=== PATIENT | female | born 1945 | race Caucasian/White ===

== ENCOUNTER → 2016-08-11 | Outpatient (CLI) | payer MEDICARE, OTHER ==
[~2016-08-11] MED LIST: CHOL4PAC16 PO; EST.625T PO; FOLI0.4T2 PO; LAMO100T69 PO; LAMO150T3 PO; LAMO200T14 PO; PHEN-633 PO
--- OUTSIDE RECORDS SUMMARY | 2016-08-11 14:31 | XMS REPORT | Continuity of Care Document ---
Author Author [facility] Organization [facility] Address Unknown Phone Unavailable Care Team Providers Care Escalator Installer Name Role Phone Ruma Zepeda PCP [phone] Source Comments Some departments are not documenting in the electronic medical record. If you do not see the information that you expected, contact Release of Information in the Health Information Management department at [phone] for further assistance in locating additional records.[facility] Active Allergies and Adverse Reactions No Known Allergies Current Medications Prescription Sig. Disp. Refills Start End Date Status Date folic acid 400 mcg tablet Take 800 mcg by mouth Active daily. lamoTRIgine XR(+) Take 250 mg by mouth Active (LAMICTAL XR) 250 mg daily. tablet acetaminophen(+) 650 mg Take 1 Tab by mouth every 30 Tab 08/16/19 Active tablet 4 hours as needed. 13 vitamins, multi Take 1 Tab by mouth 08/16/19 Active w/minerals 27-0.4 mg Tab daily. 13 meclizine (ANTIVERT) 25 Take 25 mg by mouth as Active mg tablet Needed. PHENYTOIN SODIUM EXTENDED Take by mouth. Take 400 Active (DILANTIN PO) mg for two days and then 300 mg for one day and then back to 400 mg.etc. Active Problems Problem Noted Date Pancytopenia ([facility]) 09/07/2012 Seizures ([facility]) 09/07/2012 Pituitary adenoma ([facility]) 09/01/2012 Overview: S/p resection of pituitary adenoma Pituitary tumor 08/13/2012 Malnutrition of moderate degree ([facility]) 08/13/2012 SIADH (syndrome of inappropriate ADH production) ([facility]) 08/13/2012 Depression 08/13/2012 Leukopenia 08/13/2012 Social History Tobacco Use Types Packs/Day Years Used Date Never Smoker Smokeless Tobacco: Never Used Alcohol Use Drinks/Week oz/Week Comments No Last Filed Vital Signs Vital Sign Reading Time Taken Blood Pressure 103/73 04/03/2015 11:51 AM CDT Pulse 123 04/03/2015 11:51 AM CDT Temperature 37.3 C (99.1 F) 04/09/2013 1:12 PM CDT Respiratory Rate - - Height 1.651 m (5' 5") 04/01/2016 9:39 AM CDT Weight 49.896 kg (110 lb) 04/01/2016 9:39 AM CDT Body Mass Index 18.31 04/01/2016 9:39 AM CDT Oxygen Saturation 100% 09/06/2012 11:27 AM CDT Plan of Care Health Maintenance Due Date Last Done Comments Hepatitis C Screening 1945 Physical (Comprehensive) 1951 Exam Pertussis Vaccine 1955 Tetanus Vaccine 1961 Breast Cancer Screening 1984 Colorectal Cancer 1994 Screening Shingles Vaccine 2004 Osteoporosis Screening 2009 Prevnar/Pneumovax (#1) 2009 Influenza Vaccine 02/12/2016 Results from Last 3 Months Not on file
--- NOTE | 2016-08-11 18:50 | Diagnostic Imaging Report ---
Three views of the lumbar spine. INDICATION: Low back pain. FINDINGS: There is minimal retrolisthesis of L5 over S1. The vertebral body heights are preserved. The discs demonstrate significant disc height loss at L4-L5, L5-S1 and to a lesser extent at the upper and mid lumbar spine levels. There are mild anterior osteophytes at all levels. No significant posterior osteophytes are seen. Right hip replacement prosthesis is seen. Minimal degenerative sclerotic changes in the SI joints noted. IMPRESSION: Advanced disc degenerative disease worse in the lower lumbar spine. Dictated by: Dictated on workstation # [id number]
--- NOTE | 2016-08-11 19:02 | Diagnostic Imaging Report ---
Three views of the sacrum and coccyx. INDICATION: Low back pain. FINDINGS: There is satisfactory alignment at the SI joints. Minimal degenerative sclerotic changes seen. Prominent degenerative changes in the lower lumbar spine noted. There is a right hip replacement. IMPRESSION: Mild degenerative changes in the SI joints. Significant degenerative changes in the lower lumbar spine. Dictated by: Dictated on workstation # [id number]
== END ==
LOC: RAD 14:27
PROVIDERS: ATTEND Nurse Practitioner Family
DX: M54.5 Low back pain (principal)
CPT/HCPCS: 72100; 72220

== ENCOUNTER 2016-11-04 09:24 | Outpatient (RCR) | payer MEDICARE, OTHER ==
[2016-11-04 09:39] LABS: BASOPHILS % (AUTO) 2 % (0-10); EOSINOPHILS % (AUTO) 1 % (0-10); LYMPHOCYTES # (AUTO) 0.7 X 10^3 (1.0-4.0); LYMPHOCYTES % (AUTO) 44 % (12-44); MEAN CORPUSCULAR HEMOGLOBIN 30 PG (25-34); MEAN CORPUSCULAR HGB CONC 34 G/DL (32-36); MEAN CORPUSCULAR VOLUME 89 FL (80-99); MEAN PLATELET VOLUME 8.8 FL (7.4-10.4); MONOCYTES # (AUTO) 0.4 X 10^3 (0.0-1.0); MONOCYTES % (AUTO) 28 % (0-12); NEUTROPHILS # (AUTO) 0.4 X 10^3 (1.8-7.8); NEUTROPHILS % (AUTO) 25 % (42-75); PLATELET COUNT 172 10^3/uL (130-400); RED CELL DISTRIBUTION WIDTH 14.3 % (10.0-14.5); WHITE BLOOD COUNT 1.5 10^3/uL (4.3-11.0)
[2016-11-04 10:02] LABS: ALANINE AMINOTRANSFERASE 8 U/L (0-55); ALBUMIN 3.9 G/DL (3.2-4.5); ANION GAP 10 MMOL/L (5-14); ASPARTATE AMINO TRANSFERASE 17 U/L (5-34); BILIRUBIN,TOTAL 0.3 MG/DL (0.1-1.0); BLOOD UREA NITROGEN 18 MG/DL (7-18); BUN/CREATININE RATIO 22; CALCIUM 8.9 MG/DL (8.5-10.1); CARBON DIOXIDE 24 MMOL/L (21-32); CHLORIDE 101 MMOL/L (98-107); CREATININE SERUM 0.82 MG/DL (0.60-1.30); GFR ESTIMATED > 60; GLUCOSE 131 MG/DL (70-105); LACTATE DEHYDROGENASE 176 U/L (125-220); POTASSIUM 3.7 MMOL/L (3.6-5.0); SODIUM 135 MMOL/L (135-145); TOTAL PROTEIN 9.1 G/DL (6.4-8.2)
[2016-11-04 11:07] LABS: PEP REPORT SEE PATH REPORT
[2016-11-05 03:41] LABS: LIGHT CHAIN KAPPA SERUM QUANT 129.22 mg/L (3.30-19.40); LIGHT CHAIN LAMBDA SERUM QUANT 47.67 mg/L (5.71-26.30)
[2016-11-09 11:32] LABS: CLIN PATHOLOGY REPORT FOOTNOTE; SERUM PROTEIN ELEC DETAIL L-17-0006869
== END 2017-02-02 | disposition home or self-care (01) ==
LOC: ONC 09:24
PROVIDERS: ATTEND Internal Medicine Hematology & Oncology
DX: D72.819 Decreased white blood cell count, unspecified (principal); D64.9 Anemia, unspecified; M06.9 Rheumatoid arthritis, unspecified; E72.11 Homocystinuria; D35.2 Benign neoplasm of pituitary gland; R56.9 Unspecified convulsions; Z79.899 Other long term (current) drug therapy
CPT/HCPCS: 36415; 80053; 83615; 83883; 84155; 84165; 85025; 99213

== ENCOUNTER → 2017-03-04 | Outpatient (CLI) | payer MEDICARE, OTHER ==
[~2017-03-04] MED LIST changes: +CEPH-507 PO; +FOLI0.8T PO; +LACT1TAB6 PO; +LAMO100T PO; +LAMO150T PO; +MECL-106 PO; +PHEN100C4 PO
--- NOTE | 2017-03-04 11:40 | Diagnostic Imaging Report ---
PROCEDURE: US Gallbladder. TECHNIQUE: Multiple real-time grayscale images were obtained over the right upper quadrant in various projections. INDICATION: Gallstones. FINDINGS: The visualized portions of the pancreas appear unremarkable. The liver is fairly homogeneous with no focal lesion. Hepatopetal flow in the portal vein is seen. There are multiple gallstones identified. No significant gallbladder wall thickening or pericholecystic fluid is seen. Sonographic Dong sign is negative. The CBD is obscured by the shadowing stones. The right kidney is the 9.4 cm in length with no hydronephrosis or focal lesion. No significant fluid collection is seen in the upper abdomen. IMPRESSION: Cholelithiasis. Dictated by: Dictated on workstation # [id number]
== END ==
LOC: RAD 08:23
PROVIDERS: ATTEND Family Medicine
DX: K80.20 Calculus of gallbladder without cholecystitis without obstruction (principal)
CPT/HCPCS: 76705

== ENCOUNTER 2017-03-29 14:31 | Outpatient (RCR) | payer MEDICARE, OTHER ==
[~2017-03-29 14:31] MED LIST changes: -CEPH-507 PO; -FOLI0.8T PO; -LACT1TAB6 PO; -LAMO100T PO; -LAMO150T PO; -MECL-106 PO; -PHEN100C4 PO
[2017-04-03] MEDS ORDERED: LAMO100T PO (15:32)
[2017-04-03] MEDS ORDERED: FOLI0.8T PO (15:32)
[2017-04-03] MEDS ORDERED: LAMO150T PO (15:32)
[2017-04-03] MEDS ORDERED: PHEN100C4 PO (15:32)
[2017-04-05] MEDS ORDERED: MECL-106 PO (09:17)
[2017-04-05] MEDS ORDERED: PHEN100C4 PO (09:17)
[2017-04-05] MEDS ORDERED: LACT1TAB6 PO (09:17)
[2017-04-05] MEDS ORDERED: CEPH-507 PO (09:17)
== END 2017-05-03 11:39 | disposition home or self-care (01) ==
PROVIDERS: ATTEND Family Medicine
DX: R42 Dizziness and giddiness (principal); R53.1 Weakness

== ENCOUNTER 2017-04-02 22:17 | Observation (INO) | payer MEDICARE, OTHER ==
[~2017-04-02] VITALS: Ht 167.6 cm; Wt 49.7 kg
[2017-04-02] MEDS ORDERED: NS IV 1000 ML 1,000 ML IV ONE (22:18)
--- OUTSIDE RECORDS SUMMARY | 2017-04-02 22:21 | XMS REPORT | Clinical Summary ---
Author Author [facility] Organization [facility] Address Unknown Phone Unavailable Care Team Providers Care Coconut Boiler Name Role Phone PCP Unavailable Source Comments Some departments are not documenting in the electronic medical record. If you do not see the information that you expected, contact Release of Information in the Health Information Management department at [phone] for further assistance in locating additional records.[facility] Allergies No Known Allergies Current Medications Prescription Sig. Disp. Refills Start End Date Status Date folic acid 400 mcg tablet Take 800 mcg by mouth Active daily. acetaminophen(+) 650 mg Take 1 Tab by [...] day and then back to 400 mg.etc. lamoTRIgine (LAMICTAL) TAKE ONE TABLET BY MOUTH 30 Tab 10 12/01/19 Active 150 mg tablet ONCE DAILY AT BEDTIME 17 lamoTRIgine (LAMICTAL) TAKE ONE TABLET BY MOUTH 30 Tab 10 12/01/19 Active 100 mg tablet ONCE DAILY IN THE MORNING 17 Active Problems Problem Noted Date Pancytopenia ([facility]) 09/07/2012 Seizures ([facility]) 09/07/2012 Pituitary adenoma ([facility]) 09/01/2012 Overview: S/p resection of pituitary adenoma Pituitary tumor 08/13/2012 Malnutrition of moderate degree ([facility]) 08/13/2012 SIADH (syndrome of inappropriate ADH production) ([facility]) 08/13/2012 Depression 08/13/2012 Leukopenia 08/13/2012 Family History Medical History Relation Name Comments Cancer Brother Hypertension Mother Seizures Sister Relation Name Status Comments Brother Mother Sister Social History Tobacco Use Types Packs/Day Years Used Date Never Smoker Smokeless Tobacco: Never Used Alcohol Use Drinks/Week oz/Week Comments No Sex Assigned at Date Recorded Not on file Last Filed Vital Signs Vital Sign Reading Time Taken Blood Pressure 103/73 04/03/2015 11:51 AM CDT Pulse 123 04/03/2015 11:51 AM CDT Temperature 37.3 C (99.1 F) 04/09/2013 1:12 PM CDT Respiratory Rate - - Oxygen Saturation 100% 09/06/2012 11:27 AM CDT Inhaled Oxygen - - Concentration Weight 49.9 kg (110 lb) 04/01/2016 9:39 AM CDT Height 165.1 cm (5' 5") 04/01/2016 9:39 AM CDT Body Mass Index 18.3 04/01/2016 9:39 AM CDT Plan of Treatment Health Maintenance Due Date Last Done Comments HEPATITIS C SCREENING 1945 PHYSICAL (COMPREHENSIVE) 1952 EXAM PERTUSSIS VACCINE 1955 TETANUS VACCINE 1961 BREAST CANCER SCREENING 1984 COLORECTAL CANCER 1994 SCREENING SHINGLES VACCINE 2004 OSTEOPOROSIS SCREENING 2009 PREVNAR/PNEUMOVAX (#1) 2009 INFLUENZA VACCINE 01/11/2017 Results Not on filefrom Last 3 Months
--- OUTSIDE RECORDS SUMMARY | 2017-04-02 22:22 | XMS REPORT | Continuity of Care Document ---
Author Author [facility] Organization [facility] Address Unknown Phone Unavailable Allergies Active Description Code Type Severity Reaction Onset Reported/Identified Relationship to Patient Clinical Status Yes No Known Drug Allergies [id number] Drug Allergy Unknown N/ A 02/09/2010 Medications Problems Date Dx Coded Attending Type Code Diagnosis Diagnosed By 05/12/1204 MICHAEL LYNNE MD Ot M06.9 RHEUMATOID ARTHRITIS, UNSPECIFIED 05/12/1204 MICHAEL LYNNE MD Ot R26.9 UNSPECIFIED ABNORMALITIES OF GAIT AND MO 11/26/2012 ANTONIA TALLEY 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 11/26/2012 ANTONIA TALLEY Ot 288.00 NEUTROPENIA, UNSPECIFIED 12/18/2012 JEANE NAGEL APRN Ot 780.4 DIZZINESS AND GIDDINESS 12/18/2012 JEANE NAGEL APRN Ot 780.79 OTH MALAISE FATIGUE 12/18/2012 JEANE NAGEL MATERIAL DAMAGE APPRAISER Ot 783.21 LOSS OF WEIGHT 12/18/2012 JEANE NAGEL APRN Ot V57.1 PHYSICAL THERAPY NEC 12/18/2012 JEANE NAGEL MATERIAL DAMAGE APPRAISER Ot V57.21 ENCOUNTER FOR OCCUPATIONAL THERAPY 12/18/2012 JEANE NAGEL MATERIAL DAMAGE APPRAISER Ot V58.49 OTHER SPECIFIED AFTERCARE FOLLOWING SURG 04/15/2013 ANTONIA TALLEY Ot 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 04/15/2013 ANTONIA TALLEY N Ot 288.50 LEUKOCYTOPENIA, UNSPECIFIED 04/15/2013 ANTONIA TALLEY Ot 345.90 EPILEPSY UNSPEC W/O MENTION INTRACTABLE 04/15/2013 ANTONIA TALLEY Ot 714.0 RHEUMATOID ARTHRITIS 04/15/2013 ANTONIA TALLEY N Ot 780.4 DIZZINESS AND GIDDINESS 04/15/2013 ANTONIA TALLEY Ot V58.69 OTH MED,LT,CURRENT USE 07/31/2013 MAYANK, BOBAN N 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 07/31/2013 MAYANK, BOBAN N Ot 288.00 NEUTROPENIA, UNSPECIFIED 12/09/2013 MAYANK, BOBAN N Ot 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 12/09/2013 MAYANK, BOBAN N Ot 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 12/09/2013 MAYANK, BOBAN N 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 12/09/2013 MAYANK BOBAN N Ot 288.00 NEUTROPENIA, UNSPECIFIED 12/09/2013 MAYANK, BOBAN N Ot 345.90 EPILEPSY UNSPEC W/O MENTION INTRACTABLE 12/09/2013 MAYANK, BOBAN N Ot 714.0 RHEUMATOID ARTHRITIS 12/09/2013 MAYANK, BOBAN N Ot V58.69 OTH MED,LT,CURRENT USE 04/25/2014 MAYANK BOBAN N Ot 227.3 04/25/2014 MAYANK, BOBAN N Ot 270.4 04/25/2014 MAYANK, BOBAN N Ot 273.1 04/25/2014 MAYANK, BOBAN N Ot 288.00 04/25/2014 MAYANK, BOBAN N Ot 345.90 04/25/2014 MAYANK, BOBAN N Ot 714.0 04/25/2014 MAYANK, BOBAN N Ot V58.69 05/28/2014 MAYANK, BOBAN N Ot 227.3 05/28/2014 MAYANK, BOBAN N Ot 270.4 05/28/2014 MAYANK, BOBAN N Ot 273.1 05/28/2014 MAYANK, BOBAN N Ot 288.00 05/28/2014 MAYANK, BOBAN N Ot 345.90 05/28/2014 MAYANK, BOBAN N Ot 714.0 05/28/2014 MAYANK, BOBAN N Ot V58.69 06/19/2014 MAYANK, BOBAN N Ot 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 06/19/2014 MAYANK, BOBAN N Ot 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90 11/29/2014 ROSECAROLE S BAND NAILER Ot V58.65 11/29/2014 ROSECAROLE S BAND NAILER Ot V58.69 04/03/2015 MAYANK, BOBAN N Ot 227.3 04/03/2015 MAYANK, BOBAN N Ot 270.4 04/03/2015 MAYANK, BOBAN N Ot 273.1 04/03/2015 MAYANK, BOBAN N Ot 288.00 04/03/2015 MAYANK, BOBAN N Ot 345.90 04/03/2015 MAYANK, BOBAN N Ot 714.0 04/03/2015 MAYANK, BOBAN N Ot V58.69 04/24/2015 MAYANK, BOBAN N Ot 227.3 04/24/2015 MAYANK, BOBAN N Ot 270.4 04/24/2015 MAYANK, BOBAN N Ot 273.1 04/24/2015 MAYANK, BOBAN N Ot 288.00 04/24/2015 MAYANK, BOBAN N Ot 345.90 04/24/2015 MAYANK, BOBAN N Ot 714.0 04/24/2015 MAYANK, BOBAN N Ot V58.69 05/21/2015 BRIANNA PANDEY MD Ot G40.909 05/29/2015 MAYANK, BOBAN N Ot 227.3 05/29/2015 MAYANK, BOBAN N Ot 270.4 05/29/2015 MAYANK, BOBAN N Ot 273.1 05/29/2015 MAYANK, BOBAN N Ot 288.00 05/29/2015 MAYANK, BOBAN N Ot 345.90 05/29/2015 MAYANK, BOBAN N Ot 714.0 05/29/2015 MAYANK, BOBAN N Ot V58.69 06/03/2015 JUSTINE BULLOCK MATERIAL DAMAGE APPRAISER Ot K52.9 NONINFECTIVE GASTROENTERITIS AND COLITIS 06/03/2015 JUSTINE BULLOCK MATERIAL DAMAGE APPRAISER Ot 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 INTEST, PART UNSP, W/O PERF 06/03/2015 JUSTINE BULLOCK MATERIAL DAMAGE APPRAISER Ot K80.20 CALCULUS OF GALLBLADDER W/O CHOLECYSTITI 06/18/2015 MAYANKBREANA BANDAAN N Ot 227.3 06/18/2015 MAYANK, BOBAN N Ot 270.4 06/18/2015 MAYANK, BOBAN N Ot 273.1 06/18/2015 MAYANK, BOBAN N Ot 288.00 06/18/2015 MAYANK, BOBAN N Ot 345.90 06/18/2015 MAYANK, BOBAN N Ot 714.0 06/18/2015 MAYANK, BOBAN N Ot D72.819 06/18/2015 MAYANKBREANA BANDAAN N Ot R30.0 06/18/2015 MAYANK, BOBAN N Ot R39.15 06/18/2015 MAYANK, BOBBARAK N Ot V58.69 06/18/2015 MAYANK, BOBAN N Ot Z79.899 06/24/2015 JUSTINE BULLOCK MATERIAL DAMAGE APPRAISER Ot R19.7 07/30/2015 ANTONIA TALLEY N Ot D72.819 DECREASED WHITE BLOOD CELL COUNT, UNSPEC 07/30/2015 MAYANK BOBBARAK N Ot R30.0 DYSURIA 07/30/2015 MAYANKANTONIA BANDA N Ot R39.15 URGENCY OF URINATION 07/30/2015 BREANA TALLEYAN N Ot Z79.899 OTHER CONCESSION WORKER (CURRENT) DRUG THERAPY 10/31/2015 CAROLE ROSE BAND NAILER Ot D70.9 NEUTROPENIA, UNSPECIFIED 11/21/2015 CAROLE ROSE BAND NAILER Ot D70.9 NEUTROPENIA, UNSPECIFIED 11/25/2015 CAROLE ROSE BAND NAILER Ot D70.9 NEUTROPENIA, UNSPECIFIED 03/12/2016 GUERA CUEVAS, MICHAEL Hendrix Ot M06.9 RHEUMATOID ARTHRITIS, UNSPECIFIED 03/12/2016 GUERA CUEVAS, MICHAEL Hendrix Ot R26.81 UNSTEADINESS ON FEET 03/17/2016 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 03/17/2016 Ot 511.9 PLEURAL EFFUSION NOS 03/17/2016 Ot 518.89 OTHER DISEASES OF LUNG, NEC 03/17/2016 Ot 786.2 COUGH 03/17/2016 Ot 574.20 CHOLELITHIASIS NOS 03/17/2016 Ot 793.1 NOSP (ABN) FINDINGS ON RADIOLOGICAL OT 03/17/2016 Ot 793.1 NOSP (ABN) FINDINGS ON RADIOLOGICAL OT 03/17/2016 Ot V81.5 SCREEN FOR NEPHROPATHY 03/17/2016 Ot 486 PNEUMONIA, ORGANISM NOS 03/17/2016 Ot 486 PNEUMONIA, ORGANISM NOS 03/17/2016 Ot 714.0 RHEUMATOID ARTHRITIS 03/17/2016 Ot 733.00 OSTEOPOROSIS NOS 03/17/2016 CAROLE ROSE BAND NAILER Ot 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 03/17/2016 CAROLE ROSE BAND NAILER Ot 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 03/17/2016 CAROLE ROSE BAND NAILER Ot 288.50 LEUKOCYTOPENIA, UNSPECIFIED 03/17/2016 CAROLE ROSE BAND NAILER Ot 345.90 EPILEPSY UNSPEC W/O MENTION INTRACTABLE 03/17/2016 CAROLE ROSE BAND NAILER Ot 714.0 RHEUMATOID ARTHRITIS 03/17/2016 CAROLE ROSE BAND NAILER Ot 780.4 DIZZINESS AND GIDDINESS 03/17/2016 CAROLE ROSE BAND NAILER Ot V58.69 OT MED,LT,CURRENT USE 03/17/2016 ANTONIA TALLEY Ot 574.10 CHOLELITH W CHOLECYS NEC 03/17/2016 ANTONIA TALLEY Ot 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 03/17/2016 LILIANE CUEVAS, ANDREI Mendez Ot V76.12 OTH SCREEN MAMMO-MALIGN NEOPLASM OF DANNY 03/17/2016 CAROLE ROSE BAND NAILER Ot 288.00 NEUTROPENIA, UNSPECIFIED 03/17/2016 CAROLE ROSE S BAND NAILER Ot 288.50 LEUKOCYTOPENIA, UNSPECIFIED 03/17/2016 CAROLE ROSE BAND NAILER Ot 574.10 CHOLELITH W CHOLECYS NEC 03/17/2016 CAROLE ROSE BAND NAILER Ot 714.0 RHEUMATOID ARTHRITIS 03/17/2016 CAROLE ROSE S BAND NAILER Ot 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 03/17/2016 CAROLE ROSE BAND NAILER Ot V58.69 OTH MED,LT,CURRENT USE 03/17/2016 CAROLE ROSE BAND NAILER Ot 288.00 NEUTROPENIA, UNSPECIFIED 03/17/2016 CAROLE ROSE S BAND NAILER Ot 288.50 LEUKOCYTOPENIA, UNSPECIFIED 03/17/2016 CAROLE ROSE S BAND NAILER Ot 564.00 UNSPEC CONSTIPATION 03/17/2016 CAROLE ROSE S BAND NAILER Ot 714.0 RHEUMATOID ARTHRITIS 03/17/2016 ROSECAROLE Torres S BAND NAILER Ot 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 03/17/2016 CAROLE ROSE S BAND NAILER Ot 733.90 BONE CARTILAGE DIS NOS 03/17/2016 CAROLE ROSE S BAND NAILER Ot V58.65 LONG-TERM(CURRENT)USE OF STEROIDS 03/17/2016 CAROLE ROSE S BAND NAILER Ot V58.69 OTH MED,LT,CURRENT USE 03/17/2016 DANNIE CUEVAS, BRIANNA Rajput Ot G40.909 EPILEPSY, UNSP, NOT INTRACTABLE, WITHOUT 03/17/2016 JUSTINE BULLOCK APRN Ot R19.7 DIARRHEA, UNSPECIFIED 03/17/2016 MAYANK BOBAN N Ot 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 03/17/2016 MAYANK, BOBAN N Ot 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 03/17/2016 MAYANK BOBAN N 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 03/17/2016 MAYANK BOBAN N Ot 288.00 NEUTROPENIA, UNSPECIFIED 03/17/2016 MAYANK, BOBAN N Ot 345.90 EPILEPSY UNSPEC W/O MENTION INTRACTABLE 03/17/2016 MAYANK BOBAN N Ot 714.0 RHEUMATOID ARTHRITIS 03/17/2016 MAYANK BOBAN N Ot D72.819 DECREASED WHITE BLOOD CELL COUNT, UNSPEC 03/17/2016 MAYANK BOBAN N Ot R30.0 DYSURIA 03/17/2016 MAYANK BOBAN N Ot R39.15 URGENCY OF URINATION 03/17/2016 MAYANK, BOBAN N Ot V58.69 OTH MED,LT,CURRENT USE 03/17/2016 MAYANK, BOBAN N Ot Z79.899 OTHER SENIOR LIVING (CURRENT) DRUG THERAPY 03/17/2016 ROSE CAROLE S BAND NAILER Ot D70.9 NEUTROPENIA, UNSPECIFIED 03/17/2016 MICHAEL LYNNE MD Ot M06.9 RHEUMATOID ARTHRITIS, UNSPECIFIED 03/17/2016 MICHAEL LYNNE MD Ot R26.81 UNSTEADINESS ON FEET 03/17/2016 MICHAEL LYNNE MD Ot M06.9 RHEUMATOID ARTHRITIS, UNSPECIFIED 03/17/2016 MICHAEL LYNNE MD Ot R26.81 UNSTEADINESS ON FEET 04/22/2016 MICHAEL LYNNE MD Ot M06.9 RHEUMATOID ARTHRITIS, UNSPECIFIED 04/22/2016 MICHAEL LYNNE MD Ot R26.9 UNSPECIFIED ABNORMALITIES OF GAIT AND MO 09/09/2016 JAMIE CASAREZ MATERIAL DAMAGE APPRAISER Ot M54.5 LOW BACK PAIN 09/10/2016 JAMIE CASAREZ MATERIAL DAMAGE APPRAISER Ot M54.5 LOW BACK PAIN 10/31/2016 CAROLE ROSE BAND NAILER Ot D70.9 NEUTROPENIA, UNSPECIFIED 10/31/2016 CAROLE ROSE BAND NAILER Ot D70.9 NEUTROPENIA, UNSPECIFIED 10/31/2016 CAROLE ROSE BAND NAILER Ot D70.9 NEUTROPENIA, UNSPECIFIED 11/05/2016 ANTONIA TALLEY N Ot 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 11/05/2016 ANTONIA TALLEY N Ot 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 11/05/2016 ANTONIA TALLEY N 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 11/05/2016 ANTONIA TALLEY N Ot 288.00 NEUTROPENIA, UNSPECIFIED 11/05/2016 MAYANK BOBAN N Ot 345.90 EPILEPSY UNSPEC W/O MENTION INTRACTABLE 11/05/2016 ANTONIA TALLEY N Ot 714.0 RHEUMATOID ARTHRITIS 11/05/2016 ANTONIA TALLEY N Ot D72.819 DECREASED WHITE BLOOD CELL COUNT, UNSPEC 11/05/2016 MAYANKBREANA BANDAAN N Ot R30.0 DYSURIA 11/05/2016 MAYANK BOBAN N Ot R39.15 URGENCY OF URINATION 11/05/2016 BREANA TALLEYAN N Ot V58.69 OTH MED,LT,CURRENT USE 11/05/2016 BREANA TALLEYAN N Ot Z79.899 OTHER SENIOR LIVING (CURRENT) DRUG THERAPY 12/10/2016 ANTONIA TALLEY N Ot D35.2 BENIGN NEOPLASM OF PITUITARY GLAND 12/10/2016 ANTONIA TALLEY N Ot D64.9 ANEMIA, UNSPECIFIED 12/10/2016 MAYANK, BREANAAN N Ot D72.819 DECREASED WHITE BLOOD CELL COUNT, UNSPEC 12/10/2016 MAYANK, ANTONIA N Ot 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 12/10/2016 MAYANK, ANTONIA N Ot M06.9 RHEUMATOID ARTHRITIS, UNSPECIFIED 12/10/2016 MAYANK, ANTONIA N Ot R56.9 UNSPECIFIED CONVULSIONS 12/10/2016 MAYANKBREANAAN N Ot Z79.899 OTHER SENIOR LIVING (CURRENT) DRUG THERAPY 12/21/2016 MAYANKANTONIA N Ot D35.2 BENIGN NEOPLASM OF PITUITARY GLAND 12/21/2016 MAYANK, BOBAN N Ot D64.9 ANEMIA, UNSPECIFIED 12/21/2016 MAYANK, BOBAN N Ot D72.819 DECREASED WHITE BLOOD CELL COUNT, UNSPEC 12/21/2016 MAYANK, BOBBARAK N Ot 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 12/21/2016 MAYANKANTONIA BANDA N Ot M06.9 RHEUMATOID ARTHRITIS, UNSPECIFIED 12/21/2016 MAYANK, BOBAN N Ot R56.9 UNSPECIFIED CONVULSIONS 12/21/2016 MAYANK, BOBAN N Ot Z79.899 OTHER SENIOR LIVING (CURRENT) DRUG THERAPY 01/21/2017 MAYANKANTONIA N Ot D35.2 BENIGN NEOPLASM OF PITUITARY GLAND 01/21/2017 MAYANK BOBBARAK N Ot D64.9 ANEMIA, UNSPECIFIED 01/21/2017 MAYANK, BOBAN N Ot D72.819 DECREASED WHITE BLOOD CELL COUNT, UNSPEC 01/21/2017 AMYANK BOBBARAK N Ot 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 01/21/2017 MAYANKANTONIA N Ot M06.9 RHEUMATOID ARTHRITIS, UNSPECIFIED 01/21/2017 MAYANK, BOBAN N Ot R56.9 UNSPECIFIED CONVULSIONS 01/21/2017 MAYANK, BOBAN N Ot Z79.899 OTHER SENIOR LIVING (CURRENT) DRUG THERAPY 02/02/2017 MAYANK, BOBAN N Ot D35.2 BENIGN NEOPLASM OF PITUITARY GLAND 02/02/2017 MAYANK, BOBAN N Ot D64.9 ANEMIA, UNSPECIFIED 02/02/2017 MAYANK, BOBAN N Ot D72.819 DECREASED WHITE BLOOD CELL COUNT, UNSPEC 02/02/2017 MAYANK, BOBAN N Ot 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 02/02/2017 ANTONIA TALLEY Ot M06.9 RHEUMATOID ARTHRITIS, UNSPECIFIED 02/02/2017 ANTONIA TALLEY Ot R56.9 UNSPECIFIED CONVULSIONS 02/02/2017 ANTONIA TALLEY Ot Z79.899 OTHER SENIOR LIVING (CURRENT) DRUG THERAPY 02/08/2017 ANTONIA TALLEY Ot D35.2 BENIGN NEOPLASM OF PITUITARY GLAND 02/08/2017 ANTONIA TALLEY Ot D64.9 ANEMIA, UNSPECIFIED 02/08/2017 ANTONIA TALLEY Ot D72.819 DECREASED WHITE BLOOD CELL COUNT, UNSPEC 02/08/2017 ANTONIA TALLEY Ot 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 02/08/2017 ANTONIA TALLEY Ot M06.9 RHEUMATOID ARTHRITIS, UNSPECIFIED 02/08/2017 ANTONIA TALLEY Ot R56.9 UNSPECIFIED CONVULSIONS 02/08/2017 ANTONIA TALLEY Ot Z79.899 OTHER SENIOR LIVING (CURRENT) DRUG THERAPY 03/04/2017 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 03/04/2017 Ot 714.0 RHEUMATOID ARTHRITIS 03/04/2017 Ot 733.00 OSTEOPOROSIS NOS 03/04/2017 CAROLE ROSE BAND NAILER Ot 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 03/04/2017 CAROLE ROSE BAND NAILER Ot 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 03/04/2017 CAROLE ROSE BAND NAILER Ot 288.50 LEUKOCYTOPENIA, UNSPECIFIED 03/04/2017 CAROLE ROSE BAND NAILER Ot 345.90 EPILEPSY UNSPEC W/O MENTION INTRACTABLE 03/04/2017 CAROLE ROSE BAND NAILER Ot 714.0 RHEUMATOID ARTHRITIS 03/04/2017 CAROLE ROSE BAND NAILER Ot 780.4 DIZZINESS AND GIDDINESS 03/04/2017 CAROLE ROSE BAND NAILER Ot V58.69 OTH MED,LT,CURRENT USE 03/04/2017 ANTONIA TALLEY Eugene Ot 574.10 CHOLELITH W CHOLECYS NEC 03/04/2017 ANTONIA TALLEY Eugene Ot 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 03/04/2017 LILIANE CUEVAS, ANDREI Mendez Ot V76.12 OTH SCREEN MAMMO-MALIGN NEOPLASM OF DANNY 03/04/2017 CAROLE ROSE BAND NAILER Ot 288.00 NEUTROPENIA, UNSPECIFIED 03/04/2017 CAROLE ROSE BAND NAILER Ot 288.50 LEUKOCYTOPENIA, UNSPECIFIED 03/04/2017 ROSECAROLE Torres BAND NAILER Ot 574.10 CHOLELITH W CHOLECYS NEC 03/04/2017 ROSECAROLE Torres BAND NAILER Ot 714.0 RHEUMATOID ARTHRITIS 03/04/2017 ROSECAROLE BAND NAILER Ot 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 03/04/2017 ROSE CAROLE Torres BAND NAILER Ot V58.69 OTH MED,LT,CURRENT USE 03/04/2017 CAROLE ROSE BAND NAILER Ot 288.00 NEUTROPENIA, UNSPECIFIED 03/04/2017 CAROLE ROSE BAND NAILER Ot 288.50 LEUKOCYTOPENIA, UNSPECIFIED 03/04/2017 ROSE CAROLE Torres BAND NAILER Ot 564.00 UNSPEC CONSTIPATION 03/04/2017 ROSE CAROLE Torres BAND NAILER Ot 714.0 RHEUMATOID ARTHRITIS 03/04/2017 ROSE CAROLE Torres BAND NAILER Ot 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 03/04/2017 ROSE CAROLE Torres BAND NAILER Ot 733.90 BONE CARTILAGE DIS NOS 03/04/2017 ROSE CAROLE Torres BAND NAILER Ot V58.65 LONG-TERM(CURRENT)USE OF STEROIDS 03/04/2017 ROSE CAROLE Torres BAND NAILER Ot V58.69 OTH MED,LT,CURRENT USE 03/04/2017 DANNIE CUEVAS, BRIANNA Rajput Ot G40.909 EPILEPSY, UNSP, NOT INTRACTABLE, WITHOUT 03/04/2017 JUSTINE BULLOCK MATERIAL DAMAGE APPRAISER Ot R19.7 DIARRHEA, UNSPECIFIED 03/04/2017 CAROLE ROSE Brian BAND NAILER Ot D70.9 NEUTROPENIA, UNSPECIFIED 03/04/2017 JAMIE CASAREZ APRN Ot M54.5 LOW BACK PAIN 03/04/2017 ANTONIA TALLEY Ot D35.2 BENIGN NEOPLASM OF PITUITARY GLAND 03/04/2017 ANTONIA TALLEY Ot D64.9 ANEMIA, UNSPECIFIED 03/04/2017 ANTONIA TALLEY Ot D72.819 DECREASED WHITE BLOOD CELL COUNT, UNSPEC 03/04/2017 ANTONIA TALLEY Ot 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 03/04/2017 ANTONIA TALLEY Ot M06.9 RHEUMATOID ARTHRITIS, UNSPECIFIED 03/04/2017 ANTONIA TALLEY Ot R56.9 UNSPECIFIED CONVULSIONS 03/04/2017 ANTONIA TALLEY Ot Z79.899 OTHER SENIOR LIVING (CURRENT) DRUG THERAPY 03/15/2017 MICHAEL LYNNE MD Ot R42 DIZZINESS AND GIDDINESS 03/15/2017 MICHAEL LYNNE MD Ot R53.1 WEAKNESS Procedures Results Encounters ACCT No. Visit Date/Time Discharge Status Pt. Type Provider Facility Loc./Unit Complaint [id number] 03/14/2017 14:53:00 2016 23:59:59 CLS Outpatient MICHAEL LYNNE MD [facility] REHAB VERTIGO;WEAKNESS [id number] 03/04/2017 08:23:00 2016 23:59:59 CLS Outpatient MICHAEL LYNNE MD [facility] RAD GALLSTONES [id number] 02/03/2017 00:11:00 2016 23:59:59 CLS Preadmit ANTONIA TALLEY [facility] ONC [id number] 11/04/2016 09:24:00 2016 00:01:00 DIS Outpatient ANTONIA TALLEY [facility] ONC [id number] 08/11/2016 14:27:00 2016 23:59:59 CLS Outpatient JAMIE CASAREZ APRN [facility] RAD LOW BACK/BUTTOCKS PAIN [id number] 04/22/2016 09:00:00 2015 12:05:00 DIS Outpatient MICHAEL LYNNE MD [facility] REHAB GAIT INSTABILITY;RA [id number] 03/11/2016 11:07:00 2015 17:00:00 DIS Outpatient MICHAEL LYNNE MD [facility] REHAB GAIT INSTABILITY;RA [id number] 10/30/2015 14:20:00 2015 23:59:59 CLS Outpatient CAROLE ROSE [facility] ONC [id number] 05/01/2015 09:25:00 2015 00:01:00 DIS Outpatient ANTONIA TALLEY [facility] ONC [id number] 06/04/2015 09:53:00 2014 23:59:59 CLS Outpatient JUSTINE BULLOCK MATERIAL DAMAGE APPRAISER [facility] LAB DIARRHEA [id number] 06/03/2015 10:37:00 2014 14:59:00 DIS Emergency JUSTINE BULLOCK MATERIAL DAMAGE APPRAISER [facility] ER DIARRHEA [id number] 05/01/2015 10:05:00 2014 23:59:59 CLS Outpatient DANNIE CUEVAS, BRIANNA Rajput [facility] LAB [id number] 09/20/2014 12:42:00 2014 23:59:59 CLS Outpatient CAROLE ROSE BAND NAILER [facility] ONC [id number] 03/21/2014 13:00:00 2014 00:01:00 DIS Outpatient ANTONIA TALLEY Eugene [facility] ONC [id number] 12/11/2013 14:25:00 2013 23:59:59 CLS Outpatient CAROLE ROSE BAND NAILER [facility] ONC [id number] 09/10/2013 10:22:00 2013 00:01:00 DIS Outpatient ANTONIA TALLEY Eugene [facility] ONC [id number] 12/04/2013 07:26:00 2013 23:59:59 CLS Outpatient ANTONIA TALLEY Eugene [facility] RAD SFLT SYNDROME [id number] 11/29/2013 10:40:00 2013 23:59:59 CLS Outpatient ANDREI MOMIN MD [facility] RAD SCREENING [id number] 05/02/2013 13:07:00 2013 00:01:00 DIS Outpatient ANTONIA TALLEY Eugene [facility] ONC [id number] 04/30/2013 14:22:00 2012 23:59:59 CLS Outpatient CAROLE ROSE BAND NAILER [facility] ONC [id number] 01/15/2013 12:46:00 2012 00:01:00 DIS Outpatient ANTONIA TALLEY Eugene [facility] ONC [id number] 11/28/2012 09:00:00 2012 00:01:00 DIS Outpatient JEANE NAGEL MAX [facility] REHAB S/P BRAIN SURGERY [id number] 10/26/2012 11:19:00 2012 00:01:00 DIS Outpatient ANTONIA TALLEY Eugene [facility] ONC [id number] 03/17/2016 10:01:00 Document Registration [id number] 09/15/2011 11:51:00 Document Registration [id number] 02/01/2011 10:38:00 Document Registration [id number] 01/18/2011 11:10:00 Document Registration [id number] 01/05/2011 09:29:00 Document Registration [id number] 01/04/2011 12:32:00 Document Registration [id number] 12/31/2010 10:33:00 Document Registration [id number] 02/12/2010 00:00:00 Document Registration
[2017-04-02] MEDS ORDERED: LORazepam INJ 2 MG/ML (ATIVAN) VIAL ONE (22:32)
[2017-04-02 22:38] VITALS: BP 146/98
[2017-04-02 22:44] LABS: BASOPHILS % (AUTO) 2 % (0-10); EOSINOPHILS # (AUTO) 0.1 10^3/uL (0.0-0.3); EOSINOPHILS % (AUTO) 4 % (0-10); LYMPHOCYTES # (AUTO) 1.5 X 10^3 (1.0-4.0); LYMPHOCYTES % (AUTO) 58 % (12-44); MEAN CORPUSCULAR HEMOGLOBIN 30 PG (25-34); MEAN CORPUSCULAR HGB CONC 35 G/DL (32-36); MEAN CORPUSCULAR VOLUME 87 FL (80-99); MEAN PLATELET VOLUME 8.9 FL (7.4-10.4); MONOCYTES # (AUTO) 0.6 X 10^3 (0.0-1.0); MONOCYTES % (AUTO) 23 % (0-12); NEUTROPHILS # (AUTO) 0.4 X 10^3 (1.8-7.8); NEUTROPHILS % (AUTO) 14 % (42-75); PLATELET COUNT 171 10^3/uL (130-400); RED BLOOD COUNT 4.43 10^6/uL (4.35-5.85); RED CELL DISTRIBUTION WIDTH 13.1 % (10.0-14.5); WHITE BLOOD COUNT 2.6 10^3/uL (4.3-11.0)
[2017-04-02] MEDS ORDERED: LORazepam INJ 2 MG/ML (ATIVAN) VIAL IVP ONE (22:45)
[2017-04-02 23:00] VITALS: BP 123/67
[2017-04-02 23:02] LABS: BAND NEUTROPHILS 4 %; BASOPHILS % (MANUAL) 0 %; EOSINOPHILS % (MANUAL) 1 %; LYMPHOCYTES % (MANUAL) 52 %; NEUTROPHILS % (MANUAL) 10 %; REACTIVE LYMPHOCYTES 14 %
[2017-04-02 23:03] LABS: ROULEAUX MOD
[2017-04-02 23:04] LABS: ALANINE AMINOTRANSFERASE 9 U/L (0-55); ALBUMIN 3.6 GM/DL (3.2-4.5); ANION GAP 16 MMOL/L (5-14); ASPARTATE AMINO TRANSFERASE 16 U/L (5-34); BILIRUBIN,TOTAL 0.5 MG/DL (0.1-1.0); BLOOD UREA NITROGEN 23 MG/DL (7-18); BUN/CREATININE RATIO 24; CALCIUM 8.8 MG/DL (8.5-10.1); CARBON DIOXIDE 22 MMOL/L (21-32); CHLORIDE 100 MMOL/L (98-107); CREATINE KINASE 40 U/L (29-168); CREATININE SERUM 0.94 MG/DL (0.60-1.30); GFR ESTIMATED 59; GLUCOSE 185 MG/DL (70-105); POTASSIUM 2.9 MMOL/L (3.6-5.0); SODIUM 138 MMOL/L (135-145); TOTAL PROTEIN 7.9 GM/DL (6.4-8.2)
[2017-04-02 23:10] LABS: INR 0.9 (0.8-1.4); PROTHROMBIN TIME PATIENT 11.7 SEC (12.2-14.7)
[2017-04-02 23:15] VITALS: BP 138/70
[2017-04-02 23:24] LABS: TROPONIN I < 0.30 NG/ML (<0.30); VALPROIC ACID < 2.0 UG/ML (50.0-100.0)
[2017-04-02 23:30] VITALS: BP 138/72
[2017-04-02] MEDS ORDERED: PHENYTOIN 250 MG/5 ML INJ (DILANTIN) VIAL IV ONE (23:30)
[2017-04-02] MEDS ORDERED: NS (IVPB) 100 ML ONE (23:42)
[2017-04-03] VITALS (23 sets, daily range): BP systolic 96–162; BP diastolic 45–80
--- NOTE | 2017-04-03 00:42 | ED Neurological Problem ---
General Chief Complaint: Neurological Problems Stated Complaint: SEIZURE Source: patient (PT IS POST-ICTAL AND SOMEWHAT CONFUSED, WITH SLOW MENTATION AND IS UNABLE TO GIVE ANY RELEVANT INFORMATION ON ARRIVAL), EMS, spouse History of Present Illness Time seen by provider: 22:12 Initial Comments PT ARRIVES VIA POV FROM HOME PT HAD SEIZURE AT HOME-- FOUND HER ON BEDROOM FLOOR--HE HAD BEEN OUT OF ROOM ONLY 4-5 MINUTES, BEFORE HE FOUND HER. PT WITH BRUISE AND SWELLING TO LEFT FOREHEAD AND BLOOD IN MOUTH HE BELIEVES SHE HIT HER FACE/HEAD ON NIGHTSTAND EMS REPORT THAT PT HAS BEEN POST-ICTAL FOR THEM PT C/O PAIN TO FOREHEAD DENIES PAIN ANYWHERE ELSE DILANTIN WAS STOPPED 3 DAYS AGO DUE TO LEVEL OF OVER 30 STATES THAT PT HAS NOT HAD A SEIZURE FOR YEARS, AND LAST SEIZURE WAS WHILE IN HOSPITAL AFTER PITUITARY SURGERY IN 2011 (DILANTIN HAD BEEN HELD FOR SURGERY). HAD ALSO HAD ONE WHILE IN HOSPITAL AFTER HIP SURGERY IN 2009. OTHERWISE HAS NOT HAD ANY SEIZURES NO RECENT ILLNESS, ETC. PCP: DR. LYNNE NEUROLOGY: Allergies and Home Medications Allergies Coded Allergies: No Known Drug Allergies (Unverified , 02/09/10) Home Medications Cholestyramine (with Sugar) 4 Gm Powd.pack, 4 GM PO TID for 5 Days Prescribed by: JUSTINE BULLOCK on 06/03/15 1325 Estrogens,Conjugated 0.625 Mg Tablet, 1 TAB PO DAILY, (Reported) Folic Acid 0.4 Mg Tablet, 1 EACH PO DAILY, (Reported) Lamotrigine 100 Mg Tablet, 100 MG PO DAILY, (Reported) AM Lamotrigine 150 Mg Tablet, 150 MG PO HS, (Reported) Phenytoin Sodium 100 Mg Cap, 4 CAP PO DAILY, (Reported) Constitutional: other (PT IS VERY LIMITED HISTORIAN) Eyes: Denies Blurred Vision Ears, Nose, Mouth, Throat: see HPI Psychiatric/Neurological: See HPI Past Qfazstz-Eruvmk-Bahktk Hx Patient Social History Alcohol Use: Denies Use Recreational Drug Use: No Smoking Status: Never a Smoker Surgeries History of Surgeries: Yes (PITUITARY TUMOR REMOVED AT IN 2011; RIGHT HIP FX /REPAIR 2009) Surgeries: Neurological, Orthopedic Respiratory History of Respiratory Disorde: No Cardiovascular History of Cardiac Disorders: Yes Cardiac Disorders: High Cholesterol Neurological History of Neurological Disord: Yes Neurological Disorders: Neuropathy, Seizure Disorder, Vertigo Reproductive System Hx Reproductive Disorders: No Genitourinary History of Genitourinary Disor: No Gastrointestinal History of Gastrointestinal Di: No Musculoskeletal History of Musculoskeletal Dis: Yes Musculoskeletal Disorders: Rheumatoid Arthritis Endocrine History of Endocrine Disorders: Yes (BENIGN PITUITARY ADENOMA) HEENT History of HEENT Disorders: No Cancer History of Cancer: No Psychosocial History of Psychiatric Problem: No Integumentary History of Skin or Integumenta: No Blood Transfusions History of Blood Disorders: Yes (NEUTROPENIA--NORMAL WBC 1.0-1.5) Physical Exam Vital Signs Vital Sign - Last 12Hours 04/02/17 22:33 Pulse Ox 100 O2 Delivery Nasal Cannula O2 Flow Rate 2.00 FiO2 100 Capillary Refill : General Appearance: WD/WN, no apparent distress, other (APPEARS POST-ICTAL WITH SLOW MENTATION AND SOME CONFUSION) HEENT: PERRL/EOMI, TMs normal, pharynx normal, other (LARGE HEMATOMA TO LEFT FOREHEAD/PENTECOSTALISM. BRUISING AND SWELLING TO RIGHT UPPER LIP AND CHIN. ABRASION TO RIGHT UPPER GUM OVER LATERAL INCISOR. TOOTH INTACT. DRIED BLOOD ON LIPS. NO OBVIOUS TONGUE INJURY NOTED AT THIS TIME. ) Neck: tender lateral (SLIGHT), tender midline (SLIGHT) Respiratory: chest non-tender, normal breath sounds, no respiratory distress, no accessory muscle use Cardiovascular: normal peripheral pulses, no JVD, no murmur, tachycardia Peripheral Pulses: 2+ Dorsalis Pedis (R), 2+ Left Dors-Pedis (L), 2+ Radial Pulses (R), 2+ Radial Pulses (L) Gastrointestinal: normal bowel sounds, non tender, soft Extremities: normal range of motion, non-tender, normal inspection, no pedal edema, no calf tenderness, normal capillary refill Neurologic/Psychiatric: product safety manager II-XII nml as tested, no motor/sensory deficits, other (APPEARS POST-ICTAL, WITH SLOW MENTATION AND CONFUSION) Crainal Nerves: normal speech, PERRL, No facial asymmetry Motor/Sensory: other (GROSS MOTOR/SENSORY INTACT, BUT NOT FOLLOWING COMMANDS WELL ON ARRIVAL--SLOW TO PROCESS) Skin: normal color, warm/dry, ecchymosis Progress/Results/Core Measures Results/Orders Lab Results Laboratory Tests Test 04/02/17 22:27 Range/Units White Blood Count 2.6 L 4.3-11.0 10^3/uL Red Blood Count 4.43 4.35-5.85 10^6/uL Hemoglobin 13.4 11.5-16.0 G/DL Hematocrit 38 35-52 % Mean Corpuscular Volume 87 80-99 FL Mean Corpuscular Hemoglobin 30 25-34 PG Mean Corpuscular Hemoglobin Concent 35 32-36 G/DL Red Cell Distribution Width 13.1 10.0-14.5 % Platelet Count 171 130-400 10^3/uL Mean Platelet Volume 8.9 7.4-10.4 FL Neutrophils (%) (Auto) 14 L 42-75 % Lymphocytes (%) (Auto) 58 H 12-44 % Monocytes (%) (Auto) 23 H 0-12 % Eosinophils (%) (Auto) 4 0-10 % Basophils (%) (Auto) 2 0-10 % Neutrophils # (Auto) 0.4 L 1.8-7.8 X 10^3 Lymphocytes # (Auto) 1.5 1.0-4.0 X 10^3 Monocytes # (Auto) 0.6 0.0-1.0 X 10^3 Eosinophils # (Auto) 0.1 0.0-0.3 10^3/uL Basophils # (Auto) 0.0 0.0-0.1 10^3/uL Neutrophils % (Manual) 10 % Lymphocytes % (Manual) 52 % Monocytes % (Manual) 19 % Eosinophils % (Manual) 1 % Basophils % (Manual) 0 % Band Neutrophils 4 % Reactive Lymphocytes 14 % Smudge Cells SLIGHT Toxic Granulation 1+ Rouleau MOD Prothrombin Time 11.7 L 12.2-14.7 SEC INR Comment 0.9 0.8-1.4 Activated Partial Thromboplast Time 27 24-35 SEC Sodium Level 138 135-145 MMOL/L Potassium Level 2.9 L 3.6-5.0 MMOL/L Chloride Level 100 98-107 MMOL/L Carbon Dioxide Level 22 21-32 MMOL/L Anion Gap 16 H 5-14 MMOL/L Blood Urea Nitrogen 23 H 7-18 MG/DL Creatinine 0.94 0.60-1.30 MG/DL Estimat Glomerular Filtration Rate 59 BUN/Creatinine Ratio 24 Glucose Level 185 H 70-105 MG/DL Calcium Level 8.8 8.5-10.1 MG/DL Magnesium Level 2.0 1.8-2.4 MG/DL Total Bilirubin 0.5 0.1-1.0 MG/DL Aspartate Amino Transf (AST/SGOT) 16 5-34 U/L Alanine Aminotransferase (ALT/SGPT) 9 0-55 U/L Alkaline Phosphatase 117 40-136 U/L Total Creatine Kinase 40 29-168 U/L Creatine Kinase MB 1.7 <6.6 NG/ML Troponin I < 0.30 <0.30 NG/ML B-Type Natriuretic Peptide 19.1 <100.0 PG/ML Total Protein 7.9 6.4-8.2 GM/DL Albumin 3.6 3.2-4.5 GM/DL TSH [place] Testing 1.97 0.35-4.94 UIU/ML Phenytoin (Dilantin) Level 8.9 L 10.0-20.0 UG/ML Valproic Acid (Depakene) Level < 2.0 L 50.0-100.0 UG/ML My Orders Orders - VIK SCHAFER DO Saline Lock/Iv-Start (04/02/17 22:18) Ekg Tracing (04/02/17:18) O2 (04/02/17 22:18) Monitor-Rhythm Ecg Trace Only (04/02/17 22:18) Ct Head/Face/Cervical Wo (04/02/17 22:18) BNP (04/02/17 22:18) Cbc With Automated Diff (04/02/17 22:18) Comprehensive Metabolic Panel (04/02/17 22:18) Creatine Kinase (04/02/17 22:18) Creatine Kinase Mb (04/02/17 22:18) Magnesium (04/02/17 22:18) Protime With Inr (04/02/17 22:18) Partial Thromboplastin Time (04/02/17 22:18) Thyroid Analyzer (04/02/17 22:18) Troponin I (04/02/17 22:18) Valproic Acid (04/02/17 22:18) Chest 1 View, Ap/Pa Only (04/02/17 22:18) Saline Lock/Iv-Start (04/02/17 22:18) Ns Iv 1000 Ml (Sodium Chloride 0.9%) (04/02/17 22:18) Cervical Collar (04/02/17 22:18) Pelvis (04/02/17 22:24) Phenytoin (Dilantin) (04/02/17 22:29) Lorazepam Injection (Ativan Injection) (04/02/17 22:32) Lorazepam Injection (Ativan Injection) (04/02/17 22:45) Manual Differential (04/02/17 22:27) Phenytoin Injection (Dilantin Injection) (04/02/17 23:30) Ns (Ivpb) (Sodium Chloride 0.9% Ivpb Bag (04/02/17 23:42) Medications Given in ED Current Medications Medications Dose Ordered Sig/Edward Route Start Time Stop Time Status Last Admin Dose Admin Phenytoin Sodium 1,000 mg ONCE ONCE IV 04/02/17 23:30 04/02/17 23:45 DC 04/03/17 00:05 1,000 MG Sodium Chloride 100 ml @ ud STK-MED ONCE .ROUTE 04/02/17 23:42 04/02/17 23:51 DC 04/03/17 00:06 100 MLS/HR Sodium Chloride 1,000 ml @ 0 mls/hr Q0M ONCE IV 04/02/17 22:18 04/02/17 22:20 DC 04/02/17 23:02 1,000 MLS/HR Vital Signs/I&O Vital Sign - Last 12Hours 04/02/17 22:33 Pulse Ox 100 O2 Delivery Nasal Cannula O2 Flow Rate 2.00 FiO2 100 Progress Note : Progress Note CERVICAL COLLAR APPLIED IMMEDIATELY ON ARRIVAL 2238--ON RETURN FROM XRAY DEPT, PT HAD GRAND MAL SEIZURE LASTING APPROXIMATELY 1 MINUTE. GIVEN ATIVAN 2 MG IV, PT SLEPT FOR REMAINDER OF ER STAY NO DETERIORATION IN PT'S CONDITION, AND PT ABLE TO BRIEFLY OPEN EYES TO VOICE AND MUMBLE A FEW WORDS. 9550--CERVICAL COLLAR REMOVED AFTER OBTAINING CT RESULTS ECG Initial ECG Impression Time: 22:54 Initial ECG Rate: 119 Initial ECG Rhythm: S.Tach Initial ECG Impression: Nonspecific Changes Initial ECG Comparisson: No Previous ECG Available Diagnostic Imaging Comments CT HEAD/MAXILLOFACIALS/CERVICAL SPINE--LEFT ANTERIOR SCALP WITH POST-TRAUMATIC SOFT TISSUE SWELLING, LESION WITH SURROUNDING SCLEROSIS INVOLVING LEFT ASPECT OF CLIVUS--NON-SPECIFIC . CHRONIC CHANGES OF CERVICAL SPINE, OTHERWISE NO ACUTE PROCESS--PER [facility] VIA FAX @ 1454 CXR--NO ACUTE PROCESS, PENDING RADIOLOGIST REVIEW PELVIS XRAY--NO ACUTE PROCESS, PENDING RADIOLOGIST REVIEW Reviewed: Reviewed by Me Departure Communication (Admissions) Progress Notes 2359--PAGING DR. TA 0004--SPOKE WITH DR. TA, ACCEPTS PT FOR ADMIT Impression Impression: Primary Impression: Seizure disorder Additional Impression: Subtherapeutic serum dilantin level Disposition: ADMITTED INPATIENT Condition: Stable Admissions Decision to Admit Reason: Admit from ER (General) Decision to Admit/Date: Apr 03, 2017 Time/Decision to Admit Time: 00:05 Departure-Patient Inst. Referrals: MICHAEL LYNNE MD (PCP/Family) Primary Care Physician VIK SCHAFER DO Apr 03, 2017 00:42
--- OUTSIDE RECORDS SUMMARY | 2017-04-03 00:49 | XMS REPORT | Clinical Summary ---
Author Author [facility] Organization [facility] Address Unknown Phone Unavailable Care Team Providers Care Furniture Assembler Name Role Phone PCP Unavailable Source Comments Some departments are not documenting in the electronic medical record. If you do not see the information that you expected, contact Release of Information in the Health Information Management department at [phone] for further assistance in locating additional records.[facility] Allergies No Known Allergies Current Medications Prescription [...] (HCC) 09/07/2012 Seizures (HCC) 09/07/2012 Pituitary adenoma ([facility]) 09/01/2012 Overview: S/p resection of pituitary adenoma [...]
--- OUTSIDE RECORDS SUMMARY | 2017-04-03 00:50 | XMS REPORT | Continuity of Care Document ---
Author Author [facility] Organization [facility] Address Unknown Phone Unavailable Allergies Active Description Code Type Severity Reaction Onset Reported/Identified Relationship to Patient Clinical Status Yes No Known Drug Allergies [id number] Drug Allergy Unknown N/ A 02/09/2010 Medications [...] 780.79 OTH MALAISE FATIGUE 12/18/2012 JEANE NAGEL DETASSELER Ot 783.21 LOSS OF WEIGHT 12/18/2012 JEANE NAGEL APRN Ot V57.1 PHYSICAL THERAPY NEC 12/18/2012 JEANE NAGEL DETASSELER Ot V57.21 ENCOUNTER FOR OCCUPATIONAL THERAPY 12/18/2012 JEANE NAGEL DETASSELER Ot V58.49 OTHER SPECIFIED AFTERCARE FOLLOWING SURG [...] V58.69 OT MED,LT,CURRENT USE 11/29/2014 ROSECAROLE Torres TAG WRITER Ot 288.00 11/29/2014 ROSECAROLE Torres S TAG WRITER Ot 288.50 11/29/2014 ROSECAROLE S TAG WRITER Ot 564.00 11/29/2014 ROSECAROLE S TAG WRITER Ot 714.0 11/29/2014 ROSECAROLE S TAG WRITER Ot 714.1 11/29/2014 ROSECAROLE S TAG WRITER Ot 733.90 11/29/2014 ROSECAROLE S TAG WRITER Ot V58.65 11/29/2014 ROSECAROLE S TAG WRITER Ot V58.69 04/03/2015 MAYANK, BOBAN N Ot [...] BOBAN N Ot V58.69 06/03/2015 JUSTINE BULLOCK DETASSELER Ot K52.9 NONINFECTIVE GASTROENTERITIS AND COLITIS 06/03/2015 JUSTINE BULLOCK DETASSELER Ot 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 INTEST, PART UNSP, W/O PERF 06/03/2015 JUSTINE BULLOCK DETASSELER Ot K80.20 CALCULUS OF GALLBLADDER W/O CHOLECYSTITI [...] BOBAN N Ot Z79.899 06/24/2015 JUSTINE BULLOCK DETASSELER Ot R19.7 07/30/2015 ANTONIA TALLEY N Ot D72.819 DECREASED WHITE BLOOD CELL COUNT, UNSPEC 07/30/2015 MAYANK BOBBARAK N Ot R30.0 DYSURIA 07/30/2015 MAYANKANTONIA BANDA N Ot R39.15 URGENCY OF URINATION 07/30/2015 BREANA TALLEYAN N Ot Z79.899 OTHER SECURITY INTERN (CURRENT) DRUG THERAPY 10/31/2015 CAROLE ROSE TAG WRITER Ot D70.9 NEUTROPENIA, UNSPECIFIED 11/21/2015 CAROLE ROSE TAG WRITER Ot D70.9 NEUTROPENIA, UNSPECIFIED 11/25/2015 CAROLE ROSE TAG WRITER Ot D70.9 NEUTROPENIA, UNSPECIFIED 03/12/2016 GUERA CUEVAS, [...] Ot 733.00 OSTEOPOROSIS NOS 03/17/2016 CAROLE ROSE TAG WRITER Ot 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 03/17/2016 CAROLE ROSE TAG WRITER Ot 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 03/17/2016 CAROLE ROSE TAG WRITER Ot 288.50 LEUKOCYTOPENIA, UNSPECIFIED 03/17/2016 CAROLE ROSE TAG WRITER Ot 345.90 EPILEPSY UNSPEC W/O MENTION INTRACTABLE 03/17/2016 CAROLE ROSE TAG WRITER Ot 714.0 RHEUMATOID ARTHRITIS 03/17/2016 CAROLE ROSE TAG WRITER Ot 780.4 DIZZINESS AND GIDDINESS 03/17/2016 CAROLE ROSE TAG WRITER Ot V58.69 OT MED,LT,CURRENT USE 03/17/2016 ANTONIA TALLEY Ot 574.10 CHOLELITH W CHOLECYS NEC 03/17/2016 ANTONIA TALLEY Ot 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 03/17/2016 LILIANE CUEVAS, ANDREI Mendez Ot V76.12 OTH SCREEN MAMMO-MALIGN NEOPLASM OF DANNY 03/17/2016 CAROLE ROSE TAG WRITER Ot 288.00 NEUTROPENIA, UNSPECIFIED 03/17/2016 CAROLE ROSE S TAG WRITER Ot 288.50 LEUKOCYTOPENIA, UNSPECIFIED 03/17/2016 CAROLE ROSE TAG WRITER Ot 574.10 CHOLELITH W CHOLECYS NEC 03/17/2016 CAROLE ROSE TAG WRITER Ot 714.0 RHEUMATOID ARTHRITIS 03/17/2016 CAROLE ROSE S TAG WRITER Ot 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 03/17/2016 CAROLE ROSE TAG WRITER Ot V58.69 OTH MED,LT,CURRENT USE 03/17/2016 CAROLE ROSE TAG WRITER Ot 288.00 NEUTROPENIA, UNSPECIFIED 03/17/2016 CAROLE ROSE S TAG WRITER Ot 288.50 LEUKOCYTOPENIA, UNSPECIFIED 03/17/2016 CAROLE ROSE S TAG WRITER Ot 564.00 UNSPEC CONSTIPATION 03/17/2016 CAROLE ROSE S TAG WRITER Ot 714.0 RHEUMATOID ARTHRITIS 03/17/2016 ROSECAROLE Torres S TAG WRITER Ot 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 03/17/2016 CAROLE ROSE S TAG WRITER Ot 733.90 BONE CARTILAGE DIS NOS 03/17/2016 CAROLE ROSE S TAG WRITER Ot V58.65 LONG-TERM(CURRENT)USE OF STEROIDS 03/17/2016 CAROLE ROSE S TAG WRITER Ot V58.69 OTH MED,LT,CURRENT USE 03/17/2016 DANNIE [...] 03/17/2016 MAYANK, BOBAN N Ot Z79.899 OTHER NURSING HOME (CURRENT) DRUG THERAPY 03/17/2016 ROSE CAROLE S TAG WRITER Ot D70.9 NEUTROPENIA, UNSPECIFIED 03/17/2016 MICHAEL LYNNE [...] OF GAIT AND MO 09/09/2016 JAMIE CASAREZ DETASSELER Ot M54.5 LOW BACK PAIN 09/10/2016 JAMIE CASAREZ DETASSELER Ot M54.5 LOW BACK PAIN 10/31/2016 CAROLE ROSE TAG WRITER Ot D70.9 NEUTROPENIA, UNSPECIFIED 10/31/2016 CAROLE ROSE TAG WRITER Ot D70.9 NEUTROPENIA, UNSPECIFIED 10/31/2016 CAROLE ROSE TAG WRITER Ot D70.9 NEUTROPENIA, UNSPECIFIED 11/05/2016 ANTONIA TALLEY [...] 11/05/2016 BREANA TALLEYAN N Ot Z79.899 OTHER NURSING HOME (CURRENT) DRUG THERAPY 12/10/2016 ANTONIA TALLEY N [...] CONVULSIONS 12/10/2016 MAYANKBREANAAN N Ot Z79.899 OTHER NURSING HOME (CURRENT) DRUG THERAPY 12/21/2016 MAYANKANTONIA N Ot [...] 12/21/2016 MAYANK, BOBAN N Ot Z79.899 OTHER NURSING HOME (CURRENT) DRUG THERAPY 01/21/2017 MAYANKANTONIA N Ot D35.2 BENIGN NEOPLASM OF PITUITARY GLAND 01/21/2017 MAYANK BOBBARAK N Ot D64.9 ANEMIA, UNSPECIFIED 01/21/2017 MAYANK, BOBAN N Ot D72.819 DECREASED WHITE BLOOD CELL COUNT, UNSPEC 01/21/2017 MAYANK BOBBARAK N Ot 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 01/21/2017 MAYANKANTONIA N Ot M06.9 RHEUMATOID ARTHRITIS, UNSPECIFIED 01/21/2017 MAYANK, BOBAN N Ot R56.9 UNSPECIFIED CONVULSIONS 01/21/2017 MAYANK, BOBAN N Ot Z79.899 OTHER NURSING HOME (CURRENT) DRUG THERAPY 02/02/2017 MAYANK, BOBAN N Ot D35.2 BENIGN NEOPLASM OF PITUITARY GLAND 02/02/2017 MAYANK, BOBAN N Ot D64.9 ANEMIA, UNSPECIFIED 02/02/2017 MAYANK, BOBAN N Ot D72.819 DECREASED WHITE BLOOD CELL COUNT, UNSPEC 02/02/2017 MAYANK, BOBAN N Ot 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 02/02/2017 ANTONIA TALLEY Ot M06.9 RHEUMATOID ARTHRITIS, UNSPECIFIED 02/02/2017 ANTONIA TALLEY Ot R56.9 UNSPECIFIED CONVULSIONS 02/02/2017 ANTONIA TALLEY Ot Z79.899 OTHER NURSING HOME (CURRENT) DRUG THERAPY 02/08/2017 ANTONIA TALLEY Ot D35.2 BENIGN NEOPLASM OF PITUITARY GLAND 02/08/2017 ANTONIA TALLEY Ot D64.9 ANEMIA, UNSPECIFIED 02/08/2017 ANTONIA TALLEY Ot D72.819 DECREASED WHITE BLOOD CELL COUNT, UNSPEC 02/08/2017 ANTONIA TALLEY Ot 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 02/08/2017 ANTONIA TALLEY Ot M06.9 RHEUMATOID ARTHRITIS, UNSPECIFIED 02/08/2017 ANTONIA TALLEY Ot R56.9 UNSPECIFIED CONVULSIONS 02/08/2017 ANTONIA TALLEY Ot Z79.899 OTHER NURSING HOME (CURRENT) DRUG THERAPY 03/04/2017 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 03/04/2017 Ot 714.0 RHEUMATOID ARTHRITIS 03/04/2017 Ot 733.00 OSTEOPOROSIS NOS 03/04/2017 CAROLE ROSE TAG WRITER Ot 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 03/04/2017 CAROLE ROSE TAG WRITER Ot 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 03/04/2017 CAROLE ROSE TAG WRITER Ot 288.50 LEUKOCYTOPENIA, UNSPECIFIED 03/04/2017 CAROLE ROSE TAG WRITER Ot 345.90 EPILEPSY UNSPEC W/O MENTION INTRACTABLE 03/04/2017 CAROLE ROSE TAG WRITER Ot 714.0 RHEUMATOID ARTHRITIS 03/04/2017 CAROLE ROSE TAG WRITER Ot 780.4 DIZZINESS AND GIDDINESS 03/04/2017 CAROLE ROSE TAG WRITER Ot V58.69 OTH MED,LT,CURRENT USE 03/04/2017 ANTONIA TALLEY Eugene Ot 574.10 CHOLELITH W CHOLECYS NEC 03/04/2017 ANTONIA TALLEY Eugene Ot 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 03/04/2017 LILIANE CUEVAS, ANDREI Mendze Ot V76.12 OTH SCREEN MAMMO-MALIGN NEOPLASM OF DANNY 03/04/2017 CAROLE ROSE TAG WRITER Ot 288.00 NEUTROPENIA, UNSPECIFIED 03/04/2017 CAROLE ROSE TAG WRITER Ot 288.50 LEUKOCYTOPENIA, UNSPECIFIED 03/04/2017 ROSECAROLE Torres TAG WRITER Ot 574.10 CHOLELITH W CHOLECYS NEC 03/04/2017 ROSECAROLE Torres TAG WRITER Ot 714.0 RHEUMATOID ARTHRITIS 03/04/2017 ROSECAROLE TAG WRITER Ot 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 03/04/2017 ROSE CAROLE Torres TAG WRITER Ot V58.69 OTH MED,LT,CURRENT USE 03/04/2017 CAROLE ROSE TAG WRITER Ot 288.00 NEUTROPENIA, UNSPECIFIED 03/04/2017 CAROLE ROSE TAG WRITER Ot 288.50 LEUKOCYTOPENIA, UNSPECIFIED 03/04/2017 ROSE CAROLE Torres TAG WRITER Ot 564.00 UNSPEC CONSTIPATION 03/04/2017 ROSE CAROLE Torres TAG WRITER Ot 714.0 RHEUMATOID ARTHRITIS 03/04/2017 ROSE CAROLE Torres TAG WRITER Ot 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 03/04/2017 ROSE CAROLE Torres TAG WRITER Ot 733.90 BONE CARTILAGE DIS NOS 03/04/2017 ROSE CAROLE Torres TAG WRITER Ot V58.65 LONG-TERM(CURRENT)USE OF STEROIDS 03/04/2017 ROSE CAROLE Torres TAG WRITER Ot V58.69 OTH MED,LT,CURRENT USE 03/04/2017 DANNIE CUEVAS, BRIANNA Rajput Ot G40.909 EPILEPSY, UNSP, NOT INTRACTABLE, WITHOUT 03/04/2017 JUSTINE BULLOCK DETASSELER Ot R19.7 DIARRHEA, UNSPECIFIED 03/04/2017 CAROLE ROSE Brian TAG WRITER Ot D70.9 NEUTROPENIA, UNSPECIFIED 03/04/2017 JMAIE CASAREZ APRN Ot M54.5 LOW BACK PAIN 03/04/2017 ANTONIA TALLEY Ot D35.2 BENIGN NEOPLASM OF PITUITARY GLAND 03/04/2017 ANTONIA TALLEY Ot D64.9 ANEMIA, UNSPECIFIED 03/04/2017 ANTONIA TALLEY Ot D72.819 DECREASED WHITE BLOOD CELL COUNT, UNSPEC 03/04/2017 ANTONIA TALLEY Ot 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 03/04/2017 ANTONIA TALLEY Ot M06.9 RHEUMATOID ARTHRITIS, UNSPECIFIED 03/04/2017 ANTONIA TALLEY Ot R56.9 UNSPECIFIED CONVULSIONS 03/04/2017 ANTONIA TALLEY Ot Z79.899 OTHER NURSING HOME (CURRENT) DRUG THERAPY 03/15/2017 MICHAEL LYNNE MD Ot R42 DIZZINESS AND GIDDINESS 03/15/2017 MICHAEL LYNNE MD Ot R53.1 WEAKNESS Procedures Results Encounters ACCT No. Visit Date/Time Discharge Status Pt. Type Provider Facility Loc./Unit Complaint [id number] 03/14/2017 14:53:00 2016 23:59:59 CLS Outpatient MICHAEL LYNNE MD [facility] REHAB VERTIGO;WEAKNESS [id number] 03/04/2017 08:23:00 2016 23:59:59 CLS Outpatient MICHAEL LYNNE MD [facility] RAD GALLSTONES [id number] 02/03/2017 00:11:00 2016 23:59:59 CLS Preadmit ANTONIA TALLEY [facility] ONC [id number] 11/04/2016 09:24:00 2016 00:01:00 DIS Outpatient ANTONIA TALLEY [facility] ONC [id number] 08/11/2016 14:27:00 2016 23:59:59 CLS Outpatient JAMIE CASAREZ APRN [facility] RAD LOW BACK/BUTTOCKS PAIN [id number] 04/22/2016 09:00:00 2015 12:05:00 DIS Outpatient MICHAEL LYNNE MD [facility] REHAB GAIT INSTABILITY;RA [id number] 03/11/2016 11:07:00 2015 17:00:00 DIS Outpatient MICHAEL LYNNE MD [facility] REHAB GAIT INSTABILITY;RA [id number] 10/30/2015 14:20:00 2015 23:59:59 CLS Outpatient CAROLE ROSE [facility] ONC [id number] 05/01/2015 09:25:00 2015 00:01:00 DIS Outpatient ANTONIA TALLEY [facility] ONC [id number] 06/04/2015 09:53:00 2014 23:59:59 CLS Outpatient JUSTINE BULLOCK DETASSELER [facility] LAB DIARRHEA [id number] 06/03/2015 10:37:00 2014 14:59:00 DIS Emergency JUSTINE BULLOCK DETASSELER [facility] ER DIARRHEA [id number] 05/01/2015 10:05:00 2014 23:59:59 CLS Outpatient DANNIE CUEVAS, BRIANNA Rajput [facility] LAB [id number] 09/20/2014 12:42:00 2014 23:59:59 CLS Outpatient CAROLE ROSE TAG WRITER [facility] ONC [id number] 03/21/2014 13:00:00 2014 00:01:00 DIS Outpatient ANTONIA TALLEY Eugeen [facility] ONC [id number] 12/11/2013 14:25:00 2013 23:59:59 CLS Outpatient CAROLE ROSE TAG WRITER [facility] ONC [id number] 09/10/2013 10:22:00 2013 00:01:00 DIS Outpatient ANTONIA TALLEY Eugene [facility] ONC [id number] 12/04/2013 07:26:00 2013 23:59:59 CLS Outpatient ANTONIA TALLEY Eugene [facility] RAD SFLT SYNDROME [id number] 11/29/2013 10:40:00 2013 23:59:59 CLS Outpatient ANDREI MOMIN MD [facility] RAD SCREENING [id number] 05/02/2013 13:07:00 2013 00:01:00 DIS Outpatient ANTONIA TALLEY Eugene [facility] ONC [id number] 04/30/2013 14:22:00 2012 23:59:59 CLS Outpatient CAROLE ROSE TAG WRITER [facility] ONC [id number] 01/15/2013 12:46:00 2012 00:01:00 DIS Outpatient ANTONIA TALLEY Eugene [facility] ONC [id number] 11/28/2012 09:00:00 2012 00:01:00 DIS Outpatient JEANE NAGEL MAX [facility] REHAB S/P BRAIN SURGERY [id number] 10/26/2012 11:19:00 2012 00:01:00 DIS Outpatient ANTONIA TALLEY Eugene [facility] ONC [id number] 03/17/2016 10:01:00 Document Registration [id number] 09/15/2011 11:51:00 Document Registration [id number] 02/01/2011 10:38:00 Document Registration [id number] 01/18/2011 11:10:00 Document Registration [id number] 01/05/2011 09:29:00 Document Registration [id number] 01/04/2011 12:32:00 Document Registration [id number] 12/31/2010 10:33:00 Document Registration [id number] 02/12/2010 00:00:00 Document Registration
[2017-04-03 01:37] LABS: BILIRUBIN,URINE NEGATIVE (NEGATIVE); KETONES,URINE NEGATIVE (NEGATIVE); LEUKOCYTE ESTERASE ,URINE 3+ (NEGATIVE); NITRITE,URINE POSITIVE (NEGATIVE); PH,URINE 7 (5-9); PROTEIN,URINE 1+ (NEGATIVE); UROBILINOGEN,URINE NORMAL (NORMAL)
[2017-04-03 02:25] LABS: WBC,URINE 25-50 /HPF
[2017-04-03] MEDS: D5 1/2 NS 1000 ML IV SOLUTION 1,000 ML IV SCH ×2 (02:44→18:48)
[2017-04-03 04:44] LABS: BASOPHILS % (AUTO) 1 % (0-10); EOSINOPHILS % (AUTO) 2 % (0-10); LYMPHOCYTES # (AUTO) 0.8 X 10^3 (1.0-4.0); LYMPHOCYTES % (AUTO) 40 % (12-44); MEAN CORPUSCULAR HEMOGLOBIN 30 PG (25-34); MEAN CORPUSCULAR HGB CONC 34 G/DL (32-36); MEAN CORPUSCULAR VOLUME 88 FL (80-99); MONOCYTES # (AUTO) 0.5 X 10^3 (0.0-1.0); MONOCYTES % (AUTO) 24 % (0-12); NEUTROPHILS # (AUTO) 0.6 X 10^3 (1.8-7.8); NEUTROPHILS % (AUTO) 34 % (42-75); PLATELET COUNT 144 10^3/uL (130-400); RED BLOOD COUNT 4.06 10^6/uL (4.35-5.85); WHITE BLOOD COUNT 1.9 10^3/uL (4.3-11.0)
[2017-04-03 05:15] LABS: ALANINE AMINOTRANSFERASE 9 U/L (0-55); ALBUMIN 3.4 GM/DL (3.2-4.5); ANION GAP 10 MMOL/L (5-14); ASPARTATE AMINO TRANSFERASE 18 U/L (5-34); BILIRUBIN,TOTAL 0.3 MG/DL (0.1-1.0); BLOOD UREA NITROGEN 20 MG/DL (7-18); BUN/CREATININE RATIO 24; CALCIUM 8.6 MG/DL (8.5-10.1); CARBON DIOXIDE 24 MMOL/L (21-32); CHLORIDE 102 MMOL/L (98-107); CREATININE SERUM 0.84 MG/DL (0.60-1.30); GFR ESTIMATED > 60; GLUCOSE 122 MG/DL (70-105); MAGNESIUM 2.1 MG/DL (1.8-2.4); PHOSPHORUS 3.7 MG/DL (2.3-4.7); POTASSIUM 3.8 MMOL/L (3.6-5.0); SODIUM 136 MMOL/L (135-145); TOTAL PROTEIN 7.7 GM/DL (6.4-8.2)
[2017-04-03] MEDS ORDERED: PHENYTOIN 250 MG/5 ML INJ (DILANTIN) VIAL IV ONE (06:00)
--- NOTE | 2017-04-03 07:28 | Diagnostic Imaging Report ---
PROCEDURE: CT head, face, and cervical spine without contrast. TECHNIQUE: Multiple contiguous axial images were obtained through the head, neck, and facial bones without the use of intravenous contrast. Sagittal and coronal reformations through the cervical spine and facial bones were also performed. INDICATION: Head, face and neck pain after a seizure. FINDINGS: There is prominence of the ventricles and sulci. There is diffuse decreased attenuation of the periventricular white matter. There is no hydrocephalus. There is no midline shift. There is no intrarenal mass, hemorrhage or extra-axial fluid collection. There is a left frontal scalp hematoma. The calvarium is intact. There is an asymmetrical lucency with surrounding sclerosis in the anterior skull base and clivus to the left of midline. The sinuses and mastoid air cells are clear. The calvarium is intact. The nasal bones are intact. The zygomatic arches and pterygoid plates are intact. The mandibular alignment is normal. The mandible is intact. There are no displaced facial bone fractures. There is straightening of the normal cervical lordosis. There is slight degenerative anterolisthesis of C2 on C3. There is marked degenerative disc disease at C3-4, C4-5 and C5-6. This is associated with some endplate sclerosis and marginal osteophytosis. There is posterior facet arthropathy. There is marked bilateral uncovertebral joint hypertrophy at C4-5 and C5-6 with at least moderate bilateral neural foraminal encroachment. There is no fracture or traumatic subluxation. The odontoid is intact and the lateral masses are well aligned. The prevertebral soft tissues are within normal limits. The lung apices are clear. IMPRESSION: Atrophy and moderate chronic microvascular ischemic disease however no acute intracranial abnormality. Left frontal scalp hematoma. Lytic area with surrounding sclerosis in the left aspect of the clivus. This is nonspecific however may be on a neoplastic basis. Comparison with prior studies is recommended if they are available; otherwise, further evaluation with MRI should be considered. No displaced facial bone fractures. Moderately severe cervical spondylosis and degenerative disc disease without acute fracture or traumatic subluxation. Dictated by: Dictated on workstation # [id number]
[2017-04-03] MEDS ORDERED: INFLUENZA TRIvalent 2017-2018 0.5 ML/45 MCG SYR IM ONE (07:30)
--- NOTE | 2017-04-03 07:58 | Diagnostic Imaging Report ---
INDICATION: Seizure. COMPARISON: 09/15/11. FINDINGS: A single view of the chest demonstrates clear lungs bilaterally. The heart is normal. No pneumothorax. The osseous structures are normal. IMPRESSION: Negative chest. Dictated by: Dictated on workstation # [id number]
--- NOTE | 2017-04-03 08:00 | Diagnostic Imaging Report ---
INDICATION: Hip pain, injury. COMPARISON: None. FINDINGS: A single view of the pelvis demonstrates diffuse osteopenia. There is no acute fracture or dislocation. The visualized right hip arthroplasty appears intact. Minimal degenerative changes are seen on the left. No osseous lesion. IMPRESSION: No acute fracture or dislocation. Dictated by: Dictated on workstation # [id number]
--- NOTE | 2017-04-03 11:51 | History & Physical-Hospitalist ---
HPI History of Present Illness: HPI/Chief Complaint Mrs. Hartman is a 71-year-old white female with a long history of generalized seizure disorder following pituitary adenoma removal many years ago. She apparently saw Dr. Zepdea 4 days prior to her admission with complaints of disequilibrium increased fatigue and nausea. Her Dilantin level at that time was a little over 30. She was instructed to hold her Dilantin for 3 days which she did. Is not clear whether or not she got a dose earlier today. She was in the bathroom when she apparently had a generalized seizure striking the right side of her head. Her found her in a confused state with significant bruising over the right forehead. He brought her to the emergency room where CT head revealed no evidence for intracranial pathology. She was still confused with Dilantin level of 2. She received Ativan and a gram loading dose of Dilantin and admitted to the intensive care unit for continued monitoring. Her last seizure was several years ago happening around surgery were her Dilantin had been held for several days. Should not been feeling well for the past several weeks likely due to elevated Dilantin levels. There've been no medication changes she denied antibiotics or any [id number] medication changes to account for an elevated level per her or her 's report. She was fatigued appearing this morning during her interview but answered questions appropriately oriented 2. Date Seen 04/03/17 Time Seen by Provider: 07:30 Attending Physician Magali Zepeda MD PCP aMgali Zepeda MD Referring Physician Date of Admission Apr 03, 2017 at 00:05 Home Medications & Allergies Home Medications Reviewed patient Home Medication Reconciliation Form Allergies Allergies Coded Allergies No Known Drug Allergies (Unverified02/09/10) Past Ktqpbtf-Duflhn-Xsiifb Hx Patient Social History Alcohol Use: Denies Use Recreational Drug Use: No Smoking Status: Never a Smoker 2nd Hand Smoke Exposure: No Physical Abuse Screen: No Sexual Abuse: No Recent Foreign Travel: No Contact w/other who traveled: No Recent Hopitalizations: No Recent Infectious Disease Expo: No Immunizations Up To Date Pediatric: No Seasonal Allergies Seasonal Allergies: No Surgeries Yes (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; RIGHT HIP FX/REPAIR 2009) Neurological, Orthopedic Respiratory No Currently Using CPAP: No Currently Using BIPAP: No Cardiovascular No High Cholesterol Neurological Yes Neuropathy, Seizure Disorder, Vertigo Reproductive System Hx Reproductive Disorders: No Genitourinary No Gastrointestinal Yes ("POSSIBLE GALLBLADDER PROBLEMS") Chronic Constipation Musculoskeletal Yes Rheumatoid Arthritis Endocrine History of Endocrine Disorders: Yes (BENIGN PITUITARY ADENOMA) HEENT History of HEENT Disorders: No Cancer No Psychosocial History of Psychiatric Problem: Yes Behavioral Health Disorders: Depression Integumentary History of Skin or Integumenta: No Blood Transfusions History of Blood Disorders: Yes (NEUTROPENIA--NORMAL WBC 1.0-1.5) Family Medical History Family Hx: Benign neoplasm pituitary gland and craniopharyngeal duct G8 BROTHER, Onset:Unknown Completed stroke 19 FATHER, , Onset:60 years & older 19 MOTHER, , Onset:60 years & older FH: epilepsy G8 SISTER, Onset:Unknown Review of Systems Constitutional: No no symptoms reported, see HPI, No chills, No diaphoresis, dizziness, No fever, No malaise, weakness Respiratory: no symptoms reported Cardiovascular: no symptoms reported, No chest pain, No edema, No Hx of Intervention, No palpitations, No syncope, No vascular heart diseas Psychiatric/Neurological: Seizure, Other (she reports mild left forehead pain denies any other head related pain focal numbness or weakness.) Physical Exam Physical Exam Vital Signs Vital Sign - Last 12Hours 04/02/17 04/02/17 22:17 22:33 Temp 98.1 Pulse 148 Resp 22 B/P (MAP) 164/83 Pulse Ox 98 O2 Delivery Room Air O2 Flow Rate 2.00 FiO2 100 Capillary Refill : Less Than 3 Seconds General Appearance: No Apparent Distress, Thin Eyes: Bilateral Eye Normal Inspection, Bilateral Eye PERRL, Bilateral Eye EOMI HEENT: Other (for had bruising noted with minimal swelling and no lacerations apparent several small abrasions.) Neck: Full Range of Motion, Normal Inspection Respiratory: Chest Non Tender, Lungs Clear, Normal Breath Sounds, No Accessory Muscle Use, No Respiratory Distress Cardiovascular: Regular Rate, Rhythm, No Edema, No Gallop, No JVD, No Murmur, Normal Peripheral Pulses Gastrointestinal: Normal Bowel Sounds, No Organomegaly, No Pulsatile Mass, Non Tender, Soft Extremity: Normal Range of Motion, Non Tender, No Pedal Edema Neurologic/Psychiatric: Other (oriented 2 answers questions appropriately still slightly sedated with normal speech.) Results Results/Procedures Lab Laboratory Tests 04/02/17 22:27 04/03/17 04:02 Assessment/Plan Admission Diagnosis 1. Generalized seizure with traumatic left forehead contusion caused by subtherapeutic Dilantin. Patient received a gram loading dose with Dilantin level back up to 8. She is slightly sedate today due to combination of Ativan given in the emergency room in addition the postictal state but is approaching baseline mental status. We'll give 400 mg of Dilantin by mouth this afternoon with the need for likely discharge on slight dose reduction and repeat monitoring later this week. We'll go ahead and repeat a Dilantin level in the morning with likely discharge him to follow the patient continues to do well. Signs and symptoms of Dilantin toxicity discussed with recommendation that she call Dr. Zepeda's office if he is developing the same sensations of disequilibrium to repeat Dilantin monitoring and evaluation. 2. Previous benign apparently nonfunctioning pituitary adenoma with likely secondary generalized seizure disorder in addition to above will continue her current dose of Lamictal 3. Apparent chronic mild asymptomatic neutropenia stable Clinical Quality Measures DVT/VTE Risk/Contraindication: Risk Factor Score Per Nursin RFS Level Per Nursing on Admit: 2=Moderate AMANDA TA MD Apr 03, 2017 11:51
[2017-04-03] MEDS ORDERED: lamoTRIgine 25 MG (LaMICtal) TAB PO NR (12:08)
[2017-04-03] MEDS ORDERED: PHENYTOIN 100 MG (DILANTIN) CAP PO NR (12:11)
[2017-04-03] MEDS ORDERED: LAMO100T PO (15:32)
[2017-04-03] MEDS ORDERED: LAMO150T PO (15:32)
[2017-04-03] MEDS ORDERED: PHEN100C4 PO (15:32)
[2017-04-03] MEDS ORDERED: FOLI0.8T PO (15:32)
[2017-04-04] VITALS (15 sets, daily range): BP systolic 116–150; BP diastolic 59–74
[2017-04-04 05:11] LABS: BASOPHILS % (AUTO) 1 % (0-10); EOSINOPHILS % (AUTO) 2 % (0-10); LYMPHOCYTES # (AUTO) 0.8 X 10^3 (1.0-4.0); LYMPHOCYTES % (AUTO) 50 % (12-44); MEAN CORPUSCULAR HEMOGLOBIN 30 PG (25-34); MEAN CORPUSCULAR HGB CONC 34 G/DL (32-36); MEAN CORPUSCULAR VOLUME 88 FL (80-99); MEAN PLATELET VOLUME 8.8 FL (7.4-10.4); MONOCYTES # (AUTO) 0.5 X 10^3 (0.0-1.0); MONOCYTES % (AUTO) 28 % (0-12); NEUTROPHILS # (AUTO) 0.3 X 10^3 (1.8-7.8); NEUTROPHILS % (AUTO) 19 % (42-75); PLATELET COUNT 135 10^3/uL (130-400); RED BLOOD COUNT 3.59 10^6/uL (4.35-5.85); RED CELL DISTRIBUTION WIDTH 12.9 % (10.0-14.5); WHITE BLOOD COUNT 1.6 10^3/uL (4.3-11.0)
[2017-04-04 05:31] LABS: ANION GAP 6 MMOL/L (5-14); BLOOD UREA NITROGEN 11 MG/DL (7-18); BUN/CREATININE RATIO 15; CALCIUM 8.4 MG/DL (8.5-10.1); CARBON DIOXIDE 28 MMOL/L (21-32); CHLORIDE 103 MMOL/L (98-107); CREATININE SERUM 0.72 MG/DL (0.60-1.30); GFR ESTIMATED > 60; GLUCOSE 108 MG/DL (70-105); MAGNESIUM 1.9 MG/DL (1.8-2.4); PHOSPHORUS 2.9 MG/DL (2.3-4.7); POTASSIUM 3.4 MMOL/L (3.6-5.0); SODIUM 137 MMOL/L (135-145)
[2017-04-04] MEDS ORDERED: MAGNESIUM 1 GM/100 ML IVPB 100 ML IV SCH (06:00)
[2017-04-04] MEDS ORDERED: POTASSIUM CL 10MEQ/50ML IVPB 50 ML IV SCH (06:00)
[2017-04-04] MEDS ORDERED: KCL 20 MEQ TAB (K-DUR) PO SCH (06:00)
[2017-04-04] MEDS: D5 1/2 NS 1000 ML IV SOLUTION 1,000 ML IV SCH ×2 (07:00→13:37)
[2017-04-04] MEDS ORDERED: cefTRIAXone INJECTION 1,000 MG in NS (IVPB) 50 ML IV SCH (08:30)
--- NOTE | 2017-04-04 09:04 | Progress Note (SOAP) ---
Subjective Date Seen by Provider: Apr 04, 2017 Time Seen by Provider: 08:15 Subjective/Events-last exam Pt is a 71 y/o female who is known to me from clinic. She presented to the emergency department after falling and having a seizure at home on Tuesday. Today she states that she is feeling better, but having fatigue, dizziness. Objective Exam Vital Signs Date Time Temp Pulse Resp B/P (MAP) Pulse Ox O2 Delivery O2 Flow Rate FiO2 04/04/17 07:00 94 04/04/17 06:00 100 10 150/70 100 Nasal Cannula 2.00 04/04/17 05:00 101 22 144/74 100 Nasal Cannula 2.00 04/04/17 04:22 Nasal Cannula 3.00 04/04/17 04:00 100 Nasal Cannula 2.00 04/04/17 04:00 91 20 116/59 100 Nasal Cannula 2.00 04/04/17 03:00 96 30 116/59 97 Nasal Cannula 2.00 04/04/17 02:00 85 17 135/62 100 Nasal Cannula 2.00 04/04/17 01:00 93 22 145/64 99 Nasal Cannula 2.00 04/04/17 01:00 93 04/04/17 00:00 100 Nasal Cannula 2.00 04/04/17 00:00 66 21 125/61 100 Nasal Cannula 2.00 04/03/17 23:00 99 21 125/61 100 Nasal Cannula 2.00 04/03/17 22:00 96 16 124/71 99 Nasal Cannula 2.00 04/03/17 21:00 92 18 129/80 100 Nasal Cannula 2.00 04/03/17 20:00 100 Nasal Cannula 2.00 04/03/17 20:00 98.6 93 10 131/72 100 Nasal Cannula 2.00 04/03/17 19:00 95 04/03/17 19:00 95 13 126/73 100 Nasal Cannula 2.00 04/03/17 18:00 100 26 131/48 98 Nasal Cannula 2.00 04/03/17 17:00 98 16 132/61 100 Nasal Cannula 2.00 04/03/17 16:00 95 30 119/53 100 Nasal Cannula 2.00 04/03/17 16:00 100 Room Air 04/03/17 15:00 96 13 105/51 100 Nasal Cannula 2.00 04/03/17 14:00 90 10 109/56 100 Nasal Cannula 2.00 04/03/17 13:00 91 04/03/17 13:00 91 18 117/62 98 Nasal Cannula 2.00 04/03/17 12:00 98.0 04/03/17 12:00 84 16 96/45 100 Nasal Cannula 2.00 04/03/17 12:00 100 Room Air 04/03/17 11:00 85 18 101/58 100 Room Air 04/03/17 10:00 93 12 113/51 100 Room Air Capillary Refill : Less Than 3 Seconds Results Lab Laboratory Tests 04/03/17 13:59: Phenytoin (Dilantin) Level 38.2*H 04/04/17 05:00: Phenytoin (Dilantin) Level 30.1*H, White Blood Count 1.6L, Red Blood Count 3.59L , Hemoglobin 10.7L, Hematocrit 32L, Mean Corpuscular Volume 88, Mean Corpuscular Hemoglobin 30, Mean Corpuscular Hemoglobin Concent 34, Red Cell Distribution Width 12.9, Platelet Count 135, Mean Platelet Volume 8.8, Neutrophils (%) (Auto) 19L, Lymphocytes (%) (Auto) 50H, Monocytes (%) (Auto) 28H , Eosinophils (%) (Auto) 2, Basophils (%) (Auto) 1, Neutrophils # (Auto) 0.3L, Lymphocytes # (Auto) 0.8L, Monocytes # (Auto) 0.5, Eosinophils # (Auto) 0.0, Basophils # (Auto) 0.0, Sodium Level 137, Potassium Level 3.4L, Chloride Level 103, Carbon Dioxide Level 28, Anion Gap 6, Blood Urea Nitrogen 11, Creatinine 0.72, Estimat Glomerular Filtration Rate > 60, BUN/Creatinine Ratio 15, Glucose Level 108H, Calcium Level 8.4L, Phosphorus Level 2.9, Magnesium Level 1.9 Microbiology 04/03/17 Urine Culture - Preliminary, Resulted Gram Negative Alex Assessment/Plan Assessment/Plan Assess & Plan/Chief Complaint Seizure Clinical Quality Measures DVT/VTE Risk/Contraindication: Risk Factor Score Per Nursin RFS Level Per Nursing on Admit: 2=Moderate MICHAEL LYNNE MD Apr 04, 2017 09:04
[2017-04-04] MEDS ORDERED: POLYETHYLENE GLYCOL 17 GM (MIRALAX) PACK PO NR (09:15)
--- NOTE | 2017-04-04 10:02 | Diagnostic Imaging Report ---
Portable upright radiograph of the chest. INDICATION: Seizures. FINDINGS: The lungs are hyperinflated but clear. The heart size is normal. No effusion or pneumothorax. Right perihilar calcified granuloma seen. IMPRESSION: COPD. Dictated by: Dictated on workstation # [id number]
[2017-04-04] MEDS: cefTRIAXone INJECTION 1,000 MG in NS (IVPB) 50 ML IV SCH (13:38)
[2017-04-04] MEDS: MECLIZINE 25 MG (ANTIVERT) TAB PO PRN (16:33)
[2017-04-04] MEDS ORDERED: POLYETHYLENE GLYCOL 17 GM (MIRALAX) PACK PO SCH (21:00)
[2017-04-04] MEDS ORDERED: PHENYTOIN 100 MG (DILANTIN) CAP PO NR (21:00)
[2017-04-04] MEDS ORDERED: PHENYTOIN 100 MG (DILANTIN) CAP PO SCH (21:00)
[2017-04-05 00:22] VITALS: BP 155/72
[2017-04-05 04:31] VITALS: BP 158/72
[2017-04-05] MEDS: D5 1/2 NS 1000 ML IV SOLUTION 1,000 ML IV SCH (04:35)
[2017-04-05 06:26] LABS: BASOPHILS % (AUTO) 1 % (0-10); EOSINOPHILS % (AUTO) 1 % (0-10); LYMPHOCYTES # (AUTO) 0.8 X 10^3 (1.0-4.0); LYMPHOCYTES % (AUTO) 56 % (12-44); MEAN CORPUSCULAR HEMOGLOBIN 30 PG (25-34); MEAN CORPUSCULAR HGB CONC 34 G/DL (32-36); MEAN CORPUSCULAR VOLUME 87 FL (80-99); MONOCYTES # (AUTO) 0.4 X 10^3 (0.0-1.0); MONOCYTES % (AUTO) 26 % (0-12); NEUTROPHILS # (AUTO) 0.2 X 10^3 (1.8-7.8); NEUTROPHILS % (AUTO) 17 % (42-75); PLATELET COUNT 140 10^3/uL (130-400); RED BLOOD COUNT 3.68 10^6/uL (4.35-5.85); RED CELL DISTRIBUTION WIDTH 12.8 % (10.0-14.5)
[2017-04-05 06:34] LABS: WHITE BLOOD COUNT 1.4 10^3/uL (4.3-11.0)
[2017-04-05 06:54] LABS: ANION GAP 9 MMOL/L (5-14); BLOOD UREA NITROGEN 11 MG/DL (7-18); BUN/CREATININE RATIO 15; CALCIUM 8.7 MG/DL (8.5-10.1); CARBON DIOXIDE 25 MMOL/L (21-32); CHLORIDE 103 MMOL/L (98-107); CREATININE SERUM 0.71 MG/DL (0.60-1.30); GFR ESTIMATED > 60; GLUCOSE 101 MG/DL (70-105); SODIUM 137 MMOL/L (135-145)
[2017-04-05 08:03] VITALS: BP 154/88
[2017-04-05] MEDS: cefTRIAXone INJECTION 1,000 MG in NS (IVPB) 50 ML IV SCH (08:05)
[2017-04-05] MEDS: MECLIZINE 25 MG (ANTIVERT) TAB PO PRN (08:12)
[2017-04-05] MEDS ORDERED: KCL 20 MEQ TAB (K-DUR) PO NR (08:30)
[2017-04-05] MEDS ORDERED: MECL-106 PO (09:17)
[2017-04-05] MEDS ORDERED: PHEN100C4 PO (09:17)
[2017-04-05] MEDS ORDERED: CEPH-507 PO (09:17)
[2017-04-05] MEDS ORDERED: LACT1TAB6 PO (09:17)
--- NOTE | 2017-04-05 09:17 | Discharge Summary ---
Diagnosis/Chief Complaint Date of Admission Apr 03, 2017 at 01:00 Date of Discharge Discharge Date: Apr 05, 2017 Discharge Time: 10:00 Discharge Summary Discharge Physical Examination Allergies: Coded Allergies: No Known Drug Allergies (Unverified , 02/09/10) Vitals & I&Os Vital Signs Date Time Temp Pulse Resp B/P (MAP) Pulse Ox O2 Delivery O2 Flow Rate FiO2 04/05/17 08:03 98.0 99 20 154/88 96 Room Air 04/04/17 10:00 2.00 04/02/17 22:33 100 Hospital Course Pending Labs Laboratory Tests 04/05/17 05:32: White Blood Count 1.4, Red Blood Count 3.68, Hemoglobin 10.9, Hematocrit 32, Mean Corpuscular Volume 87, Mean Corpuscular Hemoglobin 30, Mean Corpuscular Hemoglobin Concent 34, Red Cell Distribution Width 12.8, Platelet Count 140, Mean Platelet Volume 9.0, Neutrophils (%) (Auto) 17, Lymphocytes (%) (Auto) 56, Monocytes (%) (Auto) 26, Eosinophils (%) (Auto) 1, Basophils (%) (Auto) 1, Neutrophils # (Auto) 0.2, Lymphocytes # (Auto) 0.8, Monocytes # (Auto) 0.4, Eosinophils # (Auto) 0.0, Basophils # (Auto) 0.0, Sodium Level 137, Potassium Level 3.0, Chloride Level 103, Carbon Dioxide Level 25, Anion Gap 9, Blood Urea Nitrogen 11, Creatinine 0.71, Estimat Glomerular Filtration Rate > 60, BUN/ Creatinine Ratio 15, Glucose Level 101, Calcium Level 8.7, Phenytoin (Dilantin) Level 25.7, Lamotrigine (Lamictal) Level [Pending] Discharge Instructions to patient/family Please see electronic discharge instructions given to patient. Discharge Medications Reviewed and agree with Discharge Medication list on patient's Discharge Instruction sheet Clinical Quality Measures DVT/VTE Risk/Contraindication: Risk Factor Score Per Nursin RFS Level Per Nursing on Admit: 2=Moderate MICHAEL LYNNE MD Apr 05, 2017 09:17
--- NOTE | 2017-04-05 09:21 | Discharge Inst-Complex ---
PDI Med Rec & Follow Up Appt. New Medications: Cephalexin (Keflex) 500 Mg Capsule 500 MG PO TID for 5 Days, #15 CAP Lactobacillus Acidophilus (Acidophilus) 1 Each Tab.chew 1 EACH PO BID for 15 Days, #30 TAB Phenytoin Sodium Extended (Dilantin) 100 Mg Capsule 200 MG PO DAILY for 30 Days, #60 CAP 6 Refills pt to take 200mg daily - may take an additional 200mg if symptoms/prodrome of seizure and call office. Meclizine HCl (Meclizine HCl) 25 Mg Tablet 25 MG PO TID PRN for DIZZINESS for 30 Days, #30 TAB 3 Refills Continued Medications: Folic Acid (Folic Acid) 0.8 Mg Tablet 0.8 MG PO DAILY, TAB Lamotrigine (Lamotrigine) 100 Mg Tablet 100 MG PO DAILY Lamotrigine (Lamotrigine) 150 Mg Tablet 150 MG PO HS Discontinued Medications: Phenytoin Sodium Extended (Dilantin) 100 Mg Capsule 300-400 MG PO UD TAKES 4 (100 MG) CAPSULES AT BEDTIME EXCEPT EVERY 3RD NIGHT TAKES 3(100 MG) CAPSULES Prescription: Transmitted to Pharmacy Activity, Diet and PDI Resume Normal Activity: Yes Discharge Diet: Regular Diet Diet for 24 Hours: No Alcohol Diet After 24 Hours: Clear Liquid if Nauseous Driving Instructions: No Driving/Refer to Symptoms to Reoprt to : Appetite Changes, Fever Over 101 Degrees F, Pain/ Pressure in Chest For Problems or Questions: Contact Your Physician, Go to Emergency Room MICHAEL LYNNE MD Apr 05, 2017 09:21
== END 2017-04-05 13:05 | disposition home or self-care (01) ==
LOC: ER 22:17 → EDUNIT# 22:17 → ICU 04-03 00:05 → UNDOADMOB 04-03 00:05 → ICU 04-03 01:00 → 4TH 04-04 11:39 → ICU 04-04 11:39
PROVIDERS: ADMIT Internal Medicine; ATTEND Family Medicine
DX: G40.909 Epilepsy, unspecified, not intractable, without status epilepticus (principal); S00.83XA Contusion of other part of head, initial encounter; S00.512A Abrasion of oral cavity, initial encounter; E78.00 Pure hypercholesterolemia, unspecified; J44.9 Chronic obstructive pulmonary disease, unspecified; M50.31 Other cervical disc degeneration, high cervical region; M47.812 Spondylosis without myelopathy or radiculopathy, cervical region; Z79.890 Hormone replacement therapy; Z79.899 Other long term (current) drug therapy; Z86.79 Personal history of other diseases of the circulatory system; W01.0XXA Fall on same level from slipping, tripping and stumbling without subsequent striking against object, initial encounter; Y92.012 Bathroom of single-family (private) house as the place of occurrence of the external cause; Y99.8 Other external cause status
CPT/HCPCS: 36415; 70450; 70486; 71010; 72125; 72170; 80048; 80053; 80164; 80175; 80185; 81000; 82550; 82553; 83735; 83880; 84100; 84443; 84484; 85007; 85025; 85027; 85610; 85730; 87077; 87081; 87088; 87186; 93005; 93041; 96361; 96365; G0378

== ENCOUNTER 2017-06-17 14:39 | Outpatient (RCR) | payer MEDICARE, OTHER ==
[~2017-06-17 14:39] MED LIST changes: +CEPH-507 PO; +FOLI0.8T PO; +LACT1TAB6 PO; +LAMO100T PO; +LAMO150T2 PO; +MECL-106 PO; +PHEN100C4 PO
== END 2017-08-08 13:59 | disposition home or self-care (01) ==
PROVIDERS: ATTEND Nurse Practitioner Family
DX: R42 Dizziness and giddiness (principal); R53.1 Weakness

== ENCOUNTER → 2018-04-06 | Outpatient (CLI) | payer MEDICARE, OTHER ==
[~2018-04-06] MED LIST changes: +DENO60DI SQ; +PHEN100C11 PO
== END | disposition home or self-care (01) ==
LOC: PREOP 06:11
PROVIDERS: ATTEND Surgery
DX: Z01.818 Encounter for other preprocedural examination (principal)

== ENCOUNTER 2018-04-10 05:47 | Outpatient (CLI) | payer MEDICARE, OTHER ==
[~2018-04-10] VITALS: Ht 167.6 cm; Wt 49.7 kg
[~2018-04-10 05:47] MED LIST changes: -DENO60DI SQ; -PHEN100C11 PO
[2018-04-10] MEDS ORDERED: PHEN100C11 PO (13:17)
[2018-04-10] MEDS ORDERED: DENO60DI SQ (13:17)
== END 2018-04-10 13:36 | disposition home or self-care (01) ==
LOC: PREOP 05:47
PROVIDERS: ATTEND Surgery
DX: Z01.818 Encounter for other preprocedural examination (principal)

== ENCOUNTER 2018-04-12 09:41 | Day surgery (SDC) | payer MEDICARE, OTHER ==
[~2018-04-12] VITALS: Ht 167.6 cm; Wt 49.7 kg
[~2018-04-12 09:41] MED LIST changes: +DENO60DI SQ; +PHEN100C11 PO
--- OUTSIDE RECORDS SUMMARY | 2018-04-12 09:45 | XMS REPORT | Clinical Summary ---
Author Author [facility] Organization [facility] Address Unknown Phone Unavailable Care Team Providers Care Magnetic Grinder Operator Name Role Phone Ángel Swenson MD Unavailable Unavailable Janet Gonzalez MD Unavailable Krissy Bennett RN Unavailable Maximiliano Gonzalez MD Unavailable Araceli Ferreira SUPPLIER RELATIONSHIP DIRECTOR-FLUID DYNAMICIST Unavailable Alexis Cesar MD Unavailable Evette Pang MD Unavailable Magali Zepeda MD PCP Source Comments Some departments are not documenting in the electronic medical record. If you do not see the information that you expected, contact Release of Information in the Health Information Management department at [phone] for further assistance in locating additional records.[facility] Allergies No Known Allergies Current Medications Prescription [...] (HCC) 09/07/2012 Seizures (HCC) 09/07/2012 Pituitary adenoma ([facility]) 09/01/2012 Overview: S/p resection of pituitary adenoma Pituitary tumor 08/13/2012 Malnutrition of moderate degree ([facility]) 08/13/2012 SIADH (syndrome of inappropriate ADH production) ([facility]) 08/13/2012 Depression 08/13/2012 Leukopenia 08/13/2012 Family History [...] SCREENING 1984 COLORECTAL CANCER 1994 SCREENING SHINGLES RECOMBINANT 1994 VACCINE (1 of 2) OSTEOPOROSIS SCREENING 2009 PNEUMONIA (PCV13/PPSV23) 2009 VACCINES (1 of 2 - PCV13) INFLUENZA VACCINE 01/11/2018 Results Not on filefrom Last 3 Months
--- OUTSIDE RECORDS SUMMARY | 2018-04-12 09:45 | XMS REPORT | Clinical Summary ---
Author Author [facility] Organization [facility] Address Unknown Phone Unavailable Care Team Providers Care Timber Treatment Plant Operator Name Role Phone PCP Unavailable Allergies Not on File Current Medications Not on file Active Problems Not on file Social History Tobacco Use Types Packs/Day Years Used Date Never Assessed Sex Assigned at Date Recorded Not on file Last Filed Vital Signs Not on file Plan of Treatment Not on file Results Not on filefrom Last 3 Months
--- OUTSIDE RECORDS SUMMARY | 2018-04-12 09:47 | XMS REPORT | CCD ---
Author Author Magali Zepeda Organization Magali Zepeda MD, [facility] Address [address] [place] [address] Phone Care Team Providers Care Material Man Name Role Phone PP Unavailable CCM Unavailable Summary Purpose Interface Exchange Insurance Providers Payer name Policy type / Coverage type Covered alliance party ID Effective Begin Date Effective End Date WPS Medicare Part B Medicare Part B [id number] 2017 Unknown [employer] Medicare Part B [id number] Unknown Family history Sister Diagnosis Age At Onset Epilepsy Unknown Son Diagnosis Age At Onset lymphoma Unknown Brother Diagnosis Age At Onset Stroke Unknown Diabetes mellitus Type 2 Unknown Alcoholism Unknown Mother Diagnosis Age At Onset Stroke Unknown Hypertension Unknown Social History Social History Element Codes Description Effective Dates Marital status Unknown Jose Guadalupe 02/10/2016 Number of children Unknown 2 02/10/2016 Employment Unknown Retired 02/10/[address]: 156733375 Never smoker 02/10/[address]: 586103094 Never drinks alcohol 02/10/2016 Has the patient ever used illegal drugs? Unknown Has never used illegal drugs 02/10/2016 Allergies, Adverse Reactions, Alerts Substance Reaction Codes Entered Date Inactivated Date Status * NO KNOWN DRUG ALLERGIES Unknown 02/10/2016 No Inactive Date Active Past Medical History Illness Codes Condition Status Onset Date Resolved Date Calculus of gallbladder without cholecystitis without obstruction ICD-9: 574.20 ICD-10: K80.20 Active 03/02/2017 Unknown Functional diarrhea ICD-9: 564.5 ICD-10: K59.1 Active 04/04/2018 Unknown Right upper quadrant abdominal rigidity ICD-9: 789.41 ICD-10: R19.31 Active 04/04/2018 Unknown Age-related osteoporosis without current pathological fracture ICD-9: 733.00 ICD-10: M81.0 Active 02/16/2018 Unknown Dysuria ICD-9: 788.1 ICD-10: R30.0 Active 02/09/2016 Unknown Other epilepsy, not intractable, without status epilepticus ICD-9: 345.10 ICD-10: G40.802 Active 08/11/2016 Unknown Slow transit constipation ICD-9: 564.01 ICD-10: K59.01 Active 04/15/2016 Unknown Urinary tract infection, site not specified ICD-9: 599.0 ICD-10: N39.0 Active 04/15/2016 Unknown Generalized idiopathic epilepsy and epileptic syndromes, not intractable, with status epilepticus ICD-9: 345.3 ICD-10: G40.301 Active 08/30/2016 Unknown Mixed incontinence ICD -9: 788.33 ICD-10: N39.46 Active 07/12/2017 Unknown Encounter for general adult medical examination with abnormal findings ICD-9: V70.0 ICD-10: Z00.01 Active 05/31/2016 Unknown 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 ICD-10: G62.0 Active 03/30/2017 Unknown Unsteadiness on feet ICD-9: 781.2 ICD-10: R26.81 Active 04/13/2017 Unknown Low back pain ICD-9: 724.2 ICD-10: M54.5 Active 08/11/2016 Unknown Other specified polyneuropathies ICD-9: 356.8 ICD-10: G62.89 Active 03/30/2017 Unknown Benign paroxysmal vertigo, bilateral ICD-9: 386.11 ICD-10: H81.13 Active 03/02/2017 Unknown Essential (primary) hypertension ICD-9: 401.1 ICD-10: I10 Active 08/30/2016 Unknown Rheumatoid arthritis without rheumatoid factor, multiple sites ICD-9: 714.0 ICD-10: M06.09 Active 02/09/2016 Unknown Pressure ulcer of sacral region, stage 1 ICD-9: 707.03 ICD-10: L89.151 Active 08/11/2016 Unknown Other abnormalities of gait and mobility ICD-9: 781.2 ICD-10: R26.89 Active 02/09/2016 Unknown Problems Condition Codes Effective Dates Condition Status Calculus of gallbladder without cholecystitis without obstruction ICD-9: 574.20 ICD-10: K80.20 03/02/2017 Active Functional diarrhea ICD-9: 564.5 ICD-10: K59.1 04/04/2018 Active Right upper quadrant abdominal rigidity ICD-9: 789.41 ICD-10: R19.31 04/04/2018 Active Age-related osteoporosis without current pathological fracture ICD-9: 733.00 ICD-10: M81.0 02/16/2018 Active Dysuria ICD-9: 788.1 ICD-10: R30.0 02/09/2016 Active Other epilepsy, not intractable, without status epilepticus ICD-9: 345.10 ICD-10: G40.802 08/11/2016 Active Slow transit constipation ICD-9: 564.01 ICD-10: K59.01 04/15/2016 Active Urinary tract infection, site not specified ICD-9: 599.0 ICD-10: N39.0 04/15/2016 Active Generalized idiopathic epilepsy and epileptic syndromes, not intractable, with status epilepticus ICD-9: 345.3 ICD-10: G40.301 08/30/2016 Active Mixed incontinence ICD -9: 788.33 ICD-10: N39.46 07/12/2017 Active Encounter for general adult medical examination with abnormal findings ICD-9: V70.0 ICD-10: Z00.01 05/31/2016 Active 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 ICD-10: G62.0 03/30/2017 Active Unsteadiness on feet ICD-9: 781.2 ICD-10: R26.81 04/13/2017 Active Low back pain ICD-9: 724.2 ICD-10: M54.5 08/11/2016 Active Other specified polyneuropathies ICD-9: 356.8 ICD-10: G62.89 03/30/2017 Active Benign paroxysmal vertigo, bilateral ICD-9: 386.11 ICD-10: H81.13 03/02/2017 Active Essential (primary) hypertension ICD-9: 401.1 ICD-10: I10 08/30/2016 Active Rheumatoid arthritis without rheumatoid factor, multiple sites ICD-9: 714.0 ICD-10: M06.09 02/09/2016 Active Pressure ulcer of sacral region, stage 1 ICD-9: 707.03 ICD-10: L89.151 08/11/2016 Active Other abnormalities of gait and mobility ICD-9: 781.2 ICD-10: R26.89 02/09/2016 Active Medications Medication Codes Instructions Start Date Stop Date Status Fill Instructions lamotrigine 100 mg tablet RxNorm: 375312 TAKE 1 TABLET BY MOUTH IN THE MORNING 03/31/2018 No Stop Date Active dicyclomine 10 mg capsule RxNorm: 122127 TAKE ONE CAPSULE BY MOUTH TWICE DAILY NEEDED 02/20/2018 No Stop Date Active Penlac 8 % topical solution RxNorm: 448006 1 Application TOP daily clean off every 7 days and restart application process 02/16/2018 09/13/2018 Active ok to dispense generic Keflex 500 mg capsule RxNorm: 202929 1 Capsule(s) PO QID 201702/22/2018 Inactive please call patient to let her know she needs to machine [facility] rx for antibiotic Dilantin Extended 100 mg capsule RxNorm: 612318 Capsule(s) PO UD 1 cap TID x 3 days then 1 cap qid x 1 day then repeat cycle 12/15/2017 04/13/2018 Active give 1 month supply lamotrigine 150 mg tablet RxNorm: 947911 1 Tablet(s) PO QHS 04/05/2018 Inactive lamotrigine 100 mg tablet RxNorm: 806345 1 Tablet(s) PO QAM 03/30/2018 Inactive Levaquin 500 mg tablet RxNorm: 238582 1 Tablet(s) PO daily 12/11/2017 Inactive Keflex 500 mg capsule RxNorm: 734520 1 Capsule(s) PO TID 201711/20/2017 Inactive Keflex 500 mg capsule RxNorm: 251440 1 Capsule(s) PO TID 201711/13/2017 Inactive Dilantin Extended 100 mg capsule RxNorm: 370263 Capsule(s) PO UD m3pill/tue3 pill/ wed 4 pill/ thur 2pill/fri 3pill/sat 4pill/sun 3 pill 201712/14/2017 Inactive Dilantin Extended 100 mg capsule RxNorm: 631814 Capsule(s) PO UD -Alternate 300 mg for two days in a row and then 400 mg for one day and repeat cycle 10/04/2017 10/12/2017 Inactive Augmentin 500 mg-125 mg tablet RxNorm: 497745 1 Tablet(s) PO TID 07/15/2017 07/14/2017 Inactive Augmentin 500 mg-125 mg tablet RxNorm: 101512 1 Tablet(s) PO TID 07/15/2017 07/21/2017 Inactive Dilantin Extended 100 mg capsule RxNorm: 441729 1 Capsule(s) PO daily -Alternate 300 mg and 400 mg every other day 06/07/2017 10/03/2017 Inactive Bactrim DS 800 mg-160 mg tablet RxNorm: 358883 1 Tablet(s) PO BID 05/02/2017 05/08/2017 Inactive Dilantin Extended 100 mg capsule RxNorm: 210459 1 Capsule(s) PO daily in the afternoon and 2 Capsules PO HS- Will take an additional pill if she has a lot of jerking 04/27/2017 06/06/2017 Inactive Keflex 500 mg capsule RxNorm: 093953 1 Capsule(s) PO TID 201604/23/2017 Inactive dicyclomine 10 mg capsule RxNorm: 042099 1 Capsule(s) PO BID as needed 03/30/2017 05/28/2017 Inactive Senna with Docusate Sodium 8.6 mg-50 mg tablet RxNorm: 104753 1 Tablet(s) PO BID as needed constipation 03/02/20172017 Inactive Keflex 500 mg capsule RxNorm: 350491 1 Capsule(s) PO TID 201608/20/2016 Inactive Levaquin 500 mg tablet RxNorm: 513386 1 Tablet(s) PO daily 09/201504/22/2016 Inactive ciprofloxacin 500 mg tablet RxNorm: 360244 1 Tablet(s) PO BID 02/10/2016 02/16/2016 Inactive prednisone 10 mg tablet RxNorm: 622737 1 Tablet(s) PO as needed for pain No Start Date Active Prolia 60 mg/mL subcutaneous syringe RxNorm: 146319 1 injection SQ Q6 months No Start Date Active lamotrigine 150 mg tablet RxNorm: 209157 1 Tablet(s) PO QHS No Start Date 12/06/2017 Inactive lamotrigine 100 mg tablet RxNorm: 562451 1 Tablet(s) PO QAM No Start Date 12/06/2017 Inactive Dilantin Extended 100 mg capsule RxNorm: 570720 Capsule(s) PO TAKES FOUR CAPSULES FOR 2 DAYS, THEN THREE CAPSULES FOR 1 DAY, THEN REPEATS No Start Date 04/26/2017 Inactive Humira 20 mg/0.4 mL subcutaneous syringe kit RxNorm: 237179 1 injection SQ every 2 weeks- Prescribed by Dr. Baker No Start Date 05/23/2017 Inactive Medication Administered No Medication Administered data Immunizations No Immunization data Assessments Condition Codes Effective Dates Calculus of gallbladder without cholecystitis without obstruction ICD-10: K80.20 ICD-9: 574.20 04/04/2018 Functional diarrhea ICD-10: K59.1 ICD-9: 564.5 04/04/2018 Right upper quadrant abdominal rigidity ICD-10: R19.31 ICD-9: 789.41 04/04/2018 Dysuria ICD-10: R30.0 ICD-9: 788.1 02/16/2018 Age-related osteoporosis without current pathological fracture ICD-10: M81.0 ICD-9: 733.00 02/16/2018 Slow transit constipation ICD-10: K59.01 ICD-9: 564.01 02/16/2018 Other epilepsy, not intractable, without status epilepticus ICD-10: G40.802 ICD-9: 345.10 02/16/2018 Urinary tract infection, site not specified ICD-10: N39.0 ICD-9: 599.0 11/14/2017 Mixed incontinence ICD-10: N39.46 ICD-9: 788.33 07/12/2017 Encounter for general adult medical examination with abnormal findings ICD-10: Z00.01 ICD-9: V70.0 06/07/2017 Drug-induced polyneuropathy ICD-10: G62.0 ICD-9: 357.7 05/24/2017 Generalized idiopathic epilepsy and epileptic syndromes, not intractable, with status epilepticus ICD-10: G40.301 ICD-9: 345.3 04/13/2017 Unsteadiness on feet ICD-10: R26.81 ICD-9: 781.2 04/13/2017 Other specified polyneuropathies ICD-10: G62.89 ICD-9: 356.8 03/30/2017 Low back pain ICD-10: M54.5 ICD-9: 724.2 03/30/2017 Benign paroxysmal vertigo, bilateral ICD-10: H81.13 ICD-9: 386.11 03/02/2017 Rheumatoid arthritis without rheumatoid factor, multiple sites ICD-10: M06.09 ICD-9: 714.0 08/30/2016 Pressure ulcer of sacral region, stage 1 ICD-10: L89.151 ICD-9: 707.03 08/11/2016 Other abnormalities of gait and mobility ICD-10: R26.89 ICD-9: 781.2 02/10/2016 Reason For Visit Reason For Visit Effective Dates Notes diarrhea 04/04/2018 muscle weakness 02/16/2018 constipation 12/30/2017 muscle weakness 10/13/2017 muscle weakness 07/12/2017 Annual Medicare Wellness Exam 06/07/2017 muscle weakness 05/24/2017 muscle weakness 04/27/2017 Hospital Follow Up 04/13/2017 gait abnormality 03/30/2017 gait abnormality 03/02/2017 gait abnormality 08/30/2016 back pain 08/11/2016 Annual Medicare Wellness Exam 06/01/2016 dysuria 04/16/2016 gait abnormality 02/10/2016 Results Observation Observation Code Item Item Code Result Date Dilantin Ord7 DILANTIN 10.6 UG/ML 04/11/2018 Culture Urine [id number] URINE CULTURE SEE NOTES 02/20/2018 Culture Urine [id number] Continued Results 02/20/2018 Urine Culture Ucult Complete >100,000 col/ml aerobic growth sent to ref lab 02/17/2018 Dilantin Ord7 DILANTIN 14.4 UG/ML 02/16/2018 Comp Metabolic Rky925 NA 135 mEq/L 02/16/2018 Comp Metabolic Evo246 K 3.8 mEq/L 02/16/2018 Comp Metabolic Axj466 CL 99 mEq/L 02/16/2018 Comp Metabolic Syn135 CO2 28.0 mEq/L 02/16/2018 Comp Metabolic Koq715 ANION GAP 12 02/16/2018 Comp Metabolic Kky892 GLUCOSE 101 mg/dL 02/16/2018 Comp Metabolic Buh526 Creat 0.8 mg/dL 02/16/2018 Comp Metabolic Mqd257 eGFR 75 ml/min/1.73m2 02/16/2018 Comp Metabolic Qei147 BUN 20 mg/dL 02/16/2018 Comp Metabolic Aun160 B/C Ratio 25.0 Ratio 02/16/2018 Comp Metabolic Eyn481 CALCIUM 8.9 mg/dL 02/16/2018 Comp Metabolic Uvh725 ALK PHOS 95 U/L 02/16/2018 Comp Metabolic Ixj224 AST(SGOT) 13 U/L 02/16/2018 Comp Metabolic Ouo944 ALT(SGPT) 7 U/L 02/16/2018 Comp Metabolic Vjh700 BILI T 0.4 mg/dL 02/16/2018 Comp Metabolic Djn268 ALBUMIN 3.6 g/dL 02/16/2018 Comp Metabolic Ikx060 TPRO 7.2 g/dL 02/16/2018 Comp Metabolic Kke766 GLOB 3.6 g/dL 02/16/2018 Comp Metabolic Hlo293 A/G Ratio 1.0 Ratio 02/16/2018 Comp Metabolic Idh822 Osmo 273 mOsmo 02/16/2018 Urine Culture Ucult Complete >100,000 col/ml aerobic growth sent to ref lab 11/15/2017 Comp Metabolic Bjy723 NA 136 mEq/L 10/13/2017 Comp Metabolic Ovj048 K 4.0 mEq/L 10/13/2017 Comp Metabolic Dht568 CL 98 mEq/L 10/13/2017 Comp Metabolic Kns122 CO2 28.0 mEq/L 10/13/2017 Comp Metabolic Vac546 ANION GAP 14 10/13/2017 Comp Metabolic Kme035 GLUCOSE 94 mg/dL 10/13/2017 Comp Metabolic Fih702 Creat 0.7 mg/dL 10/13/2017 Comp Metabolic Xfs410 eGFR 82 ml/min/1.73m2 10/13/2017 Comp Metabolic Teo365 BUN 26 mg/dL 10/13/2017 Comp Metabolic Usi945 B/C Ratio 35.1 Ratio 10/13/2017 Comp Metabolic Sgy904 CALCIUM 9.1 mg/dL 10/13/2017 Comp Metabolic Vtg435 ALK PHOS 98 U/L 10/13/2017 Comp Metabolic Jka372 AST(SGOT) 15 U/L 10/13/2017 Comp Metabolic Ekt864 ALT(SGPT) 8 U/L 10/13/2017 Comp Metabolic Bhs696 BILI T 0.4 mg/dL 10/13/2017 Comp Metabolic Dzo162 ALBUMIN 3.7 g/dL 10/13/2017 Comp Metabolic Wty240 TPRO 7.8 g/dL 10/13/2017 Comp Metabolic Iaz396 GLOB 4.1 g/dL 10/13/2017 Comp Metabolic Eao293 A/G Ratio 0.9 Ratio 10/13/2017 Comp Metabolic Qyu126 Osmo 276 mOsmo 10/13/2017 Dilantin Ord7 DILANTIN 21.4 Result Verified By Repeat Analysis UG/ML 10/13/2017 Dilantin Ord7 DILANTIN 24.1 Result Verified By Repeat Analysis UG/ML 10/03/2017 Dilantin Ord7 DILANTIN 18.1 UG/ML 06/30/2017 Dilantin Ord7 DILANTIN 22.7 UG/ML 06/16/2017 Dilantin Ord7 DILANTIN 26.1 UG/ML 06/07/2017 Dilantin Ord7 DILANTIN 24.1 UG/ML 05/24/2017 Dilantin Ord7 DILANTIN 19.6 UG/ML 05/11/2017 Culture Urine [id number] URINE CULTURE SEE NOTES 05/06/2017 Culture Urine [id number] Continued Results 05/06/2017 Urine Culture Ucult Complete >100,000 col/ml aerobic growth sent to ref lab 05/03/2017 Dilantin Ord7 DILANTIN 12.6 UG/ML 04/27/2017 Calcium Ord79 CALCIUM 9.3 mg/dL 04/19/2017 Dilantin Ord7 DILANTIN 21.6 UG/ML 04/19/2017 Dilantin Ord7 DILANTIN 10.3 UG/ML 04/13/2017 Dilantin Ord7 DILANTIN 21.9 UG/ML 04/07/2017 Comp Metabolic Cpe428 NA 137 mEq/L 03/30/2017 Comp Metabolic Yue761 K 3.7 mEq/L 03/30/2017 Comp Metabolic Rrx618 CL 98 mEq/L 03/30/2017 Comp Metabolic Iyj908 CO2 29.0 mEq/L 03/30/2017 Comp Metabolic Hbh564 ANION GAP 14 03/30/2017 Comp Metabolic Zqs882 GLUCOSE 100 mg/dL 03/30/2017 Comp Metabolic Prw311 Creat 0.9 mg/dL 03/30/2017 Comp Metabolic Bfs077 eGFR 88 ml/min/1.73m2 03/30/2017 Comp Metabolic Hrc497 BUN 22 mg/dL 03/30/2017 Comp Metabolic Qkc624 B/C Ratio 24.4 Ratio 03/30/2017 Comp Metabolic Xtd181 CALCIUM 9.4 mg/dL 03/30/2017 Comp Metabolic Qte473 ALK PHOS 113 U/L 03/30/2017 Comp Metabolic Jfy353 AST(SGOT) 16 U/L 03/30/2017 Comp Metabolic Gbp977 ALT(SGPT) 7 U/L 03/30/2017 Comp Metabolic Tes689 BILI T 0.3 mg/dL 03/30/2017 Comp Metabolic Iri037 ALBUMIN 3.9 g/dL 03/30/2017 Comp Metabolic Ahq738 TPRO 8.0 g/dL 03/30/2017 Comp Metabolic Bve008 GLOB 4.1 g/dL 03/30/2017 Comp Metabolic Olh889 A/G Ratio 0.9 Ratio 03/30/2017 Comp Metabolic Lyx601 Osmo 277 mOsmo 03/30/2017 Lipid Ord30 CHOL 214 mg/dL 03/30/2017 Lipid Ord30 HDL 61.0 mg/dl 03/30/2017 Lipid Ord30 TRIG 130 mg/dL 03/30/2017 Lipid Ord30 LDL 127 mg/dL 03/30/2017 Lipid Ord30 C/HDL 3.5 Ratio 03/30/2017 Dilantin Ord7 DILANTIN 32.5 UG/ML 03/30/2017 Folate Ord36 Folate 16.46 ng/mL 03/30/2017 Tsh Ord6 hTSH II 0.95 uIU/mL 03/30/2017 B12 Ddt086 B12 592.00 pg/ml 03/30/2017 Cbc With Differential Ord2 WBC 1.09 K/ul 03/30/2017 Cbc With Differential Ord2 RBC 3.92 M/ul 03/30/2017 Cbc With Differential Ord2 HGB 12.1 g/dl 03/30/2017 Cbc With Differential Ord2 HCT 35.0 % 03/30/2017 Cbc With Differential Ord2 Neut% 27.5 % 03/30/2017 Cbc With Differential Ord2 MCV 89.3 fl 03/30/2017 Cbc With Differential Ord2 Lymph% 40.4 % 03/30/2017 Cbc With Differential Ord2 MCH 30.9 pg 03/30/2017 Cbc With Differential Ord2 [place]% 23.9 % 03/30/2017 Cbc With Differential Ord2 MCHC 34.6 pg 03/30/2017 Cbc With Differential Ord2 Eos% 7.3 % 03/30/2017 Cbc With Differential Ord2 Baso% 0.9 % 03/30/2017 Cbc With Differential Ord2 PLT 149 K/ul 03/30/2017 Cbc With Differential Ord2 RDW 13.3 % 03/30/2017 Cbc With Differential Ord2 Neut ABS# 0.30 K/ul 03/30/2017 Cbc With Differential Ord2 Lymph ABS# 0.44 K/ul 03/30/2017 Cbc With Differential Ord2 [place] ABS# 0.3 K/ul 03/30/2017 Cbc With Differential Ord2 Eos ABS# 0.1 K/ul 03/30/2017 Cbc With Differential Ord2 Baso ABS# 0.0 K/ul 03/30/2017 Cbc With Differential Ord2 WBC 1.86 K/ul 08/11/2016 Cbc With Differential Ord2 RBC 4.06 M/ul 08/11/2016 Cbc With Differential Ord2 HGB 12.3 g/dl 08/11/2016 Cbc With Differential Ord2 HCT 35.4 % 08/11/2016 Cbc With Differential Ord2 Neut% 35.6 % 08/11/2016 Cbc With Differential Ord2 MCV 87.2 fl 08/11/2016 Cbc With Differential Ord2 Lymph% 31.7 % 08/11/2016 Cbc With Differential Ord2 MCH 30.3 pg 08/11/2016 Cbc With Differential Ord2 [place]% 31.7 % 08/11/2016 Cbc With Differential Ord2 MCHC 34.7 pg 08/11/2016 Cbc With Differential Ord2 Eos% 0.5 % 08/11/2016 Cbc With Differential Ord2 Baso% 0.5 % 08/11/2016 Cbc With Differential Ord2 PLT 236 K/ul 08/11/2016 Cbc With Differential Ord2 RDW 13.2 % 08/11/2016 Cbc With Differential Ord2 Neut ABS# 0.66 K/ul 08/11/2016 Cbc With Differential Ord2 Lymph ABS# 0.59 K/ul 08/11/2016 Cbc With Differential Ord2 [place] ABS# 0.6 K/ul 08/11/2016 Cbc With Differential Ord2 Eos ABS# 0.0 K/ul 08/11/2016 Cbc With Differential Ord2 Baso ABS# 0.0 K/ul 08/11/2016 Dilantin Ord7 DILANTIN 17.2 UG/ML 08/11/2016 Tsh Ord6 hTSH II 0.82 uIU/mL 08/11/2016 Comp Metabolic Iso744 NA 131 mEq/L 08/11/2016 Comp Metabolic Idc025 K 4.1 mEq/L 08/11/2016 Comp Metabolic Kgr126 CL 93 mEq/L 08/11/2016 Comp Metabolic Hda863 CO2 29.0 mEq/L 08/11/2016 Comp Metabolic Znh772 ANION GAP 13 08/11/2016 Comp Metabolic Hdr537 GLUCOSE 120 mg/dL 08/11/2016 Comp Metabolic Oon013 Creat 0.8 mg/dL 08/11/2016 Comp Metabolic Eqj811 eGFR 101 ml/min/1.73m2 08/11/2016 Comp Metabolic Pig033 BUN 18 mg/dL 08/11/2016 Comp Metabolic Utv601 B/C Ratio 22.5 Ratio 08/11/2016 Comp Metabolic Sxi499 CALCIUM 9.5 mg/dL 08/11/2016 Comp Metabolic Qbi071 ALK PHOS 104 U/L 08/11/2016 Comp Metabolic Rcc663 AST(SGOT) 16 U/L 08/11/2016 Comp Metabolic Yef741 ALT(SGPT) 8 U/L 08/11/2016 Comp Metabolic Lgf079 BILI T 0.4 mg/dL 08/11/2016 Comp Metabolic Ucw712 ALBUMIN 3.8 g/dL 08/11/2016 Comp Metabolic Cxx906 TPRO 8.4 g/dL 08/11/2016 Comp Metabolic Gny538 GLOB 4.6 g/dL 08/11/2016 Comp Metabolic Fyg018 A/G Ratio 0.8 Ratio 08/11/2016 Comp Metabolic Fyt500 Osmo 266 mOsmo 08/11/2016 Culture Urine [id number] URINE CULTURE SEE NOTES 04/19/2016 Culture Urine [id number] Continued Results 04/19/2016 Urine Culture Ucult Complete >100,000 col/ml aerobic growth sent to ref lab 04/17/2016 Culture Urine [id number] URINE CULTURE SEE NOTES 02/13/2016 Culture Urine [id number] Continued Results 02/13/2016 Urine Culture Ucult Complete >100,000 col/ml aerobic growth sent to ref lab 02/11/2016 Dilantin Ord7 DILANTIN 19.2 UG/ML 02/10/2016 Review of Systems System Result Effective Dates Constitutional recent illness 04/04/2018 Constitutional No chills 04/04/2018 Constitutional fatigue 04/04/2018 Constitutional No fever 04/04/2018 Constitutional No insomnia 04/04/2018 Constitutional malaise 04/04/2018 Eyes No blindness 04/04/2018 Eyes No vision change 04/04/2018 Ears/Nose/Throat/Neck No dizziness 2017 Ears/Nose/Throat/Neck No dysphagia 2017 Ears/Nose/Throat/Neck No headache 2017 Ears/Nose/Throat/Neck No hearing loss Ears/Nose/Throat/Neck No nasal allergies 04/04/2018 Ears/Nose/Throat/Neck No sore throat Cardiovascular No chest pain/pressure Cardiovascular No dyspnea 04/04/2018 Cardiovascular No edema 04/04/2018 Cardiovascular No exercise intolerance Cardiovascular No fatigue 04/04/2018 Cardiovascular No near-syncope/dizziness 04/04/2018 Respiratory No chest tightness 2017 Respiratory No cough 04/04/2018 Respiratory No dyspnea 04/04/2018 Respiratory No pedal edema 04/04/2018 Gastrointestinal abdominal pain 2017 Gastrointestinal No gastroesophageal reflux 04/04/2018 Gastrointestinal nausea 04/04/2018 Musculoskeletal stiffness 04/04/2018 Musculoskeletal No swelling 04/04/2018 Musculoskeletal arthralgia(s) 04/04/2018 Musculoskeletal muscle weakness 2017 Musculoskeletal No myalgias 04/04/2018 Neurologic dyskinesia or tremor 2017 Neurologic gait abnormality 04/04/2018 Psychiatric anxiety 04/04/2018 Psychiatric No depression 04/04/2018 Gastrointestinal diarrhea 04/04/2018 Constitutional No recent illness 2017 Constitutional No chills 02/16/2018 Constitutional No diaphoresis 02/16/2018 Constitutional No fever 02/16/2018 Eyes No blindness 02/16/2018 Ears/Nose/Throat/Neck No nasal discharge 02/16/2018 Cardiovascular No chest pain/pressure 11/2017 Cardiovascular No dyspnea 02/16/2018 Respiratory No cough 02/16/2018 Respiratory No dyspnea 02/16/2018 Gastrointestinal No abdominal pain 2017 Musculoskeletal No stiffness 02/16/2018 Musculoskeletal No swelling 02/16/2018 Musculoskeletal muscle weakness 2017 Musculoskeletal No myalgias 02/16/2018 Neurologic No alteration of consciousness 02/16/2018 Neurologic No mental status change 2017 Psychiatric No anxiety 02/16/2018 Psychiatric No depression 02/16/2018 Genitourinary/Nephrology urinary urgency 02/16/2018 Genitourinary/Nephrology urinary frequency 02/16/2018 Constitutional No recent illness 2017 Constitutional No chills 12/30/2017 Constitutional No diaphoresis 12/30/2017 Constitutional No fever 12/30/2017 Eyes No blindness 12/30/2017 Ears/Nose/Throat/Neck No nasal discharge 12/30/2017 Cardiovascular No chest pain/pressure Cardiovascular No dyspnea 12/30/2017 Respiratory No cough 12/30/2017 Respiratory No dyspnea 12/30/2017 Gastrointestinal No abdominal pain 2017 Musculoskeletal No stiffness 12/30/2017 Musculoskeletal No swelling 12/30/2017 Musculoskeletal No muscle weakness 2017 Musculoskeletal No myalgias 12/30/2017 Neurologic No alteration of consciousness 12/30/2017 Neurologic No mental status change 2017 Psychiatric No anxiety 12/30/2017 Psychiatric No depression 12/30/2017 Gastrointestinal constipation 12/30/2017 Constitutional No recent illness 2017 Constitutional No chills 10/13/2017 Constitutional No diaphoresis 10/13/2017 Constitutional No fever 10/13/2017 Eyes No blindness 10/13/2017 Ears/Nose/Throat/Neck No nasal discharge 10/13/2017 Cardiovascular No chest pain/pressure 08/2017 Cardiovascular No dyspnea 10/13/2017 Respiratory No cough 10/13/2017 Respiratory No dyspnea 10/13/2017 Neurologic No alteration of consciousness 10/13/2017 Neurologic No mental status change 2017 Gastrointestinal No abdominal pain 2017 Musculoskeletal No stiffness 10/13/2017 Musculoskeletal No swelling 10/13/2017 Musculoskeletal No muscle weakness 2017 Musculoskeletal No myalgias 10/13/2017 Psychiatric No anxiety 10/13/2017 Psychiatric No depression 10/13/2017 Constitutional No recent illness 2017 Constitutional No chills 07/12/2017 Constitutional fatigue 07/12/2017 Constitutional No fever 07/12/2017 Constitutional No insomnia 07/12/2017 Constitutional malaise 07/12/2017 Eyes No blindness 07/12/2017 Eyes No vision change 07/12/2017 Ears/Nose/Throat/Neck No dizziness 2017 Ears/Nose/Throat/Neck No dysphagia 2017 Ears/Nose/Throat/Neck No headache 2017 Ears/Nose/Throat/Neck No hearing loss Ears/Nose/Throat/Neck No nasal allergies 07/12/2017 Ears/Nose/Throat/Neck No sore throat Ears/Nose/Throat/Neck No postnasal drip 07/12/2017 Ears/Nose/Throat/Neck No sinus congestion 07/12/2017 Cardiovascular No chest pain/pressure Cardiovascular No dyspnea 07/12/2017 Cardiovascular No edema 07/12/2017 Cardiovascular No exercise intolerance Cardiovascular No fatigue 07/12/2017 Cardiovascular No near-syncope/dizziness 07/12/2017 Respiratory No chest tightness 2017 Respiratory No cough 07/12/2017 Respiratory No dyspnea 07/12/2017 Respiratory No pedal edema 07/12/2017 Gastrointestinal No abdominal pain 2017 Gastrointestinal No constipation 2017 Gastrointestinal No diarrhea 07/12/2017 Gastrointestinal No gastroesophageal reflux 07/12/2017 Gastrointestinal No nausea 07/12/2017 Gastrointestinal No vomiting 07/12/2017 Musculoskeletal stiffness 07/12/2017 Musculoskeletal No swelling 07/12/2017 Musculoskeletal arthralgia(s) 07/12/2017 Musculoskeletal muscle weakness 2017 Musculoskeletal No myalgias 07/12/2017 Neurologic No dizziness 07/12/2017 Neurologic dyskinesia or tremor 2017 Neurologic gait abnormality 07/12/2017 Neurologic No headache 07/12/2017 Neurologic No neck pain 07/12/2017 Neurologic No syncope 07/12/2017 Psychiatric anxiety 07/12/2017 Psychiatric No depression 07/12/2017 Genitourinary/Nephrology urinary incontinence 07/12/2017 Constitutional No recent illness 2016 Constitutional No chills 06/07/2017 Constitutional No diaphoresis 06/07/2017 Constitutional No fever 06/07/2017 Eyes No eye erythema 06/07/2017 Ears/Nose/Throat/Neck No nasal discharge 06/07/2017 Cardiovascular No chest pain/pressure Cardiovascular No dyspnea 06/07/2017 Respiratory No cough 06/07/2017 Respiratory No dyspnea 06/07/2017 Neurologic No alteration of consciousness 06/07/2017 Neurologic No mental status change 2016 Constitutional recent illness 05/24/2017 Constitutional No chills 05/24/2017 Constitutional fatigue 05/24/2017 Constitutional No fever 05/24/2017 Constitutional No insomnia 05/24/2017 Constitutional malaise 05/24/2017 Eyes No blindness 05/24/2017 Eyes No vision change 05/24/2017 Ears/Nose/Throat/Neck No dizziness 2016 Ears/Nose/Throat/Neck No dysphagia 2016 Ears/Nose/Throat/Neck No headache 2016 Ears/Nose/Throat/Neck No hearing loss 05/2017 Ears/Nose/Throat/Neck No nasal allergies 05/24/2017 Ears/Nose/Throat/Neck No sore throat 05/2017 Ears/Nose/Throat/Neck No postnasal drip 05/24/2017 Ears/Nose/Throat/Neck No sinus congestion 05/24/2017 Cardiovascular No chest pain/pressure 05/2017 Cardiovascular No dyspnea 05/24/2017 Cardiovascular No edema 05/24/2017 Cardiovascular No exercise intolerance Cardiovascular No fatigue 05/24/2017 Cardiovascular No near-syncope/dizziness 05/24/2017 Respiratory No chest tightness 2016 Respiratory No cough 05/24/2017 Respiratory No dyspnea 05/24/2017 Respiratory No pedal edema 05/24/2017 Gastrointestinal No abdominal pain 2016 Gastrointestinal No constipation 2016 Gastrointestinal No diarrhea 05/24/2017 Gastrointestinal No gastroesophageal reflux 05/24/2017 Gastrointestinal No nausea 05/24/2017 Gastrointestinal No vomiting 05/24/2017 Musculoskeletal stiffness 05/24/2017 Musculoskeletal No swelling 05/24/2017 Musculoskeletal arthralgia(s) 05/24/2017 Musculoskeletal muscle weakness 2016 Musculoskeletal No myalgias 05/24/2017 Neurologic No dizziness 05/24/2017 Neurologic dyskinesia or tremor 2016 Neurologic gait abnormality 05/24/2017 Neurologic No headache 05/24/2017 Neurologic No neck pain 05/24/2017 Neurologic No syncope 05/24/2017 Psychiatric anxiety 05/24/2017 Psychiatric No depression 05/24/2017 Constitutional recent illness 04/27/2017 Constitutional No chills 04/27/2017 Constitutional fatigue 04/27/2017 Constitutional No fever 04/27/2017 Constitutional No insomnia 04/27/2017 Constitutional malaise 04/27/2017 Eyes No blindness 04/27/2017 Eyes No vision change 04/27/2017 Ears/Nose/Throat/Neck No dizziness 2016 Ears/Nose/Throat/Neck No dysphagia 2016 Ears/Nose/Throat/Neck No headache 2016 Ears/Nose/Throat/Neck No hearing loss Ears/Nose/Throat/Neck No nasal allergies 04/27/2017 Ears/Nose/Throat/Neck No sore throat Ears/Nose/Throat/Neck No postnasal drip 04/27/2017 Ears/Nose/Throat/Neck No sinus congestion 04/27/2017 Cardiovascular No chest pain/pressure Cardiovascular No dyspnea 04/27/2017 Cardiovascular No edema 04/27/2017 Cardiovascular No exercise intolerance Cardiovascular No fatigue 04/27/2017 Cardiovascular No near-syncope/dizziness 04/27/2017 Respiratory No chest tightness 2016 Respiratory No cough 04/27/2017 Respiratory No dyspnea 04/27/2017 Respiratory No pedal edema 04/27/2017 Gastrointestinal No abdominal pain 2016 Gastrointestinal No constipation 2016 Gastrointestinal No diarrhea 04/27/2017 Gastrointestinal No gastroesophageal reflux 04/27/2017 Gastrointestinal No nausea 04/27/2017 Gastrointestinal No vomiting 04/27/2017 Musculoskeletal stiffness 04/27/2017 Musculoskeletal No swelling 04/27/2017 Musculoskeletal arthralgia(s) 04/27/2017 Musculoskeletal muscle weakness 2016 Musculoskeletal No myalgias 04/27/2017 Neurologic No dizziness 04/27/2017 Neurologic dyskinesia or tremor 2016 Neurologic gait abnormality 04/27/2017 Neurologic No headache 04/27/2017 Neurologic No neck pain 04/27/2017 Neurologic No syncope 04/27/2017 Psychiatric anxiety 04/27/2017 Psychiatric No depression 04/27/2017 Constitutional recent illness 04/13/2017 Constitutional No chills 04/13/2017 Constitutional fatigue 04/13/2017 Constitutional No fever 04/13/2017 Constitutional No insomnia 04/13/2017 Constitutional malaise 04/13/2017 Eyes No blindness 04/13/2017 Eyes No vision change 04/13/2017 Ears/Nose/Throat/Neck No dizziness 2016 Ears/Nose/Throat/Neck No dysphagia 2016 Ears/Nose/Throat/Neck No headache 2016 Ears/Nose/Throat/Neck No hearing loss 06/2016 Ears/Nose/Throat/Neck No nasal allergies 04/13/2017 Ears/Nose/Throat/Neck No sore throat 06/2016 Ears/Nose/Throat/Neck No postnasal drip 04/13/2017 Ears/Nose/Throat/Neck No sinus congestion 04/13/2017 Cardiovascular No chest pain/pressure 06/2016 Cardiovascular No dyspnea 04/13/2017 Cardiovascular No edema 04/13/2017 Cardiovascular No exercise intolerance Cardiovascular No fatigue 04/13/2017 Cardiovascular No near-syncope/dizziness 04/13/2017 Respiratory No chest tightness 2016 Respiratory No cough 04/13/2017 Respiratory No dyspnea 04/13/2017 Respiratory No pedal edema 04/13/2017 Gastrointestinal No abdominal pain 2016 Gastrointestinal No constipation 2016 Gastrointestinal No diarrhea 04/13/2017 Gastrointestinal No gastroesophageal reflux 04/13/2017 Gastrointestinal No nausea 04/13/2017 Gastrointestinal No vomiting 04/13/2017 Musculoskeletal stiffness 04/13/2017 Musculoskeletal No swelling 04/13/2017 Musculoskeletal arthralgia(s) 04/13/2017 Musculoskeletal muscle weakness 2016 Musculoskeletal No myalgias 04/13/2017 Neurologic No dizziness 04/13/2017 Neurologic dyskinesia or tremor 2016 Neurologic gait abnormality 04/13/2017 Neurologic No headache 04/13/2017 Neurologic No neck pain 04/13/2017 Neurologic No syncope 04/13/2017 Psychiatric anxiety 04/13/2017 Psychiatric No depression 04/13/2017 Constitutional No recent illness 2016 Constitutional No chills 03/30/2017 Constitutional fatigue 03/30/2017 Constitutional No fever 03/30/2017 Constitutional No insomnia 03/30/2017 Constitutional malaise 03/30/2017 Eyes No blindness 03/30/2017 Eyes No vision change 03/30/2017 Ears/Nose/Throat/Neck No dizziness 2016 Ears/Nose/Throat/Neck No dysphagia 2016 Ears/Nose/Throat/Neck No headache 2016 Ears/Nose/Throat/Neck No hearing loss Ears/Nose/Throat/Neck No nasal allergies 03/30/2017 Ears/Nose/Throat/Neck No sore throat Ears/Nose/Throat/Neck No postnasal drip 03/30/2017 Ears/Nose/Throat/Neck No sinus congestion 03/30/2017 Cardiovascular No chest pain/pressure Cardiovascular No dyspnea 03/30/2017 Cardiovascular No edema 03/30/2017 Cardiovascular No exercise intolerance Cardiovascular No fatigue 03/30/2017 Cardiovascular No near-syncope/dizziness 03/30/2017 Respiratory No chest tightness 2016 Respiratory No cough 03/30/2017 Respiratory No dyspnea 03/30/2017 Respiratory No pedal edema 03/30/2017 Gastrointestinal No abdominal pain 2016 Gastrointestinal No constipation 2016 Gastrointestinal No diarrhea 03/30/2017 Gastrointestinal No gastroesophageal reflux 03/30/2017 Gastrointestinal No nausea 03/30/2017 Gastrointestinal No vomiting 03/30/2017 Musculoskeletal stiffness 03/30/2017 Musculoskeletal No swelling 03/30/2017 Musculoskeletal arthralgia(s) 03/30/2017 Musculoskeletal muscle weakness 2016 Musculoskeletal No myalgias 03/30/2017 Dermatologic No rash 03/30/2017 Dermatologic No sores 03/30/2017 Dermatologic No scar 03/30/2017 Neurologic No dizziness 03/30/2017 Neurologic dyskinesia or tremor 2016 Neurologic gait abnormality 03/30/2017 Neurologic No headache 03/30/2017 Neurologic No neck pain 03/30/2017 Neurologic No syncope 03/30/2017 Psychiatric No anxiety 03/30/2017 Psychiatric No depression 03/30/2017 Constitutional No recent illness 2016 Constitutional No chills 03/02/2017 Constitutional fatigue 03/02/2017 Constitutional No fever 03/02/2017 Constitutional No insomnia 03/02/2017 Constitutional malaise 03/02/2017 Eyes No blindness 03/02/2017 Eyes No vision change 03/02/2017 Ears/Nose/Throat/Neck No dizziness 2016 Ears/Nose/Throat/Neck No dysphagia 2016 Ears/Nose/Throat/Neck No headache 2016 Ears/Nose/Throat/Neck No hearing loss Ears/Nose/Throat/Neck No nasal allergies 03/02/2017 Ears/Nose/Throat/Neck No sore throat Ears/Nose/Throat/Neck No postnasal drip 03/02/2017 Ears/Nose/Throat/Neck No sinus congestion 03/02/2017 Cardiovascular No chest pain/pressure Cardiovascular No dyspnea 03/02/2017 Cardiovascular No edema 03/02/2017 Cardiovascular No exercise intolerance Cardiovascular No fatigue 03/02/2017 Cardiovascular No near-syncope/dizziness 03/02/2017 Respiratory No chest tightness 2016 Respiratory No cough 03/02/2017 Respiratory No dyspnea 03/02/2017 Respiratory No pedal edema 03/02/2017 Gastrointestinal abdominal pain 2016 Gastrointestinal constipation 03/02/2017 Gastrointestinal No diarrhea 03/02/2017 Gastrointestinal No gastroesophageal reflux 03/02/2017 Gastrointestinal No nausea 03/02/2017 Gastrointestinal No vomiting 03/02/2017 Genitourinary/Nephrology No dysuria 03/02 Genitourinary/Nephrology No nocturia Genitourinary/Nephrology No urinary incontinence 03/02/2017 Musculoskeletal stiffness 03/02/2017 Musculoskeletal No swelling 03/02/2017 Musculoskeletal arthralgia(s) 03/02/2017 Musculoskeletal muscle weakness 2016 Musculoskeletal No myalgias 03/02/2017 Dermatologic No rash 03/02/2017 Dermatologic No sores 03/02/2017 Dermatologic No scar 03/02/2017 Neurologic dizziness 03/02/2017 Neurologic dyskinesia or tremor 2016 Neurologic gait abnormality 03/02/2017 Neurologic No headache 03/02/2017 Neurologic No neck pain 03/02/2017 Neurologic No syncope 03/02/2017 Psychiatric No anxiety 03/02/2017 Psychiatric No depression 03/02/2017 Neurologic weakness 03/02/2017 Constitutional No recent illness 2016 Constitutional No chills 08/30/2016 Constitutional fatigue 08/30/2016 Constitutional No fever 08/30/2016 Constitutional No insomnia 08/30/2016 Constitutional malaise 08/30/2016 Eyes No blindness 08/30/2016 Eyes No vision change 08/30/2016 Ears/Nose/Throat/Neck No dizziness 2016 Ears/Nose/Throat/Neck No dysphagia 2016 Ears/Nose/Throat/Neck No headache 2016 Ears/Nose/Throat/Neck No hearing loss Ears/Nose/Throat/Neck No nasal allergies 08/30/2016 Ears/Nose/Throat/Neck No sore throat Ears/Nose/Throat/Neck No postnasal drip 08/30/2016 Ears/Nose/Throat/Neck No sinus congestion 08/30/2016 Cardiovascular No chest pain/pressure Cardiovascular No dyspnea 08/30/2016 Cardiovascular No edema 08/30/2016 Cardiovascular No exercise intolerance Cardiovascular No fatigue 08/30/2016 Cardiovascular No near-syncope/dizziness 08/30/2016 Respiratory No chest tightness 2016 Respiratory No cough 08/30/2016 Respiratory No dyspnea 08/30/2016 Respiratory No pedal edema 08/30/2016 Gastrointestinal No abdominal pain 2016 Gastrointestinal No constipation 2016 Gastrointestinal No diarrhea 08/30/2016 Gastrointestinal No gastroesophageal reflux 08/30/2016 Gastrointestinal No nausea 08/30/2016 Gastrointestinal No vomiting 08/30/2016 Genitourinary/Nephrology No dysuria 08/30 Genitourinary/Nephrology No nocturia Genitourinary/Nephrology No urinary incontinence 08/30/2016 Musculoskeletal stiffness 08/30/2016 Musculoskeletal No swelling 08/30/2016 Musculoskeletal arthralgia(s) 08/30/2016 Musculoskeletal muscle weakness 2016 Musculoskeletal No myalgias 08/30/2016 Dermatologic No rash 08/30/2016 Dermatologic No sores 08/30/2016 Dermatologic No scar 08/30/2016 Neurologic No dizziness 08/30/2016 Neurologic dyskinesia or tremor 2016 Neurologic gait abnormality 08/30/2016 Neurologic No headache 08/30/2016 Neurologic No neck pain 08/30/2016 Neurologic No syncope 08/30/2016 Psychiatric No anxiety 08/30/2016 Psychiatric No depression 08/30/2016 Constitutional No recent illness 2016 Constitutional No fever 08/11/2016 Eyes No eye erythema 08/11/2016 Ears/Nose/Throat/Neck No nasal discharge 08/11/2016 Ears/Nose/Throat/Neck No nasal allergies 08/11/2016 Cardiovascular No chest pain/pressure 06/2016 Respiratory No cough 08/11/2016 Musculoskeletal back pain 08/11/2016 Dermatologic erythema 08/11/2016 Neurologic No alteration of consciousness 08/11/2016 Neurologic No mental status change 2016 Constitutional No recent illness 2015 Constitutional No chills 06/01/2016 Constitutional No diaphoresis 06/01/2016 Constitutional No fever 06/01/2016 Eyes No eye erythema 06/01/2016 Ears/Nose/Throat/Neck No nasal allergies 06/01/2016 Ears/Nose/Throat/Neck No nasal discharge 06/01/2016 Ears/Nose/Throat/Neck No postnasal drip 06/01/2016 Cardiovascular No chest pain/pressure Cardiovascular No dyspnea 06/01/2016 Respiratory No chest congestion 2015 Respiratory No cough 06/01/2016 Respiratory No dyspnea 06/01/2016 Gastrointestinal No abdominal pain 2015 Gastrointestinal constipation 06/01/2016 Gastrointestinal No diarrhea 06/01/2016 Gastrointestinal No nausea 06/01/2016 Gastrointestinal No vomiting 06/01/2016 Musculoskeletal No joint complaint 2015 Dermatologic No rash 06/01/2016 Neurologic No alteration of consciousness 06/01/2016 Neurologic No mental status change 2015 Constitutional recent illness 04/16/2016 Constitutional No anorexia 04/16/2016 Constitutional No night sweats 2015 Constitutional No chills 04/16/2016 Constitutional No diaphoresis 04/16/2016 Constitutional No fatigue 04/16/2016 Constitutional No fever 04/16/2016 Constitutional No insomnia 04/16/2016 Constitutional No malaise 04/16/2016 Constitutional No weight loss 04/16/2016 Constitutional No weight gain 04/16/2016 Eyes No eye erythema 04/16/2016 Eyes No eye discharge 04/16/2016 Ears/Nose/Throat/Neck No dental pain 09/2015 Ears/Nose/Throat/Neck No headache 2015 Respiratory No cough 04/16/2016 Gastrointestinal No abdominal pain 2015 Gastrointestinal constipation 04/16/2016 Gastrointestinal No diarrhea 04/16/2016 Genitourinary/Nephrology dysuria 2015 Dermatologic No rash 04/16/2016 Dermatologic No sores 04/16/2016 Constitutional No recent illness 2015 Constitutional No chills 02/10/2016 Constitutional fatigue 02/10/2016 Constitutional No fever 02/10/2016 Constitutional No insomnia 02/10/2016 Constitutional malaise 02/10/2016 Eyes No blindness 02/10/2016 Eyes No vision change 02/10/2016 Ears/Nose/Throat/Neck No dizziness 2015 Ears/Nose/Throat/Neck No dysphagia 2015 Ears/Nose/Throat/Neck No headache 2015 Ears/Nose/Throat/Neck No hearing loss Ears/Nose/Throat/Neck No nasal allergies 02/10/2016 Ears/Nose/Throat/Neck No sore throat Ears/Nose/Throat/Neck No postnasal drip 02/10/2016 Ears/Nose/Throat/Neck No sinus congestion 02/10/2016 Cardiovascular No chest pain/pressure Cardiovascular No dyspnea 02/10/2016 Cardiovascular No edema 02/10/2016 Cardiovascular No exercise intolerance Cardiovascular No fatigue 02/10/2016 Cardiovascular No near-syncope/dizziness 02/10/2016 Respiratory No chest tightness 2015 Respiratory No cough 02/10/2016 Respiratory No dyspnea 02/10/2016 Respiratory No pedal edema 02/10/2016 Gastrointestinal No abdominal pain 2015 Gastrointestinal No constipation 2015 Gastrointestinal No diarrhea 02/10/2016 Gastrointestinal No gastroesophageal reflux 02/10/2016 Gastrointestinal No nausea 02/10/2016 Gastrointestinal No vomiting 02/10/2016 Genitourinary/Nephrology No dysuria 02/09 Genitourinary/Nephrology No nocturia Genitourinary/Nephrology No urinary incontinence 02/10/2016 Musculoskeletal stiffness 02/10/2016 Musculoskeletal No swelling 02/10/2016 Musculoskeletal muscle weakness 2015 Musculoskeletal No myalgias 02/10/2016 Dermatologic No rash 02/10/2016 Dermatologic No sores 02/10/2016 Dermatologic No scar 02/10/2016 Neurologic No dizziness 02/10/2016 Neurologic No headache 02/10/2016 Neurologic No neck pain 02/10/2016 Neurologic No syncope 02/10/2016 Psychiatric No anxiety 02/10/2016 Psychiatric No depression 02/10/2016 Neurologic dyskinesia or tremor 2015 Neurologic gait abnormality 02/10/2016 Musculoskeletal arthralgia(s) 02/10/2016 Physical Exam Exam Name System Name Item Name Status Result Effective Dates Notes Full Exam - General 1994 Constitutional general appearance Development: well developed 04/04/2018 None Full Exam - General 1994 Constitutional general appearance Development: appears stated age 1004/04/2018 None Full Exam - General 1994 Constitutional general appearance Hygiene/Attention to Grooming: good hygiene 04/04/2018 None Full Exam - General 1994 Eyes conjunctiva /eyelids Overall: conjunctiva clear 04/04/2018 None Full Exam - General 1994 Eyes conjunctiva /eyelids Overall: cornea clear 04/04/2018 None Full Exam - General 1994 Eyes conjunctiva /eyelids Overall: eyelids normal 04/04/2018 None Full Exam - General 1994 Eyes pupils and irises Overall: pupils equal, round, reactive to light and accomodation 04/04/2018 None Full Exam - General 1994 Ears/Nose/Throat otoscopic exam Overall: external auditory canals clear 04/04/2018 None Full Exam - General 1994 Ears/Nose/Throat otoscopic exam Overall: tympanic membranes clear 04/04/2018 None Full Exam - General 1994 Ears/Nose/Throat lips/teeth/gingiva Overall: benign lips 04/04/2018 None Full Exam - General 1994 Ears/Nose/Throat lips/teeth/gingiva Overall: normal dentition 04/04/2018 None Full Exam - General 1994 Ears/Nose/Throat oral cavity/pharynx/larynx Overall: oral mucosa clear 04/04/2018 None Full Exam - General 1994 Ears/Nose/Throat oral cavity/pharynx/larynx Overall: oropharyngeal mucosa clear 04/04/2018 None Full Exam - General 1994 Ears/Nose/Throat oral cavity/pharynx/larynx Overall: hypopharynx benign 04/04/2018 None Full Exam - General 1994 Ears/Nose/Throat oral cavity/pharynx/larynx Overall: no masses 04/04/2018 None Full Exam - General 1994 Respiratory auscultation Overall: breath sounds clear bilaterally 04/04/2018 None Full Exam - General 1994 Respiratory respiratory effort/rhythm Overall: no retractions 04/04/2018 None Full Exam - General 1994 Respiratory respiratory effort/rhythm Overall: normal rate 04/04/2018 None Full Exam - General 1994 Cardiovascular extremities Overall: no clubbing 04/04/2018 None Full Exam - General 1994 Cardiovascular auscultation of heart Overall: regular rate 04/04/2018 None Full Exam - General 1994 Cardiovascular auscultation of heart Overall: normal heart sounds 04/04/2018 None Full Exam - General 1994 Abdomen abdominal exam Overall: normal bowel sounds 04/04/2018 None Full Exam - General 1994 Musculoskeletal spine, ribs and pelvis Overall: spine benign 04/04/2018 None Full Exam - General 1994 Musculoskeletal spine, ribs and pelvis Overall: sacroiliac joint benign 04/04/2018 None Full Exam - General 1994 Musculoskeletal spine, ribs and pelvis Overall: good posture 04/04/2018 None Full Exam - General 1994 Musculoskeletal head and neck Overall: head atraumatic 04/04/2018 None Full Exam - General 1994 Musculoskeletal head and neck Overall: cervical spine benign 04/04/2018 None Full Exam - General 1994 Psychiatric orientation/consciousness Overall: oriented to person, place and time 04/04/2018 None Full Exam - General 1994 Psychiatric mood and affect Overall: normal mood and affect 04/04/2018 None Full Exam - General 1994 Abdomen abdominal exam Upper quadrant: tender to palpation 04/04/2018 None Full Exam - General 1994 Constitutional general appearance Overall: well developed 02/16/2018 None Full Exam - General 1994 Constitutional general appearance Overall: in no acute distress 02/16/2018 None Full Exam - General 1994 Constitutional general appearance Overall: well nourished 02/16/2018 None Full Exam - General 1994 Eyes conjunctiva /eyelids Overall: conjunctiva clear 02/16/2018 None Full Exam - General 1994 Eyes conjunctiva /eyelids Overall: eyelids normal 02/16/2018 None Full Exam - General 1994 Ears/Nose/Throat lips/teeth/gingiva Overall: benign lips 02/16/2018 None Full Exam - General 1994 Respiratory respiratory effort/rhythm Overall: no retractions 02/16/2018 None Full Exam - General 1994 Respiratory respiratory effort/rhythm Overall: normal rate 02/16/2018 None Full Exam - General 1994 Cardiovascular auscultation of heart Overall: regular rate 02/16/2018 None Full Exam - General 1994 Cardiovascular auscultation of heart Overall: normal heart sounds 02/16/2018 None Full Exam - General 1994 Cardiovascular auscultation of heart Overall: no murmurs 02/16/2018 None Full Exam - General 1994 Abdomen abdominal exam Overall: no tenderness 02/16/2018 None Full Exam - General 1994 Abdomen abdominal exam Overall: normal bowel sounds 02/16/2018 None Full Exam - General 1994 Musculoskeletal head and neck Overall: head atraumatic 02/16/2018 None Full Exam - General 1994 Neurologic cranial nerves Overall: crainial nerves 2 - 12 grossly intact 02/16/2018 None Full Exam - General 1994 Psychiatric orientation/consciousness Overall: oriented to person, place and time 02/16/2018 None Full Exam - General 1994 Psychiatric mood and affect Overall: normal mood and affect 02/16/2018 None Full Exam - General 1994 Psychiatric appearance Overall: well-groomed, good eye contact 02/16/2018 None Full Exam - General 1994 Constitutional general appearance Overall: well developed 12/30/2017 None Full Exam - General 1994 Constitutional general appearance Overall: in no acute distress 12/30/2017 None Full Exam - General 1994 Constitutional general appearance Overall: well nourished 12/30/2017 None Full Exam - General 1994 Eyes conjunctiva /eyelids Overall: conjunctiva clear 12/30/2017 None Full Exam - General 1994 Eyes conjunctiva /eyelids Overall: eyelids normal 12/30/2017 None Full Exam - General 1994 Ears/Nose/Throat lips/teeth/gingiva Overall: benign lips 12/30/2017 None Full Exam - General 1994 Respiratory respiratory effort/rhythm Overall: no retractions 12/30/2017 None Full Exam - General 1994 Respiratory respiratory effort/rhythm Overall: normal rate 12/30/2017 None Full Exam - General 1994 Cardiovascular auscultation of heart Overall: regular rate 12/30/2017 None Full Exam - General 1994 Cardiovascular auscultation of heart Overall: normal heart sounds 12/30/2017 None Full Exam - General 1994 Cardiovascular auscultation of heart Overall: no murmurs 12/30/2017 None Full Exam - General 1994 Abdomen abdominal exam Overall: no tenderness 12/30/2017 None Full Exam - General 1994 Abdomen abdominal exam Overall: normal bowel sounds 12/30/2017 None Full Exam - General 1994 Musculoskeletal head and neck Overall: head atraumatic 12/30/2017 None Full Exam - General 1994 Neurologic cranial nerves Overall: crainial nerves 2 - 12 grossly intact 12/30/2017 None Full Exam - General 1994 Psychiatric orientation/consciousness Overall: oriented to person, place and time 12/30/2017 None Full Exam - General 1994 Psychiatric mood and affect Overall: normal mood and affect 12/30/2017 None Full Exam - General 1994 Psychiatric appearance Overall: well-groomed, good eye contact 12/30/2017 None Full Exam - General 1994 Constitutional general appearance Overall: well developed 10/13/2017 None Full Exam - General 1994 Constitutional general appearance Overall: in no acute distress 10/13/2017 None Full Exam - General 1994 Constitutional general appearance Overall: well nourished 10/13/2017 None Full Exam - General 1994 Eyes conjunctiva /eyelids Overall: conjunctiva clear 10/13/2017 None Full Exam - General 1994 Eyes conjunctiva /eyelids Overall: eyelids normal 10/13/2017 None Full Exam - General 1994 Ears/Nose/Throat lips/teeth/gingiva Overall: benign lips 10/13/2017 None Full Exam - General 1994 Respiratory respiratory effort/rhythm Overall: no retractions 10/13/2017 None Full Exam - General 1994 Respiratory respiratory effort/rhythm Overall: normal rate 10/13/2017 None Full Exam - General 1994 Musculoskeletal head and neck Overall: head atraumatic 10/13/2017 None Full Exam - General 1994 Neurologic cranial nerves Overall: crainial nerves 2 - 12 grossly intact 10/13/2017 None Full Exam - General 1994 Psychiatric orientation/consciousness Overall: oriented to person, place and time 10/13/2017 None Full Exam - General 1994 Psychiatric mood and affect Overall: normal mood and affect 10/13/2017 None Full Exam - General 1994 Psychiatric appearance Overall: well-groomed, good eye contact 10/13/2017 None Full Exam - General 1994 Cardiovascular auscultation of heart Overall: regular rate 10/13/2017 None Full Exam - General 1994 Cardiovascular auscultation of heart Overall: normal heart sounds 10/13/2017 None Full Exam - General 1994 Cardiovascular auscultation of heart Overall: no murmurs 10/13/2017 None Full Exam - General 1994 Abdomen abdominal exam Overall: no tenderness 10/13/2017 None Full Exam - General 1994 Abdomen abdominal exam Overall: normal bowel sounds 10/13/2017 None Full Exam - General 1994 Constitutional general appearance Development: well developed 07/12/2017 None Full Exam - General 1994 Constitutional general appearance Development: appears stated age 0107/12/2017 None Full Exam - General 1994 Constitutional general appearance Hygiene/Attention to Grooming: good hygiene 07/12/2017 None Full Exam - General 1994 Eyes conjunctiva /eyelids Overall: conjunctiva clear 07/12/2017 None Full Exam - General 1994 Eyes conjunctiva /eyelids Overall: cornea clear 07/12/2017 None Full Exam - General 1994 Eyes conjunctiva /eyelids Overall: eyelids normal 07/12/2017 None Full Exam - General 1994 Eyes pupils and irises Overall: pupils equal, round, reactive to light and accomodation 07/12/2017 None Full Exam - General 1994 Ears/Nose/Throat otoscopic exam Overall: external auditory canals clear 07/12/2017 None Full Exam - General 1994 Ears/Nose/Throat otoscopic exam Overall: tympanic membranes clear 07/12/2017 None Full Exam - General 1994 Ears/Nose/Throat lips/teeth/gingiva Overall: benign lips 07/12/2017 None Full Exam - General 1994 Ears/Nose/Throat lips/teeth/gingiva Overall: normal dentition 07/12/2017 None Full Exam - General 1994 Ears/Nose/Throat oral cavity/pharynx/larynx Overall: oral mucosa clear 07/12/2017 None Full Exam - General 1994 Ears/Nose/Throat oral cavity/pharynx/larynx Overall: oropharyngeal mucosa clear 07/12/2017 None Full Exam - General 1994 Ears/Nose/Throat oral cavity/pharynx/larynx Overall: hypopharynx benign 07/12/2017 None Full Exam - General 1994 Ears/Nose/Throat oral cavity/pharynx/larynx Overall: no masses 07/12/2017 None Full Exam - General 1994 Respiratory auscultation Overall: breath sounds clear bilaterally 07/12/2017 None Full Exam - General 1994 Respiratory respiratory effort/rhythm Overall: no retractions 07/12/2017 None Full Exam - General 1994 Respiratory respiratory effort/rhythm Overall: normal rate 07/12/2017 None Full Exam - General 1994 Cardiovascular extremities Overall: no clubbing 07/12/2017 None Full Exam - General 1994 Cardiovascular auscultation of heart Overall: regular rate 07/12/2017 None Full Exam - General 1994 Cardiovascular auscultation of heart Overall: normal heart sounds 07/12/2017 None Full Exam - General 1994 Abdomen abdominal exam Overall: no tenderness 07/12/2017 None Full Exam - General 1994 Abdomen abdominal exam Overall: normal bowel sounds 07/12/2017 None Full Exam - General 1994 Musculoskeletal spine, ribs and pelvis Overall: spine benign 07/12/2017 None Full Exam - General 1994 Musculoskeletal spine, ribs and pelvis Overall: sacroiliac joint benign 07/12/2017 None Full Exam - General 1994 Musculoskeletal spine, ribs and pelvis Overall: good posture 07/12/2017 None Full Exam - General 1994 Musculoskeletal head and neck Overall: head atraumatic 07/12/2017 None Full Exam - General 1994 Musculoskeletal head and neck Overall: cervical spine benign 07/12/2017 None Full Exam - General 1994 Psychiatric orientation/consciousness Overall: oriented to person, place and time 07/12/2017 None Full Exam - General 1994 Psychiatric mood and affect Overall: normal mood and affect 07/12/2017 None Full Exam - General 1994 Constitutional general appearance Overall: well developed 06/07/2017 None Full Exam - General 1994 Constitutional general appearance Overall: in no acute distress 06/07/2017 None Full Exam - General 1994 Constitutional general appearance Overall: well nourished 06/07/2017 None Full Exam - General 1994 Eyes conjunctiva /eyelids Overall: conjunctiva clear 06/07/2017 None Full Exam - General 1994 Eyes conjunctiva /eyelids Overall: eyelids normal 06/07/2017 None Full Exam - General 1994 Ears/Nose/Throat lips/teeth/gingiva Overall: benign lips 06/07/2017 None Full Exam - General 1994 Respiratory respiratory effort/rhythm Overall: no retractions 06/07/2017 None Full Exam - General 1994 Respiratory respiratory effort/rhythm Overall: normal rate 06/07/2017 None Full Exam - General 1994 Musculoskeletal head and neck Overall: head atraumatic 06/07/2017 None Full Exam - General 1994 Neurologic cranial nerves Overall: crainial nerves 2 - 12 grossly intact 06/07/2017 None Full Exam - General 1994 Psychiatric orientation/consciousness Overall: oriented to person, place and time 06/07/2017 None Full Exam - General 1994 Psychiatric mood and affect Overall: normal mood and affect 06/07/2017 None Full Exam - General 1994 Psychiatric appearance Overall: well-groomed, good eye contact 06/07/2017 None Full Exam - General 1994 Constitutional general appearance Development: well developed 05/24/2017 None Full Exam - General 1994 Constitutional general appearance Development: appears stated age 1205/24/2017 None Full Exam - General 1994 Constitutional general appearance Hygiene/Attention to Grooming: good hygiene 05/24/2017 None Full Exam - General 1994 Eyes conjunctiva /eyelids Overall: conjunctiva clear 05/24/2017 None Full Exam - General 1994 Eyes conjunctiva /eyelids Overall: cornea clear 05/24/2017 None Full Exam - General 1994 Eyes conjunctiva /eyelids Overall: eyelids normal 05/24/2017 None Full Exam - General 1994 Eyes pupils and irises Overall: pupils equal, round, reactive to light and accomodation 05/24/2017 None Full Exam - General 1994 Ears/Nose/Throat otoscopic exam Overall: external auditory canals clear 05/24/2017 None Full Exam - General 1994 Ears/Nose/Throat otoscopic exam Overall: tympanic membranes clear 05/24/2017 None Full Exam - General 1994 Ears/Nose/Throat lips/teeth/gingiva Overall: benign lips 05/24/2017 None Full Exam - General 1994 Ears/Nose/Throat lips/teeth/gingiva Overall: normal dentition 05/24/2017 None Full Exam - General 1994 Ears/Nose/Throat oral cavity/pharynx/larynx Overall: oral mucosa clear 05/24/2017 None Full Exam - General 1994 Ears/Nose/Throat oral cavity/pharynx/larynx Overall: oropharyngeal mucosa clear 05/24/2017 None Full Exam - General 1994 Ears/Nose/Throat oral cavity/pharynx/larynx Overall: hypopharynx benign 05/24/2017 None Full Exam - General 1994 Ears/Nose/Throat oral cavity/pharynx/larynx Overall: no masses 05/24/2017 None Full Exam - General 1994 Respiratory auscultation Overall: breath sounds clear bilaterally 05/24/2017 None Full Exam - General 1994 Respiratory respiratory effort/rhythm Overall: no retractions 05/24/2017 None Full Exam - General 1994 Respiratory respiratory effort/rhythm Overall: normal rate 05/24/2017 None Full Exam - General 1994 Cardiovascular extremities Overall: no clubbing 05/24/2017 None Full Exam - General 1994 Cardiovascular auscultation of heart Overall: regular rate 05/24/2017 None Full Exam - General 1994 Cardiovascular auscultation of heart Overall: normal heart sounds 05/24/2017 None Full Exam - General 1994 Abdomen abdominal exam Overall: no tenderness 05/24/2017 None Full Exam - General 1994 Abdomen abdominal exam Overall: normal bowel sounds 05/24/2017 None Full Exam - General 1994 Musculoskeletal spine, ribs and pelvis Overall: spine benign 05/24/2017 None Full Exam - General 1994 Musculoskeletal spine, ribs and pelvis Overall: sacroiliac joint benign 05/24/2017 None Full Exam - General 1994 Musculoskeletal spine, ribs and pelvis Overall: good posture 05/24/2017 None Full Exam - General 1994 Musculoskeletal head and neck Overall: head atraumatic 05/24/2017 None Full Exam - General 1994 Musculoskeletal head and neck Overall: cervical spine benign 05/24/2017 None Full Exam - General 1994 Psychiatric orientation/consciousness Overall: oriented to person, place and time 05/24/2017 None Full Exam - General 1994 Psychiatric mood and affect Overall: normal mood and affect 05/24/2017 None Full Exam - General 1994 Constitutional general appearance Development: well developed 04/27/2017 None Full Exam - General 1994 Constitutional general appearance Development: appears stated age 1104/27/2017 None Full Exam - General 1994 Constitutional general appearance Hygiene/Attention to Grooming: good hygiene 04/27/2017 None Full Exam - General 1994 Eyes conjunctiva /eyelids Overall: conjunctiva clear 04/27/2017 None Full Exam - General 1994 Eyes conjunctiva /eyelids Overall: cornea clear 04/27/2017 None Full Exam - General 1994 Eyes conjunctiva /eyelids Overall: eyelids normal 04/27/2017 None Full Exam - General 1994 Eyes pupils and irises Overall: pupils equal, round, reactive to light and accomodation 04/27/2017 None Full Exam - General 1994 Ears/Nose/Throat otoscopic exam Overall: external auditory canals clear 04/27/2017 None Full Exam - General 1994 Ears/Nose/Throat otoscopic exam Overall: tympanic membranes clear 04/27/2017 None Full Exam - General 1994 Ears/Nose/Throat lips/teeth/gingiva Overall: benign lips 04/27/2017 None Full Exam - General 1994 Ears/Nose/Throat lips/teeth/gingiva Overall: normal dentition 04/27/2017 None Full Exam - General 1994 Ears/Nose/Throat oral cavity/pharynx/larynx Overall: oral mucosa clear 04/27/2017 None Full Exam - General 1994 Ears/Nose/Throat oral cavity/pharynx/larynx Overall: oropharyngeal mucosa clear 04/27/2017 None Full Exam - General 1994 Ears/Nose/Throat oral cavity/pharynx/larynx Overall: hypopharynx benign 04/27/2017 None Full Exam - General 1994 Ears/Nose/Throat oral cavity/pharynx/larynx Overall: no masses 04/27/2017 None Full Exam - General 1994 Respiratory auscultation Overall: breath sounds clear bilaterally 04/27/2017 None Full Exam - General 1994 Respiratory respiratory effort/rhythm Overall: no retractions 04/27/2017 None Full Exam - General 1994 Respiratory respiratory effort/rhythm Overall: normal rate 04/27/2017 None Full Exam - General 1994 Cardiovascular extremities Overall: no clubbing 04/27/2017 None Full Exam - General 1994 Cardiovascular auscultation of heart Overall: regular rate 04/27/2017 None Full Exam - General 1994 Cardiovascular auscultation of heart Overall: normal heart sounds 04/27/2017 None Full Exam - General 1994 Abdomen abdominal exam Overall: no tenderness 04/27/2017 None Full Exam - General 1994 Abdomen abdominal exam Overall: normal bowel sounds 04/27/2017 None Full Exam - General 1994 Musculoskeletal spine, ribs and pelvis Overall: spine benign 04/27/2017 None Full Exam - General 1994 Musculoskeletal spine, ribs and pelvis Overall: sacroiliac joint benign 04/27/2017 None Full Exam - General 1994 Musculoskeletal spine, ribs and pelvis Overall: good posture 04/27/2017 None Full Exam - General 1994 Musculoskeletal head and neck Overall: head atraumatic 04/27/2017 None Full Exam - General 1994 Musculoskeletal head and neck Overall: cervical spine benign 04/27/2017 None Full Exam - General 1994 Psychiatric orientation/consciousness Overall: oriented to person, place and time 04/27/2017 None Full Exam - General 1994 Psychiatric mood and affect Overall: normal mood and affect 04/27/2017 None Full Exam - General 1994 Constitutional general appearance Development: well developed 04/13/2017 None Full Exam - General 1994 Constitutional general appearance Development: appears stated age 1104/13/2017 None Full Exam - General 1994 Constitutional general appearance Hygiene/Attention to Grooming: good hygiene 04/13/2017 None Full Exam - General 1994 Eyes conjunctiva /eyelids Overall: conjunctiva clear 04/13/2017 None Full Exam - General 1994 Eyes conjunctiva /eyelids Overall: cornea clear 04/13/2017 None Full Exam - General 1994 Eyes conjunctiva /eyelids Overall: eyelids normal 04/13/2017 None Full Exam - General 1994 Eyes pupils and irises Overall: pupils equal, round, reactive to light and accomodation 04/13/2017 None Full Exam - General 1994 Ears/Nose/Throat otoscopic exam Overall: external auditory canals clear 04/13/2017 None Full Exam - General 1994 Ears/Nose/Throat otoscopic exam Overall: tympanic membranes clear 04/13/2017 None Full Exam - General 1994 Ears/Nose/Throat lips/teeth/gingiva Overall: benign lips 04/13/2017 None Full Exam - General 1994 Ears/Nose/Throat lips/teeth/gingiva Overall: normal dentition 04/13/2017 None Full Exam - General 1994 Ears/Nose/Throat oral cavity/pharynx/larynx Overall: oral mucosa clear 04/13/2017 None Full Exam - General 1994 Ears/Nose/Throat oral cavity/pharynx/larynx Overall: oropharyngeal mucosa clear 04/13/2017 None Full Exam - General 1994 Ears/Nose/Throat oral cavity/pharynx/larynx Overall: hypopharynx benign 04/13/2017 None Full Exam - General 1994 Ears/Nose/Throat oral cavity/pharynx/larynx Overall: no masses 04/13/2017 None Full Exam - General 1994 Respiratory auscultation Overall: breath sounds clear bilaterally 04/13/2017 None Full Exam - General 1994 Respiratory respiratory effort/rhythm Overall: no retractions 04/13/2017 None Full Exam - General 1994 Respiratory respiratory effort/rhythm Overall: normal rate 04/13/2017 None Full Exam - General 1994 Cardiovascular extremities Overall: no clubbing 04/13/2017 None Full Exam - General 1994 Cardiovascular auscultation of heart Overall: regular rate 04/13/2017 None Full Exam - General 1994 Cardiovascular auscultation of heart Overall: normal heart sounds 04/13/2017 None Full Exam - General 1994 Abdomen abdominal exam Overall: no tenderness 04/13/2017 None Full Exam - General 1994 Abdomen abdominal exam Overall: normal bowel sounds 04/13/2017 None Full Exam - General 1994 Musculoskeletal spine, ribs and pelvis Overall: spine benign 04/13/2017 None Full Exam - General 1994 Musculoskeletal spine, ribs and pelvis Overall: sacroiliac joint benign 04/13/2017 None Full Exam - General 1994 Musculoskeletal spine, ribs and pelvis Overall: good posture 04/13/2017 None Full Exam - General 1994 Musculoskeletal head and neck Overall: head atraumatic 04/13/2017 None Full Exam - General 1994 Musculoskeletal head and neck Overall: cervical spine benign 04/13/2017 None Full Exam - General 1994 Psychiatric orientation/consciousness Overall: oriented to person, place and time 04/13/2017 None Full Exam - General 1994 Psychiatric mood and affect Overall: normal mood and affect 04/13/2017 None Full Exam - General 1994 Constitutional general appearance Development: well developed 03/30/2017 None Full Exam - General 1994 Constitutional general appearance Development: appears stated age 1003/30/2017 None Full Exam - General 1994 Constitutional general appearance Hygiene/Attention to Grooming: good hygiene 03/30/2017 None Full Exam - General 1994 Eyes conjunctiva /eyelids Overall: conjunctiva clear 03/30/2017 None Full Exam - General 1994 Eyes conjunctiva /eyelids Overall: cornea clear 03/30/2017 None Full Exam - General 1994 Eyes conjunctiva /eyelids Overall: eyelids normal 03/30/2017 None Full Exam - General 1994 Eyes pupils and irises Overall: pupils equal, round, reactive to light and accomodation 03/30/2017 None Full Exam - General 1994 Ears/Nose/Throat otoscopic exam Overall: external auditory canals clear 03/30/2017 None Full Exam - General 1994 Ears/Nose/Throat otoscopic exam Overall: tympanic membranes clear 03/30/2017 None Full Exam - General 1994 Ears/Nose/Throat lips/teeth/gingiva Overall: benign lips 03/30/2017 None Full Exam - General 1994 Ears/Nose/Throat lips/teeth/gingiva Overall: normal dentition 03/30/2017 None Full Exam - General 1994 Ears/Nose/Throat oral cavity/pharynx/larynx Overall: oral mucosa clear 03/30/2017 None Full Exam - General 1994 Ears/Nose/Throat oral cavity/pharynx/larynx Overall: oropharyngeal mucosa clear 03/30/2017 None Full Exam - General 1994 Ears/Nose/Throat oral cavity/pharynx/larynx Overall: hypopharynx benign 03/30/2017 None Full Exam - General 1994 Ears/Nose/Throat oral cavity/pharynx/larynx Overall: no masses 03/30/2017 None Full Exam - General 1994 Respiratory auscultation Overall: breath sounds clear bilaterally 03/30/2017 None Full Exam - General 1994 Respiratory respiratory effort/rhythm Overall: no retractions 03/30/2017 None Full Exam - General 1994 Respiratory respiratory effort/rhythm Overall: normal rate 03/30/2017 None Full Exam - General 1994 Cardiovascular extremities Overall: no clubbing 03/30/2017 None Full Exam - General 1994 Cardiovascular auscultation of heart Overall: regular rate 03/30/2017 None Full Exam - General 1994 Cardiovascular auscultation of heart Overall: normal heart sounds 03/30/2017 None Full Exam - General 1994 Abdomen abdominal exam Overall: no tenderness 03/30/2017 None Full Exam - General 1994 Abdomen abdominal exam Overall: normal bowel sounds 03/30/2017 None Full Exam - General 1994 Musculoskeletal spine, ribs and pelvis Overall: spine benign 03/30/2017 None Full Exam - General 1994 Musculoskeletal spine, ribs and pelvis Overall: sacroiliac joint benign 03/30/2017 None Full Exam - General 1994 Musculoskeletal spine, ribs and pelvis Overall: good posture 03/30/2017 None Full Exam - General 1994 Musculoskeletal head and neck Overall: head atraumatic 03/30/2017 None Full Exam - General 1994 Musculoskeletal head and neck Overall: cervical spine benign 03/30/2017 None Full Exam - General 1994 Psychiatric orientation/consciousness Overall: oriented to person, place and time 03/30/2017 None Full Exam - General 1994 Psychiatric mood and affect Overall: normal mood and affect 03/30/2017 None Full Exam - General 1994 Constitutional general appearance Development: well developed 03/02/2017 None Full Exam - General 1994 Constitutional general appearance Development: appears stated age 0903/02/2017 None Full Exam - General 1994 Constitutional general appearance Hygiene/Attention to Grooming: good hygiene 03/02/2017 None Full Exam - General 1994 Eyes conjunctiva /eyelids Overall: conjunctiva clear 03/02/2017 None Full Exam - General 1994 Eyes conjunctiva /eyelids Overall: cornea clear 03/02/2017 None Full Exam - General 1994 Eyes conjunctiva /eyelids Overall: eyelids normal 03/02/2017 None Full Exam - General 1994 Eyes pupils and irises Overall: pupils equal, round, reactive to light and accomodation 03/02/2017 None Full Exam - General 1994 Ears/Nose/Throat otoscopic exam Overall: external auditory canals clear 03/02/2017 None Full Exam - General 1994 Ears/Nose/Throat otoscopic exam Overall: tympanic membranes clear 03/02/2017 None Full Exam - General 1994 Ears/Nose/Throat lips/teeth/gingiva Overall: benign lips 03/02/2017 None Full Exam - General 1994 Ears/Nose/Throat lips/teeth/gingiva Overall: normal dentition 03/02/2017 None Full Exam - General 1994 Ears/Nose/Throat oral cavity/pharynx/larynx Overall: oral mucosa clear 03/02/2017 None Full Exam - General 1994 Ears/Nose/Throat oral cavity/pharynx/larynx Overall: oropharyngeal mucosa clear 03/02/2017 None Full Exam - General 1994 Ears/Nose/Throat oral cavity/pharynx/larynx Overall: hypopharynx benign 03/02/2017 None Full Exam - General 1994 Ears/Nose/Throat oral cavity/pharynx/larynx Overall: no masses 03/02/2017 None Full Exam - General 1994 Respiratory auscultation Overall: breath sounds clear bilaterally 03/02/2017 None Full Exam - General 1994 Respiratory respiratory effort/rhythm Overall: no retractions 03/02/2017 None Full Exam - General 1994 Respiratory respiratory effort/rhythm Overall: normal rate 03/02/2017 None Full Exam - General 1994 Cardiovascular extremities Overall: no clubbing 03/02/2017 None Full Exam - General 1994 Cardiovascular auscultation of heart Overall: regular rate 03/02/2017 None Full Exam - General 1994 Cardiovascular auscultation of heart Overall: normal heart sounds 03/02/2017 None Full Exam - General 1994 Abdomen abdominal exam Overall: no tenderness 03/02/2017 None Full Exam - General 1994 Abdomen abdominal exam Overall: normal bowel sounds 03/02/2017 None Full Exam - General 1994 Lymphatic neck nodes Overall: anterior cervical chain benign 03/02/2017 None Full Exam - General 1994 Lymphatic neck nodes Overall: posterior cervical chain benign 03/02/2017 None Full Exam - General 1994 Musculoskeletal spine, ribs and pelvis Overall: spine benign 03/02/2017 None Full Exam - General 1994 Musculoskeletal spine, ribs and pelvis Overall: sacroiliac joint benign 03/02/2017 None Full Exam - General 1994 Musculoskeletal spine, ribs and pelvis Overall: good posture 03/02/2017 None Full Exam - General 1994 Musculoskeletal head and neck Overall: head atraumatic 03/02/2017 None Full Exam - General 1994 Musculoskeletal head and neck Overall: cervical spine benign 03/02/2017 None Full Exam - General 1994 Integument inspection of skin Overall: few scattered moles, no gross abnormalities 03/02/2017 None Full Exam - General 1994 Neurologic deep tendon reflexes Overall: deep tendon reflexes intact 03/02/2017 None Full Exam - General 1994 Neurologic cranial nerves Overall: crainial nerves 2 - 12 grossly intact 03/02/2017 None Full Exam - General 1994 Psychiatric orientation/consciousness Overall: oriented to person, place and time 03/02/2017 None Full Exam - General 1994 Psychiatric mood and affect Overall: normal mood and affect 03/02/2017 None Full Exam - General 1994 Constitutional general appearance Development: well developed 08/30/2016 None Full Exam - General 1994 Constitutional general appearance Development: appears stated age 0308/30/2016 None Full Exam - General 1994 Constitutional general appearance Hygiene/Attention to Grooming: good hygiene 08/30/2016 None Full Exam - General 1994 Eyes conjunctiva /eyelids Overall: conjunctiva clear 08/30/2016 None Full Exam - General 1994 Eyes conjunctiva /eyelids Overall: cornea clear 08/30/2016 None Full Exam - General 1994 Eyes conjunctiva /eyelids Overall: eyelids normal 08/30/2016 None Full Exam - General 1994 Eyes pupils and irises Overall: pupils equal, round, reactive to light and accomodation 08/30/2016 None Full Exam - General 1994 Ears/Nose/Throat otoscopic exam Overall: external auditory canals clear 08/30/2016 None Full Exam - General 1994 Ears/Nose/Throat otoscopic exam Overall: tympanic membranes clear 08/30/2016 None Full Exam - General 1994 Ears/Nose/Throat lips/teeth/gingiva Overall: benign lips 08/30/2016 None Full Exam - General 1994 Ears/Nose/Throat lips/teeth/gingiva Overall: normal dentition 08/30/2016 None Full Exam - General 1994 Ears/Nose/Throat oral cavity/pharynx/larynx Overall: oral mucosa clear 08/30/2016 None Full Exam - General 1994 Ears/Nose/Throat oral cavity/pharynx/larynx Overall: oropharyngeal mucosa clear 08/30/2016 None Full Exam - General 1994 Ears/Nose/Throat oral cavity/pharynx/larynx Overall: hypopharynx benign 08/30/2016 None Full Exam - General 1994 Ears/Nose/Throat oral cavity/pharynx/larynx Overall: no masses 08/30/2016 None Full Exam - General 1994 Respiratory auscultation Overall: breath sounds clear bilaterally 08/30/2016 None Full Exam - General 1994 Respiratory respiratory effort/rhythm Overall: no retractions 08/30/2016 None Full Exam - General 1994 Respiratory respiratory effort/rhythm Overall: normal rate 08/30/2016 None Full Exam - General 1994 Cardiovascular extremities Overall: no clubbing 08/30/2016 None Full Exam - General 1994 Cardiovascular auscultation of heart Overall: regular rate 08/30/2016 None Full Exam - General 1994 Cardiovascular auscultation of heart Overall: normal heart sounds 08/30/2016 None Full Exam - General 1994 Abdomen abdominal exam Overall: no tenderness 08/30/2016 None Full Exam - General 1994 Abdomen abdominal exam Overall: normal bowel sounds 08/30/2016 None Full Exam - General 1994 Lymphatic neck nodes Overall: anterior cervical chain benign 08/30/2016 None Full Exam - General 1994 Lymphatic neck nodes Overall: posterior cervical chain benign 08/30/2016 None Full Exam - General 1994 Musculoskeletal spine, ribs and pelvis Overall: spine benign 08/30/2016 None Full Exam - General 1994 Musculoskeletal spine, ribs and pelvis Overall: sacroiliac joint benign 08/30/2016 None Full Exam - General 1994 Musculoskeletal spine, ribs and pelvis Overall: good posture 08/30/2016 None Full Exam - General 1994 Musculoskeletal head and neck Overall: head atraumatic 08/30/2016 None Full Exam - General 1994 Musculoskeletal head and neck Overall: cervical spine benign 08/30/2016 None Full Exam - General 1994 Integument inspection of skin Overall: few scattered moles, no gross abnormalities 08/30/2016 None Full Exam - General 1994 Neurologic deep tendon reflexes Overall: deep tendon reflexes intact 08/30/2016 None Full Exam - General 1994 Neurologic cranial nerves Overall: crainial nerves 2 - 12 grossly intact 08/30/2016 None Full Exam - General 1994 Psychiatric orientation/consciousness Overall: oriented to person, place and time 08/30/2016 None Full Exam - General 1994 Psychiatric mood and affect Overall: normal mood and affect 08/30/2016 None Full Exam - General 1994 Constitutional general appearance Hygiene/Attention to Grooming: good hygiene 08/11/2016 None Full Exam - General 1994 Eyes conjunctiva /eyelids Overall: conjunctiva clear 08/11/2016 None Full Exam - General 1994 Eyes conjunctiva /eyelids Overall: eyelids normal 08/11/2016 None Full Exam - General 1994 Ears/Nose/Throat lips/teeth/gingiva Overall: benign lips 08/11/2016 None Full Exam - General 1995 Ears/Nose/Throat oral cavity/pharynx/larynx Overall: oral mucosa clear 08/11/2016 None Full Exam - General 1994 Respiratory respiratory effort/rhythm Overall: no retractions 08/11/2016 None Full Exam - General 1994 Respiratory respiratory effort/rhythm Overall: normal rate 08/11/2016 None Full Exam - General 1994 Musculoskeletal head and neck Overall: head atraumatic 08/11/2016 None Full Exam - General 1994 Neurologic cranial nerves Overall: crainial nerves 2 - 12 grossly intact 08/11/2016 None Full Exam - General 1994 Psychiatric orientation/consciousness Overall: oriented to person, place and time 08/11/2016 None Full Exam - General 1994 Psychiatric mood and affect Overall: normal mood and affect 08/11/2016 None Full Exam - General 1994 Constitutional general appearance Overall: in no acute distress 08/11/2016 None Full Exam - General 1994 Constitutional general appearance Nourishment: thin 08/11/2016 None Full Exam - General 1994 Musculoskeletal spine, ribs and pelvis Spine: tender @ lumbar spine 08/11/2016 Tender over the sacrum Full Exam - General 1994 Integument inspection of skin Location: buttocks 08/11/2016 None Full Exam - General 1994 Integument inspection of skin Dermatitis: erythema 08/11/2016 Pressure area Full Exam - General 1994 Constitutional general appearance Overall: well developed 06/01/2016 None Full Exam - General 1994 Constitutional general appearance Overall: in no acute distress 06/01/2016 None Full Exam - General 1994 Constitutional general appearance Overall: well nourished 06/01/2016 None Full Exam - General 1994 Eyes conjunctiva /eyelids Overall: conjunctiva clear 06/01/2016 None Full Exam - General 1994 Eyes conjunctiva /eyelids Overall: eyelids normal 06/01/2016 None Full Exam - General 1994 Eyes pupils and irises Overall: pupils equal, round, reactive to light and accomodation 06/01/2016 None Full Exam - General 1994 Ears/Nose/Throat otoscopic exam Overall: external auditory canals clear 06/01/2016 None Full Exam - General 1994 Ears/Nose/Throat otoscopic exam Overall: tympanic membranes clear 06/01/2016 None Full Exam - General 1994 Ears/Nose/Throat lips/teeth/gingiva Overall: benign lips 06/01/2016 None Full Exam - General 1994 Ears/Nose/Throat oral cavity/pharynx/larynx Overall: oral mucosa clear 06/01/2016 None Full Exam - General 1994 Respiratory auscultation Overall: breath sounds clear bilaterally 06/01/2016 None Full Exam - General 1994 Respiratory respiratory effort/rhythm Overall: no retractions 06/01/2016 None Full Exam - General 1994 Respiratory respiratory effort/rhythm Overall: normal rate 06/01/2016 None Full Exam - General 1994 Cardiovascular extremities Overall: no clubbing 06/01/2016 None Full Exam - General 1994 Cardiovascular auscultation of heart Overall: regular rate 06/01/2016 None Full Exam - General 1994 Cardiovascular auscultation of heart Overall: normal heart sounds 06/01/2016 None Full Exam - General 1994 Abdomen abdominal exam Overall: normal bowel sounds 06/01/2016 None Full Exam - General 1994 Musculoskeletal head and neck Overall: head atraumatic 06/01/2016 None Full Exam - General 1994 Integument inspection of skin Overall: few scattered moles, no gross abnormalities 06/01/2016 None Full Exam - General 1994 Psychiatric orientation/consciousness Overall: oriented to person, place and time 06/01/2016 None Full Exam - General 1994 Psychiatric mood and affect Overall: normal mood and affect 06/01/2016 None Full Exam - General 1994 Psychiatric appearance Overall: well-groomed, good eye contact 06/01/2016 None Full Exam - General 1994 Ears/Nose/Throat oral cavity/pharynx/larynx Overall: oropharyngeal mucosa clear 06/01/2016 None Full Exam - General 1994 Constitutional general appearance Development: well developed 04/16/2016 None Full Exam - General 1994 Constitutional general appearance Development: appears stated age 1104/16/2016 None Full Exam - General 1994 Constitutional general appearance Hygiene/Attention to Grooming: good hygiene 04/16/2016 None Full Exam - General 1994 Eyes conjunctiva /eyelids Overall: conjunctiva clear 04/16/2016 None Full Exam - General 1994 Eyes conjunctiva /eyelids Overall: cornea clear 04/16/2016 None Full Exam - General 1994 Eyes conjunctiva /eyelids Overall: eyelids normal 04/16/2016 None Full Exam - General 1994 Eyes pupils and irises Overall: pupils equal, round, reactive to light and accomodation 04/16/2016 None Full Exam - General 1994 Ears/Nose/Throat otoscopic exam Overall: external auditory canals clear 04/16/2016 None Full Exam - General 1994 Ears/Nose/Throat otoscopic exam Overall: tympanic membranes clear 04/16/2016 None Full Exam - General 1994 Ears/Nose/Throat lips/teeth/gingiva Overall: benign lips 04/16/2016 None Full Exam - General 1994 Ears/Nose/Throat lips/teeth/gingiva Overall: normal dentition 04/16/2016 None Full Exam - General 1994 Ears/Nose/Throat oral cavity/pharynx/larynx Overall: oral mucosa clear 04/16/2016 None Full Exam - General 1994 Ears/Nose/Throat oral cavity/pharynx/larynx Overall: oropharyngeal mucosa clear 04/16/2016 None Full Exam - General 1994 Ears/Nose/Throat oral cavity/pharynx/larynx Overall: hypopharynx benign 04/16/2016 None Full Exam - General 1994 Ears/Nose/Throat oral cavity/pharynx/larynx Overall: no masses 04/16/2016 None Full Exam - General 1994 Respiratory auscultation Overall: breath sounds clear bilaterally 04/16/2016 None Full Exam - General 1994 Respiratory respiratory effort/rhythm Overall: no retractions 04/16/2016 None Full Exam - General 1994 Respiratory respiratory effort/rhythm Overall: normal rate 04/16/2016 None Full Exam - General 1994 Cardiovascular extremities Overall: no clubbing 04/16/2016 None Full Exam - General 1994 Cardiovascular auscultation of heart Overall: regular rate 04/16/2016 None Full Exam - General 1994 Cardiovascular auscultation of heart Overall: normal heart sounds 04/16/2016 None Full Exam - General 1994 Abdomen abdominal exam Overall: no tenderness 04/16/2016 None Full Exam - General 1994 Abdomen abdominal exam Overall: normal bowel sounds 04/16/2016 None Full Exam - General 1994 Lymphatic neck nodes Overall: anterior cervical chain benign 04/16/2016 None Full Exam - General 1994 Lymphatic neck nodes Overall: posterior cervical chain benign 04/16/2016 None Full Exam - General 1994 Musculoskeletal spine, ribs and pelvis Overall: spine benign 04/16/2016 None Full Exam - General 1994 Musculoskeletal spine, ribs and pelvis Overall: sacroiliac joint benign 04/16/2016 None Full Exam - General 1994 Musculoskeletal spine, ribs and pelvis Overall: good posture 04/16/2016 None Full Exam - General 1994 Musculoskeletal head and neck Overall: head atraumatic 04/16/2016 None Full Exam - General 1994 Musculoskeletal head and neck Overall: cervical spine benign 04/16/2016 None Full Exam - General 1994 Integument inspection of skin Overall: few scattered moles, no gross abnormalities 04/16/2016 None Full Exam - General 1994 Neurologic deep tendon reflexes Overall: deep tendon reflexes intact 04/16/2016 None Full Exam - General 1994 Neurologic cranial nerves Overall: crainial nerves 2 - 12 grossly intact 04/16/2016 None Full Exam - General 1994 Psychiatric orientation/consciousness Overall: oriented to person, place and time 04/16/2016 None Full Exam - General 1994 Psychiatric mood and affect Overall: normal mood and affect 04/16/2016 None Full Exam - General 1994 Constitutional general appearance Development: well developed 02/10/2016 None Full Exam - General 1994 Constitutional general appearance Development: appears stated age 0802/10/2016 None Full Exam - General 1994 Constitutional general appearance Hygiene/Attention to Grooming: good hygiene 02/10/2016 None Full Exam - General 1994 Eyes conjunctiva /eyelids Overall: conjunctiva clear 02/10/2016 None Full Exam - General 1994 Eyes conjunctiva /eyelids Overall: cornea clear 02/10/2016 None Full Exam - General 1994 Eyes conjunctiva /eyelids Overall: eyelids normal 02/10/2016 None Full Exam - General 1994 Eyes pupils and irises Overall: pupils equal, round, reactive to light and accomodation 02/10/2016 None Full Exam - General 1994 Ears/Nose/Throat otoscopic exam Overall: external auditory canals clear 02/10/2016 None Full Exam - General 1994 Ears/Nose/Throat otoscopic exam Overall: tympanic membranes clear 02/10/2016 None Full Exam - General 1994 Ears/Nose/Throat lips/teeth/gingiva Overall: benign lips 02/10/2016 None Full Exam - General 1994 Ears/Nose/Throat lips/teeth/gingiva Overall: normal dentition 02/10/2016 None Full Exam - General 1994 Ears/Nose/Throat oral cavity/pharynx/larynx Overall: oral mucosa clear 02/10/2016 None Full Exam - General 1994 Ears/Nose/Throat oral cavity/pharynx/larynx Overall: oropharyngeal mucosa clear 02/10/2016 None Full Exam - General 1994 Ears/Nose/Throat oral cavity/pharynx/larynx Overall: hypopharynx benign 02/10/2016 None Full Exam - General 1994 Ears/Nose/Throat oral cavity/pharynx/larynx Overall: no masses 02/10/2016 None Full Exam - General 1994 Respiratory auscultation Overall: breath sounds clear bilaterally 02/10/2016 None Full Exam - General 1994 Respiratory respiratory effort/rhythm Overall: no retractions 02/10/2016 None Full Exam - General 1994 Respiratory respiratory effort/rhythm Overall: normal rate 02/10/2016 None Full Exam - General 1994 Cardiovascular extremities Overall: no clubbing 02/10/2016 None Full Exam - General 1994 Cardiovascular auscultation of heart Overall: regular rate 02/10/2016 None Full Exam - General 1994 Cardiovascular auscultation of heart Overall: normal heart sounds 02/10/2016 None Full Exam - General 1994 Abdomen abdominal exam Overall: no tenderness 02/10/2016 None Full Exam - General 1994 Abdomen abdominal exam Overall: normal bowel sounds 02/10/2016 None Full Exam - General 1994 Lymphatic neck nodes Overall: anterior cervical chain benign 02/10/2016 None Full Exam - General 1994 Lymphatic neck nodes Overall: posterior cervical chain benign 02/10/2016 None Full Exam - General 1994 Musculoskeletal spine, ribs and pelvis Overall: spine benign 02/10/2016 None Full Exam - General 1994 Musculoskeletal spine, ribs and pelvis Overall: sacroiliac joint benign 02/10/2016 None Full Exam - General 1994 Musculoskeletal spine, ribs and pelvis Overall: good posture 02/10/2016 None Full Exam - General 1994 Musculoskeletal head and neck Overall: head atraumatic 02/10/2016 None Full Exam - General 1994 Musculoskeletal head and neck Overall: cervical spine benign 02/10/2016 None Full Exam - General 1994 Integument inspection of skin Overall: few scattered moles, no gross abnormalities 02/10/2016 None Full Exam - General 1994 Neurologic deep tendon reflexes Overall: deep tendon reflexes intact 02/10/2016 None Full Exam - General 1994 Neurologic cranial nerves Overall: crainial nerves 2 - 12 grossly intact 02/10/2016 None Full Exam - General 1994 Psychiatric orientation/consciousness Overall: oriented to person, place and time 02/10/2016 None Full Exam - General 1994 Psychiatric mood and affect Overall: normal mood and affect 02/10/2016 None Procedures Procedure Codes Date URINALYSIS NONAUTO W/O SCOPE CPT-4: 47667 02/16/2018 URINALYSIS NONAUTO W/O SCOPE CPT-4: 42293 11/14/2017 PPPS, SUBSEQ VISIT CPT -4: G0439 06/07/2017 URINALYSIS NONAUTO W/O SCOPE CPT-4: 09411 05/02/2017 URINALYSIS NONAUTO W/O SCOPE CPT-4: 76421 04/26/2017 PPPS, SUBSEQ VISIT CPT -4: G0439 06/01/2016 URINALYSIS NONAUTO W/O SCOPE CPT-4: 88427 04/16/2016 URINALYSIS NONAUTO W/O SCOPE CPT-4: 09907 02/10/2016 Vital Signs Date Vital 04/04/2018 Blood Pressure 1: 94/52 Code : 8480-6 Heart Rate 1: 120 bpm Height: 5'5" Respiratory Rate: 18 bpm SpO2: 98% Weight: 02/16/2018 Blood Pressure 1: 120/70 Code : 8480-6 BMI: 19.1 Code : 77108-8 Heart Rate 1 : 115 bpm Height: 5'5" SpO2: 97% Weight: 115 lbs 12/30/2017 Blood Pressure 1: 100/68 Code : 8480-6 BMI: 18.3 Code : 26056-7 Heart Rate 1 : 120 bpm Height: 5'5" SpO2: 94% Weight: 110 lbs 10/13/2017 Blood Pressure 1: 136/78 Code : 8480-6 BMI: 18.1 Code : 43938-7 Heart Rate 1 : 126 bpm Height: 5'5" SpO2: 96% Weight: 109 lbs 07/12/2017 Blood Pressure 1: 100/56 Code : 8480-6 BMI: 18.1 Code : 86273-6 Heart Rate 1 : 123 bpm Height: 5'5" SpO2: 99% Weight: 109 lbs 06/07/2017 Blood Pressure 1: 98/68 Code : 8480-6 BMI: 18.1 Code : 89939-4 Heart Rate 1 : 120 bpm Height: 5'5" SpO2: 99% Waist Measure (cm): 80 cm Weight: 109 lbs 05/24/2017 Blood Pressure 1: 104/62 Code : 8480-6 BMI: 18.1 Code : 28986-6 Heart Rate 1 : 121 bpm Height: 5'5" SpO2: 97% Weight: 109 lbs 04/27/2017 Blood Pressure 1: 132/84 Code : 8480-6 BMI: 17.8 Code : 38779-4 Heart Rate 1 : 129 bpm Height: 5'5" SpO2: 99% Weight: 107 lbs 04/13/2017 Blood Pressure 1: 100 Code : 8480-6 Heart Rate 1: 120 bpm Height: 5'5" SpO2: 99% Weight: 03/30/2017 Blood Pressure 1: 112 Code : 8480-6 BMI: 17.8 Code : 05412-6 Heart Rate 1 : 112 bpm Height: 5'5" SpO2: 98% Weight: 107 lbs 03/02/2017 Blood Pressure 1: 128/78 Code : 8480-6 BMI: 18.1 Code : 72328-3 Heart Rate 1 : 86 bpm Height: 5'5" SpO2: 95% Weight: 109 lbs 08/30/2016 Blood Pressure 1: 102/60 Code : 8480-6 BMI: 18.1 Code : 13343-0 Heart Rate 1 : 135 bpm Height: 5'5" SpO2: 98% Weight: 109 lbs 08/11/2016 Blood Pressure 1: 10066 Code : 8480-6 BMI: 18.6 Code : 47220-6 Heart Rate 1 : 86 bpm Height: 5'5" SpO2: 94% Weight: 112 lbs 06/01/2016 Blood Pressure 1: 126/80 Code : 8480-6 BMI: 19.0 Code : 08711-4 Heart Rate 1 : 100 bpm Height: 5'5" SpO2: 98% Waist Measure (cm): 64 cm Weight: 114 lbs 04/16/2016 Blood Pressure 1: 124/80 Code : 8480-6 Heart Rate 1: 110 bpm SpO2: 97% 02/10/2016 Blood Pressure 1: 102/64 Code : 8480-6 BMI: 18.3 Code : 53683-7 Heart Rate 1 : 114 bpm Height: 5'5" SpO2: 98% Weight: 110 lbs Functional Status No Functional Status data History of Present Illness Symptom Name Status Result Effective Date Notes diarrhea Quality intermittent 04/04/2018 None diarrhea Quality loose 04/04/2018 None diarrhea Quality watery 04/04/2018 None diarrhea Onset and Resolution sudden in onset 04/04/2018 None diarrhea Onset of Symptom 2 weeks ago 04/04/2018 None diarrhea Pertinent Findings abdominal distension 04/04/2018 None diarrhea Pertinent Findings fecal urgency 04/04/2018 None diarrhea Pertinent Findings cramping 04/04/2018 None muscle weakness Location diffusely 02/16/2018 None muscle weakness Quality both sides 02/16/2018 None muscle weakness Quality lower extremities 02/16/2018 None muscle weakness Quality improving 02/16/2018 None muscle weakness Onset and Resolution ongoing 02/16/2018 None medication follow up Location oral intake 02/16/2018 None medication follow up Quality unchanged 02/16/2018 --no reported seizure activity dysuria Quality intermittent 02/16/2018 None dysuria Onset and Resolution ongoing 02/16/2018 None dysuria Onset of Symptom 2 weeks ago 02/16/2018 None dysuria Frequency of Episodes daily 02/16/2018 None dysuria Pertinent Findings Denies fever 02/16/2018 None dysuria Pertinent Findings Denies nocturia 02/16/2018 None dysuria Pertinent Findings back pain 02/16/2018 yes with void constipation Quality intermittent 12/30/2017 None constipation Onset and Resolution ongoing 12/30/2017 None constipation Onset of Symptom _ months ago 12/30/2017 None constipation Pertinent Findings adequate oral intake 12/30/2017 None constipation Pertinent Findings Denies dyspnea 12/30/2017 None constipation Severity moderate 12/30/2017 None constipation Frequency of Episodes unchanged 12/30/2017 None constipation Triggers no known associated factors 12/30/2017 None muscle weakness Location diffusely 10/13/2017 None muscle weakness Quality both sides 10/13/2017 None muscle weakness Quality lower extremities 10/13/2017 None muscle weakness Quality improving 10/13/2017 None muscle weakness Onset and Resolution ongoing 10/13/2017 None medication follow up Location oral intake 10/13/2017 None medication follow up Quality unchanged 10/13/2017 --no reported seizure activity dizziness Quality chronic 10/13/2017 None dizziness Quality constant 10/13/2017 None dizziness Quality feelings of unsteadiness 10/13/2017 None dizziness Quality imbalance 10/13/2017 None dizziness Quality loss of balance 10/13/2017 None dizziness Quality sense of room spinning 10/13/2017 None dizziness Quality spinning 10/13/2017 None dizziness Pertinent Findings Denies blurred vision 10/13/2017 None muscle weakness Location diffusely 07/12/2017 None muscle weakness Quality both sides 07/12/2017 None muscle weakness Quality lower extremities 07/12/2017 None muscle weakness Quality improving 07/12/2017 None muscle weakness Onset and Resolution ongoing 07/12/2017 None medication follow up Location oral intake 07/12/2017 None medication follow up Quality unchanged 07/12/2017 --no reported seizure activity dizziness Quality chronic 07/12/2017 None dizziness Quality constant 07/12/2017 None dizziness Quality feelings of unsteadiness 07/12/2017 None dizziness Quality imbalance 07/12/2017 None dizziness Quality loss of balance 07/12/2017 None dizziness Quality sense of room spinning 07/12/2017 None dizziness Quality spinning 07/12/2017 None dizziness Pertinent Findings Denies blurred vision 07/12/2017 None Annual Medicare Wellness Exam Alcohol Use does not drink any alcohol 06/07/2017 None Annual Medicare Wellness Exam Aspirin Use no 06/07/2017 None Annual Medicare Wellness Exam Blood Glucose (self reported) desireable (below 100) 06/07/2017 None Annual Medicare Wellness Exam Blood Pressure (self reported ) low / normal (120/80) 06/07/2017 None Annual Medicare Wellness Exam Cholesterol (self reported) desireable (below 200) 06/07/2017 None Annual Medicare Wellness Exam Depression (last 6 months) some of the time 06/07/2017 None Annual Medicare Wellness Exam Depression or Hopelessness almost never 06/07/2017 None Annual Medicare Wellness Exam Describe Your Health fair 06/07/2017 None Annual Medicare Wellness Exam Exercise Habits exercises 2 days per week 06/07/2017 None Annual Medicare Wellness Exam Exercise Habits exercises 30 minutes per day 06/07/2017 None Annual Medicare Wellness Exam Handling Stress usually priya effectively 06/07/2017 None Annual Medicare Wellness Exam Hemaglobin A-1C (self reported ) never checked 06/07/2017 None Annual Medicare Wellness Exam Hemaglobin A-1C (self reported ) don't know 06/07/2017 None Annual Medicare Wellness Exam Hours of Sleep 6-8 06/07/2017 None Annual Medicare Wellness Exam Interaction with Friends no 06/07/2017 None Annual Medicare Wellness Exam Interests & Pleasure almost never 06/07/2017 None Annual Medicare Wellness Exam Life Satisfaction satisfied 06/07/2017 None Annual Medicare Wellness Exam Motor Vehicle Safety always fastens seat belt: yes 06/07/2017 None Annual Medicare Wellness Exam Motor Vehicle Safety drives after drinking: no 06/07/2017 None Annual Medicare Wellness Exam Motor Vehicle Safety rides with someone who has been drinking: no 06/07 None Annual Medicare Wellness Exam Nutrition servings of fried food / high fat foods per day: 1 2016 None Annual Medicare Wellness Exam Nutrition servings of high fiber / whole grain per day: 0-1 06/07/2017 None Annual Medicare Wellness Exam Nutrition servings of vegetables / fruit per day: 1 06/07/2017 None Annual Medicare Wellness Exam Smoking and Tobacco Use non smoker 06/07/2017 None Annual Medicare Wellness Exam Social & Emotional Support always 06/07/2017 None Annual Medicare Wellness Exam Stress almost never 06/07/2017 None Annual Medicare Wellness Exam Sun Exposure protects skin when outdoors: no 06/07/2017 None muscle weakness Location diffusely 05/24/2017 None muscle weakness Quality both sides 05/24/2017 None muscle weakness Quality lower extremities 05/24/2017 None muscle weakness Quality improving 05/24/2017 None muscle weakness Onset and Resolution ongoing 05/24/2017 None medication follow up Location oral intake 05/24/2017 None medication follow up Quality unchanged 05/24/2017 --no reported seizure activity dizziness Quality chronic 05/24/2017 None dizziness Quality constant 05/24/2017 None dizziness Quality feelings of unsteadiness 05/24/2017 None dizziness Quality imbalance 05/24/2017 None dizziness Quality loss of balance 05/24/2017 None dizziness Quality sense of room spinning 05/24/2017 None dizziness Quality spinning 05/24/2017 None dizziness Pertinent Findings Denies blurred vision 05/24/2017 None muscle weakness Location diffusely 04/27/2017 None muscle weakness Quality both sides 04/27/2017 None muscle weakness Quality lower extremities 04/27/2017 None muscle weakness Onset and Resolution ongoing 04/27/2017 None muscle weakness Quality improving 04/27/2017 None medication follow up Additional Comments medication: dilantin 04/27/2017 None medication follow up Location oral intake 04/27/2017 None medication follow up Quality unchanged 04/27/2017 --no reported seizure activity Hospital Follow Up _ Other: seizures 04/13/2017 None Hospital Follow Up Quality acute 04/13/2017 None Hospital Follow Up Onset of Symptom 11 days ago 04/13/2017 None gait abnormality Quality unsteady 03/30/2017 None gait abnormality Onset and Resolution gradual in onset 03/30/2017 None gait abnormality Onset and Resolution ongoing 03/30/2017 None gait abnormality Limitation on Activities necessitates ambulation with a cane or walker 03/30/2017 None dizziness Quality intermittent 03/30/2017 None dizziness Quality sense of room spinning 03/30/2017 None dizziness Onset and Resolution ongoing 03/30/2017 None dizziness Onset of Symptom years ago 03/30/2017 None dizziness Limitation on Activities moderately limits activities 03/30/2017 None dizziness Triggers no known associated factors 03/30/2017 None dizziness Pertinent Findings nausea 03/30/2017 None dizziness Pertinent Findings vomiting 03/30/2017 with the more severe episodes constipation Quality intermittent 03/30/2017 None constipation Quality 1-2 stools per week 03/30/2017 None constipation Onset and Resolution ongoing 03/30/2017 None gait abnormality Limitation on Activities necessitates ambulation with a wheelchair 03/30/2017 None gait abnormality Quality unsteady 03/02/2017 None gait abnormality Onset and Resolution gradual in onset 03/02/2017 None gait abnormality Onset and Resolution ongoing 03/02/2017 None gait abnormality Limitation on Activities necessitates ambulation with a cane or walker 03/02/2017 None dizziness Quality intermittent 03/02/2017 None dizziness Quality sense of room spinning 03/02/2017 None dizziness Onset and Resolution ongoing 03/02/2017 None dizziness Limitation on Activities moderately limits activities 03/02/2017 None dizziness Onset of Symptom years ago 03/02/2017 None dizziness Triggers no known associated factors 03/02/2017 None dizziness Pertinent Findings nausea 03/02/2017 None dizziness Pertinent Findings vomiting 03/02/2017 with the more severe episodes constipation Quality 1-2 stools per week 03/02/2017 None constipation Onset and Resolution ongoing 03/02/2017 None constipation Quality intermittent 03/02/2017 None gait abnormality Quality unsteady 08/30/2016 None gait abnormality Onset and Resolution gradual in onset 08/30/2016 None gait abnormality Onset and Resolution ongoing 08/30/2016 None gait abnormality Limitation on Activities necessitates ambulation with a cane or walker 08/30/2016 None dysuria Quality burning 08/30/2016 None dysuria Quality intermittent 08/30/2016 None dysuria Onset of Symptom 3 days ago 08/30/2016 None dysuria Limitation on Activities does not limit urination 08/30/2016 None dysuria Frequency of Episodes daily 08/30/2016 None dysuria Significant Medical Conditions recurrent urinary tract infections 08/30/2016 None dysuria Triggers no known associated factors 08/30/2016 None dysuria Alleviating Factors medication 08/30/2016 None dysuria Pertinent Findings Denies bladder pain 08/30/2016 None dysuria Pertinent Findings Denies polyuria 08/30/2016 None back pain Location lumbar-sacral spine 08/11/2016 None back pain Quality aching 08/11/2016 None back pain Quality constant 08/11/2016 None back pain Quality discomfort 08/11/2016 None back pain Quality throbbing 08/11/2016 None back pain Onset and Resolution sudden in onset 08/11/2016 None back pain Onset of Symptom 2 weeks ago 08/11/2016 None back pain Frequency of Episodes daily 08/11/2016 None Annual Medicare Wellness Exam Alcohol Use does not drink any alcohol 06/01/2016 None Annual Medicare Wellness Exam Aspirin Use no 06/01/2016 None Annual Medicare Wellness Exam Blood Glucose (self reported) don't know 06/01/2016 None Annual Medicare Wellness Exam Blood Pressure (self reported ) low / normal (120/80) 06/01/2016 None Annual Medicare Wellness Exam Cholesterol (self reported) desireable (below 200) 06/01/2016 None Annual Medicare Wellness Exam Depression (last 6 months) some of the time 06/01/2016 None Annual Medicare Wellness Exam Depression or Hopelessness almost never 06/01/2016 None Annual Medicare Wellness Exam Describe Your Health fair 06/01/2016 None Annual Medicare Wellness Exam Exercise Habits does not exercise 06/01/2016 None Annual Medicare Wellness Exam Handling Stress usually priya effectively 06/01/2016 None Annual Medicare Wellness Exam Hemaglobin A-1C (self reported ) don't know 06/01/2016 None Annual Medicare Wellness Exam Hours of Sleep 6 06/01/2016 None Annual Medicare Wellness Exam Interaction with Friends yes 06/01/2016 None Annual Medicare Wellness Exam Interests & Pleasure most of the time 06/01/2016 None Annual Medicare Wellness Exam Life Satisfaction satisfied 06/01/2016 None Annual Medicare Wellness Exam Motor Vehicle Safety always fastens seat belt: y 06/01/2016 None Annual Medicare Wellness Exam Motor Vehicle Safety drives after drinking: n 06/01/2016 None Annual Medicare Wellness Exam Motor Vehicle Safety rides with someone who has been drinking: n 2015 None Annual Medicare Wellness Exam Nutrition servings of fried food / high fat foods per day: 0 2015 None Annual Medicare Wellness Exam Nutrition servings of high fiber / whole grain per day: 2 06/01/2016 None Annual Medicare Wellness Exam Nutrition servings of vegetables / fruit per day: 1 06/01/2016 None Annual Medicare Wellness Exam Smoking and Tobacco Use non smoker 06/01/2016 None Annual Medicare Wellness Exam Social & Emotional Support always 06/01/2016 None Annual Medicare Wellness Exam Stress some of the time 06/01/2016 None Annual Medicare Wellness Exam Sun Exposure protects skin when outdoors: y 06/01/2016 None dysuria Quality intermittent 04/16/2016 None dysuria Quality burning 04/16/2016 None dysuria Onset of Symptom 3 days ago 04/16/2016 None dysuria Frequency of Episodes daily 04/16/2016 None dysuria Pertinent Findings Denies bladder pain 04/16/2016 None dysuria Pertinent Findings Denies polyuria 04/16/2016 None dysuria Limitation on Activities does not limit urination 04/16/2016 None dysuria Significant Medical Conditions recurrent urinary tract infections 04/16/2016 None dysuria Triggers no known associated factors 04/16/2016 None dysuria Alleviating Factors medication 04/16/2016 None gait abnormality Quality unsteady 02/10/2016 None gait abnormality Onset and Resolution ongoing 02/10/2016 None gait abnormality Onset and Resolution gradual in onset 02/10/2016 None gait abnormality Assistive devices walker 02/10/2016 None gait abnormality Limitation on Activities necessitates ambulation with a cane or walker 02/10/2016 None Advance Directives Advance Directives Present Encounters Encounter Performer Location Codes Date ([id number]) [id number] EST. PATIENT, LEVEL III Diagnosis: Right upper quadrant abdominal rigidity[ICD10: R19.31] Diagnosis: Functional diarrhea[ICD10: K59.1] Diagnosis: Calculus of gallbladder without cholecystitis without obstruction[ ICD10: K80.20] [facility] CPT-4: 33496 04/04/2018 ([id number]) 53789 EST. PATIENT, LEVEL IV Diagnosis: Other epilepsy, not intractable, without status epilepticus[ICD10: G40.802] Diagnosis: Slow transit constipation[ICD10: K59.01] Diagnosis: Dysuria[ICD10: R30.0] Diagnosis: Age-related osteoporosis without current pathological fracture[ICD10 : M81.0] Magali eZpeda MD, [facility] CPT-4: 00571 2017 ([id number]) 64057 EST. PATIENT, LEVEL III Diagnosis: Slow transit constipation[ICD10: K59.01] Mishel Steve Zepeda MD [facility] CPT-4: 36911 12/30/2017 ([id number]) 08450 EST. PATIENT, LEVEL IV Diagnosis: Other epilepsy, not intractable, without status epilepticus[ICD10: G40.802] Diagnosis: Slow transit constipation[ICD10: K59.01] Magali Zepeda MD [facility] CPT-4: 88317 10/13/2017 ([id number]) 70043 EST. PATIENT, LEVEL III Diagnosis: Other epilepsy, not intractable, without status epilepticus[ICD10: G40.802] Diagnosis: Dysuria[ICD10: R30.0] Diagnosis: Mixed incontinence[ICD10: N39.46] Magali Zepeda MD, [facility] CPT-4: 14630 07/12/2017 ([id number]) 61026 EST. 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 PATIENT, LEVEL III Diagnosis: Other epilepsy, not intractable, without status epilepticus[ICD10: G40.802] Magali Zepeda MD, [facility] CPT-4: 24282 2016 ([id number]) 47512 EST. 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 PATIENT, LEVEL IV Diagnosis: Calculus of gallbladder without cholecystitis without obstruction[ ICD10: K80.20] Diagnosis: Benign paroxysmal vertigo, bilateral[ICD10: H81.13] Diagnosis: Slow transit constipation[ICD10: K59.01] Magali Zepeda MD, [facility] CPT-4: 00544 03/02/2017 ([id number]) 12331 EST. 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 PATIENT, LEVEL IV Diagnosis: Other epilepsy, not intractable, without status epilepticus[ICD10: G40.802] Diagnosis: Low back pain[ICD10: M54.5] Diagnosis: Pressure ulcer of sacral region, stage 1[ICD10: L89.151] Windy Zepeda MD, [facility] CPT-4: 32107 08/11/2016 ([id number]) 46776 EST. PATIENT, LEVEL III Diagnosis: Urinary tract infection, site not specified[ICD10: N39.0] Diagnosis: Slow transit constipation[ICD10: K59.01] Mishel Zepeda MD, [facility] CPT-4: 30575 04/16/2016 ([id number]) OFFICE VISIT, NEW - LEVEL 4 Diagnosis: Other abnormalities of gait and mobility[ICD10: R26.89] Diagnosis: Dysuria[ICD10: R30.0] Diagnosis: Rheumatoid arthritis without rheumatoid factor, multiple sites[ICD10 : M06.09] [facility] CPT-4: 48813 Plan of Care Planned Activity Notes Codes Status Date Visit Plan: Diarrhea - with right upper quadrant pain - cholelithiasis - recommendation is for pt to be seen by Dr. Mcintyre - pt sent to his clinic today for work-up and plan for removal of gallbladder. 04/04/2018 Appointment: Magali Zepeda WPtel: [phone] [facility] (15 min) Moderate 04/04/2018 Patient Education: Patient Medication Summary Completed 04/04/2018 Patient Education: Diarrhea Completed 04/04/2018 Visit Plan: Epilepsy - chronic - continue with current regimen - check labs. Osteoporosis - pt is currently getting Prolia in [place], this is a big burden for her - They have asked for her to be set up for prolia for at the end of may at [address]- to call with specific date. Dysuria - UA - +leukocytes - start on keflex - rx sent to pharmacy. Chronic constipation - monitor symptoms. Continue with supportive care. 02/16/2018 Appointment: Magali Zepeda WPtel: [phone] [facility] (15 min) Moderate 02/16/2018 Patient Education: Patient Medication Summary Completed 02/16/2018 Visit Plan: Constipation - uncontrolled - I have discussed with the patient the need for adequate fiber and water intake to facilitate soft , easily passed stools. The pt noted understanding of our conversation. I have given the patient a recipe for "power pudding" - equal parts, bran flakes, prune juice, and apple sauce. The pt is to call if symptoms not improved on this regimen. 12/30/2017 Appointment: Mishel Wilson WPtel: [phone] [phone] [place] (30 min) Complex 12/30/2017 Patient Education: Patient Medication Summary Completed 12/30/2017 Patient Education: Patient Medication Summary Completed 11/14/2017 Visit Plan: Epilepsy - continue with dilantin - decrease total dose down from 23 pills to 22 pills a day. Constipation - uncontrolled - I have discussed with the patient the need for adequate fiber and water intake to facilitate soft, easily passed stools. The pt noted understanding of our conversation. I have given the patient a recipe for "power pudding" - equal parts, bran flakes, prune juice, and apple sauce. The pt is to call if symptoms not improved on this regimen. 10/13/2017 Appointment: Magali Zepeda WPtel: [phone] [facility] [place] (15 min) Moderate 10/13/2017 Patient Education: Patient Medication Summary Completed 10/13/2017 Appointment: Magali Zepeda WPtel: [facility] (15 min) Moderate 10/06/2017 Appointment: Lab Draw 07/15/2017 Visit Plan: Epilepsy - chronic - symptoms stable - pt states that she is taking 300mg two days and then and 400mg two days and alternate again with 300mg for two days and this continues to alternate - her dilantin level is good and she is to continue with current treatment regimen. Dysuria - check UA - pt did not get a specimen in the office today - threw her toilet paper into the urine specimen on accident 07/12/2017 Appointment: Mag[facility]epeda WPtel[facility] [place] (15 min) Moderate 07/12/2017 Patient Education: Patient Medication Summary Completed 07/12/2017 Appointment: Magali [facility]epeda WPtel: [facility] [place] (15 min) Moderate 07/05/2017 Visit Plan: Medicare Exam - today we discussed the patients past history, immunizations, preventative exams/evaluations - colonoscopy, fecal occult blood testing, routine labs for renal function, glucose, cholesterol, osteoporosis evaluations, cardiovascular testing and cancer screenings. We have also discussed mental health and the signs/symptoms of depression. The patient was advised of home safety evaluations and the need to make sure that as the aging process continues, we need to be aware of different ways to make the home a safer place to reside. The patient has also been counseled that exercise is necessary - and of utmost importance as we age to help decrease fall risk and to maintain independece in the home. Today we discussed the need for the patient to create paperwork for Advanced directives as well as for the patient to provide this office with a copy of her DOPA paperwork for health care surrogate. 06/07/2017 Visit Plan: Medicare Exam - today we discussed the patients past history, immunizations, preventative exams/evaluations - colonoscopy, fecal occult blood testing, routine labs for renal function, glucose, cholesterol, osteoporosis evaluations, cardiovascular testing and cancer screenings. We have also discussed mental health and the signs/symptoms of depression. The patient was advised of home safety evaluations and the need to make sure that as the aging process continues, we need to be aware of different ways to make the home a safer place to reside. The patient has also been counseled that exercise is necessary - and of utmost importance as we age to help decrease fall risk and to maintain independece in the home. Today we discussed the need for the patient to create paperwork for Advanced directives as well as for the patient to provide this office with a copy of her DOPA paperwork for health care surrogate. 06/07/2017 Appointment: Windy Greco WPtel: [facility] [facility] - Annual Wellness Visit 06/07/2017 Patient Education: Patient Medication Summary Completed 06/07/2017 Visit Plan: Epilepsy - chronic - pt on dilantin - check labs today. Dilantin level elevated - at 24 - discussed with pt on the phone and we are planning on patient to have Dilantin 3 tabs 4 days per week and 4 tabs 3 times per week. 05/24/2017 Appointment: Magali Zepeda WPtel: [facility] (15 min) Moderate 05/24/2017 Patient Education: Patient Medication Summary Completed 05/24/2017 Appointment: [facility]eda [facility]el[phone] (15 min) Moderate 05/11/2017 Visit Plan: UTI - pt with positive urinalysis - culture sent if appropriate. Antibiotic electronically prescribed to pt's pharmacy of choice. Pt to call if symptoms do not improve. 05/02/2017 Appointment: Lab Draw 05/02/2017 Patient Education: Patient Medication Summary Completed 05/02/2017 Visit Plan: Epilepsy - chronic - symptoms stable - pt states that she is taking 300mg 5 days a week and 400mg two days a week (most weeks and occasionally she will have 400mg three times a week) 04/27/2017 Appointment: Magali Zepeda WPtel: [phone] [facility] (15 min) Moderate 04/27/2017 Patient Education: Patient Medication Summary Completed 04/27/2017 Care Plan: Dilantin Ordered 04/27/2017 Appointment: Lab Draw 04/26/2017 Patient Education: Patient Medication Summary Completed 04/26/2017 Visit Plan: Epilepsy - with elevated dilantin levels recently - attempting to adjust the patient's medications - med changes as follows: increase dilantin to 100mg in morning and 200mg at bedtime Gait Instability - home health referral for therapy, monitor symptoms. 04/13/2017 Appointment: [facility]eda [facility]el[phone] (15 min) Moderate 04/13/2017 Patient Education: Patient Medication Summary Completed 04/13/2017 Visit Plan: Epilepsy - with chronic dilantin use - her level was checked today - see recommendations as follows: DILANTIN LEVEL IS ELEVATED - I HAVE HER HOLDING IT TUESDAY, TUESDAY, TUESDAY, TAKE ONE PILL ON TUESDAY AND TUESDAY AND WILL REPEAT A DILANTIN LEVEL ON TUESDAY. I TALKED TO HER AT 1:20 TODAY TO INFORM HER OF THIS PLAN- Gallstones - recommended pt to call if having increase in discomfort - I have advised the patient to consider referral to surgeon if symptoms worsen. Constipation - stable. Low back pain - chronic - no change in treatment strategy. 03/30/2017 Appointment: Magali Zepeda WPtel: [phone] [facility] [place] (15 min) Moderate 03/30/2017 Patient Education: Patient Medication Summary Completed 03/30/2017 Patient Education: Patient Medication Summary Completed 03/30/2017 Visit Plan: Vertigo - referral to [facility] for vertigo. Pt given exercises for vertigo - cawthorne/cocksey exercises. Gallstones - gb ultrasound - dx of gallstones. Constipation - uncontrolled - I have discussed with the patient the need for adequate fiber and water intake to facilitate soft, easily passed stools. The pt noted understanding of our conversation. I have given the patient a recipe for "power pudding" - equal parts, bran flakes, prune juice, and apple sauce. The pt is to call if symptoms not improved on this regimen. Pt to start on Senna bid x 1 week and then as needed for constipation. 03/02/2017 Appointment: Magali Zepeda WPtel: [facility] (30 min) Complex 03/02/2017 Patient Education: Patient Medication Summary Completed 03/02/2017 Visit Plan: RA and Gait abnormality -continue with current treatments - supportive care Suspect some of her movement abnormalities may be due to her lamotrigine. 08/30/2016 Appointment: Magali Zepeda WPtel: [facility] (30 min) Complex 08/30/2016 Patient Education: Patient Medication Summary Completed 08/30/2016 Visit Plan: Low back pain- Will order x-ray - The pt is to use prn antiinflammatories to manage acute pain. The patient is to call the office if the pain is worsening or does not improve. Stage 1 pressure ulcer to sacrum/Cellulitis - area very tender to the touch - Pt is to take oral antibiotics as directed, return to clinic as previously directed, call for acute change in symptoms, worsening redness, warmth, discharge. 08/11/2016 Appointment: Windy Greco WPtel: [facility] (30 min) Complex 08/11/2016 Patient Education: Patient Medication Summary Completed 08/11/2016 Visit Plan: Medicare Exam - today we discussed the patients past history, immunizations, preventative exams/evaluations - colonoscopy, fecal occult blood testing, routine labs for renal function, glucose, cholesterol, osteoporosis evaluations, cardiovascular testing and cancer screenings. We have also discussed mental health and the signs/symptoms of depression. The patient was advised of home safety evaluations and the need to make sure that as the aging process continues, we need to be aware of different ways to make the home a safer place to reside. The patient has also been counseled that exercise is necessary - and of utmost importance as we age to help decrease fall risk and to maintain independece in the home. Today we discussed the need for the patient to create paperwork for Advanced directives as well as for the patient to provide this office with a copy of her DOPA paperwork for health care surrogate. 06/01/2016 Appointment: Windy Greco WPtel: [facility] [place] [address] - Annual Wellness Visit 06/01/2016 Patient Education: Patient Medication Summary Completed 06/01/2016 Visit Plan: Urinary Tract Infection-discussed natural and expected course of this diagnosis and to alert me if symptoms do not follow expected course, or if any worse. UA positive for infection today in the office- plan to send for culture and will call patient with results. RX sent to patient' s pharmacy. Avoid tub baths, restrictive underwear, etc. Recommend patient start on probiotic while taking the antibiotic to prevent diarrhea. Patient verbalized understanding of plan. Constipation - uncontrolled - I have discussed with the patient the need for adequate fiber and water intake to facilitate soft, easily passed stools. The pt noted understanding of our conversation. I have given the patient a recipe for "power pudding" - equal parts, bran flakes, prune juice, and apple sauce. The pt is to call if symptoms not improved on this regimen. 04/16/2016 Appointment: Mishel Wilson WPtel: [phone] (15 min) Moderate 04/16/2016 Patient Education: Patient Medication Summary Completed 04/16/2016 Visit Plan: RA and Gait abnormality - recommended pt to have referral to physical therapy at [facility]. Suspect some of her movement abnormalities may be due to her lamotrigine. 02/10/2016 Appointment: Magali Zepeda WPtel: [facility] New Patient 02/10/2016 Patient Education: Patient Medication Summary Completed 02/10/2016 Instructions Comment Turn every 2 hours and use pillow to relieve pressure - monitor area on the tail bone - let me know how it is doing. Use tylenol for pain, but let me know if the pain is uncontrolled. . Low back pain- Will order x-ray - The pt is to use prn antiinflammatories to manage acute pain. The patient is to call the office if the pain is worsening or does not improve. Stage 1 pressure ulcer to sacrum/Cellulitis - area very tender to the touch - Pt is to take oral antibiotics as directed, return to clinic as previously directed, call for acute change in symptoms, worsening redness, warmth, discharge. . Diarrhea - with right upper quadrant pain - cholelithiasis - recommendation is for pt to be seen by Dr. Mcintyre - pt sent to his clinic today for work-up and plan for removal of gallbladder. . Epilepsy - chronic - continue with current regimen - check labs. Osteoporosis - pt is currently getting Prolia in [place], this is a big burden for her - They have asked for her to be set up for prolia for at the end of may at [facility]- to call with specific date. Dysuria - UA - +leukocytes - start on keflex - rx sent to pharmacy. Chronic constipation - monitor symptoms. Continue with supportive care. Okay to add miralax as directed . Constipation - uncontrolled - I have discussed with the patient the need for adequate fiber and water intake to facilitate soft, easily passed stools. The pt noted understanding of our conversation. I have given the patient a recipe for " power pudding" - equal parts, bran flakes, prune juice, and apple sauce. The pt is to call if symptoms not improved on this regimen. . Medicare Exam - today we discussed the patients past history, immunizations, preventative exams/evaluations - colonoscopy, fecal occult blood testing, routine labs for renal function, glucose, cholesterol, osteoporosis evaluations, cardiovascular testing and cancer screenings. We have also discussed mental health and the signs/symptoms of depression. The patient was advised of home safety evaluations and the need to make sure that as the aging process continues, we need to be aware of different ways to make the home a safer place to reside. The patient has also been counseled that exercise is necessary - and of utmost importance as we age to help decrease fall risk and to maintain independece in the home. Today we discussed the need for the patient to create paperwork for Advanced directives as well as for the patient to provide this office with a copy of her DOPA paperwork for health care surrogate. . Medicare Exam - today we discussed the patients past history, immunizations, preventative exams/evaluations - colonoscopy, fecal occult blood testing, routine labs for renal function, glucose, cholesterol, osteoporosis evaluations, cardiovascular testing and cancer screenings. We have also discussed mental health and the signs/symptoms of depression. The patient was advised of home safety evaluations and the need to make sure that as the aging process continues, we need to be aware of different ways to make the home a safer place to reside. The patient has also been counseled that exercise is necessary - and of utmost importance as we age to help decrease fall risk and to maintain independece in the home. Today we discussed the need for the patient to create paperwork for Advanced directives as well as for the patient to provide this office with a copy of her DOPA paperwork for health care surrogate. . Epilepsy - chronic - pt on dilantin - check labs today. Dilantin level elevated - at 24 - discussed with pt on the phone and we are planning on patient to have Dilantin 3 tabs 4 days per week and 4 tabs 3 times per week. . UTI - pt with positive urinalysis - culture sent if appropriate. Antibiotic electronically prescribed to pt's pharmacy of choice. Pt to call if symptoms do not improve. . RA and Gait abnormality - recommended pt to have referral to physical therapy at [facility] department. Suspect some of her movement abnormalities may be due to her lamotrigine. . Epilepsy - with chronic dilantin use - her level was checked today - see recommendations as follows: DILANTIN LEVEL IS ELEVATED - I HAVE HER HOLDING IT TUESDAY, TUESDAY, TUESDAY, TAKE ONE PILL ON TUESDAY AND TUESDAY AND WILL REPEAT A DILANTIN LEVEL ON TUESDAY. I TALKED TO HER AT 1:20 TODAY TO INFORM HER OF THIS PLAN- Gallstones - recommended pt to call if having increase in discomfort - I have advised the patient to consider referral to surgeon if symptoms worsen. Constipation - stable. Low back pain - chronic - no change in treatment strategy. . Epilepsy - chronic - symptoms stable - pt states that she is taking 300mg two days and then and 400mg two days and alternate again with 300mg for two days and this continues to alternate - her dilantin level is good and she is to continue with current treatment regimen. Dysuria - check UA - pt did not get a specimen in the office today - threw her toilet paper into the urine specimen on accident . Vertigo - referral to [facility] for vertigo. Pt given exercises for vertigo - cawthorne/cocksey exercises. Gallstones - gb ultrasound - dx of gallstones. Constipation - uncontrolled - I have discussed with the patient the need for adequate fiber and water intake to facilitate soft, easily passed stools. The pt noted understanding of our conversation. I have given the patient a recipe for "power pudding" - equal parts, bran flakes, prune juice, and apple sauce. The pt is to call if symptoms not improved on this regimen. Pt to start on Senna bid x 1 week and then as needed for constipation. . Epilepsy - chronic - symptoms stable - pt states that she is taking 300mg 5 days a week and 400mg two days a week (most weeks and occasionally she will have 400mg three times a week) increase dilantin to 100mg in morning and 200mg at bedtime . Epilepsy - with elevated dilantin levels recently - attempting to adjust the patient's medications - med changes as follows: increase dilantin to 100mg in morning and 200mg at bedtime Gait Instability - home health referral for therapy, monitor symptoms. . Medicare Exam - today we discussed the patients past history, immunizations, preventative exams/evaluations - colonoscopy, fecal occult blood testing, routine labs for renal function, glucose, cholesterol, osteoporosis evaluations, cardiovascular testing and cancer screenings. We have also discussed mental health and the signs/symptoms of depression. The patient was advised of home safety evaluations and the need to make sure that as the aging process continues, we need to be aware of different ways to make the home a safer place to reside. The patient has also been counseled that exercise is necessary - and of utmost importance as we age to help decrease fall risk and to maintain independece in the home. Today we discussed the need for the patient to create paperwork for Advanced directives as well as for the patient to provide this office with a copy of her DOPA paperwork for health care surrogate. . RA and Gait abnormality -continue with current treatments - supportive care Suspect some of her movement abnormalities may be due to her lamotrigine. . Epilepsy - continue with dilantin - decrease total dose down from 23 pills to 22 pills a day. Constipation - uncontrolled - I have discussed with the patient the need for adequate fiber and water intake to facilitate soft, easily passed stools. The pt noted understanding of our conversation. I have given the patient a recipe for "power pudding" - equal parts, bran flakes, prune juice, and apple sauce. The pt is to call if symptoms not improved on this regimen. RECOMMEND PROBIOTIC-ANY BRAND IS FINE: [employer], [employer], ALIGN sign release for labs from DR HINTON . Urinary Tract Infection-discussed natural and expected course of this diagnosis and to alert me if symptoms do not follow expected course, or if any worse. UA positive for infection today in the office-plan to send for culture and will call patient with results. RX sent to patient's pharmacy. Avoid tub baths, restrictive underwear, etc. Recommend patient start on probiotic while taking the antibiotic to prevent diarrhea. Patient verbalized understanding of plan. Constipation - uncontrolled - I have discussed with the patient the need for adequate fiber and water intake to facilitate soft, easily passed stools. The pt noted understanding of our conversation. I have given the patient a recipe for "power pudding" - equal parts, bran flakes, prune juice, and apple sauce. The pt is to call if symptoms not improved on this regimen.
--- OUTSIDE RECORDS SUMMARY | 2018-04-12 09:48 | XMS REPORT | CCD ---
Author Author Magali Zepeda Organization Magali Zepeda MD, [facility] Address [address] [place] [address] Phone Care Team Providers Care [employer] Black Belt Name Role Phone PP Unavailable CCM Unavailable Summary Purpose Interface Exchange Insurance Providers Payer name Policy type / Coverage type Covered democrat ID Effective Begin Date Effective End Date WPS Medicare Part B Medicare Part B [id number] 2017 Unknown [employer] Medicare Part B [id number] Unknown Family history Sister Diagnosis Age At [...] Unknown Retired 02/10/[address]: 933283885 Never smoker 02/10/[address]: 752871596 Never drinks alcohol 02/10/2016 Has the patient [...] Fill Instructions lamotrigine 100 mg tablet RxNorm: 963472 TAKE 1 TABLET BY MOUTH IN THE MORNING 03/31/2018 No Stop Date Active dicyclomine 10 mg capsule RxNorm: 619036 TAKE ONE CAPSULE BY MOUTH TWICE DAILY NEEDED 02/20/2018 No Stop Date Active Penlac 8 % topical solution RxNorm: 027284 1 Application TOP daily clean off every 7 days and restart application process 02/16/2018 09/13/2018 Active ok to dispense generic Keflex 500 mg capsule RxNorm: 057782 1 Capsule(s) PO QID 201702/22/2018 Inactive please call patient to let her know she needs to pick up man rx for antibiotic Dilantin Extended 100 mg capsule RxNorm: 633720 Capsule(s) PO UD 1 cap TID x 3 days then 1 cap qid x 1 day then repeat cycle 12/15/2017 04/13/2018 Active give 1 month supply lamotrigine 150 mg tablet RxNorm: 255132 1 Tablet(s) PO QHS 04/05/2018 Active lamotrigine 100 mg tablet RxNorm: 823287 1 Tablet(s) PO QAM 03/30/2018 Inactive Levaquin 500 mg tablet RxNorm: 372881 1 Tablet(s) PO daily 12/11/2017 Inactive Keflex 500 mg capsule RxNorm: 931767 1 Capsule(s) PO TID 201711/20/2017 Inactive Keflex 500 mg capsule RxNorm: 399442 1 Capsule(s) PO TID 201711/13/2017 Inactive Dilantin Extended 100 mg capsule RxNorm: 391779 Capsule(s) PO UD m3pill/tue3 pill/ wed 4 pill/ thur 2pill/fri 3pill/sat 4pill/sun 3 pill 201712/14/2017 Inactive Dilantin Extended 100 mg capsule RxNorm: 434840 Capsule(s) PO UD -Alternate 300 mg for two days in a row and then 400 mg for one day and repeat cycle 10/04/2017 10/12/2017 Inactive Augmentin 500 mg-125 mg tablet RxNorm: 299057 1 Tablet(s) PO TID 07/15/2017 07/14/2017 Inactive Augmentin 500 mg-125 mg tablet RxNorm: 142787 1 Tablet(s) PO TID 07/15/2017 07/21/2017 Inactive Dilantin Extended 100 mg capsule RxNorm: 254908 1 Capsule(s) PO daily -Alternate 300 mg and 400 mg every other day 06/07/2017 10/03/2017 Inactive Bactrim DS 800 mg-160 mg tablet RxNorm: 237694 1 Tablet(s) PO BID 05/02/2017 05/08/2017 Inactive Dilantin Extended 100 mg capsule RxNorm: 949299 1 Capsule(s) PO daily in the afternoon and 2 Capsules PO HS- Will take an additional pill if she has a lot of jerking 04/27/2017 06/06/2017 Inactive Keflex 500 mg capsule RxNorm: 466131 1 Capsule(s) PO TID 201604/23/2017 Inactive dicyclomine 10 mg capsule RxNorm: 389035 1 Capsule(s) PO BID as needed 03/30/2017 05/28/2017 Inactive Senna with Docusate Sodium 8.6 mg-50 mg tablet RxNorm: 531913 1 Tablet(s) PO BID as needed constipation 03/02/20172017 Inactive Keflex 500 mg capsule RxNorm: 419836 1 Capsule(s) PO TID 201608/20/2016 Inactive Levaquin 500 mg tablet RxNorm: 186599 1 Tablet(s) PO daily 09/201504/22/2016 Inactive ciprofloxacin 500 mg tablet RxNorm: 204395 1 Tablet(s) PO BID 02/10/2016 02/16/2016 Inactive prednisone 10 mg tablet RxNorm: 034813 1 Tablet(s) PO as needed for pain No Start Date Active Prolia 60 mg/mL subcutaneous syringe RxNorm: 418059 1 injection SQ Q6 months No Start Date Active lamotrigine 150 mg tablet RxNorm: 172248 1 Tablet(s) PO QHS No Start Date 12/06/2017 Inactive lamotrigine 100 mg tablet RxNorm: 824512 1 Tablet(s) PO QAM No Start Date 12/06/2017 Inactive Dilantin Extended 100 mg capsule RxNorm: 010962 Capsule(s) PO TAKES FOUR CAPSULES FOR 2 DAYS, THEN THREE CAPSULES FOR 1 DAY, THEN REPEATS No Start Date 04/26/2017 Inactive Humira 20 mg/0.4 mL subcutaneous syringe kit RxNorm: 453344 1 injection SQ every 2 weeks- Prescribed [...] Observation Code Item Item Code Result Date Culture Urine [id number] URINE CULTURE SEE NOTES 02/20/2018 Culture Urine [id number] Continued Results 02/20/2018 Urine Culture Ucult Complete >100,000 col/ml aerobic growth sent to ref lab 02/17/2018 Dilantin Ord7 DILANTIN 14.4 UG/ML 02/16/2018 Comp Metabolic Sem506 NA 135 mEq/L 02/16/2018 Comp Metabolic Bml416 K 3.8 mEq/L 02/16/2018 Comp Metabolic Xxp841 CL 99 mEq/L 02/16/2018 Comp Metabolic Lqz340 CO2 28.0 mEq/L 02/16/2018 Comp Metabolic Xwd240 ANION GAP 12 02/16/2018 Comp Metabolic Evl070 GLUCOSE 101 mg/dL 02/16/2018 Comp Metabolic Izf706 Creat 0.8 mg/dL 02/16/2018 Comp Metabolic Zyu747 eGFR 75 ml/min/1.73m2 02/16/2018 Comp Metabolic Evd444 BUN 20 mg/dL 02/16/2018 Comp Metabolic Mgx912 B/C Ratio 25.0 Ratio 02/16/2018 Comp Metabolic Tzk878 CALCIUM 8.9 mg/dL 02/16/2018 Comp Metabolic Nas420 ALK PHOS 95 U/L 02/16/2018 Comp Metabolic Yqz498 AST(SGOT) 13 U/L 02/16/2018 Comp Metabolic Kje592 ALT(SGPT) 7 U/L 02/16/2018 Comp Metabolic Npv405 BILI T 0.4 mg/dL 02/16/2018 Comp Metabolic Ptd776 ALBUMIN 3.6 g/dL 02/16/2018 Comp Metabolic Isb774 TPRO 7.2 g/dL 02/16/2018 Comp Metabolic Luz268 GLOB 3.6 g/dL 02/16/2018 Comp Metabolic Iyr860 A/G Ratio 1.0 Ratio 02/16/2018 Comp Metabolic Vpx936 Osmo 273 mOsmo 02/16/2018 Urine Culture Ucult Complete >100,000 col/ml aerobic growth sent to ref lab 11/15/2017 Comp Metabolic Inf228 NA 136 mEq/L 10/13/2017 Comp Metabolic Pnl396 K 4.0 mEq/L 10/13/2017 Comp Metabolic Qpl837 CL 98 mEq/L 10/13/2017 Comp Metabolic Cqq209 CO2 28.0 mEq/L 10/13/2017 Comp Metabolic Lpy594 ANION GAP 14 10/13/2017 Comp Metabolic Mkv332 GLUCOSE 94 mg/dL 10/13/2017 Comp Metabolic Zvj944 Creat 0.7 mg/dL 10/13/2017 Comp Metabolic Ytm309 eGFR 82 ml/min/1.73m2 10/13/2017 Comp Metabolic Glb411 BUN 26 mg/dL 10/13/2017 Comp Metabolic Vcw437 B/C Ratio 35.1 Ratio 10/13/2017 Comp Metabolic Fic579 CALCIUM 9.1 mg/dL 10/13/2017 Comp Metabolic Cuq527 ALK PHOS 98 U/L 10/13/2017 Comp Metabolic Ahi173 AST(SGOT) 15 U/L 10/13/2017 Comp Metabolic Lmr509 ALT(SGPT) 8 U/L 10/13/2017 Comp Metabolic Dyx373 BILI T 0.4 mg/dL 10/13/2017 Comp Metabolic Ayt949 ALBUMIN 3.7 g/dL 10/13/2017 Comp Metabolic Ixo823 TPRO 7.8 g/dL 10/13/2017 Comp Metabolic Frs963 GLOB 4.1 g/dL 10/13/2017 Comp Metabolic Myy928 A/G Ratio 0.9 Ratio 10/13/2017 Comp Metabolic Mxk571 Osmo 276 mOsmo 10/13/2017 Dilantin Ord7 DILANTIN 21.4 Result Verified By Repeat Analysis UG/ML 10/13/2017 Dilantin Ord7 DILANTIN 24.1 Result Verified By Repeat Analysis UG/ML 10/03/2017 Dilantin Ord7 DILANTIN 18.1 UG/ML 06/30/2017 Dilantin Ord7 DILANTIN 22.7 UG/ML 06/16/2017 Dilantin Ord7 DILANTIN 26.1 UG/ML 06/07/2017 Dilantin Ord7 DILANTIN 24.1 UG/ML 05/24/2017 Dilantin Ord7 DILANTIN 19.6 UG/ML 05/11/2017 Culture Urine [id number] URINE CULTURE SEE NOTES 05/06/2017 Culture Urine [id number] Continued Results 05/06/2017 Urine Culture Ucult Complete >100,000 col/ml aerobic growth sent to ref lab 05/03/2017 Dilantin Ord7 DILANTIN 12.6 UG/ML 04/27/2017 Calcium Ord79 CALCIUM 9.3 mg/dL 04/19/2017 Dilantin Ord7 DILANTIN 21.6 UG/ML 04/19/2017 Dilantin Ord7 DILANTIN 10.3 UG/ML 04/13/2017 Dilantin Ord7 DILANTIN 21.9 UG/ML 04/07/2017 Comp Metabolic Rcc982 NA 137 mEq/L 03/30/2017 Comp Metabolic Zdv511 K 3.7 mEq/L 03/30/2017 Comp Metabolic Qsn202 CL 98 mEq/L 03/30/2017 Comp Metabolic Gya581 CO2 29.0 mEq/L 03/30/2017 Comp Metabolic Ema915 ANION GAP 14 03/30/2017 Comp Metabolic Znz155 GLUCOSE 100 mg/dL 03/30/2017 Comp Metabolic Isq524 Creat 0.9 mg/dL 03/30/2017 Comp Metabolic Qwx803 eGFR 88 ml/min/1.73m2 03/30/2017 Comp Metabolic Bja367 BUN 22 mg/dL 03/30/2017 Comp Metabolic Kyj741 B/C Ratio 24.4 Ratio 03/30/2017 Comp Metabolic Edo846 CALCIUM 9.4 mg/dL 03/30/2017 Comp Metabolic Jjy604 ALK PHOS 113 U/L 03/30/2017 Comp Metabolic Uth761 AST(SGOT) 16 U/L 03/30/2017 Comp Metabolic Qcf123 ALT(SGPT) 7 U/L 03/30/2017 Comp Metabolic Znk225 BILI T 0.3 mg/dL 03/30/2017 Comp Metabolic Gez551 ALBUMIN 3.9 g/dL 03/30/2017 Comp Metabolic Hol409 TPRO 8.0 g/dL 03/30/2017 Comp Metabolic Lva647 GLOB 4.1 g/dL 03/30/2017 Comp Metabolic Gcc387 A/G Ratio 0.9 Ratio 03/30/2017 Comp Metabolic Zag775 Osmo 277 mOsmo 03/30/2017 Lipid Ord30 CHOL 214 mg/dL 03/30/2017 Lipid Ord30 HDL 61.0 mg/dl 03/30/2017 Lipid Ord30 TRIG 130 mg/dL 03/30/2017 Lipid Ord30 LDL 127 mg/dL 03/30/2017 Lipid Ord30 C/HDL 3.5 Ratio 03/30/2017 Dilantin Ord7 DILANTIN 32.5 UG/ML 03/30/2017 Folate Ord36 Folate 16.46 ng/mL 03/30/2017 Tsh Ord6 hTSH II 0.95 uIU/mL 03/30/2017 B12 Myl948 B12 592.00 pg/ml 03/30/2017 Cbc With Differential [...] 30.9 pg 03/30/2017 Cbc With Differential Ord2 [place]% 23.9 % 03/30/2017 Cbc With Differential Ord2 [...] 0.44 K/ul 03/30/2017 Cbc With Differential Ord2 [place] ABS# 0.3 K/ul 03/30/2017 Cbc With Differential [...] 30.3 pg 08/11/2016 Cbc With Differential Ord2 [place]% 31.7 % 08/11/2016 Cbc With Differential Ord2 [...] 0.59 K/ul 08/11/2016 Cbc With Differential Ord2 [place] ABS# 0.6 K/ul 08/11/2016 Cbc With Differential Ord2 Eos ABS# 0.0 K/ul 08/11/2016 Cbc With Differential Ord2 Baso ABS# 0.0 K/ul 08/11/2016 Dilantin Ord7 DILANTIN 17.2 UG/ML 08/11/2016 Tsh Ord6 hTSH II 0.82 uIU/mL 08/11/2016 Comp Metabolic Vgz471 NA 131 mEq/L 08/11/2016 Comp Metabolic Cnx874 K 4.1 mEq/L 08/11/2016 Comp Metabolic Esr769 CL 93 mEq/L 08/11/2016 Comp Metabolic Ybk606 CO2 29.0 mEq/L 08/11/2016 Comp Metabolic Vwa872 ANION GAP 13 08/11/2016 Comp Metabolic Zex139 GLUCOSE 120 mg/dL 08/11/2016 Comp Metabolic Sol805 Creat 0.8 mg/dL 08/11/2016 Comp Metabolic Rqw082 eGFR 101 ml/min/1.73m2 08/11/2016 Comp Metabolic Agw693 BUN 18 mg/dL 08/11/2016 Comp Metabolic Kqh280 B/C Ratio 22.5 Ratio 08/11/2016 Comp Metabolic Pkz249 CALCIUM 9.5 mg/dL 08/11/2016 Comp Metabolic Mhv885 ALK PHOS 104 U/L 08/11/2016 Comp Metabolic Ulm207 AST(SGOT) 16 U/L 08/11/2016 Comp Metabolic Hqc209 ALT(SGPT) 8 U/L 08/11/2016 Comp Metabolic Aen830 BILI T 0.4 mg/dL 08/11/2016 Comp Metabolic Mtf016 ALBUMIN 3.8 g/dL 08/11/2016 Comp Metabolic Jco292 TPRO 8.4 g/dL 08/11/2016 Comp Metabolic Haq353 GLOB 4.6 g/dL 08/11/2016 Comp Metabolic Vjm384 A/G Ratio 0.8 Ratio 08/11/2016 Comp Metabolic Wwd031 Osmo 266 mOsmo 08/11/2016 Culture Urine [id number] URINE CULTURE SEE NOTES 04/19/2016 Culture Urine [id number] Continued Results 04/19/2016 Urine Culture Ucult Complete >100,000 col/ml aerobic growth sent to ref lab 04/17/2016 Culture Urine [id number] URINE CULTURE SEE NOTES 02/13/2016 Culture Urine [id number] Continued Results 02/13/2016 Urine Culture Ucult Complete [...] affect 08/30/2016 None Full Exam - General 1995 Constitutional general appearance Hygiene/Attention to Grooming: good hygiene 08/11/2016 None Full Exam - General 1995 Eyes conjunctiva /eyelids Overall: conjunctiva clear 08/11/2016 None Full Exam - General 1994 Eyes conjunctiva /eyelids Overall: eyelids normal 08/11/2016 None Full Exam - General 1995 Ears/Nose/Throat lips/teeth/gingiva Overall: benign lips 08/11/2016 None [...] Codes Date URINALYSIS NONAUTO W/O SCOPE CPT-4: 63112 02/16/2018 URINALYSIS NONAUTO W/O SCOPE CPT-4: 26496 11/14/2017 PPPS, SUBSEQ VISIT CPT -4: G0439 06/07/2017 URINALYSIS NONAUTO W/O SCOPE CPT-4: 06631 05/02/2017 URINALYSIS NONAUTO W/O SCOPE CPT-4: 24303 04/26/2017 PPPS, SUBSEQ VISIT CPT -4: G0439 06/01/2016 URINALYSIS NONAUTO W/O SCOPE CPT-4: 60610 04/16/2016 URINALYSIS NONAUTO W/O SCOPE CPT-4: 83288 02/10/2016 Vital Signs Date Vital 04/04/2018 Blood Pressure 1: 94/52 Code : 8480-6 Heart Rate 1: 120 bpm Height: 5'5" Respiratory Rate: 18 bpm SpO2: 98% Weight: 02/16/2018 Blood Pressure 1: 120/70 Code : 8480-6 BMI: 19.1 Code : 98439-6 Heart Rate 1 : 115 bpm Height: 5'5" SpO2: 97% Weight: 115 lbs 12/30/2017 Blood Pressure 1: 100/68 Code : 8480-6 BMI: 18.3 Code : 87443-2 Heart Rate 1 : 120 bpm Height: 5'5" SpO2: 94% Weight: 110 lbs 10/13/2017 Blood Pressure 1: 136/78 Code : 8480-6 BMI: 18.1 Code : 25529-6 Heart Rate 1 : 126 bpm Height: 5'5" SpO2: 96% Weight: 109 lbs 07/12/2017 Blood Pressure 1: 100/56 Code : 8480-6 BMI: 18.1 Code : 17222-2 Heart Rate 1 : 123 bpm Height: 5'5" SpO2: 99% Weight: 109 lbs 06/07/2017 Blood Pressure 1: 98/68 Code : 8480-6 BMI: 18.1 Code : 94933-7 Heart Rate 1 : 120 bpm Height: 5'5" SpO2: 99% Waist Measure (cm): 80 cm Weight: 109 lbs 05/24/2017 Blood Pressure 1: 104/62 Code : 8480-6 BMI: 18.1 Code : 64334-6 Heart Rate 1 : 121 bpm Height: 5'5" SpO2: 97% Weight: 109 lbs 04/27/2017 Blood Pressure 1: 132/84 Code : 8480-6 BMI: 17.8 Code : 37936-4 Heart Rate 1 : 129 bpm Height: 5'5" SpO2: 99% Weight: 107 lbs 04/13/2017 Blood Pressure 1: 100/ Code : 8480-6 Heart Rate 1: 120 bpm Height: 5'5" SpO2: 99% Weight: 03/30/2017 Blood Pressure 1: 112 Code : 8480-6 BMI: 17.8 Code : 97881-4 Heart Rate 1 : 112 bpm Height: 5'5" SpO2: 98% Weight: 107 lbs 03/02/2017 Blood Pressure 1: 128/78 Code : 8480-6 BMI: 18.1 Code : 29895-3 Heart Rate 1 : 86 bpm Height: 5'5" SpO2: 95% Weight: 109 lbs 08/30/2016 Blood Pressure 1: 102/60 Code : 8480-6 BMI: 18.1 Code : 54988-0 Heart Rate 1 : 135 bpm Height: 5'5" SpO2: 98% Weight: 109 lbs 08/11/2016 Blood Pressure 1: 100/66 Code : 8480-6 BMI: 18.6 Code : 15400-4 Heart Rate 1 : 86 bpm Height: 5'5" SpO2: 94% Weight: 112 lbs 06/01/2016 Blood Pressure 1: 126/80 Code : 8480-6 BMI: 19.0 Code : 95075-6 Heart Rate 1 : 100 bpm Height: 5'5" SpO2: 98% Waist Measure (cm): 64 cm Weight: 114 lbs 04/16/2016 Blood Pressure 1: 124/80 Code : 8480-6 Heart Rate 1: 110 bpm SpO2: 97% 02/10/2016 Blood Pressure 1: 102/64 Code : 8480-6 BMI: 18.3 Code : 34286-2 Heart Rate 1 : 114 bpm Height: [...] Present Encounters Encounter Performer Location Codes Date ([id number]) 35156 EST. PATIENT, LEVEL III Diagnosis: Right upper quadrant abdominal rigidity[ICD10: R19.31] Diagnosis: Functional diarrhea[ICD10: K59.1] Diagnosis: Calculus of gallbladder without cholecystitis without obstruction[ ICD10: K80.20] [facility] CPT-4: 49309 04/04/2018 ([id number]) 57759 EST. PATIENT, LEVEL IV Diagnosis: Other epilepsy, not intractable, without status epilepticus[ICD10: G40.802] Diagnosis: Slow transit constipation[ICD10: K59.01] Diagnosis: Dysuria[ICD10: R30.0] Diagnosis: Age-related osteoporosis without current pathological fracture[ICD10 : M81.0] Magali Zepeda MD [facility] CPT-4: 81930 2017 ([id number]) 34087 EST. PATIENT, LEVEL III Diagnosis: Slow transit constipation[ICD10: K59.01] Mishel Wilson Magali Zepeda MD, [facility] CPT-4: 30761 12/30/2017 ([id number]) 20250 EST. PATIENT, LEVEL IV Diagnosis: Other epilepsy, not intractable, without status epilepticus[ICD10: G40.802] Diagnosis: Slow transit constipation[ICD10: K59.01] Magali Zepeda MD [facility] CPT-4: 73939 10/13/2017 ([id number]) 61066 EST. PATIENT, LEVEL III Diagnosis: Other epilepsy, not intractable, without status epilepticus[ICD10: G40.802] Diagnosis: Dysuria[ICD10: R30.0] Diagnosis: Mixed incontinence[ICD10: N39.46] Magali Zepeda MD, [facility] CPT-4: 65258 07/12/2017 ([id number]) 92968 EST. 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 PATIENT, LEVEL III Diagnosis: Other epilepsy, not intractable, without status epilepticus[ICD10: G40.802] Magali Zepeda MD, [facility] CPT-4: 29430 2016 ([id number]) 82365 EST. 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 PATIENT, LEVEL IV Diagnosis: Calculus of gallbladder without cholecystitis without obstruction[ ICD10: K80.20] Diagnosis: Benign paroxysmal vertigo, bilateral[ICD10: H81.13] Diagnosis: Slow transit constipation[ICD10: K59.01] Magali Zepeda MD, [facility] CPT-4: 89436 03/02/2017 ([id number]) 28841 EST. 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 PATIENT, LEVEL IV Diagnosis: Other epilepsy, not intractable, without status epilepticus[ICD10: G40.802] Diagnosis: Low back pain[ICD10: M54.5] Diagnosis: Pressure ulcer of sacral region, stage 1[ICD10: L89.151] Wnidy Zepeda MD, [facility] CPT-4: 04414 08/11/2016 ([id number]) 85853 EST. PATIENT, LEVEL III Diagnosis: Urinary tract infection, site not specified[ICD10: N39.0] Diagnosis: Slow transit constipation[ICD10: K59.01] Mishel Zepeda MD, [facility] CPT-4: 55196 04/16/2016 ([id number]) OFFICE VISIT, NEW - LEVEL 4 Diagnosis: Other abnormalities of gait and mobility[ICD10: R26.89] Diagnosis: Dysuria[ICD10: R30.0] Diagnosis: Rheumatoid arthritis without rheumatoid factor, multiple sites[ICD10 : M06.09] [facility] CPT-4: 86073 Plan of Care Planned Activity Notes Codes Status Date Visit Plan: Diarrhea - with right upper quadrant pain - cholelithiasis - recommendation is for pt to be seen by Dr. Mcintyre - pt sent to his clinic today for work-up and plan for removal of gallbladder. 04/04/2018 Patient Education: Patient Medication Summary Completed 04/04/2018 Patient Education: Diarrhea Completed 04/04/2018 Visit Plan: Epilepsy - chronic - continue with current regimen - check labs. Osteoporosis - pt is currently getting Prolia in [place], this is a big burden for her - They have asked for her to be set up for prolia for at the end of may at [address]- to call with specific date. Dysuria - UA - +leukocytes - start on keflex - rx sent to pharmacy. Chronic constipation - monitor symptoms. Continue with supportive care. 02/16/2018 [phone] [facility] ([facility] Moderate 02/16/2018 Patient Education: Patient [...] this regimen. 12/30/2017 Appointment: Mis[phone] [phone] (30 min) Complex 12/30/2017 Patient Education: Patient [...] this regimen. 10/13/2017 Appointment: [facility] [phone] [facility] [place] (15 min) Moderate 10/13/2017 Patient Education: Patient Medication Summary Completed 10/13/2017 Appointment: StrabaneMathew petersony WPtel: [facility] [place] (15 min) Moderate 10/06/2017 Appointment: Lab Draw [...] on accident 07/12/2017 Appointment: Magali Zepeda WPtel: [facility] [place] (15 min) Moderate 07/12/2017 Patient Education: Patient Medication Summary Completed 07/12/2017 Appointment: Mathew Zepeday WPtel: [facility] [place] (15 min) Moderate 07/05/2017 [...] care surrogate. 06/07/2017 Appointment: Windy Greco [facility] [phone] [facility] [facility] - Annual Wellness Visit 06/07/2017 Patient Education: [...] per week. 05/24/2017 Appointment: Magali Zepeda WPtel: [facility] ([facility] min) Moderate 05/24/2017 Patient Education: Patient Medication Summary Completed 05/24/2017 Appointment: [facility] [phone] [facility] (15 min) Moderate 05/11/2017 Visit [...] a week) 04/27/2017 Appointment: [facility] [phone] [facility] [place] (15 min) Moderate 04/27/2017 Patient Education: Patient [...] monitor symptoms. 04/13/2017 Appointment: [facility] [phone] [facility] (15 min) Moderate 04/13/2017 Patient [...] treatment strategy. 03/30/2017 Appointment: [phone] [facility] [place] (15 min) Moderate 03/30/2017 Patient Education: [...] for constipation. 03/02/2017 Appointment: Magali Zepeda WPtel: [phone] [facility] (30 min) Complex 03/02/2017 Patient Education: Patient Medication Summary Completed 03/02/2017 Visit Plan: RA and Gait abnormality -continue with current treatments - supportive care Suspect some of her movement abnormalities may be due to her lamotrigine. 08/30/2016 Appointment: Magali Zepeda WPtel: [facility] (30 min) Complex 08/30/2016 Patient Education: Patient [...] warmth, discharge. 08/11/2016 Appointment: Windy Greco WPtel: [phone] [facility] (30 min) Complex 08/11/2016 Patient Education: Patient [...] paperwork for health care surrogate. 06/01/2016 Appointment: Angus Windy WPtel: [facility] - Annual Wellness Visit 06/01/2016 Patient Education: [...] this regimen. 04/16/2016 Appointment: Mishel Wilson WPtel: [facility] [place] [phone] (15 min) Moderate 04/16/2016 Patient Education: Patient Medication Summary Completed 04/16/2016 Visit Plan: RA and Gait abnormality - recommended pt to have referral to physical therapy at [facility]. Suspect some of her movement abnormalities may be due to her lamotrigine. 02/10/2016 Appointment: Magali Zepeda WPtel: [facility] New Patient 02/10/2016 Patient Education: Patient Medication [...] - pt is currently getting Prolia in [place], this is a big burden for her [...] have referral to physical therapy at [facility] [place]. Suspect some of her movement abnormalities may [...] this regimen. RECOMMEND PROBIOTIC-ANY BRAND IS FINE: [facility], ALIGN sign release for labs from DR [...]
--- OUTSIDE RECORDS SUMMARY | 2018-04-12 09:49 | XMS REPORT | CCD ---
Author Author Magali Zepeda Organization Magali Zepeda MD, [facility] Address [address] [place] [address] Phone Care Team Providers Care Bilingual Case Manager Name Role Phone PP Unavailable CCM Unavailable Summary Purpose Interface Exchange Insurance Providers Payer name Policy type / Coverage type Covered libertarian ID Effective Begin Date Effective End Date WPS Medicare Part B Medicare Part B [id number] Unknown Unknown [employer] [place] Medicare Part B [id number] Unknown Unknown Family history Sister Diagnosis Age At [...] Unknown Retired 02/10/[address]: 831245409 Never smoker 02/10/[address]: 439377337 Never drinks alcohol 02/10/2016 Has the patient ever used illegal drugs? Unknown Has never used illegal drugs 02/10/2016 Allergies, Adverse Reactions, Alerts Allergies, Adverse Reactions, Alerts data not found Past Medical History Illness Codes Condition Status Onset Date Resolved Date Encounter for general adult medical examination with abnormal findings ICD-9: V70.0 ICD-10: Z00.01 Active 05/31/2016 Unknown Other epilepsy, not intractable, without status epilepticus ICD-9: 345.10 ICD-10: G40.802 Active 08/11/2016 Unknown 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 ICD-10: G62.0 Active 03/30/2017 Unknown Generalized idiopathic epilepsy and epileptic syndromes, not intractable, with status epilepticus ICD-9: 345.3 ICD-10: G40.301 Active 08/30/2016 Unknown Dysuria ICD-9: 788.1 ICD-10: R30.0 Active 02/09/2016 Unknown Unsteadiness on feet ICD-9: 781.2 ICD-10: R26.81 Active 04/13/2017 Unknown Calculus of gallbladder without cholecystitis without obstruction ICD-9: 574.20 ICD-10: K80.20 Active 03/02/2017 Unknown Low back pain ICD-9: 724.2 ICD-10: M54.5 Active 08/11/2016 Unknown Other specified polyneuropathies ICD-9: 356.8 ICD-10: G62.89 Active 03/30/2017 Unknown Slow transit constipation ICD-9: 564.01 ICD-10: K59.01 Active 04/15/2016 Unknown Benign paroxysmal vertigo, bilateral ICD-9: 386.11 ICD-10: H81.13 Active 03/02/2017 Unknown Essential (primary) hypertension ICD-9: 401.1 ICD-10: I10 Active 08/30/2016 Unknown Rheumatoid arthritis without rheumatoid factor, multiple sites ICD-9: 714.0 ICD-10: M06.09 Active 02/09/2016 Unknown Pressure ulcer of sacral region, stage 1 ICD-9: 707.03 ICD-10: L89.151 Active 08/11/2016 Unknown Urinary tract infection, site not specified ICD-9: 599.0 ICD-10: N39.0 Active 04/15/2016 Unknown Other abnormalities of gait and mobility ICD-9: 781.2 ICD-10: R26.89 Active 02/09/2016 Unknown Problems Condition Codes Effective Dates Condition Status Encounter for general adult medical examination with abnormal findings ICD-9: V70.0 ICD-10: Z00.01 05/31/2016 Active Other epilepsy, not intractable, without status epilepticus ICD-9: 345.10 ICD-10: G40.802 08/11/2016 Active 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 ICD-10: G62.0 03/30/2017 Active Generalized idiopathic epilepsy and epileptic syndromes, not intractable, with status epilepticus ICD-9: 345.3 ICD-10: G40.301 08/30/2016 Active Dysuria ICD-9: 788.1 ICD-10: R30.0 02/09/2016 Active Unsteadiness on feet ICD-9: 781.2 ICD-10: R26.81 04/13/2017 Active Calculus of gallbladder without cholecystitis without obstruction ICD-9: 574.20 ICD-10: K80.20 03/02/2017 Active Low back pain ICD-9: 724.2 ICD-10: M54.5 08/11/2016 Active Other specified polyneuropathies ICD-9: 356.8 ICD-10: G62.89 03/30/2017 Active Slow transit constipation ICD-9: 564.01 ICD-10: K59.01 04/15/2016 Active Benign paroxysmal vertigo, bilateral ICD-9: 386.11 ICD-10: H81.13 03/02/2017 Active Essential (primary) hypertension ICD-9: 401.1 ICD-10: I10 08/30/2016 Active Rheumatoid arthritis without rheumatoid factor, multiple sites ICD-9: 714.0 ICD-10: M06.09 02/09/2016 Active Pressure ulcer of sacral region, stage 1 ICD-9: 707.03 ICD-10: L89.151 08/11/2016 Active Urinary tract infection, site not specified ICD-9: 599.0 ICD-10: N39.0 04/15/2016 Active Other abnormalities of gait and mobility ICD-9: 781.2 ICD-10: R26.89 02/09/2016 Active Medications Medication Codes Instructions Start Date Stop Date Status Fill Instructions Dilantin Extended 100 mg capsule RxNorm: 914841 1 Capsule(s) PO daily -Alternate 300 mg and 400 mg every other day 06/07/2017 No Stop Date Active Bactrim DS 800 mg-160 mg tablet RxNorm: 791625 1 Tablet(s) PO BID 05/02/2017 05/08/2017 Inactive Dilantin Extended 100 mg capsule RxNorm: 805368 1 Capsule(s) PO daily in the afternoon and 2 Capsules PO HS- Will take an additional pill if she has a lot of jerking 04/27/2017 06/06/2017 Inactive Keflex 500 mg capsule RxNorm: 945955 1 Capsule(s) PO TID 201604/23/2017 Inactive dicyclomine 10 mg capsule RxNorm: 957420 1 Capsule(s) PO BID as needed 03/30/2017 05/28/2017 Inactive Senna with Docusate Sodium 8.6 mg-50 mg tablet RxNorm: 233300 1 Tablet(s) PO BID as needed constipation 03/02/20172017 Active Keflex 500 mg capsule RxNorm: 359108 1 Capsule(s) PO TID 201608/20/2016 Inactive Levaquin 500 mg tablet RxNorm: 861572 1 Tablet(s) PO daily 09/201504/22/2016 Inactive ciprofloxacin 500 mg tablet RxNorm: 694633 1 Tablet(s) PO BID 02/10/2016 02/16/2016 Inactive prednisone 10 mg tablet RxNorm: 023536 1 Tablet(s) PO as needed for pain No Start Date Active lamotrigine 150 mg tablet RxNorm: 435394 1 Tablet(s) PO QHS No Start Date Active lamotrigine 100 mg tablet RxNorm: 768000 1 Tablet(s) PO QAM No Start Date Active Prolia 60 mg/mL subcutaneous syringe RxNorm: 676445 1 injection SQ Q6 months No Start Date Active Dilantin Extended 100 mg capsule RxNorm: 022287 Capsule(s) PO TAKES FOUR CAPSULES FOR 2 DAYS, THEN THREE CAPSULES FOR 1 DAY, THEN REPEATS No Start Date 04/26/2017 Inactive Humira 20 mg/0.4 mL subcutaneous syringe kit RxNorm: 346170 1 injection SQ every 2 weeks- Prescribed by Dr. Baker No Start Date 05/23/2017 Inactive Medication Administered No Medication Administered data Immunizations No Immunization data Assessments Condition Codes Effective Dates Encounter for general adult medical examination with abnormal findings ICD-10: Z00.01 ICD-9: V70.0 06/07/2017 Other epilepsy, not intractable, without status epilepticus ICD-10: G40.802 ICD-9: 345.10 06/07/2017 Drug-induced polyneuropathy ICD-10: G62.0 ICD-9: 357.7 05/24/2017 Dysuria ICD-10: R30.0 ICD-9: 788.1 05/02/2017 Generalized idiopathic epilepsy and epileptic syndromes, not intractable, with status epilepticus ICD-10: G40.301 ICD-9: 345.3 04/13/2017 Unsteadiness on feet ICD-10: R26.81 ICD-9: 781.2 04/13/2017 Other specified polyneuropathies ICD-10: G62.89 ICD-9: 356.8 03/30/2017 Calculus of gallbladder without cholecystitis without obstruction ICD-10: K80.20 ICD-9: 574.20 03/30/2017 Low back pain ICD-10: M54.5 ICD-9: 724.2 03/30/2017 Slow transit constipation ICD-10: K59.01 ICD-9: 564.01 03/30/2017 Benign paroxysmal vertigo, bilateral ICD-10: H81.13 ICD-9: 386.11 03/02/2017 Rheumatoid arthritis without rheumatoid factor, multiple sites ICD-10: M06.09 ICD-9: 714.0 08/30/2016 Pressure ulcer of sacral region, stage 1 ICD-10: L89.151 ICD-9: 707.03 08/11/2016 Urinary tract infection, site not specified ICD-10: N39.0 ICD-9: 599.0 04/16/2016 Other abnormalities of gait and mobility ICD-10: R26.89 ICD-9: 781.2 02/10/2016 Reason For Visit Reason For Visit Effective Dates Notes Annual Medicare Wellness Exam 06/07/2017 muscle weakness 05/24/2017 muscle weakness 04/27/2017 Hospital Follow Up 04/13/2017 gait abnormality 03/30/2017 gait abnormality 03/02/2017 gait abnormality 08/30/2016 back pain 08/11/2016 Annual Medicare Wellness Exam 06/01/2016 dysuria 04/16/2016 gait abnormality 02/10/2016 Results Observation Observation Code Item Item Code Result Date Dilantin Ord7 DILANTIN 22.7 UG/ML 06/16/2017 Dilantin Ord7 DILANTIN 26.1 UG/ML 06/07/2017 Dilantin Ord7 DILANTIN 24.1 UG/ML 05/24/2017 Dilantin Ord7 DILANTIN 19.6 UG/ML 05/11/2017 Culture Urine [id number] URINE CULTURE SEE NOTES 05/06/2017 Culture Urine [id number] Continued Results 05/06/2017 Urine Culture Ucult Complete >100,000 col/ml aerobic growth sent to ref lab 05/03/2017 Dilantin Ord7 DILANTIN 12.6 UG/ML 04/27/2017 Calcium Ord79 CALCIUM 9.3 mg/dL 04/19/2017 Dilantin Ord7 DILANTIN 21.6 UG/ML 04/19/2017 Dilantin Ord7 DILANTIN 10.3 UG/ML 04/13/2017 Dilantin Ord7 DILANTIN 21.9 UG/ML 04/07/2017 Comp Metabolic Eyn138 NA 137 mEq/L 03/30/2017 Comp Metabolic Dlm408 K 3.7 mEq/L 03/30/2017 Comp Metabolic Yaq622 CL 98 mEq/L 03/30/2017 Comp Metabolic Kup463 CO2 29.0 mEq/L 03/30/2017 Comp Metabolic Zkp962 ANION GAP 14 03/30/2017 Comp Metabolic Tyy607 GLUCOSE 100 mg/dL 03/30/2017 Comp Metabolic Oti545 Creat 0.9 mg/dL 03/30/2017 Comp Metabolic Mxj823 eGFR 88 ml/min/1.73m2 03/30/2017 Comp Metabolic Xfm783 BUN 22 mg/dL 03/30/2017 Comp Metabolic Vlv328 B/C Ratio 24.4 Ratio 03/30/2017 Comp Metabolic Snb854 CALCIUM 9.4 mg/dL 03/30/2017 Comp Metabolic Lce137 ALK PHOS 113 U/L 03/30/2017 Comp Metabolic Vkz161 AST(SGOT) 16 U/L 03/30/2017 Comp Metabolic Wjc822 ALT(SGPT) 7 U/L 03/30/2017 Comp Metabolic Psi306 BILI T 0.3 mg/dL 03/30/2017 Comp Metabolic Lki374 ALBUMIN 3.9 g/dL 03/30/2017 Comp Metabolic Ryu668 TPRO 8.0 g/dL 03/30/2017 Comp Metabolic Jbf238 GLOB 4.1 g/dL 03/30/2017 Comp Metabolic Ioq542 A/G Ratio 0.9 Ratio 03/30/2017 Comp Metabolic Vss051 Osmo 277 mOsmo 03/30/2017 Lipid Ord30 CHOL 214 mg/dL 03/30/2017 Lipid Ord30 HDL 61.0 mg/dl 03/30/2017 Lipid Ord30 TRIG 130 mg/dL 03/30/2017 Lipid Ord30 LDL 127 mg/dL 03/30/2017 Lipid Ord30 C/HDL 3.5 Ratio 03/30/2017 Dilantin Ord7 DILANTIN 32.5 UG/ML 03/30/2017 Folate Ord36 Folate 16.46 ng/mL 03/30/2017 Tsh Ord6 hTSH II 0.95 uIU/mL 03/30/2017 B12 Viy949 B12 592.00 pg/ml 03/30/2017 Cbc With Differential Ord2 WBC 1.09 K/ul 03/30/2017 Cbc With Differential Ord2 RBC 3.92 M/ul 03/30/2017 Cbc With Differential Ord2 HGB 12.1 g/dl 03/30/2017 Cbc With Differential Ord2 Neut% 27.5 % 03/30/2017 Cbc With Differential Ord2 HCT 35.0 % 03/30/2017 Cbc With Differential Ord2 MCV 89.3 fl 03/30/2017 Cbc With Differential Ord2 Lymph% 40.4 % 03/30/2017 Cbc With Differential Ord2 MCH 30.9 pg 03/30/2017 Cbc With Differential Ord2 Wolfe% 23.9 % 03/30/2017 Cbc With Differential Ord2 MCHC 34.6 pg 03/30/2017 Cbc With Differential Ord2 Eos% 7.3 % 03/30/2017 Cbc With Differential Ord2 PLT 149 K/ul 03/30/2017 Cbc With Differential Ord2 Baso% 0.9 % 03/30/2017 Cbc With Differential Ord2 RDW 13.3 % 03/30/2017 Cbc With Differential Ord2 Neut ABS# 0.30 K/ul 03/30/2017 Cbc With Differential Ord2 Lymph ABS# 0.44 K/ul 03/30/2017 Cbc With Differential Ord2 Wolfe ABS# 0.3 K/ul 03/30/2017 Cbc With Differential [...] 30.3 pg 08/11/2016 Cbc With Differential Ord2 Wolfe% 31.7 % 08/11/2016 Cbc With Differential Ord2 [...] 0.59 K/ul 08/11/2016 Cbc With Differential Ord2 Wolfe ABS# 0.6 K/ul 08/11/2016 Cbc With Differential Ord2 Eos ABS# 0.0 K/ul 08/11/2016 Cbc With Differential Ord2 Baso ABS# 0.0 K/ul 08/11/2016 Dilantin Ord7 DILANTIN 17.2 UG/ML 08/11/2016 Tsh Ord6 hTSH II 0.82 uIU/mL 08/11/2016 Comp Metabolic Nbm530 NA 131 mEq/L 08/11/2016 Comp Metabolic Ovb245 K 4.1 mEq/L 08/11/[address] 93 mEq/L 08/11/2016 Comp Metabolic Iiq100 CO2 29.0 mEq/L 08/11/2016 Comp Metabolic Rep988 ANION GAP 13 08/11/2016 Comp Metabolic Xcq080 GLUCOSE 120 mg/dL 08/11/2016 Comp Metabolic Ujx345 Creat 0.8 mg/dL 08/11/2016 Comp Metabolic Hwv011 eGFR 101 ml/min/1.73m2 08/11/2016 Comp Metabolic Vxb503 BUN 18 mg/dL 08/11/2016 Comp Metabolic Irh897 B/C Ratio 22.5 Ratio 08/11/2016 Comp Metabolic Cxx094 CALCIUM 9.5 mg/dL 08/11/2016 Comp Metabolic Rle444 ALK PHOS 104 U/L 08/11/2016 Comp Metabolic Lgv507 AST(SGOT) 16 U/L 08/11/2016 Comp Metabolic Gfy850 ALT(SGPT) 8 U/L 08/11/2016 Comp Metabolic Lvp946 BILI T 0.4 mg/dL 08/11/2016 Comp Metabolic Vrf797 ALBUMIN 3.8 g/dL 08/11/2016 Comp Metabolic Vle462 TPRO 8.4 g/dL 08/11/2016 Comp Metabolic Fmw943 GLOB 4.6 g/dL 08/11/2016 Comp Metabolic Gef739 A/G Ratio 0.8 Ratio 08/11/2016 Comp Metabolic Gfn003 Osmo 266 mOsmo 08/11/2016 Culture Urine [id number] URINE CULTURE SEE NOTES 04/19/2016 Culture Urine [id number] Continued Results 04/19/2016 Urine Culture Ucult Complete >100,000 col/ml aerobic growth sent to ref lab 04/17/2016 Culture Urine [id number] URINE CULTURE SEE NOTES 02/13/2016 Culture Urine [id number] Continued Results 02/13/2016 Urine Culture Ucult Complete >100,000 col/ml aerobic growth sent to ref lab 02/11/2016 Dilantin Ord7 DILANTIN 19.2 UG/ML 02/10/2016 Review of Systems System Result Effective Dates Constitutional No recent illness 2016 Constitutional No [...] lips 08/11/2016 None Full Exam - General 1994 [...] affect 02/10/2016 None Procedures Procedure Codes Date PPPS, SUBSEQ VISIT CPT -4: G0439 06/07/2017 URINALYSIS NONAUTO W/O SCOPE CPT-4: 74192 05/02/2017 URINALYSIS NONAUTO W/O SCOPE CPT-4: 17567 04/26/2017 PPPS, SUBSEQ VISIT CPT -4: G0439 06/01/2016 URINALYSIS NONAUTO W/O SCOPE CPT-4: 19860 04/16/2016 URINALYSIS NONAUTO W/O SCOPE CPT-4: 04840 02/10/2016 Vital Signs Date Vital 06/07/2017 Blood Pressure 1: 98/68 Code : 8480-6 BMI: 18.1 Code : 83741-7 Heart Rate 1 : 120 bpm Height: 5'5" SpO2: 99% Waist Measure (cm): 80 cm Weight: 109 lbs 05/24/2017 Blood Pressure 1: 104/62 Code : 8480-6 BMI: 18.1 Code : 12578-3 Heart Rate 1 : 121 bpm Height: 5'5" SpO2: 97% Weight: 109 lbs 04/27/2017 Blood Pressure 1: 132/84 Code : 8480-6 BMI: 17.8 Code : 46386-7 Heart Rate 1 : 129 bpm Height: 5'5" SpO2: 99% Weight: 107 lbs 04/13/2017 Blood Pressure 1: 100/66 Code : 8480-6 Heart Rate 1: 120 bpm Height: 5'5" SpO2: 99% Weight: 03/30/2017 Blood Pressure 1: 112/66 Code : 8480-6 BMI: 17.8 Code : 85965-4 Heart Rate 1 : 112 bpm Height: 5'5" SpO2: 98% Weight: 107 lbs 03/02/2017 Blood Pressure 1: 128/78 Code : 8480-6 BMI: 18.1 Code : 40916-5 Heart Rate 1 : 86 bpm Height: 5'5" SpO2: 95% Weight: 109 lbs 08/30/2016 Blood Pressure 1: 102/60 Code : 8480-6 BMI: 18.1 Code : 72102-2 Heart Rate 1 : 135 bpm Height: 5'5" SpO2: 98% Weight: 109 lbs 08/11/2016 Blood Pressure 1: 100/66 Code : 8480-6 BMI: 18.6 Code : 53712-0 Heart Rate 1 : 86 bpm Height: 5'5" SpO2: 94% Weight: 112 lbs 06/01/2016 Blood Pressure 1: 126/80 Code : 8480-6 BMI: 19.0 Code : 75757-6 Heart Rate 1 : 100 bpm Height: 5'5" SpO2: 98% Waist Measure (cm): 64 cm Weight: 114 lbs 04/16/2016 Blood Pressure 1: 124/80 Code : 8480-6 Heart Rate 1: 110 bpm SpO2: 97% 02/10/2016 Blood Pressure 1: 102/64 Code : 8480-6 BMI: 18.3 Code : 73089-3 Heart Rate 1 : 114 bpm Height: 5'5" SpO2: 98% Weight: 110 lbs Functional Status No Functional Status data History of Present Illness Symptom Name Status Result Effective Date Notes Annual Medicare Wellness Exam Alcohol Use does [...] Present Encounters Encounter Performer Location Codes Date ([id number]) [id number] EST. PATIENT, LEVEL III Diagnosis: Other epilepsy, not intractable, without status epilepticus[ICD10: G40.802] Diagnosis: Drug-induced polyneuropathy[ICD10: G62.0] Magali Zepeda MD, [facility] CPT-4: 91957 05/24/2017 ([id number]) 25281 EST. PATIENT, LEVEL III Diagnosis: Other epilepsy, not intractable, without status epilepticus[ICD10: G40.802] Magali Zepeda MD, [facility] CPT-4: 21214 2016 ([id number]) 10160 EST. PATIENT, LEVEL III Diagnosis: Generalized idiopathic epilepsy and epileptic syndromes, not intractable, with status epilepticus[ICD10: G40.301] Diagnosis: Drug-induced polyneuropathy[ICD10: G62.0] Diagnosis: Unsteadiness on feet[ICD10: R26.81] Magali Zepeda MD, [facility] CPT-4: 17174 04/13/2017 ([id number]) 09953 EST. PATIENT, LEVEL IV Diagnosis: Other epilepsy, not intractable, without status epilepticus[ICD10: G40.802] Diagnosis: Slow transit constipation[ICD10: K59.01] Diagnosis: Calculus of gallbladder without cholecystitis without obstruction[ ICD10: K80.20] Diagnosis: Low back pain[ICD10: M54.5] Diagnosis: Drug-induced polyneuropathy[ICD10: G62.0] Diagnosis: Other specified polyneuropathies[ICD10: G62.89] Magali Zepeda MD, [facility] CPT-4: 69262 03/30/2017 ([id number]) 87521 EST. PATIENT, LEVEL IV Diagnosis: Calculus of gallbladder without cholecystitis without obstruction[ ICD10: K80.20] Diagnosis: Benign paroxysmal vertigo, bilateral[ICD10: H81.13] Diagnosis: Slow transit constipation[ICD10: K59.01] Magali Zepeda MD, [facility] CPT-4: 04995 03/02/2017 ([id number]) 36774 EST. PATIENT, LEVEL IV Diagnosis: Rheumatoid arthritis without rheumatoid factor, multiple sites[ICD10 : M06.09] Diagnosis: Generalized idiopathic epilepsy and epileptic syndromes, not intractable, with status epilepticus[ICD10: G40.301] Magali Zepeda MD, [facility] CPT-4: 00602 08/30/2016 [id number] EST. PATIENT, LEVEL IV Diagnosis: Other epilepsy, not intractable, without status epilepticus[ICD10: G40.802] Diagnosis: Low back pain[ICD10: M54.5] Diagnosis: Pressure ulcer of sacral region, stage 1[ICD10: L89.151] Windy Zepeda MD, [facility] CPT-4: 54659 08/11/2016 ([id number]) 97552 EST. PATIENT, LEVEL III Diagnosis: Urinary tract infection, site not specified[ICD10: N39.0] Diagnosis: Slow transit constipation[ICD10: K59.01] Mishel Zepeda MD, [facility] CPT-4: 62656 04/16/2016 ([id number]) OFFICE VISIT, NEW - LEVEL 4 Diagnosis: Other abnormalities of gait and mobility[ICD10: R26.89] Diagnosis: Dysuria[ICD10: R30.0] Diagnosis: Rheumatoid arthritis without rheumatoid factor, multiple sites[ICD10 : M06.09] Magali Zepeda MD, [facility] CPT-4: 20418 Plan of Care Planned Activity Notes Codes Status Date Visit Plan: Medicare Exam - today we [...] care surrogate. 06/07/2017 Appointment: Windy Greco WPtel: [facility] [place] [address] - Annual Wellness Visit 06/07/2017 Patient Education: [...] per week. 05/24/2017 Appointment: Magali Zepeda WPtel: [facility] (15 min) Moderate 05/24/2017 Patient Education: Patient Medication Summary Completed 05/24/2017 Appointment: Magali Zepeda WPtel: [phone] [facility] (15 min) Moderate 05/11/2017 Visit Plan: UTI [...] a week) 04/27/2017 Appointment: Magali Zepeda WPtel: [phone] [facility] (15 min) Moderate 04/27/2017 Patient Education: Patient [...] monitor symptoms. 04/13/2017 Appointment: Magali Zepeda WPtel: [facility]9 [facility] (15 min) Moderate 04/13/2017 Patient Education: Patient [...] treatment strategy. 03/30/2017 Appointment: Magali Zepeda WPtel: [facility] (15 min) Moderate 03/30/2017 Patient Education: Patient [...] for constipation. 03/02/2017 Appointment: Magali Zepeda WPtel: [facility] (30 min) Complex 03/02/2017 Patient Education: Patient Medication Summary Completed 03/02/2017 Visit Plan: RA and Gait abnormality -continue with current treatments - supportive care Suspect some of her movement abnormalities may be due to her lamotrigine. 08/30/2016 Appointment: Magali Zepeda WPtel: [address] [place], [place] [phone] [place] (30 min) Complex 08/30/2016 Patient Education: Patient [...] warmth, discharge. 08/11/2016 Appointment: Windy Greco WPtel: [facility] (30 min) Complex 08/11/2016 Patient Education: Patient [...] care surrogate. 06/01/2016 Appointment: Windy Greco WPtel: [phone] [facility] [facility] - Annual Wellness Visit 06/01/2016 Patient Education: [...] this regimen. 04/16/2016 Appointment: Mishel Wilson [facility]el[phone] (15 min) Moderate 04/16/2016 Patient Education: Patient Medication Summary Completed 04/16/2016 Visit Plan: RA and Gait abnormality - recommended pt to have referral to physical therapy at [facility]. Suspect some of her movement abnormalities may be due to her lamotrigine. 02/10/2016 Appointment: Mag[facility]epeda WPtel[phone] [place] New Patient 02/10/2016 Patient Education: Patient Medication [...] in symptoms, worsening redness, warmth, discharge. . Medicare Exam - today we discussed [...] have referral to [facility]. Suspect some of her movement abnormalities may [...] - no change in treatment strategy. . Vertigo - referral to [facility] [...] abnormalities may be due to her lamotrigine. RECOMMEND [employer]: [facility] [place] [employer], ALIGN sign release for labs from DR [...]
--- OUTSIDE RECORDS SUMMARY | 2018-04-12 09:51 | XMS REPORT | CCD ---
Author Author Magali Zepeda Organization Magali Zepeda MD, [facility] Address [address] [place] [address] Phone Care Team Providers Care Wet Trimmer Name Role Phone PP Unavailable CCM Unavailable Summary Purpose Interface Exchange Insurance Providers Payer name Policy type / Coverage type Covered green party ID Effective Begin Date Effective End Date WPS Medicare Part B Medicare Part B [id number] Unknown Unknown [employer] Medicare Part B [id number] Unknown Unknown Family history Sister Diagnosis Age [...] Unknown Retired 02/10/[address]: 962439437 Never smoker 02/10/[address]: 099463449 Never drinks alcohol 02/10/2016 Has the patient ever used illegal drugs? Unknown Has never used illegal drugs 02/10/2016 Allergies, Adverse Reactions, Alerts Allergies, Adverse Reactions, Alerts data not found Past Medical History Illness Codes Condition Status Onset Date Resolved Date Dysuria ICD-9: 788.1 ICD-10: R30.0 Active 02/09/2016 Unknown Generalized idiopathic epilepsy and epileptic syndromes, not intractable, with status epilepticus ICD-9: 345.3 ICD-10: G40.301 Active 08/30/2016 Unknown Mixed incontinence ICD -9: 788.33 ICD-10: N39.46 Active 07/12/2017 Unknown Other epilepsy, not intractable, without status epilepticus ICD-9: 345.10 ICD-10: G40.802 Active 08/11/2016 Unknown Encounter for general adult medical examination [...] Problems Condition Codes Effective Dates Condition Status Dysuria ICD-9: 788.1 ICD-10: R30.0 02/09/2016 Active Generalized idiopathic epilepsy and epileptic syndromes, not intractable, with status epilepticus ICD-9: 345.3 ICD-10: G40.301 08/30/2016 Active Mixed incontinence ICD -9: 788.33 ICD-10: N39.46 07/12/2017 Active Other epilepsy, not intractable, without status epilepticus ICD-9: 345.10 ICD-10: G40.802 08/11/2016 Active Encounter for general adult medical examination [...] Start Date Stop Date Status Fill Instructions Augmentin 500 mg-125 mg tablet RxNorm: 357719 1 Tablet(s) PO TID 07/15/2017 07/21/2017 Active Augmentin 500 mg-125 mg tablet RxNorm: 566438 1 Tablet(s) PO TID 07/15/2017 07/14/2017 Inactive Dilantin Extended 100 mg capsule RxNorm: 533585 1 Capsule(s) PO daily -Alternate 300 mg and 400 mg every other day 06/07/2017 No Stop Date Active Bactrim DS 800 mg-160 mg tablet RxNorm: 391271 1 Tablet(s) PO BID 05/02/2017 05/08/2017 Inactive Dilantin Extended 100 mg capsule RxNorm: 657518 1 Capsule(s) PO daily in the afternoon and 2 Capsules PO HS- Will take an additional pill if she has a lot of jerking 04/27/2017 06/06/2017 Inactive Keflex 500 mg capsule RxNorm: 348197 1 Capsule(s) PO TID 201604/23/2017 Inactive dicyclomine 10 mg capsule RxNorm: 274996 1 Capsule(s) PO BID as needed 03/30/2017 05/28/2017 Inactive Senna with Docusate Sodium 8.6 mg-50 mg tablet RxNorm: 531591 1 Tablet(s) PO BID as needed constipation 03/02/20172017 Active Keflex 500 mg capsule RxNorm: 254336 1 Capsule(s) PO TID 201608/20/2016 Inactive Levaquin 500 mg tablet RxNorm: 882951 1 Tablet(s) PO daily 09/201504/22/2016 Inactive ciprofloxacin 500 mg tablet RxNorm: 396214 1 Tablet(s) PO BID 02/10/2016 02/16/2016 Inactive prednisone 10 mg tablet RxNorm: 777935 1 Tablet(s) PO as needed for pain No Start Date Active lamotrigine 150 mg tablet RxNorm: 915783 1 Tablet(s) PO QHS No Start Date Active lamotrigine 100 mg tablet RxNorm: 215033 1 Tablet(s) PO QAM No Start Date Active Prolia 60 mg/mL subcutaneous syringe RxNorm: 919815 1 injection SQ Q6 months No Start Date Active Dilantin Extended 100 mg capsule RxNorm: 930382 Capsule(s) PO TAKES FOUR CAPSULES FOR 2 DAYS, THEN THREE CAPSULES FOR 1 DAY, THEN REPEATS No Start Date 04/26/2017 Inactive Humira 20 mg/0.4 mL subcutaneous syringe kit RxNorm: 061622 1 injection SQ every 2 weeks- Prescribed by Dr. Baker No Start Date 05/23/2017 Inactive Medication Administered No Medication Administered data Immunizations No Immunization data Assessments Condition Codes Effective Dates Other epilepsy, not intractable, without status epilepticus ICD-10: G40.802 ICD-9: 345.10 07/12/2017 Mixed incontinence ICD-10: N39.46 ICD-9: 788.33 07/12/2017 Dysuria ICD-10: R30.0 ICD-9: 788.1 07/12/2017 Encounter for general adult medical examination [...] Visit Reason For Visit Effective Dates Notes muscle weakness 07/12/2017 Annual Medicare Wellness Exam 06/07/2017 muscle weakness 05/24/2017 muscle weakness 04/27/2017 Hospital Follow Up 04/13/2017 gait abnormality 03/30/2017 gait abnormality 03/02/2017 gait abnormality 08/30/2016 back pain 08/11/2016 Annual Medicare Wellness Exam 06/01/2016 dysuria 04/16/2016 gait abnormality 02/10/2016 Results Observation Observation Code Item Item Code Result Date Dilantin Ord7 DILANTIN 18.1 UG/ML 06/30/2017 Dilantin Ord7 DILANTIN 22.7 UG/ML 06/16/2017 Dilantin Ord7 DILANTIN 26.1 UG/ML 06/07/2017 Dilantin Ord7 DILANTIN 24.1 UG/ML 05/24/2017 Dilantin Ord7 DILANTIN 19.6 UG/ML 05/11/2017 Culture Urine [id number] URINE CULTURE SEE NOTES 05/06/2017 Culture Urine [id number] Continued Results 05/06/2017 Urine Culture Ucult Complete >100,000 col/ml aerobic growth sent to ref lab 05/03/2017 Dilantin Ord7 DILANTIN 12.6 UG/ML 04/27/2017 Calcium Ord79 CALCIUM 9.3 mg/dL 04/19/2017 Dilantin Ord7 DILANTIN 21.6 UG/ML 04/19/2017 Dilantin Ord7 DILANTIN 10.3 UG/ML 04/13/2017 Dilantin Ord7 DILANTIN 21.9 UG/ML 04/07/2017 Comp Metabolic Sib275 NA 137 mEq/L 03/30/2017 Comp Metabolic Uwi717 K 3.7 mEq/L 03/30/2017 Comp Metabolic Ttw893 CL 98 mEq/L 03/30/2017 Comp Metabolic Lqv840 CO2 29.0 mEq/L 03/30/2017 Comp Metabolic Sez216 ANION GAP 14 03/30/2017 Comp Metabolic Iaz024 GLUCOSE 100 mg/dL 03/30/2017 Comp Metabolic Nzs719 Creat 0.9 mg/dL 03/30/2017 Comp Metabolic Osp540 eGFR 88 ml/min/1.73m2 03/30/2017 Comp Metabolic Vsd906 BUN 22 mg/dL 03/30/2017 Comp Metabolic Uin021 B/C Ratio 24.4 Ratio 03/30/2017 Comp Metabolic Gau626 CALCIUM 9.4 mg/dL 03/30/2017 Comp Metabolic Dor267 ALK PHOS 113 U/L 03/30/2017 Comp Metabolic Fvm109 AST(SGOT) 16 U/L 03/30/2017 Comp Metabolic Xbk790 ALT(SGPT) 7 U/L 03/30/2017 Comp Metabolic Yrm954 BILI T 0.3 mg/dL 03/30/2017 Comp Metabolic Crf241 ALBUMIN 3.9 g/dL 03/30/2017 Comp Metabolic Aax158 TPRO 8.0 g/dL 03/30/2017 Comp Metabolic Ywf635 GLOB 4.1 g/dL 03/30/2017 Comp Metabolic Gbe804 A/G Ratio 0.9 Ratio 03/30/2017 Comp Metabolic Jol455 Osmo 277 mOsmo 03/30/2017 Lipid Ord30 CHOL 214 mg/dL 03/30/2017 Lipid Ord30 HDL 61.0 mg/dl 03/30/2017 Lipid Ord30 TRIG 130 mg/dL 03/30/2017 Lipid Ord30 LDL 127 mg/dL 03/30/2017 Lipid Ord30 C/HDL 3.5 Ratio 03/30/2017 Dilantin Ord7 DILANTIN 32.5 UG/ML 03/30/2017 Folate Ord36 Folate 16.46 ng/mL 03/30/2017 Tsh Ord6 hTSH II 0.95 uIU/mL 03/30/2017 B12 Bnp646 B12 592.00 pg/ml 03/30/2017 Cbc With Differential [...] 30.9 pg 03/30/2017 Cbc With Differential Ord2 Emmet% 23.9 % 03/30/2017 Cbc With Differential Ord2 [...] 0.44 K/ul 03/30/2017 Cbc With Differential Ord2 Emmet ABS# 0.3 K/ul 03/30/2017 Cbc With Differential [...] 30.3 pg 08/11/2016 Cbc With Differential Ord2 Emmet% 31.7 % 08/11/2016 Cbc With Differential Ord2 [...] 0.59 K/ul 08/11/2016 Cbc With Differential Ord2 Emmet ABS# 0.6 K/ul 08/11/2016 Cbc With Differential Ord2 Eos ABS# 0.0 K/ul 08/11/2016 Cbc With Differential Ord2 Baso ABS# 0.0 K/ul 08/11/2016 Dilantin Ord7 DILANTIN 17.2 UG/ML 08/11/2016 Tsh Ord6 hTSH II 0.82 uIU/mL 08/11/2016 Comp Metabolic Xsl854 NA 131 mEq/L 08/11/2016 Comp Metabolic Dsf798 K 4.1 mEq/L 08/11/2016 Comp Metabolic Boe433 CL 93 mEq/L 08/11/2016 Comp Metabolic Hpj759 CO2 29.0 mEq/L 08/11/2016 Comp Metabolic Ucm913 ANION GAP 13 08/11/2016 Comp Metabolic Knw256 GLUCOSE 120 mg/dL 08/11/2016 Comp Metabolic Sqg221 Creat 0.8 mg/dL 08/11/2016 Comp Metabolic Lar091 eGFR 101 ml/min/1.73m2 08/11/2016 Comp Metabolic Knu869 BUN 18 mg/dL 08/11/2016 Comp Metabolic Tzy981 B/C Ratio 22.5 Ratio 08/11/2016 Comp Metabolic Zej575 CALCIUM 9.5 mg/dL 08/11/2016 Comp Metabolic Xlx656 ALK PHOS 104 U/L 08/11/2016 Comp Metabolic Gxa513 AST(SGOT) 16 U/L 08/11/2016 Comp Metabolic Ecu216 ALT(SGPT) 8 U/L 08/11/2016 Comp Metabolic Qfz310 BILI T 0.4 mg/dL 08/11/2016 Comp Metabolic Lcf127 ALBUMIN 3.8 g/dL 08/11/2016 Comp Metabolic Iow299 TPRO 8.4 g/dL 08/11/2016 Comp Metabolic Gru141 GLOB 4.6 g/dL 08/11/2016 Comp Metabolic Uqf935 A/G Ratio 0.8 Ratio 08/11/2016 Comp Metabolic Kru312 Osmo 266 mOsmo 08/11/2016 Culture Urine [id number] URINE CULTURE SEE NOTES 04/19/2016 Culture Urine [id number] Continued Results 04/19/2016 Urine Culture Ucult Complete >100,000 col/ml aerobic growth sent to ref lab 04/17/2016 Culture Urine [id number] URINE CULTURE SEE NOTES 02/13/2016 Culture Urine [id number] Continued Results 02/13/2016 Urine Culture Ucult Complete >100,000 col/ml aerobic growth sent to ref lab 02/11/2016 Dilantin Ord7 DILANTIN 19.2 UG/ML 02/10/2016 Review of Systems System Result Effective Dates Constitutional No recent illness 2017 Constitutional No [...] G0439 06/07/2017 URINALYSIS NONAUTO W/O SCOPE CPT-4: 60859 05/02/2017 URINALYSIS NONAUTO W/O SCOPE CPT-4: 99677 04/26/2017 PPPS, SUBSEQ VISIT CPT -4: G0439 06/01/2016 URINALYSIS NONAUTO W/O SCOPE CPT-4: 32255 04/16/2016 URINALYSIS NONAUTO W/O SCOPE CPT-4: 23668 02/10/2016 Vital Signs Date Vital 07/12/2017 Blood Pressure 1: 100/56 Code : 8480-6 BMI: 18.1 Code : 80739-5 Heart Rate 1 : 123 bpm Height: 5'5" SpO2: 99% Weight: 109 lbs 06/07/2017 Blood Pressure 1: 98/68 Code : 8480-6 BMI: 18.1 Code : 62142-9 Heart Rate 1 : 120 bpm Height: 5'5" SpO2: 99% Waist Measure (cm): 80 cm Weight: 109 lbs 05/24/2017 Blood Pressure 1: 104/62 Code : 8480-6 BMI: 18.1 Code : 32797-1 Heart Rate 1 : 121 bpm Height: 5'5" SpO2: 97% Weight: 109 lbs 04/27/2017 Blood Pressure 1: 132/84 Code : 8480-6 BMI: 17.8 Code : 50908-8 Heart Rate 1 : 129 bpm Height: 5'5" SpO2: 99% Weight: 107 lbs 04/13/2017 Blood Pressure 1: 100/66 Code : 8480-6 Heart Rate 1: 120 bpm Height: 5'5" SpO2: 99% Weight: 03/30/2017 Blood Pressure 1: 112/66 Code : 8480-6 BMI: 17.8 Code : 79951-8 Heart Rate 1 : 112 bpm Height: 5'5" SpO2: 98% Weight: 107 lbs 03/02/2017 Blood Pressure 1: 128/78 Code : 8480-6 BMI: 18.1 Code : 46282-7 Heart Rate 1 : 86 bpm Height: 5'5" SpO2: 95% Weight: 109 lbs 08/30/2016 Blood Pressure 1: 102/60 Code : 8480-6 BMI: 18.1 Code : 84091-5 Heart Rate 1 : 135 bpm Height: 5'5" SpO2: 98% Weight: 109 lbs 08/11/2016 Blood Pressure 1: 100/66 Code : 8480-6 BMI: 18.6 Code : 55708-3 Heart Rate 1 : 86 bpm Height: 5'5" SpO2: 94% Weight: 112 lbs 06/01/2016 Blood Pressure 1: 126/80 Code : 8480-6 BMI: 19.0 Code : 04568-9 Heart Rate 1 : 100 bpm Height: 5'5" SpO2: 98% Waist Measure (cm): 64 cm Weight: 114 lbs 04/16/2016 Blood Pressure 1: 124/80 Code : 8480-6 Heart Rate 1: 110 bpm SpO2: 97% 02/10/2016 Blood Pressure 1: 102/64 Code : 8480-6 BMI: 18.3 Code : 12162-2 Heart Rate 1 : 114 bpm Height: 5'5" SpO2: 98% Weight: 110 lbs Functional Status No Functional Status data History of Present Illness Symptom Name Status Result Effective Date Notes muscle weakness Location diffusely 07/12/2017 None muscle [...] Present Encounters Encounter Performer Location Codes Date ([id number]) 08580 EST. PATIENT, LEVEL III Diagnosis: Other epilepsy, not intractable, without status epilepticus[ICD10: G40.802] Diagnosis: Dysuria[ICD10: R30.0] Diagnosis: Mixed incontinence[ICD10: N39.46] Magali Zepeda MD, [facility] CPT-4: 57681 07/12/2017 [id number]) 25022 EST. 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 PATIENT, LEVEL III Diagnosis: Other epilepsy, not intractable, without status epilepticus[ICD10: G40.802] Magali Zepeda MD, [facility] CPT-4: 00257 2016 [id number]) 15036 EST. 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 PATIENT, LEVEL IV Diagnosis: Calculus of gallbladder without cholecystitis without obstruction[ ICD10: K80.20] Diagnosis: Benign paroxysmal vertigo, bilateral[ICD10: H81.13] Diagnosis: Slow transit constipation[ICD10: K59.01] Magali Zepeda MD, [facility] CPT-4: 26919 03/02/2017 ([id number]) 44341 EST. PATIENT, LEVEL IV Diagnosis: Rheumatoid arthritis without rheumatoid factor, multiple sites[ICD10 : M06.09] Diagnosis: Generalized idiopathic epilepsy and epileptic syndromes, not intractable, with status epilepticus[ICD10: G40.301] Magali Zepeda MD, [facility] CPT-4: 29024 08/30/2016 95524 EST. PATIENT, LEVEL IV Diagnosis: Other epilepsy, not intractable, without status epilepticus[ICD10: G40.802] Diagnosis: Low back pain[ICD10: M54.5] Diagnosis: Pressure ulcer of sacral region, stage 1[ICD10: L89.151] Windy Zepeda MD, [facility] CPT-4: 68692 08/11/2016 ([id number]) 57406 EST. PATIENT, LEVEL III Diagnosis: Urinary tract infection, site not specified[ICD10: N39.0] Diagnosis: Slow transit constipation[ICD10: K59.01] [facility] CPT-4: 65295 04/16/2016 ([id number]) OFFICE VISIT, NEW - LEVEL 4 Diagnosis: Other abnormalities of gait and mobility[ICD10: R26.89] Diagnosis: Dysuria[ICD10: R30.0] Diagnosis: Rheumatoid arthritis without rheumatoid factor, multiple sites[ICD10 : M06.09] Magali Zepeda MD, [facility] CPT-4: 49550 Plan of Care Planned Activity Notes Codes Status Date Visit Plan: Epilepsy - chronic - symptoms [...] accident 07/12/2017 Appointment: Magali Zepeda WPtel: [facility] (15 min) Moderate 07/12/2017 Patient Education: Patient Medication Summary Completed 07/12/2017 Appointment: Magali Zepeda WPtel: [facility] (15 min) Moderate 07/05/2017 Visit Plan: Medicare [...] surrogate. 06/07/2017 Appointment: Windy Greco WPtel: [facility] [facility] - Annual Wellness Visit 06/07/2017 Patient Education: [...] week. 05/24/2017 Appointment: Magali Zepeda WPtel: [facility] (15 min) Moderate 05/24/2017 Patient Education: Patient Medication Summary Completed 05/24/2017 Appointment: Magali Zepeda WPtel: [facility] (15 min) Moderate 05/11/2017 Visit Plan: UTI [...] a week) 04/27/2017 Appointment: [facility]epeda [facility]el[phone] [facility] [place] [place] (15 min) Moderate 04/27/2017 Patient Education: [...] monitor symptoms. 04/13/2017 Appointment: [facility]epeda [facility]el[phone] (15 min) Moderate 04/13/2017 Patient Education: Patient [...] treatment strategy. 03/30/2017 Appointment: [facility]epeda [facility]el[phone] [place] (15 min) Moderate 03/30/2017 Patient Education: [...] for constipation. 03/02/2017 Appointment: Magali Zepeda WPtel: [phone] [facility] (30 min) Complex 03/02/2017 Patient Education: Patient Medication Summary Completed 03/02/2017 Visit Plan: RA and Gait abnormality -continue with current treatments - supportive care Suspect some of her movement abnormalities may be due to her lamotrigine. 08/30/2016 Appointment: Magali Zepeda WPtel: [facility] (30 min) Complex 08/30/2016 Patient Education: Patient [...] warmth, discharge. 08/11/2016 Appointment: Wind[facility] Greco [facility]Ptel: [phone] [facility] (30 min) Complex 08/11/2016 Patient Education: Patient [...] surrogate. 06/01/2016 Appointment: Windy Greco WPtel: [facility] - Annual Wellness Visit 06/01/2016 Patient [...] this regimen. 04/16/2016 Appointment: Mishel Wilson WPtel: [address] [place] [address] (15 min) Moderate 04/16/2016 Patient Education: Patient Medication Summary Completed 04/16/2016 Visit Plan: RA and Gait abnormality - recommended pt to have referral to physical therapy at [facility]. Suspect some of her movement abnormalities may be due to her lamotrigine. 02/10/2016 Appointment: Magali Zepeda WPtel: [facility] New Patient 02/10/2016 Patient Education: Patient Medication [...] her lamotrigine. RECOMMEND [employer]: [employer], ALIGN sign release for labs from DR [...]
--- NOTE | 2018-04-12 09:52 | Progress Note-Pre Operative ---
Pre-Operative Progress Note H&P Reviewed The H&P was reviewed, patient examined and no changes noted. Date Seen by Provider: Apr 04, 2018 Time Seen by Provider: 13:20 Date H&P Reviewed: Apr 12, 2018 Time H&P Reviewed: 09:52 Pre-Operative Diagnosis: Gallstones CATIE ARMSTRONG MD Apr 12, 2018 09:52
--- OUTSIDE RECORDS SUMMARY | 2018-04-12 09:52 | XMS REPORT | CCD ---
Author Author Magali Zepeda Organization Magali Zepeda MD, [facility] Address [address] [place] [address] Phone Care Team Providers Care Director Of Home Economics Name Role Phone PP Unavailable CCM Unavailable Summary Purpose Interface Exchange Insurance Providers Payer name Policy type / Coverage type Covered green party ID Effective Begin Date Effective End Date WPS Medicare Part B Medicare Part B [id number] Unknown Unknown [employer] [place] [place] Medicare Part B [id number] Unknown Unknown Family history Sister Diagnosis Age [...] Unknown Retired 02/10/[address]: 737843534 Never smoker 02/10/[address]: 654614879 Never drinks alcohol 02/10/2016 Has the patient [...] Instructions Dilantin Extended 100 mg capsule RxNorm: 536539 1 Capsule(s) PO daily -Alternate 300 mg and 400 mg every other day 06/07/2017 No Stop Date Active Bactrim DS 800 mg-160 mg tablet RxNorm: 303653 1 Tablet(s) PO BID 05/02/2017 05/08/2017 Inactive Dilantin Extended 100 mg capsule RxNorm: 024380 1 Capsule(s) PO daily in the afternoon and 2 Capsules PO HS- Will take an additional pill if she has a lot of jerking 04/27/2017 06/06/2017 Inactive Keflex 500 mg capsule RxNorm: 100668 1 Capsule(s) PO TID 201604/23/2017 Inactive dicyclomine 10 mg capsule RxNorm: 709070 1 Capsule(s) PO BID as needed 03/30/2017 05/28/2017 Inactive Senna with Docusate Sodium 8.6 mg-50 mg tablet RxNorm: 079803 1 Tablet(s) PO BID as needed constipation 03/02/20172017 Active Keflex 500 mg capsule RxNorm: 041179 1 Capsule(s) PO TID 201608/20/2016 Inactive Levaquin 500 mg tablet RxNorm: 141946 1 Tablet(s) PO daily 09/201504/22/2016 Inactive ciprofloxacin 500 mg tablet RxNorm: 445079 1 Tablet(s) PO BID 02/10/2016 02/16/2016 Inactive prednisone 10 mg tablet RxNorm: 000485 1 Tablet(s) PO as needed for pain No Start Date Active lamotrigine 150 mg tablet RxNorm: 818659 1 Tablet(s) PO QHS No Start Date Active lamotrigine 100 mg tablet RxNorm: 656526 1 Tablet(s) PO QAM No Start Date Active Prolia 60 mg/mL subcutaneous syringe RxNorm: 669023 1 injection SQ Q6 months No Start Date Active Dilantin Extended 100 mg capsule RxNorm: 796849 Capsule(s) PO TAKES FOUR CAPSULES FOR 2 DAYS, THEN THREE CAPSULES FOR 1 DAY, THEN REPEATS No Start Date 04/26/2017 Inactive Humira 20 mg/0.4 mL subcutaneous syringe kit RxNorm: 044840 1 injection SQ every 2 weeks- Prescribed [...] Ord7 DILANTIN 19.6 UG/ML 05/11/2017 Culture Urine [id number] URINE CULTURE SEE NOTES 05/06/2017 Culture Urine [id number] Continued Results 05/06/2017 Urine Culture Ucult Complete >100,000 col/ml aerobic growth sent to ref lab 05/03/2017 Dilantin Ord7 DILANTIN 12.6 UG/ML 04/27/2017 Calcium Ord79 CALCIUM 9.3 mg/dL 04/19/2017 Dilantin Ord7 DILANTIN 21.6 UG/ML 04/19/2017 Dilantin Ord7 DILANTIN 10.3 UG/ML 04/13/2017 Dilantin Ord7 DILANTIN 21.9 UG/ML 04/07/2017 Comp Metabolic Ztz383 NA 137 mEq/L 03/30/2017 Comp Metabolic Tem172 K 3.7 mEq/L 03/30/2017 Comp Metabolic Drn841 CL 98 mEq/L 03/30/2017 Comp Metabolic Hhe738 CO2 29.0 mEq/L 03/30/2017 Comp Metabolic Ekz349 ANION GAP 14 03/30/2017 Comp Metabolic Zvm766 GLUCOSE 100 mg/dL 03/30/2017 Comp Metabolic Nbl690 Creat 0.9 mg/dL 03/30/2017 Comp Metabolic Ngh105 eGFR 88 ml/min/1.73m2 03/30/2017 Comp Metabolic Ltf879 BUN 22 mg/dL 03/30/2017 Comp Metabolic Ezy340 B/C Ratio 24.4 Ratio 03/30/2017 Comp Metabolic Sbu100 CALCIUM 9.4 mg/dL 03/30/2017 Comp Metabolic Sqp556 ALK PHOS 113 U/L 03/30/2017 Comp Metabolic Qlk265 AST(SGOT) 16 U/L 03/30/2017 Comp Metabolic Bwg121 ALT(SGPT) 7 U/L 03/30/2017 Comp Metabolic Kyl134 BILI T 0.3 mg/dL 03/30/2017 Comp Metabolic Iuo093 ALBUMIN 3.9 g/dL 03/30/2017 Comp Metabolic Agc435 TPRO 8.0 g/dL 03/30/2017 Comp Metabolic Etb277 GLOB 4.1 g/dL 03/30/2017 Comp Metabolic Qve345 A/G Ratio 0.9 Ratio 03/30/2017 Comp Metabolic Dlt578 Osmo 277 mOsmo 03/30/2017 Lipid Ord30 CHOL 214 mg/dL 03/30/2017 Lipid Ord30 HDL 61.0 mg/dl 03/30/2017 Lipid Ord30 TRIG 130 mg/dL 03/30/2017 Lipid Ord30 LDL 127 mg/dL 03/30/2017 Lipid Ord30 C/HDL 3.5 Ratio 03/30/2017 Dilantin Ord7 DILANTIN 32.5 UG/ML 03/30/2017 Folate Ord36 Folate 16.46 ng/mL 03/30/2017 Tsh Ord6 hTSH II 0.95 uIU/mL 03/30/2017 B12 Glo891 B12 592.00 pg/ml 03/30/2017 Cbc With Differential Ord2 WBC 1.09 K/ul 03/30/2017 Cbc With Differential Ord2 RBC 3.92 M/ul 03/30/2017 Cbc With Differential Ord2 HGB 12.1 g/dl 03/30/2017 Cbc With Differential Ord2 HCT 35.0 % 03/30/2017 Cbc With Differential Ord2 Neut% 27.5 % 03/30/2017 Cbc With Differential Ord2 Lymph% 40.4 % 03/30/2017 Cbc With Differential Ord2 MCV 89.3 fl 03/30/2017 Cbc With Differential Ord2 Rush% 23.9 % 03/30/2017 Cbc With Differential Ord2 MCH 30.9 pg 03/30/2017 Cbc With Differential Ord2 MCHC 34.6 pg 03/30/2017 Cbc With Differential Ord2 Eos% 7.3 % 03/30/2017 Cbc With Differential Ord2 Baso% 0.9 % 03/30/2017 Cbc With Differential Ord2 PLT 149 K/ul 03/30/2017 Cbc With Differential Ord2 RDW 13.3 % 03/30/2017 Cbc With Differential Ord2 Neut ABS# 0.30 K/ul 03/30/2017 Cbc With Differential Ord2 Lymph ABS# 0.44 K/ul 03/30/2017 Cbc With Differential Ord2 Rush ABS# 0.3 K/ul 03/30/2017 Cbc With Differential [...] 30.3 pg 08/11/2016 Cbc With Differential Ord2 Rush% 31.7 % 08/11/2016 Cbc With Differential Ord2 [...] 0.59 K/ul 08/11/2016 Cbc With Differential Ord2 Rush ABS# 0.6 K/ul 08/11/2016 Cbc With Differential Ord2 Eos ABS# 0.0 K/ul 08/11/2016 Cbc With Differential Ord2 Baso ABS# 0.0 K/ul 08/11/2016 Dilantin Ord7 DILANTIN 17.2 UG/ML 08/11/2016 Tsh Ord6 hTSH II 0.82 uIU/mL 08/11/2016 Comp Metabolic Btr172 NA 131 mEq/L 08/11/2016 Comp Metabolic Gat262 K 4.1 mEq/L 08/11/2016 Comp Metabolic Hrr016 CL 93 mEq/L 08/11/2016 Comp Metabolic Rdp299 CO2 29.0 mEq/L 08/11/2016 Comp Metabolic Lah146 ANION GAP 13 08/11/2016 Comp Metabolic Zqa006 GLUCOSE 120 mg/dL 08/11/2016 Comp Metabolic Vok264 Creat 0.8 mg/dL 08/11/2016 Comp Metabolic Oyz570 eGFR 101 ml/min/1.73m2 08/11/2016 Comp Metabolic Fex059 BUN 18 mg/dL 08/11/2016 Comp Metabolic Vfx236 B/C Ratio 22.5 Ratio 08/11/2016 Comp Metabolic Ird714 CALCIUM 9.5 mg/dL 08/11/2016 Comp Metabolic Yhh284 ALK PHOS 104 U/L 08/11/2016 Comp Metabolic Drk005 AST(SGOT) 16 U/L 08/11/2016 Comp Metabolic Bon350 ALT(SGPT) 8 U/L 08/11/2016 Comp Metabolic Oyq241 BILI T 0.4 mg/dL 08/11/2016 Comp Metabolic Uyu148 ALBUMIN 3.8 g/dL 08/11/2016 Comp Metabolic Bav457 TPRO 8.4 g/dL 08/11/2016 Comp Metabolic Axr030 GLOB 4.6 g/dL 08/11/2016 Comp Metabolic Slu210 A/G Ratio 0.8 Ratio 08/11/2016 Comp Metabolic Bvm283 Osmo 266 mOsmo 08/11/2016 Culture Urine [id number] URINE CULTURE SEE NOTES 04/19/2016 Culture Urine [id number] Continued Results 04/19/2016 Urine Culture Ucult Complete >100,000 col/ml aerobic growth sent to ref lab 04/17/2016 Culture Urine [id number] URINE CULTURE SEE NOTES 02/13/2016 Culture Urine [id number] Continued Results 02/13/2016 Urine Culture Ucult Complete [...] [id number] 06/07/2017 URINALYSIS NONAUTO W/O SCOPE CPT-4: 97265 05/02/2017 URINALYSIS NONAUTO W/O SCOPE CPT-4: 51432 04/26/2017 PPPS, SUBSEQ VISIT CPT -4: G0439 06/01/2016 URINALYSIS NONAUTO W/O SCOPE CPT-4: 17424 04/16/2016 URINALYSIS NONAUTO W/O SCOPE CPT-4: 76345 02/10/2016 Vital Signs Date Vital 06/07/2017 Blood Pressure 1: 98/68 Code : 8480-6 BMI: 18.1 Code : 98661-4 Heart Rate 1 : 120 bpm Height: 5'5" SpO2: 99% Waist Measure (cm): 80 cm Weight: 109 lbs 05/24/2017 Blood Pressure 1: 104/62 Code : 8480-6 BMI: 18.1 Code : 00910-8 Heart Rate 1 : 121 bpm Height: 5'5" SpO2: 97% Weight: 109 lbs 04/27/2017 Blood Pressure 1: 132/84 Code : 8480-6 BMI: 17.8 Code : 63470-3 Heart Rate 1 : 129 bpm Height: 5'5" SpO2: 99% Weight: 107 lbs 04/13/2017 Blood Pressure 1: 100/66 Code : 8480-6 Heart Rate 1: 120 bpm Height: 5'5" SpO2: 99% Weight: 03/30/2017 Blood Pressure 1: 112/66 Code : 8480-6 BMI: 17.8 Code : 33216-9 Heart Rate 1 : 112 bpm Height: 5'5" SpO2: 98% Weight: 107 lbs 03/02/2017 Blood Pressure 1: 128/78 Code : 8480-6 BMI: 18.1 Code : 98579-4 Heart Rate 1 : 86 bpm Height: 5'5" SpO2: 95% Weight: 109 lbs 08/30/2016 Blood Pressure 1: 102/60 Code : 8480-6 BMI: 18.1 Code : 37860-0 Heart Rate 1 : 135 bpm Height: 5'5" SpO2: 98% Weight: 109 lbs 08/11/2016 Blood Pressure 1: 100/66 Code : 8480-6 BMI: 18.6 Code : 27996-7 Heart Rate 1 : 86 bpm Height: 5'5" SpO2: 94% Weight: 112 lbs 06/01/2016 Blood Pressure 1: 126/80 Code : 8480-6 BMI: 19.0 Code : 36291-1 Heart Rate 1 : 100 bpm Height: 5'5" SpO2: 98% Waist Measure (cm): 64 cm Weight: 114 lbs 04/16/2016 Blood Pressure 1: 124/80 Code : 8480-6 Heart Rate 1: 110 bpm SpO2: 97% 02/10/2016 Blood Pressure 1: 102/64 Code : 8480-6 BMI: 18.3 Code : 90467-3 Heart Rate 1 : 114 bpm Height: [...] Present Encounters Encounter Performer Location Codes Date ([id number]) 40649 EST. 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 PATIENT, LEVEL III Diagnosis: Other epilepsy, not intractable, without status epilepticus[ICD10: G40.802] Magali Zepeda MD, [facility] CPT-4: 36721 2016 ([id number]) 99213 EST. 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 PATIENT, LEVEL IV Diagnosis: Calculus of gallbladder without cholecystitis without obstruction[ ICD10: K80.20] Diagnosis: Benign paroxysmal vertigo, bilateral[ICD10: H81.13] Diagnosis: Slow transit constipation[ICD10: K59.01] Magali Zepeda MD, [facility] CPT-4: 92667 03/02/2017 ([id number]) 98249 EST. 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 PATIENT, LEVEL IV Diagnosis: Other epilepsy, not intractable, without status epilepticus[ICD10: G40.802] Diagnosis: Low back pain[ICD10: M54.5] Diagnosis: Pressure ulcer of sacral region, stage 1[ICD10: L89.151] Windy Zepeda MD, [facility] CPT-4: 84151 08/11/2016 ([id number]) 51452 EST. PATIENT, LEVEL III Diagnosis: Urinary tract infection, site not specified[ICD10: N39.0] Diagnosis: Slow transit constipation[ICD10: K59.01] Mishel Zepeda MD, [facility] CPT-4: 46499 04/16/2016 ([id number]) OFFICE VISIT, NEW - LEVEL 4 Diagnosis: Other abnormalities of gait and mobility[ICD10: R26.89] Diagnosis: Dysuria[ICD10: R30.0] Diagnosis: Rheumatoid arthritis without rheumatoid factor, multiple sites[ICD10 : M06.09] Magali Zepeda MD, [facility] CPT-4: 89283 Plan of Care Planned Activity Notes Codes [...] care surrogate. 06/07/2017 Appointment: [facility] [phone] [facility] [facility] - Annual Wellness Visit 06/07/2017 Patient [...] per week. 05/24/2017 Appointment: Magali Zepeda WPtel: [facility] (15 min) Moderate 05/24/2017 Patient Education: Patient Medication Summary Completed 05/24/2017 Appointment: Magali Zepeda WPtel: [facility] (15 min) Moderate 05/11/2017 Visit Plan: UTI [...] a week) 04/27/2017 Appointment: Magali Zepeda WPtel: [facility] (15 min) Moderate 04/27/2017 Patient Education: [...] monitor symptoms. 04/13/2017 Appointment: Magali Zepeda WPtel: [facility] [place] (15 min) Moderate 04/13/2017 Patient Education: Patient [...] strategy. 03/30/2017 Appointment: [facility]eda [facility] [phone] [facility] (15 min) Moderate 03/30/2017 Patient Education: Patient [...] constipation. 03/02/2017 Appointment: Magali Zepeda WPtel: [phone] [facility] (30 min) Complex 03/02/2017 Patient Education: Patient Medication Summary Completed 03/02/2017 Visit Plan: RA and Gait abnormality -continue with current treatments - supportive care Suspect some of her movement abnormalities may be due to her lamotrigine. 08/30/2016 Appointment: [facility]eda [facility]el[facility] [phone] [facility] [place] (30 min) Complex 08/30/2016 Patient Education: [...] warmth, discharge. 08/11/2016 [facility]: [facility] [phone] [facility] (30 min) Complex 08/11/2016 Patient Education: Patient [...] care surrogate. 06/01/2016 Appointment: Windy Greco WPtel: [facility] [facility] - Annual Wellness Visit 06/01/2016 Patient [...] this regimen. 04/16/2016 Appointment: Mishel Wilson WPtel: [phone] [place] (15 min) Moderate 04/16/2016 Patient Education: Patient Medication Summary Completed 04/16/2016 Visit Plan: RA and Gait abnormality - recommended pt to have referral to physical therapy at [facility]. Suspect some of her movement abnormalities may be due to her lamotrigine. 02/10/2016 Appointment: Magali Zepeda WPtel: [facility] New Patient 02/10/2016 Patient Education: Patient Medication [...] have referral to physical therapy at [facility]. Suspect some of her movement abnormalities may [...] RECOMMEND PROBIOTIC-ANY BRAND IS FINE: AM[facility] LANGTERES[facility], ALIGN sign release for labs from [...]
--- OUTSIDE RECORDS SUMMARY | 2018-04-12 09:53 | XMS REPORT | CCD ---
Author Author Magali Zepeda Organization Magali Zepeda MD, [facility] Address [address] [place] [address] Phone Care Team Providers Care Real Estate Transaction Coordinator Name Role Phone PP Unavailable CCM Unavailable Summary Purpose Interface Exchange Insurance Providers Payer name Policy type / Coverage type Covered democrat ID Effective Begin Date Effective End Date WPS Medicare Part B Medicare Part B [id number] Unknown Unknown [employer] Medicare Part B [id number] Unknown Unknown Family history Sister Diagnosis Age [...] Unknown Retired 02/10/[address]: 935178417 Never smoker 02/10/[address]: 185532526 Never drinks alcohol 02/10/2016 Has the patient [...] Instructions Dilantin Extended 100 mg capsule RxNorm: 599457 1 Capsule(s) PO daily -Alternate 300 mg and 400 mg every other day 06/07/2017 No Stop Date Active Bactrim DS 800 mg-160 mg tablet RxNorm: 213966 1 Tablet(s) PO BID 05/02/2017 05/08/2017 Inactive Dilantin Extended 100 mg capsule RxNorm: 293697 1 Capsule(s) PO daily in the afternoon and 2 Capsules PO HS- Will take an additional pill if she has a lot of jerking 04/27/2017 06/06/2017 Inactive Keflex 500 mg capsule RxNorm: 654950 1 Capsule(s) PO TID 201604/23/2017 Inactive dicyclomine 10 mg capsule RxNorm: 755051 1 Capsule(s) PO BID as needed 03/30/2017 05/28/2017 Inactive Senna with Docusate Sodium 8.6 mg-50 mg tablet RxNorm: 926115 1 Tablet(s) PO BID as needed constipation 03/02/20172017 Active Keflex 500 mg capsule RxNorm: 538711 1 Capsule(s) PO TID 201608/20/2016 Inactive Levaquin 500 mg tablet RxNorm: 569360 1 Tablet(s) PO daily 09/201504/22/2016 Inactive ciprofloxacin 500 mg tablet RxNorm: 234080 1 Tablet(s) PO BID 02/10/2016 02/16/2016 Inactive prednisone 10 mg tablet RxNorm: 061171 1 Tablet(s) PO as needed for pain No Start Date Active lamotrigine 150 mg tablet RxNorm: 215160 1 Tablet(s) PO QHS No Start Date Active lamotrigine 100 mg tablet RxNorm: 614263 1 Tablet(s) PO QAM No Start Date Active Prolia 60 mg/mL subcutaneous syringe RxNorm: 440146 1 injection SQ Q6 months No Start Date Active Dilantin Extended 100 mg capsule RxNorm: 571402 Capsule(s) PO TAKES FOUR CAPSULES FOR 2 DAYS, THEN THREE CAPSULES FOR 1 DAY, THEN REPEATS No Start Date 04/26/2017 Inactive Humira 20 mg/0.4 mL subcutaneous syringe kit RxNorm: 879975 1 injection SQ every 2 weeks- Prescribed [...] Ord7 DILANTIN 19.6 UG/ML 05/11/2017 Culture Urine [id number] URINE CULTURE SEE NOTES 05/06/2017 Culture Urine [id number] Continued Results 05/06/2017 Urine Culture Ucult Complete >100,000 col/ml aerobic growth sent to ref lab 05/03/2017 Dilantin Ord7 DILANTIN 12.6 UG/ML 04/27/2017 Calcium Ord79 CALCIUM 9.3 mg/dL 04/19/2017 Dilantin Ord7 DILANTIN 21.6 UG/ML 04/19/2017 Dilantin Ord7 DILANTIN 10.3 UG/ML 04/13/2017 Dilantin Ord7 DILANTIN 21.9 UG/ML 04/07/2017 Comp Metabolic Mgb676 NA 137 mEq/L 03/30/2017 Comp Metabolic Eae817 K 3.7 mEq/L 03/30/2017 Comp Metabolic Xmy137 CL 98 mEq/L 03/30/2017 Comp Metabolic Jba299 CO2 29.0 mEq/L 03/30/2017 Comp Metabolic Dhp020 ANION GAP 14 03/30/2017 Comp Metabolic Lxu190 GLUCOSE 100 mg/dL 03/30/2017 Comp Metabolic Dke787 Creat 0.9 mg/dL 03/30/2017 Comp Metabolic Qwb315 eGFR 88 ml/min/1.73m2 03/30/2017 Comp Metabolic Yag482 BUN 22 mg/dL 03/30/2017 Comp Metabolic Hbf479 B/C Ratio 24.4 Ratio 03/30/2017 Comp Metabolic Wja898 CALCIUM 9.4 mg/dL 03/30/2017 Comp Metabolic Cdo774 ALK PHOS 113 U/L 03/30/2017 Comp Metabolic Vzt513 AST(SGOT) 16 U/L 03/30/2017 Comp Metabolic Pjh841 ALT(SGPT) 7 U/L 03/30/2017 Comp Metabolic Vcj815 BILI T 0.3 mg/dL 03/30/2017 Comp Metabolic Uyp329 ALBUMIN 3.9 g/dL 03/30/2017 Comp Metabolic Luw356 TPRO 8.0 g/dL 03/30/2017 Comp Metabolic Mam936 GLOB 4.1 g/dL 03/30/2017 Comp Metabolic Vkq109 A/G Ratio 0.9 Ratio 03/30/2017 Comp Metabolic Pnp310 Osmo 277 mOsmo 03/30/2017 Lipid Ord30 CHOL 214 mg/dL 03/30/2017 Lipid Ord30 HDL 61.0 mg/dl 03/30/2017 Lipid Ord30 TRIG 130 mg/dL 03/30/2017 Lipid Ord30 LDL 127 mg/dL 03/30/2017 Lipid Ord30 C/HDL 3.5 Ratio 03/30/2017 Dilantin Ord7 DILANTIN 32.5 UG/ML 03/30/2017 Folate Ord36 Folate 16.46 ng/mL 03/30/2017 Tsh Ord6 hTSH II 0.95 uIU/mL 03/30/2017 B12 Uzj885 B12 592.00 pg/ml 03/30/2017 Cbc With Differential [...] 89.3 fl 03/30/2017 Cbc With Differential Ord2 [place]% 23.9 % 03/30/2017 Cbc With Differential Ord2 MCH 30.9 pg 03/30/2017 Cbc With Differential Ord2 MCHC 34.6 pg 03/30/2017 Cbc With Differential Ord2 Eos% 7.3 % 03/30/2017 Cbc With Differential Ord2 Baso% 0.9 % 03/30/2017 Cbc With Differential Ord2 PLT 149 K/ul 03/30/2017 Cbc With Differential Ord2 Neut ABS# 0.30 K/ul 03/30/2017 Cbc With Differential Ord2 RDW 13.3 % 03/30/2017 Cbc With Differential Ord2 Lymph ABS# 0.44 K/ul 03/30/2017 Cbc With Differential Ord2 [place] ABS# 0.3 K/ul 03/30/2017 Cbc With Differential [...] 30.3 pg 08/11/2016 Cbc With Differential Ord2 [place]% 31.7 % 08/11/2016 Cbc With Differential Ord2 [...] 0.59 K/ul 08/11/2016 Cbc With Differential Ord2 [place] ABS# 0.6 K/ul 08/11/2016 Cbc With Differential Ord2 Eos ABS# 0.0 K/ul 08/11/2016 Cbc With Differential Ord2 Baso ABS# 0.0 K/ul 08/11/2016 Dilantin Ord7 DILANTIN 17.2 UG/ML 08/11/2016 Tsh Ord6 hTSH II 0.82 uIU/mL 08/11/2016 Comp Metabolic Hhe486 NA 131 mEq/L 08/11/2016 Comp Metabolic Osn133 K 4.1 mEq/L 08/11/2016 Comp Metabolic Xcm582 CL 93 mEq/L 08/11/2016 Comp Metabolic Xte953 CO2 29.0 mEq/L 08/11/2016 Comp Metabolic Xkq603 ANION GAP 13 08/11/2016 Comp Metabolic Ulc715 GLUCOSE 120 mg/dL 08/11/2016 Comp Metabolic Mab829 Creat 0.8 mg/dL 08/11/2016 Comp Metabolic Cjy784 eGFR 101 ml/min/1.73m2 08/11/2016 Comp Metabolic Ata910 BUN 18 mg/dL 08/11/2016 Comp Metabolic Zmq346 B/C Ratio 22.5 Ratio 08/11/2016 Comp Metabolic Hss299 CALCIUM 9.5 mg/dL 08/11/2016 Comp Metabolic Eli172 ALK PHOS 104 U/L 08/11/2016 Comp Metabolic Pne730 AST(SGOT) 16 U/L 08/11/2016 Comp Metabolic Oti850 ALT(SGPT) 8 U/L 08/11/2016 Comp Metabolic Hnb050 BILI T 0.4 mg/dL 08/11/2016 Comp Metabolic Kvk621 ALBUMIN 3.8 g/dL 08/11/2016 Comp Metabolic Tbj636 TPRO 8.4 g/dL 08/11/2016 Comp Metabolic Wlo309 GLOB 4.6 g/dL 08/11/2016 Comp Metabolic Klm287 A/G Ratio 0.8 Ratio 08/11/2016 Comp Metabolic Tcq066 Osmo 266 mOsmo 08/11/2016 Culture Urine [id number] URINE CULTURE SEE NOTES 04/19/2016 Culture Urine [id number] Continued Results 04/19/2016 Urine Culture Ucult Complete >100,000 col/ml aerobic growth sent to ref lab 04/17/2016 Culture Urine [id number] URINE CULTURE SEE NOTES 02/13/2016 Culture Urine [id number] Continued Results 02/13/2016 Urine Culture Ucult Complete [...] G0439 06/07/2017 URINALYSIS NONAUTO W/O SCOPE CPT-4: 67235 05/02/2017 URINALYSIS NONAUTO W/O SCOPE CPT-4: 48843 04/26/2017 PPPS, SUBSEQ VISIT CPT -4: G0439 06/01/2016 URINALYSIS NONAUTO W/O SCOPE CPT-4: 24045 04/16/2016 URINALYSIS NONAUTO W/O SCOPE CPT-4: 64007 02/10/2016 Vital Signs Date Vital 07/12/2017 Blood Pressure 1: 100/56 Code : 8480-6 BMI: 18.1 Code : 50429-0 Heart Rate 1 : 123 bpm Height: 5'5" SpO2: 99% Weight: 109 lbs 06/07/2017 Blood Pressure 1: 98/68 Code : 8480-6 BMI: 18.1 Code : 47862-0 Heart Rate 1 : 120 bpm Height: 5'5" SpO2: 99% Waist Measure (cm): 80 cm Weight: 109 lbs 05/24/2017 Blood Pressure 1: 104/62 Code : 8480-6 BMI: 18.1 Code : 50304-1 Heart Rate 1 : 121 bpm Height: 5'5" SpO2: 97% Weight: 109 lbs 04/27/2017 Blood Pressure 1: 132/84 Code : 8480-6 BMI: 17.8 Code : 59234-0 Heart Rate 1 : 129 bpm Height: 5'5" SpO2: 99% Weight: 107 lbs 04/13/2017 Blood Pressure 1: 100/66 Code : 8480-6 Heart Rate 1: 120 bpm Height: 5'5" SpO2: 99% Weight: 03/30/2017 Blood Pressure 1: 112/66 Code : 8480-6 BMI: 17.8 Code : 93790-4 Heart Rate 1 : 112 bpm Height: 5'5" SpO2: 98% Weight: 107 lbs 03/02/2017 Blood Pressure 1: 128/78 Code : 8480-6 BMI: 18.1 Code : 72190-1 Heart Rate 1 : 86 bpm Height: 5'5" SpO2: 95% Weight: 109 lbs 08/30/2016 Blood Pressure 1: 102/60 Code : 8480-6 BMI: 18.1 Code : 19339-6 Heart Rate 1 : 135 bpm Height: 5'5" SpO2: 98% Weight: 109 lbs 08/11/2016 Blood Pressure 1: 100/66 Code : 8480-6 BMI: 18.6 Code : 76446-0 Heart Rate 1 : 86 bpm Height: 5'5" SpO2: 94% Weight: 112 lbs 06/01/2016 Blood Pressure 1: 126/80 Code : 8480-6 BMI: 19.0 Code : 38048-6 Heart Rate 1 : 100 bpm Height: 5'5" SpO2: 98% Waist Measure (cm): 64 cm Weight: 114 lbs 04/16/2016 Blood Pressure 1: 124/80 Code : 8480-6 Heart Rate 1: 110 bpm SpO2: 97% 02/10/2016 Blood Pressure 1: 102/64 Code : 8480-6 BMI: 18.3 Code : 76255-5 Heart Rate 1 : 114 bpm Height: [...] Present Encounters Encounter Performer Location Codes Date () 02833 EST. PATIENT, LEVEL III Diagnosis: Other epilepsy, not intractable, without status epilepticus[ICD10: G40.802] Diagnosis: Dysuria[ICD10: R30.0] Diagnosis: Mixed incontinence[ICD10: N39.46] Magali Zepeda MD, [facility] CPT-4: 75601 07/12/2017 ([id number]) 68188 EST. 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 PATIENT, LEVEL III Diagnosis: Other epilepsy, not intractable, without status epilepticus[ICD10: G40.802] Magali Zepeda MD, [facility] CPT-4: 13174 2016 ([id number]) 52059 EST. 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 PATIENT, LEVEL IV Diagnosis: Calculus of gallbladder without cholecystitis without obstruction[ ICD10: K80.20] Diagnosis: Benign paroxysmal vertigo, bilateral[ICD10: H81.13] Diagnosis: Slow transit constipation[ICD10: K59.01] Magali Zepeda MD, [facility] CPT-4: 15930 03/02/2017 ([id number]) 49116 EST. 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 PATIENT, LEVEL IV Diagnosis: Other epilepsy, not intractable, without status epilepticus[ICD10: G40.802] Diagnosis: Low back pain[ICD10: M54.5] Diagnosis: Pressure ulcer of sacral region, stage 1[ICD10: L89.151] Windy Zepeda MD, [facility] CPT-4: 43042 08/11/2016 ([id number]) 10102 EST. PATIENT, LEVEL III Diagnosis: Urinary tract infection, site not specified[ICD10: N39.0] Diagnosis: Slow transit constipation[ICD10: K59.01] Mishel Zepeda MD, [facility] CPT-4: 06225 04/16/2016 ([id number]) OFFICE VISIT, NEW - LEVEL 4 Diagnosis: Other abnormalities of gait and mobility[ICD10: R26.89] Diagnosis: Dysuria[ICD10: R30.0] Diagnosis: Rheumatoid arthritis without rheumatoid factor, multiple sites[ICD10 : M06.09] [facility] CPT-4: 50782 Plan of Care Planned Activity Notes Codes [...] into the urine specimen on accident 07/12/2017 Patient Education: Patient Medication Summary Completed 07/12/2017 Appointment: Mag[facility]eda [facility]: [facility] [place] ([facility] min) Moderate 07/05/2017 Visit Plan: Medicare [...] care surrogate. 06/07/2017 Appointment: Windy Greco WPtel: [facility] [place] [facility] - Annual Wellness Visit 06/07/2017 Patient [...] per week. 05/24/2017 Appointment: Magali Zepeda WPtel: [facility] [place] (15 min) Moderate 05/24/2017 Patient Education: Patient Medication Summary Completed 05/24/2017 Appointment: Magali Zepeda WPtel: [facility] [place] (15 min) Moderate 05/11/2017 Visit Plan: [...] a week) 04/27/2017 Appointment: Magali Zepeda WPtel: [facility] [place] (15 min) Moderate 04/27/2017 Patient Education: Patient [...] monitor symptoms. 04/13/2017 Appointment: Magali Zepeda WPtel: [phone] [facility] [place] (15 min) Moderate 04/13/2017 Patient Education: [...] treatment strategy. 03/30/2017 Appointment: Magali Zepeda WPtel: [phone] [facility] [place] (15 min) Moderate 03/30/2017 Patient Education: [...] for constipation. 03/02/2017 Appointment: [facility]epeda [facility]el[facility] [phone] [facility] [place] (30 min) Complex 03/02/2017 Patient Education: Patient Medication Summary Completed 03/02/2017 Visit Plan: RA and Gait abnormality -continue with current treatments - supportive care Suspect some of her movement abnormalities may be due to her lamotrigine. 08/30/2016 Appointment: Magali Zepeda WPtel: [phone] [facility] (30 min) Complex 08/30/2016 Patient Education: Patient [...] warmth, discharge. 08/11/2016 Appointment: Windy Greco WPtel: [facility] [place]7 [address] (30 min) Complex 08/11/2016 Patient Education: Patient [...] surrogate. 06/01/2016 Appointment: Windy Greco WPtel: [phone] [facility] [facility] - Annual Wellness Visit 06/01/2016 Patient [...] regimen. 04/16/2016 Appointment: Mishel Wilson WPtel: [phone] [facility] [place] [address] (15 min) Moderate 04/16/2016 Patient Education: Patient Medication Summary Completed 04/16/2016 Visit Plan: RA and Gait abnormality - recommended pt to have referral to physical therapy at [facility]. Suspect some of her movement abnormalities may be due to her lamotrigine. 02/10/2016 Appointment: Magali Zepeda WPtel: [facility] [place] [facility] 02/10/2016 Patient Education: Patient [...] have referral to physical therapy at [facility]. Suspect some of her movement [...] her lamotrigine. RECOMMEND [employer]INE: [employer], ALIGN sign release for labs from DR [...]
--- OUTSIDE RECORDS SUMMARY | 2018-04-12 09:57 | XMS REPORT | Continuity of Care Document ---
Author Author [facility] Organization [facility] Address Unknown Phone Unavailable Allergies Active Description Code Type Severity Reaction Onset Reported/Identified Relationship to Patient Clinical Status Yes No Known Drug Allergies [id number] Drug Allergy Unknown N/A 02/09/2010 Medications Medication Packaging Start Date Stop Date Route Dosage Sig Folic Acid TABLET 04/03/2017 ORAL 0.8 MG DAILY DAILY Lamotrigine TABLET 04/03/2017 ORAL 150 MG HS BEDTIME Lamotrigine TABLET 04/03/2017 ORAL 150 MG HS BEDTIME Lamotrigine TABLET 04/03/2017 ORAL 100 MG DAILY DAILY Keflex CAPSULE 04/05/2017 ORAL 500 MG TID THREE TIMES A DAY Acidophilus TAB.CHEW 04/05/2017 ORAL 1 EACH BID TWICE A DAY Meclizine HCl TABLET 04/05/2017 ORAL 25 MG TID THREE TIMES A DAY Dilantin CAPSULE 04/05/2017 ORAL 200 MG DAILY DAILY Prolia DISP.SYRIN 04/10/2018 SUB-Q 60 MG Q 6 MONTHS Phenytoin Sodium Extended CAPSULE 04/10/2018 ORAL 300 MG DAILY DAILY Problems Date Dx Coded Attending Type Code Diagnosis Diagnosed By 05/12/1204 MICHAEL LYNNE MD Ot M06.9 RHEUMATOID ARTHRITIS, UNSPECIFIED 05/12/1204 MICHAEL LYNNE MD Ot R26.9 UNSPECIFIED ABNORMALITIES OF GAIT AND MO 05/12/1358 JAMIE CASAREZ COOKING APPLIANCE REPAIR TECHNICIAN Ot R42 DIZZINESS AND GIDDINESS 05/12/1358 JAMIE CASAREZ COOKING APPLIANCE REPAIR TECHNICIAN Ot R53.1 WEAKNESS 11/26/2012 ANTONIA TALLEY 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 11/26/2012 ANTONIA TALLEY Ot 288.00 NEUTROPENIA, UNSPECIFIED 12/18/2012 JEANE NAGEL APRN Ot 780.4 DIZZINESS AND GIDDINESS 12/18/2012 JEANE NAGEL APRN Ot 780.79 OTH MALAISE FATIGUE 12/18/2012 NAGEL, JEANE A COOKING APPLIANCE REPAIR TECHNICIAN Ot 783.21 LOSS OF WEIGHT 12/18/2012 JEANE NAGEL COOKING APPLIANCE REPAIR TECHNICIAN Ot V57.1 PHYSICAL THERAPY NEC 12/18/2012 SHONA JEANE A COOKING APPLIANCE REPAIR TECHNICIAN Ot V57.21 ENCOUNTER FOR OCCUPATIONAL THERAPY 12/18/2012 NAGELADAMLY Ruma COOKING APPLIANCE REPAIR TECHNICIAN Ot V58.49 OTHER SPECIFIED AFTERCARE FOLLOWING SURG 04/15/2013 MAYANK BOBAN N Ot 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 04/15/2013 MAYANK BOBAN N Ot 288.50 LEUKOCYTOPENIA, UNSPECIFIED 04/15/2013 MAYANK, BOBAN N Ot 345.90 EPILEPSY UNSPEC W/O MENTION INTRACTABLE 04/15/2013 MAYANK, BOBAN N Ot 714.0 RHEUMATOID ARTHRITIS 04/15/2013 MAYANK BOBAN N Ot 780.4 DIZZINESS AND GIDDINESS 04/15/2013 MAYANK, BOBAN N Ot V58.69 OT MED,LT,CURRENT USE 07/31/2013 MAYANK, BOBAN N 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 07/31/2013 MAYANK, BOBAN N Ot 288.00 NEUTROPENIA, UNSPECIFIED 12/09/2013 MAYANK, BOBAN N Ot 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 12/09/2013 MAYANK, BOBAN N Ot 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 12/09/2013 MAYANK, BOBAN N 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 12/09/2013 MAYANK, BOBAN N Ot 288.00 NEUTROPENIA, UNSPECIFIED 12/09/2013 MAYANK, BOBAN N Ot 345.90 EPILEPSY UNSPEC W/O MENTION INTRACTABLE 12/09/2013 MAYANK, BOBAN N Ot 714.0 RHEUMATOID ARTHRITIS 12/09/2013 MAYANK, BOBAN N Ot V58.69 OTH MED,LT,CURRENT USE 04/25/2014 MAYANK, BOBAN N Ot 227.3 04/25/2014 MAYANK, BOBAN N Ot 270.4 04/25/2014 MAYANK, BOBAN N Ot 273.1 04/25/2014 MAYANK, BOBAN N Ot 288.00 04/25/2014 MAYANK, BOBAN N Ot 345.90 04/25/2014 MAYANK, BOBAN N Ot 714.0 04/25/2014 MAYANK, BOBAN N Ot V58.69 05/28/2014 MAYANK, BOBAN N Ot 227.3 05/28/2014 MAYANKANTONIA BANDA N Ot 270.4 05/28/2014 MAYANKANTONIA BANDA N Ot 273.1 05/28/2014 MAYANK, BOBBARAK N Ot 288.00 05/28/2014 MAYANK, BOBAN N Ot 345.90 05/28/2014 MAYANKANTONIA BANDA N Ot 714.0 05/28/2014 ANTONIA TALLYE N Ot V58.69 06/19/2014 ANTONIA TALLEY N Ot 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 06/19/2014 ANTONIA TALLEY N Ot 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 06/19/2014 ANTONIA TALLEY N 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 06/19/2014 MAYANK, BOBBARAK N Ot 288.00 NEUTROPENIA, UNSPECIFIED 06/19/2014 MAYANK BOBBARAK N Ot 345.90 EPILEPSY UNSPEC W/O MENTION INTRACTABLE 06/19/2014 ANTONIA TALLEY N Ot 714.0 RHEUMATOID ARTHRITIS 06/19/2014 MAYANKANTONIA N Ot V58.69 OT MED,LT,CURRENT USE 11/29/2014 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 Ot 288.00 11/29/2014 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 Ot 288.50 11/29/2014 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 Ot 564.00 11/29/2014 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 Ot 714.0 11/29/2014 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 Ot 714.1 11/29/2014 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 Ot 733.90 11/29/2014 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 Ot V58.65 11/29/2014 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 Ot V58.69 04/03/2015 MAYANKBREANAAN N Ot 227.3 04/03/2015 MAYANK BOBBARAK N Ot 270.4 04/03/2015 MAYANK ANTONIA N Ot 273.1 04/03/2015 MAYANK BOBAN N Ot 288.00 04/03/2015 MAYANK, BOBAN N Ot 345.90 04/03/2015 MAYANK, BOBAN N Ot 714.0 04/03/2015 MAYANK, ANTONIA N Ot V58.69 04/24/2015 MAYANK, BOBAN N Ot 227.3 04/24/2015 MAYANK, BOBAN N Ot 270.4 04/24/2015 MAYANK, BOBAN N Ot 273.1 04/24/2015 MAYANK, BOBAN N Ot 288.00 04/24/2015 MAYANK, BOBAN N Ot 345.90 04/24/2015 MAYANK, BOBAN N Ot 714.0 04/24/2015 MAYANK, BOBAN N Ot V58.69 05/21/2015 DANNIE CUEVAS, BRIANNA Rajput Ot G40.909 05/29/2015 MAYANK, BOBAN N Ot 227.3 05/29/2015 MAYANK, BOBAN N Ot 270.4 05/29/2015 MAYANK, BOBAN N Ot 273.1 05/29/2015 MAYANK, BOBAN N Ot 288.00 05/29/2015 MAYANK, BOBAN N Ot 345.90 05/29/2015 MAYANK, BOBAN N Ot 714.0 05/29/2015 MAYANK, BOBAN N Ot V58.69 06/03/2015 JUSTINE BULLOCK APRN Ot K52.9 NONINFECTIVE GASTROENTERITIS AND COLITIS 06/03/2015 JUSTINE BULLOCK APRN Ot 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 INTEST, PART UNSP, W/O PERF 06/03/2015 JUSTINE BULLOCK APRN Ot K80.20 CALCULUS OF GALLBLADDER W/O CHOLECYSTITI 06/18/2015 MAYANK, BOBAN N Ot 227.3 06/18/2015 MAYANK, BOBAN N Ot 270.4 06/18/2015 MAYANK, BOBAN N Ot 273.1 06/18/2015 MAYANK, BOBAN N Ot 288.00 06/18/2015 MAYANK, BOBAN N Ot 345.90 06/18/2015 MAYANK, BOBAN N Ot 714.0 06/18/2015 MAYANK, BOBAN N Ot D72.819 06/18/2015 MAYANK, BOBAN N Ot R30.0 06/18/2015 MAYANK, BOBAN N Ot R39.15 06/18/2015 MAYANK, BOBAN N Ot V58.69 06/18/2015 MAYANK, BOBAN N Ot Z79.899 06/24/2015 JUSTINE BULLOCK APRN Ot R19.7 07/30/2015 MAYANK, BOBAN N Ot D72.819 DECREASED WHITE BLOOD CELL COUNT, UNSPEC 07/30/2015 ANTONIA TALLEY Ot R30.0 DYSURIA 07/30/2015 ANTONIA TALLEY Ot R39.15 URGENCY OF URINATION 07/30/2015 ANTONIA TALLEY Ot Z79.899 OTHER [facility] (CURRENT) DRUG THERAPY 10/31/2015 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 Ot D70.9 NEUTROPENIA, UNSPECIFIED 11/21/2015 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 Ot D70.9 NEUTROPENIA, UNSPECIFIED 11/25/2015 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 Ot D70.9 NEUTROPENIA, UNSPECIFIED 03/12/2016 MICHAEL LYNNE MD Ot M06.9 RHEUMATOID ARTHRITIS, UNSPECIFIED 03/12/2016 MICHAEL LYNNE MD Ot R26.81 UNSTEADINESS ON FEET 03/17/2016 Ot [...] Ot 733.00 OSTEOPOROSIS NOS 03/17/2016 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 Ot 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 03/17/2016 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 Ot 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 03/17/2016 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 Ot 288.50 LEUKOCYTOPENIA, UNSPECIFIED 03/17/2016 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 Ot 345.90 EPILEPSY UNSPEC W/O MENTION INTRACTABLE 03/17/2016 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 Ot 714.0 RHEUMATOID ARTHRITIS 03/17/2016 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 Ot 780.4 DIZZINESS AND GIDDINESS 03/17/2016 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 Ot V58.69 OTH MED,LT,CURRENT USE 03/17/2016 ANTONIA TALLEY Ot 574.10 CHOLELITH W CHOLECYS NEC 03/17/2016 ANTONIA TALLEY Ot 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 03/17/2016 LILIANE CUEVAS, ANDREI Mendez Ot V76.12 OTH SCREEN MAMMO-MALIGN NEOPLASM OF DANNY 03/17/2016 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 Ot 288.00 NEUTROPENIA, UNSPECIFIED 03/17/2016 ROSECAROLE Torres CONTINUOUS PILLOWCASE CUTTER Ot 288.50 LEUKOCYTOPENIA, UNSPECIFIED 03/17/2016 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 Ot 574.10 CHOLELITH W CHOLECYS NEC 03/17/2016 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 Ot 714.0 RHEUMATOID ARTHRITIS 03/17/2016 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 Ot 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 03/17/2016 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 Ot V58.69 OTH MED,LT,CURRENT USE 03/17/2016 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 Ot 288.00 NEUTROPENIA, UNSPECIFIED 03/17/2016 CAROLE ROSE S CONTINUOUS PILLOWCASE CUTTER Ot 288.50 LEUKOCYTOPENIA, UNSPECIFIED 03/17/2016 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 Ot 564.00 UNSPEC CONSTIPATION 03/17/2016 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 Ot 714.0 RHEUMATOID ARTHRITIS 03/17/2016 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 Ot 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 03/17/2016 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 Ot 733.90 BONE CARTILAGE DIS NOS 03/17/2016 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 Ot V58.65 LONG-TERM(CURRENT)USE OF STEROIDS 03/17/2016 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 Ot V58.69 OTH MED,LT,CURRENT USE 03/17/2016 DANNIE CUEVAS, BRIANNA Rajput Ot G40.909 EPILEPSY, UNSP, NOT INTRACTABLE, WITHOUT 03/17/2016 JUSTINE BULLOCK APRN Ot R19.7 DIARRHEA, UNSPECIFIED 03/17/2016 ANTONIA TALLEY Ot 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 03/17/2016 ANTONIA TALLEY Ot 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 03/17/2016 MAYANK, BOBAN N 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 03/17/2016 ANTONIA TALLEY N Ot 288.00 NEUTROPENIA, UNSPECIFIED 03/17/2016 ANTONIA TALLEY N Ot 345.90 EPILEPSY UNSPEC W/O MENTION INTRACTABLE 03/17/2016 ANTONIA TALLEY N Ot 714.0 RHEUMATOID ARTHRITIS 03/17/2016 ANTONIA TALLEY N Ot D72.819 DECREASED WHITE BLOOD CELL COUNT, UNSPEC 03/17/2016 ANTONIA TALLEY N Ot R30.0 DYSURIA 03/17/2016 ANTONIA TALLEY N Ot R39.15 URGENCY OF URINATION 03/17/2016 ANTONIA TALLEY Ot V58.69 OTH MED,LT,CURRENT USE 03/17/2016 ANTONIA TALLEY N Ot Z79.899 OTHER [facility] (CURRENT) DRUG THERAPY 03/17/2016 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 Ot D70.9 NEUTROPENIA, UNSPECIFIED 03/17/2016 GUERA CUEVAS, MICHAEL Hendrix Ot M06.9 RHEUMATOID ARTHRITIS, UNSPECIFIED 03/17/2016 GUERA CUEVAS, MICHAEL A Ot R26.81 UNSTEADINESS ON FEET 03/17/2016 GUERA CUEVAS, MICHAEL A Ot M06.9 RHEUMATOID ARTHRITIS, UNSPECIFIED 03/17/2016 GUERA CUEVAS, MICHAEL A Ot R26.81 UNSTEADINESS ON FEET 04/22/2016 GUERA CUEVAS, MICHAEL A Ot M06.9 RHEUMATOID ARTHRITIS, UNSPECIFIED 04/22/2016 GUERA CUEVAS, MICHAEL A Ot R26.9 UNSPECIFIED ABNORMALITIES OF GAIT AND MO 09/09/2016 JAMIE CASAREZ COOKING APPLIANCE REPAIR TECHNICIAN Ot M54.5 LOW BACK PAIN 09/10/2016 JAMIE CASAREZ COOKING APPLIANCE REPAIR TECHNICIAN Ot M54.5 LOW BACK PAIN 10/31/2016 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 Ot D70.9 NEUTROPENIA, UNSPECIFIED 10/31/2016 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 Ot D70.9 NEUTROPENIA, UNSPECIFIED 10/31/2016 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 Ot D70.9 NEUTROPENIA, UNSPECIFIED 11/05/2016 ANTONIA TALLEY N Ot 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 11/05/2016 ANTONIA TALLEY N Ot 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 11/05/2016 ANTONIA TALLEY N 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 11/05/2016 ANTONIA TALLEY Eugene Ot 288.00 NEUTROPENIA, UNSPECIFIED 11/05/2016 ANTONIA TALLEY Eugene Ot 345.90 EPILEPSY UNSPEC W/O MENTION INTRACTABLE 11/05/2016 ANTONIA TALLEY Eugene Ot 714.0 RHEUMATOID ARTHRITIS 11/05/2016 ANTONIA TALLEY N Ot D72.819 DECREASED WHITE BLOOD CELL COUNT, UNSPEC 11/05/2016 ANTONIA TALLEY Eugene Ot R30.0 DYSURIA 11/05/2016 ANTONIA TALLEY N Ot R39.15 URGENCY OF URINATION 11/05/2016 ANTONIA TALLEY Eugene Ot V58.69 OTH MED,LT,CURRENT USE 11/05/2016 ANTONIA TALLEY N Ot Z79.899 OTHER [facility] (CURRENT) DRUG THERAPY 12/10/2016 ANTONIA TALLEY N Ot D35.2 BENIGN NEOPLASM OF PITUITARY GLAND 12/10/2016 ANTONIA TALLEY N Ot D64.9 ANEMIA, UNSPECIFIED 12/10/2016 ANTONIA TALLEY N Ot D72.819 DECREASED WHITE BLOOD CELL COUNT, UNSPEC 12/10/2016 ANTONIA TALLEY N Ot 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 12/10/2016 ANTONIA TALLEY N Ot M06.9 RHEUMATOID ARTHRITIS, UNSPECIFIED 12/10/2016 MAYANKANTONIA BANDA N Ot R56.9 UNSPECIFIED CONVULSIONS 12/10/2016 ANTONIA TALLEY N Ot 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 12/21/2016 ANTONIA TALLEY N Ot D35.2 BENIGN NEOPLASM OF PITUITARY GLAND 12/21/2016 MAYANK BREANABARAK N Ot D64.9 ANEMIA, UNSPECIFIED 12/21/2016 ANTONIA TALLEY N Ot D72.819 DECREASED WHITE BLOOD CELL COUNT, UNSPEC 12/21/2016 ANTONIA TALLEY N Ot 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 12/21/2016 ANTONIA TALLEY N Ot M06.9 RHEUMATOID ARTHRITIS, UNSPECIFIED 12/21/2016 MAYANKANTONIA N Ot R56.9 UNSPECIFIED CONVULSIONS 12/21/2016 MAYANKANTONIA BANDA N Ot Z79.899 OTHER [facility] (CURRENT) DRUG THERAPY 01/21/2017 MAYANK ANTONIA N Ot D35.2 BENIGN NEOPLASM OF PITUITARY GLAND 01/21/2017 ANTONIA TALLEY N Ot D64.9 ANEMIA, UNSPECIFIED 01/21/2017 ANTONIA TALLEY N Ot D72.819 DECREASED WHITE BLOOD CELL COUNT, UNSPEC 01/21/2017 ANTONIA TALLEY N Ot 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 01/21/2017 ANTONIA TALLEY N Ot M06.9 RHEUMATOID ARTHRITIS, UNSPECIFIED 01/21/2017 MAYANKANTONIA BANDA N Ot R56.9 UNSPECIFIED CONVULSIONS 01/21/2017 ANTONIA TALLEY N Ot 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 02/02/2017 ANTONIA TALLEY N Ot D35.2 BENIGN NEOPLASM OF PITUITARY GLAND 02/02/2017 ANTONIA TALLEY N Ot D64.9 ANEMIA, UNSPECIFIED 02/02/2017 ANTONIA TALLEY N Ot D72.819 DECREASED WHITE BLOOD CELL COUNT, UNSPEC 02/02/2017 ANTONIA TALLEY N Ot 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 02/02/2017 ANTONIA TALLEY N Ot M06.9 RHEUMATOID ARTHRITIS, UNSPECIFIED 02/02/2017 MAYANKANTONIA N Ot R56.9 UNSPECIFIED CONVULSIONS 02/02/2017 ANTONIA TALLEY N Ot 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 02/08/2017 ANTONIA TALLEY N Ot D35.2 BENIGN NEOPLASM OF PITUITARY GLAND 02/08/2017 ANTONIA TALLEY N Ot D64.9 ANEMIA, UNSPECIFIED 02/08/2017 ANTONIA TALLEY N Ot D72.819 DECREASED WHITE BLOOD CELL COUNT, UNSPEC 02/08/2017 ANTONIA TALLEY N Ot 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 02/08/2017 MAYANKANTONIA N Ot M06.9 RHEUMATOID ARTHRITIS, UNSPECIFIED 02/08/2017 MAYANK BOBBARAK N Ot R56.9 UNSPECIFIED CONVULSIONS 02/08/2017 MAYANK BOBAN N Ot Z79.899 OTHER [facility] (CURRENT) DRUG THERAPY 03/04/2017 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 03/04/2017 Ot 714.0 RHEUMATOID ARTHRITIS 03/04/2017 Ot 733.00 OSTEOPOROSIS NOS 03/04/2017 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 Ot 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 03/04/2017 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 Ot 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 03/04/2017 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 Ot 288.50 LEUKOCYTOPENIA, UNSPECIFIED 03/04/2017 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 Ot 345.90 EPILEPSY UNSPEC W/O MENTION INTRACTABLE 03/04/2017 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 Ot 714.0 RHEUMATOID ARTHRITIS 03/04/2017 CAROLE ROSEP Ot 780.4 DIZZINESS AND GIDDINESS 03/04/2017 CAROLE ROSEP Ot V58.69 OTH MED,LT,CURRENT USE 03/04/2017 ANTONIA TALLEY Ot 574.10 CHOLELITH W CHOLECYS NEC 03/04/2017 ANTONIA TALLEY Ot 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 03/04/2017 LILIANE CUEVAS, ANDREI Mendez Ot V76.12 OTH SCREEN MAMMO-MALIGN NEOPLASM OF DANNY 03/04/2017 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 Ot 288.00 NEUTROPENIA, UNSPECIFIED 03/04/2017 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 Ot 288.50 LEUKOCYTOPENIA, UNSPECIFIED 03/04/2017 CAROLE ROSEP Ot 574.10 CHOLELITH W CHOLECYS NEC 03/04/2017 CAROLE ROSEP Ot 714.0 RHEUMATOID ARTHRITIS 03/04/2017 CAROLE ROSEP Ot 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 03/04/2017 CAROLE ROSEP Ot V58.69 OTH MED,LT,CURRENT USE 03/04/2017 CAROLE ROSEP Ot 288.00 NEUTROPENIA, UNSPECIFIED 03/04/2017 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 Ot 288.50 LEUKOCYTOPENIA, UNSPECIFIED 03/04/2017 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 Ot 564.00 UNSPEC CONSTIPATION 03/04/2017 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 Ot 714.0 RHEUMATOID ARTHRITIS 03/04/2017 CAROLE ROSEP Ot 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 03/04/2017 CAROLE ORSEP Ot 733.90 BONE CARTILAGE DIS NOS 03/04/2017 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 Ot V58.65 LONG-TERM(CURRENT)USE OF STEROIDS 03/04/2017 ROSE, HILAH S CONTINUOUS PILLOWCASE CUTTER Ot V58.69 OTH MED,LT,CURRENT USE 03/04/2017 DANNIE CUEVAS, BRIANNA Rajput Ot G40.909 EPILEPSY, UNSP, NOT INTRACTABLE, WITHOUT 03/04/2017 JUSTINE BULLOCK COOKING APPLIANCE REPAIR TECHNICIAN Ot R19.7 DIARRHEA, UNSPECIFIED 03/04/2017 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 Ot D70.9 NEUTROPENIA, UNSPECIFIED 03/04/2017 JAMIE CASAREZ COOKING APPLIANCE REPAIR TECHNICIAN Ot M54.5 LOW BACK PAIN 03/04/2017 ANTONIA TALLEY N Ot D35.2 BENIGN NEOPLASM OF PITUITARY GLAND 03/04/2017 ANTONIA TALLEY N Ot D64.9 ANEMIA, UNSPECIFIED 03/04/2017 ANTONIA TALLEY N Ot D72.819 DECREASED WHITE BLOOD CELL COUNT, UNSPEC 03/04/2017 ANTONIA TALLEY N Ot 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 03/04/2017 ANTONIA TALLEY N Ot M06.9 RHEUMATOID ARTHRITIS, UNSPECIFIED 03/04/2017 ANTONIA TALLEY N Ot R56.9 UNSPECIFIED CONVULSIONS 03/04/2017 ANTONIA TALLEY N Ot Z79.899 OTHER [facility] (CURRENT) DRUG THERAPY 03/15/2017 MICHAEL LYNNE MD Ot R42 DIZZINESS AND GIDDINESS 03/15/2017 MICHAEL LYNNE MD Ot R53.1 WEAKNESS 03/25/2017 MICHAEL LYNNE MD Ot K80.20 CALCULUS OF GALLBLADDER W/O CHOLECYSTITI 04/01/2017 MICHAEL LYNNE MD Ot K80.20 CALCULUS OF GALLBLADDER W/O CHOLECYSTITI 04/05/2017 MICHAEL LYNNE MD Ot E78.00 PURE HYPERCHOLESTEROLEMIA, UNSPECIFIED 04/05/2017 MICHAEL LYNNE MD Ot G40.909 EPILEPSY, UNSP, NOT INTRACTABLE, WITHOUT 04/05/2017 MICHAEL LYNNE MD Ot J44.9 CHRONIC OBSTRUCTIVE PULMONARY DISEASE, U 04/05/2017 MICHAEL LYNNE MD Ot M47.812 SPONDYLOSIS W/O MYELOPATHY OR RADICULOPA 04/05/2017 MICHAEL LYNNE MD Ot M50.31 OTHER CERVICAL DISC DEGENERATION, HIGH 04/05/2017 MICHAEL LYNNE MD Ot S00.512A ABRASION OF ORAL CAVITY, INITIAL ENCOUNT 04/05/2017 MICHAEL LYNNE MD Ot S00.83XA CONTUSION OF OTHER PART OF HEAD, INITIAL 04/05/2017 MICHAEL LYNNE MD Ot W01.0XXA FALL SAME LEV FROM SLIP/TRIP W/O STRIKE 04/05/2017 MICHAEL LYNNE MD Ot Y92.012 BATHROOM OF SINGLE-FAMILY (PRIVATE) HOUS 04/05/2017 MICHAEL LYNNE MD Ot Y99.8 OTHER EXTERNAL CAUSE STATUS 04/05/2017 MICHAEL LYNNE MD Ot Z79.890 HORMONE REPLACEMENT THERAPY 04/05/2017 MICHAEL LYNNE MD Ot 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 04/05/2017 MICHAEL LYNNE MD Ot Z86.79 PERSONAL HISTORY OF OTHER DISEASES OF TH 04/12/2017 MICHAEL LYNNE MD Ot E78.00 PURE HYPERCHOLESTEROLEMIA, UNSPECIFIED 04/12/2017 MICHAEL LYNNE MD Ot G40.909 EPILEPSY, UNSP, NOT INTRACTABLE, WITHOUT 04/12/2017 MICHAEL LYNNE MD Ot J44.9 CHRONIC OBSTRUCTIVE PULMONARY DISEASE, U 04/12/2017 MICHAEL LYNNE MD Ot M47.812 SPONDYLOSIS W/O MYELOPATHY OR RADICULOPA 04/12/2017 MICHAEL LYNNE MD Ot M50.31 OTHER CERVICAL DISC DEGENERATION, HIGH 04/12/2017 MICHAEL LYNNE MD Ot S00.512A ABRASION OF ORAL CAVITY, INITIAL ENCOUNT 04/12/2017 MICHAEL LYNNE MD Ot S00.83XA CONTUSION OF OTHER PART OF HEAD, INITIAL 04/12/2017 MICHAEL LYNNE MD Ot W01.0XXA FALL SAME LEV FROM SLIP/TRIP W/O STRIKE 04/12/2017 MICHAEL LYNNE MD Ot Y92.012 BATHROOM OF SINGLE-FAMILY (PRIVATE) HOUS 04/12/2017 MICHAEL LYNNE MD Ot Y99.8 OTHER EXTERNAL CAUSE STATUS 04/12/2017 MICHAEL LYNNE MD, Ot Z79.890 HORMONE REPLACEMENT THERAPY 04/12/2017 MICHAEL LYNNE MD Ot Z79.899 OTHER [facility] (CURRENT) DRUG THERAPY 04/12/2017 MICHAEL LYNNE MD Ot Z86.79 PERSONAL HISTORY OF OTHER DISEASES OF TH 05/03/2017 GUERA CUEVAS, MICHAEL Hendrix Ot R42 DIZZINESS AND GIDDINESS 05/03/2017 GUERA CUEVAS, MICHAEL Hendrix Ot R53.1 WEAKNESS 05/20/2017 JAMIE CASAREZ COOKING APPLIANCE REPAIR TECHNICIAN Ot R42 DIZZINESS AND GIDDINESS 05/20/2017 JAMIE CASAREZ COOKING APPLIANCE REPAIR TECHNICIAN Ot R53.1 WEAKNESS 07/11/2017 JAMIE CASAREZ COOKING APPLIANCE REPAIR TECHNICIAN Ot R42 DIZZINESS AND GIDDINESS 07/11/2017 JAMIE CASAREZ COOKING APPLIANCE REPAIR TECHNICIAN Ot R53.1 WEAKNESS 07/12/2017 JAMIE CASAREZ Bryant COOKING APPLIANCE REPAIR TECHNICIAN Ot R42 DIZZINESS AND GIDDINESS 07/12/2017 JAMIE CASAREZ Bryant COOKING APPLIANCE REPAIR TECHNICIAN Ot R53.1 WEAKNESS 08/04/2017 JAMIE CASAREZ COOKING APPLIANCE REPAIR TECHNICIAN Ot R42 DIZZINESS AND GIDDINESS 08/04/2017 JAMIE CASAREZ COOKING APPLIANCE REPAIR TECHNICIAN Ot R53.1 WEAKNESS 12/02/2017 MAYANKBREANAAN N Ot D35.2 BENIGN NEOPLASM OF PITUITARY GLAND 12/02/2017 MAYANK, BOBAN N Ot D64.9 ANEMIA, UNSPECIFIED 12/02/2017 MAYANK, BOBAN N Ot D72.819 DECREASED WHITE BLOOD CELL COUNT, UNSPEC 12/02/2017 MAYANK, BOBAN N Ot 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 12/02/2017 MAYANK, BOBAN N Ot M06.9 RHEUMATOID ARTHRITIS, UNSPECIFIED 12/02/2017 MAYANK, BOBAN N Ot R56.9 UNSPECIFIED CONVULSIONS 12/02/2017 MAYANK BOBAN N Ot 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 12/06/2017 MAYANK BOBAN N Ot D35.2 BENIGN NEOPLASM OF PITUITARY GLAND 12/06/2017 MAYANK, BOBAN N Ot D64.9 ANEMIA, UNSPECIFIED 12/06/2017 MAYANK, BOBAN N Ot D72.819 DECREASED WHITE BLOOD CELL COUNT, UNSPEC 12/06/2017 MAYANK, BOBAN N Ot 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 12/06/2017 MAYANK, BOBAN N Ot M06.9 RHEUMATOID ARTHRITIS, UNSPECIFIED 12/06/2017 MAYANK, BOBAN N Ot R56.9 UNSPECIFIED CONVULSIONS 12/06/2017 MAYANK, BOBAN N Ot Z79.899 OTHER [facility] (CURRENT) DRUG THERAPY 02/07/2018 ANTONIA TALLEY Ot D35.2 BENIGN NEOPLASM OF PITUITARY GLAND 02/07/2018 ANTONIA TALLEY Ot D64.9 ANEMIA, UNSPECIFIED 02/07/2018 ANTONIA TALLEY Ot D72.819 DECREASED WHITE BLOOD CELL COUNT, UNSPEC 02/07/2018 ANTONIA TALLEY Ot 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 02/07/2018 ANTONIA TALLEY Ot M06.9 RHEUMATOID ARTHRITIS, UNSPECIFIED 02/07/2018 ANTONIA TALLEY Ot R56.9 UNSPECIFIED CONVULSIONS 02/07/2018 ANTONIA TALLEY Ot 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 Results Test Result Range Complete blood count (CBC) with automated white blood cell (WBC) differential - 04/02/17 22:27 Blood leukocytes automated count (number/volume) 2.6 10*3/uL 4.3-11.0 Blood erythrocytes automated count (number/volume) 4.43 10*6/uL 4.35-5.85 Venous blood hemoglobin measurement (mass/volume) 13.4 g/dL 11.5-16.0 Blood hematocrit (volume fraction) 38 % 35-52 Automated erythrocyte mean corpuscular volume 87 [foz_us] 80-99 Automated erythrocyte mean corpuscular hemoglobin (mass per erythrocyte) 30 pg 25-34 Automated erythrocyte mean corpuscular hemoglobin concentration measurement ( mass/volume) 35 g/dL 32-36 Automated erythrocyte distribution width ratio 13.1 % 10.0-14.5 Automated blood platelet count (count/volume) 171 10*3/uL 130-400 Automated blood platelet mean volume measurement 8.9 [foz_us] 7.4-10.4 Automated blood neutrophils/100 leukocytes 14 % 42-75 Automated blood lymphocytes/100 leukocytes 58 % 12-44 Blood monocytes/100 leukocytes 23 % 0-12 Automated blood eosinophils/100 leukocytes 4 % 0-10 Automated blood basophils/100 leukocytes 2 % 0-10 Blood neutrophils automated count (number/volume) 0.4 10*3 1.8-7.8 Blood lymphocytes automated count (number/volume) 1.5 10*3 1.0-4.0 Blood monocytes automated count (number/volume) 0.6 10*3 0.0-1.0 Automated eosinophil count 0.1 10*3/uL 0.0-0.3 Automated blood basophil count (count/volume) 0.0 10*3/uL 0.0-0.1 Blood manual differential performed detection - 04/02/17 22:27 Blood monocytes/100 leukocytes 19 % NRG Manual blood segmented neutrophils/100 leukocytes 10 % NRG Blood band neutrophils/100 leukocytes 4 % NRG Manual blood lymphocytes/100 leukocytes 52 % NRG Manual eosinophils/100 leukocytes in nose 1 % NRG Manual blood basophils/100 leukocytes 0 % NRG Blood smudge cells detection by light microscopy SLIGHT NRG Blood lymphocytes variant/100 leukocytes 14 % NRG Blood toxic granules detection by light microscopy 1+ NRG Blood rouleaux detection by light microscopy MOD NRG Comprehensive metabolic panel - 04/02/17 22:27 Serum or plasma sodium measurement (moles/volume) 138 mmol/L 135-145 Serum or plasma potassium measurement (moles/volume) 2.9 mmol/L 3.6-5.0 Serum or plasma chloride measurement (moles/volume) 100 mmol/L 98-107 Carbon dioxide 22 mmol/L 21-32 Serum or plasma anion gap determination (moles/volume) 16 mmol/L 5-14 Serum or plasma urea nitrogen measurement (mass/volume) 23 mg/dL 7-18 Serum or plasma creatinine measurement (mass/volume) 0.94 mg/dL 0.60-1.30 Serum or plasma urea nitrogen/creatinine mass ratio 24 NRG Serum or plasma creatinine measurement with calculation of estimated glomerular filtration rate 59 NRG Serum or plasma glucose measurement (mass/volume) 185 mg/dL 70-105 Serum or plasma calcium measurement (mass/volume) 8.8 mg/dL 8.5-10.1 Serum or plasma total bilirubin measurement (mass/volume) 0.5 mg/dL 0.1-1.0 Serum or plasma alkaline phosphatase measurement (enzymatic activity/volume) 117 U/L 40-136 Serum or plasma aspartate aminotransferase measurement (enzymatic activity/ volume) 16 U/L 5-34 Serum or plasma alanine aminotransferase measurement (enzymatic activity/volume ) 9 U/L 0-55 Serum or plasma protein measurement (mass/volume) 7.9 g/dL 6.4-8.2 Serum or plasma albumin measurement (mass/volume) 3.6 g/dL 3.2-4.5 Magnesium - 04/02/17 Magnesium 2.0 mg/dL 1.8-2.4 Serum or plasma creatine kinase measurement (enzymatic activity/volume) - 04/02 Serum or plasma creatine kinase measurement (enzymatic activity/volume) 40 U/L 29-168 PT panel in platelet poor plasma by coagulation assay - 04/02/17 Prothrombin time (PT) in platelet poor plasma by coagulation assay 11.7 s 12.2-14.7 INR in platelet poor plasma or blood by coagulation assay 0.9 0.8-1.4 Activated partial thromboplastin time (aPTT) in platelet poor plasma bycoagulation assay - 04/02/17 Activated partial thromboplastin time (aPTT) in platelet poor plasma bycoagulation assay 27 s 24-35 Serum or plasma lithium measurement (moles/volume) - 04/02/17 BNP level 19.1 pg/mL <100.0 Serum or plasma creatine kinase MB measurement (enzymatic activity/volume) - Serum or plasma creatine kinase MB measurement (enzymatic activity/volume) 1.7 ng/mL <6.6 Serum or plasma thyrotropin measurement by detection limit <=0.05 miu/l (units/ volume) - 04/02/17 Serum or plasma thyrotropin measurement by detection limit <=0.05 miu/l (units/ volume) 1.97 u[iU]/mL 0.35-4.94 Serum or plasma troponin i.cardiac measurement (mass/volume) - 04/02/17 Serum or plasma troponin i.cardiac measurement (mass/volume) < ng/ mL <0.30 Serum or plasma phenytoin measurement (mass/volume) - 04/02/17 Serum or plasma phenytoin measurement (mass/volume) 8.9 ug/mL 10.0-20.0 Serum or plasma thyrotropin measurement by detection limit <=0.05 miu/l (units/ volume) - 04/02/17 Serum or plasma thyrotropin measurement by detection limit <=0.05 miu/l (units/ volume) 1.97 u[iU]/mL 0.35-4.94 Serum or plasma phenytoin measurement (mass/volume) - 04/02/17 22:27 Serum or plasma phenytoin measurement (mass/volume) 8.9 ug/mL 10.0-20.0 Valproic acid - 04/02/17 22:27 Valproic acid < ug/mL 50.0-100.0 Complete urinalysis with reflex to culture - 04/03/17 01:25 Urine color determination YELLOW NRG Urine clarity determination SLIGHTLY CLOUDY NRG Urine pH measurement by test strip 7 5-9 Specific gravity of urine by test strip 1.010 1.016- 1.022 Urine protein assay by test strip, semi-quantitative 1+ NEGATIVE Urine glucose detection by automated test strip NEGATIVE NEGATIVE Erythrocytes detection in urine sediment by light microscopy 2+ NEGATIVE Urine ketones detection by automated test strip NEGATIVE NEGATIVE Urine nitrite detection by test strip POSITIVE NEGATIVE Urine total bilirubin detection by test strip NEGATIVE NEGATIVE Urine urobilinogen measurement by automated test strip (mass/volume) NORMAL NORMAL Urine leukocyte esterase detection by dipstick 3+ NEGATIVE Automated urine sediment erythrocyte count by microscopy (number/high power field) NONE NRG Automated urine sediment leukocyte count by microscopy (number/high power field ) [HPF] NRG Bacteria detection in urine sediment by light microscopy LARGE NRG Crystals detection in urine sediment by light microscopy NONE NRG Casts detection in urine sediment by light microscopy NONE NRG Mucus detection in urine sediment by light microscopy NEGATIVE NRG Complete urinalysis with reflex to culture YES NRG Bacterial urine culture - 04/03/17 01:25 Bacterial urine culture [id number] NRG COLONY COUNT >100,000/ML NRG FTX;REPORTABLE SENSITIIVITY REPORTED AT 04-04-17 NR FREE TEXT ENTRY 3 MIXED GRAM POSITIVE EDDA <10,000/ML NR Bacterial susceptibility panel - 04/03/17 01:25 Gentamicin susceptibility test by minimum inhibitory concentration < = NRG Trimethoprim/sulfamethoxazole susceptibility test by minimum inhibitoryconcentration <= NRG Ampicillin susceptibility test by minimum inhibitory concentration R NRG Tobramycin susceptibility test by minimum inhibitory concentration < = NRG Cefazolin susceptibility test by minimum inhibitory concentration < = NRG Ceftriaxone susceptibility test by minimum inhibitory concentration <= NRG Ampicillin/sulbactam susceptibility test by minimum inhibitory concentration 4 NRG Piperacillin/tazobactam susceptibility test by minimum inhibitory concentration <= NRG Ciprofloxacin susceptibility test by minimum inhibitory concentration <= NRG Meropenem susceptibility test by minimum inhibitory concentration < = NRG Nitrofurantoin susceptibility test by minimum inhibitory concentration 32 NRG Aztreonam susceptibility test by minimum inhibitory concentration < = NRG Extended spectrum beta lactamase (ESBL) producing bacteria susceptibility test by minimum inhibitory concentration - NRG Methicillin resistant Staphylococcus aureus (MRSA) screening culture - 01:25 Methicillin resistant Staphylococcus aureus (MRSA) screening culture NEG NRG Complete blood count (CBC) with automated white blood cell (WBC) differential - 04/03/17 04:02 Blood leukocytes automated count (number/volume) 1.9 10*3/uL 4.3-11.0 Blood erythrocytes automated count (number/volume) 4.06 10*6/uL 4.35-5.85 Venous blood hemoglobin measurement (mass/volume) 12.2 g/dL 11.5-16.0 Blood hematocrit (volume fraction) 36 % 35-52 Automated erythrocyte mean corpuscular volume 88 [foz_us] 80-99 Automated erythrocyte mean corpuscular hemoglobin (mass per erythrocyte) 30 pg 25-34 Automated erythrocyte mean corpuscular hemoglobin concentration measurement ( mass/volume) 34 g/dL 32-36 Automated erythrocyte distribution width ratio 13.0 % 10.0-14.5 Automated blood platelet count (count/volume) 144 10*3/uL 130-400 Automated blood platelet mean volume measurement 9.0 [foz_us] 7.4-10.4 Automated blood neutrophils/100 leukocytes 34 % 42-75 Automated blood lymphocytes/100 leukocytes 40 % 12-44 Blood monocytes/100 leukocytes 24 % 0-12 Automated blood eosinophils/100 leukocytes 2 % 0-10 Automated blood basophils/100 leukocytes 1 % 0-10 Blood neutrophils automated count (number/volume) 0.6 10*3 1.8-7.8 Blood lymphocytes automated count (number/volume) 0.8 10*3 1.0-4.0 Blood monocytes automated count (number/volume) 0.5 10*3 0.0-1.0 Automated eosinophil count 0.0 10*3/uL 0.0-0.3 Automated blood basophil count (count/volume) 0.0 10*3/uL 0.0-0.1 Comprehensive metabolic panel - 04/03/17 04:02 Serum or plasma sodium measurement (moles/volume) 136 mmol/L 135-145 Serum or plasma potassium measurement (moles/volume) 3.8 mmol/L 3.6-5.0 Serum or plasma chloride measurement (moles/volume) 102 mmol/L 98-107 Carbon dioxide 24 mmol/L 21-32 Serum or plasma anion gap determination (moles/volume) 10 mmol/L 5-14 Serum or plasma urea nitrogen measurement (mass/volume) 20 mg/dL 7-18 Serum or plasma creatinine measurement (mass/volume) 0.84 mg/dL 0.60-1.30 Serum or plasma urea nitrogen/creatinine mass ratio 24 NRG Serum or plasma creatinine measurement with calculation of estimated glomerular filtration rate > NRG Serum or plasma glucose measurement (mass/volume) 122 mg/dL 70-105 Serum or plasma calcium measurement (mass/volume) 8.6 mg/dL 8.5-10.1 Serum or plasma total bilirubin measurement (mass/volume) 0.3 mg/dL 0.1-1.0 Serum or plasma alkaline phosphatase measurement (enzymatic activity/volume) 110 U/L 40-136 Serum or plasma aspartate aminotransferase measurement (enzymatic activity/ volume) 18 U/L 5-34 Serum or plasma alanine aminotransferase measurement (enzymatic activity/volume ) 9 U/L 0-55 Serum or plasma protein measurement (mass/volume) 7.7 g/dL 6.4-8.2 Serum or plasma albumin measurement (mass/volume) 3.4 g/dL 3.2-4.5 Serum or plasma phosphate measurement (mass/volume) - 04/03/17 04:02 Serum or plasma phosphate measurement (mass/volume) 3.7 mg/dL 2.3-4.7 Magnesium - 04/03/17 04:02 Magnesium 2.1 mg/dL 1.8-2.4 Serum or plasma phenytoin measurement (mass/volume) - 04/03/17 13:59 Serum or plasma phenytoin measurement (mass/volume) 38.2 ug/mL 10.0-20.0 Complete blood count (CBC) with automated white blood cell (WBC) differential - 04/04/17 05:00 Blood leukocytes automated count (number/volume) 1.6 10*3/uL 4.3-11.0 Blood erythrocytes automated count (number/volume) 3.59 10*6/uL 4.35-5.85 Venous blood hemoglobin measurement (mass/volume) 10.7 g/dL 11.5-16.0 Blood hematocrit (volume fraction) 32 % 35-52 Automated erythrocyte mean corpuscular volume 88 [foz_us] 80-99 Automated erythrocyte mean corpuscular hemoglobin (mass per erythrocyte) 30 pg 25-34 Automated erythrocyte mean corpuscular hemoglobin concentration measurement ( mass/volume) 34 g/dL 32-36 Automated erythrocyte distribution width ratio 12.9 % 10.0-14.5 Automated blood platelet count (count/volume) 135 10*3/uL 130-400 Automated blood platelet mean volume measurement 8.8 [foz_us] 7.4-10.4 Automated blood neutrophils/100 leukocytes 19 % 42-75 Automated blood lymphocytes/100 leukocytes 50 % 12-44 Blood monocytes/100 leukocytes 28 % 0-12 Automated blood eosinophils/100 leukocytes 2 % 0-10 Automated blood basophils/100 leukocytes 1 % 0-10 Blood neutrophils automated count (number/volume) 0.3 10*3 1.8-7.8 Blood lymphocytes automated count (number/volume) 0.8 10*3 1.0-4.0 Blood monocytes automated count (number/volume) 0.5 10*3 0.0-1.0 Automated eosinophil count 0.0 10*3/uL 0.0-0.3 Automated blood basophil count (count/volume) 0.0 10*3/uL 0.0-0.1 Whole blood basic metabolic panel - 04/04/17 05:00 Serum or plasma sodium measurement (moles/volume) 137 mmol/L 135-145 Serum or plasma potassium measurement (moles/volume) 3.4 mmol/L 3.6-5.0 Serum or plasma chloride measurement (moles/volume) 103 mmol/L 98-107 Carbon dioxide 28 mmol/L 21-32 Serum or plasma anion gap determination (moles/volume) 6 mmol/L 5-14 Serum or plasma urea nitrogen measurement (mass/volume) 11 mg/dL 7-18 Serum or plasma creatinine measurement (mass/volume) 0.72 mg/dL 0.60-1.30 Serum or plasma urea nitrogen/creatinine mass ratio 15 NRG Serum or plasma creatinine measurement with calculation of estimated glomerular filtration rate > NRG Serum or plasma glucose measurement (mass/volume) 108 mg/dL 70-105 Serum or plasma calcium measurement (mass/volume) 8.4 mg/dL 8.5-10.1 Serum or plasma phosphate measurement (mass/volume) - 04/04/17 05:00 Serum or plasma phosphate measurement (mass/volume) 2.9 mg/dL 2.3-4.7 Magnesium - 04/04/17 05:00 Magnesium 1.9 mg/dL 1.8-2.4 Serum or plasma phenytoin measurement (mass/volume) - 04/04/17 05:00 Serum or plasma phenytoin measurement (mass/volume) 30.1 ug/mL 10.0-20.0 Complete blood count (CBC) with automated white blood cell (WBC) differential - 04/05/17 05:32 Blood leukocytes automated count (number/volume) 1.4 10*3/uL 4.3-11.0 Blood erythrocytes automated count (number/volume) 3.68 10*6/uL 4.35-5.85 Venous blood hemoglobin measurement (mass/volume) 10.9 g/dL 11.5-16.0 Blood hematocrit (volume fraction) 32 % 35-52 Automated erythrocyte mean corpuscular volume 87 [foz_us] 80-99 Automated erythrocyte mean corpuscular hemoglobin (mass per erythrocyte) 30 pg 25-34 Automated erythrocyte mean corpuscular hemoglobin concentration measurement ( mass/volume) 34 g/dL 32-36 Automated erythrocyte distribution width ratio 12.8 % 10.0-14.5 Automated blood platelet count (count/volume) 140 10*3/uL 130-400 Automated blood platelet mean volume measurement 9.0 [foz_us] 7.4-10.4 Automated blood neutrophils/100 leukocytes 17 % 42-75 Automated blood lymphocytes/100 leukocytes 56 % 12-44 Blood monocytes/100 leukocytes 26 % 0-12 Automated blood eosinophils/100 leukocytes 1 % 0-10 Automated blood basophils/100 leukocytes 1 % 0-10 Blood neutrophils automated count (number/volume) 0.2 10*3 1.8-7.8 Blood lymphocytes automated count (number/volume) 0.8 10*3 1.0-4.0 Blood monocytes automated count (number/volume) 0.4 10*3 0.0-1.0 Automated eosinophil count 0.0 10*3/uL 0.0-0.3 Automated blood basophil count (count/volume) 0.0 10*3/uL 0.0-0.1 Whole blood basic metabolic panel - 04/05/17 05:32 Serum or plasma sodium measurement (moles/volume) 137 mmol/L 135-145 Serum or plasma potassium measurement (moles/volume) 3.0 mmol/L 3.6-5.0 Serum or plasma chloride measurement (moles/volume) 103 mmol/L 98-107 Carbon dioxide 25 mmol/L 21-32 Serum or plasma anion gap determination (moles/volume) 9 mmol/L 5-14 Serum or plasma urea nitrogen measurement (mass/volume) 11 mg/dL 7-18 Serum or plasma creatinine measurement (mass/volume) 0.71 mg/dL 0.60-1.30 Serum or plasma urea nitrogen/creatinine mass ratio 15 NRG Serum or plasma creatinine measurement with calculation of estimated glomerular filtration rate > NRG Serum or plasma glucose measurement (mass/volume) 101 mg/dL 70-105 Serum or plasma calcium measurement (mass/volume) 8.7 mg/dL 8.5-10.1 Serum or plasma phenytoin measurement (mass/volume) - 04/05/17 05:32 Serum or plasma phenytoin measurement (mass/volume) 25.7 ug/mL 10.0-20.0 Lamotrigine level - 04/05/17 05:32 Lamotrigine level 3.1 % 2.5-15.0 Encounters ACCT No. Visit Date/Time Discharge Status Pt. Type Provider Facility Loc./Unit Complaint [id number] 04/06/2018 06:11:00 04/06/2018 23:59:59 CLS Outpatient CATIE ARMSTRONG MD [facility] PREOP COLONOSCOPY [id number] 02/08/2018 00:09:00 02/08/2018 23:59:59 CLS Preadmit ANTONIA TALELY [facility] ONC [id number] 11/09/2017 09:53:00 02/07/2018 00:01:00 DIS Outpatient ANTONIA TALLEY [facility] ONC [id number] 06/17/2017 14:39:00 08/08/2017 13:59:00 DIS Outpatient JAMIE CASAREZ APRN [facility] REHAB VERTIGO; WEAKNESS [id number] 03/29/2017 14:31:00 05/03/2017 11:39:00 DIS Outpatient MICHAEL LYNNE MD [facility] REHAB VERTIGO;WEAKNESS [id number] 04/02/2017 22:19:00 04/05/2017 13:05:00 DIS Inpatient MICHAEL LYNNE MD [facility] 4TH SEIZURE DISORDER; HEAD/ FACIAL CONTUSIONS [id number] 03/04/2017 08:23:00 03/04/2017 23:59:59 CLS Outpatient MICHAEL LYNNE MD [facility] RAD GALLSTONES [id number] 11/04/2016 09:24:00 02/02/2017 00:01:00 DIS Outpatient ANTONIA TALLEY [facility] ONC [id number] 08/11/2016 14:27:00 08/11/2016 23:59:59 CLS Outpatient JAMIE CASAREZ APRN [facility] RAD LOW BACK/BUTTOCKS PAIN [id number] 04/22/2016 09:00:00 04/22/2016 12:05:00 DIS Outpatient MICHAEL LYNNE MD [facility] REHAB GAIT INSTABILITY; RA [id number] 03/11/2016 11:07:00 03/12/2016 17:00:00 DIS Outpatient MICHAEL LYNNE MD [facility] REHAB GAIT INSTABILITY; RA [id number] 10/30/2015 14:20:00 10/30/2015 23:59:59 CLS Outpatient 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 [facility] ONC [id number] 05/01/2015 09:25:00 07/30/2015 00:01:00 DIS Outpatient ANTONIA TALLEY [facility] ONC [id number] 06/04/2015 09:53:00 06/04/2015 23:59:59 CLS Outpatient JUSTINE BULLOCK APRN [facility] LAB DIARRHEA [id number] 06/03/2015 10:37:00 06/03/2015 14:59:00 DIS Emergency JUSTINE BULLOCK APRN [facility] ER DIARRHEA [id number] 05/01/2015 10:05:00 05/01/2015 23:59:59 CLS Outpatient DANNIE CUEVAS, BRIANNA Rajput [facility] LAB [id number] 09/20/2014 12:42:00 09/20/2014 23:59:59 CLS Outpatient 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 [facility] ONC [id number] 03/21/2014 13:00:00 06/19/2014 00:01:00 DIS Outpatient ANTONIA TALLEY [facility] ONC [id number] 12/11/2013 14:25:00 12/11/2013 23:59:59 CLS Outpatient 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 [facility] ONC [id number] 09/10/2013 10:22:00 12/09/2013 00:01:00 DIS Outpatient ANTONIA TALLEY [facility] ONC [id number] 12/04/2013 07:26:00 12/04/2013 23:59:59 CLS Outpatient ANTONIA TALLEY [facility] RAD SFLT SYNDROME [id number] 11/29/2013 10:40:00 11/29/2013 23:59:59 CLS Outpatient LILIANE CUEVAS, ANDREI Mendez [facility] RAD SCREENING [id number] 05/02/2013 13:07:00 07/31/2013 00:01:00 DIS Outpatient ANTONIA TALLEY [facility] ONC [id number] 04/30/2013 14:22:00 04/30/2013 23:59:59 CLS Outpatient CAROLE ROSE [facility] ONC [id number] 01/15/2013 12:46:00 04/15/2013 00:01:00 DIS Outpatient ANTONIA TALLEY [facility] ONC [id number] 11/28/2012 09:00:00 12/18/2012 00:01:00 DIS Outpatient JEANE NAGEL APRN [facility] REHAB S/P BRAIN SURGERY [id number] 10/26/2012 11:19:00 11/26/2012 00:01:00 DIS Outpatient ANTONIA TALLEY [facility] ONC [id number] 04/12/2018 12:30:00 PEN Preadmit CATIE ARMSTRONG MD [facility] SDC GALLSTONES [id number] 04/12/2018 04:59:47 Document Registration [id number] 04/11/2018 04:59:47 Document Registration [id number] 04/10/2018 10:45:00 PEN Preadmit CATIE ARMSTRONG MD [facility] ENDO SCREENING [id number] 04/10/2018 04:59:48 Document Registration [id number] 04/09/2018 04:59:49 Document Registration [id number] 04/08/2018 04:59:48 Document Registration [id number] 04/07/2018 04:59:48 Document Registration [id number] 04/06/2018 04:59:47 Document Registration [id number] 04/05/2018 04:59:47 Document Registration [id number] 04/04/2018 04:59:47 Document Registration [id number] 04/04/2018 04:59:46 Document Registration [id number] 04/03/2018 04:59:47 Document Registration [id number] 04/02/2018 04:59:48 Document Registration [id number] 04/01/2018 04:59:47 Document Registration [id number] 03/30/2018 04:59:48 Document Registration [id number] 03/29/2018 04:59:48 Document Registration [id number] 03/28/2018 04:59:48 Document Registration [id number] 03/26/2018 04:59:48 Document Registration [id number] 03/25/2018 04:59:48 Document Registration [id number] 03/24/2018 04:59:49 Document Registration [id number] 03/23/2018 04:59:48 Document Registration [id number] 03/22/2018 04:59:48 Document Registration [id number] 03/21/2018 04:59:48 Document Registration [id number] 03/20/2018 04:59:48 Document Registration [id number] 03/19/2018 04:59:49 Document Registration [id number] 03/18/2018 04:59:49 Document Registration [id number] 03/17/2018 04:59:49 Document Registration [id number] 03/16/2018 04:59:49 Document Registration [id number] 03/15/2018 04:59:48 Document Registration [id number] 03/14/2018 04:59:49 Document Registration [id number] 03/13/2018 04:59:48 Document Registration [id number] 03/12/2018 04:59:49 Document Registration [id number] 03/11/2018 04:59:49 Document Registration [id number] 03/10/2018 04:59:48 Document Registration [id number] 03/09/2018 04:59:50 Document Registration [id number] 03/08/2018 04:59:46 Document Registration [id number] 03/07/2018 04:59:46 Document Registration [id number] 03/06/2018 04:59:46 Document Registration [id number] 03/05/2018 04:59:51 Document Registration [id number] 03/04/2018 04:59:46 Document Registration [id number] 03/03/2018 04:59:46 Document Registration [id number] 03/02/2018 04:59:46 Document Registration [id number] 03/01/2018 04:59:46 Document Registration [id number] 02/28/2018 04:59:46 Document Registration [id number] 02/26/2018 04:59:47 Document Registration [id number] 02/25/2018 04:59:47 Document Registration [id number] 02/24/2018 04:59:47 Document Registration [id number] 02/23/2018 04:59:48 Document Registration [id number] 02/22/2018 04:59:47 Document Registration [id number] 02/20/2018 04:59:47 Document Registration [id number] 02/19/2018 04:59:47 Document Registration [id number] 02/18/2018 04:59:49 Document Registration [id number] 02/16/2018 04:59:48 Document Registration [id number] 02/15/2018 04:59:48 Document Registration [id number] 02/14/2018 04:59:49 Document Registration [id number] 02/13/2018 04:59:50 Document Registration [id number] 02/12/2018 04:59:49 Document Registration [id number] 02/11/2018 04:59:49 Document Registration [id number] 02/10/2018 04:59:49 Document Registration [id number] 02/09/2018 04:59:50 Document Registration [id number] 02/08/2018 04:59:34 Document Registration [id number] 02/07/2018 04:59:35 Document Registration [id number] 02/06/2018 04:59:34 Document Registration [id number] 02/05/2018 04:59:34 Document Registration [id number] 02/04/2018 04:59:35 Document Registration [id number] 02/03/2018 04:59:34 Document Registration [id number] 01/23/2018 04:59:45 Document Registration [id number] 01/22/2018 04:59:46 Document Registration [id number] 01/21/2018 04:59:47 Document Registration [id number] 01/20/2018 04:59:44 Document Registration [id number] 01/19/2018 04:59:49 Document Registration [id number] 01/17/2018 04:59:27 Document Registration [id number] 01/16/2018 04:59:28 Document Registration [id number] 01/15/2018 04:59:30 Document Registration [id number] 01/14/2018 04:59:30 Document Registration [id number] 01/13/2018 04:59:27 Document Registration [id number] 01/12/2018 04:59:32 Document Registration [id number] 01/11/2018 04:59:33 Document Registration [id number] 01/10/2018 04:59:34 Document Registration [id number] 01/09/2018 04:59:36 Document Registration [id number] 01/08/2018 04:59:36 Document Registration [id number] 01/07/2018 04:59:37 Document Registration [id number] 01/06/2018 04:59:38 Document Registration [id number] 01/05/2018 04:59:39 Document Registration [id number] 01/04/2018 04:59:40 Document Registration [id number] 01/03/2018 04:59:41 Document Registration [id number] 01/02/2018 04:59:42 Document Registration [id number] 01/01/2018 04:59:39 Document Registration [id number] 12/31/2017 04:59:44 Document Registration [id number] 12/30/2017 04:59:45 Document Registration [id number] 12/29/2017 04:59:46 Document Registration [id number] 12/28/2017 04:59:47 Document Registration [id number] 12/27/2017 04:59:48 Document Registration [id number] 12/26/2017 04:59:44 Document Registration [id number] 12/25/2017 04:59:48 Document Registration [id number] 12/24/2017 04:59:46 Document Registration [id number] 12/23/2017 04:59:50 Document Registration [id number] 12/22/2017 04:59:49 Document Registration [id number] 12/21/2017 04:59:34 Document Registration [id number] 12/20/2017 04:59:37 Document Registration [id number] 12/19/2017 04:59:38 Document Registration [id number] 12/18/2017 04:59:38 Document Registration [id number] 12/17/2017 04:59:35 Document Registration [id number] 12/16/2017 04:59:39 Document Registration [id number] 12/15/2017 04:59:39 Document Registration [id number] 12/14/2017 04:59:40 Document Registration [id number] 12/13/2017 04:59:39 Document Registration [id number] 12/12/2017 04:59:40 Document Registration [id number] 12/11/2017 04:59:40 Document Registration [id number] 12/10/2017 04:59:40 Document Registration [id number] 12/09/2017 04:59:41 Document Registration [id number] 12/08/2017 04:59:41 Document Registration [id number] 12/07/2017 04:59:42 Document Registration [id number] 12/06/2017 04:59:42 Document Registration [id number] 12/04/2017 04:59:42 Document Registration [id number] 12/03/2017 04:59:43 Document Registration [id number] 12/02/2017 04:59:43 Document Registration [id number] 12/01/2017 04:59:43 Document Registration [id number] 11/30/2017 04:59:43 Document Registration [id number] 11/29/2017 04:59:44 Document Registration [id number] 11/28/2017 04:59:44 Document Registration [id number] 11/27/2017 04:59:44 Document Registration [id number] 11/26/2017 04:59:44 Document Registration [id number] 11/25/2017 04:59:44 Document Registration [id number] 11/24/2017 04:59:45 Document Registration [id number] 11/23/2017 04:59:45 Document Registration [id number] 11/22/2017 04:59:46 Document Registration [id number] 11/21/2017 04:59:42 Document Registration [id number] 11/20/2017 04:59:46 Document Registration [id number] 11/19/2017 04:59:47 Document Registration [id number] 11/18/2017 04:59:46 Document Registration [id number] 11/17/2017 04:59:48 Document Registration [id number] 11/17/2017 04:59:47 Document Registration [id number] 11/16/2017 04:59:47 Document Registration [id number] 11/15/2017 04:59:48 Document Registration [id number] 11/14/2017 04:59:47 Document Registration [id number] 11/13/2017 04:59:48 Document Registration [id number] 11/12/2017 04:59:49 Document Registration [id number] 11/11/2017 04:59:48 Document Registration [id number] 11/10/2017 04:59:49 Document Registration [id number] 11/09/2017 04:59:43 Document Registration [id number] 11/08/2017 04:59:43 Document Registration [id number] 11/07/2017 04:59:43 Document Registration [id number] 11/06/2017 04:59:44 Document Registration [id number] 11/05/2017 04:59:44 Document Registration [id number] 11/04/2017 04:59:44 Document Registration [id number] 11/03/2017 04:59:45 Document Registration [id number] 11/02/2017 04:59:45 Document Registration [id number] 11/01/2017 04:59:46 Document Registration [id number] 11/01/2017 04:59:45 Document Registration [id number] 10/31/2017 04:59:45 Document Registration [id number] 10/30/2017 04:59:46 Document Registration [id number] 10/29/2017 04:59:46 Document Registration [id number] 10/28/2017 04:59:47 Document Registration [id number] 10/27/2017 04:59:47 Document Registration [id number] 10/26/2017 04:59:47 Document Registration [id number] 10/25/2017 04:59:47 Document Registration [id number] 10/24/2017 04:59:44 Document Registration [id number] 10/23/2017 04:59:48 Document Registration [id number] 10/22/2017 04:59:45 Document Registration [id number] 10/21/2017 04:59:50 Document Registration [id number] 10/20/2017 04:59:50 Document Registration [id number] 10/19/2017 04:59:43 Document Registration [id number] 10/18/2017 04:59:40 Document Registration [id number] 10/17/2017 04:59:43 Document Registration [id number] 10/16/2017 04:59:45 Document Registration [id number] 10/15/2017 04:59:45 Document Registration [id number] 10/14/2017 04:59:46 Document Registration [id number] 10/13/2017 04:59:42 Document Registration [id number] 10/12/2017 04:59:45 Document Registration [id number] 10/11/2017 04:59:46 Document Registration [id number] 10/10/2017 04:59:46 Document Registration [id number] 10/09/2017 04:59:46 Document Registration [id number] 10/08/2017 04:59:47 Document Registration [id number] 10/07/2017 04:59:47 Document Registration [id number] 10/06/2017 04:59:44 Document Registration [id number] 10/05/2017 04:59:47 Document Registration [id number] 10/04/2017 04:59:48 Document Registration [id number] 10/03/2017 04:59:48 Document Registration [id number] 10/02/2017 04:59:48 Document Registration [id number] 10/01/2017 04:59:45 Document Registration [id number] 09/30/2017 04:59:45 Document Registration [id number] 09/29/2017 04:59:49 Document Registration [id number] 09/28/2017 04:59:44 Document Registration [id number] 09/27/2017 04:59:44 Document Registration [id number] 09/26/2017 04:59:45 Document Registration [id number] 09/25/2017 04:59:45 Document Registration [id number] 09/24/2017 04:59:46 Document Registration [id number] 09/23/2017 04:59:45 Document Registration [id number] 09/22/2017 04:59:45 Document Registration [id number] 09/21/2017 04:59:46 Document Registration [id number] 09/20/2017 04:59:46 Document Registration [id number] 09/19/2017 04:59:46 Document Registration [id number] 09/18/2017 04:59:46 Document Registration [id number] 09/17/2017 04:59:47 Document Registration [id number] 09/16/2017 04:59:44 Document Registration [id number] 09/15/2017 04:59:47 Document Registration [id number] 09/14/2017 04:59:48 Document Registration [id number] 09/13/2017 04:59:45 Document Registration [id number] 09/12/2017 04:59:49 Document Registration [id number] 09/11/2017 04:59:49 Document Registration [id number] 09/10/2017 04:59:49 Document Registration [id number] 09/09/2017 04:59:46 Document Registration [id number] 09/08/2017 04:59:46 Document Registration [id number] 09/07/2017 04:59:47 Document Registration [id number] 09/06/2017 04:59:43 Document Registration [id number] 09/05/2017 04:59:46 Document Registration [id number] 09/04/2017 04:59:47 Document Registration [id number] 09/03/2017 04:59:48 Document Registration [id number] 09/02/2017 04:59:47 Document Registration [id number] 09/01/2017 04:59:44 Document Registration [id number] 08/31/2017 04:59:44 Document Registration [id number] 08/30/2017 04:59:49 Document Registration [id number] 08/30/2017 04:59:48 Document Registration [id number] 08/29/2017 04:59:45 Document Registration [id number] 08/28/2017 04:59:45 Document Registration [id number] 08/27/2017 04:59:49 Document Registration [id number] 08/26/2017 04:59:50 Document Registration [id number] 08/25/2017 04:59:46 Document Registration [id number] 08/24/2017 04:59:49 Document Registration [id number] 08/24/2017 04:59:48 Document Registration [id number] 08/23/2017 04:59:45 Document Registration [id number] 08/22/2017 04:59:46 Document Registration [id number] 08/21/2017 04:59:50 Document Registration [id number] 08/20/2017 04:59:47 Document Registration [id number] 08/19/2017 04:59:47 Document Registration [id number] 08/18/2017 04:59:51 Document Registration [id number] 08/17/2017 04:59:47 Document Registration [id number] 08/16/2017 04:59:48 Document Registration [id number] 08/15/2017 04:59:51 Document Registration [id number] 08/14/2017 04:59:48 Document Registration [id number] 08/13/2017 04:59:48 Document Registration [id number] 08/12/2017 04:59:52 Document Registration [id number] 08/11/2017 04:59:49 Document Registration [id number] 08/10/2017 04:59:54 Document Registration [id number] 08/09/2017 04:59:56 Document Registration [id number] 08/08/2017 04:59:58 Document Registration [id number] 08/07/2017 04:59:59 Document Registration [id number] 08/06/2017 05:00:01 Document Registration [id number] 08/05/2017 04:59:59 Document Registration [id number] 08/04/2017 05:00:00 Document Registration [id number] 08/03/2017 05:00:06 Document Registration [id number] 08/02/2017 05:00:04 Document Registration [id number] 08/01/2017 05:00:04 Document Registration [id number] 07/31/2017 05:00:07 Document Registration [id number] 07/30/2017 05:00:09 Document Registration [id number] 07/29/2017 05:00:04 Document Registration [id number] 07/28/2017 05:00:08 Document Registration [id number] 07/27/2017 05:00:04 Document Registration [id number] 07/26/2017 05:00:08 Document Registration [id number] 07/25/2017 05:00:07 Document Registration [id number] 07/24/2017 05:00:04 Document Registration [id number] 05:00:08 Document Registration [id number] 07/22/2017 05:00:07 Document Registration [id number] 07/21/2017 05:00:04 Document Registration [id number] 07/20/2017 05:00:04 Document Registration [id number] 07/19/2017 05:00:08 Document Registration [id number] 07/18/2017 05:00:04 Document Registration [id number] 07/17/2017 05:00:04 Document Registration [id number] 07/16/2017 05:00:07 Document Registration [id number] 07/15/2017 05:00:04 Document Registration [id number] 07/14/2017 05:00:04 Document Registration [id number] 07/13/2017 05:00:08 Document Registration [id number] 07/12/2017 05:00:06 Document Registration [id number] 07/11/2017 05:00:04 Document Registration [id number] 07/10/2017 05:00:07 Document Registration [id number] 07/09/2017 05:00:04 Document Registration [id number] 07/08/2017 05:00:08 Document Registration [id number] 07/07/2017 05:00:07 Document Registration [id number] 07/06/2017 05:00:04 Document Registration [id number] 07/05/2017 05:00:05 Document Registration [id number] 07/04/2017 05:00:07 Document Registration [id number] 07/03/2017 05:00:03 Document Registration [id number] 07/02/2017 05:00:04 Document Registration [id number] 07/01/2017 05:00:07 Document Registration [id number] 06/30/2017 05:00:04 Document Registration [id number] 06/29/2017 05:00:04 Document Registration [id number] 06/28/2017 05:00:07 Document Registration [id number] 06/27/2017 05:00:04 Document Registration [id number] 06/26/2017 05:00:04 Document Registration [id number] 06/25/2017 05:00:08 Document Registration [id number] 06/24/2017 05:00:05 Document Registration [id number] 06/23/2017 05:00:04 Document Registration [id number] 06/22/2017 05:00:08 Document Registration [id number] 06/21/2017 05:00:04 Document Registration [id number] 06/20/2017 05:00:03 Document Registration [id number] 06/19/2017 05:00:08 Document Registration [id number] 06/18/2017 05:00:08 Document Registration [id number] 06/17/2017 05:00:04 Document Registration [id number] 06/16/2017 05:00:09 Document Registration [id number] 06/15/2017 05:00:04 Document Registration [id number] 06/14/2017 05:00:04 Document Registration [id number] 06/13/2017 05:00:08 Document Registration [id number] 06/12/2017 05:00:04 Document Registration [id number] 06/11/2017 05:00:04 Document Registration [id number] 06/10/2017 05:00:07 Document Registration [id number] 06/09/2017 05:00:03 Document Registration [id number] 06/08/2017 05:00:05 Document Registration [id number] 06/07/2017 05:00:07 Document Registration [id number] 06/06/2017 05:00:04 Document Registration [id number] 06/05/2017 05:00:05 Document Registration [id number] 06/04/2017 05:00:08 Document Registration [id number] 06/03/2017 05:00:07 Document Registration [id number] 06/02/2017 05:00:09 Document Registration [id number] 06/01/2017 05:00:07 Document Registration [id number] 05/31/2017 05:00:04 Document Registration [id number] 05/30/2017 05:00:04 Document Registration [id number] 05/29/2017 05:00:08 Document Registration [id number] 05/28/2017 05:00:04 Document Registration [id number] 05/27/2017 05:00:08 Document Registration [id number] 05/26/2017 05:00:08 Document Registration [id number] 05/25/2017 05:00:03 Document Registration [id number] 05/24/2017 05:00:04 Document Registration [id number] 05/23/2017 05:00:08 Document Registration [id number] 05/22/2017 05:00:03 Document Registration [id number] 05/21/2017 05:00:05 Document Registration [id number] 05/20/2017 05:00:08 Document Registration [id number] 05/19/2017 05:00:04 Document Registration [id number] 05/18/2017 05:00:03 Document Registration [id number] 05/17/2017 05:00:08 Document Registration [id number] 05/16/2017 05:00:03 Document Registration [id number] 05/15/2017 05:00:06 Document Registration [id number] 05/14/2017 05:00:07 Document Registration [id number] 05/13/2017 05:00:08 Document Registration [id number] 05/12/2017 05:00:04 Document Registration [id number] 05/11/2017 05:00:07 Document Registration [id number] 05/10/2017 05:00:04 Document Registration [id number] 05/09/2017 05:00:03 Document Registration [id number] 05/08/2017 05:00:07 Document Registration [id number] 05/07/2017 05:00:09 Document Registration [id number] 05/06/2017 05:00:04 Document Registration [id number] 05/05/2017 05:00:07 Document Registration [id number] 05/04/2017 05:00:04 Document Registration [id number] 05/03/2017 05:00:07 Document Registration [id number] 05/02/2017 05:00:07 Document Registration [id number] 05/01/2017 05:00:04 Document Registration [id number] 04/30/2017 05:00:04 Document Registration [id number] 04/29/2017 05:00:07 Document Registration [id number] 04/28/2017 05:00:04 Document Registration [id number] 04/27/2017 05:00:04 Document Registration [id number] 04/26/2017 05:00:07 Document Registration [id number] 04/25/2017 05:00:08 Document Registration [id number] 04/24/2017 05:00:04 Document Registration [id number] 04/23/2017 05:00:07 Document Registration [id number] 04/22/2017 05:00:04 Document Registration [id number] 04/21/2017 05:00:08 Document Registration [id number] 04/20/2017 05:00:08 Document Registration [id number] 04/19/2017 05:00:03 Document Registration [id number] 04/18/2017 05:00:07 Document Registration [id number] 04/17/2017 05:00:07 Document Registration [id number] 04/16/2017 05:00:03 Document Registration [id number] 04/15/2017 05:00:04 Document Registration [id number] 04/14/2017 05:00:08 Document Registration [id number] 04/13/2017 05:00:08 Document Registration [id number] 04/12/2017 05:00:04 Document Registration [id number] 04/11/2017 05:00:07 Document Registration [id number] 04/10/2017 05:00:08 Document Registration [id number] 04/09/2017 05:00:04 Document Registration [id number] 04/08/2017 05:00:08 Document Registration [id number] 04/07/2017 05:00:05 Document Registration [id number] 03/17/2016 10:01:00 Document Registration [id number] 09/15/2011 11:51:00 Document Registration [id number] 02/01/2011 10:38:00 Document Registration [id number] 01/18/2011 11:10:00 Document Registration [id number] 01/05/2011 09:29:00 Document Registration [id number] 01/04/2011 12:32:00 Document Registration [id number] 12/31/2010 10:33:00 Document Registration [id number] 02/12/2010 00:00:00 Document Registration [id number] 04/26/2017 03:04:04 04/26/2017 23:59:59 [facility] Outpatient
[2018-04-12 10:10] VITALS: BP 132/78
[2018-04-12] MEDS: LACTATED RINGERS 1,000 ML IV PRN ×2 (10:10→12:52)
[2018-04-12] MEDS ORDERED: BUP/EPI 0.5% 1:200,000 (SENSORCAINE) 30 ML VIAL ONE (10:11)
[2018-04-12] MEDS ORDERED: LACTATED RINGERS 1,000 ML IV PRN (10:24)
[2018-04-12] MEDS ORDERED: NS (IVPB) 50 ML ONE (10:29)
[2018-04-12] MEDS ORDERED: ceFAZolin 1,000 MG/10 ML (ANCEF) VIAL ONE (10:29)
[2018-04-12] MEDS ORDERED: metroNIDAZOLE 500MG/100ML IVPB 100 ML ONE (10:29)
[2018-04-12] MEDS ORDERED: FAMOTIDINE 20MG/2ML IV (PEPCID) IV ONE (10:30)
[2018-04-12] MEDS ORDERED: metroNIDAZOLE 500MG/100ML IVPB 100 ML IV ONE (10:30)
[2018-04-12] MEDS ORDERED: ONDANSETRON 4 MG/2 ML (SDV) Z0FRAN IV ONE (10:30)
[2018-04-12] MEDS ORDERED: ceFAZolin INJECTION 1,000 MG in NS (IVPB) 50 ML IV ONE (10:30)
[2018-04-12] MEDS ORDERED: MIDAZOLAM 2 MG/2 ML (VERSED) VIAL ONE (10:39)
[2018-04-12] MEDS ORDERED: fentaNYL INJECTION 100 MCG/2 ML AMP ONE ×2 (10:39→13:29)
[2018-04-12] MEDS ORDERED: CATHETER FLUSH 10 ML SYR IV PRN (10:45)
[2018-04-12] MEDS ORDERED: proPOfol 200 MG/20 ML (DIPRIVAN) VIAL IV ONE (10:49)
[2018-04-12] MEDS ORDERED: ONDANSETRON 4 MG/2 ML (SDV) Z0FRAN ONE (10:49)
[2018-04-12] MEDS ORDERED: SEVOFLURANE (ULTANE) 15 ML INHAL SOLN ONE (10:49)
[2018-04-12] MEDS ORDERED: ROCURONIUM 10 MG/ML 5 ML SYRINGE IV ONE ×2 (10:49→13:19)
[2018-04-12] MEDS ORDERED: LIDOCAINE PF 2% 5 ML (XYLOCAINE) VIAL ONE (10:49)
[2018-04-12] MEDS ORDERED: DEXAMETHASONE 10 MG/ML (DECADRON) 1 ML VIAL ONE (10:49)
[2018-04-12] MEDS ORDERED: PROPOFOL INJECTION 50 ML IV ONE ×2 (11:00→13:03)
[2018-04-12] MEDS ORDERED: ACHD5005 PO (11:11)
--- NOTE | 2018-04-12 11:12 | Discharge Inst-Simple/Standard ---
Discharge Inst-Standard Discharge Medications New, Converted or Re-Newed RX: RX on Chart Patient Instructions/Follow Up Plan of Care/Instructions/FU: Band-Aids off in 48 hours. Incentive spirometry. Follow-up in 3 weeks. Activity as Tolerated: Yes Discharge Diet: No Restrictions CATIE ARMSTRONG MD Apr 12, 2018 11:12
[2018-04-12] MEDS ORDERED: LACTATED RINGERS 1,000 ML IV ONE (12:31)
[2018-04-12] MEDS ORDERED: hydrALAZINE (APESOLINE) 20 MG/ML VIAL ONE (12:48)
[2018-04-12] MEDS ORDERED: PHENYLEPHRINE 100 MCG/ML 10 ML (ANESTHESIA) SYR ONE (12:48)
[2018-04-12] MEDS ORDERED: NEOSTIGMINE 1 MG/ML 5 ML SYRINGE ONE (13:18)
[2018-04-12] MEDS ORDERED: GLYCOPYRROLATE 0.2 MG/ML (ROBINUL) 2 ML VIAL ONE (13:18)
--- NOTE | 2018-04-12 13:44 | Operative Report ---
Operative Report Date of Procedure/Surgery Apr 12, 2018 Surgeon (s) CATIE ARMSTRONG MD Baggagemaster (s): Shea Fernandez ( Med Student III) Post-Operative Diagnosis Gallstones. Chronic cholecystitis Normal cholangiogram Procedure Performed Robotic-assisted cholecystectomy Intraoperative cholangiogram Description of Procedure Anesthesia Type: General Estimated blood loss (mL): Minimal Specimen(s) collected/removed Gallbladder Description of the Procedure Indication for the procedure: This lady resented with symptomatic gallstones. She was offered prompt cholecystectomy using minimally invasive technique robotic, combined with intraoperative cholangiogram to rule out choledocholithiasis. Informed consent was obtained after reviewing the operative details and complications of wound infection and bile leak. Description of the procedure: She was placed supine on the operative table and general anesthesia induced. Ancef and Flagyl were administered intravenously as prophylaxis. Sequential compression devices were placed around her legs, to minimize the risk of venous thrombosis. Abdomen was prepared and draped in the usual sterile manner. A supraumbilical incision was made and pneumoperitoneum established using a Veress needle. A 12 mm trocar was placed and anatomy visualized using the high definition, 3- dimensional laparoscopic, associated with da Luzma system. Under direct view, I placed an 8 mm trocar over each side of the abdomen, followed by a 5 mm trocar over the left upper quadrant. The patient was then turned into reverse Trendelenburg position, with the right side tilted up the robotic system was then docked. Gallbladder was rather thick due to chronic cholecystitis and packed with stones. Omentum adherent to the body of the gallbladder was taken down using the artery. The fundus was then retracted cephalad and the infundibulum grasped with Cadiere forceps. Thickened tissue around Calot's triangle was incised using the hook cautery, delineating the cystic duct and artery. Cholangiogram was obtained using a Taut catheter. It revealed normal anatomy with no filling defects within the common bile duct. The contrast flowed freely into the duodenum. The catheter was then removed and the cystic duct controlled using locking clips. Cystic artery was managed in a similar fashion, followed by cholecystectomy using the hook cautery. Gallbladder was then placed in an Endo Catch bag and removed via the supraumbilical trocar site. The fascia over this incision had to be extended laterally to allow retrieval of the large gallbladder stones. The fascia over the supraumbilical incision was closed using #1 Vicryl, in an interrupted fashion. Skin incisions were closed using 4-0 Vicryl, in a subcuticular fashion. 0.5 percent Marcaine with epinephrine was infiltrated along the incisions, both preemptively and at the conclusion of the operation. She tolerated the procedure well, was extubated in the operating room and taken to the recovery room in a stable condition. Findings of the Procedure See operative report Allergies and Home Medications Allergies Coded Allergies: No Known Drug Allergies (Unverified , 04/10/18) Home Medications Denosumab 60 Mg/1 Ml Disp.syrin, 60 MG SQ Q 6 MONTHS, (Reported) Hydrocodone Bit/Acetaminophen 1 Tab Tab, 1 TAB PO Q6H PRN for PAIN-MODERATE Prescribed by: CATIE ARMSTRONG on 04/12/18 1111 Lamotrigine 100 Mg Tablet, 100 MG PO DAILY, (Reported) Lamotrigine 150 Mg Tablet, 150 MG PO HS, (Reported) Meclizine HCl 25 Mg Tablet, 25 MG PO TID PRN for DIZZINESS Prescribed by: MICHAEL LYNNE on 04/05/17 0917 Phenytoin Sodium Extended 100 Mg Capsule, 300 MG PO DAILY, (Reported) Patient Home Medication List Home Medication List Reviewed: Yes CATIE ARMSTRONG MD Apr 12, 2018 13:43
--- NOTE | 2018-04-12 13:46 | Diagnostic Imaging Report ---
Indication: Laparoscopic cholecystectomy. Intraoperative cholangiogram. Comparison: None Total fluoro time: 26 seconds Findings: Multiple intraoperative images, 5 views, of the upper abdomen were obtained during intraoperative cholangiogram. Images provided show contrast filling the intra- and extrahepatic biliary ductal systems. No intraluminal filling defects are seen within the common bile duct. Contrast extends into the small bowel, as expected. Please note, interpreting radiologist was not present during the procedure. Impression: 1. Fluoroscopic guidance provided during intraoperative cholangiogram as described above. Dictated by: Dictated on workstation # [id number]
[2018-04-12] MEDS: ONDANSETRON 4 MG/2 ML (SDV) Z0FRAN IVP PRN ×2 (14:10→14:52)
--- NOTE | 2018-04-12 14:11 | Anesthesia-General Post-Op ---
General Patient Condition Mental Status/LOC: Same as Preop Cardiovascular: Satisfactory Nausea/Vomiting: Absent Respiratory: Satisfactory Pain: Controlled Complications: Absent Post Op Complications Complications None Follow Up Care/Instructions Patient Instructions None needed. Anesthesia/Patient Condition Patient Condition Patient is doing well, no complaints, stable vital signs, no apparent adverse anesthesia problems. No complications reported per nursing. [place] [facility] [place] Yes MILTON MURRAY CRNA Apr 12, 2018 14:11
[2018-04-12] MEDS ORDERED: MEPERIDINE (DEMEROL) INJ 50 MG/ML IVP ONE (14:15)
[2018-04-12] MEDS ORDERED: morphine INJ 10 MG/ML 1ML (SYR OR VIAL) IVP ONE (14:15)
[2018-04-12 15:05] VITALS: BP 138/78
[2018-04-12 15:10] VITALS: BP 138/78
[2018-04-12] MEDS ORDERED: METOCLOPRAMIDE INJ 10 MG/2 ML (REGLAN) ONE (15:15)
[2018-04-12] MEDS ORDERED: METOCLOPRAMIDE INJ 10 MG/2 ML (REGLAN) IVP ONE (15:15)
[2018-04-12 16:05] VITALS: BP 138/75
[2018-04-12] MEDS ORDERED: PROMETHAZINE INJ 25 MG/ML (PHENERGAN) AMP ONE (16:32)
[2018-04-12] MEDS ORDERED: LACTATED RINGERS 1,000 ML IV SCH (16:45)
[2018-04-12] MEDS ORDERED: PROMETHAZINE INJ 25 MG/ML (PHENERGAN) AMP IVP ONE (16:45)
[2018-04-12] MEDS ORDERED: fentaNYL INJECTION 100 MCG/2 ML AMP IVP PRN (16:45)
[2018-04-12] MEDS ORDERED: NON-FORMULARY MEDICATION 1 EA EA (Denosumab (Prolia) 60 MG) SQ SCH (17:00)
[2018-04-12] MEDS ORDERED: HYDROcodone/APAP 5 MG/325 MG (LORTAB) TAB PO PRN (17:00)
[2018-04-12] MEDS ORDERED: MECLIZINE 25 MG (ANTIVERT) TAB PO PRN (17:00)
[2018-04-12 17:15] VITALS: BP 143/76
[2018-04-12] MEDS ORDERED: PATIENT MAY USE OWN MEDS, ALL MC SCH (17:30)
[2018-04-12] MEDS: METOCLOPRAMIDE INJ 10 MG/2 ML (REGLAN) IVP SCH (18:02)
[2018-04-12 19:10] VITALS: BP 155/70
[2018-04-12] MEDS ORDERED: ONDANSETRON 4 MG/2 ML (SDV) Z0FRAN IVP PRN (20:45)
[2018-04-12] MEDS ORDERED: PHENYTOIN 100 MG (DILANTIN) CAP PO SCH (21:00)
[2018-04-12] MEDS ORDERED: NON-FORMULARY MEDICATION 1 EA EA (Lamotrigine 150 MG) PO SCH (21:00)
[2018-04-12] MEDS ORDERED: LAMICTAL 150 MG PO SCH (21:00)
[2018-04-12] MEDS: ACETAMINOPHEN 325 MG TABLET PO PRN (21:53)
[2018-04-13 00:08] VITALS: BP 130/62
[2018-04-13] MEDS: METOCLOPRAMIDE INJ 10 MG/2 ML (REGLAN) IVP SCH ×2 (00:30→06:29)
[2018-04-13 04:05] VITALS: BP 135/63
[2018-04-13] MEDS: ACETAMINOPHEN 325 MG TABLET PO PRN (06:32)
[2018-04-13 08:23] VITALS: BP 133/58
--- NOTE | 2018-04-13 08:28 | Progress Note-Standard ---
Standard Progress Note Progress Notes/Assess & Plan Date Seen by a Provider: Apr 13, 2018 Time Seen by a Provider: 07:25 Progress/Assessment & Plan uneventful night. Postoperative nausea resolved, pain control adequate. Incisions dry. Vital signs stable. Tolerating diet. Could be discharged home Final Diagnosis cholelithiasis CATIE ARMSTRONG MD Apr 13, 2018 08:28
[2018-04-13] MEDS ORDERED: PHENYTOIN SODIUM 300 MG PO SCH (09:00)
[2018-04-13] MEDS ORDERED: PHENYTOIN 100 MG (DILANTIN) CAP PO SCH (09:00)
[2018-04-13] MEDS ORDERED: NON-FORMULARY MEDICATION 1 EA EA (Lamotrigine 100 MG) PO SCH (09:00)
[2018-04-13] MEDS ORDERED: METOCLOPRAMIDE INJ 10 MG/2 ML (REGLAN) IVP SCH (12:00)
[2018-04-14] MEDS ORDERED: MECL-106 PO (13:19)
[2018-04-14] MEDS ORDERED: ACET-2267 PO (13:19)
[2018-04-16] MEDS ORDERED: PHENYTOIN 100 MG (DILANTIN) CAP PO SCH (17:00)
== END 2018-04-13 08:30 | disposition home or self-care (01) ==
LOC: SDC 09:41 → 4TH 17:04 → SDC 04-13 08:30
PROVIDERS: ATTEND Surgery
DX: K80.10 Calculus of gallbladder with chronic cholecystitis without obstruction (principal); M06.9 Rheumatoid arthritis, unspecified; G40.909 Epilepsy, unspecified, not intractable, without status epilepticus; E72.11 Homocystinuria; D47.2 Monoclonal gammopathy; M85.80 Other specified disorders of bone density and structure, unspecified site; Z79.899 Other long term (current) drug therapy; Z11.2 Encounter for screening for other bacterial diseases
CPT/HCPCS: 87081; 88304

== ENCOUNTER 2018-04-14 09:45 | Observation (INO) | payer MEDICARE, OTHER ==
[~2018-04-14] VITALS: Ht 165.1 cm; Wt 51.3 kg
[~2018-04-14 09:45] MED LIST changes: +ACHD5005 PO
--- OUTSIDE RECORDS SUMMARY | 2018-04-14 09:49 | XMS REPORT | Clinical Summary ---
Author Author [facility] Organization [facility] Address Unknown Phone Unavailable Care Team Providers Care Game Moderator Name Role Phone PCP Unavailable Allergies Not [...]
--- OUTSIDE RECORDS SUMMARY | 2018-04-14 09:50 | XMS REPORT | Clinical Summary ---
Author Author [facility] Organization [facility] Address Unknown Phone Unavailable Care Team Providers Care Backhoe Operator Name Role Phone Ángel Swenson MD Unavailable Unavailable Janet Gonzalez MD Unavailable Krissy Bennett RN Unavailable Maximiliano Gonzalez MD Unavailable Araceli Ferreira PUBLIC POLICY MEDIATOR-LINUX SYSTEM ENGINEER Unavailable Alexis Cesar MD Unavailable Evette Pang MD Unavailable Magali Zepeda MD PCP Source Comments Some departments are not documenting in the electronic medical record. If you do not see the information that you expected, contact Release of Information in the Health Information Management department at [phone] for further assistance in locating additional records.[facility] Allergies No Known Allergies Current [...] Pituitary tumor 08/13/2012 Malnutrition of moderate degree ([facility]) 08/13/2012 SIADH (syndrome of inappropriate ADH production) ([facility]) 08/13/2012 Depression 08/13/2012 Leukopenia 08/13/2012 Family History [...]
--- OUTSIDE RECORDS SUMMARY | 2018-04-14 09:52 | XMS REPORT | CCD ---
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 Name Role Phone PP Unavailable CCM Unavailable Summary Purpose Interface Exchange Insurance Providers Payer name Policy type / Coverage type Covered alliance party ID Effective Begin Date Effective End Date WPS Medicare Part B Medicare Part B [id number] 2017 Unknown [employer] Medicare Part B [id number] Unknown Family history Sister Diagnosis Age At [...] Unknown Retired 02/10/[address]: 417761499 Never smoker 02/10/[address]: 177337041 Never drinks alcohol 02/10/2016 Has the patient [...] Instructions Dilantin Extended 100 mg capsule RxNorm: 267637 TAKE 1 CAPSULE BY MOUTH THREE TIMES DAILY FOR 3 DAYS, THEN 1 CAPSULE FOUR TIMES DAILY FOR 1 DAY, THEN REPEAT CYCLE. 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 Dilantin Extended 100 mg capsule RxNorm: 790615 Capsule(s) PO UD 1 cap TID x 3 days then 1 cap qid x 1 day then repeat cycle 12/15/2017 04/11/2018 Inactive give 1 month supply lamotrigine 150 mg tablet RxNorm: 738827 1 Tablet(s) PO QHS 04/05/2018 Inactive lamotrigine 100 mg tablet RxNorm: 288966 1 Tablet(s) PO QAM 03/30/2018 Inactive Levaquin 500 mg tablet RxNorm: 237855 1 Tablet(s) PO daily 12/11/2017 Inactive Keflex 500 mg capsule RxNorm: 907748 1 Capsule(s) PO TID 201711/20/2017 Inactive Keflex 500 mg capsule RxNorm: 343315 1 Capsule(s) PO TID 201711/13/2017 Inactive Dilantin Extended 100 mg capsule RxNorm: 878495 Capsule(s) PO UD m3pill/tue3 pill/ wed 4 pill/ thur 2pill/fri 3pill/sat 4pill/sun 3 pill 201712/14/2017 Inactive Dilantin Extended 100 mg capsule RxNorm: 571027 Capsule(s) PO UD -Alternate 300 mg for two days in a row and then 400 mg for one day and repeat cycle 10/04/2017 10/12/2017 Inactive Augmentin 500 mg-125 mg tablet RxNorm: 946005 1 Tablet(s) PO TID 07/15/2017 07/14/2017 Inactive Augmentin 500 mg-125 mg tablet RxNorm: 439505 1 Tablet(s) PO TID 07/15/2017 07/21/2017 Inactive Dilantin Extended 100 mg capsule RxNorm: 388198 1 Capsule(s) PO daily -Alternate 300 mg and 400 mg every other day 06/07/2017 10/03/2017 Inactive Bactrim DS 800 mg-160 mg tablet RxNorm: 947728 1 Tablet(s) PO BID 05/02/2017 05/08/2017 Inactive Dilantin Extended 100 mg capsule RxNorm: 227837 1 Capsule(s) PO daily in the afternoon and 2 Capsules PO HS- Will take an additional pill if she has a lot of jerking 04/27/2017 06/06/2017 Inactive Keflex 500 mg capsule RxNorm: 260494 1 Capsule(s) PO TID 201604/23/2017 Inactive dicyclomine 10 mg capsule RxNorm: 312045 1 Capsule(s) PO BID as needed 03/30/2017 05/28/2017 Inactive Senna with Docusate Sodium 8.6 mg-50 mg tablet RxNorm: 972276 1 Tablet(s) PO BID as needed constipation 03/02/20172017 Inactive Keflex 500 mg capsule RxNorm: 668804 1 Capsule(s) PO TID 201608/20/2016 Inactive Levaquin 500 mg tablet RxNorm: 697870 1 Tablet(s) PO daily 09/201504/22/2016 Inactive ciprofloxacin 500 mg tablet RxNorm: 528556 1 Tablet(s) PO BID 02/10/2016 02/16/2016 Inactive prednisone 10 mg tablet RxNorm: 716803 1 Tablet(s) PO as needed for pain No Start Date Active Prolia 60 mg/mL subcutaneous syringe RxNorm: 233429 1 injection SQ Q6 months No Start Date Active lamotrigine 150 mg tablet RxNorm: 541035 1 Tablet(s) PO QHS No Start Date 12/06/2017 Inactive lamotrigine 100 mg tablet RxNorm: 696245 1 Tablet(s) PO QAM No Start Date 12/06/2017 Inactive Dilantin Extended 100 mg capsule RxNorm: 541521 Capsule(s) PO TAKES FOUR CAPSULES FOR 2 DAYS, THEN THREE CAPSULES FOR 1 DAY, THEN REPEATS No Start Date 04/26/2017 Inactive Humira 20 mg/0.4 mL subcutaneous syringe kit RxNorm: 790372 1 injection SQ every 2 weeks- Prescribed [...] Ord7 DILANTIN 10.6 UG/ML 04/11/2018 Culture Urine [id number] URINE CULTURE SEE NOTES 02/20/2018 Culture Urine [id number] Continued Results 02/20/2018 Urine Culture Ucult Complete >100,000 col/ml aerobic growth sent to ref lab 02/17/2018 Dilantin Ord7 DILANTIN 14.4 UG/ML 02/16/2018 Comp Metabolic Gdq805 NA 135 mEq/L 02/16/2018 Comp Metabolic Urz068 K 3.8 mEq/L 02/16/2018 Comp Metabolic Lmc329 CL 99 mEq/L 02/16/2018 Comp Metabolic Lyo803 CO2 28.0 mEq/L 02/16/2018 Comp Metabolic Tay521 ANION GAP 12 02/16/2018 Comp Metabolic Klh441 GLUCOSE 101 mg/dL 02/16/2018 Comp Metabolic Tvs143 Creat 0.8 mg/dL 02/16/2018 Comp Metabolic Lhk647 eGFR 75 ml/min/1.73m2 02/16/2018 Comp Metabolic Bkc479 BUN 20 mg/dL 02/16/2018 Comp Metabolic Ybm049 B/C Ratio 25.0 Ratio 02/16/2018 Comp Metabolic Pyl413 CALCIUM 8.9 mg/dL 02/16/2018 Comp Metabolic Bse748 ALK PHOS 95 U/L 02/16/2018 Comp Metabolic Dfz161 AST(SGOT) 13 U/L 02/16/2018 Comp Metabolic Frk878 ALT(SGPT) 7 U/L 02/16/2018 Comp Metabolic Hvh577 BILI T 0.4 mg/dL 02/16/2018 Comp Metabolic Lim991 ALBUMIN 3.6 g/dL 02/16/2018 Comp Metabolic Guh307 TPRO 7.2 g/dL 02/16/2018 Comp Metabolic Gal051 GLOB 3.6 g/dL 02/16/2018 Comp Metabolic Aid620 A/G Ratio 1.0 Ratio 02/16/2018 Comp Metabolic Gfw299 Osmo 273 mOsmo 02/16/2018 Urine Culture Ucult Complete >100,000 col/ml aerobic growth sent to ref lab 11/15/2017 Dilantin Ord7 DILANTIN 21.4 Result Verified By Repeat Analysis UG/ML 10/13/2017 Comp Metabolic Pbe637 NA 136 mEq/L 10/13/2017 Comp Metabolic Dpo254 K 4.0 mEq/L 10/13/2017 Comp Metabolic Efj567 CL 98 mEq/L 10/13/2017 Comp Metabolic Nms724 CO2 28.0 mEq/L 10/13/2017 Comp Metabolic Teh484 ANION GAP 14 10/13/2017 Comp Metabolic Dxu404 GLUCOSE 94 mg/dL 10/13/2017 Comp Metabolic Gos168 Creat 0.7 mg/dL 10/13/2017 Comp Metabolic Zid822 eGFR 82 ml/min/1.73m2 10/13/2017 Comp Metabolic Mfr849 BUN 26 mg/dL 10/13/2017 Comp Metabolic Use882 B/C Ratio 35.1 Ratio 10/13/2017 Comp Metabolic Qta597 CALCIUM 9.1 mg/dL 10/13/2017 Comp Metabolic Uhz913 ALK PHOS 98 U/L 10/13/2017 Comp Metabolic Sba704 AST(SGOT) 15 U/L 10/13/2017 Comp Metabolic Lhg336 ALT(SGPT) 8 U/L 10/13/2017 Comp Metabolic Pwm602 BILI T 0.4 mg/dL 10/13/2017 Comp Metabolic Tgi372 ALBUMIN 3.7 g/dL 10/13/2017 Comp Metabolic Ohk458 TPRO 7.8 g/dL 10/13/2017 Comp Metabolic Ijs592 GLOB 4.1 g/dL 10/13/2017 Comp Metabolic Gzb991 A/G Ratio 0.9 Ratio 10/13/2017 Comp Metabolic Win561 Osmo 276 mOsmo 10/13/2017 Dilantin Ord7 DILANTIN 24.1 Result Verified By Repeat Analysis UG/ML 10/03/2017 Dilantin Ord7 DILANTIN 18.1 UG/ML 06/30/2017 Dilantin Ord7 DILANTIN 22.7 UG/ML 06/16/2017 Dilantin Ord7 DILANTIN 26.1 UG/ML 06/07/2017 Dilantin Ord7 DILANTIN 24.1 UG/ML 05/24/2017 Dilantin Ord7 DILANTIN 19.6 UG/ML 05/11/2017 Culture Urine [id number] URINE CULTURE SEE NOTES 05/06/2017 Culture Urine [id number] Continued Results 05/06/2017 Urine Culture Ucult Complete >100,000 col/ml aerobic growth sent to ref lab 05/03/2017 Dilantin Ord7 DILANTIN 12.6 UG/ML 04/27/2017 Calcium Ord79 CALCIUM 9.3 mg/dL 04/19/2017 Dilantin Ord7 DILANTIN 21.6 UG/ML 04/19/2017 Dilantin Ord7 DILANTIN 10.3 UG/ML 04/13/2017 Dilantin Ord7 DILANTIN 21.9 UG/ML 04/07/2017 Tsh Ord6 hTSH II 0.95 uIU/mL 03/30/2017 B12 Eft882 B12 592.00 pg/ml 03/30/2017 Cbc With Differential [...] 30.9 pg 03/30/2017 Cbc With Differential Ord2 Cameron% 23.9 % 03/30/2017 Cbc With Differential Ord2 Eos% 7.3 % 03/30/2017 Cbc With Differential Ord2 MCHC 34.6 pg 03/30/2017 Cbc With Differential Ord2 PLT 149 K/ul 03/30/2017 Cbc With Differential Ord2 Baso% 0.9 % 03/30/2017 Cbc With Differential Ord2 RDW 13.3 % 03/30/2017 Cbc With Differential Ord2 Neut ABS# 0.30 K/ul 03/30/2017 Cbc With Differential Ord2 Lymph ABS# 0.44 K/ul 03/30/2017 Cbc With Differential Ord2 Cameron ABS# 0.3 K/ul 03/30/2017 Cbc With Differential Ord2 Eos ABS# 0.1 K/ul 03/30/2017 Cbc With Differential Ord2 Baso ABS# 0.0 K/ul 03/30/2017 Folate Ord36 Folate 16.46 ng/mL 03/30/2017 Dilantin Ord7 DILANTIN 32.5 UG/ML 03/30/2017 Comp Metabolic Zlr752 NA 137 mEq/L 03/30/2017 Comp Metabolic Rep267 K 3.7 mEq/L 03/30/2017 Comp Metabolic Zsr988 CL 98 mEq/L 03/30/2017 Comp Metabolic Hcp289 CO2 29.0 mEq/L 03/30/2017 Comp Metabolic Ifv420 ANION GAP 14 03/30/2017 Comp Metabolic Bbt312 GLUCOSE 100 mg/dL 03/30/2017 Comp Metabolic Bpw992 Creat 0.9 mg/dL 03/30/2017 Comp Metabolic Oii869 eGFR 88 ml/min/1.73m2 03/30/2017 Comp Metabolic Twp746 BUN 22 mg/dL 03/30/2017 Comp Metabolic Qgt865 B/C Ratio 24.4 Ratio 03/30/2017 Comp Metabolic Xcv602 CALCIUM 9.4 mg/dL 03/30/2017 Comp Metabolic Cvu878 ALK PHOS 113 U/L 03/30/2017 Comp Metabolic Wdf207 AST(SGOT) 16 U/L 03/30/2017 Comp Metabolic Ymh304 ALT(SGPT) 7 U/L 03/30/2017 Comp Metabolic Mgp746 BILI T 0.3 mg/dL 03/30/2017 Comp Metabolic Qvu192 ALBUMIN 3.9 g/dL 03/30/2017 Comp Metabolic Kwf428 TPRO 8.0 g/dL 03/30/2017 Comp Metabolic Fqt804 GLOB 4.1 g/dL 03/30/2017 Comp Metabolic Vcs559 A/G Ratio 0.9 Ratio 03/30/2017 Comp Metabolic Dsl798 Osmo 277 mOsmo 03/30/2017 Lipid Ord30 CHOL 214 mg/dL 03/30/2017 Lipid Ord30 HDL 61.0 mg/dl 03/30/2017 Lipid Ord30 TRIG 130 mg/dL 03/30/2017 Lipid Ord30 LDL 127 mg/dL 03/30/2017 Lipid Ord30 C/HDL 3.5 Ratio 03/30/2017 Dilantin Ord7 DILANTIN 17.2 UG/ML 08/11/2016 Tsh Ord6 hTSH II 0.82 uIU/mL 08/11/2016 Cbc With Differential Ord2 WBC 1.86 K/ul 08/11/2016 Cbc With Differential Ord2 RBC 4.06 M/ul 08/11/2016 Cbc With Differential Ord2 HGB 12.3 g/dl 08/11/2016 Cbc With Differential Ord2 HCT 35.4 % 08/11/2016 Cbc With Differential Ord2 Neut% 35.6 % 08/11/2016 Cbc With Differential Ord2 MCV 87.2 fl 08/11/2016 Cbc With Differential Ord2 Lymph% 31.7 % 08/11/2016 Cbc With Differential Ord2 Cameron% 31.7 % 08/11/2016 Cbc With Differential Ord2 MCH 30.3 pg 08/11/2016 Cbc With Differential Ord2 Eos% 0.5 % 08/11/2016 Cbc With Differential Ord2 MCHC 34.7 pg 08/11/2016 Cbc With Differential Ord2 PLT 236 K/ul 08/11/2016 Cbc With Differential Ord2 Baso% 0.5 % 08/11/2016 Cbc With Differential Ord2 Neut ABS# 0.66 K/ul 08/11/2016 Cbc With Differential Ord2 RDW 13.2 % 08/11/2016 Cbc With Differential Ord2 Lymph ABS# 0.59 K/ul 08/11/2016 Cbc With Differential Ord2 Cameron ABS# 0.6 K/ul 08/11/2016 Cbc With Differential Ord2 Eos ABS# 0.0 K/ul 08/11/2016 Cbc With Differential Ord2 Baso ABS# 0.0 K/ul 08/11/2016 Comp Metabolic Riw219 NA 131 mEq/L 08/11/2016 Comp Metabolic Piw894 K 4.1 mEq/L 08/11/2016 Comp Metabolic Gep316 CL 93 mEq/L 08/11/2016 Comp Metabolic Skg363 CO2 29.0 mEq/L 08/11/2016 Comp Metabolic Mnd565 ANION GAP 13 08/11/2016 Comp Metabolic Cbp874 GLUCOSE 120 mg/dL 08/11/2016 Comp Metabolic Lhi443 Creat 0.8 mg/dL 08/11/2016 Comp Metabolic Pii121 eGFR 101 ml/min/1.73m2 08/11/2016 Comp Metabolic Ujt148 BUN 18 mg/dL 08/11/2016 Comp Metabolic Vrq582 B/C Ratio 22.5 Ratio 08/11/2016 Comp Metabolic Exv890 CALCIUM 9.5 mg/dL 08/11/2016 Comp Metabolic Nsk068 ALK PHOS 104 U/L 08/11/2016 Comp Metabolic Ufh106 AST(SGOT) 16 U/L 08/11/2016 Comp Metabolic Ofy737 ALT(SGPT) 8 U/L 08/11/2016 Comp Metabolic Ids687 BILI T 0.4 mg/dL 08/11/2016 Comp Metabolic Kgb183 ALBUMIN 3.8 g/dL 08/11/2016 Comp Metabolic Ihg218 TPRO 8.4 g/dL 08/11/2016 Comp Metabolic Yyy056 GLOB 4.6 g/dL 08/11/2016 Comp Metabolic Ofn847 A/G Ratio 0.8 Ratio 08/11/2016 Comp Metabolic Fjb493 Osmo 266 mOsmo 08/11/2016 Culture Urine [id number] URINE CULTURE SEE NOTES 04/19/2016 Culture Urine [id number] Continued Results 04/19/2016 Urine Culture Ucult Complete >100,000 col/ml aerobic growth sent to ref lab 04/17/2016 Culture Urine [id number] URINE CULTURE SEE NOTES 02/13/2016 Culture Urine [id number] Continued Results 02/13/2016 Urine Culture Ucult Complete [...] Codes Date URINALYSIS NONAUTO W/O SCOPE CPT-4: 56786 02/16/2018 URINALYSIS NONAUTO W/O SCOPE CPT-4: 87740 11/14/2017 PPPS, SUBSEQ VISIT CPT -4: G0439 06/07/2017 URINALYSIS NONAUTO W/O SCOPE CPT-4: 34783 05/02/2017 URINALYSIS NONAUTO W/O SCOPE CPT-4: 62021 04/26/2017 PPPS, SUBSEQ VISIT CPT -4: G0439 06/01/2016 URINALYSIS NONAUTO W/O SCOPE CPT-4: 27145 04/16/2016 URINALYSIS NONAUTO W/O SCOPE CPT-4: 24327 02/10/2016 Vital Signs Date Vital 04/04/2018 Blood Pressure 1: 94/52 Code : 8480-6 Heart Rate 1: 120 bpm Height: 5'5" Respiratory Rate: 18 bpm SpO2: 98% Weight: 02/16/2018 Blood Pressure 1: 120/70 Code : 8480-6 BMI: 19.1 Code : 75312-8 Heart Rate 1 : 115 bpm Height: 5'5" SpO2: 97% Weight: 115 lbs 12/30/2017 Blood Pressure 1: 100/68 Code : 8480-6 BMI: 18.3 Code : 97782-8 Heart Rate 1 : 120 bpm Height: 5'5" SpO2: 94% Weight: 110 lbs 10/13/2017 Blood Pressure 1: 136/78 Code : 8480-6 BMI: 18.1 Code : 12120-7 Heart Rate 1 : 126 bpm Height: 5'5" SpO2: 96% Weight: 109 lbs 07/12/2017 Blood Pressure 1: 100/56 Code : 8480-6 BMI: 18.1 Code : 88186-3 Heart Rate 1 : 123 bpm Height: 5'5" SpO2: 99% Weight: 109 lbs 06/07/2017 Blood Pressure 1: 98/68 Code : 8480-6 BMI: 18.1 Code : 56949-3 Heart Rate 1 : 120 bpm Height: 5'5" SpO2: 99% Waist Measure (cm): 80 cm Weight: 109 lbs 05/24/2017 Blood Pressure 1: 104/62 Code : 8480-6 BMI: 18.1 Code : 54890-2 Heart Rate 1 : 121 bpm Height: 5'5" SpO2: 97% Weight: 109 lbs 04/27/2017 Blood Pressure 1: 132/84 Code : 8480-6 BMI: 17.8 Code : 42853-5 Heart Rate 1 : 129 bpm Height: 5'5" SpO2: 99% Weight: 107 lbs 04/13/2017 Blood Pressure 1: 100/66 Code : 8480-6 Heart Rate 1: 120 bpm Height: 5'5" SpO2: 99% Weight: 03/30/2017 Blood Pressure 1: 112/66 Code : 8480-6 BMI: 17.8 Code : 39839-0 Heart Rate 1 : 112 bpm Height: 5'5" SpO2: 98% Weight: 107 lbs 03/02/2017 Blood Pressure 1: 128/78 Code : 8480-6 BMI: 18.1 Code : 69759-6 Heart Rate 1 : 86 bpm Height: 5'5" SpO2: 95% Weight: 109 lbs 08/30/2016 Blood Pressure 1: 102/60 Code : 8480-6 BMI: 18.1 Code : 66415-0 Heart Rate 1 : 135 bpm Height: 5'5" SpO2: 98% Weight: 109 lbs 08/11/2016 Blood Pressure 1: 100/66 Code : 8480-6 BMI: 18.6 Code : 13528-1 Heart Rate 1 : 86 bpm Height: 5'5" SpO2: 94% Weight: 112 lbs 06/01/2016 Blood Pressure 1: 126/80 Code : 8480-6 BMI: 19.0 Code : 81355-3 Heart Rate 1 : 100 bpm Height: 5'5" SpO2: 98% Waist Measure (cm): 64 cm Weight: 114 lbs 04/16/2016 Blood Pressure 1: 124/80 Code : 8480-6 Heart Rate 1: 110 bpm SpO2: 97% 02/10/2016 Blood Pressure 1: 102/64 Code : 8480-6 BMI: 18.3 Code : 46290-8 Heart Rate 1 : 114 bpm Height: [...] Present Encounters Encounter Performer Location Codes Date ([id number]) 52949 EST. PATIENT, LEVEL III Diagnosis: Right upper quadrant abdominal rigidity[ICD10: R19.31] Diagnosis: Functional diarrhea[ICD10: K59.1] Diagnosis: Calculus of gallbladder without cholecystitis without obstruction[ ICD10: K80.20] [facility] CPT-4: 34159 04/04/2018 ([id number]) 91473 EST. PATIENT, LEVEL IV Diagnosis: Other epilepsy, not intractable, without status epilepticus[ICD10: G40.802] Diagnosis: Slow transit constipation[ICD10: K59.01] Diagnosis: Dysuria[ICD10: R30.0] Diagnosis: Age-related osteoporosis without current pathological fracture[ICD10 : M81.0] Magali Zepeda MD, [facility] CPT-4: 28670 2017 ([id number]) 99898 EST. PATIENT, LEVEL III Diagnosis: Slow transit constipation[ICD10: K59.01] Mishel Steve Zepeda MD, [facility] CPT-4: 93798 12/30/2017 ([id number]) 21246 EST. PATIENT, LEVEL IV Diagnosis: Other epilepsy, not intractable, without status epilepticus[ICD10: G40.802] Diagnosis: Slow transit constipation[ICD10: K59.01] Magali Zepeda MD, [facility] CPT-4: 35790 10/13/2017 ([id number]) 13711 EST. PATIENT, LEVEL III Diagnosis: Other epilepsy, not intractable, without status epilepticus[ICD10: G40.802] Diagnosis: Dysuria[ICD10: R30.0] Diagnosis: Mixed incontinence[ICD10: N39.46] Magali Zepeda MD, [facility] CPT-4: 31732 07/12/2017 ([id number]) 71214 EST. 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 PATIENT, LEVEL III Diagnosis: Other epilepsy, not intractable, without status epilepticus[ICD10: G40.802] Magali Zepeda MD, [facility] CPT-4: 13480 2016 ([id number]) 54341 EST. 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 PATIENT, LEVEL IV Diagnosis: Calculus of gallbladder without cholecystitis without obstruction[ ICD10: K80.20] Diagnosis: Benign paroxysmal vertigo, bilateral[ICD10: H81.13] Diagnosis: Slow transit constipation[ICD10: K59.01] Magali Zepeda MD, [facility] CPT-4: 44477 03/02/2017 ([id number]) 05730 EST. 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 PATIENT, LEVEL IV Diagnosis: Other epilepsy, not intractable, without status epilepticus[ICD10: G40.802] Diagnosis: Low back pain[ICD10: M54.5] Diagnosis: Pressure ulcer of sacral region, stage 1[ICD10: L89.151] Windy Zepeda MD, [facility] CPT-4: 13796 08/11/2016 ([id number]) 40081 EST. PATIENT, LEVEL III Diagnosis: Urinary tract infection, site not specified[ICD10: N39.0] Diagnosis: Slow transit constipation[ICD10: K59.01] [facility] CPT-4: 65375 04/16/2016 ([id number]) OFFICE VISIT, NEW - LEVEL 4 Diagnosis: Other abnormalities of gait and mobility[ICD10: R26.89] Diagnosis: Dysuria[ICD10: R30.0] Diagnosis: Rheumatoid arthritis without rheumatoid factor, multiple sites[ICD10 : M06.09] [facility] CPT-4: 83855 Plan of Care Planned Activity Notes Codes Status Date Appointment: [facility] [phone] [facility] [place] (15 min) Moderate 04/04/2018 Patient Education: Patient Medication Summary Completed 04/04/2018 Patient Education: Diarrhea Completed 04/04/2018 Appointment: [phone] [facility] [place] [place] (15 min) Moderate 02/16/2018 Patient Education: Patient Medication Summary Completed 02/16/2018 [facility]ment[facility] [phone] [phone] [place] (30 min) Complex 12/30/2017 Patient Education: Patient Medication Summary Completed 12/30/2017 Patient Education: Patient Medication Summary Completed 11/14/2017 Appointment: [facility]eda [facility] [phone] [facility] [place] [place] (15 min) Moderate 10/13/2017 Patient Education: Patient Medication Summary Completed 10/13/2017 Appointment: [facility]eda [facility] [phone] [facility] [place] [place] (15 min) Moderate 10/06/2017 Appointment: Lab Draw 07/15/2017 Appointment: Magali Zepeda WPtel: [phone] [facility] [place] (15 min) Moderate 07/12/2017 Patient Education: Patient Medication Summary Completed 07/12/2017 Appointment: Magali Zepeda WPtel: [phone] [facility] [place] (15 min) Moderate 07/05/2017 Appointment: [facility] [phone] [facility] [place] MCR - Annual Wellness Visit 06/07/2017 Patient Education: Patient Medication Summary Completed 06/07/2017 Appointment: [facility]eda [facility] [phone] [facility] (15 min) Moderate 05/24/2017 Patient Education: Patient Medication Summary Completed 05/24/2017 Appointment: Magali Zepeda WPtel: [phone] [facility] (15 min) Moderate 05/11/2017 Appointment: Lab Draw 05/02/2017 Patient Education: Patient Medication Summary Completed 05/02/2017 Appointment: Magali Zepeda WPtel: [phone] [facility] (15 min) Moderate 04/27/2017 Patient Education: Patient Medication Summary Completed 04/27/2017 Care Plan: Dilantin Ordered 04/27/2017 Appointment: Lab Draw 04/26/2017 Patient Education: Patient Medication Summary Completed 04/26/2017 Appointment: Magali Zepeda WPtel: [facility] [place] [place] (15 min) Moderate 04/13/2017 Patient Education: Patient Medication Summary Completed 04/13/2017 Appointment: Magali Zepeda WPtel: [facility] [place] (15 min) Moderate 03/30/2017 Patient Education: Patient Medication Summary Completed 03/30/2017 Patient Education: Patient Medication Summary Completed 03/30/2017 Appointment: Magali Zepeda [facility]Ptel[facility] [phone] [facility] [place] [place] (30 min) Complex 03/02/2017 Patient Education: Patient Medication Summary Completed 03/02/2017 Appointment: Magali Zepeda [facility]Ptel[facility] [phone] [facility] [place] [place] (30 min) Complex 08/30/2016 Patient Education: Patient Medication Summary Completed 08/30/2016 Appointment: Windy Greco WPtel: [facility] (30 min) Complex 08/11/2016 Patient Education: Patient Medication Summary Completed 08/11/2016 Appointment: Windy Greco WPtel: [facility] [place] - Annual Wellness Visit 06/01/2016 Patient Education: Patient Medication Summary Completed 06/01/2016 Appointment: Mishel Wilson WPtel: [phone] (15 min) Moderate 04/16/2016 Patient Education: Patient Medication Summary Completed 04/16/2016 Appointment: Magali Zepeda WPtel: [facility] New Patient 02/10/2016 Patient Education: Patient Medication Summary Completed 02/10/2016 Instructions No Instructions
--- OUTSIDE RECORDS SUMMARY | 2018-04-14 10:01 | XMS REPORT | Continuity of Care Document ---
Author Author [facility] Organization [facility] Address Unknown Phone Unavailable Allergies Active Description Code Type Severity Reaction Onset Reported/Identified Relationship to Patient Clinical Status Yes No Known Drug Allergies [id number] Drug Allergy Unknown N/A 04/10/2018 Medications Medication Packaging Start Date Stop Date [...] CAPSULE 04/10/2018 ORAL 300 MG DAILY DAILY Hydrocodone/Acetaminophen 5/325mg Tablet TAB 04/12/2018 ORAL 1 TAB Q6H EVERY 6 HOURS Problems Date Dx Coded Attending Type Code Diagnosis Diagnosed By 05/12/1204 MICHAEL LYNNE MD Ot M06.9 RHEUMATOID ARTHRITIS, UNSPECIFIED 05/12/1204 MICHAEL LYNNE MD Ot R26.9 UNSPECIFIED ABNORMALITIES OF GAIT AND MO 05/12/1358 JAMIE CASAREZ APRN Ot R42 DIZZINESS AND GIDDINESS 05/12/1358 JAMIE CASAREZ APRN Ot R53.1 WEAKNESS 11/26/2012 ANTONIA TALLEY 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 11/26/2012 ANTONIA TALLEY Ot 288.00 NEUTROPENIA, UNSPECIFIED 12/18/2012 JEANE NAGEL APRN Ot 780.4 DIZZINESS AND GIDDINESS 12/18/2012 NAGEL, JEANE A MARINE ELECTRICIAN APPRENTICE Ot 780.79 OTH MALAISE FATIGUE 12/18/2012 JEANE NAGEL MARINE ELECTRICIAN APPRENTICE Ot 783.21 LOSS OF WEIGHT 12/18/2012 JEANE NAGEL MARINE ELECTRICIAN APPRENTICE Ot V57.1 PHYSICAL THERAPY NEC 12/18/2012 JEANE NAGEL MARINE ELECTRICIAN APPRENTICE Ot V57.21 ENCOUNTER FOR OCCUPATIONAL THERAPY 12/18/2012 JEANE NAGEL MARINE ELECTRICIAN APPRENTICE Ot V58.49 OTHER SPECIFIED AFTERCARE FOLLOWING SURG 04/15/2013 MAYANK BOBAN N Ot 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 04/15/2013 MAYANK, BOBAN N Ot 288.50 LEUKOCYTOPENIA, UNSPECIFIED 04/15/2013 MAYANK, BOBAN N Ot 345.90 EPILEPSY UNSPEC W/O MENTION INTRACTABLE 04/15/2013 MAYANK, BOBAN N Ot 714.0 RHEUMATOID ARTHRITIS 04/15/2013 MAYANK, BOBAN N Ot 780.4 DIZZINESS AND GIDDINESS 04/15/2013 MAYANK BOBAN N Ot V58.69 OTH MED,LT,CURRENT USE 07/31/2013 MAYANK, [...] 04/25/2014 MAYANK, BOBAN N Ot V58.69 05/28/2014 MAYANKANTONIA BANDA N Ot 227.3 05/28/2014 MAYANKBREANA BANDABARAK N Ot 270.4 05/28/2014 MAYANK, BOBBARAK N Ot 273.1 05/28/2014 MAYANK, BOBAN N Ot 288.00 05/28/2014 MAYANK BOBAN N Ot 345.90 05/28/2014 MAYANKBREANA BANDABARAK N Ot 714.0 05/28/2014 ANTONIA TALLEY N Ot V58.69 06/19/2014 MAYANK BOBBARAK N Ot 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 06/19/2014 MAYANK, BOBAN N Ot 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 06/19/2014 MAYANK BOBBARAK N 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 06/19/2014 MAYANK BOBAN N Ot 288.00 NEUTROPENIA, UNSPECIFIED 06/19/2014 MAYANK ANTONIA N Ot 345.90 EPILEPSY UNSPEC W/O MENTION INTRACTABLE 06/19/2014 MAYANKANTONIA N Ot 714.0 RHEUMATOID ARTHRITIS 06/19/2014 ANTONIA TALLEY N Ot V58.69 OT MED,LT,CURRENT USE 11/29/2014 CAROLE ROSE ELECTRICAL FITTER Ot 288.00 11/29/2014 CAROLE ROSE ELECTRICAL FITTER Ot 288.50 11/29/2014 CAROLE ROSE ELECTRICAL FITTER Ot 564.00 11/29/2014 CAROLE ROSE ELECTRICAL FITTER Ot 714.0 11/29/2014 CAROLE ROSE ELECTRICAL FITTER Ot 714.1 11/29/2014 CAROLE ROSE ELECTRICAL FITTER Ot 733.90 11/29/2014 CAROLE ROSE ELECTRICAL FITTER Ot V58.65 11/29/2014 CAROLE ROSE ELECTRICAL FITTER Ot V58.69 04/03/2015 MAYANKANTONIA BANDA N Ot 227.3 04/03/2015 MAYANKANTONIA N Ot 270.4 04/03/2015 MAYANK BOBAN N Ot 273.1 04/03/2015 MAYANK, BOBAN N Ot 288.00 04/03/2015 MAYANK, BOBAN N Ot 345.90 04/03/2015 MAYANK, BOBBARAK N Ot 714.0 04/03/2015 MAYANK, BOBAN N [...] NONINFECTIVE GASTROENTERITIS AND COLITIS 06/03/2015 JUSTINE BULLOCK MARINE ELECTRICIAN APPRENTICE Ot 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 INTEST, PART UNSP, W/O PERF 06/03/2015 JUSTINE BULLOCK MARINE ELECTRICIAN APPRENTICE Ot K80.20 CALCULUS OF GALLBLADDER W/O CHOLECYSTITI [...] 06/24/2015 JUSTINE BULLOCK APRN Ot R19.7 07/30/2015 ANTONIA TALLEY Ot D72.819 DECREASED WHITE BLOOD CELL COUNT, UNSPEC 07/30/2015 ANTONIA TALLEY Ot R30.0 DYSURIA 07/30/2015 ANTONIA TALLEY Ot R39.15 URGENCY OF URINATION 07/30/2015 ANTONIA TALLEY Ot Z79.899 OTHER PRISON (CURRENT) DRUG THERAPY 10/31/2015 CAROLE ROSE ELECTRICAL FITTER Ot D70.9 NEUTROPENIA, UNSPECIFIED 11/21/2015 CAROLE ROSE ELECTRICAL FITTER Ot D70.9 NEUTROPENIA, UNSPECIFIED 11/25/2015 CAROLE ROSE ELECTRICAL FITTER Ot D70.9 NEUTROPENIA, UNSPECIFIED 03/12/2016 GUERA CUEVAS, [...] Ot 733.00 OSTEOPOROSIS NOS 03/17/2016 CAROLE ROSE ELECTRICAL FITTER Ot 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 03/17/2016 CAROLE ROSE ELECTRICAL FITTER Ot 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 03/17/2016 CAROLE ROSE ELECTRICAL FITTER Ot 288.50 LEUKOCYTOPENIA, UNSPECIFIED 03/17/2016 CAROLE ROSE ELECTRICAL FITTER Ot 345.90 EPILEPSY UNSPEC W/O MENTION INTRACTABLE 03/17/2016 CAROLE ROSE ELECTRICAL FITTER Ot 714.0 RHEUMATOID ARTHRITIS 03/17/2016 ROSE, HILAH S ELECTRICAL FITTER Ot 780.4 DIZZINESS AND GIDDINESS 03/17/2016 ROSECAROLE Torres S ELECTRICAL FITTER Ot V58.69 OTH MED,LT,CURRENT USE 03/17/2016 ANTONIA TALLEY Ot 574.10 CHOLELITH W CHOLECYS NEC 03/17/2016 ANTONIA TALLEY Ot 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 03/17/2016 LILIANE CUEVAS, ANDREI eMndez Ot V76.12 OTH SCREEN MAMMO-MALIGN NEOPLASM OF DANNY 03/17/2016 AVIS ROSEFIDE S ELECTRICAL FITTER Ot 288.00 NEUTROPENIA, UNSPECIFIED 03/17/2016 ROSE, CAROLE S ELECTRICAL FITTER Ot 288.50 LEUKOCYTOPENIA, UNSPECIFIED 03/17/2016 CAROLE ROSE S ELECTRICAL FITTER Ot 574.10 CHOLELITH W CHOLECYS NEC 03/17/2016 ROSE CAROLE S ELECTRICAL FITTER Ot 714.0 RHEUMATOID ARTHRITIS 03/17/2016 ROSE CAROLE S ELECTRICAL FITTER Ot 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 03/17/2016 CAROLE ROSE S ELECTRICAL FITTER Ot V58.69 OTH MED,LT,CURRENT USE 03/17/2016 ROSE CAROLE S ELECTRICAL FITTER Ot 288.00 NEUTROPENIA, UNSPECIFIED 03/17/2016 ROSE CAROLE S ELECTRICAL FITTER Ot 288.50 LEUKOCYTOPENIA, UNSPECIFIED 03/17/2016 ROSE CAROLE S ELECTRICAL FITTER Ot 564.00 UNSPEC CONSTIPATION 03/17/2016 ROSE CAROLE S ELECTRICAL FITTER Ot 714.0 RHEUMATOID ARTHRITIS 03/17/2016 CAROLE ROSE S ELECTRICAL FITTER Ot 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 03/17/2016 AVIS ROSEFIDE S ELECTRICAL FITTER Ot 733.90 BONE CARTILAGE DIS NOS 03/17/2016 AVIS ROSEFIDE S ELECTRICAL FITTER Ot V58.65 LONG-TERM(CURRENT)USE OF STEROIDS 03/17/2016 CAROLE ROSE S ELECTRICAL FITTER Ot V58.69 OTH MED,LT,CURRENT USE 03/17/2016 DANNIE CUEVAS, BRIANNA Rajput Ot G40.909 EPILEPSY, UNSP, NOT INTRACTABLE, WITHOUT 03/17/2016 JUSTINE BULLOCK APRN Ot R19.7 DIARRHEA, UNSPECIFIED 03/17/2016 ANTONIA TALLEY Ot 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 03/17/2016 MAYANK, BOBAN N Ot 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 03/17/2016 ANTONIA TALLEY N 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 03/17/2016 ANTONIA [...] 03/17/2016 ANTONIA TALLEY N Ot Z79.899 OTHER PRISON (CURRENT) DRUG THERAPY 03/17/2016 CAROLE ROSEP Ot D70.9 NEUTROPENIA, UNSPECIFIED 03/17/2016 GUERA CUEVAS, MICHAEL Hendrix Ot M06.9 RHEUMATOID ARTHRITIS, UNSPECIFIED 03/17/2016 GUERA CUEVAS, MICHAEL Hendrix Ot R26.81 UNSTEADINESS ON FEET 03/17/2016 GUERA CUEVAS, MICHAEL Hendrix Ot M06.9 RHEUMATOID ARTHRITIS, UNSPECIFIED 03/17/2016 GUERA CUEVAS, MICHAEL A Ot R26.81 UNSTEADINESS ON FEET 04/22/2016 GUERA CUEVAS, MICHAEL Hendrix Ot M06.9 RHEUMATOID ARTHRITIS, UNSPECIFIED 04/22/2016 GUERA CUEVAS, MICHAEL A Ot R26.9 UNSPECIFIED ABNORMALITIES OF GAIT AND MO 09/09/2016 JAMIE CASAREZ MARINE ELECTRICIAN APPRENTICE Ot M54.5 LOW BACK PAIN 09/10/2016 JAMIE CASAREZ MARINE ELECTRICIAN APPRENTICE Ot M54.5 LOW BACK PAIN 10/31/2016 CAROLE ROSEP Ot D70.9 NEUTROPENIA, UNSPECIFIED 10/31/2016 CAROLE ROSEP Ot D70.9 NEUTROPENIA, UNSPECIFIED 10/31/2016 CAROLE ROSEP Ot D70.9 NEUTROPENIA, UNSPECIFIED 11/05/2016 ANTONIA TALLEY N Ot 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 11/05/2016 ANTONIA TALLEY N Ot 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 11/05/2016 ANTONIA TALLEY N 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 11/05/2016 ANTONIA TALLEY Eugene Ot 288.00 NEUTROPENIA, UNSPECIFIED 11/05/2016 ANTONIA TALLEY N Ot 345.90 EPILEPSY UNSPEC W/O MENTION INTRACTABLE 11/05/2016 ANTONIA TALLEY Eugene Ot 714.0 RHEUMATOID ARTHRITIS 11/05/2016 ANTONIA TALLEY N Ot D72.819 DECREASED WHITE BLOOD CELL COUNT, UNSPEC 11/05/2016 ANTONIA TALLEY N Ot R30.0 DYSURIA 11/05/2016 ANTONIA TALLEY N Ot R39.15 URGENCY OF URINATION 11/05/2016 ANTONIA TALLEY Eugene Ot V58.69 OTH MED,LT,CURRENT USE 11/05/2016 ANTONIA TALLEY N Ot Z79.899 OTHER PRISON (CURRENT) DRUG THERAPY 12/10/2016 ANTONIA TALLEY N Ot D35.2 BENIGN NEOPLASM OF PITUITARY GLAND 12/10/2016 ANTONIA TALLEY N Ot D64.9 ANEMIA, UNSPECIFIED 12/10/2016 ANTONIA TALLEY N Ot D72.819 DECREASED WHITE BLOOD CELL COUNT, UNSPEC 12/10/2016 ANTONIA TALLEY N Ot 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 12/10/2016 ANTONIA TALLEY N Ot M06.9 RHEUMATOID ARTHRITIS, UNSPECIFIED 12/10/2016 ANTONIA TALLEY N Ot R56.9 UNSPECIFIED CONVULSIONS 12/10/2016 ANTONIA TALLEY N Ot Z79.899 OTHER PRISON (CURRENT) DRUG THERAPY 12/21/2016 ANTONIA TALLEY N Ot D35.2 BENIGN NEOPLASM OF PITUITARY GLAND 12/21/2016 ANTONIA TALLEY N Ot D64.9 ANEMIA, UNSPECIFIED 12/21/2016 ANTONIA TALLEY N Ot D72.819 DECREASED WHITE BLOOD CELL COUNT, UNSPEC 12/21/2016 MAYANK BREANABARAK N Ot 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 12/21/2016 ANTONIA TALLEY N Ot M06.9 RHEUMATOID ARTHRITIS, UNSPECIFIED 12/21/2016 MAYANKANTONIA BANDA N Ot R56.9 UNSPECIFIED CONVULSIONS 12/21/2016 MAYANK BREANABARAK N Ot Z79.899 OTHER PRISON (CURRENT) DRUG THERAPY 01/21/2017 MAYANKANTONIA N Ot D35.2 BENIGN NEOPLASM OF PITUITARY GLAND 01/21/2017 MAYANKANTONIA N Ot D64.9 ANEMIA, UNSPECIFIED 01/21/2017 MAYANK, BOBAN N Ot D72.819 DECREASED WHITE BLOOD CELL COUNT, UNSPEC 01/21/2017 MAYANKANTONIA N Ot 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 01/21/2017 MAYANKANTONIA N Ot M06.9 RHEUMATOID ARTHRITIS, UNSPECIFIED 01/21/2017 MAYANK, BOBBARAK N Ot R56.9 UNSPECIFIED CONVULSIONS 01/21/2017 MAYANK, BOBAN N Ot Z79.899 OTHER SUPERVISOR EPOXY FABRICATION (CURRENT) DRUG THERAPY 02/02/2017 ANTONIA TALLEY N Ot D35.2 BENIGN NEOPLASM OF PITUITARY GLAND 02/02/2017 ANTONIA TALLEY N Ot D64.9 ANEMIA, UNSPECIFIED 02/02/2017 MAYANK, BOBBARAK N Ot D72.819 DECREASED WHITE BLOOD CELL COUNT, UNSPEC 02/02/2017 MAYANK BOBBARAK N Ot 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 02/02/2017 MAYANK BOBBARAK N Ot M06.9 RHEUMATOID ARTHRITIS, UNSPECIFIED 02/02/2017 MAYANK, BOBAN N Ot R56.9 UNSPECIFIED CONVULSIONS 02/02/2017 MAYANK, BOBAN N Ot Z79.899 OTHER SUPERVISOR EPOXY FABRICATION (CURRENT) DRUG THERAPY 02/08/2017 MAYANK BOBBARAK N Ot D35.2 BENIGN NEOPLASM OF PITUITARY GLAND 02/08/2017 MAYANK BOBBARAK N Ot D64.9 ANEMIA, UNSPECIFIED 02/08/2017 MAYANK, BOBAN N Ot D72.819 DECREASED WHITE BLOOD CELL COUNT, UNSPEC 02/08/2017 MAYANK BOBAN N Ot 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 02/08/2017 MAYANK, BOBAN N Ot M06.9 RHEUMATOID ARTHRITIS, UNSPECIFIED 02/08/2017 MAYANK, BOBAN N Ot R56.9 UNSPECIFIED CONVULSIONS 02/08/2017 MAYANK, BOBAN N Ot Z79.899 OTHER SUPERVISOR EPOXY FABRICATION (CURRENT) DRUG THERAPY 03/04/2017 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 03/04/2017 Ot 714.0 RHEUMATOID ARTHRITIS 03/04/2017 Ot 733.00 OSTEOPOROSIS NOS 03/04/2017 ROSE, HILAH S ELECTRICAL FITTER Ot 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 03/04/2017 CAROLE ROSE ELECTRICAL FITTER Ot 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 03/04/2017 CAROLE ROSE ELECTRICAL FITTER Ot 288.50 LEUKOCYTOPENIA, UNSPECIFIED 03/04/2017 CAROLE ROSE ELECTRICAL FITTER Ot 345.90 EPILEPSY UNSPEC W/O MENTION INTRACTABLE 03/04/2017 CAROLE ROSE ELECTRICAL FITTER Ot 714.0 RHEUMATOID ARTHRITIS 03/04/2017 CAROLE ROSE ELECTRICAL FITTER Ot 780.4 DIZZINESS AND GIDDINESS 03/04/2017 CAROLE ROSE ELECTRICAL FITTER Ot V58.69 OTH MED,LT,CURRENT USE 03/04/2017 ANTONIA TALLEY Ot 574.10 CHOLELITH W CHOLECYS NEC 03/04/2017 ANTONIA TALLEY Ot 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 03/04/2017 LILIANE CUEVAS, ANDREI Mendez Ot V76.12 OTH SCREEN MAMMO-MALIGN NEOPLASM OF DANNY 03/04/2017 CAROLE ROSE ELECTRICAL FITTER Ot 288.00 NEUTROPENIA, UNSPECIFIED 03/04/2017 CAROLE ROSE ELECTRICAL FITTER Ot 288.50 LEUKOCYTOPENIA, UNSPECIFIED 03/04/2017 CAROLE ROSEP Ot 574.10 CHOLELITH W CHOLECYS NEC 03/04/2017 CAROLE ROSE ELECTRICAL FITTER Ot 714.0 RHEUMATOID ARTHRITIS 03/04/2017 CAROLE ROSE ELECTRICAL FITTER Ot 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 03/04/2017 CAROLE ROSEP Ot V58.69 OTH MED,LT,CURRENT USE 03/04/2017 CAROLE ROSE ELECTRICAL FITTER Ot 288.00 NEUTROPENIA, UNSPECIFIED 03/04/2017 CAROLE ROSE ELECTRICAL FITTER Ot 288.50 LEUKOCYTOPENIA, UNSPECIFIED 03/04/2017 CAROLE ROSE ELECTRICAL FITTER Ot 564.00 UNSPEC CONSTIPATION 03/04/2017 CAROLE ROSE ELECTRICAL FITTER Ot 714.0 RHEUMATOID ARTHRITIS 03/04/2017 CAROLE ROSE ELECTRICAL FITTER Ot 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 03/04/2017 CAROLE ROSE ELECTRICAL FITTER Ot 733.90 BONE CARTILAGE DIS NOS 03/04/2017 CAROLE ROSE ELECTRICAL FITTER Ot V58.65 LONG-TERM(CURRENT)USE OF STEROIDS 03/04/2017 CAROLE ROSE ELECTRICAL FITTER Ot V58.69 OTH MED,LT,CURRENT USE 03/04/2017 BRIANNA PANDEY MD Ot G40.909 EPILEPSY, UNSP, NOT INTRACTABLE, WITHOUT 03/04/2017 JUSTINE BULLOCK MARINE ELECTRICIAN APPRENTICE Ot R19.7 DIARRHEA, UNSPECIFIED 03/04/2017 CAROLE ROSE ELECTRICAL FITTER Ot D70.9 NEUTROPENIA, UNSPECIFIED 03/04/2017 JAMIE CASAREZ MARINE ELECTRICIAN APPRENTICE Ot M54.5 LOW BACK PAIN 03/04/2017 MAYANK ANTONIA N Ot D35.2 BENIGN NEOPLASM OF PITUITARY GLAND 03/04/2017 ANTONIA TALLEY N Ot D64.9 ANEMIA, UNSPECIFIED 03/04/2017 MAYANK ANTONIA N Ot D72.819 DECREASED WHITE BLOOD CELL COUNT, UNSPEC 03/04/2017 MAYANK BREANABARAK N Ot 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 03/04/2017 MAYANK BOBBARAK N Ot M06.9 RHEUMATOID ARTHRITIS, UNSPECIFIED 03/04/2017 MAYANK BOBBARAK N Ot R56.9 UNSPECIFIED CONVULSIONS 03/04/2017 MAYANK BOBAN N Ot Z79.899 OTHER PRISON (CURRENT) DRUG THERAPY 03/15/2017 MICHAEL LYNNE MD [...] Z79.890 HORMONE REPLACEMENT THERAPY 04/05/2017 MICHAEL LYNNE MD, Ot Z79.899 OTHER PRISON (CURRENT) DRUG THERAPY 04/05/2017 MICHAEL LYNNE MD Ot Z86.79 PERSONAL HISTORY OF OTHER DISEASES OF 04/12/2017 MICHAEL LYNNE MD Ot E78.00 PURE HYPERCHOLESTEROLEMIA, UNSPECIFIED 04/12/2017 MICHAEL LYNNE MD Ot G40.909 EPILEPSY, UNSP, NOT INTRACTABLE, WITHOUT 04/12/2017 MICHAEL LYNNE MD Ot J44.9 CHRONIC OBSTRUCTIVE PULMONARY DISEASE, U 04/12/2017 MICHAEL LYNNE MD, Ot M47.812 SPONDYLOSIS W/O MYELOPATHY OR RADICULOPA [...] OTHER EXTERNAL CAUSE STATUS 04/12/2017 MICHAEL LYNNE MD Ot Z79.890 HORMONE REPLACEMENT THERAPY 04/12/2017 MICHAEL LYNNE MD Ot Z79.899 OTHER SUPERVISOR EPOXY FABRICATION (CURRENT) DRUG THERAPY 04/12/2017 GUERA CUEVAS, MICHAEL Hendrix Ot Z86.79 PERSONAL HISTORY OF OTHER DISEASES OF TH 05/03/2017 GUERA CUEVAS, MICHAEL Hendrix Ot R42 DIZZINESS AND GIDDINESS 05/03/2017 MICHAEL LYNNE MD Ot R53.1 WEAKNESS 05/20/2017 JAMIE CASAREZ MARINE ELECTRICIAN APPRENTICE Ot R42 DIZZINESS AND GIDDINESS 05/20/2017 JAMIE CASAREZ MARINE ELECTRICIAN APPRENTICE Ot R53.1 WEAKNESS 07/11/2017 HERMELINDO JAMIE Hurtado MARINE ELECTRICIAN APPRENTICE Ot R42 DIZZINESS AND GIDDINESS 07/11/2017 HERMELINDO JAMIE Bryant MARINE ELECTRICIAN APPRENTICE Ot R53.1 WEAKNESS 07/12/2017 JAMIE CASAREZ Bryant MARINE ELECTRICIAN APPRENTICE Ot R42 DIZZINESS AND GIDDINESS 07/12/2017 JAMIE CASAREZ Bryant MARINE ELECTRICIAN APPRENTICE Ot R53.1 WEAKNESS 08/04/2017 HERMELINDO JAIME Bryant MARINE ELECTRICIAN APPRENTICE Ot R42 DIZZINESS AND GIDDINESS 08/04/2017 JAMIE CASAREZ Brynat MARINE ELECTRICIAN APPRENTICE Ot R53.1 WEAKNESS 08/08/2017 HERMELINDO JAMIE Hurtado MARINE ELECTRICIAN APPRENTICE Ot R42 DIZZINESS AND GIDDINESS 08/08/2017 HERMELINDO JAMIE Hurtado MARINE ELECTRICIAN APPRENTICE Ot R53.1 WEAKNESS 12/02/2017 MAYANK BOBAN N Ot D35.2 BENIGN NEOPLASM OF PITUITARY GLAND 12/02/2017 MAYANK BOBAN N Ot D64.9 ANEMIA, UNSPECIFIED 12/02/2017 MAYANK BOBAN N Ot D72.819 DECREASED WHITE BLOOD CELL COUNT, UNSPEC 12/02/2017 MAYANK, BOBAN N Ot 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 12/02/2017 MAYANK BOBBARAK N Ot M06.9 RHEUMATOID ARTHRITIS, UNSPECIFIED 12/02/2017 MAYANK BOBAN N Ot R56.9 UNSPECIFIED CONVULSIONS 12/02/2017 MAYANK, BOBAN N Ot Z79.899 OTHER SUPERVISOR EPOXY FABRICATION (CURRENT) DRUG THERAPY 12/06/2017 MAYANK, BOBAN N Ot D35.2 BENIGN NEOPLASM OF PITUITARY GLAND 12/06/2017 MAYANK BOBAN N Ot D64.9 ANEMIA, UNSPECIFIED 12/06/2017 MAYANK, BOBAN N Ot D72.819 DECREASED WHITE BLOOD CELL COUNT, UNSPEC 12/06/2017 MAYANK, BOBAN N Ot 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 12/06/2017 BREANA TALLEYAN N Ot M06.9 RHEUMATOID ARTHRITIS, UNSPECIFIED 12/06/2017 MAYANK, BOBAN N Ot R56.9 UNSPECIFIED CONVULSIONS 12/06/2017 MAYANK, BOBAN N Ot Z79.899 OTHER SUPERVISOR EPOXY FABRICATION (CURRENT) DRUG THERAPY 02/07/2018 MAYANKBREANA BANDAAN N Ot D35.2 BENIGN NEOPLASM OF PITUITARY GLAND 02/07/2018 MAYANKANTONIA BANDA N Ot D47.2 MONOCLONAL GAMMOPATHY 02/07/2018 MAYANK, BOBAN N Ot D64.9 ANEMIA, UNSPECIFIED 02/07/2018 MAYANK, BOBAN N Ot D72.819 DECREASED WHITE BLOOD CELL COUNT, UNSPEC 02/07/2018 MAYANK, BOBAN N Ot 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 02/07/2018 MAYANK, BOBAN N Ot M06.9 RHEUMATOID ARTHRITIS, UNSPECIFIED 02/07/2018 MAYANK, BREANAAN N Ot M85.80 OTH DISRD OF BONE DENSITY AND STRUCTURE, 02/07/2018 MAYANK, BOBAN N Ot R56.9 UNSPECIFIED CONVULSIONS 02/07/2018 MAYANK, BOBAN N Ot Z79.899 OTHER PRISON (CURRENT) DRUG THERAPY 04/07/2018 PATTI CUEVAS, CATIE Hurtado Ot Z01.818 ENCOUNTER FOR OTHER PREPROCEDURAL EXAMIN 04/10/2018 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 04/10/2018 MAYANK, BOBAN N Ot D35.2 BENIGN NEOPLASM OF PITUITARY GLAND 04/10/2018 MAYANK, BOBAN N Ot D64.9 ANEMIA, UNSPECIFIED 04/10/2018 MAYANK, BOBAN N Ot D72.819 DECREASED WHITE BLOOD CELL COUNT, UNSPEC 04/10/2018 MAYANK, BOBAN N Ot 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 04/10/2018 MYAANK, BOBAN N Ot M06.9 RHEUMATOID ARTHRITIS, UNSPECIFIED 04/10/2018 MAYANK, BOBAN N Ot R56.9 UNSPECIFIED CONVULSIONS 04/10/2018 MAYANK, BOBAN N Ot Z79.899 OTHER PRISON (CURRENT) DRUG THERAPY 04/10/2018 PATTI CUEVAS, CATIE Hurtado Ot Z01.818 ENCOUNTER FOR OTHER PREPROCEDURAL EXAMIN 04/12/2018 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 04/12/2018 ROSE, HILAH S ELECTRICAL FITTER Ot 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 04/12/2018 CAROLE ROSE ELECTRICAL FITTER Ot 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 04/12/2018 CAROLE ROSE ELECTRICAL FITTER Ot 288.50 LEUKOCYTOPENIA, UNSPECIFIED 04/12/2018 CAROLE ROSE ELECTRICAL FITTER Ot 345.90 EPILEPSY UNSPEC W/O MENTION INTRACTABLE 04/12/2018 CAROLE ROSE ELECTRICAL FITTER Ot 714.0 RHEUMATOID ARTHRITIS 04/12/2018 CAROLE ROSE ELECTRICAL FITTER Ot 780.4 DIZZINESS AND GIDDINESS 04/12/2018 CAROLE ROSE ELECTRICAL FITTER Ot V58.69 OTH MED,LT,CURRENT USE 04/12/2018 ANTONIA TALLEY Ot 574.10 CHOLELITH W CHOLECYS NEC 04/12/2018 ANTONIA TALLEY Ot 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 04/12/2018 LILIANE CUEVAS, ANDREI Mendez Ot V76.12 OTH SCREEN MAMMO-MALIGN NEOPLASM OF DANNY 04/12/2018 CAROLE ROSE ELECTRICAL FITTER Ot 288.00 NEUTROPENIA, UNSPECIFIED 04/12/2018 CAROLE ROSE ELECTRICAL FITTER Ot 288.50 LEUKOCYTOPENIA, UNSPECIFIED 04/12/2018 CAROLE ROSE ELECTRICAL FITTER Ot 574.10 CHOLELITH W CHOLECYS NEC 04/12/2018 CAROLE ROSE ELECTRICAL FITTER Ot 714.0 RHEUMATOID ARTHRITIS 04/12/2018 CAROLE ROSE ELECTRICAL FITTER Ot 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 04/12/2018 CAROLE ROSE ELECTRICAL FITTER Ot V58.69 OTH MED,LT,CURRENT USE 04/12/2018 CAROLE ROSE ELECTRICAL FITTER Ot 288.00 NEUTROPENIA, UNSPECIFIED 04/12/2018 CAROLE ROSE ELECTRICAL FITTER Ot 288.50 LEUKOCYTOPENIA, UNSPECIFIED 04/12/2018 CAROLE ROSE ELECTRICAL FITTER Ot 564.00 UNSPEC CONSTIPATION 04/12/2018 CAROLE ROSE ELECTRICAL FITTER Ot 714.0 RHEUMATOID ARTHRITIS 04/12/2018 CAROLE ROSE ELECTRICAL FITTER Ot 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 04/12/2018 CAROLE ROSE ELECTRICAL FITTER Ot 733.90 BONE CARTILAGE DIS NOS 04/12/2018 CAROLE ROSE ELECTRICAL FITTER Ot V58.65 LONG-TERM(CURRENT)USE OF STEROIDS 04/12/2018 CAROLE ROSE ELECTRICAL FITTER Ot V58.69 OTH MED,LT,CURRENT USE 04/12/2018 DANNIE CUEVAS, BRIANNA Rajput Ot G40.909 EPILEPSY, UNSP, NOT INTRACTABLE, WITHOUT 04/12/2018 JUSTINE BULLOCK MARINE ELECTRICIAN APPRENTICE Ot R19.7 DIARRHEA, UNSPECIFIED 04/12/2018 CAROLE ROSE ELECTRICAL FITTER Ot D70.9 NEUTROPENIA, UNSPECIFIED 04/12/2018 JAMIE CASAREZ MARINE ELECTRICIAN APPRENTICE Ot M54.5 LOW BACK PAIN 04/12/2018 GUERA CUEVAS, MICHAEL Hendrix Ot K80.20 CALCULUS OF GALLBLADDER W/O CHOLECYSTITI 04/12/2018 ANTONIA TALLEY Ot D35.2 BENIGN NEOPLASM OF PITUITARY GLAND 04/12/2018 ANTONIA TALLEY Ot D64.9 ANEMIA, UNSPECIFIED 04/12/2018 ANTONIA TALLEY Ot D72.819 DECREASED WHITE BLOOD CELL COUNT, UNSPEC 04/12/2018 ANTONIA TALLEY Ot 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 04/12/2018 ANTONIA TALLEY N Ot M06.9 RHEUMATOID ARTHRITIS, UNSPECIFIED 04/12/2018 ANTONIA TALLEY N Ot R56.9 UNSPECIFIED CONVULSIONS 04/12/2018 ANTONIA TALLEY Ot Z79.899 OTHER SUPERVISOR EPOXY FABRICATION (CURRENT) DRUG THERAPY 04/12/2018 PATTI CUEVAS, CATIE Hurtado Ot Z01.818 ENCOUNTER [...] (mass/volume) 3.6 g/dL 3.2-4.5 Magnesium - 04/02/17 22:27 Magnesium 2.0 mg/dL 1.8-2.4 Serum or plasma creatine kinase measurement (enzymatic activity/volume) - 04/02 22:27 Serum or plasma creatine kinase measurement (enzymatic activity/volume) 40 U/L 29-168 PT panel in platelet poor plasma by coagulation assay - 04/02/17 22:27 Prothrombin time (PT) in platelet poor plasma by coagulation assay 11.7 s 12.2-14.7 INR in platelet poor plasma or blood by coagulation assay 0.9 0.8-1.4 Activated partial thromboplastin time (aPTT) in platelet poor plasma bycoagulation assay - 04/02/17 22:27 Activated partial thromboplastin time (aPTT) in platelet poor plasma bycoagulation assay 27 s 24-35 Serum or plasma lithium measurement (moles/volume) - 04/02/17 22:27 BNP level 19.1 pg/mL <100.0 Serum or plasma creatine kinase MB measurement (enzymatic activity/volume) - 22:27 Serum or plasma creatine kinase MB measurement (enzymatic activity/volume) 1.7 ng/mL <6.6 Serum or plasma thyrotropin measurement by detection limit <=0.05 miu/l (units/ volume) - 04/02/17 22:27 Serum or plasma thyrotropin measurement by detection limit <=0.05 miu/l (units/ volume) 1.97 u[iU]/mL 0.35-4.94 Serum or plasma troponin i.cardiac measurement (mass/volume) - 04/02/17 22:27 Serum or plasma troponin i.cardiac measurement (mass/volume) < ng/ mL <0.30 Serum or plasma phenytoin measurement (mass/volume) - 04/02/17 22:27 Serum or plasma phenytoin measurement (mass/volume) 8.9 ug/mL 10.0-20.0 Serum or plasma thyrotropin measurement by detection limit <=0.05 miu/l (units/ volume) - 04/02/17 22:27 Serum or plasma thyrotropin measurement by detection limit <=0.05 miu/l (units/ volume) 1.97 u[iU]/mL 0.35-4.94 Serum or plasma phenytoin measurement (mass/volume) - 04/02/17: Serum or plasma phenytoin measurement (mass/volume) 8.9 ug/mL 10.0-20.0 Valproic acid - 04/02/17 22: Valproic acid < ug/mL 50.0-100.0 Complete urinalysis [...] culture - 04/03/17 01:25 Bacterial urine culture [id number] NRG COLONY COUNT >100,000/ML NRG FTX;REPORTABLE SENSITIIVITY REPORTED AT 0914, 04-04-17 NR FREE TEXT ENTRY 3 MIXED GRAM POSITIVE EDDA <10,000/ML NRG Bacterial susceptibility panel - 04/03/17 01:25 Gentamicin [...] 04/05/17 05:32 Lamotrigine level 3.1 % 2.5-15.0 Methicillin resistant Staphylococcus aureus (MRSA) screening culture - 10:21 Methicillin resistant Staphylococcus aureus (MRSA) screening culture NEG NRG Encounters ACCT No. Visit Date/Time Discharge Status Pt. Type Provider Facility Loc./Unit Complaint [id number] 04/12/2018 09:41:00 04/13/2018 08:30:00 DIS Outpatient CATIE ARMSTRONG MD [facility] SDC [place] [id number] 04/10/2018 10:45:00 04/10/2018 23:59:59 CLS Preadmit CATIE ARMSTRONG MD [facility] ENDO SCREENING [id number] 04/10/2018 05:47:00 04/10/2018 13:36:00 DIS Outpatient CATIE ARMSTRONG MD [facility] PREOP [place] [id number] 04/06/2018 06:11:00 04/06/2018 23:59:59 CLS Outpatient CATIE ARMSTRONG MD [facility] PREOP COLONOSCOPY [id number] 02/08/2018 00:09:00 02/08/2018 23:59:59 CLS Preadmit ANTONIA TALLEY [facility] ONC [id number] 11/09/2017 09:53:00 02/07/2018 00:01:00 DIS Outpatient ANTONIA TALLEY [facility] ONC [id number] 06/17/2017 14:39:00 08/08/2017 13:59:00 DIS Outpatient JAMIE CASAREZ APRN [facility] REHAB [place]; WEAKNESS [id number] 03/29/2017 14:31:00 05/03/2017 11:39:00 DIS Outpatient MICHAEL LYNNE MD [facility] REHAB [place];WEAKNESS [id number] 04/02/2017 22:19:00 04/05/2017 13:05:00 DIS Inpatient MICHAEL LYNNE MD [facility] 4TH SEIZURE DISORDER; HEAD/ FACIAL CONTUSIONS [id number] 03/04/2017 08:23:00 03/04/2017 23:59:59 CLS Outpatient MICHAEL LYNNE MD [facility] RAD [place] [id number] 11/04/2016 09:24:00 02/02/2017 00:01:00 DIS Outpatient ANTONIA TALLEY [facility] ONC [id number] 08/11/2016 14:27:00 08/11/2016 23:59:59 CLS Outpatient JAMIE CASAREZ MARINE ELECTRICIAN APPRENTICE [facility] RAD LOW BACK/BUTTOCKS PAIN [id number] 04/22/2016 09:00:00 04/22/2016 12:05:00 DIS Outpatient MICHAEL LYNNE MD [facility] REHAB GAIT INSTABILITY; RA [id number] 03/11/2016 11:07:00 03/12/2016 17:00:00 DIS Outpatient MICHAEL LYNNE MD [facility] REHAB GAIT INSTABILITY; RA [id number] 10/30/2015 14:20:00 10/30/2015 23:59:59 CLS Outpatient CAROLE ROSE ELECTRICAL FITTER [facility] ONC [id number] 05/01/2015 09:25:00 07/30/2015 00:01:00 DIS Outpatient ANTONIA TALLEY [facility] ONC [id number] 06/04/2015 09:53:00 06/04/2015 23:59:59 CLS Outpatient JUSTINE BULLOCK MARINE ELECTRICIAN APPRENTICE [facility] LAB DIARRHEA [id number] 06/03/2015 10:37:00 06/03/2015 14:59:00 DIS Emergency JUSTINE BULLOCK MARINE ELECTRICIAN APPRENTICE [facility] ER DIARRHEA [id number] 05/01/2015 10:05:00 05/01/2015 23:59:59 CLS Outpatient BRIANNA PANDEY MD [facility] LAB [id number] 09/20/2014 12:42:00 09/20/2014 23:59:59 CLS Outpatient CAROLE ROSE ELECTRICAL FITTER [facility] ONC [id number] 03/21/2014 13:00:00 06/19/2014 00:01:00 DIS Outpatient ANTONIA TALLEY [facility] ONC [id number] 12/11/2013 14:25:00 12/11/2013 23:59:59 CLS Outpatient CAROLE ROSE ELECTRICAL FITTER [facility] ONC [id number] 09/10/2013 10:22:00 12/09/2013 00:01:00 DIS Outpatient ANTONIA TALLEY [facility] ONC [id number] 12/04/2013 07:26:00 12/04/2013 23:59:59 CLS Outpatient ANTONIA TALLEY [facility] RAD SFLT SYNDROME [id number] 11/29/2013 10:40:00 11/29/2013 23:59:59 CLS Outpatient ANDREI MOMIN MD [facility] RAD SCREENING [id number] 05/02/2013 13:07:00 07/31/2013 00:01:00 DIS Outpatient ANTONIA TALLEY [facility] ONC [id number] 04/30/2013 14:22:00 04/30/2013 23:59:59 CLS Outpatient CAROLE ROSE ELECTRICAL FITTER [facility] ONC [id number] 01/15/2013 12:46:00 04/15/2013 00:01:00 DIS Outpatient ANTONIA TALLEY [facility] ONC [id number] 11/28/2012 09:00:00 12/18/2012 00:01:00 DIS Outpatient JEANE NAGEL APRN [facility] REHAB S/P BRAIN SURGERY [id number] 10/26/2012 11:19:00 11/26/2012 00:01:00 DIS Outpatient ANTONIA TALLEY [facility] ONC [id number] 04/14/2018 09:45:00 ACT Inpatient PATTI CUEVAS, CATIE Hurtado [facility] 4TH POST OP N/VOMITING [id number] 04/14/2018 04:59:50 Document Registration [id number] 04/13/2018 04:59:50 Document Registration [id number] 04/12/2018 04:59:47 Document Registration [id number] 04/11/2018 04:59:47 Document Registration [id number] 04/10/2018 04:59:48 Document Registration [id number] 04/09/2018 04:59:49 Document Registration [id number] 04/08/2018 04:59:48 Document Registration [id number] 04/07/2018 04:59:48 Document Registration [id number] 04/06/2018 04:59:47 Document Registration [id number] 04/05/2018 04:59:47 Document Registration [id number] 04/04/2018 04:59:47 Document Registration [id number] 04/04/2018 04:59:46 Document Registration [id number] 04/03/2018 04:59:47 Document Registration [id number] 04/02/2018 04:59:48 Document Registration [id number] 04/01/2018 04:59:47 Document Registration [id number] 03/30/2018 04:59:48 Document Registration [id number] 03/29/2018 04:59:48 Document Registration [id number] 03/28/2018 04:59:48 Document Registration [id number] 03/26/2018 04:59:48 Document Registration [id number] 03/25/2018 04:59:48 Document Registration [id number] 03/24/2018 04:59:49 Document Registration [id number] 03/23/2018 04:59:48 Document Registration [id number] 03/22/2018 04:59:48 Document Registration [id number] 03/21/2018 04:59:48 Document Registration [id number] 03/20/2018 04:59:48 Document Registration [id number] 03/19/2018 04:59:49 Document Registration [id number] 03/18/2018 04:59:49 Document Registration [id number] 03/17/2018 04:59:49 Document Registration [id number] 03/16/2018 04:59:49 Document Registration [id number] 03/15/2018 04:59:48 Document Registration [id number] 03/14/2018 04:59:49 Document Registration [id number] 03/13/2018 04:59:48 Document Registration [id number] 03/12/2018 04:59:49 Document Registration [id number] 03/11/2018 04:59:49 Document Registration [id number] 03/10/2018 04:59:48 Document Registration [id number] 03/09/2018 04:59:50 Document Registration [id number] 03/08/2018 04:59:46 Document Registration [id number] 03/07/2018 04:59:46 Document Registration [id number] 03/06/2018 04:59:46 Document Registration [id number] 03/05/2018 04:59:51 Document Registration [id number] 03/04/2018 04:59:46 Document Registration [id number] 03/03/2018 04:59:46 Document Registration [id number] 03/02/2018 04:59:46 Document Registration [id number] 03/01/2018 04:59:46 Document Registration [id number] 02/28/2018 04:59:46 Document Registration [id number] 02/26/2018 04:59:47 Document Registration [id number] 02/25/2018 04:59:47 Document Registration [id number] 02/24/2018 04:59:47 Document Registration [id number] 02/23/2018 04:59:48 Document Registration [id number] 02/22/2018 04:59:47 Document Registration [id number] 02/20/2018 04:59:47 Document Registration [id number] 02/19/2018 04:59:47 Document Registration [id number] 02/18/2018 04:59:49 Document Registration [id number] 02/16/2018 04:59:48 Document Registration [id number] 02/15/2018 04:59:48 Document Registration [id number] 02/14/2018 04:59:49 Document Registration [id number] 02/13/2018 04:59:50 Document Registration [id number] 02/12/2018 04:59:49 Document Registration [id number] 02/11/2018 04:59:49 Document Registration [id number] 02/10/2018 04:59:49 Document Registration [id number] 02/09/2018 04:59:50 Document Registration [id number] 02/08/2018 04:59:34 Document Registration [id number] 02/07/2018 04:59:35 Document Registration [id number] 02/06/2018 04:59:34 Document Registration [id number] 02/05/2018 04:59:34 Document Registration [id number] 02/04/2018 04:59:35 Document Registration [id number] 02/03/2018 04:59:34 Document Registration [id number] 01/23/2018 04:59:45 Document Registration [id number] 01/22/2018 04:59:46 Document Registration [id number] 01/21/2018 04:59:47 Document Registration [id number] 01/20/2018 04:59:44 Document Registration [id number] 01/19/2018 04:59:49 Document Registration [id number] 01/17/2018 04:59:27 Document Registration [id number] 01/16/2018 04:59:28 Document Registration [id number] 01/15/2018 04:59:30 Document Registration [id number] 01/14/2018 04:59:30 Document Registration [id number] 01/13/2018 04:59:27 Document Registration [id number] 01/12/2018 04:59:32 Document Registration [id number] 01/11/2018 04:59:33 Document Registration [id number] 01/10/2018 04:59:34 Document Registration [id number] 01/09/2018 04:59:36 Document Registration [id number] 01/08/2018 04:59:36 Document Registration [id number] 01/07/2018 04:59:37 Document Registration [id number] 01/06/2018 04:59:38 Document Registration [id number] 01/05/2018 04:59:39 Document Registration [id number] 01/04/2018 04:59:40 Document Registration [id number] 01/03/2018 04:59:41 Document Registration [id number] 01/02/2018 04:59:42 Document Registration [id number] 01/01/2018 04:59:39 Document Registration [id number] 12/31/2017 04:59:44 Document Registration [id number] 12/30/2017 04:59:45 Document Registration [id number] 12/29/2017 04:59:46 Document Registration [id number] 12/28/2017 04:59:47 Document Registration [id number] 12/27/2017 04:59:48 Document Registration [id number] 12/26/2017 04:59:44 Document Registration [id number] 12/25/2017 04:59:48 Document Registration [id number] 12/24/2017 04:59:46 Document Registration [id number] 12/23/2017 04:59:50 Document Registration [id number] 12/22/2017 04:59:49 Document Registration [id number] 12/21/2017 04:59:34 Document Registration [id number] 12/20/2017 04:59:37 Document Registration [id number] 12/19/2017 04:59:38 Document Registration [id number] 12/18/2017 04:59:38 Document Registration [id number] 12/17/2017 04:59:35 Document Registration [id number] 12/16/2017 04:59:39 Document Registration [id number] 12/15/2017 04:59:39 Document Registration [id number] 12/14/2017 04:59:40 Document Registration [id number] 12/13/2017 04:59:39 Document Registration [id number] 12/12/2017 04:59:40 Document Registration [id number] 12/11/2017 04:59:40 Document Registration [id number] 12/10/2017 04:59:40 Document Registration [id number] 12/09/2017 04:59:41 Document Registration [id number] 12/08/2017 04:59:41 Document Registration [id number] 12/07/2017 04:59:42 Document Registration [id number] 12/06/2017 04:59:42 Document Registration [id number] 12/04/2017 04:59:42 Document Registration [id number] 12/03/2017 04:59:43 Document Registration [id number] 12/02/2017 04:59:43 Document Registration [id number] 12/01/2017 04:59:43 Document Registration [id number] 11/30/2017 04:59:43 Document Registration [id number] 11/29/2017 04:59:44 Document Registration [id number] 11/28/2017 04:59:44 Document Registration [id number] 11/27/2017 04:59:44 Document Registration [id number] 11/26/2017 04:59:44 Document Registration [id number] 11/25/2017 04:59:44 Document Registration [id number] 11/24/2017 04:59:45 Document Registration [id number] 11/23/2017 04:59:45 Document Registration [id number] 11/22/2017 04:59:46 Document Registration [id number] 11/21/2017 04:59:42 Document Registration [id number] 11/20/2017 04:59:46 Document Registration [id number] 11/19/2017 04:59:47 Document Registration [id number] 11/18/2017 04:59:46 Document Registration [id number] 11/17/2017 04:59:48 Document Registration [id number] 11/17/2017 04:59:47 Document Registration [id number] 11/16/2017 04:59:47 Document Registration [id number] 11/15/2017 04:59:48 Document Registration [id number] 11/14/2017 04:59:47 Document Registration [id number] 11/13/2017 04:59:48 Document Registration [id number] 11/12/2017 04:59:49 Document Registration [id number] 11/11/2017 04:59:48 Document Registration [id number] 11/10/2017 04:59:49 Document Registration [id number] 11/09/2017 04:59:43 Document Registration [id number] 11/08/2017 04:59:43 Document Registration [id number] 11/07/2017 04:59:43 Document Registration [id number] 11/06/2017 04:59:44 Document Registration [id number] 11/05/2017 04:59:44 Document Registration [id number] 11/04/2017 04:59:44 Document Registration [id number] 11/03/2017 04:59:45 Document Registration [id number] 11/02/2017 04:59:45 Document Registration [id number] 11/01/2017 04:59:46 Document Registration [id number] 11/01/2017 04:59:45 Document Registration [id number] 10/31/2017 04:59:45 Document Registration [id number] 10/30/2017 04:59:46 Document Registration [id number] 10/29/2017 04:59:46 Document Registration [id number] 10/28/2017 04:59:47 Document Registration [id number] 10/27/2017 04:59:47 Document Registration [id number] 10/26/2017 04:59:47 Document Registration [id number] 10/25/2017 04:59:47 Document Registration [id number] 10/24/2017 04:59:44 Document Registration [id number] 10/23/2017 04:59:48 Document Registration [id number] 10/22/2017 04:59:45 Document Registration [id number] 10/21/2017 04:59:50 Document Registration [id number] 10/20/2017 04:59:50 Document Registration [id number] 10/19/2017 04:59:43 Document Registration [id number] 10/18/2017 04:59:40 Document Registration [id number] 10/17/2017 04:59:43 Document Registration [id number] 10/16/2017 04:59:45 Document Registration [id number] 10/15/2017 04:59:45 Document Registration [id number] 10/14/2017 04:59:46 Document Registration [id number] 10/13/2017 04:59:42 Document Registration [id number] 10/12/2017 04:59:45 Document Registration [id number] 10/11/2017 04:59:46 Document Registration [id number] 10/10/2017 04:59:46 Document Registration [id number] 10/09/2017 04:59:46 Document Registration [id number] 10/08/2017 04:59:47 Document Registration [id number] 10/07/2017 04:59:47 Document Registration [id number] 10/06/2017 04:59:44 Document Registration [id number] 10/05/2017 04:59:47 Document Registration [id number] 10/04/2017 04:59:48 Document Registration [id number] 10/03/2017 04:59:48 Document Registration [id number] 10/02/2017 04:59:48 Document Registration [id number] 10/01/2017 04:59:45 Document Registration [id number] 09/30/2017 04:59:45 Document Registration [id number] 09/29/2017 04:59:49 Document Registration [id number] 09/28/2017 04:59:44 Document Registration [id number] 09/27/2017 04:59:44 Document Registration [id number] 09/26/2017 04:59:45 Document Registration [id number] 09/25/2017 04:59:45 Document Registration [id number] 09/24/2017 04:59:46 Document Registration [id number] 09/23/2017 04:59:45 Document Registration [id number] 09/22/2017 04:59:45 Document Registration [id number] 09/21/2017 04:59:46 Document Registration [id number] 09/20/2017 04:59:46 Document Registration [id number] 09/19/2017 04:59:46 Document Registration [id number] 09/18/2017 04:59:46 Document Registration [id number] 09/17/2017 04:59:47 Document Registration [id number] 09/16/2017 04:59:44 Document Registration [id number] 09/15/2017 04:59:47 Document Registration [id number] 09/14/2017 04:59:48 Document Registration [id number] 09/13/2017 04:59:45 Document Registration [id number] 09/12/2017 04:59:49 Document Registration [id number] 09/11/2017 04:59:49 Document Registration [id number] 09/10/2017 04:59:49 Document Registration [id number] 09/09/2017 04:59:46 Document Registration [id number] 09/08/2017 04:59:46 Document Registration [id number] 09/07/2017 04:59:47 Document Registration [id number] 09/06/2017 04:59:43 Document Registration [id number] 09/05/2017 04:59:46 Document Registration [id number] 09/04/2017 04:59:47 Document Registration [id number] 09/03/2017 04:59:48 Document Registration [id number] 09/02/2017 04:59:47 Document Registration [id number] 09/01/2017 04:59:44 Document Registration [id number] 08/31/2017 04:59:44 Document Registration [id number] 08/30/2017 04:59:49 Document Registration [id number] 08/30/2017 04:59:48 Document Registration [id number] 08/29/2017 04:59:45 Document Registration [id number] 08/28/2017 04:59:45 Document Registration [id number] 08/27/2017 04:59:49 Document Registration [id number] 08/26/2017 04:59:50 Document Registration [id number] 08/25/2017 04:59:46 Document Registration [id number] 08/24/2017 04:59:49 Document Registration [id number] 08/24/2017 04:59:48 Document Registration [id number] 08/23/2017 04:59:45 Document Registration [id number] 08/22/2017 04:59:46 Document Registration [id number] 08/21/2017 04:59:50 Document Registration [id number] 08/20/2017 04:59:47 Document Registration [id number] 08/19/2017 04:59:47 Document Registration [id number] 08/18/2017 04:59:51 Document Registration [id number] 08/17/2017 04:59:47 Document Registration [id number] 08/16/2017 04:59:48 Document Registration [id number] 08/15/2017 04:59:51 Document Registration [id number] 08/14/2017 04:59:48 Document Registration [id number] 08/13/2017 04:59:48 Document Registration [id number] 08/12/2017 04:59:52 Document Registration [id number] 08/11/2017 04:59:49 Document Registration [id number] 08/10/2017 04:59:54 Document Registration [id number] 08/09/2017 04:59:56 Document Registration [id number] 08/08/2017 04:59:58 Document Registration [id number] 08/07/2017 04:59:59 Document Registration [id number] 08/06/2017 05:00:01 Document Registration [id number] 08/05/2017 04:59:59 Document Registration [id number] 08/04/2017 05:00:00 Document Registration [id number] 08/03/2017 05:00:06 Document Registration [id number] 08/02/2017 05:00:04 Document Registration [id number] 08/01/2017 05:00:04 Document Registration [id number] 07/31/2017 05:00:07 Document Registration [id number] 07/30/2017 05:00:09 Document Registration [id number] 07/29/2017 05:00:04 Document Registration [id number] 07/28/2017 05:00:08 Document Registration [id number] 07/27/2017 05:00:04 Document Registration [id number] 07/26/2017 05:00:08 Document Registration [id number] 07/25/2017 05:00:07 Document Registration [id number] 07/24/2017 05:00:04 Document Registration [id number] 05:00:08 Document Registration [id number] 07/22/2017 05:00:07 Document Registration [id number] 07/21/2017 05:00:04 Document Registration [id number] 07/20/2017 05:00:04 Document Registration [id number] 07/19/2017 05:00:08 Document Registration [id number] 07/18/2017 05:00:04 Document Registration [id number] 07/17/2017 05:00:04 Document Registration [id number] 07/16/2017 05:00:07 Document Registration [id number] 07/15/2017 05:00:04 Document Registration [id number] 07/14/2017 05:00:04 Document Registration [id number] 07/13/2017 05:00:08 Document Registration [id number] 07/12/2017 05:00:06 Document Registration [id number] 07/11/2017 05:00:04 Document Registration [id number] 07/10/2017 05:00:07 Document Registration [id number] 07/09/2017 05:00:04 Document Registration [id number] 07/08/2017 05:00:08 Document Registration [id number] 07/07/2017 05:00:07 Document Registration [id number] 07/06/2017 05:00:04 Document Registration [id number] 07/05/2017 05:00:05 Document Registration [id number] 07/04/2017 05:00:07 Document Registration [id number] 07/03/2017 05:00:03 Document Registration [id number] 07/02/2017 05:00:04 Document Registration [id number] 07/01/2017 05:00:07 Document Registration [id number] 06/30/2017 05:00:04 Document Registration [id number] 06/29/2017 05:00:04 Document Registration [id number] 06/28/2017 05:00:07 Document Registration [id number] 06/27/2017 05:00:04 Document Registration [id number] 06/26/2017 05:00:04 Document Registration [id number] 06/25/2017 05:00:08 Document Registration [id number] 06/24/2017 05:00:05 Document Registration [id number] 06/23/2017 05:00:04 Document Registration [id number] 06/22/2017 05:00:08 Document Registration [id number] 06/21/2017 05:00:04 Document Registration [id number] 06/20/2017 05:00:03 Document Registration [id number] 06/19/2017 05:00:08 Document Registration [id number] 06/18/2017 05:00:08 Document Registration [id number] 06/17/2017 05:00:04 Document Registration [id number] 06/16/2017 05:00:09 Document Registration [id number] 06/15/2017 05:00:04 Document Registration [id number] 06/14/2017 05:00:04 Document Registration [id number] 06/13/2017 05:00:08 Document Registration [id number] 06/12/2017 05:00:04 Document Registration [id number] 06/11/2017 05:00:04 Document Registration [id number] 06/10/2017 05:00:07 Document Registration [id number] 06/09/2017 05:00:03 Document Registration [id number] 06/08/2017 05:00:05 Document Registration [id number] 06/07/2017 05:00:07 Document Registration [id number] 06/06/2017 05:00:04 Document Registration [id number] 06/05/2017 05:00:05 Document Registration [id number] 06/04/2017 05:00:08 Document Registration [id number] 06/03/2017 05:00:07 Document Registration [id number] 06/02/2017 05:00:09 Document Registration [id number] 06/01/2017 05:00:07 Document Registration [id number] 05/31/2017 05:00:04 Document Registration [id number] 05/30/2017 05:00:04 Document Registration [id number] 05/29/2017 05:00:08 Document Registration [id number] 05/28/2017 05:00:04 Document Registration [id number] 05/27/2017 05:00:08 Document Registration [id number] 05/26/2017 05:00:08 Document Registration [id number] 05/25/2017 05:00:03 Document Registration [id number] 05/24/2017 05:00:04 Document Registration [id number] 05/23/2017 05:00:08 Document Registration [id number] 05/22/2017 05:00:03 Document Registration [id number] 05/21/2017 05:00:05 Document Registration [id number] 05/20/2017 05:00:08 Document Registration [id number] 05/19/2017 05:00:04 Document Registration [id number] 05/18/2017 05:00:03 Document Registration [id number] 05/17/2017 05:00:08 Document Registration [id number] 05/16/2017 05:00:03 Document Registration [id number] 05/15/2017 05:00:06 Document Registration [id number] 05/14/2017 05:00:07 Document Registration [id number] 05/13/2017 05:00:08 Document Registration [id number] 05/12/2017 05:00:04 Document Registration [id number] 05/11/2017 05:00:07 Document Registration [id number] 05/10/2017 05:00:04 Document Registration [id number] 05/09/2017 05:00:03 Document Registration [id number] 05/08/2017 05:00:07 Document Registration [id number] 05/07/2017 05:00:09 Document Registration [id number] 05/06/2017 05:00:04 Document Registration [id number] 05/05/2017 05:00:07 Document Registration [id number] 05/04/2017 05:00:04 Document Registration [id number] 05/03/2017 05:00:07 Document Registration [id number] 05/02/2017 05:00:07 Document Registration [id number] 05/01/2017 05:00:04 Document Registration [id number] 04/30/2017 05:00:04 Document Registration [id number] 04/29/2017 05:00:07 Document Registration [id number] 04/28/2017 05:00:04 Document Registration [id number] 04/27/2017 05:00:04 Document Registration [id number] 04/26/2017 05:00:07 Document Registration [id number] 04/25/2017 05:00:08 Document Registration [id number] 04/24/2017 05:00:04 Document Registration [id number] 04/23/2017 05:00:07 Document Registration [id number] 04/22/2017 05:00:04 Document Registration [id number] 04/21/2017 05:00:08 Document Registration [id number] 04/20/2017 05:00:08 Document Registration [id number] 04/19/2017 05:00:03 Document Registration [id number] 04/18/2017 05:00:07 Document Registration [id number] 04/17/2017 05:00:07 Document Registration [id number] 04/16/2017 05:00:03 Document Registration [id number] 04/15/2017 05:00:04 Document Registration [id number] 04/14/2017 05:00:08 Document Registration [id number] 04/13/2017 05:00:08 Document Registration [id number] 04/12/2017 05:00:04 Document Registration [id number] 04/11/2017 05:00:07 Document Registration [id number] 04/10/2017 05:00:08 Document Registration [id number] 04/09/2017 05:00:04 Document Registration [id number] 04/08/2017 05:00:08 Document Registration [id number] 04/07/2017 05:00:05 Document Registration [id number] 03/17/2016 10:01:00 Document Registration [id number] 09/15/2011 11:51:00 Document Registration [id number] 02/01/2011 10:38:00 Document Registration [id number] 01/18/2011 11:10:00 Document Registration [id number] 01/05/2011 09:29:00 Document Registration [id number] 01/04/2011 12:32:00 Document Registration [id number] 12/31/2010 10:33:00 Document Registration [id number] 02/12/2010 00:00:00 Document Registration [id number] 04/26/2017 03:04:04 04/26/2017 23:59:59 [facility] Outpatient
[2018-04-14] MEDS ORDERED: METOCLOPRAMIDE INJ 10 MG/2 ML (REGLAN) ONE (10:22)
[2018-04-14] MEDS ORDERED: METOCLOPRAMIDE INJ 10 MG/2 ML (REGLAN) IVP PRN (10:30)
[2018-04-14] MEDS ORDERED: NS IV 1000 ML 1,000 ML IV SCH (10:30)
[2018-04-14] MEDS ORDERED: CATHETER FLUSH 10 ML SYR IV PRN (10:45)
[2018-04-14 10:58] VITALS: BP 189/86
[2018-04-14 11:34] LABS: BASOPHILS % (AUTO) 0 % (0-10); EOSINOPHILS % (AUTO) 0 % (0-10); HEMATOCRIT 37 % (35-52); HEMOGLOBIN 12.8 G/DL (11.5-16.0); LYMPHOCYTES # (AUTO) 0.3 X 10^3 (1.0-4.0); LYMPHOCYTES % (AUTO) 12 % (12-44); MEAN CORPUSCULAR HEMOGLOBIN 31 PG (25-34); MEAN CORPUSCULAR HGB CONC 34 G/DL (32-36); MEAN CORPUSCULAR VOLUME 89 FL (80-99); MEAN PLATELET VOLUME 9.3 FL (7.4-10.4); MONOCYTES # (AUTO) 0.4 X 10^3 (0.0-1.0); MONOCYTES % (AUTO) 17 % (0-12); NEUTROPHILS # (AUTO) 1.9 X 10^3 (1.8-7.8); NEUTROPHILS % (AUTO) 72 % (42-75); PLATELET COUNT 139 10^3/uL (130-400); RED CELL DISTRIBUTION WIDTH 12.8 % (10.0-14.5); WHITE BLOOD COUNT 2.7 10^3/uL (4.3-11.0)
[2018-04-14 11:56] LABS: ALANINE AMINOTRANSFERASE 24 U/L (0-55); ALBUMIN 4.1 GM/DL (3.2-4.5); ALKALINE PHOSPHATASE 104 U/L (40-136); BILIRUBIN,TOTAL 0.7 MG/DL (0.1-1.0); BUN/CREATININE RATIO 15; CARBON DIOXIDE 28 MMOL/L (21-32); CHLORIDE 95 MMOL/L (98-107); CREATININE SERUM 0.78 MG/DL (0.60-1.30); GFR ESTIMATED > 60; GLUCOSE 118 MG/DL (70-105); POTASSIUM 2.7 MMOL/L (3.6-5.0); SODIUM 140 MMOL/L (135-145); TOTAL PROTEIN 8.2 GM/DL (6.4-8.2)
[2018-04-14 12:00] VITALS: BP 164/89
[2018-04-14] MEDS ORDERED: LACTATED RINGERS 1,000 ML IV SCH (12:30)
[2018-04-14] MEDS: D5 1/2 NS W/KCL 20 MEQ/L 1,000 ML IV SCH ×2 (12:54→21:39)
[2018-04-14] MEDS ORDERED: FLU QUADRIvalent (5+ YOA) 2018-2019 (AFLURIA) 0.5 ML IM ONE (13:00)
[2018-04-14] MEDS ORDERED: ACET-2267 PO (13:19)
[2018-04-14] MEDS ORDERED: MECL-106 PO (13:19)
[2018-04-14] MEDS ORDERED: MECLIZINE 25 MG (ANTIVERT) TAB PO PRN (15:00)
[2018-04-14] MEDS ORDERED: NON-FORMULARY MEDICATION 1 EA EA (Acetaminophen (Tylenol Extra Strength) 500 MG) PO PRN (15:00)
[2018-04-14] MEDS ORDERED: PATIENT MAY USE OWN MEDS, ALL MC SCH (15:00)
[2018-04-14] MEDS ORDERED: PHENYTOIN 100 MG PO SCH (15:15)
[2018-04-14] MEDS ORDERED: ACETAMINOPHEN 500 MG TAB (TYLENOL) PO PRN (15:15)
--- NOTE | 2018-04-14 15:21 | History & Physicial ---
History of Present Illness History of Present Illness Reason for visit/HPI Severe postoperative nausea and vomiting leading to dehydration Date of Admission Apr 14, 2018 at 09:45 Date Seen by a Provider: Apr 14, 2018 Time Seen by a Provider: 15:19 I consulted on this patient on 04/14/18 15:18 Attending Physician Catie Mcintyre MD Admitting Physician Magali Zepeda MD Consult Allergies and Home Medications Allergies Coded Allergies: No Known Drug Allergies (Unverified , 04/10/18) Home Medications Acetaminophen 500 Mg Tablet, 500 MG PO Q4H PRN for PAIN-MILD, (Reported) Denosumab 60 Mg/1 Ml Disp.syrin, 60 MG SQ Q 6 MONTHS, (Reported) Lamotrigine 100 Mg Tablet, 100 MG PO DAILY, (Reported) Lamotrigine 150 Mg Tablet, 150 MG PO HS, (Reported) Meclizine HCl 25 Mg Tablet, 25 MG PO TID PRN for DIZZINESS, (Reported) Phenytoin Sodium Extended 100 Mg Capsule, PO UD, (Reported) TAKES 100MG @ 1630 AND 200MG @2100 X 3 DAYS THEN TAKES 200MG @1630 AND 200MG @2100 ON THE 4TH DAY, THEN REPEAT Patient Home Medication List Home Medication List Reviewed: Yes Past Fhawzqx-Hassgo-Dsvczc Hx Patient Social History Marrital Status: Employed/Student: retired Alcohol Use: Denies Use Recreational Drug Use: No 2nd Hand Smoke Exposure: No Physical Abuse Screen: No Sexual Abuse: No Recent Foreign Travel: No Contact w/other who traveled: No Recent Hopitalizations: Yes (SEIZURE/FALL-2017) Recent Infectious Disease Expo: No Immunizations Up To Date Pediatric: No Seasonal Allergies Seasonal Allergies: No Surgeries Yes (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; RIGHT HIP FX/REPAIR 2009) Gallbladder, 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, Neurological, Orthopedic Respiratory No Currently Using CPAP: No Currently Using BIPAP: No Cardiovascular Yes High Cholesterol Neurological Yes (LAST SEIZURES-04/07/18) Seizure Disorder, Vertigo Reproductive System Hx Reproductive Disorders: No Sexually Transmitted Disease: No HIV/AIDS: No 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 Genitourinary Yes Bladder Infection, UTI-Chronic Gastrointestinal Yes Chronic Constipation, Gall Bladder Disease Musculoskeletal Yes Rheumatoid Arthritis Endocrine History of Endocrine Disorders: Yes (BENIGN PITUITARY ADENOMA) HEENT History of HEENT Disorders: No Loss of Vision: Bilateral Cancer No Psychosocial History of Psychiatric Problem: No Behavioral Health Disorders: Depression Integumentary History of Skin or Integumenta: No Blood Transfusions History of Blood Disorders: Yes (NEUTROPENIA--NORMAL WBC 1.0-1.5) Adverse Reaction to a Blood Tr: No (N/A) Family Medical History Family Hx: Benign neoplasm pituitary gland and craniopharyngeal duct G8 BROTHER, Onset:Unknown Completed stroke 19 FATHER, , Onset:60 years & older 19 MOTHER, , Onset:60 years & older FH: epilepsy G8 SISTER, Onset:Unknown Review of Systems Constitutional: malaise, weakness EENTM: no symptoms reported Respiratory: no symptoms reported Cardiovascular: no symptoms reported Gastrointestinal: see HPI Musculoskeletal: no symptoms reported Skin: no symptoms reported Psychiatric/Neurological: No Symptoms Reported Physical Exam Vital Signs Vital Signs - First Documented 04/14/18 10:58 Temp 99.1 Pulse 124 Resp 16 B/P (MAP) 189/86 (120) Pulse Ox 94 O2 Delivery Room Air Capillary Refill : Height, Weight, BMI Height: 5'5.00" Weight: 113lbs. 0.0oz. 51.938689mh; 18.8 BMI Method:Stated General Appearance: No Apparent Distress Neck: Normal Inspection Respiratory: Lungs Clear Cardiovascular: Regular Rate, Rhythm Gastrointestinal: Soft Extremity: Normal Inspection Neurologic/Psychiatric: Alert, Oriented x3 Skin: Warm/Dry Assessment/Plan Assessment and Plan Lady with postoperative nausea and vomiting following cholecystectomy 2 days ago. Hypokalemia. Intravenous fluids administered first, followed by attaching replacement. Appropriate antiemetics would also be used. She is at high risk for grand mal seizures and therefore Dilantin would be restarted immediately Admission Diagnosis Admission Status: Observation Clinical Quality Measures DVT/VTE Risk/Contraindication: Risk Factor Score Per Nursin RFS Level Per Nursing on Admit: 4+=Very High CATIE MCINTYRE MD Apr 14, 2018 15:21
[2018-04-14 15:35] VITALS: BP 144/76
[2018-04-14] MEDS: POTASSIUM CL 10MEQ/50ML IVPB 50 ML IV SCH ×6 (16:09→21:40)
[2018-04-14] MEDS: ENOXAPARIN 30 MG/0.3 ML (LOVENOX) SYR SC SCH (16:22)
[2018-04-14] MEDS: PHENYTOIN 100 MG (DILANTIN) CAP PO SCH ×2 (16:22→20:38)
[2018-04-14 19:05] VITALS: BP 168/79
[2018-04-14] MEDS: ONDANSETRON 4 MG/2 ML (SDV) Z0FRAN IVP PRN (19:17)
[2018-04-14] MEDS: LAMOTRIGINE 150 MG TAB PO SCH (20:37)
[2018-04-14] MEDS ORDERED: NON-FORMULARY MEDICATION 1 EA EA (Lamotrigine 150 MG) PO SCH (21:00)
[2018-04-15] VITALS: BP 155/81
[2018-04-15 04:00] VITALS: BP 163/79
[2018-04-15] MEDS: D5 1/2 NS W/KCL 20 MEQ/L 1,000 ML IV SCH ×3 (05:29→20:59)
[2018-04-15 06:28] LABS: BUN/CREATININE RATIO 6; CARBON DIOXIDE 25 MMOL/L (21-32); CHLORIDE 101 MMOL/L (98-107); GFR ESTIMATED > 60; GLUCOSE 120 MG/DL (70-105); POTASSIUM 3.5 MMOL/L (3.6-5.0); SODIUM 136 MMOL/L (135-145)
[2018-04-15 08:00] VITALS: BP 174/79
[2018-04-15] MEDS ORDERED: NON-FORMULARY MEDICATION 1 EA EA (Lamotrigine 100 MG) PO SCH (09:00)
[2018-04-15] MEDS: ONDANSETRON 4 MG/2 ML (SDV) Z0FRAN IVP PRN (11:13)
[2018-04-15] MEDS ORDERED: PANTOPRAZOLE 40 MG (PROTONIX) VIAL IV ONE (11:30)
[2018-04-15 12:00] VITALS: BP 142/76
--- NOTE | 2018-04-15 12:05 | Progress Note (SOAP) ---
Subjective Date Seen by a Provider: Apr 15, 2018 Time Seen by a Provider: 10:45 Subjective/Events-last exam Patient seen with Dr. Arriaza. Patient reports still having Nausea and some vomiting. Reports tried some jell-o this morning but became nauseated and did vomit some. She states that she has been scared to try and eat much due to the nausea and vomiting. She also reports that she has been having some increased reflux. No fever/chills. No abdominal pain. Does reports she is passing gas and ambulating to the bathroom. Objective Exam Vital Signs Date Time Temp Pulse Resp B/P (MAP) Pulse Ox O2 Delivery O2 Flow Rate FiO2 04/15/18 08:00 97.6 98 16 174/79 (110) 95 Room Air 04/15/18 08:00 Room Air 04/15/18 04:00 97.3 104 16 163/79 (107) 96 Room Air 04/15/18 00:00 96.8 113 16 155/81 (105) 95 Room Air 04/14/18 19:05 99.6 114 22 168/79 (108) 98 Room Air 04/14/18 15:35 99.6 117 20 144/76 (98) 97 Room Air 04/14/18 12:00 98.7 108 18 164/89 (114) 99 Room Air I & O 04/15/18 06:59 Intake Total 3820 ml Balance 3820 ml Capillary Refill : General Appearance: No Apparent Distress, WD/WN Neck: Full Range of Motion, Normal Inspection, Non Tender, Supple Respiratory: Chest Non Tender, Lungs Clear, Normal Breath Sounds, No Accessory Muscle Use, No Respiratory Distress Cardiovascular: Regular Rate, Rhythm, No Edema Gastrointestinal: normal bowel sounds, soft, tenderness (incisional.) Neurologic/Psychiatric: Alert, Oriented x3 Skin: Normal Color, Warm/Dry, Other (Incisions C/D/I) Results Lab Laboratory Tests 04/15/18 05:51: Sodium Level 136, Potassium Level 3.5L, Chloride Level 101, Carbon Dioxide Level 25, Anion Gap 10, Blood Urea Nitrogen 4L, Creatinine 0.70, Estimat Glomerular Filtration Rate > 60, BUN/Creatinine Ratio 6, Glucose Level 120H, Calcium Level 9.0 Assessment/Plan Assessment/Plan Assess & Plan/Chief Complaint A 72 year old female with postoperative nausea and vomiting following cholecystectomy. Hypokalemia. VSS. Patient still having N/V and not able to tolerating liquids. Will continue with IV fluids and nausea medications. Will start protonix 40mg daily for reflux. Continue to encourage ambulation and liquids. Clinical Quality Measures DVT/VTE Risk/Contraindication: Risk Factor Score Per Nursin RFS Level Per Nursing on Admit: 4+=Very High DARIA NEVAREZ APRN Apr 15, 2018 12:05 pm
[2018-04-15 15:35] VITALS: BP 151/70
[2018-04-15] MEDS: ENOXAPARIN 30 MG/0.3 ML (LOVENOX) SYR SC SCH (15:56)
[2018-04-15] MEDS: PHENYTOIN 100 MG (DILANTIN) CAP PO SCH ×2 (16:41→21:00)
[2018-04-15 19:10] VITALS: BP 154/74
[2018-04-15] MEDS: LAMOTRIGINE 150 MG TAB PO SCH (20:59)
[2018-04-16] VITALS: BP 149/72
[2018-04-16] MEDS: D5 1/2 NS W/KCL 20 MEQ/L 1,000 ML IV SCH (03:50)
[2018-04-16 04:00] VITALS: BP 175/74
[2018-04-16] MEDS: PANTOPRAZOLE 40 MG (PROTONIX) VIAL IV SCH ×2 (06:24→09:23)
[2018-04-16 08:00] VITALS: BP 166/81
--- NOTE | 2018-04-16 10:38 | Progress Note (SOAP) ---
Subjective Date Seen by a Provider: Apr 16, 2018 Time Seen by a Provider: 09:45 Subjective/Events-last exam Patient seen with Dr. Arriaza. Patient reports doing better today. She states she was able to keep down a chicken sandwich last night as well as a muffin this morning with no vomiting. She still reports episodes of heartburn and some nausea. Tolerating liquids. Denies any pain, fever/chills. Ambulating. Objective Exam Vital Signs Date Time Temp Pulse Resp B/P (MAP) Pulse Ox O2 Delivery O2 Flow Rate FiO2 04/16/18 08:00 98.4 98 16 166/81 (109) 96 Room Air 04/16/18 04:00 98.8 101 16 175/74 (107) 95 Room Air 04/16/18 00:00 98.4 104 16 149/72 (97) 95 Room Air 04/15/18 19:10 99.0 103 18 154/74 (100) 96 Room Air 04/15/18 15:35 97.9 98 16 151/70 (97) 96 Room Air 04/15/18 12:00 97.8 102 18 142/76 (98) 96 Room Air I & O 04/16/18 07:00 Intake Total 2360 ml Output Total 150 ml Balance 2210 ml Capillary Refill : General Appearance: No Apparent Distress, WD/WN Neck: Full Range of Motion, Normal Inspection, Non Tender, Supple Respiratory: Chest Non Tender, Lungs Clear, Normal Breath Sounds, No Accessory Muscle Use, No Respiratory Distress Cardiovascular: Regular Rate, Rhythm, No Edema Gastrointestinal: normal bowel sounds, soft, tenderness (incisional) Extremity: Normal Capillary Refill, Normal Inspection, Normal Range of Motion Neurologic/Psychiatric: Alert, Oriented x3 Skin: Normal Color, Warm/Dry Assessment/Plan Assessment/Plan Assess & Plan/Chief Complaint A 72 year old female with postoperative nausea and vomiting following cholecystectomy. Hypokalemia. VSS. Tolerating diet. Still having episodes of GERD but will send patient home a script for protonix. Ok to [place] home. Clinical Quality Measures DVT/VTE Risk/Contraindication: Risk Factor Score Per Nursin RFS Level Per Nursing on Admit: 4+=Very High DARIA NEVAREZ APRN Apr 16, 2018 10:38 am
[2018-04-16] MEDS ORDERED: PANT40TA2 PO (10:40)
--- NOTE | 2018-04-16 10:42 | Discharge Inst-Surgical ---
D/C Lap Instructions-KIDO New, Converted, or Re-Newed RX: RX on Chart Follow Up with Dr. Mcintyre as previously instructed. Activity as tolerated No driving while on pain medications Incentive Spirometry use every 2 hours while awake Regular Diet Symptoms to Report: Fever over 101 degree F, Nausea/Vomiting Infection Signs and Symptoms to report: Increased redness, Foul odor of wound, Increased drainage Bathing instructions: May shower Operative Area Clean/Dry; Keep incision clean/dry If any problems/questions: Contact your physician or go to Emergency Room DARIA NEVAREZ APRN Apr 16, 2018 10:42 am
[2018-04-16] MEDS ORDERED: PHENYTOIN 100 MG (DILANTIN) CAP PO SCH (16:30)
[2018-04-24] MEDS ORDERED: NON-FORMULARY MEDICATION 1 EA EA (Denosumab (Prolia) 60 MG) SQ SCH (09:00)
== END 2018-04-16 10:40 | disposition home or self-care (01) ==
LOC: 4TH 09:45 → UNDOADMOB 09:45 → 4TH 10:05 → UNDODISOB 04-16 11:50
PROVIDERS: ADMIT Surgery; ATTEND Surgery
DX: K91.0 Vomiting following gastrointestinal surgery (principal); E87.6 Hypokalemia; E86.0 Dehydration; Z79.899 Other long term (current) drug therapy; E78.00 Pure hypercholesterolemia, unspecified; G40.909 Epilepsy, unspecified, not intractable, without status epilepticus; M06.9 Rheumatoid arthritis, unspecified; F32.9 Major depressive disorder, single episode, unspecified
CPT/HCPCS: 36415; 80048; 80053; 85025; 99211; G0378

== ENCOUNTER 2018-07-17 10:47 | Emergency (ER) | payer MEDICARE, OTHER ==
[~2018-07-17] VITALS: Ht 165.1 cm; Wt 51.3 kg
[~2018-07-17 10:47] MED LIST changes: +ACET-2267 PO; +PANT40TA2 PO
[2018-07-17] MEDS ORDERED: NS IV 1000 ML 1,000 ML ONE (10:49)
[2018-07-17] MEDS ORDERED: ONDANSETRON 4 MG/2 ML (SDV) Z0FRAN ONE (10:49)
--- OUTSIDE RECORDS SUMMARY | 2018-07-17 10:53 | XMS REPORT | Clinical Summary ---
Author Author [facility] Organization [facility] Address Unknown Phone Unavailable Care Team Providers Care Back Gray Cloth Washer Name Role Phone Ángel Swenson MD Unavailable Unavailable Janet Gonzalez MD Unavailable Krissy Benntet RN Unavailable Maximiliano Gonzalez MD Unavailable Araceli Ferreira ASPNET DEVELOPER-TELEGRAPH PLANT MAINTAINER Unavailable Alexis Cesar MD Unavailable Evette Pang MD Unavailable Magali Zepeda MD PCP Source Comments Some departments are not documenting in the electronic medical record. If you do not see the information that you expected, contact Release of Information in the Health Information Management department at [phone] for further assistance in locating additional records.[facility] Allergies No Known Allergies Medications End Date Status Medication Sig Dispensed Refills Start Date Active folic acid 400 mcg tablet Take 800 mcg 0 by mouth daily. Active acetaminophen(+) 650 mg Take 1 Tab by 30 Tab 0 tablet mouth every 4 3 hours as needed. Active vitamins, multi Take 1 Tab by 0 w/minerals 27-0.4 mg Tab mouth daily. 3 Active meclizine (ANTIVERT) 25 Take 25 mg by 0 mg tablet mouth as Needed. Active PHENYTOIN SODIUM EXTENDED Take by 0 (DILANTIN PO) mouth. Take 400 mg for two days and then 300 mg for one day and then back to 400 mg.etc. 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 Last Filed Vital Signs Time Taken Vital Sign Reading 04/03/2015 11:51 AM CDT Blood Pressure 103/73 04/03/2015 11:51 AM CDT Pulse 123 04/09/2013 1:12 PM CDT Temperature 37.3 C (99.1 F) - Respiratory Rate - 09/06/2012 11:27 AM CDT Oxygen Saturation 100% - Inhaled Oxygen - Concentration 04/01/2016 9:39 AM CDT Weight 49.9 kg (110 lb) 04/01/2016 9:39 AM CDT Height 165.1 cm (5' 5") 04/01/2016 9:39 AM CDT Body Mass Index 18.3 Plan of Treatment Health Maintenance Due Date Last Done Comments HEPATITIS C SCREENING 1944 PHYSICAL (COMPREHENSIVE) 1951 EXAM DTAP/TDAP VACCINES (1 - 1962 Tdap) BREAST CANCER SCREENING 1984 COLORECTAL CANCER 1994 SCREENING SHINGLES RECOMBINANT 1994 VACCINE (1 of 2) OSTEOPOROSIS 2009 SCREENING/MONITORING PNEUMONIA (PCV13/PPSV23) 2009 VACCINES (1 of 2 - PCV13) INFLUENZA VACCINE 01/11/2018 Results Not on filefrom Last 3 Months Insurance Payer Benefit Subscriber ID Type Phone Address Plan / Group MEDICARE MEDICARE xxxxxxxxxx Medicare PART A AND B [employer] [place] [id number] [employer] Advance Directives Patient has advance care planning documents, and code status on file. For more information, please contact: [facility] [address] [place] [address] Date Inactivated Comments Code Status Date Activated 09/06/2012 5:50 PM Full Code 09/01/2012 12:13 PM Provider has discussed Code Status Yes w/Patient or Family? 08/15/2012 7:46 PM Full Code 08/13/2012 2:55 PM Provider has discussed Code Status Yes w/Patient or Family? 08/13/2012 2:55 PM Full Code 08/11/2012 7:34 PM Provider has discussed Code Status No, more discussion w/Patient or Family? needed
--- OUTSIDE RECORDS SUMMARY | 2018-07-17 10:53 | XMS REPORT | Clinical Summary ---
Author Author [facility] Organization [facility] Address Unknown Phone Unavailable Care Team Providers Care Inspector Filters Name Role Phone PCP Unavailable Allergies Not [...]
--- OUTSIDE RECORDS SUMMARY | 2018-07-17 10:55 | XMS REPORT | CCD ---
Author Author Magali Zepeda Organization Magali Zepeda MD, [facility] Address [address] [place] [address] Phone Care Team Providers Care Photography And [employer]s Curator Name Role Phone PP Unavailable CCM Unavailable Summary Purpose Interface Exchange Insurance Providers Payer name Policy type / Coverage type Covered libertarian ID Effective Begin Date Effective End Date WPS Medicare Part B Medicare Part B [id number] Unknown [employer] Medicare Part B [id number] Unknown Family history Sister Diagnosis Age At [...] Unknown Retired 02/10/[address]: 098612612 Never smoker 02/10/[address]: 771434497 Never drinks alcohol 02/10/2016 Has the patient ever used illegal drugs? Unknown Has never used illegal drugs 02/10/2016 Allergies, Adverse Reactions, Alerts Substance Reaction Codes Entered Date Inactivated Date Status * NO KNOWN DRUG ALLERGIES Unknown 02/10/2016 No Inactive Date Active Past Medical History Illness Codes Condition Status Onset Date Resolved Date Acute upper respiratory infection, unspecified ICD-9: 465.9 ICD-10: J06.9 Active 07/07/2018 Unknown Cough ICD-9: 786.2 ICD-10: R05 Active 07/07/2018 Unknown Dysuria ICD-9: 788.1 ICD-10: R30.0 Active 02/09/2016 Unknown Mixed incontinence ICD -9: 788.33 ICD-10: N39.46 Active 07/12/2017 Unknown Other abnormalities of gait and mobility ICD-9: 781.2 ICD-10: R26.89 Active 02/09/2016 Unknown Other epilepsy, not intractable, without status epilepticus ICD-9: 345.10 ICD-10: G40.802 Active 08/11/2016 Unknown Unsteadiness on feet ICD-9: 781.2 ICD-10: R26.81 Active 04/13/2017 Unknown Calculus of gallbladder without cholecystitis without obstruction ICD-9: 574.20 ICD-10: K80.20 Active 03/02/2017 Unknown Functional diarrhea ICD-9: 564.5 ICD-10: K59.1 Active 04/04/2018 Unknown Right upper quadrant abdominal rigidity ICD-9: 789.41 ICD-10: R19.31 Active 04/04/2018 Unknown Age-related osteoporosis without current pathological fracture ICD-9: 733.00 ICD-10: M81.0 Active 02/16/2018 Unknown Slow transit constipation ICD-9: 564.01 ICD-10: K59.01 Active 04/15/2016 Unknown Urinary tract infection, site not specified ICD-9: 599.0 ICD-10: N39.0 Active 04/15/2016 Unknown Generalized idiopathic epilepsy and epileptic syndromes, not intractable, with status epilepticus ICD-9: 345.3 ICD-10: G40.301 Active 08/30/2016 Unknown Encounter for general adult medical examination with abnormal findings ICD-9: V70.0 ICD-10: Z00.01 Active 05/31/2016 Unknown 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 ICD-10: G62.0 Active 03/30/2017 Unknown Low back pain ICD-9: 724.2 ICD-10: [...] ICD-9: 707.03 ICD-10: L89.151 Active 08/11/2016 Unknown Problems Condition Codes Effective Dates Condition Status Acute upper respiratory infection, unspecified ICD-9: 465.9 ICD-10: J06.9 07/07/2018 Active Cough ICD-9: 786.2 ICD-10: R05 07/07/2018 Active Dysuria ICD-9: 788.1 ICD-10: R30.0 02/09/2016 Active Mixed incontinence ICD -9: 788.33 ICD-10: N39.46 07/12/2017 Active Other abnormalities of gait and mobility ICD-9: 781.2 ICD-10: R26.89 02/09/2016 Active Other epilepsy, not intractable, without status epilepticus ICD-9: 345.10 ICD-10: G40.802 08/11/2016 Active Unsteadiness on feet ICD-9: 781.2 ICD-10: R26.81 04/13/2017 Active Calculus of gallbladder without cholecystitis without obstruction ICD-9: 574.20 ICD-10: K80.20 03/02/2017 Active Functional diarrhea ICD-9: 564.5 ICD-10: K59.1 04/04/2018 Active Right upper quadrant abdominal rigidity ICD-9: 789.41 ICD-10: R19.31 04/04/2018 Active Age-related osteoporosis without current pathological fracture ICD-9: 733.00 ICD-10: M81.0 02/16/2018 Active Slow transit constipation ICD-9: 564.01 ICD-10: K59.01 04/15/2016 Active Urinary tract infection, site not specified ICD-9: 599.0 ICD-10: N39.0 04/15/2016 Active Generalized idiopathic epilepsy and epileptic syndromes, not intractable, with status epilepticus ICD-9: 345.3 ICD-10: G40.301 08/30/2016 Active Encounter for general adult medical examination with abnormal findings ICD-9: V70.0 ICD-10: Z00.01 05/31/2016 Active 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 ICD-10: G62.0 03/30/2017 Active Low back pain ICD-9: 724.2 ICD-10: [...] 1 ICD-9: 707.03 ICD-10: L89.151 08/11/2016 Active Medications Medication Codes Instructions Start Date Stop Date Status Fill Instructions amoxicillin 500 mg tablet RxNorm: 159400 1 Tablet(s) PO TID 07/13/2018 Active lamotrigine 100 mg tablet RxNorm: 069224 TAKE 1 TABLET BY MOUTH IN THE MORNING 07/03/2018 No Stop Date Active Keflex 500 mg capsule RxNorm: 561906 1 Capsule(s) PO QID 201706/18/2018 Inactive please call patient to let her know she needs to picking tech rx for antibiotic Dilantin Extended 100 mg capsule RxNorm: 131151 Capsule(s) TAKE 1 CAP TID ON Tue AND 1 CAPSULE QID ON ///TUE. if having symptoms of seizure activity, take an extra pill 05/29/2018 No Stop Date Active Dilantin Extended 100 mg capsule RxNorm: 146440 Capsule(s) TAKE 1 CAP TID x2 DAYS , THEN 1 CAPSULE qid x2 DAYs, THEN REPEAT CYCLE. if having symptoms of seizure activity, take an extra pill 05/22/2018 Inactive lamotrigine 150 mg tablet RxNorm: 810922 TAKE 1 TABLET BY MOUTH AT BEDTIME 04/17/2018 No Stop Date Active Dilantin Extended 100 mg capsule RxNorm: 358338 TAKE 1 CAPSULE BY MOUTH THREE TIMES DAILY FOR 3 DAYS, THEN 1 CAPSULE FOUR TIMES DAILY FOR 1 DAY, THEN REPEAT CYCLE. 04/12/2018 05/21/2018 Inactive lamotrigine 100 mg tablet RxNorm: 336673 TAKE 1 TABLET BY MOUTH IN THE MORNING 03/31/2018 07/02/2018 Inactive dicyclomine 10 mg capsule RxNorm: 964327 TAKE ONE CAPSULE BY MOUTH TWICE DAILY NEEDED 02/20/2018 No Stop Date Active Penlac 8 % topical solution RxNorm: 601398 1 Application TOP daily clean off every 7 days and restart application process 02/16/2018 09/13/2018 Active ok to dispense generic Keflex 500 mg capsule RxNorm: 289849 1 Capsule(s) PO QID 201702/22/2018 Inactive please call patient to let her know she needs to picking tech rx for antibiotic Dilantin Extended 100 mg capsule RxNorm: 620278 Capsule(s) PO UD 1 cap TID x 3 days then 1 cap qid x 1 day then repeat cycle 12/15/2017 04/11/2018 Inactive give 1 month supply lamotrigine 150 mg tablet RxNorm: 705864 1 Tablet(s) PO QHS 04/05/2018 Inactive lamotrigine 100 mg tablet RxNorm: 952727 1 Tablet(s) PO QAM 03/30/2018 Inactive Levaquin 500 mg tablet RxNorm: 609854 1 Tablet(s) PO daily 12/11/2017 Inactive Keflex 500 mg capsule RxNorm: 174207 1 Capsule(s) PO TID 201711/20/2017 Inactive Keflex 500 mg capsule RxNorm: 039362 1 Capsule(s) PO TID 201711/13/2017 Inactive Dilantin Extended 100 mg capsule RxNorm: 613278 Capsule(s) PO UD m3pill/tue3 pill/ wed 4 pill/ thur 2pill/fri 3pill/sat 4pill/sun 3 pill 201712/14/2017 Inactive Dilantin Extended 100 mg capsule RxNorm: 737097 Capsule(s) PO UD -Alternate 300 mg for two days in a row and then 400 mg for one day and repeat cycle 10/04/2017 10/12/2017 Inactive Augmentin 500 mg-125 mg tablet RxNorm: 440288 1 Tablet(s) PO TID 07/15/2017 07/14/2017 Inactive Augmentin 500 mg-125 mg tablet RxNorm: 216205 1 Tablet(s) PO TID 07/15/2017 07/21/2017 Inactive Dilantin Extended 100 mg capsule RxNorm: 541367 1 Capsule(s) PO daily -Alternate 300 mg and 400 mg every other day 06/07/2017 10/03/2017 Inactive Bactrim DS 800 mg-160 mg tablet RxNorm: 987697 1 Tablet(s) PO BID 05/02/2017 05/08/2017 Inactive Dilantin Extended 100 mg capsule RxNorm: 003507 1 Capsule(s) PO daily in the afternoon and 2 Capsules PO HS- Will take an additional pill if she has a lot of jerking 04/27/2017 06/06/2017 Inactive Keflex 500 mg capsule RxNorm: 609058 1 Capsule(s) PO TID 201604/23/2017 Inactive dicyclomine 10 mg capsule RxNorm: 132438 1 Capsule(s) PO BID as needed 03/30/2017 05/28/2017 Inactive Senna with Docusate Sodium 8.6 mg-50 mg tablet RxNorm: 184488 1 Tablet(s) PO BID as needed constipation 03/02/20172017 Inactive Keflex 500 mg capsule RxNorm: 059522 1 Capsule(s) PO TID 201608/20/2016 Inactive Levaquin 500 mg tablet RxNorm: 262356 1 Tablet(s) PO daily 09/201504/22/2016 Inactive ciprofloxacin 500 mg tablet RxNorm: 758095 1 Tablet(s) PO BID 02/10/2016 02/16/2016 Inactive prednisone 10 mg tablet RxNorm: 035363 1 Tablet(s) PO as needed for pain No Start Date Active Prolia 60 mg/mL subcutaneous syringe RxNorm: 644330 1 injection SQ Q6 months No Start Date Active lamotrigine 150 mg tablet RxNorm: 960843 1 Tablet(s) PO QHS No Start Date 12/06/2017 Inactive lamotrigine 100 mg tablet RxNorm: 878101 1 Tablet(s) PO QAM No Start Date 12/06/2017 Inactive Dilantin Extended 100 mg capsule RxNorm: 447085 Capsule(s) PO TAKES FOUR CAPSULES FOR 2 DAYS, THEN THREE CAPSULES FOR 1 DAY, THEN REPEATS No Start Date 04/26/2017 Inactive Humira 20 mg/0.4 mL subcutaneous syringe kit RxNorm: 147309 1 injection SQ every 2 weeks- Prescribed by Dr. Baker No Start Date 05/23/2017 Inactive Medication Administered No Medication Administered data Immunizations No Immunization data Assessments Condition Codes Effective Dates Acute upper respiratory infection, unspecified ICD-10: J06.9 ICD-9: 465.9 07/07/2018 Cough ICD-10: R05 ICD-9: 786.2 07/07/2018 Dysuria ICD-10: R30.0 ICD-9: 788.1 06/12/2018 Unsteadiness on feet ICD-10: R26.81 ICD-9: 781.2 05/22/2018 Other abnormalities of gait and mobility ICD-10: R26.89 ICD-9: 781.2 05/22/2018 Other epilepsy, not intractable, without status epilepticus ICD-10: G40.802 ICD-9: 345.10 05/22/2018 Mixed incontinence ICD-10: N39.46 ICD-9: 788.33 05/22/2018 Calculus of gallbladder without cholecystitis without obstruction ICD-10: K80.20 ICD-9: 574.20 04/04/2018 Functional diarrhea ICD-10: K59.1 ICD-9: 564.5 04/04/2018 Right upper quadrant abdominal rigidity ICD-10: R19.31 ICD-9: 789.41 04/04/2018 Age-related osteoporosis without current pathological fracture ICD-10: M81.0 ICD-9: 733.00 02/16/2018 Slow transit constipation ICD-10: K59.01 ICD-9: 564.01 02/16/2018 Urinary tract infection, site not specified ICD-10: N39.0 ICD-9: 599.0 11/14/2017 Encounter for general adult medical examination with abnormal findings ICD-10: Z00.01 ICD-9: V70.0 06/07/2017 Drug-induced polyneuropathy ICD-10: G62.0 ICD-9: 357.7 05/24/2017 Generalized idiopathic epilepsy and epileptic syndromes, not intractable, with status epilepticus ICD-10: G40.301 ICD-9: 345.3 04/13/2017 Other specified polyneuropathies ICD-10: G62.89 ICD-9: 356.8 03/30/2017 Low back pain ICD-10: M54.5 ICD-9: 724.2 03/30/2017 Benign paroxysmal vertigo, bilateral ICD-10: H81.13 ICD-9: 386.11 03/02/2017 Rheumatoid arthritis without rheumatoid factor, multiple sites ICD-10: M06.09 ICD-9: 714.0 08/30/2016 Pressure ulcer of sacral region, stage 1 ICD-10: L89.151 ICD-9: 707.03 08/11/2016 Reason For Visit Reason For Visit Effective Dates Notes cough 07/07/2018 muscle weakness 05/22/2018 diarrhea 04/04/2018 muscle weakness 02/16/2018 constipation 12/30/2017 muscle weakness 10/13/2017 muscle weakness 07/12/2017 Annual Medicare Wellness Exam 06/07/2017 muscle weakness 05/24/2017 muscle weakness 04/27/2017 Hospital Follow Up 04/13/2017 gait abnormality 03/30/2017 gait abnormality 03/02/2017 gait abnormality 08/30/2016 back pain 08/11/2016 Annual Medicare Wellness Exam 06/01/2016 dysuria 04/16/2016 gait abnormality 02/10/2016 Results Observation Observation Code Item Item Code Result Date Urine Culture Ucult Complete Growth of aerobe sent to ref lab 06/14/2018 Dilantin Ord7 DILANTIN 10.5 UG/ML 05/11/2018 Comp Metabolic Mjy731 NA 138 mEq/L 05/11/2018 Comp Metabolic Pnx003 K 4.0 mEq/L 05/11/2018 Comp Metabolic Cch960 CL 100 mEq/L 05/11/2018 Comp Metabolic Wis956 CO2 29.0 mEq/L 05/11/2018 Comp Metabolic Hzp471 ANION GAP 13 05/11/2018 Comp Metabolic Dti344 GLUCOSE 84 mg/dL 05/11/2018 Comp Metabolic Ede785 Creat 0.8 mg/dL 05/11/2018 Comp Metabolic Zxv567 eGFR 77 ml/min/1.73m2 05/11/2018 Comp Metabolic Voh656 BUN 26 mg/dL 05/11/2018 Comp Metabolic Nnp385 B/C Ratio 33.3 Ratio 05/11/2018 Comp Metabolic Afn195 CALCIUM 9.1 mg/dL 05/11/2018 Comp Metabolic Wya588 ALK PHOS 97 U/L 05/11/2018 Comp Metabolic Iie051 AST(SGOT) 14 U/L 05/11/2018 Comp Metabolic Bdv786 ALT(SGPT) 7 U/L 05/11/2018 Comp Metabolic Tra245 BILI T 0.3 mg/dL 05/11/2018 Comp Metabolic Xpu244 ALBUMIN 3.6 g/dL 05/11/2018 Comp Metabolic Fbp557 TPRO 6.9 g/dL 05/11/2018 Comp Metabolic Pvc339 GLOB 3.3 g/dL 05/11/2018 Comp Metabolic Hhc540 A/G Ratio 1.1 Ratio 05/11/2018 Comp Metabolic Jnc851 Osmo 280 mOsmo 05/11/2018 Dilantin Ord7 DILANTIN 10.7 UG/ML 04/25/2018 Valproic Acid Smy287 VALPROIC <10 ug/ml 04/24/2018 Dilantin Ord7 DILANTIN 10.6 UG/ML 04/11/2018 Culture Urine [id number] URINE CULTURE SEE NOTES 02/20/2018 Culture Urine [id number] Continued Results 02/20/2018 Urine Culture Ucult Complete >100,000 col/ml aerobic growth sent to ref lab 02/17/2018 Dilantin Ord7 DILANTIN 14.4 UG/ML 02/16/2018 Comp Metabolic Ykl526 NA 135 mEq/L 02/16/2018 Comp Metabolic Axe943 K 3.8 mEq/L 02/16/2018 Comp Metabolic Qfq235 CL 99 mEq/L 02/16/2018 Comp Metabolic Eek771 CO2 28.0 mEq/L 02/16/2018 Comp Metabolic Bqp151 ANION GAP 12 02/16/2018 Comp Metabolic Kgm129 GLUCOSE 101 mg/dL 02/16/2018 Comp Metabolic Eba547 Creat 0.8 mg/dL 02/16/2018 Comp Metabolic Xpe433 eGFR 75 ml/min/1.73m2 02/16/2018 Comp Metabolic Buj900 BUN 20 mg/dL 02/16/2018 Comp Metabolic Txo454 B/C Ratio 25.0 Ratio 02/16/2018 Comp Metabolic Wzd061 CALCIUM 8.9 mg/dL 02/16/2018 Comp Metabolic Vpv660 ALK PHOS 95 U/L 02/16/2018 Comp Metabolic Ywd195 AST(SGOT) 13 U/L 02/16/2018 Comp Metabolic Gxe595 ALT(SGPT) 7 U/L 02/16/2018 Comp Metabolic Cuj165 BILI T 0.4 mg/dL 02/16/2018 Comp Metabolic Mlb242 ALBUMIN 3.6 g/dL 02/16/2018 Comp Metabolic Snj461 TPRO 7.2 g/dL 02/16/2018 Comp Metabolic Yzo268 GLOB 3.6 g/dL 02/16/2018 Comp Metabolic Xbm402 A/G Ratio 1.0 Ratio 02/16/2018 Comp Metabolic Tpi579 Osmo 273 mOsmo 02/16/2018 Urine Culture Ucult Complete >100,000 col/ml aerobic growth sent to ref lab 11/15/2017 Comp Metabolic Dsg380 NA 136 mEq/L 10/13/2017 Comp Metabolic Knw829 K 4.0 mEq/L 10/13/2017 Comp Metabolic Crb299 CL 98 mEq/L 10/13/2017 Comp Metabolic Hbn589 CO2 28.0 mEq/L 10/13/2017 Comp Metabolic Ttf839 ANION GAP 14 10/13/2017 Comp Metabolic Xjr293 GLUCOSE 94 mg/dL 10/13/2017 Comp Metabolic Pzy455 Creat 0.7 mg/dL 10/13/2017 Comp Metabolic Wjq435 eGFR 82 ml/min/1.73m2 10/13/2017 Comp Metabolic Yqx656 BUN 26 mg/dL 10/13/2017 Comp Metabolic Jta606 B/C Ratio 35.1 Ratio 10/13/2017 Comp Metabolic Mbr693 CALCIUM 9.1 mg/dL 10/13/2017 Comp Metabolic Qud265 ALK PHOS 98 U/L 10/13/2017 Comp Metabolic Jij248 AST(SGOT) 15 U/L 10/13/2017 Comp Metabolic Dsn013 ALT(SGPT) 8 U/L 10/13/2017 Comp Metabolic Otv624 BILI T 0.4 mg/dL 10/13/2017 Comp Metabolic Igc149 ALBUMIN 3.7 g/dL 10/13/2017 Comp Metabolic Jul607 TPRO 7.8 g/dL 10/13/2017 Comp Metabolic Fjh394 GLOB 4.1 g/dL 10/13/2017 Comp Metabolic Tss092 A/G Ratio 0.9 Ratio 10/13/2017 Comp Metabolic Qyn281 Osmo 276 mOsmo 10/13/2017 Dilantin Ord7 DILANTIN 21.4 Result Verified By Repeat Analysis UG/ML 10/13/2017 Dilantin Ord7 DILANTIN 24.1 Result Verified By Repeat Analysis UG/ML 10/03/2017 Dilantin Ord7 DILANTIN 18.1 UG/ML 06/30/2017 Dilantin Ord7 DILANTIN 22.7 UG/ML 06/16/2017 Dilantin Ord7 DILANTIN 26.1 UG/ML 06/07/2017 Dilantin Ord7 DILANTIN 24.1 UG/ML 05/24/2017 Dilantin Ord7 DILANTIN 19.6 UG/ML 05/11/2017 Culture Urine [id number] URINE CULTURE SEE NOTES 05/06/2017 Culture Urine [id number] Continued Results 05/06/2017 Urine Culture Ucult Complete >100,000 col/ml aerobic growth sent to ref lab 05/03/2017 Dilantin Ord7 DILANTIN 12.6 UG/ML 04/27/2017 Calcium Ord79 CALCIUM 9.3 mg/dL 04/19/2017 Dilantin Ord7 DILANTIN 21.6 UG/ML 04/19/2017 Dilantin Ord7 DILANTIN 10.3 UG/ML 04/13/2017 Dilantin Ord7 DILANTIN 21.9 UG/ML 04/07/2017 Comp Metabolic Fkp187 NA 137 mEq/L 03/30/2017 Comp Metabolic Omp961 K 3.7 mEq/L 03/30/2017 Comp Metabolic Zfy677 CL 98 mEq/L 03/30/2017 Comp Metabolic Cnv931 CO2 29.0 mEq/L 03/30/2017 Comp Metabolic Ejs004 ANION GAP 14 03/30/2017 Comp Metabolic Qyq648 GLUCOSE 100 mg/dL 03/30/2017 Comp Metabolic Dlc188 Creat 0.9 mg/dL 03/30/2017 Comp Metabolic Ldc798 eGFR 88 ml/min/1.73m2 03/30/2017 Comp Metabolic Niz129 BUN 22 mg/dL 03/30/2017 Comp Metabolic Rhz643 B/C Ratio 24.4 Ratio 03/30/2017 Comp Metabolic Ymv772 CALCIUM 9.4 mg/dL 03/30/2017 Comp Metabolic Meo373 ALK PHOS 113 U/L 03/30/2017 Comp Metabolic Ltp225 AST(SGOT) 16 U/L 03/30/2017 Comp Metabolic Lfg052 ALT(SGPT) 7 U/L 03/30/2017 Comp Metabolic Fzr593 BILI T 0.3 mg/dL 03/30/2017 Comp Metabolic Dts046 ALBUMIN 3.9 g/dL 03/30/2017 Comp Metabolic Gzm910 TPRO 8.0 g/dL 03/30/2017 Comp Metabolic Vep456 GLOB 4.1 g/dL 03/30/2017 Comp Metabolic Ngj495 A/G Ratio 0.9 Ratio 03/30/2017 Comp Metabolic Fjx456 Osmo 277 mOsmo 03/30/2017 Lipid Ord30 CHOL 214 mg/dL 03/30/2017 Lipid Ord30 HDL 61.0 mg/dl 03/30/2017 Lipid Ord30 TRIG 130 mg/dL 03/30/2017 Lipid Ord30 LDL 127 mg/dL 03/30/2017 Lipid Ord30 C/HDL 3.5 Ratio 03/30/2017 Dilantin Ord7 DILANTIN 32.5 UG/ML 03/30/2017 Folate Ord36 Folate 16.46 ng/mL 03/30/2017 Tsh Ord6 hTSH II 0.95 uIU/mL 03/30/2017 B12 Adq268 B12 592.00 pg/ml 03/30/2017 Cbc With Differential [...] 30.9 pg 03/30/2017 Cbc With Differential Ord2 Nobles% 23.9 % 03/30/2017 Cbc With Differential Ord2 [...] 0.44 K/ul 03/30/2017 Cbc With Differential Ord2 Nobles ABS# 0.3 K/ul 03/30/2017 Cbc With Differential [...] 30.3 pg 08/11/2016 Cbc With Differential Ord2 Nobles% 31.7 % 08/11/2016 Cbc With Differential Ord2 MCHC 34.7 pg 08/11/2016 Cbc With Differential Ord2 Eos% 0.5 % 08/11/2016 Cbc With Differential Ord2 PLT 236 K/ul 08/11/2016 Cbc With Differential Ord2 Baso% 0.5 % 08/11/2016 Cbc With Differential Ord2 RDW 13.2 % 08/11/2016 Cbc With Differential Ord2 Neut ABS# 0.66 K/ul 08/11/2016 Cbc With Differential Ord2 Lymph ABS# 0.59 K/ul 08/11/2016 Cbc With Differential Ord2 Nobles ABS# 0.6 K/ul 08/11/2016 Cbc With Differential Ord2 Eos ABS# 0.0 K/ul 08/11/2016 Cbc With Differential Ord2 Baso ABS# 0.0 K/ul 08/11/2016 Dilantin Ord7 DILANTIN 17.2 UG/ML 08/11/2016 Tsh Ord6 hTSH II 0.82 uIU/mL 08/11/2016 Comp Metabolic Fnu359 NA 131 mEq/L 08/11/2016 Comp Metabolic Giu320 K 4.1 mEq/L 08/11/2016 Comp Metabolic Rud510 CL 93 mEq/L 08/11/2016 Comp Metabolic Mqt795 CO2 29.0 mEq/L 08/11/2016 Comp Metabolic Ktn697 ANION GAP 13 08/11/2016 Comp Metabolic Nwn454 GLUCOSE 120 mg/dL 08/11/2016 Comp Metabolic Uox002 Creat 0.8 mg/dL 08/11/2016 Comp Metabolic Gyi566 eGFR 101 ml/min/1.73m2 08/11/2016 Comp Metabolic Qbc491 BUN 18 mg/dL 08/11/2016 Comp Metabolic Mrg692 B/C Ratio 22.5 Ratio 08/11/2016 Comp Metabolic Gqr734 CALCIUM 9.5 mg/dL 08/11/2016 Comp Metabolic Mhi524 ALK PHOS 104 U/L 08/11/2016 Comp Metabolic Hgg515 AST(SGOT) 16 U/L 08/11/2016 Comp Metabolic Gbo263 ALT(SGPT) 8 U/L 08/11/2016 Comp Metabolic Dra367 BILI T 0.4 mg/dL 08/11/2016 Comp Metabolic Sss297 ALBUMIN 3.8 g/dL 08/11/2016 Comp Metabolic Lto348 TPRO 8.4 g/dL 08/11/2016 Comp Metabolic Ykv907 GLOB 4.6 g/dL 08/11/2016 Comp Metabolic Qsk605 A/G Ratio 0.8 Ratio 08/11/2016 Comp Metabolic Nel195 Osmo 266 mOsmo 08/11/2016 Culture Urine [id number] URINE CULTURE SEE NOTES 04/19/2016 Culture Urine [id number] Continued Results 04/19/2016 Urine Culture Ucult Complete >100,000 col/ml aerobic growth sent to ref lab 04/17/2016 Culture Urine [id number] URINE CULTURE SEE NOTES 02/13/2016 Culture Urine [id number] Continued Results 02/13/2016 Urine Culture Ucult Complete >100,000 col/ml aerobic growth sent to ref lab 02/11/2016 Dilantin Ord7 DILANTIN 19.2 UG/ML 02/10/2016 Review of Systems System Result Effective Dates Constitutional recent illness 07/07/2018 Constitutional No anorexia 07/07/2018 Constitutional No night sweats 2018 Constitutional No chills 07/07/2018 Constitutional No diaphoresis 07/07/2018 Constitutional No fatigue 07/07/2018 Constitutional No fever 07/07/2018 Constitutional No insomnia 07/07/2018 Constitutional No malaise 07/07/2018 Constitutional No weight loss 07/07/2018 Constitutional No weight gain 07/07/2018 Eyes No eye erythema 07/07/2018 Eyes No eye discharge 07/07/2018 Ears/Nose/Throat/Neck dizziness 2018 Ears/Nose/Throat/Neck No nasal allergies 07/07/2018 Ears/Nose/Throat/Neck No nasal discharge 07/07/2018 Ears/Nose/Throat/Neck No otalgia 2018 Ears/Nose/Throat/Neck No sinus congestion 07/07/2018 Ears/Nose/Throat/Neck sore throat 2018 Cardiovascular No chest pain/pressure Cardiovascular No dyspnea 07/07/2018 Cardiovascular No edema 07/07/2018 Respiratory cough 07/07/2018 Respiratory No productive sputum 2018 Gastrointestinal No vomiting 07/07/2018 Gastrointestinal No diarrhea 07/07/2018 Gastrointestinal No constipation 2018 Genitourinary/Nephrology No dysuria 07/07 Musculoskeletal No joint complaint 2018 Dermatologic No rash 07/07/2018 Neurologic No alteration of consciousness 07/07/2018 Constitutional No recent illness 2017 Constitutional No chills 05/22/2018 Constitutional No diaphoresis 05/22/2018 Constitutional No fever 05/22/2018 Eyes No blindness 05/22/2018 Ears/Nose/Throat/Neck No nasal discharge 05/22/2018 Cardiovascular No chest pain/pressure 03/2018 Cardiovascular No dyspnea 05/22/2018 Respiratory No cough 05/22/2018 Respiratory No dyspnea 05/22/2018 Gastrointestinal No abdominal pain 2017 Genitourinary/Nephrology urinary urgency 05/22/2018 Genitourinary/Nephrology urinary frequency 05/22/2018 Musculoskeletal No stiffness 05/22/2018 Musculoskeletal No swelling 05/22/2018 Musculoskeletal muscle weakness 2017 Musculoskeletal No myalgias 05/22/2018 Neurologic No alteration of consciousness 05/22/2018 Neurologic No mental status change 2017 Psychiatric No anxiety 05/22/2018 Psychiatric No depression 05/22/2018 Constitutional recent illness 04/04/2018 Constitutional No chills [...] Result Effective Dates Notes Full Exam - ENT Constitutional general appearance Overall: well nourished 07/07/2018 None Full Exam - ENT Constitutional general appearance Overall: well developed 07/07/2018 None Full Exam - ENT Constitutional general appearance Overall: in no acute distress 07/07/2018 None Full Exam - ENT Ears/Nose/Throat otoscopic exam Overall: external auditory canals normal 07/07/2018 None Full Exam - ENT Ears/Nose/Throat otoscopic exam Overall: tympanic membranes normal 07/07/2018 None Full Exam - ENT Ears/Nose/Throat oropharynx Overall: oral mucosa clear 07/07/2018 None Full Exam - ENT Face and Head palpation Overall: no sinus tenderness 07/07/2018 None Full Exam - ENT Respiratory inspection Overall: normal rate None Full Exam - ENT Respiratory inspection Overall: no retractions 07/07/2018 None Full Exam - ENT Respiratory auscultation Overall: breath sounds clear bilaterally 07/07/2018 None Full Exam - ENT Cardiovascular auscultation of heart Overall: normal heart sounds 07/07/2018 None Full Exam - ENT Cardiovascular auscultation of heart Overall: regular rate 07/07/2018 None Full Exam - ENT Lymphatic palpation of lymph nodes Overall: anterior cervical chain benign 07/07/2018 None Full Exam - ENT Lymphatic palpation of lymph nodes Overall: posterior cervical chain benign 07/07/2018 None Full Exam - ENT Neurologic orientation Overall: oriented to person, place and time 07/07/2018 None Full Exam - ENT Integument inspection of skin Overall: no rash, lesions 07/07/2018 None Full Exam - General 1994 Constitutional general appearance Overall: well developed 05/22/2018 None Full Exam - General 1994 Constitutional general appearance Overall: in no acute distress 05/22/2018 None Full Exam - General 1994 Constitutional general appearance Overall: well nourished 05/22/2018 None Full Exam - General 1994 Eyes conjunctiva /eyelids Overall: conjunctiva clear 05/22/2018 None Full Exam - General 1994 Eyes conjunctiva /eyelids Overall: eyelids normal 05/22/2018 None Full Exam - General 1994 Ears/Nose/Throat lips/teeth/gingiva Overall: benign lips 05/22/2018 None Full Exam - General 1994 Respiratory respiratory effort/rhythm Overall: no retractions 05/22/2018 None Full Exam - General 1994 Respiratory respiratory effort/rhythm Overall: normal rate 05/22/2018 None Full Exam - General 1994 Cardiovascular auscultation of heart Overall: regular rate 05/22/2018 None Full Exam - General 1994 Cardiovascular auscultation of heart Overall: normal heart sounds 05/22/2018 None Full Exam - General 1994 Cardiovascular auscultation of heart Overall: no murmurs 05/22/2018 None Full Exam - General 1994 Abdomen abdominal exam Overall: no tenderness 05/22/2018 None Full Exam - General 1994 Abdomen abdominal exam Overall: normal bowel sounds 05/22/2018 None Full Exam - General 1994 Musculoskeletal head and neck Overall: head atraumatic 05/22/2018 None Full Exam - General 1994 Neurologic cranial nerves Overall: crainial nerves 2 - 12 grossly intact 05/22/2018 None Full Exam - General 1994 Psychiatric orientation/consciousness Overall: oriented to person, place and time 05/22/2018 None Full Exam - General 1994 Psychiatric mood and affect Overall: normal mood and affect 05/22/2018 None Full Exam - General 1994 Psychiatric appearance Overall: well-groomed, good eye contact 05/22/2018 None Full Exam - General 1994 Constitutional [...] Codes Date URINALYSIS NONAUTO W/O SCOPE CPT-4: 58303 06/12/2018 URINALYSIS NONAUTO W/O SCOPE CPT-4: 32662 02/16/2018 URINALYSIS NONAUTO W/O SCOPE CPT-4: 84366 11/14/2017 PPPS, SUBSEQ VISIT CPT -4: G0439 06/07/2017 URINALYSIS NONAUTO W/O SCOPE CPT-4: 86563 05/02/2017 URINALYSIS NONAUTO W/O SCOPE CPT-4: 14406 04/26/2017 PPPS, SUBSEQ VISIT CPT -4: G0439 06/01/2016 URINALYSIS NONAUTO W/O SCOPE CPT-4: 82228 04/16/2016 URINALYSIS NONAUTO W/O SCOPE CPT-4: 67213 02/10/2016 Vital Signs Date Vital 07/07/2018 Blood Pressure 1: 110/62 Code : 8480-6 BMI: 18.8 Code : 47038-4 Heart Rate 1 : 67 bpm Height: 5'5" Temperature: 36.8 (C) / 98.2 (F) Weight: 113 lbs 05/22/2018 Blood Pressure 1: 112/68 Code : 8480-6 BMI: 18.6 Code : 33090-0 Heart Rate 1 : 128 bpm Height: 5'5" SpO2: 98% Weight: 112 lbs 04/04/2018 Blood Pressure 1: 94/52 Code : 8480-6 Heart Rate 1: 120 bpm Height: 5'5" Respiratory Rate: 18 bpm SpO2: 98% Weight: 02/16/2018 Blood Pressure 1: 120/70 Code : 8480-6 BMI: 19.1 Code : 45305-2 Heart Rate 1 : 115 bpm Height: 5'5" SpO2: 97% Weight: 115 lbs 12/30/2017 Blood Pressure 1: 100/68 Code : 8480-6 BMI: 18.3 Code : 59826-5 Heart Rate 1 : 120 bpm Height: 5'5" SpO2: 94% Weight: 110 lbs 10/13/2017 Blood Pressure 1: 136/78 Code : 8480-6 BMI: 18.1 Code : 42102-3 Heart Rate 1 : 126 bpm Height: 5'5" SpO2: 96% Weight: 109 lbs 07/12/2017 Blood Pressure 1: 100/56 Code : 8480-6 BMI: 18.1 Code : 43371-9 Heart Rate 1 : 123 bpm Height: 5'5" SpO2: 99% Weight: 109 lbs 06/07/2017 Blood Pressure 1: 98/68 Code : 8480-6 BMI: 18.1 Code : 48489-3 Heart Rate 1 : 120 bpm Height: 5'5" SpO2: 99% Waist Measure (cm): 80 cm Weight: 109 lbs 05/24/2017 Blood Pressure 1: 104/62 Code : 8480-6 BMI: 18.1 Code : 83783-7 Heart Rate 1 : 121 bpm Height: 5'5" SpO2: 97% Weight: 109 lbs 04/27/2017 Blood Pressure 1: 132/84 Code : 8480-6 BMI: 17.8 Code : 21439-4 Heart Rate 1 : 129 bpm Height: 5'5" SpO2: 99% Weight: 107 lbs 04/13/2017 Blood Pressure 1: 100/66 Code : 8480-6 Heart Rate 1: 120 bpm Height: 5'5" SpO2: 99% Weight: 03/30/2017 Blood Pressure 1: 112/66 Code : 8480-6 BMI: 17.8 Code : 15770-3 Heart Rate 1 : 112 bpm Height: 5'5" SpO2: 98% Weight: 107 lbs 03/02/2017 Blood Pressure 1: 128/78 Code : 8480-6 BMI: 18.1 Code : 47235-5 Heart Rate 1 : 86 bpm Height: 5'5" SpO2: 95% Weight: 109 lbs 08/30/2016 Blood Pressure 1: 102/60 Code : 8480-6 BMI: 18.1 Code : 85048-6 Heart Rate 1 : 135 bpm Height: 5'5" SpO2: 98% Weight: 109 lbs 08/11/2016 Blood Pressure 1: 100/66 Code : 8480-6 BMI: 18.6 Code : 12705-4 Heart Rate 1 : 86 bpm Height: 5'5" SpO2: 94% Weight: 112 lbs 06/01/2016 Blood Pressure 1: 126/80 Code : 8480-6 BMI: 19.0 Code : 69122-1 Heart Rate 1 : 100 bpm Height: 5'5" SpO2: 98% Waist Measure (cm): 64 cm Weight: 114 lbs 04/16/2016 Blood Pressure 1: 124/80 Code : 8480-6 Heart Rate 1: 110 bpm SpO2: 97% 02/10/2016 Blood Pressure 1: 102/64 Code : 8480-6 BMI: 18.3 Code : 84930-2 Heart Rate 1 : 114 bpm Height: 5'5" SpO2: 98% Weight: 110 lbs Functional Status No Functional Status data History of Present Illness Symptom Name Status Result Effective Date Notes Location in the throat 07/07/2018 None Quality constant None Quality dry 2018 None Onset and Resolution sudden in onset 07/07/2018 None Onset of Symptom 3 days ago 07/07/2018 None Frequency of Episodes daily 07/07/2018 None Location diffusely None Quality aching 2018 None Quality scratchy None Onset and Resolution sudden in onset 07/07/2018 None Onset of Symptom 4 days ago 07/07/2018 None Location diffusely None Quality both sides None Quality lower extremities 05/22/2018 None Onset and Resolution ongoing 05/22/2018 None Quality chronic 05/22 None Pertinent Findings Denies anxiety 05/22/2018 None Limitation on Activities moderately limits activities 05/22/2018 None diarrhea Quality intermittent 04/04/2018 None diarrhea Quality [...] Present Encounters Encounter Performer Location Codes Date ([id number]) 68122 EST. PATIENT, LEVEL III Diagnosis: Cough[ICD10: R05] Diagnosis: Acute upper respiratory infection, unspecified[ICD10: J06.9] Mishel Zepeda MD, [facility] CPT-4: 36601 07/07/2018 [id number]) 90589 EST. PATIENT, LEVEL IV Diagnosis: Unsteadiness on feet[ICD10: R26.81] Diagnosis: Other abnormalities of gait and mobility[ICD10: R26.89] Diagnosis: Mixed incontinence[ICD10: N39.46] Diagnosis: Other epilepsy, not intractable, without status epilepticus[ICD10: G40.802] [facility] CPT-4: 98278 2017 [id number]) 01605 EST. PATIENT, LEVEL III Diagnosis: Right upper quadrant abdominal rigidity[ICD10: R19.31] Diagnosis: Functional diarrhea[ICD10: K59.1] Diagnosis: Calculus of gallbladder without cholecystitis without obstruction[ ICD10: K80.20] Magali Zepeda MD, [facility] CPT-4: 83677 04/04/2018 ([id number]) 39711 EST. PATIENT, LEVEL IV Diagnosis: Other epilepsy, not intractable, without status epilepticus[ICD10: G40.802] Diagnosis: Slow transit constipation[ICD10: K59.01] Diagnosis: Dysuria[ICD10: R30.0] Diagnosis: Age-related osteoporosis without current pathological fracture[ICD10 : M81.0] Magali Zepeda MD [facility] CPT-4: 93795 2017 ([id number]) 72744 EST. PATIENT, LEVEL III Diagnosis: Slow transit constipation[ICD10: K59.01] Msihel Steve Zepeda MD [facility] CPT-4: 68951 12/30/2017 ([id number]) 43646 EST. PATIENT, LEVEL IV Diagnosis: Other epilepsy, not intractable, without status epilepticus[ICD10: G40.802] Diagnosis: Slow transit constipation[ICD10: K59.01] Magali Zepeda MD [facility] CPT-4: 17642 10/13/2017 ([id number]) 32854 EST. PATIENT, LEVEL III Diagnosis: Other epilepsy, not intractable, without status epilepticus[ICD10: G40.802] Diagnosis: Dysuria[ICD10: R30.0] Diagnosis: Mixed incontinence[ICD10: N39.46] Magali Zepeda MD [facility] CPT-4: 55429 07/12/2017 ([id number]) 09080 EST. 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 CPT-4: 76157 05/24/2017 ([id number]) 48177 EST. PATIENT, LEVEL III Diagnosis: Other epilepsy, not intractable, without status epilepticus[ICD10: G40.802] Magali Zepeda MD [facility] CPT-4: 86043 2016 ([id number] 77119 EST. 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 CPT-4: 85889 04/13/2017 ([id number]) 26919 EST. 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 CPT-4: 51531 03/30/2017 ([id number]) 64365 EST. PATIENT, LEVEL IV Diagnosis: Calculus of gallbladder without cholecystitis without obstruction[ ICD10: K80.20] Diagnosis: Benign paroxysmal vertigo, bilateral[ICD10: H81.13] Diagnosis: Slow transit constipation[ICD10: K59.01] Magali Zepeda MD, [facility] CPT-4: 52205 03/02/2017 ([id number]) 57124 EST. 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 PATIENT, LEVEL IV Diagnosis: Other epilepsy, not intractable, without status epilepticus[ICD10: G40.802] Diagnosis: Low back pain[ICD10: M54.5] Diagnosis: Pressure ulcer of sacral region, stage 1[ICD10: L89.151] Windy Zepeda MD, [facility] CPT-4: 64602 08/11/2016 ([id number]) 62933 EST. PATIENT, LEVEL III Diagnosis: Urinary tract infection, site not specified[ICD10: N39.0] Diagnosis: Slow transit constipation[ICD10: K59.01] [facility] CPT-4: 74716 04/16/2016 ([id number]) OFFICE VISIT, NEW - LEVEL 4 Diagnosis: Other abnormalities of gait and mobility[ICD10: R26.89] Diagnosis: Dysuria[ICD10: R30.0] Diagnosis: Rheumatoid arthritis without rheumatoid factor, multiple sites[ICD10 : M06.09] [facility] CPT-4: 92986 Plan of Care Planned Activity Notes Codes Status Date Visit Plan: URI -viral- Pt advised to increase fluids, vitamin C. Discussed natural and expected course of this diagnosis and need to alert me if symptoms do not follow expected course, or if any worse. RX sent to patient's pharmacy to start if needed. 07/07/2018 Appointment: Mishel Wilson WPtel: [address] [place], [place] [phone] (30 min) Complex 07/07/2018 Patient Education: Patient Medication Summary Completed 07/07/2018 Appointment: Magali Zepeda WPtel: [address] [place], [place] [phone] (15 min) Moderate 07/03/2018 Appointment: Lab Draw 06/12/2018 Patient Education: Patient Medication Summary Completed 06/12/2018 Visit Plan: Epilepsy - discussed with patient - need to continue with current dose of dilantin - extra dose PRN for symptoms of "twitching" which is a prodrome prior to true seizure occurs. Mixed Incontinence - discussed with patient the need for Kegel exercises. Weakness - continue with strengthening, advised increased activity in the house. 05/22/2018 Appointment: Magali Zepeda WPtel: [address] [place], [place] [phone] (15 min) Moderate 05/22/2018 Patient Education: Patient Medication Summary Completed 05/22/2018 Appointment: Magali Zepeda WPtel: [address] [place], [place] [phone] [place] (15 min) Moderate 05/15/2018 Visit Plan: Diarrhea - with right upper quadrant pain - cholelithiasis - recommendation is for pt to be seen by Dr. Mcintyre - pt sent to his clinic today for work-up and plan for removal of gallbladder. pt will need home health post-surgically as she is already weak and will need physical therapy as well as nursing oversight post-operatively. 04/04/2018 Visit Plan: Diarrhea - with right upper quadrant pain - cholelithiasis - recommendation is for pt to be seen by Dr. Mcintyre - pt sent to his clinic today for work-up and plan for removal of gallbladder. 04/04/2018 Appointment: [facility] [phone] [facility] [place] (15 min) Moderate 04/04/2018 Patient Education: Patient Medication Summary Completed 04/04/2018 Patient Education: Diarrhea Completed 04/04/2018 Visit Plan: Epilepsy - chronic - continue with current regimen - check labs. Osteoporosis - pt is currently getting Prolia in [place], this is a big burden for her - They have asked for her to be set up for prolia for at the end of may at [address]- to call with specific date. Dysuria - UA - +leukocytes - start on keflex - rx sent to pharmacy. Chronic constipation - monitor symptoms. Continue with supportive care. 02/16/2018 Appointment: [facility] [phone] [facility] [place] (15 min) Moderate 02/16/2018 Patient Education: [...] regimen. 12/30/2017 [facility]ment[facility] [phone] [phone] [place] (30 min) Complex 12/30/2017 Patient Education: [...] this regimen. 10/13/2017 Appointment: [facility] [phone] [facility] [place] (15 min) Moderate 10/13/2017 Patient Education: Patient Medication Summary Completed 10/13/2017 Appointment: [facility]eda [facility]el[facility] [phone] [facility] [place] (15 min) Moderate 10/06/2017 Appointment: Lab [...] on accident 07/12/2017 Appointment: [facility]eda [facility]el[facility] [phone] [facility] [place] (15 min) Moderate 07/12/2017 Patient Education: Patient Medication Summary Completed 07/12/2017 Appointment: [facility]el[facility] [phone] [facility] [place] (15 min) Moderate 07/05/2017 [...] care surrogate. 06/07/2017 Appointment: Windy Greco WPtel: [address] [place], [place] [phone] [facility] - Annual Wellness Visit 06/07/2017 Patient Education: [...] per week. 05/24/2017 Appointment: Magali Zepeda WPtel: [facility] (15 min) Moderate 05/24/2017 Patient Education: Patient Medication Summary Completed 05/24/2017 Appointment: Magali Zepeda WPtel: [facility] (15 min) Moderate 05/11/2017 Visit [...] a week) 04/27/2017 Appointment: [facility]epeda WPtel: [phone] [facility] (15 min) Moderate 04/27/2017 Patient Education: Patient [...] symptoms. 04/13/2017 Appointment: Magali Zepeda WPtel: [phone] [facility] [place] (15 min) Moderate 04/13/2017 Patient Education: [...] strategy. 03/30/2017 Appointment: [facility]eda [facility]el[facility] [phone] [facility] [place] (15 min) Moderate 03/30/2017 [...] for constipation. 03/02/2017 Appointment: Magali Zepeda WPtel: [facility] (30 min) Complex 03/02/2017 Patient Education: Patient Medication Summary Completed 03/02/2017 Visit Plan: RA and Gait abnormality -continue with current treatments - supportive care Suspect some of her movement abnormalities may be due to her lamotrigine. 08/30/2016 Appointment: Magali Zepeda WPtel: [facility] (30 min) Complex 08/30/2016 Patient Education: [...] discharge. 08/11/2016 Appointment: [facility] [phone] [facility] (30 min) Complex 08/11/2016 Patient Education: [...] surrogate. 06/01/2016 Appointment: [facility]co [facility]el[facility] [phone] [facility] [facility] - Annual Wellness Visit 06/01/2016 Patient Education: [...] regimen. 04/16/2016 Appointment: [facility] [phone] [phone] [place] (15 min) Moderate 04/16/2016 Patient Education: Patient Medication Summary Completed 04/16/2016 Visit Plan: RA and Gait abnormality - recommended pt to have referral to physical therapy at [facility]. Suspect some of her movement abnormalities may be due to her lamotrigine. 02/10/2016 Appointment: [facility]eda [facility]Ptel[facility] [phone] [facility] [place] New Patient 02/10/2016 Patient Education: Patient Medication Summary Completed 02/10/2016 Instructions Comment start antibiotic if needed over the weekend . URI -viral- Pt advised to increase fluids, vitamin C. Discussed natural and expected course of this diagnosis and need to alert me if symptoms do not follow expected course, or if any worse. RX sent to patient's pharmacy to start if needed. RECOMMEND PROBIOTIC-ANY BRAND IS FINE: [facility], [place]IGN sign release for labs from DR [...] if symptoms not improved on this regimen. increase dilantin to 100mg in morning and 200mg at bedtime . Epilepsy - with elevated dilantin levels recently - attempting to adjust the patient's medications - med changes as follows: increase dilantin to 100mg in morning and 200mg at bedtime Gait Instability - home health referral for therapy, monitor symptoms. . RA and Gait abnormality - recommended pt to have referral to physical therapy at [facility]. Suspect some of her movement abnormalities may be due to her lamotrigine. . 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 Okay to add miralax as directed . [...] symptoms not improved on this regimen. . Diarrhea - with right upper quadrant pain - cholelithiasis - recommendation is for pt to be seen by Dr. Mcintyre - pt sent to his clinic today for work-up and plan for removal of gallbladder. pt will need home health post-surgically as she is already weak and will need physical therapy as well as nursing oversight post-operatively. . Diarrhea - with right upper quadrant pain - cholelithiasis - recommendation is for pt to be seen by Dr. Mcintyre - pt sent to his clinic today for work-up and plan for removal of gallbladder. . Epilepsy - continue with dilantin - [...] symptoms not improved on this regimen. . RA and Gait abnormality -continue with current treatments - supportive care Suspect some of her movement abnormalities may be due to her lamotrigine. . Epilepsy - discussed with patient - need to continue with current dose of dilantin - extra dose PRN for symptoms of "twitching" which is a prodrome prior to true seizure occurs. Mixed Incontinence - discussed with patient the need for Kegel exercises. Weakness - continue with strengthening, advised increased activity in the house. . Medicare Exam - today we discussed [...] care surrogate. . Epilepsy - chronic - symptoms stable - pt states that she is taking 300mg 5 days a week and 400mg two days a week (most weeks and occasionally she will have 400mg three times a week) . Vertigo - referral to [facility] [...] into the urine specimen on accident . Epilepsy - with chronic dilantin use [...] - no change in treatment strategy. . UTI - pt with positive urinalysis - culture sent if appropriate. Antibiotic electronically prescribed to pt's pharmacy of choice. Pt to call if symptoms do not improve. . Epilepsy - chronic - pt on dilantin - check labs today. Dilantin level elevated - at 24 - discussed with pt on the phone and we are planning on patient to have Dilantin 3 tabs 4 days per week and 4 tabs 3 times per week. . Medicare Exam - today we discussed [...] care surrogate. . Epilepsy - chronic - continue with current regimen - check labs. Osteoporosis - pt is currently getting Prolia in [place], this is a big burden for her - They have asked for her to be set up for prolia for at the end of may at [address]- to call with specific date. Dysuria - UA - +leukocytes - start on keflex - rx sent to pharmacy. Chronic constipation - monitor symptoms. Continue with supportive care. Turn every 2 hours and use pillow [...]
[2018-07-17] MEDS ORDERED: NS IV 1000 ML 1,000 ML IV STA (10:56)
--- OUTSIDE RECORDS SUMMARY | 2018-07-17 10:57 | XMS REPORT | CCD ---
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 Inspector Name Role Phone PP Unavailable CCM Unavailable Summary Purpose Interface Exchange Insurance Providers Payer name Policy type / Coverage type Covered alliance party ID Effective Begin Date Effective End Date WPS Medicare Part B Medicare Part B [id number] Unknown [employer] [place] Medicare Part B [id number] Unknown Family history Sister Diagnosis Age At [...] Unknown Retired 02/10/[address]: 918159691 Never smoker 02/10/[address]: 365497399 Never drinks alcohol 02/10/2016 Has the patient [...] Fill Instructions amoxicillin 500 mg tablet RxNorm: 358057 1 Tablet(s) PO TID 07/13/2018 Active lamotrigine 100 mg tablet RxNorm: 892662 TAKE 1 TABLET BY MOUTH IN THE MORNING 07/03/2018 No Stop Date Active Keflex 500 mg capsule RxNorm: 553420 1 Capsule(s) PO QID 201706/18/2018 Inactive please call patient to let her know 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 if having symptoms of seizure activity, take an extra pill 05/29/2018 No Stop Date Active Dilantin Extended 100 mg capsule RxNorm: 706233 Capsule(s) TAKE 1 CAP TID x2 DAYS , THEN 1 CAPSULE qid x2 DAYs, THEN REPEAT CYCLE. if having symptoms of seizure activity, take an extra pill 05/22/2018 Inactive lamotrigine 150 mg tablet RxNorm: 019906 TAKE 1 TABLET BY MOUTH AT BEDTIME 04/17/2018 No Stop Date Active Dilantin Extended 100 mg capsule RxNorm: 345627 TAKE 1 CAPSULE BY MOUTH THREE TIMES DAILY FOR 3 DAYS, THEN 1 CAPSULE FOUR TIMES DAILY FOR 1 DAY, THEN REPEAT CYCLE. 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 Dilantin Extended 100 mg capsule RxNorm: 639117 Capsule(s) PO UD 1 cap TID x 3 days then 1 cap qid x 1 day then repeat cycle 12/15/2017 04/11/2018 Inactive give 1 month supply lamotrigine 150 mg tablet RxNorm: 400087 1 Tablet(s) PO QHS 04/05/2018 Inactive lamotrigine 100 mg tablet RxNorm: 205117 1 Tablet(s) PO QAM 03/30/2018 Inactive Levaquin 500 mg tablet RxNorm: 252920 1 Tablet(s) PO daily 12/11/2017 Inactive Keflex 500 mg capsule RxNorm: 085321 1 Capsule(s) PO TID 201711/20/2017 Inactive Keflex 500 mg capsule RxNorm: 861207 1 Capsule(s) PO TID 201711/13/2017 Inactive Dilantin Extended 100 mg capsule RxNorm: 572509 Capsule(s) PO UD m3pill/tue3 pill/ wed 4 pill/ thur 2pill/fri 3pill/sat 4pill/sun 3 pill 201712/14/2017 Inactive Dilantin Extended 100 mg capsule RxNorm: 116160 Capsule(s) PO UD -Alternate 300 mg for two days in a row and then 400 mg for one day and repeat cycle 10/04/2017 10/12/2017 Inactive Augmentin 500 mg-125 mg tablet RxNorm: 321506 1 Tablet(s) PO TID 07/15/2017 07/14/2017 Inactive Augmentin 500 mg-125 mg tablet RxNorm: 540296 1 Tablet(s) PO TID 07/15/2017 07/21/2017 Inactive Dilantin Extended 100 mg capsule RxNorm: 281998 1 Capsule(s) PO daily -Alternate 300 mg and 400 mg every other day 06/07/2017 10/03/2017 Inactive Bactrim DS 800 mg-160 mg tablet RxNorm: 119231 1 Tablet(s) PO BID 05/02/2017 05/08/2017 Inactive Dilantin Extended 100 mg capsule RxNorm: 831551 1 Capsule(s) PO daily in the afternoon and 2 Capsules PO HS- Will take an additional pill if she has a lot of jerking 04/27/2017 06/06/2017 Inactive Keflex 500 mg capsule RxNorm: 369765 1 Capsule(s) PO TID 201604/23/2017 Inactive dicyclomine 10 mg capsule RxNorm: 432661 1 Capsule(s) PO BID as needed 03/30/2017 05/28/2017 Inactive Senna with Docusate Sodium 8.6 mg-50 mg tablet RxNorm: 558018 1 Tablet(s) PO BID as needed constipation 03/02/20172017 Inactive Keflex 500 mg capsule RxNorm: 462129 1 Capsule(s) PO TID 201608/20/2016 Inactive Levaquin 500 mg tablet RxNorm: 252423 1 Tablet(s) PO daily 09/201504/22/2016 Inactive ciprofloxacin 500 mg tablet RxNorm: 594671 1 Tablet(s) PO BID 02/10/2016 02/16/2016 Inactive prednisone 10 mg tablet RxNorm: 143608 1 Tablet(s) PO as needed for pain No Start Date Active Prolia 60 mg/mL subcutaneous syringe RxNorm: 809958 1 injection SQ Q6 months No Start Date Active lamotrigine 150 mg tablet RxNorm: 401724 1 Tablet(s) PO QHS No Start Date 12/06/2017 Inactive lamotrigine 100 mg tablet RxNorm: 335148 1 Tablet(s) PO QAM No Start Date 12/06/2017 Inactive Dilantin Extended 100 mg capsule RxNorm: 491094 Capsule(s) PO TAKES FOUR CAPSULES FOR 2 DAYS, THEN THREE CAPSULES FOR 1 DAY, THEN REPEATS No Start Date 04/26/2017 Inactive Humira 20 mg/0.4 mL subcutaneous syringe kit RxNorm: 815789 1 injection SQ every 2 weeks- Prescribed [...] Ord7 DILANTIN 10.5 UG/ML 05/11/2018 Comp Metabolic Lci388 NA 138 mEq/L 05/11/2018 Comp Metabolic Ewj924 K 4.0 mEq/L 05/11/2018 Comp Metabolic Lhp060 CL 100 mEq/L 05/11/2018 Comp Metabolic Ykh788 CO2 29.0 mEq/L 05/11/2018 Comp Metabolic Wuv902 ANION GAP 13 05/11/2018 Comp Metabolic Rle352 GLUCOSE 84 mg/dL 05/11/2018 Comp Metabolic Nrw267 Creat 0.8 mg/dL 05/11/2018 Comp Metabolic Exw201 eGFR 77 ml/min/1.73m2 05/11/2018 Comp Metabolic Hzv310 BUN 26 mg/dL 05/11/2018 Comp Metabolic Mzs017 B/C Ratio 33.3 Ratio 05/11/2018 Comp Metabolic Gyg032 CALCIUM 9.1 mg/dL 05/11/2018 Comp Metabolic Juo173 ALK PHOS 97 U/L 05/11/2018 Comp Metabolic Jmj380 AST(SGOT) 14 U/L 05/11/2018 Comp Metabolic Hyu348 ALT(SGPT) 7 U/L 05/11/2018 Comp Metabolic Jxe311 BILI T 0.3 mg/dL 05/11/2018 Comp Metabolic Msy616 ALBUMIN 3.6 g/dL 05/11/2018 Comp Metabolic Ysl237 TPRO 6.9 g/dL 05/11/2018 Comp Metabolic Ese937 GLOB 3.3 g/dL 05/11/2018 Comp Metabolic Jca077 A/G Ratio 1.1 Ratio 05/11/2018 Comp Metabolic Ffw003 Osmo 280 mOsmo 05/11/2018 Dilantin Ord7 DILANTIN 10.7 UG/ML 04/25/2018 Valproic Acid Mjq187 VALPROIC <10 ug/ml 04/24/2018 Dilantin Ord7 DILANTIN 10.6 UG/ML 04/11/2018 Culture Urine [id number] URINE CULTURE SEE NOTES 02/20/2018 Culture Urine [id number] Continued Results 02/20/2018 Urine Culture Ucult Complete >100,000 col/ml aerobic growth sent to ref lab 02/17/2018 Dilantin Ord7 DILANTIN 14.4 UG/ML 02/16/2018 Comp Metabolic Qko220 NA 135 mEq/L 02/16/2018 Comp Metabolic Sbr993 K 3.8 mEq/L 02/16/2018 Comp Metabolic Rax274 CL 99 mEq/L 02/16/2018 Comp Metabolic Ino836 CO2 28.0 mEq/L 02/16/2018 Comp Metabolic Ioo929 ANION GAP 12 02/16/2018 Comp Metabolic Lgw344 GLUCOSE 101 mg/dL 02/16/2018 Comp Metabolic Dmf439 Creat 0.8 mg/dL 02/16/2018 Comp Metabolic Phi239 eGFR 75 ml/min/1.73m2 02/16/2018 Comp Metabolic Jnn919 BUN 20 mg/dL 02/16/2018 Comp Metabolic Ktj158 B/C Ratio 25.0 Ratio 02/16/2018 Comp Metabolic Qtv705 CALCIUM 8.9 mg/dL 02/16/2018 Comp Metabolic Wpt409 ALK PHOS 95 U/L 02/16/2018 Comp Metabolic Xmk971 AST(SGOT) 13 U/L 02/16/2018 Comp Metabolic Swc810 ALT(SGPT) 7 U/L 02/16/2018 Comp Metabolic Hvr226 BILI T 0.4 mg/dL 02/16/2018 Comp Metabolic Rxg333 ALBUMIN 3.6 g/dL 02/16/2018 Comp Metabolic Zfz630 TPRO 7.2 g/dL 02/16/2018 Comp Metabolic Hjg656 GLOB 3.6 g/dL 02/16/2018 Comp Metabolic Hne940 A/G Ratio 1.0 Ratio 02/16/2018 Comp Metabolic Axi432 Osmo 273 mOsmo 02/16/2018 Urine Culture Ucult Complete >100,000 col/ml aerobic growth sent to ref lab 11/15/2017 Comp Metabolic Hfq134 NA 136 mEq/L 10/13/2017 Comp Metabolic Jop357 K 4.0 mEq/L 10/13/2017 Comp Metabolic Vuj744 CL 98 mEq/L 10/13/2017 Comp Metabolic Lkm806 CO2 28.0 mEq/L 10/13/2017 Comp Metabolic Wgp584 ANION GAP 14 10/13/2017 Comp Metabolic Ebe640 GLUCOSE 94 mg/dL 10/13/2017 Comp Metabolic Cej235 Creat 0.7 mg/dL 10/13/2017 Comp Metabolic Xdt773 eGFR 82 ml/min/1.73m2 10/13/2017 Comp Metabolic Obx659 BUN 26 mg/dL 10/13/2017 Comp Metabolic Owc227 B/C Ratio 35.1 Ratio 10/13/2017 Comp Metabolic Vup488 CALCIUM 9.1 mg/dL 10/13/2017 Comp Metabolic Xcb181 ALK PHOS 98 U/L 10/13/2017 Comp Metabolic Srk762 AST(SGOT) 15 U/L 10/13/2017 Comp Metabolic Ure246 ALT(SGPT) 8 U/L 10/13/2017 Comp Metabolic Fid301 BILI T 0.4 mg/dL 10/13/2017 Comp Metabolic Zve775 ALBUMIN 3.7 g/dL 10/13/2017 Comp Metabolic Lbe189 TPRO 7.8 g/dL 10/13/2017 Comp Metabolic Mkg988 GLOB 4.1 g/dL 10/13/2017 Comp Metabolic Wbl208 A/G Ratio 0.9 Ratio 10/13/2017 Comp Metabolic Cbi490 Osmo 276 mOsmo 10/13/2017 Dilantin Ord7 DILANTIN 21.4 Result Verified By Repeat Analysis UG/ML 10/13/2017 Dilantin Ord7 DILANTIN 24.1 Result Verified By Repeat Analysis UG/ML 10/03/2017 Dilantin Ord7 DILANTIN 18.1 UG/ML 06/30/2017 Dilantin Ord7 DILANTIN 22.7 UG/ML 06/16/2017 Dilantin Ord7 DILANTIN 26.1 UG/ML 06/07/2017 Dilantin Ord7 DILANTIN 24.1 UG/ML 05/24/2017 Dilantin Ord7 DILANTIN 19.6 UG/ML 05/11/2017 Culture Urine [id number] URINE CULTURE SEE NOTES 05/06/2017 Culture Urine [id number] Continued Results 05/06/2017 Urine Culture Ucult Complete >100,000 col/ml aerobic growth sent to ref lab 05/03/2017 Dilantin Ord7 DILANTIN 12.6 UG/ML 04/27/2017 Calcium Ord79 CALCIUM 9.3 mg/dL 04/19/2017 Dilantin Ord7 DILANTIN 21.6 UG/ML 04/19/2017 Dilantin Ord7 DILANTIN 10.3 UG/ML 04/13/2017 Dilantin Ord7 DILANTIN 21.9 UG/ML 04/07/2017 Comp Metabolic Yax241 NA 137 mEq/L 03/30/2017 Comp Metabolic Frm171 K 3.7 mEq/L 03/30/2017 Comp Metabolic Txf526 CL 98 mEq/L 03/30/2017 Comp Metabolic Ogh649 CO2 29.0 mEq/L 03/30/2017 Comp Metabolic Vnk636 ANION GAP 14 03/30/2017 Comp Metabolic Zkq136 GLUCOSE 100 mg/dL 03/30/2017 Comp Metabolic Kyz145 Creat 0.9 mg/dL 03/30/2017 Comp Metabolic Qlo752 eGFR 88 ml/min/1.73m2 03/30/2017 Comp Metabolic Twk038 BUN 22 mg/dL 03/30/2017 Comp Metabolic Yxg707 B/C Ratio 24.4 Ratio 03/30/2017 Comp Metabolic Pgl249 CALCIUM 9.4 mg/dL 03/30/2017 Comp Metabolic Vji168 ALK PHOS 113 U/L 03/30/2017 Comp Metabolic Yey985 AST(SGOT) 16 U/L 03/30/2017 Comp Metabolic Ell976 ALT(SGPT) 7 U/L 03/30/2017 Comp Metabolic Zbn490 BILI T 0.3 mg/dL 03/30/2017 Comp Metabolic Dis665 ALBUMIN 3.9 g/dL 03/30/2017 Comp Metabolic Voe172 TPRO 8.0 g/dL 03/30/2017 Comp Metabolic Wrn580 GLOB 4.1 g/dL 03/30/2017 Comp Metabolic Gxk210 A/G Ratio 0.9 Ratio 03/30/2017 Comp Metabolic Zlb858 Osmo 277 mOsmo 03/30/2017 Lipid Ord30 CHOL 214 mg/dL 03/30/2017 Lipid Ord30 HDL 61.0 mg/dl 03/30/2017 Lipid Ord30 TRIG 130 mg/dL 03/30/2017 Lipid Ord30 LDL 127 mg/dL 03/30/2017 Lipid Ord30 C/HDL 3.5 Ratio 03/30/2017 Dilantin Ord7 DILANTIN 32.5 UG/ML 03/30/2017 Folate Ord36 Folate 16.46 ng/mL 03/30/2017 Tsh Ord6 hTSH II 0.95 uIU/mL 03/30/2017 B12 Qyd372 B12 592.00 pg/ml 03/30/2017 Cbc With Differential [...] 30.9 pg 03/30/2017 Cbc With Differential Ord2 [place]% 23.9 % 03/30/2017 Cbc With Differential Ord2 [...] 0.44 K/ul 03/30/2017 Cbc With Differential Ord2 [place] ABS# 0.3 K/ul 03/30/2017 Cbc With Differential [...] 30.3 pg 08/11/2016 Cbc With Differential Ord2 [place]% 31.7 % 08/11/2016 Cbc With Differential Ord2 [...] 0.59 K/ul 08/11/2016 Cbc With Differential Ord2 [place] ABS# 0.6 K/ul 08/11/2016 Cbc With Differential Ord2 [place] ABS# 0.0 K/ul 08/11/2016 Cbc With Differential Ord2 Baso ABS# 0.0 K/ul 08/11/2016 Dilantin Ord7 DILANTIN 17.2 UG/ML 08/11/2016 Tsh Ord6 hTSH II 0.82 uIU/mL 08/11/2016 Comp Metabolic Sqa758 NA 131 mEq/L 08/11/2016 Comp Metabolic Yyn843 K 4.1 mEq/L 08/11/2016 Comp Metabolic Mdn833 CL 93 mEq/L 08/11/2016 Comp Metabolic Wvd476 CO2 29.0 mEq/L 08/11/2016 Comp Metabolic Qkd051 ANION GAP 13 08/11/2016 Comp Metabolic Qzs155 GLUCOSE 120 mg/dL 08/11/2016 Comp Metabolic Pen460 Creat 0.8 mg/dL 08/11/2016 Comp Metabolic Mjl695 eGFR 101 ml/min/1.73m2 08/11/2016 Comp Metabolic Aeo436 BUN 18 mg/dL 08/11/2016 Comp Metabolic Ofn561 B/C Ratio 22.5 Ratio 08/11/2016 Comp Metabolic Vux433 CALCIUM 9.5 mg/dL 08/11/2016 Comp Metabolic Tlo502 ALK PHOS 104 U/L 08/11/2016 Comp Metabolic Ifi196 AST(SGOT) 16 U/L 08/11/2016 Comp Metabolic Mkq139 ALT(SGPT) 8 U/L 08/11/2016 Comp Metabolic Kqo007 BILI T 0.4 mg/dL 08/11/2016 Comp Metabolic Ebs297 ALBUMIN 3.8 g/dL 08/11/2016 Comp Metabolic Hsr145 TPRO 8.4 g/dL 08/11/2016 Comp Metabolic Zyg510 GLOB 4.6 g/dL 08/11/2016 Comp Metabolic Fmp521 A/G Ratio 0.8 Ratio 08/11/2016 Comp Metabolic Ogu176 Osmo 266 mOsmo 08/11/2016 Culture Urine [id number] URINE CULTURE SEE NOTES 04/19/2016 Culture Urine [id number] Continued Results 04/19/2016 Urine Culture Ucult Complete >100,000 col/ml aerobic growth sent to ref lab 04/17/2016 Culture Urine [id number] URINE CULTURE SEE NOTES 02/13/2016 Culture Urine [id number] Continued Results 02/13/2016 Urine Culture Ucult Complete [...] Codes Date URINALYSIS NONAUTO W/O SCOPE CPT-4: 90032 06/12/2018 URINALYSIS NONAUTO W/O SCOPE CPT-4: 27909 02/16/2018 URINALYSIS NONAUTO W/O SCOPE CPT-4: 82799 11/14/2017 PPPS, SUBSEQ VISIT CPT -4: G0439 06/07/2017 URINALYSIS NONAUTO W/O SCOPE CPT-4: 60078 05/02/2017 URINALYSIS NONAUTO W/O SCOPE CPT-4: 59720 04/26/2017 PPPS, SUBSEQ VISIT CPT -4: G0439 06/01/2016 URINALYSIS NONAUTO W/O SCOPE CPT-4: 15297 04/16/2016 URINALYSIS NONAUTO W/O SCOPE CPT-4: 26573 02/10/2016 Vital Signs Date Vital 07/07/2018 Blood Pressure 1: 110/62 Code : 8480-6 BMI: 18.8 Code : 77997-6 Heart Rate 1 : 67 bpm Height: 5'5" Temperature: 36.8 (C) / 98.2 (F) Weight: 113 lbs 05/22/2018 Blood Pressure 1: 112/68 Code : 8480-6 BMI: 18.6 Code : 37523-2 Heart Rate 1 : 128 bpm Height: 5'5" SpO2: 98% Weight: 112 lbs 04/04/2018 Blood Pressure 1: 94/52 Code : 8480-6 Heart Rate 1: 120 bpm Height: 5'5" Respiratory Rate: 18 bpm SpO2: 98% Weight: 02/16/2018 Blood Pressure 1: 120/70 Code : 8480-6 BMI: 19.1 Code : 68667-6 Heart Rate 1 : 115 bpm Height: 5'5" SpO2: 97% Weight: 115 lbs 12/30/2017 Blood Pressure 1: 100/68 Code : 8480-6 BMI: 18.3 Code : 16393-8 Heart Rate 1 : 120 bpm Height: 5'5" SpO2: 94% Weight: 110 lbs 10/13/2017 Blood Pressure 1: 136/78 Code : 8480-6 BMI: 18.1 Code : 56566-7 Heart Rate 1 : 126 bpm Height: 5'5" SpO2: 96% Weight: 109 lbs 07/12/2017 Blood Pressure 1: 100/56 Code : 8480-6 BMI: 18.1 Code : 99467-9 Heart Rate 1 : 123 bpm Height: 5'5" SpO2: 99% Weight: 109 lbs 06/07/2017 Blood Pressure 1: 98/68 Code : 8480-6 BMI: 18.1 Code : 34837-0 Heart Rate 1 : 120 bpm Height: 5'5" SpO2: 99% Waist Measure (cm): 80 cm Weight: 109 lbs 05/24/2017 Blood Pressure 1: 104/62 Code : 8480-6 BMI: 18.1 Code : 03941-7 Heart Rate 1 : 121 bpm Height: 5'5" SpO2: 97% Weight: 109 lbs 04/27/2017 Blood Pressure 1: 132/84 Code : 8480-6 BMI: 17.8 Code : 31104-9 Heart Rate 1 : 129 bpm Height: 5'5" SpO2: 99% Weight: 107 lbs 04/13/2017 Blood Pressure 1: 100/66 Code : 8480-6 Heart Rate 1: 120 bpm Height: 5'5" SpO2: 99% Weight: 03/30/2017 Blood Pressure 1: 112/66 Code : 8480-6 BMI: 17.8 Code : 88156-5 Heart Rate 1 : 112 bpm Height: 5'5" SpO2: 98% Weight: 107 lbs 03/02/2017 Blood Pressure 1: 128/78 Code : 8480-6 BMI: 18.1 Code : 74007-2 Heart Rate 1 : 86 bpm Height: 5'5" SpO2: 95% Weight: 109 lbs 08/30/2016 Blood Pressure 1: 102/60 Code : 8480-6 BMI: 18.1 Code : 82199-0 Heart Rate 1 : 135 bpm Height: 5'5" SpO2: 98% Weight: 109 lbs 08/11/2016 Blood Pressure 1: 100/66 Code : 8480-6 BMI: 18.6 Code : 91221-9 Heart Rate 1 : 86 bpm Height: 5'5" SpO2: 94% Weight: 112 lbs 06/01/2016 Blood Pressure 1: 126/80 Code : 8480-6 BMI: 19.0 Code : 48805-7 Heart Rate 1 : 100 bpm Height: 5'5" SpO2: 98% Waist Measure (cm): 64 cm Weight: 114 lbs 04/16/2016 Blood Pressure 1: 124/80 Code : 8480-6 Heart Rate 1: 110 bpm SpO2: 97% 02/10/2016 Blood Pressure 1: 102/64 Code : 8480-6 BMI: 18.3 Code : 06372-1 Heart Rate 1 : 114 bpm Height: [...] Present Encounters Encounter Performer Location Codes Date ([id number]) [id number] EST. PATIENT, LEVEL III Diagnosis: Cough[ICD10: R05] Diagnosis: Acute upper respiratory infection, unspecified[ICD10: J06.9] Mishel Zepeda MD, [facility] CPT-4: 45975 07/07/2018 [id number]) [id number] EST. PATIENT, LEVEL IV Diagnosis: Unsteadiness on feet[ICD10: R26.81] Diagnosis: Other abnormalities of gait and mobility[ICD10: R26.89] Diagnosis: Mixed incontinence[ICD10: N39.46] Diagnosis: Other epilepsy, not intractable, without status epilepticus[ICD10: G40.802] [facility] CPT-4: 85121 [id number]) [id number] EST. PATIENT, LEVEL III Diagnosis: Right upper quadrant abdominal rigidity[ICD10: R19.31] Diagnosis: Functional diarrhea[ICD10: K59.1] Diagnosis: Calculus of gallbladder without cholecystitis without obstruction[ ICD10: K80.20] Magali Zepeda MD, [facility] CPT-4: 96577 04/04/2018 ([id number]) 60674 EST. PATIENT, LEVEL IV Diagnosis: Other epilepsy, not intractable, without status epilepticus[ICD10: G40.802] Diagnosis: Slow transit constipation[ICD10: K59.01] Diagnosis: Dysuria[ICD10: R30.0] Diagnosis: Age-related osteoporosis without current pathological fracture[ICD10 : M81.0] Magali Zepeda MD [facility] CPT-4: 30143 2017 ([id number]) 29005 EST. PATIENT, LEVEL III Diagnosis: Slow transit constipation[ICD10: K59.01] Mishel Steve Zepeda MD [facility] CPT-4: 01295 12/30/2017 ([id number]) 34806 EST. PATIENT, LEVEL IV Diagnosis: Other epilepsy, not intractable, without status epilepticus[ICD10: G40.802] Diagnosis: Slow transit constipation[ICD10: K59.01] Magali Zepeda MD [facility] CPT-4: 24153 10/13/2017 ([id number]) 94953 EST. PATIENT, LEVEL III Diagnosis: Other epilepsy, not intractable, without status epilepticus[ICD10: G40.802] Diagnosis: Dysuria[ICD10: R30.0] Diagnosis: Mixed incontinence[ICD10: N39.46] Magali Zepeda MD [facility] CPT-4: 71594 07/12/2017 ([id number]) 02222 EST. 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 PATIENT, LEVEL III Diagnosis: Other epilepsy, not intractable, without status epilepticus[ICD10: G40.802] Magali Zepeda MD [facility] CPT-4: 28249 2016 ([id number] EST. 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 PATIENT, LEVEL IV Diagnosis: Calculus of gallbladder without cholecystitis without obstruction[ ICD10: K80.20] Diagnosis: Benign paroxysmal vertigo, bilateral[ICD10: H81.13] Diagnosis: Slow transit constipation[ICD10: K59.01] Magali Zepeda MD, [facility] CPT-4: 88568 03/02/2017 ([id number]) 95210 EST. 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 PATIENT, LEVEL IV Diagnosis: Other epilepsy, not intractable, without status epilepticus[ICD10: G40.802] Diagnosis: Low back pain[ICD10: M54.5] Diagnosis: Pressure ulcer of sacral region, stage 1[ICD10: L89.151] Windy Zepeda MD, [facility] CPT-4: 47647 08/11/2016 ([id number]) 46078 EST. PATIENT, LEVEL III Diagnosis: Urinary tract infection, site not specified[ICD10: N39.0] Diagnosis: Slow transit constipation[ICD10: K59.01] [facility] CPT-4: 44049 04/16/2016 ([id number]) OFFICE VISIT, NEW - LEVEL 4 Diagnosis: Other abnormalities of gait and mobility[ICD10: R26.89] Diagnosis: Dysuria[ICD10: R30.0] Diagnosis: Rheumatoid arthritis without rheumatoid factor, multiple sites[ICD10 : M06.09] [facility] CPT-4: 06907 Plan of Care Planned Activity Notes Codes Status Date Visit Plan: URI -viral- Pt advised to increase fluids, vitamin C. Discussed natural and expected course of this diagnosis and need to alert me if symptoms do not follow expected course, or if any worse. RX sent to patient's pharmacy to start if needed. 07/07/2018 Patient Education: Patient Medication Summary Completed 07/07/2018 Appointment: [facility] ([facility] min) Moderate 07/03/2018 Appointment: Lab Draw [...] the house. 05/22/2018 Appointment: Magali Zepeda WPtel: [facility] ([facility] min) Moderate 05/22/2018 Patient Education: Patient Medication Summary Completed 05/22/2018 Appointment: Magali Zepeda WPtel: [address] [place], [place] [address] (15 min) Moderate 05/15/2018 Visit Plan: Diarrhea [...] gallbladder. 04/04/2018 Appointment: Magali Zepeda WPtel: [phone] [facility] (15 min) Moderate 04/04/2018 Patient Education: Patient Medication Summary Completed 04/04/2018 Patient Education: Diarrhea Completed 04/04/2018 Visit Plan: Epilepsy - chronic - continue with current regimen - check labs. Osteoporosis - pt is currently getting Prolia in [place], this is a big burden for her - They have asked for her to be set up for prolia for at the end of may at [address]- to call with specific date. Dysuria - UA - +leukocytes - start on keflex - rx sent to pharmacy. Chronic constipation - monitor symptoms. Continue with supportive care. 02/16/2018 Appointment: Magali Zepeda WPtel: [phone] [facility] (15 min) Moderate 02/16/2018 Patient Education: Patient [...] regimen. 12/30/2017 Appointment: Mishel Wilson WPtel: [phone] [phone] [place] (30 min) Complex 12/30/2017 Patient [...] this regimen. 10/13/2017 Appointment: Magali Zepeda WPtel: [facility] (15 min) Moderate 10/13/2017 Patient Education: Patient Medication Summary Completed 10/13/2017 Appointment: Magali Zepeda WPtel: [phone] [phone] (15 min) Moderate 10/06/2017 Appointment: Lab Draw [...] on accident 07/12/2017 Appointment: Magali Zepeda WPtel: [facility] [place] (15 min) Moderate 07/12/2017 Patient Education: Patient Medication Summary Completed 07/12/2017 Appointment: Magali Zepeda WPtel: [facility] [place] (15 min) Moderate 07/05/2017 Visit Plan: [...] care surrogate. 06/07/2017 Appointment: Windy Greco WPtel: [address] [place], [place] [id number] [place] [address] - Annual Wellness Visit 06/07/2017 Patient Education: [...] per week. 05/24/2017 Appointment: Magali Zepeda WPtel: [facility] (15 min) Moderate 05/24/2017 Patient Education: Patient Medication Summary Completed 05/24/2017 Appointment: Magali Zepeda WPtel: [address] [place], [place] [address] (15 min) Moderate 05/11/2017 Visit Plan: UTI [...] a week) 04/27/2017 Appointment: Magali Zepeda WPtel: [facility] (15 min) Moderate 04/27/2017 Patient Education: Patient [...] monitor symptoms. 04/13/2017 Appointment: Magali Zepeda WPtel: [facility] (15 min) Moderate 04/13/2017 Patient Education: Patient [...] treatment strategy. 03/30/2017 Appointment: Magali Zepeda WPtel: [facility]8 [facility] [place] (15 min) Moderate 03/30/2017 Patient Education: [...] for constipation. 03/02/2017 Appointment: Magali Zepeda WPtel: [id number] [id number] (30 min) Complex 03/02/2017 Patient Education: Patient Medication Summary Completed 03/02/2017 Visit Plan: RA and Gait abnormality -continue with current treatments - supportive care Suspect some of her movement abnormalities may be due to her lamotrigine. 08/30/2016 Appointment: Magali Zepeda WPtel: [phone] [place] (30 min) Complex 08/30/2016 Patient Education: [...] discharge. 08/11/2016 App[phone] [place] (30 min) Complex 08/11/2016 Patient Education: Patient [...] care surrogate. 06/01/2016 Appointment: Windy Greco WPtel: [address] [place] [address] - Annual Wellness Visit 06/01/2016 Patient Education: [...] this regimen. 04/16/2016 Appointment: Mishel Wilson WPtel: [facility] [place] [phone] (15 min) Moderate 04/16/2016 Patient Education: Patient Medication Summary Completed 04/16/2016 Visit Plan: RA and Gait abnormality - recommended pt to have referral to physical therapy at [facility]. Suspect some of her movement abnormalities may be due to her lamotrigine. 02/10/2016 Appointment: Magali Zepeda WPtel: [facility] [address] New Patient 02/10/2016 Patient Education: Patient Medication Summary Completed 02/10/2016 Instructions Comment start antibiotic if needed over the weekend . URI -viral- Pt advised to increase fluids, vitamin C. Discussed natural and expected course of this diagnosis and need to alert me if symptoms do not follow expected course, or if any worse. RX sent to patient's pharmacy to start if needed. . 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 RECOMMEND PROBIOTIC-ANY BRAND IS FINE: [facility], ALIGN sign release for labs from [...] if symptoms not improved on this regimen. Turn every 2 hours and use pillow [...] in symptoms, worsening redness, warmth, discharge. . Epilepsy - continue with dilantin - [...] abnormalities may be due to her lamotrigine. increase dilantin to 100mg in morning and 200mg at bedtime . Epilepsy - with elevated dilantin levels recently - attempting to adjust the patient's medications - med changes as follows: increase dilantin to 100mg in morning and 200mg at bedtime Gait Instability - home health referral for therapy, monitor symptoms. . Vertigo - referral to [facility] for vertigo. Pt given exercises for [...] - no change in treatment strategy. . RA and Gait abnormality - recommended pt to have referral to physical therapy at [facility]. Suspect some of her movement abnormalities may be due to her lamotrigine. . Epilepsy - chronic - pt on [...] for removal of gallbladder. . Epilepsy - discussed with patient - need to continue with current dose of dilantin - extra dose PRN for symptoms of "twitching" which is a prodrome prior to true seizure occurs. Mixed Incontinence - discussed with patient the need for Kegel exercises. Weakness - continue with strengthening, advised increased activity in the house. . Epilepsy - chronic - symptoms stable - pt states that she is taking 300mg 5 days a week and 400mg two days a week (most weeks and occasionally she will have 400mg three times a week) . UTI - pt with positive urinalysis - culture sent if appropriate. Antibiotic electronically prescribed to pt's pharmacy of choice. Pt to call if symptoms do not improve. . Epilepsy - chronic - continue with current regimen - check labs. Osteoporosis - pt is currently getting Prolia in [place], this is a big burden for her - They have asked for her to be set up for prolia for at the end of may at [address]- to call with specific date. Dysuria - UA - +leukocytes - start on keflex - rx sent to pharmacy. Chronic constipation - monitor symptoms. Continue with supportive care.
--- OUTSIDE RECORDS SUMMARY | 2018-07-17 10:59 | XMS REPORT | CCD ---
Author Author Magali Zepeda Organization Magali Zepeda MD, [facility] Address [address] [place] [address] Phone Care Team Providers Care Public Speaker Name Role Phone PP Unavailable CCM Unavailable Summary Purpose Interface Exchange Insurance Providers Payer name Policy type / Coverage type Covered democrat ID Effective Begin Date Effective End Date WPS Medicare Part B Medicare Part B [id number] Unknown [employer] Medicare Part B [id number] Unknown Family history Sister Diagnosis Age At [...] Unknown Retired 02/10/[address]: 870279171 Never smoker 02/10/[address]: 108732289 Never drinks alcohol 02/10/2016 Has the patient [...] Fill Instructions lamotrigine 100 mg tablet RxNorm: 402052 TAKE 1 TABLET BY MOUTH IN THE MORNING 07/03/2018 No Stop Date Active Keflex 500 mg capsule RxNorm: 174672 1 Capsule(s) PO QID 201706/18/2018 Inactive please call patient to let her know she needs to strip picker rx for antibiotic Dilantin Extended 100 mg capsule RxNorm: 586611 Capsule(s) TAKE 1 CAP TID ON Tue AND 1 CAPSULE QID ON //TUE. if having symptoms of seizure activity, take an extra pill 05/29/2018 No Stop Date Active Dilantin Extended 100 mg capsule RxNorm: 248192 Capsule(s) TAKE 1 CAP TID x2 DAYS , THEN 1 CAPSULE qid x2 DAYs, THEN REPEAT CYCLE. if having symptoms of seizure activity, take an extra pill 05/22/2018 Inactive lamotrigine 150 mg tablet RxNorm: 688897 TAKE 1 TABLET BY MOUTH AT BEDTIME 04/17/2018 No Stop Date Active Dilantin Extended 100 mg capsule RxNorm: 072408 TAKE 1 CAPSULE BY MOUTH THREE TIMES DAILY FOR 3 DAYS, THEN 1 CAPSULE FOUR TIMES DAILY FOR 1 DAY, THEN REPEAT CYCLE. 04/12/2018 05/21/2018 Inactive lamotrigine 100 mg tablet RxNorm: 685181 TAKE 1 TABLET BY MOUTH IN THE MORNING 03/31/2018 07/02/2018 Inactive dicyclomine 10 mg capsule RxNorm: 954190 TAKE ONE CAPSULE BY MOUTH TWICE DAILY NEEDED 02/20/2018 No Stop Date Active Penlac 8 % topical solution RxNorm: 438753 1 Application TOP daily clean off every 7 days and restart application process 02/16/2018 09/13/2018 Active ok to dispense generic Keflex 500 mg capsule RxNorm: 014074 1 Capsule(s) PO QID 201702/22/2018 Inactive please call patient to let her know she needs to strip picker rx for antibiotic Dilantin Extended 100 mg capsule RxNorm: 280804 Capsule(s) PO UD 1 cap TID x 3 days then 1 cap qid x 1 day then repeat cycle 12/15/2017 04/11/2018 Inactive give 1 month supply lamotrigine 150 mg tablet RxNorm: 951998 1 Tablet(s) PO QHS 04/05/2018 Inactive lamotrigine 100 mg tablet RxNorm: 946672 1 Tablet(s) PO QAM 03/30/2018 Inactive Levaquin 500 mg tablet RxNorm: 168438 1 Tablet(s) PO daily 12/11/2017 Inactive Keflex 500 mg capsule RxNorm: 001545 1 Capsule(s) PO TID 201711/20/2017 Inactive Keflex 500 mg capsule RxNorm: 988400 1 Capsule(s) PO TID 201711/13/2017 Inactive Dilantin Extended 100 mg capsule RxNorm: 699212 Capsule(s) PO UD m3pill/tue3 pill/ wed 4 pill/ thur 2pill/fri 3pill/sat 4pill/sun 3 pill 201712/14/2017 Inactive Dilantin Extended 100 mg capsule RxNorm: 237070 Capsule(s) PO UD -Alternate 300 mg for two days in a row and then 400 mg for one day and repeat cycle 10/04/2017 10/12/2017 Inactive Augmentin 500 mg-125 mg tablet RxNorm: 038702 1 Tablet(s) PO TID 07/15/2017 07/14/2017 Inactive Augmentin 500 mg-125 mg tablet RxNorm: 056514 1 Tablet(s) PO TID 07/15/2017 07/21/2017 Inactive Dilantin Extended 100 mg capsule RxNorm: 039845 1 Capsule(s) PO daily -Alternate 300 mg and 400 mg every other day 06/07/2017 10/03/2017 Inactive Bactrim DS 800 mg-160 mg tablet RxNorm: 254137 1 Tablet(s) PO BID 05/02/2017 05/08/2017 Inactive Dilantin Extended 100 mg capsule RxNorm: 526514 1 Capsule(s) PO daily in the afternoon and 2 Capsules PO HS- Will take an additional pill if she has a lot of jerking 04/27/2017 06/06/2017 Inactive Keflex 500 mg capsule RxNorm: 840428 1 Capsule(s) PO TID 201604/23/2017 Inactive dicyclomine 10 mg capsule RxNorm: 904877 1 Capsule(s) PO BID as needed 03/30/2017 05/28/2017 Inactive Senna with Docusate Sodium 8.6 mg-50 mg tablet RxNorm: 940256 1 Tablet(s) PO BID as needed constipation 03/02/20172017 Inactive Keflex 500 mg capsule RxNorm: 415127 1 Capsule(s) PO TID 201608/20/2016 Inactive Levaquin 500 mg tablet RxNorm: 092041 1 Tablet(s) PO daily 09/201504/22/2016 Inactive ciprofloxacin 500 mg tablet RxNorm: 792361 1 Tablet(s) PO BID 02/10/2016 02/16/2016 Inactive prednisone 10 mg tablet RxNorm: 011979 1 Tablet(s) PO as needed for pain No Start Date Active Prolia 60 mg/mL subcutaneous syringe RxNorm: 417250 1 injection SQ Q6 months No Start Date Active lamotrigine 150 mg tablet RxNorm: 511826 1 Tablet(s) PO QHS No Start Date 12/06/2017 Inactive lamotrigine 100 mg tablet RxNorm: 069213 1 Tablet(s) PO QAM No Start Date 12/06/2017 Inactive Dilantin Extended 100 mg capsule RxNorm: 327331 Capsule(s) PO TAKES FOUR CAPSULES FOR 2 DAYS, THEN THREE CAPSULES FOR 1 DAY, THEN REPEATS No Start Date 04/26/2017 Inactive Humira 20 mg/0.4 mL subcutaneous syringe kit RxNorm: 834779 1 injection SQ every 2 weeks- Prescribed by Dr. Baker No Start Date 05/23/2017 Inactive Medication Administered No Medication Administered data Immunizations No Immunization data Assessments Condition Codes Effective Dates Dysuria ICD-10: R30.0 ICD-9: 788.1 06/12/2018 Unsteadiness [...] For Visit Effective Dates Notes muscle weakness 05/22/2018 diarrhea 04/04/2018 muscle weakness [...] Ord7 DILANTIN 10.5 UG/ML 05/11/2018 Comp Metabolic Nhw651 NA 138 mEq/L 05/11/2018 Comp Metabolic Bqv158 K 4.0 mEq/L 05/11/2018 Comp Metabolic Kae823 CL 100 mEq/L 05/11/2018 Comp Metabolic Hzg117 CO2 29.0 mEq/L 05/11/2018 Comp Metabolic Kgb144 ANION GAP 13 05/11/2018 Comp Metabolic Aae126 GLUCOSE 84 mg/dL 05/11/2018 Comp Metabolic Vqr681 Creat 0.8 mg/dL 05/11/2018 Comp Metabolic Rfd760 eGFR 77 ml/min/1.73m2 05/11/2018 Comp Metabolic Xai384 BUN 26 mg/dL 05/11/2018 Comp Metabolic Rlz561 B/C Ratio 33.3 Ratio 05/11/2018 Comp Metabolic Vnf972 CALCIUM 9.1 mg/dL 05/11/2018 Comp Metabolic Zyr888 ALK PHOS 97 U/L 05/11/2018 Comp Metabolic Uww648 AST(SGOT) 14 U/L 05/11/2018 Comp Metabolic Kdn308 ALT(SGPT) 7 U/L 05/11/2018 Comp Metabolic Flk167 BILI T 0.3 mg/dL 05/11/2018 Comp Metabolic Rss515 ALBUMIN 3.6 g/dL 05/11/2018 Comp Metabolic Man200 TPRO 6.9 g/dL 05/11/2018 Comp Metabolic Gtp757 GLOB 3.3 g/dL 05/11/2018 Comp Metabolic Tmv318 A/G Ratio 1.1 Ratio 05/11/2018 Comp Metabolic Yve335 Osmo 280 mOsmo 05/11/2018 Dilantin Ord7 DILANTIN 10.7 UG/ML 04/25/2018 Valproic Acid Eay217 VALPROIC <10 ug/ml 04/24/2018 Dilantin Ord7 DILANTIN 10.6 UG/ML 04/11/2018 Culture Urine [id number] URINE CULTURE SEE NOTES 02/20/2018 Culture Urine [id number] Continued Results 02/20/2018 Urine Culture Ucult Complete >100,000 col/ml aerobic growth sent to ref lab 02/17/2018 Comp Metabolic Qcm220 NA 135 mEq/L 02/16/2018 Comp Metabolic Llf204 K 3.8 mEq/L 02/16/2018 Comp Metabolic Zqf647 CL 99 mEq/L 02/16/2018 Comp Metabolic Ijt957 CO2 28.0 mEq/L 02/16/2018 Comp Metabolic Pet871 ANION GAP 12 02/16/2018 Comp Metabolic Vdd193 GLUCOSE 101 mg/dL 02/16/2018 Comp Metabolic Guw267 Creat 0.8 mg/dL 02/16/2018 Comp Metabolic Rxc593 eGFR 75 ml/min/1.73m2 02/16/2018 Comp Metabolic Pum442 BUN 20 mg/dL 02/16/2018 Comp Metabolic Dpw740 B/C Ratio 25.0 Ratio 02/16/2018 Comp Metabolic Ikw075 CALCIUM 8.9 mg/dL 02/16/2018 Comp Metabolic Aqq061 ALK PHOS 95 U/L 02/16/2018 Comp Metabolic Lqk551 AST(SGOT) 13 U/L 02/16/2018 Comp Metabolic Vok237 ALT(SGPT) 7 U/L 02/16/2018 Comp Metabolic Azv405 BILI T 0.4 mg/dL 02/16/2018 Comp Metabolic Ctq864 ALBUMIN 3.6 g/dL 02/16/2018 Comp Metabolic Ydd002 TPRO 7.2 g/dL 02/16/2018 Comp Metabolic Yhk782 GLOB 3.6 g/dL 02/16/2018 Comp Metabolic Pbo000 A/G Ratio 1.0 Ratio 02/16/2018 Comp Metabolic Rme054 Osmo 273 mOsmo 02/16/2018 Dilantin Ord7 DILANTIN 14.4 UG/ML 02/16/2018 Urine Culture Ucult Complete >100,000 col/ml aerobic growth sent to ref lab 11/15/2017 Dilantin Ord7 DILANTIN 21.4 Result Verified By Repeat Analysis UG/ML 10/13/2017 Comp Metabolic Fvr693 NA 136 mEq/L 10/13/2017 Comp Metabolic Ney368 K 4.0 mEq/L 10/13/2017 Comp Metabolic Avg603 CL 98 mEq/L 10/13/2017 Comp Metabolic Uri890 CO2 28.0 mEq/L 10/13/2017 Comp Metabolic Shb965 ANION GAP 14 10/13/2017 Comp Metabolic Xwk869 GLUCOSE 94 mg/dL 10/13/2017 Comp Metabolic Ymc339 Creat 0.7 mg/dL 10/13/2017 Comp Metabolic Srn266 eGFR 82 ml/min/1.73m2 10/13/2017 Comp Metabolic Lmo364 BUN 26 mg/dL 10/13/2017 Comp Metabolic Wic246 B/C Ratio 35.1 Ratio 10/13/2017 Comp Metabolic Uuy448 CALCIUM 9.1 mg/dL 10/13/2017 Comp Metabolic Oby532 ALK PHOS 98 U/L 10/13/2017 Comp Metabolic Oas800 AST(SGOT) 15 U/L 10/13/2017 Comp Metabolic Cre193 ALT(SGPT) 8 U/L 10/13/2017 Comp Metabolic Lap155 BILI T 0.4 mg/dL 10/13/2017 Comp Metabolic Led751 ALBUMIN 3.7 g/dL 10/13/2017 Comp Metabolic Nko398 TPRO 7.8 g/dL 10/13/2017 Comp Metabolic Mpk713 GLOB 4.1 g/dL 10/13/2017 Comp Metabolic Kre714 A/G Ratio 0.9 Ratio 10/13/2017 Comp Metabolic Fzs970 Osmo 276 mOsmo 10/13/2017 Dilantin Ord7 DILANTIN 24.1 Result Verified By Repeat Analysis UG/ML 10/03/2017 Dilantin Ord7 DILANTIN 18.1 UG/ML 06/30/2017 Dilantin Ord7 DILANTIN 22.7 UG/ML 06/16/2017 Dilantin Ord7 DILANTIN 26.1 UG/ML 06/07/2017 Dilantin Ord7 DILANTIN 24.1 UG/ML 05/24/2017 Dilantin Ord7 DILANTIN 19.6 UG/ML 05/11/2017 Culture Urine [id number] URINE CULTURE SEE NOTES 05/06/2017 Culture Urine [id number] Continued Results 05/06/2017 Urine Culture Ucult Complete >100,000 col/ml aerobic growth sent to ref lab 05/03/2017 Dilantin Ord7 DILANTIN 12.6 UG/ML 04/27/2017 Calcium Ord79 CALCIUM 9.3 mg/dL 04/19/2017 Dilantin Ord7 DILANTIN 21.6 UG/ML 04/19/2017 Dilantin Ord7 DILANTIN 10.3 UG/ML 04/13/2017 Dilantin Ord7 DILANTIN 21.9 UG/ML 04/07/2017 Cbc With Differential Ord2 WBC 1.09 K/ul [...] 30.9 pg 03/30/2017 Cbc With Differential Ord2 [place]% 23.9 % 03/30/2017 Cbc With Differential Ord2 MCHC 34.6 pg 03/30/2017 Cbc With Differential Ord2 Eos% 7.3 % 03/30/2017 Cbc With Differential Ord2 PLT 149 K/ul 03/30/2017 Cbc With Differential Ord2 Baso% 0.9 % 03/30/2017 Cbc With Differential Ord2 Neut ABS# 0.30 K/ul 03/30/2017 Cbc With Differential Ord2 RDW 13.3 % 03/30/2017 Cbc With Differential Ord2 Lymph ABS# 0.44 K/ul 03/30/2017 Cbc With Differential Ord2 [place] ABS# 0.3 K/ul 03/30/2017 Cbc With Differential Ord2 Eos ABS# 0.1 K/ul 03/30/2017 Cbc With Differential Ord2 Baso ABS# 0.0 K/ul 03/30/2017 Comp Metabolic Dqw087 NA 137 mEq/L 03/30/2017 Comp Metabolic Dwt621 K 3.7 mEq/L 03/30/2017 Comp Metabolic Xdu447 CL 98 mEq/L 03/30/2017 Comp Metabolic Mhq727 CO2 29.0 mEq/L 03/30/2017 Comp Metabolic Nuc913 ANION GAP 14 03/30/2017 Comp Metabolic Iwz071 GLUCOSE 100 mg/dL 03/30/2017 Comp Metabolic Oyx662 Creat 0.9 mg/dL 03/30/2017 Comp Metabolic Tcv895 eGFR 88 ml/min/1.73m2 03/30/2017 Comp Metabolic Pxv621 BUN 22 mg/dL 03/30/2017 Comp Metabolic Rzc674 B/C Ratio 24.4 Ratio 03/30/2017 Comp Metabolic Gyt049 CALCIUM 9.4 mg/dL 03/30/2017 Comp Metabolic Czn819 ALK PHOS 113 U/L 03/30/2017 Comp Metabolic Ooy262 AST(SGOT) 16 U/L 03/30/2017 Comp Metabolic Gxg525 ALT(SGPT) 7 U/L 03/30/2017 Comp Metabolic Klu625 BILI T 0.3 mg/dL 03/30/2017 Comp Metabolic Whd770 ALBUMIN 3.9 g/dL 03/30/2017 Comp Metabolic Elf706 TPRO 8.0 g/dL 03/30/2017 Comp Metabolic Alv542 GLOB 4.1 g/dL 03/30/2017 Comp Metabolic Qzi777 A/G Ratio 0.9 Ratio 03/30/2017 Comp Metabolic Mpj597 Osmo 277 mOsmo 03/30/2017 Lipid Ord30 CHOL 214 mg/dL 03/30/2017 Lipid Ord30 HDL 61.0 mg/dl 03/30/2017 Lipid Ord30 TRIG 130 mg/dL 03/30/2017 Lipid Ord30 LDL 127 mg/dL 03/30/2017 Lipid Ord30 C/HDL 3.5 Ratio 03/30/2017 Dilantin Ord7 DILANTIN 32.5 UG/ML 03/30/2017 Folate Ord36 Folate 16.46 ng/mL 03/30/2017 Tsh Ord6 hTSH II 0.95 uIU/mL 03/30/2017 B12 Eob990 B12 592.00 pg/ml 03/30/2017 Comp Metabolic Zyz413 NA 131 mEq/L 08/11/2016 Comp Metabolic Yhf687 K 4.1 mEq/L 08/11/2016 Comp Metabolic Lor013 CL 93 mEq/L 08/11/2016 Comp Metabolic Wrq029 CO2 29.0 mEq/L 08/11/2016 Comp Metabolic Itr158 ANION GAP 13 08/11/2016 Comp Metabolic Htq356 GLUCOSE 120 mg/dL 08/11/2016 Comp Metabolic Tnb354 Creat 0.8 mg/dL 08/11/2016 Comp Metabolic Fdm630 eGFR 101 ml/min/1.73m2 08/11/2016 Comp Metabolic Prd301 BUN 18 mg/dL 08/11/2016 Comp Metabolic Bbu625 B/C Ratio 22.5 Ratio 08/11/2016 Comp Metabolic Sik814 CALCIUM 9.5 mg/dL 08/11/2016 Comp Metabolic Oiu623 ALK PHOS 104 U/L 08/11/2016 Comp Metabolic Phy892 AST(SGOT) 16 U/L 08/11/2016 Comp Metabolic Isf839 ALT(SGPT) 8 U/L 08/11/2016 Comp Metabolic Lmc273 BILI T 0.4 mg/dL 08/11/2016 Comp Metabolic Bqp094 ALBUMIN 3.8 g/dL 08/11/2016 Comp Metabolic Nrs530 TPRO 8.4 g/dL 08/11/2016 Comp Metabolic Wfs626 GLOB 4.6 g/dL 08/11/2016 Comp Metabolic Whe384 A/G Ratio 0.8 Ratio 08/11/2016 Comp Metabolic Aiv889 Osmo 266 mOsmo 08/11/2016 Tsh Ord6 hTSH II 0.82 uIU/mL 08/11/2016 Dilantin Ord7 DILANTIN 17.2 UG/ML 08/11/2016 Cbc With Differential Ord2 WBC 1.86 K/ul 08/11/2016 Cbc With Differential Ord2 RBC 4.06 M/ul 08/11/2016 Cbc With Differential Ord2 HGB 12.3 g/dl 08/11/2016 Cbc With Differential Ord2 Neut% 35.6 % 08/11/2016 Cbc With Differential Ord2 HCT 35.4 % 08/11/2016 Cbc With Differential Ord2 Lymph% 31.7 % 08/11/2016 Cbc With Differential Ord2 MCV 87.2 fl 08/11/2016 Cbc With Differential Ord2 MCH 30.3 pg 08/11/2016 Cbc With Differential Ord2 [place]% 31.7 % 08/11/2016 Cbc With Differential Ord2 Eos% 0.5 % 08/11/2016 Cbc With Differential Ord2 MCHC 34.7 pg 08/11/2016 Cbc With Differential Ord2 Baso% 0.5 % 08/11/2016 Cbc With Differential Ord2 PLT 236 K/ul 08/11/2016 Cbc With Differential Ord2 Neut ABS# 0.66 K/ul 08/11/2016 Cbc With Differential Ord2 RDW 13.2 % 08/11/2016 Cbc With Differential Ord2 Lymph ABS# 0.59 K/ul 08/11/2016 Cbc With Differential Ord2 [place] ABS# 0.6 K/ul 08/11/2016 Cbc With Differential Ord2 Eos ABS# 0.0 K/ul 08/11/2016 Cbc With Differential Ord2 Baso ABS# 0.0 K/ul 08/11/2016 Culture Urine [id number] URINE CULTURE SEE NOTES 04/19/2016 Culture Urine [id number] Continued Results 04/19/2016 Urine Culture Ucult Complete >100,000 col/ml aerobic growth sent to ref lab 04/17/2016 Culture Urine [id number] URINE CULTURE SEE NOTES 02/13/2016 Culture Urine [id number] Continued Results 02/13/2016 Urine Culture Ucult Complete [...] Codes Date URINALYSIS NONAUTO W/O SCOPE CPT-4: 25417 06/12/2018 URINALYSIS NONAUTO W/O SCOPE CPT-4: 34512 02/16/2018 URINALYSIS NONAUTO W/O SCOPE CPT-4: 24484 11/14/2017 PPPS, SUBSEQ VISIT CPT -4: G0439 06/07/2017 URINALYSIS NONAUTO W/O SCOPE CPT-4: 86154 05/02/2017 URINALYSIS NONAUTO W/O SCOPE CPT-4: 94377 04/26/2017 PPPS, SUBSEQ VISIT CPT -4: G0439 06/01/2016 URINALYSIS NONAUTO W/O SCOPE CPT-4: 78794 04/16/2016 URINALYSIS NONAUTO W/O SCOPE CPT-4: 89583 02/10/2016 Vital Signs Date Vital 05/22/2018 Blood Pressure 1: 112/68 Code : 8480-6 BMI: 18.6 Code : 18015-4 Heart Rate 1 : 128 bpm Height: 5'5" SpO2: 98% Weight: 112 lbs 04/04/2018 Blood Pressure 1: 94/52 Code : 8480-6 Heart Rate 1: 120 bpm Height: 5'5" Respiratory Rate: 18 bpm SpO2: 98% Weight: 02/16/2018 Blood Pressure 1: 120/70 Code : 8480-6 BMI: 19.1 Code : 26000-9 Heart Rate 1 : 115 bpm Height: 5'5" SpO2: 97% Weight: 115 lbs 12/30/2017 Blood Pressure 1: 100/68 Code : 8480-6 BMI: 18.3 Code : 69773-1 Heart Rate 1 : 120 bpm Height: 5'5" SpO2: 94% Weight: 110 lbs 10/13/2017 Blood Pressure 1: 136/78 Code : 8480-6 BMI: 18.1 Code : 21873-3 Heart Rate 1 : 126 bpm Height: 5'5" SpO2: 96% Weight: 109 lbs 07/12/2017 Blood Pressure 1: 100/56 Code : 8480-6 BMI: 18.1 Code : 03579-2 Heart Rate 1 : 123 bpm Height: 5'5" SpO2: 99% Weight: 109 lbs 06/07/2017 Blood Pressure 1: 98/68 Code : 8480-6 BMI: 18.1 Code : 82421-7 Heart Rate 1 : 120 bpm Height: 5'5" SpO2: 99% Waist Measure (cm): 80 cm Weight: 109 lbs 05/24/2017 Blood Pressure 1: 104/62 Code : 8480-6 BMI: 18.1 Code : 57049-2 Heart Rate 1 : 121 bpm Height: 5'5" SpO2: 97% Weight: 109 lbs 04/27/2017 Blood Pressure 1: 132/84 Code : 8480-6 BMI: 17.8 Code : 70913-0 Heart Rate 1 : 129 bpm Height: 5'5" SpO2: 99% Weight: 107 lbs 04/13/2017 Blood Pressure 1: 100/66 Code : 8480-6 Heart Rate 1: 120 bpm Height: 5'5" SpO2: 99% Weight: 03/30/2017 Blood Pressure 1: 112/66 Code : 8480-6 BMI: 17.8 Code : 59128-2 Heart Rate 1 : 112 bpm Height: 5'5" SpO2: 98% Weight: 107 lbs 03/02/2017 Blood Pressure 1: 128/78 Code : 8480-6 BMI: 18.1 Code : 03511-4 Heart Rate 1 : 86 bpm Height: 5'5" SpO2: 95% Weight: 109 lbs 08/30/2016 Blood Pressure 1: 102/60 Code : 8480-6 BMI: 18.1 Code : 27949-6 Heart Rate 1 : 135 bpm Height: 5'5" SpO2: 98% Weight: 109 lbs 08/11/2016 Blood Pressure 1: 100/66 Code : 8480-6 BMI: 18.6 Code : 59074-1 Heart Rate 1 : 86 bpm Height: 5'5" SpO2: 94% Weight: 112 lbs 06/01/2016 Blood Pressure 1: 126/80 Code : 8480-6 BMI: 19.0 Code : 82020-1 Heart Rate 1 : 100 bpm Height: 5'5" SpO2: 98% Waist Measure (cm): 64 cm Weight: 114 lbs 04/16/2016 Blood Pressure 1: 124/80 Code : 8480-6 Heart Rate 1: 110 bpm SpO2: 97% 02/10/2016 Blood Pressure 1: 102/64 Code : 8480-6 BMI: 18.3 Code : 45820-9 Heart Rate 1 : 114 bpm Height: 5'5" SpO2: 98% Weight: 110 lbs Functional Status No Functional Status data History of Present Illness Symptom Name Status Result Effective Date Notes Location diffusely None Quality both sides None [...] Present Encounters Encounter Performer Location Codes Date ([id number]) [id number] EST. PATIENT, LEVEL IV Diagnosis: Unsteadiness on feet[ICD10: R26.81] Diagnosis: Other abnormalities of gait and mobility[ICD10: R26.89] Diagnosis: Mixed incontinence[ICD10: N39.46] Diagnosis: Other epilepsy, not intractable, without status epilepticus[ICD10: G40.802] [facility] CPT-4: 45796 2017 [id number]) 18177 EST. PATIENT, LEVEL III Diagnosis: Right upper quadrant abdominal rigidity[ICD10: R19.31] Diagnosis: Functional diarrhea[ICD10: K59.1] Diagnosis: Calculus of gallbladder without cholecystitis without obstruction[ ICD10: K80.20] [facility] CPT-4: 90503 04/04/2018 ([id number]) 33634 EST. PATIENT, LEVEL IV Diagnosis: Other epilepsy, not intractable, without status epilepticus[ICD10: G40.802] Diagnosis: Slow transit constipation[ICD10: K59.01] Diagnosis: Dysuria[ICD10: R30.0] Diagnosis: Age-related osteoporosis without current pathological fracture[ICD10 : M81.0] Magali Zepeda MD, [facility] CPT-4: 31449 2017 ([id number]) 46233 EST. PATIENT, LEVEL III Diagnosis: Slow transit constipation[ICD10: K59.01] Mishel Steve Zepeda MD, [facility] CPT-4: 40219 12/30/2017 ([id number]) 91508 EST. PATIENT, LEVEL IV Diagnosis: Other epilepsy, not intractable, without status epilepticus[ICD10: G40.802] Diagnosis: Slow transit constipation[ICD10: K59.01] Magali Zepeda MD, [facility] CPT-4: 11708 10/13/2017 ([id number]) 76732 EST. PATIENT, LEVEL III Diagnosis: Other epilepsy, not intractable, without status epilepticus[ICD10: G40.802] Diagnosis: Dysuria[ICD10: R30.0] Diagnosis: Mixed incontinence[ICD10: N39.46] Magali Zepeda MD, [facility] CPT-4: 52278 07/12/2017 ([id number]) 24887 EST. 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 CPT-4: 85525 05/24/2017 ([id number]) 75529 EST. PATIENT, LEVEL III Diagnosis: Other epilepsy, not intractable, without status epilepticus[ICD10: G40.802] Magali Zepeda MD [facility] CPT-4: 05985 2016 ([id number]) 63100 EST. 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 CPT-4: 68877 04/13/2017 ([id number]) 71659 EST. 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 CPT-4: 14077 03/30/2017 ([id number]) 51660 EST. PATIENT, LEVEL IV Diagnosis: Calculus of gallbladder without cholecystitis without obstruction[ ICD10: K80.20] Diagnosis: Benign paroxysmal vertigo, bilateral[ICD10: H81.13] Diagnosis: Slow transit constipation[ICD10: K59.01] Magali Zepeda MD, [facility] CPT-4: 58414 03/02/2017 ([id number]) 15463 EST. 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 CPT-4: 29381 08/30/2016 13536 EST. PATIENT, LEVEL IV Diagnosis: Other epilepsy, not intractable, without status epilepticus[ICD10: G40.802] Diagnosis: Low back pain[ICD10: M54.5] Diagnosis: Pressure ulcer of sacral region, stage 1[ICD10: L89.151] Windy Zepeda MD, [facility] CPT-4: 94853 08/11/2016 ([id number]) 64111 EST. PATIENT, LEVEL III Diagnosis: Urinary tract infection, site not specified[ICD10: N39.0] Diagnosis: Slow transit constipation[ICD10: K59.01] Mishel Zepeda MD, [facility] CPT-4: 19306 04/16/2016 ([id number]) OFFICE VISIT, NEW - LEVEL 4 Diagnosis: Other abnormalities of gait and mobility[ICD10: R26.89] Diagnosis: Dysuria[ICD10: R30.0] Diagnosis: Rheumatoid arthritis without rheumatoid factor, multiple sites[ICD10 : M06.09] Magali Zepeda MD, [facility] CPT-4: 48303 Plan of Care Planned Activity Notes Codes Status Date Appointment: Lab Draw 06/12/2018 Patient Education: Patient [...] the house. 05/22/2018 Appointment: Magali Zepeda WPtel: [phone] [facility] [place] (15 min) Moderate 05/22/2018 Patient Education: Patient Medication Summary Completed 05/22/2018 Appointment: [phone] [place] (15 min) Moderate 05/15/2018 Visit Plan: [...] of gallbladder. 04/04/2018 Appointment: [phone] [place] (15 min) Moderate 04/04/2018 Patient Education: [...] supportive care. 02/16/2018 Appointment: Magali Zepeda WPtel: [phone] [facility] [place] (15 min) Moderate 02/16/2018 Patient Education: [...] regimen. 12/30/2017 Appointment: Mishel Wilson WPtel: [phone] [phone] [place] (30 min) Complex 12/30/2017 Patient Education: [...] regimen. 10/13/2017 Appointment: Magali Zepeda WPtel: [phone] [facility] [place] (15 min) Moderate 10/13/2017 Patient Education: Patient Medication Summary Completed 10/13/2017 Appointment: Magali Zepeda WPtel: [phone] [facility] [place] (15 min) Moderate 10/06/2017 Appointment: Lab [...] on accident 07/12/2017 Appointment: [facility] [phone] [facility] (15 min) Moderate 07/12/2017 Patient Education: Patient Medication Summary Completed 07/12/2017 Appointment: [facility]el[facility] [phone] [facility] [place] (15 min) Moderate 07/05/2017 Visit [...] for health care surrogate. 06/07/2017 [id number] [facility] - Annual Wellness Visit 06/07/2017 Patient [...] Appointment: Magali Zepeda WPtel: [id number] (15 min) Moderate 05/24/2017 Patient Education: Patient Medication Summary Completed 05/24/2017 Appointment: Mag[facility]epeda WPtel[facility] [phone] [id number] (15 min) Moderate 05/11/2017 Visit Plan: [...] week) 04/27/2017 Appointment: Mag[facility]epeda WPtel[facility] [phone] [id number] (15 min) Moderate 04/27/2017 Patient Education: [...] monitor symptoms. 04/13/2017 Appointment: Magali Zepeda WPtel: [address] [facility] [place] (15 min) Moderate 04/13/2017 Patient [...] strategy. 03/30/2017 Appointment: Magali Zepeda WPtel: [phone] [facility] [place] (15 min) Moderate 03/30/2017 [...] for constipation. 03/02/2017 Appointment: Magali Zepeda WPtel: [phone] [place] (30 min) Complex 03/02/2017 Patient Education: Patient Medication Summary Completed 03/02/2017 Visit Plan: RA and Gait abnormality -continue with current treatments - supportive care Suspect some of her movement abnormalities may be due to her lamotrigine. 08/30/2016 Appointment: Magali Zepeda WPtel: [facility] (30 min) Complex 08/30/2016 Patient [...] warmth, discharge. 08/11/2016 Appointment: Windy Greco WPtel: [phone] [facility] (30 min) Complex 08/11/2016 Patient Education: Patient [...] care surrogate. 06/01/2016 Appointment: Windy Greco WPtel: [phone] [facility] [facility] - Annual Wellness Visit 06/01/2016 Patient Education: [...] Appointment: Mishel Wilson WPtel: [phone] (15 min) Moderate 04/16/2016 Patient Education: Patient Medication Summary Completed 04/16/2016 Visit Plan: RA and Gait abnormality - recommended pt to have referral to physical therapy at [facility]. Suspect some of her movement abnormalities may be due to her lamotrigine. 02/10/2016 Appointment: Magali Zepeda WPtel: [facility] [facility] 02/10/2016 Patient Education: Patient Medication Summary Completed 02/10/2016 Instructions Comment . Epilepsy - chronic - symptoms stable [...] into the urine specimen on accident . RA and Gait abnormality - recommended pt to have referral to physical therapy [facility]. Suspect some of her movement abnormalities may be due to her lamotrigine. . UTI - pt with positive urinalysis [...] work-up and plan for removal of gallbladder. Turn every 2 hours and use pillow [...] change in symptoms, worsening redness, warmth, discharge. RECOMMEND PROBIOT[employer] FINE: [email or web address], ALIGN sign release for labs from DR [...] symptoms not improved on this regimen. . Epilepsy - continue with dilantin - [...] symptoms not improved on this regimen. . Epilepsy - discussed with patient - [...] her [employer] paperwork for health care surrogate. increase dilantin to 100mg in morning and 200mg at bedtime . Epilepsy - with elevated dilantin levels recently - attempting to adjust the patient's medications - med changes as follows: increase dilantin to 100mg in morning and 200mg at bedtime Gait Instability - home health referral for therapy, monitor symptoms. . Vertigo - referral to [facility] [...] as needed for constipation. . Epilepsy - with chronic dilantin use [...] treatment strategy. . Epilepsy - chronic - continue with current regimen - check labs. Osteoporosis - pt is currently getting Prolia in [place], this is a big burden for her - They have asked for her to be set up for prolia for at the end of may at [address]- to call with specific date. Dysuria - UA - +leukocytes - start on keflex - rx sent to pharmacy. Chronic constipation - monitor symptoms. Continue with supportive care. . RA and Gait abnormality -continue with current treatments - supportive care Suspect some of her movement abnormalities may be due to her lamotrigine. . Epilepsy - chronic - symptoms stable - pt states that she is taking 300mg 5 days a week and 400mg two days a week (most weeks and occasionally she will have 400mg three times a week)
[2018-07-17] MEDS ORDERED: ONDANSETRON 4 MG/2 ML (SDV) Z0FRAN IVP ONE (11:00)
--- OUTSIDE RECORDS SUMMARY | 2018-07-17 11:01 | XMS REPORT | CCD ---
Author Author Magali Zepeda Organization Magali Zepeda MD, [facility] Address [address] [place] [address] Phone Care Team Providers Care Automotive Instructor Name Role Phone PP Unavailable CCM Unavailable Summary Purpose Interface Exchange Insurance Providers Payer name Policy type / Coverage type Covered democrat ID Effective Begin Date Effective End Date WPS Medicare Part B Medicare Part B [id number] Unknown [employer] Medicare Part B [id number] Unknown Family history Sister Diagnosis Age At [...] Unknown Retired 02/10/[address]: 949903226 Never smoker 02/10/[address]: 595892405 Never drinks alcohol 02/10/2016 Has the patient [...] Start Date Stop Date Status Fill Instructions Keflex 500 mg capsule RxNorm: 402139 1 Capsule(s) PO QID 201706/18/2018 Active please 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 if having symptoms of seizure activity, take an extra pill 05/29/2018 No Stop Date Active Dilantin Extended 100 mg capsule RxNorm: 655623 Capsule(s) TAKE 1 CAP TID x2 DAYS , THEN 1 CAPSULE qid x2 DAYs, THEN REPEAT CYCLE. if having symptoms of seizure activity, take an extra pill 05/22/2018 Inactive lamotrigine 150 mg tablet RxNorm: 167344 TAKE 1 TABLET BY MOUTH AT BEDTIME 04/17/2018 No Stop Date Active Dilantin Extended 100 mg capsule RxNorm: 980117 TAKE 1 CAPSULE BY MOUTH THREE TIMES DAILY FOR 3 DAYS, THEN 1 CAPSULE FOUR TIMES DAILY FOR 1 DAY, THEN REPEAT CYCLE. 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 Dilantin Extended 100 mg capsule RxNorm: 261223 Capsule(s) PO UD 1 cap TID x 3 days then 1 cap qid x 1 day then repeat cycle 12/15/2017 04/11/2018 Inactive give 1 month supply lamotrigine 150 mg tablet RxNorm: 245744 1 Tablet(s) PO QHS 04/05/2018 Inactive lamotrigine 100 mg tablet RxNorm: 533080 1 Tablet(s) PO QAM 03/30/2018 Inactive Levaquin 500 mg tablet RxNorm: 290858 1 Tablet(s) PO daily 12/11/2017 Inactive Keflex 500 mg capsule RxNorm: 816781 1 Capsule(s) PO TID 201711/20/2017 Inactive Keflex 500 mg capsule RxNorm: 314148 1 Capsule(s) PO TID 201711/13/2017 Inactive Dilantin Extended 100 mg capsule RxNorm: 535444 Capsule(s) PO UD m3pill/tue3 pill/ wed 4 pill/ thur 2pill/fri 3pill/sat 4pill/sun 3 pill 201712/14/2017 Inactive Dilantin Extended 100 mg capsule RxNorm: 540129 Capsule(s) PO UD -Alternate 300 mg for two days in a row and then 400 mg for one day and repeat cycle 10/04/2017 10/12/2017 Inactive Augmentin 500 mg-125 mg tablet RxNorm: 414915 1 Tablet(s) PO TID 07/15/2017 07/14/2017 Inactive Augmentin 500 mg-125 mg tablet RxNorm: 387315 1 Tablet(s) PO TID 07/15/2017 07/21/2017 Inactive Dilantin Extended 100 mg capsule RxNorm: 658308 1 Capsule(s) PO daily -Alternate 300 mg and 400 mg every other day 06/07/2017 10/03/2017 Inactive Bactrim DS 800 mg-160 mg tablet RxNorm: 168579 1 Tablet(s) PO BID 05/02/2017 05/08/2017 Inactive Dilantin Extended 100 mg capsule RxNorm: 550909 1 Capsule(s) PO daily in the afternoon and 2 Capsules PO HS- Will take an additional pill if she has a lot of jerking 04/27/2017 06/06/2017 Inactive Keflex 500 mg capsule RxNorm: 645441 1 Capsule(s) PO TID 201604/23/2017 Inactive dicyclomine 10 mg capsule RxNorm: 583905 1 Capsule(s) PO BID as needed 03/30/2017 05/28/2017 Inactive Senna with Docusate Sodium 8.6 mg-50 mg tablet RxNorm: 161543 1 Tablet(s) PO BID as needed constipation 03/02/20172017 Inactive Keflex 500 mg capsule RxNorm: 271598 1 Capsule(s) PO TID 201608/20/2016 Inactive Levaquin 500 mg tablet RxNorm: 486527 1 Tablet(s) PO daily 09/201504/22/2016 Inactive ciprofloxacin 500 mg tablet RxNorm: 432021 1 Tablet(s) PO BID 02/10/2016 02/16/2016 Inactive prednisone 10 mg tablet RxNorm: 452024 1 Tablet(s) PO as needed for pain No Start Date Active Prolia 60 mg/mL subcutaneous syringe RxNorm: 150879 1 injection SQ Q6 months No Start Date Active lamotrigine 150 mg tablet RxNorm: 389753 1 Tablet(s) PO QHS No Start Date 12/06/2017 Inactive lamotrigine 100 mg tablet RxNorm: 888438 1 Tablet(s) PO QAM No Start Date 12/06/2017 Inactive Dilantin Extended 100 mg capsule RxNorm: 133418 Capsule(s) PO TAKES FOUR CAPSULES FOR 2 DAYS, THEN THREE CAPSULES FOR 1 DAY, THEN REPEATS No Start Date 04/26/2017 Inactive Humira 20 mg/0.4 mL subcutaneous syringe kit RxNorm: 519661 1 injection SQ every 2 weeks- Prescribed [...] Ord7 DILANTIN 10.5 UG/ML 05/11/2018 Comp Metabolic Kav868 NA 138 mEq/L 05/11/2018 Comp Metabolic Cmn826 K 4.0 mEq/L 05/11/2018 Comp Metabolic Dth444 CL 100 mEq/L 05/11/2018 Comp Metabolic Ffv750 CO2 29.0 mEq/L 05/11/2018 Comp Metabolic Rno732 ANION GAP 13 05/11/2018 Comp Metabolic Eyo271 GLUCOSE 84 mg/dL 05/11/2018 Comp Metabolic Nkf729 Creat 0.8 mg/dL 05/11/2018 Comp Metabolic Pwg472 eGFR 77 ml/min/1.73m2 05/11/2018 Comp Metabolic Sin585 BUN 26 mg/dL 05/11/2018 Comp Metabolic Zjh510 B/C Ratio 33.3 Ratio 05/11/2018 Comp Metabolic Wra150 CALCIUM 9.1 mg/dL 05/11/2018 Comp Metabolic Tnz159 ALK PHOS 97 U/L 05/11/2018 Comp Metabolic Lcu461 AST(SGOT) 14 U/L 05/11/2018 Comp Metabolic Zlt415 ALT(SGPT) 7 U/L 05/11/2018 Comp Metabolic Vta592 BILI T 0.3 mg/dL 05/11/2018 Comp Metabolic Fla002 ALBUMIN 3.6 g/dL 05/11/2018 Comp Metabolic Ymw424 TPRO 6.9 g/dL 05/11/2018 Comp Metabolic Iek616 GLOB 3.3 g/dL 05/11/2018 Comp Metabolic Lmk703 A/G Ratio 1.1 Ratio 05/11/2018 Comp Metabolic Sbg225 Osmo 280 mOsmo 05/11/2018 Dilantin Ord7 DILANTIN 10.7 UG/ML 04/25/2018 Valproic Acid Oci936 VALPROIC <10 ug/ml 04/24/2018 Dilantin Ord7 DILANTIN 10.6 UG/ML 04/11/2018 Culture Urine [id number] URINE CULTURE SEE NOTES 02/20/2018 Culture Urine [id number] Continued Results 02/20/2018 Urine Culture Ucult Complete >100,000 col/ml aerobic growth sent to ref lab 02/17/2018 Dilantin Ord7 DILANTIN 14.4 UG/ML 02/16/2018 Comp Metabolic Sug820 NA 135 mEq/L 02/16/2018 Comp Metabolic Eqj579 K 3.8 mEq/L 02/16/2018 Comp Metabolic Tpn309 CL 99 mEq/L 02/16/2018 Comp Metabolic Sit958 CO2 28.0 mEq/L 02/16/2018 Comp Metabolic Fhy845 ANION GAP 12 02/16/2018 Comp Metabolic Cvb275 GLUCOSE 101 mg/dL 02/16/2018 Comp Metabolic Nxv222 Creat 0.8 mg/dL 02/16/2018 Comp Metabolic Snw699 eGFR 75 ml/min/1.73m2 02/16/2018 Comp Metabolic Ycp487 BUN 20 mg/dL 02/16/2018 Comp Metabolic Jna050 B/C Ratio 25.0 Ratio 02/16/2018 Comp Metabolic Qjn620 CALCIUM 8.9 mg/dL 02/16/2018 Comp Metabolic Gux187 ALK PHOS 95 U/L 02/16/2018 Comp Metabolic Jcr073 AST(SGOT) 13 U/L 02/16/2018 Comp Metabolic Ezj874 ALT(SGPT) 7 U/L 02/16/2018 Comp Metabolic Fuc180 BILI T 0.4 mg/dL 02/16/2018 Comp Metabolic Cgp796 ALBUMIN 3.6 g/dL 02/16/2018 Comp Metabolic Mab767 TPRO 7.2 g/dL 02/16/2018 Comp Metabolic Mgc823 GLOB 3.6 g/dL 02/16/2018 Comp Metabolic Mhn602 A/G Ratio 1.0 Ratio 02/16/2018 Comp Metabolic Wre386 Osmo 273 mOsmo 02/16/2018 Urine Culture Ucult Complete >100,000 col/ml aerobic growth sent to ref lab 11/15/2017 Comp Metabolic Tky856 NA 136 mEq/L 10/13/2017 Comp Metabolic Qte329 K 4.0 mEq/L 10/13/2017 Comp Metabolic Yez869 CL 98 mEq/L 10/13/2017 Comp Metabolic Lob113 CO2 28.0 mEq/L 10/13/2017 Comp Metabolic Dvb397 ANION GAP 14 10/13/2017 Comp Metabolic Zjc560 GLUCOSE 94 mg/dL 10/13/2017 Comp Metabolic Uoi356 Creat 0.7 mg/dL 10/13/2017 Comp Metabolic Vly174 eGFR 82 ml/min/1.73m2 10/13/2017 Comp Metabolic Hqs990 BUN 26 mg/dL 10/13/2017 Comp Metabolic Hjs120 B/C Ratio 35.1 Ratio 10/13/2017 Comp Metabolic Clk017 CALCIUM 9.1 mg/dL 10/13/2017 Comp Metabolic Nxo745 ALK PHOS 98 U/L 10/13/2017 Comp Metabolic Gkh281 AST(SGOT) 15 U/L 10/13/2017 Comp Metabolic Ykf810 ALT(SGPT) 8 U/L 10/13/2017 Comp Metabolic Mjx429 BILI T 0.4 mg/dL 10/13/2017 Comp Metabolic Cyr875 ALBUMIN 3.7 g/dL 10/13/2017 Comp Metabolic Yjn457 TPRO 7.8 g/dL 10/13/2017 Comp Metabolic Drn087 GLOB 4.1 g/dL 10/13/2017 Comp Metabolic Saz205 A/G Ratio 0.9 Ratio 10/13/2017 Comp Metabolic Vqk247 Osmo 276 mOsmo 10/13/2017 Dilantin Ord7 DILANTIN 21.4 Result Verified By Repeat Analysis UG/ML 10/13/2017 Dilantin Ord7 DILANTIN 24.1 Result Verified By Repeat Analysis UG/ML 10/03/2017 Dilantin Ord7 DILANTIN 18.1 UG/ML 06/30/2017 Dilantin Ord7 DILANTIN 22.7 UG/ML 06/16/2017 Dilantin Ord7 DILANTIN 26.1 UG/ML 06/07/2017 Dilantin Ord7 DILANTIN 24.1 UG/ML 05/24/2017 Dilantin Ord7 DILANTIN 19.6 UG/ML 05/11/2017 Culture Urine [id number] URINE CULTURE SEE NOTES 05/06/2017 Culture Urine [id number] Continued Results 05/06/2017 Urine Culture Ucult Complete >100,000 col/ml aerobic growth sent to ref lab 05/03/2017 Dilantin Ord7 DILANTIN 12.6 UG/ML 04/27/2017 Calcium Ord79 CALCIUM 9.3 mg/dL 04/19/2017 Dilantin Ord7 DILANTIN 21.6 UG/ML 04/19/2017 Dilantin Ord7 DILANTIN 10.3 UG/ML 04/13/2017 Dilantin Ord7 DILANTIN 21.9 UG/ML 04/07/2017 Comp Metabolic Zxn412 NA 137 mEq/L 03/30/2017 Comp Metabolic Zdr142 K 3.7 mEq/L 03/30/2017 Comp Metabolic Hps473 CL 98 mEq/L 03/30/2017 Comp Metabolic Xlg678 CO2 29.0 mEq/L 03/30/2017 Comp Metabolic Jdf542 ANION GAP 14 03/30/2017 Comp Metabolic Vio364 GLUCOSE 100 mg/dL 03/30/2017 Comp Metabolic Oif012 Creat 0.9 mg/dL 03/30/2017 Comp Metabolic Rut181 eGFR 88 ml/min/1.73m2 03/30/2017 Comp Metabolic Xmj221 BUN 22 mg/dL 03/30/2017 Comp Metabolic Ntf504 B/C Ratio 24.4 Ratio 03/30/2017 Comp Metabolic Xnr129 CALCIUM 9.4 mg/dL 03/30/2017 Comp Metabolic Uqv727 ALK PHOS 113 U/L 03/30/2017 Comp Metabolic Mtp936 AST(SGOT) 16 U/L 03/30/2017 Comp Metabolic Fox847 ALT(SGPT) 7 U/L 03/30/2017 Comp Metabolic Mai962 BILI T 0.3 mg/dL 03/30/2017 Comp Metabolic Ceu045 ALBUMIN 3.9 g/dL 03/30/2017 Comp Metabolic Tvd149 TPRO 8.0 g/dL 03/30/2017 Comp Metabolic Pga557 GLOB 4.1 g/dL 03/30/2017 Comp Metabolic Yny444 A/G Ratio 0.9 Ratio 03/30/2017 Comp Metabolic Aeg410 Osmo 277 mOsmo 03/30/2017 Lipid Ord30 CHOL 214 mg/dL 03/30/2017 Lipid Ord30 HDL 61.0 mg/dl 03/30/2017 Lipid Ord30 TRIG 130 mg/dL 03/30/2017 Lipid Ord30 LDL 127 mg/dL 03/30/2017 Lipid Ord30 C/HDL 3.5 Ratio 03/30/2017 Dilantin Ord7 DILANTIN 32.5 UG/ML 03/30/2017 Folate Ord36 Folate 16.46 ng/mL 03/30/2017 Tsh Ord6 hTSH II 0.95 uIU/mL 03/30/2017 B12 Btt597 B12 592.00 pg/ml 03/30/2017 Cbc With Differential [...] 30.9 pg 03/30/2017 Cbc With Differential Ord2 [place]% 23.9 % 03/30/2017 Cbc With Differential Ord2 [...] 0.44 K/ul 03/30/2017 Cbc With Differential Ord2 [place] ABS# 0.3 K/ul 03/30/2017 Cbc With Differential [...] 30.3 pg 08/11/2016 Cbc With Differential Ord2 [place]% 31.7 % 08/11/2016 Cbc With Differential Ord2 [...] 0.59 K/ul 08/11/2016 Cbc With Differential Ord2 [place] ABS# 0.6 K/ul 08/11/2016 Cbc With Differential Ord2 Eos ABS# 0.0 K/ul 08/11/2016 Cbc With Differential Ord2 Baso ABS# 0.0 K/ul 08/11/2016 Dilantin Ord7 DILANTIN 17.2 UG/ML 08/11/2016 Tsh Ord6 hTSH II 0.82 uIU/mL 08/11/2016 Comp Metabolic Wrj803 NA 131 mEq/L 08/11/2016 Comp Metabolic Xyg358 K 4.1 mEq/L 08/11/2016 Comp Metabolic Cgf899 CL 93 mEq/L 08/11/2016 Comp Metabolic Nra527 CO2 29.0 mEq/L 08/11/2016 Comp Metabolic Jpb641 ANION GAP 13 08/11/2016 Comp Metabolic Vaz490 GLUCOSE 120 mg/dL 08/11/2016 Comp Metabolic Olt013 Creat 0.8 mg/dL 08/11/2016 Comp Metabolic Rhi560 eGFR 101 ml/min/1.73m2 08/11/2016 Comp Metabolic Apk842 BUN 18 mg/dL 08/11/2016 Comp Metabolic Pkt251 B/C Ratio 22.5 Ratio 08/11/2016 Comp Metabolic Vfr935 CALCIUM 9.5 mg/dL 08/11/2016 Comp Metabolic Mjc688 ALK PHOS 104 U/L 08/11/2016 Comp Metabolic Fur789 AST(SGOT) 16 U/L 08/11/2016 Comp Metabolic Bde241 ALT(SGPT) 8 U/L 08/11/2016 Comp Metabolic Eiz672 BILI T 0.4 mg/dL 08/11/2016 Comp Metabolic Wqr536 ALBUMIN 3.8 g/dL 08/11/2016 Comp Metabolic Yka996 TPRO 8.4 g/dL 08/11/2016 Comp Metabolic Grk202 GLOB 4.6 g/dL 08/11/2016 Comp Metabolic Dcm959 A/G Ratio 0.8 Ratio 08/11/2016 Comp Metabolic Bhw499 Osmo 266 mOsmo 08/11/2016 Culture Urine [id number] URINE CULTURE SEE NOTES 04/19/2016 Culture Urine [id number] Continued Results 04/19/2016 Urine Culture Ucult Complete >100,000 col/ml aerobic growth sent to ref lab 04/17/2016 Culture Urine [id number] URINE CULTURE SEE NOTES 02/13/2016 Culture Urine [id number] Continued Results 02/13/2016 Urine Culture Ucult Complete [...] Codes Date URINALYSIS NONAUTO W/O SCOPE CPT-4: 10622 06/12/2018 URINALYSIS NONAUTO W/O SCOPE CPT-4: 29338 02/16/2018 URINALYSIS NONAUTO W/O SCOPE CPT-4: 47248 11/14/2017 PPPS, SUBSEQ VISIT CPT -4: G0439 06/07/2017 URINALYSIS NONAUTO W/O SCOPE CPT-4: 69080 05/02/2017 URINALYSIS NONAUTO W/O SCOPE CPT-4: 89071 04/26/2017 PPPS, SUBSEQ VISIT CPT -4: G0439 06/01/2016 URINALYSIS NONAUTO W/O SCOPE CPT-4: 82465 04/16/2016 URINALYSIS NONAUTO W/O SCOPE CPT-4: 42267 02/10/2016 Vital Signs Date Vital 05/22/2018 Blood Pressure 1: 112/68 Code : 8480-6 BMI: 18.6 Code : 85453-9 Heart Rate 1 : 128 bpm Height: 5'5" SpO2: 98% Weight: 112 lbs 04/04/2018 Blood Pressure 1: 94/52 Code : 8480-6 Heart Rate 1: 120 bpm Height: 5'5" Respiratory Rate: 18 bpm SpO2: 98% Weight: 02/16/2018 Blood Pressure 1: 120/70 Code : 8480-6 BMI: 19.1 Code : 41372-0 Heart Rate 1 : 115 bpm Height: 5'5" SpO2: 97% Weight: 115 lbs 12/30/2017 Blood Pressure 1: 100/68 Code : 8480-6 BMI: 18.3 Code : 06100-9 Heart Rate 1 : 120 bpm Height: 5'5" SpO2: 94% Weight: 110 lbs 10/13/2017 Blood Pressure 1: 136/78 Code : 8480-6 BMI: 18.1 Code : 38297-2 Heart Rate 1 : 126 bpm Height: 5'5" SpO2: 96% Weight: 109 lbs 07/12/2017 Blood Pressure 1: 100/56 Code : 8480-6 BMI: 18.1 Code : 55461-5 Heart Rate 1 : 123 bpm Height: 5'5" SpO2: 99% Weight: 109 lbs 06/07/2017 Blood Pressure 1: 98/68 Code : 8480-6 BMI: 18.1 Code : 53015-2 Heart Rate 1 : 120 bpm Height: 5'5" SpO2: 99% Waist Measure (cm): 80 cm Weight: 109 lbs 05/24/2017 Blood Pressure 1: 104/62 Code : 8480-6 BMI: 18.1 Code : 72057-2 Heart Rate 1 : 121 bpm Height: 5'5" SpO2: 97% Weight: 109 lbs 04/27/2017 Blood Pressure 1: 132/84 Code : 8480-6 BMI: 17.8 Code : 27071-3 Heart Rate 1 : 129 bpm Height: 5'5" SpO2: 99% Weight: 107 lbs 04/13/2017 Blood Pressure 1: 100/66 Code : 8480-6 Heart Rate 1: 120 bpm Height: 5'5" SpO2: 99% Weight: 03/30/2017 Blood Pressure 1: 112/66 Code : 8480-6 BMI: 17.8 Code : 92680-4 Heart Rate 1 : 112 bpm Height: 5'5" SpO2: 98% Weight: 107 lbs 03/02/2017 Blood Pressure 1: 128/78 Code : 8480-6 BMI: 18.1 Code : 78879-4 Heart Rate 1 : 86 bpm Height: 5'5" SpO2: 95% Weight: 109 lbs 08/30/2016 Blood Pressure 1: 102/60 Code : 8480-6 BMI: 18.1 Code : 53473-6 Heart Rate 1 : 135 bpm Height: 5'5" SpO2: 98% Weight: 109 lbs 08/11/2016 Blood Pressure 1: 100/66 Code : 8480-6 BMI: 18.6 Code : 38497-4 Heart Rate 1 : 86 bpm Height: 5'5" SpO2: 94% Weight: 112 lbs 06/01/2016 Blood Pressure 1: 126/80 Code : 8480-6 BMI: 19.0 Code : 82353-0 Heart Rate 1 : 100 bpm Height: 5'5" SpO2: 98% Waist Measure (cm): 64 cm Weight: 114 lbs 04/16/2016 Blood Pressure 1: 124/80 Code : 8480-6 Heart Rate 1: 110 bpm SpO2: 97% 02/10/2016 Blood Pressure 1: 102/64 Code : 8480-6 BMI: 18.3 Code : 56936-8 Heart Rate 1 : 114 bpm Height: [...] Present Encounters Encounter Performer Location Codes Date ([id number]) 83640 EST. PATIENT, LEVEL IV Diagnosis: Unsteadiness on feet[ICD10: R26.81] Diagnosis: Other abnormalities of gait and mobility[ICD10: R26.89] Diagnosis: Mixed incontinence[ICD10: N39.46] Diagnosis: Other epilepsy, not intractable, without status epilepticus[ICD10: G40.802] Magali Zepeda MD, [facility] CPT-4: 82296 2017 [id number]) 85808 EST. PATIENT, LEVEL III Diagnosis: Right upper quadrant abdominal rigidity[ICD10: R19.31] Diagnosis: Functional diarrhea[ICD10: K59.1] Diagnosis: Calculus of gallbladder without cholecystitis without obstruction[ ICD10: K80.20] Magali Zepeda MD, [facility] CPT-4: 31903 04/04/2018 [id number]) 21030 EST. PATIENT, LEVEL IV Diagnosis: Other epilepsy, not intractable, without status epilepticus[ICD10: G40.802] Diagnosis: Slow transit constipation[ICD10: K59.01] Diagnosis: Dysuria[ICD10: R30.0] Diagnosis: Age-related osteoporosis without current pathological fracture[ICD10 : M81.0] Magali Zepeda MD, [facility] CPT-4: 56198 2017 ([id number]) 99881 EST. PATIENT, LEVEL III Diagnosis: Slow transit constipation[ICD10: K59.01] Mishel Steve Zepeda MD, [facility] CPT-4: 79333 12/30/2017 ([id number]) 76212 EST. PATIENT, LEVEL IV Diagnosis: Other epilepsy, not intractable, without status epilepticus[ICD10: G40.802] Diagnosis: Slow transit constipation[ICD10: K59.01] Magali Zepeda MD, [facility] CPT-4: 07720 10/13/2017 ([id number]) 60213 EST. PATIENT, LEVEL III Diagnosis: Other epilepsy, not intractable, without status epilepticus[ICD10: G40.802] Diagnosis: Dysuria[ICD10: R30.0] Diagnosis: Mixed incontinence[ICD10: N39.46] Magali Zepeda MD, [facility] CPT-4: 70719 07/12/2017 ([id number]) 26709 EST. 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 PATIENT, LEVEL III Diagnosis: Other epilepsy, not intractable, without status epilepticus[ICD10: G40.802] Magali Zepeda MD, [facility] CPT-4: 84250 2016 ([id number]) 61236 EST. 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 PATIENT, LEVEL IV Diagnosis: Calculus of gallbladder without cholecystitis without obstruction[ ICD10: K80.20] Diagnosis: Benign paroxysmal vertigo, bilateral[ICD10: H81.13] Diagnosis: Slow transit constipation[ICD10: K59.01] Magali Zepeda MD, [facility] CPT-4: 44223 03/02/2017 ([id number]) 86795 EST. 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 PATIENT, LEVEL IV Diagnosis: Other epilepsy, not intractable, without status epilepticus[ICD10: G40.802] Diagnosis: Low back pain[ICD10: M54.5] Diagnosis: Pressure ulcer of sacral region, stage 1[ICD10: L89.151] Windy Zepeda MD, [facility] CPT-4: 01272 08/11/2016 ([id number]) 41355 EST. PATIENT, LEVEL III Diagnosis: Urinary tract infection, site not specified[ICD10: N39.0] Diagnosis: Slow transit constipation[ICD10: K59.01] Mishel Zepeda MD, [facility] CPT-4: 44660 04/16/2016 ([id number]) OFFICE VISIT, NEW - LEVEL 4 Diagnosis: Other abnormalities of gait and mobility[ICD10: R26.89] Diagnosis: Dysuria[ICD10: R30.0] Diagnosis: Rheumatoid arthritis without rheumatoid factor, multiple sites[ICD10 : M06.09] [facility] CPT-4: 80416 Plan of Care Planned Activity Notes Codes [...] the house. 05/22/2018 Appointment: [phone] [facility] [place] ([place] min) Moderate 05/22/2018 Patient Education: Patient Medication Summary Completed 05/22/2018 Appointment: [phone] [facility] [place] [place] (15 min) Moderate 05/15/2018 Visit Plan: [...] gallbladder. 04/04/2018 Appointment: [phone] [facility] [place] [place] ([place] min) Moderate 04/04/2018 Patient Education: Patient Medication Summary Completed 04/04/2018 Patient Education: Diarrhea Completed 04/04/2018 Visit Plan: Epilepsy - chronic - continue with current regimen - check labs. Osteoporosis - pt is currently getting Prolia in [place], this is a big burden for her - They have asked for her to be set up for prolia for at the end of may at [address]- to call with specific date. Dysuria - UA - +leukocytes - start on keflex - rx sent to pharmacy. Chronic constipation - monitor symptoms. Continue with supportive care. 02/16/2018 Appointment: Magali Zepeda WPtel: [phone] [facility] (15 min) Moderate 02/16/2018 Patient Education: Patient [...] this regimen. 12/30/2017 Appointment: Mishel Wilson WPtel: [address] [phone] [place] (30 min) Complex 12/30/2017 Patient [...] regimen. 10/13/2017 Appointment: Magali Zepeda WPtel: [phone] [facility] [place] (15 min) Moderate 10/13/2017 Patient Education: Patient Medication Summary Completed 10/13/2017 Appointment: Magali Zepeda WPtel: [phone] [facility] [place] (15 min) Moderate 10/06/2017 Appointment: Lab [...] on accident 07/12/2017 Appointment: [facility] [place] [place] (15 min) Moderate 07/12/2017 Patient Education: Patient Medication Summary Completed 07/12/2017 Appointment: [facility] [address] [facility] [place] [place] (15 min) Moderate 07/05/2017 Visit Plan: [...] care surrogate. 06/07/2017 Appointment: Windy Greco [facility]el[facility] [facility] - Annual Wellness Visit 06/07/2017 Patient [...] per week. 05/24/2017 Appointment: Magali Zepeda WPtel: [facility] (15 min) Moderate 05/24/2017 Patient Education: Patient Medication Summary Completed 05/24/2017 Appointment: Magali Zepeda WPtel: [phone] [facility] (15 min) Moderate 05/11/2017 Visit Plan: UTI [...] a week) 04/27/2017 Appointment: Magali Zepeda WPtel: [facility] (15 min) Moderate 04/27/2017 Patient Education: Patient [...] for therapy, monitor symptoms. 04/13/2017 Appointment: Magali [facility]epedal: [address] [facility] [place] [place] (15 min) Moderate 04/13/2017 Patient Education: [...] strategy. 03/30/2017 Appointment: Magali Zepeda WPtel: [phone] [facility] [place] (15 min) Moderate 03/30/2017 Patient Education: [...] for constipation. 03/02/2017 Appointment: [facility]eda [phone] [facility] [place] [place] (30 min) Complex 03/02/2017 Patient Education: Patient Medication Summary Completed 03/02/2017 Visit Plan: RA and Gait abnormality -continue with current treatments - supportive care Suspect some of her movement abnormalities may be due to her lamotrigine. 08/30/2016 Appointment: Magali Zepeda WPtel: [phone] [facility] (30 min) Complex 08/30/2016 Patient Education: Patient [...] discharge. 08/11/2016 Appointment: Windy Greco WPtel: [phone] [facility] ([facility] Complex 08/11/2016 Patient Education: Patient [...] surrogate. 06/01/2016 Appointment: Windy Greco WPtel: [phone] [facility] [facility] - Annual Wellness Visit 06/01/2016 Patient [...] this regimen. 04/16/2016 Appointment: Mishel Wilson WPtel: [address] [facility] (15 min) Moderate 04/16/2016 Patient Education: Patient Medication Summary Completed 04/16/2016 Visit Plan: RA and Gait abnormality - recommended pt to have referral to physical therapy at [facility]. Suspect some of her movement abnormalities may be due to her lamotrigine. 02/10/2016 Appointment: Magali Zepeda WPtel: [id number] New Patient 02/10/2016 Patient Education: Patient Medication Summary Completed 02/10/2016 Instructions Comment RECOMMEND PROBIOTIC-ANY BRAND IS FINE: DAYAN LANG [facility], [place]IGN sign release for labs from DR [...] this regimen. . RA and Gait abnormality - recommended pt to have referral to physical therapy at [facility]. Suspect some of her movement [...] in symptoms, worsening redness, warmth, discharge. . RA and Gait abnormality -continue with [...] health referral for therapy, monitor symptoms. . Epilepsy - chronic - symptoms stable [...] - pt is currently getting Prolia in [place], this is a big burden for her - They have asked for her to be set up for prolia for at the end of may at [address]- to call with specific date. Dysuria - UA - +leukocytes - start on keflex - rx sent to pharmacy. Chronic constipation - monitor symptoms. Continue with supportive care.
--- OUTSIDE RECORDS SUMMARY | 2018-07-17 11:03 | XMS REPORT | CCD ---
Author Author Magali Zepeda Organization Magali Zepeda MD, [facility] Address [address] [place] [address] Phone Care Team Providers Care Assistant Professor Of Drama Name Role Phone PP Unavailable CCM Unavailable Summary Purpose Interface Exchange Insurance Providers Payer name Policy type / Coverage type Covered republican ID Effective Begin Date Effective End Date WPS Medicare Part B Medicare Part B [id number] Unknown [employer] Medicare Part B [id number] Unknown Family history Sister Diagnosis Age At [...] Unknown Retired 02/10/[address]: 366320344 Never smoker 02/10/[address]: 601781945 Never drinks alcohol 02/10/2016 Has the patient ever used illegal drugs? Unknown Has never used illegal drugs 02/10/2016 Allergies, Adverse Reactions, Alerts Substance Reaction Codes Entered Date Inactivated Date Status * NO KNOWN DRUG ALLERGIES Unknown 02/10/2016 No Inactive Date Active Past Medical History Illness Codes Condition Status Onset Date Resolved Date Mixed incontinence ICD -9: 788.33 ICD-10: N39.46 [...] ICD-9: 788.1 ICD-10: R30.0 Active 02/09/2016 Unknown Slow transit constipation ICD-9: 564.01 ICD-10: [...] Problems Condition Codes Effective Dates Condition Status Mixed incontinence ICD -9: 788.33 ICD-10: N39.46 [...] Dysuria ICD-9: 788.1 ICD-10: R30.0 02/09/2016 Active Slow transit constipation ICD-9: 564.01 ICD-10: [...] Fill Instructions Keflex 500 mg capsule RxNorm: 351297 1 Capsule(s) PO QID 201706/18/2018 Active please call patient to let her know she needs to [facility] rx for antibiotic Dilantin Extended 100 mg capsule RxNorm: 904435 Capsule(s) TAKE 1 CAP TID ON // TUE AND 1 CAPSULE QID ON ///TUE. if having symptoms of seizure activity, take an extra pill 05/29/2018 No Stop Date Active Dilantin Extended 100 mg capsule RxNorm: 867754 Capsule(s) TAKE 1 CAP TID x2 DAYS , THEN 1 CAPSULE qid x2 DAYs, THEN REPEAT CYCLE. if having symptoms of seizure activity, take an extra pill 05/22/2018 Inactive lamotrigine 150 mg tablet RxNorm: 040585 TAKE 1 TABLET BY MOUTH AT BEDTIME 04/17/2018 No Stop Date Active Dilantin Extended 100 mg capsule RxNorm: 363905 TAKE 1 CAPSULE BY MOUTH THREE TIMES DAILY FOR 3 DAYS, THEN 1 CAPSULE FOUR TIMES DAILY FOR 1 DAY, THEN REPEAT CYCLE. 04/12/2018 05/21/2018 Inactive lamotrigine 100 mg tablet RxNorm: 170968 TAKE 1 TABLET BY MOUTH IN THE MORNING 03/31/2018 No Stop Date Active dicyclomine 10 mg capsule RxNorm: 784396 TAKE ONE CAPSULE BY MOUTH TWICE DAILY NEEDED 02/20/2018 No Stop Date Active Penlac 8 % topical solution RxNorm: 093705 1 Application TOP daily clean off every 7 days and restart application process 02/16/2018 09/13/2018 Active ok to dispense generic Keflex 500 mg capsule RxNorm: 415399 1 Capsule(s) PO QID 201702/22/2018 Inactive please call patient to let her know she needs to [facility] rx for antibiotic Dilantin Extended 100 mg capsule RxNorm: 563164 Capsule(s) PO UD 1 cap TID x 3 days then 1 cap qid x 1 day then repeat cycle 12/15/2017 04/11/2018 Inactive give 1 month supply lamotrigine 150 mg tablet RxNorm: 871756 1 Tablet(s) PO QHS 04/05/2018 Inactive lamotrigine 100 mg tablet RxNorm: 071618 1 Tablet(s) PO QAM 03/30/2018 Inactive Levaquin 500 mg tablet RxNorm: 075874 1 Tablet(s) PO daily 12/11/2017 Inactive Keflex 500 mg capsule RxNorm: 729026 1 Capsule(s) PO TID 201711/20/2017 Inactive Keflex 500 mg capsule RxNorm: 969781 1 Capsule(s) PO TID 201711/13/2017 Inactive Dilantin Extended 100 mg capsule RxNorm: 478722 Capsule(s) PO UD m3pill/tue3 pill/ wed 4 pill/ thur 2pill/fri 3pill/sat 4pill/sun 3 pill 201712/14/2017 Inactive Dilantin Extended 100 mg capsule RxNorm: 600914 Capsule(s) PO UD -Alternate 300 mg for two days in a row and then 400 mg for one day and repeat cycle 10/04/2017 10/12/2017 Inactive Augmentin 500 mg-125 mg tablet RxNorm: 709187 1 Tablet(s) PO TID 07/15/2017 07/14/2017 Inactive Augmentin 500 mg-125 mg tablet RxNorm: 065931 1 Tablet(s) PO TID 07/15/2017 07/21/2017 Inactive Dilantin Extended 100 mg capsule RxNorm: 867961 1 Capsule(s) PO daily -Alternate 300 mg and 400 mg every other day 06/07/2017 10/03/2017 Inactive Bactrim DS 800 mg-160 mg tablet RxNorm: 163271 1 Tablet(s) PO BID 05/02/2017 05/08/2017 Inactive Dilantin Extended 100 mg capsule RxNorm: 851399 1 Capsule(s) PO daily in the afternoon and 2 Capsules PO HS- Will take an additional pill if she has a lot of jerking 04/27/2017 06/06/2017 Inactive Keflex 500 mg capsule RxNorm: 403177 1 Capsule(s) PO TID 201604/23/2017 Inactive dicyclomine 10 mg capsule RxNorm: 869180 1 Capsule(s) PO BID as needed 03/30/2017 05/28/2017 Inactive Senna with Docusate Sodium 8.6 mg-50 mg tablet RxNorm: 944647 1 Tablet(s) PO BID as needed constipation 03/02/20172017 Inactive Keflex 500 mg capsule RxNorm: 544073 1 Capsule(s) PO TID 201608/20/2016 Inactive Levaquin 500 mg tablet RxNorm: 739377 1 Tablet(s) PO daily 09/201504/22/2016 Inactive ciprofloxacin 500 mg tablet RxNorm: 146915 1 Tablet(s) PO BID 02/10/2016 02/16/2016 Inactive prednisone 10 mg tablet RxNorm: 520314 1 Tablet(s) PO as needed for pain No Start Date Active Prolia 60 mg/mL subcutaneous syringe RxNorm: 890740 1 injection SQ Q6 months No Start Date Active lamotrigine 150 mg tablet RxNorm: 661776 1 Tablet(s) PO QHS No Start Date 12/06/2017 Inactive lamotrigine 100 mg tablet RxNorm: 353974 1 Tablet(s) PO QAM No Start Date 12/06/2017 Inactive Dilantin Extended 100 mg capsule RxNorm: 046298 Capsule(s) PO TAKES FOUR CAPSULES FOR 2 DAYS, THEN THREE CAPSULES FOR 1 DAY, THEN REPEATS No Start Date 04/26/2017 Inactive Humira 20 mg/0.4 mL subcutaneous syringe kit RxNorm: 032941 1 injection SQ every 2 weeks- Prescribed by Dr. Baker No Start Date 05/23/2017 Inactive Medication Administered No Medication Administered data Immunizations No Immunization data Assessments Condition Codes Effective Dates Unsteadiness on feet ICD-10: R26.81 ICD-9: 781.2 [...] Item Code Result Date Dilantin Ord7 DILANTIN 10.5 UG/ML 05/11/2018 Comp Metabolic Ypl774 NA 138 mEq/L 05/11/2018 Comp Metabolic Awv246 K 4.0 mEq/L 05/11/2018 Comp Metabolic Gnl594 CL 100 mEq/L 05/11/2018 Comp Metabolic Set009 CO2 29.0 mEq/L 05/11/2018 Comp Metabolic Mmr092 ANION GAP 13 05/11/2018 Comp Metabolic Dot127 GLUCOSE 84 mg/dL 05/11/2018 Comp Metabolic Gsv366 Creat 0.8 mg/dL 05/11/2018 Comp Metabolic Zyl445 eGFR 77 ml/min/1.73m2 05/11/2018 Comp Metabolic Zkh942 BUN 26 mg/dL 05/11/2018 Comp Metabolic Ata660 B/C Ratio 33.3 Ratio 05/11/2018 Comp Metabolic Jpf261 CALCIUM 9.1 mg/dL 05/11/2018 Comp Metabolic Ynd285 ALK PHOS 97 U/L 05/11/2018 Comp Metabolic Kvh178 AST(SGOT) 14 U/L 05/11/2018 Comp Metabolic Zgu266 ALT(SGPT) 7 U/L 05/11/2018 Comp Metabolic Bfr628 BILI T 0.3 mg/dL 05/11/2018 Comp Metabolic Mjj607 ALBUMIN 3.6 g/dL 05/11/2018 Comp Metabolic Nho645 TPRO 6.9 g/dL 05/11/2018 Comp Metabolic Zad367 GLOB 3.3 g/dL 05/11/2018 Comp Metabolic Mig282 A/G Ratio 1.1 Ratio 05/11/2018 Comp Metabolic Zle323 Osmo 280 mOsmo 05/11/2018 Dilantin Ord7 DILANTIN 10.7 UG/ML 04/25/2018 Valproic Acid Dij661 VALPROIC <10 ug/ml 04/24/2018 Dilantin Ord7 DILANTIN 10.6 UG/ML 04/11/2018 Culture Urine [id number] URINE CULTURE SEE NOTES 02/20/2018 Culture Urine [id number] Continued Results 02/20/2018 Urine Culture Ucult Complete >100,000 col/ml aerobic growth sent to ref lab 02/17/2018 Dilantin Ord7 DILANTIN 14.4 UG/ML 02/16/2018 Comp Metabolic Slb381 NA 135 mEq/L 02/16/2018 Comp Metabolic Ozx689 K 3.8 mEq/L 02/16/2018 Comp Metabolic Ijh202 CL 99 mEq/L 02/16/2018 Comp Metabolic Fwh011 CO2 28.0 mEq/L 02/16/2018 Comp Metabolic Twh987 ANION GAP 12 02/16/2018 Comp Metabolic Gve949 GLUCOSE 101 mg/dL 02/16/2018 Comp Metabolic Vmt567 Creat 0.8 mg/dL 02/16/2018 Comp Metabolic Qin689 eGFR 75 ml/min/1.73m2 02/16/2018 Comp Metabolic Gke131 BUN 20 mg/dL 02/16/2018 Comp Metabolic Akp191 B/C Ratio 25.0 Ratio 02/16/2018 Comp Metabolic Atn850 CALCIUM 8.9 mg/dL 02/16/2018 Comp Metabolic Gtl769 ALK PHOS 95 U/L 02/16/2018 Comp Metabolic Ehr335 AST(SGOT) 13 U/L 02/16/2018 Comp Metabolic Aoc188 ALT(SGPT) 7 U/L 02/16/2018 Comp Metabolic Bfx327 BILI T 0.4 mg/dL 02/16/2018 Comp Metabolic Rmn349 ALBUMIN 3.6 g/dL 02/16/2018 Comp Metabolic Qes946 TPRO 7.2 g/dL 02/16/2018 Comp Metabolic Lqj789 GLOB 3.6 g/dL 02/16/2018 Comp Metabolic Ivx597 A/G Ratio 1.0 Ratio 02/16/2018 Comp Metabolic Wop542 Osmo 273 mOsmo 02/16/2018 Urine Culture Ucult Complete >100,000 col/ml aerobic growth sent to ref lab 11/15/2017 Comp Metabolic Wqj033 NA 136 mEq/L 10/13/2017 Comp Metabolic Pkh939 K 4.0 mEq/L 10/13/2017 Comp Metabolic Ppv645 CL 98 mEq/L 10/13/2017 Comp Metabolic Eka393 CO2 28.0 mEq/L 10/13/2017 Comp Metabolic Ymi256 ANION GAP 14 10/13/2017 Comp Metabolic Nsb909 GLUCOSE 94 mg/dL 10/13/2017 Comp Metabolic Xai594 Creat 0.7 mg/dL 10/13/2017 Comp Metabolic Bqg643 eGFR 82 ml/min/1.73m2 10/13/2017 Comp Metabolic Azf764 BUN 26 mg/dL 10/13/2017 Comp Metabolic Aap888 B/C Ratio 35.1 Ratio 10/13/2017 Comp Metabolic Pjm844 CALCIUM 9.1 mg/dL 10/13/2017 Comp Metabolic Xxx943 ALK PHOS 98 U/L 10/13/2017 Comp Metabolic Lwf139 AST(SGOT) 15 U/L 10/13/2017 Comp Metabolic Sew746 ALT(SGPT) 8 U/L 10/13/2017 Comp Metabolic Tzz330 BILI T 0.4 mg/dL 10/13/2017 Comp Metabolic Uth021 ALBUMIN 3.7 g/dL 10/13/2017 Comp Metabolic Vra034 TPRO 7.8 g/dL 10/13/2017 Comp Metabolic Tvm624 GLOB 4.1 g/dL 10/13/2017 Comp Metabolic Htw693 A/G Ratio 0.9 Ratio 10/13/2017 Comp Metabolic Zio575 Osmo 276 mOsmo 10/13/2017 Dilantin Ord7 DILANTIN 21.4 Result Verified By Repeat Analysis UG/ML 10/13/2017 Dilantin Ord7 DILANTIN 24.1 Result Verified By Repeat Analysis UG/ML 10/03/2017 Dilantin Ord7 DILANTIN 18.1 UG/ML 06/30/2017 Dilantin Ord7 DILANTIN 22.7 UG/ML 06/16/2017 Dilantin Ord7 DILANTIN 26.1 UG/ML 06/07/2017 Dilantin Ord7 DILANTIN 24.1 UG/ML 05/24/2017 Dilantin Ord7 DILANTIN 19.6 UG/ML 05/11/2017 Culture Urine [id number] URINE CULTURE SEE NOTES 05/06/2017 Culture Urine [id number] Continued Results 05/06/2017 Urine Culture Ucult Complete >100,000 col/ml aerobic growth sent to ref lab 05/03/2017 Dilantin Ord7 DILANTIN 12.6 UG/ML 04/27/2017 Calcium Ord79 CALCIUM 9.3 mg/dL 04/19/2017 Dilantin Ord7 DILANTIN 21.6 UG/ML 04/19/2017 Dilantin Ord7 DILANTIN 10.3 UG/ML 04/13/2017 Dilantin Ord7 DILANTIN 21.9 UG/ML 04/07/2017 Comp Metabolic Rlu079 NA 137 mEq/L 03/30/2017 Comp Metabolic Wfa962 K 3.7 mEq/L 03/30/2017 Comp Metabolic Keb354 CL 98 mEq/L 03/30/2017 Comp Metabolic Hii068 CO2 29.0 mEq/L 03/30/2017 Comp Metabolic Llt851 ANION GAP 14 03/30/2017 Comp Metabolic Gyw042 GLUCOSE 100 mg/dL 03/30/2017 Comp Metabolic Lyy826 Creat 0.9 mg/dL 03/30/2017 Comp Metabolic Oou878 eGFR 88 ml/min/1.73m2 03/30/2017 Comp Metabolic Cgm317 BUN 22 mg/dL 03/30/2017 Comp Metabolic Kfl628 B/C Ratio 24.4 Ratio 03/30/2017 Comp Metabolic Jrb155 CALCIUM 9.4 mg/dL 03/30/2017 Comp Metabolic Qlz577 ALK PHOS 113 U/L 03/30/2017 Comp Metabolic Wrr805 AST(SGOT) 16 U/L 03/30/2017 Comp Metabolic Oyp260 ALT(SGPT) 7 U/L 03/30/2017 Comp Metabolic Jga998 BILI T 0.3 mg/dL 03/30/2017 Comp Metabolic Pqu070 ALBUMIN 3.9 g/dL 03/30/2017 Comp Metabolic Tji478 TPRO 8.0 g/dL 03/30/2017 Comp Metabolic Cfp804 GLOB 4.1 g/dL 03/30/2017 Comp Metabolic Zvv880 A/G Ratio 0.9 Ratio 03/30/2017 Comp Metabolic Isn925 Osmo 277 mOsmo 03/30/2017 Lipid Ord30 CHOL 214 mg/dL 03/30/2017 Lipid Ord30 HDL 61.0 mg/dl 03/30/2017 Lipid Ord30 TRIG 130 mg/dL 03/30/2017 Lipid Ord30 LDL 127 mg/dL 03/30/2017 Lipid Ord30 C/HDL 3.5 Ratio 03/30/2017 Dilantin Ord7 DILANTIN 32.5 UG/ML 03/30/2017 Folate Ord36 Folate 16.46 ng/mL 03/30/2017 Tsh Ord6 hTSH II 0.95 uIU/mL 03/30/2017 B12 Bma385 B12 592.00 pg/ml 03/30/2017 Cbc With Differential [...] 30.9 pg 03/30/2017 Cbc With Differential Ord2 [place]% 23.9 % 03/30/2017 Cbc With Differential Ord2 [...] 0.44 K/ul 03/30/2017 Cbc With Differential Ord2 [place] ABS# 0.3 K/ul 03/30/2017 Cbc With Differential [...] 30.3 pg 08/11/2016 Cbc With Differential Ord2 [place]% 31.7 % 08/11/2016 Cbc With Differential Ord2 [...] 0.59 K/ul 08/11/2016 Cbc With Differential Ord2 [place] ABS# 0.6 K/ul 08/11/2016 Cbc With Differential Ord2 Eos ABS# 0.0 K/ul 08/11/2016 Cbc With Differential Ord2 Baso ABS# 0.0 K/ul 08/11/2016 Dilantin Ord7 DILANTIN 17.2 UG/ML 08/11/2016 Tsh Ord6 hTSH II 0.82 uIU/mL 08/11/2016 Comp Metabolic Tqq920 NA 131 mEq/L 08/11/2016 Comp Metabolic Nkq222 K 4.1 mEq/L 08/11/2016 Comp Metabolic Nxn970 CL 93 mEq/L 08/11/2016 Comp Metabolic Utu859 CO2 29.0 mEq/L 08/11/2016 Comp Metabolic Mfj750 ANION GAP 13 08/11/2016 Comp Metabolic Cmt294 GLUCOSE 120 mg/dL 08/11/2016 Comp Metabolic Qir316 Creat 0.8 mg/dL 08/11/2016 Comp Metabolic Nec778 eGFR 101 ml/min/1.73m2 08/11/2016 Comp Metabolic Lqk787 BUN 18 mg/dL 08/11/2016 Comp Metabolic Boc825 B/C Ratio 22.5 Ratio 08/11/2016 Comp Metabolic Uws476 CALCIUM 9.5 mg/dL 08/11/2016 Comp Metabolic Afl829 ALK PHOS 104 U/L 08/11/2016 Comp Metabolic Qxe014 AST(SGOT) 16 U/L 08/11/2016 Comp Metabolic Smm010 ALT(SGPT) 8 U/L 08/11/2016 Comp Metabolic Gia472 BILI T 0.4 mg/dL 08/11/2016 Comp Metabolic Jpb288 ALBUMIN 3.8 g/dL 08/11/2016 Comp Metabolic Khz101 TPRO 8.4 g/dL 08/11/2016 Comp Metabolic Yrl710 GLOB 4.6 g/dL 08/11/2016 Comp Metabolic Jsl390 A/G Ratio 0.8 Ratio 08/11/2016 Comp Metabolic Dfv860 Osmo 266 mOsmo 08/11/2016 Culture Urine [id number] URINE CULTURE SEE NOTES 04/19/2016 Culture Urine [id number] Continued Results 04/19/2016 Urine Culture Ucult Complete >100,000 col/ml aerobic growth sent to ref lab 04/17/2016 Culture Urine [id number] URINE CULTURE SEE NOTES 02/13/2016 Culture Urine [id number] Continued Results 02/13/2016 Urine Culture Ucult Complete [...] Codes Date URINALYSIS NONAUTO W/O SCOPE CPT-4: 52547 02/16/2018 URINALYSIS NONAUTO W/O SCOPE CPT-4: 25309 11/14/2017 PPPS, SUBSEQ VISIT CPT -4: G0439 06/07/2017 URINALYSIS NONAUTO W/O SCOPE CPT-4: 89772 05/02/2017 URINALYSIS NONAUTO W/O SCOPE CPT-4: 91663 04/26/2017 PPPS, SUBSEQ VISIT CPT -4: G0439 06/01/2016 URINALYSIS NONAUTO W/O SCOPE CPT-4: 37127 04/16/2016 URINALYSIS NONAUTO W/O SCOPE CPT-4: 74639 02/10/2016 Vital Signs Date Vital 05/22/2018 Blood Pressure 1: 112/68 Code : 8480-6 BMI: 18.6 Code : 96642-6 Heart Rate 1 : 128 bpm Height: 5'5" SpO2: 98% Weight: 112 lbs 04/04/2018 Blood Pressure 1: 94/52 Code : 8480-6 Heart Rate 1: 120 bpm Height: 5'5" Respiratory Rate: 18 bpm SpO2: 98% Weight: 02/16/2018 Blood Pressure 1: 120/70 Code : 8480-6 BMI: 19.1 Code : 85302-9 Heart Rate 1 : 115 bpm Height: 5'5" SpO2: 97% Weight: 115 lbs 12/30/2017 Blood Pressure 1: 100/68 Code : 8480-6 BMI: 18.3 Code : 74737-5 Heart Rate 1 : 120 bpm Height: 5'5" SpO2: 94% Weight: 110 lbs 10/13/2017 Blood Pressure 1: 136/78 Code : 8480-6 BMI: 18.1 Code : 28669-4 Heart Rate 1 : 126 bpm Height: 5'5" SpO2: 96% Weight: 109 lbs 07/12/2017 Blood Pressure 1: 100/56 Code : 8480-6 BMI: 18.1 Code : 54424-0 Heart Rate 1 : 123 bpm Height: 5'5" SpO2: 99% Weight: 109 lbs 06/07/2017 Blood Pressure 1: 98/68 Code : 8480-6 BMI: 18.1 Code : 08487-3 Heart Rate 1 : 120 bpm Height: 5'5" SpO2: 99% Waist Measure (cm): 80 cm Weight: 109 lbs 05/24/2017 Blood Pressure 1: 104/62 Code : 8480-6 BMI: 18.1 Code : 12355-6 Heart Rate 1 : 121 bpm Height: 5'5" SpO2: 97% Weight: 109 lbs 04/27/2017 Blood Pressure 1: 132/84 Code : 8480-6 BMI: 17.8 Code : 55530-1 Heart Rate 1 : 129 bpm Height: 5'5" SpO2: 99% Weight: 107 lbs 04/13/2017 Blood Pressure 1: 100/66 Code : 8480-6 Heart Rate 1: 120 bpm Height: 5'5" SpO2: 99% Weight: 03/30/2017 Blood Pressure 1: 112/66 Code : 8480-6 BMI: 17.8 Code : 18264-9 Heart Rate 1 : 112 bpm Height: 5'5" SpO2: 98% Weight: 107 lbs 03/02/2017 Blood Pressure 1: 128/78 Code : 8480-6 BMI: 18.1 Code : 58450-7 Heart Rate 1 : 86 bpm Height: 5'5" SpO2: 95% Weight: 109 lbs 08/30/2016 Blood Pressure 1: 102/60 Code : 8480-6 BMI: 18.1 Code : 98040-5 Heart Rate 1 : 135 bpm Height: 5'5" SpO2: 98% Weight: 109 lbs 08/11/2016 Blood Pressure 1: 100/66 Code : 8480-6 BMI: 18.6 Code : 50981-9 Heart Rate 1 : 86 bpm Height: 5'5" SpO2: 94% Weight: 112 lbs 06/01/2016 Blood Pressure 1: 126/80 Code : 8480-6 BMI: 19.0 Code : 83459-8 Heart Rate 1 : 100 bpm Height: 5'5" SpO2: 98% Waist Measure (cm): 64 cm Weight: 114 lbs 04/16/2016 Blood Pressure 1: 124/80 Code : 8480-6 Heart Rate 1: 110 bpm SpO2: 97% 02/10/2016 Blood Pressure 1: 102/64 Code : 8480-6 BMI: 18.3 Code : 42430-4 Heart Rate 1 : 114 bpm Height: [...] Present Encounters Encounter Performer Location Codes Date ([id number]) [id number] EST. PATIENT, LEVEL IV Diagnosis: Unsteadiness on feet[ICD10: R26.81] Diagnosis: Other abnormalities of gait and mobility[ICD10: R26.89] Diagnosis: Mixed incontinence[ICD10: N39.46] Diagnosis: Other epilepsy, not intractable, without status epilepticus[ICD10: G40.802] [facility] CPT-4: 76790 2017 ([id number]) 56394 EST. PATIENT, LEVEL III Diagnosis: Right upper quadrant abdominal rigidity[ICD10: R19.31] Diagnosis: Functional diarrhea[ICD10: K59.1] Diagnosis: Calculus of gallbladder without cholecystitis without obstruction[ ICD10: K80.20] [facility] CPT-4: 41240 04/04/2018 ([id number]) 94216 EST. PATIENT, LEVEL IV Diagnosis: Other epilepsy, not intractable, without status epilepticus[ICD10: G40.802] Diagnosis: Slow transit constipation[ICD10: K59.01] Diagnosis: Dysuria[ICD10: R30.0] Diagnosis: Age-related osteoporosis without current pathological fracture[ICD10 : M81.0] Magali Zepeda MD, [facility] CPT-4: 23426 2017 ([id number]) 42018 EST. PATIENT, LEVEL III Diagnosis: Slow transit constipation[ICD10: K59.01] Mishel Zepeda MD, [facility] CPT-4: 88955 12/30/2017 ([id number]) 74793 EST. PATIENT, LEVEL IV Diagnosis: Other epilepsy, not intractable, without status epilepticus[ICD10: G40.802] Diagnosis: Slow transit constipation[ICD10: K59.01] Magali Zepeda MD, [facility] CPT-4: 72808 10/13/2017 ([id number]) 63679 EST. PATIENT, LEVEL III Diagnosis: Other epilepsy, not intractable, without status epilepticus[ICD10: G40.802] Diagnosis: Dysuria[ICD10: R30.0] Diagnosis: Mixed incontinence[ICD10: N39.46] Magali Zepeda MD, [facility] CPT-4: 36360 07/12/2017 ([id number]) 43232 EST. 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 PATIENT, LEVEL III Diagnosis: Other epilepsy, not intractable, without status epilepticus[ICD10: G40.802] Magali Zepeda MD [facility] CPT-4: 15540 2016 ([id number]) 61189 EST. 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 PATIENT, LEVEL IV Diagnosis: Calculus of gallbladder without cholecystitis without obstruction[ ICD10: K80.20] Diagnosis: Benign paroxysmal vertigo, bilateral[ICD10: H81.13] Diagnosis: Slow transit constipation[ICD10: K59.01] Magali Zepeda MD, [facility] CPT-4: 10535 03/02/2017 ([id number]) 98813 EST. 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 PATIENT, LEVEL IV Diagnosis: Other epilepsy, not intractable, without status epilepticus[ICD10: G40.802] Diagnosis: Low back pain[ICD10: M54.5] Diagnosis: Pressure ulcer of sacral region, stage 1[ICD10: L89.151] Windy Zepeda MD, [facility] CPT-4: 01689 08/11/2016 ([id number]) 52725 EST. PATIENT, LEVEL III Diagnosis: Urinary tract infection, site not specified[ICD10: N39.0] Diagnosis: Slow transit constipation[ICD10: K59.01] Mishel Zepeda MD, [facility] CPT-4: 58202 04/16/2016 ([id number]) OFFICE VISIT, NEW - LEVEL 4 Diagnosis: Other abnormalities of gait and mobility[ICD10: R26.89] Diagnosis: Dysuria[ICD10: R30.0] Diagnosis: Rheumatoid arthritis without rheumatoid factor, multiple sites[ICD10 : M06.09] Magali Zepeda MD, [facility] CPT-4: 32607 Plan of Care Planned Activity Notes Codes Status Date Visit Plan: Epilepsy - discussed with patient - need to continue with current dose of dilantin - extra dose PRN for symptoms of "twitching" which is a prodrome prior to true seizure occurs. Mixed Incontinence - discussed with patient the need for Kegel exercises. Weakness - continue with strengthening, advised increased activity in the house. 05/22/2018 Appointment: Magali Zepeda WPtel: [facility] (15 min) Moderate 05/22/2018 Patient Education: Patient Medication Summary Completed 05/22/2018 Appointment: Magali Zepeda WPtel: [facility] (15 min) Moderate 05/15/2018 Visit Plan: Diarrhea - with right upper quadrant pain - cholelithiasis - recommendation is for pt to be seen by Dr. Mcintyre - pt sent to his clinic today for work-up and plan for removal of gallbladder. 04/04/2018 Visit Plan: Diarrhea - with right upper quadrant pain - cholelithiasis - recommendation is for pt to be seen by Dr. Mcintyre - pt sent to his clinic today for work-up and plan for removal of gallbladder. pt will need home health post-surgically as she is already weak and will need physical therapy as well as nursing oversight post-operatively. 04/04/2018 Appointment: Magali Zepeda WPtel[facility] (15 min) Moderate 04/04/2018 Patient Education: Patient Medication Summary Completed 04/04/2018 Patient Education: Diarrhea Completed 04/04/2018 Visit Plan: Epilepsy - chronic - continue with current regimen - check labs. Osteoporosis - pt is currently getting Prolia in [place], this is a big burden for her - They have asked for her to be set up for prolia for at the end of may at [address]- to call with specific date. Dysuria - UA - +leukocytes - start on keflex - rx sent to pharmacy. Chronic constipation - monitor symptoms. Continue with supportive care. 02/16/2018 Appointment: Magali Zepeda WPtel: [facility] (15 min) Moderate 02/16/2018 Patient Education: [...] this regimen. 12/30/2017 Appointment: Mishel Wilson WPtel: [phone] [place] (30 min) Complex 12/30/2017 Patient [...] regimen. 10/13/2017 Appointment: Magali Zepeda WPtel: [phone] [facility] [place] (15 min) Moderate 10/13/2017 Patient Education: Patient Medication Summary Completed 10/13/2017 Appointment: Magali Zepeda WPtel: [facility] (15 min) Moderate 10/06/2017 Appointment: Lab [...] accident 07/12/2017 Appointment: Magali Zepeda WPtel: [phone] [facility] (15 min) Moderate 07/12/2017 Patient Education: Patient Medication Summary Completed 07/12/2017 Appointment: Magali Zepeda WPtel: [phone] [facility] (15 min) Moderate 07/05/2017 Visit Plan: Medicare [...] surrogate. 06/07/2017 Appointment: Windy Greco WPtel: [phone] [facility] [facility] - Annual Wellness Visit 06/07/2017 Patient [...] per week. 05/24/2017 Appointment: Magali Zepeda WPtel: [facility] (15 min) Moderate 05/24/2017 Patient Education: Patient Medication Summary Completed 05/24/2017 Appointment: Magali Zepeda WPtel: [phone] [id number] (15 min) Moderate 05/11/2017 Visit Plan: UTI [...] a week) 04/27/2017 Appointment: Magali Zepeda WPtel: [id number] (15 min) Moderate 04/27/2017 Patient Education: [...] symptoms. 04/13/2017 [id number] ([facility]) Moderate 04/13/2017 Patient Education: Patient [...] treatment strategy. 03/30/2017 Appointment: Magali Zepeda WPtel: [phone] [id number] [place] (15 min) Moderate 03/30/2017 Patient [...] constipation. 03/02/2017 Appointment: [id number] [place] (30 min) Complex 03/02/2017 Patient Education: Patient Medication Summary Completed 03/02/2017 Visit Plan: RA and Gait abnormality -continue with current treatments - supportive care Suspect some of her movement abnormalities may be due to her lamotrigine. 08/30/2016 Appointment: [id number] [place] (30 min) Complex 08/30/2016 Patient Education: [...] warmth, discharge. 08/11/2016 Appointment: Windy Greco WPtel: [phone] [facility] (30 min) Complex 08/11/2016 Patient Education: [...] care surrogate. 06/01/2016 Appointment: Windy Greco WPtel: [phone] [facility] [facility] - Annual Wellness Visit 06/01/2016 Patient [...] this regimen. 04/16/2016 Appointment: Mishel Wilson WPtel: [phone] [id number] (15 min) Moderate 04/16/2016 Patient Education: Patient Medication Summary Completed 04/16/2016 Visit Plan: RA and Gait abnormality - recommended pt to have referral to physical therapy at [facility]. Suspect some of her movement abnormalities may be due to her lamotrigine. 02/10/2016 Appointment: [id number] [facility] 02/10/2016 Patient Education: Patient Medication [...] and plan for removal of gallbladder. . Diarrhea - with right upper quadrant pain - cholelithiasis - recommendation is for pt to be seen by Dr. Mcintyre - pt sent to his clinic today for work-up and plan for removal of gallbladder. pt will need home health post-surgically as she is already weak and will need physical therapy as well as nursing oversight post-operatively. . Epilepsy - chronic - continue with current regimen - check labs. Osteoporosis - pt is currently getting Prolia in [place], this is a big burden for her [...] have referral to physical therapy at [facility]. Suspect some of her movement abnormalities [...] for health care surrogate. . Epilepsy - discussed with patient - need to continue with current dose of dilantin - extra dose PRN for symptoms of "twitching" which is a prodrome prior to true seizure occurs. Mixed Incontinence - discussed with patient the need for Kegel exercises. Weakness - continue with strengthening, advised increased activity in the house. . RA and Gait abnormality -continue with [...] RECOMMEND PROBIOTIC-ANY BRAND IS FINE: DAYAN LANG [facility], ALIGN sign release for labs from [...]
--- OUTSIDE RECORDS SUMMARY | 2018-07-17 11:05 | XMS REPORT | CCD ---
Author Author Magali Zepeda Organization Magali Zepeda MD, [facility] Address [address] [place] [address] Phone Care Team Providers Care Residential Sales Representative Name Role Phone PP Unavailable CCM Unavailable Summary Purpose Interface Exchange Insurance Providers Payer name Policy type / Coverage type Covered libertarian ID Effective Begin Date Effective End Date WPS Medicare Part B Medicare Part B [id number] Unknown [employer] Medicare Part B [id number] Unknown Family history Sister Diagnosis Age At [...] Unknown Retired 02/10/[address]: 625550265 Never smoker 02/10/[address]: 427216830 Never drinks alcohol 02/10/2016 Has the patient [...] Instructions Dilantin Extended 100 mg capsule RxNorm: 043347 Capsule(s) TAKE 1 CAP TID ON Tue AND 1 CAPSULE QID ON //TUE. if having symptoms of seizure activity, take an extra pill 05/29/2018 No Stop Date Active Dilantin Extended 100 mg capsule RxNorm: 838683 Capsule(s) TAKE 1 CAP TID x2 DAYS , THEN 1 CAPSULE qid x2 DAYs, THEN REPEAT CYCLE. if having symptoms of seizure activity, take an extra pill 05/22/2018 Inactive lamotrigine 150 mg tablet RxNorm: 939527 TAKE 1 TABLET BY MOUTH AT BEDTIME 04/17/2018 No Stop Date Active Dilantin Extended 100 mg capsule RxNorm: 400458 TAKE 1 CAPSULE BY MOUTH THREE TIMES DAILY FOR 3 DAYS, THEN 1 CAPSULE FOUR TIMES DAILY FOR 1 DAY, THEN REPEAT CYCLE. 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 Dilantin Extended 100 mg capsule RxNorm: 558009 Capsule(s) PO UD 1 cap TID x 3 days then 1 cap qid x 1 day then repeat cycle 12/15/2017 04/11/2018 Inactive give 1 month supply lamotrigine 150 mg tablet RxNorm: 658457 1 Tablet(s) PO QHS 04/05/2018 Inactive lamotrigine 100 mg tablet RxNorm: 646385 1 Tablet(s) PO QAM 03/30/2018 Inactive Levaquin 500 mg tablet RxNorm: 185047 1 Tablet(s) PO daily 12/11/2017 Inactive Keflex 500 mg capsule RxNorm: 400267 1 Capsule(s) PO TID 201711/20/2017 Inactive Keflex 500 mg capsule RxNorm: 433688 1 Capsule(s) PO TID 201711/13/2017 Inactive Dilantin Extended 100 mg capsule RxNorm: 706524 Capsule(s) PO UD m3pill/tue3 pill/ wed 4 pill/ thur 2pill/fri 3pill/sat 4pill/sun 3 pill 201712/14/2017 Inactive Dilantin Extended 100 mg capsule RxNorm: 744738 Capsule(s) PO UD -Alternate 300 mg for two days in a row and then 400 mg for one day and repeat cycle 10/04/2017 10/12/2017 Inactive Augmentin 500 mg-125 mg tablet RxNorm: 784522 1 Tablet(s) PO TID 07/15/2017 07/14/2017 Inactive Augmentin 500 mg-125 mg tablet RxNorm: 484609 1 Tablet(s) PO TID 07/15/2017 07/21/2017 Inactive Dilantin Extended 100 mg capsule RxNorm: 051705 1 Capsule(s) PO daily -Alternate 300 mg and 400 mg every other day 06/07/2017 10/03/2017 Inactive Bactrim DS 800 mg-160 mg tablet RxNorm: 595961 1 Tablet(s) PO BID 05/02/2017 05/08/2017 Inactive Dilantin Extended 100 mg capsule RxNorm: 395526 1 Capsule(s) PO daily in the afternoon and 2 Capsules PO HS- Will take an additional pill if she has a lot of jerking 04/27/2017 06/06/2017 Inactive Keflex 500 mg capsule RxNorm: 813861 1 Capsule(s) PO TID 201604/23/2017 Inactive dicyclomine 10 mg capsule RxNorm: 968727 1 Capsule(s) PO BID as needed 03/30/2017 05/28/2017 Inactive Senna with Docusate Sodium 8.6 mg-50 mg tablet RxNorm: 672243 1 Tablet(s) PO BID as needed constipation 03/02/20172017 Inactive Keflex 500 mg capsule RxNorm: 945713 1 Capsule(s) PO TID 201608/20/2016 Inactive Levaquin 500 mg tablet RxNorm: 704369 1 Tablet(s) PO daily 09/201504/22/2016 Inactive ciprofloxacin 500 mg tablet RxNorm: 091555 1 Tablet(s) PO BID 02/10/2016 02/16/2016 Inactive prednisone 10 mg tablet RxNorm: 024788 1 Tablet(s) PO as needed for pain No Start Date Active Prolia 60 mg/mL subcutaneous syringe RxNorm: 413416 1 injection SQ Q6 months No Start Date Active lamotrigine 150 mg tablet RxNorm: 679859 1 Tablet(s) PO QHS No Start Date 12/06/2017 Inactive lamotrigine 100 mg tablet RxNorm: 030045 1 Tablet(s) PO QAM No Start Date 12/06/2017 Inactive Dilantin Extended 100 mg capsule RxNorm: 778477 Capsule(s) PO TAKES FOUR CAPSULES FOR 2 DAYS, THEN THREE CAPSULES FOR 1 DAY, THEN REPEATS No Start Date 04/26/2017 Inactive Humira 20 mg/0.4 mL subcutaneous syringe kit RxNorm: 036695 1 injection SQ every 2 weeks- Prescribed [...] Ord7 DILANTIN 10.5 UG/ML 05/11/2018 Comp Metabolic Ygh173 NA 138 mEq/L 05/11/2018 Comp Metabolic Fsv898 K 4.0 mEq/L 05/11/2018 Comp Metabolic Iuc910 CL 100 mEq/L 05/11/2018 Comp Metabolic Xgs711 CO2 29.0 mEq/L 05/11/2018 Comp Metabolic Dpw810 ANION GAP 13 05/11/2018 Comp Metabolic Muj678 GLUCOSE 84 mg/dL 05/11/2018 Comp Metabolic Eza479 Creat 0.8 mg/dL 05/11/2018 Comp Metabolic Oza293 eGFR 77 ml/min/1.73m2 05/11/2018 Comp Metabolic Kow382 BUN 26 mg/dL 05/11/2018 Comp Metabolic Zxb531 B/C Ratio 33.3 Ratio 05/11/2018 Comp Metabolic Lkv593 CALCIUM 9.1 mg/dL 05/11/2018 Comp Metabolic Zgd470 ALK PHOS 97 U/L 05/11/2018 Comp Metabolic Hvn985 AST(SGOT) 14 U/L 05/11/2018 Comp Metabolic Zae816 ALT(SGPT) 7 U/L 05/11/2018 Comp Metabolic Xsv123 BILI T 0.3 mg/dL 05/11/2018 Comp Metabolic Nhy737 ALBUMIN 3.6 g/dL 05/11/2018 Comp Metabolic Fej205 TPRO 6.9 g/dL 05/11/2018 Comp Metabolic Tep330 GLOB 3.3 g/dL 05/11/2018 Comp Metabolic Ern850 A/G Ratio 1.1 Ratio 05/11/2018 Comp Metabolic Rmx074 Osmo 280 mOsmo 05/11/2018 Dilantin Ord7 DILANTIN 10.7 UG/ML 04/25/2018 Valproic Acid Sbi168 VALPROIC <10 ug/ml 04/24/2018 Dilantin Ord7 DILANTIN 10.6 UG/ML 04/11/2018 Culture Urine [id number] URINE CULTURE SEE NOTES 02/20/2018 Culture Urine [id number] Continued Results 02/20/2018 Urine Culture Ucult Complete >100,000 col/ml aerobic growth sent to ref lab 02/17/2018 Dilantin Ord7 DILANTIN 14.4 UG/ML 02/16/2018 Comp Metabolic Msj773 NA 135 mEq/L 02/16/2018 Comp Metabolic Yfn984 K 3.8 mEq/L 02/16/2018 Comp Metabolic Pnf421 CL 99 mEq/L 02/16/2018 Comp Metabolic Kyn599 CO2 28.0 mEq/L 02/16/2018 Comp Metabolic Xpa132 ANION GAP 12 02/16/2018 Comp Metabolic Mdz007 GLUCOSE 101 mg/dL 02/16/2018 Comp Metabolic Fpa929 Creat 0.8 mg/dL 02/16/2018 Comp Metabolic Hhd441 eGFR 75 ml/min/1.73m2 02/16/2018 Comp Metabolic Bzs078 BUN 20 mg/dL 02/16/2018 Comp Metabolic Bbg327 B/C Ratio 25.0 Ratio 02/16/2018 Comp Metabolic Xut523 CALCIUM 8.9 mg/dL 02/16/2018 Comp Metabolic Nfu596 ALK PHOS 95 U/L 02/16/2018 Comp Metabolic Bpv260 AST(SGOT) 13 U/L 02/16/2018 Comp Metabolic Ykv095 ALT(SGPT) 7 U/L 02/16/2018 Comp Metabolic Ifc981 BILI T 0.4 mg/dL 02/16/2018 Comp Metabolic Zqx432 ALBUMIN 3.6 g/dL 02/16/2018 Comp Metabolic Nnb006 TPRO 7.2 g/dL 02/16/2018 Comp Metabolic Dkc176 GLOB 3.6 g/dL 02/16/2018 Comp Metabolic Usv299 A/G Ratio 1.0 Ratio 02/16/2018 Comp Metabolic Mqz835 Osmo 273 mOsmo 02/16/2018 Urine Culture Ucult Complete >100,000 col/ml aerobic growth sent to ref lab 11/15/2017 Comp Metabolic Ako118 NA 136 mEq/L 10/13/2017 Comp Metabolic Ygv225 K 4.0 mEq/L 10/13/2017 Comp Metabolic Tiw160 CL 98 mEq/L 10/13/2017 Comp Metabolic Yoa370 CO2 28.0 mEq/L 10/13/2017 Comp Metabolic Jvl521 ANION GAP 14 10/13/2017 Comp Metabolic Hnt291 GLUCOSE 94 mg/dL 10/13/2017 Comp Metabolic Mhc549 Creat 0.7 mg/dL 10/13/2017 Comp Metabolic Sra521 eGFR 82 ml/min/1.73m2 10/13/2017 Comp Metabolic Cbp429 BUN 26 mg/dL 10/13/2017 Comp Metabolic Jbf284 B/C Ratio 35.1 Ratio 10/13/2017 Comp Metabolic Ugf389 CALCIUM 9.1 mg/dL 10/13/2017 Comp Metabolic Ekj121 ALK PHOS 98 U/L 10/13/2017 Comp Metabolic Ihq530 AST(SGOT) 15 U/L 10/13/2017 Comp Metabolic Cou638 ALT(SGPT) 8 U/L 10/13/2017 Comp Metabolic Hqm954 BILI T 0.4 mg/dL 10/13/2017 Comp Metabolic Gbs803 ALBUMIN 3.7 g/dL 10/13/2017 Comp Metabolic Ifh463 TPRO 7.8 g/dL 10/13/2017 Comp Metabolic Wcn280 GLOB 4.1 g/dL 10/13/2017 Comp Metabolic Qjq263 A/G Ratio 0.9 Ratio 10/13/2017 Comp Metabolic Lcd339 Osmo 276 mOsmo 10/13/2017 Dilantin Ord7 DILANTIN 21.4 Result Verified By Repeat Analysis UG/ML 10/13/2017 Dilantin Ord7 DILANTIN 24.1 Result Verified By Repeat Analysis UG/ML 10/03/2017 Dilantin Ord7 DILANTIN 18.1 UG/ML 06/30/2017 Dilantin Ord7 DILANTIN 22.7 UG/ML 06/16/2017 Dilantin Ord7 DILANTIN 26.1 UG/ML 06/07/2017 Dilantin Ord7 DILANTIN 24.1 UG/ML 05/24/2017 Dilantin Ord7 DILANTIN 19.6 UG/ML 05/11/2017 Culture Urine [id number] URINE CULTURE SEE NOTES 05/06/2017 Culture Urine [id number] Continued Results 05/06/2017 Urine Culture Ucult Complete >100,000 col/ml aerobic growth sent to ref lab 05/03/2017 Dilantin Ord7 DILANTIN 12.6 UG/ML 04/27/2017 Calcium Ord79 CALCIUM 9.3 mg/dL 04/19/2017 Dilantin Ord7 DILANTIN 21.6 UG/ML 04/19/2017 Dilantin Ord7 DILANTIN 10.3 UG/ML 04/13/2017 Dilantin Ord7 DILANTIN 21.9 UG/ML 04/07/2017 Comp Metabolic Ktx813 NA 137 mEq/L 03/30/2017 Comp Metabolic Tob184 K 3.7 mEq/L 03/30/2017 Comp Metabolic Rxd148 CL 98 mEq/L 03/30/2017 Comp Metabolic Kbw439 CO2 29.0 mEq/L 03/30/2017 Comp Metabolic Cwa931 ANION GAP 14 03/30/2017 Comp Metabolic Gat559 GLUCOSE 100 mg/dL 03/30/2017 Comp Metabolic Ctj928 Creat 0.9 mg/dL 03/30/2017 Comp Metabolic Snx040 eGFR 88 ml/min/1.73m2 03/30/2017 Comp Metabolic Flj275 BUN 22 mg/dL 03/30/2017 Comp Metabolic Rmw998 B/C Ratio 24.4 Ratio 03/30/2017 Comp Metabolic Ujq535 CALCIUM 9.4 mg/dL 03/30/2017 Comp Metabolic Ouz578 ALK PHOS 113 U/L 03/30/2017 Comp Metabolic Hjd424 AST(SGOT) 16 U/L 03/30/2017 Comp Metabolic Blt620 ALT(SGPT) 7 U/L 03/30/2017 Comp Metabolic Fnq097 BILI T 0.3 mg/dL 03/30/2017 Comp Metabolic Zzg368 ALBUMIN 3.9 g/dL 03/30/2017 Comp Metabolic Ptb966 TPRO 8.0 g/dL 03/30/2017 Comp Metabolic Koc837 GLOB 4.1 g/dL 03/30/2017 Comp Metabolic Ove474 A/G Ratio 0.9 Ratio 03/30/2017 Comp Metabolic Fzs918 Osmo 277 mOsmo 03/30/2017 Lipid Ord30 CHOL 214 mg/dL 03/30/2017 Lipid Ord30 HDL 61.0 mg/dl 03/30/2017 Lipid Ord30 TRIG 130 mg/dL 03/30/2017 Lipid Ord30 LDL 127 mg/dL 03/30/2017 Lipid Ord30 C/HDL 3.5 Ratio 03/30/2017 Dilantin Ord7 DILANTIN 32.5 UG/ML 03/30/2017 Folate Ord36 Folate 16.46 ng/mL 03/30/2017 Tsh Ord6 hTSH II 0.95 uIU/mL 03/30/2017 B12 Lab689 B12 592.00 pg/ml 03/30/2017 Cbc With Differential [...] 30.9 pg 03/30/2017 Cbc With Differential Ord2 Crawford% 23.9 % 03/30/2017 Cbc With Differential Ord2 [...] 0.44 K/ul 03/30/2017 Cbc With Differential Ord2 Crawford ABS# 0.3 K/ul 03/30/2017 Cbc With Differential [...] 30.3 pg 08/11/2016 Cbc With Differential Ord2 Crawford% 31.7 % 08/11/2016 Cbc With Differential Ord2 [...] 0.59 K/ul 08/11/2016 Cbc With Differential Ord2 Crawford ABS# 0.6 K/ul 08/11/2016 Cbc With Differential Ord2 Eos ABS# 0.0 K/ul 08/11/2016 Cbc With Differential Ord2 Baso ABS# 0.0 K/ul 08/11/2016 Dilantin Ord7 DILANTIN 17.2 UG/ML 08/11/2016 Tsh Ord6 hTSH II 0.82 uIU/mL 08/11/2016 Comp Metabolic Ocv051 NA 131 mEq/L 08/11/2016 Comp Metabolic Snk326 K 4.1 mEq/L 08/11/2016 Comp Metabolic Vwr930 CL 93 mEq/L 08/11/2016 Comp Metabolic Ihn370 CO2 29.0 mEq/L 08/11/2016 Comp Metabolic Tph176 ANION GAP 13 08/11/2016 Comp Metabolic Uhg008 GLUCOSE 120 mg/dL 08/11/2016 Comp Metabolic Cok293 Creat 0.8 mg/dL 08/11/2016 Comp Metabolic Vse123 eGFR 101 ml/min/1.73m2 08/11/2016 Comp Metabolic Dgi768 BUN 18 mg/dL 08/11/2016 Comp Metabolic Pnw571 B/C Ratio 22.5 Ratio 08/11/2016 Comp Metabolic Jqk313 CALCIUM 9.5 mg/dL 08/11/2016 Comp Metabolic Xhj913 ALK PHOS 104 U/L 08/11/2016 Comp Metabolic Hao358 AST(SGOT) 16 U/L 08/11/2016 Comp Metabolic Vpx098 ALT(SGPT) 8 U/L 08/11/2016 Comp Metabolic Npy533 BILI T 0.4 mg/dL 08/11/2016 Comp Metabolic Bco783 ALBUMIN 3.8 g/dL 08/11/2016 Comp Metabolic Kel596 TPRO 8.4 g/dL 08/11/2016 Comp Metabolic Vpe560 GLOB 4.6 g/dL 08/11/2016 Comp Metabolic Zvk373 A/G Ratio 0.8 Ratio 08/11/2016 Comp Metabolic Cgs823 Osmo 266 mOsmo 08/11/2016 Culture Urine [id number] URINE CULTURE SEE NOTES 04/19/2016 Culture Urine [id number] Continued Results 04/19/2016 Urine Culture Ucult Complete >100,000 col/ml aerobic growth sent to ref lab 04/17/2016 Culture Urine [id number] URINE CULTURE SEE NOTES 02/13/2016 Culture Urine [id number] Continued Results 02/13/2016 Urine Culture Ucult Complete [...] Codes Date URINALYSIS NONAUTO W/O SCOPE CPT-4: 85968 02/16/2018 URINALYSIS NONAUTO W/O SCOPE CPT-4: 17019 11/14/2017 PPPS, SUBSEQ VISIT CPT -4: G0439 06/07/2017 URINALYSIS NONAUTO W/O SCOPE CPT-4: 03186 05/02/2017 URINALYSIS NONAUTO W/O SCOPE CPT-4: 21978 04/26/2017 PPPS, SUBSEQ VISIT CPT -4: G0439 06/01/2016 URINALYSIS NONAUTO W/O SCOPE CPT-4: 23766 04/16/2016 URINALYSIS NONAUTO W/O SCOPE CPT-4: 44902 02/10/2016 Vital Signs Date Vital 05/22/2018 Blood Pressure 1: 112/68 Code : 8480-6 BMI: 18.6 Code : 06188-0 Heart Rate 1 : 128 bpm Height: 5'5" SpO2: 98% Weight: 112 lbs 04/04/2018 Blood Pressure 1: 94/52 Code : 8480-6 Heart Rate 1: 120 bpm Height: 5'5" Respiratory Rate: 18 bpm SpO2: 98% Weight: 02/16/2018 Blood Pressure 1: 120/70 Code : 8480-6 BMI: 19.1 Code : 14979-3 Heart Rate 1 : 115 bpm Height: 5'5" SpO2: 97% Weight: 115 lbs 12/30/2017 Blood Pressure 1: 100/68 Code : 8480-6 BMI: 18.3 Code : 61532-7 Heart Rate 1 : 120 bpm Height: 5'5" SpO2: 94% Weight: 110 lbs 10/13/2017 Blood Pressure 1: 136/78 Code : 8480-6 BMI: 18.1 Code : 04762-5 Heart Rate 1 : 126 bpm Height: 5'5" SpO2: 96% Weight: 109 lbs 07/12/2017 Blood Pressure 1: 100/56 Code : 8480-6 BMI: 18.1 Code : 62503-8 Heart Rate 1 : 123 bpm Height: 5'5" SpO2: 99% Weight: 109 lbs 06/07/2017 Blood Pressure 1: 98/68 Code : 8480-6 BMI: 18.1 Code : 87768-3 Heart Rate 1 : 120 bpm Height: 5'5" SpO2: 99% Waist Measure (cm): 80 cm Weight: 109 lbs 05/24/2017 Blood Pressure 1: 104/62 Code : 8480-6 BMI: 18.1 Code : 55986-1 Heart Rate 1 : 121 bpm Height: 5'5" SpO2: 97% Weight: 109 lbs 04/27/2017 Blood Pressure 1: 132/84 Code : 8480-6 BMI: 17.8 Code : 33178-9 Heart Rate 1 : 129 bpm Height: 5'5" SpO2: 99% Weight: 107 lbs 04/13/2017 Blood Pressure 1: 100/66 Code : 8480-6 Heart Rate 1: 120 bpm Height: 5'5" SpO2: 99% Weight: 03/30/2017 Blood Pressure 1: 112/66 Code : 8480-6 BMI: 17.8 Code : 70762-1 Heart Rate 1 : 112 bpm Height: 5'5" SpO2: 98% Weight: 107 lbs 03/02/2017 Blood Pressure 1: 128/78 Code : 8480-6 BMI: 18.1 Code : 76608-1 Heart Rate 1 : 86 bpm Height: 5'5" SpO2: 95% Weight: 109 lbs 08/30/2016 Blood Pressure 1: 102/60 Code : 8480-6 BMI: 18.1 Code : 93021-1 Heart Rate 1 : 135 bpm Height: 5'5" SpO2: 98% Weight: 109 lbs 08/11/2016 Blood Pressure 1: 100/66 Code : 8480-6 BMI: 18.6 Code : 32818-8 Heart Rate 1 : 86 bpm Height: 5'5" SpO2: 94% Weight: 112 lbs 06/01/2016 Blood Pressure 1: 126/80 Code : 8480-6 BMI: 19.0 Code : 24716-3 Heart Rate 1 : 100 bpm Height: 5'5" SpO2: 98% Waist Measure (cm): 64 cm Weight: 114 lbs 04/16/2016 Blood Pressure 1: 124/80 Code : 8480-6 Heart Rate 1: 110 bpm SpO2: 97% 02/10/2016 Blood Pressure 1: 102/64 Code : 8480-6 BMI: 18.3 Code : 88799-7 Heart Rate 1 : 114 bpm Height: [...] Present Encounters Encounter Performer Location Codes Date ([id number]) 19738 EST. PATIENT, LEVEL IV Diagnosis: Unsteadiness on feet[ICD10: R26.81] Diagnosis: Other abnormalities of gait and mobility[ICD10: R26.89] Diagnosis: Mixed incontinence[ICD10: N39.46] Diagnosis: Other epilepsy, not intractable, without status epilepticus[ICD10: G40.802] Magali Zepeda MD, [facility] CPT-4: 97422 2017 ([id number]) 28734 EST. PATIENT, LEVEL III Diagnosis: Right upper quadrant abdominal rigidity[ICD10: R19.31] Diagnosis: Functional diarrhea[ICD10: K59.1] Diagnosis: Calculus of gallbladder without cholecystitis without obstruction[ ICD10: K80.20] Magali Zepeda MD, [facility] CPT-4: 50978 04/04/2018 ([id number]) 48770 EST. PATIENT, LEVEL IV Diagnosis: Other epilepsy, not intractable, without status epilepticus[ICD10: G40.802] Diagnosis: Slow transit constipation[ICD10: K59.01] Diagnosis: Dysuria[ICD10: R30.0] Diagnosis: Age-related osteoporosis without current pathological fracture[ICD10 : M81.0] Magali Zepeda MD, [facility] CPT-4: 92754 2017 ([id number]) 21213 EST. PATIENT, LEVEL III Diagnosis: Slow transit constipation[ICD10: K59.01] Mishel Zepeda MD, [facility] CPT-4: 26739 12/30/2017 ([id number]) 64179 EST. PATIENT, LEVEL IV Diagnosis: Other epilepsy, not intractable, without status epilepticus[ICD10: G40.802] Diagnosis: Slow transit constipation[ICD10: K59.01] Magali Zepeda MD, [facility] CPT-4: 76433 10/13/2017 ([id number]) 33823 EST. PATIENT, LEVEL III Diagnosis: Other epilepsy, not intractable, without status epilepticus[ICD10: G40.802] Diagnosis: Dysuria[ICD10: R30.0] Diagnosis: Mixed incontinence[ICD10: N39.46] Magali Zepeda MD, [facility] CPT-4: 58452 07/12/2017 ([id number]) 70688 EST. 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 PATIENT, LEVEL III Diagnosis: Other epilepsy, not intractable, without status epilepticus[ICD10: G40.802] Magali Zepeda MD, [facility] CPT-4: 91342 2016 ([id number]) 54771 EST. 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 PATIENT, LEVEL IV Diagnosis: Calculus of gallbladder without cholecystitis without obstruction[ ICD10: K80.20] Diagnosis: Benign paroxysmal vertigo, bilateral[ICD10: H81.13] Diagnosis: Slow transit constipation[ICD10: K59.01] Magali Zepeda MD, [facility] CPT-4: 28598 03/02/2017 ([id number]) 46573 EST. 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 PATIENT, LEVEL IV Diagnosis: Other epilepsy, not intractable, without status epilepticus[ICD10: G40.802] Diagnosis: Low back pain[ICD10: M54.5] Diagnosis: Pressure ulcer of sacral region, stage 1[ICD10: L89.151] Windy Zepeda MD, [facility] CPT-4: 58409 08/11/2016 ([id number]) 64035 EST. PATIENT, LEVEL III Diagnosis: Urinary tract infection, site not specified[ICD10: N39.0] Diagnosis: Slow transit constipation[ICD10: K59.01] Mishel Zepeda MD, [facility] CPT-4: 32852 04/16/2016 ([id number]) OFFICE VISIT, NEW - LEVEL 4 Diagnosis: Other abnormalities of gait and mobility[ICD10: R26.89] Diagnosis: Dysuria[ICD10: R30.0] Diagnosis: Rheumatoid arthritis without rheumatoid factor, multiple sites[ICD10 : M06.09] Magali Zepeda MD, [facility] CPT-4: 22861 Plan of Care Planned Activity Notes Codes [...] the house. 05/22/2018 Appointment: Magali Zepeda WPtel: [phone] [facility] (15 min) Moderate 05/22/2018 Patient Education: Patient Medication Summary Completed 05/22/2018 Appointment: Magali Zepeda WPtel: [facility] [place] (15 min) Moderate 05/15/2018 Visit Plan: [...] oversight post-operatively. 04/04/2018 Appointment: Magali Zepeda WPtel: [facility] [place] (15 min) Moderate 04/04/2018 Patient Education: Patient Medication Summary Completed 04/04/2018 Patient Education: Diarrhea Completed 04/04/2018 Visit Plan: Epilepsy - chronic - continue with current regimen - check labs. Osteoporosis - pt is currently getting Prolia in [place], this is a big burden for her - They have asked for her to be set up for prolia for at the end of may at [address]- to call with specific date. Dysuria - UA - +leukocytes - start on keflex - rx sent to pharmacy. Chronic constipation - monitor symptoms. Continue with supportive care. 02/16/2018 Appointment: Magali Zepeda WPtel: [facility] [place] (15 min) Moderate 02/16/2018 Patient Education: [...] this regimen. 12/30/2017 Appointment: Mishel Wilson WPtel: [phone] [phone] [place] (30 min) Complex 12/30/2017 Patient [...] regimen. 10/13/2017 Appointment: Magali Zepeda WPtel: [phone] [facility] [place] (15 min) Moderate 10/13/2017 Patient Education: Patient Medication Summary Completed 10/13/2017 Appointment: Magali Zepeda WPtel: [phone] [facility] [place] (15 min) Moderate 10/06/2017 Appointment: Lab [...] accident 07/12/2017 Appointment: [phone] [place] ([facility] min) Moderate 07/12/2017 Patient Education: Patient Medication Summary Completed 07/12/2017 Appointment: [phone] (15 min) Moderate 07/05/2017 Visit Plan: Medicare [...] care surrogate. 06/07/2017 Appointment: [phone] [facility] - Annual Wellness Visit 06/07/2017 [...] per week. 05/24/2017 Appointment: Magali Zepeda WPtel: [facility] (15 min) Moderate 05/24/2017 Patient Education: Patient Medication Summary Completed 05/24/2017 Appointment: Magali Zepeda WPtel: [facility] (15 min) Moderate 05/11/2017 Visit Plan: UTI [...] a week) 04/27/2017 Appointment: Magali Zepeda WPtel: [facility]5 [facility] (15 min) Moderate 04/27/2017 Patient Education: Patient [...] monitor symptoms. 04/13/2017 Appointment: Magali Zepeda WPtel: [facility] [place] (15 min) Moderate 04/13/2017 Patient Education: [...] treatment strategy. 03/30/2017 Appointment: [phone] [place] (15 min) Moderate 03/30/2017 [...] constipation. 03/02/2017 Appointment: [facility]eda [facility]el[phone] [place] (30 min) Complex 03/02/2017 Patient Education: Patient Medication Summary Completed 03/02/2017 Visit Plan: RA and Gait abnormality -continue with current treatments - supportive care Suspect some of her movement abnormalities may be due to her lamotrigine. 08/30/2016 Appointment: [facility]eda [phone] [place] (30 min) Complex 08/30/2016 Patient Education: [...] discharge. 08/11/2016 Appointment: Windy Greco WPtel: [phone] [facility] (30 min) Complex 08/11/2016 Patient Education: [...] surrogate. 06/01/2016 Appointment: Windy Greco WPtel: [phone] [facility] [facility] - Annual Wellness Visit 06/01/2016 Patient [...] this regimen. 04/16/2016 Appointment: Mishel Wilson WPtel: [phone] [phone] (15 min) Moderate 04/16/2016 Patient Education: Patient Medication Summary Completed 04/16/2016 Visit Plan: RA and Gait abnormality - recommended pt to have referral to physical therapy at via [facility]. Suspect some of her movement abnormalities may be due to her lamotrigine. 02/10/2016 Appointment: Magali Zepeda WPtel: [phone] [id number] [facility] 02/10/2016 Patient Education: Patient Medication [...] - pt is currently getting Prolia in [place], this is a big burden for her [...] her lamotrigine. RECOMMEND PROBIOTIC-ANY BRAND IS FINE: CULTURELLE, [place], ALIGN sign release for labs from DR [...] strengthening, advised increased activity in the house. increase dilantin to 100mg in morning and [...] change in treatment strategy. . Epilepsy - continue with dilantin - [...]
[2018-07-17 11:06] LABS: BASOPHILS % (AUTO) 1 % (0-10); EOSINOPHILS # (AUTO) 0.2 10^3/uL (0.0-0.3); EOSINOPHILS % (AUTO) 6 % (0-10); HEMATOCRIT 40 % (35-52); HEMOGLOBIN 13.4 G/DL (11.5-16.0); LYMPHOCYTES # (AUTO) 1.6 X 10^3 (1.0-4.0); LYMPHOCYTES % (AUTO) 58 % (12-44); MEAN CORPUSCULAR HEMOGLOBIN 30 PG (25-34); MEAN CORPUSCULAR HGB CONC 34 G/DL (32-36); MEAN CORPUSCULAR VOLUME 90 FL (80-99); MEAN PLATELET VOLUME 9.4 FL (7.4-10.4); MONOCYTES # (AUTO) 0.4 X 10^3 (0.0-1.0); MONOCYTES % (AUTO) 15 % (0-12); NEUTROPHILS # (AUTO) 0.6 X 10^3 (1.8-7.8); NEUTROPHILS % (AUTO) 20 % (42-75); PLATELET COUNT 157 10^3/uL (130-400); RED CELL DISTRIBUTION WIDTH 12.9 % (10.0-14.5); WHITE BLOOD COUNT 2.8 10^3/uL (4.3-11.0)
--- OUTSIDE RECORDS SUMMARY | 2018-07-17 11:07 | XMS REPORT | CCD ---
Author Author Magali Zepeda Organization Magali Zepeda MD, [facility] Address [address] [place] [address] Phone Care Team Providers Care Change Management Manager Name Role Phone PP Unavailable CCM Unavailable Summary Purpose Interface Exchange Insurance Providers Payer name Policy type / Coverage type Covered constitution party ID Effective Begin Date Effective End Date WPS Medicare Part B Medicare Part B [id number] Unknown [employer] Medicare Part B [id number] Unknown Family history Sister Diagnosis Age At [...] Unknown Retired 02/10/[address]: 081235376 Never smoker 02/10/[address]: 510868494 Never drinks alcohol 02/10/2016 Has the patient [...] Instructions Dilantin Extended 100 mg capsule RxNorm: 963624 Capsule(s) TAKE 1 CAP TID x2 DAYS , THEN 1 CAPSULE qid x2 DAYs, THEN REPEAT CYCLE. if having symptoms of seizure activity, take an extra pill 05/22/2018 No Stop Date Active lamotrigine 150 mg tablet RxNorm: 987569 TAKE 1 TABLET BY MOUTH AT BEDTIME 04/17/2018 No Stop Date Active Dilantin Extended 100 mg capsule RxNorm: 759297 TAKE 1 CAPSULE BY MOUTH THREE TIMES DAILY FOR 3 DAYS, THEN 1 CAPSULE FOUR TIMES DAILY FOR 1 DAY, THEN REPEAT CYCLE. 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 Dilantin Extended 100 mg capsule RxNorm: 577284 Capsule(s) PO UD 1 cap TID x 3 days then 1 cap qid x 1 day then repeat cycle 12/15/2017 04/11/2018 Inactive give 1 month supply lamotrigine 150 mg tablet RxNorm: 084427 1 Tablet(s) PO QHS 04/05/2018 Inactive lamotrigine 100 mg tablet RxNorm: 556995 1 Tablet(s) PO QAM 03/30/2018 Inactive Levaquin 500 mg tablet RxNorm: 449219 1 Tablet(s) PO daily 12/11/2017 Inactive Keflex 500 mg capsule RxNorm: 585855 1 Capsule(s) PO TID 201711/20/2017 Inactive Keflex 500 mg capsule RxNorm: 086413 1 Capsule(s) PO TID 201711/13/2017 Inactive Dilantin Extended 100 mg capsule RxNorm: 119077 Capsule(s) PO UD m3pill/tue3 pill/ wed 4 pill/ thur 2pill/fri 3pill/sat 4pill/sun 3 pill 201712/14/2017 Inactive Dilantin Extended 100 mg capsule RxNorm: 850315 Capsule(s) PO UD -Alternate 300 mg for two days in a row and then 400 mg for one day and repeat cycle 10/04/2017 10/12/2017 Inactive Augmentin 500 mg-125 mg tablet RxNorm: 609780 1 Tablet(s) PO TID 07/15/2017 07/14/2017 Inactive Augmentin 500 mg-125 mg tablet RxNorm: 211127 1 Tablet(s) PO TID 07/15/2017 07/21/2017 Inactive Dilantin Extended 100 mg capsule RxNorm: 810723 1 Capsule(s) PO daily -Alternate 300 mg and 400 mg every other day 06/07/2017 10/03/2017 Inactive Bactrim DS 800 mg-160 mg tablet RxNorm: 700706 1 Tablet(s) PO BID 05/02/2017 05/08/2017 Inactive Dilantin Extended 100 mg capsule RxNorm: 079994 1 Capsule(s) PO daily in the afternoon and 2 Capsules PO HS- Will take an additional pill if she has a lot of jerking 04/27/2017 06/06/2017 Inactive Keflex 500 mg capsule RxNorm: 406485 1 Capsule(s) PO TID 201604/23/2017 Inactive dicyclomine 10 mg capsule RxNorm: 294286 1 Capsule(s) PO BID as needed 03/30/2017 05/28/2017 Inactive Senna with Docusate Sodium 8.6 mg-50 mg tablet RxNorm: 716017 1 Tablet(s) PO BID as needed constipation 03/02/20172017 Inactive Keflex 500 mg capsule RxNorm: 025889 1 Capsule(s) PO TID 201608/20/2016 Inactive Levaquin 500 mg tablet RxNorm: 841166 1 Tablet(s) PO daily 09/201504/22/2016 Inactive ciprofloxacin 500 mg tablet RxNorm: 869501 1 Tablet(s) PO BID 02/10/2016 02/16/2016 Inactive prednisone 10 mg tablet RxNorm: 621830 1 Tablet(s) PO as needed for pain No Start Date Active Prolia 60 mg/mL subcutaneous syringe RxNorm: 199202 1 injection SQ Q6 months No Start Date Active lamotrigine 150 mg tablet RxNorm: 175861 1 Tablet(s) PO QHS No Start Date 12/06/2017 Inactive lamotrigine 100 mg tablet RxNorm: 253425 1 Tablet(s) PO QAM No Start Date 12/06/2017 Inactive Dilantin Extended 100 mg capsule RxNorm: 524807 Capsule(s) PO TAKES FOUR CAPSULES FOR 2 DAYS, THEN THREE CAPSULES FOR 1 DAY, THEN REPEATS No Start Date 04/26/2017 Inactive Humira 20 mg/0.4 mL subcutaneous syringe kit RxNorm: 449659 1 injection SQ every 2 weeks- Prescribed [...] Ord7 DILANTIN 10.5 UG/ML 05/11/2018 Comp Metabolic Gam384 NA 138 mEq/L 05/11/2018 Comp Metabolic Oih748 K 4.0 mEq/L 05/11/2018 Comp Metabolic Zmj478 CL 100 mEq/L 05/11/2018 Comp Metabolic Zrt809 CO2 29.0 mEq/L 05/11/2018 Comp Metabolic Icr631 ANION GAP 13 05/11/2018 Comp Metabolic Dad251 GLUCOSE 84 mg/dL 05/11/2018 Comp Metabolic Zqo988 Creat 0.8 mg/dL 05/11/2018 Comp Metabolic Old190 eGFR 77 ml/min/1.73m2 05/11/2018 Comp Metabolic Arl001 BUN 26 mg/dL 05/11/2018 Comp Metabolic Gsk369 B/C Ratio 33.3 Ratio 05/11/2018 Comp Metabolic Xsz906 CALCIUM 9.1 mg/dL 05/11/2018 Comp Metabolic Voq377 ALK PHOS 97 U/L 05/11/2018 Comp Metabolic Ofg612 AST(SGOT) 14 U/L 05/11/2018 Comp Metabolic Gvu591 ALT(SGPT) 7 U/L 05/11/2018 Comp Metabolic Muv601 BILI T 0.3 mg/dL 05/11/2018 Comp Metabolic Sfk695 ALBUMIN 3.6 g/dL 05/11/2018 Comp Metabolic Fjw754 TPRO 6.9 g/dL 05/11/2018 Comp Metabolic Jms510 GLOB 3.3 g/dL 05/11/2018 Comp Metabolic Zql484 A/G Ratio 1.1 Ratio 05/11/2018 Comp Metabolic Dfk141 Osmo 280 mOsmo 05/11/2018 Dilantin Ord7 DILANTIN 10.7 UG/ML 04/25/2018 Valproic Acid Toy187 VALPROIC <10 ug/ml 04/24/2018 Dilantin Ord7 DILANTIN 10.6 UG/ML 04/11/2018 Culture Urine [id number] URINE CULTURE SEE NOTES 02/20/2018 Culture Urine [id number] Continued Results 02/20/2018 Urine Culture Ucult Complete >100,000 col/ml aerobic growth sent to ref lab 02/17/2018 Dilantin Ord7 DILANTIN 14.4 UG/ML 02/16/2018 Comp Metabolic Ukt827 NA 135 mEq/L 02/16/2018 Comp Metabolic Oql056 K 3.8 mEq/L 02/16/2018 Comp Metabolic Nav864 CL 99 mEq/L 02/16/2018 Comp Metabolic Jwi684 CO2 28.0 mEq/L 02/16/2018 Comp Metabolic Srh858 ANION GAP 12 02/16/2018 Comp Metabolic Rce208 GLUCOSE 101 mg/dL 02/16/2018 Comp Metabolic Waf106 Creat 0.8 mg/dL 02/16/2018 Comp Metabolic Bav827 eGFR 75 ml/min/1.73m2 02/16/2018 Comp Metabolic Yyw422 BUN 20 mg/dL 02/16/2018 Comp Metabolic Jcr213 B/C Ratio 25.0 Ratio 02/16/2018 Comp Metabolic Bmw694 CALCIUM 8.9 mg/dL 02/16/2018 Comp Metabolic Boy076 ALK PHOS 95 U/L 02/16/2018 Comp Metabolic Dpt265 AST(SGOT) 13 U/L 02/16/2018 Comp Metabolic Jbn070 ALT(SGPT) 7 U/L 02/16/2018 Comp Metabolic Ure804 BILI T 0.4 mg/dL 02/16/2018 Comp Metabolic Wjg641 ALBUMIN 3.6 g/dL 02/16/2018 Comp Metabolic Xnh883 TPRO 7.2 g/dL 02/16/2018 Comp Metabolic Cwc808 GLOB 3.6 g/dL 02/16/2018 Comp Metabolic Hao367 A/G Ratio 1.0 Ratio 02/16/2018 Comp Metabolic Bdh308 Osmo 273 mOsmo 02/16/2018 Urine Culture Ucult Complete >100,000 col/ml aerobic growth sent to ref lab 11/15/2017 Comp Metabolic Cmg517 NA 136 mEq/L 10/13/2017 Comp Metabolic Nwa760 K 4.0 mEq/L 10/13/2017 Comp Metabolic Cyl011 CL 98 mEq/L 10/13/2017 Comp Metabolic Enc591 CO2 28.0 mEq/L 10/13/2017 Comp Metabolic Cvy580 ANION GAP 14 10/13/2017 Comp Metabolic Eby860 GLUCOSE 94 mg/dL 10/13/2017 Comp Metabolic Hks843 Creat 0.7 mg/dL 10/13/2017 Comp Metabolic Ppl636 eGFR 82 ml/min/1.73m2 10/13/2017 Comp Metabolic Pbr922 BUN 26 mg/dL 10/13/2017 Comp Metabolic Myn657 B/C Ratio 35.1 Ratio 10/13/2017 Comp Metabolic Yab404 CALCIUM 9.1 mg/dL 10/13/2017 Comp Metabolic Mmt133 ALK PHOS 98 U/L 10/13/2017 Comp Metabolic Yzy027 AST(SGOT) 15 U/L 10/13/2017 Comp Metabolic Puf607 ALT(SGPT) 8 U/L 10/13/2017 Comp Metabolic Vkr967 BILI T 0.4 mg/dL 10/13/2017 Comp Metabolic Qfi052 ALBUMIN 3.7 g/dL 10/13/2017 Comp Metabolic Zio648 TPRO 7.8 g/dL 10/13/2017 Comp Metabolic Eih376 GLOB 4.1 g/dL 10/13/2017 Comp Metabolic Vin967 A/G Ratio 0.9 Ratio 10/13/2017 Comp Metabolic Zli185 Osmo 276 mOsmo 10/13/2017 Dilantin Ord7 DILANTIN 21.4 Result Verified By Repeat Analysis UG/ML 10/13/2017 Dilantin Ord7 DILANTIN 24.1 Result Verified By Repeat Analysis UG/ML 10/03/2017 Dilantin Ord7 DILANTIN 18.1 UG/ML 06/30/2017 Dilantin Ord7 DILANTIN 22.7 UG/ML 06/16/2017 Dilantin Ord7 DILANTIN 26.1 UG/ML 06/07/2017 Dilantin Ord7 DILANTIN 24.1 UG/ML 05/24/2017 Dilantin Ord7 DILANTIN 19.6 UG/ML 05/11/2017 Culture Urine [id number] URINE CULTURE SEE NOTES 05/06/2017 Culture Urine [id number] Continued Results 05/06/2017 Urine Culture Ucult Complete >100,000 col/ml aerobic growth sent to ref lab 05/03/2017 Dilantin Ord7 DILANTIN 12.6 UG/ML 04/27/2017 Calcium Ord79 CALCIUM 9.3 mg/dL 04/19/2017 Dilantin Ord7 DILANTIN 21.6 UG/ML 04/19/2017 Dilantin Ord7 DILANTIN 10.3 UG/ML 04/13/2017 Dilantin Ord7 DILANTIN 21.9 UG/ML 04/07/2017 Comp Metabolic Tpu788 NA 137 mEq/L 03/30/2017 Comp Metabolic Pvx550 K 3.7 mEq/L 03/30/2017 Comp Metabolic Pqw870 CL 98 mEq/L 03/30/2017 Comp Metabolic Oeh698 CO2 29.0 mEq/L 03/30/2017 Comp Metabolic Gsq662 ANION GAP 14 03/30/2017 Comp Metabolic Wey308 GLUCOSE 100 mg/dL 03/30/2017 Comp Metabolic Udx660 Creat 0.9 mg/dL 03/30/2017 Comp Metabolic Mkx798 eGFR 88 ml/min/1.73m2 03/30/2017 Comp Metabolic Wiu723 BUN 22 mg/dL 03/30/2017 Comp Metabolic Bic665 B/C Ratio 24.4 Ratio 03/30/2017 Comp Metabolic Acr190 CALCIUM 9.4 mg/dL 03/30/2017 Comp Metabolic Kox027 ALK PHOS 113 U/L 03/30/2017 Comp Metabolic Sfz907 AST(SGOT) 16 U/L 03/30/2017 Comp Metabolic Sib661 ALT(SGPT) 7 U/L 03/30/2017 Comp Metabolic Thr264 BILI T 0.3 mg/dL 03/30/2017 Comp Metabolic Szu915 ALBUMIN 3.9 g/dL 03/30/2017 Comp Metabolic Act805 TPRO 8.0 g/dL 03/30/2017 Comp Metabolic Nos915 GLOB 4.1 g/dL 03/30/2017 Comp Metabolic Mhq124 A/G Ratio 0.9 Ratio 03/30/2017 Comp Metabolic Shh030 Osmo 277 mOsmo 03/30/2017 Lipid Ord30 CHOL 214 mg/dL 03/30/2017 Lipid Ord30 HDL 61.0 mg/dl 03/30/2017 Lipid Ord30 TRIG 130 mg/dL 03/30/2017 Lipid Ord30 LDL 127 mg/dL 03/30/2017 Lipid Ord30 C/HDL 3.5 Ratio 03/30/2017 Dilantin Ord7 DILANTIN 32.5 UG/ML 03/30/2017 Folate Ord36 Folate 16.46 ng/mL 03/30/2017 Tsh Ord6 hTSH II 0.95 uIU/mL 03/30/2017 B12 Boh307 B12 592.00 pg/ml 03/30/2017 Cbc With Differential [...] 30.9 pg 03/30/2017 Cbc With Differential Ord2 [place]% 23.9 % 03/30/2017 Cbc With Differential Ord2 [...] 0.44 K/ul 03/30/2017 Cbc With Differential Ord2 [place] ABS# 0.3 K/ul 03/30/2017 Cbc With Differential [...] 30.3 pg 08/11/2016 Cbc With Differential Ord2 [place]% 31.7 % 08/11/2016 Cbc With Differential Ord2 [...] 0.59 K/ul 08/11/2016 Cbc With Differential Ord2 [place] ABS# 0.6 K/ul 08/11/2016 Cbc With Differential Ord2 Eos ABS# 0.0 K/ul 08/11/2016 Cbc With Differential Ord2 Baso ABS# 0.0 K/ul 08/11/2016 Dilantin Ord7 DILANTIN 17.2 UG/ML 08/11/2016 Tsh Ord6 hTSH II 0.82 uIU/mL 08/11/2016 Comp Metabolic Tci165 NA 131 mEq/L 08/11/2016 Comp Metabolic Nox063 K 4.1 mEq/L 08/11/2016 Comp Metabolic Hne446 CL 93 mEq/L 08/11/2016 Comp Metabolic Noe234 CO2 29.0 mEq/L 08/11/2016 Comp Metabolic Zch540 ANION GAP 13 08/11/2016 Comp Metabolic Iiy385 GLUCOSE 120 mg/dL 08/11/2016 Comp Metabolic Mxp891 Creat 0.8 mg/dL 08/11/2016 Comp Metabolic Ree391 eGFR 101 ml/min/1.73m2 08/11/2016 Comp Metabolic Ibh020 BUN 18 mg/dL 08/11/2016 Comp Metabolic Vbw333 B/C Ratio 22.5 Ratio 08/11/2016 Comp Metabolic Myr642 CALCIUM 9.5 mg/dL 08/11/2016 Comp Metabolic Fjt662 ALK PHOS 104 U/L 08/11/2016 Comp Metabolic Hxo251 AST(SGOT) 16 U/L 08/11/2016 Comp Metabolic Wnx589 ALT(SGPT) 8 U/L 08/11/2016 Comp Metabolic Ufx631 BILI T 0.4 mg/dL 08/11/2016 Comp Metabolic Pqo323 ALBUMIN 3.8 g/dL 08/11/2016 Comp Metabolic Dsi330 TPRO 8.4 g/dL 08/11/2016 Comp Metabolic Owj700 GLOB 4.6 g/dL 08/11/2016 Comp Metabolic Uob137 A/G Ratio 0.8 Ratio 08/11/2016 Comp Metabolic Xab397 Osmo 266 mOsmo 08/11/2016 Culture Urine [id number] URINE CULTURE SEE NOTES 04/19/2016 Culture Urine [id number] Continued Results 04/19/2016 Urine Culture Ucult Complete >100,000 col/ml aerobic growth sent to ref lab 04/17/2016 Culture Urine [id number] URINE CULTURE SEE NOTES 02/13/2016 Culture Urine [id number] Continued Results 02/13/2016 Urine Culture Ucult Complete [...] No depression 02/10/2016 Neurologic dyskinesia or tremor 08/30/ 2016 Neurologic gait abnormality 02/10/2016 Musculoskeletal arthralgia(s) 02/10/2016 [...] Codes Date URINALYSIS NONAUTO W/O SCOPE CPT-4: 27038 02/16/2018 URINALYSIS NONAUTO W/O SCOPE CPT-4: 49823 11/14/2017 PPPS, SUBSEQ VISIT CPT -4: G0439 06/07/2017 URINALYSIS NONAUTO W/O SCOPE CPT-4: 17234 05/02/2017 URINALYSIS NONAUTO W/O SCOPE CPT-4: 79176 04/26/2017 PPPS, SUBSEQ VISIT CPT -4: G0439 06/01/2016 URINALYSIS NONAUTO W/O SCOPE CPT-4: 75599 04/16/2016 URINALYSIS NONAUTO W/O SCOPE CPT-4: 23529 02/10/2016 Vital Signs Date Vital 05/22/2018 Blood Pressure 1: 112/68 Code : 8480-6 BMI: 18.6 Code : 09298-3 Heart Rate 1 : 128 bpm Height: 5'5" SpO2: 98% Weight: 112 lbs 04/04/2018 Blood Pressure 1: 94/52 Code : 8480-6 Heart Rate 1: 120 bpm Height: 5'5" Respiratory Rate: 18 bpm SpO2: 98% Weight: 02/16/2018 Blood Pressure 1: 120/70 Code : 8480-6 BMI: 19.1 Code : 96617-9 Heart Rate 1 : 115 bpm Height: 5'5" SpO2: 97% Weight: 115 lbs 12/30/2017 Blood Pressure 1: 100/68 Code : 8480-6 BMI: 18.3 Code : 51229-4 Heart Rate 1 : 120 bpm Height: 5'5" SpO2: 94% Weight: 110 lbs 10/13/2017 Blood Pressure 1: 136/78 Code : 8480-6 BMI: 18.1 Code : 24346-2 Heart Rate 1 : 126 bpm Height: 5'5" SpO2: 96% Weight: 109 lbs 07/12/2017 Blood Pressure 1: 100/56 Code : 8480-6 BMI: 18.1 Code : 11308-1 Heart Rate 1 : 123 bpm Height: 5'5" SpO2: 99% Weight: 109 lbs 06/07/2017 Blood Pressure 1: 9868 Code : 8480-6 BMI: 18.1 Code : 65191-7 Heart Rate 1 : 120 bpm Height: 5'5" SpO2: 99% Waist Measure (cm): 80 cm Weight: 109 lbs 05/24/2017 Blood Pressure 1: 104/62 Code : 8480-6 BMI: 18.1 Code : 58658-4 Heart Rate 1 : 121 bpm Height: 5'5" SpO2: 97% Weight: 109 lbs 04/27/2017 Blood Pressure 1: 132/84 Code : 8480-6 BMI: 17.8 Code : 52788-5 Heart Rate 1 : 129 bpm Height: 5'5" SpO2: 99% Weight: 107 lbs 04/13/2017 Blood Pressure 1: 100/66 Code : 8480-6 Heart Rate 1: 120 bpm Height: 5'5" SpO2: 99% Weight: 03/30/2017 Blood Pressure 1: 112/66 Code : 8480-6 BMI: 17.8 Code : 39379-4 Heart Rate 1 : 112 bpm Height: 5'5" SpO2: 98% Weight: 107 lbs 03/02/2017 Blood Pressure 1: 128/78 Code : 8480-6 BMI: 18.1 Code : 04211-4 Heart Rate 1 : 86 bpm Height: 5'5" SpO2: 95% Weight: 109 lbs 08/30/2016 Blood Pressure 1: 102/60 Code : 8480-6 BMI: 18.1 Code : 62907-2 Heart Rate 1 : 135 bpm Height: 5'5" SpO2: 98% Weight: 109 lbs 08/11/2016 Blood Pressure 1: 100/66 Code : 8480-6 BMI: 18.6 Code : 13720-6 Heart Rate 1 : 86 bpm Height: 5'5" SpO2: 94% Weight: 112 lbs 06/01/2016 Blood Pressure 1: 126/80 Code : 8480-6 BMI: 19.0 Code : 77901-3 Heart Rate 1 : 100 bpm Height: 5'5" SpO2: 98% Waist Measure (cm): 64 cm Weight: 114 lbs 04/16/2016 Blood Pressure 1: 124/80 Code : 8480-6 Heart Rate 1: 110 bpm SpO2: 97% 02/10/2016 Blood Pressure 1: 102/64 Code : 8480-6 BMI: 18.3 Code : 41731-0 Heart Rate 1 : 114 bpm Height: [...] Present Encounters Encounter Performer Location Codes Date ([id number]) 93205 EST. PATIENT, LEVEL IV Diagnosis: Unsteadiness on feet[ICD10: R26.81] Diagnosis: Other abnormalities of gait and mobility[ICD10: R26.89] Diagnosis: Mixed incontinence[ICD10: N39.46] Diagnosis: Other epilepsy, not intractable, without status epilepticus[ICD10: G40.802] Magali Zepeda MD, [facility] CPT-4: 59236 2017 ([id number]) 51674 EST. PATIENT, LEVEL III Diagnosis: Right upper quadrant abdominal rigidity[ICD10: R19.31] Diagnosis: Functional diarrhea[ICD10: K59.1] Diagnosis: Calculus of gallbladder without cholecystitis without obstruction[ ICD10: K80.20] Magali Zepeda MD, [facility] CPT-4: 35528 04/04/2018 ([id number]) 09203 EST. PATIENT, LEVEL IV Diagnosis: Other epilepsy, not intractable, without status epilepticus[ICD10: G40.802] Diagnosis: Slow transit constipation[ICD10: K59.01] Diagnosis: Dysuria[ICD10: R30.0] Diagnosis: Age-related osteoporosis without current pathological fracture[ICD10 : M81.0] Magali Zepeda MD, [facility] CPT-4: 13153 2017 ([id number]) 23811 EST. PATIENT, LEVEL III Diagnosis: Slow transit constipation[ICD10: K59.01] Mishel Zepeda MD, [facility] CPT-4: 16004 12/30/2017 ([id number]) 81029 EST. PATIENT, LEVEL IV Diagnosis: Other epilepsy, not intractable, without status epilepticus[ICD10: G40.802] Diagnosis: Slow transit constipation[ICD10: K59.01] Magali Zepeda MD [facility] CPT-4: 71302 10/13/2017 [id number]) 41687 EST. PATIENT, LEVEL III Diagnosis: Other epilepsy, not intractable, without status epilepticus[ICD10: G40.802] Diagnosis: Dysuria[ICD10: R30.0] Diagnosis: Mixed incontinence[ICD10: N39.46] Magali Zepeda MD [facility] CPT-4: 39576 07/12/2017 [id number]) 80721 EST. 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 PATIENT, LEVEL III Diagnosis: Other epilepsy, not intractable, without status epilepticus[ICD10: G40.802] Magali Zepeda MD [facility] CPT-4: 66665 2016 [id number]) 03061 EST. 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 PATIENT, LEVEL IV Diagnosis: Calculus of gallbladder without cholecystitis without obstruction[ ICD10: K80.20] Diagnosis: Benign paroxysmal vertigo, bilateral[ICD10: H81.13] Diagnosis: Slow transit constipation[ICD10: K59.01] Magali Zepeda MD, [facility] CPT-4: 54850 03/02/2017 ([id number]) 41700 EST. 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 PATIENT, LEVEL IV Diagnosis: Other epilepsy, not intractable, without status epilepticus[ICD10: G40.802] Diagnosis: Low back pain[ICD10: M54.5] Diagnosis: Pressure ulcer of sacral region, stage 1[ICD10: L89.151] Windy Zepeda MD, [facility] CPT-4: 44184 08/11/2016 ([id number]) 05705 EST. PATIENT, LEVEL III Diagnosis: Urinary tract infection, site not specified[ICD10: N39.0] Diagnosis: Slow transit constipation[ICD10: K59.01] Mishel Zepeda MD, [facility] CPT-4: 02102 04/16/2016 ([id number]) OFFICE VISIT, NEW - LEVEL 4 Diagnosis: Other abnormalities of gait and mobility[ICD10: R26.89] Diagnosis: Dysuria[ICD10: R30.0] Diagnosis: Rheumatoid arthritis without rheumatoid factor, multiple sites[ICD10 : M06.09] Magali Zepeda MD, [facility] CPT-4: 94225 Plan of Care Planned Activity Notes Codes [...] advised increased activity in the house. 05/22/2018 Patient Education: Patient Medication Summary Completed 05/22/2018 App[facility] [phone] [facility] [place] ([facility] min) Moderate 05/15/2018 Visit Plan: [...] oversight post-operatively. 04/04/2018 Appointment: Magali Zepeda WPtel: [phone] [facility] [place] (15 min) Moderate 04/04/2018 Patient Education: Patient Medication Summary Completed 04/04/2018 Patient Education: Diarrhea Completed 04/04/2018 Visit Plan: Epilepsy - chronic - continue with current regimen - check labs. Osteoporosis - pt is currently getting Prolia in [place], this is a big burden for her - They have asked for her to be set up for prolia for at the end of may at [address]- to call with specific date. Dysuria - UA - +leukocytes - start on keflex - rx sent to pharmacy. Chronic constipation - monitor symptoms. Continue with supportive care. 02/16/2018 Appointment: [facility] [phone] [facility] [place] (15 min) Moderate 02/16/2018 Patient Education: [...] regimen. 12/30/2017 Appointment: Mishel Wilson WPtel: [phone] [phone] [place] (30 min) Complex 12/30/2017 Patient Education: [...] this regimen. 10/13/2017 Appointment: Magali Zepeda WPtel: [facility] [place] (15 min) Moderate 10/13/2017 Patient Education: Patient Medication Summary Completed 10/13/2017 Appointment: Magali Zepeda WPtel: [facility]0 [facility] [place] (15 min) Moderate 10/06/2017 Appointment: Lab [...] on accident 07/12/2017 Appointment: Magali Zepeda WPtel: [facility] [place] (15 min) Moderate 07/12/2017 Patient Education: Patient Medication Summary Completed 07/12/2017 Appointment: Magali Zepeda WPtel: [facility] [place] (15 min) Moderate 07/05/2017 Visit Plan: [...] care surrogate. 06/07/2017 Appointment: Windy Greco WPtel: [address] [place], [place] [id number] [facility] - Annual Wellness Visit 06/07/2017 [...] per week. 05/24/2017 Appointment: Magali Zepeda WPtel: [address] [place], [place] [id number] (15 min) Moderate 05/24/2017 Patient Education: Patient Medication Summary Completed 05/24/2017 Appointment: Magali Zepeda WPtel: [phone] [facility] (15 min) Moderate 05/11/2017 Visit Plan: UTI [...] Magali Zepeda WPtel: [facility]9 [facility] [place] (15 min) Moderate 04/27/2017 Patient Education: [...] Magali Zepeda WPtel: [facility]8 [facility] (15 min) Moderate 04/13/2017 Patient Education: Patient [...] treatment strategy. 03/30/2017 Appointment: Magali Zepeda WPtel: [facility] [place] (15 min) Moderate 03/30/2017 Patient Education: [...] for constipation. 03/02/2017 Appointment: Magali Zepeda WPtel: [facility]7 [facility]66[facility] (30 min) Complex 03/02/2017 Patient Education: Patient Medication Summary Completed 03/02/2017 Visit Plan: RA and Gait abnormality -continue with current treatments - supportive care Suspect some of her movement abnormalities may be due to her lamotrigine. 08/30/2016 Appointment: Magali Zepeda WPtel: [facility]5 [facility] [place] (30 min) Complex 08/30/2016 Patient Education: [...] warmth, discharge. 08/11/2016 Appointment: Windy Greco WPtel: [phone] [facility] (30 min) Complex 08/11/2016 Patient Education: Patient [...] care surrogate. 06/01/2016 Appointment: Windy Greco WPtel: [facility]3 [facility] [place] [address] - Annual Wellness Visit 06/01/2016 Patient Education: [...] this regimen. 04/16/2016 Appointment: Mishel Wilson [facility] [id number] (15 min) Moderate 04/16/2016 Patient Education: Patient Medication Summary Completed 04/16/2016 Visit Plan: RA and Gait abnormality - recommended pt to have referral to physical therapy at [facility]. Suspect some of her movement abnormalities may be due to her lamotrigine. 02/10/2016 Appointment: Magali Zepeda WPtel: [phone] [id number] [place] New Patient 02/10/2016 Patient Education: Patient [...] - pt is currently getting Prolia in [place], this is a big burden for her [...] have referral to physical therapy at [facility]. Suspect some of her movement abnormalities may [...] this regimen. RECOMMEND PROBIOTIC-ANY BRAND IS FINE: [facility], [place] sign release for labs from DR [...]
--- OUTSIDE RECORDS SUMMARY | 2018-07-17 11:09 | XMS REPORT | CCD ---
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 Name Role Phone PP Unavailable CCM Unavailable Summary Purpose Interface Exchange Insurance Providers Payer name Policy type / Coverage type Covered democrat ID Effective Begin Date Effective End Date WPS Medicare Part B Medicare Part B [id number] Unknown [employer] Medicare Part B [id number] Unknown Family history Sister Diagnosis Age At [...] Unknown Retired 02/10/[address]: 284365201 Never smoker 02/10/[address]: 542406061 Never drinks alcohol 02/10/2016 Has the patient [...] Date Stop Date Status Fill Instructions lamotrigine 150 mg tablet RxNorm: 792920 TAKE 1 TABLET BY MOUTH AT BEDTIME 04/17/2018 No Stop Date Active Dilantin Extended 100 mg capsule RxNorm: 537909 TAKE 1 CAPSULE BY MOUTH THREE TIMES DAILY FOR 3 DAYS, THEN 1 CAPSULE FOUR TIMES DAILY FOR 1 DAY, THEN REPEAT CYCLE. 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 Dilantin Extended 100 mg capsule RxNorm: 483961 Capsule(s) PO UD 1 cap TID x 3 days then 1 cap qid x 1 day then repeat cycle 12/15/2017 04/11/2018 Inactive give 1 month supply lamotrigine 150 mg tablet RxNorm: 868464 1 Tablet(s) PO QHS 04/05/2018 Inactive lamotrigine 100 mg tablet RxNorm: 977914 1 Tablet(s) PO QAM 03/30/2018 Inactive Levaquin 500 mg tablet RxNorm: 454290 1 Tablet(s) PO daily 12/11/2017 Inactive Keflex 500 mg capsule RxNorm: 988801 1 Capsule(s) PO TID 201711/20/2017 Inactive Keflex 500 mg capsule RxNorm: 379513 1 Capsule(s) PO TID 201711/13/2017 Inactive Dilantin Extended 100 mg capsule RxNorm: 195401 Capsule(s) PO UD m3pill/tue3 pill/ wed 4 pill/ thur 2pill/fri 3pill/sat 4pill/sun 3 pill 201712/14/2017 Inactive Dilantin Extended 100 mg capsule RxNorm: 984945 Capsule(s) PO UD -Alternate 300 mg for two days in a row and then 400 mg for one day and repeat cycle 10/04/2017 10/12/2017 Inactive Augmentin 500 mg-125 mg tablet RxNorm: 714477 1 Tablet(s) PO TID 07/15/2017 07/14/2017 Inactive Augmentin 500 mg-125 mg tablet RxNorm: 046787 1 Tablet(s) PO TID 07/15/2017 07/21/2017 Inactive Dilantin Extended 100 mg capsule RxNorm: 563886 1 Capsule(s) PO daily -Alternate 300 mg and 400 mg every other day 06/07/2017 10/03/2017 Inactive Bactrim DS 800 mg-160 mg tablet RxNorm: 476790 1 Tablet(s) PO BID 05/02/2017 05/08/2017 Inactive Dilantin Extended 100 mg capsule RxNorm: 436381 1 Capsule(s) PO daily in the afternoon and 2 Capsules PO HS- Will take an additional pill if she has a lot of jerking 04/27/2017 06/06/2017 Inactive Keflex 500 mg capsule RxNorm: 199268 1 Capsule(s) PO TID 201604/23/2017 Inactive dicyclomine 10 mg capsule RxNorm: 246403 1 Capsule(s) PO BID as needed 03/30/2017 05/28/2017 Inactive Senna with Docusate Sodium 8.6 mg-50 mg tablet RxNorm: 374341 1 Tablet(s) PO BID as needed constipation 03/02/20172017 Inactive Keflex 500 mg capsule RxNorm: 602085 1 Capsule(s) PO TID 201608/20/2016 Inactive Levaquin 500 mg tablet RxNorm: 908486 1 Tablet(s) PO daily 09/201504/22/2016 Inactive ciprofloxacin 500 mg tablet RxNorm: 767847 1 Tablet(s) PO BID 02/10/2016 02/16/2016 Inactive prednisone 10 mg tablet RxNorm: 606236 1 Tablet(s) PO as needed for pain No Start Date Active Prolia 60 mg/mL subcutaneous syringe RxNorm: 247465 1 injection SQ Q6 months No Start Date Active lamotrigine 150 mg tablet RxNorm: 323034 1 Tablet(s) PO QHS No Start Date 12/06/2017 Inactive lamotrigine 100 mg tablet RxNorm: 506595 1 Tablet(s) PO QAM No Start Date 12/06/2017 Inactive Dilantin Extended 100 mg capsule RxNorm: 483734 Capsule(s) PO TAKES FOUR CAPSULES FOR 2 DAYS, THEN THREE CAPSULES FOR 1 DAY, THEN REPEATS No Start Date 04/26/2017 Inactive Humira 20 mg/0.4 mL subcutaneous syringe kit RxNorm: 703699 1 injection SQ every 2 weeks- Prescribed [...] Ord7 DILANTIN 10.5 UG/ML 05/11/2018 Comp Metabolic Cft312 NA 138 mEq/L 05/11/2018 Comp Metabolic Als924 K 4.0 mEq/L 05/11/2018 Comp Metabolic Kku695 CL 100 mEq/L 05/11/2018 Comp Metabolic Duy481 CO2 29.0 mEq/L 05/11/2018 Comp Metabolic Wgo250 ANION GAP 13 05/11/2018 Comp Metabolic Vfs201 GLUCOSE 84 mg/dL 05/11/2018 Comp Metabolic Afq940 Creat 0.8 mg/dL 05/11/2018 Comp Metabolic Dxq261 eGFR 77 ml/min/1.73m2 05/11/2018 Comp Metabolic Pyl654 BUN 26 mg/dL 05/11/2018 Comp Metabolic Ggq938 B/C Ratio 33.3 Ratio 05/11/2018 Comp Metabolic Jmg222 CALCIUM 9.1 mg/dL 05/11/2018 Comp Metabolic Kez329 ALK PHOS 97 U/L 05/11/2018 Comp Metabolic Lxi895 AST(SGOT) 14 U/L 05/11/2018 Comp Metabolic Hks091 ALT(SGPT) 7 U/L 05/11/2018 Comp Metabolic Deo050 BILI T 0.3 mg/dL 05/11/2018 Comp Metabolic Kor000 ALBUMIN 3.6 g/dL 05/11/2018 Comp Metabolic Umv568 TPRO 6.9 g/dL 05/11/2018 Comp Metabolic Ptq974 GLOB 3.3 g/dL 05/11/2018 Comp Metabolic Kjq327 A/G Ratio 1.1 Ratio 05/11/2018 Comp Metabolic Sct246 Osmo 280 mOsmo 05/11/2018 Dilantin Ord7 DILANTIN 10.7 UG/ML 04/25/2018 Valproic Acid Kjj876 VALPROIC <10 ug/ml 04/24/2018 Dilantin Ord7 DILANTIN 10.6 UG/ML 04/11/2018 Culture Urine [id number] URINE CULTURE SEE NOTES 02/20/2018 Culture Urine [id number] Continued Results 02/20/2018 Urine Culture Ucult Complete >100,000 col/ml aerobic growth sent to ref lab 02/17/2018 Dilantin Ord7 DILANTIN 14.4 UG/ML 02/16/2018 Comp Metabolic Rzc086 NA 135 mEq/L 02/16/2018 Comp Metabolic Rfj362 K 3.8 mEq/L 02/16/2018 Comp Metabolic Sba762 CL 99 mEq/L 02/16/2018 Comp Metabolic Xfl891 CO2 28.0 mEq/L 02/16/2018 Comp Metabolic Vdg647 ANION GAP 12 02/16/2018 Comp Metabolic Jmx338 GLUCOSE 101 mg/dL 02/16/2018 Comp Metabolic Hrs021 Creat 0.8 mg/dL 02/16/2018 Comp Metabolic Ybb981 eGFR 75 ml/min/1.73m2 02/16/2018 Comp Metabolic Knt850 BUN 20 mg/dL 02/16/2018 Comp Metabolic Xns976 B/C Ratio 25.0 Ratio 02/16/2018 Comp Metabolic Kat749 CALCIUM 8.9 mg/dL 02/16/2018 Comp Metabolic Wjy364 ALK PHOS 95 U/L 02/16/2018 Comp Metabolic Vkp380 AST(SGOT) 13 U/L 02/16/2018 Comp Metabolic Kvb248 ALT(SGPT) 7 U/L 02/16/2018 Comp Metabolic Fgz288 BILI T 0.4 mg/dL 02/16/2018 Comp Metabolic Uok924 ALBUMIN 3.6 g/dL 02/16/2018 Comp Metabolic Cmm378 TPRO 7.2 g/dL 02/16/2018 Comp Metabolic Hci895 GLOB 3.6 g/dL 02/16/2018 Comp Metabolic Syg695 A/G Ratio 1.0 Ratio 02/16/2018 Comp Metabolic Lbp591 Osmo 273 mOsmo 02/16/2018 Urine Culture Ucult Complete >100,000 col/ml aerobic growth sent to ref lab 11/15/2017 Comp Metabolic Zqg439 NA 136 mEq/L 10/13/2017 Comp Metabolic Xuz187 K 4.0 mEq/L 10/13/2017 Comp Metabolic Jza192 CL 98 mEq/L 10/13/2017 Comp Metabolic Soh134 CO2 28.0 mEq/L 10/13/2017 Comp Metabolic Pze450 ANION GAP 14 10/13/2017 Comp Metabolic Cqh116 GLUCOSE 94 mg/dL 10/13/2017 Comp Metabolic Ldm411 Creat 0.7 mg/dL 10/13/2017 Comp Metabolic Bfz546 eGFR 82 ml/min/1.73m2 10/13/2017 Comp Metabolic Qjb100 BUN 26 mg/dL 10/13/2017 Comp Metabolic Kds934 B/C Ratio 35.1 Ratio 10/13/2017 Comp Metabolic Viz104 CALCIUM 9.1 mg/dL 10/13/2017 Comp Metabolic Yye903 ALK PHOS 98 U/L 10/13/2017 Comp Metabolic Atb731 AST(SGOT) 15 U/L 10/13/2017 Comp Metabolic Yvh753 ALT(SGPT) 8 U/L 10/13/2017 Comp Metabolic Vyi724 BILI T 0.4 mg/dL 10/13/2017 Comp Metabolic Iqw021 ALBUMIN 3.7 g/dL 10/13/2017 Comp Metabolic Pjf366 TPRO 7.8 g/dL 10/13/2017 Comp Metabolic Aqk874 GLOB 4.1 g/dL 10/13/2017 Comp Metabolic Lyw765 A/G Ratio 0.9 Ratio 10/13/2017 Comp Metabolic Aqm923 Osmo 276 mOsmo 10/13/2017 Dilantin Ord7 DILANTIN 21.4 Result Verified By Repeat Analysis UG/ML 10/13/2017 Dilantin Ord7 DILANTIN 24.1 Result Verified By Repeat Analysis UG/ML 10/03/2017 Dilantin Ord7 DILANTIN 18.1 UG/ML 06/30/2017 Dilantin Ord7 DILANTIN 22.7 UG/ML 06/16/2017 Dilantin Ord7 DILANTIN 26.1 UG/ML 06/07/2017 Dilantin Ord7 DILANTIN 24.1 UG/ML 05/24/2017 Dilantin Ord7 DILANTIN 19.6 UG/ML 05/11/2017 Culture Urine [id number] URINE CULTURE SEE NOTES 05/06/2017 Culture Urine [id number] Continued Results 05/06/2017 Urine Culture Ucult Complete >100,000 col/ml aerobic growth sent to ref lab 05/03/2017 Dilantin Ord7 DILANTIN 12.6 UG/ML 04/27/2017 Calcium Ord79 CALCIUM 9.3 mg/dL 04/19/2017 Dilantin Ord7 DILANTIN 21.6 UG/ML 04/19/2017 Dilantin Ord7 DILANTIN 10.3 UG/ML 04/13/2017 Dilantin Ord7 DILANTIN 21.9 UG/ML 04/07/2017 Comp Metabolic Ryz585 NA 137 mEq/L 03/30/2017 Comp Metabolic Uxp566 K 3.7 mEq/L 03/30/2017 Comp Metabolic Ryk593 CL 98 mEq/L 03/30/2017 Comp Metabolic Qry383 CO2 29.0 mEq/L 03/30/2017 Comp Metabolic Gld346 ANION GAP 14 03/30/2017 Comp Metabolic Qmi886 GLUCOSE 100 mg/dL 03/30/2017 Comp Metabolic Ihk364 Creat 0.9 mg/dL 03/30/2017 Comp Metabolic Gbf621 eGFR 88 ml/min/1.73m2 03/30/2017 Comp Metabolic Wzm737 BUN 22 mg/dL 03/30/2017 Comp Metabolic Cbz570 B/C Ratio 24.4 Ratio 03/30/2017 Comp Metabolic Dot923 CALCIUM 9.4 mg/dL 03/30/2017 Comp Metabolic Igb588 ALK PHOS 113 U/L 03/30/2017 Comp Metabolic Jzt500 AST(SGOT) 16 U/L 03/30/2017 Comp Metabolic Nau684 ALT(SGPT) 7 U/L 03/30/2017 Comp Metabolic Jij281 BILI T 0.3 mg/dL 03/30/2017 Comp Metabolic Pjr775 ALBUMIN 3.9 g/dL 03/30/2017 Comp Metabolic Jud940 TPRO 8.0 g/dL 03/30/2017 Comp Metabolic Vyd810 GLOB 4.1 g/dL 03/30/2017 Comp Metabolic Bbp041 A/G Ratio 0.9 Ratio 03/30/2017 Comp Metabolic Num593 Osmo 277 mOsmo 03/30/2017 Lipid Ord30 CHOL 214 mg/dL 03/30/2017 Lipid Ord30 HDL 61.0 mg/dl 03/30/2017 Lipid Ord30 TRIG 130 mg/dL 03/30/2017 Lipid Ord30 LDL 127 mg/dL 03/30/2017 Lipid Ord30 C/HDL 3.5 Ratio 03/30/2017 Dilantin Ord7 DILANTIN 32.5 UG/ML 03/30/2017 Folate Ord36 Folate 16.46 ng/mL 03/30/2017 Tsh Ord6 hTSH II 0.95 uIU/mL 03/30/2017 B12 Ulb505 B12 592.00 pg/ml 03/30/2017 Cbc With Differential [...] 30.9 pg 03/30/2017 Cbc With Differential Ord2 [place]% 23.9 % 03/30/2017 Cbc With Differential Ord2 [...] 0.44 K/ul 03/30/2017 Cbc With Differential Ord2 [place] ABS# 0.3 K/ul 03/30/2017 Cbc With Differential [...] 30.3 pg 08/11/2016 Cbc With Differential Ord2 [place]% 31.7 % 08/11/2016 Cbc With Differential Ord2 [...] 0.59 K/ul 08/11/2016 Cbc With Differential Ord2 [place] ABS# 0.6 K/ul 08/11/2016 Cbc With Differential Ord2 Eos ABS# 0.0 K/ul 08/11/2016 Cbc With Differential Ord2 Baso ABS# 0.0 K/ul 08/11/2016 Dilantin Ord7 DILANTIN 17.2 UG/ML 08/11/2016 Tsh Ord6 hTSH II 0.82 uIU/mL 08/11/2016 Comp Metabolic Tth820 NA 131 mEq/L 08/11/2016 Comp Metabolic Agg341 K 4.1 mEq/L 08/11/2016 Comp Metabolic Lcz462 CL 93 mEq/L 08/11/2016 Comp Metabolic Pkj687 CO2 29.0 mEq/L 08/11/2016 Comp Metabolic Fqp918 ANION GAP 13 08/11/2016 Comp Metabolic Baj680 GLUCOSE 120 mg/dL 08/11/2016 Comp Metabolic Teo032 Creat 0.8 mg/dL 08/11/2016 Comp Metabolic Mrh604 eGFR 101 ml/min/1.73m2 08/11/2016 Comp Metabolic Wwa245 BUN 18 mg/dL 08/11/2016 Comp Metabolic Fpy513 B/C Ratio 22.5 Ratio 08/11/2016 Comp Metabolic Utr975 CALCIUM 9.5 mg/dL 08/11/2016 Comp Metabolic Pls827 ALK PHOS 104 U/L 08/11/2016 Comp Metabolic Cul171 AST(SGOT) 16 U/L 08/11/2016 Comp Metabolic Xfv978 ALT(SGPT) 8 U/L 08/11/2016 Comp Metabolic Mgm868 BILI T 0.4 mg/dL 08/11/2016 Comp Metabolic Byu311 ALBUMIN 3.8 g/dL 08/11/2016 Comp Metabolic Onz504 TPRO 8.4 g/dL 08/11/2016 Comp Metabolic Jfq922 GLOB 4.6 g/dL 08/11/2016 Comp Metabolic Hxh541 A/G Ratio 0.8 Ratio 08/11/2016 Comp Metabolic Yxo196 Osmo 266 mOsmo 08/11/2016 Culture Urine [id number] URINE CULTURE SEE NOTES 04/19/2016 Culture Urine [id number] Continued Results 04/19/2016 Urine Culture Ucult Complete >100,000 col/ml aerobic growth sent to ref lab 04/17/2016 Culture Urine [id number] URINE CULTURE SEE NOTES 02/13/2016 Culture Urine [id number] Continued Results 02/13/2016 Urine Culture Ucult Complete [...] time 02/10/2016 None Full Exam - General 1995 Psychiatric mood and affect Overall: normal mood and affect 02/10/2016 None Procedures Procedure Codes Date URINALYSIS NONAUTO W/O SCOPE CPT-4: 11691 02/16/2018 URINALYSIS NONAUTO W/O SCOPE CPT-4: 76167 11/14/2017 PPPS, SUBSEQ VISIT CPT -4: G0439 06/07/2017 URINALYSIS NONAUTO W/O SCOPE CPT-4: 22555 05/02/2017 URINALYSIS NONAUTO W/O SCOPE CPT-4: 51589 04/26/2017 PPPS, SUBSEQ VISIT CPT -4: G0439 06/01/2016 URINALYSIS NONAUTO W/O SCOPE CPT-4: 80780 04/16/2016 URINALYSIS NONAUTO W/O SCOPE CPT-4: 30083 02/10/2016 Vital Signs Date Vital 04/04/2018 Blood Pressure 1: 94/52 Code : 8480-6 Heart Rate 1: 120 bpm Height: 5'5" Respiratory Rate: 18 bpm SpO2: 98% Weight: 02/16/2018 Blood Pressure 1: 120/70 Code : 8480-6 BMI: 19.1 Code : 55262-9 Heart Rate 1 : 115 bpm Height: 5'5" SpO2: 97% Weight: 115 lbs 12/30/2017 Blood Pressure 1: 100/68 Code : 8480-6 BMI: 18.3 Code : 58662-0 Heart Rate 1 : 120 bpm Height: 5'5" SpO2: 94% Weight: 110 lbs 10/13/2017 Blood Pressure 1: 136/78 Code : 8480-6 BMI: 18.1 Code : 69646-9 Heart Rate 1 : 126 bpm Height: 5'5" SpO2: 96% Weight: 109 lbs 07/12/2017 Blood Pressure 1: 100/56 Code : 8480-6 BMI: 18.1 Code : 22122-6 Heart Rate 1 : 123 bpm Height: 5'5" SpO2: 99% Weight: 109 lbs 06/07/2017 Blood Pressure 1: 98/68 Code : 8480-6 BMI: 18.1 Code : 63740-4 Heart Rate 1 : 120 bpm Height: 5'5" SpO2: 99% Waist Measure (cm): 80 cm Weight: 109 lbs 05/24/2017 Blood Pressure 1: 104/62 Code : 8480-6 BMI: 18.1 Code : 41552-0 Heart Rate 1 : 121 bpm Height: 5'5" SpO2: 97% Weight: 109 lbs 04/27/2017 Blood Pressure 1: 132/84 Code : 8480-6 BMI: 17.8 Code : 52511-8 Heart Rate 1 : 129 bpm Height: 5'5" SpO2: 99% Weight: 107 lbs 04/13/2017 Blood Pressure 1: 100/66 Code : 8480-6 Heart Rate 1: 120 bpm Height: 5'5" SpO2: 99% Weight: 03/30/2017 Blood Pressure 1: 112/ Code : 8480-6 BMI: 17.8 Code : 19191-1 Heart Rate 1 : 112 bpm Height: 5'5" SpO2: 98% Weight: 107 lbs 03/02/2017 Blood Pressure 1: 128/78 Code : 8480-6 BMI: 18.1 Code : 91488-1 Heart Rate 1 : 86 bpm Height: 5'5" SpO2: 95% Weight: 109 lbs 08/30/2016 Blood Pressure 1: 102/60 Code : 8480-6 BMI: 18.1 Code : 93172-9 Heart Rate 1 : 135 bpm Height: 5'5" SpO2: 98% Weight: 109 lbs 08/11/2016 Blood Pressure 1: 100/66 Code : 8480-6 BMI: 18.6 Code : 80847-9 Heart Rate 1 : 86 bpm Height: 5'5" SpO2: 94% Weight: 112 lbs 06/01/2016 Blood Pressure 1: 126/80 Code : 8480-6 BMI: 19.0 Code : 17669-0 Heart Rate 1 : 100 bpm Height: 5'5" SpO2: 98% Waist Measure (cm): 64 cm Weight: 114 lbs 04/16/2016 Blood Pressure 1: 124/80 Code : 8480-6 Heart Rate 1: 110 bpm SpO2: 97% 02/10/2016 Blood Pressure 1: 102/64 Code : 8480-6 BMI: 18.3 Code : 59957-3 Heart Rate 1 : 114 bpm Height: [...] Present Encounters Encounter Performer Location Codes Date ([id number]) [id number] EST. PATIENT, LEVEL III Diagnosis: Right upper quadrant abdominal rigidity[ICD10: R19.31] Diagnosis: Functional diarrhea[ICD10: K59.1] Diagnosis: Calculus of gallbladder without cholecystitis without obstruction[ ICD10: K80.20] Magali Zepeda MD, [facility] CPT-4: 26869 04/04/2018 ([id number]) 47861 EST. PATIENT, LEVEL IV Diagnosis: Other epilepsy, not intractable, without status epilepticus[ICD10: G40.802] Diagnosis: Slow transit constipation[ICD10: K59.01] Diagnosis: Dysuria[ICD10: R30.0] Diagnosis: Age-related osteoporosis without current pathological fracture[ICD10 : M81.0] Magali Zepeda MD, [facility] CPT-4: 66974 2017 ([id number]) 38818 EST. PATIENT, LEVEL III Diagnosis: Slow transit constipation[ICD10: K59.01] Mishel Zepeda MD, [facility] CPT-4: 45768 12/30/2017 ([id number]) 49461 EST. PATIENT, LEVEL IV Diagnosis: Other epilepsy, not intractable, without status epilepticus[ICD10: G40.802] Diagnosis: Slow transit constipation[ICD10: K59.01] Magali Zepeda MD, [facility] CPT-4: 23985 10/13/2017 ([id number]) 55021 EST. PATIENT, LEVEL III Diagnosis: Other epilepsy, not intractable, without status epilepticus[ICD10: G40.802] Diagnosis: Dysuria[ICD10: R30.0] Diagnosis: Mixed incontinence[ICD10: N39.46] Magali Zepeda MD, [facility] CPT-4: 29610 07/12/2017 ([id number]) 81847 EST. 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 PATIENT, LEVEL III Diagnosis: Other epilepsy, not intractable, without status epilepticus[ICD10: G40.802] Magali Zepeda MD [facility] CPT-4: 44382 2016 ([id number]) 67855 EST. 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 PATIENT, LEVEL IV Diagnosis: Calculus of gallbladder without cholecystitis without obstruction[ ICD10: K80.20] Diagnosis: Benign paroxysmal vertigo, bilateral[ICD10: H81.13] Diagnosis: Slow transit constipation[ICD10: K59.01] Magali Zepeda MD, [facility] CPT-4: 74151 03/02/2017 ([id number]) 22277 EST. 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 PATIENT, LEVEL IV Diagnosis: Other epilepsy, not intractable, without status epilepticus[ICD10: G40.802] Diagnosis: Low back pain[ICD10: M54.5] Diagnosis: Pressure ulcer of sacral region, stage 1[ICD10: L89.151] Windy Zepeda MD, [facility] CPT-4: 31430 08/11/2016 ([id number]) 47179 EST. PATIENT, LEVEL III Diagnosis: Urinary tract infection, site not specified[ICD10: N39.0] Diagnosis: Slow transit constipation[ICD10: K59.01] Mishel Zepeda MD, [facility] CPT-4: 81985 04/16/2016 ([id number]) OFFICE VISIT, NEW - LEVEL 4 Diagnosis: Other abnormalities of gait and mobility[ICD10: R26.89] Diagnosis: Dysuria[ICD10: R30.0] Diagnosis: Rheumatoid arthritis without rheumatoid factor, multiple sites[ICD10 : M06.09] Magali Zepeda MD, [facility] CPT-4: 87561 Plan of Care Planned Activity Notes Codes [...] post-operatively. 04/04/2018 [phone] [facility] [place] ([facility] min) Moderate 04/04/2018 Patient Education: Patient Medication Summary Completed 04/04/2018 Patient Education: Diarrhea Completed 04/04/2018 Visit Plan: Epilepsy - chronic - continue with current regimen - check labs. Osteoporosis - pt is currently getting Prolia in [place], this is a big burden for her - They have asked for her to be set up for prolia for at the end of may at [address]- to call with specific date. Dysuria - UA - +leukocytes - start on keflex - rx sent to pharmacy. Chronic constipation - monitor symptoms. Continue with supportive care. 02/16/2018 Appointment: [facility] [phone] [facility] [place] ([facility] min) Moderate 02/16/2018 Patient [...] regimen. 12/30/2017 App[facility]ment[phone] [place] (30 min) Complex 12/30/2017 Patient Education: [...] this regimen. 10/13/2017 Appointment: [facility] [phone] [facility] [place] (15 min) Moderate 10/13/2017 Patient Education: Patient Medication Summary Completed 10/13/2017 Appointment: Magali Zepeda WPtel: [phone] [facility] (15 min) Moderate 10/06/2017 Appointment: Lab Draw [...] on accident 07/12/2017 Appointment: Mag[facility]epeda [facility] [address] [facility] [place] ([facility] min) Moderate 07/12/2017 Patient Education: Patient Medication Summary Completed 07/12/2017 Appointment: [facility] [phone] [facility] [place] (15 min) Moderate 07/05/2017 Visit [...] care surrogate. 06/07/2017 Appointment: Windy Greco WPtel[facility] [address] [facility] [facility] - Annual Wellness Visit 06/07/2017 Patient [...] per week. 05/24/2017 Appointment: Magali Zepeda WPtel[facility] [address] [facility] ([facility] min) Moderate 05/24/2017 Patient Education: Patient Medication Summary Completed 05/24/2017 Appointment: Magali Zepeda WPtel: [facility] [address] [facility] (15 min) Moderate 05/11/2017 Visit Plan: [...] week) 04/27/2017 Appointment: Magali Zepeda WPtel: [phone] [facility] (15 min) Moderate 04/27/2017 Patient Education: Patient [...] symptoms. 04/13/2017 Appointment: Magali Zepeda WPtel: [phone] [facility] (15 min) Moderate 04/13/2017 Patient Education: Patient [...] strategy. 03/30/2017 Appointment: Magali Zepeda WPtel: [phone] [facility] (15 min) Moderate 03/30/2017 Patient Education: Patient [...] for constipation. 03/02/2017 Appointment: Magali Zepeda WPtel: [facility] [address] [facility] (30 min) Complex 03/02/2017 Patient Education: Patient Medication Summary Completed 03/02/2017 Visit Plan: RA and Gait abnormality -continue with current treatments - supportive care Suspect some of her movement abnormalities may be due to her lamotrigine. 08/30/2016 Appointment: Magali Zepeda WPtel: [facility] [phone] [facility] (30 min) Complex 08/30/2016 Patient Education: Patient [...] warmth, discharge. 08/11/2016 Appointment: Windy Greco WPtel: [facility] [address] [facility] (30 min) Complex 08/11/2016 Patient [...] surrogate. 06/01/2016 Appointment: Wind[facility]co [facility] [phone] [facility] [facility] - Annual Wellness Visit 06/01/2016 Patient [...] [phone] [facility] (15 min) Moderate 04/16/2016 Patient Education: Patient Medication Summary Completed 04/16/2016 Visit Plan: RA and Gait abnormality - recommended pt to have referral to physical therapy at [facility]. Suspect some of her movement abnormalities may be due to her lamotrigine. 02/10/2016 Appointment: Magali Zepeda WPtel: [facility] [place] New Patient 02/10/2016 Patient Education: [...] - pt is currently getting Prolia in [place], this is a big burden for her [...] to call if symptoms do not improve. RECOMMEND PROBIOTIC-ANY BRAND IS FINE: DAYAN LANG [facility], ALIGN sign release for labs from DR [...] have 400mg three times a week) . Epilepsy - with chronic dilantin use [...] to have referral to physical therapy at [facility]. Suspect some of her movement abnormalities may be due to her lamotrigine. . RA and Gait abnormality -continue with current treatments - supportive care Suspect some of her movement abnormalities may be due to her lamotrigine. . Vertigo - referral to [facility] [...]
--- OUTSIDE RECORDS SUMMARY | 2018-07-17 11:11 | XMS REPORT | CCD ---
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 Name Role Phone PP Unavailable CCM Unavailable Summary Purpose Interface Exchange Insurance Providers Payer name Policy type / Coverage type Covered republican ID Effective Begin Date Effective End Date WPS Medicare Part B Medicare Part B [id number] 2017 Unknown [employer] Medicare Part B [id number] Unknown Family history Sister Diagnosis Age At [...] Unknown Retired 02/10/[address]: 610437645 Never smoker 02/10/[address]: 205856314 Never drinks alcohol 02/10/2016 Has the patient [...] Fill Instructions lamotrigine 150 mg tablet RxNorm: 381344 TAKE 1 TABLET BY MOUTH AT BEDTIME 04/17/2018 No Stop Date Active Dilantin Extended 100 mg capsule RxNorm: 006348 TAKE 1 CAPSULE BY MOUTH THREE TIMES DAILY FOR 3 DAYS, THEN 1 CAPSULE FOUR TIMES DAILY FOR 1 DAY, THEN REPEAT CYCLE. 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 Dilantin Extended 100 mg capsule RxNorm: 462861 Capsule(s) PO UD 1 cap TID x 3 days then 1 cap qid x 1 day then repeat cycle 12/15/2017 04/11/2018 Inactive give 1 month supply lamotrigine 150 mg tablet RxNorm: 561091 1 Tablet(s) PO QHS 04/05/2018 Inactive lamotrigine 100 mg tablet RxNorm: 693860 1 Tablet(s) PO QAM 03/30/2018 Inactive Levaquin 500 mg tablet RxNorm: 203855 1 Tablet(s) PO daily 12/11/2017 Inactive Keflex 500 mg capsule RxNorm: 983835 1 Capsule(s) PO TID 201711/20/2017 Inactive Keflex 500 mg capsule RxNorm: 779851 1 Capsule(s) PO TID 201711/13/2017 Inactive Dilantin Extended 100 mg capsule RxNorm: 186177 Capsule(s) PO UD m3pill/tue3 pill/ wed 4 pill/ thur 2pill/fri 3pill/sat 4pill/sun 3 pill 201712/14/2017 Inactive Dilantin Extended 100 mg capsule RxNorm: 575719 Capsule(s) PO UD -Alternate 300 mg for two days in a row and then 400 mg for one day and repeat cycle 10/04/2017 10/12/2017 Inactive Augmentin 500 mg-125 mg tablet RxNorm: 459019 1 Tablet(s) PO TID 07/15/2017 07/14/2017 Inactive Augmentin 500 mg-125 mg tablet RxNorm: 228985 1 Tablet(s) PO TID 07/15/2017 07/21/2017 Inactive Dilantin Extended 100 mg capsule RxNorm: 525921 1 Capsule(s) PO daily -Alternate 300 mg and 400 mg every other day 06/07/2017 10/03/2017 Inactive Bactrim DS 800 mg-160 mg tablet RxNorm: 647006 1 Tablet(s) PO BID 05/02/2017 05/08/2017 Inactive Dilantin Extended 100 mg capsule RxNorm: 160369 1 Capsule(s) PO daily in the afternoon and 2 Capsules PO HS- Will take an additional pill if she has a lot of jerking 04/27/2017 06/06/2017 Inactive Keflex 500 mg capsule RxNorm: 498783 1 Capsule(s) PO TID 201604/23/2017 Inactive dicyclomine 10 mg capsule RxNorm: 222325 1 Capsule(s) PO BID as needed 03/30/2017 05/28/2017 Inactive Senna with Docusate Sodium 8.6 mg-50 mg tablet RxNorm: 610370 1 Tablet(s) PO BID as needed constipation 03/02/20172017 Inactive Keflex 500 mg capsule RxNorm: 440966 1 Capsule(s) PO TID 201608/20/2016 Inactive Levaquin 500 mg tablet RxNorm: 534600 1 Tablet(s) PO daily 09/201504/22/2016 Inactive ciprofloxacin 500 mg tablet RxNorm: 397165 1 Tablet(s) PO BID 02/10/2016 02/16/2016 Inactive prednisone 10 mg tablet RxNorm: 350791 1 Tablet(s) PO as needed for pain No Start Date Active Prolia 60 mg/mL subcutaneous syringe RxNorm: 726584 1 injection SQ Q6 months No Start Date Active lamotrigine 150 mg tablet RxNorm: 472153 1 Tablet(s) PO QHS No Start Date 12/06/2017 Inactive lamotrigine 100 mg tablet RxNorm: 837354 1 Tablet(s) PO QAM No Start Date 12/06/2017 Inactive Dilantin Extended 100 mg capsule RxNorm: 363460 Capsule(s) PO TAKES FOUR CAPSULES FOR 2 DAYS, THEN THREE CAPSULES FOR 1 DAY, THEN REPEATS No Start Date 04/26/2017 Inactive Humira 20 mg/0.4 mL subcutaneous syringe kit RxNorm: 318435 1 injection SQ every 2 weeks- Prescribed [...] Observation Code Item Item Code Result Date Valproic Acid Kuc532 VALPROIC <10 ug/ml 04/24/2018 Dilantin Ord7 DILANTIN 10.6 UG/ML 04/11/2018 Culture Urine [id number] URINE CULTURE SEE NOTES 02/20/2018 Culture Urine [id number] Continued Results 02/20/2018 Urine Culture Ucult Complete >100,000 col/ml aerobic growth sent to ref lab 02/17/2018 Dilantin Ord7 DILANTIN 14.4 UG/ML 02/16/2018 Comp Metabolic Vwd098 NA 135 mEq/L 02/16/2018 Comp Metabolic Pap145 K 3.8 mEq/L 02/16/2018 Comp Metabolic Fkz944 CL 99 mEq/L 02/16/2018 Comp Metabolic Nwd251 CO2 28.0 mEq/L 02/16/2018 Comp Metabolic Dbd918 ANION GAP 12 02/16/2018 Comp Metabolic Tub396 GLUCOSE 101 mg/dL 02/16/2018 Comp Metabolic Gyq630 Creat 0.8 mg/dL 02/16/2018 Comp Metabolic Hro411 eGFR 75 ml/min/1.73m2 02/16/2018 Comp Metabolic Ial917 BUN 20 mg/dL 02/16/2018 Comp Metabolic Tsb110 B/C Ratio 25.0 Ratio 02/16/2018 Comp Metabolic Eli326 CALCIUM 8.9 mg/dL 02/16/2018 Comp Metabolic Fhw603 ALK PHOS 95 U/L 02/16/2018 Comp Metabolic Erk070 AST(SGOT) 13 U/L 02/16/2018 Comp Metabolic Cxg296 ALT(SGPT) 7 U/L 02/16/2018 Comp Metabolic Goz786 BILI T 0.4 mg/dL 02/16/2018 Comp Metabolic Slj388 ALBUMIN 3.6 g/dL 02/16/2018 Comp Metabolic Smu365 TPRO 7.2 g/dL 02/16/2018 Comp Metabolic Otc906 GLOB 3.6 g/dL 02/16/2018 Comp Metabolic Mcy452 A/G Ratio 1.0 Ratio 02/16/2018 Comp Metabolic Dhc765 Osmo 273 mOsmo 02/16/2018 Urine Culture Ucult Complete >100,000 col/ml aerobic growth sent to ref lab 11/15/2017 Comp Metabolic Icm921 NA 136 mEq/L 10/13/2017 Comp Metabolic Ahj533 K 4.0 mEq/L 10/13/2017 Comp Metabolic Vpx299 CL 98 mEq/L 10/13/2017 Comp Metabolic Whh051 CO2 28.0 mEq/L 10/13/2017 Comp Metabolic Iqx607 ANION GAP 14 10/13/2017 Comp Metabolic Edd209 GLUCOSE 94 mg/dL 10/13/2017 Comp Metabolic Rwt647 Creat 0.7 mg/dL 10/13/2017 Comp Metabolic Ocg238 eGFR 82 ml/min/1.73m2 10/13/2017 Comp Metabolic Rex208 BUN 26 mg/dL 10/13/2017 Comp Metabolic Rlt338 B/C Ratio 35.1 Ratio 10/13/2017 Comp Metabolic Vbn465 CALCIUM 9.1 mg/dL 10/13/2017 Comp Metabolic Qkc194 ALK PHOS 98 U/L 10/13/2017 Comp Metabolic Kgb702 AST(SGOT) 15 U/L 10/13/2017 Comp Metabolic Qwv954 ALT(SGPT) 8 U/L 10/13/2017 Comp Metabolic Ibq426 BILI T 0.4 mg/dL 10/13/2017 Comp Metabolic Lbb049 ALBUMIN 3.7 g/dL 10/13/2017 Comp Metabolic Umq146 TPRO 7.8 g/dL 10/13/2017 Comp Metabolic Qnv323 GLOB 4.1 g/dL 10/13/2017 Comp Metabolic Uae191 A/G Ratio 0.9 Ratio 10/13/2017 Comp Metabolic Nak913 Osmo 276 mOsmo 10/13/2017 Dilantin Ord7 DILANTIN 21.4 Result Verified By Repeat Analysis UG/ML 10/13/2017 Dilantin Ord7 DILANTIN 24.1 Result Verified By Repeat Analysis UG/ML 10/03/2017 Dilantin Ord7 DILANTIN 18.1 UG/ML 06/30/2017 Dilantin Ord7 DILANTIN 22.7 UG/ML 06/16/2017 Dilantin Ord7 DILANTIN 26.1 UG/ML 06/07/2017 Dilantin Ord7 DILANTIN 24.1 UG/ML 05/24/2017 Dilantin Ord7 DILANTIN 19.6 UG/ML 05/11/2017 Culture Urine [id number] URINE CULTURE SEE NOTES 05/06/2017 Culture Urine [id number] Continued Results 05/06/2017 Urine Culture Ucult Complete >100,000 col/ml aerobic growth sent to ref lab 05/03/2017 Dilantin Ord7 DILANTIN 12.6 UG/ML 04/27/2017 Calcium Ord79 CALCIUM 9.3 mg/dL 04/19/2017 Dilantin Ord7 DILANTIN 21.6 UG/ML 04/19/2017 Dilantin Ord7 DILANTIN 10.3 UG/ML 04/13/2017 Dilantin Ord7 DILANTIN 21.9 UG/ML 04/07/2017 Comp Metabolic Aet094 NA 137 mEq/L 03/30/2017 Comp Metabolic Kmj909 K 3.7 mEq/L 03/30/2017 Comp Metabolic Pev471 CL 98 mEq/L 03/30/2017 Comp Metabolic Ieh742 CO2 29.0 mEq/L 03/30/2017 Comp Metabolic Bsb102 ANION GAP 14 03/30/2017 Comp Metabolic Eba116 GLUCOSE 100 mg/dL 03/30/2017 Comp Metabolic Pvy364 Creat 0.9 mg/dL 03/30/2017 Comp Metabolic Alo286 eGFR 88 ml/min/1.73m2 03/30/2017 Comp Metabolic Ehb037 BUN 22 mg/dL 03/30/2017 Comp Metabolic Tbq923 B/C Ratio 24.4 Ratio 03/30/2017 Comp Metabolic Aum643 CALCIUM 9.4 mg/dL 03/30/2017 Comp Metabolic Wge271 ALK PHOS 113 U/L 03/30/2017 Comp Metabolic Osm893 AST(SGOT) 16 U/L 03/30/2017 Comp Metabolic Iru885 ALT(SGPT) 7 U/L 03/30/2017 Comp Metabolic Xkp596 BILI T 0.3 mg/dL 03/30/2017 Comp Metabolic Kjk886 ALBUMIN 3.9 g/dL 03/30/2017 Comp Metabolic Lko346 TPRO 8.0 g/dL 03/30/2017 Comp Metabolic Rjk229 GLOB 4.1 g/dL 03/30/2017 Comp Metabolic Vaj653 A/G Ratio 0.9 Ratio 03/30/2017 Comp Metabolic Zao587 Osmo 277 mOsmo 03/30/2017 Lipid Ord30 CHOL 214 mg/dL 03/30/2017 Lipid Ord30 HDL 61.0 mg/dl 03/30/2017 Lipid Ord30 TRIG 130 mg/dL 03/30/2017 Lipid Ord30 LDL 127 mg/dL 03/30/2017 Lipid Ord30 C/HDL 3.5 Ratio 03/30/2017 Dilantin Ord7 DILANTIN 32.5 UG/ML 03/30/2017 Folate Ord36 Folate 16.46 ng/mL 03/30/2017 Tsh Ord6 hTSH II 0.95 uIU/mL 03/30/2017 B12 Erk595 B12 592.00 pg/ml 03/30/2017 Cbc With Differential [...] 30.9 pg 03/30/2017 Cbc With Differential Ord2 [place]% 23.9 % 03/30/2017 Cbc With Differential Ord2 [...] 0.44 K/ul 03/30/2017 Cbc With Differential Ord2 [place] ABS# 0.3 K/ul 03/30/2017 Cbc With Differential [...] 30.3 pg 08/11/2016 Cbc With Differential Ord2 [place]% 31.7 % 08/11/2016 Cbc With Differential Ord2 [...] 0.59 K/ul 08/11/2016 Cbc With Differential Ord2 [place] ABS# 0.6 K/ul 08/11/2016 Cbc With Differential Ord2 Eos ABS# 0.0 K/ul 08/11/2016 Cbc With Differential Ord2 Baso ABS# 0.0 K/ul 08/11/2016 Dilantin Ord7 DILANTIN 17.2 UG/ML 08/11/2016 Tsh Ord6 hTSH II 0.82 uIU/mL 08/11/2016 Comp Metabolic Jqg420 NA 131 mEq/L 08/11/2016 Comp Metabolic Bdr151 K 4.1 mEq/L 08/11/2016 Comp Metabolic Psp069 CL 93 mEq/L 08/11/2016 Comp Metabolic Qgb576 CO2 29.0 mEq/L 08/11/2016 Comp Metabolic Wat080 ANION GAP 13 08/11/2016 Comp Metabolic Nas416 GLUCOSE 120 mg/dL 08/11/2016 Comp Metabolic Cbn302 Creat 0.8 mg/dL 08/11/2016 Comp Metabolic Zzd482 eGFR 101 ml/min/1.73m2 08/11/2016 Comp Metabolic Klx604 BUN 18 mg/dL 08/11/2016 Comp Metabolic Hnc807 B/C Ratio 22.5 Ratio 08/11/2016 Comp Metabolic Ano125 CALCIUM 9.5 mg/dL 08/11/2016 Comp Metabolic Htc068 ALK PHOS 104 U/L 08/11/2016 Comp Metabolic Jps556 AST(SGOT) 16 U/L 08/11/2016 Comp Metabolic Gxd917 ALT(SGPT) 8 U/L 08/11/2016 Comp Metabolic Auk302 BILI T 0.4 mg/dL 08/11/2016 Comp Metabolic Lyd740 ALBUMIN 3.8 g/dL 08/11/2016 Comp Metabolic Xbb174 TPRO 8.4 g/dL 08/11/2016 Comp Metabolic Esv754 GLOB 4.6 g/dL 08/11/2016 Comp Metabolic Wnj767 A/G Ratio 0.8 Ratio 08/11/2016 Comp Metabolic Wza229 Osmo 266 mOsmo 08/11/2016 Culture Urine [id number] URINE CULTURE SEE NOTES 04/19/2016 Culture Urine [id number] Continued Results 04/19/2016 Urine Culture Ucult Complete >100,000 col/ml aerobic growth sent to ref lab 04/17/2016 Culture Urine [id number] URINE CULTURE SEE NOTES 02/13/2016 Culture Urine [id number] Continued Results 02/13/2016 Urine Culture Ucult Complete [...] posture 04/04/2018 None Full Exam - General 1995 Musculoskeletal head and neck Overall: head atraumatic [...] Codes Date URINALYSIS NONAUTO W/O SCOPE CPT-4: 91829 02/16/2018 URINALYSIS NONAUTO W/O SCOPE CPT-4: 48351 11/14/2017 PPPS, SUBSEQ VISIT CPT -4: G0439 06/07/2017 URINALYSIS NONAUTO W/O SCOPE CPT-4: 03300 05/02/2017 URINALYSIS NONAUTO W/O SCOPE CPT-4: 51742 04/26/2017 PPPS, SUBSEQ VISIT CPT -4: G0439 06/01/2016 URINALYSIS NONAUTO W/O SCOPE CPT-4: 22439 04/16/2016 URINALYSIS NONAUTO W/O SCOPE CPT-4: 91178 02/10/2016 Vital Signs Date Vital 04/04/2018 Blood Pressure 1: 94/52 Code : 8480-6 Heart Rate 1: 120 bpm Height: 5'5" Respiratory Rate: 18 bpm SpO2: 98% Weight: 02/16/2018 Blood Pressure 1: 120/70 Code : 8480-6 BMI: 19.1 Code : 81278-2 Heart Rate 1 : 115 bpm Height: 5'5" SpO2: 97% Weight: 115 lbs 12/30/2017 Blood Pressure 1: 100/68 Code : 8480-6 BMI: 18.3 Code : 62748-6 Heart Rate 1 : 120 bpm Height: 5'5" SpO2: 94% Weight: 110 lbs 10/13/2017 Blood Pressure 1: 136/78 Code : 8480-6 BMI: 18.1 Code : 22287-4 Heart Rate 1 : 126 bpm Height: 5'5" SpO2: 96% Weight: 109 lbs 07/12/2017 Blood Pressure 1: 100/56 Code : 8480-6 BMI: 18.1 Code : 33048-3 Heart Rate 1 : 123 bpm Height: 5'5" SpO2: 99% Weight: 109 lbs 06/07/2017 Blood Pressure 1: 98/68 Code : 8480-6 BMI: 18.1 Code : 50389-0 Heart Rate 1 : 120 bpm Height: 5'5" SpO2: 99% Waist Measure (cm): 80 cm Weight: 109 lbs 05/24/2017 Blood Pressure 1: 104/62 Code : 8480-6 BMI: 18.1 Code : 23285-2 Heart Rate 1 : 121 bpm Height: 5'5" SpO2: 97% Weight: 109 lbs 04/27/2017 Blood Pressure 1: 132/84 Code : 8480-6 BMI: 17.8 Code : 61857-9 Heart Rate 1 : 129 bpm Height: 5'5" SpO2: 99% Weight: 107 lbs 04/13/2017 Blood Pressure 1: 100/66 Code : 8480-6 Heart Rate 1: 120 bpm Height: 5'5" SpO2: 99% Weight: 03/30/2017 Blood Pressure 1: 112/66 Code : 8480-6 BMI: 17.8 Code : 03733-3 Heart Rate 1 : 112 bpm Height: 5'5" SpO2: 98% Weight: 107 lbs 03/02/2017 Blood Pressure 1: 128/78 Code : 8480-6 BMI: 18.1 Code : 17580-1 Heart Rate 1 : 86 bpm Height: 5'5" SpO2: 95% Weight: 109 lbs 08/30/2016 Blood Pressure 1: 102/60 Code : 8480-6 BMI: 18.1 Code : 04367-4 Heart Rate 1 : 135 bpm Height: 5'5" SpO2: 98% Weight: 109 lbs 08/11/2016 Blood Pressure 1: 100/66 Code : 8480-6 BMI: 18.6 Code : 48658-0 Heart Rate 1 : 86 bpm Height: 5'5" SpO2: 94% Weight: 112 lbs 06/01/2016 Blood Pressure 1: 126/80 Code : 8480-6 BMI: 19.0 Code : 49610-2 Heart Rate 1 : 100 bpm Height: 5'5" SpO2: 98% Waist Measure (cm): 64 cm Weight: 114 lbs 04/16/2016 Blood Pressure 1: 124/80 Code : 8480-6 Heart Rate 1: 110 bpm SpO2: 97% 02/10/2016 Blood Pressure 1: 102/64 Code : 8480-6 BMI: 18.3 Code : 40813-4 Heart Rate 1 : 114 bpm Height: [...] Present Encounters Encounter Performer Location Codes Date ([id number]) [id number] EST. PATIENT, LEVEL III Diagnosis: Right upper quadrant abdominal rigidity[ICD10: R19.31] Diagnosis: Functional diarrhea[ICD10: K59.1] Diagnosis: Calculus of gallbladder without cholecystitis without obstruction[ ICD10: K80.20] Magali Zepeda MD, [facility] CPT-4: 65396 04/04/2018 ([id number]) 91118 EST. PATIENT, LEVEL IV Diagnosis: Other epilepsy, not intractable, without status epilepticus[ICD10: G40.802] Diagnosis: Slow transit constipation[ICD10: K59.01] Diagnosis: Dysuria[ICD10: R30.0] Diagnosis: Age-related osteoporosis without current pathological fracture[ICD10 : M81.0] Magali Zepeda MD [facility] CPT-4: 02844 2017 ([id number]) 15271 EST. PATIENT, LEVEL III Diagnosis: Slow transit constipation[ICD10: K59.01] Mishelparker Zepeda MD [facility] CPT-4: 08639 12/30/2017 ([id number]) 33804 EST. PATIENT, LEVEL IV Diagnosis: Other epilepsy, not intractable, without status epilepticus[ICD10: G40.802] Diagnosis: Slow transit constipation[ICD10: K59.01] Magali Zepeda MD [facility] CPT-4: 20861 10/13/2017 ([id number]) 02912 EST. PATIENT, LEVEL III Diagnosis: Other epilepsy, not intractable, without status epilepticus[ICD10: G40.802] Diagnosis: Dysuria[ICD10: R30.0] Diagnosis: Mixed incontinence[ICD10: N39.46] Magali Zepeda MD [facility] CPT-4: 79959 07/12/2017 ([id number]) 56773 EST. 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 PATIENT, LEVEL III Diagnosis: Other epilepsy, not intractable, without status epilepticus[ICD10: G40.802] Magali Zepeda MD [facility] CPT-4: 22199 2016 ([id number] 55005 EST. 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 PATIENT, LEVEL IV Diagnosis: Calculus of gallbladder without cholecystitis without obstruction[ ICD10: K80.20] Diagnosis: Benign paroxysmal vertigo, bilateral[ICD10: H81.13] Diagnosis: Slow transit constipation[ICD10: K59.01] Magali Zepeda MD, [facility] CPT-4: 45862 03/02/2017 ([id number]) 63291 EST. 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 PATIENT, LEVEL IV Diagnosis: Other epilepsy, not intractable, without status epilepticus[ICD10: G40.802] Diagnosis: Low back pain[ICD10: M54.5] Diagnosis: Pressure ulcer of sacral region, stage 1[ICD10: L89.151] Windy Zepeda MD, [facility] CPT-4: 83308 08/11/2016 ([id number]) 98956 EST. PATIENT, LEVEL III Diagnosis: Urinary tract infection, site not specified[ICD10: N39.0] Diagnosis: Slow transit constipation[ICD10: K59.01] [facility] CPT-4: 52779 04/16/2016 ([id number]) OFFICE VISIT, NEW - LEVEL 4 Diagnosis: Other abnormalities of gait and mobility[ICD10: R26.89] Diagnosis: Dysuria[ICD10: R30.0] Diagnosis: Rheumatoid arthritis without rheumatoid factor, multiple sites[ICD10 : M06.09] [facility] CPT-4: 61700 Plan of Care Planned Activity Notes Codes [...] of gallbladder. 04/04/2018 Appointment: [facility] ([facility] Moderate 04/04/2018 Patient Education: Patient Medication Summary Completed 04/04/2018 Patient Education: Diarrhea Completed 04/04/2018 Visit Plan: Epilepsy - chronic - continue with current regimen - check labs. Osteoporosis - pt is currently getting Prolia in [place], this is a big burden for her - They have asked for her to be set up for prolia for at the end of may at [address]- to call with specific date. Dysuria - UA - +leukocytes - start on keflex - rx sent to pharmacy. Chronic constipation - monitor symptoms. Continue with supportive care. 02/16/2018 Appointment: [facility] [phone] [facility] (15 min) Moderate 02/16/2018 Patient Education: Patient [...] regimen. 12/30/2017 Appointment: Mishel Wilson WPtel: [phone] [phone] (30 min) Complex 12/30/2017 Patient Education: Patient [...] this regimen. 10/13/2017 Appointment: Magali Zepeda WPtel: [facility] (15 min) Moderate 10/13/2017 Patient Education: Patient Medication Summary Completed 10/13/2017 Appointment: Magali Zepeda WPtel: [facility] (15 min) Moderate 10/06/2017 Appointment: Lab [...] on accident 07/12/2017 Appointment: Magali Zepeda WPtel: [facility] (15 min) Moderate 07/12/2017 Patient Education: Patient Medication Summary Completed 07/12/2017 Appointment: [facility] [phone] [facility] (15 min) Moderate 07/05/2017 Visit Plan: Medicare [...] surrogate. 06/07/2017 [facility] [phone] [facility] [facility] - Annual Wellness Visit 06/07/2017 [...] per week. 05/24/2017 Appointment: Magali Zepeda WPtel: [phone] [facility] (15 min) Moderate 05/24/2017 Patient Education: Patient Medication Summary Completed 05/24/2017 Appointment: Magali Zepeda WPtel: [facility] [place] (15 min) Moderate 05/11/2017 Visit Plan: UTI [...] a week) 04/27/2017 Appointment: Magali Zepeda WPtel: [facility] (15 min) Moderate 04/27/2017 Patient Education: [...] monitor symptoms. 04/13/2017 Appointment: Magali Zepeda WPtel[facility] [place] (15 min) Moderate 04/13/2017 Patient Education: [...] strategy. 03/30/2017 Appointment: Magali Zepeda WPtel: [phone] [facility] [place] (15 min) Moderate 03/30/2017 Patient [...] constipation. 03/02/2017 Appointment: [facility] [phone] [facility] [place] (30 min) Complex 03/02/2017 Patient Education: Patient Medication Summary Completed 03/02/2017 Visit Plan: RA and Gait abnormality -continue with current treatments - supportive care Suspect some of her movement abnormalities may be due to her lamotrigine. 08/30/2016 Appointment: [facility] [phone] [facility] [place] (30 min) Complex 08/30/2016 Patient Education: [...] discharge. 08/11/2016 Appointment: Windy Greco WPtel: [phone] [facility] (30 min) Complex 08/11/2016 Patient Education: [...] care surrogate. 06/01/2016 Appointment: [facility] [phone] [facility] [facility] - Annual Wellness Visit 06/01/2016 [...] this regimen. 04/16/2016 Appointment: Mishel Wilson WPtel: [phone] [phone] (15 min) Moderate 04/16/2016 Patient Education: Patient Medication Summary Completed 04/16/2016 Visit Plan: RA and Gait abnormality - recommended pt to have referral to physical therapy at [facility]. Suspect some of her movement abnormalities may be due to her lamotrigine. 02/10/2016 Appointment: [facility]el[facility] [phone] [facility] [facility] Patient 02/10/2016 Patient Education: Patient Medication Summary Completed 02/10/2016 Instructions Comment . Epilepsy - continue with dilantin - [...] call if symptoms do not improve. . Medicare Exam - today we discussed [...] improved on this regimen. . Epilepsy - chronic - continue with current regimen - check labs. Osteoporosis - pt is currently getting Prolia in [place], this is a big burden for her - They have asked for her to be set up for prolia for at the end of may at [address]- to call with specific date. Dysuria - UA - +leukocytes - start on keflex - rx sent to pharmacy. Chronic constipation - monitor symptoms. Continue with supportive care. . Diarrhea - with right upper quadrant [...] warmth, discharge. RECOMMEND [employer]INE: ADYAN LANG ReferralCandy, ALIGN sign release for labs from DR [...] improved on this regimen. . Epilepsy - chronic - symptoms stable - pt states that she is taking 300mg 5 days a week and 400mg two days a week (most weeks and occasionally she will have 400mg three times a week) . Epilepsy - chronic - symptoms stable [...]
--- OUTSIDE RECORDS SUMMARY | 2018-07-17 11:13 | XMS REPORT | CCD ---
Author Author Magali Zepeda Organization Magali Zepeda MD, [facility] Address [address] [place] [address] Phone Care Team Providers Care Wood Preparation Supervisor Name Role Phone PP Unavailable CCM Unavailable Summary Purpose Interface Exchange Insurance Providers Payer name Policy type / Coverage type Covered republican ID Effective Begin Date Effective End Date WPS Medicare Part B Medicare Part B [id number] 2017 Unknown [employer] [place] [employer] Medicare Part B [id number] Unknown Family history Sister Diagnosis Age At [...] Unknown Retired 02/10/[address]: 869007377 Never smoker 02/10/[address]: 811420953 Never drinks alcohol 02/10/2016 Has the patient [...] Fill Instructions lamotrigine 150 mg tablet RxNorm: 099699 TAKE 1 TABLET BY MOUTH AT BEDTIME 04/17/2018 No Stop Date Active Dilantin Extended 100 mg capsule RxNorm: 507659 TAKE 1 CAPSULE BY MOUTH THREE TIMES DAILY FOR 3 DAYS, THEN 1 CAPSULE FOUR TIMES DAILY FOR 1 DAY, THEN REPEAT CYCLE. 04/12/2018 No Stop Date Active lamotrigine 100 mg tablet RxNorm: 644363 TAKE 1 TABLET BY MOUTH IN THE MORNING 03/31/2018 No Stop Date Active dicyclomine 10 mg capsule RxNorm: 144063 TAKE ONE CAPSULE BY MOUTH TWICE DAILY NEEDED 02/20/2018 No Stop Date Active Penlac 8 % topical solution RxNorm: 316264 1 Application TOP daily clean off every 7 days and restart application process 02/16/2018 09/13/2018 Active ok to dispense generic Keflex 500 mg capsule RxNorm: 320979 1 Capsule(s) PO QID 201702/22/2018 Inactive please call patient to let her know she needs to pick up attendant rx for antibiotic Dilantin Extended 100 mg capsule RxNorm: 278041 Capsule(s) PO UD 1 cap TID x 3 days then 1 cap qid x 1 day then repeat cycle 12/15/2017 04/11/2018 Inactive give 1 month supply lamotrigine 150 mg tablet RxNorm: 365627 1 Tablet(s) PO QHS 04/05/2018 Inactive lamotrigine 100 mg tablet RxNorm: 579119 1 Tablet(s) PO QAM 03/30/2018 Inactive Levaquin 500 mg tablet RxNorm: 707324 1 Tablet(s) PO daily 12/11/2017 Inactive Keflex 500 mg capsule RxNorm: 668424 1 Capsule(s) PO TID 201711/20/2017 Inactive Keflex 500 mg capsule RxNorm: 067222 1 Capsule(s) PO TID 201711/13/2017 Inactive Dilantin Extended 100 mg capsule RxNorm: 153239 Capsule(s) PO UD m3pill/tue3 pill/ wed 4 pill/ thur 2pill/fri 3pill/sat 4pill/sun 3 pill 201712/14/2017 Inactive Dilantin Extended 100 mg capsule RxNorm: 332893 Capsule(s) PO UD -Alternate 300 mg for two days in a row and then 400 mg for one day and repeat cycle 10/04/2017 10/12/2017 Inactive Augmentin 500 mg-125 mg tablet RxNorm: 591454 1 Tablet(s) PO TID 07/15/2017 07/14/2017 Inactive Augmentin 500 mg-125 mg tablet RxNorm: 401364 1 Tablet(s) PO TID 07/15/2017 07/21/2017 Inactive Dilantin Extended 100 mg capsule RxNorm: 188791 1 Capsule(s) PO daily -Alternate 300 mg and 400 mg every other day 06/07/2017 10/03/2017 Inactive Bactrim DS 800 mg-160 mg tablet RxNorm: 320082 1 Tablet(s) PO BID 05/02/2017 05/08/2017 Inactive Dilantin Extended 100 mg capsule RxNorm: 423169 1 Capsule(s) PO daily in the afternoon and 2 Capsules PO HS- Will take an additional pill if she has a lot of jerking 04/27/2017 06/06/2017 Inactive Keflex 500 mg capsule RxNorm: 102902 1 Capsule(s) PO TID 201604/23/2017 Inactive dicyclomine 10 mg capsule RxNorm: 586429 1 Capsule(s) PO BID as needed 03/30/2017 05/28/2017 Inactive Senna with Docusate Sodium 8.6 mg-50 mg tablet RxNorm: 498357 1 Tablet(s) PO BID as needed constipation 03/02/20172017 Inactive Keflex 500 mg capsule RxNorm: 733974 1 Capsule(s) PO TID 201608/20/2016 Inactive Levaquin 500 mg tablet RxNorm: 271562 1 Tablet(s) PO daily 09/201504/22/2016 Inactive ciprofloxacin 500 mg tablet RxNorm: 913918 1 Tablet(s) PO BID 02/10/2016 02/16/2016 Inactive prednisone 10 mg tablet RxNorm: 707173 1 Tablet(s) PO as needed for pain No Start Date Active Prolia 60 mg/mL subcutaneous syringe RxNorm: 696280 1 injection SQ Q6 months No Start Date Active lamotrigine 150 mg tablet RxNorm: 307917 1 Tablet(s) PO QHS No Start Date 12/06/2017 Inactive lamotrigine 100 mg tablet RxNorm: 135576 1 Tablet(s) PO QAM No Start Date 12/06/2017 Inactive Dilantin Extended 100 mg capsule RxNorm: 048060 Capsule(s) PO TAKES FOUR CAPSULES FOR 2 DAYS, THEN THREE CAPSULES FOR 1 DAY, THEN REPEATS No Start Date 04/26/2017 Inactive Humira 20 mg/0.4 mL subcutaneous syringe kit RxNorm: 526773 1 injection SQ every 2 weeks- Prescribed [...] Ord7 DILANTIN 10.6 UG/ML 04/11/2018 Culture Urine [id number] URINE CULTURE SEE NOTES 02/20/2018 Culture Urine [id number] Continued Results 02/20/2018 Urine Culture Ucult Complete >100,000 col/ml aerobic growth sent to ref lab 02/17/2018 Dilantin Ord7 DILANTIN 14.4 UG/ML 02/16/2018 Comp Metabolic Ddr569 NA 135 mEq/L 02/16/2018 Comp Metabolic Bhl206 K 3.8 mEq/L 02/16/2018 Comp Metabolic Dni853 CL 99 mEq/L 02/16/2018 Comp Metabolic Bji114 CO2 28.0 mEq/L 02/16/2018 Comp Metabolic Wuo037 ANION GAP 12 02/16/2018 Comp Metabolic Xtx419 GLUCOSE 101 mg/dL 02/16/2018 Comp Metabolic Wlg824 Creat 0.8 mg/dL 02/16/2018 Comp Metabolic Ykg288 eGFR 75 ml/min/1.73m2 02/16/2018 Comp Metabolic Ovs947 BUN 20 mg/dL 02/16/2018 Comp Metabolic Yhb471 B/C Ratio 25.0 Ratio 02/16/2018 Comp Metabolic Mlc537 CALCIUM 8.9 mg/dL 02/16/2018 Comp Metabolic Qoo646 ALK PHOS 95 U/L 02/16/2018 Comp Metabolic Dem317 AST(SGOT) 13 U/L 02/16/2018 Comp Metabolic Pmf430 ALT(SGPT) 7 U/L 02/16/2018 Comp Metabolic Dxt900 BILI T 0.4 mg/dL 02/16/2018 Comp Metabolic Jgc809 ALBUMIN 3.6 g/dL 02/16/2018 Comp Metabolic Bsp853 TPRO 7.2 g/dL 02/16/2018 Comp Metabolic Zmj897 GLOB 3.6 g/dL 02/16/2018 Comp Metabolic Beb592 A/G Ratio 1.0 Ratio 02/16/2018 Comp Metabolic Ynq094 Osmo 273 mOsmo 02/16/2018 Urine Culture Ucult Complete >100,000 col/ml aerobic growth sent to ref lab 11/15/2017 Comp Metabolic Bna872 NA 136 mEq/L 10/13/2017 Comp Metabolic Use071 K 4.0 mEq/L 10/13/2017 Comp Metabolic Ohu114 CL 98 mEq/L 10/13/2017 Comp Metabolic Tar264 CO2 28.0 mEq/L 10/13/2017 Comp Metabolic Uth556 ANION GAP 14 10/13/2017 Comp Metabolic Yap723 GLUCOSE 94 mg/dL 10/13/2017 Comp Metabolic Zlz556 Creat 0.7 mg/dL 10/13/2017 Comp Metabolic Opq833 eGFR 82 ml/min/1.73m2 10/13/2017 Comp Metabolic Edu825 BUN 26 mg/dL 10/13/2017 Comp Metabolic Srv176 B/C Ratio 35.1 Ratio 10/13/2017 Comp Metabolic Chx611 CALCIUM 9.1 mg/dL 10/13/2017 Comp Metabolic Vco992 ALK PHOS 98 U/L 10/13/2017 Comp Metabolic Psz775 AST(SGOT) 15 U/L 10/13/2017 Comp Metabolic Igv264 ALT(SGPT) 8 U/L 10/13/2017 Comp Metabolic Jah065 BILI T 0.4 mg/dL 10/13/2017 Comp Metabolic Zcx570 ALBUMIN 3.7 g/dL 10/13/2017 Comp Metabolic Opj476 TPRO 7.8 g/dL 10/13/2017 Comp Metabolic Jjs278 GLOB 4.1 g/dL 10/13/2017 Comp Metabolic Wsa996 A/G Ratio 0.9 Ratio 10/13/2017 Comp Metabolic Mmp016 Osmo 276 mOsmo 10/13/2017 Dilantin Ord7 DILANTIN 21.4 Result Verified By Repeat Analysis UG/ML 10/13/2017 Dilantin Ord7 DILANTIN 24.1 Result Verified By Repeat Analysis UG/ML 10/03/2017 Dilantin Ord7 DILANTIN 18.1 UG/ML 06/30/2017 Dilantin Ord7 DILANTIN 22.7 UG/ML 06/16/2017 Dilantin Ord7 DILANTIN 26.1 UG/ML 06/07/2017 Dilantin Ord7 DILANTIN 24.1 UG/ML 05/24/2017 Dilantin Ord7 DILANTIN 19.6 UG/ML 05/11/2017 Culture Urine [id number] URINE CULTURE SEE NOTES 05/06/2017 Culture Urine [id number] Continued Results 05/06/2017 Urine Culture Ucult Complete >100,000 col/ml aerobic growth sent to ref lab 05/03/2017 Dilantin Ord7 DILANTIN 12.6 UG/ML 04/27/2017 Calcium Ord79 CALCIUM 9.3 mg/dL 04/19/2017 Dilantin Ord7 DILANTIN 21.6 UG/ML 04/19/2017 Dilantin Ord7 DILANTIN 10.3 UG/ML 04/13/2017 Dilantin Ord7 DILANTIN 21.9 UG/ML 04/07/2017 Comp Metabolic Sjb765 NA 137 mEq/L 03/30/2017 Comp Metabolic Qee458 K 3.7 mEq/L 03/30/2017 Comp Metabolic Sqr831 CL 98 mEq/L 03/30/2017 Comp Metabolic Goa932 CO2 29.0 mEq/L 03/30/2017 Comp Metabolic Rqo235 ANION GAP 14 03/30/2017 Comp Metabolic Sju857 GLUCOSE 100 mg/dL 03/30/2017 Comp Metabolic Ylw022 Creat 0.9 mg/dL 03/30/2017 Comp Metabolic Rqw168 eGFR 88 ml/min/1.73m2 03/30/2017 Comp Metabolic Iih426 BUN 22 mg/dL 03/30/2017 Comp Metabolic Gun669 B/C Ratio 24.4 Ratio 03/30/2017 Comp Metabolic Vyk038 CALCIUM 9.4 mg/dL 03/30/2017 Comp Metabolic Nlx125 ALK PHOS 113 U/L 03/30/2017 Comp Metabolic Iba089 AST(SGOT) 16 U/L 03/30/2017 Comp Metabolic Ked772 ALT(SGPT) 7 U/L 03/30/2017 Comp Metabolic Rgq150 BILI T 0.3 mg/dL 03/30/2017 Comp Metabolic Zyy706 ALBUMIN 3.9 g/dL 03/30/2017 Comp Metabolic Lgj335 TPRO 8.0 g/dL 03/30/2017 Comp Metabolic Lzz121 GLOB 4.1 g/dL 03/30/2017 Comp Metabolic Aip175 A/G Ratio 0.9 Ratio 03/30/2017 Comp Metabolic Syy603 Osmo 277 mOsmo 03/30/2017 Lipid Ord30 CHOL 214 mg/dL 03/30/2017 Lipid Ord30 HDL 61.0 mg/dl 03/30/2017 Lipid Ord30 TRIG 130 mg/dL 03/30/2017 Lipid Ord30 LDL 127 mg/dL 03/30/2017 Lipid Ord30 C/HDL 3.5 Ratio 03/30/2017 Dilantin Ord7 DILANTIN 32.5 UG/ML 03/30/2017 Folate Ord36 Folate 16.46 ng/mL 03/30/2017 Tsh Ord6 hTSH II 0.95 uIU/mL 03/30/2017 B12 Ccd922 B12 592.00 pg/ml 03/30/2017 Cbc With Differential [...] 30.9 pg 03/30/2017 Cbc With Differential Ord2 [place]% 23.9 % 03/30/2017 Cbc With Differential Ord2 [...] 0.44 K/ul 03/30/2017 Cbc With Differential Ord2 [place] ABS# 0.3 K/ul 03/30/2017 Cbc With Differential [...] 30.3 pg 08/11/2016 Cbc With Differential Ord2 [place]% 31.7 % 08/11/2016 Cbc With Differential Ord2 [...] 0.59 K/ul 08/11/2016 Cbc With Differential Ord2 [place] ABS# 0.6 K/ul 08/11/2016 Cbc With Differential Ord2 Eos ABS# 0.0 K/ul 08/11/2016 Cbc With Differential Ord2 Baso ABS# 0.0 K/ul 08/11/2016 Dilantin Ord7 DILANTIN 17.2 UG/ML 08/11/2016 Tsh Ord6 hTSH II 0.82 uIU/mL 08/11/2016 Comp Metabolic Byb118 NA 131 mEq/L 08/11/2016 Comp Metabolic Yrc246 K 4.1 mEq/L 08/11/2016 Comp Metabolic Rui269 CL 93 mEq/L 08/11/2016 Comp Metabolic Iui353 CO2 29.0 mEq/L 08/11/2016 Comp Metabolic Ysh111 ANION GAP 13 08/11/2016 Comp Metabolic Eas202 GLUCOSE 120 mg/dL 08/11/2016 Comp Metabolic Mhf925 Creat 0.8 mg/dL 08/11/2016 Comp Metabolic Cnn867 eGFR 101 ml/min/1.73m2 08/11/2016 Comp Metabolic Xki710 BUN 18 mg/dL 08/11/2016 Comp Metabolic Nod154 B/C Ratio 22.5 Ratio 08/11/2016 Comp Metabolic Fpf108 CALCIUM 9.5 mg/dL 08/11/2016 Comp Metabolic Qnp956 ALK PHOS 104 U/L 08/11/2016 Comp Metabolic Jii755 AST(SGOT) 16 U/L 08/11/2016 Comp Metabolic Vxw582 ALT(SGPT) 8 U/L 08/11/2016 Comp Metabolic Vtv480 BILI T 0.4 mg/dL 08/11/2016 Comp Metabolic Jnl594 ALBUMIN 3.8 g/dL 08/11/2016 Comp Metabolic Wvr767 TPRO 8.4 g/dL 08/11/2016 Comp Metabolic Mvk991 GLOB 4.6 g/dL 08/11/2016 Comp Metabolic Eou857 A/G Ratio 0.8 Ratio 08/11/2016 Comp Metabolic Geg854 Osmo 266 mOsmo 08/11/2016 Culture Urine [id number] URINE CULTURE SEE NOTES 04/19/2016 Culture Urine [id number] Continued Results 04/19/2016 Urine Culture Ucult Complete >100,000 col/ml aerobic growth sent to ref lab 04/17/2016 Culture Urine [id number] URINE CULTURE SEE NOTES 02/13/2016 Culture Urine [id number] Continued Results 02/13/2016 Urine Culture Ucult Complete [...] Codes Date URINALYSIS NONAUTO W/O SCOPE CPT-4: 10372 02/16/2018 URINALYSIS NONAUTO W/O SCOPE CPT-4: 90398 11/14/2017 PPPS, SUBSEQ VISIT CPT -4: G0439 06/07/2017 URINALYSIS NONAUTO W/O SCOPE CPT-4: 43937 05/02/2017 URINALYSIS NONAUTO W/O SCOPE CPT-4: 97870 04/26/2017 PPPS, SUBSEQ VISIT CPT -4: G0439 06/01/2016 URINALYSIS NONAUTO W/O SCOPE CPT-4: 25692 04/16/2016 URINALYSIS NONAUTO W/O SCOPE CPT-4: 80342 02/10/2016 Vital Signs Date Vital 04/04/2018 Blood Pressure 1: 94/52 Code : 8480-6 Heart Rate 1: 120 bpm Height: 5'5" Respiratory Rate: 18 bpm SpO2: 98% Weight: 02/16/2018 Blood Pressure 1: 120/70 Code : 8480-6 BMI: 19.1 Code : 56544-7 Heart Rate 1 : 115 bpm Height: 5'5" SpO2: 97% Weight: 115 lbs 12/30/2017 Blood Pressure 1: 100/68 Code : 8480-6 BMI: 18.3 Code : 01805-5 Heart Rate 1 : 120 bpm Height: 5'5" SpO2: 94% Weight: 110 lbs 10/13/2017 Blood Pressure 1: 136/78 Code : 8480-6 BMI: 18.1 Code : 01698-5 Heart Rate 1 : 126 bpm Height: 5'5" SpO2: 96% Weight: 109 lbs 07/12/2017 Blood Pressure 1: 100/56 Code : 8480-6 BMI: 18.1 Code : 28227-6 Heart Rate 1 : 123 bpm Height: 5'5" SpO2: 99% Weight: 109 lbs 06/07/2017 Blood Pressure 1: 98/68 Code : 8480-6 BMI: 18.1 Code : 02863-2 Heart Rate 1 : 120 bpm Height: 5'5" SpO2: 99% Waist Measure (cm): 80 cm Weight: 109 lbs 05/24/2017 Blood Pressure 1: 104/62 Code : 8480-6 BMI: 18.1 Code : 28523-0 Heart Rate 1 : 121 bpm Height: 5'5" SpO2: 97% Weight: 109 lbs 04/27/2017 Blood Pressure 1: 132/84 Code : 8480-6 BMI: 17.8 Code : 71889-5 Heart Rate 1 : 129 bpm Height: 5'5" SpO2: 99% Weight: 107 lbs 04/13/2017 Blood Pressure 1: 100/66 Code : 8480-6 Heart Rate 1: 120 bpm Height: 5'5" SpO2: 99% Weight: 03/30/2017 Blood Pressure 1: 112/66 Code : 8480-6 BMI: 17.8 Code : 50318-4 Heart Rate 1 : 112 bpm Height: 5'5" SpO2: 98% Weight: 107 lbs 03/02/2017 Blood Pressure 1: 128/78 Code : 8480-6 BMI: 18.1 Code : 24404-8 Heart Rate 1 : 86 bpm Height: 5'5" SpO2: 95% Weight: 109 lbs 08/30/2016 Blood Pressure 1: 102/60 Code : 8480-6 BMI: 18.1 Code : 45729-8 Heart Rate 1 : 135 bpm Height: 5'5" SpO2: 98% Weight: 109 lbs 08/11/2016 Blood Pressure 1: 100/66 Code : 8480-6 BMI: 18.6 Code : 30983-1 Heart Rate 1 : 86 bpm Height: 5'5" SpO2: 94% Weight: 112 lbs 06/01/2016 Blood Pressure 1: 126/80 Code : 8480-6 BMI: 19.0 Code : 50609-0 Heart Rate 1 : 100 bpm Height: 5'5" SpO2: 98% Waist Measure (cm): 64 cm Weight: 114 lbs 04/16/2016 Blood Pressure 1: 124/80 Code : 8480-6 Heart Rate 1: 110 bpm SpO2: 97% 02/10/2016 Blood Pressure 1: 102/64 Code : 8480-6 BMI: 18.3 Code : 04155-5 Heart Rate 1 : 114 bpm Height: [...] Present Encounters Encounter Performer Location Codes Date ([id number]) [id number] EST. PATIENT, LEVEL III Diagnosis: Right upper quadrant abdominal rigidity[ICD10: R19.31] Diagnosis: Functional diarrhea[ICD10: K59.1] Diagnosis: Calculus of gallbladder without cholecystitis without obstruction[ ICD10: K80.20] Magali Zepeda MD, [facility] CPT-4: 60847 04/04/2018 ([id number]) [id number] EST. PATIENT, LEVEL IV Diagnosis: Other epilepsy, not intractable, without status epilepticus[ICD10: G40.802] Diagnosis: Slow transit constipation[ICD10: K59.01] Diagnosis: Dysuria[ICD10: R30.0] Diagnosis: Age-related osteoporosis without current pathological fracture[ICD10 : M81.0] Magali Zepeda MD, [facility] CPT-4: 25760 2017 ([id number]) 84745 EST. PATIENT, LEVEL III Diagnosis: Slow transit constipation[ICD10: K59.01] Mishel Zepeda MD, [facility] CPT-4: 99157 12/30/2017 ([id number]) 34328 EST. PATIENT, LEVEL IV Diagnosis: Other epilepsy, not intractable, without status epilepticus[ICD10: G40.802] Diagnosis: Slow transit constipation[ICD10: K59.01] Magali Zepeda MD, [facility] CPT-4: 30059 10/13/2017 ([id number]) 44628 EST. PATIENT, LEVEL III Diagnosis: Other epilepsy, not intractable, without status epilepticus[ICD10: G40.802] Diagnosis: Dysuria[ICD10: R30.0] Diagnosis: Mixed incontinence[ICD10: N39.46] Magali Zepeda MD, [facility] CPT-4: 37129 07/12/2017 ([id number]) [id number] EST. 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 PATIENT, LEVEL III Diagnosis: Other epilepsy, not intractable, without status epilepticus[ICD10: G40.802] Magali Zepeda MD, [facility] CPT-4: 87189 2016 ([id number]) 81768 EST. 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 PATIENT, LEVEL IV Diagnosis: Calculus of gallbladder without cholecystitis without obstruction[ ICD10: K80.20] Diagnosis: Benign paroxysmal vertigo, bilateral[ICD10: H81.13] Diagnosis: Slow transit constipation[ICD10: K59.01] Magali Zepeda MD, [facility] CPT-4: 94514 03/02/2017 [id number]) 90241 EST. 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 PATIENT, LEVEL IV Diagnosis: Other epilepsy, not intractable, without status epilepticus[ICD10: G40.802] Diagnosis: Low back pain[ICD10: M54.5] Diagnosis: Pressure ulcer of sacral region, stage 1[ICD10: L89.151] Windy Zepeda MD, [facility] CPT-4: 95102 08/11/2016 [id number]) 40844 EST. PATIENT, LEVEL III Diagnosis: Urinary tract infection, site not specified[ICD10: N39.0] Diagnosis: Slow transit constipation[ICD10: K59.01] [facility] CPT-4: 97532 04/16/2016 ([id number]) OFFICE VISIT, NEW - LEVEL 4 Diagnosis: Other abnormalities of gait and mobility[ICD10: R26.89] Diagnosis: Dysuria[ICD10: R30.0] Diagnosis: Rheumatoid arthritis without rheumatoid factor, multiple sites[ICD10 : M06.09] [facility] CPT-4: 41031 Plan of Care Planned Activity Notes Codes [...] oversight post-operatively. 04/04/2018 Appointment: Magali Zepeda WPtel: [facility] [place] (15 min) Moderate 04/04/2018 Patient Education: Patient Medication Summary Completed 04/04/2018 Patient Education: Diarrhea Completed 04/04/2018 Visit Plan: Epilepsy - chronic - continue with current regimen - check labs. Osteoporosis - pt is currently getting Prolia in [place], this is a big burden for her - They have asked for her to be set up for prolia for at the end of may at [address]- to call with specific date. Dysuria - UA - +leukocytes - start on keflex - rx sent to pharmacy. Chronic constipation - monitor symptoms. Continue with supportive care. 02/16/2018 Appointment: [facility]eda [facility]el[facility] [phone] [facility] (15 min) Moderate 02/16/2018 Patient Education: Patient [...] regimen. 12/30/2017 Appointment: Mishel Wilson WPtel: [phone] [phone] [place] (30 min) Complex 12/30/2017 Patient Education: [...] regimen. 10/13/2017 Appointment: Magali Zepeda WPtel[facility] [phone] [facility] [place] (15 min) Moderate 10/13/2017 Patient Education: Patient Medication Summary Completed 10/13/2017 Appointment: Mag[facility]epeda [facility]Ptel[facility] [phone] [facility] [place] (15 min) Moderate 10/06/2017 Appointment: Lab [...] accident 07/12/2017 Appointment: Magali [facility]epeda WPtel: [phone] [facility] [place] (15 min) Moderate 07/12/2017 Patient Education: Patient Medication Summary Completed 07/12/2017 Appointment: Mag[facility]epeda [facility]Ptel[facility] [phone] [facility] (15 min) Moderate 07/05/2017 Visit Plan: [...] care surrogate. 06/07/2017 App[facility]ment[facility] [address] [facility] [facility] - Annual Wellness Visit 06/07/2017 [...] Zepeda WPtel: [facility] [place] (15 min) Moderate 05/24/2017 Patient Education: Patient Medication Summary Completed 05/24/2017 Appointment: Magali Zepeda WPtel: [facility] [place] (15 min) Moderate 05/11/2017 Visit Plan: UTI [...] WPtel: [facility] [place] (15 min) Moderate 04/27/2017 Patient Education: Patient [...] monitor symptoms. 04/13/2017 Appointment: Magali Zepeda WPtel: [facility] [place] (15 min) Moderate 04/13/2017 Patient Education: Patient [...] treatment strategy. 03/30/2017 Appointment: Magali Zepeda WPtel: [phone] [facility] [place] (15 min) Moderate 03/30/2017 Patient Education: [...] constipation. 03/02/2017 Appointment: [facility]epeda [facility]Ptel[facility] [phone] [facility] [place] (30 min) Complex 03/02/2017 Patient Education: Patient Medication Summary Completed 03/02/2017 Visit Plan: RA and Gait abnormality -continue with current treatments - supportive care Suspect some of her movement abnormalities may be due to her lamotrigine. 08/30/2016 Appointment: [facility]epeda WPtel[facility] [phone] [facility] [place] (30 min) Complex 08/30/2016 Patient [...] discharge. 08/11/2016 Appointment: Windy Greco WPtel: [phone] [facility] (30 min) Complex 08/11/2016 Patient Education: Patient [...] surrogate. 06/01/2016 Appointment: [facility] [phone] [facility] [facility] - Annual Wellness Visit 06/01/2016 [...] this regimen. 04/16/2016 Appointment: Mishel Wilson WPtel: [phone] [phone] (15 min) Moderate 04/16/2016 Patient Education: Patient Medication Summary Completed 04/16/2016 Visit Plan: RA and Gait abnormality - recommended pt to have referral to physical therapy at [facility]. Suspect some of her movement abnormalities may be due to her lamotrigine. 02/10/2016 Appointment: [facility]epeda WPtel[facility] [phone] [facility] New Patient 02/10/2016 Patient Education: Patient Medication Summary Completed 02/10/2016 Instructions Comment . Diarrhea - with right upper quadrant pain - cholelithiasis - recommendation is for pt to be seen by Dr. Mcintyre - pt sent to his clinic today for work-up and plan for removal of gallbladder. RECOMMEND [facility]BIOTIC-ANY BR[facility] F[facility], ALIGN sign release for labs from DR [...] referral to physical therapy at [facility]. Suspect some of her movement abnormalities may [...] - pt is currently getting Prolia in [place], this is a big burden for her [...] therapy as well as nursing oversight post-operatively. Turn every 2 hours and use pillow [...]
[2018-07-17 11:18] LABS: ALANINE AMINOTRANSFERASE 13 U/L (0-55); ALBUMIN 3.7 GM/DL (3.2-4.5); ALKALINE PHOSPHATASE 132 U/L (40-136); BILIRUBIN,TOTAL 0.3 MG/DL (0.1-1.0); BUN/CREATININE RATIO 18; CALCIUM 8.6 MG/DL (8.5-10.1); CARBON DIOXIDE 18 MMOL/L (21-32); CHLORIDE 103 MMOL/L (98-107); CREATININE SERUM 0.83 MG/DL (0.60-1.30); GFR ESTIMATED > 60; GLUCOSE 142 MG/DL (70-105); MAGNESIUM 2.7 MG/DL (1.8-2.4); SODIUM 137 MMOL/L (135-145); TOTAL PROTEIN 8.1 GM/DL (6.4-8.2)
--- NOTE | 2018-07-17 11:20 | ED Syncope ---
General Stated Complaint: FALL Source of Information: Patient History of Present Illness Date Seen by Provider: Jul 17, 2018 Time Seen by Provider: 10:50 Initial Comments Here with report of a couple episode or seizure. Apparently he has had diarrhea for several days due to being on antibiotics for bronchitis. She was on the toilet when she passed out. She did hit the right side of her face on the cabinet bar. Unwitnessed fall. Unsure if she hit her head aside from her face. Does have history of seizure disorder and may have had seizure. reports that she was confused for at least 10 minutes after waking up which is fairly typical. Sometimes it lasts longer. EMS was summoned and did note patient's blood pressure was normal to high but heart rate was also high in the 130s. Blood sugar in the 150s. Timing/Prior Episodes: Single Episode Today Symptoms Prior to Episode: Confusion, Lightheadedness, Nausea Current Symptoms: No Chest Pain, No Diaphoresis; Dizziness, Nausea, Weakness Allergies and Home Medications Allergies Coded Allergies: No Known Drug Allergies (Unverified , 04/10/18) Home Medications Acetaminophen 500 Mg Tablet, 500 MG PO Q4H PRN for PAIN-MILD, (Reported) Denosumab 60 Mg/1 Ml Disp.syrin, 60 MG SQ Q 6 MONTHS, (Reported) Lamotrigine 100 Mg Tablet, 100 MG PO DAILY, (Reported) Lamotrigine 150 Mg Tablet, 150 MG PO HS, (Reported) Meclizine HCl 25 Mg Tablet, 25 MG PO TID PRN for DIZZINESS, (Reported) Pantoprazole Sodium 40 Mg Tablet.dr, 40 MG PO DAILY Prescribed by: DARIA NEVAREZ on 04/16/18 1040 Phenytoin Sodium Extended 100 Mg Capsule, PO UD, (Reported) TAKES 100MG @ 1630 AND 200MG @2100 X 3 DAYS THEN TAKES 200MG @1630 AND 200MG @2100 ON THE 4TH DAY, THEN REPEAT Patient Home Medication List Home Medication List Reviewed: Yes Review of Systems Constitutional: see HPI; No chills, No fever; malaise, weakness EENTM: mouth pain; No nose congestion Respiratory: cough; No short of breath Cardiovascular: No chest pain, No edema Gastrointestinal: No abdominal pain; diarrhea, nausea; No vomiting Genitourinary: no symptoms reported Musculoskeletal: no symptoms reported; No back pain, No neck pain Skin: change in color; No lesions Psychiatric/Neurological: Denies Headache, Denies Weakness All Other Systems Reviewed Negative Unless Noted: Yes Past Gvbbxnc-Czkrvx-Tktghl Hx Past Med/Social Hx: Reviewed Nursing Past Med/Soc Hx Patient Social History Alcohol Use: Denies Use Recreational Drug Use: No Smoking Status: Never a Smoker 2nd Hand Smoke Exposure: No Recent Hopitalizations: Yes (SEIZURE/FALL-2018) Immunizations Up To Date PED Vaccines UTD: No Seasonal Allergies Seasonal Allergies: No Past Medical History Surgeries: Yes (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; RIGHT HIP FX/REPAIR 2009) Gallbladder, 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, Neurological, Orthopedic Respiratory: No Currently Using CPAP: No Currently Using BIPAP: No Cardiac: Yes High Cholesterol Neurological: Yes (LAST SEIZURES-04/07/18) Seizure Disorder, Vertigo Reproductive Disorders: No FLOOR TECH History: 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 Sexually Transmitted Disease: No HIV/AIDS: No Genitourinary: Yes Bladder Infection, UTI-Chronic Gastrointestinal: Yes Chronic Constipation, Gall Bladder Disease Musculoskeletal: Yes Rheumatoid Arthritis Endocrine: Yes (BENIGN PITUITARY ADENOMA) HEENT: No Loss of Vision: Bilateral Cancer: No Psychosocial: No Depression Integumentary: No Blood Disorders: Yes (NEUTROPENIA--NORMAL WBC 1.0-1.5) Adverse Reaction/Blood Tranf: No (N/A) Family Medical History Reviewed Nursing Family Hx Benign neoplasm pituitary gland and craniopharyngeal duct G8 BROTHER, Onset:Unknown Completed stroke 19 FATHER, , Onset:60 years & older 19 MOTHER, , Onset:60 years & older FH: epilepsy G8 SISTER, Onset:Unknown Physical Exam Vital Signs Vital Signs - First Documented 07/17/18 10:47 Temp 97.2 Pulse 134 Resp 12 B/P (MAP) 138/86 (103) Pulse Ox 96 O2 Delivery Room Air Capillary Refill : Height, Weight, BMI Height: 5'5.00" Weight: 113lbs. 0.0oz. 51.975694dr; 18.8 BMI Method:Stated General Appearance: No Apparent Distress, WD/WN HEENT: PERRL/EOMI, Pharynx Normal, Other (abrasion to the left side of the time. Small bruise noted to the left cheek area.) Neck: Non Tender, Supple Cardiovascular: No Murmur, Tachycardia Respiratory: Lungs Clear, Normal Breath Sounds Gastrointestinal: Non Tender, Soft Back: Normal Inspection, No CVA Tenderness, No Vertebral Tenderness Extremities: Normal Range of Motion, Non Tender Neurologic/Psychiatric: Alert, Oriented x3 Cranial Nerves: Normal Hearing, Normal Speech, PERRL Motor/Sensory: No Motor Deficit, No Sensory Deficit Skin: Warm/Dry, Ecchymosis (as described above) Progress/Results/Core Measures Results/Orders Lab Results Laboratory Tests Test 07/17/18 10:52 07/17/18 11:52 Range/Units White Blood Count 2.8 L 4.3-11.0 10^3/uL Red Blood Count 4.46 4.35-5.85 10^6/uL Hemoglobin 13.4 11.5-16.0 G/DL Hematocrit 40 35-52 % Mean Corpuscular Volume 90 80-99 FL Mean Corpuscular Hemoglobin 30 25-34 PG Mean Corpuscular Hemoglobin Concent 34 32-36 G/DL Red Cell Distribution Width 12.9 10.0-14.5 % Platelet Count 157 130-400 10^3/uL Mean Platelet Volume 9.4 7.4-10.4 FL Neutrophils (%) (Auto) 20 L 42-75 % Lymphocytes (%) (Auto) 58 H 12-44 % Monocytes (%) (Auto) 15 H 0-12 % Eosinophils (%) (Auto) 6 0-10 % Basophils (%) (Auto) 1 0-10 % Neutrophils # (Auto) 0.6 L 1.8-7.8 X 10^3 Lymphocytes # (Auto) 1.6 1.0-4.0 X 10^3 Monocytes # (Auto) 0.4 0.0-1.0 X 10^3 Eosinophils # (Auto) 0.2 0.0-0.3 10^3/uL Basophils # (Auto) 0.0 0.0-0.1 10^3/uL Sodium Level 137 135-145 MMOL/L Potassium Level 4.2 3.6-5.0 MMOL/L Chloride Level 103 98-107 MMOL/L Carbon Dioxide Level 18 L 21-32 MMOL/L Anion Gap 16 H 5-14 MMOL/L Blood Urea Nitrogen 15 7-18 MG/DL Creatinine 0.83 0.60-1.30 MG/DL Estimat Glomerular Filtration Rate > 60 BUN/Creatinine Ratio 18 Glucose Level 142 H 70-105 MG/DL Calcium Level 8.6 8.5-10.1 MG/DL Corrected Calcium 8.8 8.5-10.1 MG/DL Magnesium Level 2.7 H 1.8-2.4 MG/DL Total Bilirubin 0.3 0.1-1.0 MG/DL Aspartate Amino Transf (AST/SGOT) 32 5-34 U/L Alanine Aminotransferase (ALT/SGPT) 13 0-55 U/L Alkaline Phosphatase 132 40-136 U/L Total Protein 8.1 6.4-8.2 GM/DL Albumin 3.7 3.2-4.5 GM/DL Urine Color YELLOW Urine Clarity CLEAR Urine pH 7 5-9 Urine Specific Brandon 1.015 L 1.016-1.022 Urine Protein 2+ H NEGATIVE Urine Glucose (UA) NEGATIVE NEGATIVE Urine Ketones NEGATIVE NEGATIVE Urine Nitrite NEGATIVE NEGATIVE Urine Bilirubin NEGATIVE NEGATIVE Urine Urobilinogen NORMAL NORMAL MG/DL Urine Leukocyte Esterase 1+ H NEGATIVE Urine RBC (Auto) 1+ H NEGATIVE Urine RBC NONE /HPF Urine WBC 25-50 H /HPF Urine Squamous Epithelial Cells RARE /HPF Urine Crystals NONE /LPF Urine Bacteria TRACE /HPF Urine Casts NONE /LPF Urine Mucus NEGATIVE /LPF Urine Culture Indicated YES My Orders Orders - JOANA WATKINS MD Ondansetron Injection (Zofran Injectio (07/17/18 10:49) Ns Iv 1000 Ml (Sodium Chloride 0.9%) (07/17/18 10:49) Cbc With Automated Diff (07/17/18 10:56) Comprehensive Metabolic Panel (07/17/18 10:56) Dilantin (Phenytoin) (07/17/18 10:56) Magnesium (07/17/18 10:56) Ua Culture If Indicated (07/17/18 10:56) Ekg Tracing (07/17/18 10:56) Monitor-Rhythm Ecg Trace Only (07/17/18 10:56) Ondansetron Injection (Zofran Injectio (07/17/18 11:00) Ns Iv 1000 Ml (Sodium Chloride 0.9%) (07/17/18 10:56) Saline Lock/Iv-Start (07/17/18 10:56) Ct Head/Cervical Spine Wo (07/17/18 10:56) Urine Culture (07/17/18 11:52) Medications Given in ED Current Medications Medications Dose Ordered Sig/Edward Route Start Time Stop Time Status Last Admin Dose Admin Ceftriaxone Sodium 1000 mg/ Sodium Chloride 50 ml @ 100 mls/hr ONCE ONCE IV 07/17/18 13:00 07/17/18 13:29 DC 07/17/18 13:01 100 MLS/HR Ondansetron HCl 4 mg ONCE ONCE IVP 07/17/18 11:00 07/17/18 11:01 DC 07/17/18 10:53 4 MG Vital Signs/I&O 07/17/18 10:47 Temp 97.2 Pulse 134 Resp 12 B/P (MAP) 138/86 (103) Pulse Ox 96 O2 Delivery Room Air Progress Progress Note : Progress Note Seen and evaluated. IV, labs, UA, EKG and normal saline 1 L bolus ordered. Zofran [address] head and neck ordered due to unwitnessed fall. Monitor patient. 1300: Overall feeling much better. Rocephin 1 g IV ordered for UTI and sinusitis. We will continue outpatient treatment with Omnicef twice a day for 6 more days. All this was discussed with patient and family who agree. 1400: Rocephin complete. Discharged home with return precautions. Patient family verbalized understanding instructions and agreement with plan. Initial ECG Impression Date: Jul 17, 2018 Initial ECG Impression Time: 10:55 Initial ECG Rate: 119 Initial ECG Rhythm: S.Tach Comment Sinus tachycardia with normal axis. No evidence of ST elevation HI. Similar to previous of 04/02/17. Interpreted by me. Diagnostic Imaging Diagonstic Imaging: CT Plain Films/CT/US/NM/MRI: c-spine, head Comments [facility], [place] NAME: MELANY STATON [facility] REC#: [id number] PT STATUS: REG ER : 1945 PHYSICIAN: JOANA WATKINS MD ADMIT DATE: 07/17/18/ER Draft Date of Exam:07/17/18 CT HEAD/CERVICAL SPINE WO PROCEDURE: CT head and CT cervical spine without contrast. TECHNIQUE: Multiple contiguous axial images were obtained through the brain and cervical spine without the use of intravenous contrast. Sagittal and coronal reformations through the cervical spine were then performed. INDICATION: Fall. History of seizures. Trauma to the head. COMPARISON: 04/02/2017. FINDINGS: CT head: The ventricles and cortical sulci are diffusely prominent, compatible with age-related volume loss. There are confluent areas of abnormal, low attenuation in the periventricular white matter. This is consistent with chronic small vessel ischemic changes. There is no midline shift or mass-effect. No acute intra-axial hemorrhage is seen. There are no abnormal areas of increased or decreased density to suggest acute hemorrhage or edema. No extra-axial masses or collections are present. The bony calvarium is intact. The visualized paranasal sinuses show opacification of the ethmoid air cells and multiple scattered air-fluid levels within the bilateral maxillary and sphenoid sinuses. The mastoid air cells are clear. CT cervical spine: Evaluation of static alignment demonstrates slight grade 1 anterolisthesis at C2-C3 and slight grade 1 retrolisthesis at C4-C5 and C5-C6. There is no evidence of jumped facets. Evaluation for acute fracture is somewhat mildly degraded secondary to motion artifact, but vertebral body heights are maintained. No bony fragments are seen within the spinal canal. No acute fracture is identified. There are moderate multilevel degenerative changes consisting of intervertebral disc height loss with anterior and posterior disc osteophyte complex formations, as well as multilevel facet arthropathy. These changes are greatest at the C3-C4 through C5-C6 levels. Pre-and paravertebral soft tissue structures are unremarkable. Note is made of bilateral calcified carotid atherosclerosis. Included portions of the lung apices are clear. IMPRESSION: 1. No acute intracranial abnormality. No CT evidence of mass, acute infarct or intracranial hemorrhage. 2. Chronic small vessel ischemic changes in deep white matter. 3. Paranasal sinus disease. Correlation for underlying acute sinusitis is recommended. 4. Mild image degradation, but no acute fracture or dislocation of cervical spine. 5. Moderate multilevel degenerative changes of the cervical spine. Dictated on workstation # [id number] Dict: 07/17/18 1200 Trans: 07/17/18 1213 [facility] [id number] Interpreted by: RD HOFFMAN MD Electronically signed by: Departure Impression Primary Impression: Sinusitis Qualified Codes: J01.90 - Acute sinusitis, unspecified Additional Impressions: Urinary tract infection Qualified Codes: N30.00 - Acute cystitis without hematuria Seizure disorder Disposition: 01 HOME, SELF-CARE Condition: Improved Departure-Patient Inst. Decision time for Depature: 14:08 Referrals: MICHAEL ZEPEDA MD (PCP/Family) Primary Care Physician Patient Instructions: Sinusitis, Adult (DC), Urinary Tract Infection, Adult (DC ) Add. Discharge Instructions: Take medications as directed. Follow-up with Dr. Zepeda later this week. Your Dilantin level is pending. Return for worse pain, fever, vomiting, weakness, breathing problems or other concerns as needed. Continue home medications as previously prescribed. Drink plenty of fluids. Scripts Cefdinir (Cefdinir) 300 Mg Capsule 300 MG PO BID, #12 CAP 0 Refills Prov: JOANA WATKINS MD 07/17/18 Copy Copies To 1: MICHAEL ZEPEDA MD, TIMOTHY D MD Jul 17, 2018 11:20
[2018-07-17 11:21] LABS: POTASSIUM 4.2 MMOL/L (3.6-5.0)
--- OUTSIDE RECORDS SUMMARY | 2018-07-17 11:23 | XMS REPORT | Continuity of Care Document ---
Author Author [facility] Organization [facility] Address Unknown Phone Unavailable Allergies Active Description Code Type Severity Reaction Onset Reported/Identified Relationship to Patient Clinical Status Yes No Known Drug Allergies [id number] Drug Allergy Unknown N/A 04/10/2018 Medications Medication [...] Sodium Extended CAPSULE 04/10/2018 ORAL 300 MG UD DIRECTED Hydrocodone/Acetaminophen 5/325mg Tablet TAB 04/12/2018 ORAL 1 TAB Q6H EVERY 6 HOURS Tylenol Extra Strength TABLET 04/14 ORAL 500 MG Q4H EVERY 4HRS Meclizine HCl TABLET 04/14/2018 ORAL 25 MG TID THREE TIMES A DAY Protonix TABLET. 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 11/26/2012 MAYANK, BOBAN N Ot 288.00 NEUTROPENIA, UNSPECIFIED 12/18/2012 JEANE NAGEL MOTOR VEHICLE REPRESENTATIVE Ot 780.4 DIZZINESS AND GIDDINESS 12/18/2012 JEANE NAGEL MOTOR VEHICLE REPRESENTATIVE Ot 780.79 OTH MALAISE FATIGUE 12/18/2012 SHONA JEANE A MOTOR VEHICLE REPRESENTATIVE Ot 783.21 LOSS OF WEIGHT 12/18/2012 JEANE NAGEL MOTOR VEHICLE REPRESENTATIVE Ot V57.1 PHYSICAL THERAPY NEC 12/18/2012 JEANE NAGEL MOTOR VEHICLE REPRESENTATIVE Ot V57.21 ENCOUNTER FOR OCCUPATIONAL THERAPY 12/18/2012 JEANE NAGEL MOTOR VEHICLE REPRESENTATIVE Ot V58.49 OTHER SPECIFIED AFTERCARE FOLLOWING SURG 04/15/2013 MAYANK, BOBAN N Ot 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 04/15/2013 MAYANK, BOBAN N Ot 288.50 LEUKOCYTOPENIA, UNSPECIFIED 04/15/2013 MAYANK, BOBAN N Ot 345.90 EPILEPSY UNSPEC W/O MENTION INTRACTABLE 04/15/2013 MAYANK, BOBAN N Ot 714.0 RHEUMATOID ARTHRITIS 04/15/2013 MAYANK, BOBAN N Ot 780.4 DIZZINESS AND GIDDINESS 04/15/2013 MAYANK, BOBAN N Ot V58.69 OTH MED,LT,CURRENT [...] 04/25/2014 MAYANK, BOBAN N Ot 273.1 04/25/2014 MAYANKANTONIA BANDA N Ot 288.00 04/25/2014 MAYANKBREANA BANDAAN N Ot 345.90 04/25/2014 ANTONIA TALLEY N Ot 714.0 04/25/2014 ANTONIA TALLEY N Ot V58.69 05/28/2014 ANTONIA TALLEY N Ot 227.3 05/28/2014 ANTONIA TALLEY N Ot 270.4 05/28/2014 ANTONIA TALLEY N Ot 273.1 05/28/2014 MAYANKANTONIA BANDA N Ot 288.00 05/28/2014 MAYANKANTONIA BANDA N Ot 345.90 05/28/2014 ANTONIA TALLEY N Ot 714.0 05/28/2014 ANTONIA TALLEY N Ot V58.69 06/19/2014 ANTONIA TALLEY N Ot 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 06/19/2014 ANTONIA TALLEY N Ot 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 06/19/2014 ANTONIA TALLEY N 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 06/19/2014 MAYANK BOBBARAK N Ot 288.00 NEUTROPENIA, UNSPECIFIED 06/19/2014 ANTONIA TALLEY N Ot 345.90 EPILEPSY UNSPEC W/O MENTION INTRACTABLE 06/19/2014 ANTONIA TALLEY N Ot 714.0 RHEUMATOID ARTHRITIS 06/19/2014 ANTONIA TALLEY N Ot V58.69 OT MED,LT,CURRENT USE 11/29/2014 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 Ot 288.00 11/29/2014 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 Ot 288.50 11/29/2014 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 Ot 564.00 11/29/2014 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 Ot 714.0 11/29/2014 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 Ot 714.1 11/29/2014 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 Ot 733.90 11/29/2014 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 Ot V58.65 11/29/2014 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 Ot V58.69 04/03/2015 ANTONIA TALLEY N Ot 227.3 04/03/2015 MAYANKANTONIA BANDA N Ot 270.4 04/03/2015 MAYANK, BOBAN N [...] BOBAN N Ot V58.69 06/03/2015 JUSTINE BULLOCK MOTOR VEHICLE REPRESENTATIVE Ot K52.9 NONINFECTIVE GASTROENTERITIS AND COLITIS 06/03/2015 JUSTINE BULLOCK MOTOR VEHICLE REPRESENTATIVE Ot 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 INTEST, PART UNSP, W/O PERF 06/03/2015 JUSTINE BULLOCK MOTOR VEHICLE REPRESENTATIVE Ot K80.20 CALCULUS OF GALLBLADDER W/O CHOLECYSTITI 06/18/2015 MAYANK, BOBAN N Ot 227.3 06/18/2015 MAYANK, BOBAN N Ot 270.4 06/18/2015 MAYANK, BOBAN N Ot 273.1 06/18/2015 MAYANK, BOBAN N Ot 288.00 06/18/2015 MAYANK, BOBAN N Ot 345.90 06/18/2015 MAYANK, BOBAN N Ot 714.0 06/18/2015 MAYANK, BOBAN N Ot D72.819 06/18/2015 MAYANK, BOBAN N Ot R30.0 06/18/2015 ANTONIA TALLEY Ot R39.15 06/18/2015 ANTONIA TALLEY Ot V58.69 06/18/2015 ANTONIA TALLEY Ot Z79.899 06/24/2015 BULLOCKJUSTINE WISEMAN APRN Ot R19.7 07/30/2015 ANTONIA TALLEY Ot D72.819 DECREASED WHITE BLOOD CELL COUNT, UNSPEC 07/30/2015 ANTONIA TALLEY Ot R30.0 DYSURIA 07/30/2015 ANTONIA TALLEY Ot R39.15 URGENCY OF URINATION 07/30/2015 ANTONIA TALLEY Ot Z79.899 OTHER ASSEMBLY LINE WORKER (CURRENT) DRUG THERAPY 10/31/2015 CAROLE ROSEP Ot D70.9 NEUTROPENIA, UNSPECIFIED 11/21/2015 CAROLE ROSEP Ot D70.9 NEUTROPENIA, UNSPECIFIED 11/25/2015 CAROLE ROSEP Ot D70.9 NEUTROPENIA, UNSPECIFIED 03/12/2016 MICHAEL LYNNE [...] Ot 733.00 OSTEOPOROSIS NOS 03/17/2016 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 Ot 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 03/17/2016 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 Ot 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 03/17/2016 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 Ot 288.50 LEUKOCYTOPENIA, UNSPECIFIED 03/17/2016 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 Ot 345.90 EPILEPSY UNSPEC W/O MENTION INTRACTABLE 03/17/2016 CAROLE ROSE S HEAT TREAT SUPERVISOR Ot 714.0 RHEUMATOID ARTHRITIS 03/17/2016 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 Ot 780.4 DIZZINESS AND GIDDINESS 03/17/2016 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 Ot V58.69 OTH MED,LT,CURRENT USE 03/17/2016 MAYANKANTONIA BANDA N Ot 574.10 CHOLELITH W CHOLECYS NEC 03/17/2016 ANTONIA TALLEY N Ot 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 03/17/2016 LILAINE CUEVAS, ANDREI Mendez Ot V76.12 OTH SCREEN MAMMO-MALIGN NEOPLASM OF DANNY 03/17/2016 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 Ot 288.00 NEUTROPENIA, UNSPECIFIED 03/17/2016 CAROLE ROSE S HEAT TREAT SUPERVISOR Ot 288.50 LEUKOCYTOPENIA, UNSPECIFIED 03/17/2016 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 Ot 574.10 CHOLELITH W CHOLECYS NEC 03/17/2016 CAROLE ROSE S HEAT TREAT SUPERVISOR Ot 714.0 RHEUMATOID ARTHRITIS 03/17/2016 CAROLE ROSE S HEAT TREAT SUPERVISOR Ot 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 03/17/2016 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 Ot V58.69 OTH MED,LT,CURRENT USE 03/17/2016 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 Ot 288.00 NEUTROPENIA, UNSPECIFIED 03/17/2016 CAROLE ROSE S HEAT TREAT SUPERVISOR Ot 288.50 LEUKOCYTOPENIA, UNSPECIFIED 03/17/2016 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 Ot 564.00 UNSPEC CONSTIPATION 03/17/2016 CAROLE ROSE S HEAT TREAT SUPERVISOR Ot 714.0 RHEUMATOID ARTHRITIS 03/17/2016 CAROLE ROSE S HEAT TREAT SUPERVISOR Ot 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 03/17/2016 CAROLE ROSE S HEAT TREAT SUPERVISOR Ot 733.90 BONE CARTILAGE DIS NOS 03/17/2016 CAROLE ROSE S HEAT TREAT SUPERVISOR Ot V58.65 LONG-TERM(CURRENT)USE OF STEROIDS 03/17/2016 CAROLE ROSE S HEAT TREAT SUPERVISOR Ot V58.69 OTH MED,LT,CURRENT USE 03/17/2016 DANNIE CUEVAS, BRIANNA Rajput Ot G40.909 EPILEPSY, UNSP, NOT INTRACTABLE, WITHOUT 03/17/2016 JUSTINE BULLOCK MOTOR VEHICLE REPRESENTATIVE Ot R19.7 DIARRHEA, UNSPECIFIED 03/17/2016 ANTONIA TALLEY N Ot 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 03/17/2016 ANTONIA TALLEY N Ot 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 03/17/2016 ANTONIA TALLEY N 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 03/17/2016 ANTONIA TALLEY N Ot 288.00 NEUTROPENIA, UNSPECIFIED 03/17/2016 ANTONIA TALLEY N Ot 345.90 EPILEPSY UNSPEC W/O MENTION INTRACTABLE 03/17/2016 ANTONIA TALLEY N Ot 714.0 RHEUMATOID ARTHRITIS 03/17/2016 ANTONIA TALLEY N Ot D72.819 DECREASED WHITE BLOOD CELL COUNT, UNSPEC 03/17/2016 NATONIA TALLEY N Ot R30.0 DYSURIA 03/17/2016 ANTONIA TALLEY N Ot R39.15 URGENCY OF URINATION 03/17/2016 ANTONIA TALLEY N Ot V58.69 OT MED,LT,CURRENT USE 03/17/2016 ANTONIA TALLEY N Ot Z79.899 OTHER ASSEMBLY LINE WORKER (CURRENT) DRUG THERAPY 03/17/2016 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 Ot D70.9 NEUTROPENIA, UNSPECIFIED 03/17/2016 MICHAEL LYNNE [...] OF GAIT AND MO 09/09/2016 JAMIE CASAREZ MOTOR VEHICLE REPRESENTATIVE Ot M54.5 LOW BACK PAIN 09/10/2016 JAMIE CASAREZ MOTOR VEHICLE REPRESENTATIVE Ot M54.5 LOW BACK PAIN 10/31/2016 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 Ot D70.9 NEUTROPENIA, UNSPECIFIED 10/31/2016 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 Ot D70.9 NEUTROPENIA, UNSPECIFIED 10/31/2016 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 Ot D70.9 NEUTROPENIA, UNSPECIFIED 11/05/2016 MAYANKBREANABARAK Eugene Ot 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 11/05/2016 MAYANKANTONIA Ot 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 11/05/2016 MAYANKANTONIA N 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 11/05/2016 ANTONIA TALLEY N Ot 288.00 NEUTROPENIA, UNSPECIFIED 11/05/2016 MAYANKANTONIA N Ot 345.90 EPILEPSY UNSPEC W/O MENTION INTRACTABLE 11/05/2016 MAYANKANTONIA N Ot 714.0 RHEUMATOID ARTHRITIS 11/05/2016 MAYANKANTONIA BANDA N Ot D72.819 DECREASED WHITE BLOOD CELL COUNT, UNSPEC 11/05/2016 MAYANKANTONIA BANDA Ot R30.0 DYSURIA 11/05/2016 ANTONIA TALLEY N Ot R39.15 URGENCY OF URINATION 11/05/2016 ANTONIA TALLEY Ot V58.69 OTH MED,LT,CURRENT USE 11/05/2016 MAYANK ANTONIA N Ot Z79.899 OTHER ASSEMBLY LINE WORKER (CURRENT) DRUG THERAPY 12/10/2016 MAYANK BREANABARAK N Ot D35.2 BENIGN NEOPLASM OF PITUITARY GLAND 12/10/2016 MAYANKANTONIA N Ot D64.9 ANEMIA, UNSPECIFIED 12/10/2016 MAYANKANTNOIA N Ot D72.819 DECREASED WHITE BLOOD CELL COUNT, UNSPEC 12/10/2016 MAYANKANTONIA N Ot 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 12/10/2016 ANTONIA TALLEY N Ot M06.9 RHEUMATOID ARTHRITIS, UNSPECIFIED 12/10/2016 MAYANKANTONIA N Ot R56.9 UNSPECIFIED CONVULSIONS 12/10/2016 MAYANKANTONIA N Ot Z79.899 OTHER SENIOR CARE (CURRENT) DRUG THERAPY 12/21/2016 MAYANKANTONIA BANDA N Ot D35.2 BENIGN NEOPLASM OF PITUITARY GLAND 12/21/2016 MAYANKANTONIA N Ot D64.9 ANEMIA, UNSPECIFIED 12/21/2016 MAYANKANTONIA N Ot D72.819 DECREASED WHITE BLOOD CELL COUNT, UNSPEC 12/21/2016 MAYANKANTONIA BANDA N Ot 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 12/21/2016 MAYANK, BOBAN N Ot M06.9 RHEUMATOID ARTHRITIS, UNSPECIFIED 12/21/2016 MAYANK, BOBAN N Ot R56.9 UNSPECIFIED CONVULSIONS 12/21/2016 MAYANK, BOBAN N Ot Z79.899 OTHER ASSEMBLY LINE WORKER (CURRENT) DRUG THERAPY 01/21/2017 MAYANK, BOBAN N Ot D35.2 BENIGN NEOPLASM OF PITUITARY GLAND 01/21/2017 MAYANK, BOBAN N Ot D64.9 ANEMIA, UNSPECIFIED 01/21/2017 MAYANK, BOBAN N Ot D72.819 DECREASED WHITE BLOOD CELL COUNT, UNSPEC 01/21/2017 MAYANK, BOBAN N Ot 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 01/21/2017 MAYANK, BOBAN N Ot M06.9 RHEUMATOID ARTHRITIS, UNSPECIFIED 01/21/2017 MAYANK, BOBAN N Ot R56.9 UNSPECIFIED CONVULSIONS 01/21/2017 MAYANK, BOBAN N Ot Z79.899 OTHER SENIOR CARE (CURRENT) DRUG THERAPY 02/02/2017 MAYANK, BOBAN N Ot D35.2 BENIGN NEOPLASM OF PITUITARY GLAND 02/02/2017 MAYANK, BOBAN N Ot D64.9 ANEMIA, UNSPECIFIED 02/02/2017 MAYANK, BOBAN N Ot D72.819 DECREASED WHITE BLOOD CELL COUNT, UNSPEC 02/02/2017 MAYANK, BOBAN N Ot 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 02/02/2017 MAYANK, BOBAN N Ot M06.9 RHEUMATOID ARTHRITIS, UNSPECIFIED 02/02/2017 MAYANK, BOBAN N Ot R56.9 UNSPECIFIED CONVULSIONS 02/02/2017 MAYANK, BOBAN N Ot Z79.899 OTHER SENIOR CARE (CURRENT) DRUG THERAPY 02/08/2017 MAYANK, BOBAN N Ot D35.2 BENIGN NEOPLASM OF PITUITARY GLAND 02/08/2017 MAYANK, BOBAN N Ot D64.9 ANEMIA, UNSPECIFIED 02/08/2017 MAYANK, BOBAN N Ot D72.819 DECREASED WHITE BLOOD CELL COUNT, UNSPEC 02/08/2017 MAYANK, BOBAN N Ot 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 02/08/2017 MAYANK, BOBAN N Ot M06.9 RHEUMATOID ARTHRITIS, UNSPECIFIED 02/08/2017 MAYANK, BOBAN N Ot R56.9 UNSPECIFIED CONVULSIONS 02/08/2017 MAYANK, BOBAN N Ot Z79.899 OTHER SENIOR CARE (CURRENT) DRUG THERAPY 03/04/2017 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 03/04/2017 Ot 714.0 RHEUMATOID ARTHRITIS 03/04/2017 Ot 733.00 OSTEOPOROSIS NOS 03/04/2017 CAROLE ROSEP Ot 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 03/04/2017 CAROLE ROSEP Ot 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 03/04/2017 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 Ot 288.50 LEUKOCYTOPENIA, UNSPECIFIED 03/04/2017 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 Ot 345.90 EPILEPSY UNSPEC W/O MENTION INTRACTABLE 03/04/2017 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 Ot 714.0 RHEUMATOID ARTHRITIS 03/04/2017 CAROLE ROSEP Ot 780.4 DIZZINESS AND GIDDINESS 03/04/2017 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 Ot V58.69 OTH MED,LT,CURRENT USE 03/04/2017 ANTONIA TALLEY Ot 574.10 CHOLELITH W CHOLECYS NEC 03/04/2017 ANTONIA TALLEY Ot 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 03/04/2017 LILIANE CUEVAS, ANDREI F Ot V76.12 OTH SCREEN MAMMO-MALIGN NEOPLASM OF DANNY 03/04/2017 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 Ot 288.00 NEUTROPENIA, UNSPECIFIED 03/04/2017 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 Ot 288.50 LEUKOCYTOPENIA, UNSPECIFIED 03/04/2017 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 Ot 574.10 CHOLELITH W CHOLECYS NEC 03/04/2017 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 Ot 714.0 RHEUMATOID ARTHRITIS 03/04/2017 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 Ot 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 03/04/2017 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 Ot V58.69 OTH MED,LT,CURRENT USE 03/04/2017 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 Ot 288.00 NEUTROPENIA, UNSPECIFIED 03/04/2017 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 Ot 288.50 LEUKOCYTOPENIA, UNSPECIFIED 03/04/2017 CAROLE ROSEP Ot 564.00 UNSPEC CONSTIPATION 03/04/2017 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 Ot 714.0 RHEUMATOID ARTHRITIS 03/04/2017 ROSE CAROLE Torres HEAT TREAT SUPERVISOR Ot 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 03/04/2017 ROSECAROLE Torres HEAT TREAT SUPERVISOR Ot 733.90 BONE CARTILAGE DIS NOS 03/04/2017 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 Ot V58.65 LONG-TERM(CURRENT)USE OF STEROIDS 03/04/2017 ROSECAROLE HEAT TREAT SUPERVISOR Ot V58.69 OTH MED,LT,CURRENT USE 03/04/2017 BRIANNA PANDEY MD Ot G40.909 EPILEPSY, UNSP, NOT INTRACTABLE, WITHOUT 03/04/2017 JUSTINE BULLOCK MOTOR VEHICLE REPRESENTATIVE Ot R19.7 DIARRHEA, UNSPECIFIED 03/04/2017 CAROLE ROSE Brian HEAT TREAT SUPERVISOR Ot D70.9 NEUTROPENIA, UNSPECIFIED 03/04/2017 JAMIE CASAREZ MOTOR VEHICLE REPRESENTATIVE Ot M54.5 LOW BACK PAIN 03/04/2017 ANTONIA TALLEY Ot D35.2 BENIGN NEOPLASM OF PITUITARY GLAND 03/04/2017 ANTONIA TALLEY Ot D64.9 ANEMIA, UNSPECIFIED 03/04/2017 ANTONIA TALLEY Ot D72.819 DECREASED WHITE BLOOD CELL COUNT, UNSPEC 03/04/2017 ANTONIA TALLEY Ot 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 03/04/2017 ANTONIA TALLEY Ot M06.9 RHEUMATOID ARTHRITIS, UNSPECIFIED 03/04/2017 ANTONIA TALLEY Ot R56.9 UNSPECIFIED CONVULSIONS 03/04/2017 ANTONIA TALLEY Ot Z79.899 OTHER SENIOR CARE (CURRENT) DRUG THERAPY 03/15/2017 GUERA CUEVAS, MICHAEL Hendrix Ot R42 DIZZINESS AND GIDDINESS 03/15/2017 MICHAEL [...] W/O MYELOPATHY OR RADICULOPA 04/05/2017 MICHAEL LYNNE MD, Ot M50.31 OTHER CERVICAL DISC DEGENERATION, HIGH 04/05/2017 MICHAEL LYNNE MD Ot S00.512A ABRASION OF ORAL CAVITY, INITIAL ENCOUNT 04/05/2017 MICHAEL LYNNE MD Ot S00.83XA CONTUSION OF OTHER PART OF HEAD, INITIAL 04/05/2017 MICHAEL LYNNE MD Ot W01.0XXA FALL SAME LEV FROM SLIP/TRIP W/O STRIKE 04/05/2017 MICHAEL LYNNE MD Ot Y92.012 BATHROOM OF SINGLE-FAMILY (PRIVATE) [facility] 04/05/2017 MICHAEL LYNNE MD Ot Y99.8 OTHER EXTERNAL CAUSE STATUS 04/05/2017 MICHAEL LYNNE MD Ot Z79.890 HORMONE REPLACEMENT THERAPY 04/05/2017 MICHAEL LYNNE MD Ot Z79.899 OTHER ASSEMBLY LINE WORKER (CURRENT) DRUG THERAPY 04/05/2017 MICHAEL LYNNE MD Ot Z86.79 PERSONAL HISTORY OF OTHER DISEASES OF TH 04/12/2017 MICHAEL LYNNE MD Ot E78.00 PURE HYPERCHOLESTEROLEMIA, UNSPECIFIED 04/12/2017 MICHAEL LYNNE MD Ot G40.909 EPILEPSY, UNSP, NOT INTRACTABLE, WITHOUT 04/12/2017 MICHAEL LYNNE MD Ot J44.9 CHRONIC OBSTRUCTIVE PULMONARY DISEASE, U 04/12/2017 MICHAEL LYNNE MD, Ot M47.812 SPONDYLOSIS W/O MYELOPATHY OR RADICULOPA 04/12/2017 MICHAEL LYNNE MD, Ot M50.31 OTHER CERVICAL DISC DEGENERATION, HIGH 04/12/2017 MICHAEL LYNNE MD, Ot S00.512A ABRASION OF ORAL CAVITY, INITIAL ENCOUNT 04/12/2017 MICHAEL LYNNE MD Ot S00.83XA CONTUSION OF OTHER PART OF HEAD, INITIAL 04/12/2017 MICHAEL LYNNE MD Ot W01.0XXA FALL SAME LEV FROM SLIP/TRIP W/O STRIKE 04/12/2017 MICHAEL LYNNE MD Ot Y92.012 BATHROOM OF SINGLE-FAMILY (PRIVATE) [facility] 04/12/2017 MICHAEL LYNNE MD Ot Y99.8 OTHER EXTERNAL CAUSE STATUS 04/12/2017 MICHAEL LYNNE MD Ot Z79.890 HORMONE REPLACEMENT THERAPY 04/12/2017 MICHAEL LYNNE MD Ot Z79.899 OTHER ASSEMBLY LINE WORKER (CURRENT) DRUG THERAPY 04/12/2017 MICHAEL LYNNE MD Ot Z86.79 PERSONAL HISTORY OF OTHER DISEASES OF TH 05/03/2017 MICHAEL LYNNE MD Ot R42 DIZZINESS AND GIDDINESS 05/03/2017 MICHAEL LYNNE MD Ot R53.1 WEAKNESS 05/20/2017 JAMIE CASAREZ MOTOR VEHICLE REPRESENTATIVE Ot R42 DIZZINESS AND GIDDINESS 05/20/2017 JAMIE CASAREZ MOTOR VEHICLE REPRESENTATIVE Ot R53.1 WEAKNESS 07/11/2017 JAMIE CASAREZ MOTOR VEHICLE REPRESENTATIVE Ot R42 DIZZINESS AND GIDDINESS 07/11/2017 JAMIE CASAREZ MOTOR VEHICLE REPRESENTATIVE Ot R53.1 WEAKNESS 07/12/2017 JAMIE CASAREZ MOTOR VEHICLE REPRESENTATIVE Ot R42 DIZZINESS AND GIDDINESS 07/12/2017 JAMIE CASAREZ MOTOR VEHICLE REPRESENTATIVE Ot R53.1 WEAKNESS 08/04/2017 JAMIE CASAREZ MOTOR VEHICLE REPRESENTATIVE Ot R42 DIZZINESS AND GIDDINESS 08/04/2017 JAMIE CASAREZ MOTOR VEHICLE REPRESENTATIVE Ot R53.1 WEAKNESS 08/08/2017 JAMIE CASAREZ MOTOR VEHICLE REPRESENTATIVE Ot R42 DIZZINESS AND GIDDINESS 08/08/2017 JAMIE CASAREZ MOTOR VEHICLE REPRESENTATIVE Ot R53.1 WEAKNESS 12/02/2017 ANTONIA TALLEY N Ot D35.2 BENIGN NEOPLASM OF PITUITARY GLAND 12/02/2017 ANTONIA TALLEY N Ot D64.9 ANEMIA, UNSPECIFIED 12/02/2017 MAYANKANTONIA BANDA N Ot D72.819 DECREASED WHITE BLOOD CELL COUNT, UNSPEC 12/02/2017 MAYANKBREANA BANDAAN N Ot 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 12/02/2017 ANTONIA TALLEY N Ot M06.9 RHEUMATOID ARTHRITIS, UNSPECIFIED 12/02/2017 MAYANKANTONIA BANDA N Ot R56.9 UNSPECIFIED CONVULSIONS 12/02/2017 MAYANKANTONIA BANDA N Ot Z79.899 OTHER ASSEMBLY LINE WORKER (CURRENT) DRUG THERAPY 12/06/2017 MAYANKANTONIA BANDA N Ot D35.2 BENIGN NEOPLASM OF PITUITARY GLAND 12/06/2017 MAYANK, BOBAN N Ot D64.9 ANEMIA, UNSPECIFIED 12/06/2017 MAYANK, BREANAAN N Ot D72.819 DECREASED WHITE BLOOD CELL COUNT, UNSPEC 12/06/2017 MAYANKANTONIA N Ot 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 12/06/2017 MAYANKANTONIA N Ot M06.9 RHEUMATOID ARTHRITIS, UNSPECIFIED 12/06/2017 MAYANK, ANTONIA N Ot R56.9 UNSPECIFIED CONVULSIONS 12/06/2017 MAYANKANTONIA N Ot Z79.899 OTHER SENIOR CARE (CURRENT) DRUG THERAPY 02/07/2018 MAYANK, BOBAN N Ot D35.2 BENIGN NEOPLASM OF PITUITARY GLAND 02/07/2018 MAYANKANTONIA BANDA N Ot D47.2 MONOCLONAL GAMMOPATHY 02/07/2018 MAYANK BOBAN N Ot D64.9 ANEMIA, UNSPECIFIED 02/07/2018 MAYANK, BOBAN N Ot D72.819 DECREASED WHITE BLOOD CELL COUNT, UNSPEC 02/07/2018 MAYANK, ANTONIA N Ot 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 02/07/2018 MAYANKANTONAI BANDA N Ot M06.9 RHEUMATOID ARTHRITIS, UNSPECIFIED 02/07/2018 MAYANK, BOBBARAK N Ot M85.80 OTH DISRD OF BONE DENSITY AND STRUCTURE, 02/07/2018 MAYANKANTONIA BANDA N Ot R56.9 UNSPECIFIED CONVULSIONS 02/07/2018 MAYANK, BOBBARAK N Ot Z79.899 OTHER SENIOR CARE (CURRENT) DRUG THERAPY 04/07/2018 PATTI CUEVAS, CATIE Hurtado Ot Z01.818 ENCOUNTER FOR OTHER PREPROCEDURAL EXAMIN 04/10/2018 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 04/10/2018 MAYANK, BOBBARAK N Ot D35.2 BENIGN NEOPLASM OF PITUITARY GLAND 04/10/2018 MAYANK, ANTONIA N Ot D64.9 ANEMIA, UNSPECIFIED 04/10/2018 MAYANK, BOBAN N Ot D72.819 DECREASED WHITE BLOOD CELL COUNT, UNSPEC 04/10/2018 MAYANK, BOBBARAK N Ot 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 04/10/2018 MAYANK, BOBAN N Ot M06.9 RHEUMATOID ARTHRITIS, UNSPECIFIED 04/10/2018 MAYANK, BOBAN N Ot R56.9 UNSPECIFIED CONVULSIONS 04/10/2018 MAYANK, BOBAN N Ot Z79.899 OTHER SENIOR CARE (CURRENT) DRUG THERAPY 04/10/2018 PATTI CUEVAS, CATIE Hurtado Ot Z01.818 ENCOUNTER FOR OTHER PREPROCEDURAL EXAMIN 04/12/2018 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 04/12/2018 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 Ot 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 04/12/2018 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 Ot 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 04/12/2018 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 Ot 288.50 LEUKOCYTOPENIA, UNSPECIFIED 04/12/2018 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 Ot 345.90 EPILEPSY UNSPEC W/O MENTION INTRACTABLE 04/12/2018 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 Ot 714.0 RHEUMATOID ARTHRITIS 04/12/2018 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 Ot 780.4 DIZZINESS AND GIDDINESS 04/12/2018 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 Ot V58.69 OTH MED,LT,CURRENT USE 04/12/2018 ANTONIA TALLEY Ot 574.10 CHOLELITH W CHOLECYS NEC 04/12/2018 ANTONIA TALLEY Ot 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 04/12/2018 LILIANE CUEVAS, ANDREI F Ot V76.12 OTH SCREEN MAMMO-MALIGN NEOPLASM OF DANNY 04/12/2018 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 Ot 288.00 NEUTROPENIA, UNSPECIFIED 04/12/2018 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 Ot 288.50 LEUKOCYTOPENIA, UNSPECIFIED 04/12/2018 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 Ot 574.10 CHOLELITH W CHOLECYS NEC 04/12/2018 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 Ot 714.0 RHEUMATOID ARTHRITIS 04/12/2018 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 Ot 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 04/12/2018 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 Ot V58.69 OTH MED,LT,CURRENT USE 04/12/2018 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 Ot 288.00 NEUTROPENIA, UNSPECIFIED 04/12/2018 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 Ot 288.50 LEUKOCYTOPENIA, UNSPECIFIED 04/12/2018 CAROLE RSOE HEAT TREAT SUPERVISOR Ot 564.00 UNSPEC CONSTIPATION 04/12/2018 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 Ot 714.0 RHEUMATOID ARTHRITIS 04/12/2018 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 Ot 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 04/12/2018 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 Ot 733.90 BONE CARTILAGE DIS NOS 04/12/2018 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 Ot V58.65 LONG-TERM(CURRENT)USE OF STEROIDS 04/12/2018 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 Ot V58.69 OTH MED,LT,CURRENT USE 04/12/2018 DANNIE CUEVAS, BRIANNA Rajput Ot G40.909 EPILEPSY, UNSP, NOT INTRACTABLE, WITHOUT 04/12/2018 JUSTINE BULLOCK MOTOR VEHICLE REPRESENTATIVE Ot R19.7 DIARRHEA, UNSPECIFIED 04/12/2018 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 Ot D70.9 NEUTROPENIA, UNSPECIFIED 04/12/2018 JAMIE CASAREZ MOTOR VEHICLE REPRESENTATIVE Ot M54.5 LOW BACK PAIN 04/12/2018 GUERA CUEVAS, MICHAEL Hendrix Ot K80.20 CALCULUS OF GALLBLADDER W/O CHOLECYSTITI 04/12/2018 ANTONIA TALLEY Ot D35.2 BENIGN NEOPLASM OF PITUITARY GLAND 04/12/2018 ANTONIA TALLEY Ot D64.9 ANEMIA, UNSPECIFIED 04/12/2018 ANTONIA TALLEY Ot D72.819 DECREASED WHITE BLOOD CELL COUNT, UNSPEC 04/12/2018 ANTONIA TALLEY Ot 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 04/12/2018 ANTONIA TALLEY Ot M06.9 RHEUMATOID ARTHRITIS, UNSPECIFIED 04/12/2018 ANTONIA TALLEY Ot R56.9 UNSPECIFIED CONVULSIONS 04/12/2018 ANTONIA TALLEY Ot Z79.899 OTHER ASSEMBLY LINE WORKER (CURRENT) DRUG THERAPY 04/12/2018 PATTI CUEVAS, CATIE Hurtado Ot Z01.818 ENCOUNTER FOR OTHER PREPROCEDURAL EXAMIN 04/13/2018 PATTI CUEVAS, CATIE Hurtado Ot D47.2 MONOCLONAL GAMMOPATHY 04/13/2018 PATTI CUEVAS, CATIE Hurtado Ot 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 04/13/2018 PATTI CUEVAS, CATIE Hurtado Ot G40.909 EPILEPSY, UNSP, NOT INTRACTABLE, WITHOUT 04/13/2018 PATTI CUEVAS, CATIE Hurtado Ot K80.10 CALCULUS OF GALLBLADDER W CHRONIC CHOLEC 04/13/2018 PATTI CUEVAS, CATIE Hurtado Ot M06.9 RHEUMATOID ARTHRITIS, UNSPECIFIED 04/13/2018 CATIE ARMSTRONG MD, Ot M85.80 OTH DISRD OF BONE DENSITY AND STRUCTURE, 04/13/2018 CATIE ARMSTRONG MD Ot Z11.2 ENCOUNTER FOR SCREENING FOR OTHER BACTER 04/13/2018 CATIE ARMSTRONG MD, Ot Z79.899 OTHER SENIOR CARE (CURRENT) DRUG THERAPY 04/14/2018 CATIE ARMSTRONG MD, Ot D47.2 MONOCLONAL GAMMOPATHY 04/14/2018 CATIE ARMSTRONG MD Ot 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0 DEHYDRATION 04/16/2018 CATIE ARMSTRONG MD Ot E87.6 HYPOKALEMIA 04/16/2018 CATIE ARMSTRONG MD Ot F32.9 MAJOR DEPRESSIVE DISORDER, SINGLE EPISOD 04/16/2018 CATIE ARMSTRONG MD Ot G40.909 EPILEPSY, UNSP, NOT INTRACTABLE, WITHOUT 04/16/2018 CATIE ARMSTRONG MD Ot K91.0 VOMITING FOLLOWING GASTROINTESTINAL SURG 04/16/2018 CATIE ARMSTRONG MD, Ot M06.9 RHEUMATOID ARTHRITIS, UNSPECIFIED 04/16/2018 CATIE ARMSTRONG MD, Ot Z79.899 OTHER ASSEMBLY LINE WORKER (CURRENT) DRUG THERAPY Procedures There is no data. Results Test [...] or plasma phenytoin measurement (mass/volume) - 04/02/17 22: Serum or plasma phenytoin measurement (mass/volume) 8.9 [...] culture - 04/03/17 01:25 Bacterial urine culture [id number] NRG COLONY COUNT >100,000/ML NRG FTX;REPORTABLE SENSITIIVITY REPORTED AT 0914, 04-04-17 NRG FREE TEXT ENTRY 3 MIXED GRAM POSITIVE [...] automated white blood cell (WBC) differential - 04/14/18 11:14 Blood leukocytes automated count (number/volume) 2.7 10*3/uL 4.3-11.0 Blood erythrocytes automated count (number/volume) 4.20 10*6/uL 4.35-5.85 Venous blood hemoglobin measurement (mass/volume) 12.8 g/dL 11.5-16.0 Blood hematocrit (volume fraction) 37 % 35-52 Automated erythrocyte mean corpuscular volume 89 [foz_us] 80-99 Automated erythrocyte mean corpuscular hemoglobin (mass per erythrocyte) 31 pg 25-34 Automated erythrocyte mean corpuscular hemoglobin concentration measurement ( mass/volume) 34 g/dL 32-36 Automated erythrocyte distribution width ratio 12.8 % 10.0-14.5 Automated blood platelet count (count/volume) 139 10*3/uL 130-400 Automated blood platelet mean volume measurement 9.3 [foz_us] 7.4-10.4 Automated blood neutrophils/100 leukocytes 72 % 42-75 Automated blood lymphocytes/100 leukocytes 12 % 12-44 Blood monocytes/100 leukocytes 17 % 0-12 Automated blood eosinophils/100 leukocytes 0 % 0-10 Automated blood basophils/100 leukocytes 0 % 0-10 Blood neutrophils automated count (number/volume) 1.9 10*3 1.8-7.8 Blood lymphocytes automated count (number/volume) 0.3 10*3 1.0-4.0 Blood monocytes automated count (number/volume) 0.4 10*3 0.0-1.0 Automated eosinophil count 0.0 10*3/uL 0.0-0.3 Automated blood basophil count (count/volume) 0.0 10*3/uL 0.0-0.1 Comprehensive metabolic panel - 04/14/18 11:14 Serum or plasma sodium measurement (moles/volume) 140 mmol/L 135-145 Serum or plasma potassium measurement (moles/volume) 2.7 mmol/L 3.6-5.0 Serum or plasma chloride measurement (moles/volume) 95 mmol/L 98-107 Carbon dioxide 28 mmol/L 21-32 Serum or plasma anion gap determination (moles/volume) 17 mmol/L 5-14 Serum or plasma urea nitrogen measurement (mass/volume) 12 mg/dL 7-18 Serum or plasma creatinine measurement (mass/volume) 0.78 mg/dL 0.60-1.30 Serum or plasma urea nitrogen/creatinine mass ratio 15 NRG Serum or plasma creatinine measurement with calculation of estimated glomerular filtration rate > NRG Serum or plasma glucose measurement (mass/volume) 118 mg/dL 70-105 Serum or plasma calcium measurement (mass/volume) 10.0 mg/dL 8.5-10.1 Serum or plasma total bilirubin measurement (mass/volume) 0.7 mg/dL 0.1-1.0 Serum or plasma alkaline phosphatase measurement (enzymatic activity/volume) 104 U/L 40-136 Serum or plasma aspartate aminotransferase measurement (enzymatic activity/ volume) 36 U/L 5-34 Serum or plasma alanine aminotransferase measurement (enzymatic activity/volume ) 24 U/L 0-55 Serum or plasma protein measurement (mass/volume) 8.2 g/dL 6.4-8.2 Serum or plasma albumin measurement (mass/volume) 4.1 g/dL 3.2-4.5 CALCIUM CORRECTED 9.9 mg/dL 8.5-10.1 Whole blood basic metabolic panel - 04/15/18 05:51 Serum or plasma sodium measurement (moles/volume) 136 mmol/L 135-145 Serum or plasma potassium measurement (moles/volume) 3.5 mmol/L 3.6-5.0 Serum or plasma chloride measurement (moles/volume) 101 mmol/L 98-107 Carbon dioxide 25 mmol/L 21-32 Serum or plasma anion gap determination (moles/volume) 10 mmol/L 5-14 Serum or plasma urea nitrogen measurement (mass/volume) 4 mg/dL 7-18 Serum or plasma creatinine measurement (mass/volume) 0.70 mg/dL 0.60-1.30 Serum or plasma urea nitrogen/creatinine mass ratio 6 NRG Serum or plasma creatinine measurement with calculation of estimated glomerular filtration rate > NRG Serum or plasma glucose measurement (mass/volume) 120 mg/dL 70-105 Serum or plasma calcium measurement (mass/volume) 9.0 mg/dL 8.5-10.1 Encounters ACCT No. Visit Date/Time Discharge Status Pt. Type Provider Facility Loc./Unit Complaint [id number] 04/14/2018 09:45:00 04/16/2018 11:50:00 DIS Outpatient CATIE ARMSTRONG MD Via [facility] 4TH POST OP N/VOMITING [id number] 04/12/2018 09:41:00 04/13/2018 08:30:00 DIS Outpatient CATIE ARMSTRONG MD Via [facility] SDC [place]ES [id number] 04/10/2018 10:45:00 04/10/2018 23:59:59 CLS Preadmit CATIE ARMSTRONG MD Via [facility] ENDO SCREENING [id number] 04/10/2018 05:47:00 04/10/2018 13:36:00 DIS Outpatient CATIE ARMSTRONG MD [facility] PREOP [place]ES [id number] 04/06/2018 06:11:00 04/06/2018 23:59:59 CLS Outpatient CATIE ARMSTRONG MD [facility] PREOP COLONOSCOPY [id number] 02/08/2018 00:09:00 02/08/2018 23:59:59 CLS Preadmit ANTONIA TALLEY [facility] ONC [id number] 11/09/2017 09:53:00 02/07/2018 00:01:00 DIS Outpatient ANTONIA TALLEY [facility] ONC [id number] 06/17/2017 14:39:00 08/08/2017 13:59:00 DIS Outpatient JAMIE CASAREZ APRN Via [facility] REHAB VERTIGO; WEAKNESS [id number] 03/29/2017 14:31:00 05/03/2017 11:39:00 DIS Outpatient MICHAEL LYNNE MD [facility] REHAB VERTIGO;WEAKNESS [id number] 04/02/2017 22:19:00 04/05/2017 13:05:00 DIS Inpatient MICHAEL LYNNE MD [facility] 4TH SEIZURE DISORDER; HEAD/ FACIAL CONTUSIONS [id number] 03/04/2017 08:23:00 03/04/2017 23:59:59 CLS Outpatient MICHAEL LYNNE MD [facility] RAD GALLST[place]ES [id number] 11/04/2016 09:24:00 02/02/2017 00:01:00 DIS Outpatient ANTONIA TALLEY [facility] ONC [id number] 08/11/2016 14:27:00 08/11/2016 23:59:59 CLS Outpatient JAMIE CASAREZ MOTOR VEHICLE REPRESENTATIVE Via [facility] RAD LOW BACK/BUTTOCKS PAIN [id number] 04/22/2016 09:00:00 04/22/2016 12:05:00 DIS Outpatient MICHAEL LYNNE MD [facility] REHAB GAIT INSTABILITY; RA [id number] 03/11/2016 11:07:00 03/12/2016 17:00:00 DIS Outpatient MICHAEL LYNNE MD [facility] REHAB GAIT INSTABILITY; RA [id number] 10/30/2015 14:20:00 10/30/2015 23:59:59 CLS Outpatient 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 [facility] ONC [id number] 05/01/2015 09:25:00 07/30/2015 00:01:00 DIS Outpatient ANTONIA TALLEY [facility] ONC [id number] 06/04/2015 09:53:00 06/04/2015 23:59:59 CLS Outpatient JUSTINE BULLOCK MOTOR VEHICLE REPRESENTATIVE [facility] LAB DIARRHEA [id number] 06/03/2015 10:37:00 06/03/2015 14:59:00 DIS Emergency JUSTINE BULLOCK MOTOR VEHICLE REPRESENTATIVE [facility] ER DIARRHEA [id number] 05/01/2015 10:05:00 05/01/2015 23:59:59 CLS Outpatient BRIANNA PANDEY MD [facility] LAB [id number] 09/20/2014 12:42:00 09/20/2014 23:59:59 CLS Outpatient 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 [facility] ONC [id number] 03/21/2014 13:00:00 06/19/2014 00:01:00 DIS Outpatient ANTONIA TALLEY Eugene [facility] ONC [id number] 12/11/2013 14:25:00 12/11/2013 23:59:59 CLS Outpatient CAROLE ROSEP [facility] ONC [id number] 09/10/2013 10:22:00 12/09/2013 00:01:00 DIS Outpatient ANTONIA TALLEY Eugene [facility] ONC [id number] 12/04/2013 07:26:00 12/04/2013 23:59:59 CLS Outpatient ANTONIA TALLEY Eugene [facility] RAD SFLT SYNDROME [id number] 11/29/2013 10:40:00 11/29/2013 23:59:59 CLS Outpatient ANDREI MOMIN MD [facility] RAD SCREENING [id number] 05/02/2013 13:07:00 07/31/2013 00:01:00 DIS Outpatient ANTONIA TALLEY Eugene [facility] ONC [id number] 04/30/2013 14:22:00 04/30/2013 23:59:59 CLS Outpatient 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 [facility] ONC [id number] 01/15/2013 12:46:00 04/15/2013 00:01:00 DIS Outpatient ANTONIA TALLEY Eugene [facility] ONC [id number] 11/28/2012 09:00:00 12/18/2012 00:01:00 DIS Outpatient JEANE NAGEL APRN Via [facility] REHAB S/P BRAIN SURGERY [id number] 10/26/2012 11:19:00 11/26/2012 00:01:00 DIS Outpatient ANTONIA TALLEY Eugene [facility] ONC [id number] 07/14/2018 04:59:57 Document Registration [id number] 07/13/2018 04:59:56 Document Registration [id number] 07/12/2018 05:00:03 Document Registration [id number] 07/11/2018 05:00:03 Document Registration [id number] 07/10/2018 05:00:03 Document Registration [id number] 07/09/2018 05:00:02 Document Registration [id number] 07/08/2018 05:00:03 Document Registration [id number] 07/07/2018 05:00:03 Document Registration [id number] 07/06/2018 05:00:03 Document Registration [id number] 07/05/2018 05:00:02 Document Registration [id number] 07/04/2018 05:00:02 Document Registration [id number] 07/03/2018 05:00:01 Document Registration [id number] 07/02/2018 05:00:01 Document Registration [id number] 07/01/2018 05:00:00 Document Registration [id number] 06/30/2018 05:00:00 Document Registration [id number] 06/29/2018 05:00:00 Document Registration [id number] 06/28/2018 05:00:00 Document Registration [id number] 06/27/2018 04:59:59 Document Registration [id number] 06/26/2018 04:59:59 Document Registration [id number] 06/25/2018 04:59:58 Document Registration [id number] 06/24/2018 04:59:59 Document Registration [id number] 06/23/2018 04:59:59 Document Registration [id number] 06/22/2018 04:59:59 Document Registration [id number] 06/21/2018 04:59:58 Document Registration [id number] 06/20/2018 04:59:57 Document Registration [id number] 06/19/2018 04:59:58 Document Registration [id number] 06/18/2018 04:59:57 Document Registration [id number] 06/17/2018 04:59:56 Document Registration [id number] 06/16/2018 04:59:57 Document Registration [id number] 06/15/2018 04:59:56 Document Registration [id number] 06/14/2018 04:59:56 Document Registration [id number] 06/13/2018 04:59:56 Document Registration [id number] 06/12/2018 04:59:56 Document Registration [id number] 06/11/2018 04:59:56 Document Registration [id number] 06/10/2018 04:59:55 Document Registration [id number] 06/09/2018 04:59:55 Document Registration [id number] 06/08/2018 04:59:55 Document Registration [id number] 06/07/2018 04:59:54 Document Registration [id number] 06/06/2018 04:59:54 Document Registration [id number] 06/05/2018 04:59:54 Document Registration [id number] 06/04/2018 04:59:54 Document Registration [id number] 06/03/2018 04:59:53 Document Registration [id number] 06/02/2018 04:59:53 Document Registration [id number] 06/01/2018 04:59:54 Document Registration [id number] 06/01/2018 04:59:53 Document Registration [id number] 05/31/2018 04:59:53 Document Registration [id number] 05/30/2018 04:59:53 Document Registration [id number] 05/29/2018 04:59:52 Document Registration [id number] 05/28/2018 04:59:53 Document Registration [id number] 05/27/2018 04:59:53 Document Registration [id number] 05/26/2018 04:59:52 Document Registration [id number] 05/25/2018 04:59:53 Document Registration [id number] 05/24/2018 04:59:52 Document Registration [id number] 05/23/2018 04:59:51 Document Registration [id number] 05/22/2018 04:59:52 Document Registration [id number] 05/21/2018 04:59:51 Document Registration [id number] 05/20/2018 04:59:51 Document Registration [id number] 05/18/2018 04:59:50 Document Registration [id number] 05/17/2018 04:59:45 Document Registration [id number] 05/16/2018 04:59:45 Document Registration [id number] 05/15/2018 04:59:45 Document Registration [id number] 05/14/2018 04:59:45 Document Registration [id number] 05/13/2018 04:59:46 Document Registration [id number] 05/12/2018 04:59:46 Document Registration [id number] 05/11/2018 04:59:46 Document Registration [id number] 05/10/2018 04:59:47 Document Registration [id number] 05/09/2018 04:59:47 Document Registration [id number] 05/08/2018 04:59:47 Document Registration [id number] 05/07/2018 04:59:48 Document Registration [id number] 05/06/2018 04:59:48 Document Registration [id number] 05/05/2018 04:59:47 Document Registration [id number] 05/04/2018 04:59:48 Document Registration [id number] 05/03/2018 04:59:48 Document Registration [id number] 05/02/2018 04:59:49 Document Registration [id number] 05/01/2018 04:59:48 Document Registration [id number] 04/30/2018 04:59:49 Document Registration [id number] 04/29/2018 04:59:49 Document Registration [id number] 04/28/2018 04:59:50 Document Registration [id number] 04/27/2018 04:59:49 Document Registration [id number] 04/26/2018 04:59:50 Document Registration [id number] 04/25/2018 04:59:49 Document Registration [id number] 04/24/2018 04:59:50 Document Registration [id number] 04/23/2018 04:59:54 Document Registration [id number] 04/22/2018 04:59:50 Document Registration [id number] 04/20/2018 04:59:50 Document Registration [id number] 04/19/2018 04:59:50 Document Registration [id number] 04/18/2018 04:59:51 Document Registration [id number] 04/17/2018 04:59:50 Document Registration [id number] 04/16/2018 04:59:50 Document Registration [id number] 04/15/2018 04:59:51 Document Registration [id number] 04/14/2018 04:59:50 Document Registration [id number] 04/13/2018 04:59:50 Document Registration [id number] 04/12/2018 04:59:47 Document Registration [id number] 04/11/2018 04:59:47 Document Registration [id number] 04/10/2018 04:59:48 Document Registration [id number] 04/09/2018 04:59:49 Document Registration [id number] 04/08/2018 04:59:48 Document Registration [id number] 04/07/2018 04:59:48 Document Registration [id number] 04/06/2018 04:59:47 Document Registration [id number] 04/05/2018 04:59:47 Document Registration [id number] 04/04/2018 04:59:47 Document Registration [id number] 04/04/2018 04:59:46 Document Registration [id number] 04/03/2018 04:59:47 Document Registration [id number] 04/02/2018 04:59:48 Document Registration [id number] 04/01/2018 04:59:47 Document Registration [id number] 03/30/2018 04:59:48 Document Registration [id number] 03/29/2018 04:59:48 Document Registration [id number] 03/28/2018 04:59:48 Document Registration [id number] 03/26/2018 04:59:48 Document Registration [id number] 03/25/2018 04:59:48 Document Registration [id number] 03/24/2018 04:59:49 Document Registration [id number] 03/23/2018 04:59:48 Document Registration [id number] 03/22/2018 04:59:48 Document Registration [id number] 03/21/2018 04:59:48 Document Registration [id number] 03/20/2018 04:59:48 Document Registration [id number] 03/19/2018 04:59:49 Document Registration [id number] 03/18/2018 04:59:49 Document Registration [id number] 03/17/2018 04:59:49 Document Registration [id number] 03/16/2018 04:59:49 Document Registration [id number] 03/15/2018 04:59:48 Document Registration [id number] 03/14/2018 04:59:49 Document Registration [id number] 03/13/2018 04:59:48 Document Registration [id number] 03/12/2018 04:59:49 Document Registration [id number] 03/11/2018 04:59:49 Document Registration [id number] 03/10/2018 04:59:48 Document Registration [id number] 03/09/2018 04:59:50 Document Registration [id number] 03/08/2018 04:59:46 Document Registration [id number] 03/07/2018 04:59:46 Document Registration [id number] 03/06/2018 04:59:46 Document Registration [id number] 03/05/2018 04:59:51 Document Registration [id number] 03/04/2018 04:59:46 Document Registration [id number] 03/03/2018 04:59:46 Document Registration [id number] 03/02/2018 04:59:46 Document Registration [id number] 03/01/2018 04:59:46 Document Registration [id number] 02/28/2018 04:59:46 Document Registration [id number] 02/26/2018 04:59:47 Document Registration [id number] 02/25/2018 04:59:47 Document Registration [id number] 02/24/2018 04:59:47 Document Registration [id number] 02/23/2018 04:59:48 Document Registration [id number] 02/22/2018 04:59:47 Document Registration [id number] 02/20/2018 04:59:47 Document Registration [id number] 02/19/2018 04:59:47 Document Registration [id number] 02/18/2018 04:59:49 Document Registration [id number] 02/16/2018 04:59:48 Document Registration [id number] 02/15/2018 04:59:48 Document Registration [id number] 02/14/2018 04:59:49 Document Registration [id number] 02/13/2018 04:59:50 Document Registration [id number] 02/12/2018 04:59:49 Document Registration [id number] 02/11/2018 04:59:49 Document Registration [id number] 02/10/2018 04:59:49 Document Registration [id number] 02/09/2018 04:59:50 Document Registration [id number] 02/08/2018 04:59:34 Document Registration [id number] 02/07/2018 04:59:35 Document Registration [id number] 02/06/2018 04:59:34 Document Registration [id number] 02/05/2018 04:59:34 Document Registration [id number] 02/04/2018 04:59:35 Document Registration [id number] 02/03/2018 04:59:34 Document Registration [id number] 01/23/2018 04:59:45 Document Registration [id number] 01/22/2018 04:59:46 Document Registration [id number] 01/21/2018 04:59:47 Document Registration [id number] 01/20/2018 04:59:44 Document Registration [id number] 01/19/2018 04:59:49 Document Registration [id number] 01/17/2018 04:59:27 Document Registration [id number] 01/16/2018 04:59:28 Document Registration [id number] 01/15/2018 04:59:30 Document Registration [id number] 01/14/2018 04:59:30 Document Registration [id number] 01/13/2018 04:59:27 Document Registration [id number] 01/12/2018 04:59:32 Document Registration [id number] 01/11/2018 04:59:33 Document Registration [id number] 01/10/2018 04:59:34 Document Registration [id number] 01/09/2018 04:59:36 Document Registration [id number] 01/08/2018 04:59:36 Document Registration [id number] 01/07/2018 04:59:37 Document Registration [id number] 01/06/2018 04:59:38 Document Registration [id number] 01/05/2018 04:59:39 Document Registration [id number] 01/04/2018 04:59:40 Document Registration [id number] 01/03/2018 04:59:41 Document Registration [id number] 01/02/2018 04:59:42 Document Registration [id number] 01/01/2018 04:59:39 Document Registration [id number] 12/31/2017 04:59:44 Document Registration [id number] 12/30/2017 04:59:45 Document Registration [id number] 12/29/2017 04:59:46 Document Registration [id number] 12/28/2017 04:59:47 Document Registration [id number] 12/27/2017 04:59:48 Document Registration [id number] 12/26/2017 04:59:44 Document Registration [id number] 12/25/2017 04:59:48 Document Registration [id number] 12/24/2017 04:59:46 Document Registration [id number] 12/23/2017 04:59:50 Document Registration [id number] 12/22/2017 04:59:49 Document Registration [id number] 12/21/2017 04:59:34 Document Registration [id number] 12/20/2017 04:59:37 Document Registration [id number] 12/19/2017 04:59:38 Document Registration [id number] 12/18/2017 04:59:38 Document Registration [id number] 12/17/2017 04:59:35 Document Registration [id number] 12/16/2017 04:59:39 Document Registration [id number] 12/15/2017 04:59:39 Document Registration [id number] 12/14/2017 04:59:40 Document Registration [id number] 12/13/2017 04:59:39 Document Registration [id number] 12/12/2017 04:59:40 Document Registration [id number] 12/11/2017 04:59:40 Document Registration [id number] 12/10/2017 04:59:40 Document Registration [id number] 12/09/2017 04:59:41 Document Registration [id number] 12/08/2017 04:59:41 Document Registration [id number] 12/07/2017 04:59:42 Document Registration [id number] 12/06/2017 04:59:42 Document Registration [id number] 12/04/2017 04:59:42 Document Registration [id number] 12/03/2017 04:59:43 Document Registration [id number] 12/02/2017 04:59:43 Document Registration [id number] 12/01/2017 04:59:43 Document Registration [id number] 11/30/2017 04:59:43 Document Registration [id number] 11/29/2017 04:59:44 Document Registration [id number] 11/28/2017 04:59:44 Document Registration [id number] 11/27/2017 04:59:44 Document Registration [id number] 11/26/2017 04:59:44 Document Registration [id number] 11/25/2017 04:59:44 Document Registration [id number] 11/24/2017 04:59:45 Document Registration [id number] 11/23/2017 04:59:45 Document Registration [id number] 11/22/2017 04:59:46 Document Registration [id number] 11/21/2017 04:59:42 Document Registration [id number] 11/20/2017 04:59:46 Document Registration [id number] 11/19/2017 04:59:47 Document Registration [id number] 11/18/2017 04:59:46 Document Registration [id number] 11/17/2017 04:59:48 Document Registration [id number] 11/17/2017 04:59:47 Document Registration [id number] 11/16/2017 04:59:47 Document Registration [id number] 11/15/2017 04:59:48 Document Registration [id number] 11/14/2017 04:59:47 Document Registration [id number] 11/13/2017 04:59:48 Document Registration [id number] 11/12/2017 04:59:49 Document Registration [id number] 11/11/2017 04:59:48 Document Registration [id number] 11/10/2017 04:59:49 Document Registration [id number] 11/09/2017 04:59:43 Document Registration [id number] 11/08/2017 04:59:43 Document Registration [id number] 11/07/2017 04:59:43 Document Registration [id number] 11/06/2017 04:59:44 Document Registration [id number] 11/05/2017 04:59:44 Document Registration [id number] 11/04/2017 04:59:44 Document Registration [id number] 11/03/2017 04:59:45 Document Registration [id number] 11/02/2017 04:59:45 Document Registration [id number] 11/01/2017 04:59:46 Document Registration [id number] 11/01/2017 04:59:45 Document Registration [id number] 10/31/2017 04:59:45 Document Registration [id number] 10/30/2017 04:59:46 Document Registration [id number] 10/29/2017 04:59:46 Document Registration [id number] 10/28/2017 04:59:47 Document Registration [id number] 10/27/2017 04:59:47 Document Registration [id number] 10/26/2017 04:59:47 Document Registration [id number] 10/25/2017 04:59:47 Document Registration [id number] 10/24/2017 04:59:44 Document Registration [id number] 10/23/2017 04:59:48 Document Registration [id number] 10/22/2017 04:59:45 Document Registration [id number] 10/21/2017 04:59:50 Document Registration [id number] 10/20/2017 04:59:50 Document Registration [id number] 10/19/2017 04:59:43 Document Registration [id number] 10/18/2017 04:59:40 Document Registration [id number] 10/17/2017 04:59:43 Document Registration [id number] 10/16/2017 04:59:45 Document Registration [id number] 10/15/2017 04:59:45 Document Registration [id number] 10/14/2017 04:59:46 Document Registration [id number] 10/13/2017 04:59:42 Document Registration [id number] 10/12/2017 04:59:45 Document Registration [id number] 10/11/2017 04:59:46 Document Registration [id number] 10/10/2017 04:59:46 Document Registration [id number] 10/09/2017 04:59:46 Document Registration [id number] 10/08/2017 04:59:47 Document Registration [id number] 10/07/2017 04:59:47 Document Registration [id number] 10/06/2017 04:59:44 Document Registration [id number] 10/05/2017 04:59:47 Document Registration [id number] 10/04/2017 04:59:48 Document Registration [id number] 10/03/2017 04:59:48 Document Registration [id number] 10/02/2017 04:59:48 Document Registration [id number] 10/01/2017 04:59:45 Document Registration [id number] 09/30/2017 04:59:45 Document Registration [id number] 09/29/2017 04:59:49 Document Registration [id number] 09/28/2017 04:59:44 Document Registration [id number] 09/27/2017 04:59:44 Document Registration [id number] 09/26/2017 04:59:45 Document Registration [id number] 09/25/2017 04:59:45 Document Registration [id number] 09/24/2017 04:59:46 Document Registration [id number] 09/23/2017 04:59:45 Document Registration [id number] 09/22/2017 04:59:45 Document Registration [id number] 09/21/2017 04:59:46 Document Registration [id number] 09/20/2017 04:59:46 Document Registration [id number] 09/19/2017 04:59:46 Document Registration [id number] 09/18/2017 04:59:46 Document Registration [id number] 09/17/2017 04:59:47 Document Registration [id number] 09/16/2017 04:59:44 Document Registration [id number] 09/15/2017 04:59:47 Document Registration [id number] 09/14/2017 04:59:48 Document Registration [id number] 09/13/2017 04:59:45 Document Registration [id number] 09/12/2017 04:59:49 Document Registration [id number] 09/11/2017 04:59:49 Document Registration [id number] 09/10/2017 04:59:49 Document Registration [id number] 09/09/2017 04:59:46 Document Registration [id number] 09/08/2017 04:59:46 Document Registration [id number] 09/07/2017 04:59:47 Document Registration [id number] 09/06/2017 04:59:43 Document Registration [id number] 09/05/2017 04:59:46 Document Registration [id number] 09/04/2017 04:59:47 Document Registration [id number] 09/03/2017 04:59:48 Document Registration [id number] 09/02/2017 04:59:47 Document Registration [id number] 09/01/2017 04:59:44 Document Registration [id number] 08/31/2017 04:59:44 Document Registration [id number] 08/30/2017 04:59:49 Document Registration [id number] 08/30/2017 04:59:48 Document Registration [id number] 08/29/2017 04:59:45 Document Registration [id number] 08/28/2017 04:59:45 Document Registration [id number] 08/27/2017 04:59:49 Document Registration [id number] 08/26/2017 04:59:50 Document Registration [id number] 08/25/2017 04:59:46 Document Registration [id number] 08/24/2017 04:59:49 Document Registration [id number] 08/24/2017 04:59:48 Document Registration [id number] 08/23/2017 04:59:45 Document Registration [id number] 08/22/2017 04:59:46 Document Registration [id number] 08/21/2017 04:59:50 Document Registration [id number] 08/20/2017 04:59:47 Document Registration [id number] 08/19/2017 04:59:47 Document Registration [id number] 08/18/2017 04:59:51 Document Registration [id number] 08/17/2017 04:59:47 Document Registration [id number] 08/16/2017 04:59:48 Document Registration [id number] 08/15/2017 04:59:51 Document Registration [id number] 08/14/2017 04:59:48 Document Registration [id number] 08/13/2017 04:59:48 Document Registration [id number] 08/12/2017 04:59:52 Document Registration [id number] 08/11/2017 04:59:49 Document Registration [id number] 08/10/2017 04:59:54 Document Registration [id number] 08/09/2017 04:59:56 Document Registration [id number] 08/08/2017 04:59:58 Document Registration [id number] 08/07/2017 04:59:59 Document Registration [id number] 08/06/2017 05:00:01 Document Registration [id number] 08/05/2017 04:59:59 Document Registration [id number] 08/04/2017 05:00:00 Document Registration [id number] 08/03/2017 05:00:06 Document Registration [id number] 08/02/2017 05:00:04 Document Registration [id number] 08/01/2017 05:00:04 Document Registration [id number] 07/31/2017 05:00:07 Document Registration [id number] 07/30/2017 05:00:09 Document Registration [id number] 07/29/2017 05:00:04 Document Registration [id number] 07/28/2017 05:00:08 Document Registration [id number] 07/27/2017 05:00:04 Document Registration [id number] 07/26/2017 05:00:08 Document Registration [id number] 07/25/2017 05:00:07 Document Registration [id number] 07/24/2017 05:00:04 Document Registration [id number] 05:00:08 Document Registration [id number] 07/22/2017 05:00:07 Document Registration [id number] 07/21/2017 05:00:04 Document Registration [id number] 07/20/2017 05:00:04 Document Registration [id number] 07/19/2017 05:00:08 Document Registration [id number] 07/18/2017 05:00:04 Document Registration [id number] 07/17/2017 05:00:04 Document Registration [id number] 07/16/2017 05:00:07 Document Registration [id number] 07/15/2017 05:00:04 Document Registration [id number] 07/14/2017 05:00:04 Document Registration [id number] 07/13/2017 05:00:08 Document Registration [id number] 07/12/2017 05:00:06 Document Registration [id number] 07/11/2017 05:00:04 Document Registration [id number] 07/10/2017 05:00:07 Document Registration [id number] 07/09/2017 05:00:04 Document Registration [id number] 07/08/2017 05:00:08 Document Registration [id number] 07/07/2017 05:00:07 Document Registration [id number] 07/06/2017 05:00:04 Document Registration [id number] 07/05/2017 05:00:05 Document Registration [id number] 07/04/2017 05:00:07 Document Registration [id number] 07/03/2017 05:00:03 Document Registration [id number] 07/02/2017 05:00:04 Document Registration [id number] 07/01/2017 05:00:07 Document Registration [id number] 06/30/2017 05:00:04 Document Registration [id number] 06/29/2017 05:00:04 Document Registration [id number] 06/28/2017 05:00:07 Document Registration [id number] 06/27/2017 05:00:04 Document Registration [id number] 06/26/2017 05:00:04 Document Registration [id number] 06/25/2017 05:00:08 Document Registration [id number] 06/24/2017 05:00:05 Document Registration [id number] 06/23/2017 05:00:04 Document Registration [id number] 06/22/2017 05:00:08 Document Registration [id number] 06/21/2017 05:00:04 Document Registration [id number] 06/20/2017 05:00:03 Document Registration [id number] 06/19/2017 05:00:08 Document Registration [id number] 06/18/2017 05:00:08 Document Registration [id number] 06/17/2017 05:00:04 Document Registration [id number] 06/16/2017 05:00:09 Document Registration [id number] 06/15/2017 05:00:04 Document Registration [id number] 06/14/2017 05:00:04 Document Registration [id number] 06/13/2017 05:00:08 Document Registration [id number] 06/12/2017 05:00:04 Document Registration [id number] 06/11/2017 05:00:04 Document Registration [id number] 06/10/2017 05:00:07 Document Registration [id number] 06/09/2017 05:00:03 Document Registration [id number] 06/08/2017 05:00:05 Document Registration [id number] 06/07/2017 05:00:07 Document Registration [id number] 06/06/2017 05:00:04 Document Registration [id number] 06/05/2017 05:00:05 Document Registration [id number] 06/04/2017 05:00:08 Document Registration [id number] 06/03/2017 05:00:07 Document Registration [id number] 06/02/2017 05:00:09 Document Registration [id number] 06/01/2017 05:00:07 Document Registration [id number] 05/31/2017 05:00:04 Document Registration [id number] 05/30/2017 05:00:04 Document Registration [id number] 05/29/2017 05:00:08 Document Registration [id number] 05/28/2017 05:00:04 Document Registration [id number] 05/27/2017 05:00:08 Document Registration [id number] 05/26/2017 05:00:08 Document Registration [id number] 05/25/2017 05:00:03 Document Registration [id number] 05/24/2017 05:00:04 Document Registration [id number] 05/23/2017 05:00:08 Document Registration [id number] 05/22/2017 05:00:03 Document Registration [id number] 05/21/2017 05:00:05 Document Registration [id number] 05/20/2017 05:00:08 Document Registration [id number] 05/19/2017 05:00:04 Document Registration [id number] 05/18/2017 05:00:03 Document Registration [id number] 05/17/2017 05:00:08 Document Registration [id number] 05/16/2017 05:00:03 Document Registration [id number] 05/15/2017 05:00:06 Document Registration [id number] 05/14/2017 05:00:07 Document Registration [id number] 05/13/2017 05:00:08 Document Registration [id number] 05/12/2017 05:00:04 Document Registration [id number] 05/11/2017 05:00:07 Document Registration [id number] 05/10/2017 05:00:04 Document Registration [id number] 05/09/2017 05:00:03 Document Registration [id number] 05/08/2017 05:00:07 Document Registration [id number] 05/07/2017 05:00:09 Document Registration [id number] 05/06/2017 05:00:04 Document Registration [id number] 05/05/2017 05:00:07 Document Registration [id number] 05/04/2017 05:00:04 Document Registration [id number] 05/03/2017 05:00:07 Document Registration [id number] 05/02/2017 05:00:07 Document Registration [id number] 05/01/2017 05:00:04 Document Registration [id number] 04/30/2017 05:00:04 Document Registration [id number] 04/29/2017 05:00:07 Document Registration [id number] 04/28/2017 05:00:04 Document Registration [id number] 04/27/2017 05:00:04 Document Registration [id number] 04/26/2017 05:00:07 Document Registration [id number] 04/25/2017 05:00:08 Document Registration [id number] 04/24/2017 05:00:04 Document Registration [id number] 04/23/2017 05:00:07 Document Registration [id number] 04/22/2017 05:00:04 Document Registration [id number] 04/21/2017 05:00:08 Document Registration [id number] 04/20/2017 05:00:08 Document Registration [id number] 04/19/2017 05:00:03 Document Registration [id number] 04/18/2017 05:00:07 Document Registration [id number] 04/17/2017 05:00:07 Document Registration [id number] 04/16/2017 05:00:03 Document Registration [id number] 04/15/2017 05:00:04 Document Registration [id number] 04/14/2017 05:00:08 Document Registration [id number] 04/13/2017 05:00:08 Document Registration [id number] 04/12/2017 05:00:04 Document Registration [id number] 04/11/2017 05:00:07 Document Registration [id number] 04/10/2017 05:00:08 Document Registration [id number] 04/09/2017 05:00:04 Document Registration [id number] 04/08/2017 05:00:08 Document Registration [id number] 04/07/2017 05:00:05 Document Registration [id number] 03/17/2016 10:01:00 Document Registration [id number] 09/15/2011 11:51:00 Document Registration [id number] 02/01/2011 10:38:00 Document Registration [id number] 01/18/2011 11:10:00 Document Registration [id number] 01/05/2011 09:29:00 Document Registration [id number] 01/04/2011 12:32:00 Document Registration [id number] 12/31/2010 10:33:00 Document Registration [id number] 02/12/2010 00:00:00 Document Registration [id number] 04/26/2017 03:04:04 04/26/2017 23:59:59 [facility] Outpatient
--- NOTE | 2018-07-17 11:55 | NUR ---
PT GIVEN HOME MED LAMOTRIGINE. OK'D BY DR WATKINS.
[2018-07-17 11:57] LABS: BILIRUBIN,URINE NEGATIVE (NEGATIVE); CLARITY,URINE CLEAR; COLOR,URINE YELLOW; GLUCOSE, URINE (UA) NEGATIVE (NEGATIVE); KETONES,URINE NEGATIVE (NEGATIVE); LEUKOCYTE ESTERASE ,URINE 1+ (NEGATIVE); NITRITE,URINE NEGATIVE (NEGATIVE); PH,URINE 7 (5-9); PROTEIN,URINE 2+ (NEGATIVE); UROBILINOGEN,URINE NORMAL (NORMAL)
[2018-07-17 12:08] LABS: BACTERIA,URINE TRACE /HPF; SQUAMOUS EPITHELIAL CELL,UR RARE /HPF; WBC,URINE 25-50 /HPF
--- NOTE | 2018-07-17 12:13 | Diagnostic Imaging Report ---
PROCEDURE: CT head and CT cervical spine without contrast. TECHNIQUE: Multiple contiguous axial images were obtained through the brain and cervical spine without the use of intravenous contrast. Sagittal and coronal reformations through the cervical spine were then performed. INDICATION: Fall. History of seizures. Trauma to the head. COMPARISON: 04/02/2017. FINDINGS: CT head: The ventricles and cortical sulci are diffusely prominent, compatible with age-related volume loss. There are confluent areas of abnormal, low attenuation in the periventricular white matter. This is consistent with chronic small vessel ischemic changes. There is no midline shift or mass-effect. No acute intra-axial hemorrhage is seen. There are no abnormal areas of increased or decreased density to suggest acute hemorrhage or edema. No extra-axial masses or collections are present. The bony calvarium is intact. The visualized paranasal sinuses show opacification of the ethmoid air cells and multiple scattered air-fluid levels within the bilateral maxillary and sphenoid sinuses. The mastoid air cells are clear. CT cervical spine: Evaluation of static alignment demonstrates slight grade 1 anterolisthesis at C2-C3 and slight grade 1 retrolisthesis at C4-C5 and C5-C6. There is no evidence of jumped facets. Evaluation for acute fracture is somewhat mildly degraded secondary to motion artifact, but vertebral body heights are maintained. No bony fragments are seen within the spinal canal. No acute fracture is identified. There are moderate multilevel degenerative changes consisting of intervertebral disc height loss with anterior and posterior disc osteophyte complex formations, as well as multilevel facet arthropathy. These changes are greatest at the C3-C4 through C5-C6 levels. Pre-and paravertebral soft tissue structures are unremarkable. Note is made of bilateral calcified carotid atherosclerosis. Included portions of the lung apices are clear. IMPRESSION: 1. No acute intracranial abnormality. No CT evidence of mass, acute infarct or intracranial hemorrhage. 2. Chronic small vessel ischemic changes in deep white matter. 3. Paranasal sinus disease. Correlation for underlying acute sinusitis is recommended. 4. Mild image degradation, but no acute fracture or dislocation of cervical spine. 5. Moderate multilevel degenerative changes of the cervical spine. Dictated by: Dictated on workstation # [id number]
[2018-07-17] MEDS ORDERED: cefTRIAXone FOR IV USE 1,000 MG in NS (IVPB) 50 ML IV ONE (13:00)
[2018-07-17] MEDS ORDERED: CEFD300C3 PO (14:17)
[2018-07-17 14:33] VITALS: BP 149/59
== END 2018-07-17 14:33 | disposition home or self-care (01) ==
LOC: EDUNIT# 10:47 → ER 10:49
DX: J32.9 Chronic sinusitis, unspecified (principal); N39.0 Urinary tract infection, site not specified; G40.909 Epilepsy, unspecified, not intractable, without status epilepticus; E78.00 Pure hypercholesterolemia, unspecified; M06.9 Rheumatoid arthritis, unspecified; F32.9 Major depressive disorder, single episode, unspecified; Z87.19 Personal history of other diseases of the digestive system; Z87.440 Personal history of urinary (tract) infections; Z90.710 Acquired absence of both cervix and uterus; Z98.890 Other specified postprocedural states
CPT/HCPCS: 36415; 51701; 70450; 72125; 80053; 80185; 81000; 83735; 85025; 87088; 93005; 93041

== ENCOUNTER → 2018-11-13 | Outpatient (CLI) | payer MEDICARE, OTHER ==
[~2018-11-13] VITALS: Ht 165.1 cm; Wt 51.3 kg
[~2018-11-13] MED LIST changes: +CEFD300C3 PO; +DENOSUMAB 60 MG/1 ML (PROLIA) SQ SCH
[2018-11-13 10:30] VITALS: BP 92/63
== END ==
LOC: SDC 10:03
PROVIDERS: ATTEND Nurse Practitioner Family
DX: M81.0 Age-related osteoporosis without current pathological fracture (principal)
CPT/HCPCS: 96372

== ENCOUNTER 2018-12-30 21:56 | Inpatient (IN) | payer MEDICARE, OTHER ==
[~2018-12-30] VITALS: Ht 165.1 cm; Wt 48.4 kg
[~2018-12-30 21:56] MED LIST changes: -DENOSUMAB 60 MG/1 ML (PROLIA) SQ SCH
--- OUTSIDE RECORDS SUMMARY | 2018-12-30 22:01 | XMS REPORT | Clinical Summary ---
Author Author [facility] Organization [facility] Address Unknown Phone Unavailable Care Team Providers Care Filer Helper Name Role Phone PCP Unavailable Allergies Not [...]
--- OUTSIDE RECORDS SUMMARY | 2018-12-30 22:01 | XMS REPORT | Clinical Summary ---
Author Author [facility] Organization [facility] Address Unknown Phone Unavailable Care Team Providers Care Wildlife Conservationist Name Role Phone Ángel Swenson MD Unavailable Unavailable Janet Gonzalez MD Unavailable Krissy Bennett RN Unavailable Maximiliano Gonzalez MD Unavailable Araceli Ferreira APRN-MARINE DIESEL TECHNICIAN Unavailable Alexis Cesar MD Unavailable Evette Pang MD Unavailable Magali Zepeda MD PCP Source Comments Some departments are not documenting in the electronic medical record. If you d o not see the information that you expected, contact Release of Information in [facility] Health Information Management department at [phone] for further assistan ce in locating additional records.[facility] Allergies No Known Allergies Medications End [...] Used Never Smoker Smokeless Tobacco: Never Used Drinks/Week oz/Week Comments Alcohol Use No Sex Assigned at Date Recorded Not on file Industry Job Start Date Occupation Not on file Not on file Not on file Travel End Travel History Travel Start No recent travel history available. Last Filed Vital Signs Reading Time Taken Comments Vital Sign 103/73 04/03/2015 11:51 AM CDT Blood Pressure 123 04/03/2015 11:51 AM CDT Pulse 37.3 C (99.1 F) 04/09/2013 1:12 PM CDT Temperature - - Respiratory Rate 100% 09/06/2012 11:27 AM CDT Oxygen Saturation - - Inhaled Oxygen Concentration 49.9 kg (110 lb) 04/01/2016 9:39 AM CDT Weight 165.1 cm (5' 5") 04/01/2016 9:39 AM CDT Height 18.3 04/01/2016 9:39 AM CDT Body Mass Index Plan of Treatment Health Maintenance Due Date Last Done Comments HEPATITIS C SCREENING 1944 PHYSICAL (COMPREHENSIVE) 1951 EXAM DTAP/TDAP VACCINES (1 - 1962 Tdap) BREAST CANCER SCREENING 1984 COLORECTAL CANCER 1994 SCREENING SHINGLES RECOMBINANT 1994 VACCINE (1 of 2) OSTEOPOROSIS 2009 SCREENING/MONITORING PNEUMONIA (PCV13/PPSV23) 2009 VACCINES (1 of 2 - PCV13) INFLUENZA VACCINE 03/13/2019 Results Not on filefrom Last 3 Months Insurance Type Payer Benefit Subscriber ID Effective Phone Address Plan / Dates Group Medicare MEDICARE MEDICARE xxxxxxxxxx 2009-P PART A AND resent B [employer] xxxxxx-xx 2013- [employer] Present Advance Directives Patient Guide Excursion Explanation Type Date Recorded Advance 04/09/2013 10:32 AM Directive/DPOA Date Inactivated Comments Code Status Date Activated [...]
--- OUTSIDE RECORDS SUMMARY | 2018-12-30 22:04 | XMS REPORT | CCD ---
Author Author Magali Zepeda Organization Magali Zepeda MD, [facility] Address [address] [place] [address] Phone Care Team Providers Care Service Order Dispatcher Name Role Phone PP Unavailable CCM Unavailable Summary Purpose Interface Exchange Insurance Providers Payer name Policy type / Coverage type Covered libertarian ID Effective Begin Date Effective End Date WPS Medicare Part B Medicare Part B [id number] Unknown [employer] Medicare Part B [id number] Unknown Family history Sister Diagnosis Age At [...] Unknown Retired 02/10/[address]: 800788203 Never smoker 02/10/[address]: 138216947 Never drinks alcohol 02/10/2016 Has the patient ever used illegal drugs? Unknown Has never used illegal drugs 02/10/2016 Allergies, Adverse Reactions, Alerts Substance Reaction Codes Entered Date Inactivated Date Status * NO KNOWN DRUG ALLERGIES Unknown 02/10/2016 No Inactive Date Active Past Medical History Illness Codes Condition Status Onset Date Resolved Date Dysuria ICD-9: 788.1 ICD-10: R30.0 Active 02/09/2016 Unknown Essential (primary) hypertension ICD-9: 401.1 ICD-10: I10 Active 08/30/2016 Unknown Muscle weakness (generalized) ICD-9: 728.87 ICD-10: M62.81 Active 08/21/2018 Unknown Other epilepsy, not intractable, without status epilepticus ICD-9: 345.10 ICD-10: G40.802 Active 08/11/2016 Unknown Unsteadiness on feet ICD- 9: 781.2 ICD-10: R26.81 Active 04/13/2017 Unknown Generalized idiopathic epilepsy and epileptic syndromes, not intractable, with status epilepticus ICD-9: 345.3 ICD-10: G40.301 Active 08/30/2016 Unknown Cough ICD-9: 786.2 ICD-10: R05 Active 07/07/2018 Unknown Acute upper respiratory infection, unspecified ICD-9: 465.9 ICD-10: J06.9 Active 07/07/2018 Unknown Mixed incontinence ICD- 9: 788.33 ICD-10: N39.46 Active 07/12/2017 Unknown Other abnormalities of gait and mobility ICD-9: 781.2 ICD-10: R26.89 Active 02/09/2016 Unknown Calculus of gallbladder without cholecystitis without obstruction ICD-9: 574.20 ICD-10: K80.20 Active 03/02/2017 Unknown Functional diarrhea ICD- 9: 564.5 ICD-10: K59.1 Active 04/04/2018 Unknown Right upper quadrant abdominal rigidity ICD-9: 789.41 ICD-10: R19.31 Active 04/04/2018 Unknown Age-related osteoporosis without current pathological fracture ICD-9: 733.00 ICD-10: M81.0 Active 02/16/2018 Unknown Slow transit constipation ICD-9: 564.01 ICD-10: K59.01 Active 04/15/2016 Unknown Urinary tract infection, site not specified ICD-9: 599.0 ICD-10: N39.0 Active 04/15/2016 Unknown Encounter for general adult medical examination with abnormal findings ICD-9: V70.0 ICD-10: Z00.01 Active 05/31/2016 Unknown 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 ICD-10: G62.0 Active 03/30/2017 Unknown Low back pain ICD-9: 724.2 ICD-10: M54.5 Active 08/11/2016 Unknown Other specified polyneuropathies ICD-9: 356.8 ICD-10: G62.89 Active 03/30/2017 Unknown Benign paroxysmal vertigo, bilateral ICD-9: 386.11 ICD-10: H81.13 Active 03/02/2017 Unknown Rheumatoid arthritis without rheumatoid factor, multiple sites ICD-9: 714.0 ICD-10: M06.09 Active 02/09/2016 Unknown Pressure ulcer of sacral region, stage 1 ICD-9: 707.03 ICD-10: L89.151 Active 08/11/2016 Unknown Problems Condition Codes Effective Dates Condition Status Dysuria ICD-9: 788.1 ICD-10: R30.0 02/09/2016 Active Essential (primary) hypertension ICD-9: 401.1 ICD-10: I10 08/30/2016 Active Muscle weakness (generalized) ICD-9: 728.87 ICD-10: M62.81 08/21/2018 Active Other epilepsy, not intractable, without status epilepticus ICD-9: 345.10 ICD-10: G40.802 08/11/2016 Active Unsteadiness on feet ICD- 9: 781.2 ICD-10: R26.81 04/13/2017 Active Generalized idiopathic epilepsy and epileptic syndromes, not intractable, with status epilepticus ICD-9: 345.3 ICD-10: G40.301 08/30/2016 Active Cough ICD-9: 786.2 ICD-10: R05 07/07/2018 Active Acute upper respiratory infection, unspecified ICD-9: 465.9 ICD-10: J06.9 07/07/2018 Active Mixed incontinence ICD- 9: 788.33 ICD-10: N39.46 07/12/2017 Active Other abnormalities of gait and mobility ICD-9: 781.2 ICD-10: R26.89 02/09/2016 Active Calculus of gallbladder without cholecystitis without obstruction ICD-9: 574.20 ICD-10: K80.20 03/02/2017 Active Functional diarrhea ICD- 9: 564.5 ICD-10: K59.1 04/04/2018 Active Right upper quadrant abdominal rigidity ICD-9: 789.41 ICD-10: R19.31 04/04/2018 Active Age-related osteoporosis without current pathological fracture ICD-9: 733.00 ICD-10: M81.0 02/16/2018 Active Slow transit constipation ICD-9: 564.01 ICD-10: K59.01 04/15/2016 Active Urinary tract infection, site not specified ICD-9: 599.0 ICD-10: N39.0 04/15/2016 Active Encounter for general adult medical examination with abnormal findings ICD-9: V70.0 ICD-10: Z00.01 05/31/2016 Active 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 ICD-10: G62.0 03/30/2017 Active Low back pain ICD-9: 724.2 ICD-10: M54.5 08/11/2016 Active Other specified polyneuropathies ICD-9: 356.8 ICD-10: G62.89 03/30/2017 Active Benign paroxysmal vertigo, bilateral ICD-9: 386.11 ICD-10: H81.13 03/02/2017 Active Rheumatoid arthritis without rheumatoid factor, multiple sites ICD-9: 714.0 ICD-10: M06.09 02/09/2016 Active Pressure ulcer of sacral region, stage 1 ICD-9: 707.03 ICD-10: L89.151 08/11/2016 Active Medications Medication Codes Instructions Start Date Stop Date Status Fill Instructions Dilantin Extended 100 mg capsule RxNorm: 307521 Capsule(s) TAKE 1 CAP TID ON Mon/ AND 1 CAPSULE QID other days. if having symptoms of seizure activity, take an extra pill 12/27/2018 No Stop Date Active lamotrigine 100 mg tablet RxNorm: 125980 TAKE 1 TABLET BY MOUTH IN THE MORNING 12/25/2018 No Stop Date Active Vitamin D2 50,000 unit capsule RxNorm: 1593959 1 Capsule(s) PO QW 12/12/2018 03/05/2019 Active Vitamin D2 50,000 unit capsule RxNorm: 3406258 1 Capsule(s) PO QW 12/12/2018 12/11/2018 Inactive Bactrim DS 800 mg-160 mg tablet RxNorm: 512511 1 Tablet(s) PO BID 12/04/2018 12/13/2018 Inactive Bactrim DS 800 mg-160 mg tablet RxNorm: 907311 1 Tablet(s) PO BID 12/04/2018 12/03/2018 Inactive Dilantin Extended 100 mg capsule RxNorm: 111451 Capsule(s) TAKE 1 CAP TID ON Tue/Th AND 1 CAPSULE QID other days. if having symptoms of seizure activity, take an extra pill 10/17/2018 12/26/2018 Inactive lamotrigine 100 mg tablet RxNorm: 680821 TAKE 1 TABLET BY MOUTH IN THE MORNING 09/29/2018 12/24/2018 Inactive Bactrim DS 800 mg-160 mg tablet RxNorm: 272609 1 Tablet(s) PO BID 09/19/2018 09/18/2018 Inactive Bactrim DS 800 mg-160 mg tablet RxNorm: 949693 1 Tablet(s) PO BID 09/19/2018 09/25/2018 Inactive doxycycline hyclate 100 mg tablet RxNorm: 6080191 1 Tablet(s) PO BID 08/16/2018 08/15/2018 Inactive dc keflex doxycycline hyclate 100 mg tablet RxNorm: 4715936 1 Tablet(s) PO BID 08/16/2018 08/25/2018 Inactive dc keflex lamotrigine 150 mg tablet RxNorm: 599286 TAKE 1 TABLET BY MOUTH AT BEDTIME 08/14/2018 No Stop Date Active Keflex 500 mg capsule RxNorm: 504820 1 Capsule(s) PO TID and probiotic bid x7 08/14/2018 08/15/2018 Inactive Keflex 500 mg capsule RxNorm: 317641 1 Capsule(s) PO TID and probiotic bid x7 08/14/2018 08/13/2018 Inactive Zithromax Z-Escobar 250 mg tablet RxNorm: 184437 2 po on first dose and 1 daily Tablet(s) PO 07/27/2018 08/20/2018 Inactive zpack x 1 Mucinex 600 mg tablet, extended release RxNorm: 472707 1 Tablet(s) PO BID 07/27/2018 07/26/2018 Inactive Mucinex 600 mg tablet, extended release RxNorm: 349507 1 Tablet(s) PO BID 07/27/2018 08/09/2018 Inactive Dilantin Extended 100 mg capsule RxNorm: 816039 Capsule(s) TAKE 1 CAP TID ON Tue/ AND 1 CAPSULE QID other days. if having symptoms of seizure activity, take an extra pill 07/20/2018 10/16/2018 Inactive amoxicillin 500 mg tablet RxNorm: 772357 1 Tablet(s) PO TID 07/07/2018 07/13/2018 Inactive lamotrigine 100 mg tablet RxNorm: 464377 TAKE 1 TABLET BY MOUTH IN THE MORNING 07/03/2018 09/28/2018 Inactive Keflex 500 mg capsule RxNorm: 581406 1 Capsule(s) PO QID 06/12/2018 06/18/2018 Inactive please call patient to let her know she needs to [facility] for antibiotic Dilantin Extended 100 mg capsule RxNorm: 541985 Capsule(s) TAKE 1 CAP TID ON //TUE AND 1 CAPSULE QID ON ///TUE. if having symptoms of seizure activity, take an extra pill 05/29/2018 07/19/2018 Inactive Dilantin Extended 100 mg capsule RxNorm: 628857 Capsule(s) TAKE 1 CAP TID x2 DAYS, THEN 1 CAPSULE qid x2 DAYs, THEN REPEAT CYCLE. if having symptoms of seizure activity, take an extra pill 05/22/2018 05/28/2018 Inactive lamotrigine 150 mg tablet RxNorm: 421261 TAKE 1 TABLET BY MOUTH AT BEDTIME 04/17/2018 08/13/2018 Inactive Dilantin Extended 100 mg capsule RxNorm: 028411 TAKE 1 CAPSULE BY MOUTH THREE TIMES DAILY FOR 3 DAYS, THEN 1 CAPSULE FOUR TIMES DAILY FOR 1 DAY, THEN REPEAT CYCLE. 04/12/2018 05/21/2018 Inactive lamotrigine 100 mg tablet RxNorm: 266624 TAKE 1 TABLET BY MOUTH IN THE MORNING 03/31/2018 07/02/2018 Inactive dicyclomine 10 mg capsule RxNorm: 673163 TAKE ONE CAPSULE BY MOUTH TWICE DAILY NEEDED 02/20/2018 No Stop Date Active Keflex 500 mg capsule RxNorm: 344041 1 Capsule(s) PO QID 02/16/2018 02/22/2018 Inactive please call patient to let her know she needs to [facility] for antibiotic Penlac 8 % topical solution RxNorm: 134351 1 Application TOP daily clean off every 7 days and restart application process 02/16/2018 09/13/2018 Inactive ok to dispense generic Dilantin Extended 100 mg capsule RxNorm: 862867 Capsule(s) PO UD 1 cap TID x 3 days then 1 cap qid x 1 day then repeat cycle 12/15/2017 04/11/2018 Inactive give 1 month supply lamotrigine 150 mg tablet RxNorm: 296933 1 Tablet(s) PO QHS 12/07/2017 04/05/2018 Inactive lamotrigine 100 mg tablet RxNorm: 092487 1 Tablet(s) PO QAM 12/07/2017 03/30/2018 Inactive Levaquin 500 mg tablet RxNorm: 163283 1 Tablet(s) PO daily 12/05/2017 12/11/2017 Inactive Keflex 500 mg capsule RxNorm: 923933 1 Capsule(s) PO TID 11/14/2017 11/20/2017 Inactive Keflex 500 mg capsule RxNorm: 170473 1 Capsule(s) PO TID 11/14/2017 11/13/2017 Inactive Dilantin Extended 100 mg capsule RxNorm: 820908 Capsule(s) PO UD m3pill/tue3 pill/wed 4 pill/ thur 2pill/fri 3pill/sat 4pill/sun 3 pill 10/13/2017 12/14/2017 Inactive Dilantin Extended 100 mg capsule RxNorm: 702085 Capsule(s) PO UD -Alternate 300 mg for two days in a row and then 400 mg for one day and repeat cycle 10/04/2017 10/12/2017 Inactive Augmentin 500 mg-125 mg tablet RxNorm: 911851 1 Tablet(s) PO TID 07/15/2017 07/14/2017 Inactive Augmentin 500 mg-125 mg tablet RxNorm: 173671 1 Tablet(s) PO TID 07/15/2017 07/21/2017 Inactive Dilantin Extended 100 mg capsule RxNorm: 825376 1 Capsule(s) PO daily -Alternate 300 mg and 400 mg every other day 06/07/2017 10/03/2017 Inactive Bactrim DS 800 mg-160 mg tablet RxNorm: 792677 1 Tablet(s) PO BID 05/02/2017 05/08/2017 Inactive Dilantin Extended 100 mg capsule RxNorm: 752634 1 Capsule(s) PO daily in the afternoon and 2 Capsules PO HS- Will take an additional pill if she has a lot of jerking 04/27/2017 06/06/2017 Inactive Keflex 500 mg capsule RxNorm: 370783 1 Capsule(s) PO TID 04/19/2017 04/23/2017 Inactive dicyclomine 10 mg capsule RxNorm: 083930 1 Capsule(s) PO BID as needed 03/30/2017 05/28/2017 Inactive Senna with Docusate Sodium 8.6 mg-50 mg tablet RxNorm: 418343 1 Tablet(s) PO BID as needed constipation 03/02/2017 07/29/2017 Inactive Keflex 500 mg capsule RxNorm: 900369 1 Capsule(s) PO TID 08/11/2016 08/20/2016 Inactive Levaquin 500 mg tablet RxNorm: 979925 1 Tablet(s) PO daily 04/16/2016 04/22/2016 Inactive ciprofloxacin 500 mg tablet RxNorm: 261185 1 Tablet(s) PO BID 02/10/2016 02/16/2016 Inactive prednisone 10 mg tablet RxNorm: 624111 1 Tablet(s) PO as needed for pain No Start Date Active Vitamin D3 5,000 unit tablet RxNorm: 861738 1 Tablet(s) PO daily No Start Date Active Prolia 60 mg/mL subcutaneous syringe RxNorm: 524245 1 injection SQ Q6 months No Start Date Active lamotrigine 150 mg tablet RxNorm: 840812 1 Tablet(s) PO QHS No Start Date 12/06/2017 Inactive lamotrigine 100 mg tablet RxNorm: 165423 1 Tablet(s) PO QAM No Start Date 12/06/2017 Inactive Dilantin Extended 100 mg capsule RxNorm: 734162 Capsule(s) PO TAKES FOUR CAPSULES FOR 2 DAYS, THEN THREE CAPSULES FOR 1 DAY, THEN REPEATS No Start Date 04/26/2017 Inactive Zithromax Z-Escobar 250 mg tablet RxNorm: 308434 2 po on first dose and 1 daily Tablet(s) PO No Start Date 07/26/2018 Inactive zpack x 1 Humira 20 mg/0.4 mL subcutaneous syringe kit RxNorm: 130086 1 injection SQ every 2 weeks- Prescribed by Dr. Baker No Start Date 05/23/2017 Inactive Medication Administered No Medication Administered data Immunizations No Immunization data Assessments Condition Codes Effective Dates Dysuria ICD-10: R30.0 ICD-9: 788.1 11/28/2018 Other epilepsy, not intractable, without status epilepticus ICD- 10: G40.802 ICD-9: 345.10 09/12/2018 Muscle weakness (generalized) ICD-10: M62.81 ICD-9: 728.87 09/12/2018 Unsteadiness on feet ICD-10: R26.81 ICD-9: 781.2 08/21/2018 Generalized idiopathic epilepsy and epileptic syndromes, not intractable, with status epilepticus ICD-10: G40.301 ICD-9: 345.3 08/03/2018 Cough ICD-10: R05 ICD-9: 786.2 07/20/2018 Acute upper respiratory infection, unspecified ICD-10: J06.9 ICD-9: 465.9 07/07/2018 Other abnormalities of gait and mobility ICD-10: R26.89 ICD-9: 781.2 05/22/2018 Mixed incontinence ICD-10: N39.46 ICD-9: 788.33 [...] Drug-induced polyneuropathy ICD-10: G62.0 ICD-9: 357.7 05/24/2017 Other specified polyneuropathies ICD-10: G62.89 ICD-9: 356.8 03/30/2017 Low back pain ICD-10: M54.5 ICD-9: 724.2 03/30/2017 Benign paroxysmal vertigo, bilateral ICD-10: H81.13 ICD-9: 386.11 03/02/2017 Rheumatoid arthritis without rheumatoid factor, multiple sites ICD-10: M06.09 ICD-9: 714.0 08/30/2016 Pressure ulcer of sacral region, stage 1 ICD-10: L89.151 ICD-9: 707.03 08/11/2016 Reason For Visit Reason For Visit Effective Dates Notes muscle weakness 09/12/2018 muscle weakness 08/21/2018 Hospital Follow Up 07/20/2018 cough 07/07/2018 muscle weakness 05/22/2018 diarrhea 04/04/2018 [...] Observation Code Item Item Code Result Date Vitamin D 25 Oh [id number] VITAMIN D, 25 HYDROXY 13.64 ng/mL 12/06/2018 Urinalysis Ord28 U-Color Yellow 11/30/2018 Urinalysis Ord28 U-Clarity Cloudy 11/30/2018 Urinalysis Ord28 U-Gluc Negative 11/30/2018 Urinalysis Ord28 U-Bili Negative 11/30/2018 Urinalysis Ord28 U-Ketone Trace 11/30/2018 Urinalysis Ord28 U-SG 1.020 11/30/2018 Urinalysis Ord28 U-Blood Small 11/30/2018 Urinalysis Ord28 U-pH 6.0 11/30/2018 Urinalysis Ord28 U-Protein 30 mg/dL 11/30/2018 Urinalysis Ord28 U-Urobilin 0.2 E.U./dL E.U./dL 11/30/2018 Urinalysis Ord28 U-Nitrites Positive 11/30/2018 Urinalysis Ord28 U-Leuk Large 11/30/2018 Urinalysis Ord28 U-Bact 3+ 11/30/2018 Urinalysis Ord28 U-Squamous Epi None per/HPF 11/30/2018 Urinalysis Ord28 U-Crystal None per/HPF 11/30/2018 Urinalysis Ord28 U-Mucus None 11/30/2018 Urinalysis Ord28 U-Renal tubular epi None 11/30/2018 Urinalysis Ord28 U-RBC 5-10 per/HPF 11/30/2018 Urinalysis Ord28 U-Transitional epi None per/HPF 11/30/2018 Urinalysis Ord28 U-WBC 30-40 per/HPF 11/30/2018 Urinalysis Ord28 U-Cast None per/lpf 11/30/2018 Urinalysis Ord28 U-VOL VOLUME SUFFICIENT (10mL) 11/30/2018 Urinalysis Ord28 U-Com Culture to follow 11/30/2018 Urinalysis Ord28 U-Yeast NEGATIVE 11/30/2018 Dilantin Ord7 DILANTIN 13.0 UG/ML 10/17/2018 Dilantin Ord7 DILANTIN 15.6 UG/ML 09/12/2018 Urine Culture Ucult Complete >100,000 col/ml aerobic growth sent to ref lab 08/08/2018 Dilantin Ord7 DILANTIN 17.9 UG/ML 08/03/2018 Urine Culture Ucult Complete Growth of aerobe sent to ref lab 06/14/2018 Dilantin Ord7 DILANTIN 10.5 UG/ML 05/11/2018 Comp Metabolic Ysm678 NA 138 mEq/L 05/11/2018 Comp Metabolic Ubj903 K 4.0 mEq/L 05/11/2018 Comp Metabolic Mfc512 CL 100 mEq/L 05/11/2018 Comp Metabolic Yjy313 CO2 29.0 mEq/L 05/11/2018 Comp Metabolic Feb697 ANION GAP 13 05/11/2018 Comp Metabolic Urj777 GLUCOSE 84 mg/dL 05/11/2018 Comp Metabolic Nol952 Creat 0.8 mg/dL 05/11/2018 Comp Metabolic Ann399 eGFR 77 ml/min/1.73m2 05/11/2018 Comp Metabolic Ujx676 BUN 26 mg/dL 05/11/2018 Comp Metabolic Ijv987 B/C Ratio 33.3 Ratio 05/11/2018 Comp Metabolic Asm077 CALCIUM 9.1 mg/dL 05/11/2018 Comp Metabolic Itu279 ALK PHOS 97 U/L 05/11/2018 Comp Metabolic Mob591 AST(SGOT) 14 U/L 05/11/2018 Comp Metabolic Uuo317 ALT(SGPT) 7 U/L 05/11/2018 Comp Metabolic Gpx748 BILI T 0.3 mg/dL 05/11/2018 Comp Metabolic Ijr516 ALBUMIN 3.6 g/dL 05/11/2018 Comp Metabolic Zes832 TPRO 6.9 g/dL 05/11/2018 Comp Metabolic Pgv352 GLOB 3.3 g/dL 05/11/2018 Comp Metabolic Hsl302 A/G Ratio 1.1 Ratio 05/11/2018 Comp Metabolic Wdf371 Osmo 280 mOsmo 05/11/2018 Dilantin Ord7 DILANTIN 10.7 UG/ML 04/25/2018 Valproic Acid Bsb414 VALPROIC <10 ug/ml 04/24/2018 Dilantin Ord7 DILANTIN 10.6 UG/ML 04/11/2018 Culture Urine [id number] URINE CULTURE SEE NOTES 02/20/2018 Culture Urine [id number] Continued Results 02/20/2018 Urine Culture Ucult Complete >100,000 col/ml aerobic growth sent to ref lab 02/17/2018 Dilantin Ord7 DILANTIN 14.4 UG/ML 02/16/2018 Comp Metabolic Tad506 NA 135 mEq/L 02/16/2018 Comp Metabolic Xmm134 K 3.8 mEq/L 02/16/2018 Comp Metabolic Emr035 CL 99 mEq/L 02/16/2018 Comp Metabolic Vuk471 CO2 28.0 mEq/L 02/16/2018 Comp Metabolic Fjw676 ANION GAP 12 02/16/2018 Comp Metabolic Fht381 GLUCOSE 101 mg/dL 02/16/2018 Comp Metabolic Ifr255 Creat 0.8 mg/dL 02/16/2018 Comp Metabolic Vzf768 eGFR 75 ml/min/1.73m2 02/16/2018 Comp Metabolic Ucl139 BUN 20 mg/dL 02/16/2018 Comp Metabolic Rjx996 B/C Ratio 25.0 Ratio 02/16/2018 Comp Metabolic Xsm724 CALCIUM 8.9 mg/dL 02/16/2018 Comp Metabolic Fev361 ALK PHOS 95 U/L 02/16/2018 Comp Metabolic Ezt908 AST(SGOT) 13 U/L 02/16/2018 Comp Metabolic Ljw701 ALT(SGPT) 7 U/L 02/16/2018 Comp Metabolic Lfm036 BILI T 0.4 mg/dL 02/16/2018 Comp Metabolic Ozn974 ALBUMIN 3.6 g/dL 02/16/2018 Comp Metabolic Aqx101 TPRO 7.2 g/dL 02/16/2018 Comp Metabolic Vow289 GLOB 3.6 g/dL 02/16/2018 Comp Metabolic Rqf389 A/G Ratio 1.0 Ratio 02/16/2018 Comp Metabolic Cdd416 Osmo 273 mOsmo 02/16/2018 Urine Culture Ucult Complete >100,000 col/ml aerobic growth sent to ref lab 11/15/2017 Comp Metabolic Fbx272 NA 136 mEq/L 10/13/2017 Comp Metabolic Vsv995 K 4.0 mEq/L 10/13/2017 Comp Metabolic Lkd891 CL 98 mEq/L 10/13/2017 Comp Metabolic Omt387 CO2 28.0 mEq/L 10/13/2017 Comp Metabolic Caw414 ANION GAP 14 10/13/2017 Comp Metabolic Unm225 GLUCOSE 94 mg/dL 10/13/2017 Comp Metabolic Hzb735 Creat 0.7 mg/dL 10/13/2017 Comp Metabolic Dst191 eGFR 82 ml/min/1.73m2 10/13/2017 Comp Metabolic Kvx050 BUN 26 mg/dL 10/13/2017 Comp Metabolic Qyx806 B/C Ratio 35.1 Ratio 10/13/2017 Comp Metabolic Xwa577 CALCIUM 9.1 mg/dL 10/13/2017 Comp Metabolic Nzv206 ALK PHOS 98 U/L 10/13/2017 Comp Metabolic Kmh739 AST(SGOT) 15 U/L 10/13/2017 Comp Metabolic Vci200 ALT(SGPT) 8 U/L 10/13/2017 Comp Metabolic Nmp400 BILI T 0.4 mg/dL 10/13/2017 Comp Metabolic Ski480 ALBUMIN 3.7 g/dL 10/13/2017 Comp Metabolic Moy664 TPRO 7.8 g/dL 10/13/2017 Comp Metabolic Izn649 GLOB 4.1 g/dL 10/13/2017 Comp Metabolic Iwd257 A/G Ratio 0.9 Ratio 10/13/2017 Comp Metabolic Mmq755 Osmo 276 mOsmo 10/13/2017 Dilantin Ord7 DILANTIN 21.4 Result Verified By Repeat Analysis UG/ML 10/13/2017 Dilantin Ord7 DILANTIN 24.1 Result Verified By Repeat Analysis UG/ML 10/03/2017 Dilantin Ord7 DILANTIN 18.1 UG/ML 06/30/2017 Dilantin Ord7 DILANTIN 22.7 UG/ML 06/16/2017 Dilantin Ord7 DILANTIN 26.1 UG/ML 06/07/2017 Dilantin Ord7 DILANTIN 24.1 UG/ML 05/24/2017 Dilantin Ord7 DILANTIN 19.6 UG/ML 05/11/2017 Culture Urine [id number] URINE CULTURE SEE NOTES 05/06/2017 Culture Urine [id number] Continued Results 05/06/2017 Urine Culture Ucult Complete >100,000 col/ml aerobic growth sent to ref lab 05/03/2017 Dilantin Ord7 DILANTIN 12.6 UG/ML 04/27/2017 Calcium Ord79 CALCIUM 9.3 mg/dL 04/19/2017 Dilantin Ord7 DILANTIN 21.6 UG/ML 04/19/2017 Dilantin Ord7 DILANTIN 10.3 UG/ML 04/13/2017 Dilantin Ord7 DILANTIN 21.9 UG/ML 04/07/2017 Comp Metabolic Asx994 NA 137 mEq/L 03/30/2017 Comp Metabolic Zbz320 K 3.7 mEq/L 03/30/2017 Comp Metabolic Msb296 CL 98 mEq/L 03/30/2017 Comp Metabolic Yxl101 CO2 29.0 mEq/L 03/30/2017 Comp Metabolic Pvy085 ANION GAP 14 03/30/2017 Comp Metabolic Yhz854 GLUCOSE 100 mg/dL 03/30/2017 Comp Metabolic Ivy060 Creat 0.9 mg/dL 03/30/2017 Comp Metabolic Lwh062 eGFR 88 ml/min/1.73m2 03/30/2017 Comp Metabolic Yyv050 BUN 22 mg/dL 03/30/2017 Comp Metabolic Nvf053 B/C Ratio 24.4 Ratio 03/30/2017 Comp Metabolic Gsn090 CALCIUM 9.4 mg/dL 03/30/2017 Comp Metabolic Kli810 ALK PHOS 113 U/L 03/30/2017 Comp Metabolic Vlv250 AST(SGOT) 16 U/L 03/30/2017 Comp Metabolic Jqe879 ALT(SGPT) 7 U/L 03/30/2017 Comp Metabolic Rlm159 BILI T 0.3 mg/dL 03/30/2017 Comp Metabolic Ttr630 ALBUMIN 3.9 g/dL 03/30/2017 Comp Metabolic Mmc061 TPRO 8.0 g/dL 03/30/2017 Comp Metabolic Sef100 GLOB 4.1 g/dL 03/30/2017 Comp Metabolic Xes122 A/G Ratio 0.9 Ratio 03/30/2017 Comp Metabolic Bqi099 Osmo 277 mOsmo 03/30/2017 Lipid Ord30 CHOL 214 mg/dL 03/30/2017 Lipid Ord30 HDL 61.0 mg/dl 03/30/2017 Lipid Ord30 TRIG 130 mg/dL 03/30/2017 Lipid Ord30 LDL 127 mg/dL 03/30/2017 Lipid Ord30 C/HDL 3.5 Ratio 03/30/2017 Dilantin Ord7 DILANTIN 32.5 UG/ML 03/30/2017 Folate Ord36 Folate 16.46 ng/mL 03/30/2017 Tsh Ord6 hTSH II 0.95 uIU/mL 03/30/2017 B12 Pcy015 B12 592.00 pg/ml 03/30/2017 Cbc With Differential [...] 30.9 pg 03/30/2017 Cbc With Differential Ord2 Donley% 23.9 % 03/30/2017 Cbc With Differential Ord2 [...] 0.44 K/ul 03/30/2017 Cbc With Differential Ord2 [place]ley ABS# 0.3 K/ul 03/30/2017 Cbc With Differential [...] 30.3 pg 08/11/2016 Cbc With Differential Ord2 Donley% 31.7 % 08/11/2016 Cbc With Differential Ord2 [...] 0.59 K/ul 08/11/2016 Cbc With Differential Ord2 [place] ABS# 0.6 K/ul 08/11/2016 Cbc With Differential Ord2 Eos ABS# 0.0 K/ul 08/11/2016 Cbc With Differential Ord2 Baso ABS# 0.0 K/ul 08/11/2016 Dilantin Ord7 DILANTIN 17.2 UG/ML 08/11/2016 Tsh Ord6 hTSH II 0.82 uIU/mL 08/11/2016 Comp Metabolic Rhr360 NA 131 mEq/L 08/11/2016 Comp Metabolic Bva756 K 4.1 mEq/L 08/11/2016 Comp Metabolic Wvc228 CL 93 mEq/L 08/11/2016 Comp Metabolic Utj843 CO2 29.0 mEq/L 08/11/2016 Comp Metabolic Eap545 ANION GAP 13 08/11/2016 Comp Metabolic Hix197 GLUCOSE 120 mg/dL 08/11/2016 Comp Metabolic Lsl062 Creat 0.8 mg/dL 08/11/2016 Comp Metabolic Fqo040 eGFR 101 ml/min/1.73m2 08/11/2016 Comp Metabolic Uzu480 BUN 18 mg/dL 08/11/2016 Comp Metabolic Anb034 B/C Ratio 22.5 Ratio 08/11/2016 Comp Metabolic Tvq962 CALCIUM 9.5 mg/dL 08/11/2016 Comp Metabolic Hbd929 ALK PHOS 104 U/L 08/11/2016 Comp Metabolic Aol508 AST(SGOT) 16 U/L 08/11/2016 Comp Metabolic Eip921 ALT(SGPT) 8 U/L 08/11/2016 Comp Metabolic Iok048 BILI T 0.4 mg/dL 08/11/2016 Comp Metabolic Suw133 ALBUMIN 3.8 g/dL 08/11/2016 Comp Metabolic Ubd746 TPRO 8.4 g/dL 08/11/2016 Comp Metabolic Tft796 GLOB 4.6 g/dL 08/11/2016 Comp Metabolic Zio380 A/G Ratio 0.8 Ratio 08/11/2016 Comp Metabolic Gmh627 Osmo 266 mOsmo 08/11/2016 Culture Urine [id number] URINE CULTURE SEE NOTES 04/19/2016 Culture Urine [id number] Continued Results 04/19/2016 Urine Culture Ucult Complete >100,000 col/ml aerobic growth sent to ref lab 04/17/2016 Culture Urine [id number] URINE CULTURE SEE NOTES 02/13/2016 Culture Urine [id number] Continued Results 02/13/2016 Urine Culture Ucult Complete >100,000 col/ml aerobic growth sent to ref lab 02/11/2016 Dilantin Ord7 DILANTIN 19.2 UG/ML 02/10/2016 Review of Systems System Result Effective Dates Constitutional No recent illness 09/12/2018 Constitutional No chills 09/12/2018 Constitutional No diaphoresis 09/12/2018 Constitutional No fever 09/12/2018 Eyes No blindness 09/12/2018 Ears/Nose/Throat/Neck No nasal discharge 09/12/2018 Cardiovascular No chest pain/pressure 09/12/2018 Cardiovascular No dyspnea 09/12/2018 Respiratory No cough 09/12/2018 Respiratory No dyspnea 09/12/2018 Gastrointestinal No abdominal pain 09/12/2018 Genitourinary/Nephrology urinary urgency 09/12/2018 Genitourinary/Nephrology urinary frequency 09/12/2018 Musculoskeletal No stiffness 09/12/2018 Musculoskeletal No swelling 09/12/2018 Musculoskeletal muscle weakness 09/12/2018 Musculoskeletal No myalgias 09/12/2018 Neurologic No alteration of consciousness 09/12/2018 Neurologic No mental status change 09/12/2018 Psychiatric No anxiety 09/12/2018 Psychiatric No depression 09/12/2018 Constitutional recent illness 08/21/2018 Constitutional No chills 08/21/2018 Constitutional No diaphoresis 08/21/2018 Constitutional No fever 08/21/2018 Eyes No blindness 08/21/2018 Ears/Nose/Throat/Neck No nasal discharge 08/21/2018 Cardiovascular No chest pain/pressure 08/21/2018 Cardiovascular No dyspnea 08/21/2018 Respiratory No cough 08/21/2018 Respiratory No dyspnea 08/21/2018 Gastrointestinal No abdominal pain 08/21/2018 Genitourinary/Nephrology urinary urgency 08/21/2018 Genitourinary/Nephrology urinary frequency 08/21/2018 Musculoskeletal stiffness 08/21/2018 Musculoskeletal No swelling 08/21/2018 Musculoskeletal muscle weakness 08/21/2018 Musculoskeletal No myalgias 08/21/2018 Neurologic No alteration of consciousness 08/21/2018 Neurologic No mental status change 08/21/2018 Psychiatric No anxiety 08/21/2018 Psychiatric No depression 08/21/2018 Constitutional fatigue 08/21/2018 Constitutional recent illness 07/20/2018 Constitutional anorexia 07/20/2018 Constitutional No night sweats 07/20/2018 Constitutional No chills 07/20/2018 Constitutional No diaphoresis 07/20/2018 Constitutional fatigue 07/20/2018 Constitutional No fever 07/20/2018 Constitutional No insomnia 07/20/2018 Constitutional No malaise 07/20/2018 Constitutional No weight loss 07/20/2018 Constitutional No weight gain 07/20/2018 Eyes No eye discharge 07/20/2018 Eyes No eye erythema 07/20/2018 Ears/Nose/Throat/Neck No dizziness 07/20/2018 Cardiovascular No chest pain/pressure 07/20/2018 Respiratory cough 07/20/2018 Gastrointestinal No vomiting 07/20/2018 Gastrointestinal No nausea 07/20/2018 Gastrointestinal No diarrhea 07/20/2018 Genitourinary/Nephrology No dysuria 07/20/2018 Dermatologic No rash 07/20/2018 Musculoskeletal No joint complaint 07/20/2018 Constitutional recent illness 07/07/2018 Constitutional No anorexia 07/07/2018 Constitutional No night sweats 07/07/2018 Constitutional No chills 07/07/2018 Constitutional No diaphoresis 07/07/2018 Constitutional No fatigue 07/07/2018 Constitutional No fever 07/07/2018 Constitutional No insomnia 07/07/2018 Constitutional No malaise 07/07/2018 Constitutional No weight loss 07/07/2018 Constitutional No weight gain 07/07/2018 Eyes No eye erythema 07/07/2018 Eyes No eye discharge 07/07/2018 Ears/Nose/Throat/Neck dizziness 07/07/2018 Ears/Nose/Throat/Neck No nasal allergies 07/07/2018 Ears/Nose/Throat/Neck No nasal discharge 07/07/2018 Ears/Nose/Throat/Neck No otalgia 07/07/2018 Ears/Nose/Throat/Neck No sinus congestion 07/07/2018 Ears/Nose/Throat/Neck sore throat 07/07/2018 Cardiovascular No chest pain/pressure 07/07/2018 Cardiovascular No dyspnea 07/07/2018 Cardiovascular No edema 07/07/2018 Respiratory cough 07/07/2018 Respiratory No productive sputum 07/07/2018 Gastrointestinal No vomiting 07/07/2018 Gastrointestinal No diarrhea 07/07/2018 Gastrointestinal No constipation 07/07/2018 Genitourinary/Nephrology No dysuria 07/07/2018 Musculoskeletal No joint complaint 07/07/2018 Dermatologic No rash 07/07/2018 Neurologic No alteration of consciousness 07/07/2018 Constitutional No recent illness 05/22/2018 Constitutional No chills 05/22/2018 Constitutional No diaphoresis 05/22/2018 Constitutional No fever 05/22/2018 Eyes No blindness 05/22/2018 Ears/Nose/Throat/Neck No nasal discharge 05/22/2018 Cardiovascular No chest pain/pressure 05/22/2018 Cardiovascular No dyspnea 05/22/2018 Respiratory No cough 05/22/2018 Respiratory No dyspnea 05/22/2018 Gastrointestinal No abdominal pain 05/22/2018 Genitourinary/Nephrology urinary urgency 05/22/2018 Genitourinary/Nephrology urinary frequency 05/22/2018 Musculoskeletal No stiffness 05/22/2018 Musculoskeletal No swelling 05/22/2018 Musculoskeletal muscle weakness 05/22/2018 Musculoskeletal No myalgias 05/22/2018 Neurologic No alteration of consciousness 05/22/2018 Neurologic No mental status change 05/22/2018 Psychiatric No anxiety 05/22/2018 Psychiatric No depression 05/22/2018 Constitutional recent illness 04/04/2018 Constitutional No chills 04/04/2018 Constitutional fatigue 04/04/2018 Constitutional No fever 04/04/2018 Constitutional No insomnia 04/04/2018 Constitutional malaise 04/04/2018 Eyes No blindness 04/04/2018 Eyes No vision change 04/04/2018 Ears/Nose/Throat/Neck No dizziness 04/04/2018 Ears/Nose/Throat/Neck No dysphagia 04/04/2018 Ears/Nose/Throat/Neck No headache 04/04/2018 Ears/Nose/Throat/Neck No hearing loss 04/04/2018 Ears/Nose/Throat/Neck No nasal allergies 04/04/2018 Ears/Nose/Throat/Neck No sore throat 04/04/2018 Cardiovascular No chest pain/pressure 04/04/2018 Cardiovascular No dyspnea 04/04/2018 Cardiovascular No edema 04/04/2018 Cardiovascular No exercise intolerance 04/04/2018 Cardiovascular No fatigue 04/04/2018 Cardiovascular No near-syncope/dizziness 04/04/2018 Respiratory No chest tightness 04/04/2018 Respiratory No cough 04/04/2018 Respiratory No dyspnea 04/04/2018 Respiratory No pedal edema 04/04/2018 Gastrointestinal abdominal pain 04/04/2018 Gastrointestinal No gastroesophageal reflux 04/04/2018 Gastrointestinal nausea 04/04/2018 Musculoskeletal stiffness 04/04/2018 Musculoskeletal No swelling 04/04/2018 Musculoskeletal arthralgia(s) 04/04/2018 Musculoskeletal muscle weakness 04/04/2018 Musculoskeletal No myalgias 04/04/2018 Neurologic dyskinesia or tremor 04/04/2018 Neurologic gait abnormality 04/04/2018 Psychiatric anxiety 04/04/2018 Psychiatric No depression 04/04/2018 Gastrointestinal diarrhea 04/04/2018 Constitutional No recent illness 02/16/2018 Constitutional No chills 02/16/2018 Constitutional No diaphoresis 02/16/2018 Constitutional No fever 02/16/2018 Eyes No blindness 02/16/2018 Ears/Nose/Throat/Neck No nasal discharge 02/16/2018 Cardiovascular No chest pain/pressure 02/16/2018 Cardiovascular No dyspnea 02/16/2018 Respiratory No cough 02/16/2018 Respiratory No dyspnea 02/16/2018 Gastrointestinal No abdominal pain 02/16/2018 Musculoskeletal No stiffness 02/16/2018 Musculoskeletal No swelling 02/16/2018 Musculoskeletal muscle weakness 02/16/2018 Musculoskeletal No myalgias 02/16/2018 Neurologic No alteration of consciousness 02/16/2018 Neurologic No mental status change 02/16/2018 Psychiatric No anxiety 02/16/2018 Psychiatric No depression 02/16/2018 Genitourinary/Nephrology urinary urgency 02/16/2018 Genitourinary/Nephrology urinary frequency 02/16/2018 Constitutional No recent illness 12/30/2017 Constitutional No chills 12/30/2017 Constitutional No diaphoresis 12/30/2017 Constitutional No fever 12/30/2017 Eyes No blindness 12/30/2017 Ears/Nose/Throat/Neck No nasal discharge 12/30/2017 Cardiovascular No chest pain/pressure 12/30/2017 Cardiovascular No dyspnea 12/30/2017 Respiratory No cough 12/30/2017 Respiratory No dyspnea 12/30/2017 Gastrointestinal No abdominal pain 12/30/2017 Musculoskeletal No stiffness 12/30/2017 Musculoskeletal No swelling 12/30/2017 Musculoskeletal No muscle weakness 12/30/2017 Musculoskeletal No myalgias 12/30/2017 Neurologic No alteration of consciousness 12/30/2017 Neurologic No mental status change 12/30/2017 Psychiatric No anxiety 12/30/2017 Psychiatric No depression 12/30/2017 Gastrointestinal constipation 12/30/2017 Constitutional No recent illness 10/13/2017 Constitutional No chills 10/13/2017 Constitutional No diaphoresis 10/13/2017 Constitutional No fever 10/13/2017 Eyes No blindness 10/13/2017 Ears/Nose/Throat/Neck No nasal discharge 10/13/2017 Cardiovascular No chest pain/pressure 10/13/2017 Cardiovascular No dyspnea 10/13/2017 Respiratory No cough 10/13/2017 Respiratory No dyspnea 10/13/2017 Neurologic No alteration of consciousness 10/13/2017 Neurologic No mental status change 10/13/2017 Gastrointestinal No abdominal pain 10/13/2017 Musculoskeletal No stiffness 10/13/2017 Musculoskeletal No swelling 10/13/2017 Musculoskeletal No muscle weakness 10/13/2017 Musculoskeletal No myalgias 10/13/2017 Psychiatric No anxiety 10/13/2017 Psychiatric No depression 10/13/2017 Constitutional No recent illness 07/12/2017 Constitutional No chills 07/12/2017 Constitutional fatigue 07/12/2017 Constitutional No fever 07/12/2017 Constitutional No insomnia 07/12/2017 Constitutional malaise 07/12/2017 Eyes No blindness 07/12/2017 Eyes No vision change 07/12/2017 Ears/Nose/Throat/Neck No dizziness 07/12/2017 Ears/Nose/Throat/Neck No dysphagia 07/12/2017 Ears/Nose/Throat/Neck No headache 07/12/2017 Ears/Nose/Throat/Neck No hearing loss 07/12/2017 Ears/Nose/Throat/Neck No nasal allergies 07/12/2017 Ears/Nose/Throat/Neck No sore throat 07/12/2017 Ears/Nose/Throat/Neck No postnasal drip 07/12/2017 Ears/Nose/Throat/Neck No sinus congestion 07/12/2017 Cardiovascular No chest pain/pressure 07/12/2017 Cardiovascular No dyspnea 07/12/2017 Cardiovascular No edema 07/12/2017 Cardiovascular No exercise intolerance 07/12/2017 Cardiovascular No fatigue 07/12/2017 Cardiovascular No near-syncope/dizziness 07/12/2017 Respiratory No chest tightness 07/12/2017 Respiratory No cough 07/12/2017 Respiratory No dyspnea 07/12/2017 Respiratory No pedal edema 07/12/2017 Gastrointestinal No abdominal pain 07/12/2017 Gastrointestinal No constipation 07/12/2017 Gastrointestinal No diarrhea 07/12/2017 Gastrointestinal No gastroesophageal reflux 07/12/2017 Gastrointestinal No nausea 07/12/2017 Gastrointestinal No vomiting 07/12/2017 Musculoskeletal stiffness 07/12/2017 Musculoskeletal No swelling 07/12/2017 Musculoskeletal arthralgia(s) 07/12/2017 Musculoskeletal muscle weakness 07/12/2017 Musculoskeletal No myalgias 07/12/2017 Neurologic No dizziness 07/12/2017 Neurologic dyskinesia or tremor 07/12/2017 Neurologic gait abnormality 07/12/2017 Neurologic No headache 07/12/2017 Neurologic No neck pain 07/12/2017 Neurologic No syncope 07/12/2017 Psychiatric anxiety 07/12/2017 Psychiatric No depression 07/12/2017 Genitourinary/Nephrology urinary incontinence 07/12/2017 Constitutional No recent illness 06/07/2017 Constitutional No chills 06/07/2017 Constitutional No diaphoresis 06/07/2017 Constitutional No fever 06/07/2017 Eyes No eye erythema 06/07/2017 Ears/Nose/Throat/Neck No nasal discharge 06/07/2017 Cardiovascular No chest pain/pressure 06/07/2017 Cardiovascular No dyspnea 06/07/2017 Respiratory No cough 06/07/2017 Respiratory No dyspnea 06/07/2017 Neurologic No alteration of consciousness 06/07/2017 Neurologic No mental status change 06/07/2017 Constitutional recent illness 05/24/2017 Constitutional No chills 05/24/2017 Constitutional fatigue 05/24/2017 Constitutional No fever 05/24/2017 Constitutional No insomnia 05/24/2017 Constitutional malaise 05/24/2017 Eyes No blindness 05/24/2017 Eyes No vision change 05/24/2017 Ears/Nose/Throat/Neck No dizziness 05/24/2017 Ears/Nose/Throat/Neck No dysphagia 05/24/2017 Ears/Nose/Throat/Neck No headache 05/24/2017 Ears/Nose/Throat/Neck No hearing loss 05/24/2017 Ears/Nose/Throat/Neck No nasal allergies 05/24/2017 Ears/Nose/Throat/Neck No sore throat 05/24/2017 Ears/Nose/Throat/Neck No postnasal drip 05/24/2017 Ears/Nose/Throat/Neck No sinus congestion 05/24/2017 Cardiovascular No chest pain/pressure 05/24/2017 Cardiovascular No dyspnea 05/24/2017 Cardiovascular No edema 05/24/2017 Cardiovascular No exercise intolerance 05/24/2017 Cardiovascular No fatigue 05/24/2017 Cardiovascular No near-syncope/dizziness 05/24/2017 Respiratory No chest tightness 05/24/2017 Respiratory No cough 05/24/2017 Respiratory No dyspnea 05/24/2017 Respiratory No pedal edema 05/24/2017 Gastrointestinal No abdominal pain 05/24/2017 Gastrointestinal No constipation 05/24/2017 Gastrointestinal No diarrhea 05/24/2017 Gastrointestinal No gastroesophageal reflux 05/24/2017 Gastrointestinal No nausea 05/24/2017 Gastrointestinal No vomiting 05/24/2017 Musculoskeletal stiffness 05/24/2017 Musculoskeletal No swelling 05/24/2017 Musculoskeletal arthralgia(s) 05/24/2017 Musculoskeletal muscle weakness 05/24/2017 Musculoskeletal No myalgias 05/24/2017 Neurologic No dizziness 05/24/2017 Neurologic dyskinesia or tremor 05/24/2017 Neurologic gait abnormality 05/24/2017 Neurologic No headache 05/24/2017 Neurologic No neck pain 05/24/2017 Neurologic No syncope 05/24/2017 Psychiatric anxiety 05/24/2017 Psychiatric No depression 05/24/2017 Constitutional recent illness 04/27/2017 Constitutional No chills 04/27/2017 Constitutional fatigue 04/27/2017 Constitutional No fever 04/27/2017 Constitutional No insomnia 04/27/2017 Constitutional malaise 04/27/2017 Eyes No blindness 04/27/2017 Eyes No vision change 04/27/2017 Ears/Nose/Throat/Neck No dizziness 04/27/2017 Ears/Nose/Throat/Neck No dysphagia 04/27/2017 Ears/Nose/Throat/Neck No headache 04/27/2017 Ears/Nose/Throat/Neck No hearing loss 04/27/2017 Ears/Nose/Throat/Neck No nasal allergies 04/27/2017 Ears/Nose/Throat/Neck No sore throat 04/27/2017 Ears/Nose/Throat/Neck No postnasal drip 04/27/2017 Ears/Nose/Throat/Neck No sinus congestion 04/27/2017 Cardiovascular No chest pain/pressure 04/27/2017 Cardiovascular No dyspnea 04/27/2017 Cardiovascular No edema 04/27/2017 Cardiovascular No exercise intolerance 04/27/2017 Cardiovascular No fatigue 04/27/2017 Cardiovascular No near-syncope/dizziness 04/27/2017 Respiratory No chest tightness 04/27/2017 Respiratory No cough 04/27/2017 Respiratory No dyspnea 04/27/2017 Respiratory No pedal edema 04/27/2017 Gastrointestinal No abdominal pain 04/27/2017 Gastrointestinal No constipation 04/27/2017 Gastrointestinal No diarrhea 04/27/2017 Gastrointestinal No gastroesophageal reflux 04/27/2017 Gastrointestinal No nausea 04/27/2017 Gastrointestinal No vomiting 04/27/2017 Musculoskeletal stiffness 04/27/2017 Musculoskeletal No swelling 04/27/2017 Musculoskeletal arthralgia(s) 04/27/2017 Musculoskeletal muscle weakness 04/27/2017 Musculoskeletal No myalgias 04/27/2017 Neurologic No dizziness 04/27/2017 Neurologic dyskinesia or tremor 04/27/2017 Neurologic gait abnormality 04/27/2017 Neurologic No headache 04/27/2017 Neurologic No neck pain 04/27/2017 Neurologic No syncope 04/27/2017 Psychiatric anxiety 04/27/2017 Psychiatric No depression 04/27/2017 Constitutional recent illness 04/13/2017 Constitutional No chills 04/13/2017 Constitutional fatigue 04/13/2017 Constitutional No fever 04/13/2017 Constitutional No insomnia 04/13/2017 Constitutional malaise 04/13/2017 Eyes No blindness 04/13/2017 Eyes No vision change 04/13/2017 Ears/Nose/Throat/Neck No dizziness 04/13/2017 Ears/Nose/Throat/Neck No dysphagia 04/13/2017 Ears/Nose/Throat/Neck No headache 04/13/2017 Ears/Nose/Throat/Neck No hearing loss 04/13/2017 Ears/Nose/Throat/Neck No nasal allergies 04/13/2017 Ears/Nose/Throat/Neck No sore throat 04/13/2017 Ears/Nose/Throat/Neck No postnasal drip 04/13/2017 Ears/Nose/Throat/Neck No sinus congestion 04/13/2017 Cardiovascular No chest pain/pressure 04/13/2017 Cardiovascular No dyspnea 04/13/2017 Cardiovascular No edema 04/13/2017 Cardiovascular No exercise intolerance 04/13/2017 Cardiovascular No fatigue 04/13/2017 Cardiovascular No near-syncope/dizziness 04/13/2017 Respiratory No chest tightness 04/13/2017 Respiratory No cough 04/13/2017 Respiratory No dyspnea 04/13/2017 Respiratory No pedal edema 04/13/2017 Gastrointestinal No abdominal pain 04/13/2017 Gastrointestinal No constipation 04/13/2017 Gastrointestinal No diarrhea 04/13/2017 Gastrointestinal No gastroesophageal reflux 04/13/2017 Gastrointestinal No nausea 04/13/2017 Gastrointestinal No vomiting 04/13/2017 Musculoskeletal stiffness 04/13/2017 Musculoskeletal No swelling 04/13/2017 Musculoskeletal arthralgia(s) 04/13/2017 Musculoskeletal muscle weakness 04/13/2017 Musculoskeletal No myalgias 04/13/2017 Neurologic No dizziness 04/13/2017 Neurologic dyskinesia or tremor 04/13/2017 Neurologic gait abnormality 04/13/2017 Neurologic No headache 04/13/2017 Neurologic No neck pain 04/13/2017 Neurologic No syncope 04/13/2017 Psychiatric anxiety 04/13/2017 Psychiatric No depression 04/13/2017 Constitutional No recent illness 03/30/2017 Constitutional No chills 03/30/2017 Constitutional fatigue 03/30/2017 Constitutional No fever 03/30/2017 Constitutional No insomnia 03/30/2017 Constitutional malaise 03/30/2017 Eyes No blindness 03/30/2017 Eyes No vision change 03/30/2017 Ears/Nose/Throat/Neck No dizziness 03/30/2017 Ears/Nose/Throat/Neck No dysphagia 03/30/2017 Ears/Nose/Throat/Neck No headache 03/30/2017 Ears/Nose/Throat/Neck No hearing loss 03/30/2017 Ears/Nose/Throat/Neck No nasal allergies 03/30/2017 Ears/Nose/Throat/Neck No sore throat 03/30/2017 Ears/Nose/Throat/Neck No postnasal drip 03/30/2017 Ears/Nose/Throat/Neck No sinus congestion 03/30/2017 Cardiovascular No chest pain/pressure 03/30/2017 Cardiovascular No dyspnea 03/30/2017 Cardiovascular No edema 03/30/2017 Cardiovascular No exercise intolerance 03/30/2017 Cardiovascular No fatigue 03/30/2017 Cardiovascular No near-syncope/dizziness 03/30/2017 Respiratory No chest tightness 03/30/2017 Respiratory No cough 03/30/2017 Respiratory No dyspnea 03/30/2017 Respiratory No pedal edema 03/30/2017 Gastrointestinal No abdominal pain 03/30/2017 Gastrointestinal No constipation 03/30/2017 Gastrointestinal No diarrhea 03/30/2017 Gastrointestinal No gastroesophageal reflux 03/30/2017 Gastrointestinal No nausea 03/30/2017 Gastrointestinal No vomiting 03/30/2017 Musculoskeletal stiffness 03/30/2017 Musculoskeletal No swelling 03/30/2017 Musculoskeletal arthralgia(s) 03/30/2017 Musculoskeletal muscle weakness 03/30/2017 Musculoskeletal No myalgias 03/30/2017 Dermatologic No rash 03/30/2017 Dermatologic No sores 03/30/2017 Dermatologic No scar 03/30/2017 Neurologic No dizziness 03/30/2017 Neurologic dyskinesia or tremor 03/30/2017 Neurologic gait abnormality 03/30/2017 Neurologic No headache 03/30/2017 Neurologic No neck pain 03/30/2017 Neurologic No syncope 03/30/2017 Psychiatric No anxiety 03/30/2017 Psychiatric No depression 03/30/2017 Constitutional No recent illness 03/02/2017 Constitutional No chills 03/02/2017 Constitutional fatigue 03/02/2017 Constitutional No fever 03/02/2017 Constitutional No insomnia 03/02/2017 Constitutional malaise 03/02/2017 Eyes No blindness 03/02/2017 Eyes No vision change 03/02/2017 Ears/Nose/Throat/Neck No dizziness 03/02/2017 Ears/Nose/Throat/Neck No dysphagia 03/02/2017 Ears/Nose/Throat/Neck No headache 03/02/2017 Ears/Nose/Throat/Neck No hearing loss 03/02/2017 Ears/Nose/Throat/Neck No nasal allergies 03/02/2017 Ears/Nose/Throat/Neck No sore throat 03/02/2017 Ears/Nose/Throat/Neck No postnasal drip 03/02/2017 Ears/Nose/Throat/Neck No sinus congestion 03/02/2017 Cardiovascular No chest pain/pressure 03/02/2017 Cardiovascular No dyspnea 03/02/2017 Cardiovascular No edema 03/02/2017 Cardiovascular No exercise intolerance 03/02/2017 Cardiovascular No fatigue 03/02/2017 Cardiovascular No near-syncope/dizziness 03/02/2017 Respiratory No chest tightness 03/02/2017 Respiratory No cough 03/02/2017 Respiratory No dyspnea 03/02/2017 Respiratory No pedal edema 03/02/2017 Gastrointestinal abdominal pain 03/02/2017 Gastrointestinal constipation 03/02/2017 Gastrointestinal No diarrhea 03/02/2017 Gastrointestinal No gastroesophageal reflux 03/02/2017 Gastrointestinal No nausea 03/02/2017 Gastrointestinal No vomiting 03/02/2017 Genitourinary/Nephrology No dysuria 03/02/2017 Genitourinary/Nephrology No nocturia 03/02/2017 Genitourinary/Nephrology No urinary incontinence 03/02/2017 Musculoskeletal stiffness 03/02/2017 Musculoskeletal No swelling 03/02/2017 Musculoskeletal arthralgia(s) 03/02/2017 Musculoskeletal muscle weakness 03/02/2017 Musculoskeletal No myalgias 03/02/2017 Dermatologic No rash 03/02/2017 Dermatologic No sores 03/02/2017 Dermatologic No scar 03/02/2017 Neurologic dizziness 03/02/2017 Neurologic dyskinesia or tremor 03/02/2017 Neurologic gait abnormality 03/02/2017 Neurologic No headache 03/02/2017 Neurologic No neck pain 03/02/2017 Neurologic No syncope 03/02/2017 Psychiatric No anxiety 03/02/2017 Psychiatric No depression 03/02/2017 Neurologic weakness 03/02/2017 Constitutional No recent illness 08/30/2016 Constitutional No chills 08/30/2016 Constitutional fatigue 08/30/2016 Constitutional No fever 08/30/2016 Constitutional No insomnia 08/30/2016 Constitutional malaise 08/30/2016 Eyes No blindness 08/30/2016 Eyes No vision change 08/30/2016 Ears/Nose/Throat/Neck No dizziness 08/30/2016 Ears/Nose/Throat/Neck No dysphagia 08/30/2016 Ears/Nose/Throat/Neck No headache 08/30/2016 Ears/Nose/Throat/Neck No hearing loss 08/30/2016 Ears/Nose/Throat/Neck No nasal allergies 08/30/2016 Ears/Nose/Throat/Neck No sore throat 08/30/2016 Ears/Nose/Throat/Neck No postnasal drip 08/30/2016 Ears/Nose/Throat/Neck No sinus congestion 08/30/2016 Cardiovascular No chest pain/pressure 08/30/2016 Cardiovascular No dyspnea 08/30/2016 Cardiovascular No edema 08/30/2016 Cardiovascular No exercise intolerance 08/30/2016 Cardiovascular No fatigue 08/30/2016 Cardiovascular No near-syncope/dizziness 08/30/2016 Respiratory No chest tightness 08/30/2016 Respiratory No cough 08/30/2016 Respiratory No dyspnea 08/30/2016 Respiratory No pedal edema 08/30/2016 Gastrointestinal No abdominal pain 08/30/2016 Gastrointestinal No constipation 08/30/2016 Gastrointestinal No diarrhea 08/30/2016 Gastrointestinal No gastroesophageal reflux 08/30/2016 Gastrointestinal No nausea 08/30/2016 Gastrointestinal No vomiting 08/30/2016 Genitourinary/Nephrology No dysuria 08/30/2016 Genitourinary/Nephrology No nocturia 08/30/2016 Genitourinary/Nephrology No urinary incontinence 08/30/2016 Musculoskeletal stiffness 08/30/2016 Musculoskeletal No swelling 08/30/2016 Musculoskeletal arthralgia(s) 08/30/2016 Musculoskeletal muscle weakness 08/30/2016 Musculoskeletal No myalgias 08/30/2016 Dermatologic No rash 08/30/2016 Dermatologic No sores 08/30/2016 Dermatologic No scar 08/30/2016 Neurologic No dizziness 08/30/2016 Neurologic dyskinesia or tremor 08/30/2016 Neurologic gait abnormality 08/30/2016 Neurologic No headache 08/30/2016 Neurologic No neck pain 08/30/2016 Neurologic No syncope 08/30/2016 Psychiatric No anxiety 08/30/2016 Psychiatric No depression 08/30/2016 Constitutional No recent illness 08/11/2016 Constitutional No fever 08/11/2016 Eyes No eye erythema 08/11/2016 Ears/Nose/Throat/Neck No nasal discharge 08/11/2016 Ears/Nose/Throat/Neck No nasal allergies 08/11/2016 Cardiovascular No chest pain/pressure 08/11/2016 Respiratory No cough 08/11/2016 Musculoskeletal back pain 08/11/2016 Dermatologic erythema 08/11/2016 Neurologic No alteration of consciousness 08/11/2016 Neurologic No mental status change 08/11/2016 Constitutional No recent illness 06/01/2016 Constitutional No chills 06/01/2016 Constitutional No diaphoresis 06/01/2016 Constitutional No fever 06/01/2016 Eyes No eye erythema 06/01/2016 Ears/Nose/Throat/Neck No nasal allergies 06/01/2016 Ears/Nose/Throat/Neck No nasal discharge 06/01/2016 Ears/Nose/Throat/Neck No postnasal drip 06/01/2016 Cardiovascular No chest pain/pressure 06/01/2016 Cardiovascular No dyspnea 06/01/2016 Respiratory No chest congestion 06/01/2016 Respiratory No cough 06/01/2016 Respiratory No dyspnea 06/01/2016 Gastrointestinal No abdominal pain 06/01/2016 Gastrointestinal constipation 06/01/2016 Gastrointestinal No diarrhea 06/01/2016 Gastrointestinal No nausea 06/01/2016 Gastrointestinal No vomiting 06/01/2016 Musculoskeletal No joint complaint 06/01/2016 Dermatologic No rash 06/01/2016 Neurologic No alteration of consciousness 06/01/2016 Neurologic No mental status change 06/01/2016 Constitutional recent illness 04/16/2016 Constitutional No anorexia 04/16/2016 Constitutional No night sweats 04/16/2016 Constitutional No chills 04/16/2016 Constitutional No diaphoresis 04/16/2016 Constitutional No fatigue 04/16/2016 Constitutional No fever 04/16/2016 Constitutional No insomnia 04/16/2016 Constitutional No malaise 04/16/2016 Constitutional No weight loss 04/16/2016 Constitutional No weight gain 04/16/2016 Eyes No eye erythema 04/16/2016 Eyes No eye discharge 04/16/2016 Ears/Nose/Throat/Neck No dental pain 04/16/2016 Ears/Nose/Throat/Neck No headache 04/16/2016 Respiratory No cough 04/16/2016 Gastrointestinal No abdominal pain 04/16/2016 Gastrointestinal constipation 04/16/2016 Gastrointestinal No diarrhea 04/16/2016 Genitourinary/Nephrology dysuria 04/16/2016 Dermatologic No rash 04/16/2016 Dermatologic No sores 04/16/2016 Constitutional No recent illness 02/10/2016 Constitutional No chills 02/10/2016 Constitutional fatigue 02/10/2016 Constitutional No fever 02/10/2016 Constitutional No insomnia 02/10/2016 Constitutional malaise 02/10/2016 Eyes No blindness 02/10/2016 Eyes No vision change 02/10/2016 Ears/Nose/Throat/Neck No dizziness 02/10/2016 Ears/Nose/Throat/Neck No dysphagia 02/10/2016 Ears/Nose/Throat/Neck No headache 02/10/2016 Ears/Nose/Throat/Neck No hearing loss 02/10/2016 Ears/Nose/Throat/Neck No nasal allergies 02/10/2016 Ears/Nose/Throat/Neck No sore throat 02/10/2016 Ears/Nose/Throat/Neck No postnasal drip 02/10/2016 Ears/Nose/Throat/Neck No sinus congestion 02/10/2016 Cardiovascular No chest pain/pressure 02/10/2016 Cardiovascular No dyspnea 02/10/2016 Cardiovascular No edema 02/10/2016 Cardiovascular No exercise intolerance 02/10/2016 Cardiovascular No fatigue 02/10/2016 Cardiovascular No near-syncope/dizziness 02/10/2016 Respiratory No chest tightness 02/10/2016 Respiratory No cough 02/10/2016 Respiratory No dyspnea 02/10/2016 Respiratory No pedal edema 02/10/2016 Gastrointestinal No abdominal pain 02/10/2016 Gastrointestinal No constipation 02/10/2016 Gastrointestinal No diarrhea 02/10/2016 Gastrointestinal No gastroesophageal reflux 02/10/2016 Gastrointestinal No nausea 02/10/2016 Gastrointestinal No vomiting 02/10/2016 Genitourinary/Nephrology No dysuria 02/10/2016 Genitourinary/Nephrology No nocturia 02/10/2016 Genitourinary/Nephrology No urinary incontinence 02/10/2016 Musculoskeletal stiffness 02/10/2016 Musculoskeletal No swelling 02/10/2016 Musculoskeletal muscle weakness 02/10/2016 Musculoskeletal No myalgias 02/10/2016 Dermatologic No rash 02/10/2016 Dermatologic No sores 02/10/2016 Dermatologic No scar 02/10/2016 Neurologic No dizziness 02/10/2016 Neurologic No headache 02/10/2016 Neurologic No neck pain 02/10/2016 Neurologic No syncope 02/10/2016 Psychiatric No anxiety 02/10/2016 Psychiatric No depression 02/10/2016 Neurologic dyskinesia or tremor 02/10/2016 Neurologic gait abnormality 02/10/2016 Musculoskeletal arthralgia(s) 02/10/2016 Physical Exam Exam Name System Name Item Name Status Result Effective Dates Notes Full Exam - General 1994 Constitutional general appearance Overall: well developed 09/12/2018 None Full Exam - General 1994 Constitutional general appearance Overall: in no acute distress 09/12/2018 None Full Exam - General 1994 Constitutional general appearance Overall: well nourished 09/12/2018 None Full Exam - General 1994 Eyes conjunctiva/eyelids Overall: conjunctiva clear 09/12/2018 None Full Exam - General 1994 Eyes conjunctiva/eyelids Overall: eyelids normal 09/12/2018 None Full Exam - General 1994 Ears/Nose/Throat lips/teeth/gingiva Overall: benign lips 09/12/2018 None Full Exam - General 1994 Respiratory respiratory effort/rhythm Overall: no retractions 09/12/2018 None Full Exam - General 1994 Respiratory respiratory effort/rhythm Overall: normal rate 09/12/2018 None Full Exam - General 1994 Cardiovascular auscultation of heart Overall: regular rate 09/12/2018 None Full Exam - General 1994 Cardiovascular auscultation of heart Overall: normal heart sounds 09/12/2018 None Full Exam - General 1994 Cardiovascular auscultation of heart Overall: no murmurs 09/12/2018 None Full Exam - General 1994 Abdomen abdominal exam Overall: no tenderness 09/12/2018 None Full Exam - General 1994 Abdomen abdominal exam Overall: normal bowel sounds 09/12/2018 None Full Exam - General 1994 Psychiatric orientation/consciousness Overall: oriented to person, place and time 09/12/2018 None Full Exam - General 1994 Psychiatric mood and affect Overall: normal mood and affect 09/12/2018 None Full Exam - General 1994 Psychiatric appearance Overall: well-groomed, good eye contact 09/12/2018 None Full Exam - General 1994 Constitutional general appearance Overall: well developed 08/21/2018 None Full Exam - General 1994 Constitutional general appearance Overall: in no acute distress 08/21/2018 None Full Exam - General 1994 Constitutional general appearance Overall: well nourished 08/21/2018 None Full Exam - General 1994 Eyes conjunctiva/eyelids Overall: conjunctiva clear 08/21/2018 None Full Exam - General 1994 Eyes conjunctiva/eyelids Overall: eyelids normal 08/21/2018 None Full Exam - General 1994 Ears/Nose/Throat lips/teeth/gingiva Overall: benign lips 08/21/2018 None Full Exam - General 1994 Respiratory respiratory effort/rhythm Overall: no retractions 08/21/2018 None Full Exam - General 1994 Respiratory respiratory effort/rhythm Overall: normal rate 08/21/2018 None Full Exam - General 1994 Cardiovascular auscultation of heart Overall: regular rate 08/21/2018 None Full Exam - General 1994 Cardiovascular auscultation of heart Overall: normal heart sounds 08/21/2018 None Full Exam - General 1994 Cardiovascular auscultation of heart Overall: no murmurs 08/21/2018 None Full Exam - General 1994 Abdomen abdominal exam Overall: no tenderness 08/21/2018 None Full Exam - General 1994 Abdomen abdominal exam Overall: normal bowel sounds 08/21/2018 None Full Exam - General 1994 Musculoskeletal head and neck Overall: head atraumatic 08/21/2018 None Full Exam - General 1994 Neurologic cranial nerves Overall: crainial nerves 2 - 12 grossly intact 08/21/2018 None Full Exam - General 1994 Psychiatric orientation/consciousness Overall: oriented to person, place and time 08/21/2018 None Full Exam - General 1994 Psychiatric mood and affect Overall: normal mood and affect 08/21/2018 None Full Exam - General 1994 Psychiatric appearance Overall: well-groomed, good eye contact 08/21/2018 None Full Exam - ENT Constitutional general appearance Overall: well nourished 07/20/2018 None Full Exam - ENT Constitutional general appearance Overall: well developed 07/20/2018 None Full Exam - ENT Constitutional general appearance Overall: in no acute distress 07/20/2018 None Full Exam - ENT Ears/Nose/Throat otoscopic exam Overall: external auditory canals normal 07/20/2018 None Full Exam - ENT Ears/Nose/Throat otoscopic exam Overall: tympanic membranes normal 07/20/2018 None Full Exam - ENT Ears/Nose/Throat oropharynx Overall: oral mucosa clear 07/20/2018 None Full Exam - ENT Face and Head palpation Overall: no sinus tenderness 07/20/2018 None Full Exam - ENT Respiratory inspection Overall: no retractions 07/20/2018 None Full Exam - ENT Respiratory inspection Overall: normal rate 07/20/2018 None Full Exam - ENT Respiratory auscultation Overall: breath sounds clear bilaterally 07/20/2018 None Full Exam - ENT Cardiovascular auscultation of heart Overall: regular rate 07/20/2018 None Full Exam - ENT Cardiovascular auscultation of heart Overall: normal heart sounds 07/20/2018 None Full Exam - ENT Lymphatic palpation of lymph nodes Overall: anterior cervical chain benign 07/20/2018 None Full Exam - ENT Lymphatic palpation of lymph nodes Overall: posterior cervical chain benign 07/20/2018 None Full Exam - ENT Integument inspection of skin Overall: no rash, lesions 07/20/2018 None Full Exam - ENT Neurologic orientation Overall: oriented to person, place and time 07/20/2018 None Full Exam - Cardiology Psychiatric orientation/consciousness Overall: oriented to person, place and time 07/20/2018 None Full Exam - Cardiology Psychiatric orientation/consciousness Level of consciousness: alert 07/20/2018 None Full Exam - ENT Constitutional general [...] - ENT Respiratory inspection Overall: normal rate 07/07/2018 None Full Exam - ENT Respiratory [...] None Full Exam - General 1994 Eyes conjunctiva/eyelids Overall: conjunctiva clear 05/22/2018 None Full Exam - General 1994 Eyes conjunctiva/eyelids Overall: eyelids normal 05/22/2018 None Full Exam [...] None Full Exam - General 1994 Eyes conjunctiva/eyelids Overall: conjunctiva clear 04/04/2018 None Full Exam - General 1994 Eyes conjunctiva/eyelids Overall: cornea clear 04/04/2018 None Full Exam - General 1994 Eyes conjunctiva/eyelids Overall: eyelids normal 04/04/2018 None Full Exam [...] None Full Exam - General 1994 Eyes conjunctiva/eyelids Overall: conjunctiva clear 02/16/2018 None Full Exam - General 1994 Eyes conjunctiva/eyelids Overall: eyelids normal 02/16/2018 None Full Exam [...] None Full Exam - General 1994 Eyes conjunctiva/eyelids Overall: conjunctiva clear 12/30/2017 None Full Exam - General 1994 Eyes conjunctiva/eyelids Overall: eyelids normal 12/30/2017 None Full Exam [...] None Full Exam - General 1994 Eyes conjunctiva/eyelids Overall: conjunctiva clear 10/13/2017 None Full Exam - General 1994 Eyes conjunctiva/eyelids Overall: eyelids normal 10/13/2017 None Full Exam [...] None Full Exam - General 1994 Eyes conjunctiva/eyelids Overall: conjunctiva clear 07/12/2017 None Full Exam - General 1994 Eyes conjunctiva/eyelids Overall: cornea clear 07/12/2017 None Full Exam - General 1994 Eyes conjunctiva/eyelids Overall: eyelids normal 07/12/2017 None Full Exam [...] None Full Exam - General 1994 Eyes conjunctiva/eyelids Overall: conjunctiva clear 06/07/2017 None Full Exam - General 1994 Eyes conjunctiva/eyelids Overall: eyelids normal 06/07/2017 None Full Exam [...] None Full Exam - General 1994 Eyes conjunctiva/eyelids Overall: conjunctiva clear 05/24/2017 None Full Exam - General 1994 Eyes conjunctiva/eyelids Overall: cornea clear 05/24/2017 None Full Exam - General 1994 Eyes conjunctiva/eyelids Overall: eyelids normal 05/24/2017 None Full Exam [...] None Full Exam - General 1994 Eyes conjunctiva/eyelids Overall: conjunctiva clear 04/27/2017 None Full Exam - General 1994 Eyes conjunctiva/eyelids Overall: cornea clear 04/27/2017 None Full Exam - General 1994 Eyes conjunctiva/eyelids Overall: eyelids normal 04/27/2017 None Full Exam [...] None Full Exam - General 1994 Eyes conjunctiva/eyelids Overall: conjunctiva clear 04/13/2017 None Full Exam - General 1994 Eyes conjunctiva/eyelids Overall: cornea clear 04/13/2017 None Full Exam - General 1994 Eyes conjunctiva/eyelids Overall: eyelids normal 04/13/2017 None Full Exam [...] None Full Exam - General 1994 Eyes conjunctiva/eyelids Overall: conjunctiva clear 03/30/2017 None Full Exam - General 1994 Eyes conjunctiva/eyelids Overall: cornea clear 03/30/2017 None Full Exam - General 1994 Eyes conjunctiva/eyelids Overall: eyelids normal 03/30/2017 None Full Exam [...] None Full Exam - General 1994 Eyes conjunctiva/eyelids Overall: conjunctiva clear 03/02/2017 None Full Exam - General 1994 Eyes conjunctiva/eyelids Overall: cornea clear 03/02/2017 None Full Exam - General 1994 Eyes conjunctiva/eyelids Overall: eyelids normal 03/02/2017 None Full Exam [...] None Full Exam - General 1994 Eyes conjunctiva/eyelids Overall: conjunctiva clear 08/30/2016 None Full Exam - General 1994 Eyes conjunctiva/eyelids Overall: cornea clear 08/30/2016 None Full Exam - General 1994 Eyes conjunctiva/eyelids Overall: eyelids normal 08/30/2016 None Full Exam [...] None Full Exam - General 1994 Eyes conjunctiva/eyelids Overall: conjunctiva clear 08/11/2016 None Full Exam - General 1994 Eyes conjunctiva/eyelids Overall: eyelids normal 08/11/2016 None Full Exam [...] None Full Exam - General 1994 Eyes conjunctiva/eyelids Overall: conjunctiva clear 06/01/2016 None Full Exam - General 1994 Eyes conjunctiva/eyelids Overall: eyelids normal 06/01/2016 None Full Exam [...] None Full Exam - General 1994 Eyes conjunctiva/eyelids Overall: conjunctiva clear 04/16/2016 None Full Exam - General 1994 Eyes conjunctiva/eyelids Overall: cornea clear 04/16/2016 None Full Exam - General 1994 Eyes conjunctiva/eyelids Overall: eyelids normal 04/16/2016 None Full Exam [...] None Full Exam - General 1994 Eyes conjunctiva/eyelids Overall: conjunctiva clear 02/10/2016 None Full Exam - General 1994 Eyes conjunctiva/eyelids Overall: cornea clear 02/10/2016 None Full Exam - General 1994 Eyes conjunctiva/eyelids Overall: eyelids normal 02/10/2016 None Full Exam [...] Codes Date URINALYSIS NONAUTO W/O SCOPE CPT-4: 80709 09/14/2018 URINALYSIS NONAUTO W/O SCOPE CPT-4: 53041 08/07/2018 URINALYSIS NONAUTO W/O SCOPE CPT-4: 51929 06/12/2018 URINALYSIS NONAUTO W/O SCOPE CPT-4: 46248 02/16/2018 URINALYSIS NONAUTO W/O SCOPE CPT-4: 51235 11/14/2017 PPPS, SUBSEQ VISIT CPT- 4: G0439 06/07/2017 URINALYSIS NONAUTO W/O SCOPE CPT-4: 44012 05/02/2017 URINALYSIS NONAUTO W/O SCOPE CPT-4: 74148 04/26/2017 PPPS, SUBSEQ VISIT CPT- 4: G0439 06/01/2016 URINALYSIS NONAUTO W/O SCOPE CPT-4: 89653 04/16/2016 URINALYSIS NONAUTO W/O SCOPE CPT-4: 39963 02/10/2016 Vital Signs Date Vital 09/12/2018 Blood Pressure 1: 106/60 Code: 8480-6 BMI: 17.5 Code: 06768-4 Heart Rate 1: 100 bpm Height: 5'5" SpO2: 97% Weight: 105 lbs 08/21/2018 Blood Pressure 1: 96/60 Code: 8480-6 Heart Rate 1: 114 bpm Height: 5'5" SpO2: 98% Weight: 07/20/2018 Blood Pressure 1: 104/60 Code: 8480-6 Heart Rate 1: 122 bpm Height: 5'5" SpO2: 94% Temperature: 36.7 (C) / 98.1 (F) Weight: 07/07/2018 Blood Pressure 1: 110/62 Code: 8480-6 BMI: 18.8 Code: 88229-6 Heart Rate 1: 67 bpm Height: 5'5" Temperature: 36.8 (C) / 98.2 (F) Weight: 113 lbs 05/22/2018 Blood Pressure 1: 112/68 Code: 8480-6 BMI: 18.6 Code: 50652-3 Heart Rate 1: 128 bpm Height: 5'5" SpO2: 98% Weight: 112 lbs 04/04/2018 Blood Pressure 1: 94/52 Code: 8480-6 Heart Rate 1: 120 bpm Height: 5'5" Respiratory Rate: 18 bpm SpO2: 98% Weight: 02/16/2018 Blood Pressure 1: 120/70 Code: 8480-6 BMI: 19.1 Code: 95856-5 Heart Rate 1: 115 bpm Height: 5'5" SpO2: 97% Weight: 115 lbs 12/30/2017 Blood Pressure 1: 100/68 Code: 8480-6 BMI: 18.3 Code: 53283-9 Heart Rate 1: 120 bpm Height: 5'5" SpO2: 94% Weight: 110 lbs 10/13/2017 Blood Pressure 1: 136/78 Code: 8480-6 BMI: 18.1 Code: 97164-0 Heart Rate 1: 126 bpm Height: 5'5" SpO2: 96% Weight: 109 lbs 07/12/2017 Blood Pressure 1: 100/56 Code: 8480-6 BMI: 18.1 Code: 58654-1 Heart Rate 1: 123 bpm Height: 5'5" SpO2: 99% Weight: 109 lbs 06/07/2017 Blood Pressure 1: 98/68 Code: 8480-6 BMI: 18.1 Code: 76382- 5 Heart Rate 1: 120 bpm Height: 5'5" SpO2: 99% Waist Measure (cm): 80 cm Weight: 109 lbs 05/24/2017 Blood Pressure 1: 104/62 Code: 8480-6 BMI: 18.1 Code: 99986-6 Heart Rate 1: 121 bpm Height: 5'5" SpO2: 97% Weight: 109 lbs 04/27/2017 Blood Pressure 1: 132/84 Code: 8480-6 BMI: 17.8 Code: 58320-0 Heart Rate 1: 129 bpm Height: 5'5" SpO2: 99% Weight: 107 lbs 04/13/2017 Blood Pressure 1: 10066 Code: 8480-6 Heart Rate 1: 120 bpm Height: 5'5" SpO2: 99% Weight: 03/30/2017 Blood Pressure 1: 112/66 Code: 8480-6 BMI: 17.8 Code: 24522-0 Heart Rate 1: 112 bpm Height: 5'5" SpO2: 98% Weight: 107 lbs 03/02/2017 Blood Pressure 1: 128/78 Code: 8480-6 BMI: 18.1 Code: 60423-9 Heart Rate 1: 86 bpm Height: 5'5" SpO2: 95% Weight: 109 lbs 08/30/2016 Blood Pressure 1: 102/60 Code: 8480-6 BMI: 18.1 Code: 39533-4 Heart Rate 1: 135 bpm Height: 5'5" SpO2: 98% Weight: 109 lbs 08/11/2016 Blood Pressure 1: 100/66 Code: 8480-6 BMI: 18.6 Code: 58482-3 Heart Rate 1: 86 bpm Height: 5'5" SpO2: 94% Weight: 112 lbs 06/01/2016 Blood Pressure 1: 126/80 Code: 8480-6 BMI: 19.0 Code: 14788-0 Heart Rate 1: 100 bpm Height: 5'5" SpO2: 98% Waist Measure (cm): 64 cm Weight: 114 lbs 04/16/2016 Blood Pressure 1: 124/80 Code: 8480-6 Heart Rate 1: 110 bpm SpO2: 97% 02/10/2016 Blood Pressure 1: 102/64 Code: 8480-6 BMI: 18.3 Code: 45205-6 Heart Rate 1: 114 bpm Height: 5'5" SpO2: 98% Weight: 110 lbs Functional Status No Functional Status data History of Present Illness Symptom Name Status Result Effective Date Notes Location diffusely 09/12/2018 None Quality both sides 09/12/2018 None Quality lower extremities 09/12/2018 None Quality chronic 09/12/2018 None Onset and Resolution ongoing 09/12/2018 None Limitation on Activities moderately limits activities 09/12/2018 None Location diffusely 08/21/2018 None Quality both sides 08/21/2018 None Quality lower extremities 08/21/2018 None Quality chronic 08/21/2018 None Onset and Resolution ongoing 08/21/2018 None Limitation on Activities moderately limits activities 08/21/2018 None _ infection 07/20/2018 None _ Other: fall 07/20/2018 None Onset of Symptom 5 days ago 07/20/2018 None Location in the throat 07/20/2018 None Quality constant 07/20/2018 None Quality hacking 07/20/2018 None Quality productive 07/20/2018 None Onset and Resolution sudden in onset 07/20/2018 None Onset of Symptom 2 weeks ago 07/20/2018 None Limitation on Activities does not limit activities 07/20/2018 None Frequency of Episodes increasing 07/20/2018 None Triggers no known associated factors 07/20/2018 None Pertinent Findings Denies chest discomfort 07/20/2018 None Pertinent Findings Denies dyspnea 07/20/2018 None Location in the throat 07/07/2018 None Quality constant 07/07/2018 None Quality dry 07/07/2018 None Onset and Resolution sudden in onset 07/07/2018 None Onset of Symptom 3 days ago 07/07/2018 None Frequency of Episodes daily 07/07/2018 None Location diffusely 07/07/2018 None Quality aching 07/07/2018 None Quality scratchy 07/07/2018 None Onset and Resolution sudden in onset 07/07/2018 None Onset of Symptom 4 days ago 07/07/2018 None Location diffusely 05/22/2018 None Quality both sides 05/22/2018 None Quality lower extremities 05/22/2018 None Onset and Resolution ongoing 05/22/2018 None Quality chronic 05/22/2018 None Pertinent Findings Denies anxiety 05/22/2018 None [...] Annual Medicare Wellness Exam Blood Pressure (self reported) low / normal (120/80) 06/07/2017 None Annual [...] Annual Medicare Wellness Exam Hemaglobin A-1C (self reported) never checked 06/07/2017 None Annual Medicare Wellness Exam Hemaglobin A-1C (self reported) don't know 06/07/2017 None Annual Medicare Wellness [...] with someone who has been drinking: no 06/07/2017 None Annual Medicare Wellness Exam Nutrition servings of fried food / high fat foods per day: 1 06/07/2017 None Annual Medicare Wellness Exam Nutrition [...] Annual Medicare Wellness Exam Blood Pressure (self reported) low / normal (120/80) 06/01/2016 None Annual [...] Annual Medicare Wellness Exam Hemaglobin A-1C (self reported) don't know 06/01/2016 None Annual [...] with someone who has been drinking: n 06/01/2016 None Annual Medicare Wellness Exam Nutrition servings of fried food / high fat foods per day: 0 06/01/2016 None Annual Medicare Wellness Exam Nutrition [...] cane or walker 02/10/2016 None Advance Directives No Advance Directive data Encounters Encounter Performer Location Codes Date ([id number]) [id number] EST. PATIENT, LEVEL III Diagnosis: Other epilepsy, not intractable, without status epilepticus[ICD10: G40.802] Diagnosis: Muscle weakness (generalized)[ICD10: M62.81] [facility] CPT-4: 39889 09/12/2018 ([id number]) 61693 EST. PATIENT, LEVEL IV Diagnosis: Unsteadiness on feet[ICD10: R26.81] Diagnosis: Other epilepsy, not intractable, without status epilepticus[ICD10: G40.802] Diagnosis: Muscle weakness (generalized)[ICD10: M62.81] Magali Zepeda MD, [facility] CPT-4: 15556 08/21/2018 ([id number]) 92331 EST. PATIENT, LEVEL III Diagnosis: Cough[ICD10: R05] Diagnosis: Other epilepsy, not intractable, without status epilepticus[ICD10: G40.802] Mishel Zepeda MD, [facility] CPT-4: 73219 07/20/2018 ([id number]) 08188 EST. PATIENT, LEVEL III Diagnosis: Cough[ICD10: R05] Diagnosis: Acute upper respiratory infection, unspecified[ICD10: J06.9] Mishel Zepeda MD, [facility] CPT-4: 45910 07/07/2018 ([id number]) 89340 EST. PATIENT, LEVEL IV Diagnosis: Unsteadiness on feet[ICD10: R26.81] Diagnosis: Other abnormalities of gait and mobility[ICD10: R26.89] Diagnosis: Mixed incontinence[ICD10: N39.46] Diagnosis: Other epilepsy, not intractable, without status epilepticus[ICD10: G40.802] Magali Zepeda MD, [facility] CPT-4: 83316 05/22/2018 ([id number]) 20176 EST. PATIENT, LEVEL III Diagnosis: Right upper quadrant abdominal rigidity[ICD10: R19.31] Diagnosis: Functional diarrhea[ICD10: K59.1] Diagnosis: Calculus of gallbladder without cholecystitis without obstruction[ICD10: K80.20] Magali Zepeda MD, [facility] CPT-4: 97414 04/04/2018 ([id number]) 29480 EST. PATIENT, LEVEL IV Diagnosis: Other epilepsy, not intractable, without status epilepticus[ICD10: G40.802] Diagnosis: Slow transit constipation[ICD10: K59.01] Diagnosis: Dysuria[ICD10: R30.0] Diagnosis: Age-related osteoporosis without current pathological fracture[ICD10: M81.0] Magali Zepeda MD, [facility] CPT-4: 83715 02/16/2018 ([id number]) 66024 EST. PATIENT, LEVEL III Diagnosis: Slow transit constipation[ICD10: K59.01] Mishel Zepeda MD, [facility] CPT-4: 85551 12/30/2017 ([id number]) 67570 EST. PATIENT, LEVEL IV Diagnosis: Other epilepsy, not intractable, without status epilepticus[ICD10: G40.802] Diagnosis: Slow transit constipation[ICD10: K59.01] Magali Zepeda MD, [facility] CPT-4: 26823 10/13/2017 ([id number]) 48795 EST. PATIENT, LEVEL III Diagnosis: Other epilepsy, not intractable, without status epilepticus[ICD10: G40.802] Diagnosis: Dysuria[ICD10: R30.0] Diagnosis: Mixed incontinence[ICD10: N39.46] Magali Zepeda MD, [facility] CPT- 4: 04446 07/12/2017 ([id number]) 00146 EST. 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 PATIENT, LEVEL III Diagnosis: Other epilepsy, not intractable, without status epilepticus[ICD10: G40.802] Magali Zepeda MD, [facility] CPT-4: 84009 04/27/2017 ([id number]) 07236 EST. 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 PATIENT, LEVEL IV Diagnosis: Calculus of gallbladder without cholecystitis without obstruction[ICD10: K80.20] Diagnosis: Benign paroxysmal vertigo, bilateral[ICD10: H81.13] Diagnosis: Slow transit constipation[ICD10: K59.01] Magali Zepeda MD [facility] CPT-4: 47274 03/02/2017 ([id number]) 39026 EST. 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 PATIENT, LEVEL IV Diagnosis: Other epilepsy, not intractable, without status epilepticus[ICD10: G40.802] Diagnosis: Low back pain[ICD10: M54.5] Diagnosis: Pressure ulcer of sacral region, stage 1[ICD10: L89.151] Windy Zepeda MD, [facility] CPT-4: 35543 08/11/2016 ([id number]) 35947 EST. PATIENT, LEVEL III Diagnosis: Urinary tract infection, site not specified[ICD10: N39.0] Diagnosis: Slow transit constipation[ICD10: K59.01] Mishel Zepeda MD, [facility] CPT-4: 04499 04/16/2016 ([id number]) OFFICE VISIT, NEW - LEVEL 4 Diagnosis: Other abnormalities of gait and mobility[ICD10: R26.89] Diagnosis: Dysuria[ICD10: R30.0] Diagnosis: Rheumatoid arthritis without rheumatoid factor, multiple sites[ICD10: M06.09] Magali Zepeda MD, [facility] CPT-4: 69381 02/10/2016 Plan of Care Planned Activity Notes Codes Status Date Appointment: Magali Zepeda WPtel: [address] [place], [place] [phone] [place] (15 min) Moderate 12/21/2018 Patient Education: Patient Medication Summary Completed 11/28/2018 Care Plan: Urinalysis Pending 11/28/2018 Care Plan: Urine Culture Pending 11/28/2018 Appointment: Lab Draw 09/14/2018 Patient Education: Patient Medication Summary Completed 09/14/2018 Visit Plan: Seizure disorder - check dilantin level - no change in current medications. Monitor symptoms. Generalized malaise - check urinalysis. 09/12/2018 App[facility]ment: [phone] [place] (15 min) Moderate 09/12/2018 Patient Education: Patient Medication Summary Completed 09/12/2018 Visit Plan: Epilepsy - discussed with patient - need to continue with current dose of dilantin - extra dose PRN for symptoms of "twitching" which is a prodrome prior to true seizure occurs. Weakness - continue with strengthening, advised increased activity in the house. - Discussed with her and the patient - he needs to buy her an elliptical to be used while seated. 08/21/2018 App[facility]ment: [phone] [place] (15 min) Moderate 08/21/2018 Patient Education: Patient Medication Summary Completed 08/21/2018 Appointment: Lab Draw 08/07/2018 Patient Education: Patient Medication Summary Completed 08/07/2018 Patient Education: Patient Medication Summary Completed 08/03/2018 Visit Plan: Seizures -increase dilantin -repeat dilantin level in 1 week [id number] cefdinir-finish abx and let us know if your symptoms do not resolve or if any worse 07/20/2018 [phone] [phone] [place] (15 min) Moderate 07/20/2018 Patient Education: Patient Medication Summary Completed 07/20/2018 Visit Plan: URI -viral- Pt advised to increase fluids, vitamin C. Discussed natural and expected course of this diagnosis and need to alert me if symptoms do not follow expected course, or if any worse. RX sent to patient's pharmacy to start if needed. 07/07/2018 App[facility]ment: [phone] [phone] [place] (30 min) Complex 07/07/2018 Patient Education: Patient Medication Summary Completed 07/07/2018 Appointment: Magali Zepeda WPtel: [phone] [facility] [place] (15 min) Moderate 07/03/2018 Appointment: Lab Draw [...] the house. 05/22/2018 Appointment: Magali Zepeda WPtel: [phone] [facility] [place] (15 min) Moderate 05/22/2018 Patient Education: Patient Medication Summary Completed 05/22/2018 Appointment: Magali Zepeda WPtel: [phone] [facility] [place] (15 min) Moderate 05/15/2018 Visit Plan: [...] of gallbladder. 04/04/2018 Appointment: [phone] [place] ([facility] [place]) Moderate 04/04/2018 Patient [...] supportive care. 02/16/2018 Appointment: Magali Zepeda WPtel: [phone] [facility] (15 min) Moderate 02/16/2018 Patient Education: Patient [...] Appointment: Mishel Wilson WPtel: [phone] [facility] [phone] [place] (30 min) Complex 12/30/2017 Patient Education: [...] regimen. 10/13/2017 Appointment: Magali Zepeda WPtel: [phone] [facility] [place] (15 min) Moderate 10/13/2017 Patient Education: Patient Medication Summary Completed 10/13/2017 Appointment: Magali Zepeda WPtel: [phone] [facility] [place] (15 min) Moderate 10/06/2017 Appointment: Lab [...] accident 07/12/2017 App[facility]ment: [phone] [place] ([facility] [place]) Moderate 07/12/2017 Patient Education: Patient Medication Summary Completed 07/12/2017 App[facility]: [phone] (15 min) Moderate 07/05/2017 Visit Plan: [...] care surrogate. 06/07/2017 Appointment: Windy Greco WPtel: [facility] [address] [facility] - Annual Wellness Visit 06/07/2017 Patient [...] per week. 05/24/2017 Appointment: Magali Zepeda WPtel: [facility] (15 min) Moderate 05/24/2017 Patient Education: Patient Medication Summary Completed 05/24/2017 Appointment: Magali Zepeda WPtel: [facility] (15 min) Moderate 05/11/2017 Visit Plan: UTI [...] a week) 04/27/2017 Appointment: Mag[facility]epeda WPtel[facility] ([facility]) Moderate 04/27/2017 Patient Education: [...] symptoms. 04/13/2017 Appointment: [phone] [facility] [place] (15 min) Moderate 04/13/2017 Patient [...] treatment strategy. 03/30/2017 Appointment: [phone] [facility] [place] (15 min) Moderate 03/30/2017 Patient [...] for constipation. 03/02/2017 App[facility]ment: [phone] [place] (30 min) Complex 03/02/2017 Patient Education: Patient Medication Summary Completed 03/02/2017 Visit Plan: RA and Gait abnormality -continue with current treatments - supportive care Suspect some of her movement abnormalities may be due to her lamotrigine. 08/30/2016 Appointment: Magali Zepeda WPtel: [facility] (30 min) Complex 08/30/2016 Patient Education: [...] warmth, discharge. 08/11/2016 Appointment: Windy Greco WPtel: [facility] [address] (30 min) Complex 08/11/2016 Patient Education: Patient [...] surrogate. 06/01/2016 Appointment: Windy Greco WPtel: [phone] [facility] [address] [facility] - Annual Wellness Visit [...] this regimen. 04/16/2016 Appointment: Mishel Wilson WPtel: [facility]9 [facility] [address] [place] [address] (15 min) Moderate 04/16/2016 Patient Education: Patient Medication Summary Completed 04/16/2016 Visit Plan: RA and Gait abnormality - recommended pt to have referral to physical therapy at [facility]. Suspect some of her movement abnormalities may be due to her lamotrigine. 02/10/2016 Appointment: Magali Zepeda WPtel: [facility]5 [facility] New Patient 02/10/2016 Patient Education: Patient Medication Summary Completed 02/10/2016 Instructions Comment . 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 start antibiotic if needed over the weekend . URI -viral- Pt advised to increase fluids, vitamin C. Discussed natural and expected course of this diagnosis and need to alert me if symptoms do not follow expected course, or if any worse. RX sent to patient's pharmacy to start if needed. . Seizure disorder - check dilantin level - no change in current medications. Monitor symptoms. Generalized malaise - check urinalysis. . Epilepsy - discussed with patient - need to continue with current dose of dilantin - extra dose PRN for symptoms of "twitching" which is a prodrome prior to true seizure occurs. Weakness - continue with strengthening, advised increased activity in the house. - Discussed with her and the patient - he needs to buy her an elliptical to be used while seated. increase dilantin to 100mg in morning and [...] to call if symptoms do not improve. Repeat dilantin level increase to 4/day daily except 3/day on Tuesday/ take a probiotic whiile on antibiotic . Seizures -increase dilantin -repeat dilantin level in 1 week [id number] cefdinir-finish abx and let us know if your symptoms do not resolve or if any worse . Epilepsy - chronic - pt on [...] - pt is currently getting Prolia in [place], this is a big burden for her [...] regimen. RECOMMEND PROBIOTIC-ANY BRAND IS FINE: [facility], [facility], [place] sign release for labs from [...]
[2018-12-30] MEDS ORDERED: ONDANSETRON 4 MG/2 ML (SDV) Z0FRAN ONE (22:05)
--- OUTSIDE RECORDS SUMMARY | 2018-12-30 22:06 | XMS REPORT | CCD ---
Author Author [facility] Organization [facility] Address [address] [place] [address] Phone Care Team Providers Care Male Infertility Specialist Name Role Phone PP Unavailable CCM Unavailable Summary Purpose Interface Exchange Insurance Providers Payer name Policy type / Coverage type Covered democrat ID Effective Begin Date Effective End Date WPS Medicare Part B Medicare Part B [id number] Unknown [employer] Medicare Part B [id number] Unknown Family history Sister Diagnosis Age At [...] Unknown Retired 02/10/[address]: 637967844 Never smoker 02/10/[address]: 350520011 Never drinks alcohol 02/10/2016 Has the patient [...] Start Date Stop Date Status Fill Instructions Vitamin D2 50,000 unit capsule RxNorm: 7862948 1 Capsule(s) PO QW 12/12/2018 03/05/2019 Active Vitamin D2 50,000 unit capsule RxNorm: 6384789 1 Capsule(s) PO QW 12/12/2018 12/11/2018 Inactive Bactrim DS 800 mg-160 mg tablet RxNorm: 857361 1 Tablet(s) PO BID 12/04/2018 12/13/2018 Active Bactrim DS 800 mg-160 mg tablet RxNorm: 120153 1 Tablet(s) PO BID 12/04/2018 12/03/2018 Inactive Dilantin Extended 100 mg capsule RxNorm: 663837 Capsule(s) TAKE 1 CAP TID ON Mon/Thurs AND 1 CAPSULE QID other days. if having symptoms of seizure activity, take an extra pill 10/17/2018 No Stop Date Active lamotrigine 100 mg tablet RxNorm: 344173 TAKE 1 TABLET BY MOUTH IN THE MORNING 09/29/2018 No Stop Date Active Bactrim DS 800 mg-160 mg tablet RxNorm: 820299 1 Tablet(s) PO BID 09/19/2018 09/18/2018 Inactive Bactrim DS 800 mg-160 mg tablet RxNorm: 769177 1 Tablet(s) PO BID 09/19/2018 09/25/2018 Inactive doxycycline hyclate 100 mg tablet RxNorm: 2571495 1 Tablet(s) PO BID 08/16/2018 08/15/2018 Inactive dc keflex doxycycline hyclate 100 mg tablet RxNorm: 5564816 1 Tablet(s) PO BID 08/16/2018 08/25/2018 Inactive dc keflex lamotrigine 150 mg tablet RxNorm: 197697 TAKE 1 TABLET BY MOUTH AT BEDTIME 08/14/2018 No Stop Date Active Keflex 500 mg capsule RxNorm: 055167 1 Capsule(s) PO TID and probiotic bid x7 08/14/2018 08/15/2018 Inactive Keflex 500 mg capsule RxNorm: 411212 1 Capsule(s) PO TID and probiotic bid x7 08/14/2018 08/13/2018 Inactive Zithromax Z-Escobar 250 mg tablet RxNorm: 673059 2 po on first dose and 1 daily Tablet(s) PO 07/27/2018 08/20/2018 Inactive zpack x 1 Mucinex 600 mg tablet, extended release RxNorm: 114986 1 Tablet(s) PO BID 07/27/2018 07/26/2018 Inactive Mucinex 600 mg tablet, extended release RxNorm: 930774 1 Tablet(s) PO BID 07/27/2018 08/09/2018 Inactive Dilantin Extended 100 mg capsule RxNorm: 952974 Capsule(s) TAKE 1 CAP TID ON Tue/ AND 1 CAPSULE QID other days. if having symptoms of seizure activity, take an extra pill 07/20/2018 10/16/2018 Inactive amoxicillin 500 mg tablet RxNorm: 059414 1 Tablet(s) PO TID 07/07/2018 07/13/2018 Inactive lamotrigine 100 mg tablet RxNorm: 116421 TAKE 1 TABLET BY MOUTH IN THE MORNING 07/03/2018 09/28/2018 Inactive Keflex 500 mg capsule RxNorm: 955077 1 Capsule(s) PO QID 06/12/2018 06/18/2018 Inactive please call patient to let her know she needs to [facility] rx for antibiotic Dilantin Extended 100 mg capsule RxNorm: 302569 Capsule(s) TAKE 1 CAP TID ON /TUE AND 1 CAPSULE QID ON ///SAT. if having symptoms of seizure activity, take an extra pill 05/29/2018 07/19/2018 Inactive Dilantin Extended 100 mg capsule RxNorm: 149107 Capsule(s) TAKE 1 CAP TID x2 DAYS, THEN 1 CAPSULE qid x2 DAYs, THEN REPEAT CYCLE. if having symptoms of seizure activity, take an extra pill 05/22/2018 05/28/2018 Inactive lamotrigine 150 mg tablet RxNorm: 242695 TAKE 1 TABLET BY MOUTH AT BEDTIME 04/17/2018 08/13/2018 Inactive Dilantin Extended 100 mg capsule RxNorm: 162400 TAKE 1 CAPSULE BY MOUTH THREE TIMES DAILY FOR 3 DAYS, THEN 1 CAPSULE FOUR TIMES DAILY FOR 1 DAY, THEN REPEAT CYCLE. 04/12/2018 05/21/2018 Inactive lamotrigine 100 mg tablet RxNorm: 256907 TAKE 1 TABLET BY MOUTH IN THE MORNING 03/31/2018 07/02/2018 Inactive dicyclomine 10 mg capsule RxNorm: 088632 TAKE ONE CAPSULE BY MOUTH TWICE DAILY NEEDED 02/20/2018 No Stop Date Active Keflex 500 mg capsule RxNorm: 590755 1 Capsule(s) PO QID 02/16/2018 02/22/2018 Inactive please call patient to let her know she needs to [facility]ling [facility] operator rx for antibiotic Penlac 8 % topical solution RxNorm: 176794 1 Application TOP daily clean off every 7 days and restart application process 02/16/2018 09/13/2018 Inactive ok to dispense generic Dilantin Extended 100 mg capsule RxNorm: 556746 Capsule(s) PO UD 1 cap TID x 3 days then 1 cap qid x 1 day then repeat cycle 12/15/2017 04/11/2018 Inactive give 1 month supply lamotrigine 150 mg tablet RxNorm: 671904 1 Tablet(s) PO QHS 12/07/2017 04/05/2018 Inactive lamotrigine 100 mg tablet RxNorm: 537629 1 Tablet(s) PO QAM 12/07/2017 03/30/2018 Inactive Levaquin 500 mg tablet RxNorm: 820811 1 Tablet(s) PO daily 12/05/2017 12/11/2017 Inactive Keflex 500 mg capsule RxNorm: 364761 1 Capsule(s) PO TID 11/14/2017 11/20/2017 Inactive Keflex 500 mg capsule RxNorm: 371635 1 Capsule(s) PO TID 11/14/2017 11/13/2017 Inactive Dilantin Extended 100 mg capsule RxNorm: 638472 Capsule(s) PO UD m3pill/tue3 pill/wed 4 pill/ thur 2pill/fri 3pill/sat 4pill/sun 3 pill 10/13/2017 12/14/2017 Inactive Dilantin Extended 100 mg capsule RxNorm: 508906 Capsule(s) PO UD -Alternate 300 mg for two days in a row and then 400 mg for one day and repeat cycle 10/04/2017 10/12/2017 Inactive Augmentin 500 mg-125 mg tablet RxNorm: 673795 1 Tablet(s) PO TID 07/15/2017 07/14/2017 Inactive Augmentin 500 mg-125 mg tablet RxNorm: 252641 1 Tablet(s) PO TID 07/15/2017 07/21/2017 Inactive Dilantin Extended 100 mg capsule RxNorm: 573568 1 Capsule(s) PO daily -Alternate 300 mg and 400 mg every other day 06/07/2017 10/03/2017 Inactive Bactrim DS 800 mg-160 mg tablet RxNorm: 819966 1 Tablet(s) PO BID 05/02/2017 05/08/2017 Inactive Dilantin Extended 100 mg capsule RxNorm: 048522 1 Capsule(s) PO daily in the afternoon and 2 Capsules PO HS- Will take an additional pill if she has a lot of jerking 04/27/2017 06/06/2017 Inactive Keflex 500 mg capsule RxNorm: 272199 1 Capsule(s) PO TID 04/19/2017 04/23/2017 Inactive dicyclomine 10 mg capsule RxNorm: 304461 1 Capsule(s) PO BID as needed 03/30/2017 05/28/2017 Inactive Senna with Docusate Sodium 8.6 mg-50 mg tablet RxNorm: 084306 1 Tablet(s) PO BID as needed constipation 03/02/2017 07/29/2017 Inactive Keflex 500 mg capsule RxNorm: 015012 1 Capsule(s) PO TID 08/11/2016 08/20/2016 Inactive Levaquin 500 mg tablet RxNorm: 207389 1 Tablet(s) PO daily 04/16/2016 04/22/2016 Inactive ciprofloxacin 500 mg tablet RxNorm: 476238 1 Tablet(s) PO BID 02/10/2016 02/16/2016 Inactive prednisone 10 mg tablet RxNorm: 607056 1 Tablet(s) PO as needed for pain No Start Date Active Vitamin D3 5,000 unit tablet RxNorm: 344887 1 Tablet(s) PO daily No Start Date Active Prolia 60 mg/mL subcutaneous syringe RxNorm: 400856 1 injection SQ Q6 months No Start Date Active lamotrigine 150 mg tablet RxNorm: 750769 1 Tablet(s) PO QHS No Start Date 12/06/2017 Inactive lamotrigine 100 mg tablet RxNorm: 360529 1 Tablet(s) PO QAM No Start Date 12/06/2017 Inactive Dilantin Extended 100 mg capsule RxNorm: 426224 Capsule(s) PO TAKES FOUR CAPSULES FOR 2 DAYS, THEN THREE CAPSULES FOR 1 DAY, THEN REPEATS No Start Date 04/26/2017 Inactive Zithromax Z-Escobar 250 mg tablet RxNorm: 586330 2 po on first dose and 1 daily Tablet(s) PO No Start Date 07/26/2018 Inactive zpack x 1 Humira 20 mg/0.4 mL subcutaneous syringe kit RxNorm: 926560 1 injection SQ every 2 weeks- Prescribed [...] Code Result Date Vitamin D 25 Oh Shy0227 VITAMIN D, 25 HYDROXY 13.64 ng/mL 12/06/2018 [...] Ord7 DILANTIN 10.5 UG/ML 05/11/2018 Comp Metabolic Vhp295 NA 138 mEq/L 05/11/2018 Comp Metabolic Ybf857 K 4.0 mEq/L 05/11/2018 Comp Metabolic Xfo135 CL 100 mEq/L 05/11/2018 Comp Metabolic Vbt575 CO2 29.0 mEq/L 05/11/2018 Comp Metabolic Sjf053 ANION GAP 13 05/11/2018 Comp Metabolic Why526 GLUCOSE 84 mg/dL 05/11/2018 Comp Metabolic Ipd797 Creat 0.8 mg/dL 05/11/2018 Comp Metabolic Pza324 eGFR 77 ml/min/1.73m2 05/11/2018 Comp Metabolic Paj990 BUN 26 mg/dL 05/11/2018 Comp Metabolic Wbb219 B/C Ratio 33.3 Ratio 05/11/2018 Comp Metabolic Aio079 CALCIUM 9.1 mg/dL 05/11/2018 Comp Metabolic Lhx766 ALK PHOS 97 U/L 05/11/2018 Comp Metabolic Oat150 AST(SGOT) 14 U/L 05/11/2018 Comp Metabolic Osf118 ALT(SGPT) 7 U/L 05/11/2018 Comp Metabolic Vrx415 BILI T 0.3 mg/dL 05/11/2018 Comp Metabolic Okg480 ALBUMIN 3.6 g/dL 05/11/2018 Comp Metabolic Pxw164 TPRO 6.9 g/dL 05/11/2018 Comp Metabolic Riv101 GLOB 3.3 g/dL 05/11/2018 Comp Metabolic Cji020 A/G Ratio 1.1 Ratio 05/11/2018 Comp Metabolic Nfm498 Osmo 280 mOsmo 05/11/2018 Dilantin Ord7 DILANTIN 10.7 UG/ML 04/25/2018 Valproic Acid Cma081 VALPROIC <10 ug/ml 04/24/2018 Dilantin Ord7 DILANTIN 10.6 UG/ML 04/11/2018 Culture Urine [id number] URINE CULTURE SEE NOTES 02/20/2018 Culture Urine [id number] Continued Results 02/20/2018 Urine Culture Ucult Complete >100,000 col/ml aerobic growth sent to ref lab 02/17/2018 Dilantin Ord7 DILANTIN 14.4 UG/ML 02/16/2018 Comp Metabolic Vin917 NA 135 mEq/L 02/16/2018 Comp Metabolic Gvv848 K 3.8 mEq/L 02/16/2018 Comp Metabolic Fbd203 CL 99 mEq/L 02/16/2018 Comp Metabolic Vvs401 CO2 28.0 mEq/L 02/16/2018 Comp Metabolic Eis964 ANION GAP 12 02/16/2018 Comp Metabolic Krd785 GLUCOSE 101 mg/dL 02/16/2018 Comp Metabolic Ofp136 Creat 0.8 mg/dL 02/16/2018 Comp Metabolic Hpg716 eGFR 75 ml/min/1.73m2 02/16/2018 Comp Metabolic Czd609 BUN 20 mg/dL 02/16/2018 Comp Metabolic Osi524 B/C Ratio 25.0 Ratio 02/16/2018 Comp Metabolic Cqz678 CALCIUM 8.9 mg/dL 02/16/2018 Comp Metabolic Aji677 ALK PHOS 95 U/L 02/16/2018 Comp Metabolic Qwu650 AST(SGOT) 13 U/L 02/16/2018 Comp Metabolic Wty844 ALT(SGPT) 7 U/L 02/16/2018 Comp Metabolic Gqp366 BILI T 0.4 mg/dL 02/16/2018 Comp Metabolic Pwz085 ALBUMIN 3.6 g/dL 02/16/2018 Comp Metabolic Dod866 TPRO 7.2 g/dL 02/16/2018 Comp Metabolic Hqe483 GLOB 3.6 g/dL 02/16/2018 Comp Metabolic Lvn031 A/G Ratio 1.0 Ratio 02/16/2018 Comp Metabolic Nfa499 Osmo 273 mOsmo 02/16/2018 Urine Culture Ucult Complete >100,000 col/ml aerobic growth sent to ref lab 11/15/2017 Comp Metabolic Nmx177 NA 136 mEq/L 10/13/2017 Comp Metabolic Cza455 K 4.0 mEq/L 10/13/2017 Comp Metabolic Zwh768 CL 98 mEq/L 10/13/2017 Comp Metabolic Urg640 CO2 28.0 mEq/L 10/13/2017 Comp Metabolic Vnv684 ANION GAP 14 10/13/2017 Comp Metabolic Voa182 GLUCOSE 94 mg/dL 10/13/2017 Comp Metabolic Obp144 Creat 0.7 mg/dL 10/13/2017 Comp Metabolic Elu316 eGFR 82 ml/min/1.73m2 10/13/2017 Comp Metabolic Ypt358 BUN 26 mg/dL 10/13/2017 Comp Metabolic Iel069 B/C Ratio 35.1 Ratio 10/13/2017 Comp Metabolic Nxs472 CALCIUM 9.1 mg/dL 10/13/2017 Comp Metabolic Yko399 ALK PHOS 98 U/L 10/13/2017 Comp Metabolic Dof563 AST(SGOT) 15 U/L 10/13/2017 Comp Metabolic Kxk923 ALT(SGPT) 8 U/L 10/13/2017 Comp Metabolic Khg574 BILI T 0.4 mg/dL 10/13/2017 Comp Metabolic Dxf157 ALBUMIN 3.7 g/dL 10/13/2017 Comp Metabolic Jys814 TPRO 7.8 g/dL 10/13/2017 Comp Metabolic Utb775 GLOB 4.1 g/dL 10/13/2017 Comp Metabolic Lys657 A/G Ratio 0.9 Ratio 10/13/2017 Comp Metabolic Zrt545 Osmo 276 mOsmo 10/13/2017 Dilantin Ord7 DILANTIN 21.4 Result Verified By Repeat Analysis UG/ML 10/13/2017 Dilantin Ord7 DILANTIN 24.1 Result Verified By Repeat Analysis UG/ML 10/03/2017 Dilantin Ord7 DILANTIN 18.1 UG/ML 06/30/2017 Dilantin Ord7 DILANTIN 22.7 UG/ML 06/16/2017 Dilantin Ord7 DILANTIN 26.1 UG/ML 06/07/2017 Dilantin Ord7 DILANTIN 24.1 UG/ML 05/24/2017 Dilantin Ord7 DILANTIN 19.6 UG/ML 05/11/2017 Culture Urine [id number] URINE CULTURE SEE NOTES 05/06/2017 Culture Urine [id number] Continued Results 05/06/2017 Urine Culture Ucult Complete >100,000 col/ml aerobic growth sent to ref lab 05/03/2017 Dilantin Ord7 DILANTIN 12.6 UG/ML 04/27/2017 Calcium Ord79 CALCIUM 9.3 mg/dL 04/19/2017 Dilantin Ord7 DILANTIN 21.6 UG/ML 04/19/2017 Dilantin Ord7 DILANTIN 10.3 UG/ML 04/13/2017 Dilantin Ord7 DILANTIN 21.9 UG/ML 04/07/2017 Comp Metabolic Bgh829 NA 137 mEq/L 03/30/2017 Comp Metabolic Kvm530 K 3.7 mEq/L 03/30/2017 Comp Metabolic Bxn186 CL 98 mEq/L 03/30/2017 Comp Metabolic Hsy940 CO2 29.0 mEq/L 03/30/2017 Comp Metabolic Lsu826 ANION GAP 14 03/30/2017 Comp Metabolic Xge156 GLUCOSE 100 mg/dL 03/30/2017 Comp Metabolic Dgs950 Creat 0.9 mg/dL 03/30/2017 Comp Metabolic Nho766 eGFR 88 ml/min/1.73m2 03/30/2017 Comp Metabolic Kkd862 BUN 22 mg/dL 03/30/2017 Comp Metabolic Zbq466 B/C Ratio 24.4 Ratio 03/30/2017 Comp Metabolic Fas765 CALCIUM 9.4 mg/dL 03/30/2017 Comp Metabolic Rva767 ALK PHOS 113 U/L 03/30/2017 Comp Metabolic Yrq779 AST(SGOT) 16 U/L 03/30/2017 Comp Metabolic Crl580 ALT(SGPT) 7 U/L 03/30/2017 Comp Metabolic Tpy302 BILI T 0.3 mg/dL 03/30/2017 Comp Metabolic Sfu948 ALBUMIN 3.9 g/dL 03/30/2017 Comp Metabolic Gfv964 TPRO 8.0 g/dL 03/30/2017 Comp Metabolic Uum868 GLOB 4.1 g/dL 03/30/2017 Comp Metabolic Ruc612 A/G Ratio 0.9 Ratio 03/30/2017 Comp Metabolic Wpt662 Osmo 277 mOsmo 03/30/2017 Lipid Ord30 CHOL 214 mg/dL 03/30/2017 Lipid Ord30 HDL 61.0 mg/dl 03/30/2017 Lipid Ord30 TRIG 130 mg/dL 03/30/2017 Lipid Ord30 LDL 127 mg/dL 03/30/2017 Lipid Ord30 C/HDL 3.5 Ratio 03/30/2017 Dilantin Ord7 DILANTIN 32.5 UG/ML 03/30/2017 Folate Ord36 Folate 16.46 ng/mL 03/30/2017 Tsh Ord6 hTSH II 0.95 uIU/mL 03/30/2017 B12 Rsx293 B12 592.00 pg/ml 03/30/2017 Cbc With Differential [...] 30.9 pg 03/30/2017 Cbc With Differential Ord2 [place]% 23.9 % 03/30/2017 Cbc With Differential Ord2 [...] 0.44 K/ul 03/30/2017 Cbc With Differential Ord2 [place] ABS# 0.3 K/ul 03/30/2017 Cbc With Differential [...] 30.3 pg 08/11/2016 Cbc With Differential Ord2 [place]% 31.7 % 08/11/2016 Cbc With Differential Ord2 [...] 0.59 K/ul 08/11/2016 Cbc With Differential Ord2 [place] ABS# 0.6 K/ul 08/11/2016 Cbc With Differential Ord2 Eos ABS# 0.0 K/ul 08/11/2016 Cbc With Differential Ord2 Baso ABS# 0.0 K/ul 08/11/2016 Dilantin Ord7 DILANTIN 17.2 UG/ML 08/11/2016 Tsh Ord6 hTSH II 0.82 uIU/mL 08/11/2016 Comp Metabolic Bdh612 NA 131 mEq/L 08/11/2016 Comp Metabolic Qwv588 K 4.1 mEq/L 08/11/2016 Comp Metabolic Rgl421 CL 93 mEq/L 08/11/2016 Comp Metabolic Yev973 CO2 29.0 mEq/L 08/11/2016 Comp Metabolic Ane654 ANION GAP 13 08/11/2016 Comp Metabolic Eon810 GLUCOSE 120 mg/dL 08/11/2016 Comp Metabolic Qqf292 Creat 0.8 mg/dL 08/11/2016 Comp Metabolic Gve924 eGFR 101 ml/min/1.73m2 08/11/2016 Comp Metabolic Ovh562 BUN 18 mg/dL 08/11/2016 Comp Metabolic Opq848 B/C Ratio 22.5 Ratio 08/11/2016 Comp Metabolic Wkp626 CALCIUM 9.5 mg/dL 08/11/2016 Comp Metabolic Ont562 ALK PHOS 104 U/L 08/11/2016 Comp Metabolic Lba111 AST(SGOT) 16 U/L 08/11/2016 Comp Metabolic Xhp460 ALT(SGPT) 8 U/L 08/11/2016 Comp Metabolic Pnk665 BILI T 0.4 mg/dL 08/11/2016 Comp Metabolic Fiu806 ALBUMIN 3.8 g/dL 08/11/2016 Comp Metabolic Gty547 TPRO 8.4 g/dL 08/11/2016 Comp Metabolic Mhl827 GLOB 4.6 g/dL 08/11/2016 Comp Metabolic Zns443 A/G Ratio 0.8 Ratio 08/11/2016 Comp Metabolic Ocb808 Osmo 266 mOsmo 08/11/2016 Culture Urine [id number] URINE CULTURE SEE NOTES 04/19/2016 Culture Urine [id number] Continued Results 04/19/2016 Urine Culture Ucult Complete >100,000 col/ml aerobic growth sent to ref lab 04/17/2016 Culture Urine [id number] URINE CULTURE SEE NOTES 02/13/2016 Culture Urine [id number] Continued Results 02/13/2016 Urine Culture Ucult Complete [...] Codes Date URINALYSIS NONAUTO W/O SCOPE CPT-4: 00942 09/14/2018 URINALYSIS NONAUTO W/O SCOPE CPT-4: 88150 08/07/2018 URINALYSIS NONAUTO W/O SCOPE CPT-4: 47943 06/12/2018 URINALYSIS NONAUTO W/O SCOPE CPT-4: 29208 02/16/2018 URINALYSIS NONAUTO W/O SCOPE CPT-4: 54985 11/14/2017 PPPS, SUBSEQ VISIT CPT- 4: G0439 06/07/2017 URINALYSIS NONAUTO W/O SCOPE CPT-4: 47800 05/02/2017 URINALYSIS NONAUTO W/O SCOPE CPT-4: 12685 04/26/2017 PPPS, SUBSEQ VISIT CPT- 4: G0439 06/01/2016 URINALYSIS NONAUTO W/O SCOPE CPT-4: 51834 04/16/2016 URINALYSIS NONAUTO W/O SCOPE CPT-4: 73905 02/10/2016 Vital Signs Date Vital 09/12/2018 Blood Pressure 1: 106/60 Code: 8480-6 BMI: 17.5 Code: 86746-8 Heart Rate 1: 100 bpm Height: 5'5" SpO2: 97% Weight: 105 lbs 08/21/2018 Blood Pressure 1: 96/60 Code: 8480-6 Heart Rate 1: 114 bpm Height: 5'5" SpO2: 98% Weight: 07/20/2018 Blood Pressure 1: 104/60 Code: 8480-6 Heart Rate 1: 122 bpm Height: 5'5" SpO2: 94% Temperature: 36.7 (C) / 98.1 (F) Weight: 07/07/2018 Blood Pressure 1: 110/62 Code: 8480-6 BMI: 18.8 Code: 74650-6 Heart Rate 1: 67 bpm Height: 5'5" Temperature: 36.8 (C) / 98.2 (F) Weight: 113 lbs 05/22/2018 Blood Pressure 1: 112/68 Code: 8480-6 BMI: 18.6 Code: 28554-3 Heart Rate 1: 128 bpm Height: 5'5" SpO2: 98% Weight: 112 lbs 04/04/2018 Blood Pressure 1: 94/52 Code: 8480-6 Heart Rate 1: 120 bpm Height: 5'5" Respiratory Rate: 18 bpm SpO2: 98% Weight: 02/16/2018 Blood Pressure 1: 120/70 Code: 8480-6 BMI: 19.1 Code: 90856-9 Heart Rate 1: 115 bpm Height: 5'5" SpO2: 97% Weight: 115 lbs 12/30/2017 Blood Pressure 1: 100/68 Code: 8480-6 BMI: 18.3 Code: 95857-8 Heart Rate 1: 120 bpm Height: 5'5" SpO2: 94% Weight: 110 lbs 10/13/2017 Blood Pressure 1: 136/78 Code: 8480-6 BMI: 18.1 Code: 89566-6 Heart Rate 1: 126 bpm Height: 5'5" SpO2: 96% Weight: 109 lbs 07/12/2017 Blood Pressure 1: 100/56 Code: 8480-6 BMI: 18.1 Code: 23967-1 Heart Rate 1: 123 bpm Height: 5'5" SpO2: 99% Weight: 109 lbs 06/07/2017 Blood Pressure 1: 98/68 Code: 8480-6 BMI: 18.1 Code: 40855- 5 Heart Rate 1: 120 bpm Height: 5'5" SpO2: 99% Waist Measure (cm): 80 cm Weight: 109 lbs 05/24/2017 Blood Pressure 1: 104/62 Code: 8480-6 BMI: 18.1 Code: 70934-0 Heart Rate 1: 121 bpm Height: 5'5" SpO2: 97% Weight: 109 lbs 04/27/2017 Blood Pressure 1: 132/84 Code: 8480-6 BMI: 17.8 Code: 48123-5 Heart Rate 1: 129 bpm Height: 5'5" SpO2: 99% Weight: 107 lbs 04/13/2017 Blood Pressure 1: 100/66 Code: 8480-6 Heart Rate 1: 120 bpm Height: 5'5" SpO2: 99% Weight: 03/30/2017 Blood Pressure 1: 112/66 Code: 8480-6 BMI: 17.8 Code: 37488-6 Heart Rate 1: 112 bpm Height: 5'5" SpO2: 98% Weight: 107 lbs 03/02/2017 Blood Pressure 1: 128/78 Code: 8480-6 BMI: 18.1 Code: 89786-2 Heart Rate 1: 86 bpm Height: 5'5" SpO2: 95% Weight: 109 lbs 08/30/2016 Blood Pressure 1: 102/60 Code: 8480-6 BMI: 18.1 Code: 96951-5 Heart Rate 1: 135 bpm Height: 5'5" SpO2: 98% Weight: 109 lbs 08/11/2016 Blood Pressure 1: 100/66 Code: 8480-6 BMI: 18.6 Code: 82831-5 Heart Rate 1: 86 bpm Height: 5'5" SpO2: 94% Weight: 112 lbs 06/01/2016 Blood Pressure 1: 126/80 Code: 8480-6 BMI: 19.0 Code: 30323-8 Heart Rate 1: 100 bpm Height: 5'5" SpO2: 98% Waist Measure (cm): 64 cm Weight: 114 lbs 04/16/2016 Blood Pressure 1: 124/80 Code: 8480-6 Heart Rate 1: 110 bpm SpO2: 97% 02/10/2016 Blood Pressure 1: 102/64 Code: 8480-6 BMI: 18.3 Code: 33454-1 Heart Rate 1: 114 bpm Height: 5'5" [...] data Encounters Encounter Performer Location Codes Date ([id number]) [id number] EST. PATIENT, LEVEL III Diagnosis: Other epilepsy, not intractable, without status epilepticus[ICD10: G40.802] Diagnosis: Muscle weakness (generalized)[ICD10: M62.81] Magali Zepeda MD, [facility] CPT-4: 89255 09/12/2018 [id number]) [id number] EST. PATIENT, LEVEL IV Diagnosis: Unsteadiness on feet[ICD10: R26.81] Diagnosis: Other epilepsy, not intractable, without status epilepticus[ICD10: G40.802] Diagnosis: Muscle weakness (generalized)[ICD10: M62.81] Magali Zepeda MD, [facility] CPT-4: 68078 08/21/2018 [id number]) [id number] EST. PATIENT, LEVEL III Diagnosis: Cough[ICD10: R05] Diagnosis: Other epilepsy, not intractable, without status epilepticus[ICD10: G40.802] Mishel Zepeda MD, [facility] CPT-4: 53548 07/20/2018 ([id number]) 38081 EST. PATIENT, LEVEL III Diagnosis: Cough[ICD10: R05] Diagnosis: Acute upper respiratory infection, unspecified[ICD10: J06.9] Mishel Zepeda MD, [facility] CPT-4: 65893 07/07/2018 ([id number]) 30926 EST. PATIENT, LEVEL IV Diagnosis: Unsteadiness on feet[ICD10: R26.81] Diagnosis: Other abnormalities of gait and mobility[ICD10: R26.89] Diagnosis: Mixed incontinence[ICD10: N39.46] Diagnosis: Other epilepsy, not intractable, without status epilepticus[ICD10: G40.802] Magali Zepeda MD, [facility] CPT-4: 45606 05/22/2018 ([id number]) 93583 EST. PATIENT, LEVEL III Diagnosis: Right upper quadrant abdominal rigidity[ICD10: R19.31] Diagnosis: Functional diarrhea[ICD10: K59.1] Diagnosis: Calculus of gallbladder without cholecystitis without obstruction[ICD10: K80.20] Magali Zepeda MD, [facility] CPT-4: 36674 04/04/2018 ([id number]) 28331 EST. PATIENT, LEVEL IV Diagnosis: Other epilepsy, not intractable, without status epilepticus[ICD10: G40.802] Diagnosis: Slow transit constipation[ICD10: K59.01] Diagnosis: Dysuria[ICD10: R30.0] Diagnosis: Age-related osteoporosis without current pathological fracture[ICD10: M81.0] Magali Zepeda MD, [facility] CPT-4: 60382 02/16/2018 ([id number]) 61538 EST. PATIENT, LEVEL III Diagnosis: Slow transit constipation[ICD10: K59.01] Mishel Zepeda MD, [facility] CPT-4: 73163 12/30/2017 ([id number]) 61045 EST. PATIENT, LEVEL IV Diagnosis: Other epilepsy, not intractable, without status epilepticus[ICD10: G40.802] Diagnosis: Slow transit constipation[ICD10: K59.01] Magali Zepeda MD, [facility] CPT-4: 34571 10/13/2017 ([id number]) 21085 EST. PATIENT, LEVEL III Diagnosis: Other epilepsy, not intractable, without status epilepticus[ICD10: G40.802] Diagnosis: Dysuria[ICD10: R30.0] Diagnosis: Mixed incontinence[ICD10: N39.46] Magali Zepeda MD, [facility] CPT- 4: 97499 07/12/2017 [id number]) 14742 EST. 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 PATIENT, LEVEL III Diagnosis: Other epilepsy, not intractable, without status epilepticus[ICD10: G40.802] Magali Zepeda MD, [facility] CPT-4: 01500 04/27/2017 [id number]) 78304 EST. 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 PATIENT, LEVEL IV Diagnosis: Calculus of gallbladder without cholecystitis without obstruction[ICD10: K80.20] Diagnosis: Benign paroxysmal vertigo, bilateral[ICD10: H81.13] Diagnosis: Slow transit constipation[ICD10: K59.01] Magali Zepeda MD, [facility] CPT-4: 83211 03/02/2017 ([id number]) [id number] EST. 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 PATIENT, LEVEL IV Diagnosis: Other epilepsy, not intractable, without status epilepticus[ICD10: G40.802] Diagnosis: Low back pain[ICD10: M54.5] Diagnosis: Pressure ulcer of sacral region, stage 1[ICD10: L89.151] Windy Zepeda MD, [facility] CPT-4: 33143 08/11/2016 ([id number]) [id number] EST. PATIENT, LEVEL III Diagnosis: Urinary tract infection, site not specified[ICD10: N39.0] Diagnosis: Slow transit constipation[ICD10: K59.01] Mishel Zepeda MD, [facility] CPT-4: 51650 04/16/2016 ([id number]) OFFICE VISIT, NEW - LEVEL 4 Diagnosis: Other abnormalities of gait and mobility[ICD10: R26.89] Diagnosis: Dysuria[ICD10: R30.0] Diagnosis: Rheumatoid arthritis without rheumatoid factor, multiple sites[ICD10: M06.09] Magali Zepeda MD, [facility] CPT-4: 23504 02/10/2016 Plan of Care Planned Activity Notes Codes Status Date Patient Education: Patient Medication Summary Completed 11/28/2018 Care Plan: Urinalysis Pending 11/28/2018 Care Plan: Urine Culture Pending 11/28/2018 Appointment: Lab Draw 09/14/2018 Patient Education: Patient Medication Summary Completed 09/14/2018 Visit Plan: Seizure disorder - check dilantin level - no change in current medications. Monitor symptoms. Generalized malaise - check urinalysis. 09/12/2018 Appointment: Magali Zepeda WPtel: [phone] [phone] (15 min) Moderate 09/12/2018 Patient Education: Patient [...] while seated. 08/21/2018 Appointment: Magali Zepeda WPtel: [facility] [place] (15 min) Moderate 08/21/2018 Patient Education: Patient Medication Summary Completed 08/21/2018 Appointment: Lab Draw 08/07/2018 Patient Education: Patient Medication Summary Completed 08/07/2018 Patient Education: Patient Medication Summary Completed 08/03/2018 Visit Plan: Seizures -increase dilantin -repeat dilantin level in 1 week [id number] cefdinir-finish abx and let us know if your symptoms do not resolve or if any worse 07/20/2018 Appointment: Mishel Wilson WPtel: [facility] [phone] [place] (15 min) Moderate 07/20/2018 Patient Education: Patient Medication Summary Completed 07/20/2018 Visit Plan: URI -viral- Pt advised to increase fluids, vitamin C. Discussed natural and expected course of this diagnosis and need to alert me if symptoms do not follow expected course, or if any worse. RX sent to patient's pharmacy to start if needed. 07/07/2018 Appointment: Mishel Wilson WPtel: [facility] [phone] [place] (30 min) Complex 07/07/2018 Patient Education: Patient Medication Summary Completed 07/07/2018 Appointment: Magali Zepeda WPtel: [phone] [place] (15 min) Moderate 07/03/2018 Appointment: Lab [...] the house. 05/22/2018 Appointment: Magali Zepeda WPtel: [phone] [place] [place] (15 min) Moderate 05/22/2018 Patient Education: Patient Medication Summary Completed 05/22/2018 Appointment: Magali Zepeda WPtel: [phone] [facility] [place] (15 min) Moderate 05/15/2018 Visit Plan: [...] post-operatively. 04/04/2018 Appointment: Magali Zepeda WPtel: [phone] [place] (15 min) Moderate 04/04/2018 Patient Education: [...] care. 02/16/2018 Appointment: Magali Zepeda WPtel: [phone] [place] (15 min) Moderate 02/16/2018 Patient Education: [...] regimen. 12/30/2017 Appointment: Mishel Wilson WPtel: [phone] [phone] (30 min) Complex 12/30/2017 Patient Education: Patient [...] this regimen. 10/13/2017 Appointment: Magali Zepeda WPtel: [facility] [place]5 [facility] [place] (15 min) Moderate 10/13/2017 Patient Education: Patient Medication Summary Completed 10/13/2017 Appointment: Magali Zepeda WPtel: [facility] [place]5 [facility] (15 min) Moderate 10/06/2017 Appointment: Lab Draw [...] on accident 07/12/2017 Appointment: Magali Zepeda WPtel: [facility]5 [facility] (15 min) Moderate 07/12/2017 Patient Education: Patient Medication Summary Completed 07/12/2017 Appointment: Magali Zepeda WPtel: [phone] [phone] (15 min) Moderate 07/05/2017 Visit Plan: Medicare [...] care surrogate. 06/07/2017 Appointment: Windy Greco WPtel: [phone] [facility] MCR - Annual Wellness Visit 06/07/2017 Patient [...] per week. 05/24/2017 Appointment: Magali Zepeda WPtel: [facility] [place]3 [facility] (15 min) Moderate 05/24/2017 Patient Education: Patient Medication Summary Completed 05/24/2017 Appointment: Magali Zepeda WPtel: [facility] [place]7 [facility] (15 min) Moderate 05/11/2017 Visit Plan: UTI [...] a week) 04/27/2017 Appointment: Magali Zepeda WPtel: [facility] [place]9 [facility] (15 min) Moderate 04/27/2017 Patient Education: Patient [...] monitor symptoms. 04/13/2017 Appointment: Magali Zepeda WPtel: [facility] [place]1 [facility] (15 min) Moderate 04/13/2017 Patient Education: Patient [...] strategy. 03/30/2017 Appointment: Magali Zepeda WPtel: [phone] [facility] [place] (15 min) Moderate 03/30/2017 Patient Education: [...] constipation. 03/02/2017 Appointment: Magali Zepeda WPtel: [phone] [facility] [place] (30 min) Complex 03/02/2017 Patient Education: Patient Medication Summary Completed 03/02/2017 Visit Plan: RA and Gait abnormality -continue with current treatments - supportive care Suspect some of her movement abnormalities may be due to her lamotrigine. 08/30/2016 Appointment: Magali Zepeda WPtel: [phone] [place] (30 min) Complex 08/30/2016 Patient Education: [...] warmth, discharge. 08/11/2016 Appointment: Windy Greco WPtel: [phone] [phone] (30 min) Complex 08/11/2016 Patient [...] care surrogate. 06/01/2016 Appointment: Windy Greco WPtel: [phone] [facility] [facility] - Annual Wellness Visit 06/01/2016 Patient [...] regimen. 04/16/2016 Appointment: Mishel Wilson WPtel: [phone] [phone] (15 min) Moderate 04/16/2016 Patient Education: Patient Medication Summary Completed 04/16/2016 Visit Plan: RA and Gait abnormality - recommended pt to have referral to physical therapy at [facility]. Suspect some of her movement abnormalities may be due to her lamotrigine. 02/10/2016 Appointment: Magali Zepeda WPtel: [phone] New Patient 02/10/2016 Patient Education: Patient Medication [...] - pt is currently getting Prolia in [place], this is a big burden for her [...] and 4 tabs 3 times per week. Repeat dilantin level increase to 4/day daily except 3/day on Tuesday/ take a probiotic whiile on antibiotic . Seizures -increase dilantin -repeat dilantin level in 1 week [id number] cefdinir-finish abx and let us know if your symptoms do not resolve or if any worse . UTI - pt with positive urinalysis - culture sent if appropriate. Antibiotic electronically prescribed to pt's pharmacy of choice. Pt to call if symptoms do not improve. . RA and Gait abnormality - recommended pt to have referral to physical therapy at [facility]. Suspect some of her movement abnormalities may [...] for therapy, monitor symptoms. . Epilepsy - discussed with patient - need to continue with current dose of dilantin - extra dose PRN for symptoms of "twitching" which is a prodrome prior to true seizure occurs. Weakness - continue with strengthening, advised increased activity in the house. - Discussed with her and the patient - he needs to buy her an elliptical to be used while seated. . Seizure disorder - check dilantin level - no change in current medications. Monitor symptoms. Generalized malaise - check urinalysis. start antibiotic if needed over the weekend [...] regimen. RECOMMEND PROBIOTIC-ANY BRAND IS FINE: [employer], ALIGN sign release for labs from DR [...]
--- NOTE | 2018-12-30 22:09 | ED Fall/Injury ---
General Chief Complaint: Trauma-Non Activation Stated Complaint: FALL Source: patient Exam Limitations: no limitations History of Present Illness Date Seen by Provider: Dec 30, 2018 Time Seen by Provider: 22:07 Initial Comments To ER per EMS from home with reports of a fall. She was walking down the hallway going to bed when she fell landing on her buttock. She has now severe left hip and thigh spasms Occurred: just prior to arrival Severity: moderate Injuries/Pain Location: lower extremity Context: unknown Loss of Consciousness: no loss of consciousness Associated Symptoms (Fall): Denies Symptoms Allergies and Home Medications Allergies Coded Allergies: No Known Drug Allergies (Unverified , 04/10/18) Home Medications Acetaminophen 500 Mg Tablet, 500 MG PO Q4H PRN for PAIN-MILD, (Reported) Cefdinir 300 Mg Capsule, 300 MG PO BID Prescribed by: JOANA WATKINS on 07/17/18 1417 Denosumab 60 Mg/1 Ml Disp.syrin, 60 MG SQ Q 6 MONTHS, (Reported) Lamotrigine 100 Mg Tablet, 100 MG PO DAILY, (Reported) Lamotrigine 150 Mg Tablet, 150 MG PO HS, (Reported) Meclizine HCl 25 Mg Tablet, 25 MG PO TID PRN for DIZZINESS, (Reported) Pantoprazole Sodium 40 Mg Tablet.dr, 40 MG PO DAILY Prescribed by: DARIA NEVAREZ on 04/16/18 1040 Phenytoin Sodium Extended 100 Mg Capsule, PO UD, (Reported) TAKES 100MG @ 1630 AND 200MG @2100 X 3 DAYS THEN TAKES 200MG @1630 AND 200MG @2100 ON THE 4TH DAY, THEN REPEAT Patient Home Medication List Home Medication List Reviewed: Yes Review of Systems Review of Systems Constitutional: see HPI Eyes: No Symptoms Reported Ears, Nose, Mouth, Throat: no symptoms reported Respiratory: no symptoms reported Cardiovascular: no symptoms reported Genitourinary: no symptoms reported Musculoskeletal: see HPI Skin: no symptoms reported Psychiatric/Neurological: No Symptoms Reported Past Sewbwco-Hqakzm-Qypvfi Hx Patient Social History 2nd Hand Smoke Exposure: No Recent Hopitalizations: No Immunizations Up To Date Tetanus Booster (TDap): Unknown PED Vaccines UTD: No Seasonal Allergies Seasonal Allergies: No Past Medical History Surgeries: Yes (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; RIGHT HIP FX/REPAIR 2009) Gallbladder, 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, Neurological, Orthopedic Respiratory: No Currently Using CPAP: No Currently Using BIPAP: No Cardiac: Yes High Cholesterol Neurological: Yes (LAST SEIZURES-04/07/18) Seizure Disorder, Vertigo Reproductive Disorders: No 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 Sexually Transmitted Disease: No HIV/AIDS: No Genitourinary: Yes Bladder Infection, UTI-Chronic Gastrointestinal: Yes Chronic Constipation, Gall Bladder Disease Musculoskeletal: Yes Rheumatoid Arthritis Endocrine: Yes (BENIGN PITUITARY ADENOMA) HEENT: No Loss of Vision: Bilateral Cancer: No Psychosocial: No Depression Integumentary: No Blood Disorders: Yes (NEUTROPENIA--NORMAL WBC 1.0-1.5) Adverse Reaction/Blood Tranf: No (N/A) Family Medical History Benign neoplasm pituitary gland and craniopharyngeal duct G8 BROTHER, Onset:Unknown Completed stroke 19 FATHER, , Onset:60 years & older 19 MOTHER, , Onset:60 years & older FH: epilepsy G8 SISTER, Onset:Unknown Physical Exam Vital Signs Capillary Refill : Height, Weight, BMI Height: 5'5.00" Weight: 113lbs. 0.0oz. 51.531277ud; 18.8 BMI Method:Stated General Appearance: WD/WN, no apparent distress, other (very anxious) HEENT: PERRL/EOMI, normal ENT inspection Respiratory: no respiratory distress, no accessory muscle use Gastrointestinal: normal bowel sounds, non tender, soft Extremities: normal capillary refill, other (limited range of motion, there is shortening and external rotation of the left hip.) Neurologic/Psychiatric: alert, normal mood/affect, oriented x 3 Skin: normal color, warm/dry Dung Coma Score Best Eye Response: (4) Open Spontaneously Best Verbal Response: (5) Oriented Best Motor Response: (6) Obeys Commands Dung Total: 15 Progress/Results/Core Measures Results/Orders Lab Results Laboratory Tests Test 12/30/18 22:06 Range/Units White Blood Count 2.1 L 4.3-11.0 10^3/uL Red Blood Count 3.83 L 4.35-5.85 10^6/uL Hemoglobin 11.7 11.5-16.0 G/DL Hematocrit 34 L 35-52 % Mean Corpuscular Volume 89 80-99 FL Mean Corpuscular Hemoglobin 31 25-34 PG Mean Corpuscular Hemoglobin Concent 34 32-36 G/DL Red Cell Distribution Width 12.6 10.0-14.5 % Platelet Count 133 130-400 10^3/uL Mean Platelet Volume 8.8 7.4-10.4 FL Neutrophils (%) (Auto) 15 L 42-75 % Lymphocytes (%) (Auto) 63 H 12-44 % Monocytes (%) (Auto) 12 0-12 % Eosinophils (%) (Auto) 10 0-10 % Basophils (%) (Auto) 1 0-10 % Neutrophils # (Auto) 0.3 L 1.8-7.8 X 10^3 Lymphocytes # (Auto) 1.3 1.0-4.0 X 10^3 Monocytes # (Auto) 0.3 0.0-1.0 X 10^3 Eosinophils # (Auto) 0.2 0.0-0.3 10^3/uL Basophils # (Auto) 0.0 0.0-0.1 10^3/uL Sodium Level 137 135-145 MMOL/L Potassium Level 3.7 3.6-5.0 MMOL/L Chloride Level 103 98-107 MMOL/L Carbon Dioxide Level 21 21-32 MMOL/L Anion Gap 13 5-14 MMOL/L Blood Urea Nitrogen 18 7-18 MG/DL Creatinine 0.87 0.60-1.30 MG/DL Estimat Glomerular Filtration Rate > 60 BUN/Creatinine Ratio 21 Glucose Level 117 H 70-105 MG/DL Calcium Level 8.3 L 8.5-10.1 MG/DL Corrected Calcium 8.7 8.5-10.1 MG/DL Magnesium Level 2.1 1.8-2.4 MG/DL Total Bilirubin 0.2 0.1-1.0 MG/DL Aspartate Amino Transf (AST/SGOT) 16 5-34 U/L Alanine Aminotransferase (ALT/SGPT) 10 0-55 U/L Alkaline Phosphatase 120 40-136 U/L Total Protein 7.0 6.4-8.2 GM/DL Albumin 3.5 3.2-4.5 GM/DL My Orders Orders - JUSTINE BULLOCK RELAY TESTER HELPER Cbc With Automated Diff (12/30/18 22:06) Magnesium (12/30/18 22:06) Comprehensive Metabolic Panel (12/30/18 22:06) Ua Culture If Indicated (12/30/18 22:06) Ed Iv/Invasive Line Start (12/30/18 22:06) Pelvis With Left Hip 2-3 Views (12/30/18 22:06) Fentanyl Injection (Sublimaze Injection (12/30/18 22:15) Ondansetron Injection (Zofran Injectio (12/30/18 22:15) Ondansetron Injection (Zofran Injectio (12/30/18 22:05) Lorazepam Injection (Ativan Injection) (12/30/18 22:30) Fentanyl Injection (Sublimaze Injection (12/30/18 22:30) Chest 1 View, Ap/Pa Only (12/30/18 22:52) Protime With Inr (12/30/18 23:00) Red Cells Leukocytes Reduced (12/30/18 23:00) Ekg Tracing (12/30/18 23:00) Type And Screen (12/30/18 23:00) Medications Given in ED Current Medications Medications Dose Ordered Sig/Edward Route Start Time Stop Time Status Last Admin Dose Admin Fentanyl Citrate 25 mcg ONCE PRN IVP 12/30/18 22:15 12/30/18 22:14 25 MCG Fentanyl Citrate 25 mcg ONCE PRN IVP 12/30/18 22:30 12/30/18 22:34 25 MCG Ondansetron HCl 4 mg ONCE ONCE IVP 12/30/18 22:15 12/30/18 22:16 DC 12/30/18 22:14 4 MG Departure Communication (Admissions) Time/Spoke to Admitting Phy: 23:[address] Terry, agrees to admit, we'll consult orthopedics. Time/Spoke to Consulting Phy: 23:[address] Varela, would like 5 pounds of [place]'s traction, nothing by mouth. Impression Primary Impression: Left displaced femoral neck fracture Disposition: ADMITTED INPATIENT Condition: Stable Admissions Decision to Admit Reason: Admit from ER (General) Decision to Admit/Date: Dec 30, 2018 Time/Decision to Admit Time: 23:07 Departure-Patient Inst. Referrals: MICHAEL LYNNE MD (PCP/Family) Primary Care Physician JUSTINE BULLOCK APRN Dec 30, 2018 22:09
--- OUTSIDE RECORDS SUMMARY | 2018-12-30 22:09 | XMS REPORT | CCD ---
Author Author Magali Zepeda Organization [facility] Address [address] [place] [address] Phone Care Team Providers Care Clay Washer Name Role Phone PP Unavailable CCM Unavailable Summary Purpose Interface Exchange Insurance Providers Payer name Policy type / Coverage type Covered republican ID Effective Begin Date Effective End Date WPS Medicare Part B Medicare Part B [id number] Unknown [employer] Medicare Part B [id number] Unknown Family history Sister Diagnosis Age At [...] Unknown Retired 02/10/[address]: 345258158 Never smoker 02/10/[address]: 424465510 Never drinks alcohol 02/10/2016 Has the patient [...] Start Date Stop Date Status Fill Instructions Bactrim DS 800 mg-160 mg tablet RxNorm: 542953 1 Tablet(s) PO BID 12/04/2018 12/13/2018 Active Bactrim DS 800 mg-160 mg tablet RxNorm: 206451 1 Tablet(s) PO BID 12/04/2018 12/03/2018 Inactive Dilantin Extended 100 mg capsule RxNorm: 473128 Capsule(s) TAKE 1 CAP TID ON Tue/ AND 1 CAPSULE QID other days. if having symptoms of seizure activity, take an extra pill 10/17/2018 No Stop Date Active lamotrigine 100 mg tablet RxNorm: 855215 TAKE 1 TABLET BY MOUTH IN THE MORNING 09/29/2018 No Stop Date Active Bactrim DS 800 mg-160 mg tablet RxNorm: 276181 1 Tablet(s) PO BID 09/19/2018 09/18/2018 Inactive Bactrim DS 800 mg-160 mg tablet RxNorm: 081306 1 Tablet(s) PO BID 09/19/2018 09/25/2018 Inactive doxycycline hyclate 100 mg tablet RxNorm: 2547153 1 Tablet(s) PO BID 08/16/2018 08/15/2018 Inactive dc keflex doxycycline hyclate 100 mg tablet RxNorm: 5028953 1 Tablet(s) PO BID 08/16/2018 08/25/2018 Inactive dc keflex lamotrigine 150 mg tablet RxNorm: 344901 TAKE 1 TABLET BY MOUTH AT BEDTIME 08/14/2018 No Stop Date Active Keflex 500 mg capsule RxNorm: 144874 1 Capsule(s) PO TID and probiotic bid x7 08/14/2018 08/15/2018 Inactive Keflex 500 mg capsule RxNorm: 370362 1 Capsule(s) PO TID and probiotic bid x7 08/14/2018 08/13/2018 Inactive Zithromax Z-Escobar 250 mg tablet RxNorm: 527566 2 po on first dose and 1 daily Tablet(s) PO 07/27/2018 08/20/2018 Inactive zpack x 1 Mucinex 600 mg tablet, extended release RxNorm: 909372 1 Tablet(s) PO BID 07/27/2018 07/26/2018 Inactive Mucinex 600 mg tablet, extended release RxNorm: 951567 1 Tablet(s) PO BID 07/27/2018 08/09/2018 Inactive Dilantin Extended 100 mg capsule RxNorm: 814368 Capsule(s) TAKE 1 CAP TID ON Tue/urs AND 1 CAPSULE QID other days. if having symptoms of seizure activity, take an extra pill 07/20/2018 10/16/2018 Inactive amoxicillin 500 mg tablet RxNorm: 651450 1 Tablet(s) PO TID 07/07/2018 07/13/2018 Inactive lamotrigine 100 mg tablet RxNorm: 777993 TAKE 1 TABLET BY MOUTH IN THE MORNING 07/03/2018 09/28/2018 Inactive Keflex 500 mg capsule RxNorm: 654810 1 Capsule(s) PO QID 06/12/2018 06/18/2018 Inactive please call patient to let her know she needs to product picker rx for antibiotic Dilantin Extended 100 mg capsule RxNorm: 455304 Capsule(s) TAKE 1 CAP TID ON /TUE AND 1 CAPSULE QID ON ///TUE. if having symptoms of seizure activity, take an extra pill 05/29/2018 07/19/2018 Inactive Dilantin Extended 100 mg capsule RxNorm: 919240 Capsule(s) TAKE 1 CAP TID x2 DAYS, THEN 1 CAPSULE qid x2 DAYs, THEN REPEAT CYCLE. if having symptoms of seizure activity, take an extra pill 05/22/2018 05/28/2018 Inactive lamotrigine 150 mg tablet RxNorm: 132655 TAKE 1 TABLET BY MOUTH AT BEDTIME 04/17/2018 08/13/2018 Inactive Dilantin Extended 100 mg capsule RxNorm: 376296 TAKE 1 CAPSULE BY MOUTH THREE TIMES DAILY FOR 3 DAYS, THEN 1 CAPSULE FOUR TIMES DAILY FOR 1 DAY, THEN REPEAT CYCLE. 04/12/2018 05/21/2018 Inactive lamotrigine 100 mg tablet RxNorm: 861817 TAKE 1 TABLET BY MOUTH IN THE MORNING 03/31/2018 07/02/2018 Inactive dicyclomine 10 mg capsule RxNorm: 379204 TAKE ONE CAPSULE BY MOUTH TWICE DAILY NEEDED 02/20/2018 No Stop Date Active Keflex 500 mg capsule RxNorm: 414692 1 Capsule(s) PO QID 02/16/2018 02/22/2018 Inactive please call patient to let her know she needs to product picker rx for antibiotic Penlac 8 % topical solution RxNorm: 386439 1 Application TOP daily clean off every 7 days and restart application process 02/16/2018 09/13/2018 Inactive ok to dispense generic Dilantin Extended 100 mg capsule RxNorm: 635175 Capsule(s) PO UD 1 cap TID x 3 days then 1 cap qid x 1 day then repeat cycle 12/15/2017 04/11/2018 Inactive give 1 month supply lamotrigine 150 mg tablet RxNorm: 132355 1 Tablet(s) PO QHS 12/07/2017 04/05/2018 Inactive lamotrigine 100 mg tablet RxNorm: 324295 1 Tablet(s) PO QAM 12/07/2017 03/30/2018 Inactive Levaquin 500 mg tablet RxNorm: 692567 1 Tablet(s) PO daily 12/05/2017 12/11/2017 Inactive Keflex 500 mg capsule RxNorm: 069348 1 Capsule(s) PO TID 11/14/2017 11/20/2017 Inactive Keflex 500 mg capsule RxNorm: 045554 1 Capsule(s) PO TID 11/14/2017 11/13/2017 Inactive Dilantin Extended 100 mg capsule RxNorm: 738359 Capsule(s) PO UD m3pill/tue3 pill/wed 4 pill/ thur 2pill/fri 3pill/sat 4pill/sun 3 pill 10/13/2017 12/14/2017 Inactive Dilantin Extended 100 mg capsule RxNorm: 294340 Capsule(s) PO UD -Alternate 300 mg for two days in a row and then 400 mg for one day and repeat cycle 10/04/2017 10/12/2017 Inactive Augmentin 500 mg-125 mg tablet RxNorm: 266800 1 Tablet(s) PO TID 07/15/2017 07/14/2017 Inactive Augmentin 500 mg-125 mg tablet RxNorm: 423766 1 Tablet(s) PO TID 07/15/2017 07/21/2017 Inactive Dilantin Extended 100 mg capsule RxNorm: 233910 1 Capsule(s) PO daily -Alternate 300 mg and 400 mg every other day 06/07/2017 10/03/2017 Inactive Bactrim DS 800 mg-160 mg tablet RxNorm: 688241 1 Tablet(s) PO BID 05/02/2017 05/08/2017 Inactive Dilantin Extended 100 mg capsule RxNorm: 205629 1 Capsule(s) PO daily in the afternoon and 2 Capsules PO HS- Will take an additional pill if she has a lot of jerking 04/27/2017 06/06/2017 Inactive Keflex 500 mg capsule RxNorm: 810614 1 Capsule(s) PO TID 04/19/2017 04/23/2017 Inactive dicyclomine 10 mg capsule RxNorm: 379138 1 Capsule(s) PO BID as needed 03/30/2017 05/28/2017 Inactive Senna with Docusate Sodium 8.6 mg-50 mg tablet RxNorm: 627070 1 Tablet(s) PO BID as needed constipation 03/02/2017 07/29/2017 Inactive Keflex 500 mg capsule RxNorm: 595768 1 Capsule(s) PO TID 08/11/2016 08/20/2016 Inactive Levaquin 500 mg tablet RxNorm: 146352 1 Tablet(s) PO daily 04/16/2016 04/22/2016 Inactive ciprofloxacin 500 mg tablet RxNorm: 066333 1 Tablet(s) PO BID 02/10/2016 02/16/2016 Inactive prednisone 10 mg tablet RxNorm: 400362 1 Tablet(s) PO as needed for pain No Start Date Active Prolia 60 mg/mL subcutaneous syringe RxNorm: 213361 1 injection SQ Q6 months No Start Date Active lamotrigine 150 mg tablet RxNorm: 940481 1 Tablet(s) PO QHS No Start Date 12/06/2017 Inactive lamotrigine 100 mg tablet RxNorm: 895669 1 Tablet(s) PO QAM No Start Date 12/06/2017 Inactive Dilantin Extended 100 mg capsule RxNorm: 474974 Capsule(s) PO TAKES FOUR CAPSULES FOR 2 DAYS, THEN THREE CAPSULES FOR 1 DAY, THEN REPEATS No Start Date 04/26/2017 Inactive Zithromax Z-Escobar 250 mg tablet RxNorm: 596990 2 po on first dose and 1 daily Tablet(s) PO No Start Date 07/26/2018 Inactive zpack x 1 Humira 20 mg/0.4 mL subcutaneous syringe kit RxNorm: 039784 1 injection SQ every 2 weeks- Prescribed [...] Code Result Date Vitamin D 25 Oh Rig1811 VITAMIN D, 25 HYDROXY 13.64 ng/mL 12/06/2018 [...] Ord7 DILANTIN 10.5 UG/ML 05/11/2018 Comp Metabolic Hnq919 NA 138 mEq/L 05/11/2018 Comp Metabolic Mmr357 K 4.0 mEq/L 05/11/2018 Comp Metabolic Iid034 CL 100 mEq/L 05/11/2018 Comp Metabolic Cjh670 CO2 29.0 mEq/L 05/11/2018 Comp Metabolic Kst334 ANION GAP 13 05/11/2018 Comp Metabolic Vzq460 GLUCOSE 84 mg/dL 05/11/2018 Comp Metabolic Rtp548 Creat 0.8 mg/dL 05/11/2018 Comp Metabolic Ibh852 eGFR 77 ml/min/1.73m2 05/11/2018 Comp Metabolic Wlv018 BUN 26 mg/dL 05/11/2018 Comp Metabolic Bli563 B/C Ratio 33.3 Ratio 05/11/2018 Comp Metabolic Fev269 CALCIUM 9.1 mg/dL 05/11/2018 Comp Metabolic Rku839 ALK PHOS 97 U/L 05/11/2018 Comp Metabolic Okr198 AST(SGOT) 14 U/L 05/11/2018 Comp Metabolic Zsc349 ALT(SGPT) 7 U/L 05/11/2018 Comp Metabolic Ycx315 BILI T 0.3 mg/dL 05/11/2018 Comp Metabolic Wzd686 ALBUMIN 3.6 g/dL 05/11/2018 Comp Metabolic Lpa364 TPRO 6.9 g/dL 05/11/2018 Comp Metabolic Oji782 GLOB 3.3 g/dL 05/11/2018 Comp Metabolic Dfr492 A/G Ratio 1.1 Ratio 05/11/2018 Comp Metabolic Kbm957 Osmo 280 mOsmo 05/11/2018 Dilantin Ord7 DILANTIN 10.7 UG/ML 04/25/2018 Valproic Acid Ttz722 VALPROIC <10 ug/ml 04/24/2018 Dilantin Ord7 DILANTIN 10.6 UG/ML 04/11/2018 Culture Urine [id number] URINE CULTURE SEE NOTES 02/20/2018 Culture Urine [id number] Continued Results 02/20/2018 Urine Culture Ucult Complete >100,000 col/ml aerobic growth sent to ref lab 02/17/2018 Dilantin Ord7 DILANTIN 14.4 UG/ML 02/16/2018 Comp Metabolic Otw694 NA 135 mEq/L 02/16/2018 Comp Metabolic Cpl997 K 3.8 mEq/L 02/16/2018 Comp Metabolic Enm986 CL 99 mEq/L 02/16/2018 Comp Metabolic Kmc353 CO2 28.0 mEq/L 02/16/2018 Comp Metabolic Zux384 ANION GAP 12 02/16/2018 Comp Metabolic Nsa888 GLUCOSE 101 mg/dL 02/16/2018 Comp Metabolic Yeb169 Creat 0.8 mg/dL 02/16/2018 Comp Metabolic Rqq485 eGFR 75 ml/min/1.73m2 02/16/2018 Comp Metabolic Fjd212 BUN 20 mg/dL 02/16/2018 Comp Metabolic Mqc422 B/C Ratio 25.0 Ratio 02/16/2018 Comp Metabolic Xmq211 CALCIUM 8.9 mg/dL 02/16/2018 Comp Metabolic Jsn056 ALK PHOS 95 U/L 02/16/2018 Comp Metabolic Wbq231 AST(SGOT) 13 U/L 02/16/2018 Comp Metabolic Uhy848 ALT(SGPT) 7 U/L 02/16/2018 Comp Metabolic Haf904 BILI T 0.4 mg/dL 02/16/2018 Comp Metabolic Lyr636 ALBUMIN 3.6 g/dL 02/16/2018 Comp Metabolic Mmu778 TPRO 7.2 g/dL 02/16/2018 Comp Metabolic Bqg385 GLOB 3.6 g/dL 02/16/2018 Comp Metabolic Bpq578 A/G Ratio 1.0 Ratio 02/16/2018 Comp Metabolic Yrj266 Osmo 273 mOsmo 02/16/2018 Urine Culture Ucult Complete >100,000 col/ml aerobic growth sent to ref lab 11/15/2017 Comp Metabolic Lfh652 NA 136 mEq/L 10/13/2017 Comp Metabolic Bur471 K 4.0 mEq/L 10/13/2017 Comp Metabolic Tig855 CL 98 mEq/L 10/13/2017 Comp Metabolic Gyt474 CO2 28.0 mEq/L 10/13/2017 Comp Metabolic Vku687 ANION GAP 14 10/13/2017 Comp Metabolic Voa047 GLUCOSE 94 mg/dL 10/13/2017 Comp Metabolic Fjg138 Creat 0.7 mg/dL 10/13/2017 Comp Metabolic Bed779 eGFR 82 ml/min/1.73m2 10/13/2017 Comp Metabolic Txd611 BUN 26 mg/dL 10/13/2017 Comp Metabolic Qdk887 B/C Ratio 35.1 Ratio 10/13/2017 Comp Metabolic Sio491 CALCIUM 9.1 mg/dL 10/13/2017 Comp Metabolic Nbv296 ALK PHOS 98 U/L 10/13/2017 Comp Metabolic Eme236 AST(SGOT) 15 U/L 10/13/2017 Comp Metabolic Lkj836 ALT(SGPT) 8 U/L 10/13/2017 Comp Metabolic Uwq206 BILI T 0.4 mg/dL 10/13/2017 Comp Metabolic Hqv508 ALBUMIN 3.7 g/dL 10/13/2017 Comp Metabolic Lnz946 TPRO 7.8 g/dL 10/13/2017 Comp Metabolic Jqh169 GLOB 4.1 g/dL 10/13/2017 Comp Metabolic Rfg827 A/G Ratio 0.9 Ratio 10/13/2017 Comp Metabolic Hbi820 Osmo 276 mOsmo 10/13/2017 Dilantin Ord7 DILANTIN 21.4 Result Verified By Repeat Analysis UG/ML 10/13/2017 Dilantin Ord7 DILANTIN 24.1 Result Verified By Repeat Analysis UG/ML 10/03/2017 Dilantin Ord7 DILANTIN 18.1 UG/ML 06/30/2017 Dilantin Ord7 DILANTIN 22.7 UG/ML 06/16/2017 Dilantin Ord7 DILANTIN 26.1 UG/ML 06/07/2017 Dilantin Ord7 DILANTIN 24.1 UG/ML 05/24/2017 Dilantin Ord7 DILANTIN 19.6 UG/ML 05/11/2017 Culture Urine [id number] URINE CULTURE SEE NOTES 05/06/2017 Culture Urine [id number] Continued Results 05/06/2017 Urine Culture Ucult Complete >100,000 col/ml aerobic growth sent to ref lab 05/03/2017 Dilantin Ord7 DILANTIN 12.6 UG/ML 04/27/2017 Calcium Ord79 CALCIUM 9.3 mg/dL 04/19/2017 Dilantin Ord7 DILANTIN 21.6 UG/ML 04/19/2017 Dilantin Ord7 DILANTIN 10.3 UG/ML 04/13/2017 Dilantin Ord7 DILANTIN 21.9 UG/ML 04/07/2017 Comp Metabolic Iqu511 NA 137 mEq/L 03/30/2017 Comp Metabolic Icy427 K 3.7 mEq/L 03/30/2017 Comp Metabolic Xbt548 CL 98 mEq/L 03/30/2017 Comp Metabolic Vll675 CO2 29.0 mEq/L 03/30/2017 Comp Metabolic Qle284 ANION GAP 14 03/30/2017 Comp Metabolic Jvy387 GLUCOSE 100 mg/dL 03/30/2017 Comp Metabolic Prj489 Creat 0.9 mg/dL 03/30/2017 Comp Metabolic Fyq655 eGFR 88 ml/min/1.73m2 03/30/2017 Comp Metabolic Exo179 BUN 22 mg/dL 03/30/2017 Comp Metabolic Uyl533 B/C Ratio 24.4 Ratio 03/30/2017 Comp Metabolic Wme096 CALCIUM 9.4 mg/dL 03/30/2017 Comp Metabolic Uwp285 ALK PHOS 113 U/L 03/30/2017 Comp Metabolic Obq606 AST(SGOT) 16 U/L 03/30/2017 Comp Metabolic Kzi621 ALT(SGPT) 7 U/L 03/30/2017 Comp Metabolic Xhb115 BILI T 0.3 mg/dL 03/30/2017 Comp Metabolic Gbf338 ALBUMIN 3.9 g/dL 03/30/2017 Comp Metabolic Uqe861 TPRO 8.0 g/dL 03/30/2017 Comp Metabolic Iog131 GLOB 4.1 g/dL 03/30/2017 Comp Metabolic Ujt348 A/G Ratio 0.9 Ratio 03/30/2017 Comp Metabolic Xyb506 Osmo 277 mOsmo 03/30/2017 Lipid Ord30 CHOL 214 mg/dL 03/30/2017 Lipid Ord30 HDL 61.0 mg/dl 03/30/2017 Lipid Ord30 TRIG 130 mg/dL 03/30/2017 Lipid Ord30 LDL 127 mg/dL 03/30/2017 Lipid Ord30 C/HDL 3.5 Ratio 03/30/2017 Dilantin Ord7 DILANTIN 32.5 UG/ML 03/30/2017 Folate Ord36 Folate 16.46 ng/mL 03/30/2017 Tsh Ord6 hTSH II 0.95 uIU/mL 03/30/2017 B12 Swd451 B12 592.00 pg/ml 03/30/2017 Cbc With Differential [...] 30.9 pg 03/30/2017 Cbc With Differential Ord2 [place]% 23.9 % 03/30/2017 Cbc With Differential Ord2 [...] 0.44 K/ul 03/30/2017 Cbc With Differential Ord2 [place] ABS# 0.3 K/ul 03/30/2017 Cbc With Differential [...] 30.3 pg 08/11/2016 Cbc With Differential Ord2 [place]% 31.7 % 08/11/2016 Cbc With Differential Ord2 [...] 0.59 K/ul 08/11/2016 Cbc With Differential Ord2 [place] ABS# 0.6 K/ul 08/11/2016 Cbc With Differential Ord2 [place] ABS# 0.0 K/ul 08/11/2016 Cbc With Differential Ord2 Baso ABS# 0.0 K/ul 08/11/2016 Dilantin Ord7 DILANTIN 17.2 UG/ML 08/11/2016 Tsh Ord6 hTSH II 0.82 uIU/mL 08/11/2016 Comp Metabolic Mrx615 NA 131 mEq/L 08/11/2016 Comp Metabolic Mvt353 K 4.1 mEq/L 08/11/2016 Comp Metabolic Pnt649 CL 93 mEq/L 08/11/2016 Comp Metabolic Rgi739 CO2 29.0 mEq/L 08/11/2016 Comp Metabolic Amr481 ANION GAP 13 08/11/2016 Comp Metabolic Spu288 GLUCOSE 120 mg/dL 08/11/2016 Comp Metabolic Xpw814 Creat 0.8 mg/dL 08/11/2016 Comp Metabolic Nuk866 eGFR 101 ml/min/1.73m2 08/11/2016 Comp Metabolic Doi165 BUN 18 mg/dL 08/11/2016 Comp Metabolic Qru730 B/C Ratio 22.5 Ratio 08/11/2016 Comp Metabolic Qyp671 CALCIUM 9.5 mg/dL 08/11/2016 Comp Metabolic Niq219 ALK PHOS 104 U/L 08/11/2016 Comp Metabolic Rmx354 AST(SGOT) 16 U/L 08/11/2016 Comp Metabolic Apv523 ALT(SGPT) 8 U/L 08/11/2016 Comp Metabolic Gcm937 BILI T 0.4 mg/dL 08/11/2016 Comp Metabolic Gbi082 ALBUMIN 3.8 g/dL 08/11/2016 Comp Metabolic Icp758 TPRO 8.4 g/dL 08/11/2016 Comp Metabolic Mvx253 GLOB 4.6 g/dL 08/11/2016 Comp Metabolic Hks586 A/G Ratio 0.8 Ratio 08/11/2016 Comp Metabolic Lhb688 Osmo 266 mOsmo 08/11/2016 Culture Urine [id number] URINE CULTURE SEE NOTES 04/19/2016 Culture Urine [id number] Continued Results 04/19/2016 Urine Culture Ucult Complete >100,000 col/ml aerobic growth sent to ref lab 04/17/2016 Culture Urine [id number] URINE CULTURE SEE NOTES 02/13/2016 Culture Urine [id number] Continued Results 02/13/2016 Urine Culture Ucult Complete [...] lesions 07/07/2018 None Full Exam - General 1995 Constitutional general appearance Overall: well developed 05/22/2018 [...] palpation 04/04/2018 None Full Exam - General 1995 Constitutional general appearance Overall: well developed 02/16/2018 [...] normal 06/07/2017 None Full Exam - General 1995 Ears/Nose/Throat lips/teeth/gingiva Overall: benign lips 06/07/2017 None [...] Codes Date URINALYSIS NONAUTO W/O SCOPE CPT-4: 87628 09/14/2018 URINALYSIS NONAUTO W/O SCOPE CPT-4: 85337 08/07/2018 URINALYSIS NONAUTO W/O SCOPE CPT-4: 72985 06/12/2018 URINALYSIS NONAUTO W/O SCOPE CPT-4: 29314 02/16/2018 URINALYSIS NONAUTO W/O SCOPE CPT-4: 46234 11/14/2017 PPPS, SUBSEQ VISIT CPT- 4: G0439 06/07/2017 URINALYSIS NONAUTO W/O SCOPE CPT-4: 27579 05/02/2017 URINALYSIS NONAUTO W/O SCOPE CPT-4: 98663 04/26/2017 PPPS, SUBSEQ VISIT CPT- 4: G0439 06/01/2016 URINALYSIS NONAUTO W/O SCOPE CPT-4: 47324 04/16/2016 URINALYSIS NONAUTO W/O SCOPE CPT-4: 47726 02/10/2016 Vital Signs Date Vital 09/12/2018 Blood Pressure 1: 106/60 Code: 8480-6 BMI: 17.5 Code: 48095-5 Heart Rate 1: 100 bpm Height: 5'5" SpO2: 97% Weight: 105 lbs 08/21/2018 Blood Pressure 1: 96/60 Code: 8480-6 Heart Rate 1: 114 bpm Height: 5'5" SpO2: 98% Weight: 07/20/2018 Blood Pressure 1: 104/60 Code: 8480-6 Heart Rate 1: 122 bpm Height: 5'5" SpO2: 94% Temperature: 36.7 (C) / 98.1 (F) Weight: 07/07/2018 Blood Pressure 1: 110/62 Code: 8480-6 BMI: 18.8 Code: 54297-5 Heart Rate 1: 67 bpm Height: 5'5" Temperature: 36.8 (C) / 98.2 (F) Weight: 113 lbs 05/22/2018 Blood Pressure 1: 112/68 Code: 8480-6 BMI: 18.6 Code: 28822-2 Heart Rate 1: 128 bpm Height: 5'5" SpO2: 98% Weight: 112 lbs 04/04/2018 Blood Pressure 1: 94/52 Code: 8480-6 Heart Rate 1: 120 bpm Height: 5'5" Respiratory Rate: 18 bpm SpO2: 98% Weight: 02/16/2018 Blood Pressure 1: 120/70 Code: 8480-6 BMI: 19.1 Code: 86583-3 Heart Rate 1: 115 bpm Height: 5'5" SpO2: 97% Weight: 115 lbs 12/30/2017 Blood Pressure 1: 100/68 Code: 8480-6 BMI: 18.3 Code: 08018-2 Heart Rate 1: 120 bpm Height: 5'5" SpO2: 94% Weight: 110 lbs 10/13/2017 Blood Pressure 1: 136/78 Code: 8480-6 BMI: 18.1 Code: 49416-2 Heart Rate 1: 126 bpm Height: 5'5" SpO2: 96% Weight: 109 lbs 07/12/2017 Blood Pressure 1: 100/56 Code: 8480-6 BMI: 18.1 Code: 43383-7 Heart Rate 1: 123 bpm Height: 5'5" SpO2: 99% Weight: 109 lbs 06/07/2017 Blood Pressure 1: 98/68 Code: 8480-6 BMI: 18.1 Code: 69356- 5 Heart Rate 1: 120 bpm Height: 5'5" SpO2: 99% Waist Measure (cm): 80 cm Weight: 109 lbs 05/24/2017 Blood Pressure 1: 104/62 Code: 8480-6 BMI: 18.1 Code: 77831-4 Heart Rate 1: 121 bpm Height: 5'5" SpO2: 97% Weight: 109 lbs 04/27/2017 Blood Pressure 1: 132/84 Code: 8480-6 BMI: 17.8 Code: 86907-8 Heart Rate 1: 129 bpm Height: 5'5" SpO2: 99% Weight: 107 lbs 04/13/2017 Blood Pressure 1: 100/66 Code: 8480-6 Heart Rate 1: 120 bpm Height: 5'5" SpO2: 99% Weight: 03/30/2017 Blood Pressure 1: 112/66 Code: 8480-6 BMI: 17.8 Code: 28855-3 Heart Rate 1: 112 bpm Height: 5'5" SpO2: 98% Weight: 107 lbs 03/02/2017 Blood Pressure 1: 128/78 Code: 8480-6 BMI: 18.1 Code: 68406-8 Heart Rate 1: 86 bpm Height: 5'5" SpO2: 95% Weight: 109 lbs 08/30/2016 Blood Pressure 1: 102/60 Code: 8480-6 BMI: 18.1 Code: 90072-2 Heart Rate 1: 135 bpm Height: 5'5" SpO2: 98% Weight: 109 lbs 08/11/2016 Blood Pressure 1: 100/66 Code: 8480-6 BMI: 18.6 Code: 90969-6 Heart Rate 1: 86 bpm Height: 5'5" SpO2: 94% Weight: 112 lbs 06/01/2016 Blood Pressure 1: 126/80 Code: 8480-6 BMI: 19.0 Code: 05191-5 Heart Rate 1: 100 bpm Height: 5'5" SpO2: 98% Waist Measure (cm): 64 cm Weight: 114 lbs 04/16/2016 Blood Pressure 1: 124/80 Code: 8480-6 Heart Rate 1: 110 bpm SpO2: 97% 02/10/2016 Blood Pressure 1: 102/64 Code: 8480-6 BMI: 18.3 Code: 22285-0 Heart Rate 1: 114 bpm Height: 5'5" [...] data Encounters Encounter Performer Location Codes Date ([id number]) [id number] EST. PATIENT, LEVEL III Diagnosis: Other epilepsy, not intractable, without status epilepticus[ICD10: G40.802] Diagnosis: Muscle weakness (generalized)[ICD10: M62.81] Magali Zepeda MD, [facility] CPT-4: 78838 09/12/2018 [id number]) 93332 EST. PATIENT, LEVEL IV Diagnosis: Unsteadiness on feet[ICD10: R26.81] Diagnosis: Other epilepsy, not intractable, without status epilepticus[ICD10: G40.802] Diagnosis: Muscle weakness (generalized)[ICD10: M62.81] Magali Zepeda MD, [facility] CPT-4: 30375 08/21/2018 [id number]) [id number] EST. PATIENT, LEVEL III Diagnosis: Cough[ICD10: R05] Diagnosis: Other epilepsy, not intractable, without status epilepticus[ICD10: G40.802] Mishel Zepeda MD, [facility] CPT-4: 94367 07/20/2018 [id number] EST. PATIENT, LEVEL III Diagnosis: Cough[ICD10: R05] Diagnosis: Acute upper respiratory infection, unspecified[ICD10: J06.9] Mishel Zepeda MD, [facility] CPT-4: 15406 07/07/2018 ([id number]) 64989 EST. PATIENT, LEVEL IV Diagnosis: Unsteadiness on feet[ICD10: R26.81] Diagnosis: Other abnormalities of gait and mobility[ICD10: R26.89] Diagnosis: Mixed incontinence[ICD10: N39.46] Diagnosis: Other epilepsy, not intractable, without status epilepticus[ICD10: G40.802] Magali Zepeda MD, [facility] CPT-4: 39462 05/22/2018 ([id number]) 90712 EST. PATIENT, LEVEL III Diagnosis: Right upper quadrant abdominal rigidity[ICD10: R19.31] Diagnosis: Functional diarrhea[ICD10: K59.1] Diagnosis: Calculus of gallbladder without cholecystitis without obstruction[ICD10: K80.20] Magali Zepeda MD, [facility] CPT-4: 33743 04/04/2018 ([id number]) 55678 EST. PATIENT, LEVEL IV Diagnosis: Other epilepsy, not intractable, without status epilepticus[ICD10: G40.802] Diagnosis: Slow transit constipation[ICD10: K59.01] Diagnosis: Dysuria[ICD10: R30.0] Diagnosis: Age-related osteoporosis without current pathological fracture[ICD10: M81.0] Magali Zepeda MD, [facility] CPT-4: 54540 02/16/2018 ([id number]) 38325 EST. PATIENT, LEVEL III Diagnosis: Slow transit constipation[ICD10: K59.01] Mishel Zepeda MD [facility] CPT-4: 47812 12/30/2017 ([id number]) 09046 EST. PATIENT, LEVEL IV Diagnosis: Other epilepsy, not intractable, without status epilepticus[ICD10: G40.802] Diagnosis: Slow transit constipation[ICD10: K59.01] Magali Zepeda MD, [facility] CPT-4: 33397 10/13/2017 ([id number]) 20055 EST. PATIENT, LEVEL III Diagnosis: Other epilepsy, not intractable, without status epilepticus[ICD10: G40.802] Diagnosis: Dysuria[ICD10: R30.0] Diagnosis: Mixed incontinence[ICD10: N39.46] Magali Zepeda MD, [facility] CPT- 4: 24753 07/12/2017 [id number]) 44384 EST. 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 PATIENT, LEVEL III Diagnosis: Other epilepsy, not intractable, without status epilepticus[ICD10: G40.802] Magali Zepeda MD, [facility] CPT-4: 58313 04/27/2017 [id number]) 71631 EST. 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 PATIENT, LEVEL IV Diagnosis: Calculus of gallbladder without cholecystitis without obstruction[ICD10: K80.20] Diagnosis: Benign paroxysmal vertigo, bilateral[ICD10: H81.13] Diagnosis: Slow transit constipation[ICD10: K59.01] Magali Zepeda MD, [facility] CPT-4: 84376 03/02/2017 [id number]) [id number] EST. 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 PATIENT, LEVEL IV Diagnosis: Other epilepsy, not intractable, without status epilepticus[ICD10: G40.802] Diagnosis: Low back pain[ICD10: M54.5] Diagnosis: Pressure ulcer of sacral region, stage 1[ICD10: L89.151] Windy Zepeda MD, [facility] CPT-4: 71178 08/11/2016 ([id number]) [id number] EST. PATIENT, LEVEL III Diagnosis: Urinary tract infection, site not specified[ICD10: N39.0] Diagnosis: Slow transit constipation[ICD10: K59.01] Mishel Zepeda MD, [facility] CPT-4: 44267 04/16/2016 ([id number]) OFFICE VISIT, NEW - LEVEL 4 Diagnosis: Other abnormalities of gait and mobility[ICD10: R26.89] Diagnosis: Dysuria[ICD10: R30.0] Diagnosis: Rheumatoid arthritis without rheumatoid factor, multiple sites[ICD10: M06.09] Magali Zepeda MD, [facility] CPT-4: 02634 02/10/2016 Plan of Care Planned Activity Notes [...] check urinalysis. 09/12/2018 Appointment: Magali Zepeda WPtel: [address] [place], [place] [phone] (15 min) Moderate 09/12/2018 Patient Education: Patient [...] while seated. 08/21/2018 Appointment: Magali Zepeda WPtel: [address] [place] [address] (15 min) Moderate 08/21/2018 Patient Education: Patient Medication Summary Completed 08/21/2018 Appointment: Lab Draw 08/07/2018 Patient Education: Patient Medication Summary Completed 08/07/2018 Patient Education: Patient Medication Summary Completed 08/03/2018 Visit Plan: Seizures -increase dilantin -repeat dilantin level in 1 week [id number] cefdinir-finish abx and let us know if your symptoms do not resolve or if any worse 07/20/2018 Appointment: Mishel Wilson WPtel: [address] [place], [place] [phone] (15 min) Moderate 07/20/2018 Patient Education: Patient Medication Summary Completed 07/20/2018 Visit Plan: URI -viral- Pt advised to increase fluids, vitamin C. Discussed natural and expected course of this diagnosis and need to alert me if symptoms do not follow expected course, or if any worse. RX sent to patient's pharmacy to start if needed. 07/07/2018 Appointment: Mishel Wilson WPtel: [address] [place], [place] [phone] (30 min) Complex 07/07/2018 Patient Education: Patient Medication Summary Completed 07/07/2018 Appointment: Magali Zepeda WPtel: [address] [place], [place] [id number] (15 min) Moderate 07/03/2018 Appointment: Lab Draw [...] the house. 05/22/2018 Appointment: Magali Zepeda WPtel: [address] [place], [place] [phone] [place] (15 min) Moderate 05/22/2018 Patient Education: Patient Medication Summary Completed 05/22/2018 Appointment: [phone] [facility] (15 min) Moderate 05/15/2018 Visit Plan: Diarrhea [...] of gallbladder. 04/04/2018 Appointment: Magali Zepeda WPtel: [facility]4 [facility] (15 min) Moderate 04/04/2018 Patient Education: Patient Medication Summary Completed 04/04/2018 Patient Education: Diarrhea Completed 04/04/2018 Visit Plan: Epilepsy - chronic - continue with current regimen - check labs. Osteoporosis - pt is currently getting Prolia in [place], this is a big burden for her - They have asked for her to be set up for prolia for at the end of may at [facility]- to call with specific date. Dysuria - UA - +leukocytes - start on keflex - rx sent to pharmacy. Chronic constipation - monitor symptoms. Continue with supportive care. 02/16/2018 Appointment: Mag[facility] Zepeda [facility]Ptel[facility] [phone] [facility] [place] (15 min) Moderate 02/16/2018 Patient Education: [...] this regimen. 12/30/2017 Appointment: Mishel Wilson WPtel: [phone] [phone] [place] [...] regimen. 10/13/2017 Appointment: Magali Zepeda WPtel: [phone] [facility] [place] (15 min) Moderate 10/13/2017 Patient Education: Patient Medication Summary Completed 10/13/2017 Appointment: Mag[facility]epeda [facility]Ptel[phone] [facility] [place] (15 min) Moderate 10/06/2017 Appointment: Lab [...] accident 07/12/2017 Appointment: Magali Zepeda WPtel: [phone] [facility] [place] (15 min) Moderate 07/12/2017 Patient Education: Patient Medication Summary Completed 07/12/2017 Appointment: Magali Zepeda WPtel: [phone] [facility] [place] (15 min) Moderate 07/05/2017 Visit Plan: [...] care surrogate. 06/07/2017 Appointment: Windy Greco WPtel: [facility]4 [facility] [facility] - Annual Wellness Visit 06/07/2017 [...] per week. 05/24/2017 Appointment: Magali Zepeda WPtel: [facility] [place] (15 min) Moderate 05/24/2017 Patient Education: Patient Medication Summary Completed 05/24/2017 Appointment: Magali Zepeda WPtel: [facility] [place] (15 min) Moderate 05/11/2017 Visit Plan: [...] a week) 04/27/2017 Appointment: Magali Zepeda WPtel: [facility] (15 min) Moderate 04/27/2017 Patient Education: Patient [...] monitor symptoms. 04/13/2017 Appointment: Magali Zepeda WPtel: [facility] [place] (15 min) Moderate 04/13/2017 Patient [...] treatment strategy. 03/30/2017 Appointment: Magali Zepeda WPtel: [facility]5 [facility] (15 min) Moderate 03/30/2017 Patient Education: Patient [...] for constipation. 03/02/2017 Appointment: Magali Zepeda WPtel: [facility]9 [facility] (30 min) Complex 03/02/2017 Patient Education: Patient Medication Summary Completed 03/02/2017 Visit Plan: RA and Gait abnormality -continue with current treatments - supportive care Suspect some of her movement abnormalities may be due to her lamotrigine. 08/30/2016 Appointment: Magali Zepeda WPtel: [facility] [place] (30 min) Complex 08/30/2016 Patient Education: [...] warmth, discharge. 08/11/2016 Appointment: Windy Greco WPtel: [facility] (30 [...] surrogate. 06/01/2016 Appointment: Windy Greco WPtel: [phone] [facility] [facility] - Annual Wellness Visit 06/01/2016 [...] regimen. 04/16/2016 Appointment: [phone] (15 min) Moderate 04/16/2016 Patient Education: Patient Medication Summary Completed 04/16/2016 Visit Plan: RA and Gait abnormality - recommended pt to have referral to physical therapy at [facility]. Suspect some of her movement abnormalities may be due to her lamotrigine. 02/10/2016 Appointment: Magali Zepeda WPtel: [phone] [facility] [place] New Patient 02/10/2016 Patient Education: Patient Medication Summary Completed 02/10/2016 Instructions Comment . Epilepsy - chronic - pt on [...] not improve. . Epilepsy - chronic - symptoms stable [...] to have referral to physical therapy at [facility]. Suspect some of her movement abnormalities may be due to her lamotrigine. Repeat dilantin level increase to 4/day daily except 3/day on Tuesday/ take a probiotic whiile on antibiotic . Seizures -increase dilantin -repeat dilantin level in 1 week [id number] cefdinir-finish abx and let us know if your symptoms do not resolve or if any worse . Medicare Exam - today we discussed [...] - pt is currently getting Prolia in [place], this is a big burden for her - They have asked for her to be set up for prolia for at the end of may at [facility]- to call with specific date. Dysuria - [...] week and then as needed for constipation. RECOMMEND PROBIOTIC-ANY BRAND IS FINE: [facility], ALIGN sign release for labs from [...]
--- OUTSIDE RECORDS SUMMARY | 2018-12-30 22:11 | XMS REPORT | CCD ---
Author Author Magali Zepeda Organization Magali Zepeda MD, [facility] Address [address] [place] [address] Phone Care Team Providers Care Gun Stocker Name Role Phone PP Unavailable CCM Unavailable Summary Purpose Interface Exchange Insurance Providers Payer name Policy type / Coverage type Covered green party ID Effective Begin Date Effective End Date WPS Medicare Part B Medicare Part B [id number] Unknown [employer] [facility] Medicare Part B [id number] Unknown Family history Sister Diagnosis Age At [...] Unknown Retired 02/10/[address]: 706162987 Never smoker 02/10/[address]: 300249701 Never drinks alcohol 02/10/2016 Has the patient [...] Bactrim DS 800 mg-160 mg tablet RxNorm: 821605 1 Tablet(s) PO BID 12/04/2018 12/13/2018 Active Bactrim DS 800 mg-160 mg tablet RxNorm: 558279 1 Tablet(s) PO BID 12/04/2018 12/03/2018 Inactive Dilantin Extended 100 mg capsule RxNorm: 378012 Capsule(s) TAKE 1 CAP TID ON Tue/ AND 1 CAPSULE QID other days. if having symptoms of seizure activity, take an extra pill 10/17/2018 No Stop Date Active lamotrigine 100 mg tablet RxNorm: 086122 TAKE 1 TABLET BY MOUTH IN THE MORNING 09/29/2018 No Stop Date Active Bactrim DS 800 mg-160 mg tablet RxNorm: 756808 1 Tablet(s) PO BID 09/19/2018 09/18/2018 Inactive Bactrim DS 800 mg-160 mg tablet RxNorm: 943277 1 Tablet(s) PO BID 09/19/2018 09/25/2018 Inactive doxycycline hyclate 100 mg tablet RxNorm: 2600569 1 Tablet(s) PO BID 08/16/2018 08/15/2018 Inactive dc keflex doxycycline hyclate 100 mg tablet RxNorm: 6599262 1 Tablet(s) PO BID 08/16/2018 08/25/2018 Inactive dc keflex lamotrigine 150 mg tablet RxNorm: 298441 TAKE 1 TABLET BY MOUTH AT BEDTIME 08/14/2018 No Stop Date Active Keflex 500 mg capsule RxNorm: 952994 1 Capsule(s) PO TID and probiotic bid x7 08/14/2018 08/15/2018 Inactive Keflex 500 mg capsule RxNorm: 876248 1 Capsule(s) PO TID and probiotic bid x7 08/14/2018 08/13/2018 Inactive Zithromax Z-Escobar 250 mg tablet RxNorm: 200761 2 po on first dose and 1 daily Tablet(s) PO 07/27/2018 08/20/2018 Inactive zpack x 1 Mucinex 600 mg tablet, extended release RxNorm: 400219 1 Tablet(s) PO BID 07/27/2018 07/26/2018 Inactive Mucinex 600 mg tablet, extended release RxNorm: 624241 1 Tablet(s) PO BID 07/27/2018 08/09/2018 Inactive Dilantin Extended 100 mg capsule RxNorm: 457275 Capsule(s) TAKE 1 CAP TID ON Tue/urs AND 1 CAPSULE QID other days. 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 if having symptoms of seizure activity, take an extra pill 05/29/2018 07/19/2018 Inactive Dilantin Extended 100 mg capsule RxNorm: 709810 Capsule(s) TAKE 1 CAP TID x2 DAYS, THEN 1 CAPSULE qid x2 DAYs, THEN REPEAT CYCLE. if having symptoms of seizure activity, take an extra pill 05/22/2018 05/28/2018 Inactive lamotrigine 150 mg tablet RxNorm: 412631 TAKE 1 TABLET BY MOUTH AT BEDTIME 04/17/2018 08/13/2018 Inactive Dilantin Extended 100 mg capsule RxNorm: 605032 TAKE 1 CAPSULE BY MOUTH THREE TIMES DAILY FOR 3 DAYS, THEN 1 CAPSULE FOUR TIMES DAILY FOR 1 DAY, THEN REPEAT CYCLE. 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 antibiotic Penlac 8 % topical solution RxNorm: 287342 1 Application TOP daily clean off every 7 days and restart application process 02/16/2018 09/13/2018 Inactive ok to dispense generic Dilantin Extended 100 mg capsule RxNorm: 210340 Capsule(s) PO UD 1 cap TID x 3 days then 1 cap qid x 1 day then repeat cycle 12/15/2017 04/11/2018 Inactive give 1 month supply lamotrigine 150 mg tablet RxNorm: 396545 1 Tablet(s) PO QHS 12/07/2017 04/05/2018 Inactive lamotrigine 100 mg tablet RxNorm: 512629 1 Tablet(s) PO QAM 12/07/2017 03/30/2018 Inactive Levaquin 500 mg tablet RxNorm: 182731 1 Tablet(s) PO daily 12/05/2017 12/11/2017 Inactive Keflex 500 mg capsule RxNorm: 920221 1 Capsule(s) PO TID 11/14/2017 11/20/2017 Inactive Keflex 500 mg capsule RxNorm: 662211 1 Capsule(s) PO TID 11/14/2017 11/13/2017 Inactive Dilantin Extended 100 mg capsule RxNorm: 724699 Capsule(s) PO UD m3pill/tue3 pill/wed 4 pill/ thur 2pill/fri 3pill/sat 4pill/sun 3 pill 10/13/2017 12/14/2017 Inactive Dilantin Extended 100 mg capsule RxNorm: 563355 Capsule(s) PO UD -Alternate 300 mg for two days in a row and then 400 mg for one day and repeat cycle 10/04/2017 10/12/2017 Inactive Augmentin 500 mg-125 mg tablet RxNorm: 858499 1 Tablet(s) PO TID 07/15/2017 07/14/2017 Inactive Augmentin 500 mg-125 mg tablet RxNorm: 675646 1 Tablet(s) PO TID 07/15/2017 07/21/2017 Inactive Dilantin Extended 100 mg capsule RxNorm: 291258 1 Capsule(s) PO daily -Alternate 300 mg and 400 mg every other day 06/07/2017 10/03/2017 Inactive Bactrim DS 800 mg-160 mg tablet RxNorm: 691328 1 Tablet(s) PO BID 05/02/2017 05/08/2017 Inactive Dilantin Extended 100 mg capsule RxNorm: 781683 1 Capsule(s) PO daily in the afternoon and 2 Capsules PO HS- Will take an additional pill if she has a lot of jerking 04/27/2017 06/06/2017 Inactive Keflex 500 mg capsule RxNorm: 386805 1 Capsule(s) PO TID 04/19/2017 04/23/2017 Inactive dicyclomine 10 mg capsule RxNorm: 437694 1 Capsule(s) PO BID as needed 03/30/2017 05/28/2017 Inactive Senna with Docusate Sodium 8.6 mg-50 mg tablet RxNorm: 963791 1 Tablet(s) PO BID as needed constipation 03/02/2017 07/29/2017 Inactive Keflex 500 mg capsule RxNorm: 127472 1 Capsule(s) PO TID 08/11/2016 08/20/2016 Inactive Levaquin 500 mg tablet RxNorm: 430940 1 Tablet(s) PO daily 04/16/2016 04/22/2016 Inactive ciprofloxacin 500 mg tablet RxNorm: 972302 1 Tablet(s) PO BID 02/10/2016 02/16/2016 Inactive prednisone 10 mg tablet RxNorm: 376731 1 Tablet(s) PO as needed for pain No Start Date Active Prolia 60 mg/mL subcutaneous syringe RxNorm: 748325 1 injection SQ Q6 months No Start Date Active lamotrigine 150 mg tablet RxNorm: 968737 1 Tablet(s) PO QHS No Start Date 12/06/2017 Inactive lamotrigine 100 mg tablet RxNorm: 504453 1 Tablet(s) PO QAM No Start Date 12/06/2017 Inactive Dilantin Extended 100 mg capsule RxNorm: 819571 Capsule(s) PO TAKES FOUR CAPSULES FOR 2 DAYS, THEN THREE CAPSULES FOR 1 DAY, THEN REPEATS No Start Date 04/26/2017 Inactive Zithromax Z-Escobar 250 mg tablet RxNorm: 617090 2 po on first dose and 1 daily Tablet(s) PO No Start Date 07/26/2018 Inactive zpack x 1 Humira 20 mg/0.4 mL subcutaneous syringe kit RxNorm: 148577 1 injection SQ every 2 weeks- Prescribed [...] Observation Code Item Item Code Result Date Urinalysis Ord28 U-Color Yellow 11/30/2018 Urinalysis Ord28 [...] Ord7 DILANTIN 10.5 UG/ML 05/11/2018 Comp Metabolic Gzz736 NA 138 mEq/L 05/11/2018 Comp Metabolic Lwh635 K 4.0 mEq/L 05/11/2018 Comp Metabolic Jcc003 CL 100 mEq/L 05/11/2018 Comp Metabolic Woy232 CO2 29.0 mEq/L 05/11/2018 Comp Metabolic Heg796 ANION GAP 13 05/11/2018 Comp Metabolic Jrs483 GLUCOSE 84 mg/dL 05/11/2018 Comp Metabolic Fql234 Creat 0.8 mg/dL 05/11/2018 Comp Metabolic Xrr517 eGFR 77 ml/min/1.73m2 05/11/2018 Comp Metabolic Jvi075 BUN 26 mg/dL 05/11/2018 Comp Metabolic Wui390 B/C Ratio 33.3 Ratio 05/11/2018 Comp Metabolic Fry378 CALCIUM 9.1 mg/dL 05/11/2018 Comp Metabolic Eig885 ALK PHOS 97 U/L 05/11/2018 Comp Metabolic Lga634 AST(SGOT) 14 U/L 05/11/2018 Comp Metabolic Iav699 ALT(SGPT) 7 U/L 05/11/2018 Comp Metabolic Dvx765 BILI T 0.3 mg/dL 05/11/2018 Comp Metabolic Jrm511 ALBUMIN 3.6 g/dL 05/11/2018 Comp Metabolic Rdt128 TPRO 6.9 g/dL 05/11/2018 Comp Metabolic Eju616 GLOB 3.3 g/dL 05/11/2018 Comp Metabolic Xon297 A/G Ratio 1.1 Ratio 05/11/2018 Comp Metabolic Ntg279 Osmo 280 mOsmo 05/11/2018 Dilantin Ord7 DILANTIN 10.7 UG/ML 04/25/2018 Valproic Acid Ntv750 VALPROIC <10 ug/ml 04/24/2018 Dilantin Ord7 DILANTIN 10.6 UG/ML 04/11/2018 Culture Urine [id number] URINE CULTURE SEE NOTES 02/20/2018 Culture Urine [id number] Continued Results 02/20/2018 Urine Culture Ucult Complete >100,000 col/ml aerobic growth sent to ref lab 02/17/2018 Dilantin Ord7 DILANTIN 14.4 UG/ML 02/16/2018 Comp Metabolic Rfm210 NA 135 mEq/L 02/16/2018 Comp Metabolic Yvi517 K 3.8 mEq/L 02/16/2018 Comp Metabolic Tqn960 CL 99 mEq/L 02/16/2018 Comp Metabolic Cpp019 CO2 28.0 mEq/L 02/16/2018 Comp Metabolic Gjk451 ANION GAP 12 02/16/2018 Comp Metabolic Hxx614 GLUCOSE 101 mg/dL 02/16/2018 Comp Metabolic Shf206 Creat 0.8 mg/dL 02/16/2018 Comp Metabolic Wqs286 eGFR 75 ml/min/1.73m2 02/16/2018 Comp Metabolic Rfn192 BUN 20 mg/dL 02/16/2018 Comp Metabolic Yxf298 B/C Ratio 25.0 Ratio 02/16/2018 Comp Metabolic Scf489 CALCIUM 8.9 mg/dL 02/16/2018 Comp Metabolic Pww301 ALK PHOS 95 U/L 02/16/2018 Comp Metabolic Xab489 AST(SGOT) 13 U/L 02/16/2018 Comp Metabolic Kef966 ALT(SGPT) 7 U/L 02/16/2018 Comp Metabolic Rkp046 BILI T 0.4 mg/dL 02/16/2018 Comp Metabolic Qxa383 ALBUMIN 3.6 g/dL 02/16/2018 Comp Metabolic Vgt651 TPRO 7.2 g/dL 02/16/2018 Comp Metabolic Qmb443 GLOB 3.6 g/dL 02/16/2018 Comp Metabolic Bgq608 A/G Ratio 1.0 Ratio 02/16/2018 Comp Metabolic Zhw268 Osmo 273 mOsmo 02/16/2018 Urine Culture Ucult Complete >100,000 col/ml aerobic growth sent to ref lab 11/15/2017 Comp Metabolic Bxy640 NA 136 mEq/L 10/13/2017 Comp Metabolic Zbz691 K 4.0 mEq/L 10/13/2017 Comp Metabolic Qof057 CL 98 mEq/L 10/13/2017 Comp Metabolic Ucu697 CO2 28.0 mEq/L 10/13/2017 Comp Metabolic Bdz202 ANION GAP 14 10/13/2017 Comp Metabolic Sch715 GLUCOSE 94 mg/dL 10/13/2017 Comp Metabolic Ljh283 Creat 0.7 mg/dL 10/13/2017 Comp Metabolic Sff547 eGFR 82 ml/min/1.73m2 10/13/2017 Comp Metabolic Rwt111 BUN 26 mg/dL 10/13/2017 Comp Metabolic Gzc341 B/C Ratio 35.1 Ratio 10/13/2017 Comp Metabolic Uoh090 CALCIUM 9.1 mg/dL 10/13/2017 Comp Metabolic Zkk317 ALK PHOS 98 U/L 10/13/2017 Comp Metabolic Oku644 AST(SGOT) 15 U/L 10/13/2017 Comp Metabolic Yhc594 ALT(SGPT) 8 U/L 10/13/2017 Comp Metabolic Qsr280 BILI T 0.4 mg/dL 10/13/2017 Comp Metabolic Vhw286 ALBUMIN 3.7 g/dL 10/13/2017 Comp Metabolic Gek762 TPRO 7.8 g/dL 10/13/2017 Comp Metabolic Utv228 GLOB 4.1 g/dL 10/13/2017 Comp Metabolic Fkk052 A/G Ratio 0.9 Ratio 10/13/2017 Comp Metabolic Syj204 Osmo 276 mOsmo 10/13/2017 Dilantin Ord7 DILANTIN 21.4 Result Verified By Repeat Analysis UG/ML 10/13/2017 Dilantin Ord7 DILANTIN 24.1 Result Verified By Repeat Analysis UG/ML 10/03/2017 Dilantin Ord7 DILANTIN 18.1 UG/ML 06/30/2017 Dilantin Ord7 DILANTIN 22.7 UG/ML 06/16/2017 Dilantin Ord7 DILANTIN 26.1 UG/ML 06/07/2017 Dilantin Ord7 DILANTIN 24.1 UG/ML 05/24/2017 Dilantin Ord7 DILANTIN 19.6 UG/ML 05/11/2017 Culture Urine [id number] URINE CULTURE SEE NOTES 05/06/2017 Culture Urine [id number] Continued Results 05/06/2017 Urine Culture Ucult Complete >100,000 col/ml aerobic growth sent to ref lab 05/03/2017 Dilantin Ord7 DILANTIN 12.6 UG/ML 04/27/2017 Calcium Ord79 CALCIUM 9.3 mg/dL 04/19/2017 Dilantin Ord7 DILANTIN 21.6 UG/ML 04/19/2017 Dilantin Ord7 DILANTIN 10.3 UG/ML 04/13/2017 Dilantin Ord7 DILANTIN 21.9 UG/ML 04/07/2017 Comp Metabolic Jnz922 NA 137 mEq/L 03/30/2017 Comp Metabolic Zmh023 K 3.7 mEq/L 03/30/2017 Comp Metabolic Zvm138 CL 98 mEq/L 03/30/2017 Comp Metabolic Jsb746 CO2 29.0 mEq/L 03/30/2017 Comp Metabolic Mce866 ANION GAP 14 03/30/2017 Comp Metabolic Enf695 GLUCOSE 100 mg/dL 03/30/2017 Comp Metabolic Zfc655 Creat 0.9 mg/dL 03/30/2017 Comp Metabolic Lqs543 eGFR 88 ml/min/1.73m2 03/30/2017 Comp Metabolic Xxg235 BUN 22 mg/dL 03/30/2017 Comp Metabolic Joz598 B/C Ratio 24.4 Ratio 03/30/2017 Comp Metabolic Sdx249 CALCIUM 9.4 mg/dL 03/30/2017 Comp Metabolic Xzy983 ALK PHOS 113 U/L 03/30/2017 Comp Metabolic Jpz865 AST(SGOT) 16 U/L 03/30/2017 Comp Metabolic Cat948 ALT(SGPT) 7 U/L 03/30/2017 Comp Metabolic Ual588 BILI T 0.3 mg/dL 03/30/2017 Comp Metabolic Ali923 ALBUMIN 3.9 g/dL 03/30/2017 Comp Metabolic Ntg185 TPRO 8.0 g/dL 03/30/2017 Comp Metabolic Afj961 GLOB 4.1 g/dL 03/30/2017 Comp Metabolic Cmp418 A/G Ratio 0.9 Ratio 03/30/2017 Comp Metabolic Hml089 Osmo 277 mOsmo 03/30/2017 Lipid Ord30 CHOL 214 mg/dL 03/30/2017 Lipid Ord30 HDL 61.0 mg/dl 03/30/2017 Lipid Ord30 TRIG 130 mg/dL 03/30/2017 Lipid Ord30 LDL 127 mg/dL 03/30/2017 Lipid Ord30 C/HDL 3.5 Ratio 03/30/2017 Dilantin Ord7 DILANTIN 32.5 UG/ML 03/30/2017 Folate Ord36 Folate 16.46 ng/mL 03/30/2017 Tsh Ord6 hTSH II 0.95 uIU/mL 03/30/2017 B12 Adn765 B12 592.00 pg/ml 03/30/2017 Cbc With Differential [...] 30.9 pg 03/30/2017 Cbc With Differential Ord2 [place]% 23.9 % 03/30/2017 Cbc With Differential Ord2 [...] 0.44 K/ul 03/30/2017 Cbc With Differential Ord2 [place] ABS# 0.3 K/ul 03/30/2017 Cbc With Differential [...] 30.3 pg 08/11/2016 Cbc With Differential Ord2 [place]% 31.7 % 08/11/2016 Cbc With Differential Ord2 [...] 0.59 K/ul 08/11/2016 Cbc With Differential Ord2 [place] ABS# 0.6 K/ul 08/11/2016 Cbc With Differential Ord2 Eos ABS# 0.0 K/ul 08/11/2016 Cbc With Differential Ord2 Baso ABS# 0.0 K/ul 08/11/2016 Dilantin Ord7 DILANTIN 17.2 UG/ML 08/11/2016 Tsh Ord6 hTSH II 0.82 uIU/mL 08/11/2016 Comp Metabolic Jgz891 NA 131 mEq/L 08/11/2016 Comp Metabolic Rfx110 K 4.1 mEq/L 08/11/2016 Comp Metabolic Oiy859 CL 93 mEq/L 08/11/2016 Comp Metabolic Wcy485 CO2 29.0 mEq/L 08/11/2016 Comp Metabolic Rau419 ANION GAP 13 08/11/2016 Comp Metabolic Jel118 GLUCOSE 120 mg/dL 08/11/2016 Comp Metabolic Typ579 Creat 0.8 mg/dL 08/11/2016 Comp Metabolic Wtz366 eGFR 101 ml/min/1.73m2 08/11/2016 Comp Metabolic Dmg106 BUN 18 mg/dL 08/11/2016 Comp Metabolic Wgg629 B/C Ratio 22.5 Ratio 08/11/2016 Comp Metabolic Acl281 CALCIUM 9.5 mg/dL 08/11/2016 Comp Metabolic Vgc684 ALK PHOS 104 U/L 08/11/2016 Comp Metabolic Wmr877 AST(SGOT) 16 U/L 08/11/2016 Comp Metabolic Ghv518 ALT(SGPT) 8 U/L 08/11/2016 Comp Metabolic Lwr182 BILI T 0.4 mg/dL 08/11/2016 Comp Metabolic Mqw836 ALBUMIN 3.8 g/dL 08/11/2016 Comp Metabolic Mvu566 TPRO 8.4 g/dL 08/11/2016 Comp Metabolic Xfe809 GLOB 4.6 g/dL 08/11/2016 Comp Metabolic Liy789 A/G Ratio 0.8 Ratio 08/11/2016 Comp Metabolic Ryh274 Osmo 266 mOsmo 08/11/2016 Culture Urine [id number] URINE CULTURE SEE NOTES 04/19/2016 Culture Urine [id number] Continued Results 04/19/2016 Urine Culture Ucult Complete >100,000 col/ml aerobic growth sent to ref lab 04/17/2016 Culture Urine [id number] URINE CULTURE SEE NOTES 02/13/2016 Culture Urine [id number] Continued Results 02/13/2016 Urine Culture Ucult Complete [...] normal 12/30/2017 None Full Exam - General 1995 Ears/Nose/Throat lips/teeth/gingiva Overall: benign lips 12/30/2017 None [...] Codes Date URINALYSIS NONAUTO W/O SCOPE CPT-4: 47937 09/14/2018 URINALYSIS NONAUTO W/O SCOPE CPT-4: 32121 08/07/2018 URINALYSIS NONAUTO W/O SCOPE CPT-4: 92405 06/12/2018 URINALYSIS NONAUTO W/O SCOPE CPT-4: 77456 02/16/2018 URINALYSIS NONAUTO W/O SCOPE CPT-4: 44580 11/14/2017 PPPS, SUBSEQ VISIT CPT- 4: G0439 06/07/2017 URINALYSIS NONAUTO W/O SCOPE CPT-4: 44843 05/02/2017 URINALYSIS NONAUTO W/O SCOPE CPT-4: 42193 04/26/2017 PPPS, SUBSEQ VISIT CPT- 4: G0439 06/01/2016 URINALYSIS NONAUTO W/O SCOPE CPT-4: 79393 04/16/2016 URINALYSIS NONAUTO W/O SCOPE CPT-4: 13447 02/10/2016 Vital Signs Date Vital 09/12/2018 Blood Pressure 1: 106/60 Code: 8480-6 BMI: 17.5 Code: 51586-5 Heart Rate 1: 100 bpm Height: 5'5" SpO2: 97% Weight: 105 lbs 08/21/2018 Blood Pressure 1: 96/60 Code: 8480-6 Heart Rate 1: 114 bpm Height: 5'5" SpO2: 98% Weight: 07/20/2018 Blood Pressure 1: 104/60 Code: 8480-6 Heart Rate 1: 122 bpm Height: 5'5" SpO2: 94% Temperature: 36.7 (C) / 98.1 (F) Weight: 07/07/2018 Blood Pressure 1: 110/62 Code: 8480-6 BMI: 18.8 Code: 63316-9 Heart Rate 1: 67 bpm Height: 5'5" Temperature: 36.8 (C) / 98.2 (F) Weight: 113 lbs 05/22/2018 Blood Pressure 1: 112/68 Code: 8480-6 BMI: 18.6 Code: 66159-5 Heart Rate 1: 128 bpm Height: 5'5" SpO2: 98% Weight: 112 lbs 04/04/2018 Blood Pressure 1: 94/52 Code: 8480-6 Heart Rate 1: 120 bpm Height: 5'5" Respiratory Rate: 18 bpm SpO2: 98% Weight: 02/16/2018 Blood Pressure 1: 120/70 Code: 8480-6 BMI: 19.1 Code: 74088-4 Heart Rate 1: 115 bpm Height: 5'5" SpO2: 97% Weight: 115 lbs 12/30/2017 Blood Pressure 1: 100/68 Code: 8480-6 BMI: 18.3 Code: 28419-5 Heart Rate 1: 120 bpm Height: 5'5" SpO2: 94% Weight: 110 lbs 10/13/2017 Blood Pressure 1: 136/78 Code: 8480-6 BMI: 18.1 Code: 72002-2 Heart Rate 1: 126 bpm Height: 5'5" SpO2: 96% Weight: 109 lbs 07/12/2017 Blood Pressure 1: 100/56 Code: 8480-6 BMI: 18.1 Code: 53544-4 Heart Rate 1: 123 bpm Height: 5'5" SpO2: 99% Weight: 109 lbs 06/07/2017 Blood Pressure 1: 98/68 Code: 8480-6 BMI: 18.1 Code: 64049- 5 Heart Rate 1: 120 bpm Height: 5'5" SpO2: 99% Waist Measure (cm): 80 cm Weight: 109 lbs 05/24/2017 Blood Pressure 1: 104/62 Code: 8480-6 BMI: 18.1 Code: 67701-0 Heart Rate 1: 121 bpm Height: 5'5" SpO2: 97% Weight: 109 lbs 04/27/2017 Blood Pressure 1: 132/84 Code: 8480-6 BMI: 17.8 Code: 74185-9 Heart Rate 1: 129 bpm Height: 5'5" SpO2: 99% Weight: 107 lbs 04/13/2017 Blood Pressure 1: 100/66 Code: 8480-6 Heart Rate 1: 120 bpm Height: 5'5" SpO2: 99% Weight: 03/30/2017 Blood Pressure 1: 112/66 Code: 8480-6 BMI: 17.8 Code: 01968-8 Heart Rate 1: 112 bpm Height: 5'5" SpO2: 98% Weight: 107 lbs 03/02/2017 Blood Pressure 1: 128/78 Code: 8480-6 BMI: 18.1 Code: 06212-5 Heart Rate 1: 86 bpm Height: 5'5" SpO2: 95% Weight: 109 lbs 08/30/2016 Blood Pressure 1: 102/60 Code: 8480-6 BMI: 18.1 Code: 30599-0 Heart Rate 1: 135 bpm Height: 5'5" SpO2: 98% Weight: 109 lbs 08/11/2016 Blood Pressure 1: 100/66 Code: 8480-6 BMI: 18.6 Code: 21635-9 Heart Rate 1: 86 bpm Height: 5'5" SpO2: 94% Weight: 112 lbs 06/01/2016 Blood Pressure 1: 126/80 Code: 8480-6 BMI: 19.0 Code: 86120-6 Heart Rate 1: 100 bpm Height: 5'5" SpO2: 98% Waist Measure (cm): 64 cm Weight: 114 lbs 04/16/2016 Blood Pressure 1: 124/80 Code: 8480-6 Heart Rate 1: 110 bpm SpO2: 97% 02/10/2016 Blood Pressure 1: 102/64 Code: 8480-6 BMI: 18.3 Code: 75114-9 Heart Rate 1: 114 bpm Height: 5'5" [...] data Encounters Encounter Performer Location Codes Date ([id number]) 19858 EST. PATIENT, LEVEL III Diagnosis: Other epilepsy, not intractable, without status epilepticus[ICD10: G40.802] Diagnosis: Muscle weakness (generalized)[ICD10: M62.81] Magali Zepeda MD, [facility] CPT-4: 97790 09/12/2018 ([id number]) 70214 EST. PATIENT, LEVEL IV Diagnosis: Unsteadiness on feet[ICD10: R26.81] Diagnosis: Other epilepsy, not intractable, without status epilepticus[ICD10: G40.802] Diagnosis: Muscle weakness (generalized)[ICD10: M62.81] Magali Zepeda MD, [facility] CPT-4: 89587 08/21/2018 ([id number]) 77726 EST. PATIENT, LEVEL III Diagnosis: Cough[ICD10: R05] Diagnosis: Other epilepsy, not intractable, without status epilepticus[ICD10: G40.802] [facility] CPT-4: 37551 07/20/2018 ([id number]) 55018 EST. PATIENT, LEVEL III Diagnosis: Cough[ICD10: R05] Diagnosis: Acute upper respiratory infection, unspecified[ICD10: J06.9] Mishel Zepeda MD, [facility] CPT-4: 05184 07/07/2018 ([id number]) 15214 EST. PATIENT, LEVEL IV Diagnosis: Unsteadiness on feet[ICD10: R26.81] Diagnosis: Other abnormalities of gait and mobility[ICD10: R26.89] Diagnosis: Mixed incontinence[ICD10: N39.46] Diagnosis: Other epilepsy, not intractable, without status epilepticus[ICD10: G40.802] Magali Zepeda MD, [facility] CPT-4: 45324 05/22/2018 ([id number]) 38844 EST. PATIENT, LEVEL III Diagnosis: Right upper quadrant abdominal rigidity[ICD10: R19.31] Diagnosis: Functional diarrhea[ICD10: K59.1] Diagnosis: Calculus of gallbladder without cholecystitis without obstruction[ICD10: K80.20] Magali Zepeda MD, [facility] CPT-4: 12583 04/04/2018 ([id number]) 10709 EST. PATIENT, LEVEL IV Diagnosis: Other epilepsy, not intractable, without status epilepticus[ICD10: G40.802] Diagnosis: Slow transit constipation[ICD10: K59.01] Diagnosis: Dysuria[ICD10: R30.0] Diagnosis: Age-related osteoporosis without current pathological fracture[ICD10: M81.0] Magali Zepeda MD, [facility] CPT-4: 89317 02/16/2018 ([id number]) 04860 EST. PATIENT, LEVEL III Diagnosis: Slow transit constipation[ICD10: K59.01] Mishel Zepeda MD, [facility] CPT-4: 77579 12/30/2017 ([id number]) 72599 EST. PATIENT, LEVEL IV Diagnosis: Other epilepsy, not intractable, without status epilepticus[ICD10: G40.802] Diagnosis: Slow transit constipation[ICD10: K59.01] Magali Zepeda MD, [facility] CPT-4: 01644 10/13/2017 ([id number]) 94525 EST. PATIENT, LEVEL III Diagnosis: Other epilepsy, not intractable, without status epilepticus[ICD10: G40.802] Diagnosis: Dysuria[ICD10: R30.0] Diagnosis: Mixed incontinence[ICD10: N39.46] Magali Zepeda MD, [facility] CPT- 4: 56292 07/12/2017 ([id number]) 02245 EST. 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 CPT-4: 21688 05/24/2017 ([id number] 08494 EST. PATIENT, LEVEL III Diagnosis: Other epilepsy, not intractable, without status epilepticus[ICD10: G40.802] Magali Zepeda MD [facility] CPT-4: 84961 04/27/2017 ([id number] 27662 EST. 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 CPT- 4: 49535 04/13/2017 ([id number]) 54805 EST. 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 CPT-4: 53216 03/30/2017 ([id number]) 50145 EST. PATIENT, LEVEL IV Diagnosis: Calculus of gallbladder without cholecystitis without obstruction[ICD10: K80.20] Diagnosis: Benign paroxysmal vertigo, bilateral[ICD10: H81.13] Diagnosis: Slow transit constipation[ICD10: K59.01] Magali Zepeda MD, [facility] CPT-4: 83991 03/02/2017 ([id number]) [id number] EST. 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 CPT-4: 98564 08/30/2016 [id number] EST. PATIENT, LEVEL IV Diagnosis: Other epilepsy, not intractable, without status epilepticus[ICD10: G40.802] Diagnosis: Low back pain[ICD10: M54.5] Diagnosis: Pressure ulcer of sacral region, stage 1[ICD10: L89.151] Windy Angus Zepeda MD, [facility] CPT-4: 99792 08/11/2016 ([id number]) [id number] EST. PATIENT, LEVEL III Diagnosis: Urinary tract infection, site not specified[ICD10: N39.0] Diagnosis: Slow transit constipation[ICD10: K59.01] Mishel Zepeda MD, [facility] CPT-4: 72182 04/16/2016 ([id number]) OFFICE VISIT, NEW - LEVEL 4 Diagnosis: Other abnormalities of gait and mobility[ICD10: R26.89] Diagnosis: Dysuria[ICD10: R30.0] Diagnosis: Rheumatoid arthritis without rheumatoid factor, multiple sites[ICD10: M06.09] Magali Zepeda MD, [facility] CPT-4: 32214 02/10/2016 Plan of Care Planned Activity Notes [...] check urinalysis. 09/12/2018 Appointment: Magali Zepeda WPtel: [facility] (15 min) Moderate 09/12/2018 Patient Education: Patient [...] while seated. 08/21/2018 Appointment: Magali Zepeda WPtel: [phone] [facility] (15 min) Moderate 08/21/2018 Patient Education: Patient Medication Summary Completed 08/21/2018 Appointment: Lab Draw 08/07/2018 Patient Education: Patient Medication Summary Completed 08/07/2018 Patient Education: Patient Medication Summary Completed 08/03/2018 Visit Plan: Seizures -increase dilantin -repeat dilantin level in 1 week [id number] cefdinir-finish abx and let us know if your symptoms do not resolve or if any worse 07/20/2018 Appointment: Mishel Wilson WPtel: [facility]6 [phone] [place] (15 min) Moderate 07/20/2018 Patient Education: Patient Medication Summary Completed 07/20/2018 Visit Plan: URI -viral- Pt advised to increase fluids, vitamin C. Discussed natural and expected course of this diagnosis and need to alert me if symptoms do not follow expected course, or if any worse. RX sent to patient's pharmacy to start if needed. 07/07/2018 Appointment: Mishel Wilson WPtel: [phone] [phone] [place] (30 min) Complex 07/07/2018 Patient Education: Patient Medication Summary Completed 07/07/2018 Appointment: Magali Zepeda [facility]el: [phone] [place] ([place] min) Moderate 07/03/2018 Appointment: Lab Draw [...] the house. 05/22/2018 Appointment: Magali Zepeda WPtel: [phone] [facility] [place] (15 min) Moderate 05/22/2018 Patient Education: Patient Medication Summary Completed 05/22/2018 Appointment: Magali Zepeda WPtel: [phone] [facility] (15 min) Moderate 05/15/2018 Visit Plan: Diarrhea [...] post-operatively. 04/04/2018 Appointment: Magali Zepeda WPtel: [phone] [facility] (15 min) Moderate 04/04/2018 Patient Education: Patient Medication Summary Completed 04/04/2018 Patient Education: Diarrhea Completed 04/04/2018 Visit Plan: Epilepsy - chronic - continue with current regimen - check labs. Osteoporosis - pt is currently getting Prolia [place] [address], this is a big burden for her - They have asked for her to be set up for prolia for at the end of may at [address]- to call with specific date. Dysuria - UA - +leukocytes - start on keflex - rx sent to pharmacy. Chronic constipation - monitor symptoms. Continue with supportive care. 02/16/2018 Appointment: Magali Zepeda WPtel: [phone] [phone] (15 min) Moderate 02/16/2018 Patient Education: Patient [...] regimen. 12/30/2017 App[facility]ment: [facility] Wilson [facility]el: [phone] [place] (30 min) Complex 12/30/2017 Patient [...] regimen. 10/13/2017 Appointment: Magali Zepeda WPtel: [phone] [facility] [place] (15 min) Moderate 10/13/2017 Patient Education: Patient Medication Summary Completed 10/13/2017 Appointment: Magali Zepeda WPtel: [facility]4 [facility] [place] (15 min) Moderate 10/06/2017 Appointment[facility] [place] [place] ([place]) Moderate 07/12/2017 Patient Education: Patient Medication Summary Completed 07/12/2017 Appointment: Magali Zepeda WPtel: [phone] [facility] [place] (15 min) Moderate 07/05/2017 Visit Plan: [...] surrogate. 06/07/2017 Appointment: Windy Greco WPtel: [phone] [facility] [facility] - Annual Wellness Visit 06/07/2017 Patient Education: [...] per week. 05/24/2017 Appointment: Magali Zepeda [facility]Ptel: [phone] (15 min) Moderate 05/24/2017 Patient Education: Patient Medication Summary Completed 05/24/2017 Appointment: Magali Zepeda WPtel: [phone] (15 min) [...] a week) 04/27/2017 Appointment: Magali Zepeda WPtel: [phone] (15 min) Moderate 04/27/2017 Patient Education: Patient [...] strategy. 03/30/2017 Appointment: Magali Zepeda WPtel: [phone] [place] [place] (15 [...] for constipation. 03/02/2017 Appointment: Magali Zepeda WPtel: [facility]2 [facility] (30 min) Complex 03/02/2017 Patient Education: Patient Medication Summary Completed 03/02/2017 Visit Plan: RA and Gait abnormality -continue with current treatments - supportive care Suspect some of her movement abnormalities may be due to her lamotrigine. 08/30/2016 Appointment: Magali Zepeda WPtel: [phone] [facility] [place] (30 min) Complex 08/30/2016 Patient Education: [...] discharge. 08/11/2016 Appointment: Windy Greco WPtel: [phone] [facility] [place] (30 min) Complex 08/11/2016 Patient Education: [...] surrogate. 06/01/2016 Appointment: Windy Greco WPtel: [phone] - Annual Wellness Visit 06/01/2016 Patient [...] regimen. 04/16/2016 Appointment: Mishel Wilson WPtel: [phone] [phone] (15 min) Moderate 04/16/2016 Patient Education: Patient Medication Summary Completed 04/16/2016 Visit Plan: RA and Gait abnormality - recommended pt to have referral to physical therapy at [facility]. Suspect some of her movement abnormalities may be due to her lamotrigine. 02/10/2016 Appointment: Magali Zepeda WPtel: [facility] [place] [place] New Patient 02/10/2016 Patient Education: Patient [...] - pt is currently getting Prolia [place] [address], this is a big burden for her - They have asked for her to be set up for prolia for at the end of may at [address]- to call with specific date. Dysuria - [...] dilantin -repeat dilantin level in 1 week [id number] cefdinir-finish abx and let us know if [...] regimen. RECOMMEND PROBIOTIC-ANY BRAND IS FINE: RICKEY, [facility], ALIGN sign release for labs [...]
[2018-12-30 22:12] LABS: BASOPHILS % (AUTO) 1 % (0-10); EOSINOPHILS # (AUTO) 0.2 10^3/uL (0.0-0.3); EOSINOPHILS % (AUTO) 10 % (0-10); HEMATOCRIT 34 % (35-52); HEMOGLOBIN 11.7 G/DL (11.5-16.0); LYMPHOCYTES # (AUTO) 1.3 X 10^3 (1.0-4.0); LYMPHOCYTES % (AUTO) 63 % (12-44); MEAN CORPUSCULAR HEMOGLOBIN 31 PG (25-34); MEAN CORPUSCULAR HGB CONC 34 G/DL (32-36); MEAN CORPUSCULAR VOLUME 89 FL (80-99); MEAN PLATELET VOLUME 8.8 FL (7.4-10.4); MONOCYTES # (AUTO) 0.3 X 10^3 (0.0-1.0); MONOCYTES % (AUTO) 12 % (0-12); NEUTROPHILS # (AUTO) 0.3 X 10^3 (1.8-7.8); NEUTROPHILS % (AUTO) 15 % (42-75); PLATELET COUNT 133 10^3/uL (130-400); RED CELL DISTRIBUTION WIDTH 12.6 % (10.0-14.5); WHITE BLOOD COUNT 2.1 10^3/uL (4.3-11.0)
--- OUTSIDE RECORDS SUMMARY | 2018-12-30 22:13 | XMS REPORT | CCD ---
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 Name Role Phone PP Unavailable CCM Unavailable Summary Purpose Interface Exchange Insurance Providers Payer name Policy type / Coverage type Covered green party ID Effective Begin Date Effective End Date WPS Medicare Part B Medicare Part B [id number] Unknown [employer] [place] Medicare Part B [id number] Unknown Family history Sister Diagnosis Age At [...] Unknown Retired 02/10/[address]: 561667902 Never smoker 02/10/[address]: 553937202 Never drinks alcohol 02/10/2016 Has the patient [...] Instructions Dilantin Extended 100 mg capsule RxNorm: 892523 Capsule(s) TAKE 1 CAP TID ON Mon/Thurs AND 1 CAPSULE QID other days. if having symptoms of seizure activity, take an extra pill 10/17/2018 No Stop Date Active lamotrigine 100 mg tablet RxNorm: 765981 TAKE 1 TABLET BY MOUTH IN THE MORNING 09/29/2018 No Stop Date Active Bactrim DS 800 mg-160 mg tablet RxNorm: 386297 1 Tablet(s) PO BID 09/19/2018 09/18/2018 Inactive Bactrim DS 800 mg-160 mg tablet RxNorm: 499366 1 Tablet(s) PO BID 09/19/2018 09/25/2018 Inactive doxycycline hyclate 100 mg tablet RxNorm: 5064201 1 Tablet(s) PO BID 08/16/2018 08/15/2018 Inactive dc keflex doxycycline hyclate 100 mg tablet RxNorm: 0634140 1 Tablet(s) PO BID 08/16/2018 08/25/2018 Inactive dc keflex lamotrigine 150 mg tablet RxNorm: 540306 TAKE 1 TABLET BY MOUTH AT BEDTIME 08/14/2018 No Stop Date Active Keflex 500 mg capsule RxNorm: 541272 1 Capsule(s) PO TID and probiotic bid x7 08/14/2018 08/15/2018 Inactive Keflex 500 mg capsule RxNorm: 622727 1 Capsule(s) PO TID and probiotic bid x7 08/14/2018 08/13/2018 Inactive Zithromax Z-Escobar 250 mg tablet RxNorm: 958559 2 po on first dose and 1 daily Tablet(s) PO 07/27/2018 08/20/2018 Inactive zpack x 1 Mucinex 600 mg tablet, extended release RxNorm: 592711 1 Tablet(s) PO BID 07/27/2018 07/26/2018 Inactive Mucinex 600 mg tablet, extended release RxNorm: 503703 1 Tablet(s) PO BID 07/27/2018 08/09/2018 Inactive Dilantin Extended 100 mg capsule RxNorm: 539889 Capsule(s) TAKE 1 CAP TID ON Tue/urs AND 1 CAPSULE QID other days. if having symptoms of seizure activity, take an extra pill 07/20/2018 10/16/2018 Inactive amoxicillin 500 mg tablet RxNorm: 912831 1 Tablet(s) PO TID 07/07/2018 07/13/2018 Inactive lamotrigine 100 mg tablet RxNorm: 645999 TAKE 1 TABLET BY MOUTH IN THE MORNING 07/03/2018 09/28/2018 Inactive Keflex 500 mg capsule RxNorm: 721108 1 Capsule(s) PO QID 06/12/2018 06/18/2018 Inactive please call patient to let her know she needs to [facility] for antibiotic Dilantin Extended 100 mg capsule RxNorm: 268310 Capsule(s) TAKE 1 CAP TID ON /TUE AND 1 CAPSULE QID ON ///TUE. if having symptoms of seizure activity, take an extra pill 05/29/2018 07/19/2018 Inactive Dilantin Extended 100 mg capsule RxNorm: 052167 Capsule(s) TAKE 1 CAP TID x2 DAYS, THEN 1 CAPSULE qid x2 DAYs, THEN REPEAT CYCLE. if having symptoms of seizure activity, take an extra pill 05/22/2018 05/28/2018 Inactive lamotrigine 150 mg tablet RxNorm: 466979 TAKE 1 TABLET BY MOUTH AT BEDTIME 04/17/2018 08/13/2018 Inactive Dilantin Extended 100 mg capsule RxNorm: 412467 TAKE 1 CAPSULE BY MOUTH THREE TIMES DAILY FOR 3 DAYS, THEN 1 CAPSULE FOUR TIMES DAILY FOR 1 DAY, THEN REPEAT CYCLE. 04/12/2018 05/21/2018 Inactive lamotrigine 100 mg tablet RxNorm: 440736 TAKE 1 TABLET BY MOUTH IN THE MORNING 03/31/2018 07/02/2018 Inactive dicyclomine 10 mg capsule RxNorm: 744802 TAKE ONE CAPSULE BY MOUTH TWICE DAILY NEEDED 02/20/2018 No Stop Date Active Keflex 500 mg capsule RxNorm: 216563 1 Capsule(s) PO QID 02/16/2018 02/22/2018 Inactive please call patient to let her know she needs to [facility] for antibiotic Penlac 8 % topical solution RxNorm: 964779 1 Application TOP daily clean off every 7 days and restart application process 02/16/2018 09/13/2018 Inactive ok to dispense generic Dilantin Extended 100 mg capsule RxNorm: 258831 Capsule(s) PO UD 1 cap TID x 3 days then 1 cap qid x 1 day then repeat cycle 12/15/2017 04/11/2018 Inactive give 1 month supply lamotrigine 150 mg tablet RxNorm: 264252 1 Tablet(s) PO QHS 12/07/2017 04/05/2018 Inactive lamotrigine 100 mg tablet RxNorm: 925938 1 Tablet(s) PO QAM 12/07/2017 03/30/2018 Inactive Levaquin 500 mg tablet RxNorm: 968625 1 Tablet(s) PO daily 12/05/2017 12/11/2017 Inactive Keflex 500 mg capsule RxNorm: 947947 1 Capsule(s) PO TID 11/14/2017 11/20/2017 Inactive Keflex 500 mg capsule RxNorm: 989893 1 Capsule(s) PO TID 11/14/2017 11/13/2017 Inactive Dilantin Extended 100 mg capsule RxNorm: 806428 Capsule(s) PO UD m3pill/tue3 pill/wed 4 pill/ thur 2pill/fri 3pill/sat 4pill/sun 3 pill 10/13/2017 12/14/2017 Inactive Dilantin Extended 100 mg capsule RxNorm: 679204 Capsule(s) PO UD -Alternate 300 mg for two days in a row and then 400 mg for one day and repeat cycle 10/04/2017 10/12/2017 Inactive Augmentin 500 mg-125 mg tablet RxNorm: 271089 1 Tablet(s) PO TID 07/15/2017 07/14/2017 Inactive Augmentin 500 mg-125 mg tablet RxNorm: 890878 1 Tablet(s) PO TID 07/15/2017 07/21/2017 Inactive Dilantin Extended 100 mg capsule RxNorm: 682999 1 Capsule(s) PO daily -Alternate 300 mg and 400 mg every other day 06/07/2017 10/03/2017 Inactive Bactrim DS 800 mg-160 mg tablet RxNorm: 771873 1 Tablet(s) PO BID 05/02/2017 05/08/2017 Inactive Dilantin Extended 100 mg capsule RxNorm: 428148 1 Capsule(s) PO daily in the afternoon and 2 Capsules PO HS- Will take an additional pill if she has a lot of jerking 04/27/2017 06/06/2017 Inactive Keflex 500 mg capsule RxNorm: 097948 1 Capsule(s) PO TID 04/19/2017 04/23/2017 Inactive dicyclomine 10 mg capsule RxNorm: 305105 1 Capsule(s) PO BID as needed 03/30/2017 05/28/2017 Inactive Senna with Docusate Sodium 8.6 mg-50 mg tablet RxNorm: 724184 1 Tablet(s) PO BID as needed constipation 03/02/2017 07/29/2017 Inactive Keflex 500 mg capsule RxNorm: 068846 1 Capsule(s) PO TID 08/11/2016 08/20/2016 Inactive Levaquin 500 mg tablet RxNorm: 478171 1 Tablet(s) PO daily 04/16/2016 04/22/2016 Inactive ciprofloxacin 500 mg tablet RxNorm: 024853 1 Tablet(s) PO BID 02/10/2016 02/16/2016 Inactive prednisone 10 mg tablet RxNorm: 167525 1 Tablet(s) PO as needed for pain No Start Date Active Prolia 60 mg/mL subcutaneous syringe RxNorm: 328536 1 injection SQ Q6 months No Start Date Active lamotrigine 150 mg tablet RxNorm: 205571 1 Tablet(s) PO QHS No Start Date 12/06/2017 Inactive lamotrigine 100 mg tablet RxNorm: 747363 1 Tablet(s) PO QAM No Start Date 12/06/2017 Inactive Dilantin Extended 100 mg capsule RxNorm: 485661 Capsule(s) PO TAKES FOUR CAPSULES FOR 2 DAYS, THEN THREE CAPSULES FOR 1 DAY, THEN REPEATS No Start Date 04/26/2017 Inactive Zithromax Z-Escobar 250 mg tablet RxNorm: 667903 2 po on first dose and 1 daily Tablet(s) PO No Start Date 07/26/2018 Inactive zpack x 1 Humira 20 mg/0.4 mL subcutaneous syringe kit RxNorm: 123798 1 injection SQ every 2 weeks- Prescribed [...] U-VOL VOLUME SUFFICIENT (10mL) 11/30/2018 Urinalysis Ord28 U-Yeast NEGATIVE 11/30/2018 Urinalysis Ord28 U-Com Culture to follow 11/30/2018 Dilantin Ord7 DILANTIN 13.0 UG/ML 10/17/2018 Dilantin Ord7 DILANTIN 15.6 UG/ML 09/12/2018 Urine Culture Ucult Complete >100,000 col/ml aerobic growth sent to ref lab 08/08/2018 Dilantin Ord7 DILANTIN 17.9 UG/ML 08/03/2018 Urine Culture Ucult Complete Growth of aerobe sent to ref lab 06/14/2018 Dilantin Ord7 DILANTIN 10.5 UG/ML 05/11/2018 Comp Metabolic Huo497 NA 138 mEq/L 05/11/2018 Comp Metabolic Yit655 K 4.0 mEq/L 05/11/2018 Comp Metabolic Fzc602 CL 100 mEq/L 05/11/2018 Comp Metabolic Uey363 CO2 29.0 mEq/L 05/11/2018 Comp Metabolic Ymx537 ANION GAP 13 05/11/2018 Comp Metabolic Rnx542 GLUCOSE 84 mg/dL 05/11/2018 Comp Metabolic Fhq392 Creat 0.8 mg/dL 05/11/2018 Comp Metabolic Hou290 eGFR 77 ml/min/1.73m2 05/11/2018 Comp Metabolic Iyi470 BUN 26 mg/dL 05/11/2018 Comp Metabolic Cir254 B/C Ratio 33.3 Ratio 05/11/2018 Comp Metabolic Hdi814 CALCIUM 9.1 mg/dL 05/11/2018 Comp Metabolic Yih518 ALK PHOS 97 U/L 05/11/2018 Comp Metabolic Auv683 AST(SGOT) 14 U/L 05/11/2018 Comp Metabolic Gxj096 ALT(SGPT) 7 U/L 05/11/2018 Comp Metabolic Qau011 BILI T 0.3 mg/dL 05/11/2018 Comp Metabolic Gvv809 ALBUMIN 3.6 g/dL 05/11/2018 Comp Metabolic Fkt891 TPRO 6.9 g/dL 05/11/2018 Comp Metabolic Jok880 GLOB 3.3 g/dL 05/11/2018 Comp Metabolic Tow293 A/G Ratio 1.1 Ratio 05/11/2018 Comp Metabolic Upt126 Osmo 280 mOsmo 05/11/2018 Dilantin Ord7 DILANTIN 10.7 UG/ML 04/25/2018 Valproic Acid Ota442 VALPROIC <10 ug/ml 04/24/2018 Dilantin Ord7 DILANTIN 10.6 UG/ML 04/11/2018 Culture Urine [id number] URINE CULTURE SEE NOTES 02/20/2018 Culture Urine [id number] Continued Results 02/20/2018 Urine Culture Ucult Complete >100,000 col/ml aerobic growth sent to ref lab 02/17/2018 Dilantin Ord7 DILANTIN 14.4 UG/ML 02/16/2018 Comp Metabolic Glw863 NA 135 mEq/L 02/16/2018 Comp Metabolic Yra212 K 3.8 mEq/L 02/16/2018 Comp Metabolic Jna680 CL 99 mEq/L 02/16/2018 Comp Metabolic Fbg227 CO2 28.0 mEq/L 02/16/2018 Comp Metabolic Zgk834 ANION GAP 12 02/16/2018 Comp Metabolic Ftc510 GLUCOSE 101 mg/dL 02/16/2018 Comp Metabolic Orr098 Creat 0.8 mg/dL 02/16/2018 Comp Metabolic Tpl937 eGFR 75 ml/min/1.73m2 02/16/2018 Comp Metabolic Kpo165 BUN 20 mg/dL 02/16/2018 Comp Metabolic Fvi407 B/C Ratio 25.0 Ratio 02/16/2018 Comp Metabolic Ktf350 CALCIUM 8.9 mg/dL 02/16/2018 Comp Metabolic Rox077 ALK PHOS 95 U/L 02/16/2018 Comp Metabolic Cey360 AST(SGOT) 13 U/L 02/16/2018 Comp Metabolic Wed370 ALT(SGPT) 7 U/L 02/16/2018 Comp Metabolic Eex821 BILI T 0.4 mg/dL 02/16/2018 Comp Metabolic Klg526 ALBUMIN 3.6 g/dL 02/16/2018 Comp Metabolic Hkg476 TPRO 7.2 g/dL 02/16/2018 Comp Metabolic Tah346 GLOB 3.6 g/dL 02/16/2018 Comp Metabolic Sow437 A/G Ratio 1.0 Ratio 02/16/2018 Comp Metabolic Tdr232 Osmo 273 mOsmo 02/16/2018 Urine Culture Ucult Complete >100,000 col/ml aerobic growth sent to ref lab 11/15/2017 Comp Metabolic Dct325 NA 136 mEq/L 10/13/2017 Comp Metabolic Gve212 K 4.0 mEq/L 10/13/2017 Comp Metabolic Kab087 CL 98 mEq/L 10/13/2017 Comp Metabolic Kgh329 CO2 28.0 mEq/L 10/13/2017 Comp Metabolic Qsk788 ANION GAP 14 10/13/2017 Comp Metabolic Ddv658 GLUCOSE 94 mg/dL 10/13/2017 Comp Metabolic Hhz358 Creat 0.7 mg/dL 10/13/2017 Comp Metabolic Bce351 eGFR 82 ml/min/1.73m2 10/13/2017 Comp Metabolic Ika440 BUN 26 mg/dL 10/13/2017 Comp Metabolic Hbb004 B/C Ratio 35.1 Ratio 10/13/2017 Comp Metabolic Tsy498 CALCIUM 9.1 mg/dL 10/13/2017 Comp Metabolic Nhf316 ALK PHOS 98 U/L 10/13/2017 Comp Metabolic Rmn490 AST(SGOT) 15 U/L 10/13/2017 Comp Metabolic Qup211 ALT(SGPT) 8 U/L 10/13/2017 Comp Metabolic Ngu307 BILI T 0.4 mg/dL 10/13/2017 Comp Metabolic Zwn285 ALBUMIN 3.7 g/dL 10/13/2017 Comp Metabolic Vzr533 TPRO 7.8 g/dL 10/13/2017 Comp Metabolic Pid425 GLOB 4.1 g/dL 10/13/2017 Comp Metabolic Zjr222 A/G Ratio 0.9 Ratio 10/13/2017 Comp Metabolic Htz184 Osmo 276 mOsmo 10/13/2017 Dilantin Ord7 DILANTIN 21.4 Result Verified By Repeat Analysis UG/ML 10/13/2017 Dilantin Ord7 DILANTIN 24.1 Result Verified By Repeat Analysis UG/ML 10/03/2017 Dilantin Ord7 DILANTIN 18.1 UG/ML 06/30/2017 Dilantin Ord7 DILANTIN 22.7 UG/ML 06/16/2017 Dilantin Ord7 DILANTIN 26.1 UG/ML 06/07/2017 Dilantin Ord7 DILANTIN 24.1 UG/ML 05/24/2017 Dilantin Ord7 DILANTIN 19.6 UG/ML 05/11/2017 Culture Urine [id number] URINE CULTURE SEE NOTES 05/06/2017 Culture Urine [id number] Continued Results 05/06/2017 Urine Culture Ucult Complete >100,000 col/ml aerobic growth sent to ref lab 05/03/2017 Dilantin Ord7 DILANTIN 12.6 UG/ML 04/27/2017 Calcium Ord79 CALCIUM 9.3 mg/dL 04/19/2017 Dilantin Ord7 DILANTIN 21.6 UG/ML 04/19/2017 Dilantin Ord7 DILANTIN 10.3 UG/ML 04/13/2017 Dilantin Ord7 DILANTIN 21.9 UG/ML 04/07/2017 Comp Metabolic Tvy198 NA 137 mEq/L 03/30/2017 Comp Metabolic Akz077 K 3.7 mEq/L 03/30/2017 Comp Metabolic Mzv286 CL 98 mEq/L 03/30/2017 Comp Metabolic Jol357 CO2 29.0 mEq/L 03/30/2017 Comp Metabolic Oho531 ANION GAP 14 03/30/2017 Comp Metabolic Mrp723 GLUCOSE 100 mg/dL 03/30/2017 Comp Metabolic Pib532 Creat 0.9 mg/dL 03/30/2017 Comp Metabolic Elm985 eGFR 88 ml/min/1.73m2 03/30/2017 Comp Metabolic Usc079 BUN 22 mg/dL 03/30/2017 Comp Metabolic Kyw350 B/C Ratio 24.4 Ratio 03/30/2017 Comp Metabolic Wbn512 CALCIUM 9.4 mg/dL 03/30/2017 Comp Metabolic Jln240 ALK PHOS 113 U/L 03/30/2017 Comp Metabolic Ueg786 AST(SGOT) 16 U/L 03/30/2017 Comp Metabolic Hwn623 ALT(SGPT) 7 U/L 03/30/2017 Comp Metabolic Via454 BILI T 0.3 mg/dL 03/30/2017 Comp Metabolic Nvi930 ALBUMIN 3.9 g/dL 03/30/2017 Comp Metabolic Ika958 TPRO 8.0 g/dL 03/30/2017 Comp Metabolic Vor945 GLOB 4.1 g/dL 03/30/2017 Comp Metabolic Wpj834 A/G Ratio 0.9 Ratio 03/30/2017 Comp Metabolic Nho017 Osmo 277 mOsmo 03/30/2017 Lipid Ord30 CHOL 214 mg/dL 03/30/2017 Lipid Ord30 HDL 61.0 mg/dl 03/30/2017 Lipid Ord30 TRIG 130 mg/dL 03/30/2017 Lipid Ord30 LDL 127 mg/dL 03/30/2017 Lipid Ord30 C/HDL 3.5 Ratio 03/30/2017 Dilantin Ord7 DILANTIN 32.5 UG/ML 03/30/2017 Folate Ord36 Folate 16.46 ng/mL 03/30/2017 Tsh Ord6 hTSH II 0.95 uIU/mL 03/30/2017 B12 Nmh060 B12 592.00 pg/ml 03/30/2017 Cbc With Differential [...] 30.9 pg 03/30/2017 Cbc With Differential Ord2 [place]% 23.9 % 03/30/2017 Cbc With Differential Ord2 [...] 0.44 K/ul 03/30/2017 Cbc With Differential Ord2 [place] ABS# 0.3 K/ul 03/30/2017 Cbc With Differential [...] 30.3 pg 08/11/2016 Cbc With Differential Ord2 [place]% 31.7 % 08/11/2016 Cbc With Differential Ord2 [...] 0.59 K/ul 08/11/2016 Cbc With Differential Ord2 [place] ABS# 0.6 K/ul 08/11/2016 Cbc With Differential Ord2 Eos ABS# 0.0 K/ul 08/11/2016 Cbc With Differential Ord2 Baso ABS# 0.0 K/ul 08/11/2016 Dilantin Ord7 DILANTIN 17.2 UG/ML 08/11/2016 Tsh Ord6 hTSH II 0.82 uIU/mL 08/11/2016 Comp Metabolic Tyc855 NA 131 mEq/L 08/11/2016 Comp Metabolic Yob545 K 4.1 mEq/L 08/11/2016 Comp Metabolic Rln417 CL 93 mEq/L 08/11/2016 Comp Metabolic Zdt688 CO2 29.0 mEq/L 08/11/2016 Comp Metabolic Hbj774 ANION GAP 13 08/11/2016 Comp Metabolic Jki814 GLUCOSE 120 mg/dL 08/11/2016 Comp Metabolic Jaz525 Creat 0.8 mg/dL 08/11/2016 Comp Metabolic Jcs067 eGFR 101 ml/min/1.73m2 08/11/2016 Comp Metabolic Etj589 BUN 18 mg/dL 08/11/2016 Comp Metabolic Cxr579 B/C Ratio 22.5 Ratio 08/11/2016 Comp Metabolic Jxb081 CALCIUM 9.5 mg/dL 08/11/2016 Comp Metabolic Ekv736 ALK PHOS 104 U/L 08/11/2016 Comp Metabolic Qkk070 AST(SGOT) 16 U/L 08/11/2016 Comp Metabolic Gdp174 ALT(SGPT) 8 U/L 08/11/2016 Comp Metabolic Eyt652 BILI T 0.4 mg/dL 08/11/2016 Comp Metabolic Dlc840 ALBUMIN 3.8 g/dL 08/11/2016 Comp Metabolic Kvf530 TPRO 8.4 g/dL 08/11/2016 Comp Metabolic Ubj603 GLOB 4.6 g/dL 08/11/2016 Comp Metabolic Jdn246 A/G Ratio 0.8 Ratio 08/11/2016 Comp Metabolic Bsy620 Osmo 266 mOsmo 08/11/2016 Culture Urine [id number] URINE CULTURE SEE NOTES 04/19/2016 Culture Urine [id number] Continued Results 04/19/2016 Urine Culture Ucult Complete >100,000 col/ml aerobic growth sent to ref lab 04/17/2016 Culture Urine [id number] URINE CULTURE SEE NOTES 02/13/2016 Culture Urine [id number] Continued Results 02/13/2016 Urine Culture Ucult Complete [...] normal 09/12/2018 None Full Exam - General 1995 Ears/Nose/Throat lips/teeth/gingiva Overall: benign lips 09/12/2018 None [...] clear 02/16/2018 None Full Exam - General 1995 Eyes conjunctiva/eyelids Overall: eyelids normal 02/16/2018 None [...] None Full Exam - General 1995 Eyes conjunctiva/eyelids Overall: conjunctiva clear 08/11/2016 None [...] Codes Date URINALYSIS NONAUTO W/O SCOPE CPT-4: 93124 09/14/2018 URINALYSIS NONAUTO W/O SCOPE CPT-4: 68353 08/07/2018 URINALYSIS NONAUTO W/O SCOPE CPT-4: 23889 06/12/2018 URINALYSIS NONAUTO W/O SCOPE CPT-4: 45270 02/16/2018 URINALYSIS NONAUTO W/O SCOPE CPT-4: 24542 11/14/2017 PPPS, SUBSEQ VISIT CPT- 4: G0439 06/07/2017 URINALYSIS NONAUTO W/O SCOPE CPT-4: 55973 05/02/2017 URINALYSIS NONAUTO W/O SCOPE CPT-4: 96189 04/26/2017 PPPS, SUBSEQ VISIT CPT- 4: G0439 06/01/2016 URINALYSIS NONAUTO W/O SCOPE CPT-4: 48636 04/16/2016 URINALYSIS NONAUTO W/O SCOPE CPT-4: 89645 02/10/2016 Vital Signs Date Vital 09/12/2018 Blood Pressure 1: 106/60 Code: 8480-6 BMI: 17.5 Code: 48110-1 Heart Rate 1: 100 bpm Height: 5'5" SpO2: 97% Weight: 105 lbs 08/21/2018 Blood Pressure 1: 96/60 Code: 8480-6 Heart Rate 1: 114 bpm Height: 5'5" SpO2: 98% Weight: 07/20/2018 Blood Pressure 1: 104/60 Code: 8480-6 Heart Rate 1: 122 bpm Height: 5'5" SpO2: 94% Temperature: 36.7 (C) / 98.1 (F) Weight: 07/07/2018 Blood Pressure 1: 110/62 Code: 8480-6 BMI: 18.8 Code: 08201-5 Heart Rate 1: 67 bpm Height: 5'5" Temperature: 36.8 (C) / 98.2 (F) Weight: 113 lbs 05/22/2018 Blood Pressure 1: 112/68 Code: 8480-6 BMI: 18.6 Code: 59780-6 Heart Rate 1: 128 bpm Height: 5'5" SpO2: 98% Weight: 112 lbs 04/04/2018 Blood Pressure 1: 94/52 Code: 8480-6 Heart Rate 1: 120 bpm Height: 5'5" Respiratory Rate: 18 bpm SpO2: 98% Weight: 02/16/2018 Blood Pressure 1: 120/70 Code: 8480-6 BMI: 19.1 Code: 80061-1 Heart Rate 1: 115 bpm Height: 5'5" SpO2: 97% Weight: 115 lbs 12/30/2017 Blood Pressure 1: 100/68 Code: 8480-6 BMI: 18.3 Code: 74838-0 Heart Rate 1: 120 bpm Height: 5'5" SpO2: 94% Weight: 110 lbs 10/13/2017 Blood Pressure 1: 136/78 Code: 8480-6 BMI: 18.1 Code: 28660-7 Heart Rate 1: 126 bpm Height: 5'5" SpO2: 96% Weight: 109 lbs 07/12/2017 Blood Pressure 1: 100/56 Code: 8480-6 BMI: 18.1 Code: 64302-5 Heart Rate 1: 123 bpm Height: 5'5" SpO2: 99% Weight: 109 lbs 06/07/2017 Blood Pressure 1: 98/68 Code: 8480-6 BMI: 18.1 Code: 43923- 5 Heart Rate 1: 120 bpm Height: 5'5" SpO2: 99% Waist Measure (cm): 80 cm Weight: 109 lbs 05/24/2017 Blood Pressure 1: 104/62 Code: 8480-6 BMI: 18.1 Code: 58359-3 Heart Rate 1: 121 bpm Height: 5'5" SpO2: 97% Weight: 109 lbs 04/27/2017 Blood Pressure 1: 132/84 Code: 8480-6 BMI: 17.8 Code: 96722-2 Heart Rate 1: 129 bpm Height: 5'5" SpO2: 99% Weight: 107 lbs 04/13/2017 Blood Pressure 1: 100/66 Code: 8480-6 Heart Rate 1: 120 bpm Height: 5'5" SpO2: 99% Weight: 03/30/2017 Blood Pressure 1: 112 Code: 8480-6 BMI: 17.8 Code: 88186-7 Heart Rate 1: 112 bpm Height: 5'5" SpO2: 98% Weight: 107 lbs 03/02/2017 Blood Pressure 1: 128/78 Code: 8480-6 BMI: 18.1 Code: 82793-8 Heart Rate 1: 86 bpm Height: 5'5" SpO2: 95% Weight: 109 lbs 08/30/2016 Blood Pressure 1: 102/60 Code: 8480-6 BMI: 18.1 Code: 80198-5 Heart Rate 1: 135 bpm Height: 5'5" SpO2: 98% Weight: 109 lbs 08/11/2016 Blood Pressure 1: 100/66 Code: 8480-6 BMI: 18.6 Code: 98401-1 Heart Rate 1: 86 bpm Height: 5'5" SpO2: 94% Weight: 112 lbs 06/01/2016 Blood Pressure 1: 126/80 Code: 8480-6 BMI: 19.0 Code: 90405-8 Heart Rate 1: 100 bpm Height: 5'5" SpO2: 98% Waist Measure (cm): 64 cm Weight: 114 lbs 04/16/2016 Blood Pressure 1: 124/80 Code: 8480-6 Heart Rate 1: 110 bpm SpO2: 97% 02/10/2016 Blood Pressure 1: 102/64 Code: 8480-6 BMI: 18.3 Code: 59250-4 Heart Rate 1: 114 bpm Height: 5'5" [...] data Encounters Encounter Performer Location Codes Date 98171 EST. PATIENT, LEVEL III Diagnosis: Other epilepsy, not intractable, without status epilepticus[ICD10: G40.802] Diagnosis: Muscle weakness (generalized)[ICD10: M62.81] Magali Zepeda MD, [facility] CPT-4: 16111 09/12/2018 ([id number]) 05760 EST. PATIENT, LEVEL IV Diagnosis: Unsteadiness on feet[ICD10: R26.81] Diagnosis: Other epilepsy, not intractable, without status epilepticus[ICD10: G40.802] Diagnosis: Muscle weakness (generalized)[ICD10: M62.81] Magali Zepeda MD, [facility] CPT-4: 63236 08/21/2018 ([id number]) 85565 EST. PATIENT, LEVEL III Diagnosis: Cough[ICD10: R05] Diagnosis: Other epilepsy, not intractable, without status epilepticus[ICD10: G40.802] Mishel Zepeda MD, [facility] CPT-4: 39060 07/20/2018 [id number] EST. PATIENT, LEVEL III Diagnosis: Cough[ICD10: R05] Diagnosis: Acute upper respiratory infection, unspecified[ICD10: J06.9] Mishel Zepeda MD, [facility] CPT-4: 76065 07/07/2018 [id number]) [id number] EST. PATIENT, LEVEL IV Diagnosis: Unsteadiness on feet[ICD10: R26.81] Diagnosis: Other abnormalities of gait and mobility[ICD10: R26.89] Diagnosis: Mixed incontinence[ICD10: N39.46] Diagnosis: Other epilepsy, not intractable, without status epilepticus[ICD10: G40.802] Magali Zepeda MD, [facility] CPT-4: 63688 05/22/2018 ([id number]) 65772 EST. PATIENT, LEVEL III Diagnosis: Right upper quadrant abdominal rigidity[ICD10: R19.31] Diagnosis: Functional diarrhea[ICD10: K59.1] Diagnosis: Calculus of gallbladder without cholecystitis without obstruction[ICD10: K80.20] Magali Zepeda MD, [facility] CPT-4: 92750 04/04/2018 ([id number]) 07442 EST. PATIENT, LEVEL IV Diagnosis: Other epilepsy, not intractable, without status epilepticus[ICD10: G40.802] Diagnosis: Slow transit constipation[ICD10: K59.01] Diagnosis: Dysuria[ICD10: R30.0] Diagnosis: Age-related osteoporosis without current pathological fracture[ICD10: M81.0] Magali Zepeda MD, [facility] CPT-4: 96323 02/16/2018 ([id number]) 49428 EST. PATIENT, LEVEL III Diagnosis: Slow transit constipation[ICD10: K59.01] Mishel Zepeda MD, [facility] CPT-4: 95375 12/30/2017 ([id number]) 97523 EST. PATIENT, LEVEL IV Diagnosis: Other epilepsy, not intractable, without status epilepticus[ICD10: G40.802] Diagnosis: Slow transit constipation[ICD10: K59.01] Magali Zepeda MD, [facility] CPT-4: 55628 10/13/2017 ([id number]) 71302 EST. PATIENT, LEVEL III Diagnosis: Other epilepsy, not intractable, without status epilepticus[ICD10: G40.802] Diagnosis: Dysuria[ICD10: R30.0] Diagnosis: Mixed incontinence[ICD10: N39.46] Magali Zepeda MD, [facility] CPT- 4: 87099 07/12/2017 ([id number]) 27850 EST. 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 PATIENT, LEVEL III Diagnosis: Other epilepsy, not intractable, without status epilepticus[ICD10: G40.802] Magali Zepeda MD [facility] CPT-4: 03699 04/27/2017 [id number] EST. 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 PATIENT, LEVEL IV Diagnosis: Calculus of gallbladder without cholecystitis without obstruction[ICD10: K80.20] Diagnosis: Benign paroxysmal vertigo, bilateral[ICD10: H81.13] Diagnosis: Slow transit constipation[ICD10: K59.01] Magali Zepeda MD, [facility] CPT-4: 99548 03/02/2017 ([id number]) 73093 EST. PATIENT, LEVEL IV Diagnosis: Rheumatoid arthritis without rheumatoid factor, multiple sites[ICD10: M06.09] Diagnosis: Generalized idiopathic epilepsy and epileptic syndromes, not intractable, with status epilepticus[ICD10: G40.301] Magali Zepeda MD, [facility] CPT-4: 12359 08/30/2016 [id number] EST. PATIENT, LEVEL IV Diagnosis: Other epilepsy, not intractable, without status epilepticus[ICD10: G40.802] Diagnosis: Low back pain[ICD10: M54.5] Diagnosis: Pressure ulcer of sacral region, stage 1[ICD10: L89.151] [facility] CPT-4: 26203 08/11/2016 ([id number]) 25892 EST. PATIENT, LEVEL III Diagnosis: Urinary tract infection, site not specified[ICD10: N39.0] Diagnosis: Slow transit constipation[ICD10: K59.01] [facility] CPT-4: 58631 04/16/2016 ([id number]) OFFICE VISIT, NEW - LEVEL 4 Diagnosis: Other abnormalities of gait and mobility[ICD10: R26.89] Diagnosis: Dysuria[ICD10: R30.0] Diagnosis: Rheumatoid arthritis without rheumatoid factor, multiple sites[ICD10: M06.09] [facility] CPT-4: 51525 02/10/2016 Plan of Care Planned Activity Notes [...] check urinalysis. 09/12/2018 Appointment: Magali Zepeda WPtel: [address] [place], [place] [id number] (15 min) Moderate 09/12/2018 Patient Education: Patient [...] while seated. 08/21/2018 Appointment: Magali Zepeda WPtel: [address] [place], [place] [id number] (15 min) Moderate 08/21/2018 Patient Education: Patient Medication Summary Completed 08/21/2018 Appointment: Lab Draw 08/07/2018 Patient Education: Patient Medication Summary Completed 08/07/2018 Patient Education: Patient Medication Summary Completed 08/03/2018 Visit Plan: Seizures -increase dilantin -repeat dilantin level in 1 week UDU-zoahe-pt cefdinir-finish abx and let us know if your symptoms do not resolve or if any worse 07/20/2018 Appointment: Mishel Wilson WPtel: [phone] [phone] [place] (15 min) Moderate 07/20/2018 Patient Education: Patient Medication Summary Completed 07/20/2018 Visit Plan: URI -viral- Pt advised to increase fluids, vitamin C. Discussed natural and expected course of this diagnosis and need to alert me if symptoms do not follow expected course, or if any worse. RX sent to patient's pharmacy to start if needed. 07/07/2018 Appointment: Mishel Wilson WPtel: [phone] [place] (30 min) Complex 07/07/2018 Patient Education: Patient Medication Summary Completed 07/07/2018 Appointment: Magali Zepeda WPtel: [facility]8 [facility] [place] (15 min) Moderate 07/03/2018 Appointment: Lab [...] house. 05/22/2018 Appointment: Magali Zepeda WPtel: [phone] [facility] [place] (15 min) Moderate 05/22/2018 Patient Education: Patient Medication Summary Completed 05/22/2018 Appointment: Magali Zepeda WPtel: [phone] [facility] [place] (15 min) Moderate 05/15/2018 Visit Plan: [...] gallbladder. 04/04/2018 Appointment: Magali Zepeda WPtel: [phone] [facility] (15 min) Moderate 04/04/2018 Patient Education: Patient Medication Summary Completed 04/04/2018 Patient Education: Diarrhea Completed 04/04/2018 Visit Plan: Epilepsy - chronic - continue with current regimen - check labs. Osteoporosis - pt is currently getting Prolia in [place], this is a big burden for her - They have asked for her to be set up for prolia for at the end of may at [address]- to call with specific date. Dysuria - UA - +leukocytes - start on keflex - rx sent to pharmacy. Chronic constipation - monitor symptoms. Continue with supportive care. 02/16/2018 Appointment: Magali Zepeda WPtel: [phone] [facility] (15 min) Moderate 02/16/2018 Patient Education: [...] regimen. 12/30/2017 Appointment: Mishel Wilson WPtel: [phone] [phone] [place] (30 min) Complex 12/30/2017 Patient [...] this regimen. 10/13/2017 Appointment: Magali Zepeda WPtel: [phone] [facility] [place] (15 min) Moderate 10/13/2017 Patient Education: Patient Medication Summary Completed 10/13/2017 Appointment: Magali Zepeda WPtel: [facility] (15 min) Moderate 10/06/2017 Appointment: Lab [...] on accident 07/12/2017 Appointment: [facility]eda [facility]Ptel[facility] [place] ([facility] min) Moderate 07/12/2017 Patient Education: Patient Medication Summary Completed 07/12/2017 Appointment: Mag[facility]epeda WPtel: [facility] [place] ([facility] min) Moderate 07/05/2017 [...] care surrogate. 06/07/2017 Appointment: Windy Greco WPtel: [facility] [facility] - Annual Wellness Visit 06/07/2017 Patient Education: [...] per week. 05/24/2017 Appointment: Magali Zepeda WPtel: [facility] (15 min) Moderate 05/24/2017 Patient Education: Patient Medication Summary Completed 05/24/2017 Appointment: [phone] (15 min) Moderate 05/11/2017 Visit [...] a week) 04/27/2017 Appointment: Magali Zepeda WPtel: [phone] [facility] (15 min) Moderate 04/27/2017 Patient Education: [...] symptoms. 04/13/2017 Appointment: [facility]el[phone] (15 min) Moderate 04/13/2017 Patient [...] strategy. 03/30/2017 Appointment: Magali Zepeda WPtel: [phone] [facility] [place] (15 min) Moderate 03/30/2017 Patient [...] for constipation. 03/02/2017 Appointment: Magali Zepeda WPtel: [facility] (30 min) Complex 03/02/2017 Patient Education: Patient Medication Summary Completed 03/02/2017 Visit Plan: RA and Gait abnormality -continue with current treatments - supportive care Suspect some of her movement abnormalities may be due to her lamotrigine. 08/30/2016 Appointment: Magali Zepeda WPtel: [facility] (30 min) Complex 08/30/2016 Patient Education: [...] warmth, discharge. 08/11/2016 Appointment: Windy Greco WPtel: [facility] (30 min) Complex 08/11/2016 Patient Education: [...] care surrogate. 06/01/2016 Appointment: Windy Greco WPtel: [facility] [place] [address] - Annual Wellness Visit 06/01/2016 Patient Education: [...] this regimen. 04/16/2016 Appointment: Mishel Wilson WPtel: [phone] (15 min) Moderate 04/16/2016 Patient Education: Patient Medication Summary Completed 04/16/2016 Visit Plan: RA and Gait abnormality - recommended pt to have referral to physical therapy at [facility]. Suspect some of her movement abnormalities may be due to her lamotrigine. 02/10/2016 Appointment: Magali Zepeda WPtel: [facility] New Patient 02/10/2016 Patient Education: Patient [...] worsening redness, warmth, discharge. . Epilepsy - chronic - continue with current regimen - check labs. Osteoporosis - pt is currently getting Prolia in [place], this is a big burden for her - They have asked for her to be set up for prolia for at the end of may at [address]- to call with specific date. Dysuria - UA - +leukocytes - start on keflex - rx sent to pharmacy. Chronic constipation - monitor symptoms. Continue with supportive care. Repeat dilantin level increase to 4/day daily except 3/day on Tuesday/ take a probiotic whiile on antibiotic . Seizures -increase dilantin -repeat dilantin level in 1 week DIO-nutic-nn cefdinir-finish abx and let us know if your symptoms do not resolve or if any worse . Epilepsy - with chronic dilantin use [...] chronic - no change in treatment strategy. RECOMMEND PROBIOTIC-[employer] BRAND IS FINE: [employer], ALIGN sign release for labs from DR [...] and plan for removal of gallbladder. . RA and Gait abnormality -continue with [...] elliptical to be used while seated. . Epilepsy - continue with dilantin - [...]
[2018-12-30] MEDS ORDERED: ONDANSETRON 4 MG/2 ML (SDV) Z0FRAN IVP ONE (22:15)
[2018-12-30] MEDS ORDERED: fentaNYL INJECTION 100 MCG/2 ML AMP IVP PRN ×2 (22:15→22:30)
--- OUTSIDE RECORDS SUMMARY | 2018-12-30 22:15 | XMS REPORT | CCD ---
Author Author Magali Zepeda Organization Magali Zepeda MD, [facility] Address [address] [place] [address] Phone Care Team Providers Care Linux System Engineer Name Role Phone PP Unavailable CCM Unavailable Summary Purpose Interface Exchange Insurance Providers Payer name Policy type / Coverage type Covered democrat ID Effective Begin Date Effective End Date WPS Medicare Part B Medicare Part B [id number] Unknown [employer] Medicare Part B [id number] Unknown Family history Sister Diagnosis Age At [...] Unknown Retired 02/10/[address]: 439540256 Never smoker 02/10/[address]: 727825268 Never drinks alcohol 02/10/2016 Has the patient [...] Instructions Dilantin Extended 100 mg capsule RxNorm: 279825 Capsule(s) TAKE 1 CAP TID ON Mon/Thurs AND 1 CAPSULE QID other days. if having symptoms of seizure activity, take an extra pill 10/17/2018 No Stop Date Active lamotrigine 100 mg tablet RxNorm: 251621 TAKE 1 TABLET BY MOUTH IN THE MORNING 09/29/2018 No Stop Date Active Bactrim DS 800 mg-160 mg tablet RxNorm: 547198 1 Tablet(s) PO BID 09/19/2018 09/18/2018 Inactive Bactrim DS 800 mg-160 mg tablet RxNorm: 942533 1 Tablet(s) PO BID 09/19/2018 09/25/2018 Inactive doxycycline hyclate 100 mg tablet RxNorm: 4732208 1 Tablet(s) PO BID 08/16/2018 08/15/2018 Inactive dc keflex doxycycline hyclate 100 mg tablet RxNorm: 5520118 1 Tablet(s) PO BID 08/16/2018 08/25/2018 Inactive dc keflex lamotrigine 150 mg tablet RxNorm: 961826 TAKE 1 TABLET BY MOUTH AT BEDTIME 08/14/2018 No Stop Date Active Keflex 500 mg capsule RxNorm: 840044 1 Capsule(s) PO TID and probiotic bid x7 08/14/2018 08/15/2018 Inactive Keflex 500 mg capsule RxNorm: 585473 1 Capsule(s) PO TID and probiotic bid x7 08/14/2018 08/13/2018 Inactive Zithromax Z-Escobar 250 mg tablet RxNorm: 795394 2 po on first dose and 1 daily Tablet(s) PO 07/27/2018 08/20/2018 Inactive zpack x 1 Mucinex 600 mg tablet, extended release RxNorm: 880529 1 Tablet(s) PO BID 07/27/2018 07/26/2018 Inactive Mucinex 600 mg tablet, extended release RxNorm: 338878 1 Tablet(s) PO BID 07/27/2018 08/09/2018 Inactive Dilantin Extended 100 mg capsule RxNorm: 821627 Capsule(s) TAKE 1 CAP TID ON Tue/urs AND 1 CAPSULE QID other days. 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 if having symptoms of seizure activity, take an extra pill 05/29/2018 07/19/2018 Inactive Dilantin Extended 100 mg capsule RxNorm: 118953 Capsule(s) TAKE 1 CAP TID x2 DAYS, THEN 1 CAPSULE qid x2 DAYs, THEN REPEAT CYCLE. if having symptoms of seizure activity, take an extra pill 05/22/2018 05/28/2018 Inactive lamotrigine 150 mg tablet RxNorm: 820442 TAKE 1 TABLET BY MOUTH AT BEDTIME 04/17/2018 08/13/2018 Inactive Dilantin Extended 100 mg capsule RxNorm: 803963 TAKE 1 CAPSULE BY MOUTH THREE TIMES DAILY FOR 3 DAYS, THEN 1 CAPSULE FOUR TIMES DAILY FOR 1 DAY, THEN REPEAT CYCLE. 04/12/2018 05/21/2018 Inactive lamotrigine 100 mg tablet RxNorm: 834998 TAKE 1 TABLET BY MOUTH IN THE MORNING 03/31/2018 07/02/2018 Inactive dicyclomine 10 mg capsule RxNorm: 999582 TAKE ONE CAPSULE BY MOUTH TWICE DAILY NEEDED 02/20/2018 No Stop Date Active Keflex 500 mg capsule RxNorm: 163037 1 Capsule(s) PO QID 02/16/2018 02/22/2018 Inactive please call patient to let her know she needs to medicinal plant picker rx for antibiotic Penlac 8 % topical solution RxNorm: 858510 1 Application TOP daily clean off every 7 days and restart application process 02/16/2018 09/13/2018 Inactive ok to dispense generic Dilantin Extended 100 mg capsule RxNorm: 205505 Capsule(s) PO UD 1 cap TID x 3 days then 1 cap qid x 1 day then repeat cycle 12/15/2017 04/11/2018 Inactive give 1 month supply lamotrigine 150 mg tablet RxNorm: 759049 1 Tablet(s) PO QHS 12/07/2017 04/05/2018 Inactive lamotrigine 100 mg tablet RxNorm: 858632 1 Tablet(s) PO QAM 12/07/2017 03/30/2018 Inactive Levaquin 500 mg tablet RxNorm: 806577 1 Tablet(s) PO daily 12/05/2017 12/11/2017 Inactive Keflex 500 mg capsule RxNorm: 800755 1 Capsule(s) PO TID 11/14/2017 11/20/2017 Inactive Keflex 500 mg capsule RxNorm: 171517 1 Capsule(s) PO TID 11/14/2017 11/13/2017 Inactive Dilantin Extended 100 mg capsule RxNorm: 687210 Capsule(s) PO UD m3pill/tue3 pill/wed 4 pill/ thur 2pill/fri 3pill/sat 4pill/sun 3 pill 10/13/2017 12/14/2017 Inactive Dilantin Extended 100 mg capsule RxNorm: 456100 Capsule(s) PO UD -Alternate 300 mg for two days in a row and then 400 mg for one day and repeat cycle 10/04/2017 10/12/2017 Inactive Augmentin 500 mg-125 mg tablet RxNorm: 055417 1 Tablet(s) PO TID 07/15/2017 07/14/2017 Inactive Augmentin 500 mg-125 mg tablet RxNorm: 084001 1 Tablet(s) PO TID 07/15/2017 07/21/2017 Inactive Dilantin Extended 100 mg capsule RxNorm: 376714 1 Capsule(s) PO daily -Alternate 300 mg and 400 mg every other day 06/07/2017 10/03/2017 Inactive Bactrim DS 800 mg-160 mg tablet RxNorm: 815487 1 Tablet(s) PO BID 05/02/2017 05/08/2017 Inactive Dilantin Extended 100 mg capsule RxNorm: 084745 1 Capsule(s) PO daily in the afternoon and 2 Capsules PO HS- Will take an additional pill if she has a lot of jerking 04/27/2017 06/06/2017 Inactive Keflex 500 mg capsule RxNorm: 828101 1 Capsule(s) PO TID 04/19/2017 04/23/2017 Inactive dicyclomine 10 mg capsule RxNorm: 010007 1 Capsule(s) PO BID as needed 03/30/2017 05/28/2017 Inactive Senna with Docusate Sodium 8.6 mg-50 mg tablet RxNorm: 773424 1 Tablet(s) PO BID as needed constipation 03/02/2017 07/29/2017 Inactive Keflex 500 mg capsule RxNorm: 570836 1 Capsule(s) PO TID 08/11/2016 08/20/2016 Inactive Levaquin 500 mg tablet RxNorm: 627424 1 Tablet(s) PO daily 04/16/2016 04/22/2016 Inactive ciprofloxacin 500 mg tablet RxNorm: 723462 1 Tablet(s) PO BID 02/10/2016 02/16/2016 Inactive prednisone 10 mg tablet RxNorm: 281269 1 Tablet(s) PO as needed for pain No Start Date Active Prolia 60 mg/mL subcutaneous syringe RxNorm: 796852 1 injection SQ Q6 months No Start Date Active lamotrigine 150 mg tablet RxNorm: 136705 1 Tablet(s) PO QHS No Start Date 12/06/2017 Inactive lamotrigine 100 mg tablet RxNorm: 858357 1 Tablet(s) PO QAM No Start Date 12/06/2017 Inactive Dilantin Extended 100 mg capsule RxNorm: 661192 Capsule(s) PO TAKES FOUR CAPSULES FOR 2 DAYS, THEN THREE CAPSULES FOR 1 DAY, THEN REPEATS No Start Date 04/26/2017 Inactive Zithromax Z-Escobar 250 mg tablet RxNorm: 554266 2 po on first dose and 1 daily Tablet(s) PO No Start Date 07/26/2018 Inactive zpack x 1 Humira 20 mg/0.4 mL subcutaneous syringe kit RxNorm: 991836 1 injection SQ every 2 weeks- Prescribed [...] Item Code Result Date Dilantin Ord7 DILANTIN 13.0 UG/ML 10/17/2018 Dilantin Ord7 DILANTIN 15.6 UG/ML 09/12/2018 Urine Culture Ucult Complete >100,000 col/ml aerobic growth sent to ref lab 08/08/2018 Dilantin Ord7 DILANTIN 17.9 UG/ML 08/03/2018 Urine Culture Ucult Complete Growth of aerobe sent to ref lab 06/14/2018 Dilantin Ord7 DILANTIN 10.5 UG/ML 05/11/2018 Comp Metabolic Wyr511 NA 138 mEq/L 05/11/2018 Comp Metabolic Jnl925 K 4.0 mEq/L 05/11/2018 Comp Metabolic Plz726 CL 100 mEq/L 05/11/2018 Comp Metabolic Xel388 CO2 29.0 mEq/L 05/11/2018 Comp Metabolic Ihg601 ANION GAP 13 05/11/2018 Comp Metabolic Pju250 GLUCOSE 84 mg/dL 05/11/2018 Comp Metabolic Wii328 Creat 0.8 mg/dL 05/11/2018 Comp Metabolic Ypp068 eGFR 77 ml/min/1.73m2 05/11/2018 Comp Metabolic Ecy043 BUN 26 mg/dL 05/11/2018 Comp Metabolic Cgz508 B/C Ratio 33.3 Ratio 05/11/2018 Comp Metabolic Xdt672 CALCIUM 9.1 mg/dL 05/11/2018 Comp Metabolic Gfk042 ALK PHOS 97 U/L 05/11/2018 Comp Metabolic Fkw908 AST(SGOT) 14 U/L 05/11/2018 Comp Metabolic Tyc638 ALT(SGPT) 7 U/L 05/11/2018 Comp Metabolic Yet171 BILI T 0.3 mg/dL 05/11/2018 Comp Metabolic Hsk597 ALBUMIN 3.6 g/dL 05/11/2018 Comp Metabolic Tsp447 TPRO 6.9 g/dL 05/11/2018 Comp Metabolic Mhb134 GLOB 3.3 g/dL 05/11/2018 Comp Metabolic Rsi111 A/G Ratio 1.1 Ratio 05/11/2018 Comp Metabolic Tpm012 Osmo 280 mOsmo 05/11/2018 Dilantin Ord7 DILANTIN 10.7 UG/ML 04/25/2018 Valproic Acid Xge590 VALPROIC <10 ug/ml 04/24/2018 Dilantin Ord7 DILANTIN 10.6 UG/ML 04/11/2018 Culture Urine [id number] URINE CULTURE SEE NOTES 02/20/2018 Culture Urine [id number] Continued Results 02/20/2018 Urine Culture Ucult Complete >100,000 col/ml aerobic growth sent to ref lab 02/17/2018 Dilantin Ord7 DILANTIN 14.4 UG/ML 02/16/2018 Comp Metabolic Sxt509 NA 135 mEq/L 02/16/2018 Comp Metabolic Wsp342 K 3.8 mEq/L 02/16/2018 Comp Metabolic Ttd902 CL 99 mEq/L 02/16/2018 Comp Metabolic Miu354 CO2 28.0 mEq/L 02/16/2018 Comp Metabolic Xlo193 ANION GAP 12 02/16/2018 Comp Metabolic Mqg561 GLUCOSE 101 mg/dL 02/16/2018 Comp Metabolic Jxq679 Creat 0.8 mg/dL 02/16/2018 Comp Metabolic Nxj450 eGFR 75 ml/min/1.73m2 02/16/2018 Comp Metabolic Qwi872 BUN 20 mg/dL 02/16/2018 Comp Metabolic Unl179 B/C Ratio 25.0 Ratio 02/16/2018 Comp Metabolic Obb505 CALCIUM 8.9 mg/dL 02/16/2018 Comp Metabolic Tka301 ALK PHOS 95 U/L 02/16/2018 Comp Metabolic Rey961 AST(SGOT) 13 U/L 02/16/2018 Comp Metabolic Ovh233 ALT(SGPT) 7 U/L 02/16/2018 Comp Metabolic Rkz002 BILI T 0.4 mg/dL 02/16/2018 Comp Metabolic Ucw696 ALBUMIN 3.6 g/dL 02/16/2018 Comp Metabolic Qyy262 TPRO 7.2 g/dL 02/16/2018 Comp Metabolic Std651 GLOB 3.6 g/dL 02/16/2018 Comp Metabolic Rdv177 A/G Ratio 1.0 Ratio 02/16/2018 Comp Metabolic Imn419 Osmo 273 mOsmo 02/16/2018 Urine Culture Ucult Complete >100,000 col/ml aerobic growth sent to ref lab 11/15/2017 Comp Metabolic Dtp664 NA 136 mEq/L 10/13/2017 Comp Metabolic Djz725 K 4.0 mEq/L 10/13/2017 Comp Metabolic Ehz587 CL 98 mEq/L 10/13/2017 Comp Metabolic Wzg526 CO2 28.0 mEq/L 10/13/2017 Comp Metabolic Spc918 ANION GAP 14 10/13/2017 Comp Metabolic Ptd788 GLUCOSE 94 mg/dL 10/13/2017 Comp Metabolic Oon280 Creat 0.7 mg/dL 10/13/2017 Comp Metabolic Hox300 eGFR 82 ml/min/1.73m2 10/13/2017 Comp Metabolic Dgi657 BUN 26 mg/dL 10/13/2017 Comp Metabolic Wob121 B/C Ratio 35.1 Ratio 10/13/2017 Comp Metabolic Ydu996 CALCIUM 9.1 mg/dL 10/13/2017 Comp Metabolic Acj905 ALK PHOS 98 U/L 10/13/2017 Comp Metabolic Aoz613 AST(SGOT) 15 U/L 10/13/2017 Comp Metabolic Bkl859 ALT(SGPT) 8 U/L 10/13/2017 Comp Metabolic Edl324 BILI T 0.4 mg/dL 10/13/2017 Comp Metabolic Npk298 ALBUMIN 3.7 g/dL 10/13/2017 Comp Metabolic Jwn110 TPRO 7.8 g/dL 10/13/2017 Comp Metabolic Fbg197 GLOB 4.1 g/dL 10/13/2017 Comp Metabolic Uml118 A/G Ratio 0.9 Ratio 10/13/2017 Comp Metabolic Kec975 Osmo 276 mOsmo 10/13/2017 Dilantin Ord7 DILANTIN 21.4 Result Verified By Repeat Analysis UG/ML 10/13/2017 Dilantin Ord7 DILANTIN 24.1 Result Verified By Repeat Analysis UG/ML 10/03/2017 Dilantin Ord7 DILANTIN 18.1 UG/ML 06/30/2017 Dilantin Ord7 DILANTIN 22.7 UG/ML 06/16/2017 Dilantin Ord7 DILANTIN 26.1 UG/ML 06/07/2017 Dilantin Ord7 DILANTIN 24.1 UG/ML 05/24/2017 Dilantin Ord7 DILANTIN 19.6 UG/ML 05/11/2017 Culture Urine [id number] URINE CULTURE SEE NOTES 05/06/2017 Culture Urine [id number] Continued Results 05/06/2017 Urine Culture Ucult Complete >100,000 col/ml aerobic growth sent to ref lab 05/03/2017 Dilantin Ord7 DILANTIN 12.6 UG/ML 04/27/2017 Calcium Ord79 CALCIUM 9.3 mg/dL 04/19/2017 Dilantin Ord7 DILANTIN 21.6 UG/ML 04/19/2017 Dilantin Ord7 DILANTIN 10.3 UG/ML 04/13/2017 Dilantin Ord7 DILANTIN 21.9 UG/ML 04/07/2017 Comp Metabolic Wiq579 NA 137 mEq/L 03/30/2017 Comp Metabolic Kwp887 K 3.7 mEq/L 03/30/2017 Comp Metabolic Rxn424 CL 98 mEq/L 03/30/2017 Comp Metabolic Gna584 CO2 29.0 mEq/L 03/30/2017 Comp Metabolic Gkv082 ANION GAP 14 03/30/2017 Comp Metabolic Wjx579 GLUCOSE 100 mg/dL 03/30/2017 Comp Metabolic Qix929 Creat 0.9 mg/dL 03/30/2017 Comp Metabolic Xwd114 eGFR 88 ml/min/1.73m2 03/30/2017 Comp Metabolic Eqc098 BUN 22 mg/dL 03/30/2017 Comp Metabolic Wqt792 B/C Ratio 24.4 Ratio 03/30/2017 Comp Metabolic Asv675 CALCIUM 9.4 mg/dL 03/30/2017 Comp Metabolic Zgh692 ALK PHOS 113 U/L 03/30/2017 Comp Metabolic Ngo455 AST(SGOT) 16 U/L 03/30/2017 Comp Metabolic Okn927 ALT(SGPT) 7 U/L 03/30/2017 Comp Metabolic Onu833 BILI T 0.3 mg/dL 03/30/2017 Comp Metabolic Cdc688 ALBUMIN 3.9 g/dL 03/30/2017 Comp Metabolic Ors064 TPRO 8.0 g/dL 03/30/2017 Comp Metabolic Xhl152 GLOB 4.1 g/dL 03/30/2017 Comp Metabolic Nmq938 A/G Ratio 0.9 Ratio 03/30/2017 Comp Metabolic Jnk112 Osmo 277 mOsmo 03/30/2017 Lipid Ord30 CHOL 214 mg/dL 03/30/2017 Lipid Ord30 HDL 61.0 mg/dl 03/30/2017 Lipid Ord30 TRIG 130 mg/dL 03/30/2017 Lipid Ord30 LDL 127 mg/dL 03/30/2017 Lipid Ord30 C/HDL 3.5 Ratio 03/30/2017 Dilantin Ord7 DILANTIN 32.5 UG/ML 03/30/2017 Folate Ord36 Folate 16.46 ng/mL 03/30/2017 Tsh Ord6 hTSH II 0.95 uIU/mL 03/30/2017 B12 Pvd741 B12 592.00 pg/ml 03/30/2017 Cbc With Differential [...] 30.9 pg 03/30/2017 Cbc With Differential Ord2 [place]% 23.9 % 03/30/2017 Cbc With Differential Ord2 [...] 0.44 K/ul 03/30/2017 Cbc With Differential Ord2 [place] ABS# 0.3 K/ul 03/30/2017 Cbc With Differential [...] 30.3 pg 08/11/2016 Cbc With Differential Ord2 [place]% 31.7 % 08/11/2016 Cbc With Differential Ord2 [...] 0.59 K/ul 08/11/2016 Cbc With Differential Ord2 [place] ABS# 0.6 K/ul 08/11/2016 Cbc With Differential Ord2 [place] ABS# 0.0 K/ul 08/11/2016 Cbc With Differential Ord2 Baso ABS# 0.0 K/ul 08/11/2016 Dilantin Ord7 DILANTIN 17.2 UG/ML 08/11/2016 Tsh Ord6 hTSH II 0.82 uIU/mL 08/11/2016 Comp Metabolic Xaz343 NA 131 mEq/L 08/11/2016 Comp Metabolic Cva903 K 4.1 mEq/L 08/11/2016 Comp Metabolic Jxg884 CL 93 mEq/L 08/11/2016 Comp Metabolic Urd920 CO2 29.0 mEq/L 08/11/2016 Comp Metabolic Oeg981 ANION GAP 13 08/11/2016 Comp Metabolic Qnr253 GLUCOSE 120 mg/dL 08/11/2016 Comp Metabolic Ubv176 Creat 0.8 mg/dL 08/11/2016 Comp Metabolic Jvw763 eGFR 101 ml/min/1.73m2 08/11/2016 Comp Metabolic Onz926 BUN 18 mg/dL 08/11/2016 Comp Metabolic Ehh754 B/C Ratio 22.5 Ratio 08/11/2016 Comp Metabolic Vxt819 CALCIUM 9.5 mg/dL 08/11/2016 Comp Metabolic Lbu255 ALK PHOS 104 U/L 08/11/2016 Comp Metabolic Paw297 AST(SGOT) 16 U/L 08/11/2016 Comp Metabolic Ysh032 ALT(SGPT) 8 U/L 08/11/2016 Comp Metabolic Vwm350 BILI T 0.4 mg/dL 08/11/2016 Comp Metabolic Tee716 ALBUMIN 3.8 g/dL 08/11/2016 Comp Metabolic Ewu204 TPRO 8.4 g/dL 08/11/2016 Comp Metabolic Tbm356 GLOB 4.6 g/dL 08/11/2016 Comp Metabolic Kze663 A/G Ratio 0.8 Ratio 08/11/2016 Comp Metabolic Xcd246 Osmo 266 mOsmo 08/11/2016 Culture Urine [id number] URINE CULTURE SEE NOTES 04/19/2016 Culture Urine [id number] Continued Results 04/19/2016 Urine Culture Ucult Complete >100,000 col/ml aerobic growth sent to ref lab 04/17/2016 Culture Urine [id number] URINE CULTURE SEE NOTES 02/13/2016 Culture Urine [id number] Continued Results 02/13/2016 Urine Culture Ucult Complete [...] Codes Date URINALYSIS NONAUTO W/O SCOPE CPT-4: 73308 09/14/2018 URINALYSIS NONAUTO W/O SCOPE CPT-4: 13586 08/07/2018 URINALYSIS NONAUTO W/O SCOPE CPT-4: 59961 06/12/2018 URINALYSIS NONAUTO W/O SCOPE CPT-4: 32987 02/16/2018 URINALYSIS NONAUTO W/O SCOPE CPT-4: 48386 11/14/2017 PPPS, SUBSEQ VISIT CPT- 4: G0439 06/07/2017 URINALYSIS NONAUTO W/O SCOPE CPT-4: 42040 05/02/2017 URINALYSIS NONAUTO W/O SCOPE CPT-4: 29858 04/26/2017 PPPS, SUBSEQ VISIT CPT- 4: G0439 06/01/2016 URINALYSIS NONAUTO W/O SCOPE CPT-4: 61126 04/16/2016 URINALYSIS NONAUTO W/O SCOPE CPT-4: 56581 02/10/2016 Vital Signs Date Vital 09/12/2018 Blood Pressure 1: 106/60 Code: 8480-6 BMI: 17.5 Code: 39438-1 Heart Rate 1: 100 bpm Height: 5'5" SpO2: 97% Weight: 105 lbs 08/21/2018 Blood Pressure 1: 96/60 Code: 8480-6 Heart Rate 1: 114 bpm Height: 5'5" SpO2: 98% Weight: 07/20/2018 Blood Pressure 1: 104/60 Code: 8480-6 Heart Rate 1: 122 bpm Height: 5'5" SpO2: 94% Temperature: 36.7 (C) / 98.1 (F) Weight: 07/07/2018 Blood Pressure 1: 110/62 Code: 8480-6 BMI: 18.8 Code: 21591-3 Heart Rate 1: 67 bpm Height: 5'5" Temperature: 36.8 (C) / 98.2 (F) Weight: 113 lbs 05/22/2018 Blood Pressure 1: 112/68 Code: 8480-6 BMI: 18.6 Code: 83858-6 Heart Rate 1: 128 bpm Height: 5'5" SpO2: 98% Weight: 112 lbs 04/04/2018 Blood Pressure 1: 94/52 Code: 8480-6 Heart Rate 1: 120 bpm Height: 5'5" Respiratory Rate: 18 bpm SpO2: 98% Weight: 02/16/2018 Blood Pressure 1: 120/70 Code: 8480-6 BMI: 19.1 Code: 79202-7 Heart Rate 1: 115 bpm Height: 5'5" SpO2: 97% Weight: 115 lbs 12/30/2017 Blood Pressure 1: 100/68 Code: 8480-6 BMI: 18.3 Code: 76242-8 Heart Rate 1: 120 bpm Height: 5'5" SpO2: 94% Weight: 110 lbs 10/13/2017 Blood Pressure 1: 136/78 Code: 8480-6 BMI: 18.1 Code: 05111-6 Heart Rate 1: 126 bpm Height: 5'5" SpO2: 96% Weight: 109 lbs 07/12/2017 Blood Pressure 1: 100/56 Code: 8480-6 BMI: 18.1 Code: 14063-6 Heart Rate 1: 123 bpm Height: 5'5" SpO2: 99% Weight: 109 lbs 06/07/2017 Blood Pressure 1: 98/68 Code: 8480-6 BMI: 18.1 Code: 66810- 5 Heart Rate 1: 120 bpm Height: 5'5" SpO2: 99% Waist Measure (cm): 80 cm Weight: 109 lbs 05/24/2017 Blood Pressure 1: 104/62 Code: 8480-6 BMI: 18.1 Code: 49113-7 Heart Rate 1: 121 bpm Height: 5'5" SpO2: 97% Weight: 109 lbs 04/27/2017 Blood Pressure 1: 132/84 Code: 8480-6 BMI: 17.8 Code: 08127-4 Heart Rate 1: 129 bpm Height: 5'5" SpO2: 99% Weight: 107 lbs 04/13/2017 Blood Pressure 1: 100/66 Code: 8480-6 Heart Rate 1: 120 bpm Height: 5'5" SpO2: 99% Weight: 03/30/2017 Blood Pressure 1: 112/66 Code: 8480-6 BMI: 17.8 Code: 56076-9 Heart Rate 1: 112 bpm Height: 5'5" SpO2: 98% Weight: 107 lbs 03/02/2017 Blood Pressure 1: 128/78 Code: 8480-6 BMI: 18.1 Code: 82754-9 Heart Rate 1: 86 bpm Height: 5'5" SpO2: 95% Weight: 109 lbs 08/30/2016 Blood Pressure 1: 102/60 Code: 8480-6 BMI: 18.1 Code: 50394-4 Heart Rate 1: 135 bpm Height: 5'5" SpO2: 98% Weight: 109 lbs 08/11/2016 Blood Pressure 1: 100/66 Code: 8480-6 BMI: 18.6 Code: 30013-4 Heart Rate 1: 86 bpm Height: 5'5" SpO2: 94% Weight: 112 lbs 06/01/2016 Blood Pressure 1: 126/80 Code: 8480-6 BMI: 19.0 Code: 27107-3 Heart Rate 1: 100 bpm Height: 5'5" SpO2: 98% Waist Measure (cm): 64 cm Weight: 114 lbs 04/16/2016 Blood Pressure 1: 124/80 Code: 8480-6 Heart Rate 1: 110 bpm SpO2: 97% 02/10/2016 Blood Pressure 1: 102/64 Code: 8480-6 BMI: 18.3 Code: 91717-2 Heart Rate 1: 114 bpm Height: 5'5" [...] data Encounters Encounter Performer Location Codes Date ([id number]) [id number] EST. PATIENT, LEVEL III Diagnosis: Other epilepsy, not intractable, without status epilepticus[ICD10: G40.802] Diagnosis: Muscle weakness (generalized)[ICD10: M62.81] Magali Zepeda MD, [facility] CPT-4: 03300 09/12/2018 ([id number]) [id number] EST. PATIENT, LEVEL IV Diagnosis: Unsteadiness on feet[ICD10: R26.81] Diagnosis: Other epilepsy, not intractable, without status epilepticus[ICD10: G40.802] Diagnosis: Muscle weakness (generalized)[ICD10: M62.81] Magali Zepeda MD, [facility] CPT-4: 60243 08/21/2018 ([id number]) [id number] EST. PATIENT, LEVEL III Diagnosis: Cough[ICD10: R05] Diagnosis: Other epilepsy, not intractable, without status epilepticus[ICD10: G40.802] [facility] CPT-4: 85478 07/20/2018 ([id number]) 17712 EST. PATIENT, LEVEL III Diagnosis: Cough[ICD10: R05] Diagnosis: Acute upper respiratory infection, unspecified[ICD10: J06.9] [facility] CPT-4: 58070 07/07/2018 ([id number]) 71844 EST. PATIENT, LEVEL IV Diagnosis: Unsteadiness on feet[ICD10: R26.81] Diagnosis: Other abnormalities of gait and mobility[ICD10: R26.89] Diagnosis: Mixed incontinence[ICD10: N39.46] Diagnosis: Other epilepsy, not intractable, without status epilepticus[ICD10: G40.802] Magali Zepeda MD, [facility] CPT-4: 38003 05/22/2018 ([id number]) [id number] EST. PATIENT, LEVEL III Diagnosis: Right upper quadrant abdominal rigidity[ICD10: R19.31] Diagnosis: Functional diarrhea[ICD10: K59.1] Diagnosis: Calculus of gallbladder without cholecystitis without obstruction[ICD10: K80.20] Magail Zepeda MD, [facility] CPT-4: 55524 04/04/2018 ([id number]) 61242 EST. PATIENT, LEVEL IV Diagnosis: Other epilepsy, not intractable, without status epilepticus[ICD10: G40.802] Diagnosis: Slow transit constipation[ICD10: K59.01] Diagnosis: Dysuria[ICD10: R30.0] Diagnosis: Age-related osteoporosis without current pathological fracture[ICD10: M81.0] Magali Zepeda MD, [facility] CPT-4: 90774 02/16/2018 ([id number]) 76612 EST. PATIENT, LEVEL III Diagnosis: Slow transit constipation[ICD10: K59.01] Mishel Zepeda MD [facility] CPT-4: 12388 12/30/2017 ([id number]) 48358 EST. PATIENT, LEVEL IV Diagnosis: Other epilepsy, not intractable, without status epilepticus[ICD10: G40.802] Diagnosis: Slow transit constipation[ICD10: K59.01] Magali Zepeda MD, [facility] CPT-4: 19329 10/13/2017 ([id number]) 26707 EST. PATIENT, LEVEL III Diagnosis: Other epilepsy, not intractable, without status epilepticus[ICD10: G40.802] Diagnosis: Dysuria[ICD10: R30.0] Diagnosis: Mixed incontinence[ICD10: N39.46] Magali Zepeda MD, [facility] CPT- 4: 82205 07/12/[id number]) 71238 EST. 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 PATIENT, LEVEL III Diagnosis: Other epilepsy, not intractable, without status epilepticus[ICD10: G40.802] Magali Zepeda MD, [facility] CPT-4: 30850 04/27/2017 [id number] EST. 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 PATIENT, LEVEL IV Diagnosis: Calculus of gallbladder without cholecystitis without obstruction[ICD10: K80.20] Diagnosis: Benign paroxysmal vertigo, bilateral[ICD10: H81.13] Diagnosis: Slow transit constipation[ICD10: K59.01] Magali Zepeda MD, [facility] CPT-4: 28882 03/02/[phone]) [id number] EST. 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 PATIENT, LEVEL IV Diagnosis: Other epilepsy, not intractable, without status epilepticus[ICD10: G40.802] Diagnosis: Low back pain[ICD10: M54.5] Diagnosis: Pressure ulcer of sacral region, stage 1[ICD10: L89.151] [facility] CPT-4: 59616 08/11/2016 ([id number]) 31757 EST. PATIENT, LEVEL III Diagnosis: Urinary tract infection, site not specified[ICD10: N39.0] Diagnosis: Slow transit constipation[ICD10: K59.01] [facility] CPT-4: 64062 04/16/2016 ([id number]) OFFICE VISIT, NEW - LEVEL 4 Diagnosis: Other abnormalities of gait and mobility[ICD10: R26.89] Diagnosis: Dysuria[ICD10: R30.0] Diagnosis: Rheumatoid arthritis without rheumatoid factor, multiple sites[ICD10: M06.09] [facility] CPT-4: 85703 02/10/2016 Plan of Care Planned Activity Notes [...] check urinalysis. 09/12/2018 Appointment: Magali Zepeda WPtel: [address] [place], [place] [id number] (15 min) Moderate 09/12/2018 Patient Education: Patient [...] while seated. 08/21/2018 Appointment: Magali Zepeda WPtel: [id number] (15 min) Moderate 08/21/2018 Patient Education: Patient Medication Summary Completed 08/21/2018 Appointment: Lab Draw 08/07/2018 Patient Education: Patient Medication Summary Completed 08/07/2018 Patient Education: Patient Medication Summary Completed 08/03/2018 Visit Plan: Seizures -increase dilantin -repeat dilantin level in 1 week [id number] cefdinir-finish abx and let us know if your symptoms do not resolve or if any worse 07/20/2018 Appointment: Mishel Wilson WPtel: [facility]0 [phone] (15 min) Moderate 07/20/2018 Patient Education: Patient Medication Summary Completed 07/20/2018 Visit Plan: URI -viral- Pt advised to increase fluids, vitamin C. Discussed natural and expected course of this diagnosis and need to alert me if symptoms do not follow expected course, or if any worse. RX sent to patient's pharmacy to start if needed. 07/07/2018 Appointment: iMshel Wilson WPtel: [facility]6 [phone] [place] (30 min) Complex 07/07/2018 Patient Education: Patient Medication Summary Completed 07/07/2018 Appointment: Magali Zepeda WPtel: [facility]5 [phone] [place] (15 min) Moderate 07/03/2018 Appointment: Lab [...] the house. 05/22/2018 Appointment: Mag[facility]epeda [facility]Ptel[phone] [place] [place] (15 min) Moderate 05/22/2018 Patient Education: Patient Medication Summary Completed 05/22/2018 Appointment: Magali Zepeda WPtel: [phone] [phone] [place] (15 min) Moderate 05/15/2018 Visit Plan: [...] Zepeda WPtel: [phone] [facility] [place] (15 min) Moderate 04/04/2018 Patient Education: Patient Medication Summary Completed 04/04/2018 Patient Education: Diarrhea Completed 04/04/2018 Visit Plan: Epilepsy - chronic - continue with current regimen - check labs. Osteoporosis - pt is currently getting Prolia in [place], this is a big burden for her - They have asked for her to be set up for prolia for at the end of may at [address]- to call with specific date. Dysuria - UA - +leukocytes - start on keflex - rx sent to pharmacy. Chronic constipation - monitor symptoms. Continue with supportive care. 02/16/2018 Appointment: Mag[facility] Zepeda WPtel[phone] [place] [place] (15 min) Moderate 02/16/2018 Patient Education: [...] regimen. 12/30/2017 Appointment: Mishel Wilson WPtel: [phone] [phone] [place] (30 min) Complex 12/30/2017 [...] this regimen. 10/13/2017 Appointment: Magali Zepeda WPtel: [facility]0 [phone] (15 min) Moderate 10/13/2017 Patient Education: Patient Medication Summary Completed 10/13/2017 Appointment: Magali Zepeda WPtel: [facility]7 [facility] [place] (15 min) Moderate 10/06/2017 Appointment: Lab Draw [...] on accident 07/12/2017 Appointment: Magali Zepeda WPtel: [facility] [place] [place] (15 min) Moderate 07/12/2017 Patient Education: Patient Medication Summary Completed 07/12/2017 Appointment: Magali Zepeda WPtel: [phone] [phone] [place] (15 min) Moderate 07/05/2017 Visit Plan: [...] surrogate. 06/07/2017 Appointment: Wind[facility]el[phone] [facility] - Annual Wellness Visit 06/07/2017 [...] per week. 05/24/2017 Appointment: Magali Zepeda WPtel: [phone] [place] (15 min) Moderate 05/24/2017 Patient Education: Patient Medication Summary Completed 05/24/2017 Appointment: Magali Zepeda WPtel: [phone] [place] (15 min) Moderate 05/11/2017 Visit Plan: UTI [...] a week) 04/27/2017 Appointment: Magali Zepeda WPtel: [facility]7 [phone] (15 min) Moderate 04/27/2017 Patient Education: Patient [...] monitor symptoms. 04/13/2017 Appointment: Magali Zepeda WPtel: [facility]7 [facility] [place] (15 min) Moderate 04/13/2017 Patient Education: Patient [...] treatment strategy. 03/30/2017 Appointment: Magali Zepeda WPtel: [facility]5 [facility] [place] [place] (15 min) Moderate 03/30/2017 Patient Education: [...] for constipation. 03/02/2017 Appointment: Magali Zepeda WPtel: [facility]5 [phone] [place] (30 min) Complex 03/02/2017 Patient Education: Patient Medication Summary Completed 03/02/2017 Visit Plan: RA and Gait abnormality -continue with current treatments - supportive care Suspect some of her movement abnormalities may be due to her lamotrigine. 08/30/2016 Appointment: Magali Zepeda WPtel: [address] [place] [address] [place] (30 min) Complex 08/30/2016 Patient Education: [...] discharge. 08/11/2016 Appointment: Wind[facility]co [facility]Ptel[phone] (30 min) Complex 08/11/2016 Patient Education: [...] care surrogate. 06/01/2016 Appointment: Windy Greco WPtel: [phone] [facility] [facility] - Annual Wellness Visit 06/01/2016 [...] regimen. 04/16/2016 Appointment: Mishel Wilson WPtel: [phone] [phone] (15 min) Moderate 04/16/2016 Patient Education: Patient Medication Summary Completed 04/16/2016 Visit Plan: RA and Gait abnormality - recommended pt to have referral to physical therapy at via [facility]. Suspect some of her movement abnormalities may be due to her lamotrigine. 02/10/2016 Appointment: Magali Zepeda WPtel: [phone] [facility] [place] [place] New Patient 02/10/2016 Patient Education: Patient [...] therapy as well as nursing oversight post-operatively. Repeat dilantin level increase to 4/day daily except 3/day on Tuesday/ take a probiotic whiile on antibiotic . Seizures -increase dilantin -repeat dilantin level in 1 week [id number] cefdinir-finish abx and let us know if your symptoms do not resolve or if any worse . RA and Gait abnormality - recommended pt to have referral to physical therapy at via [facility]. Suspect some of her movement abnormalities may [...] - pt is currently getting Prolia in [place], this is a big burden for her [...] malaise - check urinalysis. . Epilepsy - continue with dilantin - [...] this regimen. RECOMMEND PROBIOTIC-ANY BRAND IS FINE: [facility] LINE Nala, ALIGN sign release for labs from DR [...]
--- OUTSIDE RECORDS SUMMARY | 2018-12-30 22:19 | XMS REPORT | CCD ---
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 Name Role Phone PP Unavailable CCM Unavailable Summary Purpose Interface Exchange Insurance Providers Payer name Policy type / Coverage type Covered green party ID Effective Begin Date Effective End Date WPS Medicare Part B Medicare Part B [id number] Unknown [employer] [place] Medicare Part B [id number] Unknown Family history Sister Diagnosis Age At Onset Epilepsy Unknown Son Diagnosis Age At Onset lymphoma Unknown Brother Diagnosis Age At Onset Stroke Unknown Diabetes mellitus Type 2 Unknown Alcoholism Unknown Mother Diagnosis Age At Onset Stroke Unknown Hypertension Unknown Social History Social History Element Codes Description Effective Dates Marital status Unknown [place]se [place] 02/10/2016 Number of children Unknown 2 02/10/2016 Employment Unknown Retired 02/10/[address]: 578880220 Never smoker 02/10/[address]: 084188873 Never drinks alcohol 02/10/2016 Has the patient [...] Instructions Dilantin Extended 100 mg capsule RxNorm: 735640 Capsule(s) TAKE 1 CAP TID ON Mon/Thurs AND 1 CAPSULE QID other days. if having symptoms of seizure activity, take an extra pill 10/17/2018 No Stop Date Active lamotrigine 100 mg tablet RxNorm: 502046 TAKE 1 TABLET BY MOUTH IN THE MORNING 09/29/2018 No Stop Date Active Bactrim DS 800 mg-160 mg tablet RxNorm: 887159 1 Tablet(s) PO BID 09/19/2018 09/18/2018 Inactive Bactrim DS 800 mg-160 mg tablet RxNorm: 538802 1 Tablet(s) PO BID 09/19/2018 09/25/2018 Inactive doxycycline hyclate 100 mg tablet RxNorm: 2812778 1 Tablet(s) PO BID 08/16/2018 08/15/2018 Inactive dc keflex doxycycline hyclate 100 mg tablet RxNorm: 4197783 1 Tablet(s) PO BID 08/16/2018 08/25/2018 Inactive dc keflex lamotrigine 150 mg tablet RxNorm: 132668 TAKE 1 TABLET BY MOUTH AT BEDTIME 08/14/2018 No Stop Date Active Keflex 500 mg capsule RxNorm: 441731 1 Capsule(s) PO TID and probiotic bid x7 08/14/2018 08/15/2018 Inactive Keflex 500 mg capsule RxNorm: 139315 1 Capsule(s) PO TID and probiotic bid x7 08/14/2018 08/13/2018 Inactive Zithromax Z-Escobar 250 mg tablet RxNorm: 491836 2 po on first dose and 1 daily Tablet(s) PO 07/27/2018 08/20/2018 Inactive zpack x 1 Mucinex 600 mg tablet, extended release RxNorm: 665161 1 Tablet(s) PO BID 07/27/2018 07/26/2018 Inactive Mucinex 600 mg tablet, extended release RxNorm: 128410 1 Tablet(s) PO BID 07/27/2018 08/09/2018 Inactive Dilantin Extended 100 mg capsule RxNorm: 550602 Capsule(s) TAKE 1 CAP TID ON Tue/urs AND 1 CAPSULE QID other days. if having symptoms of seizure activity, take an extra pill 07/20/2018 10/16/2018 Inactive amoxicillin 500 mg tablet RxNorm: 486626 1 Tablet(s) PO TID 07/07/2018 07/13/2018 Inactive lamotrigine 100 mg tablet RxNorm: 074986 TAKE 1 TABLET BY MOUTH IN THE MORNING 07/03/2018 09/28/2018 Inactive Keflex 500 mg capsule RxNorm: 532243 1 Capsule(s) PO QID 06/12/2018 06/18/2018 Inactive please call patient to let her know she needs to [facility] for antibiotic Dilantin Extended 100 mg capsule RxNorm: 042914 Capsule(s) TAKE 1 CAP TID ON /TUE AND 1 CAPSULE QID ON ///TUE. if having symptoms of seizure activity, take an extra pill 05/29/2018 07/19/2018 Inactive Dilantin Extended 100 mg capsule RxNorm: 429816 Capsule(s) TAKE 1 CAP TID x2 DAYS, THEN 1 CAPSULE qid x2 DAYs, THEN REPEAT CYCLE. if having symptoms of seizure activity, take an extra pill 05/22/2018 05/28/2018 Inactive lamotrigine 150 mg tablet RxNorm: 811546 TAKE 1 TABLET BY MOUTH AT BEDTIME 04/17/2018 08/13/2018 Inactive Dilantin Extended 100 mg capsule RxNorm: 972383 TAKE 1 CAPSULE BY MOUTH THREE TIMES DAILY FOR 3 DAYS, THEN 1 CAPSULE FOUR TIMES DAILY FOR 1 DAY, THEN REPEAT CYCLE. 04/12/2018 05/21/2018 Inactive lamotrigine 100 mg tablet RxNorm: 182488 TAKE 1 TABLET BY MOUTH IN THE MORNING 03/31/2018 07/02/2018 Inactive dicyclomine 10 mg capsule RxNorm: 618629 TAKE ONE CAPSULE BY MOUTH TWICE DAILY NEEDED 02/20/2018 No Stop Date Active Keflex 500 mg capsule RxNorm: 235510 1 Capsule(s) PO QID 02/16/2018 02/22/2018 Inactive please call patient to let her know she needs to [facility] for antibiotic Penlac 8 % topical solution RxNorm: 250066 1 Application TOP daily clean off every 7 days and restart application process 02/16/2018 09/13/2018 Inactive ok to dispense generic Dilantin Extended 100 mg capsule RxNorm: 396031 Capsule(s) PO UD 1 cap TID x 3 days then 1 cap qid x 1 day then repeat cycle 12/15/2017 04/11/2018 Inactive give 1 month supply lamotrigine 150 mg tablet RxNorm: 753006 1 Tablet(s) PO QHS 12/07/2017 04/05/2018 Inactive lamotrigine 100 mg tablet RxNorm: 064703 1 Tablet(s) PO QAM 12/07/2017 03/30/2018 Inactive Levaquin 500 mg tablet RxNorm: 383219 1 Tablet(s) PO daily 12/05/2017 12/11/2017 Inactive Keflex 500 mg capsule RxNorm: 468966 1 Capsule(s) PO TID 11/14/2017 11/20/2017 Inactive Keflex 500 mg capsule RxNorm: 730243 1 Capsule(s) PO TID 11/14/2017 11/13/2017 Inactive Dilantin Extended 100 mg capsule RxNorm: 881964 Capsule(s) PO UD m3pill/tue3 pill/wed 4 pill/ thur 2pill/fri 3pill/sat 4pill/sun 3 pill 10/13/2017 12/14/2017 Inactive Dilantin Extended 100 mg capsule RxNorm: 415773 Capsule(s) PO UD -Alternate 300 mg for two days in a row and then 400 mg for one day and repeat cycle 10/04/2017 10/12/2017 Inactive Augmentin 500 mg-125 mg tablet RxNorm: 908646 1 Tablet(s) PO TID 07/15/2017 07/14/2017 Inactive Augmentin 500 mg-125 mg tablet RxNorm: 612423 1 Tablet(s) PO TID 07/15/2017 07/21/2017 Inactive Dilantin Extended 100 mg capsule RxNorm: 518567 1 Capsule(s) PO daily -Alternate 300 mg and 400 mg every other day 06/07/2017 10/03/2017 Inactive Bactrim DS 800 mg-160 mg tablet RxNorm: 188713 1 Tablet(s) PO BID 05/02/2017 05/08/2017 Inactive Dilantin Extended 100 mg capsule RxNorm: 647336 1 Capsule(s) PO daily in the afternoon and 2 Capsules PO HS- Will take an additional pill if she has a lot of jerking 04/27/2017 06/06/2017 Inactive Keflex 500 mg capsule RxNorm: 457842 1 Capsule(s) PO TID 04/19/2017 04/23/2017 Inactive dicyclomine 10 mg capsule RxNorm: 898885 1 Capsule(s) PO BID as needed 03/30/2017 05/28/2017 Inactive Senna with Docusate Sodium 8.6 mg-50 mg tablet RxNorm: 072936 1 Tablet(s) PO BID as needed constipation 03/02/2017 07/29/2017 Inactive Keflex 500 mg capsule RxNorm: 221052 1 Capsule(s) PO TID 08/11/2016 08/20/2016 Inactive Levaquin 500 mg tablet RxNorm: 377512 1 Tablet(s) PO daily 04/16/2016 04/22/2016 Inactive ciprofloxacin 500 mg tablet RxNorm: 296740 1 Tablet(s) PO BID 02/10/2016 02/16/2016 Inactive prednisone 10 mg tablet RxNorm: 583449 1 Tablet(s) PO as needed for pain No Start Date Active Prolia 60 mg/mL subcutaneous syringe RxNorm: 643155 1 injection SQ Q6 months No Start Date Active lamotrigine 150 mg tablet RxNorm: 874142 1 Tablet(s) PO QHS No Start Date 12/06/2017 Inactive lamotrigine 100 mg tablet RxNorm: 223287 1 Tablet(s) PO QAM No Start Date 12/06/2017 Inactive Dilantin Extended 100 mg capsule RxNorm: 901003 Capsule(s) PO TAKES FOUR CAPSULES FOR 2 DAYS, THEN THREE CAPSULES FOR 1 DAY, THEN REPEATS No Start Date 04/26/2017 Inactive Zithromax Z-Escobar 250 mg tablet RxNorm: 749327 2 po on first dose and 1 daily Tablet(s) PO No Start Date 07/26/2018 Inactive zpack x 1 Humira 20 mg/0.4 mL subcutaneous syringe kit RxNorm: 556282 1 injection SQ every 2 weeks- Prescribed by Dr. Baker No Start Date 05/23/2017 Inactive Medication Administered No Medication Administered data Immunizations No Immunization data Assessments Condition Codes Effective Dates Dysuria ICD-10: R30.0 ICD-9: 788.1 09/14/2018 Other epilepsy, not intractable, without status epilepticus [...] Ord7 DILANTIN 10.5 UG/ML 05/11/2018 Comp Metabolic Lbm371 NA 138 mEq/L 05/11/2018 Comp Metabolic Qoi581 K 4.0 mEq/L 05/11/2018 Comp Metabolic Pzt143 CL 100 mEq/L 05/11/2018 Comp Metabolic Hdb401 CO2 29.0 mEq/L 05/11/2018 Comp Metabolic Dxw100 ANION GAP 13 05/11/2018 Comp Metabolic Tif845 GLUCOSE 84 mg/dL 05/11/2018 Comp Metabolic Bum709 Creat 0.8 mg/dL 05/11/2018 Comp Metabolic Jra479 eGFR 77 ml/min/1.73m2 05/11/2018 Comp Metabolic Tlp080 BUN 26 mg/dL 05/11/2018 Comp Metabolic Jse080 B/C Ratio 33.3 Ratio 05/11/2018 Comp Metabolic Hon497 CALCIUM 9.1 mg/dL 05/11/2018 Comp Metabolic Dbz478 ALK PHOS 97 U/L 05/11/2018 Comp Metabolic Vuq985 AST(SGOT) 14 U/L 05/11/2018 Comp Metabolic Rtu412 ALT(SGPT) 7 U/L 05/11/2018 Comp Metabolic Msj902 BILI T 0.3 mg/dL 05/11/2018 Comp Metabolic Oct169 ALBUMIN 3.6 g/dL 05/11/2018 Comp Metabolic Nrc225 TPRO 6.9 g/dL 05/11/2018 Comp Metabolic Omp177 GLOB 3.3 g/dL 05/11/2018 Comp Metabolic Ydt525 A/G Ratio 1.1 Ratio 05/11/2018 Comp Metabolic Kij740 Osmo 280 mOsmo 05/11/2018 Dilantin Ord7 DILANTIN 10.7 UG/ML 04/25/2018 Valproic Acid Gko664 VALPROIC <10 ug/ml 04/24/2018 Dilantin Ord7 DILANTIN 10.6 UG/ML 04/11/2018 Culture Urine [id number] URINE CULTURE SEE NOTES 02/20/2018 Culture Urine [id number] Continued Results 02/20/2018 Urine Culture Ucult Complete >100,000 col/ml aerobic growth sent to ref lab 02/17/2018 Dilantin Ord7 DILANTIN 14.4 UG/ML 02/16/2018 Comp Metabolic Seb484 NA 135 mEq/L 02/16/2018 Comp Metabolic Mbh287 K 3.8 mEq/L 02/16/2018 Comp Metabolic Rhf519 CL 99 mEq/L 02/16/2018 Comp Metabolic Lhy460 CO2 28.0 mEq/L 02/16/2018 Comp Metabolic Zyd780 ANION GAP 12 02/16/2018 Comp Metabolic Kjs011 GLUCOSE 101 mg/dL 02/16/2018 Comp Metabolic Rnu738 Creat 0.8 mg/dL 02/16/2018 Comp Metabolic Kwu452 eGFR 75 ml/min/1.73m2 02/16/2018 Comp Metabolic Nur734 BUN 20 mg/dL 02/16/2018 Comp Metabolic Jra115 B/C Ratio 25.0 Ratio 02/16/2018 Comp Metabolic Aom327 CALCIUM 8.9 mg/dL 02/16/2018 Comp Metabolic Ykx608 ALK PHOS 95 U/L 02/16/2018 Comp Metabolic Yha740 AST(SGOT) 13 U/L 02/16/2018 Comp Metabolic Vyy604 ALT(SGPT) 7 U/L 02/16/2018 Comp Metabolic Ypb548 BILI T 0.4 mg/dL 02/16/2018 Comp Metabolic Lpu726 ALBUMIN 3.6 g/dL 02/16/2018 Comp Metabolic Xfs463 TPRO 7.2 g/dL 02/16/2018 Comp Metabolic Hoe543 GLOB 3.6 g/dL 02/16/2018 Comp Metabolic Cee133 A/G Ratio 1.0 Ratio 02/16/2018 Comp Metabolic Ayx857 Osmo 273 mOsmo 02/16/2018 Urine Culture Ucult Complete >100,000 col/ml aerobic growth sent to ref lab 11/15/2017 Comp Metabolic Aer398 NA 136 mEq/L 10/13/2017 Comp Metabolic Ujb044 K 4.0 mEq/L 10/13/2017 Comp Metabolic Oju165 CL 98 mEq/L 10/13/2017 Comp Metabolic Fvv176 CO2 28.0 mEq/L 10/13/2017 Comp Metabolic Tid209 ANION GAP 14 10/13/2017 Comp Metabolic Cxq573 GLUCOSE 94 mg/dL 10/13/2017 Comp Metabolic Wrp049 Creat 0.7 mg/dL 10/13/2017 Comp Metabolic Pwm986 eGFR 82 ml/min/1.73m2 10/13/2017 Comp Metabolic Hgh578 BUN 26 mg/dL 10/13/2017 Comp Metabolic Qnl361 B/C Ratio 35.1 Ratio 10/13/2017 Comp Metabolic Cct670 CALCIUM 9.1 mg/dL 10/13/2017 Comp Metabolic Rnb920 ALK PHOS 98 U/L 10/13/2017 Comp Metabolic Pdk839 AST(SGOT) 15 U/L 10/13/2017 Comp Metabolic Qfn992 ALT(SGPT) 8 U/L 10/13/2017 Comp Metabolic Pbp549 BILI T 0.4 mg/dL 10/13/2017 Comp Metabolic Qmm640 ALBUMIN 3.7 g/dL 10/13/2017 Comp Metabolic Oxo858 TPRO 7.8 g/dL 10/13/2017 Comp Metabolic Wqi988 GLOB 4.1 g/dL 10/13/2017 Comp Metabolic Ynr622 A/G Ratio 0.9 Ratio 10/13/2017 Comp Metabolic Ooz919 Osmo 276 mOsmo 10/13/2017 Dilantin Ord7 DILANTIN 21.4 Result Verified By Repeat Analysis UG/ML 10/13/2017 Dilantin Ord7 DILANTIN 24.1 Result Verified By Repeat Analysis UG/ML 10/03/2017 Dilantin Ord7 DILANTIN 18.1 UG/ML 06/30/2017 Dilantin Ord7 DILANTIN 22.7 UG/ML 06/16/2017 Dilantin Ord7 DILANTIN 26.1 UG/ML 06/07/2017 Dilantin Ord7 DILANTIN 24.1 UG/ML 05/24/2017 Dilantin Ord7 DILANTIN 19.6 UG/ML 05/11/2017 Culture Urine [id number] URINE CULTURE SEE NOTES 05/06/2017 Culture Urine [id number] Continued Results 05/06/2017 Urine Culture Ucult Complete >100,000 col/ml aerobic growth sent to ref lab 05/03/2017 Dilantin Ord7 DILANTIN 12.6 UG/ML 04/27/2017 Calcium Ord79 CALCIUM 9.3 mg/dL 04/19/2017 Dilantin Ord7 DILANTIN 21.6 UG/ML 04/19/2017 Dilantin Ord7 DILANTIN 10.3 UG/ML 04/13/2017 Dilantin Ord7 DILANTIN 21.9 UG/ML 04/07/2017 Comp Metabolic Ohp945 NA 137 mEq/L 03/30/2017 Comp Metabolic Mpe626 K 3.7 mEq/L 03/30/2017 Comp Metabolic Lid524 CL 98 mEq/L 03/30/2017 Comp Metabolic Wzy962 CO2 29.0 mEq/L 03/30/2017 Comp Metabolic Fbn994 ANION GAP 14 03/30/2017 Comp Metabolic Exd321 GLUCOSE 100 mg/dL 03/30/2017 Comp Metabolic Jwv231 Creat 0.9 mg/dL 03/30/2017 Comp Metabolic Kzf510 eGFR 88 ml/min/1.73m2 03/30/2017 Comp Metabolic Vhq104 BUN 22 mg/dL 03/30/2017 Comp Metabolic Ogg338 B/C Ratio 24.4 Ratio 03/30/2017 Comp Metabolic Vbc220 CALCIUM 9.4 mg/dL 03/30/2017 Comp Metabolic Kqu482 ALK PHOS 113 U/L 03/30/2017 Comp Metabolic Gjt264 AST(SGOT) 16 U/L 03/30/2017 Comp Metabolic Ltg725 ALT(SGPT) 7 U/L 03/30/2017 Comp Metabolic Kxt825 BILI T 0.3 mg/dL 03/30/2017 Comp Metabolic Hds666 ALBUMIN 3.9 g/dL 03/30/2017 Comp Metabolic Ihj417 TPRO 8.0 g/dL 03/30/2017 Comp Metabolic Tho701 GLOB 4.1 g/dL 03/30/2017 Comp Metabolic Hza721 A/G Ratio 0.9 Ratio 03/30/2017 Comp Metabolic Dcb496 Osmo 277 mOsmo 03/30/2017 Lipid Ord30 CHOL 214 mg/dL 03/30/2017 Lipid Ord30 HDL 61.0 mg/dl 03/30/2017 Lipid Ord30 TRIG 130 mg/dL 03/30/2017 Lipid Ord30 LDL 127 mg/dL 03/30/2017 Lipid Ord30 C/HDL 3.5 Ratio 03/30/2017 Dilantin Ord7 DILANTIN 32.5 UG/ML 03/30/2017 Folate Ord36 Folate 16.46 ng/mL 03/30/2017 Tsh Ord6 hTSH II 0.95 uIU/mL 03/30/2017 B12 Bqn274 B12 592.00 pg/ml 03/30/2017 Cbc With Differential [...] 30.9 pg 03/30/2017 Cbc With Differential Ord2 [place]% 23.9 % 03/30/2017 Cbc With Differential Ord2 [...] 0.44 K/ul 03/30/2017 Cbc With Differential Ord2 [place] ABS# 0.3 K/ul 03/30/2017 Cbc With Differential [...] 30.3 pg 08/11/2016 Cbc With Differential Ord2 [place]% 31.7 % 08/11/2016 Cbc With Differential Ord2 [...] 0.59 K/ul 08/11/2016 Cbc With Differential Ord2 [place] ABS# 0.6 K/ul 08/11/2016 Cbc With Differential Ord2 Eos ABS# 0.0 K/ul 08/11/2016 Cbc With Differential Ord2 Baso ABS# 0.0 K/ul 08/11/2016 Dilantin Ord7 DILANTIN 17.2 UG/ML 08/11/2016 Tsh Ord6 hTSH II 0.82 uIU/mL 08/11/2016 Comp Metabolic Bcz827 NA 131 mEq/L 08/11/2016 Comp Metabolic Asp100 K 4.1 mEq/L 08/11/2016 Comp Metabolic Xpb297 CL 93 mEq/L 08/11/2016 Comp Metabolic Hys611 CO2 29.0 mEq/L 08/11/2016 Comp Metabolic Eky434 ANION GAP 13 08/11/2016 Comp Metabolic Eco100 GLUCOSE 120 mg/dL 08/11/2016 Comp Metabolic Znp519 Creat 0.8 mg/dL 08/11/2016 Comp Metabolic Izz604 eGFR 101 ml/min/1.73m2 08/11/2016 Comp Metabolic Cut239 BUN 18 mg/dL 08/11/2016 Comp Metabolic Yyd025 B/C Ratio 22.5 Ratio 08/11/2016 Comp Metabolic Mwy149 CALCIUM 9.5 mg/dL 08/11/2016 Comp Metabolic Agw754 ALK PHOS 104 U/L 08/11/2016 Comp Metabolic Hfb500 AST(SGOT) 16 U/L 08/11/2016 Comp Metabolic Zbt333 ALT(SGPT) 8 U/L 08/11/2016 Comp Metabolic Egh677 BILI T 0.4 mg/dL 08/11/2016 Comp Metabolic Snp364 ALBUMIN 3.8 g/dL 08/11/2016 Comp Metabolic Qwr965 TPRO 8.4 g/dL 08/11/2016 Comp Metabolic Emr272 GLOB 4.6 g/dL 08/11/2016 Comp Metabolic Wvf562 A/G Ratio 0.8 Ratio 08/11/2016 Comp Metabolic Uot354 Osmo 266 mOsmo 08/11/2016 Culture Urine [id number] URINE CULTURE SEE NOTES 04/19/2016 Culture Urine [id number] Continued Results 04/19/2016 Urine Culture Ucult Complete >100,000 col/ml aerobic growth sent to ref lab 04/17/2016 Culture Urine [id number] URINE CULTURE SEE NOTES 02/13/2016 Culture Urine [id number] Continued Results 02/13/2016 Urine Culture Ucult Complete [...] Codes Date URINALYSIS NONAUTO W/O SCOPE CPT-4: 34366 09/14/2018 URINALYSIS NONAUTO W/O SCOPE CPT-4: 74125 08/07/2018 URINALYSIS NONAUTO W/O SCOPE CPT-4: 75599 06/12/2018 URINALYSIS NONAUTO W/O SCOPE CPT-4: 43338 02/16/2018 URINALYSIS NONAUTO W/O SCOPE CPT-4: 23528 11/14/2017 PPPS, SUBSEQ VISIT CPT- 4: G0439 06/07/2017 URINALYSIS NONAUTO W/O SCOPE CPT-4: 76125 05/02/2017 URINALYSIS NONAUTO W/O SCOPE CPT-4: 99654 04/26/2017 PPPS, SUBSEQ VISIT CPT- 4: G0439 06/01/2016 URINALYSIS NONAUTO W/O SCOPE CPT-4: 84641 04/16/2016 URINALYSIS NONAUTO W/O SCOPE CPT-4: 37475 02/10/2016 Vital Signs Date Vital 09/12/2018 Blood Pressure 1: 106/60 Code: 8480-6 BMI: 17.5 Code: 93548-3 Heart Rate 1: 100 bpm Height: 5'5" SpO2: 97% Weight: 105 lbs 08/21/2018 Blood Pressure 1: 96/60 Code: 8480-6 Heart Rate 1: 114 bpm Height: 5'5" SpO2: 98% Weight: 07/20/2018 Blood Pressure 1: 104/60 Code: 8480-6 Heart Rate 1: 122 bpm Height: 5'5" SpO2: 94% Temperature: 36.7 (C) / 98.1 (F) Weight: 07/07/2018 Blood Pressure 1: 110/62 Code: 8480-6 BMI: 18.8 Code: 67452-7 Heart Rate 1: 67 bpm Height: 5'5" Temperature: 36.8 (C) / 98.2 (F) Weight: 113 lbs 05/22/2018 Blood Pressure 1: 112/68 Code: 8480-6 BMI: 18.6 Code: 08170-9 Heart Rate 1: 128 bpm Height: 5'5" SpO2: 98% Weight: 112 lbs 04/04/2018 Blood Pressure 1: 94/52 Code: 8480-6 Heart Rate 1: 120 bpm Height: 5'5" Respiratory Rate: 18 bpm SpO2: 98% Weight: 02/16/2018 Blood Pressure 1: 120/70 Code: 8480-6 BMI: 19.1 Code: 69416-8 Heart Rate 1: 115 bpm Height: 5'5" SpO2: 97% Weight: 115 lbs 12/30/2017 Blood Pressure 1: 100/68 Code: 8480-6 BMI: 18.3 Code: 55382-1 Heart Rate 1: 120 bpm Height: 5'5" SpO2: 94% Weight: 110 lbs 10/13/2017 Blood Pressure 1: 136/78 Code: 8480-6 BMI: 18.1 Code: 02443-9 Heart Rate 1: 126 bpm Height: 5'5" SpO2: 96% Weight: 109 lbs 07/12/2017 Blood Pressure 1: 100/56 Code: 8480-6 BMI: 18.1 Code: 64490-5 Heart Rate 1: 123 bpm Height: 5'5" SpO2: 99% Weight: 109 lbs 06/07/2017 Blood Pressure 1: 98/68 Code: 8480-6 BMI: 18.1 Code: 62101- 5 Heart Rate 1: 120 bpm Height: 5'5" SpO2: 99% Waist Measure (cm): 80 cm Weight: 109 lbs 05/24/2017 Blood Pressure 1: 104/62 Code: 8480-6 BMI: 18.1 Code: 42058-9 Heart Rate 1: 121 bpm Height: 5'5" SpO2: 97% Weight: 109 lbs 04/27/2017 Blood Pressure 1: 132/84 Code: 8480-6 BMI: 17.8 Code: 49301-0 Heart Rate 1: 129 bpm Height: 5'5" SpO2: 99% Weight: 107 lbs 04/13/2017 Blood Pressure 1: 100/66 Code: 8480-6 Heart Rate 1: 120 bpm Height: 5'5" SpO2: 99% Weight: 03/30/2017 Blood Pressure 1: 112/66 Code: 8480-6 BMI: 17.8 Code: 18504-8 Heart Rate 1: 112 bpm Height: 5'5" SpO2: 98% Weight: 107 lbs 03/02/2017 Blood Pressure 1: 128/78 Code: 8480-6 BMI: 18.1 Code: 76789-5 Heart Rate 1: 86 bpm Height: 5'5" SpO2: 95% Weight: 109 lbs 08/30/2016 Blood Pressure 1: 102/60 Code: 8480-6 BMI: 18.1 Code: 19886-1 Heart Rate 1: 135 bpm Height: 5'5" SpO2: 98% Weight: 109 lbs 08/11/2016 Blood Pressure 1: 100/66 Code: 8480-6 BMI: 18.6 Code: 67787-1 Heart Rate 1: 86 bpm Height: 5'5" SpO2: 94% Weight: 112 lbs 06/01/2016 Blood Pressure 1: 126/80 Code: 8480-6 BMI: 19.0 Code: 61443-1 Heart Rate 1: 100 bpm Height: 5'5" SpO2: 98% Waist Measure (cm): 64 cm Weight: 114 lbs 04/16/2016 Blood Pressure 1: 124/80 Code: 8480-6 Heart Rate 1: 110 bpm SpO2: 97% 02/10/2016 Blood Pressure 1: 102/64 Code: 8480-6 BMI: 18.3 Code: 18385-3 Heart Rate 1: 114 bpm Height: 5'5" [...] data Encounters Encounter Performer Location Codes Date ([id number]) [id number] EST. PATIENT, LEVEL III Diagnosis: Other epilepsy, not intractable, without status epilepticus[ICD10: G40.802] Diagnosis: Muscle weakness (generalized)[ICD10: M62.81] Magali Zepeda MD, [facility] CPT-4: 59743 09/12/2018 ([id number]) 97032 EST. PATIENT, LEVEL IV Diagnosis: Unsteadiness on feet[ICD10: R26.81] Diagnosis: Other epilepsy, not intractable, without status epilepticus[ICD10: G40.802] Diagnosis: Muscle weakness (generalized)[ICD10: M62.81] Magali Zepeda MD, [facility] CPT-4: 25187 08/21/2018 ([id number]) 95030 EST. PATIENT, LEVEL III Diagnosis: Cough[ICD10: R05] Diagnosis: Other epilepsy, not intractable, without status epilepticus[ICD10: G40.802] [facility] CPT-4: 32401 07/20/2018 ([id number]) 06437 EST. PATIENT, LEVEL III Diagnosis: Cough[ICD10: R05] Diagnosis: Acute upper respiratory infection, unspecified[ICD10: J06.9] [facility] CPT-4: 51293 07/07/2018 ([id number]) 24065 EST. PATIENT, LEVEL IV Diagnosis: Unsteadiness on feet[ICD10: R26.81] Diagnosis: Other abnormalities of gait and mobility[ICD10: R26.89] Diagnosis: Mixed incontinence[ICD10: N39.46] Diagnosis: Other epilepsy, not intractable, without status epilepticus[ICD10: G40.802] Magali Zepeda MD, [facility] CPT-4: 01088 05/22/2018 ([id number]) 69606 EST. PATIENT, LEVEL III Diagnosis: Right upper quadrant abdominal rigidity[ICD10: R19.31] Diagnosis: Functional diarrhea[ICD10: K59.1] Diagnosis: Calculus of gallbladder without cholecystitis without obstruction[ICD10: K80.20] Magali Zepeda MD, [facility] CPT-4: 70333 04/04/2018 ([id number]) [id number] EST. PATIENT, LEVEL IV Diagnosis: Other epilepsy, not intractable, without status epilepticus[ICD10: G40.802] Diagnosis: Slow transit constipation[ICD10: K59.01] Diagnosis: Dysuria[ICD10: R30.0] Diagnosis: Age-related osteoporosis without current pathological fracture[ICD10: M81.0] Magali Zepeda MD, [facility] CPT-4: 01839 02/16/2018 ([id number]) 42151 EST. PATIENT, LEVEL III Diagnosis: Slow transit constipation[ICD10: K59.01] Mishel Zepeda MD [facility] CPT-4: 63863 12/30/2017 ([id number]) 49869 EST. PATIENT, LEVEL IV Diagnosis: Other epilepsy, not intractable, without status epilepticus[ICD10: G40.802] Diagnosis: Slow transit constipation[ICD10: K59.01] Magali Zepeda MD, [facility] CPT-4: 00303 10/13/2017 ([id number]) 21091 EST. PATIENT, LEVEL III Diagnosis: Other epilepsy, not intractable, without status epilepticus[ICD10: G40.802] Diagnosis: Dysuria[ICD10: R30.0] Diagnosis: Mixed incontinence[ICD10: N39.46] Magali Zepeda MD, [facility] CPT- 4: 39079 07/12/2017 [id number]) [id number] EST. 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 PATIENT, LEVEL III Diagnosis: Other epilepsy, not intractable, without status epilepticus[ICD10: G40.802] Magali Zepeda MD, [facility] CPT-4: 35159 04/27/2017 [id number] [id number] EST. 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 PATIENT, LEVEL IV Diagnosis: Calculus of gallbladder without cholecystitis without obstruction[ICD10: K80.20] Diagnosis: Benign paroxysmal vertigo, bilateral[ICD10: H81.13] Diagnosis: Slow transit constipation[ICD10: K59.01] Magali Zepeda MD, [facility] CPT-4: 45732 03/02/2017 [id number]) [id number] EST. 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 PATIENT, LEVEL IV Diagnosis: Other epilepsy, not intractable, without status epilepticus[ICD10: G40.802] Diagnosis: Low back pain[ICD10: M54.5] Diagnosis: Pressure ulcer of sacral region, stage 1[ICD10: L89.151] [facility] CPT-4: 93234 08/11/2016 ([id number]) [id number] EST. PATIENT, LEVEL III Diagnosis: Urinary tract infection, site not specified[ICD10: N39.0] Diagnosis: Slow transit constipation[ICD10: K59.01] [facility] CPT-4: 99293 04/16/2016 ([id number]) OFFICE VISIT, NEW - LEVEL 4 Diagnosis: Other abnormalities of gait and mobility[ICD10: R26.89] Diagnosis: Dysuria[ICD10: R30.0] Diagnosis: Rheumatoid arthritis without rheumatoid factor, multiple sites[ICD10: M06.09] Magali Zepeda MD, [facility] CPT-4: 14971 02/10/2016 Plan of Care Planned Activity Notes Codes Status Date Appointment: Lab Draw 09/14/2018 Patient Education: Patient Medication Summary Completed 09/14/2018 Visit Plan: Seizure disorder - check dilantin level - no change in current medications. Monitor symptoms. Generalized malaise - check urinalysis. 09/12/2018 Appointment: Magali Zepeda WPtel: [facility] (15 min) Moderate 09/12/2018 Patient Education: Patient [...] seated. 08/21/2018 Appointment: Magali Zepeda WPtel: [phone] [facility] [place] (15 min) Moderate 08/21/2018 Patient Education: Patient Medication Summary Completed 08/21/2018 Appointment: Lab Draw 08/07/2018 Patient Education: Patient Medication Summary Completed 08/07/2018 Patient Education: Patient Medication Summary Completed 08/03/2018 Visit Plan: Seizures -increase dilantin -repeat dilantin level in 1 week [id number] cefdinir-finish abx and let us know if your symptoms do not resolve or if any worse 07/20/2018 Appointment: Mishel Wilson WPtel: [phone] [phone] [place] (15 min) Moderate 07/20/2018 Patient Education: Patient Medication Summary Completed 07/20/2018 Visit Plan: URI -viral- Pt advised to increase fluids, vitamin C. Discussed natural and expected course of this diagnosis and need to alert me if symptoms do not follow expected course, or if any worse. RX sent to patient's pharmacy to start if needed. 07/07/2018 Appointment: Mishel Wilson WPtel: [phone] [phone] [place] (30 min) Complex 07/07/2018 Patient Education: Patient Medication Summary Completed 07/07/2018 Appointment: Magali Zepeda WPtel: [facility]1 [facility] (15 min) Moderate 07/03/2018 Appointment: Lab Draw [...] house. 05/22/2018 Appointment: Magali Zepeda WPtel: [phone] [facility] [place] (15 min) Moderate 05/22/2018 Patient Education: Patient Medication Summary Completed 05/22/2018 Appointment: Magali Zepeda WPtel: [phone] [facility] (15 min) Moderate 05/15/2018 Visit Plan: Diarrhea [...] post-operatively. 04/04/2018 Appointment: Magali Zepeda WPtel: [phone] [facility] (15 min) Moderate 04/04/2018 Patient Education: Patient Medication Summary Completed 04/04/2018 Patient Education: Diarrhea Completed 04/04/2018 Visit Plan: Epilepsy - chronic - continue with current regimen - check labs. Osteoporosis - pt is currently getting Prolia in [place], this is a big burden for her - They have asked for her to be set up for prolia for at the end of may at [address]- to call with specific date. Dysuria - UA - +leukocytes - start on keflex - rx sent to pharmacy. Chronic constipation - monitor symptoms. Continue with supportive care. 02/16/2018 Appointment: Mag[facility] Zepeda [facility]Ptel: [phone] [place] [place] (15 min) Moderate 02/16/2018 Patient Education: [...] regimen. 12/30/2017 Appointment: [phone] [phone] [place] (30 min) Complex 12/30/2017 Patient Education: [...] this regimen. 10/13/2017 Appointment: Magali Zepeda WPtel: [facility]3 [facility] (15 min) Moderate 10/13/2017 Patient Education: Patient Medication Summary Completed 10/13/2017 Appointment: Magali Zepeda WPtel: [facility]4 [facility] [place] (15 min) Moderate 10/06/2017 Appointment: Lab [...] on accident 07/12/2017 Appointment: Magali Zepeda WPtel: [facility] [place] [place] (15 min) Moderate 07/12/2017 Patient Education: Patient Medication Summary Completed 07/12/2017 Appointment: Magali Zepeda WPtel: [facility] [place] [place] (15 min) Moderate 07/05/2017 Visit Plan: [...] care surrogate. 06/07/2017 Appointment: Windy Greco WPtel: [facility] [place] [facility] - Annual Wellness Visit 06/07/2017 [...] per week. 05/24/2017 Appointment: Magali Zepeda WPtel: [phone] [place] (15 min) Moderate 05/24/2017 Patient Education: Patient Medication Summary Completed 05/24/2017 Appointment: Magali Zepeda WPtel: [phone] [place] (15 min) Moderate 05/11/2017 Visit Plan: UTI [...] week) 04/27/2017 Appointment: Magali Zepeda WPtel: [phone] [place] (15 min) Moderate 04/27/2017 Patient Education: Patient [...] symptoms. 04/13/2017 Appointment: Magali Zepeda WPtel: [phone] [place] (15 min) Moderate 04/13/2017 Patient Education: Patient [...] strategy. 03/30/2017 Appointment: Magali Zepeda WPtel: [phone] [place] [place] (15 min) Moderate 03/30/2017 Patient Education: [...] for constipation. 03/02/2017 Appointment: Magali Zepeda WPtel: [facility]3 [facility] [place] (30 min) Complex 03/02/2017 Patient Education: Patient Medication Summary Completed 03/02/2017 Visit Plan: RA and Gait abnormality -continue with current treatments - supportive care Suspect some of her movement abnormalities may be due to her lamotrigine. 08/30/2016 Appointment: Magali Zepeda WPtel: [phone] [facility] [place] (30 min) Complex 08/30/2016 Patient Education: [...] 08/11/2016 Appointment: Windy Greco WPtel: [phone] [facility] [place] (30 min) Complex 08/11/2016 Patient Education: [...] surrogate. 06/01/2016 Appointment: Windy Greco WPtel: [phone] - Annual Wellness Visit 06/01/2016 Patient [...] regimen. 04/16/2016 Appointment: Mishel Wilson WPtel: [phone] [phone] (15 min) Moderate 04/16/2016 Patient Education: Patient Medication Summary Completed 04/16/2016 Visit Plan: RA and Gait abnormality - recommended pt to have referral to physical therapy at [facility]. Suspect some of her movement abnormalities may be due to her lamotrigine. 02/10/2016 Appointment: Magali Zepeda WPtel: [phone] [place] [place] New Patient 02/10/2016 Patient Education: Patient [...] - pt is currently getting Prolia in [place], this is a big burden for her [...] dilantin -repeat dilantin level in 1 week [id number] cefdinir-finish abx and let us know if [...] regimen. RECOMMEND PROBIOTIC-ANY BRAND IS FINE: DAYAN ALNG [facility], ALIGN sign release for labs from DR [...]
--- OUTSIDE RECORDS SUMMARY | 2018-12-30 22:22 | XMS REPORT | CCD ---
Author Author [facility] Organization [facility] Address [address] [place] [address] Phone Care Team Providers Care Filler Sifter Machine Name Role Phone PP Unavailable CCM Unavailable Summary Purpose Interface Exchange Insurance Providers Payer name Policy type / Coverage type Covered democrat ID Effective Begin Date Effective End Date WPS Medicare Part B Medicare Part B [id number] Unknown [employer] Medicare Part B [id number] Unknown Family history Sister Diagnosis Age At [...] Unknown Retired 02/10/[address]: 214218522 Never smoker 02/10/[address]: 825852665 Never drinks alcohol 02/10/2016 Has the patient [...] Instructions Dilantin Extended 100 mg capsule RxNorm: 267057 Capsule(s) TAKE 1 CAP TID ON Mon/Thurs AND 1 CAPSULE QID other days. if having symptoms of seizure activity, take an extra pill 10/17/2018 No Stop Date Active lamotrigine 100 mg tablet RxNorm: 934922 TAKE 1 TABLET BY MOUTH IN THE MORNING 09/29/2018 No Stop Date Active Bactrim DS 800 mg-160 mg tablet RxNorm: 934459 1 Tablet(s) PO BID 09/19/2018 09/18/2018 Inactive Bactrim DS 800 mg-160 mg tablet RxNorm: 620462 1 Tablet(s) PO BID 09/19/2018 09/25/2018 Inactive doxycycline hyclate 100 mg tablet RxNorm: 3552807 1 Tablet(s) PO BID 08/16/2018 08/15/2018 Inactive dc keflex doxycycline hyclate 100 mg tablet RxNorm: 4279458 1 Tablet(s) PO BID 08/16/2018 08/25/2018 Inactive dc keflex lamotrigine 150 mg tablet RxNorm: 062338 TAKE 1 TABLET BY MOUTH AT BEDTIME 08/14/2018 No Stop Date Active Keflex 500 mg capsule RxNorm: 815646 1 Capsule(s) PO TID and probiotic bid x7 08/14/2018 08/15/2018 Inactive Keflex 500 mg capsule RxNorm: 148309 1 Capsule(s) PO TID and probiotic bid x7 08/14/2018 08/13/2018 Inactive Zithromax Z-Escobar 250 mg tablet RxNorm: 362278 2 po on first dose and 1 daily Tablet(s) PO 07/27/2018 08/20/2018 Inactive zpack x 1 Mucinex 600 mg tablet, extended release RxNorm: 095548 1 Tablet(s) PO BID 07/27/2018 07/26/2018 Inactive Mucinex 600 mg tablet, extended release RxNorm: 396033 1 Tablet(s) PO BID 07/27/2018 08/09/2018 Inactive Dilantin Extended 100 mg capsule RxNorm: 491740 Capsule(s) TAKE 1 CAP TID ON Tue/urs AND 1 CAPSULE QID other days. if having symptoms of seizure activity, take an extra pill 07/20/2018 10/16/2018 Inactive amoxicillin 500 mg tablet RxNorm: 683488 1 Tablet(s) PO TID 07/07/2018 07/13/2018 Inactive lamotrigine 100 mg tablet RxNorm: 325757 TAKE 1 TABLET BY MOUTH IN THE MORNING 07/03/2018 09/28/2018 Inactive Keflex 500 mg capsule RxNorm: 739528 1 Capsule(s) PO QID 06/12/2018 06/18/2018 Inactive please call patient to let her know she needs to [facility] for antibiotic Dilantin Extended 100 mg capsule RxNorm: 089703 Capsule(s) TAKE 1 CAP TID ON /TUE AND 1 CAPSULE QID ON ///TUE. if having symptoms of seizure activity, take an extra pill 05/29/2018 07/19/2018 Inactive Dilantin Extended 100 mg capsule RxNorm: 813084 Capsule(s) TAKE 1 CAP TID x2 DAYS, THEN 1 CAPSULE qid x2 DAYs, THEN REPEAT CYCLE. if having symptoms of seizure activity, take an extra pill 05/22/2018 05/28/2018 Inactive lamotrigine 150 mg tablet RxNorm: 658711 TAKE 1 TABLET BY MOUTH AT BEDTIME 04/17/2018 08/13/2018 Inactive Dilantin Extended 100 mg capsule RxNorm: 550379 TAKE 1 CAPSULE BY MOUTH THREE TIMES DAILY FOR 3 DAYS, THEN 1 CAPSULE FOUR TIMES DAILY FOR 1 DAY, THEN REPEAT CYCLE. 04/12/2018 05/21/2018 Inactive lamotrigine 100 mg tablet RxNorm: 775380 TAKE 1 TABLET BY MOUTH IN THE MORNING 03/31/2018 07/02/2018 Inactive dicyclomine 10 mg capsule RxNorm: 399519 TAKE ONE CAPSULE BY MOUTH TWICE DAILY NEEDED 02/20/2018 No Stop Date Active Keflex 500 mg capsule RxNorm: 757865 1 Capsule(s) PO QID 02/16/2018 02/22/2018 Inactive please call patient to let her know she needs to [facility] for antibiotic Penlac 8 % topical solution RxNorm: 163786 1 Application TOP daily clean off every 7 days and restart application process 02/16/2018 09/13/2018 Inactive ok to dispense generic Dilantin Extended 100 mg capsule RxNorm: 406374 Capsule(s) PO UD 1 cap TID x 3 days then 1 cap qid x 1 day then repeat cycle 12/15/2017 04/11/2018 Inactive give 1 month supply lamotrigine 150 mg tablet RxNorm: 392367 1 Tablet(s) PO QHS 12/07/2017 04/05/2018 Inactive lamotrigine 100 mg tablet RxNorm: 075015 1 Tablet(s) PO QAM 12/07/2017 03/30/2018 Inactive Levaquin 500 mg tablet RxNorm: 465650 1 Tablet(s) PO daily 12/05/2017 12/11/2017 Inactive Keflex 500 mg capsule RxNorm: 902303 1 Capsule(s) PO TID 11/14/2017 11/20/2017 Inactive Keflex 500 mg capsule RxNorm: 073561 1 Capsule(s) PO TID 11/14/2017 11/13/2017 Inactive Dilantin Extended 100 mg capsule RxNorm: 152280 Capsule(s) PO UD m3pill/tue3 pill/wed 4 pill/ thur 2pill/fri 3pill/sat 4pill/sun 3 pill 10/13/2017 12/14/2017 Inactive Dilantin Extended 100 mg capsule RxNorm: 882066 Capsule(s) PO UD -Alternate 300 mg for two days in a row and then 400 mg for one day and repeat cycle 10/04/2017 10/12/2017 Inactive Augmentin 500 mg-125 mg tablet RxNorm: 868417 1 Tablet(s) PO TID 07/15/2017 07/14/2017 Inactive Augmentin 500 mg-125 mg tablet RxNorm: 623973 1 Tablet(s) PO TID 07/15/2017 07/21/2017 Inactive Dilantin Extended 100 mg capsule RxNorm: 805318 1 Capsule(s) PO daily -Alternate 300 mg and 400 mg every other day 06/07/2017 10/03/2017 Inactive Bactrim DS 800 mg-160 mg tablet RxNorm: 215520 1 Tablet(s) PO BID 05/02/2017 05/08/2017 Inactive Dilantin Extended 100 mg capsule RxNorm: 966327 1 Capsule(s) PO daily in the afternoon and 2 Capsules PO HS- Will take an additional pill if she has a lot of jerking 04/27/2017 06/06/2017 Inactive Keflex 500 mg capsule RxNorm: 556466 1 Capsule(s) PO TID 04/19/2017 04/23/2017 Inactive dicyclomine 10 mg capsule RxNorm: 924046 1 Capsule(s) PO BID as needed 03/30/2017 05/28/2017 Inactive Senna with Docusate Sodium 8.6 mg-50 mg tablet RxNorm: 185182 1 Tablet(s) PO BID as needed constipation 03/02/2017 07/29/2017 Inactive Keflex 500 mg capsule RxNorm: 561434 1 Capsule(s) PO TID 08/11/2016 08/20/2016 Inactive Levaquin 500 mg tablet RxNorm: 040397 1 Tablet(s) PO daily 04/16/2016 04/22/2016 Inactive ciprofloxacin 500 mg tablet RxNorm: 685196 1 Tablet(s) PO BID 02/10/2016 02/16/2016 Inactive prednisone 10 mg tablet RxNorm: 206832 1 Tablet(s) PO as needed for pain No Start Date Active Prolia 60 mg/mL subcutaneous syringe RxNorm: 833229 1 injection SQ Q6 months No Start Date Active lamotrigine 150 mg tablet RxNorm: 910016 1 Tablet(s) PO QHS No Start Date 12/06/2017 Inactive lamotrigine 100 mg tablet RxNorm: 245791 1 Tablet(s) PO QAM No Start Date 12/06/2017 Inactive Dilantin Extended 100 mg capsule RxNorm: 558463 Capsule(s) PO TAKES FOUR CAPSULES FOR 2 DAYS, THEN THREE CAPSULES FOR 1 DAY, THEN REPEATS No Start Date 04/26/2017 Inactive Zithromax Z-Escobar 250 mg tablet RxNorm: 777526 2 po on first dose and 1 daily Tablet(s) PO No Start Date 07/26/2018 Inactive zpack x 1 Humira 20 mg/0.4 mL subcutaneous syringe kit RxNorm: 674151 1 injection SQ every 2 weeks- Prescribed [...] Item Code Result Date Dilantin Ord7 DILANTIN 15.6 UG/ML 09/12/2018 Urine Culture Ucult Complete >100,000 col/ml aerobic growth sent to ref lab 08/08/2018 Dilantin Ord7 DILANTIN 17.9 UG/ML 08/03/2018 Urine Culture Ucult Complete Growth of aerobe sent to ref lab 06/14/2018 Dilantin Ord7 DILANTIN 10.5 UG/ML 05/11/2018 Comp Metabolic Jyw285 NA 138 mEq/L 05/11/2018 Comp Metabolic Wfi994 K 4.0 mEq/L 05/11/2018 Comp Metabolic Fpj028 CL 100 mEq/L 05/11/2018 Comp Metabolic Kjc238 CO2 29.0 mEq/L 05/11/2018 Comp Metabolic Icx707 ANION GAP 13 05/11/2018 Comp Metabolic Huv031 GLUCOSE 84 mg/dL 05/11/2018 Comp Metabolic Lps252 Creat 0.8 mg/dL 05/11/2018 Comp Metabolic Zhg617 eGFR 77 ml/min/1.73m2 05/11/2018 Comp Metabolic Asg200 BUN 26 mg/dL 05/11/2018 Comp Metabolic Deu285 B/C Ratio 33.3 Ratio 05/11/2018 Comp Metabolic Hcb220 CALCIUM 9.1 mg/dL 05/11/2018 Comp Metabolic Obp560 ALK PHOS 97 U/L 05/11/2018 Comp Metabolic Zek141 AST(SGOT) 14 U/L 05/11/2018 Comp Metabolic Gci268 ALT(SGPT) 7 U/L 05/11/2018 Comp Metabolic Ssj143 BILI T 0.3 mg/dL 05/11/2018 Comp Metabolic Wdv821 ALBUMIN 3.6 g/dL 05/11/2018 Comp Metabolic Pcr561 TPRO 6.9 g/dL 05/11/2018 Comp Metabolic Kvy104 GLOB 3.3 g/dL 05/11/2018 Comp Metabolic Aos734 A/G Ratio 1.1 Ratio 05/11/2018 Comp Metabolic Qty256 Osmo 280 mOsmo 05/11/2018 Dilantin Ord7 DILANTIN 10.7 UG/ML 04/25/2018 Valproic Acid Kcx353 VALPROIC <10 ug/ml 04/24/2018 Dilantin Ord7 DILANTIN 10.6 UG/ML 04/11/2018 Culture Urine [id number] URINE CULTURE SEE NOTES 02/20/2018 Culture Urine [id number] Continued Results 02/20/2018 Urine Culture Ucult Complete >100,000 col/ml aerobic growth sent to ref lab 02/17/2018 Dilantin Ord7 DILANTIN 14.4 UG/ML 02/16/2018 Comp Metabolic Cil665 NA 135 mEq/L 02/16/2018 Comp Metabolic Jku387 K 3.8 mEq/L 02/16/2018 Comp Metabolic Ros281 CL 99 mEq/L 02/16/2018 Comp Metabolic Cmz540 CO2 28.0 mEq/L 02/16/2018 Comp Metabolic Dfp418 ANION GAP 12 02/16/2018 Comp Metabolic Fxx919 GLUCOSE 101 mg/dL 02/16/2018 Comp Metabolic Qap597 Creat 0.8 mg/dL 02/16/2018 Comp Metabolic Tyc807 eGFR 75 ml/min/1.73m2 02/16/2018 Comp Metabolic Jag898 BUN 20 mg/dL 02/16/2018 Comp Metabolic Bjv005 B/C Ratio 25.0 Ratio 02/16/2018 Comp Metabolic Gbd014 CALCIUM 8.9 mg/dL 02/16/2018 Comp Metabolic Kgr207 ALK PHOS 95 U/L 02/16/2018 Comp Metabolic Osx600 AST(SGOT) 13 U/L 02/16/2018 Comp Metabolic Umw149 ALT(SGPT) 7 U/L 02/16/2018 Comp Metabolic Pxs915 BILI T 0.4 mg/dL 02/16/2018 Comp Metabolic Mqy296 ALBUMIN 3.6 g/dL 02/16/2018 Comp Metabolic Qwf631 TPRO 7.2 g/dL 02/16/2018 Comp Metabolic Hyd731 GLOB 3.6 g/dL 02/16/2018 Comp Metabolic Fdq916 A/G Ratio 1.0 Ratio 02/16/2018 Comp Metabolic Wgl572 Osmo 273 mOsmo 02/16/2018 Urine Culture Ucult Complete >100,000 col/ml aerobic growth sent to ref lab 11/15/2017 Comp Metabolic Ehj195 NA 136 mEq/L 10/13/2017 Comp Metabolic Bfq455 K 4.0 mEq/L 10/13/2017 Comp Metabolic Xpf411 CL 98 mEq/L 10/13/2017 Comp Metabolic Jfh131 CO2 28.0 mEq/L 10/13/2017 Comp Metabolic Izm628 ANION GAP 14 10/13/2017 Comp Metabolic Avn612 GLUCOSE 94 mg/dL 10/13/2017 Comp Metabolic Nau241 Creat 0.7 mg/dL 10/13/2017 Comp Metabolic Zhe286 eGFR 82 ml/min/1.73m2 10/13/2017 Comp Metabolic Hsa837 BUN 26 mg/dL 10/13/2017 Comp Metabolic Rkf516 B/C Ratio 35.1 Ratio 10/13/2017 Comp Metabolic Wbj981 CALCIUM 9.1 mg/dL 10/13/2017 Comp Metabolic Ucn952 ALK PHOS 98 U/L 10/13/2017 Comp Metabolic Zyq881 AST(SGOT) 15 U/L 10/13/2017 Comp Metabolic Aye166 ALT(SGPT) 8 U/L 10/13/2017 Comp Metabolic Wav456 BILI T 0.4 mg/dL 10/13/2017 Comp Metabolic Drw004 ALBUMIN 3.7 g/dL 10/13/2017 Comp Metabolic Flz897 TPRO 7.8 g/dL 10/13/2017 Comp Metabolic Nmd492 GLOB 4.1 g/dL 10/13/2017 Comp Metabolic Rfo177 A/G Ratio 0.9 Ratio 10/13/2017 Comp Metabolic Pdx055 Osmo 276 mOsmo 10/13/2017 Dilantin Ord7 DILANTIN 21.4 Result Verified By Repeat Analysis UG/ML 10/13/2017 Dilantin Ord7 DILANTIN 24.1 Result Verified By Repeat Analysis UG/ML 10/03/2017 Dilantin Ord7 DILANTIN 18.1 UG/ML 06/30/2017 Dilantin Ord7 DILANTIN 22.7 UG/ML 06/16/2017 Dilantin Ord7 DILANTIN 26.1 UG/ML 06/07/2017 Dilantin Ord7 DILANTIN 24.1 UG/ML 05/24/2017 Dilantin Ord7 DILANTIN 19.6 UG/ML 05/11/2017 Culture Urine [id number] URINE CULTURE SEE NOTES 05/06/2017 Culture Urine [id number] Continued Results 05/06/2017 Urine Culture Ucult Complete >100,000 col/ml aerobic growth sent to ref lab 05/03/2017 Dilantin Ord7 DILANTIN 12.6 UG/ML 04/27/2017 Calcium Ord79 CALCIUM 9.3 mg/dL 04/19/2017 Dilantin Ord7 DILANTIN 21.6 UG/ML 04/19/2017 Dilantin Ord7 DILANTIN 10.3 UG/ML 04/13/2017 Dilantin Ord7 DILANTIN 21.9 UG/ML 04/07/2017 Comp Metabolic Pxr128 NA 137 mEq/L 03/30/2017 Comp Metabolic Vme963 K 3.7 mEq/L 03/30/2017 Comp Metabolic Pkf785 CL 98 mEq/L 03/30/2017 Comp Metabolic Udq492 CO2 29.0 mEq/L 03/30/2017 Comp Metabolic Itl843 ANION GAP 14 03/30/2017 Comp Metabolic Fil885 GLUCOSE 100 mg/dL 03/30/2017 Comp Metabolic Xog334 Creat 0.9 mg/dL 03/30/2017 Comp Metabolic Anw693 eGFR 88 ml/min/1.73m2 03/30/2017 Comp Metabolic Asg606 BUN 22 mg/dL 03/30/2017 Comp Metabolic Zpx747 B/C Ratio 24.4 Ratio 03/30/2017 Comp Metabolic Ihl422 CALCIUM 9.4 mg/dL 03/30/2017 Comp Metabolic Mgu656 ALK PHOS 113 U/L 03/30/2017 Comp Metabolic Sns527 AST(SGOT) 16 U/L 03/30/2017 Comp Metabolic Llk667 ALT(SGPT) 7 U/L 03/30/2017 Comp Metabolic Gbd609 BILI T 0.3 mg/dL 03/30/2017 Comp Metabolic Qdr538 ALBUMIN 3.9 g/dL 03/30/2017 Comp Metabolic Kbk504 TPRO 8.0 g/dL 03/30/2017 Comp Metabolic Bna251 GLOB 4.1 g/dL 03/30/2017 Comp Metabolic Jhg752 A/G Ratio 0.9 Ratio 03/30/2017 Comp Metabolic Fqj042 Osmo 277 mOsmo 03/30/2017 Lipid Ord30 CHOL 214 mg/dL 03/30/2017 Lipid Ord30 HDL 61.0 mg/dl 03/30/2017 Lipid Ord30 TRIG 130 mg/dL 03/30/2017 Lipid Ord30 LDL 127 mg/dL 03/30/2017 Lipid Ord30 C/HDL 3.5 Ratio 03/30/2017 Dilantin Ord7 DILANTIN 32.5 UG/ML 03/30/2017 Folate Ord36 Folate 16.46 ng/mL 03/30/2017 Tsh Ord6 hTSH II 0.95 uIU/mL 03/30/2017 B12 Zsc330 B12 592.00 pg/ml 03/30/2017 Cbc With Differential [...] 30.9 pg 03/30/2017 Cbc With Differential Ord2 [place]% 23.9 % 03/30/2017 Cbc With Differential Ord2 [...] 0.44 K/ul 03/30/2017 Cbc With Differential Ord2 [place] ABS# 0.3 K/ul 03/30/2017 Cbc With Differential [...] 30.3 pg 08/11/2016 Cbc With Differential Ord2 [place]% 31.7 % 08/11/2016 Cbc With Differential Ord2 [...] 0.59 K/ul 08/11/2016 Cbc With Differential Ord2 [place] ABS# 0.6 K/ul 08/11/2016 Cbc With Differential Ord2 [place] ABS# 0.0 K/ul 08/11/2016 Cbc With Differential Ord2 Baso ABS# 0.0 K/ul 08/11/2016 Dilantin Ord7 DILANTIN 17.2 UG/ML 08/11/2016 Tsh Ord6 hTSH II 0.82 uIU/mL 08/11/2016 Comp Metabolic Sfw988 NA 131 mEq/L 08/11/2016 Comp Metabolic Bol312 K 4.1 mEq/L 08/11/2016 Comp Metabolic Kam069 CL 93 mEq/L 08/11/2016 Comp Metabolic Zsa046 CO2 29.0 mEq/L 08/11/2016 Comp Metabolic Yxd067 ANION GAP 13 08/11/2016 Comp Metabolic Jqm197 GLUCOSE 120 mg/dL 08/11/2016 Comp Metabolic Yav272 Creat 0.8 mg/dL 08/11/2016 Comp Metabolic Exp544 eGFR 101 ml/min/1.73m2 08/11/2016 Comp Metabolic Ffu359 BUN 18 mg/dL 08/11/2016 Comp Metabolic Ron509 B/C Ratio 22.5 Ratio 08/11/2016 Comp Metabolic Hnd983 CALCIUM 9.5 mg/dL 08/11/2016 Comp Metabolic Boa532 ALK PHOS 104 U/L 08/11/2016 Comp Metabolic Iwx133 AST(SGOT) 16 U/L 08/11/2016 Comp Metabolic Dwd977 ALT(SGPT) 8 U/L 08/11/2016 Comp Metabolic Uge336 BILI T 0.4 mg/dL 08/11/2016 Comp Metabolic Blj079 ALBUMIN 3.8 g/dL 08/11/2016 Comp Metabolic Xah205 TPRO 8.4 g/dL 08/11/2016 Comp Metabolic Quu207 GLOB 4.6 g/dL 08/11/2016 Comp Metabolic Wnz003 A/G Ratio 0.8 Ratio 08/11/2016 Comp Metabolic Shi521 Osmo 266 mOsmo 08/11/2016 Culture Urine [id number] URINE CULTURE SEE NOTES 04/19/2016 Culture Urine [id number] Continued Results 04/19/2016 Urine Culture Ucult Complete >100,000 col/ml aerobic growth sent to ref lab 04/17/2016 Culture Urine [id number] URINE CULTURE SEE NOTES 02/13/2016 Culture Urine [id number] Continued Results 02/13/2016 Urine Culture Ucult Complete [...] distress 09/12/2018 None Full Exam - General 1995 Constitutional general appearance Overall: well nourished 09/12/2018 [...] Codes Date URINALYSIS NONAUTO W/O SCOPE CPT-4: 70471 09/14/2018 URINALYSIS NONAUTO W/O SCOPE CPT-4: 72811 08/07/2018 URINALYSIS NONAUTO W/O SCOPE CPT-4: 08265 06/12/2018 URINALYSIS NONAUTO W/O SCOPE CPT-4: 72830 02/16/2018 URINALYSIS NONAUTO W/O SCOPE CPT-4: 44834 11/14/2017 PPPS, SUBSEQ VISIT CPT- 4: G0439 06/07/2017 URINALYSIS NONAUTO W/O SCOPE CPT-4: 10066 05/02/2017 URINALYSIS NONAUTO W/O SCOPE CPT-4: 35486 04/26/2017 PPPS, SUBSEQ VISIT CPT- 4: G0439 06/01/2016 URINALYSIS NONAUTO W/O SCOPE CPT-4: 61411 04/16/2016 URINALYSIS NONAUTO W/O SCOPE CPT-4: 98007 02/10/2016 Vital Signs Date Vital 09/12/2018 Blood Pressure 1: 106/60 Code: 8480-6 BMI: 17.5 Code: 43617-3 Heart Rate 1: 100 bpm Height: 5'5" SpO2: 97% Weight: 105 lbs 08/21/2018 Blood Pressure 1: 96/60 Code: 8480-6 Heart Rate 1: 114 bpm Height: 5'5" SpO2: 98% Weight: 07/20/2018 Blood Pressure 1: 104/60 Code: 8480-6 Heart Rate 1: 122 bpm Height: 5'5" SpO2: 94% Temperature: 36.7 (C) / 98.1 (F) Weight: 07/07/2018 Blood Pressure 1: 110/62 Code: 8480-6 BMI: 18.8 Code: 40796-3 Heart Rate 1: 67 bpm Height: 5'5" Temperature: 36.8 (C) / 98.2 (F) Weight: 113 lbs 05/22/2018 Blood Pressure 1: 112/68 Code: 8480-6 BMI: 18.6 Code: 14342-4 Heart Rate 1: 128 bpm Height: 5'5" SpO2: 98% Weight: 112 lbs 04/04/2018 Blood Pressure 1: 94/52 Code: 8480-6 Heart Rate 1: 120 bpm Height: 5'5" Respiratory Rate: 18 bpm SpO2: 98% Weight: 02/16/2018 Blood Pressure 1: 120/70 Code: 8480-6 BMI: 19.1 Code: 39290-3 Heart Rate 1: 115 bpm Height: 5'5" SpO2: 97% Weight: 115 lbs 12/30/2017 Blood Pressure 1: 100/68 Code: 8480-6 BMI: 18.3 Code: 44451-6 Heart Rate 1: 120 bpm Height: 5'5" SpO2: 94% Weight: 110 lbs 10/13/2017 Blood Pressure 1: 136/78 Code: 8480-6 BMI: 18.1 Code: 92132-2 Heart Rate 1: 126 bpm Height: 5'5" SpO2: 96% Weight: 109 lbs 07/12/2017 Blood Pressure 1: 100/56 Code: 8480-6 BMI: 18.1 Code: 42483-7 Heart Rate 1: 123 bpm Height: 5'5" SpO2: 99% Weight: 109 lbs 06/07/2017 Blood Pressure 1: 98/68 Code: 8480-6 BMI: 18.1 Code: 91823- 5 Heart Rate 1: 120 bpm Height: 5'5" SpO2: 99% Waist Measure (cm): 80 cm Weight: 109 lbs 05/24/2017 Blood Pressure 1: 104/62 Code: 8480-6 BMI: 18.1 Code: 40803-1 Heart Rate 1: 121 bpm Height: 5'5" SpO2: 97% Weight: 109 lbs 04/27/2017 Blood Pressure 1: 132/84 Code: 8480-6 BMI: 17.8 Code: 84587-4 Heart Rate 1: 129 bpm Height: 5'5" SpO2: 99% Weight: 107 lbs 04/13/2017 Blood Pressure 1: 100/66 Code: 8480-6 Heart Rate 1: 120 bpm Height: 5'5" SpO2: 99% Weight: 03/30/2017 Blood Pressure 1: 112/66 Code: 8480-6 BMI: 17.8 Code: 02489-9 Heart Rate 1: 112 bpm Height: 5'5" SpO2: 98% Weight: 107 lbs 03/02/2017 Blood Pressure 1: 128/78 Code: 8480-6 BMI: 18.1 Code: 01252-3 Heart Rate 1: 86 bpm Height: 5'5" SpO2: 95% Weight: 109 lbs 08/30/2016 Blood Pressure 1: 102/60 Code: 8480-6 BMI: 18.1 Code: 18098-4 Heart Rate 1: 135 bpm Height: 5'5" SpO2: 98% Weight: 109 lbs 08/11/2016 Blood Pressure 1: 100/66 Code: 8480-6 BMI: 18.6 Code: 26151-3 Heart Rate 1: 86 bpm Height: 5'5" SpO2: 94% Weight: 112 lbs 06/01/2016 Blood Pressure 1: 126/80 Code: 8480-6 BMI: 19.0 Code: 04406-4 Heart Rate 1: 100 bpm Height: 5'5" SpO2: 98% Waist Measure (cm): 64 cm Weight: 114 lbs 04/16/2016 Blood Pressure 1: 124/80 Code: 8480-6 Heart Rate 1: 110 bpm SpO2: 97% 02/10/2016 Blood Pressure 1: 102/64 Code: 8480-6 BMI: 18.3 Code: 53339-4 Heart Rate 1: 114 bpm Height: 5'5" [...] data Encounters Encounter Performer Location Codes Date ([id number]) [id number] EST. PATIENT, LEVEL III Diagnosis: Other epilepsy, not intractable, without status epilepticus[ICD10: G40.802] Diagnosis: Muscle weakness (generalized)[ICD10: M62.81] Magali Zepeda MD, [facility] CPT-4: 29805 09/12/2018 ([id number]) 60768 EST. PATIENT, LEVEL IV Diagnosis: Unsteadiness on feet[ICD10: R26.81] Diagnosis: Other epilepsy, not intractable, without status epilepticus[ICD10: G40.802] Diagnosis: Muscle weakness (generalized)[ICD10: M62.81] Magali Zepeda MD, [facility] CPT-4: 96078 08/21/2018 ([id number]) 64177 EST. PATIENT, LEVEL III Diagnosis: Cough[ICD10: R05] Diagnosis: Other epilepsy, not intractable, without status epilepticus[ICD10: G40.802] Mishel Zepeda MD, [facility] CPT-4: 52970 07/20/2018 ([id number]) 38057 EST. PATIENT, LEVEL III Diagnosis: Cough[ICD10: R05] Diagnosis: Acute upper respiratory infection, unspecified[ICD10: J06.9] Mishel Zepeda MD, [facility] CPT-4: 42204 07/07/2018 ([id number]) 54682 EST. PATIENT, LEVEL IV Diagnosis: Unsteadiness on feet[ICD10: R26.81] Diagnosis: Other abnormalities of gait and mobility[ICD10: R26.89] Diagnosis: Mixed incontinence[ICD10: N39.46] Diagnosis: Other epilepsy, not intractable, without status epilepticus[ICD10: G40.802] Magali Zepeda MD, [facility] CPT-4: 67717 05/22/2018 ([id number]) 68387 EST. PATIENT, LEVEL III Diagnosis: Right upper quadrant abdominal rigidity[ICD10: R19.31] Diagnosis: Functional diarrhea[ICD10: K59.1] Diagnosis: Calculus of gallbladder without cholecystitis without obstruction[ICD10: K80.20] Magali Zepeda MD, [facility] CPT-4: 90070 04/04/2018 ([id number]) 30515 EST. PATIENT, LEVEL IV Diagnosis: Other epilepsy, not intractable, without status epilepticus[ICD10: G40.802] Diagnosis: Slow transit constipation[ICD10: K59.01] Diagnosis: Dysuria[ICD10: R30.0] Diagnosis: Age-related osteoporosis without current pathological fracture[ICD10: M81.0] Magali Zepeda MD, [facility] CPT-4: 03989 02/16/2018 ([id number]) 78821 EST. PATIENT, LEVEL III Diagnosis: Slow transit constipation[ICD10: K59.01] Mishel Zepeda MD, [facility] CPT-4: 75051 12/30/2017 ([id number]) 17662 EST. PATIENT, LEVEL IV Diagnosis: Other epilepsy, not intractable, without status epilepticus[ICD10: G40.802] Diagnosis: Slow transit constipation[ICD10: K59.01] Magali Zepeda MD, [facility] CPT-4: 51264 10/13/2017 ([id number]) 95012 EST. PATIENT, LEVEL III Diagnosis: Other epilepsy, not intractable, without status epilepticus[ICD10: G40.802] Diagnosis: Dysuria[ICD10: R30.0] Diagnosis: Mixed incontinence[ICD10: N39.46] Magali Zepeda MD, [facility] CPT- 4: 46548 07/12/2017 ([id number]) 75384 EST. 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 PATIENT, LEVEL III Diagnosis: Other epilepsy, not intractable, without status epilepticus[ICD10: G40.802] Magali Zepeda MD [facility] CPT-4: 95543 04/27/[id number]) [id number] EST. 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 PATIENT, LEVEL IV Diagnosis: Calculus of gallbladder without cholecystitis without obstruction[ICD10: K80.20] Diagnosis: Benign paroxysmal vertigo, bilateral[ICD10: H81.13] Diagnosis: Slow transit constipation[ICD10: K59.01] Magali Zepeda MD, [facility] CPT-4: 41306 03/02/2017 ([id number]) [id number] EST. 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 PATIENT, LEVEL IV Diagnosis: Other epilepsy, not intractable, without status epilepticus[ICD10: G40.802] Diagnosis: Low back pain[ICD10: M54.5] Diagnosis: Pressure ulcer of sacral region, stage 1[ICD10: L89.151] Windy Zepeda MD, [facility] CPT-4: 58859 08/11/2016 ([id number]) [id number] EST. PATIENT, LEVEL III Diagnosis: Urinary tract infection, site not specified[ICD10: N39.0] Diagnosis: Slow transit constipation[ICD10: K59.01] Mishel Zepeda MD, [facility] CPT-4: 26426 04/16/2016 ([id number]) OFFICE VISIT, NEW - LEVEL 4 Diagnosis: Other abnormalities of gait and mobility[ICD10: R26.89] Diagnosis: Dysuria[ICD10: R30.0] Diagnosis: Rheumatoid arthritis without rheumatoid factor, multiple sites[ICD10: M06.09] Magali Zepeda MD, [facility] CPT-4: 48237 02/10/2016 Plan of Care Planned Activity Notes Codes Status Date Appointment: Lab Draw 09/14/2018 Patient Education: Patient Medication Summary Completed 09/14/2018 Visit Plan: Seizure disorder - check dilantin level - no change in current medications. Monitor symptoms. Generalized malaise - check urinalysis. 09/12/2018 Appointment: Magali Zepeda WPtel: [address] [place], [place] [phone] (15 min) Moderate 09/12/2018 Patient Education: Patient [...] seated. 08/21/2018 Appointment: Magali Zepeda WPtel: [phone] [facility] [phone] [place] (15 min) Moderate 08/21/2018 Patient Education: Patient Medication Summary Completed 08/21/2018 Appointment: Lab Draw 08/07/2018 Patient Education: Patient Medication Summary Completed 08/07/2018 Patient Education: Patient Medication Summary Completed 08/03/2018 Visit Plan: Seizures -increase dilantin -repeat dilantin level in 1 week [id number] cefdinir-finish abx and let us know if your symptoms do not resolve or if any worse 07/20/2018 Appointment: Mishel Wilson WPtel: [phone] [place] (15 min) Moderate 07/20/2018 Patient Education: Patient Medication Summary Completed 07/20/2018 Visit Plan: URI -viral- Pt advised to increase fluids, vitamin C. Discussed natural and expected course of this diagnosis and need to alert me if symptoms do not follow expected course, or if any worse. RX sent to patient's pharmacy to start if needed. 07/07/2018 Appointment: Mishel Wilson WPtel: [phone] [place] (30 min) Complex 07/07/2018 Patient Education: Patient Medication Summary Completed 07/07/2018 Appointment: Magali Zepeda WPtel: [phone] [place] (15 min) Moderate 07/03/2018 Appointment: Lab [...] the house. 05/22/2018 Appointment: Magali Zepeda WPtel: [phone] [place] (15 min) Moderate 05/22/2018 Patient Education: Patient Medication Summary Completed 05/22/2018 App[facility]ment: [phone] [place] (15 min) Moderate 05/15/2018 Visit Plan: [...] gallbladder. 04/04/2018 Appointment: Magali Zepeda WPtel: [phone] [phone] [place] (15 min) Moderate 04/04/2018 Patient Education: Patient Medication Summary Completed 04/04/2018 Patient Education: Diarrhea Completed 04/04/2018 Visit Plan: Epilepsy - chronic - continue with current regimen - check labs. Osteoporosis - pt is currently getting Prolia in [place], this is a big burden for her - They have asked for her to be set up for prolia for at the end of may at [address]- to call with specific date. Dysuria - UA - +leukocytes - start on keflex - rx sent to pharmacy. Chronic constipation - monitor symptoms. Continue with supportive care. 02/16/2018 Appointment: Magali Zepeda WPtel: [phone] [phone] [place] (15 min) Moderate 02/16/2018 Patient Education: [...] regimen. 12/30/2017 Appointment: Mishel Wilson WPtel: [phone] [phone] [place] (30 min) Complex 12/30/2017 [...] this regimen. 10/13/2017 Appointment: Magali Zepeda WPtel: [facility] [place] (15 min) Moderate 10/13/2017 Patient Education: Patient Medication Summary Completed 10/13/2017 Appointment: Magali Zepeda WPtel: [address] [place], [place] [phone] (15 min) Moderate 10/06/2017 Appointment: Lab Draw [...] on accident 07/12/2017 Appointment: Magali Zepeda WPtel: [facility] [place] (15 min) Moderate 07/12/2017 Patient Education: Patient Medication Summary Completed 07/12/2017 Appointment: Magali Zepeda WPtel: [facility] [place] (15 min) Moderate 07/05/2017 Visit Plan: [...] care surrogate. 06/07/2017 Appointment: Windy Greco WPtel: [facility] [facility] - Annual Wellness Visit 06/07/2017 Patient [...] per week. 05/24/2017 Appointment: Magali Zepeda WPtel: [address] [place], [place] [phone] (15 min) Moderate 05/24/2017 Patient Education: Patient Medication Summary Completed 05/24/2017 Appointment: Magali Zepeda WPtel: [address] [place] [phone] [place] (15 min) Moderate 05/11/2017 Visit Plan: [...] a week) 04/27/2017 Appointment: Magali Zepeda WPtel: [facility] [place] (15 min) Moderate 04/27/2017 Patient Education: [...] monitor symptoms. 04/13/2017 Appointment: Magali Zepeda WPtel: [facility] [place] (15 min) Moderate 04/13/2017 Patient Education: [...] strategy. 03/30/2017 Appointment: Mag[facility] Zepeda [facility]Ptel: [phone] [place] (15 min) Moderate 03/30/2017 Patient Education: [...] for constipation. 03/02/2017 Appointment: Magali Zepeda WPtel: [phone] [phone] [place] (30 min) Complex 03/02/2017 Patient Education: Patient Medication Summary Completed 03/02/2017 Visit Plan: RA and Gait abnormality -continue with current treatments - supportive care Suspect some of her movement abnormalities may be due to her lamotrigine. 08/30/2016 Appointment: Magali Zepeda WPtel: [phone] [phone] [place] (30 min) Complex 08/30/2016 Patient Education: [...] warmth, discharge. 08/11/2016 Appointment: Windy Greco WPtel: [phone] [facility] [place] (30 min) Complex 08/11/2016 [...] care surrogate. 06/01/2016 Appointment: Windy Greco WPtel: [facility] [facility] - Annual Wellness Visit 06/01/2016 Patient [...] regimen. 04/16/2016 Appointment: Mishel Wilson WPtel: [phone] [phone] (15 min) Moderate 04/16/2016 Patient Education: Patient Medication Summary Completed 04/16/2016 Visit Plan: RA and Gait abnormality - recommended pt to have referral to physical therapy at [facility]. Suspect some of her movement abnormalities may be due to her lamotrigine. 02/10/2016 Appointment: Magali Zepeda WPtel: [phone] [place] New Patient 02/10/2016 Patient Education: Patient Medication Summary Completed 02/10/2016 Instructions Comment Okay to add miralax as directed . [...] symptoms not improved on this regimen. . UTI - pt with positive urinalysis [...] chronic - no change in treatment strategy. Repeat dilantin level increase to 4/day daily except 3/day on Tuesday/ take a probiotic whiile on antibiotic . Seizures -increase dilantin -repeat dilantin level in 1 week [id number] cefdinir-finish abx and let us know if [...] - pt is currently getting Prolia in [place], this is a big burden for her [...] for pt to be seen by Dr. Mcintyer - pt sent to his clinic today [...] worsening redness, warmth, discharge. . Epilepsy - discussed with patient - [...] lamotrigine. RECOMMEND PROBIOTIC-ANY BRAND IS FINE: [facility] sign release for labs from [...]
--- OUTSIDE RECORDS SUMMARY | 2018-12-30 22:24 | XMS REPORT | CCD ---
Author Author [facility] Organization [facility] Address [address] [place] [address] Phone Care Team Providers Care Service Station Console Operator Name Role Phone PP Unavailable CCM Unavailable Summary Purpose Interface Exchange Insurance Providers Payer name Policy type / Coverage type Covered libertarian ID Effective Begin Date Effective End Date WPS Medicare Part B Medicare Part B [id number] Unknown [employer] Medicare Part B [id number] Unknown Family history Sister Diagnosis Age At [...] Unknown Retired 02/10/[address]: 211649477 Never smoker 02/10/[address]: 946930083 Never drinks alcohol 02/10/2016 Has the patient [...] Fill Instructions lamotrigine 100 mg tablet RxNorm: 528428 TAKE 1 TABLET BY MOUTH IN THE MORNING 09/29/2018 No Stop Date Active Bactrim DS 800 mg-160 mg tablet RxNorm: 816795 1 Tablet(s) PO BID 09/19/2018 09/18/2018 Inactive Bactrim DS 800 mg-160 mg tablet RxNorm: 343365 1 Tablet(s) PO BID 09/19/2018 09/25/2018 Inactive doxycycline hyclate 100 mg tablet RxNorm: 7884154 1 Tablet(s) PO BID 08/16/2018 08/15/2018 Inactive dc keflex doxycycline hyclate 100 mg tablet RxNorm: 5685820 1 Tablet(s) PO BID 08/16/2018 08/25/2018 Inactive dc keflex lamotrigine 150 mg tablet RxNorm: 212773 TAKE 1 TABLET BY MOUTH AT BEDTIME 08/14/2018 No Stop Date Active Keflex 500 mg capsule RxNorm: 305174 1 Capsule(s) PO TID and probiotic bid x7 08/14/2018 08/15/2018 Inactive Keflex 500 mg capsule RxNorm: 024790 1 Capsule(s) PO TID and probiotic bid x7 08/14/2018 08/13/2018 Inactive Zithromax Z-Escobar 250 mg tablet RxNorm: 982156 2 po on first dose and 1 daily Tablet(s) PO 07/27/2018 08/20/2018 Inactive zpack x 1 Mucinex 600 mg tablet, extended release RxNorm: 160013 1 Tablet(s) PO BID 07/27/2018 07/26/2018 Inactive Mucinex 600 mg tablet, extended release RxNorm: 761655 1 Tablet(s) PO BID 07/27/2018 08/09/2018 Inactive Dilantin Extended 100 mg capsule RxNorm: 946209 Capsule(s) TAKE 1 CAP TID ON Tue/urs AND 1 CAPSULE QID other days. if having symptoms of seizure activity, take an extra pill 07/20/2018 No Stop Date Active amoxicillin 500 mg tablet RxNorm: 684725 1 Tablet(s) PO TID 07/07/2018 07/13/2018 Inactive lamotrigine 100 mg tablet RxNorm: 938557 TAKE 1 TABLET BY MOUTH IN THE MORNING 07/03/2018 09/28/2018 Inactive Keflex 500 mg capsule RxNorm: 272868 1 Capsule(s) PO QID 06/12/2018 06/18/2018 Inactive please call patient to let her know she needs to strip picker rx for antibiotic Dilantin Extended 100 mg capsule RxNorm: 521559 Capsule(s) TAKE 1 CAP TID ON /TUE AND 1 CAPSULE QID ON ///TUE. if having symptoms of seizure activity, take an extra pill 05/29/2018 07/19/2018 Inactive Dilantin Extended 100 mg capsule RxNorm: 288316 Capsule(s) TAKE 1 CAP TID x2 DAYS, THEN 1 CAPSULE qid x2 DAYs, THEN REPEAT CYCLE. if having symptoms of seizure activity, take an extra pill 05/22/2018 05/28/2018 Inactive lamotrigine 150 mg tablet RxNorm: 580444 TAKE 1 TABLET BY MOUTH AT BEDTIME 04/17/2018 08/13/2018 Inactive Dilantin Extended 100 mg capsule RxNorm: 364989 TAKE 1 CAPSULE BY MOUTH THREE TIMES DAILY FOR 3 DAYS, THEN 1 CAPSULE FOUR TIMES DAILY FOR 1 DAY, THEN REPEAT CYCLE. 04/12/2018 05/21/2018 Inactive lamotrigine 100 mg tablet RxNorm: 142645 TAKE 1 TABLET BY MOUTH IN THE MORNING 03/31/2018 07/02/2018 Inactive dicyclomine 10 mg capsule RxNorm: 611329 TAKE ONE CAPSULE BY MOUTH TWICE DAILY NEEDED 02/20/2018 No Stop Date Active Keflex 500 mg capsule RxNorm: 707205 1 Capsule(s) PO QID 02/16/2018 02/22/2018 Inactive please call patient to let her know she needs to strip picker rx for antibiotic Penlac 8 % topical solution RxNorm: 135594 1 Application TOP daily clean off every 7 days and restart application process 02/16/2018 09/13/2018 Inactive ok to dispense generic Dilantin Extended 100 mg capsule RxNorm: 292133 Capsule(s) PO UD 1 cap TID x 3 days then 1 cap qid x 1 day then repeat cycle 12/15/2017 04/11/2018 Inactive give 1 month supply lamotrigine 150 mg tablet RxNorm: 993446 1 Tablet(s) PO QHS 12/07/2017 04/05/2018 Inactive lamotrigine 100 mg tablet RxNorm: 944768 1 Tablet(s) PO QAM 12/07/2017 03/30/2018 Inactive Levaquin 500 mg tablet RxNorm: 426823 1 Tablet(s) PO daily 12/05/2017 12/11/2017 Inactive Keflex 500 mg capsule RxNorm: 041507 1 Capsule(s) PO TID 11/14/2017 11/20/2017 Inactive Keflex 500 mg capsule RxNorm: 091690 1 Capsule(s) PO TID 11/14/2017 11/13/2017 Inactive Dilantin Extended 100 mg capsule RxNorm: 514237 Capsule(s) PO UD m3pill/tue3 pill/wed 4 pill/ thur 2pill/fri 3pill/sat 4pill/sun 3 pill 10/13/2017 12/14/2017 Inactive Dilantin Extended 100 mg capsule RxNorm: 341181 Capsule(s) PO UD -Alternate 300 mg for two days in a row and then 400 mg for one day and repeat cycle 10/04/2017 10/12/2017 Inactive Augmentin 500 mg-125 mg tablet RxNorm: 218177 1 Tablet(s) PO TID 07/15/2017 07/14/2017 Inactive Augmentin 500 mg-125 mg tablet RxNorm: 369282 1 Tablet(s) PO TID 07/15/2017 07/21/2017 Inactive Dilantin Extended 100 mg capsule RxNorm: 957852 1 Capsule(s) PO daily -Alternate 300 mg and 400 mg every other day 06/07/2017 10/03/2017 Inactive Bactrim DS 800 mg-160 mg tablet RxNorm: 778455 1 Tablet(s) PO BID 05/02/2017 05/08/2017 Inactive Dilantin Extended 100 mg capsule RxNorm: 711982 1 Capsule(s) PO daily in the afternoon and 2 Capsules PO HS- Will take an additional pill if she has a lot of jerking 04/27/2017 06/06/2017 Inactive Keflex 500 mg capsule RxNorm: 298330 1 Capsule(s) PO TID 04/19/2017 04/23/2017 Inactive dicyclomine 10 mg capsule RxNorm: 478625 1 Capsule(s) PO BID as needed 03/30/2017 05/28/2017 Inactive Senna with Docusate Sodium 8.6 mg-50 mg tablet RxNorm: 367539 1 Tablet(s) PO BID as needed constipation 03/02/2017 07/29/2017 Inactive Keflex 500 mg capsule RxNorm: 546346 1 Capsule(s) PO TID 08/11/2016 08/20/2016 Inactive Levaquin 500 mg tablet RxNorm: 077196 1 Tablet(s) PO daily 04/16/2016 04/22/2016 Inactive ciprofloxacin 500 mg tablet RxNorm: 526022 1 Tablet(s) PO BID 02/10/2016 02/16/2016 Inactive prednisone 10 mg tablet RxNorm: 364546 1 Tablet(s) PO as needed for pain No Start Date Active Prolia 60 mg/mL subcutaneous syringe RxNorm: 021270 1 injection SQ Q6 months No Start Date Active lamotrigine 150 mg tablet RxNorm: 648253 1 Tablet(s) PO QHS No Start Date 12/06/2017 Inactive lamotrigine 100 mg tablet RxNorm: 714309 1 Tablet(s) PO QAM No Start Date 12/06/2017 Inactive Dilantin Extended 100 mg capsule RxNorm: 953586 Capsule(s) PO TAKES FOUR CAPSULES FOR 2 DAYS, THEN THREE CAPSULES FOR 1 DAY, THEN REPEATS No Start Date 04/26/2017 Inactive Zithromax Z-Escobar 250 mg tablet RxNorm: 475119 2 po on first dose and 1 daily Tablet(s) PO No Start Date 07/26/2018 Inactive zpack x 1 Humira 20 mg/0.4 mL subcutaneous syringe kit RxNorm: 402029 1 injection SQ every 2 weeks- Prescribed [...] Ord7 DILANTIN 10.5 UG/ML 05/11/2018 Comp Metabolic Cum112 NA 138 mEq/L 05/11/2018 Comp Metabolic Tvk158 K 4.0 mEq/L 05/11/2018 Comp Metabolic Khl006 CL 100 mEq/L 05/11/2018 Comp Metabolic Qve691 CO2 29.0 mEq/L 05/11/2018 Comp Metabolic Drp396 ANION GAP 13 05/11/2018 Comp Metabolic Arq393 GLUCOSE 84 mg/dL 05/11/2018 Comp Metabolic Sux780 Creat 0.8 mg/dL 05/11/2018 Comp Metabolic Ukl837 eGFR 77 ml/min/1.73m2 05/11/2018 Comp Metabolic Yhk979 BUN 26 mg/dL 05/11/2018 Comp Metabolic Qau196 B/C Ratio 33.3 Ratio 05/11/2018 Comp Metabolic Nhe396 CALCIUM 9.1 mg/dL 05/11/2018 Comp Metabolic Erh094 ALK PHOS 97 U/L 05/11/2018 Comp Metabolic Mtb878 AST(SGOT) 14 U/L 05/11/2018 Comp Metabolic Zeu511 ALT(SGPT) 7 U/L 05/11/2018 Comp Metabolic Tiu005 BILI T 0.3 mg/dL 05/11/2018 Comp Metabolic Xmp298 ALBUMIN 3.6 g/dL 05/11/2018 Comp Metabolic Asw045 TPRO 6.9 g/dL 05/11/2018 Comp Metabolic Mlo074 GLOB 3.3 g/dL 05/11/2018 Comp Metabolic Ogh199 A/G Ratio 1.1 Ratio 05/11/2018 Comp Metabolic Qdw546 Osmo 280 mOsmo 05/11/2018 Dilantin Ord7 DILANTIN 10.7 UG/ML 04/25/2018 Valproic Acid Nbx381 VALPROIC <10 ug/ml 04/24/2018 Dilantin Ord7 DILANTIN 10.6 UG/ML 04/11/2018 Culture Urine [id number] URINE CULTURE SEE NOTES 02/20/2018 Culture Urine [id number] Continued Results 02/20/2018 Urine Culture Ucult Complete >100,000 col/ml aerobic growth sent to ref lab 02/17/2018 Dilantin Ord7 DILANTIN 14.4 UG/ML 02/16/2018 Comp Metabolic Zks293 NA 135 mEq/L 02/16/2018 Comp Metabolic Xgx456 K 3.8 mEq/L 02/16/2018 Comp Metabolic Ivy095 CL 99 mEq/L 02/16/2018 Comp Metabolic Ipz973 CO2 28.0 mEq/L 02/16/2018 Comp Metabolic Bqq655 ANION GAP 12 02/16/2018 Comp Metabolic Uqa164 GLUCOSE 101 mg/dL 02/16/2018 Comp Metabolic New104 Creat 0.8 mg/dL 02/16/2018 Comp Metabolic Ywo205 eGFR 75 ml/min/1.73m2 02/16/2018 Comp Metabolic Unk892 BUN 20 mg/dL 02/16/2018 Comp Metabolic Yws546 B/C Ratio 25.0 Ratio 02/16/2018 Comp Metabolic Jlk399 CALCIUM 8.9 mg/dL 02/16/2018 Comp Metabolic Tny862 ALK PHOS 95 U/L 02/16/2018 Comp Metabolic Dzn736 AST(SGOT) 13 U/L 02/16/2018 Comp Metabolic Cvn200 ALT(SGPT) 7 U/L 02/16/2018 Comp Metabolic Ojm956 BILI T 0.4 mg/dL 02/16/2018 Comp Metabolic Lpn220 ALBUMIN 3.6 g/dL 02/16/2018 Comp Metabolic Lgn277 TPRO 7.2 g/dL 02/16/2018 Comp Metabolic Ovm721 GLOB 3.6 g/dL 02/16/2018 Comp Metabolic Ziz493 A/G Ratio 1.0 Ratio 02/16/2018 Comp Metabolic Nmg978 Osmo 273 mOsmo 02/16/2018 Urine Culture Ucult Complete >100,000 col/ml aerobic growth sent to ref lab 11/15/2017 Comp Metabolic Mhr194 NA 136 mEq/L 10/13/2017 Comp Metabolic Adl899 K 4.0 mEq/L 10/13/2017 Comp Metabolic Wpv709 CL 98 mEq/L 10/13/2017 Comp Metabolic Pgv661 CO2 28.0 mEq/L 10/13/2017 Comp Metabolic Hoh716 ANION GAP 14 10/13/2017 Comp Metabolic Ket454 GLUCOSE 94 mg/dL 10/13/2017 Comp Metabolic Vmt302 Creat 0.7 mg/dL 10/13/2017 Comp Metabolic Dvg665 eGFR 82 ml/min/1.73m2 10/13/2017 Comp Metabolic Cmn025 BUN 26 mg/dL 10/13/2017 Comp Metabolic Dpe440 B/C Ratio 35.1 Ratio 10/13/2017 Comp Metabolic Sud270 CALCIUM 9.1 mg/dL 10/13/2017 Comp Metabolic Diq311 ALK PHOS 98 U/L 10/13/2017 Comp Metabolic Txq018 AST(SGOT) 15 U/L 10/13/2017 Comp Metabolic Xff535 ALT(SGPT) 8 U/L 10/13/2017 Comp Metabolic Edr922 BILI T 0.4 mg/dL 10/13/2017 Comp Metabolic Jfz549 ALBUMIN 3.7 g/dL 10/13/2017 Comp Metabolic Mpn331 TPRO 7.8 g/dL 10/13/2017 Comp Metabolic Euj047 GLOB 4.1 g/dL 10/13/2017 Comp Metabolic Vgd225 A/G Ratio 0.9 Ratio 10/13/2017 Comp Metabolic Ibb172 Osmo 276 mOsmo 10/13/2017 Dilantin Ord7 DILANTIN 21.4 Result Verified By Repeat Analysis UG/ML 10/13/2017 Dilantin Ord7 DILANTIN 24.1 Result Verified By Repeat Analysis UG/ML 10/03/2017 Dilantin Ord7 DILANTIN 18.1 UG/ML 06/30/2017 Dilantin Ord7 DILANTIN 22.7 UG/ML 06/16/2017 Dilantin Ord7 DILANTIN 26.1 UG/ML 06/07/2017 Dilantin Ord7 DILANTIN 24.1 UG/ML 05/24/2017 Dilantin Ord7 DILANTIN 19.6 UG/ML 05/11/2017 Culture Urine [id number] URINE CULTURE SEE NOTES 05/06/2017 Culture Urine [id number] Continued Results 05/06/2017 Urine Culture Ucult Complete >100,000 col/ml aerobic growth sent to ref lab 05/03/2017 Dilantin Ord7 DILANTIN 12.6 UG/ML 04/27/2017 Calcium Ord79 CALCIUM 9.3 mg/dL 04/19/2017 Dilantin Ord7 DILANTIN 21.6 UG/ML 04/19/2017 Dilantin Ord7 DILANTIN 10.3 UG/ML 04/13/2017 Dilantin Ord7 DILANTIN 21.9 UG/ML 04/07/2017 Comp Metabolic Mgg814 NA 137 mEq/L 03/30/2017 Comp Metabolic Zyc039 K 3.7 mEq/L 03/30/2017 Comp Metabolic Nfs598 CL 98 mEq/L 03/30/2017 Comp Metabolic Bgt320 CO2 29.0 mEq/L 03/30/2017 Comp Metabolic Tww432 ANION GAP 14 03/30/2017 Comp Metabolic Bma218 GLUCOSE 100 mg/dL 03/30/2017 Comp Metabolic Aym014 Creat 0.9 mg/dL 03/30/2017 Comp Metabolic Vxv432 eGFR 88 ml/min/1.73m2 03/30/2017 Comp Metabolic Klq946 BUN 22 mg/dL 03/30/2017 Comp Metabolic Uxz972 B/C Ratio 24.4 Ratio 03/30/2017 Comp Metabolic Red983 CALCIUM 9.4 mg/dL 03/30/2017 Comp Metabolic Gcd563 ALK PHOS 113 U/L 03/30/2017 Comp Metabolic Ngb339 AST(SGOT) 16 U/L 03/30/2017 Comp Metabolic Rck096 ALT(SGPT) 7 U/L 03/30/2017 Comp Metabolic Tkd599 BILI T 0.3 mg/dL 03/30/2017 Comp Metabolic Iic358 ALBUMIN 3.9 g/dL 03/30/2017 Comp Metabolic Quo502 TPRO 8.0 g/dL 03/30/2017 Comp Metabolic Are278 GLOB 4.1 g/dL 03/30/2017 Comp Metabolic Eac731 A/G Ratio 0.9 Ratio 03/30/2017 Comp Metabolic Dia303 Osmo 277 mOsmo 03/30/2017 Lipid Ord30 CHOL 214 mg/dL 03/30/2017 Lipid Ord30 HDL 61.0 mg/dl 03/30/2017 Lipid Ord30 TRIG 130 mg/dL 03/30/2017 Lipid Ord30 LDL 127 mg/dL 03/30/2017 Lipid Ord30 C/HDL 3.5 Ratio 03/30/2017 Dilantin Ord7 DILANTIN 32.5 UG/ML 03/30/2017 Folate Ord36 Folate 16.46 ng/mL 03/30/2017 Tsh Ord6 hTSH II 0.95 uIU/mL 03/30/2017 B12 Xvr607 B12 592.00 pg/ml 03/30/2017 Cbc With Differential [...] 30.9 pg 03/30/2017 Cbc With Differential Ord2 [place]% 23.9 % 03/30/2017 Cbc With Differential Ord2 [...] 0.44 K/ul 03/30/2017 Cbc With Differential Ord2 [place] ABS# 0.3 K/ul 03/30/2017 Cbc With Differential [...] 30.3 pg 08/11/2016 Cbc With Differential Ord2 [place]% 31.7 % 08/11/2016 Cbc With Differential Ord2 [...] 0.59 K/ul 08/11/2016 Cbc With Differential Ord2 [place] ABS# 0.6 K/ul 08/11/2016 Cbc With Differential Ord2 Eos ABS# 0.0 K/ul 08/11/2016 Cbc With Differential Ord2 Baso ABS# 0.0 K/ul 08/11/2016 Dilantin Ord7 DILANTIN 17.2 UG/ML 08/11/2016 Tsh Ord6 hTSH II 0.82 uIU/mL 08/11/2016 Comp Metabolic Eny807 NA 131 mEq/L 08/11/2016 Comp Metabolic Fsp252 K 4.1 mEq/L 08/11/2016 Comp Metabolic Xnw456 CL 93 mEq/L 08/11/2016 Comp Metabolic Vkh056 CO2 29.0 mEq/L 08/11/2016 Comp Metabolic Nfo018 ANION GAP 13 08/11/2016 Comp Metabolic Kis490 GLUCOSE 120 mg/dL 08/11/2016 Comp Metabolic Sku595 Creat 0.8 mg/dL 08/11/2016 Comp Metabolic Zzr781 eGFR 101 ml/min/1.73m2 08/11/2016 Comp Metabolic Fyc229 BUN 18 mg/dL 08/11/2016 Comp Metabolic Ecp680 B/C Ratio 22.5 Ratio 08/11/2016 Comp Metabolic Chf440 CALCIUM 9.5 mg/dL 08/11/2016 Comp Metabolic Gva757 ALK PHOS 104 U/L 08/11/2016 Comp Metabolic Byh358 AST(SGOT) 16 U/L 08/11/2016 Comp Metabolic Xmz167 ALT(SGPT) 8 U/L 08/11/2016 Comp Metabolic Psq374 BILI T 0.4 mg/dL 08/11/2016 Comp Metabolic Jpt403 ALBUMIN 3.8 g/dL 08/11/2016 Comp Metabolic Jyf153 TPRO 8.4 g/dL 08/11/2016 Comp Metabolic Yyc000 GLOB 4.6 g/dL 08/11/2016 Comp Metabolic Nid219 A/G Ratio 0.8 Ratio 08/11/2016 Comp Metabolic Lal406 Osmo 266 mOsmo 08/11/2016 Culture Urine [id number] URINE CULTURE SEE NOTES 04/19/2016 Culture Urine [id number] Continued Results 04/19/2016 Urine Culture Ucult Complete >100,000 col/ml aerobic growth sent to ref lab 04/17/2016 Culture Urine [id number] URINE CULTURE SEE NOTES 02/13/2016 Culture Urine [id number] Continued Results 02/13/2016 Urine Culture Ucult Complete [...] distress 02/16/2018 None Full Exam - General 1995 Constitutional general appearance Overall: well nourished 02/16/2018 None Full Exam - General 1995 Eyes conjunctiva/eyelids Overall: conjunctiva clear 02/16/2018 None [...] Codes Date URINALYSIS NONAUTO W/O SCOPE CPT-4: 67546 09/14/2018 URINALYSIS NONAUTO W/O SCOPE CPT-4: 42799 08/07/2018 URINALYSIS NONAUTO W/O SCOPE CPT-4: 88088 06/12/2018 URINALYSIS NONAUTO W/O SCOPE CPT-4: 79611 02/16/2018 URINALYSIS NONAUTO W/O SCOPE CPT-4: 66759 11/14/2017 PPPS, SUBSEQ VISIT CPT- 4: G0439 06/07/2017 URINALYSIS NONAUTO W/O SCOPE CPT-4: 36491 05/02/2017 URINALYSIS NONAUTO W/O SCOPE CPT-4: 91913 04/26/2017 PPPS, SUBSEQ VISIT CPT- 4: G0439 06/01/2016 URINALYSIS NONAUTO W/O SCOPE CPT-4: 84831 04/16/2016 URINALYSIS NONAUTO W/O SCOPE CPT-4: 46268 02/10/2016 Vital Signs Date Vital 09/12/2018 Blood Pressure 1: 106/60 Code: 8480-6 BMI: 17.5 Code: 01011-9 Heart Rate 1: 100 bpm Height: 5'5" SpO2: 97% Weight: 105 lbs 08/21/2018 Blood Pressure 1: 96/60 Code: 8480-6 Heart Rate 1: 114 bpm Height: 5'5" SpO2: 98% Weight: 07/20/2018 Blood Pressure 1: 104/60 Code: 8480-6 Heart Rate 1: 122 bpm Height: 5'5" SpO2: 94% Temperature: 36.7 (C) / 98.1 (F) Weight: 07/07/2018 Blood Pressure 1: 110/62 Code: 8480-6 BMI: 18.8 Code: 75966-5 Heart Rate 1: 67 bpm Height: 5'5" Temperature: 36.8 (C) / 98.2 (F) Weight: 113 lbs 05/22/2018 Blood Pressure 1: 112/68 Code: 8480-6 BMI: 18.6 Code: 44621-2 Heart Rate 1: 128 bpm Height: 5'5" SpO2: 98% Weight: 112 lbs 04/04/2018 Blood Pressure 1: 94/52 Code: 8480-6 Heart Rate 1: 120 bpm Height: 5'5" Respiratory Rate: 18 bpm SpO2: 98% Weight: 02/16/2018 Blood Pressure 1: 120/70 Code: 8480-6 BMI: 19.1 Code: 17050-9 Heart Rate 1: 115 bpm Height: 5'5" SpO2: 97% Weight: 115 lbs 12/30/2017 Blood Pressure 1: 100/68 Code: 8480-6 BMI: 18.3 Code: 44944-4 Heart Rate 1: 120 bpm Height: 5'5" SpO2: 94% Weight: 110 lbs 10/13/2017 Blood Pressure 1: 136/78 Code: 8480-6 BMI: 18.1 Code: 83547-0 Heart Rate 1: 126 bpm Height: 5'5" SpO2: 96% Weight: 109 lbs 07/12/2017 Blood Pressure 1: 100/56 Code: 8480-6 BMI: 18.1 Code: 93396-5 Heart Rate 1: 123 bpm Height: 5'5" SpO2: 99% Weight: 109 lbs 06/07/2017 Blood Pressure 1: 98/68 Code: 8480-6 BMI: 18.1 Code: 19331- 5 Heart Rate 1: 120 bpm Height: 5'5" SpO2: 99% Waist Measure (cm): 80 cm Weight: 109 lbs 05/24/2017 Blood Pressure 1: 104/62 Code: 8480-6 BMI: 18.1 Code: 12592-9 Heart Rate 1: 121 bpm Height: 5'5" SpO2: 97% Weight: 109 lbs 04/27/2017 Blood Pressure 1: 132/84 Code: 8480-6 BMI: 17.8 Code: 80586-3 Heart Rate 1: 129 bpm Height: 5'5" SpO2: 99% Weight: 107 lbs 04/13/2017 Blood Pressure 1: 100/66 Code: 8480-6 Heart Rate 1: 120 bpm Height: 5'5" SpO2: 99% Weight: 03/30/2017 Blood Pressure 1: 112/66 Code: 8480-6 BMI: 17.8 Code: 30325-6 Heart Rate 1: 112 bpm Height: 5'5" SpO2: 98% Weight: 107 lbs 03/02/2017 Blood Pressure 1: 128/78 Code: 8480-6 BMI: 18.1 Code: 15881-8 Heart Rate 1: 86 bpm Height: 5'5" SpO2: 95% Weight: 109 lbs 08/30/2016 Blood Pressure 1: 102/60 Code: 8480-6 BMI: 18.1 Code: 27479-1 Heart Rate 1: 135 bpm Height: 5'5" SpO2: 98% Weight: 109 lbs 08/11/2016 Blood Pressure 1: 100/66 Code: 8480-6 BMI: 18.6 Code: 30129-5 Heart Rate 1: 86 bpm Height: 5'5" SpO2: 94% Weight: 112 lbs 06/01/2016 Blood Pressure 1: 126/80 Code: 8480-6 BMI: 19.0 Code: 00935-0 Heart Rate 1: 100 bpm Height: 5'5" SpO2: 98% Waist Measure (cm): 64 cm Weight: 114 lbs 04/16/2016 Blood Pressure 1: 124/80 Code: 8480-6 Heart Rate 1: 110 bpm SpO2: 97% 02/10/2016 Blood Pressure 1: 102/64 Code: 8480-6 BMI: 18.3 Code: 60602-1 Heart Rate 1: 114 bpm Height: 5'5" [...] data Encounters Encounter Performer Location Codes Date ([id number]) [id number] EST. PATIENT, LEVEL III Diagnosis: Other epilepsy, not intractable, without status epilepticus[ICD10: G40.802] Diagnosis: Muscle weakness (generalized)[ICD10: M62.81] Magali Zepeda MD, [facility] CPT-4: 57915 09/12/2018 ([id number]) 57737 EST. PATIENT, LEVEL IV Diagnosis: Unsteadiness on feet[ICD10: R26.81] Diagnosis: Other epilepsy, not intractable, without status epilepticus[ICD10: G40.802] Diagnosis: Muscle weakness (generalized)[ICD10: M62.81] Magali Zepeda MD, [facility] CPT-4: 44798 08/21/2018 ([id number]) 16078 EST. PATIENT, LEVEL III Diagnosis: Cough[ICD10: R05] Diagnosis: Other epilepsy, not intractable, without status epilepticus[ICD10: G40.802] Mishel Zepeda MD, [facility] CPT-4: 51644 07/20/2018 ([id number]) 68667 EST. PATIENT, LEVEL III Diagnosis: Cough[ICD10: R05] Diagnosis: Acute upper respiratory infection, unspecified[ICD10: J06.9] Mishel Zepeda MD, [facility] CPT-4: 40542 07/07/2018 ([id number]) 45712 EST. PATIENT, LEVEL IV Diagnosis: Unsteadiness on feet[ICD10: R26.81] Diagnosis: Other abnormalities of gait and mobility[ICD10: R26.89] Diagnosis: Mixed incontinence[ICD10: N39.46] Diagnosis: Other epilepsy, not intractable, without status epilepticus[ICD10: G40.802] Magali Zepeda MD [facility] CPT-4: 69683 05/22/2018 ([id number]) 62692 EST. PATIENT, LEVEL III Diagnosis: Right upper quadrant abdominal rigidity[ICD10: R19.31] Diagnosis: Functional diarrhea[ICD10: K59.1] Diagnosis: Calculus of gallbladder without cholecystitis without obstruction[ICD10: K80.20] Magali Zepeda MD, [facility] CPT-4: 40851 04/04/2018 ([id number]) 22678 EST. PATIENT, LEVEL IV Diagnosis: Other epilepsy, not intractable, without status epilepticus[ICD10: G40.802] Diagnosis: Slow transit constipation[ICD10: K59.01] Diagnosis: Dysuria[ICD10: R30.0] Diagnosis: Age-related osteoporosis without current pathological fracture[ICD10: M81.0] Magali Zepeda MD [facility] CPT-4: 20151 02/16/2018 ([id number]) 55806 EST. PATIENT, LEVEL III Diagnosis: Slow transit constipation[ICD10: K59.01] Mishel Zepeda MD, [facility] CPT-4: 96740 12/30/2017 ([id number]) 45868 EST. PATIENT, LEVEL IV Diagnosis: Other epilepsy, not intractable, without status epilepticus[ICD10: G40.802] Diagnosis: Slow transit constipation[ICD10: K59.01] Magali Zepeda MD [facility] CPT-4: 12037 10/13/2017 ([id number]) 00772 EST. PATIENT, LEVEL III Diagnosis: Other epilepsy, not intractable, without status epilepticus[ICD10: G40.802] Diagnosis: Dysuria[ICD10: R30.0] Diagnosis: Mixed incontinence[ICD10: N39.46] Magali Zepeda MD, [facility] CPT- 4: 97637 07/12/2017 ([id number]) 24572 EST. 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 PATIENT, LEVEL III Diagnosis: Other epilepsy, not intractable, without status epilepticus[ICD10: G40.802] Magali Zepeda MD [facility] CPT-4: 47935 04/27/2017 [id number]) 70705 EST. 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 PATIENT, LEVEL IV Diagnosis: Calculus of gallbladder without cholecystitis without obstruction[ICD10: K80.20] Diagnosis: Benign paroxysmal vertigo, bilateral[ICD10: H81.13] Diagnosis: Slow transit constipation[ICD10: K59.01] Magali Zepeda MD [facility] CPT-4: 48473 03/02/[id number]) [id number] EST. 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 PATIENT, LEVEL IV Diagnosis: Other epilepsy, not intractable, without status epilepticus[ICD10: G40.802] Diagnosis: Low back pain[ICD10: M54.5] Diagnosis: Pressure ulcer of sacral region, stage 1[ICD10: L89.151] [facility] CPT-4: 86156 08/11/2016 ([id number]) 03186 EST. PATIENT, LEVEL III Diagnosis: Urinary tract infection, site not specified[ICD10: N39.0] Diagnosis: Slow transit constipation[ICD10: K59.01] Mishel Zepeda MD, [facility] CPT-4: 57756 04/16/2016 ([id number]) OFFICE VISIT, NEW - LEVEL 4 Diagnosis: Other abnormalities of gait and mobility[ICD10: R26.89] Diagnosis: Dysuria[ICD10: R30.0] Diagnosis: Rheumatoid arthritis without rheumatoid factor, multiple sites[ICD10: M06.09] Magali Zepeda MD, [facility] CPT-4: 84404 02/10/2016 Plan of Care Planned Activity Notes Codes Status Date Appointment: Lab Draw 09/14/2018 Patient Education: Patient Medication Summary Completed 09/14/2018 Visit Plan: Seizure disorder - check dilantin level - no change in current medications. Monitor symptoms. Generalized malaise - check urinalysis. 09/12/2018 Appointment: Magali Zepeda WPtel[id number] ([facility] min) Moderate 09/12/2018 Patient Education: Patient [...] while seated. 08/21/2018 Appointment: Magali Zepeda WPtel[id number] (15 min) Moderate 08/21/2018 Patient Education: Patient Medication Summary Completed 08/21/2018 Appointment: Lab Draw 08/07/2018 Patient Education: Patient Medication Summary Completed 08/07/2018 Patient Education: Patient Medication Summary Completed 08/03/2018 Visit Plan: Seizures -increase dilantin -repeat dilantin level in 1 week [id number] cefdinir-finish abx and let us know if your symptoms do not resolve or if any worse 07/20/2018 Appointment: Mishel Wilson WPtel: [phone] [phone] [place] (15 min) Moderate 07/20/2018 Patient Education: Patient Medication Summary Completed 07/20/2018 Visit Plan: URI -viral- Pt advised to increase fluids, vitamin C. Discussed natural and expected course of this diagnosis and need to alert me if symptoms do not follow expected course, or if any worse. RX sent to patient's pharmacy to start if needed. 07/07/2018 Appointment: Mishel Wilson WPtel: [phone] [phone] [place] (30 min) Complex 07/07/2018 Patient Education: Patient Medication Summary Completed 07/07/2018 [phone] [place] (15 min) Moderate 07/03/2018 Appointment: Lab [...] the house. 05/22/2018 Appointment: Magali Zepeda WPtel: [phone] [facility] [place] (15 min) Moderate 05/22/2018 Patient Education: Patient Medication Summary Completed 05/22/2018 App[facility]ment: [phone] [place] (15 min) Moderate 05/15/2018 Visit [...] 04/04/2018 Appointment: Magali Zepeda WPtel: [phone] [facility] (15 min) Moderate 04/04/2018 Patient Education: Patient Medication Summary Completed 04/04/2018 Patient Education: Diarrhea Completed 04/04/2018 Visit Plan: Epilepsy - chronic - continue with current regimen - check labs. Osteoporosis - pt is currently getting Prolia in [place], this is a big burden for her - They have asked for her to be set up for prolia for at the end of may at [address]- to call with specific date. Dysuria - UA - +leukocytes - start on keflex - rx sent to pharmacy. Chronic constipation - monitor symptoms. Continue with supportive care. 02/16/2018 Appointment: Magali Zepeda WPtel: [phone] [facility] (15 min) Moderate 02/16/2018 Patient Education: [...] regimen. 12/30/2017 Appointment: Mishel Wilson WPtel: [phone] [phone] [place] (30 min) Complex 12/30/2017 Patient [...] this regimen. 10/13/2017 Appointment: Magali Zepeda WPtel: [facility] (15 min) Moderate 10/13/2017 Patient Education: Patient Medication Summary Completed 10/13/2017 Appointment: Magali Zepeda WPtel: [facility] (15 min) Moderate 10/06/2017 Appointment: Lab [...] on accident 07/12/2017 Appointment: Magali Zepeda WPtel: [facility] (15 min) Moderate 07/12/2017 Patient Education: Patient Medication Summary Completed 07/12/2017 Appointment: Magali Zepeda WPtel[facility] (15 min) Moderate 07/05/2017 Visit Plan: [...] care surrogate. 06/07/2017 Appointment: Windy Greco WPtel: [facility] [facility] - Annual Wellness Visit 06/07/2017 Patient [...] per week. 05/24/2017 Appointment: Magali Zepeda WPtel: [facility] (15 min) Moderate 05/24/2017 Patient Education: Patient Medication Summary Completed 05/24/2017 Appointment: Magali Zepeda WPtel[facility] (15 min) Moderate 05/11/2017 Visit Plan: [...] a week) 04/27/2017 Appointment: Magali Zepeda WPtel: [facility] (15 min) Moderate 04/27/2017 Patient Education: [...] monitor symptoms. 04/13/2017 Appointment: Magali Zepeda WPtel: [facility] (15 min) Moderate 04/13/2017 Patient Education: Patient [...] treatment strategy. 03/30/2017 Appointment: Magali Zepeda WPtel: [facility] (15 min) Moderate 03/30/2017 Patient Education: [...] for constipation. 03/02/2017 Appointment: Magali Zepeda WPtel: [facility] (30 min) Complex 03/02/2017 Patient Education: Patient Medication Summary Completed 03/02/2017 Visit Plan: RA and Gait abnormality -continue with current treatments - supportive care Suspect some of her movement abnormalities may be due to her lamotrigine. 08/30/2016 Appointment: Magali Zepeda WPtel: [facility] [place] (30 min) Complex 08/30/2016 Patient Education: [...] discharge. 08/11/2016 Appointment: Windy Greco WPtel: [phone] [facility] [place] (30 min) Complex 08/11/2016 Patient [...] care surrogate. 06/01/2016 Appointment: Windy Greco WPtel: [facility] - Annual Wellness Visit 06/01/2016 Patient [...] this regimen. 04/16/2016 Appointment: Mishel Wilson WPtel: [facility] [place] [phone] (15 min) Moderate 04/16/2016 Patient Education: Patient Medication Summary Completed 04/16/2016 Visit Plan: RA and Gait abnormality - recommended pt to have referral to physical therapy at [facility]. Suspect some of her movement abnormalities may be due to her lamotrigine. 02/10/2016 Appointment: Magali Zepeda WPtel: [facility] New Patient 02/10/2016 Patient Education: Patient Medication Summary Completed 02/10/2016 Instructions Comment . Epilepsy - with chronic dilantin use [...] - no change in treatment strategy. . Seizure disorder - check dilantin level [...] dilantin -repeat dilantin level in 1 week [id number] cefdinir-finish abx and let us know if [...] - pt is currently getting Prolia in [place], this is a big burden for her [...] change in symptoms, worsening redness, warmth, discharge. start antibiotic if needed over the weekend [...] RECOMMEND PROBIOTIC-ANY BRAND IS FINE: DAYAN LANG [facility], ALIGN sign release for labs from DR [...]
--- OUTSIDE RECORDS SUMMARY | 2018-12-30 22:27 | XMS REPORT | CCD ---
Author Author [facility] Organization [facility] Address [address] [place] [address] Phone Care Team Providers Care In Store Marketing Associate Name Role Phone PP Unavailable CCM Unavailable Summary Purpose Interface Exchange Insurance Providers Payer name Policy type / Coverage type Covered green party ID Effective Begin Date Effective End Date WPS Medicare Part B Medicare Part B [id number] Unknown [employer] Medicare Part B [id number] Unknown Family history Sister Diagnosis Age At [...] Unknown Retired 02/10/[address]: 240449567 Never smoker 02/10/[address]: 575971163 Never drinks alcohol 02/10/2016 Has the patient [...] Bactrim DS 800 mg-160 mg tablet RxNorm: 192130 1 Tablet(s) PO BID 09/19/2018 09/25/2018 Active Bactrim DS 800 mg-160 mg tablet RxNorm: 734283 1 Tablet(s) PO BID 09/19/2018 09/18/2018 Inactive doxycycline hyclate 100 mg tablet RxNorm: 5166847 1 Tablet(s) PO BID 08/16/2018 08/15/2018 Inactive dc keflex doxycycline hyclate 100 mg tablet RxNorm: 3441678 1 Tablet(s) PO BID 08/16/2018 08/25/2018 Inactive dc keflex lamotrigine 150 mg tablet RxNorm: 334206 TAKE 1 TABLET BY MOUTH AT BEDTIME 08/14/2018 No Stop Date Active Keflex 500 mg capsule RxNorm: 431118 1 Capsule(s) PO TID and probiotic bid x7 08/14/2018 08/15/2018 Inactive Keflex 500 mg capsule RxNorm: 410903 1 Capsule(s) PO TID and probiotic bid x7 08/14/2018 08/13/2018 Inactive Zithromax Z-Escobar 250 mg tablet RxNorm: 944032 2 po on first dose and 1 daily Tablet(s) PO 07/27/2018 08/20/2018 Inactive zpack x 1 Mucinex 600 mg tablet, extended release RxNorm: 950397 1 Tablet(s) PO BID 07/27/2018 07/26/2018 Inactive Mucinex 600 mg tablet, extended release RxNorm: 275053 1 Tablet(s) PO BID 07/27/2018 08/09/2018 Inactive Dilantin Extended 100 mg capsule RxNorm: 988413 Capsule(s) TAKE 1 CAP TID ON Tue/ AND 1 CAPSULE QID other days. if having symptoms of seizure activity, take an extra pill 07/20/2018 No Stop Date Active amoxicillin 500 mg tablet RxNorm: 285135 1 Tablet(s) PO TID 07/07/2018 07/13/2018 Inactive lamotrigine 100 mg tablet RxNorm: 807734 TAKE 1 TABLET BY MOUTH IN THE MORNING 07/03/2018 No Stop Date Active Keflex 500 mg capsule RxNorm: 119760 1 Capsule(s) PO QID 06/12/2018 06/18/2018 Inactive please call patient to let her know she needs to picker and packer rx for antibiotic Dilantin Extended 100 mg capsule RxNorm: 430774 Capsule(s) TAKE 1 CAP TID ON /TUE AND 1 CAPSULE QID ON ///TUE. if having symptoms of seizure activity, take an extra pill 05/29/2018 07/19/2018 Inactive Dilantin Extended 100 mg capsule RxNorm: 539991 Capsule(s) TAKE 1 CAP TID x2 DAYS, THEN 1 CAPSULE qid x2 DAYs, THEN REPEAT CYCLE. if having symptoms of seizure activity, take an extra pill 05/22/2018 05/28/2018 Inactive lamotrigine 150 mg tablet RxNorm: 283144 TAKE 1 TABLET BY MOUTH AT BEDTIME 04/17/2018 08/13/2018 Inactive Dilantin Extended 100 mg capsule RxNorm: 859021 TAKE 1 CAPSULE BY MOUTH THREE TIMES DAILY FOR 3 DAYS, THEN 1 CAPSULE FOUR TIMES DAILY FOR 1 DAY, THEN REPEAT CYCLE. 04/12/2018 05/21/2018 Inactive lamotrigine 100 mg tablet RxNorm: 748719 TAKE 1 TABLET BY MOUTH IN THE MORNING 03/31/2018 07/02/2018 Inactive dicyclomine 10 mg capsule RxNorm: 552922 TAKE ONE CAPSULE BY MOUTH TWICE DAILY NEEDED 02/20/2018 No Stop Date Active Keflex 500 mg capsule RxNorm: 096080 1 Capsule(s) PO QID 02/16/2018 02/22/2018 Inactive please call patient to let her know she needs to picker and packer rx for antibiotic Penlac 8 % topical solution RxNorm: 645143 1 Application TOP daily clean off every 7 days and restart application process 02/16/2018 09/13/2018 Inactive ok to dispense generic Dilantin Extended 100 mg capsule RxNorm: 937081 Capsule(s) PO UD 1 cap TID x 3 days then 1 cap qid x 1 day then repeat cycle 12/15/2017 04/11/2018 Inactive give 1 month supply lamotrigine 150 mg tablet RxNorm: 892516 1 Tablet(s) PO QHS 12/07/2017 04/05/2018 Inactive lamotrigine 100 mg tablet RxNorm: 828410 1 Tablet(s) PO QAM 12/07/2017 03/30/2018 Inactive Levaquin 500 mg tablet RxNorm: 386537 1 Tablet(s) PO daily 12/05/2017 12/11/2017 Inactive Keflex 500 mg capsule RxNorm: 397311 1 Capsule(s) PO TID 11/14/2017 11/20/2017 Inactive Keflex 500 mg capsule RxNorm: 431575 1 Capsule(s) PO TID 11/14/2017 11/13/2017 Inactive Dilantin Extended 100 mg capsule RxNorm: 438180 Capsule(s) PO UD m3pill/tue3 pill/wed 4 pill/ thur 2pill/fri 3pill/sat 4pill/sun 3 pill 10/13/2017 12/14/2017 Inactive Dilantin Extended 100 mg capsule RxNorm: 824298 Capsule(s) PO UD -Alternate 300 mg for two days in a row and then 400 mg for one day and repeat cycle 10/04/2017 10/12/2017 Inactive Augmentin 500 mg-125 mg tablet RxNorm: 443542 1 Tablet(s) PO TID 07/15/2017 07/14/2017 Inactive Augmentin 500 mg-125 mg tablet RxNorm: 920782 1 Tablet(s) PO TID 07/15/2017 07/21/2017 Inactive Dilantin Extended 100 mg capsule RxNorm: 466045 1 Capsule(s) PO daily -Alternate 300 mg and 400 mg every other day 06/07/2017 10/03/2017 Inactive Bactrim DS 800 mg-160 mg tablet RxNorm: 025935 1 Tablet(s) PO BID 05/02/2017 05/08/2017 Inactive Dilantin Extended 100 mg capsule RxNorm: 124731 1 Capsule(s) PO daily in the afternoon and 2 Capsules PO HS- Will take an additional pill if she has a lot of jerking 04/27/2017 06/06/2017 Inactive Keflex 500 mg capsule RxNorm: 075725 1 Capsule(s) PO TID 04/19/2017 04/23/2017 Inactive dicyclomine 10 mg capsule RxNorm: 966833 1 Capsule(s) PO BID as needed 03/30/2017 05/28/2017 Inactive Senna with Docusate Sodium 8.6 mg-50 mg tablet RxNorm: 758307 1 Tablet(s) PO BID as needed constipation 03/02/2017 07/29/2017 Inactive Keflex 500 mg capsule RxNorm: 703532 1 Capsule(s) PO TID 08/11/2016 08/20/2016 Inactive Levaquin 500 mg tablet RxNorm: 648390 1 Tablet(s) PO daily 04/16/2016 04/22/2016 Inactive ciprofloxacin 500 mg tablet RxNorm: 993694 1 Tablet(s) PO BID 02/10/2016 02/16/2016 Inactive prednisone 10 mg tablet RxNorm: 196832 1 Tablet(s) PO as needed for pain No Start Date Active Prolia 60 mg/mL subcutaneous syringe RxNorm: 468606 1 injection SQ Q6 months No Start Date Active lamotrigine 150 mg tablet RxNorm: 420314 1 Tablet(s) PO QHS No Start Date 12/06/2017 Inactive lamotrigine 100 mg tablet RxNorm: 805596 1 Tablet(s) PO QAM No Start Date 12/06/2017 Inactive Dilantin Extended 100 mg capsule RxNorm: 112076 Capsule(s) PO TAKES FOUR CAPSULES FOR 2 DAYS, THEN THREE CAPSULES FOR 1 DAY, THEN REPEATS No Start Date 04/26/2017 Inactive Zithromax Z-Escobar 250 mg tablet RxNorm: 207770 2 po on first dose and 1 daily Tablet(s) PO No Start Date 07/26/2018 Inactive zpack x 1 Humira 20 mg/0.4 mL subcutaneous syringe kit RxNorm: 691238 1 injection SQ every 2 weeks- Prescribed [...] Ord7 DILANTIN 10.5 UG/ML 05/11/2018 Comp Metabolic Iec078 NA 138 mEq/L 05/11/2018 Comp Metabolic Hir033 K 4.0 mEq/L 05/11/2018 Comp Metabolic Nlq399 CL 100 mEq/L 05/11/2018 Comp Metabolic Jig369 CO2 29.0 mEq/L 05/11/2018 Comp Metabolic Yip494 ANION GAP 13 05/11/2018 Comp Metabolic Sgs015 GLUCOSE 84 mg/dL 05/11/2018 Comp Metabolic Sen143 Creat 0.8 mg/dL 05/11/2018 Comp Metabolic Nqc770 eGFR 77 ml/min/1.73m2 05/11/2018 Comp Metabolic Eps796 BUN 26 mg/dL 05/11/2018 Comp Metabolic Nlk625 B/C Ratio 33.3 Ratio 05/11/2018 Comp Metabolic Puf206 CALCIUM 9.1 mg/dL 05/11/2018 Comp Metabolic Lqt892 ALK PHOS 97 U/L 05/11/2018 Comp Metabolic Pgj566 AST(SGOT) 14 U/L 05/11/2018 Comp Metabolic Rhd345 ALT(SGPT) 7 U/L 05/11/2018 Comp Metabolic Oqr530 BILI T 0.3 mg/dL 05/11/2018 Comp Metabolic Pxc407 ALBUMIN 3.6 g/dL 05/11/2018 Comp Metabolic Vel806 TPRO 6.9 g/dL 05/11/2018 Comp Metabolic Ddj202 GLOB 3.3 g/dL 05/11/2018 Comp Metabolic Phz512 A/G Ratio 1.1 Ratio 05/11/2018 Comp Metabolic Xyn061 Osmo 280 mOsmo 05/11/2018 Dilantin Ord7 DILANTIN 10.7 UG/ML 04/25/2018 Valproic Acid Mar285 VALPROIC <10 ug/ml 04/24/2018 Dilantin Ord7 DILANTIN 10.6 UG/ML 04/11/2018 Culture Urine [id number] URINE CULTURE SEE NOTES 02/20/2018 Culture Urine [id number] Continued Results 02/20/2018 Urine Culture Ucult Complete >100,000 col/ml aerobic growth sent to ref lab 02/17/2018 Dilantin Ord7 DILANTIN 14.4 UG/ML 02/16/2018 Comp Metabolic Bej363 NA 135 mEq/L 02/16/2018 Comp Metabolic Onx623 K 3.8 mEq/L 02/16/2018 Comp Metabolic Vlo184 CL 99 mEq/L 02/16/2018 Comp Metabolic Xih994 CO2 28.0 mEq/L 02/16/2018 Comp Metabolic Pyr837 ANION GAP 12 02/16/2018 Comp Metabolic Rbr365 GLUCOSE 101 mg/dL 02/16/2018 Comp Metabolic Hev661 Creat 0.8 mg/dL 02/16/2018 Comp Metabolic Ojx096 eGFR 75 ml/min/1.73m2 02/16/2018 Comp Metabolic Sdj233 BUN 20 mg/dL 02/16/2018 Comp Metabolic Ccc428 B/C Ratio 25.0 Ratio 02/16/2018 Comp Metabolic Jcc582 CALCIUM 8.9 mg/dL 02/16/2018 Comp Metabolic Ayy564 ALK PHOS 95 U/L 02/16/2018 Comp Metabolic Xyo022 AST(SGOT) 13 U/L 02/16/2018 Comp Metabolic Blm791 ALT(SGPT) 7 U/L 02/16/2018 Comp Metabolic Nqy280 BILI T 0.4 mg/dL 02/16/2018 Comp Metabolic Vxl887 ALBUMIN 3.6 g/dL 02/16/2018 Comp Metabolic Dxv835 TPRO 7.2 g/dL 02/16/2018 Comp Metabolic Fpv948 GLOB 3.6 g/dL 02/16/2018 Comp Metabolic Wkh871 A/G Ratio 1.0 Ratio 02/16/2018 Comp Metabolic Ddj686 Osmo 273 mOsmo 02/16/2018 Urine Culture Ucult Complete >100,000 col/ml aerobic growth sent to ref lab 11/15/2017 Comp Metabolic Mki845 NA 136 mEq/L 10/13/2017 Comp Metabolic Och330 K 4.0 mEq/L 10/13/2017 Comp Metabolic Hpz379 CL 98 mEq/L 10/13/2017 Comp Metabolic Sck011 CO2 28.0 mEq/L 10/13/2017 Comp Metabolic Utk363 ANION GAP 14 10/13/2017 Comp Metabolic Yqf195 GLUCOSE 94 mg/dL 10/13/2017 Comp Metabolic Axu556 Creat 0.7 mg/dL 10/13/2017 Comp Metabolic Yzj896 eGFR 82 ml/min/1.73m2 10/13/2017 Comp Metabolic Vfe424 BUN 26 mg/dL 10/13/2017 Comp Metabolic Vwb921 B/C Ratio 35.1 Ratio 10/13/2017 Comp Metabolic Vuf286 CALCIUM 9.1 mg/dL 10/13/2017 Comp Metabolic Teg971 ALK PHOS 98 U/L 10/13/2017 Comp Metabolic Tus799 AST(SGOT) 15 U/L 10/13/2017 Comp Metabolic Ree968 ALT(SGPT) 8 U/L 10/13/2017 Comp Metabolic Pva156 BILI T 0.4 mg/dL 10/13/2017 Comp Metabolic Jfy186 ALBUMIN 3.7 g/dL 10/13/2017 Comp Metabolic Gyp969 TPRO 7.8 g/dL 10/13/2017 Comp Metabolic Ljc071 GLOB 4.1 g/dL 10/13/2017 Comp Metabolic Pvv295 A/G Ratio 0.9 Ratio 10/13/2017 Comp Metabolic Fca274 Osmo 276 mOsmo 10/13/2017 Dilantin Ord7 DILANTIN 21.4 Result Verified By Repeat Analysis UG/ML 10/13/2017 Dilantin Ord7 DILANTIN 24.1 Result Verified By Repeat Analysis UG/ML 10/03/2017 Dilantin Ord7 DILANTIN 18.1 UG/ML 06/30/2017 Dilantin Ord7 DILANTIN 22.7 UG/ML 06/16/2017 Dilantin Ord7 DILANTIN 26.1 UG/ML 06/07/2017 Dilantin Ord7 DILANTIN 24.1 UG/ML 05/24/2017 Dilantin Ord7 DILANTIN 19.6 UG/ML 05/11/2017 Culture Urine [id number] URINE CULTURE SEE NOTES 05/06/2017 Culture Urine [id number] Continued Results 05/06/2017 Urine Culture Ucult Complete >100,000 col/ml aerobic growth sent to ref lab 05/03/2017 Dilantin Ord7 DILANTIN 12.6 UG/ML 04/27/2017 Calcium Ord79 CALCIUM 9.3 mg/dL 04/19/2017 Dilantin Ord7 DILANTIN 21.6 UG/ML 04/19/2017 Dilantin Ord7 DILANTIN 10.3 UG/ML 04/13/2017 Dilantin Ord7 DILANTIN 21.9 UG/ML 04/07/2017 Comp Metabolic Sxx702 NA 137 mEq/L 03/30/2017 Comp Metabolic Zjl888 K 3.7 mEq/L 03/30/2017 Comp Metabolic Bew390 CL 98 mEq/L 03/30/2017 Comp Metabolic Sam968 CO2 29.0 mEq/L 03/30/2017 Comp Metabolic Mnb832 ANION GAP 14 03/30/2017 Comp Metabolic Iwp001 GLUCOSE 100 mg/dL 03/30/2017 Comp Metabolic Gfx815 Creat 0.9 mg/dL 03/30/2017 Comp Metabolic Zjr910 eGFR 88 ml/min/1.73m2 03/30/2017 Comp Metabolic Jic770 BUN 22 mg/dL 03/30/2017 Comp Metabolic Ojv514 B/C Ratio 24.4 Ratio 03/30/2017 Comp Metabolic Lsp911 CALCIUM 9.4 mg/dL 03/30/2017 Comp Metabolic Lrf175 ALK PHOS 113 U/L 03/30/2017 Comp Metabolic Wxw388 AST(SGOT) 16 U/L 03/30/2017 Comp Metabolic Nqm234 ALT(SGPT) 7 U/L 03/30/2017 Comp Metabolic Arm905 BILI T 0.3 mg/dL 03/30/2017 Comp Metabolic Arc728 ALBUMIN 3.9 g/dL 03/30/2017 Comp Metabolic Nxy600 TPRO 8.0 g/dL 03/30/2017 Comp Metabolic Eaa030 GLOB 4.1 g/dL 03/30/2017 Comp Metabolic Lrj546 A/G Ratio 0.9 Ratio 03/30/2017 Comp Metabolic Qai274 Osmo 277 mOsmo 03/30/2017 Lipid Ord30 CHOL 214 mg/dL 03/30/2017 Lipid Ord30 HDL 61.0 mg/dl 03/30/2017 Lipid Ord30 TRIG 130 mg/dL 03/30/2017 Lipid Ord30 LDL 127 mg/dL 03/30/2017 Lipid Ord30 C/HDL 3.5 Ratio 03/30/2017 Dilantin Ord7 DILANTIN 32.5 UG/ML 03/30/2017 Folate Ord36 Folate 16.46 ng/mL 03/30/2017 Tsh Ord6 hTSH II 0.95 uIU/mL 03/30/2017 B12 Mht321 B12 592.00 pg/ml 03/30/2017 Cbc With Differential [...] 30.9 pg 03/30/2017 Cbc With Differential Ord2 [place]% 23.9 % 03/30/2017 Cbc With Differential Ord2 [...] 0.44 K/ul 03/30/2017 Cbc With Differential Ord2 [place] ABS# 0.3 K/ul 03/30/2017 Cbc With Differential [...] 30.3 pg 08/11/2016 Cbc With Differential Ord2 [place]% 31.7 % 08/11/2016 Cbc With Differential Ord2 [...] 0.59 K/ul 08/11/2016 Cbc With Differential Ord2 [place] ABS# 0.6 K/ul 08/11/2016 Cbc With Differential Ord2 Eos ABS# 0.0 K/ul 08/11/2016 Cbc With Differential Ord2 Baso ABS# 0.0 K/ul 08/11/2016 Dilantin Ord7 DILANTIN 17.2 UG/ML 08/11/2016 Tsh Ord6 hTSH II 0.82 uIU/mL 08/11/2016 Comp Metabolic Hkw676 NA 131 mEq/L 08/11/2016 Comp Metabolic Wbk582 K 4.1 mEq/L 08/11/2016 Comp Metabolic Sxu783 CL 93 mEq/L 08/11/2016 Comp Metabolic Stv318 CO2 29.0 mEq/L 08/11/2016 Comp Metabolic Vwp680 ANION GAP 13 08/11/2016 Comp Metabolic Dmo488 GLUCOSE 120 mg/dL 08/11/2016 Comp Metabolic Yoh006 Creat 0.8 mg/dL 08/11/2016 Comp Metabolic Rlr107 eGFR 101 ml/min/1.73m2 08/11/2016 Comp Metabolic Unr723 BUN 18 mg/dL 08/11/2016 Comp Metabolic Nie531 B/C Ratio 22.5 Ratio 08/11/2016 Comp Metabolic Rzc869 CALCIUM 9.5 mg/dL 08/11/2016 Comp Metabolic Ubf715 ALK PHOS 104 U/L 08/11/2016 Comp Metabolic Rsq561 AST(SGOT) 16 U/L 08/11/2016 Comp Metabolic Wez404 ALT(SGPT) 8 U/L 08/11/2016 Comp Metabolic Zud311 BILI T 0.4 mg/dL 08/11/2016 Comp Metabolic Dfp546 ALBUMIN 3.8 g/dL 08/11/2016 Comp Metabolic Fxd402 TPRO 8.4 g/dL 08/11/2016 Comp Metabolic Isu123 GLOB 4.6 g/dL 08/11/2016 Comp Metabolic Xin580 A/G Ratio 0.8 Ratio 08/11/2016 Comp Metabolic Ulo961 Osmo 266 mOsmo 08/11/2016 Culture Urine [id number] URINE CULTURE SEE NOTES 04/19/2016 Culture Urine [id number] Continued Results 04/19/2016 Urine Culture Ucult Complete >100,000 col/ml aerobic growth sent to ref lab 04/17/2016 Culture Urine [id number] URINE CULTURE SEE NOTES 02/13/2016 Culture Urine [id number] Continued Results 02/13/2016 Urine Culture Ucult Complete [...] Codes Date URINALYSIS NONAUTO W/O SCOPE CPT-4: 56018 09/14/2018 URINALYSIS NONAUTO W/O SCOPE CPT-4: 49091 08/07/2018 URINALYSIS NONAUTO W/O SCOPE CPT-4: 13572 06/12/2018 URINALYSIS NONAUTO W/O SCOPE CPT-4: 28786 02/16/2018 URINALYSIS NONAUTO W/O SCOPE CPT-4: 51527 11/14/2017 PPPS, SUBSEQ VISIT CPT- 4: G0439 06/07/2017 URINALYSIS NONAUTO W/O SCOPE CPT-4: 49949 05/02/2017 URINALYSIS NONAUTO W/O SCOPE CPT-4: 17957 04/26/2017 PPPS, SUBSEQ VISIT CPT- 4: G0439 06/01/2016 URINALYSIS NONAUTO W/O SCOPE CPT-4: 99546 04/16/2016 URINALYSIS NONAUTO W/O SCOPE CPT-4: 26047 02/10/2016 Vital Signs Date Vital 09/12/2018 Blood Pressure 1: 106/60 Code: 8480-6 BMI: 17.5 Code: 59482-0 Heart Rate 1: 100 bpm Height: 5'5" SpO2: 97% Weight: 105 lbs 08/21/2018 Blood Pressure 1: 96/60 Code: 8480-6 Heart Rate 1: 114 bpm Height: 5'5" SpO2: 98% Weight: 07/20/2018 Blood Pressure 1: 104/60 Code: 8480-6 Heart Rate 1: 122 bpm Height: 5'5" SpO2: 94% Temperature: 36.7 (C) / 98.1 (F) Weight: 07/07/2018 Blood Pressure 1: 110/62 Code: 8480-6 BMI: 18.8 Code: 25559-8 Heart Rate 1: 67 bpm Height: 5'5" Temperature: 36.8 (C) / 98.2 (F) Weight: 113 lbs 05/22/2018 Blood Pressure 1: 112/68 Code: 8480-6 BMI: 18.6 Code: 74462-3 Heart Rate 1: 128 bpm Height: 5'5" SpO2: 98% Weight: 112 lbs 04/04/2018 Blood Pressure 1: 94/52 Code: 8480-6 Heart Rate 1: 120 bpm Height: 5'5" Respiratory Rate: 18 bpm SpO2: 98% Weight: 02/16/2018 Blood Pressure 1: 120/70 Code: 8480-6 BMI: 19.1 Code: 72056-0 Heart Rate 1: 115 bpm Height: 5'5" SpO2: 97% Weight: 115 lbs 12/30/2017 Blood Pressure 1: 10068 Code: 8480-6 BMI: 18.3 Code: 82415-1 Heart Rate 1: 120 bpm Height: 5'5" SpO2: 94% Weight: 110 lbs 10/13/2017 Blood Pressure 1: 136/78 Code: 8480-6 BMI: 18.1 Code: 12613-8 Heart Rate 1: 126 bpm Height: 5'5" SpO2: 96% Weight: 109 lbs 07/12/2017 Blood Pressure 1: 100/56 Code: 8480-6 BMI: 18.1 Code: 50774-4 Heart Rate 1: 123 bpm Height: 5'5" SpO2: 99% Weight: 109 lbs 06/07/2017 Blood Pressure 1: 98/68 Code: 8480-6 BMI: 18.1 Code: 27032- 5 Heart Rate 1: 120 bpm Height: 5'5" SpO2: 99% Waist Measure (cm): 80 cm Weight: 109 lbs 05/24/2017 Blood Pressure 1: 104/62 Code: 8480-6 BMI: 18.1 Code: 10721-3 Heart Rate 1: 121 bpm Height: 5'5" SpO2: 97% Weight: 109 lbs 04/27/2017 Blood Pressure 1: 132/84 Code: 8480-6 BMI: 17.8 Code: 77422-8 Heart Rate 1: 129 bpm Height: 5'5" SpO2: 99% Weight: 107 lbs 04/13/2017 Blood Pressure 1: 100/66 Code: 8480-6 Heart Rate 1: 120 bpm Height: 5'5" SpO2: 99% Weight: 03/30/2017 Blood Pressure 1: 112 Code: 8480-6 BMI: 17.8 Code: 58489-5 Heart Rate 1: 112 bpm Height: 5'5" SpO2: 98% Weight: 107 lbs 03/02/2017 Blood Pressure 1: 128/78 Code: 8480-6 BMI: 18.1 Code: 36177-7 Heart Rate 1: 86 bpm Height: 5'5" SpO2: 95% Weight: 109 lbs 08/30/2016 Blood Pressure 1: 102/60 Code: 8480-6 BMI: 18.1 Code: 05612-8 Heart Rate 1: 135 bpm Height: 5'5" SpO2: 98% Weight: 109 lbs 08/11/2016 Blood Pressure 1: 100/66 Code: 8480-6 BMI: 18.6 Code: 51757-6 Heart Rate 1: 86 bpm Height: 5'5" SpO2: 94% Weight: 112 lbs 06/01/2016 Blood Pressure 1: 126/80 Code: 8480-6 BMI: 19.0 Code: 52712-1 Heart Rate 1: 100 bpm Height: 5'5" SpO2: 98% Waist Measure (cm): 64 cm Weight: 114 lbs 04/16/2016 Blood Pressure 1: 124/80 Code: 8480-6 Heart Rate 1: 110 bpm SpO2: 97% 02/10/2016 Blood Pressure 1: 102/64 Code: 8480-6 BMI: 18.3 Code: 49647-1 Heart Rate 1: 114 bpm Height: 5'5" [...] Present Encounters Encounter Performer Location Codes Date 85180 EST. PATIENT, LEVEL III Diagnosis: Other epilepsy, not intractable, without status epilepticus[ICD10: G40.802] Diagnosis: Muscle weakness (generalized)[ICD10: M62.81] Magali Zepeda MD, [facility] CPT-4: 57131 09/12/2018 ([id number]) 07959 EST. PATIENT, LEVEL IV Diagnosis: Unsteadiness on feet[ICD10: R26.81] Diagnosis: Other epilepsy, not intractable, without status epilepticus[ICD10: G40.802] Diagnosis: Muscle weakness (generalized)[ICD10: M62.81] Magali Zepeda MD, [facility] CPT-4: 00682 08/21/2018 [id number]) 24471 EST. PATIENT, LEVEL III Diagnosis: Cough[ICD10: R05] Diagnosis: Other epilepsy, not intractable, without status epilepticus[ICD10: G40.802] Mishel Zepeda MD, [facility] CPT-4: 47896 07/20/2018 [id number]) 20883 EST. PATIENT, LEVEL III Diagnosis: Cough[ICD10: R05] Diagnosis: Acute upper respiratory infection, unspecified[ICD10: J06.9] Mishel Zepeda MD, [facility] CPT-4: 35777 07/07/2018 [id number]) 05338 EST. PATIENT, LEVEL IV Diagnosis: Unsteadiness on feet[ICD10: R26.81] Diagnosis: Other abnormalities of gait and mobility[ICD10: R26.89] Diagnosis: Mixed incontinence[ICD10: N39.46] Diagnosis: Other epilepsy, not intractable, without status epilepticus[ICD10: G40.802] Magali Zepeda MD, [facility] CPT-4: 84675 05/22/2018 ([id number]) 26080 EST. PATIENT, LEVEL III Diagnosis: Right upper quadrant abdominal rigidity[ICD10: R19.31] Diagnosis: Functional diarrhea[ICD10: K59.1] Diagnosis: Calculus of gallbladder without cholecystitis without obstruction[ICD10: K80.20] Magali Zepeda MD, [facility] CPT-4: 91287 04/04/2018 ([id number]) 44777 EST. PATIENT, LEVEL IV Diagnosis: Other epilepsy, not intractable, without status epilepticus[ICD10: G40.802] Diagnosis: Slow transit constipation[ICD10: K59.01] Diagnosis: Dysuria[ICD10: R30.0] Diagnosis: Age-related osteoporosis without current pathological fracture[ICD10: M81.0] Magali Zepeda MD, [facility] CPT-4: 44010 02/16/2018 ([id number]) 10401 EST. PATIENT, LEVEL III Diagnosis: Slow transit constipation[ICD10: K59.01] Mishel Zepeda MD, [facility] CPT-4: 09848 12/30/2017 ([id number]) 67150 EST. PATIENT, LEVEL IV Diagnosis: Other epilepsy, not intractable, without status epilepticus[ICD10: G40.802] Diagnosis: Slow transit constipation[ICD10: K59.01] Magali Zepeda MD, [facility] CPT-4: 41411 10/13/2017 ([id number]) 59033 EST. PATIENT, LEVEL III Diagnosis: Other epilepsy, not intractable, without status epilepticus[ICD10: G40.802] Diagnosis: Dysuria[ICD10: R30.0] Diagnosis: Mixed incontinence[ICD10: N39.46] Magali Zepeda MD, [facility] CPT- 4: 51572 07/12/2017 ([id number]) 09548 EST. 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 PATIENT, LEVEL III Diagnosis: Other epilepsy, not intractable, without status epilepticus[ICD10: G40.802] Magali Zepeda MD [facility] CPT-4: 74536 04/27/2017 [id number] EST. 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 PATIENT, LEVEL IV Diagnosis: Calculus of gallbladder without cholecystitis without obstruction[ICD10: K80.20] Diagnosis: Benign paroxysmal vertigo, bilateral[ICD10: H81.13] Diagnosis: Slow transit constipation[ICD10: K59.01] Magali Zepeda MD [facility] CPT-4: 17861 03/02/2017 ([id number]) 77700 EST. 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 PATIENT, LEVEL IV Diagnosis: Other epilepsy, not intractable, without status epilepticus[ICD10: G40.802] Diagnosis: Low back pain[ICD10: M54.5] Diagnosis: Pressure ulcer of sacral region, stage 1[ICD10: L89.151] [facility] CPT-4: 21735 08/11/2016 ([id number]) 19229 EST. PATIENT, LEVEL III Diagnosis: Urinary tract infection, site not specified[ICD10: N39.0] Diagnosis: Slow transit constipation[ICD10: K59.01] [facility] CPT-4: 89298 04/16/2016 ([id number]) OFFICE VISIT, NEW - LEVEL 4 Diagnosis: Other abnormalities of gait and mobility[ICD10: R26.89] Diagnosis: Dysuria[ICD10: R30.0] Diagnosis: Rheumatoid arthritis without rheumatoid factor, multiple sites[ICD10: M06.09] [facility] CPT-4: 12462 02/10/2016 Plan of Care Planned Activity Notes Codes Status Date Appointment: Lab Draw 09/14/2018 Patient Education: Patient Medication Summary Completed 09/14/2018 Visit Plan: Seizure disorder - check dilantin level - no change in current medications. Monitor symptoms. Generalized malaise - check urinalysis. 09/12/2018 Appointment: Magali Zepeda [facility]Ptel: [id number] (15 min) Moderate 09/12/2018 Patient Education: Patient [...] while seated. 08/21/2018 Appointment: Mag[facility]eda [facility]el[facility] [phone] [id number] (15 min) Moderate 08/21/2018 Patient Education: Patient Medication Summary Completed 08/21/2018 Appointment: Lab Draw 08/07/2018 Patient Education: Patient Medication Summary Completed 08/07/2018 Patient Education: Patient Medication Summary Completed 08/03/2018 Visit Plan: Seizures -increase dilantin -repeat dilantin level in 1 week [id number] cefdinir-finish abx and let us know if your symptoms do not resolve or if any worse 07/20/2018 Appointment: Mishel Wilson WPtel: [address] [place], [place] [id number] (15 min) Moderate 07/20/2018 Patient Education: Patient Medication Summary Completed 07/20/2018 Visit Plan: URI -viral- Pt advised to increase fluids, vitamin C. Discussed natural and expected course of this diagnosis and need to alert me if symptoms do not follow expected course, or if any worse. RX sent to patient's pharmacy to start if needed. 07/07/2018 Appointment: Mishel Wilson WPtel: [address] [place], [place] [phone] [place] (30 min) Complex 07/07/2018 Patient Education: Patient Medication Summary Completed 07/07/2018 Appointment: Magali Zepeda WPtel: [address] [place], [place] [phone] (15 min) Moderate 07/03/2018 Appointment: Lab Draw [...] the house. 05/22/2018 Appointment: Magali Zepeda WPtel: [address] [place], [place] [id number] [place] (15 min) Moderate 05/22/2018 Patient Education: Patient Medication Summary Completed 05/22/2018 Appointment: Magali Zepeda WPtel: [facility] [place] (15 min) Moderate 05/15/2018 Visit [...] post-operatively. 04/04/2018 Appointment: Magali Zepeda WPtel: [phone] [facility] (15 min) Moderate 04/04/2018 Patient Education: Patient Medication Summary Completed 04/04/2018 Patient Education: Diarrhea Completed 04/04/2018 Visit Plan: Epilepsy - chronic - continue with current regimen - check labs. Osteoporosis - pt is currently getting Prolia in [place], this is a big burden for her - They have asked for her to be set up for prolia for at the end of may at [address]- to call with specific date. Dysuria - UA - +leukocytes - start on keflex - rx sent to pharmacy. Chronic constipation - monitor symptoms. Continue with supportive care. 02/16/2018 Appointment: [phone] [place] (15 min) Moderate 02/16/2018 Patient [...] regimen. 12/30/2017 App[facility]ment: [phone] [place] (30 min) Complex 12/30/2017 Patient Education: [...] regimen. 10/13/2017 Appointment: Magali Zepeda WPtel: [phone] [facility] [place] (15 min) Moderate 10/13/2017 Patient Education: Patient Medication Summary Completed 10/13/2017 Appointment: Magali Zepeda WPtel: [phone] [facility] [place] (15 min) Moderate 10/06/2017 Appointment: [...] accident 07/12/2017 Appointment: [facility]eda [facility]el[facility] [phone] [facility] [place] (15 min) Moderate 07/12/2017 Patient Education: Patient Medication Summary Completed 07/12/2017 Appointment: Magali Zepeda WPtel: [facility] [place] (15 min) Moderate 07/05/2017 Visit [...] 06/07/2017 Appointment: Windy Greco WPtel: [facility] [facility] - Annual Wellness Visit 06/07/2017 [...] 05/24/2017 Appointment: Magali Zepeda WPtel: [facility] (15 min) Moderate 05/24/2017 Patient Education: Patient Medication Summary Completed 05/24/2017 Appointment: Mag[facility]epeda WPtel[facility] [phone] [facility] (15 min) Moderate 05/11/2017 Visit Plan: [...] a week) 04/27/2017 Appointment: Mag[facility] Zepeda WPtel: [phone] [facility] [place] (15 min) Moderate 04/27/2017 Patient [...] symptoms. 04/13/2017 Appointment: [facility]epeda [facility]Ptel[facility] [phone] [facility] [place] (15 min) Moderate 04/13/2017 Patient Education: [...] strategy. 03/30/2017 Appointment: Mag[facility]epeda [facility]Ptel: [phone] [facility] [place] (15 min) Moderate 03/30/2017 Patient [...] for constipation. 03/02/2017 Appointment: Magali Zepeda WPtel: [facility] (30 min) Complex 03/02/2017 Patient Education: Patient Medication Summary Completed 03/02/2017 Visit Plan: RA and Gait abnormality -continue with current treatments - supportive care Suspect some of her movement abnormalities may be due to her lamotrigine. 08/30/2016 Appointment: Magali Zepeda WPtel: [phone] [facility] (30 min) Complex 08/30/2016 Patient Education: [...] warmth, discharge. 08/11/2016 Appointment: Windy Greco WPtel: [phone] [facility] (30 min) Complex 08/11/2016 Patient Education: [...] care surrogate. 06/01/2016 Appointment: Angus Windy WPtel: [facility] [address] - Annual Wellness Visit 06/01/2016 Patient [...] 04/16/2016 Appointment: Mishel Wilson WPtel: [phone] (15 min) Moderate 04/16/2016 Patient Education: Patient Medication Summary Completed 04/16/2016 Visit Plan: RA and Gait abnormality - recommended pt to have referral to physical therapy at [facility]. Suspect some of her movement abnormalities may be due to her lamotrigine. 02/10/2016 Appointment: Magali Zepeda WPtel: [facility] New Patient 02/10/2016 Patient Education: Patient [...] - pt is currently getting Prolia in [place], this is a big burden for her [...] dilantin -repeat dilantin level in 1 week [id number] cefdinir-finish abx and let us know if [...] RECOMMEND PROBIOTIC-ANY BRAND IS FINE: [facility], ALIGN sign release for labs [...]
[2018-12-30 22:29] LABS: ALANINE AMINOTRANSFERASE 10 U/L (0-55); ALBUMIN 3.5 GM/DL (3.2-4.5); ALKALINE PHOSPHATASE 120 U/L (40-136); BILIRUBIN,TOTAL 0.2 MG/DL (0.1-1.0); BUN/CREATININE RATIO 21; CALCIUM 8.3 MG/DL (8.5-10.1); CARBON DIOXIDE 21 MMOL/L (21-32); CHLORIDE 103 MMOL/L (98-107); CREATININE SERUM 0.87 MG/DL (0.60-1.30); GFR ESTIMATED > 60; GLUCOSE 117 MG/DL (70-105); MAGNESIUM 2.1 MG/DL (1.8-2.4); POTASSIUM 3.7 MMOL/L (3.6-5.0); SODIUM 137 MMOL/L (135-145)
[2018-12-30] MEDS ORDERED: LORazepam INJ 2 MG/ML (ATIVAN) VIAL IVP PRN (22:30)
--- OUTSIDE RECORDS SUMMARY | 2018-12-30 22:30 | XMS REPORT | CCD ---
Author Author [facility] Organization [facility] Address [address] [place] [address] Phone Care Team Providers Care Glass Beveler Name Role Phone PP Unavailable CCM Unavailable Summary Purpose Interface Exchange Insurance Providers Payer name Policy type / Coverage type Covered democrat ID Effective Begin Date Effective End Date WPS Medicare Part B Medicare Part B [id number] Unknown [employer] Medicare Part B [id number] Unknown Family history Sister Diagnosis Age At [...] Unknown Retired 02/10/[address]: 885637496 Never smoker 02/10/[address]: 943747142 Never drinks alcohol 02/10/2016 Has the patient [...] Start Date Stop Date Status Fill Instructions doxycycline hyclate 100 mg tablet RxNorm: 8674666 1 Tablet(s) PO BID 08/16/2018 08/15/2018 Inactive dc keflex doxycycline hyclate 100 mg tablet RxNorm: 6835557 1 Tablet(s) PO BID 08/16/2018 08/25/2018 Inactive dc keflex lamotrigine 150 mg tablet RxNorm: 128517 TAKE 1 TABLET BY MOUTH AT BEDTIME 08/14/2018 No Stop Date Active Keflex 500 mg capsule RxNorm: 561963 1 Capsule(s) PO TID and probiotic bid x7 08/14/2018 08/15/2018 Inactive Keflex 500 mg capsule RxNorm: 006605 1 Capsule(s) PO TID and probiotic bid x7 08/14/2018 08/13/2018 Inactive Zithromax Z-Escobar 250 mg tablet RxNorm: 612793 2 po on first dose and 1 daily Tablet(s) PO 07/27/2018 08/20/2018 Inactive zpack x 1 Mucinex 600 mg tablet, extended release RxNorm: 891155 1 Tablet(s) PO BID 07/27/2018 07/26/2018 Inactive Mucinex 600 mg tablet, extended release RxNorm: 376349 1 Tablet(s) PO BID 07/27/2018 08/09/2018 Inactive Dilantin Extended 100 mg capsule RxNorm: 243914 Capsule(s) TAKE 1 CAP TID ON Mon/Thurs AND 1 CAPSULE QID other days. if having symptoms of seizure activity, take an extra pill 07/20/2018 No Stop Date Active amoxicillin 500 mg tablet RxNorm: 492460 1 Tablet(s) PO TID 07/07/2018 07/13/2018 Inactive lamotrigine 100 mg tablet RxNorm: 842996 TAKE 1 TABLET BY MOUTH IN THE MORNING 07/03/2018 No Stop Date Active Keflex 500 mg capsule RxNorm: 537092 1 Capsule(s) PO QID 06/12/2018 06/18/2018 Inactive please call patient to let her know she needs to picker feeder rx for antibiotic Dilantin Extended 100 mg capsule RxNorm: 054975 Capsule(s) TAKE 1 CAP TID ON AND 1 CAPSULE QID ON /TUE. if having symptoms of seizure activity, take an extra pill 05/29/2018 07/19/2018 Inactive Dilantin Extended 100 mg capsule RxNorm: 014924 Capsule(s) TAKE 1 CAP TID x2 DAYS, THEN 1 CAPSULE qid x2 DAYs, THEN REPEAT CYCLE. if having symptoms of seizure activity, take an extra pill 05/22/2018 05/28/2018 Inactive lamotrigine 150 mg tablet RxNorm: 283094 TAKE 1 TABLET BY MOUTH AT BEDTIME 04/17/2018 08/13/2018 Inactive Dilantin Extended 100 mg capsule RxNorm: 808644 TAKE 1 CAPSULE BY MOUTH THREE TIMES DAILY FOR 3 DAYS, THEN 1 CAPSULE FOUR TIMES DAILY FOR 1 DAY, THEN REPEAT CYCLE. 04/12/2018 05/21/2018 Inactive lamotrigine 100 mg tablet RxNorm: 149276 TAKE 1 TABLET BY MOUTH IN THE MORNING 03/31/2018 07/02/2018 Inactive dicyclomine 10 mg capsule RxNorm: 216460 TAKE ONE CAPSULE BY MOUTH TWICE DAILY NEEDED 02/20/2018 No Stop Date Active Keflex 500 mg capsule RxNorm: 505373 1 Capsule(s) PO QID 02/16/2018 02/22/2018 Inactive please call patient to let her know she needs to picker feeder rx for antibiotic Penlac 8 % topical solution RxNorm: 070028 1 Application TOP daily clean off every 7 days and restart application process 02/16/2018 09/13/2018 Inactive ok to dispense generic Dilantin Extended 100 mg capsule RxNorm: 781363 Capsule(s) PO UD 1 cap TID x 3 days then 1 cap qid x 1 day then repeat cycle 12/15/2017 04/11/2018 Inactive give 1 month supply lamotrigine 150 mg tablet RxNorm: 247159 1 Tablet(s) PO QHS 12/07/2017 04/05/2018 Inactive lamotrigine 100 mg tablet RxNorm: 728370 1 Tablet(s) PO QAM 12/07/2017 03/30/2018 Inactive Levaquin 500 mg tablet RxNorm: 517382 1 Tablet(s) PO daily 12/05/2017 12/11/2017 Inactive Keflex 500 mg capsule RxNorm: 478386 1 Capsule(s) PO TID 11/14/2017 11/20/2017 Inactive Keflex 500 mg capsule RxNorm: 480086 1 Capsule(s) PO TID 11/14/2017 11/13/2017 Inactive Dilantin Extended 100 mg capsule RxNorm: 041687 Capsule(s) PO UD m3pill/tue3 pill/wed 4 pill/ thur 2pill/fri 3pill/sat 4pill/sun 3 pill 10/13/2017 12/14/2017 Inactive Dilantin Extended 100 mg capsule RxNorm: 308851 Capsule(s) PO UD -Alternate 300 mg for two days in a row and then 400 mg for one day and repeat cycle 10/04/2017 10/12/2017 Inactive Augmentin 500 mg-125 mg tablet RxNorm: 660302 1 Tablet(s) PO TID 07/15/2017 07/14/2017 Inactive Augmentin 500 mg-125 mg tablet RxNorm: 234415 1 Tablet(s) PO TID 07/15/2017 07/21/2017 Inactive Dilantin Extended 100 mg capsule RxNorm: 137347 1 Capsule(s) PO daily -Alternate 300 mg and 400 mg every other day 06/07/2017 10/03/2017 Inactive Bactrim DS 800 mg-160 mg tablet RxNorm: 889259 1 Tablet(s) PO BID 05/02/2017 05/08/2017 Inactive Dilantin Extended 100 mg capsule RxNorm: 065980 1 Capsule(s) PO daily in the afternoon and 2 Capsules PO HS- Will take an additional pill if she has a lot of jerking 04/27/2017 06/06/2017 Inactive Keflex 500 mg capsule RxNorm: 274162 1 Capsule(s) PO TID 04/19/2017 04/23/2017 Inactive dicyclomine 10 mg capsule RxNorm: 699380 1 Capsule(s) PO BID as needed 03/30/2017 05/28/2017 Inactive Senna with Docusate Sodium 8.6 mg-50 mg tablet RxNorm: 980277 1 Tablet(s) PO BID as needed constipation 03/02/2017 07/29/2017 Inactive Keflex 500 mg capsule RxNorm: 453589 1 Capsule(s) PO TID 08/11/2016 08/20/2016 Inactive Levaquin 500 mg tablet RxNorm: 005909 1 Tablet(s) PO daily 04/16/2016 04/22/2016 Inactive ciprofloxacin 500 mg tablet RxNorm: 776338 1 Tablet(s) PO BID 02/10/2016 02/16/2016 Inactive prednisone 10 mg tablet RxNorm: 852586 1 Tablet(s) PO as needed for pain No Start Date Active Prolia 60 mg/mL subcutaneous syringe RxNorm: 492257 1 injection SQ Q6 months No Start Date Active lamotrigine 150 mg tablet RxNorm: 328197 1 Tablet(s) PO QHS No Start Date 12/06/2017 Inactive lamotrigine 100 mg tablet RxNorm: 094454 1 Tablet(s) PO QAM No Start Date 12/06/2017 Inactive Dilantin Extended 100 mg capsule RxNorm: 549050 Capsule(s) PO TAKES FOUR CAPSULES FOR 2 DAYS, THEN THREE CAPSULES FOR 1 DAY, THEN REPEATS No Start Date 04/26/2017 Inactive Zithromax Z-Escobar 250 mg tablet RxNorm: 109738 2 po on first dose and 1 daily Tablet(s) PO No Start Date 07/26/2018 Inactive zpack x 1 Humira 20 mg/0.4 mL subcutaneous syringe kit RxNorm: 253762 1 injection SQ every 2 weeks- Prescribed [...] Ord7 DILANTIN 10.5 UG/ML 05/11/2018 Comp Metabolic Uou886 NA 138 mEq/L 05/11/2018 Comp Metabolic Cnx216 K 4.0 mEq/L 05/11/2018 Comp Metabolic Khu314 CL 100 mEq/L 05/11/2018 Comp Metabolic Okj070 CO2 29.0 mEq/L 05/11/2018 Comp Metabolic Mze744 ANION GAP 13 05/11/2018 Comp Metabolic Ors106 GLUCOSE 84 mg/dL 05/11/2018 Comp Metabolic Prf034 Creat 0.8 mg/dL 05/11/2018 Comp Metabolic Elq306 eGFR 77 ml/min/1.73m2 05/11/2018 Comp Metabolic Oga446 BUN 26 mg/dL 05/11/2018 Comp Metabolic Fye846 B/C Ratio 33.3 Ratio 05/11/2018 Comp Metabolic Ilf734 CALCIUM 9.1 mg/dL 05/11/2018 Comp Metabolic Zqp675 ALK PHOS 97 U/L 05/11/2018 Comp Metabolic Emf987 AST(SGOT) 14 U/L 05/11/2018 Comp Metabolic Mfp786 ALT(SGPT) 7 U/L 05/11/2018 Comp Metabolic Ola569 BILI T 0.3 mg/dL 05/11/2018 Comp Metabolic Iuq456 ALBUMIN 3.6 g/dL 05/11/2018 Comp Metabolic Cud728 TPRO 6.9 g/dL 05/11/2018 Comp Metabolic Sxo009 GLOB 3.3 g/dL 05/11/2018 Comp Metabolic Whn302 A/G Ratio 1.1 Ratio 05/11/2018 Comp Metabolic Rvc344 Osmo 280 mOsmo 05/11/2018 Dilantin Ord7 DILANTIN 10.7 UG/ML 04/25/2018 Valproic Acid Ceq753 VALPROIC <10 ug/ml 04/24/2018 Dilantin Ord7 DILANTIN 10.6 UG/ML 04/11/2018 Culture Urine [id number] URINE CULTURE SEE NOTES 02/20/2018 Culture Urine [id number] Continued Results 02/20/2018 Urine Culture Ucult Complete >100,000 col/ml aerobic growth sent to ref lab 02/17/2018 Dilantin Ord7 DILANTIN 14.4 UG/ML 02/16/2018 Comp Metabolic Vgc686 NA 135 mEq/L 02/16/2018 Comp Metabolic Wym976 K 3.8 mEq/L 02/16/2018 Comp Metabolic Rfq100 CL 99 mEq/L 02/16/2018 Comp Metabolic Fas020 CO2 28.0 mEq/L 02/16/2018 Comp Metabolic Azi251 ANION GAP 12 02/16/2018 Comp Metabolic Utm845 GLUCOSE 101 mg/dL 02/16/2018 Comp Metabolic Irp876 Creat 0.8 mg/dL 02/16/2018 Comp Metabolic Udh127 eGFR 75 ml/min/1.73m2 02/16/2018 Comp Metabolic Lzh279 BUN 20 mg/dL 02/16/2018 Comp Metabolic Vlp875 B/C Ratio 25.0 Ratio 02/16/2018 Comp Metabolic Ckf486 CALCIUM 8.9 mg/dL 02/16/2018 Comp Metabolic Llu686 ALK PHOS 95 U/L 02/16/2018 Comp Metabolic Ljo826 AST(SGOT) 13 U/L 02/16/2018 Comp Metabolic Pai547 ALT(SGPT) 7 U/L 02/16/2018 Comp Metabolic Kct245 BILI T 0.4 mg/dL 02/16/2018 Comp Metabolic Hdv245 ALBUMIN 3.6 g/dL 02/16/2018 Comp Metabolic Yrw712 TPRO 7.2 g/dL 02/16/2018 Comp Metabolic Shg735 GLOB 3.6 g/dL 02/16/2018 Comp Metabolic Djp910 A/G Ratio 1.0 Ratio 02/16/2018 Comp Metabolic Yux488 Osmo 273 mOsmo 02/16/2018 Urine Culture Ucult Complete >100,000 col/ml aerobic growth sent to ref lab 11/15/2017 Comp Metabolic Yfb847 NA 136 mEq/L 10/13/2017 Comp Metabolic Qoq886 K 4.0 mEq/L 10/13/2017 Comp Metabolic Cxj867 CL 98 mEq/L 10/13/2017 Comp Metabolic Skq797 CO2 28.0 mEq/L 10/13/2017 Comp Metabolic Ngs668 ANION GAP 14 10/13/2017 Comp Metabolic Xfv573 GLUCOSE 94 mg/dL 10/13/2017 Comp Metabolic Ybs135 Creat 0.7 mg/dL 10/13/2017 Comp Metabolic Bcr222 eGFR 82 ml/min/1.73m2 10/13/2017 Comp Metabolic Otv027 BUN 26 mg/dL 10/13/2017 Comp Metabolic Itc013 B/C Ratio 35.1 Ratio 10/13/2017 Comp Metabolic Pul865 CALCIUM 9.1 mg/dL 10/13/2017 Comp Metabolic Tbz259 ALK PHOS 98 U/L 10/13/2017 Comp Metabolic Pfj011 AST(SGOT) 15 U/L 10/13/2017 Comp Metabolic Fhw231 ALT(SGPT) 8 U/L 10/13/2017 Comp Metabolic Wtc511 BILI T 0.4 mg/dL 10/13/2017 Comp Metabolic Keh194 ALBUMIN 3.7 g/dL 10/13/2017 Comp Metabolic Xtj472 TPRO 7.8 g/dL 10/13/2017 Comp Metabolic Zju942 GLOB 4.1 g/dL 10/13/2017 Comp Metabolic Xtj690 A/G Ratio 0.9 Ratio 10/13/2017 Comp Metabolic Iyx502 Osmo 276 mOsmo 10/13/2017 Dilantin Ord7 DILANTIN 21.4 Result Verified By Repeat Analysis UG/ML 10/13/2017 Dilantin Ord7 DILANTIN 24.1 Result Verified By Repeat Analysis UG/ML 10/03/2017 Dilantin Ord7 DILANTIN 18.1 UG/ML 06/30/2017 Dilantin Ord7 DILANTIN 22.7 UG/ML 06/16/2017 Dilantin Ord7 DILANTIN 26.1 UG/ML 06/07/2017 Dilantin Ord7 DILANTIN 24.1 UG/ML 05/24/2017 Dilantin Ord7 DILANTIN 19.6 UG/ML 05/11/2017 Culture Urine [id number] URINE CULTURE SEE NOTES 05/06/2017 Culture Urine [id number] Continued Results 05/06/2017 Urine Culture Ucult Complete >100,000 col/ml aerobic growth sent to ref lab 05/03/2017 Dilantin Ord7 DILANTIN 12.6 UG/ML 04/27/2017 Calcium Ord79 CALCIUM 9.3 mg/dL 04/19/2017 Dilantin Ord7 DILANTIN 21.6 UG/ML 04/19/2017 Dilantin Ord7 DILANTIN 10.3 UG/ML 04/13/2017 Dilantin Ord7 DILANTIN 21.9 UG/ML 04/07/2017 Comp Metabolic Ier433 NA 137 mEq/L 03/30/2017 Comp Metabolic Vzb373 K 3.7 mEq/L 03/30/2017 Comp Metabolic Xko410 CL 98 mEq/L 03/30/2017 Comp Metabolic Rpz048 CO2 29.0 mEq/L 03/30/2017 Comp Metabolic Qjl766 ANION GAP 14 03/30/2017 Comp Metabolic Nix053 GLUCOSE 100 mg/dL 03/30/2017 Comp Metabolic Pof512 Creat 0.9 mg/dL 03/30/2017 Comp Metabolic Uje656 eGFR 88 ml/min/1.73m2 03/30/2017 Comp Metabolic Nsc393 BUN 22 mg/dL 03/30/2017 Comp Metabolic Ivg500 B/C Ratio 24.4 Ratio 03/30/2017 Comp Metabolic Mmq026 CALCIUM 9.4 mg/dL 03/30/2017 Comp Metabolic Aka131 ALK PHOS 113 U/L 03/30/2017 Comp Metabolic Tov784 AST(SGOT) 16 U/L 03/30/2017 Comp Metabolic Xhp145 ALT(SGPT) 7 U/L 03/30/2017 Comp Metabolic Fjh777 BILI T 0.3 mg/dL 03/30/2017 Comp Metabolic Fwv104 ALBUMIN 3.9 g/dL 03/30/2017 Comp Metabolic Hum276 TPRO 8.0 g/dL 03/30/2017 Comp Metabolic Zvu329 GLOB 4.1 g/dL 03/30/2017 Comp Metabolic Smf360 A/G Ratio 0.9 Ratio 03/30/2017 Comp Metabolic Khf006 Osmo 277 mOsmo 03/30/2017 Lipid Ord30 CHOL 214 mg/dL 03/30/2017 Lipid Ord30 HDL 61.0 mg/dl 03/30/2017 Lipid Ord30 TRIG 130 mg/dL 03/30/2017 Lipid Ord30 LDL 127 mg/dL 03/30/2017 Lipid Ord30 C/HDL 3.5 Ratio 03/30/2017 Dilantin Ord7 DILANTIN 32.5 UG/ML 03/30/2017 Folate Ord36 Folate 16.46 ng/mL 03/30/2017 Tsh Ord6 hTSH II 0.95 uIU/mL 03/30/2017 B12 Gqe016 B12 592.00 pg/ml 03/30/2017 Cbc With Differential [...] 30.9 pg 03/30/2017 Cbc With Differential Ord2 Granite% 23.9 % 03/30/2017 Cbc With Differential Ord2 [...] 0.44 K/ul 03/30/2017 Cbc With Differential Ord2 Granite ABS# 0.3 K/ul 03/30/2017 Cbc With Differential [...] 30.3 pg 08/11/2016 Cbc With Differential Ord2 Granite% 31.7 % 08/11/2016 Cbc With Differential Ord2 [...] 0.59 K/ul 08/11/2016 Cbc With Differential Ord2 Granite ABS# 0.6 K/ul 08/11/2016 Cbc With Differential Ord2 Eos ABS# 0.0 K/ul 08/11/2016 Cbc With Differential Ord2 Baso ABS# 0.0 K/ul 08/11/2016 Dilantin Ord7 DILANTIN 17.2 UG/ML 08/11/2016 Tsh Ord6 hTSH II 0.82 uIU/mL 08/11/2016 Comp Metabolic Fan061 NA 131 mEq/L 08/11/2016 Comp Metabolic Xhx947 K 4.1 mEq/L 08/11/2016 Comp Metabolic Sqp122 CL 93 mEq/L 08/11/2016 Comp Metabolic Muy891 CO2 29.0 mEq/L 08/11/2016 Comp Metabolic Ddg522 ANION GAP 13 08/11/2016 Comp Metabolic Gec637 GLUCOSE 120 mg/dL 08/11/2016 Comp Metabolic Kja147 Creat 0.8 mg/dL 08/11/2016 Comp Metabolic Ebv043 eGFR 101 ml/min/1.73m2 08/11/2016 Comp Metabolic Dzk668 BUN 18 mg/dL 08/11/2016 Comp Metabolic Fzc761 B/C Ratio 22.5 Ratio 08/11/2016 Comp Metabolic Sln627 CALCIUM 9.5 mg/dL 08/11/2016 Comp Metabolic Wky582 ALK PHOS 104 U/L 08/11/2016 Comp Metabolic Naq775 AST(SGOT) 16 U/L 08/11/2016 Comp Metabolic Cqd606 ALT(SGPT) 8 U/L 08/11/2016 Comp Metabolic Llc433 BILI T 0.4 mg/dL 08/11/2016 Comp Metabolic Pzt874 ALBUMIN 3.8 g/dL 08/11/2016 Comp Metabolic Yes774 TPRO 8.4 g/dL 08/11/2016 Comp Metabolic Lre431 GLOB 4.6 g/dL 08/11/2016 Comp Metabolic Ner408 A/G Ratio 0.8 Ratio 08/11/2016 Comp Metabolic Sue267 Osmo 266 mOsmo 08/11/2016 Culture Urine [id number] URINE CULTURE SEE NOTES 04/19/2016 Culture Urine [id number] Continued Results 04/19/2016 Urine Culture Ucult Complete >100,000 col/ml aerobic growth sent to ref lab 04/17/2016 Culture Urine [id number] URINE CULTURE SEE NOTES 02/13/2016 Culture Urine [id number] Continued Results 02/13/2016 Urine Culture Ucult Complete [...] Codes Date URINALYSIS NONAUTO W/O SCOPE CPT-4: 61348 09/14/2018 URINALYSIS NONAUTO W/O SCOPE CPT-4: 04357 08/07/2018 URINALYSIS NONAUTO W/O SCOPE CPT-4: 66123 06/12/2018 URINALYSIS NONAUTO W/O SCOPE CPT-4: 89401 02/16/2018 URINALYSIS NONAUTO W/O SCOPE CPT-4: 06041 11/14/2017 PPPS, SUBSEQ VISIT CPT- 4: G0439 06/07/2017 URINALYSIS NONAUTO W/O SCOPE CPT-4: 78506 05/02/2017 URINALYSIS NONAUTO W/O SCOPE CPT-4: 00005 04/26/2017 PPPS, SUBSEQ VISIT CPT- 4: G0439 06/01/2016 URINALYSIS NONAUTO W/O SCOPE CPT-4: 78888 04/16/2016 URINALYSIS NONAUTO W/O SCOPE CPT-4: 81104 02/10/2016 Vital Signs Date Vital 09/12/2018 Blood Pressure 1: 106/60 Code: 8480-6 BMI: 17.5 Code: 90687-4 Heart Rate 1: 100 bpm Height: 5'5" SpO2: 97% Weight: 105 lbs 08/21/2018 Blood Pressure 1: 96/60 Code: 8480-6 Heart Rate 1: 114 bpm Height: 5'5" SpO2: 98% Weight: 07/20/2018 Blood Pressure 1: 104/60 Code: 8480-6 Heart Rate 1: 122 bpm Height: 5'5" SpO2: 94% Temperature: 36.7 (C) / 98.1 (F) Weight: 07/07/2018 Blood Pressure 1: 110/62 Code: 8480-6 BMI: 18.8 Code: 53999-4 Heart Rate 1: 67 bpm Height: 5'5" Temperature: 36.8 (C) / 98.2 (F) Weight: 113 lbs 05/22/2018 Blood Pressure 1: 112/68 Code: 8480-6 BMI: 18.6 Code: 92101-2 Heart Rate 1: 128 bpm Height: 5'5" SpO2: 98% Weight: 112 lbs 04/04/2018 Blood Pressure 1: 94/52 Code: 8480-6 Heart Rate 1: 120 bpm Height: 5'5" Respiratory Rate: 18 bpm SpO2: 98% Weight: 02/16/2018 Blood Pressure 1: 120/70 Code: 8480-6 BMI: 19.1 Code: 54774-5 Heart Rate 1: 115 bpm Height: 5'5" SpO2: 97% Weight: 115 lbs 12/30/2017 Blood Pressure 1: 100/68 Code: 8480-6 BMI: 18.3 Code: 59040-9 Heart Rate 1: 120 bpm Height: 5'5" SpO2: 94% Weight: 110 lbs 10/13/2017 Blood Pressure 1: 136/78 Code: 8480-6 BMI: 18.1 Code: 12986-0 Heart Rate 1: 126 bpm Height: 5'5" SpO2: 96% Weight: 109 lbs 07/12/2017 Blood Pressure 1: 100/56 Code: 8480-6 BMI: 18.1 Code: 26939-3 Heart Rate 1: 123 bpm Height: 5'5" SpO2: 99% Weight: 109 lbs 06/07/2017 Blood Pressure 1: 98/68 Code: 8480-6 BMI: 18.1 Code: 43484- 5 Heart Rate 1: 120 bpm Height: 5'5" SpO2: 99% Waist Measure (cm): 80 cm Weight: 109 lbs 05/24/2017 Blood Pressure 1: 104/62 Code: 8480-6 BMI: 18.1 Code: 14101-2 Heart Rate 1: 121 bpm Height: 5'5" SpO2: 97% Weight: 109 lbs 04/27/2017 Blood Pressure 1: 132/84 Code: 8480-6 BMI: 17.8 Code: 68181-8 Heart Rate 1: 129 bpm Height: 5'5" SpO2: 99% Weight: 107 lbs 04/13/2017 Blood Pressure 1: 100/66 Code: 8480-6 Heart Rate 1: 120 bpm Height: 5'5" SpO2: 99% Weight: 03/30/2017 Blood Pressure 1: 112/66 Code: 8480-6 BMI: 17.8 Code: 51823-8 Heart Rate 1: 112 bpm Height: 5'5" SpO2: 98% Weight: 107 lbs 03/02/2017 Blood Pressure 1: 128/78 Code: 8480-6 BMI: 18.1 Code: 91083-7 Heart Rate 1: 86 bpm Height: 5'5" SpO2: 95% Weight: 109 lbs 08/30/2016 Blood Pressure 1: 102/60 Code: 8480-6 BMI: 18.1 Code: 24763-0 Heart Rate 1: 135 bpm Height: 5'5" SpO2: 98% Weight: 109 lbs 08/11/2016 Blood Pressure 1: 100/66 Code: 8480-6 BMI: 18.6 Code: 19327-3 Heart Rate 1: 86 bpm Height: 5'5" SpO2: 94% Weight: 112 lbs 06/01/2016 Blood Pressure 1: 126/80 Code: 8480-6 BMI: 19.0 Code: 07811-3 Heart Rate 1: 100 bpm Height: 5'5" SpO2: 98% Waist Measure (cm): 64 cm Weight: 114 lbs 04/16/2016 Blood Pressure 1: 124/80 Code: 8480-6 Heart Rate 1: 110 bpm SpO2: 97% 02/10/2016 Blood Pressure 1: 102/64 Code: 8480-6 BMI: 18.3 Code: 86704-3 Heart Rate 1: 114 bpm Height: 5'5" [...] Present Encounters Encounter Performer Location Codes Date ( [id number] EST. PATIENT, LEVEL III Diagnosis: Other epilepsy, not intractable, without status epilepticus[ICD10: G40.802] Diagnosis: Muscle weakness (generalized)[ICD10: M62.81] Magali Zepeda MD, [facility] CPT-4: 24863 09/12/2018 ([id number]) 95152 EST. PATIENT, LEVEL IV Diagnosis: Unsteadiness on feet[ICD10: R26.81] Diagnosis: Other epilepsy, not intractable, without status epilepticus[ICD10: G40.802] Diagnosis: Muscle weakness (generalized)[ICD10: M62.81] Magali Zepeda MD, [facility] CPT-4: 50813 08/21/2018 ([id number]) 93066 EST. PATIENT, LEVEL III Diagnosis: Cough[ICD10: R05] Diagnosis: Other epilepsy, not intractable, without status epilepticus[ICD10: G40.802] Mishel Zepeda MD, [facility] CPT-4: 50230 07/20/2018 ([id number]) 18712 EST. PATIENT, LEVEL III Diagnosis: Cough[ICD10: R05] Diagnosis: Acute upper respiratory infection, unspecified[ICD10: J06.9] Mishel Zepeda MD, [facility] CPT-4: 68804 07/07/[id number]) 91441 EST. PATIENT, LEVEL IV Diagnosis: Unsteadiness on feet[ICD10: R26.81] Diagnosis: Other abnormalities of gait and mobility[ICD10: R26.89] Diagnosis: Mixed incontinence[ICD10: N39.46] Diagnosis: Other epilepsy, not intractable, without status epilepticus[ICD10: G40.802] Magali Zepeda MD, [facility] CPT-4: 02274 05/22/2018 ([id number]) 41306 EST. PATIENT, LEVEL III Diagnosis: Right upper quadrant abdominal rigidity[ICD10: R19.31] Diagnosis: Functional diarrhea[ICD10: K59.1] Diagnosis: Calculus of gallbladder without cholecystitis without obstruction[ICD10: K80.20] Magali Zepeda MD, [facility] CPT-4: 51022 04/04/2018 ([id number]) 88742 EST. PATIENT, LEVEL IV Diagnosis: Other epilepsy, not intractable, without status epilepticus[ICD10: G40.802] Diagnosis: Slow transit constipation[ICD10: K59.01] Diagnosis: Dysuria[ICD10: R30.0] Diagnosis: Age-related osteoporosis without current pathological fracture[ICD10: M81.0] Magali Zepeda MD, [facility] CPT-4: 41961 02/16/2018 ([id number]) 84207 EST. PATIENT, LEVEL III Diagnosis: Slow transit constipation[ICD10: K59.01] Mishel Zepeda MD, [facility] CPT-4: 53447 12/30/2017 ([id number]) 83231 EST. PATIENT, LEVEL IV Diagnosis: Other epilepsy, not intractable, without status epilepticus[ICD10: G40.802] Diagnosis: Slow transit constipation[ICD10: K59.01] Magali Zepeda MD, [facility] CPT-4: 19835 10/13/2017 ([id number]) 38398 EST. PATIENT, LEVEL III Diagnosis: Other epilepsy, not intractable, without status epilepticus[ICD10: G40.802] Diagnosis: Dysuria[ICD10: R30.0] Diagnosis: Mixed incontinence[ICD10: N39.46] Magali Zpeeda MD, [facility] CPT- 4: 45273 07/12/2017 ([id number]) 50119 EST. 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 PATIENT, LEVEL III Diagnosis: Other epilepsy, not intractable, without status epilepticus[ICD10: G40.802] Magali Zepeda MD, [facility] CPT-4: 57898 04/27/2017 ([id number]) 35333 EST. 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 PATIENT, LEVEL IV Diagnosis: Calculus of gallbladder without cholecystitis without obstruction[ICD10: K80.20] Diagnosis: Benign paroxysmal vertigo, bilateral[ICD10: H81.13] Diagnosis: Slow transit constipation[ICD10: K59.01] Magali Zepeda MD, [facility] CPT-4: 49649 03/02/2017 ([id number]) 64294 EST. 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 PATIENT, LEVEL IV Diagnosis: Other epilepsy, not intractable, without status epilepticus[ICD10: G40.802] Diagnosis: Low back pain[ICD10: M54.5] Diagnosis: Pressure ulcer of sacral region, stage 1[ICD10: L89.151] Windy Zepeda MD, [facility] CPT-4: 27649 08/11/2016 ([id number]) 28155 EST. PATIENT, LEVEL III Diagnosis: Urinary tract infection, site not specified[ICD10: N39.0] Diagnosis: Slow transit constipation[ICD10: K59.01] [facility] CPT-4: 32674 04/16/2016 ([id number]) OFFICE VISIT, NEW - LEVEL 4 Diagnosis: Other abnormalities of gait and mobility[ICD10: R26.89] Diagnosis: Dysuria[ICD10: R30.0] Diagnosis: Rheumatoid arthritis without rheumatoid factor, multiple sites[ICD10: M06.09] [facility] CPT-4: 18735 02/10/2016 Plan of Care Planned Activity Notes Codes Status Date Patient Education: Patient Medication Summary Completed 09/14/2018 Care Plan: C URINE RT Pending 09/14/2018 Visit Plan: Seizure disorder - check dilantin level - no change in current medications. Monitor symptoms. Generalized malaise - check urinalysis. 09/12/2018 Appointment: Mag[facility] Zepeda [facility]el[facility] [phone] [facility] [place] [place] (15 min) Moderate 09/12/2018 Patient Education: [...] while seated. 08/21/2018 Appointment: Magali Zepeda WPtel: [facility] [place] [place] (15 min) Moderate 08/21/2018 Patient Education: Patient Medication Summary Completed 08/21/2018 Appointment: Lab Draw 08/07/2018 Patient Education: Patient Medication Summary Completed 08/07/2018 Patient Education: Patient Medication Summary Completed 08/03/2018 Visit Plan: Seizures -increase dilantin -repeat dilantin level in 1 week [id number] cefdinir-finish abx and let us know if your symptoms do not resolve or if any worse 07/20/2018 Appointment: Mishel Wilson WPtel: [phone] [place] (15 min) Moderate 07/20/2018 Patient Education: Patient Medication Summary Completed 07/20/2018 Visit Plan: URI -viral- Pt advised to increase fluids, vitamin C. Discussed natural and expected course of this diagnosis and need to alert me if symptoms do not follow expected course, or if any worse. RX sent to patient's pharmacy to start if needed. 07/07/2018 Appointment: Mishel Wilson WPtel: [facility]5 [phone] [place] (30 min) Complex 07/07/2018 Patient Education: Patient Medication Summary Completed 07/07/2018 Appointment: Magali Zepeda WPtel: [phone] [facility] [place] (15 min) Moderate 07/03/2018 Appointment: [...] the house. 05/22/2018 Appointment: Magali Zepeda WPtel: [facility] [place] (15 min) Moderate 05/22/2018 Patient Education: Patient Medication Summary Completed 05/22/2018 Appointment: Magali Zepeda WPtel: [facility]5 [facility] [place] (15 min) Moderate 05/15/2018 Visit [...] oversight post-operatively. 04/04/2018 Appointment: Magali Zepeda WPtel: [phone] [facility] (15 min) Moderate 04/04/2018 Patient Education: Patient Medication Summary Completed 04/04/2018 Patient Education: Diarrhea Completed 04/04/2018 Visit Plan: Epilepsy - chronic - continue with current regimen - check labs. Osteoporosis - pt is currently getting Prolia in [place], this is a big burden for her - They have asked for her to be set up for prolia for at the end of may at [address]- to call with specific date. Dysuria - UA - +leukocytes - start on keflex - rx sent to pharmacy. Chronic constipation - monitor symptoms. Continue with supportive care. 02/16/2018 Appointment: Magali Zepeda WPtel: [phone] [facility] (15 min) Moderate 02/16/2018 Patient Education: [...] regimen. 12/30/2017 Appointment: Mishel Wilson WPtel: [phone] [phone] [place] (30 min) Complex 12/30/2017 Patient [...] regimen. 10/13/2017 Appointment: Mag[facility] Zepeda [facility]: [phone] [place] [place] (15 min) Moderate 10/13/2017 Patient Education: Patient Medication Summary Completed 10/13/2017 Appointment: Mag[facility] Zepeda [facility]el: [phone] [place] (15 min) Moderate 10/06/2017 Appointment: Lab [...] accident 07/12/2017 Appointment: Magali Zepeda [facility]Ptel: [phone] [place] (15 min) Moderate 07/12/2017 Patient Education: Patient Medication Summary Completed 07/12/2017 Appointment: Magali Zepeda [facility]Ptel: [phone] [place] (15 min) Moderate 07/05/2017 Visit Plan: [...] care surrogate. 06/07/2017 Appointment: Windy Greco WPtel[facility] [facility] - Annual Well[facility] [...] [facility] (15 min) Moderate 05/24/2017 Patient Education: Patient Medication Summary Completed 05/24/2017 Appointment: Magali Zepeda WPtel: [facility] (15 min) Moderate 05/11/2017 Visit Plan: UTI [...] week) 04/27/2017 Appointment: Magali Zepeda WPtel: [phone] [facility] [place] (15 min) Moderate 04/27/2017 Patient Education: [...] symptoms. 04/13/2017 Appointment: Magali Zepeda WPtel: [phone] [facility] [place] (15 min) Moderate 04/13/2017 Patient Education: [...] strategy. 03/30/2017 Appointment: Mag[facility] Zepeda [facility]el: [phone] [place] (15 min) Moderate 03/30/2017 Patient Education: [...] constipation. 03/02/2017 Appointment: Magali Zepeda WPtel: [phone] [facility] (30 min) Complex 03/02/2017 Patient Education: Patient Medication Summary Completed 03/02/2017 Visit Plan: RA and Gait abnormality -continue with current treatments - supportive care Suspect some of her movement abnormalities may be due to her lamotrigine. 08/30/2016 Appointment: Magali Zepeda WPtel: [phone] [facility] (30 min) Complex 08/30/2016 Patient Education: [...] discharge. 08/11/2016 App[facility]ment[phone] ([facility] min) Complex 08/11/2016 Patient Education: [...] care surrogate. 06/01/2016 Appointment: Angus Windy WPtel: [facility] [facility] - Annual Wellness [...] Mishel Wilson WPtel: [facility]5 [phone] (15 min) Moderate 04/16/2016 Patient Education: Patient Medication Summary Completed 04/16/2016 Visit Plan: RA and Gait abnormality - recommended pt to have referral to physical therapy at [facility]. Suspect some of her movement abnormalities may be due to her lamotrigine. 02/10/2016 Appointment: Magali Zepeda WPtel: [address] [place], [place] [phone] New Patient 02/10/2016 Patient Education: Patient Medication [...] - pt is currently getting Prolia in [place], this is a big burden for her [...] dilantin -repeat dilantin level in 1 week [id number] cefdinir-finish abx and let us know if [...] RECOMMEND PROBIOTIC-ANY BRAND IS FINE: [employer], ALIGN sign release for labs from DR [...]
--- OUTSIDE RECORDS SUMMARY | 2018-12-30 22:33 | XMS REPORT | CCD ---
Author Author [facility] Organization [facility] Address [address] [place] [address] Phone Care Team Providers Care Traveler Changer Name Role Phone PP Unavailable CCM Unavailable Summary Purpose Interface Exchange Insurance Providers Payer name Policy type / Coverage type Covered democrat ID Effective Begin Date Effective End Date WPS Medicare Part B Medicare Part B [id number] Unknown [employer] Medicare Part B [id number] Unknown Family history Sister Diagnosis Age At [...] Unknown Retired 02/10/[address]: 172433042 Never smoker 02/10/[address]: 449660028 Never drinks alcohol 02/10/2016 Has the patient ever used illegal drugs? Unknown Has never used illegal drugs 02/10/2016 Allergies, Adverse Reactions, Alerts Substance Reaction Codes Entered Date Inactivated Date Status * NO KNOWN DRUG ALLERGIES Unknown 02/10/2016 No Inactive Date Active Past Medical History Illness Codes Condition Status Onset Date Resolved Date Essential (primary) hypertension ICD-9: 401.1 ICD-10: I10 Active 08/30/2016 Unknown Muscle weakness (generalized) ICD-9: 728.87 ICD-10: M62.81 Active 08/21/2018 Unknown Other epilepsy, not intractable, without status epilepticus ICD-9: 345.10 ICD-10: G40.802 Active 08/11/2016 Unknown Unsteadiness on feet ICD- 9: 781.2 ICD-10: R26.81 Active 04/13/2017 Unknown Dysuria ICD-9: 788.1 ICD-10: R30.0 Active [...] Problems Condition Codes Effective Dates Condition Status Essential (primary) hypertension ICD-9: 401.1 ICD-10: I10 08/30/2016 Active Muscle weakness (generalized) ICD-9: 728.87 ICD-10: M62.81 08/21/2018 Active Other epilepsy, not intractable, without status epilepticus ICD-9: 345.10 ICD-10: G40.802 08/11/2016 Active Unsteadiness on feet ICD- 9: 781.2 ICD-10: R26.81 04/13/2017 Active Dysuria ICD-9: 788.1 ICD-10: R30.0 02/09/2016 [...] Instructions doxycycline hyclate 100 mg tablet RxNorm: 9002001 1 Tablet(s) PO BID 08/16/2018 08/15/2018 Inactive dc keflex doxycycline hyclate 100 mg tablet RxNorm: 4530477 1 Tablet(s) PO BID 08/16/2018 08/25/2018 Inactive dc keflex lamotrigine 150 mg tablet RxNorm: 241752 TAKE 1 TABLET BY MOUTH AT BEDTIME 08/14/2018 No Stop Date Active Keflex 500 mg capsule RxNorm: 607965 1 Capsule(s) PO TID and probiotic bid x7 08/14/2018 08/15/2018 Inactive Keflex 500 mg capsule RxNorm: 621745 1 Capsule(s) PO TID and probiotic bid x7 08/14/2018 08/13/2018 Inactive Zithromax Z-Escobar 250 mg tablet RxNorm: 278775 2 po on first dose and 1 daily Tablet(s) PO 07/27/2018 08/20/2018 Inactive zpack x 1 Mucinex 600 mg tablet, extended release RxNorm: 180419 1 Tablet(s) PO BID 07/27/2018 07/26/2018 Inactive Mucinex 600 mg tablet, extended release RxNorm: 431681 1 Tablet(s) PO BID 07/27/2018 08/09/2018 Inactive Dilantin Extended 100 mg capsule RxNorm: 980908 Capsule(s) TAKE 1 CAP TID ON Mon/Thurs AND 1 CAPSULE QID other days. if having symptoms of seizure activity, take an extra pill 07/20/2018 No Stop Date Active amoxicillin 500 mg tablet RxNorm: 589653 1 Tablet(s) PO TID 07/07/2018 07/13/2018 Inactive lamotrigine 100 mg tablet RxNorm: 951762 TAKE 1 TABLET BY MOUTH IN THE MORNING 07/03/2018 No Stop Date Active Keflex 500 mg capsule RxNorm: 641656 1 Capsule(s) PO QID 06/12/2018 06/18/2018 Inactive please call patient to let her know she needs to [facility] rx for antibiotic Dilantin Extended 100 mg capsule RxNorm: 927634 Capsule(s) TAKE 1 CAP TID ON AND 1 CAPSULE QID ON /TUE. if having symptoms of seizure activity, take an extra pill 05/29/2018 07/19/2018 Inactive Dilantin Extended 100 mg capsule RxNorm: 767799 Capsule(s) TAKE 1 CAP TID x2 DAYS, THEN 1 CAPSULE qid x2 DAYs, THEN REPEAT CYCLE. if having symptoms of seizure activity, take an extra pill 05/22/2018 05/28/2018 Inactive lamotrigine 150 mg tablet RxNorm: 897174 TAKE 1 TABLET BY MOUTH AT BEDTIME 04/17/2018 08/13/2018 Inactive Dilantin Extended 100 mg capsule RxNorm: 025682 TAKE 1 CAPSULE BY MOUTH THREE TIMES DAILY FOR 3 DAYS, THEN 1 CAPSULE FOUR TIMES DAILY FOR 1 DAY, THEN REPEAT CYCLE. 04/12/2018 05/21/2018 Inactive lamotrigine 100 mg tablet RxNorm: 386861 TAKE 1 TABLET BY MOUTH IN THE MORNING 03/31/2018 07/02/2018 Inactive dicyclomine 10 mg capsule RxNorm: 469886 TAKE ONE CAPSULE BY MOUTH TWICE DAILY NEEDED 02/20/2018 No Stop Date Active Penlac 8 % topical solution RxNorm: 357339 1 Application TOP daily clean off every 7 days and restart application process 02/16/2018 09/13/2018 Active ok to dispense generic Keflex 500 mg capsule RxNorm: 715504 1 Capsule(s) PO QID 02/16/2018 02/22/2018 Inactive please call patient to let her know she needs to [facility] rx for antibiotic Dilantin Extended 100 mg capsule RxNorm: 538822 Capsule(s) PO UD 1 cap TID x 3 days then 1 cap qid x 1 day then repeat cycle 12/15/2017 04/11/2018 Inactive give 1 month supply lamotrigine 150 mg tablet RxNorm: 134812 1 Tablet(s) PO QHS 12/07/2017 04/05/2018 Inactive lamotrigine 100 mg tablet RxNorm: 805271 1 Tablet(s) PO QAM 12/07/2017 03/30/2018 Inactive Levaquin 500 mg tablet RxNorm: 408949 1 Tablet(s) PO daily 12/05/2017 12/11/2017 Inactive Keflex 500 mg capsule RxNorm: 371571 1 Capsule(s) PO TID 11/14/2017 11/20/2017 Inactive Keflex 500 mg capsule RxNorm: 134299 1 Capsule(s) PO TID 11/14/2017 11/13/2017 Inactive Dilantin Extended 100 mg capsule RxNorm: 239622 Capsule(s) PO UD m3pill/tue3 pill/wed 4 pill/ thur 2pill/fri 3pill/sat 4pill/sun 3 pill 10/13/2017 12/14/2017 Inactive Dilantin Extended 100 mg capsule RxNorm: 757728 Capsule(s) PO UD -Alternate 300 mg for two days in a row and then 400 mg for one day and repeat cycle 10/04/2017 10/12/2017 Inactive Augmentin 500 mg-125 mg tablet RxNorm: 967768 1 Tablet(s) PO TID 07/15/2017 07/14/2017 Inactive Augmentin 500 mg-125 mg tablet RxNorm: 236334 1 Tablet(s) PO TID 07/15/2017 07/21/2017 Inactive Dilantin Extended 100 mg capsule RxNorm: 192887 1 Capsule(s) PO daily -Alternate 300 mg and 400 mg every other day 06/07/2017 10/03/2017 Inactive Bactrim DS 800 mg-160 mg tablet RxNorm: 113060 1 Tablet(s) PO BID 05/02/2017 05/08/2017 Inactive Dilantin Extended 100 mg capsule RxNorm: 763070 1 Capsule(s) PO daily in the afternoon and 2 Capsules PO HS- Will take an additional pill if she has a lot of jerking 04/27/2017 06/06/2017 Inactive Keflex 500 mg capsule RxNorm: 330082 1 Capsule(s) PO TID 04/19/2017 04/23/2017 Inactive dicyclomine 10 mg capsule RxNorm: 549443 1 Capsule(s) PO BID as needed 03/30/2017 05/28/2017 Inactive Senna with Docusate Sodium 8.6 mg-50 mg tablet RxNorm: 201042 1 Tablet(s) PO BID as needed constipation 03/02/2017 07/29/2017 Inactive Keflex 500 mg capsule RxNorm: 796228 1 Capsule(s) PO TID 08/11/2016 08/20/2016 Inactive Levaquin 500 mg tablet RxNorm: 501339 1 Tablet(s) PO daily 04/16/2016 04/22/2016 Inactive ciprofloxacin 500 mg tablet RxNorm: 058423 1 Tablet(s) PO BID 02/10/2016 02/16/2016 Inactive prednisone 10 mg tablet RxNorm: 091112 1 Tablet(s) PO as needed for pain No Start Date Active Prolia 60 mg/mL subcutaneous syringe RxNorm: 708142 1 injection SQ Q6 months No Start Date Active lamotrigine 150 mg tablet RxNorm: 771031 1 Tablet(s) PO QHS No Start Date 12/06/2017 Inactive lamotrigine 100 mg tablet RxNorm: 948468 1 Tablet(s) PO QAM No Start Date 12/06/2017 Inactive Dilantin Extended 100 mg capsule RxNorm: 974213 Capsule(s) PO TAKES FOUR CAPSULES FOR 2 DAYS, THEN THREE CAPSULES FOR 1 DAY, THEN REPEATS No Start Date 04/26/2017 Inactive Zithromax Z-Escobar 250 mg tablet RxNorm: 636695 2 po on first dose and 1 daily Tablet(s) PO No Start Date 07/26/2018 Inactive zpack x 1 Humira 20 mg/0.4 mL subcutaneous syringe kit RxNorm: 575481 1 injection SQ every 2 weeks- Prescribed by Dr. Baker No Start Date 05/23/2017 Inactive Medication Administered No Medication Administered data Immunizations No Immunization data Assessments Condition Codes Effective Dates Other epilepsy, not intractable, without status epilepticus ICD- 10: G40.802 ICD-9: 345.10 09/12/2018 Muscle weakness (generalized) ICD-10: M62.81 ICD-9: 728.87 09/12/2018 Unsteadiness on feet ICD-10: R26.81 ICD-9: 781.2 08/21/2018 Dysuria ICD-10: R30.0 ICD-9: 788.1 08/07/2018 Generalized idiopathic epilepsy and epileptic syndromes, not [...] Ord7 DILANTIN 10.5 UG/ML 05/11/2018 Comp Metabolic Ngb657 NA 138 mEq/L 05/11/2018 Comp Metabolic Msg049 K 4.0 mEq/L 05/11/2018 Comp Metabolic Kkt210 CL 100 mEq/L 05/11/2018 Comp Metabolic Hin606 CO2 29.0 mEq/L 05/11/2018 Comp Metabolic Fxh868 ANION GAP 13 05/11/2018 Comp Metabolic Siy837 GLUCOSE 84 mg/dL 05/11/2018 Comp Metabolic Gvo893 Creat 0.8 mg/dL 05/11/2018 Comp Metabolic Qno633 eGFR 77 ml/min/1.73m2 05/11/2018 Comp Metabolic Mpr998 BUN 26 mg/dL 05/11/2018 Comp Metabolic Mrw700 B/C Ratio 33.3 Ratio 05/11/2018 Comp Metabolic Nou423 CALCIUM 9.1 mg/dL 05/11/2018 Comp Metabolic Zwh427 ALK PHOS 97 U/L 05/11/2018 Comp Metabolic Njp258 AST(SGOT) 14 U/L 05/11/2018 Comp Metabolic Zms070 ALT(SGPT) 7 U/L 05/11/2018 Comp Metabolic Zfg879 BILI T 0.3 mg/dL 05/11/2018 Comp Metabolic Ucb621 ALBUMIN 3.6 g/dL 05/11/2018 Comp Metabolic Kvq981 TPRO 6.9 g/dL 05/11/2018 Comp Metabolic Pmn070 GLOB 3.3 g/dL 05/11/2018 Comp Metabolic Ipn753 A/G Ratio 1.1 Ratio 05/11/2018 Comp Metabolic Epv986 Osmo 280 mOsmo 05/11/2018 Dilantin Ord7 DILANTIN 10.7 UG/ML 04/25/2018 Valproic Acid Gpv449 VALPROIC <10 ug/ml 04/24/2018 Dilantin Ord7 DILANTIN 10.6 UG/ML 04/11/2018 Culture Urine [id number] URINE CULTURE SEE NOTES 02/20/2018 Culture Urine [id number] Continued Results 02/20/2018 Urine Culture Ucult Complete >100,000 col/ml aerobic growth sent to ref lab 02/17/2018 Dilantin Ord7 DILANTIN 14.4 UG/ML 02/16/2018 Comp Metabolic Ywt977 NA 135 mEq/L 02/16/2018 Comp Metabolic Bni598 K 3.8 mEq/L 02/16/2018 Comp Metabolic Rdn924 CL 99 mEq/L 02/16/2018 Comp Metabolic Wha731 CO2 28.0 mEq/L 02/16/2018 Comp Metabolic Mgr574 ANION GAP 12 02/16/2018 Comp Metabolic Brd782 GLUCOSE 101 mg/dL 02/16/2018 Comp Metabolic Zej677 Creat 0.8 mg/dL 02/16/2018 Comp Metabolic Zqu081 eGFR 75 ml/min/1.73m2 02/16/2018 Comp Metabolic Ykn401 BUN 20 mg/dL 02/16/2018 Comp Metabolic Zre705 B/C Ratio 25.0 Ratio 02/16/2018 Comp Metabolic Mdf311 CALCIUM 8.9 mg/dL 02/16/2018 Comp Metabolic Cus010 ALK PHOS 95 U/L 02/16/2018 Comp Metabolic Uav742 AST(SGOT) 13 U/L 02/16/2018 Comp Metabolic Dkv537 ALT(SGPT) 7 U/L 02/16/2018 Comp Metabolic Npo386 BILI T 0.4 mg/dL 02/16/2018 Comp Metabolic Nwc200 ALBUMIN 3.6 g/dL 02/16/2018 Comp Metabolic Bzj137 TPRO 7.2 g/dL 02/16/2018 Comp Metabolic Jnm057 GLOB 3.6 g/dL 02/16/2018 Comp Metabolic Fxa143 A/G Ratio 1.0 Ratio 02/16/2018 Comp Metabolic Qlt022 Osmo 273 mOsmo 02/16/2018 Urine Culture Ucult Complete >100,000 col/ml aerobic growth sent to ref lab 11/15/2017 Comp Metabolic Obx348 NA 136 mEq/L 10/13/2017 Comp Metabolic Ngp497 K 4.0 mEq/L 10/13/2017 Comp Metabolic Fvt853 CL 98 mEq/L 10/13/2017 Comp Metabolic Ixi491 CO2 28.0 mEq/L 10/13/2017 Comp Metabolic Nyj211 ANION GAP 14 10/13/2017 Comp Metabolic Mns081 GLUCOSE 94 mg/dL 10/13/2017 Comp Metabolic Zbd923 Creat 0.7 mg/dL 10/13/2017 Comp Metabolic Mzo370 eGFR 82 ml/min/1.73m2 10/13/2017 Comp Metabolic Lbg284 BUN 26 mg/dL 10/13/2017 Comp Metabolic Aiq599 B/C Ratio 35.1 Ratio 10/13/2017 Comp Metabolic Hxs657 CALCIUM 9.1 mg/dL 10/13/2017 Comp Metabolic Efl311 ALK PHOS 98 U/L 10/13/2017 Comp Metabolic Wft449 AST(SGOT) 15 U/L 10/13/2017 Comp Metabolic Boj680 ALT(SGPT) 8 U/L 10/13/2017 Comp Metabolic Zeo963 BILI T 0.4 mg/dL 10/13/2017 Comp Metabolic Zkh513 ALBUMIN 3.7 g/dL 10/13/2017 Comp Metabolic Fbd177 TPRO 7.8 g/dL 10/13/2017 Comp Metabolic Rmj348 GLOB 4.1 g/dL 10/13/2017 Comp Metabolic Cen084 A/G Ratio 0.9 Ratio 10/13/2017 Comp Metabolic Foj567 Osmo 276 mOsmo 10/13/2017 Dilantin Ord7 DILANTIN 21.4 Result Verified By Repeat Analysis UG/ML 10/13/2017 Dilantin Ord7 DILANTIN 24.1 Result Verified By Repeat Analysis UG/ML 10/03/2017 Dilantin Ord7 DILANTIN 18.1 UG/ML 06/30/2017 Dilantin Ord7 DILANTIN 22.7 UG/ML 06/16/2017 Dilantin Ord7 DILANTIN 26.1 UG/ML 06/07/2017 Dilantin Ord7 DILANTIN 24.1 UG/ML 05/24/2017 Dilantin Ord7 DILANTIN 19.6 UG/ML 05/11/2017 Culture Urine [id number] URINE CULTURE SEE NOTES 05/06/2017 Culture Urine [id number] Continued Results 05/06/2017 Urine Culture Ucult Complete >100,000 col/ml aerobic growth sent to ref lab 05/03/2017 Dilantin Ord7 DILANTIN 12.6 UG/ML 04/27/2017 Calcium Ord79 CALCIUM 9.3 mg/dL 04/19/2017 Dilantin Ord7 DILANTIN 21.6 UG/ML 04/19/2017 Dilantin Ord7 DILANTIN 10.3 UG/ML 04/13/2017 Dilantin Ord7 DILANTIN 21.9 UG/ML 04/07/2017 Comp Metabolic Llp149 NA 137 mEq/L 03/30/2017 Comp Metabolic Knz302 K 3.7 mEq/L 03/30/2017 Comp Metabolic Gyh945 CL 98 mEq/L 03/30/2017 Comp Metabolic Eik517 CO2 29.0 mEq/L 03/30/2017 Comp Metabolic Jdd684 ANION GAP 14 03/30/2017 Comp Metabolic Xan582 GLUCOSE 100 mg/dL 03/30/2017 Comp Metabolic Ysi583 Creat 0.9 mg/dL 03/30/2017 Comp Metabolic Mas622 eGFR 88 ml/min/1.73m2 03/30/2017 Comp Metabolic Diq607 BUN 22 mg/dL 03/30/2017 Comp Metabolic Syu738 B/C Ratio 24.4 Ratio 03/30/2017 Comp Metabolic Myo327 CALCIUM 9.4 mg/dL 03/30/2017 Comp Metabolic Hwa126 ALK PHOS 113 U/L 03/30/2017 Comp Metabolic Lac528 AST(SGOT) 16 U/L 03/30/2017 Comp Metabolic Sae348 ALT(SGPT) 7 U/L 03/30/2017 Comp Metabolic Zud884 BILI T 0.3 mg/dL 03/30/2017 Comp Metabolic Xgm938 ALBUMIN 3.9 g/dL 03/30/2017 Comp Metabolic Mrl744 TPRO 8.0 g/dL 03/30/2017 Comp Metabolic Sew787 GLOB 4.1 g/dL 03/30/2017 Comp Metabolic Vjq805 A/G Ratio 0.9 Ratio 03/30/2017 Comp Metabolic Mti838 Osmo 277 mOsmo 03/30/2017 Lipid Ord30 CHOL 214 mg/dL 03/30/2017 Lipid Ord30 HDL 61.0 mg/dl 03/30/2017 Lipid Ord30 TRIG 130 mg/dL 03/30/2017 Lipid Ord30 LDL 127 mg/dL 03/30/2017 Lipid Ord30 C/HDL 3.5 Ratio 03/30/2017 Dilantin Ord7 DILANTIN 32.5 UG/ML 03/30/2017 Folate Ord36 Folate 16.46 ng/mL 03/30/2017 Tsh Ord6 hTSH II 0.95 uIU/mL 03/30/2017 B12 Xjn792 B12 592.00 pg/ml 03/30/2017 Cbc With Differential [...] 30.9 pg 03/30/2017 Cbc With Differential Ord2 [place]% 23.9 % 03/30/2017 Cbc With Differential Ord2 [...] 0.44 K/ul 03/30/2017 Cbc With Differential Ord2 [place] ABS# 0.3 K/ul 03/30/2017 Cbc With Differential [...] 30.3 pg 08/11/2016 Cbc With Differential Ord2 [place]% 31.7 % 08/11/2016 Cbc With Differential Ord2 [...] 0.59 K/ul 08/11/2016 Cbc With Differential Ord2 [place] ABS# 0.6 K/ul 08/11/2016 Cbc With Differential Ord2 Eos ABS# 0.0 K/ul 08/11/2016 Cbc With Differential Ord2 Baso ABS# 0.0 K/ul 08/11/2016 Dilantin Ord7 DILANTIN 17.2 UG/ML 08/11/2016 Tsh Ord6 hTSH II 0.82 uIU/mL 08/11/2016 Comp Metabolic Kbs595 NA 131 mEq/L 08/11/2016 Comp Metabolic Imk405 K 4.1 mEq/L 08/11/2016 Comp Metabolic Ywq030 CL 93 mEq/L 08/11/2016 Comp Metabolic Udc801 CO2 29.0 mEq/L 08/11/2016 Comp Metabolic Azf525 ANION GAP 13 08/11/2016 Comp Metabolic Led246 GLUCOSE 120 mg/dL 08/11/2016 Comp Metabolic Skl075 Creat 0.8 mg/dL 08/11/2016 Comp Metabolic Uya419 eGFR 101 ml/min/1.73m2 08/11/2016 Comp Metabolic Bpe944 BUN 18 mg/dL 08/11/2016 Comp Metabolic Grh082 B/C Ratio 22.5 Ratio 08/11/2016 Comp Metabolic Qor035 CALCIUM 9.5 mg/dL 08/11/2016 Comp Metabolic Iko704 ALK PHOS 104 U/L 08/11/2016 Comp Metabolic Xgy572 AST(SGOT) 16 U/L 08/11/2016 Comp Metabolic Kja516 ALT(SGPT) 8 U/L 08/11/2016 Comp Metabolic Boi518 BILI T 0.4 mg/dL 08/11/2016 Comp Metabolic Bjp872 ALBUMIN 3.8 g/dL 08/11/2016 Comp Metabolic Hbs299 TPRO 8.4 g/dL 08/11/2016 Comp Metabolic Tld889 GLOB 4.6 g/dL 08/11/2016 Comp Metabolic Tjx785 A/G Ratio 0.8 Ratio 08/11/2016 Comp Metabolic Iha648 Osmo 266 mOsmo 08/11/2016 Culture Urine [id number] URINE CULTURE SEE NOTES 04/19/2016 Culture Urine [id number] Continued Results 04/19/2016 Urine Culture Ucult Complete >100,000 col/ml aerobic growth sent to ref lab 04/17/2016 Culture Urine [id number] URINE CULTURE SEE NOTES 02/13/2016 Culture Urine [id number] Continued Results 02/13/2016 Urine Culture Ucult Complete [...] Codes Date URINALYSIS NONAUTO W/O SCOPE CPT-4: 34037 08/07/2018 URINALYSIS NONAUTO W/O SCOPE CPT-4: 23690 06/12/2018 URINALYSIS NONAUTO W/O SCOPE CPT-4: 00333 02/16/2018 URINALYSIS NONAUTO W/O SCOPE CPT-4: 26888 11/14/2017 PPPS, SUBSEQ VISIT CPT- 4: G0439 06/07/2017 URINALYSIS NONAUTO W/O SCOPE CPT-4: 06038 05/02/2017 URINALYSIS NONAUTO W/O SCOPE CPT-4: 75103 04/26/2017 PPPS, SUBSEQ VISIT CPT- 4: G0439 06/01/2016 URINALYSIS NONAUTO W/O SCOPE CPT-4: 32243 04/16/2016 URINALYSIS NONAUTO W/O SCOPE CPT-4: 74648 02/10/2016 Vital Signs Date Vital 09/12/2018 Blood Pressure 1: 106/60 Code: 8480-6 BMI: 17.5 Code: 24675-0 Heart Rate 1: 100 bpm Height: 5'5" SpO2: 97% Weight: 105 lbs 08/21/2018 Blood Pressure 1: 96/60 Code: 8480-6 Heart Rate 1: 114 bpm Height: 5'5" SpO2: 98% Weight: 07/20/2018 Blood Pressure 1: 104/60 Code: 8480-6 Heart Rate 1: 122 bpm Height: 5'5" SpO2: 94% Temperature: 36.7 (C) / 98.1 (F) Weight: 07/07/2018 Blood Pressure 1: 110/62 Code: 8480-6 BMI: 18.8 Code: 23894-9 Heart Rate 1: 67 bpm Height: 5'5" Temperature: 36.8 (C) / 98.2 (F) Weight: 113 lbs 05/22/2018 Blood Pressure 1: 112/68 Code: 8480-6 BMI: 18.6 Code: 43984-1 Heart Rate 1: 128 bpm Height: 5'5" SpO2: 98% Weight: 112 lbs 04/04/2018 Blood Pressure 1: 94/52 Code: 8480-6 Heart Rate 1: 120 bpm Height: 5'5" Respiratory Rate: 18 bpm SpO2: 98% Weight: 02/16/2018 Blood Pressure 1: 120/70 Code: 8480-6 BMI: 19.1 Code: 11068-0 Heart Rate 1: 115 bpm Height: 5'5" SpO2: 97% Weight: 115 lbs 12/30/2017 Blood Pressure 1: 100/68 Code: 8480-6 BMI: 18.3 Code: 39305-9 Heart Rate 1: 120 bpm Height: 5'5" SpO2: 94% Weight: 110 lbs 10/13/2017 Blood Pressure 1: 136/78 Code: 8480-6 BMI: 18.1 Code: 90152-2 Heart Rate 1: 126 bpm Height: 5'5" SpO2: 96% Weight: 109 lbs 07/12/2017 Blood Pressure 1: 100/56 Code: 8480-6 BMI: 18.1 Code: 81285-7 Heart Rate 1: 123 bpm Height: 5'5" SpO2: 99% Weight: 109 lbs 06/07/2017 Blood Pressure 1: 98/68 Code: 8480-6 BMI: 18.1 Code: 24973- 5 Heart Rate 1: 120 bpm Height: 5'5" SpO2: 99% Waist Measure (cm): 80 cm Weight: 109 lbs 05/24/2017 Blood Pressure 1: 104/62 Code: 8480-6 BMI: 18.1 Code: 32928-8 Heart Rate 1: 121 bpm Height: 5'5" SpO2: 97% Weight: 109 lbs 04/27/2017 Blood Pressure 1: 132/84 Code: 8480-6 BMI: 17.8 Code: 59194-2 Heart Rate 1: 129 bpm Height: 5'5" SpO2: 99% Weight: 107 lbs 04/13/2017 Blood Pressure 1: 100/66 Code: 8480-6 Heart Rate 1: 120 bpm Height: 5'5" SpO2: 99% Weight: 03/30/2017 Blood Pressure 1: 112/66 Code: 8480-6 BMI: 17.8 Code: 47305-1 Heart Rate 1: 112 bpm Height: 5'5" SpO2: 98% Weight: 107 lbs 03/02/2017 Blood Pressure 1: 128/78 Code: 8480-6 BMI: 18.1 Code: 86181-4 Heart Rate 1: 86 bpm Height: 5'5" SpO2: 95% Weight: 109 lbs 08/30/2016 Blood Pressure 1: 102/60 Code: 8480-6 BMI: 18.1 Code: 79250-3 Heart Rate 1: 135 bpm Height: 5'5" SpO2: 98% Weight: 109 lbs 08/11/2016 Blood Pressure 1: 100/66 Code: 8480-6 BMI: 18.6 Code: 98528-9 Heart Rate 1: 86 bpm Height: 5'5" SpO2: 94% Weight: 112 lbs 06/01/2016 Blood Pressure 1: 126/80 Code: 8480-6 BMI: 19.0 Code: 84365-9 Heart Rate 1: 100 bpm Height: 5'5" SpO2: 98% Waist Measure (cm): 64 cm Weight: 114 lbs 04/16/2016 Blood Pressure 1: 124/80 Code: 8480-6 Heart Rate 1: 110 bpm SpO2: 97% 02/10/2016 Blood Pressure 1: 102/64 Code: 8480-6 BMI: 18.3 Code: 50718-1 Heart Rate 1: 114 bpm Height: 5'5" [...] Present Encounters Encounter Performer Location Codes Date ([id number]) [id number] EST. PATIENT, LEVEL III Diagnosis: Other epilepsy, not intractable, without status epilepticus[ICD10: G40.802] Diagnosis: Muscle weakness (generalized)[ICD10: M62.81] Magali Zepeda MD, [facility] CPT-4: 21450 09/12/2018 [id number]) [id number] EST. PATIENT, LEVEL IV Diagnosis: Unsteadiness on feet[ICD10: R26.81] Diagnosis: Other epilepsy, not intractable, without status epilepticus[ICD10: G40.802] Diagnosis: Muscle weakness (generalized)[ICD10: M62.81] Magali Zepeda MD, [facility] CPT-4: 02117 08/21/2018 ([id number]) [id number] EST. PATIENT, LEVEL III Diagnosis: Cough[ICD10: R05] Diagnosis: Other epilepsy, not intractable, without status epilepticus[ICD10: G40.802] Mishel Zepeda MD, [facility] CPT-4: 83799 07/20/2018 ([id number]) 83065 EST. PATIENT, LEVEL III Diagnosis: Cough[ICD10: R05] Diagnosis: Acute upper respiratory infection, unspecified[ICD10: J06.9] Mishel Zepeda MD, [facility] CPT-4: 27418 07/07/2018 ([id number]) 68010 EST. PATIENT, LEVEL IV Diagnosis: Unsteadiness on feet[ICD10: R26.81] Diagnosis: Other abnormalities of gait and mobility[ICD10: R26.89] Diagnosis: Mixed incontinence[ICD10: N39.46] Diagnosis: Other epilepsy, not intractable, without status epilepticus[ICD10: G40.802] Magali Zepeda MD, [facility] CPT-4: 13807 05/22/2018 ([id number]) 77874 EST. PATIENT, LEVEL III Diagnosis: Right upper quadrant abdominal rigidity[ICD10: R19.31] Diagnosis: Functional diarrhea[ICD10: K59.1] Diagnosis: Calculus of gallbladder without cholecystitis without obstruction[ICD10: K80.20] Magali Zepeda MD, [facility] CPT-4: 83244 04/04/2018 ([id number]) 73946 EST. PATIENT, LEVEL IV Diagnosis: Other epilepsy, not intractable, without status epilepticus[ICD10: G40.802] Diagnosis: Slow transit constipation[ICD10: K59.01] Diagnosis: Dysuria[ICD10: R30.0] Diagnosis: Age-related osteoporosis without current pathological fracture[ICD10: M81.0] Magali Zepeda MD, [facility] CPT-4: 50676 02/16/2018 ([id number]) 54102 EST. PATIENT, LEVEL III Diagnosis: Slow transit constipation[ICD10: K59.01] Mishel Steve Zepeda MD, [facility] CPT-4: 94184 12/30/2017 ([id number]) 29288 EST. PATIENT, LEVEL IV Diagnosis: Other epilepsy, not intractable, without status epilepticus[ICD10: G40.802] Diagnosis: Slow transit constipation[ICD10: K59.01] Magali Zepeda MD, [facility] CPT-4: 97980 10/13/2017 ([id number]) 84046 EST. PATIENT, LEVEL III Diagnosis: Other epilepsy, not intractable, without status epilepticus[ICD10: G40.802] Diagnosis: Dysuria[ICD10: R30.0] Diagnosis: Mixed incontinence[ICD10: N39.46] Magali Zepeda MD, [facility] CPT- 4: 00968 07/12/2017 ([id number]) 46865 EST. 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 PATIENT, LEVEL III Diagnosis: Other epilepsy, not intractable, without status epilepticus[ICD10: G40.802] Magali Zepeda MD, [facility] CPT-4: 57998 04/27/2017 ([id number]) 47407 EST. 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 PATIENT, LEVEL IV Diagnosis: Calculus of gallbladder without cholecystitis without obstruction[ICD10: K80.20] Diagnosis: Benign paroxysmal vertigo, bilateral[ICD10: H81.13] Diagnosis: Slow transit constipation[ICD10: K59.01] Magali Zepeda MD, [facility] CPT-4: 96098 03/02/2017 ([id number]) 53784 EST. PATIENT, LEVEL IV Diagnosis: Rheumatoid arthritis without rheumatoid factor, multiple sites[ICD10: M06.09] Diagnosis: Generalized idiopathic epilepsy and epileptic syndromes, not intractable, with status epilepticus[ICD10: G40.301] Magali Zepeda MD, [facility] CPT-4: 18042 08/30/2016 [id number] EST. PATIENT, LEVEL IV Diagnosis: Other epilepsy, not intractable, without status epilepticus[ICD10: G40.802] Diagnosis: Low back pain[ICD10: M54.5] Diagnosis: Pressure ulcer of sacral region, stage 1[ICD10: L89.151] Windy Zepeda MD, [facility] CPT-4: 87734 08/11/2016 ([id number]) [id number] EST. PATIENT, LEVEL III Diagnosis: Urinary tract infection, site not specified[ICD10: N39.0] Diagnosis: Slow transit constipation[ICD10: K59.01] [facility] CPT-4: 77897 04/16/2016 ([id number]) OFFICE VISIT, NEW - LEVEL 4 Diagnosis: Other abnormalities of gait and mobility[ICD10: R26.89] Diagnosis: Dysuria[ICD10: R30.0] Diagnosis: Rheumatoid arthritis without rheumatoid factor, multiple sites[ICD10: M06.09] Magali [facility] CPT-4: 36002 02/10/2016 Plan of Care Planned Activity Notes Codes Status Date Visit Plan: Seizure disorder - check dilantin level - no change in current medications. Monitor symptoms. Generalized malaise - check urinalysis. 09/12/2018 Patient Education: Patient Medication Summary Completed [...] while seated. 08/21/2018 Appointment: [phone] [place] (15 min) Moderate 08/21/2018 Patient Education: Patient Medication Summary Completed 08/21/2018 Appointment: Lab Draw 08/07/2018 Patient Education: Patient Medication Summary Completed 08/07/2018 Patient Education: Patient Medication Summary Completed 08/03/2018 Visit Plan: Seizures -increase dilantin -repeat dilantin level in 1 week [id number] cefdinir-finish abx and let us know if your symptoms do not resolve or if any worse 07/20/2018 Appointment: Mishel Wilson WPtel[phone] [place] (15 min) Moderate 07/20/2018 Patient Education: Patient Medication Summary Completed 07/20/2018 Visit Plan: URI -viral- Pt advised to increase fluids, vitamin C. Discussed natural and expected course of this diagnosis and need to alert me if symptoms do not follow expected course, or if any worse. RX sent to patient's pharmacy to start if needed. 07/07/2018 Appointment: [facility] Wilson [facility]el[phone] [phone] [place] (30 min) Complex 07/07/2018 Patient Education: Patient Medication Summary Completed 07/07/2018 Appointment: [phone] [place] (15 min) Moderate 07/03/2018 Appointment: Lab [...] house. 05/22/2018 Appointment: Magali Zepeda WPtel: [phone] [facility] [place] (15 min) Moderate 05/22/2018 Patient Education: Patient Medication Summary Completed 05/22/2018 App[facility]ment: [phone] [place] (15 min) Moderate 05/15/2018 Visit Plan: [...] oversight post-operatively. 04/04/2018 Appointment: [phone] [place] (15 min) Moderate 04/04/2018 Patient Education: [...] care. 02/16/2018 Appointment: Magali Zepeda WPtel: [phone] [facility] [place] (15 min) Moderate 02/16/2018 Patient Education: [...] regimen. 12/30/2017 Appointment: Mishel Wilson WPtel: [phone] [phone] [place] (30 min) Complex 12/30/2017 Patient Education: [...] regimen. 10/13/2017 Appointment: Magali Zepeda WPtel: [phone] [facility] [place] (15 min) Moderate 10/13/2017 Patient Education: Patient Medication Summary Completed 10/13/2017 Appointment: Magali Zepeda WPtel: [phone] [facility] [place] (15 min) Moderate 10/06/2017 Appointment: Lab [...] accident 07/12/2017 Appointment: [phone] (15 min) Moderate 07/12/2017 Patient Education: Patient Medication Summary Completed 07/12/2017 Appointment: [facility]eda [phone] (15 min) Moderate 07/05/2017 Visit [...] Windy Greco WPtel: [facility] [facility] - Annual Wellness Visit 06/07/2017 [...] Magali Zepeda WPtel: [facility] (15 min) Moderate 05/24/2017 Patient Education: Patient Medication Summary Completed 05/24/2017 Appointment: Magali Zepeda WPtel: [facility] (15 min) Moderate 05/11/2017 Visit Plan: UTI [...] a week) 04/27/2017 Appointment: Magali Zepeda WPtel: [facility] (15 min) Moderate 04/27/2017 Patient Education: [...] monitor symptoms. 04/13/2017 Appointment: Magali Zepeda WPtel: [phone] [facility] [place] (15 min) Moderate 04/13/2017 Patient Education: [...] strategy. 03/30/2017 Appointment: Magali Zepeda WPtel: [phone] [facility] [place] (15 min) Moderate 03/30/2017 Patient Education: [...] for constipation. 03/02/2017 Appointment: Magali Zepeda WPtel: [phone] [facility] [place] (30 min) Complex 03/02/2017 Patient Education: Patient Medication Summary Completed 03/02/2017 Visit Plan: RA and Gait abnormality -continue with current treatments - supportive care Suspect some of her movement abnormalities may be due to her lamotrigine. 08/30/2016 Appointment: Magali Zepeda WPtel: [phone] [facility] (30 min) Complex 08/30/2016 [...] Windy Greco WPtel: [facility] (30 min) Complex 08/11/2016 Patient Education: [...] care surrogate. 06/01/2016 Appointment: Windy Greco WPtel: [facility] [facility] - Annual Wellness Visit 06/01/2016 [...] regimen. 04/16/2016 Appointment: Mishel Wilson WPtel: [phone] [phone] [place] [address] (15 min) Moderate 04/16/2016 Patient Education: Patient Medication Summary Completed 04/16/2016 Visit Plan: RA and Gait abnormality - recommended pt to have referral to physical therapy at [facility]. Suspect some of her movement abnormalities may be due to her lamotrigine. 02/10/2016 Appointment: Mag[facility]epeda [facility]Ptel: [phone] [facility] [facility] Patient 02/10/2016 Patient Education: [...] - pt is currently getting Prolia in [place], this is a big burden for her [...] dilantin -repeat dilantin level in 1 week [id number] cefdinir-finish abx and let us know if [...] regimen. RECOMMEND PROBIOTIC-ANY BRAND IS FINE: [facility] [employer], ALIGN sign release for labs from DR [...]
--- NOTE | 2018-12-30 22:35 | NUR ---
PT ASKS, "CAN I HAVE A DRINK OF WATER". PT ADVISED MULTIPLE TIMES SINCE ARRIVAL THAT SHE WILL NOT BE ALLOWED TO DRINK OR EAT UNTIL ALL TESTS COMPLETE AND EVALUATED. PT STATES, "WELL I SHOULD PROBABLY TELL YOU THAT I'VE GOT A MECLIZINE IN MY MOUTH RIGHT NOW THAT I'M TRYING TO SWALLOW BECAUSE I'M DIZZY." ATTEMPTED EDUCATION TO PT AND THAT MEDICATIONS SHOULD NOT BE TAKEN WHILE UNDER CARE AT ER UNLESS PROVIDER OKs. PT TALKING OVER THIS OIL DISTRIBUTOR TENDER/RN AND STATING UNDERSTANDS BUT STATES "SHE HAD A BRAIN INJURY". THIS OIL DISTRIBUTOR TENDER/RN AGAIN INFORMED PT THAT NO PILLS WITHOUT CONSENT OF PROVIDER CAN BE TAKEN AND BAG OF PILLS REMOVED FROM ROOM WITH PT STICKER AND PLACED AT PROVIDER DESK NEXT TO Desi BULLOCK APRN UNTIL PT ADMITTED OR DISCHARGED FROM ER. PT VERBALIZES UNDERSTANDING AND AGREEMENT.
--- OUTSIDE RECORDS SUMMARY | 2018-12-30 22:36 | XMS REPORT | CCD ---
Author Author [facility] Organization [facility] Address [address] [place] [address] Phone Care Team Providers Care Blender / Cook Name Role Phone PP Unavailable CCM Unavailable Summary Purpose Interface Exchange Insurance Providers Payer name Policy type / Coverage type Covered libertarian ID Effective Begin Date Effective End Date WPS Medicare Part B Medicare Part B [id number] Unknown [employer] [place] Medicare Part B [id number] Unknown Family history Sister Diagnosis Age At [...] Unknown Retired 02/10/[address]: 725044447 Never smoker 02/10/[address]: 917131402 Never drinks alcohol 02/10/2016 Has the patient ever used illegal drugs? Unknown Has never used illegal drugs 02/10/2016 Allergies, Adverse Reactions, Alerts Substance Reaction Codes Entered Date Inactivated Date Status * NO KNOWN DRUG ALLERGIES Unknown 02/10/2016 No Inactive Date Active Past Medical History Illness Codes Condition Status Onset Date Resolved Date Muscle weakness (generalized) ICD-9: 728.87 ICD-10: M62.81 [...] Problems Condition Codes Effective Dates Condition Status Muscle weakness (generalized) ICD-9: 728.87 ICD-10: M62.81 [...] Instructions doxycycline hyclate 100 mg tablet RxNorm: 1579535 1 Tablet(s) PO BID 08/16/2018 08/15/2018 Inactive dc keflex doxycycline hyclate 100 mg tablet RxNorm: 9547561 1 Tablet(s) PO BID 08/16/2018 08/25/2018 Inactive dc keflex lamotrigine 150 mg tablet RxNorm: 304121 TAKE 1 TABLET BY MOUTH AT BEDTIME 08/14/2018 No Stop Date Active Keflex 500 mg capsule RxNorm: 847732 1 Capsule(s) PO TID and probiotic bid x7 08/14/2018 08/15/2018 Inactive Keflex 500 mg capsule RxNorm: 556123 1 Capsule(s) PO TID and probiotic bid x7 08/14/2018 08/13/2018 Inactive Zithromax Z-Escobar 250 mg tablet RxNorm: 299627 2 po on first dose and 1 daily Tablet(s) PO 07/27/2018 08/20/2018 Inactive zpack x 1 Mucinex 600 mg tablet, extended release RxNorm: 461004 1 Tablet(s) PO BID 07/27/2018 07/26/2018 Inactive Mucinex 600 mg tablet, extended release RxNorm: 761385 1 Tablet(s) PO BID 07/27/2018 08/09/2018 Inactive Dilantin Extended 100 mg capsule RxNorm: 104444 Capsule(s) TAKE 1 CAP TID ON Mon/Thurs AND 1 CAPSULE QID other days. 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 if having symptoms of seizure activity, take an extra pill 05/29/2018 07/19/2018 Inactive Dilantin Extended 100 mg capsule RxNorm: 358486 Capsule(s) TAKE 1 CAP TID x2 DAYS, THEN 1 CAPSULE qid x2 DAYs, THEN REPEAT CYCLE. if having symptoms of seizure activity, take an extra pill 05/22/2018 05/28/2018 Inactive lamotrigine 150 mg tablet RxNorm: 406762 TAKE 1 TABLET BY MOUTH AT BEDTIME 04/17/2018 08/13/2018 Inactive Dilantin Extended 100 mg capsule RxNorm: 440511 TAKE 1 CAPSULE BY MOUTH THREE TIMES DAILY FOR 3 DAYS, THEN 1 CAPSULE FOUR TIMES DAILY FOR 1 DAY, THEN REPEAT CYCLE. 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 Dilantin Extended 100 mg capsule RxNorm: 462807 Capsule(s) PO UD 1 cap TID x 3 days then 1 cap qid x 1 day then repeat cycle 12/15/2017 04/11/2018 Inactive give 1 month supply lamotrigine 150 mg tablet RxNorm: 754159 1 Tablet(s) PO QHS 12/07/2017 04/05/2018 Inactive lamotrigine 100 mg tablet RxNorm: 929238 1 Tablet(s) PO QAM 12/07/2017 03/30/2018 Inactive Levaquin 500 mg tablet RxNorm: 393037 1 Tablet(s) PO daily 12/05/2017 12/11/2017 Inactive Keflex 500 mg capsule RxNorm: 411908 1 Capsule(s) PO TID 11/14/2017 11/20/2017 Inactive Keflex 500 mg capsule RxNorm: 334042 1 Capsule(s) PO TID 11/14/2017 11/13/2017 Inactive Dilantin Extended 100 mg capsule RxNorm: 306372 Capsule(s) PO UD m3pill/tue3 pill/wed 4 pill/ thur 2pill/fri 3pill/sat 4pill/sun 3 pill 10/13/2017 12/14/2017 Inactive Dilantin Extended 100 mg capsule RxNorm: 475213 Capsule(s) PO UD -Alternate 300 mg for two days in a row and then 400 mg for one day and repeat cycle 10/04/2017 10/12/2017 Inactive Augmentin 500 mg-125 mg tablet RxNorm: 370673 1 Tablet(s) PO TID 07/15/2017 07/14/2017 Inactive Augmentin 500 mg-125 mg tablet RxNorm: 984359 1 Tablet(s) PO TID 07/15/2017 07/21/2017 Inactive Dilantin Extended 100 mg capsule RxNorm: 935375 1 Capsule(s) PO daily -Alternate 300 mg and 400 mg every other day 06/07/2017 10/03/2017 Inactive Bactrim DS 800 mg-160 mg tablet RxNorm: 485396 1 Tablet(s) PO BID 05/02/2017 05/08/2017 Inactive Dilantin Extended 100 mg capsule RxNorm: 592999 1 Capsule(s) PO daily in the afternoon and 2 Capsules PO HS- Will take an additional pill if she has a lot of jerking 04/27/2017 06/06/2017 Inactive Keflex 500 mg capsule RxNorm: 470856 1 Capsule(s) PO TID 04/19/2017 04/23/2017 Inactive dicyclomine 10 mg capsule RxNorm: 540078 1 Capsule(s) PO BID as needed 03/30/2017 05/28/2017 Inactive Senna with Docusate Sodium 8.6 mg-50 mg tablet RxNorm: 224746 1 Tablet(s) PO BID as needed constipation 03/02/2017 07/29/2017 Inactive Keflex 500 mg capsule RxNorm: 950099 1 Capsule(s) PO TID 08/11/2016 08/20/2016 Inactive Levaquin 500 mg tablet RxNorm: 817270 1 Tablet(s) PO daily 04/16/2016 04/22/2016 Inactive ciprofloxacin 500 mg tablet RxNorm: 336210 1 Tablet(s) PO BID 02/10/2016 02/16/2016 Inactive prednisone 10 mg tablet RxNorm: 033518 1 Tablet(s) PO as needed for pain No Start Date Active Prolia 60 mg/mL subcutaneous syringe RxNorm: 603671 1 injection SQ Q6 months No Start Date Active lamotrigine 150 mg tablet RxNorm: 020775 1 Tablet(s) PO QHS No Start Date 12/06/2017 Inactive lamotrigine 100 mg tablet RxNorm: 212226 1 Tablet(s) PO QAM No Start Date 12/06/2017 Inactive Dilantin Extended 100 mg capsule RxNorm: 775860 Capsule(s) PO TAKES FOUR CAPSULES FOR 2 DAYS, THEN THREE CAPSULES FOR 1 DAY, THEN REPEATS No Start Date 04/26/2017 Inactive Zithromax Z-Escobar 250 mg tablet RxNorm: 869044 2 po on first dose and 1 daily Tablet(s) PO No Start Date 07/26/2018 Inactive zpack x 1 Humira 20 mg/0.4 mL subcutaneous syringe kit RxNorm: 124379 1 injection SQ every 2 weeks- Prescribed by Dr. Baker No Start Date 05/23/2017 Inactive Medication Administered No Medication Administered data Immunizations No Immunization data Assessments Condition Codes Effective Dates Other epilepsy, not intractable, without status epilepticus ICD- 10: G40.802 ICD-9: 345.10 08/21/2018 Muscle weakness (generalized) ICD-10: M62.81 ICD-9: 728.87 08/21/2018 Unsteadiness on feet ICD-10: R26.81 ICD-9: 781.2 [...] For Visit Effective Dates Notes muscle weakness 08/21/2018 Hospital Follow Up 07/20/2018 [...] Ord7 DILANTIN 10.5 UG/ML 05/11/2018 Comp Metabolic Rws350 NA 138 mEq/L 05/11/2018 Comp Metabolic Tru221 K 4.0 mEq/L 05/11/2018 Comp Metabolic Iya362 CL 100 mEq/L 05/11/2018 Comp Metabolic Lfc996 CO2 29.0 mEq/L 05/11/2018 Comp Metabolic Orp536 ANION GAP 13 05/11/2018 Comp Metabolic Olx010 GLUCOSE 84 mg/dL 05/11/2018 Comp Metabolic Zyn840 Creat 0.8 mg/dL 05/11/2018 Comp Metabolic Awo859 eGFR 77 ml/min/1.73m2 05/11/2018 Comp Metabolic Mra882 BUN 26 mg/dL 05/11/2018 Comp Metabolic Dvs548 B/C Ratio 33.3 Ratio 05/11/2018 Comp Metabolic Ixb286 CALCIUM 9.1 mg/dL 05/11/2018 Comp Metabolic Ejm885 ALK PHOS 97 U/L 05/11/2018 Comp Metabolic Fey181 AST(SGOT) 14 U/L 05/11/2018 Comp Metabolic Arm440 ALT(SGPT) 7 U/L 05/11/2018 Comp Metabolic Tlo902 BILI T 0.3 mg/dL 05/11/2018 Comp Metabolic Gxy428 ALBUMIN 3.6 g/dL 05/11/2018 Comp Metabolic Znk340 TPRO 6.9 g/dL 05/11/2018 Comp Metabolic Fyn977 GLOB 3.3 g/dL 05/11/2018 Comp Metabolic Sbb268 A/G Ratio 1.1 Ratio 05/11/2018 Comp Metabolic Kne865 Osmo 280 mOsmo 05/11/2018 Dilantin Ord7 DILANTIN 10.7 UG/ML 04/25/2018 Valproic Acid Fqh473 VALPROIC <10 ug/ml 04/24/2018 Dilantin Ord7 DILANTIN 10.6 UG/ML 04/11/2018 Culture Urine [id number] URINE CULTURE SEE NOTES 02/20/2018 Culture Urine [id number] Continued Results 02/20/2018 Urine Culture Ucult Complete >100,000 col/ml aerobic growth sent to ref lab 02/17/2018 Dilantin Ord7 DILANTIN 14.4 UG/ML 02/16/2018 Comp Metabolic Bsp183 NA 135 mEq/L 02/16/2018 Comp Metabolic Hxc788 K 3.8 mEq/L 02/16/2018 Comp Metabolic Eoa248 CL 99 mEq/L 02/16/2018 Comp Metabolic Tzm330 CO2 28.0 mEq/L 02/16/2018 Comp Metabolic Tkr913 ANION GAP 12 02/16/2018 Comp Metabolic Hlr830 GLUCOSE 101 mg/dL 02/16/2018 Comp Metabolic Vpe620 Creat 0.8 mg/dL 02/16/2018 Comp Metabolic Tzh667 eGFR 75 ml/min/1.73m2 02/16/2018 Comp Metabolic Hgg581 BUN 20 mg/dL 02/16/2018 Comp Metabolic Mqp026 B/C Ratio 25.0 Ratio 02/16/2018 Comp Metabolic Zil673 CALCIUM 8.9 mg/dL 02/16/2018 Comp Metabolic Htb802 ALK PHOS 95 U/L 02/16/2018 Comp Metabolic Bco013 AST(SGOT) 13 U/L 02/16/2018 Comp Metabolic Efl615 ALT(SGPT) 7 U/L 02/16/2018 Comp Metabolic Upl902 BILI T 0.4 mg/dL 02/16/2018 Comp Metabolic Qxh098 ALBUMIN 3.6 g/dL 02/16/2018 Comp Metabolic Gqa168 TPRO 7.2 g/dL 02/16/2018 Comp Metabolic Lud531 GLOB 3.6 g/dL 02/16/2018 Comp Metabolic Jxf274 A/G Ratio 1.0 Ratio 02/16/2018 Comp Metabolic Vxs047 Osmo 273 mOsmo 02/16/2018 Urine Culture Ucult Complete >100,000 col/ml aerobic growth sent to ref lab 11/15/2017 Comp Metabolic Jie972 NA 136 mEq/L 10/13/2017 Comp Metabolic Dwm951 K 4.0 mEq/L 10/13/2017 Comp Metabolic Snx033 CL 98 mEq/L 10/13/2017 Comp Metabolic Gxy007 CO2 28.0 mEq/L 10/13/2017 Comp Metabolic Iot967 ANION GAP 14 10/13/2017 Comp Metabolic Hcq751 GLUCOSE 94 mg/dL 10/13/2017 Comp Metabolic Fws753 Creat 0.7 mg/dL 10/13/2017 Comp Metabolic Kot994 eGFR 82 ml/min/1.73m2 10/13/2017 Comp Metabolic Ali349 BUN 26 mg/dL 10/13/2017 Comp Metabolic Sce863 B/C Ratio 35.1 Ratio 10/13/2017 Comp Metabolic Sue908 CALCIUM 9.1 mg/dL 10/13/2017 Comp Metabolic Tvv782 ALK PHOS 98 U/L 10/13/2017 Comp Metabolic Cyo198 AST(SGOT) 15 U/L 10/13/2017 Comp Metabolic Scr708 ALT(SGPT) 8 U/L 10/13/2017 Comp Metabolic Xen927 BILI T 0.4 mg/dL 10/13/2017 Comp Metabolic Alj262 ALBUMIN 3.7 g/dL 10/13/2017 Comp Metabolic Yin448 TPRO 7.8 g/dL 10/13/2017 Comp Metabolic Xlg764 GLOB 4.1 g/dL 10/13/2017 Comp Metabolic Qkj163 A/G Ratio 0.9 Ratio 10/13/2017 Comp Metabolic Ybv029 Osmo 276 mOsmo 10/13/2017 Dilantin Ord7 DILANTIN 21.4 Result Verified By Repeat Analysis UG/ML 10/13/2017 Dilantin Ord7 DILANTIN 24.1 Result Verified By Repeat Analysis UG/ML 10/03/2017 Dilantin Ord7 DILANTIN 18.1 UG/ML 06/30/2017 Dilantin Ord7 DILANTIN 22.7 UG/ML 06/16/2017 Dilantin Ord7 DILANTIN 26.1 UG/ML 06/07/2017 Dilantin Ord7 DILANTIN 24.1 UG/ML 05/24/2017 Dilantin Ord7 DILANTIN 19.6 UG/ML 05/11/2017 Culture Urine [id number] URINE CULTURE SEE NOTES 05/06/2017 Culture Urine [id number] Continued Results 05/06/2017 Urine Culture Ucult Complete >100,000 col/ml aerobic growth sent to ref lab 05/03/2017 Dilantin Ord7 DILANTIN 12.6 UG/ML 04/27/2017 Calcium Ord79 CALCIUM 9.3 mg/dL 04/19/2017 Dilantin Ord7 DILANTIN 21.6 UG/ML 04/19/2017 Dilantin Ord7 DILANTIN 10.3 UG/ML 04/13/2017 Dilantin Ord7 DILANTIN 21.9 UG/ML 04/07/2017 Comp Metabolic Gwf920 NA 137 mEq/L 03/30/2017 Comp Metabolic Twm941 K 3.7 mEq/L 03/30/2017 Comp Metabolic Zip316 CL 98 mEq/L 03/30/2017 Comp Metabolic Kyu888 CO2 29.0 mEq/L 03/30/2017 Comp Metabolic Csd307 ANION GAP 14 03/30/2017 Comp Metabolic Tyr023 GLUCOSE 100 mg/dL 03/30/2017 Comp Metabolic Eoh008 Creat 0.9 mg/dL 03/30/2017 Comp Metabolic Fka742 eGFR 88 ml/min/1.73m2 03/30/2017 Comp Metabolic Ryq936 BUN 22 mg/dL 03/30/2017 Comp Metabolic Ktc703 B/C Ratio 24.4 Ratio 03/30/2017 Comp Metabolic Apz769 CALCIUM 9.4 mg/dL 03/30/2017 Comp Metabolic Nly050 ALK PHOS 113 U/L 03/30/2017 Comp Metabolic Gsy540 AST(SGOT) 16 U/L 03/30/2017 Comp Metabolic Lce485 ALT(SGPT) 7 U/L 03/30/2017 Comp Metabolic Hoj326 BILI T 0.3 mg/dL 03/30/2017 Comp Metabolic Hjc489 ALBUMIN 3.9 g/dL 03/30/2017 Comp Metabolic Sad706 TPRO 8.0 g/dL 03/30/2017 Comp Metabolic Gyg421 GLOB 4.1 g/dL 03/30/2017 Comp Metabolic Mfe104 A/G Ratio 0.9 Ratio 03/30/2017 Comp Metabolic Smm290 Osmo 277 mOsmo 03/30/2017 Lipid Ord30 CHOL 214 mg/dL 03/30/2017 Lipid Ord30 HDL 61.0 mg/dl 03/30/2017 Lipid Ord30 TRIG 130 mg/dL 03/30/2017 Lipid Ord30 LDL 127 mg/dL 03/30/2017 Lipid Ord30 C/HDL 3.5 Ratio 03/30/2017 Dilantin Ord7 DILANTIN 32.5 UG/ML 03/30/2017 Folate Ord36 Folate 16.46 ng/mL 03/30/2017 Tsh Ord6 hTSH II 0.95 uIU/mL 03/30/2017 B12 Jou828 B12 592.00 pg/ml 03/30/2017 Cbc With Differential [...] 30.9 pg 03/30/2017 Cbc With Differential Ord2 [place]% 23.9 % 03/30/2017 Cbc With Differential Ord2 [...] 0.44 K/ul 03/30/2017 Cbc With Differential Ord2 [place] ABS# 0.3 K/ul 03/30/2017 Cbc With Differential [...] 30.3 pg 08/11/2016 Cbc With Differential Ord2 [place]% 31.7 % 08/11/2016 Cbc With Differential Ord2 [...] 0.59 K/ul 08/11/2016 Cbc With Differential Ord2 [place] ABS# 0.6 K/ul 08/11/2016 Cbc With Differential Ord2 Eos ABS# 0.0 K/ul 08/11/2016 Cbc With Differential Ord2 Baso ABS# 0.0 K/ul 08/11/2016 Dilantin Ord7 DILANTIN 17.2 UG/ML 08/11/2016 Tsh Ord6 hTSH II 0.82 uIU/mL 08/11/2016 Comp Metabolic Apn675 NA 131 mEq/L 08/11/2016 Comp Metabolic Ytb688 K 4.1 mEq/L 08/11/2016 Comp Metabolic Mru668 CL 93 mEq/L 08/11/2016 Comp Metabolic Xbf567 CO2 29.0 mEq/L 08/11/2016 Comp Metabolic Bmb254 ANION GAP 13 08/11/2016 Comp Metabolic Hmt121 GLUCOSE 120 mg/dL 08/11/2016 Comp Metabolic Rwj671 Creat 0.8 mg/dL 08/11/2016 Comp Metabolic Khj933 eGFR 101 ml/min/1.73m2 08/11/2016 Comp Metabolic Bcb903 BUN 18 mg/dL 08/11/2016 Comp Metabolic Fyu205 B/C Ratio 22.5 Ratio 08/11/2016 Comp Metabolic Pfl899 CALCIUM 9.5 mg/dL 08/11/2016 Comp Metabolic Csz074 ALK PHOS 104 U/L 08/11/2016 Comp Metabolic Isa466 AST(SGOT) 16 U/L 08/11/2016 Comp Metabolic Ckh619 ALT(SGPT) 8 U/L 08/11/2016 Comp Metabolic Sjq884 BILI T 0.4 mg/dL 08/11/2016 Comp Metabolic Uyt530 ALBUMIN 3.8 g/dL 08/11/2016 Comp Metabolic Eeg658 TPRO 8.4 g/dL 08/11/2016 Comp Metabolic Ndm649 GLOB 4.6 g/dL 08/11/2016 Comp Metabolic Xba823 A/G Ratio 0.8 Ratio 08/11/2016 Comp Metabolic Nps866 Osmo 266 mOsmo 08/11/2016 Culture Urine [id number] URINE CULTURE SEE NOTES 04/19/2016 Culture Urine [id number] Continued Results 04/19/2016 Urine Culture Ucult Complete >100,000 col/ml aerobic growth sent to ref lab 04/17/2016 Culture Urine [id number] URINE CULTURE SEE NOTES 02/13/2016 Culture Urine [id number] Continued Results 02/13/2016 Urine Culture Ucult Complete >100,000 col/ml aerobic growth sent to ref lab 02/11/2016 Dilantin Ord7 DILANTIN 19.2 UG/ML 02/10/2016 Review of Systems System Result Effective Dates Constitutional recent illness 08/21/2018 Constitutional No chills [...] Codes Date URINALYSIS NONAUTO W/O SCOPE CPT-4: 60614 08/07/2018 URINALYSIS NONAUTO W/O SCOPE CPT-4: 20347 06/12/2018 URINALYSIS NONAUTO W/O SCOPE CPT-4: 51229 02/16/2018 URINALYSIS NONAUTO W/O SCOPE CPT-4: 51468 11/14/2017 PPPS, SUBSEQ VISIT CPT- 4: G0439 06/07/2017 URINALYSIS NONAUTO W/O SCOPE CPT-4: 87823 05/02/2017 URINALYSIS NONAUTO W/O SCOPE CPT-4: 59872 04/26/2017 PPPS, SUBSEQ VISIT CPT- 4: G0439 06/01/2016 URINALYSIS NONAUTO W/O SCOPE CPT-4: 63726 04/16/2016 URINALYSIS NONAUTO W/O SCOPE CPT-4: 83649 02/10/2016 Vital Signs Date Vital 08/21/2018 Blood Pressure 1: 96/60 Code: 8480-6 Heart Rate 1: 114 bpm Height: 5'5" SpO2: 98% Weight: 07/20/2018 Blood Pressure 1: 104/60 Code: 8480-6 Heart Rate 1: 122 bpm Height: 5'5" SpO2: 94% Temperature: 36.7 (C) / 98.1 (F) Weight: 07/07/2018 Blood Pressure 1: 110/62 Code: 8480-6 BMI: 18.8 Code: 02794-3 Heart Rate 1: 67 bpm Height: 5'5" Temperature: 36.8 (C) / 98.2 (F) Weight: 113 lbs 05/22/2018 Blood Pressure 1: 112/68 Code: 8480-6 BMI: 18.6 Code: 10245-5 Heart Rate 1: 128 bpm Height: 5'5" SpO2: 98% Weight: 112 lbs 04/04/2018 Blood Pressure 1: 94/52 Code: 8480-6 Heart Rate 1: 120 bpm Height: 5'5" Respiratory Rate: 18 bpm SpO2: 98% Weight: 02/16/2018 Blood Pressure 1: 120/70 Code: 8480-6 BMI: 19.1 Code: 24105-2 Heart Rate 1: 115 bpm Height: 5'5" SpO2: 97% Weight: 115 lbs 12/30/2017 Blood Pressure 1: 100/68 Code: 8480-6 BMI: 18.3 Code: 75186-8 Heart Rate 1: 120 bpm Height: 5'5" SpO2: 94% Weight: 110 lbs 10/13/2017 Blood Pressure 1: 136/78 Code: 8480-6 BMI: 18.1 Code: 68248-9 Heart Rate 1: 126 bpm Height: 5'5" SpO2: 96% Weight: 109 lbs 07/12/2017 Blood Pressure 1: 100/56 Code: 8480-6 BMI: 18.1 Code: 49055-4 Heart Rate 1: 123 bpm Height: 5'5" SpO2: 99% Weight: 109 lbs 06/07/2017 Blood Pressure 1: 98/68 Code: 8480-6 BMI: 18.1 Code: 93727- 5 Heart Rate 1: 120 bpm Height: 5'5" SpO2: 99% Waist Measure (cm): 80 cm Weight: 109 lbs 05/24/2017 Blood Pressure 1: 104/62 Code: 8480-6 BMI: 18.1 Code: 70849-0 Heart Rate 1: 121 bpm Height: 5'5" SpO2: 97% Weight: 109 lbs 04/27/2017 Blood Pressure 1: 132/84 Code: 8480-6 BMI: 17.8 Code: 89226-4 Heart Rate 1: 129 bpm Height: 5'5" SpO2: 99% Weight: 107 lbs 04/13/2017 Blood Pressure 1: 100/66 Code: 8480-6 Heart Rate 1: 120 bpm Height: 5'5" SpO2: 99% Weight: 03/30/2017 Blood Pressure 1: 112/66 Code: 8480-6 BMI: 17.8 Code: 33888-6 Heart Rate 1: 112 bpm Height: 5'5" SpO2: 98% Weight: 107 lbs 03/02/2017 Blood Pressure 1: 128/78 Code: 8480-6 BMI: 18.1 Code: 37767-9 Heart Rate 1: 86 bpm Height: 5'5" SpO2: 95% Weight: 109 lbs 08/30/2016 Blood Pressure 1: 102/60 Code: 8480-6 BMI: 18.1 Code: 56926-1 Heart Rate 1: 135 bpm Height: 5'5" SpO2: 98% Weight: 109 lbs 08/11/2016 Blood Pressure 1: 100/66 Code: 8480-6 BMI: 18.6 Code: 28082-6 Heart Rate 1: 86 bpm Height: 5'5" SpO2: 94% Weight: 112 lbs 06/01/2016 Blood Pressure 1: 126/80 Code: 8480-6 BMI: 19.0 Code: 75904-4 Heart Rate 1: 100 bpm Height: 5'5" SpO2: 98% Waist Measure (cm): 64 cm Weight: 114 lbs 04/16/2016 Blood Pressure 1: 124/80 Code: 8480-6 Heart Rate 1: 110 bpm SpO2: 97% 02/10/2016 Blood Pressure 1: 102/64 Code: 8480-6 BMI: 18.3 Code: 80871-6 Heart Rate 1: 114 bpm Height: 5'5" SpO2: 98% Weight: 110 lbs Functional Status No Functional Status data History of Present Illness Symptom Name Status Result Effective Date Notes Location diffusely 08/21/2018 None Quality both sides [...] Present Encounters Encounter Performer Location Codes Date ([id number]) 09104 EST. PATIENT, LEVEL IV Diagnosis: Unsteadiness on feet[ICD10: R26.81] Diagnosis: Other epilepsy, not intractable, without status epilepticus[ICD10: G40.802] Diagnosis: Muscle weakness (generalized)[ICD10: M62.81] [facility] CPT-4: 42149 08/21/2018 ([id number]) 85217 EST. PATIENT, LEVEL III Diagnosis: Cough[ICD10: R05] Diagnosis: Other epilepsy, not intractable, without status epilepticus[ICD10: G40.802] [facility] CPT-4: 38324 07/20/2018 ([id number]) 98373 EST. PATIENT, LEVEL III Diagnosis: Cough[ICD10: R05] Diagnosis: Acute upper respiratory infection, unspecified[ICD10: J06.9] Mishel Zepeda MD, [facility] CPT-4: 19204 07/07/2018 ([id number]) 11121 EST. PATIENT, LEVEL IV Diagnosis: Unsteadiness on feet[ICD10: R26.81] Diagnosis: Other abnormalities of gait and mobility[ICD10: R26.89] Diagnosis: Mixed incontinence[ICD10: N39.46] Diagnosis: Other epilepsy, not intractable, without status epilepticus[ICD10: G40.802] [facility] Z[facility]eda MD, [facility] CPT-4: 11525 05/22/2018 ([id number]) 65715 EST. PATIENT, LEVEL III Diagnosis: Right upper quadrant abdominal rigidity[ICD10: R19.31] Diagnosis: Functional diarrhea[ICD10: K59.1] Diagnosis: Calculus of gallbladder without cholecystitis without obstruction[ICD10: K80.20] [facility] MD, [facility] CPT-4: 11781 04/04/2018 ([id number]) 49728 EST. PATIENT, LEVEL IV Diagnosis: Other epilepsy, not intractable, without status epilepticus[ICD10: G40.802] Diagnosis: Slow transit constipation[ICD10: K59.01] Diagnosis: Dysuria[ICD10: R30.0] Diagnosis: Age-related osteoporosis without current pathological fracture[ICD10: M81.0] Magali Zeepda MD, [facility] CPT-4: 72951 02/16/2018 ([id number]) 53241 EST. PATIENT, LEVEL III Diagnosis: Slow transit constipation[ICD10: K59.01] Mishel Zepeda MD, [facility] CPT-4: 39442 12/30/2017 ([id number]) 14291 EST. PATIENT, LEVEL IV Diagnosis: Other epilepsy, not intractable, without status epilepticus[ICD10: G40.802] Diagnosis: Slow transit constipation[ICD10: K59.01] [facility] MD, [facility] CPT-4: 17648 10/13/2017 ([id number]) 79895 EST. PATIENT, LEVEL III Diagnosis: Other epilepsy, not intractable, without status epilepticus[ICD10: G40.802] Diagnosis: Dysuria[ICD10: R30.0] Diagnosis: Mixed incontinence[ICD10: N39.46] [facility] MD, [facility] CPT- 4: 28738 07/12/2017 [id number]) 78988 EST. 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 PATIENT, LEVEL III Diagnosis: Other epilepsy, not intractable, without status epilepticus[ICD10: G40.802] [facility]eda MD, [facility] CPT-4: 01200 04/27/2017 [id number]) [id number] EST. 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 PATIENT, LEVEL IV Diagnosis: Calculus of gallbladder without cholecystitis without obstruction[ICD10: K80.20] Diagnosis: Benign paroxysmal vertigo, bilateral[ICD10: H81.13] Diagnosis: Slow transit constipation[ICD10: K59.01] [facility] MD, [facility] CPT-4: 55691 03/02/2017 ([id number]) 96164 EST. 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 PATIENT, LEVEL IV Diagnosis: Other epilepsy, not intractable, without status epilepticus[ICD10: G40.802] Diagnosis: Low back pain[ICD10: M54.5] Diagnosis: Pressure ulcer of sacral region, stage 1[ICD10: L89.151] Windy Zepeda MD, [facility] CPT-4: 83294 08/11/2016 ([id number]) [id number] EST. PATIENT, LEVEL III Diagnosis: Urinary tract infection, site not specified[ICD10: N39.0] Diagnosis: Slow transit constipation[ICD10: K59.01] Mishel Zepeda MD, [facility] CPT-4: 41604 04/16/2016 ([id number]) OFFICE VISIT, NEW - LEVEL 4 Diagnosis: Other abnormalities of gait and mobility[ICD10: R26.89] Diagnosis: Dysuria[ICD10: R30.0] Diagnosis: Rheumatoid arthritis without rheumatoid factor, multiple sites[ICD10: M06.09] Magali Zepeda MD, [facility] CPT-4: 68809 02/10/2016 Plan of Care Planned Activity Notes [...] while seated. 08/21/2018 Appointment: Magali Zepeda WPtel: [address] [place], [place] [id number] (15 min) Moderate 08/21/2018 Patient Education: Patient Medication Summary Completed 08/21/2018 Appointment: Lab Draw 08/07/2018 Patient Education: Patient Medication Summary Completed 08/07/2018 Patient Education: Patient Medication Summary Completed 08/03/2018 Visit Plan: Seizures -increase dilantin -repeat dilantin level in 1 week [id number] cefdinir-finish abx and let us know if your symptoms do not resolve or if any worse 07/20/2018 Appointment: Mishel Wilson WPtel: [facility]5 [phone] [place] (15 min) Moderate 07/20/2018 Patient Education: Patient Medication Summary Completed 07/20/2018 Visit Plan: URI -viral- Pt advised to increase fluids, vitamin C. Discussed natural and expected course of this diagnosis and need to alert me if symptoms do not follow expected course, or if any worse. RX sent to patient's pharmacy to start if needed. 07/07/2018 Appointment: Mishel Wilson WPtel: [address] [place], [place] [phone] [place] (30 min) Complex 07/07/2018 Patient Education: Patient Medication Summary Completed 07/07/2018 Appointment: Magali Zepeda WPtel: [address] [place], [place] [id number] [place] (15 min) Moderate 07/03/2018 Appointment: Lab [...] the house. 05/22/2018 Appointment: Magali Zepeda WPtel: [facility]6 [facility] [place] (15 min) Moderate 05/22/2018 Patient Education: Patient Medication Summary Completed 05/22/2018 Appointment: Magali Zepeda WPtel: [phone] [facility] [place] (15 min) Moderate 05/15/2018 Visit Plan: [...] Zepeda WPtel: [phone] [facility] [place] (15 min) Moderate 04/04/2018 Patient Education: Patient Medication Summary Completed 04/04/2018 Patient Education: Diarrhea Completed 04/04/2018 Visit Plan: Epilepsy - chronic - continue with current regimen - check labs. Osteoporosis - pt is currently getting Prolia in [place], this is a big burden for her [...] Zepeda WPtel: [phone] [facility] [place] (15 min) Moderate 02/16/2018 Patient Education: [...] regimen. 12/30/2017 Appointment: Mishel Wilson WPtel: [phone] [phone] [place] (30 min) Complex 12/30/2017 Patient Education: [...] this regimen. 10/13/2017 [phone] [place] ([facility] min) Moderate 10/13/2017 Patient Education: Patient Medication Summary Completed 10/13/2017 Appointment: Magali Zepeda WPtel: [phone] [facility] [place] (15 min) Moderate 10/06/2017 Appointment: Lab [...] on accident 07/12/2017 Appointment: Magali Zepeda WPtel[facility] [place] (15 min) Moderate 07/12/2017 Patient Education: Patient Medication Summary Completed 07/12/2017 Appointment: [phone] [place] (15 min) Moderate 07/05/2017 [...] care surrogate. 06/07/2017 Appointment: Wind[facility] Greco [facility]Ptel[facility] [facility] - Annual Wellness Visit 06/07/2017 Patient Education: [...] per week. 05/24/2017 Appointment: Magali Zepeda WPtel[facility] (15 min) Moderate 05/24/2017 Patient Education: Patient Medication Summary Completed 05/24/2017 Appointment: Magali Zepeda WPtel[facility] (15 min) Moderate 05/11/2017 Visit [...] week) 04/27/2017 Appointment: Magali Zepeda WPtel: [phone] [facility] [place] (15 min) Moderate 04/27/2017 Patient Education: [...] Zepeda WPtel: [phone] [facility] [place] (15 min) Moderate 04/13/2017 Patient Education: [...] strategy. 03/30/2017 Appointment: [phone] [place] (15 min) Moderate 03/30/2017 [...] for constipation. 03/02/2017 Appointment: Magali Zepeda WPtel: [facility]8 [phone] (30 min) Complex 03/02/2017 Patient Education: Patient Medication Summary Completed 03/02/2017 Visit Plan: RA and Gait abnormality -continue with current treatments - supportive care Suspect some of her movement abnormalities may be due to her lamotrigine. 08/30/2016 Appointment: Magali Zepeda WPtel: [facility]2 [phone] (30 min) Complex 08/30/2016 Patient Education: Patient [...] warmth, discharge. 08/11/2016 Appointment: Windy Greco WPtel: [facility]7 [phone] (30 min) Complex 08/11/2016 Patient Education: Patient [...] surrogate. 06/01/2016 Appointment: Windy Greco WPtel: [phone] [facility] [place] [address] - Annual Wellness Visit 06/01/2016 Patient Education: [...] regimen. 04/16/2016 App[facility]ment[phone] (15 min) Moderate 04/16/2016 Patient Education: Patient Medication Summary Completed 04/16/2016 Visit Plan: RA and Gait abnormality - recommended pt to have referral to physical therapy at [facility]. Suspect some of her movement abnormalities may be due to her lamotrigine. 02/10/2016 Appointment: Magali Zepeda WPtel: [facility]1 [facility] [place] New Patient 02/10/2016 Patient Education: Patient [...] - pt is currently getting Prolia in [place], this is a big burden for her [...] dilantin -repeat dilantin level in 1 week [id number] cefdinir-finish abx and let us know if your symptoms do not resolve or if any worse . UTI - pt with positive urinalysis - culture sent if appropriate. Antibiotic electronically prescribed to pt's pharmacy of choice. Pt to call if symptoms do not improve. . RA and Gait abnormality - recommended pt to have referral to physical therapy at [facility]. Suspect some of her movement [...] an elliptical to be used while seated. start antibiotic if needed over the weekend [...] RECOMMEND PROBIOTIC-ANY BRAND IS FINE: DAYAN LANG [place], ALIGN sign release for labs from DR [...]
--- OUTSIDE RECORDS SUMMARY | 2018-12-30 22:39 | XMS REPORT | CCD ---
Author Author [facility] Organization [facility] Address [address] [place] [address] Phone Care Team Providers Care Audiovisual Lead Technician Name Role Phone PP Unavailable CCM Unavailable Summary Purpose Interface Exchange Insurance Providers Payer name Policy type / Coverage type Covered green party ID Effective Begin Date Effective End Date WPS Medicare Part B Medicare Part B [id number] Unknown [employer] Medicare Part B [id number] Unknown Family history Sister Diagnosis Age At [...] Unknown Retired 02/10/[address]: 066074186 Never smoker 02/10/[address]: 230523570 Never drinks alcohol 02/10/2016 Has the patient [...] Instructions doxycycline hyclate 100 mg tablet RxNorm: 1300817 1 Tablet(s) PO BID 08/16/2018 08/25/2018 Active dc keflex doxycycline hyclate 100 mg tablet RxNorm: 3798485 1 Tablet(s) PO BID 08/16/2018 08/15/2018 Inactive dc keflex lamotrigine 150 mg tablet RxNorm: 311073 TAKE 1 TABLET BY MOUTH AT BEDTIME 08/14/2018 No Stop Date Active Keflex 500 mg capsule RxNorm: 568528 1 Capsule(s) PO TID and probiotic bid x7 08/14/2018 08/15/2018 Inactive Keflex 500 mg capsule RxNorm: 758647 1 Capsule(s) PO TID and probiotic bid x7 08/14/2018 08/13/2018 Inactive Zithromax Z-Escobar 250 mg tablet RxNorm: 649041 2 po on first dose and 1 daily Tablet(s) PO 07/27/2018 08/20/2018 Inactive zpack x 1 Mucinex 600 mg tablet, extended release RxNorm: 034811 1 Tablet(s) PO BID 07/27/2018 07/26/2018 Inactive Mucinex 600 mg tablet, extended release RxNorm: 437565 1 Tablet(s) PO BID 07/27/2018 08/09/2018 Inactive Dilantin Extended 100 mg capsule RxNorm: 306895 Capsule(s) TAKE 1 CAP TID ON Mon/Thurs AND 1 CAPSULE QID other days. 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 if having symptoms of seizure activity, take an extra pill 05/29/2018 07/19/2018 Inactive Dilantin Extended 100 mg capsule RxNorm: 763982 Capsule(s) TAKE 1 CAP TID x2 DAYS, THEN 1 CAPSULE qid x2 DAYs, THEN REPEAT CYCLE. if having symptoms of seizure activity, take an extra pill 05/22/2018 05/28/2018 Inactive lamotrigine 150 mg tablet RxNorm: 628581 TAKE 1 TABLET BY MOUTH AT BEDTIME 04/17/2018 08/13/2018 Inactive Dilantin Extended 100 mg capsule RxNorm: 707116 TAKE 1 CAPSULE BY MOUTH THREE TIMES DAILY FOR 3 DAYS, THEN 1 CAPSULE FOUR TIMES DAILY FOR 1 DAY, THEN REPEAT CYCLE. 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 Dilantin Extended 100 mg capsule RxNorm: 847409 Capsule(s) PO UD 1 cap TID x 3 days then 1 cap qid x 1 day then repeat cycle 12/15/2017 04/11/2018 Inactive give 1 month supply lamotrigine 150 mg tablet RxNorm: 480444 1 Tablet(s) PO QHS 12/07/2017 04/05/2018 Inactive lamotrigine 100 mg tablet RxNorm: 634881 1 Tablet(s) PO QAM 12/07/2017 03/30/2018 Inactive Levaquin 500 mg tablet RxNorm: 536034 1 Tablet(s) PO daily 12/05/2017 12/11/2017 Inactive Keflex 500 mg capsule RxNorm: 403939 1 Capsule(s) PO TID 11/14/2017 11/20/2017 Inactive Keflex 500 mg capsule RxNorm: 253584 1 Capsule(s) PO TID 11/14/2017 11/13/2017 Inactive Dilantin Extended 100 mg capsule RxNorm: 558015 Capsule(s) PO UD m3pill/tue3 pill/wed 4 pill/ thur 2pill/fri 3pill/sat 4pill/sun 3 pill 10/13/2017 12/14/2017 Inactive Dilantin Extended 100 mg capsule RxNorm: 864316 Capsule(s) PO UD -Alternate 300 mg for two days in a row and then 400 mg for one day and repeat cycle 10/04/2017 10/12/2017 Inactive Augmentin 500 mg-125 mg tablet RxNorm: 107907 1 Tablet(s) PO TID 07/15/2017 07/14/2017 Inactive Augmentin 500 mg-125 mg tablet RxNorm: 836517 1 Tablet(s) PO TID 07/15/2017 07/21/2017 Inactive Dilantin Extended 100 mg capsule RxNorm: 613954 1 Capsule(s) PO daily -Alternate 300 mg and 400 mg every other day 06/07/2017 10/03/2017 Inactive Bactrim DS 800 mg-160 mg tablet RxNorm: 153997 1 Tablet(s) PO BID 05/02/2017 05/08/2017 Inactive Dilantin Extended 100 mg capsule RxNorm: 312419 1 Capsule(s) PO daily in the afternoon and 2 Capsules PO HS- Will take an additional pill if she has a lot of jerking 04/27/2017 06/06/2017 Inactive Keflex 500 mg capsule RxNorm: 049220 1 Capsule(s) PO TID 04/19/2017 04/23/2017 Inactive dicyclomine 10 mg capsule RxNorm: 857266 1 Capsule(s) PO BID as needed 03/30/2017 05/28/2017 Inactive Senna with Docusate Sodium 8.6 mg-50 mg tablet RxNorm: 511849 1 Tablet(s) PO BID as needed constipation 03/02/2017 07/29/2017 Inactive Keflex 500 mg capsule RxNorm: 865193 1 Capsule(s) PO TID 08/11/2016 08/20/2016 Inactive Levaquin 500 mg tablet RxNorm: 087717 1 Tablet(s) PO daily 04/16/2016 04/22/2016 Inactive ciprofloxacin 500 mg tablet RxNorm: 108074 1 Tablet(s) PO BID 02/10/2016 02/16/2016 Inactive prednisone 10 mg tablet RxNorm: 138073 1 Tablet(s) PO as needed for pain No Start Date Active Prolia 60 mg/mL subcutaneous syringe RxNorm: 286037 1 injection SQ Q6 months No Start Date Active lamotrigine 150 mg tablet RxNorm: 701403 1 Tablet(s) PO QHS No Start Date 12/06/2017 Inactive lamotrigine 100 mg tablet RxNorm: 716755 1 Tablet(s) PO QAM No Start Date 12/06/2017 Inactive Dilantin Extended 100 mg capsule RxNorm: 639019 Capsule(s) PO TAKES FOUR CAPSULES FOR 2 DAYS, THEN THREE CAPSULES FOR 1 DAY, THEN REPEATS No Start Date 04/26/2017 Inactive Zithromax Z-Escobar 250 mg tablet RxNorm: 356116 2 po on first dose and 1 daily Tablet(s) PO No Start Date 07/26/2018 Inactive zpack x 1 Humira 20 mg/0.4 mL subcutaneous syringe kit RxNorm: 333889 1 injection SQ every 2 weeks- Prescribed by Dr. Bakre No Start Date 05/23/2017 Inactive Medication Administered [...] Code Result Date Urine Culture Ucult Complete >100,000 col/ml aerobic growth sent to ref lab 08/08/2018 Dilantin Ord7 DILANTIN 17.9 UG/ML 08/03/2018 Urine Culture Ucult Complete Growth of aerobe sent to ref lab 06/14/2018 Dilantin Ord7 DILANTIN 10.5 UG/ML 05/11/2018 Comp Metabolic Gsy021 NA 138 mEq/L 05/11/2018 Comp Metabolic Vxx831 K 4.0 mEq/L 05/11/2018 Comp Metabolic Ulr442 CL 100 mEq/L 05/11/2018 Comp Metabolic Rya033 CO2 29.0 mEq/L 05/11/2018 Comp Metabolic Pzn055 ANION GAP 13 05/11/2018 Comp Metabolic Zqf331 GLUCOSE 84 mg/dL 05/11/2018 Comp Metabolic Thr549 Creat 0.8 mg/dL 05/11/2018 Comp Metabolic Usd858 eGFR 77 ml/min/1.73m2 05/11/2018 Comp Metabolic Xvr573 BUN 26 mg/dL 05/11/2018 Comp Metabolic Qgr532 B/C Ratio 33.3 Ratio 05/11/2018 Comp Metabolic Ytn738 CALCIUM 9.1 mg/dL 05/11/2018 Comp Metabolic Dbd011 ALK PHOS 97 U/L 05/11/2018 Comp Metabolic Pdz682 AST(SGOT) 14 U/L 05/11/2018 Comp Metabolic Yey842 ALT(SGPT) 7 U/L 05/11/2018 Comp Metabolic Zqs450 BILI T 0.3 mg/dL 05/11/2018 Comp Metabolic Vox874 ALBUMIN 3.6 g/dL 05/11/2018 Comp Metabolic Jqo049 TPRO 6.9 g/dL 05/11/2018 Comp Metabolic Qqj267 GLOB 3.3 g/dL 05/11/2018 Comp Metabolic Eyx971 A/G Ratio 1.1 Ratio 05/11/2018 Comp Metabolic Nyt322 Osmo 280 mOsmo 05/11/2018 Dilantin Ord7 DILANTIN 10.7 UG/ML 04/25/2018 Valproic Acid Vkz134 VALPROIC <10 ug/ml 04/24/2018 Dilantin Ord7 DILANTIN 10.6 UG/ML 04/11/2018 Culture Urine [id number] URINE CULTURE SEE NOTES 02/20/2018 Culture Urine [id number] Continued Results 02/20/2018 Urine Culture Ucult Complete >100,000 col/ml aerobic growth sent to ref lab 02/17/2018 Dilantin Ord7 DILANTIN 14.4 UG/ML 02/16/2018 Comp Metabolic Pmt361 NA 135 mEq/L 02/16/2018 Comp Metabolic Gka033 K 3.8 mEq/L 02/16/2018 Comp Metabolic Zhe930 CL 99 mEq/L 02/16/2018 Comp Metabolic Eiy823 CO2 28.0 mEq/L 02/16/2018 Comp Metabolic Aob904 ANION GAP 12 02/16/2018 Comp Metabolic Tgy014 GLUCOSE 101 mg/dL 02/16/2018 Comp Metabolic Gpu823 Creat 0.8 mg/dL 02/16/2018 Comp Metabolic Ufx310 eGFR 75 ml/min/1.73m2 02/16/2018 Comp Metabolic Ubv417 BUN 20 mg/dL 02/16/2018 Comp Metabolic Nrd095 B/C Ratio 25.0 Ratio 02/16/2018 Comp Metabolic Pjx870 CALCIUM 8.9 mg/dL 02/16/2018 Comp Metabolic Ncl691 ALK PHOS 95 U/L 02/16/2018 Comp Metabolic Toy510 AST(SGOT) 13 U/L 02/16/2018 Comp Metabolic Zhp883 ALT(SGPT) 7 U/L 02/16/2018 Comp Metabolic Wqn876 BILI T 0.4 mg/dL 02/16/2018 Comp Metabolic Hhl443 ALBUMIN 3.6 g/dL 02/16/2018 Comp Metabolic Ssh078 TPRO 7.2 g/dL 02/16/2018 Comp Metabolic Lmx549 GLOB 3.6 g/dL 02/16/2018 Comp Metabolic Cmf699 A/G Ratio 1.0 Ratio 02/16/2018 Comp Metabolic Fme913 Osmo 273 mOsmo 02/16/2018 Urine Culture Ucult Complete >100,000 col/ml aerobic growth sent to ref lab 11/15/2017 Comp Metabolic Ktw412 NA 136 mEq/L 10/13/2017 Comp Metabolic Tlf461 K 4.0 mEq/L 10/13/2017 Comp Metabolic Evn163 CL 98 mEq/L 10/13/2017 Comp Metabolic Ubl258 CO2 28.0 mEq/L 10/13/2017 Comp Metabolic Dmq781 ANION GAP 14 10/13/2017 Comp Metabolic Onq924 GLUCOSE 94 mg/dL 10/13/2017 Comp Metabolic Qdi373 Creat 0.7 mg/dL 10/13/2017 Comp Metabolic Ndl786 eGFR 82 ml/min/1.73m2 10/13/2017 Comp Metabolic Twq503 BUN 26 mg/dL 10/13/2017 Comp Metabolic Chv777 B/C Ratio 35.1 Ratio 10/13/2017 Comp Metabolic Yml086 CALCIUM 9.1 mg/dL 10/13/2017 Comp Metabolic Bmr205 ALK PHOS 98 U/L 10/13/2017 Comp Metabolic Cwr583 AST(SGOT) 15 U/L 10/13/2017 Comp Metabolic Sgq084 ALT(SGPT) 8 U/L 10/13/2017 Comp Metabolic Fet180 BILI T 0.4 mg/dL 10/13/2017 Comp Metabolic Ghu376 ALBUMIN 3.7 g/dL 10/13/2017 Comp Metabolic Zwg380 TPRO 7.8 g/dL 10/13/2017 Comp Metabolic Kuj334 GLOB 4.1 g/dL 10/13/2017 Comp Metabolic Xec773 A/G Ratio 0.9 Ratio 10/13/2017 Comp Metabolic Kyz113 Osmo 276 mOsmo 10/13/2017 Dilantin Ord7 DILANTIN 21.4 Result Verified By Repeat Analysis UG/ML 10/13/2017 Dilantin Ord7 DILANTIN 24.1 Result Verified By Repeat Analysis UG/ML 10/03/2017 Dilantin Ord7 DILANTIN 18.1 UG/ML 06/30/2017 Dilantin Ord7 DILANTIN 22.7 UG/ML 06/16/2017 Dilantin Ord7 DILANTIN 26.1 UG/ML 06/07/2017 Dilantin Ord7 DILANTIN 24.1 UG/ML 05/24/2017 Dilantin Ord7 DILANTIN 19.6 UG/ML 05/11/2017 Culture Urine [id number] URINE CULTURE SEE NOTES 05/06/2017 Culture Urine [id number] Continued Results 05/06/2017 Urine Culture Ucult Complete >100,000 col/ml aerobic growth sent to ref lab 05/03/2017 Dilantin Ord7 DILANTIN 12.6 UG/ML 04/27/2017 Calcium Ord79 CALCIUM 9.3 mg/dL 04/19/2017 Dilantin Ord7 DILANTIN 21.6 UG/ML 04/19/2017 Dilantin Ord7 DILANTIN 10.3 UG/ML 04/13/2017 Dilantin Ord7 DILANTIN 21.9 UG/ML 04/07/2017 Comp Metabolic Xbn055 NA 137 mEq/L 03/30/2017 Comp Metabolic Rwy496 K 3.7 mEq/L 03/30/2017 Comp Metabolic Ods763 CL 98 mEq/L 03/30/2017 Comp Metabolic Pmq072 CO2 29.0 mEq/L 03/30/2017 Comp Metabolic Mrd571 ANION GAP 14 03/30/2017 Comp Metabolic Rvg950 GLUCOSE 100 mg/dL 03/30/2017 Comp Metabolic Qvn047 Creat 0.9 mg/dL 03/30/2017 Comp Metabolic Phv711 eGFR 88 ml/min/1.73m2 03/30/2017 Comp Metabolic Jxn035 BUN 22 mg/dL 03/30/2017 Comp Metabolic Skr260 B/C Ratio 24.4 Ratio 03/30/2017 Comp Metabolic Uri302 CALCIUM 9.4 mg/dL 03/30/2017 Comp Metabolic Jjh570 ALK PHOS 113 U/L 03/30/2017 Comp Metabolic Lcx587 AST(SGOT) 16 U/L 03/30/2017 Comp Metabolic Grj568 ALT(SGPT) 7 U/L 03/30/2017 Comp Metabolic Err634 BILI T 0.3 mg/dL 03/30/2017 Comp Metabolic Btb107 ALBUMIN 3.9 g/dL 03/30/2017 Comp Metabolic Ory595 TPRO 8.0 g/dL 03/30/2017 Comp Metabolic Wht791 GLOB 4.1 g/dL 03/30/2017 Comp Metabolic Isr754 A/G Ratio 0.9 Ratio 03/30/2017 Comp Metabolic Vos941 Osmo 277 mOsmo 03/30/2017 Lipid Ord30 CHOL 214 mg/dL 03/30/2017 Lipid Ord30 HDL 61.0 mg/dl 03/30/2017 Lipid Ord30 TRIG 130 mg/dL 03/30/2017 Lipid Ord30 LDL 127 mg/dL 03/30/2017 Lipid Ord30 C/HDL 3.5 Ratio 03/30/2017 Dilantin Ord7 DILANTIN 32.5 UG/ML 03/30/2017 Folate Ord36 Folate 16.46 ng/mL 03/30/2017 Tsh Ord6 hTSH II 0.95 uIU/mL 03/30/2017 B12 Ffo617 B12 592.00 pg/ml 03/30/2017 Cbc With Differential [...] 30.9 pg 03/30/2017 Cbc With Differential Ord2 Dare% 23.9 % 03/30/2017 Cbc With Differential Ord2 [...] 0.44 K/ul 03/30/2017 Cbc With Differential Ord2 Dare ABS# 0.3 K/ul 03/30/2017 Cbc With Differential [...] 30.3 pg 08/11/2016 Cbc With Differential Ord2 Dare% 31.7 % 08/11/2016 Cbc With Differential Ord2 [...] 0.59 K/ul 08/11/2016 Cbc With Differential Ord2 Dare ABS# 0.6 K/ul 08/11/2016 Cbc With Differential Ord2 Eos ABS# 0.0 K/ul 08/11/2016 Cbc With Differential Ord2 Baso ABS# 0.0 K/ul 08/11/2016 Dilantin Ord7 DILANTIN 17.2 UG/ML 08/11/2016 Tsh Ord6 hTSH II 0.82 uIU/mL 08/11/2016 Comp Metabolic Euo377 NA 131 mEq/L 08/11/2016 Comp Metabolic Vnn268 K 4.1 mEq/L 08/11/2016 Comp Metabolic Jzy442 CL 93 mEq/L 08/11/2016 Comp Metabolic Zps004 CO2 29.0 mEq/L 08/11/2016 Comp Metabolic Wvp808 ANION GAP 13 08/11/2016 Comp Metabolic Orr310 GLUCOSE 120 mg/dL 08/11/2016 Comp Metabolic Sjh617 Creat 0.8 mg/dL 08/11/2016 Comp Metabolic Hsl634 eGFR 101 ml/min/1.73m2 08/11/2016 Comp Metabolic Odg011 BUN 18 mg/dL 08/11/2016 Comp Metabolic Rsy110 B/C Ratio 22.5 Ratio 08/11/2016 Comp Metabolic Vkz624 CALCIUM 9.5 mg/dL 08/11/2016 Comp Metabolic Kvi970 ALK PHOS 104 U/L 08/11/2016 Comp Metabolic Gie739 AST(SGOT) 16 U/L 08/11/2016 Comp Metabolic Mkk784 ALT(SGPT) 8 U/L 08/11/2016 Comp Metabolic Zcv446 BILI T 0.4 mg/dL 08/11/2016 Comp Metabolic Ogf497 ALBUMIN 3.8 g/dL 08/11/2016 Comp Metabolic Emo173 TPRO 8.4 g/dL 08/11/2016 Comp Metabolic Dwr645 GLOB 4.6 g/dL 08/11/2016 Comp Metabolic Nxq237 A/G Ratio 0.8 Ratio 08/11/2016 Comp Metabolic Hxh899 Osmo 266 mOsmo 08/11/2016 Culture Urine [id number] URINE CULTURE SEE NOTES 04/19/2016 Culture Urine [id number] Continued Results 04/19/2016 Urine Culture Ucult Complete >100,000 col/ml aerobic growth sent to ref lab 04/17/2016 Culture Urine [id number] URINE CULTURE SEE NOTES 02/13/2016 Culture Urine [id number] Continued Results 02/13/2016 Urine Culture Ucult Complete [...] Codes Date URINALYSIS NONAUTO W/O SCOPE CPT-4: 05923 08/07/2018 URINALYSIS NONAUTO W/O SCOPE CPT-4: 18029 06/12/2018 URINALYSIS NONAUTO W/O SCOPE CPT-4: 33977 02/16/2018 URINALYSIS NONAUTO W/O SCOPE CPT-4: 13771 11/14/2017 PPPS, SUBSEQ VISIT CPT- 4: G0439 06/07/2017 URINALYSIS NONAUTO W/O SCOPE CPT-4: 49906 05/02/2017 URINALYSIS NONAUTO W/O SCOPE CPT-4: 69186 04/26/2017 PPPS, SUBSEQ VISIT CPT- 4: G0439 06/01/2016 URINALYSIS NONAUTO W/O SCOPE CPT-4: 61111 04/16/2016 URINALYSIS NONAUTO W/O SCOPE CPT-4: 97636 02/10/2016 Vital Signs Date Vital 08/21/2018 Blood Pressure 1: 96/60 Code: 8480-6 Heart Rate 1: 114 bpm Height: 5'5" SpO2: 98% Weight: 07/20/2018 Blood Pressure 1: 104/60 Code: 8480-6 Heart Rate 1: 122 bpm Height: 5'5" SpO2: 94% Temperature: 36.7 (C) / 98.1 (F) Weight: 07/07/2018 Blood Pressure 1: 110/62 Code: 8480-6 BMI: 18.8 Code: 58153-4 Heart Rate 1: 67 bpm Height: 5'5" Temperature: 36.8 (C) / 98.2 (F) Weight: 113 lbs 05/22/2018 Blood Pressure 1: 112/68 Code: 8480-6 BMI: 18.6 Code: 17270-7 Heart Rate 1: 128 bpm Height: 5'5" SpO2: 98% Weight: 112 lbs 04/04/2018 Blood Pressure 1: 94/52 Code: 8480-6 Heart Rate 1: 120 bpm Height: 5'5" Respiratory Rate: 18 bpm SpO2: 98% Weight: 02/16/2018 Blood Pressure 1: 120/70 Code: 8480-6 BMI: 19.1 Code: 68829-3 Heart Rate 1: 115 bpm Height: 5'5" SpO2: 97% Weight: 115 lbs 12/30/2017 Blood Pressure 1: 100/68 Code: 8480-6 BMI: 18.3 Code: 05959-0 Heart Rate 1: 120 bpm Height: 5'5" SpO2: 94% Weight: 110 lbs 10/13/2017 Blood Pressure 1: 136/78 Code: 8480-6 BMI: 18.1 Code: 48237-0 Heart Rate 1: 126 bpm Height: 5'5" SpO2: 96% Weight: 109 lbs 07/12/2017 Blood Pressure 1: 100/56 Code: 8480-6 BMI: 18.1 Code: 78443-7 Heart Rate 1: 123 bpm Height: 5'5" SpO2: 99% Weight: 109 lbs 06/07/2017 Blood Pressure 1: 98/68 Code: 8480-6 BMI: 18.1 Code: 68228- 5 Heart Rate 1: 120 bpm Height: 5'5" SpO2: 99% Waist Measure (cm): 80 cm Weight: 109 lbs 05/24/2017 Blood Pressure 1: 104/62 Code: 8480-6 BMI: 18.1 Code: 53556-4 Heart Rate 1: 121 bpm Height: 5'5" SpO2: 97% Weight: 109 lbs 04/27/2017 Blood Pressure 1: 132/84 Code: 8480-6 BMI: 17.8 Code: 66568-1 Heart Rate 1: 129 bpm Height: 5'5" SpO2: 99% Weight: 107 lbs 04/13/2017 Blood Pressure 1: 10066 Code: 8480-6 Heart Rate 1: 120 bpm Height: 5'5" SpO2: 99% Weight: 03/30/2017 Blood Pressure 1: 112/66 Code: 8480-6 BMI: 17.8 Code: 07193-7 Heart Rate 1: 112 bpm Height: 5'5" SpO2: 98% Weight: 107 lbs 03/02/2017 Blood Pressure 1: 128/78 Code: 8480-6 BMI: 18.1 Code: 91000-9 Heart Rate 1: 86 bpm Height: 5'5" SpO2: 95% Weight: 109 lbs 08/30/2016 Blood Pressure 1: 102/60 Code: 8480-6 BMI: 18.1 Code: 32514-4 Heart Rate 1: 135 bpm Height: 5'5" SpO2: 98% Weight: 109 lbs 08/11/2016 Blood Pressure 1: 100/66 Code: 8480-6 BMI: 18.6 Code: 73822-2 Heart Rate 1: 86 bpm Height: 5'5" SpO2: 94% Weight: 112 lbs 06/01/2016 Blood Pressure 1: 126/80 Code: 8480-6 BMI: 19.0 Code: 39785-7 Heart Rate 1: 100 bpm Height: 5'5" SpO2: 98% Waist Measure (cm): 64 cm Weight: 114 lbs 04/16/2016 Blood Pressure 1: 124/80 Code: 8480-6 Heart Rate 1: 110 bpm SpO2: 97% 02/10/2016 Blood Pressure 1: 102/64 Code: 8480-6 BMI: 18.3 Code: 84588-3 Heart Rate 1: 114 bpm Height: 5'5" [...] Present Encounters Encounter Performer Location Codes Date ([id number]) [id number] EST. PATIENT, LEVEL IV Diagnosis: Unsteadiness on feet[ICD10: R26.81] Diagnosis: Other epilepsy, not intractable, without status epilepticus[ICD10: G40.802] Diagnosis: Muscle weakness (generalized)[ICD10: M62.81] [facility] CPT-4: 74699 08/21/2018 ([id number]) 50671 EST. PATIENT, LEVEL III Diagnosis: Cough[ICD10: R05] Diagnosis: Other epilepsy, not intractable, without status epilepticus[ICD10: G40.802] [facility] CPT-4: 76094 07/20/2018 ([id number]) 95146 EST. PATIENT, LEVEL III Diagnosis: Cough[ICD10: R05] Diagnosis: Acute upper respiratory infection, unspecified[ICD10: J06.9] [facility] MD, [facility] CPT-4: 52058 07/07/2018 ([id number]) 02012 EST. PATIENT, LEVEL IV Diagnosis: Unsteadiness on feet[ICD10: R26.81] Diagnosis: Other abnormalities of gait and mobility[ICD10: R26.89] Diagnosis: Mixed incontinence[ICD10: N39.46] Diagnosis: Other epilepsy, not intractable, without status epilepticus[ICD10: G40.802] [facility], [facility] CPT-4: 89578 05/22/2018 ([id number]) 62063 EST. PATIENT, LEVEL III Diagnosis: Right upper quadrant abdominal rigidity[ICD10: R19.31] Diagnosis: Functional diarrhea[ICD10: K59.1] Diagnosis: Calculus of gallbladder without cholecystitis without obstruction[ICD10: K80.20] [facility], [facility] CPT-4: 08399 04/04/2018 ([id number]) 31323 EST. PATIENT, LEVEL IV Diagnosis: Other epilepsy, not intractable, without status epilepticus[ICD10: G40.802] Diagnosis: Slow transit constipation[ICD10: K59.01] Diagnosis: Dysuria[ICD10: R30.0] Diagnosis: Age-related osteoporosis without current pathological fracture[ICD10: M81.0] [facility] MD, [facility] CPT-4: 83713 02/16/2018 ([id number]) 20960 EST. PATIENT, LEVEL III Diagnosis: Slow transit constipation[ICD10: K59.01] Mishel Z[facility]eda MD, [facility] CPT-4: 96457 12/30/2017 ([id number]) 92393 EST. PATIENT, LEVEL IV Diagnosis: Other epilepsy, not intractable, without status epilepticus[ICD10: G40.802] Diagnosis: Slow transit constipation[ICD10: K59.01] [facility], [facility] CPT-4: 75496 10/13/2017 ([id number]) 46869 EST. PATIENT, LEVEL III Diagnosis: Other epilepsy, not intractable, without status epilepticus[ICD10: G40.802] Diagnosis: Dysuria[ICD10: R30.0] Diagnosis: Mixed incontinence[ICD10: N39.46] [facility], [facility] CPT- 4: 73207 07/12/[id number]) 06790 EST. 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 PATIENT, LEVEL III Diagnosis: Other epilepsy, not intractable, without status epilepticus[ICD10: G40.802] [facility] MD, [facility] CPT-4: 39179 04/27/2017 [id number]) 87820 EST. 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 PATIENT, LEVEL IV Diagnosis: Calculus of gallbladder without cholecystitis without obstruction[ICD10: K80.20] Diagnosis: Benign paroxysmal vertigo, bilateral[ICD10: H81.13] Diagnosis: Slow transit constipation[ICD10: K59.01] [facility] MD, [facility] CPT-4: 23855 03/02/2017 ([id number]) 81439 EST. 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 PATIENT, LEVEL IV Diagnosis: Other epilepsy, not intractable, without status epilepticus[ICD10: G40.802] Diagnosis: Low back pain[ICD10: M54.5] Diagnosis: Pressure ulcer of sacral region, stage 1[ICD10: L89.151] Windy Zepeda MD, [facility] CPT-4: 25907 08/11/2016 ([id number]) 67752 EST. PATIENT, LEVEL III Diagnosis: Urinary tract infection, site not specified[ICD10: N39.0] Diagnosis: Slow transit constipation[ICD10: K59.01] Mishel Zepeda MD, [facility] CPT-4: 65373 04/16/2016 ([id number]) OFFICE VISIT, NEW - LEVEL 4 Diagnosis: Other abnormalities of gait and mobility[ICD10: R26.89] Diagnosis: Dysuria[ICD10: R30.0] Diagnosis: Rheumatoid arthritis without rheumatoid factor, multiple sites[ICD10: M06.09] [facility] MD, [facility] CPT-4: 17020 02/10/2016 Plan of Care Planned Activity Notes [...] elliptical to be used while seated. 08/21/2018 Patient Education: Patient Medication Summary Completed 08/21/2018 Appointment: Lab Draw 08/07/2018 Patient Education: Patient Medication Summary Completed 08/07/2018 Patient Education: Patient Medication Summary Completed 08/03/2018 Visit Plan: Seizures -increase dilantin -repeat dilantin level in 1 week [id number] cefdinir-finish abx and let us know if your symptoms do not resolve or if any worse 07/20/2018 Appointment: Mishel Wilson WPtel: [facility] [phone] (15 min) Moderate 07/20/2018 Patient Education: Patient Medication Summary Completed 07/20/2018 Visit Plan: URI -viral- Pt advised to increase fluids, vitamin C. Discussed natural and expected course of this diagnosis and need to alert me if symptoms do not follow expected course, or if any worse. RX sent to patient's pharmacy to start if needed. 07/07/2018 Appointment: Mishel Wilson WPtel: [facility] [phone] [place] (30 min) Complex 07/07/2018 Patient Education: Patient Medication Summary Completed 07/07/2018 Appointment: Magali Zepeda WPtel: [address] [place], [place] [phone] (15 min) Moderate 07/03/2018 Appointment: Lab Draw [...] the house. 05/22/2018 Appointment: Magali Zepeda WPtel: [address] [place], [place] [phone] [place] (15 min) Moderate 05/22/2018 Patient Education: Patient Medication Summary Completed 05/22/2018 Appointment: [phone] [place] ([facility] min) Moderate 05/15/2018 Visit [...] oversight post-operatively. 04/04/2018 Appointment: Magali Zepeda WPtel: [phone] [facility] (15 min) Moderate 04/04/2018 Patient Education: Patient Medication Summary Completed 04/04/2018 Patient Education: Diarrhea Completed 04/04/2018 Visit Plan: Epilepsy - chronic - continue with current regimen - check labs. Osteoporosis - pt is currently getting Prolia in [place], this is a big burden for her - They have asked for her to be set up for prolia for at the end of may at [address]- to call with specific date. Dysuria - UA - +leukocytes - start on keflex - rx sent to pharmacy. Chronic constipation - monitor symptoms. Continue with supportive care. 02/16/2018 Appointment: Magali Zepeda WPtel: [phone] [facility] [place] (15 min) Moderate 02/16/2018 Patient Education: [...] regimen. 12/30/2017 [id number] [place] (30 min) Complex 12/30/2017 Patient [...] regimen. 10/13/2017 Appointment: Magali Zepeda WPtel: [phone] [facility] [place] (15 min) Moderate 10/13/2017 Patient Education: Patient Medication Summary Completed 10/13/2017 Appointment: [place], Magali WPtel: [phone] [facility] [place] (15 min) Moderate 10/06/2017 Appointment: Lab [...] the urine specimen on accident 07/12/2017 Appointment: [place], Magali WPtel: [phone] [facility] [place] (15 min) Moderate 07/12/2017 Patient Education: Patient Medication Summary Completed 07/12/2017 Appointment: DuaneMathew petersony WPtel: [facility] [place] [place] ([facility] min) Moderate 07/05/2017 Visit [...] surrogate. 06/07/2017 Appointment: [phone] [place] - Annual Wellness Visit 06/07/2017 Patient Education: [...] week. 05/24/2017 Appointment: [facility]el[phone] (15 min) Moderate 05/24/2017 Patient Education: Patient Medication Summary Completed 05/24/2017 Appointment: [facility]eda [facility]Ptel[phone] (15 min) Moderate 05/11/2017 Visit Plan: [...] week) 04/27/2017 Appointment: [facility]el[phone] [place] (15 min) Moderate 04/27/2017 Patient Education: [...] monitor symptoms. 04/13/2017 Appointment: Mag[facility]eda [facility]Ptel[phone] [place] (15 min) Moderate 04/13/2017 Patient [...] treatment strategy. 03/30/2017 Appointment: [facility]epeda [facility]el[phone] [place] (15 min) Moderate 03/30/2017 Patient [...] 03/02/2017 Appointment: Magali Zepeda WPtel: [facility]5 [facility] (30 min) Complex 03/02/2017 Patient Education: Patient Medication Summary Completed 03/02/2017 Visit Plan: RA and Gait abnormality -continue with current treatments - supportive care Suspect some of her movement abnormalities may be due to her lamotrigine. 08/30/2016 Appointment: Magali Zepeda WPtel: [facility] [facility]5 [facility] (30 min) Complex 08/30/2016 Patient Education: Patient [...] Appointment: Windy Greco WPtel: [facility] [place] [facility] ([facility] min) Complex 08/11/2016 Patient [...] care surrogate. 06/01/2016 Appointment: Windy Greco WPtel: [facility] [place] - Annual Wellness Visit 06/01/2016 Patient [...] Appointment: Mishel Wilson WPtel: [facility] [phone] (15 min) Moderate 04/16/2016 Patient Education: Patient Medication Summary Completed 04/16/2016 Visit Plan: RA and Gait abnormality - recommended pt to have referral to physical therapy at [facility]. Suspect some of her movement abnormalities may be due to her lamotrigine. 02/10/2016 Appointment: Magali Zepeda WPtel: [facility] [address] New Patient 02/10/2016 Patient Education: Patient [...] - pt is currently getting Prolia in [place], this is a big burden for her [...] dilantin -repeat dilantin level in 1 week [id number] cefdinir-finish abx and let us know if [...] BRAND IS FINE: DAYAN LANG [facility], ALIGN sign release for labs from DR [...]
--- OUTSIDE RECORDS SUMMARY | 2018-12-30 22:42 | XMS REPORT | CCD ---
Author Author Magali Zepeda Organization Magali Zepeda MD, [facility] Address [address] [place] [address] Phone Care Team Providers Care Track Layer Name Role Phone PP Unavailable CCM Unavailable Summary Purpose Interface Exchange Insurance Providers Payer name Policy type / Coverage type Covered democrat ID Effective Begin Date Effective End Date WPS Medicare Part B Medicare Part B [id number] Unknown [employer] Medicare Part B [id number] Unknown Family history Sister Diagnosis Age At [...] Unknown Retired 02/10/[address]: 901868848 Never smoker 02/10/[address]: 216857057 Never drinks alcohol 02/10/2016 Has the patient [...] ICD-9: 786.2 ICD-10: R05 Active 07/07/2018 Unknown Other epilepsy, not intractable, without status epilepticus ICD-9: 345.10 ICD-10: G40.802 Active 08/11/2016 Unknown Acute upper respiratory infection, unspecified ICD-9: 465.9 ICD-10: J06.9 Active 07/07/2018 Unknown Mixed incontinence ICD- 9: 788.33 ICD-10: N39.46 Active 07/12/2017 Unknown Other abnormalities of gait and mobility ICD-9: 781.2 ICD-10: R26.89 Active 02/09/2016 Unknown Unsteadiness on feet ICD- 9: 781.2 ICD-10: R26.81 Active 04/13/2017 Unknown Calculus [...] Cough ICD-9: 786.2 ICD-10: R05 07/07/2018 Active Other epilepsy, not intractable, without status epilepticus ICD-9: 345.10 ICD-10: G40.802 08/11/2016 Active Acute upper respiratory infection, unspecified ICD-9: 465.9 ICD-10: J06.9 07/07/2018 Active Mixed incontinence ICD- 9: 788.33 ICD-10: N39.46 07/12/2017 Active Other abnormalities of gait and mobility ICD-9: 781.2 ICD-10: R26.89 02/09/2016 Active Unsteadiness on feet ICD- 9: 781.2 ICD-10: R26.81 04/13/2017 Active Calculus of [...] Instructions doxycycline hyclate 100 mg tablet RxNorm: 4466474 1 Tablet(s) PO BID 08/16/2018 08/25/2018 Active dc keflex doxycycline hyclate 100 mg tablet RxNorm: 9524268 1 Tablet(s) PO BID 08/16/2018 08/15/2018 Inactive dc keflex lamotrigine 150 mg tablet RxNorm: 407559 TAKE 1 TABLET BY MOUTH AT BEDTIME 08/14/2018 No Stop Date Active Keflex 500 mg capsule RxNorm: 704379 1 Capsule(s) PO TID and probiotic bid x7 08/14/2018 08/15/2018 Inactive Keflex 500 mg capsule RxNorm: 095089 1 Capsule(s) PO TID and probiotic bid x7 08/14/2018 08/13/2018 Inactive Zithromax Z-Escobar 250 mg tablet RxNorm: 151745 2 po on first dose and 1 daily Tablet(s) PO 07/27/2018 No Stop Date Active zpack x 1 Mucinex 600 mg tablet, extended release RxNorm: 854696 1 Tablet(s) PO BID 07/27/2018 07/26/2018 Inactive Mucinex 600 mg tablet, extended release RxNorm: 039456 1 Tablet(s) PO BID 07/27/2018 08/09/2018 Inactive Dilantin Extended 100 mg capsule RxNorm: 453145 Capsule(s) TAKE 1 CAP TID ON Tue/ AND 1 CAPSULE QID other days. 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 if having symptoms of seizure activity, take an extra pill 05/29/2018 07/19/2018 Inactive Dilantin Extended 100 mg capsule RxNorm: 937033 Capsule(s) TAKE 1 CAP TID x2 DAYS, THEN 1 CAPSULE qid x2 DAYs, THEN REPEAT CYCLE. if having symptoms of seizure activity, take an extra pill 05/22/2018 05/28/2018 Inactive lamotrigine 150 mg tablet RxNorm: 845387 TAKE 1 TABLET BY MOUTH AT BEDTIME 04/17/2018 08/13/2018 Inactive Dilantin Extended 100 mg capsule RxNorm: 318537 TAKE 1 CAPSULE BY MOUTH THREE TIMES DAILY FOR 3 DAYS, THEN 1 CAPSULE FOUR TIMES DAILY FOR 1 DAY, THEN REPEAT CYCLE. 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 Dilantin Extended 100 mg capsule RxNorm: 632917 Capsule(s) PO UD 1 cap TID x 3 days then 1 cap qid x 1 day then repeat cycle 12/15/2017 04/11/2018 Inactive give 1 month supply lamotrigine 150 mg tablet RxNorm: 897924 1 Tablet(s) PO QHS 12/07/2017 04/05/2018 Inactive lamotrigine 100 mg tablet RxNorm: 599844 1 Tablet(s) PO QAM 12/07/2017 03/30/2018 Inactive Levaquin 500 mg tablet RxNorm: 586724 1 Tablet(s) PO daily 12/05/2017 12/11/2017 Inactive Keflex 500 mg capsule RxNorm: 781790 1 Capsule(s) PO TID 11/14/2017 11/20/2017 Inactive Keflex 500 mg capsule RxNorm: 865071 1 Capsule(s) PO TID 11/14/2017 11/13/2017 Inactive Dilantin Extended 100 mg capsule RxNorm: 762046 Capsule(s) PO UD m3pill/tue3 pill/wed 4 pill/ thur 2pill/fri 3pill/sat 4pill/sun 3 pill 10/13/2017 12/14/2017 Inactive Dilantin Extended 100 mg capsule RxNorm: 881234 Capsule(s) PO UD -Alternate 300 mg for two days in a row and then 400 mg for one day and repeat cycle 10/04/2017 10/12/2017 Inactive Augmentin 500 mg-125 mg tablet RxNorm: 367897 1 Tablet(s) PO TID 07/15/2017 07/14/2017 Inactive Augmentin 500 mg-125 mg tablet RxNorm: 848139 1 Tablet(s) PO TID 07/15/2017 07/21/2017 Inactive Dilantin Extended 100 mg capsule RxNorm: 274851 1 Capsule(s) PO daily -Alternate 300 mg and 400 mg every other day 06/07/2017 10/03/2017 Inactive Bactrim DS 800 mg-160 mg tablet RxNorm: 549084 1 Tablet(s) PO BID 05/02/2017 05/08/2017 Inactive Dilantin Extended 100 mg capsule RxNorm: 042084 1 Capsule(s) PO daily in the afternoon and 2 Capsules PO HS- Will take an additional pill if she has a lot of jerking 04/27/2017 06/06/2017 Inactive Keflex 500 mg capsule RxNorm: 848539 1 Capsule(s) PO TID 04/19/2017 04/23/2017 Inactive dicyclomine 10 mg capsule RxNorm: 506805 1 Capsule(s) PO BID as needed 03/30/2017 05/28/2017 Inactive Senna with Docusate Sodium 8.6 mg-50 mg tablet RxNorm: 130871 1 Tablet(s) PO BID as needed constipation 03/02/2017 07/29/2017 Inactive Keflex 500 mg capsule RxNorm: 040816 1 Capsule(s) PO TID 08/11/2016 08/20/2016 Inactive Levaquin 500 mg tablet RxNorm: 288119 1 Tablet(s) PO daily 04/16/2016 04/22/2016 Inactive ciprofloxacin 500 mg tablet RxNorm: 608925 1 Tablet(s) PO BID 02/10/2016 02/16/2016 Inactive prednisone 10 mg tablet RxNorm: 505411 1 Tablet(s) PO as needed for pain No Start Date Active Prolia 60 mg/mL subcutaneous syringe RxNorm: 005146 1 injection SQ Q6 months No Start Date Active lamotrigine 150 mg tablet RxNorm: 619447 1 Tablet(s) PO QHS No Start Date 12/06/2017 Inactive lamotrigine 100 mg tablet RxNorm: 580421 1 Tablet(s) PO QAM No Start Date 12/06/2017 Inactive Dilantin Extended 100 mg capsule RxNorm: 380574 Capsule(s) PO TAKES FOUR CAPSULES FOR 2 DAYS, THEN THREE CAPSULES FOR 1 DAY, THEN REPEATS No Start Date 04/26/2017 Inactive Zithromax Z-Escobar 250 mg tablet RxNorm: 712488 2 po on first dose and 1 daily Tablet(s) PO No Start Date 07/26/2018 Inactive zpack x 1 Humira 20 mg/0.4 mL subcutaneous syringe kit RxNorm: 591160 1 injection SQ every 2 weeks- Prescribed by Dr. Baker No Start Date 05/23/2017 Inactive Medication Administered No Medication Administered data Immunizations No Immunization data Assessments Condition Codes Effective Dates Dysuria ICD-10: R30.0 ICD-9: 788.1 08/07/2018 Generalized idiopathic epilepsy and epileptic syndromes, not intractable, with status epilepticus ICD-10: G40.301 ICD-9: 345.3 08/03/2018 Other epilepsy, not intractable, without status epilepticus ICD- 10: G40.802 ICD-9: 345.10 07/20/2018 Cough ICD-10: R05 ICD-9: 786.2 07/20/2018 Acute upper respiratory infection, unspecified ICD-10: J06.9 ICD-9: 465.9 07/07/2018 Unsteadiness on feet ICD-10: R26.81 ICD-9: 781.2 [...] Visit Reason For Visit Effective Dates Notes Hospital Follow Up 07/20/2018 cough 07/07/2018 muscle [...] Ord7 DILANTIN 10.5 UG/ML 05/11/2018 Comp Metabolic Fvs201 NA 138 mEq/L 05/11/2018 Comp Metabolic Dpn211 K 4.0 mEq/L 05/11/2018 Comp Metabolic Agi554 CL 100 mEq/L 05/11/2018 Comp Metabolic Kyp513 CO2 29.0 mEq/L 05/11/2018 Comp Metabolic Zld981 ANION GAP 13 05/11/2018 Comp Metabolic Lmd840 GLUCOSE 84 mg/dL 05/11/2018 Comp Metabolic Nim847 Creat 0.8 mg/dL 05/11/2018 Comp Metabolic Jkp959 eGFR 77 ml/min/1.73m2 05/11/2018 Comp Metabolic Qdy782 BUN 26 mg/dL 05/11/2018 Comp Metabolic Zru506 B/C Ratio 33.3 Ratio 05/11/2018 Comp Metabolic Cvx659 CALCIUM 9.1 mg/dL 05/11/2018 Comp Metabolic Ken794 ALK PHOS 97 U/L 05/11/2018 Comp Metabolic Eeq431 AST(SGOT) 14 U/L 05/11/2018 Comp Metabolic Sdh009 ALT(SGPT) 7 U/L 05/11/2018 Comp Metabolic Xyd247 BILI T 0.3 mg/dL 05/11/2018 Comp Metabolic Ohz463 ALBUMIN 3.6 g/dL 05/11/2018 Comp Metabolic Vas232 TPRO 6.9 g/dL 05/11/2018 Comp Metabolic Jbx927 GLOB 3.3 g/dL 05/11/2018 Comp Metabolic Vhu622 A/G Ratio 1.1 Ratio 05/11/2018 Comp Metabolic Xgb882 Osmo 280 mOsmo 05/11/2018 Dilantin Ord7 DILANTIN 10.7 UG/ML 04/25/2018 Valproic Acid Tjq813 VALPROIC <10 ug/ml 04/24/2018 Dilantin Ord7 DILANTIN 10.6 UG/ML 04/11/2018 Culture Urine [id number] URINE CULTURE SEE NOTES 02/20/2018 Culture Urine [id number] Continued Results 02/20/2018 Urine Culture Ucult Complete >100,000 col/ml aerobic growth sent to ref lab 02/17/2018 Dilantin Ord7 DILANTIN 14.4 UG/ML 02/16/2018 Comp Metabolic And723 NA 135 mEq/L 02/16/2018 Comp Metabolic Gsc059 K 3.8 mEq/L 02/16/2018 Comp Metabolic Kbz035 CL 99 mEq/L 02/16/2018 Comp Metabolic Krg715 CO2 28.0 mEq/L 02/16/2018 Comp Metabolic Qfs324 ANION GAP 12 02/16/2018 Comp Metabolic Bnh667 GLUCOSE 101 mg/dL 02/16/2018 Comp Metabolic Gfk180 Creat 0.8 mg/dL 02/16/2018 Comp Metabolic Myv883 eGFR 75 ml/min/1.73m2 02/16/2018 Comp Metabolic Ojr961 BUN 20 mg/dL 02/16/2018 Comp Metabolic Uea966 B/C Ratio 25.0 Ratio 02/16/2018 Comp Metabolic Xke856 CALCIUM 8.9 mg/dL 02/16/2018 Comp Metabolic Lls441 ALK PHOS 95 U/L 02/16/2018 Comp Metabolic Cqy216 AST(SGOT) 13 U/L 02/16/2018 Comp Metabolic Edm684 ALT(SGPT) 7 U/L 02/16/2018 Comp Metabolic Mjx326 BILI T 0.4 mg/dL 02/16/2018 Comp Metabolic Dov136 ALBUMIN 3.6 g/dL 02/16/2018 Comp Metabolic Nme517 TPRO 7.2 g/dL 02/16/2018 Comp Metabolic Prb551 GLOB 3.6 g/dL 02/16/2018 Comp Metabolic Qqb542 A/G Ratio 1.0 Ratio 02/16/2018 Comp Metabolic Fly009 Osmo 273 mOsmo 02/16/2018 Urine Culture Ucult Complete >100,000 col/ml aerobic growth sent to ref lab 11/15/2017 Comp Metabolic Vrp796 NA 136 mEq/L 10/13/2017 Comp Metabolic Ifj312 K 4.0 mEq/L 10/13/2017 Comp Metabolic Kyo502 CL 98 mEq/L 10/13/2017 Comp Metabolic Boq328 CO2 28.0 mEq/L 10/13/2017 Comp Metabolic Imi898 ANION GAP 14 10/13/2017 Comp Metabolic Vns879 GLUCOSE 94 mg/dL 10/13/2017 Comp Metabolic Thh370 Creat 0.7 mg/dL 10/13/2017 Comp Metabolic Dhe337 eGFR 82 ml/min/1.73m2 10/13/2017 Comp Metabolic Vep176 BUN 26 mg/dL 10/13/2017 Comp Metabolic Jms499 B/C Ratio 35.1 Ratio 10/13/2017 Comp Metabolic Yit584 CALCIUM 9.1 mg/dL 10/13/2017 Comp Metabolic Uas636 ALK PHOS 98 U/L 10/13/2017 Comp Metabolic Egy863 AST(SGOT) 15 U/L 10/13/2017 Comp Metabolic Vqq005 ALT(SGPT) 8 U/L 10/13/2017 Comp Metabolic Yay706 BILI T 0.4 mg/dL 10/13/2017 Comp Metabolic Lth508 ALBUMIN 3.7 g/dL 10/13/2017 Comp Metabolic Zry346 TPRO 7.8 g/dL 10/13/2017 Comp Metabolic Pny732 GLOB 4.1 g/dL 10/13/2017 Comp Metabolic Svo806 A/G Ratio 0.9 Ratio 10/13/2017 Comp Metabolic Tgd947 Osmo 276 mOsmo 10/13/2017 Dilantin Ord7 DILANTIN 21.4 Result Verified By Repeat Analysis UG/ML 10/13/2017 Dilantin Ord7 DILANTIN 24.1 Result Verified By Repeat Analysis UG/ML 10/03/2017 Dilantin Ord7 DILANTIN 18.1 UG/ML 06/30/2017 Dilantin Ord7 DILANTIN 22.7 UG/ML 06/16/2017 Dilantin Ord7 DILANTIN 26.1 UG/ML 06/07/2017 Dilantin Ord7 DILANTIN 24.1 UG/ML 05/24/2017 Dilantin Ord7 DILANTIN 19.6 UG/ML 05/11/2017 Culture Urine [id number] URINE CULTURE SEE NOTES 05/06/2017 Culture Urine [id number] Continued Results 05/06/2017 Urine Culture Ucult Complete >100,000 col/ml aerobic growth sent to ref lab 05/03/2017 Dilantin Ord7 DILANTIN 12.6 UG/ML 04/27/2017 Calcium Ord79 CALCIUM 9.3 mg/dL 04/19/2017 Dilantin Ord7 DILANTIN 21.6 UG/ML 04/19/2017 Dilantin Ord7 DILANTIN 10.3 UG/ML 04/13/2017 Dilantin Ord7 DILANTIN 21.9 UG/ML 04/07/2017 Comp Metabolic Vbo942 NA 137 mEq/L 03/30/2017 Comp Metabolic Sll724 K 3.7 mEq/L 03/30/2017 Comp Metabolic Jhw598 CL 98 mEq/L 03/30/2017 Comp Metabolic Mcw925 CO2 29.0 mEq/L 03/30/2017 Comp Metabolic Whp413 ANION GAP 14 03/30/2017 Comp Metabolic Kjb154 GLUCOSE 100 mg/dL 03/30/2017 Comp Metabolic Zyy751 Creat 0.9 mg/dL 03/30/2017 Comp Metabolic Ymf043 eGFR 88 ml/min/1.73m2 03/30/2017 Comp Metabolic Xfh159 BUN 22 mg/dL 03/30/2017 Comp Metabolic Pzn826 B/C Ratio 24.4 Ratio 03/30/2017 Comp Metabolic Aqt797 CALCIUM 9.4 mg/dL 03/30/2017 Comp Metabolic Axc255 ALK PHOS 113 U/L 03/30/2017 Comp Metabolic Mbl055 AST(SGOT) 16 U/L 03/30/2017 Comp Metabolic Xpo619 ALT(SGPT) 7 U/L 03/30/2017 Comp Metabolic Jux079 BILI T 0.3 mg/dL 03/30/2017 Comp Metabolic Jqy578 ALBUMIN 3.9 g/dL 03/30/2017 Comp Metabolic Lnx989 TPRO 8.0 g/dL 03/30/2017 Comp Metabolic Kkj545 GLOB 4.1 g/dL 03/30/2017 Comp Metabolic Bnd058 A/G Ratio 0.9 Ratio 03/30/2017 Comp Metabolic Tla574 Osmo 277 mOsmo 03/30/2017 Lipid Ord30 CHOL 214 mg/dL 03/30/2017 Lipid Ord30 HDL 61.0 mg/dl 03/30/2017 Lipid Ord30 TRIG 130 mg/dL 03/30/2017 Lipid Ord30 LDL 127 mg/dL 03/30/2017 Lipid Ord30 C/HDL 3.5 Ratio 03/30/2017 Dilantin Ord7 DILANTIN 32.5 UG/ML 03/30/2017 Folate Ord36 Folate 16.46 ng/mL 03/30/2017 Tsh Ord6 hTSH II 0.95 uIU/mL 03/30/2017 B12 Pwi249 B12 592.00 pg/ml 03/30/2017 Cbc With Differential [...] 30.9 pg 03/30/2017 Cbc With Differential Ord2 [place]% 23.9 % 03/30/2017 Cbc With Differential Ord2 [...] 0.44 K/ul 03/30/2017 Cbc With Differential Ord2 [place] ABS# 0.3 K/ul 03/30/2017 Cbc With Differential [...] 30.3 pg 08/11/2016 Cbc With Differential Ord2 [place]% 31.7 % 08/11/2016 Cbc With Differential Ord2 [...] 0.59 K/ul 08/11/2016 Cbc With Differential Ord2 [place] ABS# 0.6 K/ul 08/11/2016 Cbc With Differential Ord2 Eos ABS# 0.0 K/ul 08/11/2016 Cbc With Differential Ord2 Baso ABS# 0.0 K/ul 08/11/2016 Dilantin Ord7 DILANTIN 17.2 UG/ML 08/11/2016 Tsh Ord6 hTSH II 0.82 uIU/mL 08/11/2016 Comp Metabolic Vdq778 NA 131 mEq/L 08/11/2016 Comp Metabolic Jex622 K 4.1 mEq/L 08/11/2016 Comp Metabolic Wod978 CL 93 mEq/L 08/11/2016 Comp Metabolic Wun085 CO2 29.0 mEq/L 08/11/2016 Comp Metabolic Hce081 ANION GAP 13 08/11/2016 Comp Metabolic Kei030 GLUCOSE 120 mg/dL 08/11/2016 Comp Metabolic Hos412 Creat 0.8 mg/dL 08/11/2016 Comp Metabolic Pwo805 eGFR 101 ml/min/1.73m2 08/11/2016 Comp Metabolic Kxw546 BUN 18 mg/dL 08/11/2016 Comp Metabolic Rie713 B/C Ratio 22.5 Ratio 08/11/2016 Comp Metabolic Vsv584 CALCIUM 9.5 mg/dL 08/11/2016 Comp Metabolic Zjh336 ALK PHOS 104 U/L 08/11/2016 Comp Metabolic Duu321 AST(SGOT) 16 U/L 08/11/2016 Comp Metabolic Ktp152 ALT(SGPT) 8 U/L 08/11/2016 Comp Metabolic Igp173 BILI T 0.4 mg/dL 08/11/2016 Comp Metabolic Ngy742 ALBUMIN 3.8 g/dL 08/11/2016 Comp Metabolic Twr780 TPRO 8.4 g/dL 08/11/2016 Comp Metabolic Wmv034 GLOB 4.6 g/dL 08/11/2016 Comp Metabolic Dox488 A/G Ratio 0.8 Ratio 08/11/2016 Comp Metabolic Xly151 Osmo 266 mOsmo 08/11/2016 Culture Urine [id number] URINE CULTURE SEE NOTES 04/19/2016 Culture Urine [id number] Continued Results 04/19/2016 Urine Culture Ucult Complete >100,000 col/ml aerobic growth sent to ref lab 04/17/2016 Culture Urine [id number] URINE CULTURE SEE NOTES 02/13/2016 Culture Urine [id number] Continued Results 02/13/2016 Urine Culture Ucult Complete >100,000 col/ml aerobic growth sent to ref lab 02/11/2016 Dilantin Ord7 DILANTIN 19.2 UG/ML 02/10/2016 Review of Systems System Result Effective Dates Constitutional recent illness 07/20/2018 Constitutional anorexia 07/20/2018 [...] Codes Date URINALYSIS NONAUTO W/O SCOPE CPT-4: 58035 08/07/2018 URINALYSIS NONAUTO W/O SCOPE CPT-4: 10924 06/12/2018 URINALYSIS NONAUTO W/O SCOPE CPT-4: 73662 02/16/2018 URINALYSIS NONAUTO W/O SCOPE CPT-4: 07263 11/14/2017 PPPS, SUBSEQ VISIT CPT- 4: G0439 06/07/2017 URINALYSIS NONAUTO W/O SCOPE CPT-4: 83273 05/02/2017 URINALYSIS NONAUTO W/O SCOPE CPT-4: 54291 04/26/2017 PPPS, SUBSEQ VISIT CPT- 4: G0439 06/01/2016 URINALYSIS NONAUTO W/O SCOPE CPT-4: 26534 04/16/2016 URINALYSIS NONAUTO W/O SCOPE CPT-4: 97950 02/10/2016 Vital Signs Date Vital 07/20/2018 Blood Pressure 1: 104/60 Code: 8480-6 Heart Rate 1: 122 bpm Height: 5'5" SpO2: 94% Temperature: 36.7 (C) / 98.1 (F) Weight: 07/07/2018 Blood Pressure 1: 110/62 Code: 8480-6 BMI: 18.8 Code: 19189-2 Heart Rate 1: 67 bpm Height: 5'5" Temperature: 36.8 (C) / 98.2 (F) Weight: 113 lbs 05/22/2018 Blood Pressure 1: 112/68 Code: 8480-6 BMI: 18.6 Code: 00038-0 Heart Rate 1: 128 bpm Height: 5'5" SpO2: 98% Weight: 112 lbs 04/04/2018 Blood Pressure 1: 94/52 Code: 8480-6 Heart Rate 1: 120 bpm Height: 5'5" Respiratory Rate: 18 bpm SpO2: 98% Weight: 02/16/2018 Blood Pressure 1: 120/70 Code: 8480-6 BMI: 19.1 Code: 48031-8 Heart Rate 1: 115 bpm Height: 5'5" SpO2: 97% Weight: 115 lbs 12/30/2017 Blood Pressure 1: 100/68 Code: 8480-6 BMI: 18.3 Code: 28833-7 Heart Rate 1: 120 bpm Height: 5'5" SpO2: 94% Weight: 110 lbs 10/13/2017 Blood Pressure 1: 136/78 Code: 8480-6 BMI: 18.1 Code: 80088-1 Heart Rate 1: 126 bpm Height: 5'5" SpO2: 96% Weight: 109 lbs 07/12/2017 Blood Pressure 1: 100/56 Code: 8480-6 BMI: 18.1 Code: 13833-5 Heart Rate 1: 123 bpm Height: 5'5" SpO2: 99% Weight: 109 lbs 06/07/2017 Blood Pressure 1: 98/68 Code: 8480-6 BMI: 18.1 Code: 54161- 5 Heart Rate 1: 120 bpm Height: 5'5" SpO2: 99% Waist Measure (cm): 80 cm Weight: 109 lbs 05/24/2017 Blood Pressure 1: 104/62 Code: 8480-6 BMI: 18.1 Code: 30633-9 Heart Rate 1: 121 bpm Height: 5'5" SpO2: 97% Weight: 109 lbs 04/27/2017 Blood Pressure 1: 132/84 Code: 8480-6 BMI: 17.8 Code: 15152-3 Heart Rate 1: 129 bpm Height: 5'5" SpO2: 99% Weight: 107 lbs 04/13/2017 Blood Pressure 1: 100/66 Code: 8480-6 Heart Rate 1: 120 bpm Height: 5'5" SpO2: 99% Weight: 03/30/2017 Blood Pressure 1: 112/66 Code: 8480-6 BMI: 17.8 Code: 42078-9 Heart Rate 1: 112 bpm Height: 5'5" SpO2: 98% Weight: 107 lbs 03/02/2017 Blood Pressure 1: 128/78 Code: 8480-6 BMI: 18.1 Code: 47638-8 Heart Rate 1: 86 bpm Height: 5'5" SpO2: 95% Weight: 109 lbs 08/30/2016 Blood Pressure 1: 102/60 Code: 8480-6 BMI: 18.1 Code: 82438-0 Heart Rate 1: 135 bpm Height: 5'5" SpO2: 98% Weight: 109 lbs 08/11/2016 Blood Pressure 1: 100/66 Code: 8480-6 BMI: 18.6 Code: 11805-4 Heart Rate 1: 86 bpm Height: 5'5" SpO2: 94% Weight: 112 lbs 06/01/2016 Blood Pressure 1: 126/80 Code: 8480-6 BMI: 19.0 Code: 49232-5 Heart Rate 1: 100 bpm Height: 5'5" SpO2: 98% Waist Measure (cm): 64 cm Weight: 114 lbs 04/16/2016 Blood Pressure 1: 124/80 Code: 8480-6 Heart Rate 1: 110 bpm SpO2: 97% 02/10/2016 Blood Pressure 1: 102/64 Code: 8480-6 BMI: 18.3 Code: 37508-4 Heart Rate 1: 114 bpm Height: 5'5" SpO2: 98% Weight: 110 lbs Functional Status No Functional Status data History of Present Illness Symptom Name Status Result Effective Date Notes _ infection 07/20/2018 None _ Other: fall [...] Encounters Encounter Performer Location Codes Date ( EST. PATIENT, LEVEL III Diagnosis: Cough[ICD10: R05] Diagnosis: Other epilepsy, not intractable, without status epilepticus[ICD10: G40.802] Mishel Zepeda MD, [facility] CPT-4: 96764 07/20/2018 ([id number]) [id number] EST. PATIENT, LEVEL III Diagnosis: Cough[ICD10: R05] Diagnosis: Acute upper respiratory infection, unspecified[ICD10: J06.9] Mishel Zepeda MD, [facility] CPT-4: 75503 07/07/[id number] [id number] EST. PATIENT, LEVEL IV Diagnosis: Unsteadiness on feet[ICD10: R26.81] Diagnosis: Other abnormalities of gait and mobility[ICD10: R26.89] Diagnosis: Mixed incontinence[ICD10: N39.46] Diagnosis: Other epilepsy, not intractable, without status epilepticus[ICD10: G40.802] Magali Zepeda MD, [facility] CPT-4: 67296 05/22/2018 [id number]) [id number] EST. PATIENT, LEVEL III Diagnosis: Right upper quadrant abdominal rigidity[ICD10: R19.31] Diagnosis: Functional diarrhea[ICD10: K59.1] Diagnosis: Calculus of gallbladder without cholecystitis without obstruction[ICD10: K80.20] Magali Zepeda MD, [facility] CPT-4: 21396 04/04/2018 [id number]) [id number] EST. PATIENT, LEVEL IV Diagnosis: Other epilepsy, not intractable, without status epilepticus[ICD10: G40.802] Diagnosis: Slow transit constipation[ICD10: K59.01] Diagnosis: Dysuria[ICD10: R30.0] Diagnosis: Age-related osteoporosis without current pathological fracture[ICD10: M81.0] Magali Zepeda MD, [facility] CPT-4: 92674 02/16/2018 [id number]) [id number] EST. PATIENT, LEVEL III Diagnosis: Slow transit constipation[ICD10: K59.01] Mishel Zepeda MD, [facility] CPT-4: 44538 12/30/2017 ([id number]) [id number] EST. PATIENT, LEVEL IV Diagnosis: Other epilepsy, not intractable, without status epilepticus[ICD10: G40.802] Diagnosis: Slow transit constipation[ICD10: K59.01] Magali Zepeda MD [facility] CPT-4: 36826 10/13/2017 ([id number]) [id number] EST. PATIENT, LEVEL III Diagnosis: Other epilepsy, not intractable, without status epilepticus[ICD10: G40.802] Diagnosis: Dysuria[ICD10: R30.0] Diagnosis: Mixed incontinence[ICD10: N39.46] Magali Zepeda MD, [facility] CPT- 4: 72553 07/12/2017 ([id number]) [id number] EST. 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 PATIENT, LEVEL III Diagnosis: Other epilepsy, not intractable, without status epilepticus[ICD10: G40.802] Magali Zepeda MD, [facility] CPT-4: 81246 04/27/2017 ([id number]) [id number] EST. 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 PATIENT, LEVEL IV Diagnosis: Calculus of gallbladder without cholecystitis without obstruction[ICD10: K80.20] Diagnosis: Benign paroxysmal vertigo, bilateral[ICD10: H81.13] Diagnosis: Slow transit constipation[ICD10: K59.01] Magali Zepeda MD, [facility] CPT-4: 37204 03/02/2017 ([id number]) [id number] EST. PATIENT, LEVEL IV Diagnosis: Rheumatoid arthritis without rheumatoid factor, multiple sites[ICD10: M06.09] Diagnosis: Generalized idiopathic epilepsy and epileptic syndromes, not intractable, with status epilepticus[ICD10: G40.301] Magali Zepeda MD, [facility] CPT-4: 16569 08/30/2016 [id number] EST. PATIENT, LEVEL IV Diagnosis: Other epilepsy, not intractable, without status epilepticus[ICD10: G40.802] Diagnosis: Low back pain[ICD10: M54.5] Diagnosis: Pressure ulcer of sacral region, stage 1[ICD10: L89.151] Windy Zepeda MD, [facility] CPT-4: 68388 08/11/2016 ([id number]) [id number] EST. PATIENT, LEVEL III Diagnosis: Urinary tract infection, site not specified[ICD10: N39.0] Diagnosis: Slow transit constipation[ICD10: K59.01] Mishel Zepeda MD, [facility] CPT-4: 48120 04/16/2016 ([id number]) OFFICE VISIT, NEW - LEVEL 4 Diagnosis: Other abnormalities of gait and mobility[ICD10: R26.89] Diagnosis: Dysuria[ICD10: R30.0] Diagnosis: Rheumatoid arthritis without rheumatoid factor, multiple sites[ICD10: M06.09] Magali Zepeda MD, [facility] CPT-4: 75856 02/10/2016 Plan of Care Planned Activity Notes Codes Status Date Appointment: Lab Draw 08/07/2018 Patient Education: Patient Medication Summary Completed 08/07/2018 Patient Education: Patient Medication Summary Completed 08/03/2018 Visit Plan: Seizures -increase dilantin -repeat dilantin level in 1 week [id number] cefdinir-finish abx and let us know if your symptoms do not resolve or if any worse 07/20/2018 Appointment: Mishel Wilson WPtel: [phone] [phone] [place] (15 min) Moderate 07/20/2018 Patient Education: Patient Medication Summary Completed 07/20/2018 Visit Plan: URI -viral- Pt advised to increase fluids, vitamin C. Discussed natural and expected course of this diagnosis and need to alert me if symptoms do not follow expected course, or if any worse. RX sent to patient's pharmacy to start if needed. 07/07/2018 Appointment: Mishel Wilson WPtel: [phone] [place] (30 min) Complex 07/07/2018 Patient Education: Patient Medication Summary Completed 07/07/2018 Appointment: Magali Zepeda WPtel: [facility]8 [facility] [place] (15 min) Moderate 07/03/2018 Appointment: Lab [...] house. 05/22/2018 Appointment: Magali Zepeda WPtel: [phone] [facility] [place] (15 min) Moderate 05/22/2018 Patient Education: Patient Medication Summary Completed 05/22/2018 Appointment: Magali Zepeda WPtel: [facility]8 [facility] [place] (15 min) Moderate 05/15/2018 Visit Plan: [...] gallbladder. 04/04/2018 Appointment: Magali Zepeda WPtel: [phone] [facility] (15 min) Moderate 04/04/2018 Patient Education: Patient Medication Summary Completed 04/04/2018 Patient Education: Diarrhea Completed 04/04/2018 Visit Plan: Epilepsy - chronic - continue with current regimen - check labs. Osteoporosis - pt is currently getting Prolia in [place], this is a big burden for her - They have asked for her to be set up for prolia for at the end of may at [address]- to call with specific date. Dysuria - UA - +leukocytes - start on keflex - rx sent to pharmacy. Chronic constipation - monitor symptoms. Continue with supportive care. 02/16/2018 Appointment: Magali Zepeda WPtel: [phone] [phone] (15 min) Moderate 02/16/2018 Patient Education: Patient [...] regimen. 12/30/2017 Appointment: Mishel Wilson WPtel: [phone] [phone] [place] (30 min) Complex 12/30/2017 [...] Appointment: Magali Zepeda WPtel: [phone] [facility] (15 min) Moderate 10/13/2017 Patient Education: Patient Medication Summary Completed 10/13/2017 Appointment: Magali Zepeda WPtel: [phone] [facility] (15 min) Moderate 10/06/2017 Appointment: Lab Draw [...] accident 07/12/2017 [phone] [place] (15 min) Moderate 07/12/2017 Patient Education: Patient Medication Summary Completed 07/12/2017 Appointment: Magali Zepeda WPtel: [facility] (15 min) Moderate 07/05/2017 Visit Plan: [...] care surrogate. 06/07/2017 Appointment: Windy Greco WPtel: [facility] [facility] - Annual Wellness Visit 06/07/2017 [...] per week. 05/24/2017 Appointment: Magali Zepeda WPtel: [facility] (15 min) Moderate 05/24/2017 Patient Education: Patient Medication Summary Completed 05/24/2017 Appointment: Mag[facility]epeda WPtel: [phone] [facility] (15 min) Moderate 05/11/2017 Visit Plan: [...] week) 04/27/2017 Appointment: Mag[facility]epeda [facility]Ptel[phone] [facility] (15 min) Moderate 04/27/2017 Patient Education: [...] monitor symptoms. 04/13/2017 Appointment: Magali Zepeda WPtel: [facility] [place] (15 min) Moderate 04/13/2017 Patient [...] strategy. 03/30/2017 Appointment: Mag[facility]epeda WPtel: [phone] [facility] [place] (15 min) Moderate 03/30/2017 Patient [...] constipation. 03/02/2017 Appointment: [facility]epeda [facility]Ptel: [phone] [facility] (30 min) Complex 03/02/2017 Patient Education: Patient Medication Summary Completed 03/02/2017 Visit Plan: RA and Gait abnormality -continue with current treatments - supportive care Suspect some of her movement abnormalities may be due to her lamotrigine. 08/30/2016 Appointment: Magali Zepeda WPtel: [facility] [place] (30 min) Complex 08/30/2016 Patient Education: [...] discharge. 08/11/2016 Appointment: Wind[facility] Greco [facility]Ptel: [phone] [facility] [place] (30 min) Complex 08/11/2016 Patient Education: [...] care surrogate. 06/01/2016 Appointment: Windy Greco WPtel: [facility] - Annual Wellness Visit 06/01/2016 Patient [...] this regimen. 04/16/2016 Appointment: Mishel Wilson WPtel: [facility] [place] [phone] (15 min) Moderate 04/16/2016 Patient Education: Patient Medication Summary Completed 04/16/2016 Visit Plan: RA and Gait abnormality - recommended pt to have referral to physical therapy at [facility]. Suspect some of her movement abnormalities may be due to her lamotrigine. 02/10/2016 Appointment: Magali Zepeda WPtel: [facility]7 [facility] New Patient 02/10/2016 Patient Education: Patient Medication [...] to patient's pharmacy to start if needed. increase dilantin to 100mg in morning and [...] have referral to physical therapy at [facility]. Suspect some of her movement [...] dilantin -repeat dilantin level in 1 week [id number] cefdinir-finish abx and let us know if [...] - pt is currently getting Prolia in [place], this is a big burden for her [...] RECOMMEND PROBIOTIC-ANY BRAND IS FINE: DAYAN LANG [facility], ALIGN sign release for labs from DR [...]
--- OUTSIDE RECORDS SUMMARY | 2018-12-30 22:44 | XMS REPORT | CCD ---
Author Author Magali Zepeda Organization Magali Zepeda MD, [facility] Address [address] [place] [address] Phone Care Team Providers Care Atmospheric Chemist Name Role Phone PP Unavailable CCM Unavailable Summary Purpose Interface Exchange Insurance Providers Payer name Policy type / Coverage type Covered republican ID Effective Begin Date Effective End Date WPS Medicare Part B Medicare Part B [id number] Unknown [employer] Medicare Part B [id number] Unknown Family history Sister Diagnosis Age At [...] Unknown Retired 02/10/[address]: 820116095 Never smoker 02/10/[address]: 894187056 Never drinks alcohol 02/10/2016 Has the patient [...] Fill Instructions lamotrigine 150 mg tablet RxNorm: 753139 TAKE 1 TABLET BY MOUTH AT BEDTIME 08/14/2018 No Stop Date Active Keflex 500 mg capsule RxNorm: 746641 1 Capsule(s) PO TID and probiotic bid x7 08/14/2018 08/20/2018 Active Keflex 500 mg capsule RxNorm: 598791 1 Capsule(s) PO TID and probiotic bid x7 08/14/2018 08/13/2018 Inactive Zithromax Z-Escobar 250 mg tablet RxNorm: 767803 2 po on first dose and 1 daily Tablet(s) PO 07/27/2018 No Stop Date Active zpack x 1 Mucinex 600 mg tablet, extended release RxNorm: 014065 1 Tablet(s) PO BID 07/27/2018 07/26/2018 Inactive Mucinex 600 mg tablet, extended release RxNorm: 104233 1 Tablet(s) PO BID 07/27/2018 08/09/2018 Inactive Dilantin Extended 100 mg capsule RxNorm: 367727 Capsule(s) TAKE 1 CAP TID ON Tue/ AND 1 CAPSULE QID other days. if having symptoms of seizure activity, take an extra pill 07/20/2018 No Stop Date Active amoxicillin 500 mg tablet RxNorm: 603866 1 Tablet(s) PO TID 07/07/2018 07/13/2018 Inactive lamotrigine 100 mg tablet RxNorm: 415207 TAKE 1 TABLET BY MOUTH IN THE MORNING 07/03/2018 No Stop Date Active Keflex 500 mg capsule RxNorm: 514261 1 Capsule(s) PO QID 06/12/2018 06/18/2018 Inactive please call patient to let her know she needs to picker and packer rx for antibiotic Dilantin Extended 100 mg capsule RxNorm: 968567 Capsule(s) TAKE 1 CAP TID ON /TUE AND 1 CAPSULE QID ON ///TUE. if having symptoms of seizure activity, take an extra pill 05/29/2018 07/19/2018 Inactive Dilantin Extended 100 mg capsule RxNorm: 862964 Capsule(s) TAKE 1 CAP TID x2 DAYS, THEN 1 CAPSULE qid x2 DAYs, THEN REPEAT CYCLE. if having symptoms of seizure activity, take an extra pill 05/22/2018 05/28/2018 Inactive lamotrigine 150 mg tablet RxNorm: 577660 TAKE 1 TABLET BY MOUTH AT BEDTIME 04/17/2018 08/13/2018 Inactive Dilantin Extended 100 mg capsule RxNorm: 053185 TAKE 1 CAPSULE BY MOUTH THREE TIMES DAILY FOR 3 DAYS, THEN 1 CAPSULE FOUR TIMES DAILY FOR 1 DAY, THEN REPEAT CYCLE. 04/12/2018 05/21/2018 Inactive lamotrigine 100 mg tablet RxNorm: 583504 TAKE 1 TABLET BY MOUTH IN THE MORNING 03/31/2018 07/02/2018 Inactive dicyclomine 10 mg capsule RxNorm: 992476 TAKE ONE CAPSULE BY MOUTH TWICE DAILY NEEDED 02/20/2018 No Stop Date Active Penlac 8 % topical solution RxNorm: 255216 1 Application TOP daily clean off every 7 days and restart application process 02/16/2018 09/13/2018 Active ok to dispense generic Keflex 500 mg capsule RxNorm: 134360 1 Capsule(s) PO QID 02/16/2018 02/22/2018 Inactive please call patient to let her know she needs to picker and packer rx for antibiotic Dilantin Extended 100 mg capsule RxNorm: 806442 Capsule(s) PO UD 1 cap TID x 3 days then 1 cap qid x 1 day then repeat cycle 12/15/2017 04/11/2018 Inactive give 1 month supply lamotrigine 150 mg tablet RxNorm: 423673 1 Tablet(s) PO QHS 12/07/2017 04/05/2018 Inactive lamotrigine 100 mg tablet RxNorm: 843391 1 Tablet(s) PO QAM 12/07/2017 03/30/2018 Inactive Levaquin 500 mg tablet RxNorm: 819503 1 Tablet(s) PO daily 12/05/2017 12/11/2017 Inactive Keflex 500 mg capsule RxNorm: 917366 1 Capsule(s) PO TID 11/14/2017 11/20/2017 Inactive Keflex 500 mg capsule RxNorm: 494596 1 Capsule(s) PO TID 11/14/2017 11/13/2017 Inactive Dilantin Extended 100 mg capsule RxNorm: 729567 Capsule(s) PO UD m3pill/tue3 pill/wed 4 pill/ thur 2pill/fri 3pill/sat 4pill/sun 3 pill 10/13/2017 12/14/2017 Inactive Dilantin Extended 100 mg capsule RxNorm: 792199 Capsule(s) PO UD -Alternate 300 mg for two days in a row and then 400 mg for one day and repeat cycle 10/04/2017 10/12/2017 Inactive Augmentin 500 mg-125 mg tablet RxNorm: 006441 1 Tablet(s) PO TID 07/15/2017 07/14/2017 Inactive Augmentin 500 mg-125 mg tablet RxNorm: 976161 1 Tablet(s) PO TID 07/15/2017 07/21/2017 Inactive Dilantin Extended 100 mg capsule RxNorm: 506226 1 Capsule(s) PO daily -Alternate 300 mg and 400 mg every other day 06/07/2017 10/03/2017 Inactive Bactrim DS 800 mg-160 mg tablet RxNorm: 606846 1 Tablet(s) PO BID 05/02/2017 05/08/2017 Inactive Dilantin Extended 100 mg capsule RxNorm: 132714 1 Capsule(s) PO daily in the afternoon and 2 Capsules PO HS- Will take an additional pill if she has a lot of jerking 04/27/2017 06/06/2017 Inactive Keflex 500 mg capsule RxNorm: 729088 1 Capsule(s) PO TID 04/19/2017 04/23/2017 Inactive dicyclomine 10 mg capsule RxNorm: 233696 1 Capsule(s) PO BID as needed 03/30/2017 05/28/2017 Inactive Senna with Docusate Sodium 8.6 mg-50 mg tablet RxNorm: 774094 1 Tablet(s) PO BID as needed constipation 03/02/2017 07/29/2017 Inactive Keflex 500 mg capsule RxNorm: 397278 1 Capsule(s) PO TID 08/11/2016 08/20/2016 Inactive Levaquin 500 mg tablet RxNorm: 512688 1 Tablet(s) PO daily 04/16/2016 04/22/2016 Inactive ciprofloxacin 500 mg tablet RxNorm: 972396 1 Tablet(s) PO BID 02/10/2016 02/16/2016 Inactive prednisone 10 mg tablet RxNorm: 544265 1 Tablet(s) PO as needed for pain No Start Date Active Prolia 60 mg/mL subcutaneous syringe RxNorm: 672401 1 injection SQ Q6 months No Start Date Active lamotrigine 150 mg tablet RxNorm: 379676 1 Tablet(s) PO QHS No Start Date 12/06/2017 Inactive lamotrigine 100 mg tablet RxNorm: 616665 1 Tablet(s) PO QAM No Start Date 12/06/2017 Inactive Dilantin Extended 100 mg capsule RxNorm: 038913 Capsule(s) PO TAKES FOUR CAPSULES FOR 2 DAYS, THEN THREE CAPSULES FOR 1 DAY, THEN REPEATS No Start Date 04/26/2017 Inactive Zithromax Z-Escobar 250 mg tablet RxNorm: 353070 2 po on first dose and 1 daily Tablet(s) PO No Start Date 07/26/2018 Inactive zpack x 1 Humira 20 mg/0.4 mL subcutaneous syringe kit RxNorm: 054781 1 injection SQ every 2 weeks- Prescribed [...] Ord7 DILANTIN 10.5 UG/ML 05/11/2018 Comp Metabolic Svr571 NA 138 mEq/L 05/11/2018 Comp Metabolic Xlu586 K 4.0 mEq/L 05/11/2018 Comp Metabolic Srk919 CL 100 mEq/L 05/11/2018 Comp Metabolic Sxe873 CO2 29.0 mEq/L 05/11/2018 Comp Metabolic Tda813 ANION GAP 13 05/11/2018 Comp Metabolic Wtc242 GLUCOSE 84 mg/dL 05/11/2018 Comp Metabolic Bgi528 Creat 0.8 mg/dL 05/11/2018 Comp Metabolic Vnz841 eGFR 77 ml/min/1.73m2 05/11/2018 Comp Metabolic Pjx060 BUN 26 mg/dL 05/11/2018 Comp Metabolic Dxx887 B/C Ratio 33.3 Ratio 05/11/2018 Comp Metabolic Dnl049 CALCIUM 9.1 mg/dL 05/11/2018 Comp Metabolic Hsi262 ALK PHOS 97 U/L 05/11/2018 Comp Metabolic Iwe116 AST(SGOT) 14 U/L 05/11/2018 Comp Metabolic Ywu986 ALT(SGPT) 7 U/L 05/11/2018 Comp Metabolic Tcx041 BILI T 0.3 mg/dL 05/11/2018 Comp Metabolic Ugk206 ALBUMIN 3.6 g/dL 05/11/2018 Comp Metabolic Num060 TPRO 6.9 g/dL 05/11/2018 Comp Metabolic Jtv704 GLOB 3.3 g/dL 05/11/2018 Comp Metabolic Zgr250 A/G Ratio 1.1 Ratio 05/11/2018 Comp Metabolic Bso379 Osmo 280 mOsmo 05/11/2018 Dilantin Ord7 DILANTIN 10.7 UG/ML 04/25/2018 Valproic Acid Wja852 VALPROIC <10 ug/ml 04/24/2018 Dilantin Ord7 DILANTIN 10.6 UG/ML 04/11/2018 Culture Urine [id number] URINE CULTURE SEE NOTES 02/20/2018 Culture Urine [id number] Continued Results 02/20/2018 Urine Culture Ucult Complete >100,000 col/ml aerobic growth sent to ref lab 02/17/2018 Dilantin Ord7 DILANTIN 14.4 UG/ML 02/16/2018 Comp Metabolic Ijr446 NA 135 mEq/L 02/16/2018 Comp Metabolic Ukp045 K 3.8 mEq/L 02/16/2018 Comp Metabolic Szb374 CL 99 mEq/L 02/16/2018 Comp Metabolic Xjt570 CO2 28.0 mEq/L 02/16/2018 Comp Metabolic Ghk522 ANION GAP 12 02/16/2018 Comp Metabolic Cai716 GLUCOSE 101 mg/dL 02/16/2018 Comp Metabolic Syq684 Creat 0.8 mg/dL 02/16/2018 Comp Metabolic Ixv782 eGFR 75 ml/min/1.73m2 02/16/2018 Comp Metabolic Fvv264 BUN 20 mg/dL 02/16/2018 Comp Metabolic Dlt850 B/C Ratio 25.0 Ratio 02/16/2018 Comp Metabolic Xld456 CALCIUM 8.9 mg/dL 02/16/2018 Comp Metabolic Aet225 ALK PHOS 95 U/L 02/16/2018 Comp Metabolic Vqn078 AST(SGOT) 13 U/L 02/16/2018 Comp Metabolic Iau074 ALT(SGPT) 7 U/L 02/16/2018 Comp Metabolic Wid032 BILI T 0.4 mg/dL 02/16/2018 Comp Metabolic Oon495 ALBUMIN 3.6 g/dL 02/16/2018 Comp Metabolic Ofh787 TPRO 7.2 g/dL 02/16/2018 Comp Metabolic Wtm341 GLOB 3.6 g/dL 02/16/2018 Comp Metabolic Ggq135 A/G Ratio 1.0 Ratio 02/16/2018 Comp Metabolic Tgk012 Osmo 273 mOsmo 02/16/2018 Urine Culture Ucult Complete >100,000 col/ml aerobic growth sent to ref lab 11/15/2017 Comp Metabolic Hyr118 NA 136 mEq/L 10/13/2017 Comp Metabolic Dan520 K 4.0 mEq/L 10/13/2017 Comp Metabolic Vlf228 CL 98 mEq/L 10/13/2017 Comp Metabolic Ejs579 CO2 28.0 mEq/L 10/13/2017 Comp Metabolic Lpg906 ANION GAP 14 10/13/2017 Comp Metabolic Clr676 GLUCOSE 94 mg/dL 10/13/2017 Comp Metabolic Fkc090 Creat 0.7 mg/dL 10/13/2017 Comp Metabolic Dnc018 eGFR 82 ml/min/1.73m2 10/13/2017 Comp Metabolic Jwf045 BUN 26 mg/dL 10/13/2017 Comp Metabolic Tjy602 B/C Ratio 35.1 Ratio 10/13/2017 Comp Metabolic Spg941 CALCIUM 9.1 mg/dL 10/13/2017 Comp Metabolic Tjb226 ALK PHOS 98 U/L 10/13/2017 Comp Metabolic Rfx267 AST(SGOT) 15 U/L 10/13/2017 Comp Metabolic Ybu235 ALT(SGPT) 8 U/L 10/13/2017 Comp Metabolic Ffr163 BILI T 0.4 mg/dL 10/13/2017 Comp Metabolic Bio575 ALBUMIN 3.7 g/dL 10/13/2017 Comp Metabolic Vsb744 TPRO 7.8 g/dL 10/13/2017 Comp Metabolic Ngd286 GLOB 4.1 g/dL 10/13/2017 Comp Metabolic Giv030 A/G Ratio 0.9 Ratio 10/13/2017 Comp Metabolic Rse842 Osmo 276 mOsmo 10/13/2017 Dilantin Ord7 DILANTIN 21.4 Result Verified By Repeat Analysis UG/ML 10/13/2017 Dilantin Ord7 DILANTIN 24.1 Result Verified By Repeat Analysis UG/ML 10/03/2017 Dilantin Ord7 DILANTIN 18.1 UG/ML 06/30/2017 Dilantin Ord7 DILANTIN 22.7 UG/ML 06/16/2017 Dilantin Ord7 DILANTIN 26.1 UG/ML 06/07/2017 Dilantin Ord7 DILANTIN 24.1 UG/ML 05/24/2017 Dilantin Ord7 DILANTIN 19.6 UG/ML 05/11/2017 Culture Urine [id number] URINE CULTURE SEE NOTES 05/06/2017 Culture Urine [id number] Continued Results 05/06/2017 Urine Culture Ucult Complete >100,000 col/ml aerobic growth sent to ref lab 05/03/2017 Dilantin Ord7 DILANTIN 12.6 UG/ML 04/27/2017 Calcium Ord79 CALCIUM 9.3 mg/dL 04/19/2017 Dilantin Ord7 DILANTIN 21.6 UG/ML 04/19/2017 Dilantin Ord7 DILANTIN 10.3 UG/ML 04/13/2017 Dilantin Ord7 DILANTIN 21.9 UG/ML 04/07/2017 Comp Metabolic Koq245 NA 137 mEq/L 03/30/2017 Comp Metabolic Tqs643 K 3.7 mEq/L 03/30/2017 Comp Metabolic Vnq776 CL 98 mEq/L 03/30/2017 Comp Metabolic Dwu494 CO2 29.0 mEq/L 03/30/2017 Comp Metabolic Arr969 ANION GAP 14 03/30/2017 Comp Metabolic Hpp028 GLUCOSE 100 mg/dL 03/30/2017 Comp Metabolic Sif139 Creat 0.9 mg/dL 03/30/2017 Comp Metabolic Obl623 eGFR 88 ml/min/1.73m2 03/30/2017 Comp Metabolic Zri477 BUN 22 mg/dL 03/30/2017 Comp Metabolic Qpu687 B/C Ratio 24.4 Ratio 03/30/2017 Comp Metabolic Sro847 CALCIUM 9.4 mg/dL 03/30/2017 Comp Metabolic Qrb427 ALK PHOS 113 U/L 03/30/2017 Comp Metabolic Ysr659 AST(SGOT) 16 U/L 03/30/2017 Comp Metabolic Lqn461 ALT(SGPT) 7 U/L 03/30/2017 Comp Metabolic Cnl799 BILI T 0.3 mg/dL 03/30/2017 Comp Metabolic Hoq171 ALBUMIN 3.9 g/dL 03/30/2017 Comp Metabolic Dlx817 TPRO 8.0 g/dL 03/30/2017 Comp Metabolic Kvv645 GLOB 4.1 g/dL 03/30/2017 Comp Metabolic Hde298 A/G Ratio 0.9 Ratio 03/30/2017 Comp Metabolic Xpi901 Osmo 277 mOsmo 03/30/2017 Lipid Ord30 CHOL 214 mg/dL 03/30/2017 Lipid Ord30 HDL 61.0 mg/dl 03/30/2017 Lipid Ord30 TRIG 130 mg/dL 03/30/2017 Lipid Ord30 LDL 127 mg/dL 03/30/2017 Lipid Ord30 C/HDL 3.5 Ratio 03/30/2017 Dilantin Ord7 DILANTIN 32.5 UG/ML 03/30/2017 Folate Ord36 Folate 16.46 ng/mL 03/30/2017 Tsh Ord6 hTSH II 0.95 uIU/mL 03/30/2017 B12 Vne712 B12 592.00 pg/ml 03/30/2017 Cbc With Differential [...] 30.9 pg 03/30/2017 Cbc With Differential Ord2 Collin% 23.9 % 03/30/2017 Cbc With Differential Ord2 [...] 0.44 K/ul 03/30/2017 Cbc With Differential Ord2 Collin ABS# 0.3 K/ul 03/30/2017 Cbc With Differential [...] 30.3 pg 08/11/2016 Cbc With Differential Ord2 Collin% 31.7 % 08/11/2016 Cbc With Differential Ord2 [...] 0.59 K/ul 08/11/2016 Cbc With Differential Ord2 Collin ABS# 0.6 K/ul 08/11/2016 Cbc With Differential Ord2 Eos ABS# 0.0 K/ul 08/11/2016 Cbc With Differential Ord2 Baso ABS# 0.0 K/ul 08/11/2016 Dilantin Ord7 DILANTIN 17.2 UG/ML 08/11/2016 Tsh Ord6 hTSH II 0.82 uIU/mL 08/11/2016 Comp Metabolic Tpk740 NA 131 mEq/L 08/11/2016 Comp Metabolic Hfx728 K 4.1 mEq/L 08/11/2016 Comp Metabolic Dje607 CL 93 mEq/L 08/11/2016 Comp Metabolic Rhk743 CO2 29.0 mEq/L 08/11/2016 Comp Metabolic Luz861 ANION GAP 13 08/11/2016 Comp Metabolic Csq279 GLUCOSE 120 mg/dL 08/11/2016 Comp Metabolic Ken725 Creat 0.8 mg/dL 08/11/2016 Comp Metabolic Amn338 eGFR 101 ml/min/1.73m2 08/11/2016 Comp Metabolic Cwu417 BUN 18 mg/dL 08/11/2016 Comp Metabolic Lss038 B/C Ratio 22.5 Ratio 08/11/2016 Comp Metabolic Hwq317 CALCIUM 9.5 mg/dL 08/11/2016 Comp Metabolic Sbi405 ALK PHOS 104 U/L 08/11/2016 Comp Metabolic Pbr969 AST(SGOT) 16 U/L 08/11/2016 Comp Metabolic Qlp684 ALT(SGPT) 8 U/L 08/11/2016 Comp Metabolic Ytw953 BILI T 0.4 mg/dL 08/11/2016 Comp Metabolic Arh055 ALBUMIN 3.8 g/dL 08/11/2016 Comp Metabolic Zqk681 TPRO 8.4 g/dL 08/11/2016 Comp Metabolic Cow190 GLOB 4.6 g/dL 08/11/2016 Comp Metabolic Mlc179 A/G Ratio 0.8 Ratio 08/11/2016 Comp Metabolic Kko281 Osmo 266 mOsmo 08/11/2016 Culture Urine [id number] URINE CULTURE SEE NOTES 04/19/2016 Culture Urine [id number] Continued Results 04/19/2016 Urine Culture Ucult Complete >100,000 col/ml aerobic growth sent to ref lab 04/17/2016 Culture Urine [id number] URINE CULTURE SEE NOTES 02/13/2016 Culture Urine [id number] Continued Results 02/13/2016 Urine Culture Ucult Complete [...] Codes Date URINALYSIS NONAUTO W/O SCOPE CPT-4: 01187 08/07/2018 URINALYSIS NONAUTO W/O SCOPE CPT-4: 11801 06/12/2018 URINALYSIS NONAUTO W/O SCOPE CPT-4: 41342 02/16/2018 URINALYSIS NONAUTO W/O SCOPE CPT-4: 09881 11/14/2017 PPPS, SUBSEQ VISIT CPT- 4: G0439 06/07/2017 URINALYSIS NONAUTO W/O SCOPE CPT-4: 32492 05/02/2017 URINALYSIS NONAUTO W/O SCOPE CPT-4: 74606 04/26/2017 PPPS, SUBSEQ VISIT CPT- 4: G0439 06/01/2016 URINALYSIS NONAUTO W/O SCOPE CPT-4: 41207 04/16/2016 URINALYSIS NONAUTO W/O SCOPE CPT-4: 27591 02/10/2016 Vital Signs Date Vital 07/20/2018 Blood Pressure 1: 104/60 Code: 8480-6 Heart Rate 1: 122 bpm Height: 5'5" SpO2: 94% Temperature: 36.7 (C) / 98.1 (F) Weight: 07/07/2018 Blood Pressure 1: 110/62 Code: 8480-6 BMI: 18.8 Code: 05523-1 Heart Rate 1: 67 bpm Height: 5'5" Temperature: 36.8 (C) / 98.2 (F) Weight: 113 lbs 05/22/2018 Blood Pressure 1: 112/68 Code: 8480-6 BMI: 18.6 Code: 92107-4 Heart Rate 1: 128 bpm Height: 5'5" SpO2: 98% Weight: 112 lbs 04/04/2018 Blood Pressure 1: 94/52 Code: 8480-6 Heart Rate 1: 120 bpm Height: 5'5" Respiratory Rate: 18 bpm SpO2: 98% Weight: 02/16/2018 Blood Pressure 1: 120/70 Code: 8480-6 BMI: 19.1 Code: 02211-0 Heart Rate 1: 115 bpm Height: 5'5" SpO2: 97% Weight: 115 lbs 12/30/2017 Blood Pressure 1: 100/68 Code: 8480-6 BMI: 18.3 Code: 12964-2 Heart Rate 1: 120 bpm Height: 5'5" SpO2: 94% Weight: 110 lbs 10/13/2017 Blood Pressure 1: 136/78 Code: 8480-6 BMI: 18.1 Code: 56333-3 Heart Rate 1: 126 bpm Height: 5'5" SpO2: 96% Weight: 109 lbs 07/12/2017 Blood Pressure 1: 100/56 Code: 8480-6 BMI: 18.1 Code: 67647-5 Heart Rate 1: 123 bpm Height: 5'5" SpO2: 99% Weight: 109 lbs 06/07/2017 Blood Pressure 1: 98/68 Code: 8480-6 BMI: 18.1 Code: 71655- 5 Heart Rate 1: 120 bpm Height: 5'5" SpO2: 99% Waist Measure (cm): 80 cm Weight: 109 lbs 05/24/2017 Blood Pressure 1: 104/62 Code: 8480-6 BMI: 18.1 Code: 91947-1 Heart Rate 1: 121 bpm Height: 5'5" SpO2: 97% Weight: 109 lbs 04/27/2017 Blood Pressure 1: 132/84 Code: 8480-6 BMI: 17.8 Code: 57379-9 Heart Rate 1: 129 bpm Height: 5'5" SpO2: 99% Weight: 107 lbs 04/13/2017 Blood Pressure 1: 100/66 Code: 8480-6 Heart Rate 1: 120 bpm Height: 5'5" SpO2: 99% Weight: 03/30/2017 Blood Pressure 1: 112/66 Code: 8480-6 BMI: 17.8 Code: 00979-0 Heart Rate 1: 112 bpm Height: 5'5" SpO2: 98% Weight: 107 lbs 03/02/2017 Blood Pressure 1: 128/78 Code: 8480-6 BMI: 18.1 Code: 43410-0 Heart Rate 1: 86 bpm Height: 5'5" SpO2: 95% Weight: 109 lbs 08/30/2016 Blood Pressure 1: 102/60 Code: 8480-6 BMI: 18.1 Code: 03516-7 Heart Rate 1: 135 bpm Height: 5'5" SpO2: 98% Weight: 109 lbs 08/11/2016 Blood Pressure 1: 100/66 Code: 8480-6 BMI: 18.6 Code: 49916-5 Heart Rate 1: 86 bpm Height: 5'5" SpO2: 94% Weight: 112 lbs 06/01/2016 Blood Pressure 1: 126/80 Code: 8480-6 BMI: 19.0 Code: 16155-5 Heart Rate 1: 100 bpm Height: 5'5" SpO2: 98% Waist Measure (cm): 64 cm Weight: 114 lbs 04/16/2016 Blood Pressure 1: 124/80 Code: 8480-6 Heart Rate 1: 110 bpm SpO2: 97% 02/10/2016 Blood Pressure 1: 102/64 Code: 8480-6 BMI: 18.3 Code: 37143-9 Heart Rate 1: 114 bpm Height: 5'5" [...] Present Encounters Encounter Performer Location Codes Date ([id number]) [id number] EST. PATIENT, LEVEL III Diagnosis: Cough[ICD10: R05] Diagnosis: Other epilepsy, not intractable, without status epilepticus[ICD10: G40.802] Mishel Zepeda MD, [facility] CPT-4: 01598 07/20/2018 ([id number]) 47145 EST. PATIENT, LEVEL III Diagnosis: Cough[ICD10: R05] Diagnosis: Acute upper respiratory infection, unspecified[ICD10: J06.9] Mishel Zepeda MD, [facility] CPT-4: 49261 07/07/2018 ([id number]) 42271 EST. PATIENT, LEVEL IV Diagnosis: Unsteadiness on feet[ICD10: R26.81] Diagnosis: Other abnormalities of gait and mobility[ICD10: R26.89] Diagnosis: Mixed incontinence[ICD10: N39.46] Diagnosis: Other epilepsy, not intractable, without status epilepticus[ICD10: G40.802] Magali Zepeda MD, [facility] CPT-4: 23459 05/22/2018 ([id number]) 47092 EST. PATIENT, LEVEL III Diagnosis: Right upper quadrant abdominal rigidity[ICD10: R19.31] Diagnosis: Functional diarrhea[ICD10: K59.1] Diagnosis: Calculus of gallbladder without cholecystitis without obstruction[ICD10: K80.20] Magali Zepeda MD, [facility] CPT-4: 22894 04/04/2018 ([id number]) 43503 EST. PATIENT, LEVEL IV Diagnosis: Other epilepsy, not intractable, without status epilepticus[ICD10: G40.802] Diagnosis: Slow transit constipation[ICD10: K59.01] Diagnosis: Dysuria[ICD10: R30.0] Diagnosis: Age-related osteoporosis without current pathological fracture[ICD10: M81.0] Magali Zepeda MD, [facility] CPT-4: 87120 02/16/2018 ([id number]) 23901 EST. PATIENT, LEVEL III Diagnosis: Slow transit constipation[ICD10: K59.01] Mishel Zepeda MD, [facility] CPT-4: 81222 12/30/2017 ([id number]) 97891 EST. PATIENT, LEVEL IV Diagnosis: Other epilepsy, not intractable, without status epilepticus[ICD10: G40.802] Diagnosis: Slow transit constipation[ICD10: K59.01] Magali Zepeda MD, [facility] CPT-4: 06904 10/13/2017 [id number]) 35414 EST. PATIENT, LEVEL III Diagnosis: Other epilepsy, not intractable, without status epilepticus[ICD10: G40.802] Diagnosis: Dysuria[ICD10: R30.0] Diagnosis: Mixed incontinence[ICD10: N39.46] Magali Zepeda MD [facility] CPT- 4: 39289 07/12/2017 [id number]) 43240 EST. 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 PATIENT, LEVEL III Diagnosis: Other epilepsy, not intractable, without status epilepticus[ICD10: G40.802] Magali Zepeda MD [facility] CPT-4: 29636 04/27/2017 [id number]) 27797 EST. 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 PATIENT, LEVEL IV Diagnosis: Calculus of gallbladder without cholecystitis without obstruction[ICD10: K80.20] Diagnosis: Benign paroxysmal vertigo, bilateral[ICD10: H81.13] Diagnosis: Slow transit constipation[ICD10: K59.01] Magali Zepeda MD, [facility] CPT-4: 55536 03/02/2017 ([id number]) 97101 EST. 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 PATIENT, LEVEL IV Diagnosis: Other epilepsy, not intractable, without status epilepticus[ICD10: G40.802] Diagnosis: Low back pain[ICD10: M54.5] Diagnosis: Pressure ulcer of sacral region, stage 1[ICD10: L89.151] Windy Zepeda MD, [facility] CPT-4: 04155 08/11/2016 ([id number]) 25058 EST. PATIENT, LEVEL III Diagnosis: Urinary tract infection, site not specified[ICD10: N39.0] Diagnosis: Slow transit constipation[ICD10: K59.01] Mishel Zepeda MD, [facility] CPT-4: 76574 04/16/2016 ([id number]) OFFICE VISIT, NEW - LEVEL 4 Diagnosis: Other abnormalities of gait and mobility[ICD10: R26.89] Diagnosis: Dysuria[ICD10: R30.0] Diagnosis: Rheumatoid arthritis without rheumatoid factor, multiple sites[ICD10: M06.09] Magali Zepeda MD, [facility] CPT-4: 25861 02/10/2016 Plan of Care Planned Activity Notes Codes Status Date Appointment: Lab Draw 08/07/2018 Patient Education: Patient Medication Summary Completed 08/07/2018 Patient Education: Patient Medication Summary Completed 08/03/2018 Visit Plan: Seizures -increase dilantin -repeat dilantin level in 1 week [id number] cefdinir-finish abx and let us know if your symptoms do not resolve or if any worse 07/20/2018 Appointment: Mishel Wilson WPtel: [phone] [phone] [place] (15 min) Moderate 07/20/2018 Patient Education: Patient Medication Summary Completed 07/20/2018 Visit Plan: URI -viral- Pt advised to increase fluids, vitamin C. Discussed natural and expected course of this diagnosis and need to alert me if symptoms do not follow expected course, or if any worse. RX sent to patient's pharmacy to start if needed. 07/07/2018 Appointment: Mishel Wilson WPtel: [phone] [place] (30 min) Complex 07/07/2018 Patient Education: Patient Medication Summary Completed 07/07/2018 Appointment: Magali Zepeda WPtel: [facility]5 [phone] (15 min) Moderate 07/03/2018 Appointment: Lab Draw [...] the house. 05/22/2018 Appointment: Magali Zepeda WPtel: [facility] [place] (15 min) Moderate 05/22/2018 Patient Education: Patient Medication Summary Completed 05/22/2018 Appointment: Magali Zepeda WPtel: [facility]5 [facility] [place] (15 min) Moderate 05/15/2018 Visit Plan: [...] well as nursing oversight post-operatively. 04/04/2018 Appointment: Solon Magali WPtel: [facility]4 [facility] (15 min) Moderate 04/04/2018 Patient Education: Patient Medication Summary Completed 04/04/2018 Patient Education: Diarrhea Completed 04/04/2018 Visit Plan: Epilepsy - chronic - continue with current regimen - check labs. Osteoporosis - pt is currently getting Prolia in [place], this is a big burden for her - They have asked for her to be set up for prolia for at the end of may at [address]- to call with specific date. Dysuria - UA - +leukocytes - start on keflex - rx sent to pharmacy. Chronic constipation - monitor symptoms. Continue with supportive care. 02/16/2018 Appointment: Magali Zepeda WPtel: [facility]9 [facility] (15 min) Moderate 02/16/2018 Patient Education: Patient [...] this regimen. 12/30/2017 Appointment: Mishel Wilson WPtel: [phone] [phone] [place] (30 min) Complex 12/30/2017 Patient Education: [...] regimen. 10/13/2017 Appointment: [phone] (15 min) Moderate 10/13/2017 Patient Education: Patient Medication Summary Completed 10/13/2017 Appointment: Mag[facility] Zepeda [facility]Ptel[phone] (15 min) Moderate 10/06/2017 Appointment: Lab Draw [...] Magali Zepeda WPtel: [facility]6 [facility] [place] (15 min) Moderate 07/12/2017 Patient Education: Patient Medication Summary Completed 07/12/2017 Appointment: Magali Zepeda WPtel: [facility] [place] (15 min) Moderate 07/05/2017 Visit Plan: [...] care surrogate. 06/07/2017 Appointment: Windy Greco WPtel: [facility]5 [facility] [facility] - Annual Wellness Visit 06/07/2017 Patient [...] per week. 05/24/2017 Appointment: Magali Zepeda WPtel: [facility]5 [facility] (15 min) Moderate 05/24/2017 Patient Education: Patient Medication Summary Completed 05/24/2017 Appointment: Magali Zepeda WPtel: [facility]5 [facility] (15 min) Moderate 05/11/2017 Visit Plan: UTI [...] week) 04/27/2017 Appointment: Magali Zepeda [facility]Ptel[phone] [place] (15 min) Moderate 04/27/2017 Patient Education: [...] referral for therapy, monitor symptoms. 04/13/2017 Appointment: Duane Magali WPtel: [phone] [place] (15 min) Moderate 04/13/2017 Patient Education: [...] Zepeda WPtel[phone] [place] (15 min) Moderate 03/30/2017 Patient Education: [...] constipation. 03/02/2017 Appointment: Magali Zepeda WPtel: [phone] [facility] (30 min) Complex 03/02/2017 Patient Education: Patient Medication Summary Completed 03/02/2017 Visit Plan: RA and Gait abnormality -continue with current treatments - supportive care Suspect some of her movement abnormalities may be due to her lamotrigine. 08/30/2016 Appointment: Magali Zepeda WPtel: [phone] [facility] (30 min) Complex 08/30/2016 Patient Education: Patient [...] warmth, discharge. 08/11/2016 Appointment: Windy Greco WPtel: [phone] [facility] (30 min) Complex 08/11/2016 Patient Education: Patient [...] care surrogate. 06/01/2016 Appointment: Windy Greco WPtel: [facility]8 [facility] [place] [address] - Annual Wellness Visit 06/01/2016 Patient Education: [...] this regimen. 04/16/2016 Appointment: Mishel Wilson WPtel: [address] [place], [place] [id number] (15 min) Moderate 04/16/2016 Patient Education: Patient Medication Summary Completed 04/16/2016 Visit Plan: RA and Gait abnormality - recommended pt to have referral to physical therapy at [facility]. Suspect some of her movement abnormalities may be due to her lamotrigine. 02/10/2016 Appointment: Magali Zepeda WPtel: [address] [place], [place] [id number] New Patient 02/10/2016 Patient Education: Patient Medication [...] - pt is currently getting Prolia in [place], this is a big burden for her [...] dilantin -repeat dilantin level in 1 week SAT-wednd-au cefdinir-finish abx and let us know if [...] home health referral for therapy, monitor symptoms. start antibiotic if needed over the weekend [...] regimen. RECOMMEND PROBIOTIC-ANY BRAND IS FINE: [facility] Juxinli, ALIGN sign release for labs from DR [...]
--- OUTSIDE RECORDS SUMMARY | 2018-12-30 22:47 | XMS REPORT | CCD ---
Author Author Magali Zepeda Organization Magali Zepeda MD, [facility] Address [address] [place] [address] Phone Care Team Providers Care Concrete Block Molder Name Role Phone PP Unavailable CCM Unavailable Summary Purpose Interface Exchange Insurance Providers Payer name Policy type / Coverage type Covered libertarian ID Effective Begin Date Effective End Date WPS Medicare Part B Medicare Part B [id number] Unknown [employer] Medicare Part B [id number] Unknown Family history Sister Diagnosis Age At [...] Unknown Retired 02/10/[address]: 090179253 Never smoker 02/10/[address]: 149547558 Never drinks alcohol 02/10/2016 Has the patient [...] Fill Instructions lamotrigine 150 mg tablet RxNorm: 123138 TAKE 1 TABLET BY MOUTH AT BEDTIME 08/14/2018 No Stop Date Active Zithromax Z-Escobar 250 mg tablet RxNorm: 995053 2 po on first dose and 1 daily Tablet(s) PO 07/27/2018 No Stop Date Active zpack x 1 Mucinex 600 mg tablet, extended release RxNorm: 006436 1 Tablet(s) PO BID 07/27/2018 07/26/2018 Inactive Mucinex 600 mg tablet, extended release RxNorm: 212748 1 Tablet(s) PO BID 07/27/2018 08/09/2018 Inactive Dilantin Extended 100 mg capsule RxNorm: 097582 Capsule(s) TAKE 1 CAP TID ON Tue/ AND 1 CAPSULE QID other days. 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 if having symptoms of seizure activity, take an extra pill 05/29/2018 07/19/2018 Inactive Dilantin Extended 100 mg capsule RxNorm: 151800 Capsule(s) TAKE 1 CAP TID x2 DAYS, THEN 1 CAPSULE qid x2 DAYs, THEN REPEAT CYCLE. if having symptoms of seizure activity, take an extra pill 05/22/2018 05/28/2018 Inactive lamotrigine 150 mg tablet RxNorm: 192562 TAKE 1 TABLET BY MOUTH AT BEDTIME 04/17/2018 08/13/2018 Inactive Dilantin Extended 100 mg capsule RxNorm: 385560 TAKE 1 CAPSULE BY MOUTH THREE TIMES DAILY FOR 3 DAYS, THEN 1 CAPSULE FOUR TIMES DAILY FOR 1 DAY, THEN REPEAT CYCLE. 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 Dilantin Extended 100 mg capsule RxNorm: 464640 Capsule(s) PO UD 1 cap TID x 3 days then 1 cap qid x 1 day then repeat cycle 12/15/2017 04/11/2018 Inactive give 1 month supply lamotrigine 150 mg tablet RxNorm: 332036 1 Tablet(s) PO QHS 12/07/2017 04/05/2018 Inactive lamotrigine 100 mg tablet RxNorm: 576917 1 Tablet(s) PO QAM 12/07/2017 03/30/2018 Inactive Levaquin 500 mg tablet RxNorm: 714513 1 Tablet(s) PO daily 12/05/2017 12/11/2017 Inactive Keflex 500 mg capsule RxNorm: 522103 1 Capsule(s) PO TID 11/14/2017 11/20/2017 Inactive Keflex 500 mg capsule RxNorm: 982266 1 Capsule(s) PO TID 11/14/2017 11/13/2017 Inactive Dilantin Extended 100 mg capsule RxNorm: 084630 Capsule(s) PO UD m3pill/tue3 pill/wed 4 pill/ thur 2pill/fri 3pill/sat 4pill/sun 3 pill 10/13/2017 12/14/2017 Inactive Dilantin Extended 100 mg capsule RxNorm: 748873 Capsule(s) PO UD -Alternate 300 mg for two days in a row and then 400 mg for one day and repeat cycle 10/04/2017 10/12/2017 Inactive Augmentin 500 mg-125 mg tablet RxNorm: 367010 1 Tablet(s) PO TID 07/15/2017 07/14/2017 Inactive Augmentin 500 mg-125 mg tablet RxNorm: 324800 1 Tablet(s) PO TID 07/15/2017 07/21/2017 Inactive Dilantin Extended 100 mg capsule RxNorm: 242559 1 Capsule(s) PO daily -Alternate 300 mg and 400 mg every other day 06/07/2017 10/03/2017 Inactive Bactrim DS 800 mg-160 mg tablet RxNorm: 740305 1 Tablet(s) PO BID 05/02/2017 05/08/2017 Inactive Dilantin Extended 100 mg capsule RxNorm: 419268 1 Capsule(s) PO daily in the afternoon and 2 Capsules PO HS- Will take an additional pill if she has a lot of jerking 04/27/2017 06/06/2017 Inactive Keflex 500 mg capsule RxNorm: 380060 1 Capsule(s) PO TID 04/19/2017 04/23/2017 Inactive dicyclomine 10 mg capsule RxNorm: 424004 1 Capsule(s) PO BID as needed 03/30/2017 05/28/2017 Inactive Senna with Docusate Sodium 8.6 mg-50 mg tablet RxNorm: 073126 1 Tablet(s) PO BID as needed constipation 03/02/2017 07/29/2017 Inactive Keflex 500 mg capsule RxNorm: 912121 1 Capsule(s) PO TID 08/11/2016 08/20/2016 Inactive Levaquin 500 mg tablet RxNorm: 301369 1 Tablet(s) PO daily 04/16/2016 04/22/2016 Inactive ciprofloxacin 500 mg tablet RxNorm: 637657 1 Tablet(s) PO BID 02/10/2016 02/16/2016 Inactive prednisone 10 mg tablet RxNorm: 438125 1 Tablet(s) PO as needed for pain No Start Date Active Prolia 60 mg/mL subcutaneous syringe RxNorm: 085397 1 injection SQ Q6 months No Start Date Active lamotrigine 150 mg tablet RxNorm: 198057 1 Tablet(s) PO QHS No Start Date 12/06/2017 Inactive lamotrigine 100 mg tablet RxNorm: 140265 1 Tablet(s) PO QAM No Start Date 12/06/2017 Inactive Dilantin Extended 100 mg capsule RxNorm: 074600 Capsule(s) PO TAKES FOUR CAPSULES FOR 2 DAYS, THEN THREE CAPSULES FOR 1 DAY, THEN REPEATS No Start Date 04/26/2017 Inactive Zithromax Z-Escobar 250 mg tablet RxNorm: 565926 2 po on first dose and 1 daily Tablet(s) PO No Start Date 07/26/2018 Inactive zpack x 1 Humira 20 mg/0.4 mL subcutaneous syringe kit RxNorm: 475981 1 injection SQ every 2 weeks- Prescribed [...] Ord7 DILANTIN 10.5 UG/ML 05/11/2018 Comp Metabolic Lhx929 NA 138 mEq/L 05/11/2018 Comp Metabolic Aad275 K 4.0 mEq/L 05/11/2018 Comp Metabolic Srr333 CL 100 mEq/L 05/11/2018 Comp Metabolic Ygc996 CO2 29.0 mEq/L 05/11/2018 Comp Metabolic Lkq745 ANION GAP 13 05/11/2018 Comp Metabolic Xpy915 GLUCOSE 84 mg/dL 05/11/2018 Comp Metabolic Nvh755 Creat 0.8 mg/dL 05/11/2018 Comp Metabolic Qqa553 eGFR 77 ml/min/1.73m2 05/11/2018 Comp Metabolic Cfx559 BUN 26 mg/dL 05/11/2018 Comp Metabolic Vwi965 B/C Ratio 33.3 Ratio 05/11/2018 Comp Metabolic Lwb185 CALCIUM 9.1 mg/dL 05/11/2018 Comp Metabolic Ujc970 ALK PHOS 97 U/L 05/11/2018 Comp Metabolic Bfn036 AST(SGOT) 14 U/L 05/11/2018 Comp Metabolic Geo113 ALT(SGPT) 7 U/L 05/11/2018 Comp Metabolic Dqp758 BILI T 0.3 mg/dL 05/11/2018 Comp Metabolic Ekv989 ALBUMIN 3.6 g/dL 05/11/2018 Comp Metabolic Brk504 TPRO 6.9 g/dL 05/11/2018 Comp Metabolic Qkp596 GLOB 3.3 g/dL 05/11/2018 Comp Metabolic Bxi504 A/G Ratio 1.1 Ratio 05/11/2018 Comp Metabolic Rtr722 Osmo 280 mOsmo 05/11/2018 Dilantin Ord7 DILANTIN 10.7 UG/ML 04/25/2018 Valproic Acid Syq951 VALPROIC <10 ug/ml 04/24/2018 Dilantin Ord7 DILANTIN 10.6 UG/ML 04/11/2018 Culture Urine [id number] URINE CULTURE SEE NOTES 02/20/2018 Culture Urine [id number] Continued Results 02/20/2018 Urine Culture Ucult Complete >100,000 col/ml aerobic growth sent to ref lab 02/17/2018 Dilantin Ord7 DILANTIN 14.4 UG/ML 02/16/2018 Comp Metabolic Vbo022 NA 135 mEq/L 02/16/2018 Comp Metabolic Skz566 K 3.8 mEq/L 02/16/2018 Comp Metabolic Xka429 CL 99 mEq/L 02/16/2018 Comp Metabolic Xbk452 CO2 28.0 mEq/L 02/16/2018 Comp Metabolic Gai184 ANION GAP 12 02/16/2018 Comp Metabolic Joh882 GLUCOSE 101 mg/dL 02/16/2018 Comp Metabolic Nlx954 Creat 0.8 mg/dL 02/16/2018 Comp Metabolic Itx342 eGFR 75 ml/min/1.73m2 02/16/2018 Comp Metabolic Tpt118 BUN 20 mg/dL 02/16/2018 Comp Metabolic Fka911 B/C Ratio 25.0 Ratio 02/16/2018 Comp Metabolic Ikh872 CALCIUM 8.9 mg/dL 02/16/2018 Comp Metabolic Vil594 ALK PHOS 95 U/L 02/16/2018 Comp Metabolic Jnv899 AST(SGOT) 13 U/L 02/16/2018 Comp Metabolic Fyo956 ALT(SGPT) 7 U/L 02/16/2018 Comp Metabolic Psw736 BILI T 0.4 mg/dL 02/16/2018 Comp Metabolic Agy335 ALBUMIN 3.6 g/dL 02/16/2018 Comp Metabolic Npq251 TPRO 7.2 g/dL 02/16/2018 Comp Metabolic Uft631 GLOB 3.6 g/dL 02/16/2018 Comp Metabolic Efm915 A/G Ratio 1.0 Ratio 02/16/2018 Comp Metabolic Llt322 Osmo 273 mOsmo 02/16/2018 Urine Culture Ucult Complete >100,000 col/ml aerobic growth sent to ref lab 11/15/2017 Comp Metabolic Kcy551 NA 136 mEq/L 10/13/2017 Comp Metabolic Zyt209 K 4.0 mEq/L 10/13/2017 Comp Metabolic Puv254 CL 98 mEq/L 10/13/2017 Comp Metabolic Dpi366 CO2 28.0 mEq/L 10/13/2017 Comp Metabolic Zrl117 ANION GAP 14 10/13/2017 Comp Metabolic Khe543 GLUCOSE 94 mg/dL 10/13/2017 Comp Metabolic Jfa502 Creat 0.7 mg/dL 10/13/2017 Comp Metabolic Iko025 eGFR 82 ml/min/1.73m2 10/13/2017 Comp Metabolic Rvn200 BUN 26 mg/dL 10/13/2017 Comp Metabolic Ndj360 B/C Ratio 35.1 Ratio 10/13/2017 Comp Metabolic Syq464 CALCIUM 9.1 mg/dL 10/13/2017 Comp Metabolic Jbo428 ALK PHOS 98 U/L 10/13/2017 Comp Metabolic Qmi855 AST(SGOT) 15 U/L 10/13/2017 Comp Metabolic Ait444 ALT(SGPT) 8 U/L 10/13/2017 Comp Metabolic Sqw331 BILI T 0.4 mg/dL 10/13/2017 Comp Metabolic Gxr092 ALBUMIN 3.7 g/dL 10/13/2017 Comp Metabolic Fbd575 TPRO 7.8 g/dL 10/13/2017 Comp Metabolic Imu227 GLOB 4.1 g/dL 10/13/2017 Comp Metabolic Ovd685 A/G Ratio 0.9 Ratio 10/13/2017 Comp Metabolic Jac467 Osmo 276 mOsmo 10/13/2017 Dilantin Ord7 DILANTIN 21.4 Result Verified By Repeat Analysis UG/ML 10/13/2017 Dilantin Ord7 DILANTIN 24.1 Result Verified By Repeat Analysis UG/ML 10/03/2017 Dilantin Ord7 DILANTIN 18.1 UG/ML 06/30/2017 Dilantin Ord7 DILANTIN 22.7 UG/ML 06/16/2017 Dilantin Ord7 DILANTIN 26.1 UG/ML 06/07/2017 Dilantin Ord7 DILANTIN 24.1 UG/ML 05/24/2017 Dilantin Ord7 DILANTIN 19.6 UG/ML 05/11/2017 Culture Urine [id number] URINE CULTURE SEE NOTES 05/06/2017 Culture Urine [id number] Continued Results 05/06/2017 Urine Culture Ucult Complete >100,000 col/ml aerobic growth sent to ref lab 05/03/2017 Dilantin Ord7 DILANTIN 12.6 UG/ML 04/27/2017 Calcium Ord79 CALCIUM 9.3 mg/dL 04/19/2017 Dilantin Ord7 DILANTIN 21.6 UG/ML 04/19/2017 Dilantin Ord7 DILANTIN 10.3 UG/ML 04/13/2017 Dilantin Ord7 DILANTIN 21.9 UG/ML 04/07/2017 Comp Metabolic Flr011 NA 137 mEq/L 03/30/2017 Comp Metabolic Uzv618 K 3.7 mEq/L 03/30/2017 Comp Metabolic Hsk486 CL 98 mEq/L 03/30/2017 Comp Metabolic Ozn445 CO2 29.0 mEq/L 03/30/2017 Comp Metabolic Gem592 ANION GAP 14 03/30/2017 Comp Metabolic Dcb588 GLUCOSE 100 mg/dL 03/30/2017 Comp Metabolic Rxc060 Creat 0.9 mg/dL 03/30/2017 Comp Metabolic Skk241 eGFR 88 ml/min/1.73m2 03/30/2017 Comp Metabolic Mjx526 BUN 22 mg/dL 03/30/2017 Comp Metabolic Owt812 B/C Ratio 24.4 Ratio 03/30/2017 Comp Metabolic Yto868 CALCIUM 9.4 mg/dL 03/30/2017 Comp Metabolic Ezr767 ALK PHOS 113 U/L 03/30/2017 Comp Metabolic Lko736 AST(SGOT) 16 U/L 03/30/2017 Comp Metabolic Xrk826 ALT(SGPT) 7 U/L 03/30/2017 Comp Metabolic Ckw622 BILI T 0.3 mg/dL 03/30/2017 Comp Metabolic Cwj809 ALBUMIN 3.9 g/dL 03/30/2017 Comp Metabolic Wpv248 TPRO 8.0 g/dL 03/30/2017 Comp Metabolic Vsd904 GLOB 4.1 g/dL 03/30/2017 Comp Metabolic Fwm859 A/G Ratio 0.9 Ratio 03/30/2017 Comp Metabolic Xnl099 Osmo 277 mOsmo 03/30/2017 Lipid Ord30 CHOL 214 mg/dL 03/30/2017 Lipid Ord30 HDL 61.0 mg/dl 03/30/2017 Lipid Ord30 TRIG 130 mg/dL 03/30/2017 Lipid Ord30 LDL 127 mg/dL 03/30/2017 Lipid Ord30 C/HDL 3.5 Ratio 03/30/2017 Dilantin Ord7 DILANTIN 32.5 UG/ML 03/30/2017 Folate Ord36 Folate 16.46 ng/mL 03/30/2017 Tsh Ord6 hTSH II 0.95 uIU/mL 03/30/2017 B12 Pld518 B12 592.00 pg/ml 03/30/2017 Cbc With Differential [...] 30.9 pg 03/30/2017 Cbc With Differential Ord2 Clinch% 23.9 % 03/30/2017 Cbc With Differential Ord2 [...] 0.44 K/ul 03/30/2017 Cbc With Differential Ord2 Clinch ABS# 0.3 K/ul 03/30/2017 Cbc With Differential [...] 87.2 fl 08/11/2016 Cbc With Differential Ord2 Clinch% 31.7 % 08/11/2016 Cbc With Differential Ord2 [...] 0.59 K/ul 08/11/2016 Cbc With Differential Ord2 Clinch ABS# 0.6 K/ul 08/11/2016 Cbc With Differential Ord2 Eos ABS# 0.0 K/ul 08/11/2016 Cbc With Differential Ord2 Baso ABS# 0.0 K/ul 08/11/2016 Dilantin Ord7 DILANTIN 17.2 UG/ML 08/11/2016 Tsh Ord6 hTSH II 0.82 uIU/mL 08/11/2016 Comp Metabolic Mqa737 NA 131 mEq/L 08/11/2016 Comp Metabolic Ddu751 K 4.1 mEq/L 08/11/2016 Comp Metabolic Mhi089 CL 93 mEq/L 08/11/2016 Comp Metabolic Vyu484 CO2 29.0 mEq/L 08/11/2016 Comp Metabolic Pir481 ANION GAP 13 08/11/2016 Comp Metabolic Kxo629 GLUCOSE 120 mg/dL 08/11/2016 Comp Metabolic Eul214 Creat 0.8 mg/dL 08/11/2016 Comp Metabolic Rxf146 eGFR 101 ml/min/1.73m2 08/11/2016 Comp Metabolic Ijm161 BUN 18 mg/dL 08/11/2016 Comp Metabolic Szl235 B/C Ratio 22.5 Ratio 08/11/2016 Comp Metabolic Hme092 CALCIUM 9.5 mg/dL 08/11/2016 Comp Metabolic Cgd305 ALK PHOS 104 U/L 08/11/2016 Comp Metabolic Yvy725 AST(SGOT) 16 U/L 08/11/2016 Comp Metabolic Stw266 ALT(SGPT) 8 U/L 08/11/2016 Comp Metabolic Zmj118 BILI T 0.4 mg/dL 08/11/2016 Comp Metabolic Wry946 ALBUMIN 3.8 g/dL 08/11/2016 Comp Metabolic Zzm310 TPRO 8.4 g/dL 08/11/2016 Comp Metabolic Nmf438 GLOB 4.6 g/dL 08/11/2016 Comp Metabolic Djz440 A/G Ratio 0.8 Ratio 08/11/2016 Comp Metabolic Pie221 Osmo 266 mOsmo 08/11/2016 Culture Urine [id number] URINE CULTURE SEE NOTES 04/19/2016 Culture Urine [id number] Continued Results 04/19/2016 Urine Culture Ucult Complete >100,000 col/ml aerobic growth sent to ref lab 04/17/2016 Culture Urine [id number] URINE CULTURE SEE NOTES 02/13/2016 Culture Urine [id number] Continued Results 02/13/2016 Urine Culture Ucult Complete [...] developed 02/16/2018 None Full Exam - General 1995 Constitutional general appearance Overall: in no acute distress 02/16/2018 None Full Exam - General 1995 Constitutional general appearance Overall: well nourished 02/16/2018 None Full Exam - General 1995 Eyes conjunctiva/eyelids Overall: conjunctiva clear 02/16/2018 None Full Exam - General 1995 Eyes conjunctiva/eyelids Overall: eyelids normal 02/16/2018 None Full Exam - General 1995 Ears/Nose/Throat lips/teeth/gingiva Overall: benign lips 02/16/2018 None Full Exam - General 1995 Respiratory respiratory effort/rhythm Overall: no retractions 02/16/2018 [...] Codes Date URINALYSIS NONAUTO W/O SCOPE CPT-4: 55814 08/07/2018 URINALYSIS NONAUTO W/O SCOPE CPT-4: 68563 06/12/2018 URINALYSIS NONAUTO W/O SCOPE CPT-4: 76870 02/16/2018 URINALYSIS NONAUTO W/O SCOPE CPT-4: 85934 11/14/2017 PPPS, SUBSEQ VISIT CPT- 4: G0439 06/07/2017 URINALYSIS NONAUTO W/O SCOPE CPT-4: 13753 05/02/2017 URINALYSIS NONAUTO W/O SCOPE CPT-4: 18247 04/26/2017 PPPS, SUBSEQ VISIT CPT- 4: G0439 06/01/2016 URINALYSIS NONAUTO W/O SCOPE CPT-4: 48806 04/16/2016 URINALYSIS NONAUTO W/O SCOPE CPT-4: 64746 02/10/2016 Vital Signs Date Vital 07/20/2018 Blood Pressure 1: 104/60 Code: 8480-6 Heart Rate 1: 122 bpm Height: 5'5" SpO2: 94% Temperature: 36.7 (C) / 98.1 (F) Weight: 07/07/2018 Blood Pressure 1: 110/62 Code: 8480-6 BMI: 18.8 Code: 10074-7 Heart Rate 1: 67 bpm Height: 5'5" Temperature: 36.8 (C) / 98.2 (F) Weight: 113 lbs 05/22/2018 Blood Pressure 1: 112/68 Code: 8480-6 BMI: 18.6 Code: 63883-1 Heart Rate 1: 128 bpm Height: 5'5" SpO2: 98% Weight: 112 lbs 04/04/2018 Blood Pressure 1: 94/52 Code: 8480-6 Heart Rate 1: 120 bpm Height: 5'5" Respiratory Rate: 18 bpm SpO2: 98% Weight: 02/16/2018 Blood Pressure 1: 120/70 Code: 8480-6 BMI: 19.1 Code: 60984-8 Heart Rate 1: 115 bpm Height: 5'5" SpO2: 97% Weight: 115 lbs 12/30/2017 Blood Pressure 1: 100/68 Code: 8480-6 BMI: 18.3 Code: 42937-7 Heart Rate 1: 120 bpm Height: 5'5" SpO2: 94% Weight: 110 lbs 10/13/2017 Blood Pressure 1: 136/78 Code: 8480-6 BMI: 18.1 Code: 77434-6 Heart Rate 1: 126 bpm Height: 5'5" SpO2: 96% Weight: 109 lbs 07/12/2017 Blood Pressure 1: 100/56 Code: 8480-6 BMI: 18.1 Code: 91718-2 Heart Rate 1: 123 bpm Height: 5'5" SpO2: 99% Weight: 109 lbs 06/07/2017 Blood Pressure 1: 98/68 Code: 8480-6 BMI: 18.1 Code: 15520- 5 Heart Rate 1: 120 bpm Height: 5'5" SpO2: 99% Waist Measure (cm): 80 cm Weight: 109 lbs 05/24/2017 Blood Pressure 1: 104/62 Code: 8480-6 BMI: 18.1 Code: 66581-4 Heart Rate 1: 121 bpm Height: 5'5" SpO2: 97% Weight: 109 lbs 04/27/2017 Blood Pressure 1: 132/84 Code: 8480-6 BMI: 17.8 Code: 39229-4 Heart Rate 1: 129 bpm Height: 5'5" SpO2: 99% Weight: 107 lbs 04/13/2017 Blood Pressure 1: 100/66 Code: 8480-6 Heart Rate 1: 120 bpm Height: 5'5" SpO2: 99% Weight: 03/30/2017 Blood Pressure 1: 112/66 Code: 8480-6 BMI: 17.8 Code: 41922-8 Heart Rate 1: 112 bpm Height: 5'5" SpO2: 98% Weight: 107 lbs 03/02/2017 Blood Pressure 1: 128/78 Code: 8480-6 BMI: 18.1 Code: 02246-0 Heart Rate 1: 86 bpm Height: 5'5" SpO2: 95% Weight: 109 lbs 08/30/2016 Blood Pressure 1: 102/60 Code: 8480-6 BMI: 18.1 Code: 89192-7 Heart Rate 1: 135 bpm Height: 5'5" SpO2: 98% Weight: 109 lbs 08/11/2016 Blood Pressure 1: 100/66 Code: 8480-6 BMI: 18.6 Code: 62934-9 Heart Rate 1: 86 bpm Height: 5'5" SpO2: 94% Weight: 112 lbs 06/01/2016 Blood Pressure 1: 126/80 Code: 8480-6 BMI: 19.0 Code: 30942-4 Heart Rate 1: 100 bpm Height: 5'5" SpO2: 98% Waist Measure (cm): 64 cm Weight: 114 lbs 04/16/2016 Blood Pressure 1: 124/80 Code: 8480-6 Heart Rate 1: 110 bpm SpO2: 97% 02/10/2016 Blood Pressure 1: 102/64 Code: 8480-6 BMI: 18.3 Code: 36635-7 Heart Rate 1: 114 bpm Height: 5'5" [...] Present Encounters Encounter Performer Location Codes Date ([id number]) [id number] EST. PATIENT, LEVEL III Diagnosis: Cough[ICD10: R05] Diagnosis: Other epilepsy, not intractable, without status epilepticus[ICD10: G40.802] [facility] CPT-4: 31648 07/20/2018 ([id number]) 70313 EST. PATIENT, LEVEL III Diagnosis: Cough[ICD10: R05] Diagnosis: Acute upper respiratory infection, unspecified[ICD10: J06.9] Mishel Zepeda MD, [facility] CPT-4: 01931 07/07/2018 ([id number]) [id number] EST. PATIENT, LEVEL IV Diagnosis: Unsteadiness on feet[ICD10: R26.81] Diagnosis: Other abnormalities of gait and mobility[ICD10: R26.89] Diagnosis: Mixed incontinence[ICD10: N39.46] Diagnosis: Other epilepsy, not intractable, without status epilepticus[ICD10: G40.802] Magali Zepeda MD, [facility] CPT-4: 59270 05/22/2018 ([id number]) 59751 EST. PATIENT, LEVEL III Diagnosis: Right upper quadrant abdominal rigidity[ICD10: R19.31] Diagnosis: Functional diarrhea[ICD10: K59.1] Diagnosis: Calculus of gallbladder without cholecystitis without obstruction[ICD10: K80.20] Magali Zepeda MD, [facility] CPT-4: 19105 04/04/2018 ([id number]) 96191 EST. PATIENT, LEVEL IV Diagnosis: Other epilepsy, not intractable, without status epilepticus[ICD10: G40.802] Diagnosis: Slow transit constipation[ICD10: K59.01] Diagnosis: Dysuria[ICD10: R30.0] Diagnosis: Age-related osteoporosis without current pathological fracture[ICD10: M81.0] Magali Zepeda MD, [facility] CPT-4: 46618 02/16/2018 [id number]) 37324 EST. PATIENT, LEVEL III Diagnosis: Slow transit constipation[ICD10: K59.01] Mishel Zepeda MD, [facility] CPT-4: 54025 12/30/2017 [id number]) 80174 EST. PATIENT, LEVEL IV Diagnosis: Other epilepsy, not intractable, without status epilepticus[ICD10: G40.802] Diagnosis: Slow transit constipation[ICD10: K59.01] Magali Zepeda MD, [facility] CPT-4: 15246 10/13/2017 [id number]) 35049 EST. PATIENT, LEVEL III Diagnosis: Other epilepsy, not intractable, without status epilepticus[ICD10: G40.802] Diagnosis: Dysuria[ICD10: R30.0] Diagnosis: Mixed incontinence[ICD10: N39.46] Magali Zepeda MD, [facility] CPT- 4: 81532 07/12/2017 [id number]) 88448 EST. 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 PATIENT, LEVEL III Diagnosis: Other epilepsy, not intractable, without status epilepticus[ICD10: G40.802] Magali Zepeda MD [facility] CPT-4: 20400 04/27/2017 ([id number]) 59799 EST. 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 PATIENT, LEVEL IV Diagnosis: Calculus of gallbladder without cholecystitis without obstruction[ICD10: K80.20] Diagnosis: Benign paroxysmal vertigo, bilateral[ICD10: H81.13] Diagnosis: Slow transit constipation[ICD10: K59.01] Magali Zepeda MD, [facility] CPT-4: 75832 03/02/2017 ([id number]) 31008 EST. 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 PATIENT, LEVEL IV Diagnosis: Other epilepsy, not intractable, without status epilepticus[ICD10: G40.802] Diagnosis: Low back pain[ICD10: M54.5] Diagnosis: Pressure ulcer of sacral region, stage 1[ICD10: L89.151] [facility] CPT-4: 81228 08/11/2016 ([id number]) 57040 EST. PATIENT, LEVEL III Diagnosis: Urinary tract infection, site not specified[ICD10: N39.0] Diagnosis: Slow transit constipation[ICD10: K59.01] [facility] CPT-4: 18166 04/16/2016 ([id number]) OFFICE VISIT, NEW - LEVEL 4 Diagnosis: Other abnormalities of gait and mobility[ICD10: R26.89] Diagnosis: Dysuria[ICD10: R30.0] Diagnosis: Rheumatoid arthritis without rheumatoid factor, multiple sites[ICD10: M06.09] [facility] CPT-4: 75127 02/10/2016 Plan of Care Planned Activity Notes Codes Status Date Appointment: Lab Draw 08/07/2018 Patient Education: Patient Medication Summary Completed 08/07/2018 Patient Education: Patient Medication Summary Completed 08/03/2018 Visit Plan: Seizures -increase dilantin -repeat dilantin level in 1 week FXT-bdawt-wd cefdinir-finish abx and let us know if your symptoms do not resolve or if any worse 07/20/2018 Appointment: Mishel Wilson WPtel: [address] [place], [place] [phone] (15 min) Moderate 07/20/2018 Patient Education: Patient Medication Summary Completed 07/20/2018 Visit Plan: URI -viral- Pt advised to increase fluids, vitamin C. Discussed natural and expected course of this diagnosis and need to alert me if symptoms do not follow expected course, or if any worse. RX sent to patient's pharmacy to start if needed. 07/07/2018 Appointment: Mishel Wilson WPtel: [phone] [phone] [place] (30 min) Complex 07/07/2018 Patient Education: Patient Medication Summary Completed 07/07/2018 Appointment: Magali Zepeda WPtel: [phone] [id number] [place] (15 min) Moderate 07/03/2018 Appointment: Lab [...] the house. 05/22/2018 Appointment: Magali Zepeda WPtel: [id number] [place] (15 min) Moderate 05/22/2018 Patient Education: Patient Medication Summary Completed 05/22/2018 Appointment: Mag[facility]epeda WPtel[id number] [place] (15 min) Moderate 05/15/2018 Visit [...] oversight post-operatively. 04/04/2018 Appointment: Magali Zepeda WPtel: [phone] [id number] [place] (15 min) Moderate 04/04/2018 Patient Education: Patient Medication Summary Completed 04/04/2018 Patient Education: Diarrhea Completed 04/04/2018 Visit Plan: Epilepsy - chronic - continue with current regimen - check labs. Osteoporosis - pt is currently getting Prolia in [place], this is a big burden for her - They have asked for her to be set up for prolia for at the end of may at [address]- to call with specific date. Dysuria - UA - +leukocytes - start on keflex - rx sent to pharmacy. Chronic constipation - monitor symptoms. Continue with supportive care. 02/16/2018 Appointment: Magali Zepeda WPtel: [phone] [facility] (15 min) Moderate 02/16/2018 Patient Education: Patient [...] regimen. 12/30/2017 Appointment: Mishel Wilson WPtel: [phone] [id number] [place] (30 min) Complex 12/30/2017 Patient Education: [...] regimen. 10/13/2017 Appointment: Magali Zepeda WPtel: [phone] [facility] (15 min) Moderate 10/13/2017 Patient Education: Patient Medication Summary Completed 10/13/2017 App[facility]ment[phone] [place] (15 min) Moderate 10/06/2017 Appointment: [...] the urine specimen on accident 07/12/2017 Appointment: [place] [phone] [place] (15 min) Moderate 07/12/2017 Patient Education: Patient Medication Summary Completed 07/12/2017 Appointment: [phone] (15 min) Moderate 07/05/2017 Visit Plan: [...] surrogate. 06/07/2017 Appointment: Windy Greco WPtel: [id number] [facility] - Annual Wellness Visit 06/07/2017 Patient [...] week. 05/24/2017 Appointment: Magali Zepeda WPtel: [facility]1 [facility] (15 min) Moderate 05/24/2017 Patient Education: Patient Medication Summary Completed 05/24/2017 Appointment: Magali Zepeda WPtel: [facility] (15 min) Moderate 05/11/2017 Visit Plan: [...] a week) 04/27/2017 Appointment: Magali Zepeda WPtel: [facility] (15 min) Moderate 04/27/2017 Patient Education: [...] symptoms. 04/13/2017 Appointment: Magali Zepeda WPtel: [phone] [facility] [place] (15 min) Moderate 04/13/2017 Patient Education: [...] strategy. 03/30/2017 Appointment: Magali Zepeda WPtel: [phone] [facility] [place] (15 min) Moderate 03/30/2017 Patient Education: [...] constipation. 03/02/2017 Appointment: Magali Zepeda WPtel: [phone] [facility] (30 min) Complex 03/02/2017 Patient Education: Patient Medication Summary Completed 03/02/2017 Visit Plan: RA and Gait abnormality -continue with current treatments - supportive care Suspect some of her movement abnormalities may be due to her lamotrigine. 08/30/2016 Appointment: Magali Zepeda WPtel: [phone] [facility] (30 min) Complex 08/30/2016 Patient Education: Patient [...] discharge. 08/11/2016 Appointment: Windy Greco WPtel: [phone] [facility] (30 min) Complex 08/11/2016 Patient Education: [...] surrogate. 06/01/2016 Appointment: Windy Greco WPtel: [phone] [facility] [facility] - Annual Wellness Visit 06/01/2016 Patient [...] regimen. 04/16/2016 Appointment: Mishel Wilson WPtel: [phone] (15 min) Moderate 04/16/2016 Patient Education: Patient Medication Summary Completed 04/16/2016 Visit Plan: RA and Gait abnormality - recommended pt to have referral to physical therapy at [facility]. Suspect some of her movement abnormalities may be due to her lamotrigine. 02/10/2016 Appointment: Magali Zepeda WPtel: [facility]4 [facility] [place] New Patient 02/10/2016 Patient Education: Patient [...] dilantin -repeat dilantin level in 1 week ADB-[id number] cefdinir-finish abx and let us know if [...] regimen. RECOMMEND PROBIOTIC-ANY BRAND IS FINE: [facility], ALIGN sign release for labs [...]
--- OUTSIDE RECORDS SUMMARY | 2018-12-30 22:50 | XMS REPORT | CCD ---
Author Author Magali Zepeda Organization Magali Zepeda MD, [facility] Address [address] [place] [address] Phone Care Team Providers Care Music Video Producer Name Role Phone PP Unavailable CCM Unavailable Summary Purpose Interface Exchange Insurance Providers Payer name Policy type / Coverage type Covered green party ID Effective Begin Date Effective End Date WPS Medicare Part B Medicare Part B [id number] Unknown [employer] Medicare Part B [id number] Unknown Family history Sister Diagnosis Age At [...] Unknown Retired 02/10/[address]: 261238223 Never smoker 02/10/[address]: 571833781 Never drinks alcohol 02/10/2016 Has the patient [...] Start Date Stop Date Status Fill Instructions Zithromax Z-Escobar 250 mg tablet RxNorm: 915322 2 po on first dose and 1 daily Tablet(s) PO 07/27/2018 No Stop Date Active zpack x 1 Mucinex 600 mg tablet, extended release RxNorm: 581173 1 Tablet(s) PO BID 07/27/2018 08/09/2018 Active Mucinex 600 mg tablet, extended release RxNorm: 477134 1 Tablet(s) PO BID 07/27/2018 07/26/2018 Inactive Dilantin Extended 100 mg capsule RxNorm: 022209 Capsule(s) TAKE 1 CAP TID ON Mon/urs AND 1 CAPSULE QID other days. if having symptoms of seizure activity, take an extra pill 07/20/2018 No Stop Date Active amoxicillin 500 mg tablet RxNorm: 276284 1 Tablet(s) PO TID 07/07/2018 07/13/2018 Inactive lamotrigine 100 mg tablet RxNorm: 322198 TAKE 1 TABLET BY MOUTH IN THE MORNING 07/03/2018 No Stop Date Active Keflex 500 mg capsule RxNorm: 235796 1 Capsule(s) PO QID 06/12/2018 06/18/2018 Inactive please call patient to let her know she needs to [facility] for antibiotic Dilantin Extended 100 mg capsule RxNorm: 934802 Capsule(s) TAKE 1 CAP TID ON //TUE AND 1 CAPSULE QID ON ///TUE. if having symptoms of seizure activity, take an extra pill 05/29/2018 07/19/2018 Inactive Dilantin Extended 100 mg capsule RxNorm: 205200 Capsule(s) TAKE 1 CAP TID x2 DAYS, THEN 1 CAPSULE qid x2 DAYs, THEN REPEAT CYCLE. if having symptoms of seizure activity, take an extra pill 05/22/2018 05/28/2018 Inactive lamotrigine 150 mg tablet RxNorm: 443533 TAKE 1 TABLET BY MOUTH AT BEDTIME 04/17/2018 No Stop Date Active Dilantin Extended 100 mg capsule RxNorm: 532462 TAKE 1 CAPSULE BY MOUTH THREE TIMES DAILY FOR 3 DAYS, THEN 1 CAPSULE FOUR TIMES DAILY FOR 1 DAY, THEN REPEAT CYCLE. 04/12/2018 05/21/2018 Inactive lamotrigine 100 mg tablet RxNorm: 026252 TAKE 1 TABLET BY MOUTH IN THE MORNING 03/31/2018 07/02/2018 Inactive dicyclomine 10 mg capsule RxNorm: 636571 TAKE ONE CAPSULE BY MOUTH TWICE DAILY NEEDED 02/20/2018 No Stop Date Active Penlac 8 % topical solution RxNorm: 847044 1 Application TOP daily clean off every 7 days and restart application process 02/16/2018 09/13/2018 Active ok to dispense generic Keflex 500 mg capsule RxNorm: 324817 1 Capsule(s) PO QID 02/16/2018 02/22/2018 Inactive please call patient to let her know she needs to [facility] rx for antibiotic Dilantin Extended 100 mg capsule RxNorm: 885125 Capsule(s) PO UD 1 cap TID x 3 days then 1 cap qid x 1 day then repeat cycle 12/15/2017 04/11/2018 Inactive give 1 month supply lamotrigine 150 mg tablet RxNorm: 883483 1 Tablet(s) PO QHS 12/07/2017 04/05/2018 Inactive lamotrigine 100 mg tablet RxNorm: 053812 1 Tablet(s) PO QAM 12/07/2017 03/30/2018 Inactive Levaquin 500 mg tablet RxNorm: 951547 1 Tablet(s) PO daily 12/05/2017 12/11/2017 Inactive Keflex 500 mg capsule RxNorm: 806106 1 Capsule(s) PO TID 11/14/2017 11/20/2017 Inactive Keflex 500 mg capsule RxNorm: 766503 1 Capsule(s) PO TID 11/14/2017 11/13/2017 Inactive Dilantin Extended 100 mg capsule RxNorm: 837021 Capsule(s) PO UD m3pill/tue3 pill/wed 4 pill/ thur 2pill/fri 3pill/sat 4pill/sun 3 pill 10/13/2017 12/14/2017 Inactive Dilantin Extended 100 mg capsule RxNorm: 449247 Capsule(s) PO UD -Alternate 300 mg for two days in a row and then 400 mg for one day and repeat cycle 10/04/2017 10/12/2017 Inactive Augmentin 500 mg-125 mg tablet RxNorm: 456840 1 Tablet(s) PO TID 07/15/2017 07/14/2017 Inactive Augmentin 500 mg-125 mg tablet RxNorm: 434018 1 Tablet(s) PO TID 07/15/2017 07/21/2017 Inactive Dilantin Extended 100 mg capsule RxNorm: 909959 1 Capsule(s) PO daily -Alternate 300 mg and 400 mg every other day 06/07/2017 10/03/2017 Inactive Bactrim DS 800 mg-160 mg tablet RxNorm: 745983 1 Tablet(s) PO BID 05/02/2017 05/08/2017 Inactive Dilantin Extended 100 mg capsule RxNorm: 110298 1 Capsule(s) PO daily in the afternoon and 2 Capsules PO HS- Will take an additional pill if she has a lot of jerking 04/27/2017 06/06/2017 Inactive Keflex 500 mg capsule RxNorm: 321831 1 Capsule(s) PO TID 04/19/2017 04/23/2017 Inactive dicyclomine 10 mg capsule RxNorm: 466902 1 Capsule(s) PO BID as needed 03/30/2017 05/28/2017 Inactive Senna with Docusate Sodium 8.6 mg-50 mg tablet RxNorm: 603383 1 Tablet(s) PO BID as needed constipation 03/02/2017 07/29/2017 Inactive Keflex 500 mg capsule RxNorm: 542434 1 Capsule(s) PO TID 08/11/2016 08/20/2016 Inactive Levaquin 500 mg tablet RxNorm: 319794 1 Tablet(s) PO daily 04/16/2016 04/22/2016 Inactive ciprofloxacin 500 mg tablet RxNorm: 378626 1 Tablet(s) PO BID 02/10/2016 02/16/2016 Inactive prednisone 10 mg tablet RxNorm: 984278 1 Tablet(s) PO as needed for pain No Start Date Active Prolia 60 mg/mL subcutaneous syringe RxNorm: 372599 1 injection SQ Q6 months No Start Date Active lamotrigine 150 mg tablet RxNorm: 098574 1 Tablet(s) PO QHS No Start Date 12/06/2017 Inactive lamotrigine 100 mg tablet RxNorm: 059983 1 Tablet(s) PO QAM No Start Date 12/06/2017 Inactive Dilantin Extended 100 mg capsule RxNorm: 390432 Capsule(s) PO TAKES FOUR CAPSULES FOR 2 DAYS, THEN THREE CAPSULES FOR 1 DAY, THEN REPEATS No Start Date 04/26/2017 Inactive Zithromax Z-Escobar 250 mg tablet RxNorm: 239723 2 po on first dose and 1 daily Tablet(s) PO No Start Date 07/26/2018 Inactive zpack x 1 Humira 20 mg/0.4 mL subcutaneous syringe kit RxNorm: 368358 1 injection SQ every 2 weeks- Prescribed [...] Item Code Result Date Dilantin Ord7 DILANTIN 17.9 UG/ML 08/03/2018 Urine Culture Ucult Complete Growth of aerobe sent to ref lab 06/14/2018 Dilantin Ord7 DILANTIN 10.5 UG/ML 05/11/2018 Comp Metabolic Wdy839 NA 138 mEq/L 05/11/2018 Comp Metabolic Seb903 K 4.0 mEq/L 05/11/2018 Comp Metabolic Pql043 CL 100 mEq/L 05/11/2018 Comp Metabolic Wpq673 CO2 29.0 mEq/L 05/11/2018 Comp Metabolic Yom938 ANION GAP 13 05/11/2018 Comp Metabolic Qmt931 GLUCOSE 84 mg/dL 05/11/2018 Comp Metabolic Vzn962 Creat 0.8 mg/dL 05/11/2018 Comp Metabolic Bqn574 eGFR 77 ml/min/1.73m2 05/11/2018 Comp Metabolic Hbv505 BUN 26 mg/dL 05/11/2018 Comp Metabolic Heo866 B/C Ratio 33.3 Ratio 05/11/2018 Comp Metabolic Dsl016 CALCIUM 9.1 mg/dL 05/11/2018 Comp Metabolic Lkm141 ALK PHOS 97 U/L 05/11/2018 Comp Metabolic Mka563 AST(SGOT) 14 U/L 05/11/2018 Comp Metabolic Bqp537 ALT(SGPT) 7 U/L 05/11/2018 Comp Metabolic Wsh528 BILI T 0.3 mg/dL 05/11/2018 Comp Metabolic Lfr362 ALBUMIN 3.6 g/dL 05/11/2018 Comp Metabolic Zpj741 TPRO 6.9 g/dL 05/11/2018 Comp Metabolic Vcp611 GLOB 3.3 g/dL 05/11/2018 Comp Metabolic Bru858 A/G Ratio 1.1 Ratio 05/11/2018 Comp Metabolic Tzw258 Osmo 280 mOsmo 05/11/2018 Dilantin Ord7 DILANTIN 10.7 UG/ML 04/25/2018 Valproic Acid Bwv877 VALPROIC <10 ug/ml 04/24/2018 Dilantin Ord7 DILANTIN 10.6 UG/ML 04/11/2018 Culture Urine [id number] URINE CULTURE SEE NOTES 02/20/2018 Culture Urine [id number] Continued Results 02/20/2018 Urine Culture Ucult Complete >100,000 col/ml aerobic growth sent to ref lab 02/17/2018 Dilantin Ord7 DILANTIN 14.4 UG/ML 02/16/2018 Comp Metabolic Cgg325 NA 135 mEq/L 02/16/2018 Comp Metabolic Mhg148 K 3.8 mEq/L 02/16/2018 Comp Metabolic Jco873 CL 99 mEq/L 02/16/2018 Comp Metabolic Tue403 CO2 28.0 mEq/L 02/16/2018 Comp Metabolic Ysp578 ANION GAP 12 02/16/2018 Comp Metabolic Jtl137 GLUCOSE 101 mg/dL 02/16/2018 Comp Metabolic Tep185 Creat 0.8 mg/dL 02/16/2018 Comp Metabolic Dci283 eGFR 75 ml/min/1.73m2 02/16/2018 Comp Metabolic Swd841 BUN 20 mg/dL 02/16/2018 Comp Metabolic Mec786 B/C Ratio 25.0 Ratio 02/16/2018 Comp Metabolic Fos365 CALCIUM 8.9 mg/dL 02/16/2018 Comp Metabolic Qtz457 ALK PHOS 95 U/L 02/16/2018 Comp Metabolic Isc729 AST(SGOT) 13 U/L 02/16/2018 Comp Metabolic Fyz433 ALT(SGPT) 7 U/L 02/16/2018 Comp Metabolic Cdx968 BILI T 0.4 mg/dL 02/16/2018 Comp Metabolic Gna721 ALBUMIN 3.6 g/dL 02/16/2018 Comp Metabolic Oej444 TPRO 7.2 g/dL 02/16/2018 Comp Metabolic Lqj896 GLOB 3.6 g/dL 02/16/2018 Comp Metabolic Kwc032 A/G Ratio 1.0 Ratio 02/16/2018 Comp Metabolic Quv064 Osmo 273 mOsmo 02/16/2018 Urine Culture Ucult Complete >100,000 col/ml aerobic growth sent to ref lab 11/15/2017 Comp Metabolic Qmo270 NA 136 mEq/L 10/13/2017 Comp Metabolic Dlg759 K 4.0 mEq/L 10/13/2017 Comp Metabolic Vdg563 CL 98 mEq/L 10/13/2017 Comp Metabolic Vjc968 CO2 28.0 mEq/L 10/13/2017 Comp Metabolic Wzl993 ANION GAP 14 10/13/2017 Comp Metabolic Icx740 GLUCOSE 94 mg/dL 10/13/2017 Comp Metabolic Coi922 Creat 0.7 mg/dL 10/13/2017 Comp Metabolic Vcb317 eGFR 82 ml/min/1.73m2 10/13/2017 Comp Metabolic Dll636 BUN 26 mg/dL 10/13/2017 Comp Metabolic Psh879 B/C Ratio 35.1 Ratio 10/13/2017 Comp Metabolic Ctb187 CALCIUM 9.1 mg/dL 10/13/2017 Comp Metabolic Pxp283 ALK PHOS 98 U/L 10/13/2017 Comp Metabolic Cnh254 AST(SGOT) 15 U/L 10/13/2017 Comp Metabolic Izr174 ALT(SGPT) 8 U/L 10/13/2017 Comp Metabolic Yys266 BILI T 0.4 mg/dL 10/13/2017 Comp Metabolic Uaq532 ALBUMIN 3.7 g/dL 10/13/2017 Comp Metabolic Ykh133 TPRO 7.8 g/dL 10/13/2017 Comp Metabolic Vbi429 GLOB 4.1 g/dL 10/13/2017 Comp Metabolic Qzc780 A/G Ratio 0.9 Ratio 10/13/2017 Comp Metabolic Yed371 Osmo 276 mOsmo 10/13/2017 Dilantin Ord7 DILANTIN 21.4 Result Verified By Repeat Analysis UG/ML 10/13/2017 Dilantin Ord7 DILANTIN 24.1 Result Verified By Repeat Analysis UG/ML 10/03/2017 Dilantin Ord7 DILANTIN 18.1 UG/ML 06/30/2017 Dilantin Ord7 DILANTIN 22.7 UG/ML 06/16/2017 Dilantin Ord7 DILANTIN 26.1 UG/ML 06/07/2017 Dilantin Ord7 DILANTIN 24.1 UG/ML 05/24/2017 Dilantin Ord7 DILANTIN 19.6 UG/ML 05/11/2017 Culture Urine [id number] URINE CULTURE SEE NOTES 05/06/2017 Culture Urine [id number] Continued Results 05/06/2017 Urine Culture Ucult Complete >100,000 col/ml aerobic growth sent to ref lab 05/03/2017 Dilantin Ord7 DILANTIN 12.6 UG/ML 04/27/2017 Calcium Ord79 CALCIUM 9.3 mg/dL 04/19/2017 Dilantin Ord7 DILANTIN 21.6 UG/ML 04/19/2017 Dilantin Ord7 DILANTIN 10.3 UG/ML 04/13/2017 Dilantin Ord7 DILANTIN 21.9 UG/ML 04/07/2017 Comp Metabolic Kon795 NA 137 mEq/L 03/30/2017 Comp Metabolic Cte803 K 3.7 mEq/L 03/30/2017 Comp Metabolic Ewm204 CL 98 mEq/L 03/30/2017 Comp Metabolic Ixy060 CO2 29.0 mEq/L 03/30/2017 Comp Metabolic Pyb351 ANION GAP 14 03/30/2017 Comp Metabolic Hvh681 GLUCOSE 100 mg/dL 03/30/2017 Comp Metabolic Uqq699 Creat 0.9 mg/dL 03/30/2017 Comp Metabolic Bhn781 eGFR 88 ml/min/1.73m2 03/30/2017 Comp Metabolic Hrt123 BUN 22 mg/dL 03/30/2017 Comp Metabolic Guf417 B/C Ratio 24.4 Ratio 03/30/2017 Comp Metabolic Gcr792 CALCIUM 9.4 mg/dL 03/30/2017 Comp Metabolic Esu376 ALK PHOS 113 U/L 03/30/2017 Comp Metabolic Oqq145 AST(SGOT) 16 U/L 03/30/2017 Comp Metabolic Fql217 ALT(SGPT) 7 U/L 03/30/2017 Comp Metabolic Rrt754 BILI T 0.3 mg/dL 03/30/2017 Comp Metabolic Plc745 ALBUMIN 3.9 g/dL 03/30/2017 Comp Metabolic Uul959 TPRO 8.0 g/dL 03/30/2017 Comp Metabolic Kif821 GLOB 4.1 g/dL 03/30/2017 Comp Metabolic Bmw732 A/G Ratio 0.9 Ratio 03/30/2017 Comp Metabolic Biy668 Osmo 277 mOsmo 03/30/2017 Lipid Ord30 CHOL 214 mg/dL 03/30/2017 Lipid Ord30 HDL 61.0 mg/dl 03/30/2017 Lipid Ord30 TRIG 130 mg/dL 03/30/2017 Lipid Ord30 LDL 127 mg/dL 03/30/2017 Lipid Ord30 C/HDL 3.5 Ratio 03/30/2017 Dilantin Ord7 DILANTIN 32.5 UG/ML 03/30/2017 Folate Ord36 Folate 16.46 ng/mL 03/30/2017 Tsh Ord6 hTSH II 0.95 uIU/mL 03/30/2017 B12 Cnc044 B12 592.00 pg/ml 03/30/2017 Cbc With Differential [...] 30.9 pg 03/30/2017 Cbc With Differential Ord2 [place]% 23.9 % 03/30/2017 Cbc With Differential Ord2 [...] 0.44 K/ul 03/30/2017 Cbc With Differential Ord2 [place] ABS# 0.3 K/ul 03/30/2017 Cbc With Differential [...] 30.3 pg 08/11/2016 Cbc With Differential Ord2 [place]% 31.7 % 08/11/2016 Cbc With Differential Ord2 [...] 0.59 K/ul 08/11/2016 Cbc With Differential Ord2 [place] ABS# 0.6 K/ul 08/11/2016 Cbc With Differential Ord2 Eos ABS# 0.0 K/ul 08/11/2016 Cbc With Differential Ord2 Baso ABS# 0.0 K/ul 08/11/2016 Dilantin Ord7 DILANTIN 17.2 UG/ML 08/11/2016 Tsh Ord6 hTSH II 0.82 uIU/mL 08/11/2016 Comp Metabolic Xlq140 NA 131 mEq/L 08/11/2016 Comp Metabolic Lez926 K 4.1 mEq/L 08/11/2016 Comp Metabolic Soo162 CL 93 mEq/L 08/11/2016 Comp Metabolic Twa324 CO2 29.0 mEq/L 08/11/2016 Comp Metabolic Auo132 ANION GAP 13 08/11/2016 Comp Metabolic Swd216 GLUCOSE 120 mg/dL 08/11/2016 Comp Metabolic Hso072 Creat 0.8 mg/dL 08/11/2016 Comp Metabolic Hbz022 eGFR 101 ml/min/1.73m2 08/11/2016 Comp Metabolic Eha136 BUN 18 mg/dL 08/11/2016 Comp Metabolic Ymc716 B/C Ratio 22.5 Ratio 08/11/2016 Comp Metabolic Evv259 CALCIUM 9.5 mg/dL 08/11/2016 Comp Metabolic Cyi169 ALK PHOS 104 U/L 08/11/2016 Comp Metabolic Rjt700 AST(SGOT) 16 U/L 08/11/2016 Comp Metabolic Bzp457 ALT(SGPT) 8 U/L 08/11/2016 Comp Metabolic Dws608 BILI T 0.4 mg/dL 08/11/2016 Comp Metabolic Ynm590 ALBUMIN 3.8 g/dL 08/11/2016 Comp Metabolic Odo394 TPRO 8.4 g/dL 08/11/2016 Comp Metabolic Icu071 GLOB 4.6 g/dL 08/11/2016 Comp Metabolic Zlw883 A/G Ratio 0.8 Ratio 08/11/2016 Comp Metabolic Kzh713 Osmo 266 mOsmo 08/11/2016 Culture Urine [id number] URINE CULTURE SEE NOTES 04/19/2016 Culture Urine [id number] Continued Results 04/19/2016 Urine Culture Ucult Complete >100,000 col/ml aerobic growth sent to ref lab 04/17/2016 Culture Urine [id number] URINE CULTURE SEE NOTES 02/13/2016 Culture Urine [id number] Continued Results 02/13/2016 Urine Culture Ucult Complete [...] Codes Date URINALYSIS NONAUTO W/O SCOPE CPT-4: 33114 08/07/2018 URINALYSIS NONAUTO W/O SCOPE CPT-4: 84044 06/12/2018 URINALYSIS NONAUTO W/O SCOPE CPT-4: 94515 02/16/2018 URINALYSIS NONAUTO W/O SCOPE CPT-4: 36630 11/14/2017 PPPS, SUBSEQ VISIT CPT- 4: G0439 06/07/2017 URINALYSIS NONAUTO W/O SCOPE CPT-4: 69141 05/02/2017 URINALYSIS NONAUTO W/O SCOPE CPT-4: 45422 04/26/2017 PPPS, SUBSEQ VISIT CPT- 4: G0439 06/01/2016 URINALYSIS NONAUTO W/O SCOPE CPT-4: 15822 04/16/2016 URINALYSIS NONAUTO W/O SCOPE CPT-4: 48393 02/10/2016 Vital Signs Date Vital 07/20/2018 Blood Pressure 1: 104/60 Code: 8480-6 Heart Rate 1: 122 bpm Height: 5'5" SpO2: 94% Temperature: 36.7 (C) / 98.1 (F) Weight: 07/07/2018 Blood Pressure 1: 110/62 Code: 8480-6 BMI: 18.8 Code: 43769-6 Heart Rate 1: 67 bpm Height: 5'5" Temperature: 36.8 (C) / 98.2 (F) Weight: 113 lbs 05/22/2018 Blood Pressure 1: 112/68 Code: 8480-6 BMI: 18.6 Code: 75610-2 Heart Rate 1: 128 bpm Height: 5'5" SpO2: 98% Weight: 112 lbs 04/04/2018 Blood Pressure 1: 94/52 Code: 8480-6 Heart Rate 1: 120 bpm Height: 5'5" Respiratory Rate: 18 bpm SpO2: 98% Weight: 02/16/2018 Blood Pressure 1: 120/70 Code: 8480-6 BMI: 19.1 Code: 01074-9 Heart Rate 1: 115 bpm Height: 5'5" SpO2: 97% Weight: 115 lbs 12/30/2017 Blood Pressure 1: 100/68 Code: 8480-6 BMI: 18.3 Code: 64594-8 Heart Rate 1: 120 bpm Height: 5'5" SpO2: 94% Weight: 110 lbs 10/13/2017 Blood Pressure 1: 136/78 Code: 8480-6 BMI: 18.1 Code: 74463-3 Heart Rate 1: 126 bpm Height: 5'5" SpO2: 96% Weight: 109 lbs 07/12/2017 Blood Pressure 1: 100/56 Code: 8480-6 BMI: 18.1 Code: 82182-2 Heart Rate 1: 123 bpm Height: 5'5" SpO2: 99% Weight: 109 lbs 06/07/2017 Blood Pressure 1: 98/68 Code: 8480-6 BMI: 18.1 Code: 00321- 5 Heart Rate 1: 120 bpm Height: 5'5" SpO2: 99% Waist Measure (cm): 80 cm Weight: 109 lbs 05/24/2017 Blood Pressure 1: 104/62 Code: 8480-6 BMI: 18.1 Code: 74654-3 Heart Rate 1: 121 bpm Height: 5'5" SpO2: 97% Weight: 109 lbs 04/27/2017 Blood Pressure 1: 132/84 Code: 8480-6 BMI: 17.8 Code: 43172-1 Heart Rate 1: 129 bpm Height: 5'5" SpO2: 99% Weight: 107 lbs 04/13/2017 Blood Pressure 1: 100/66 Code: 8480-6 Heart Rate 1: 120 bpm Height: 5'5" SpO2: 99% Weight: 03/30/2017 Blood Pressure 1: 112/66 Code: 8480-6 BMI: 17.8 Code: 81268-9 Heart Rate 1: 112 bpm Height: 5'5" SpO2: 98% Weight: 107 lbs 03/02/2017 Blood Pressure 1: 128/78 Code: 8480-6 BMI: 18.1 Code: 78335-4 Heart Rate 1: 86 bpm Height: 5'5" SpO2: 95% Weight: 109 lbs 08/30/2016 Blood Pressure 1: 102/60 Code: 8480-6 BMI: 18.1 Code: 80750-0 Heart Rate 1: 135 bpm Height: 5'5" SpO2: 98% Weight: 109 lbs 08/11/2016 Blood Pressure 1: 100/66 Code: 8480-6 BMI: 18.6 Code: 04139-6 Heart Rate 1: 86 bpm Height: 5'5" SpO2: 94% Weight: 112 lbs 06/01/2016 Blood Pressure 1: 126/80 Code: 8480-6 BMI: 19.0 Code: 74054-4 Heart Rate 1: 100 bpm Height: 5'5" SpO2: 98% Waist Measure (cm): 64 cm Weight: 114 lbs 04/16/2016 Blood Pressure 1: 124/80 Code: 8480-6 Heart Rate 1: 110 bpm SpO2: 97% 02/10/2016 Blood Pressure 1: 102/64 Code: 8480-6 BMI: 18.3 Code: 77528-8 Heart Rate 1: 114 bpm Height: 5'5" [...] Present Encounters Encounter Performer Location Codes Date ([id number]) 69808 EST. PATIENT, LEVEL III Diagnosis: Cough[ICD10: R05] Diagnosis: Other epilepsy, not intractable, without status epilepticus[ICD10: G40.802] [facility] CPT-4: 01149 07/20/2018 ([id number]) 32318 EST. PATIENT, LEVEL III Diagnosis: Cough[ICD10: R05] Diagnosis: Acute upper respiratory infection, unspecified[ICD10: J06.9] [facility] CPT-4: 95509 07/07/2018 [id number]) [id number] EST. PATIENT, LEVEL IV Diagnosis: Unsteadiness on feet[ICD10: R26.81] Diagnosis: Other abnormalities of gait and mobility[ICD10: R26.89] Diagnosis: Mixed incontinence[ICD10: N39.46] Diagnosis: Other epilepsy, not intractable, without status epilepticus[ICD10: G40.802] Magali Zepeda MD, [facility] CPT-4: 33480 05/22/2018 ([id number]) 87941 EST. PATIENT, LEVEL III Diagnosis: Right upper quadrant abdominal rigidity[ICD10: R19.31] Diagnosis: Functional diarrhea[ICD10: K59.1] Diagnosis: Calculus of gallbladder without cholecystitis without obstruction[ICD10: K80.20] Magali Zepeda MD, [facility] CPT-4: 42193 04/04/2018 ([id number]) 53916 EST. PATIENT, LEVEL IV Diagnosis: Other epilepsy, not intractable, without status epilepticus[ICD10: G40.802] Diagnosis: Slow transit constipation[ICD10: K59.01] Diagnosis: Dysuria[ICD10: R30.0] Diagnosis: Age-related osteoporosis without current pathological fracture[ICD10: M81.0] Magali Zepeda MD, [facility] CPT-4: 42424 02/16/2018 ([id number]) 22720 EST. PATIENT, LEVEL III Diagnosis: Slow transit constipation[ICD10: K59.01] Mishel Zepeda MD, [facility] CPT-4: 92052 12/30/2017 ([id number]) 25427 EST. PATIENT, LEVEL IV Diagnosis: Other epilepsy, not intractable, without status epilepticus[ICD10: G40.802] Diagnosis: Slow transit constipation[ICD10: K59.01] Magali Zepeda MD, [facility] CPT-4: 89000 10/13/2017 ([id number]) 98617 EST. PATIENT, LEVEL III Diagnosis: Other epilepsy, not intractable, without status epilepticus[ICD10: G40.802] Diagnosis: Dysuria[ICD10: R30.0] Diagnosis: Mixed incontinence[ICD10: N39.46] Magali Zepeda MD, [facility] CPT- 4: 92022 07/12/2017 ([id number]) 32321 EST. 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 PATIENT, LEVEL III Diagnosis: Other epilepsy, not intractable, without status epilepticus[ICD10: G40.802] Magali Zepeda MD [facility] CPT-4: 92371 04/27/2017 ([id number] 58713 EST. 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 PATIENT, LEVEL IV Diagnosis: Calculus of gallbladder without cholecystitis without obstruction[ICD10: K80.20] Diagnosis: Benign paroxysmal vertigo, bilateral[ICD10: H81.13] Diagnosis: Slow transit constipation[ICD10: K59.01] Magali Zepeda MD, [facility] CPT-4: 57720 03/02/2017 ([id number]) 31695 EST. 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 PATIENT, LEVEL IV Diagnosis: Other epilepsy, not intractable, without status epilepticus[ICD10: G40.802] Diagnosis: Low back pain[ICD10: M54.5] Diagnosis: Pressure ulcer of sacral region, stage 1[ICD10: L89.151] [facility] CPT-4: 76970 08/11/2016 ([id number]) 19194 EST. PATIENT, LEVEL III Diagnosis: Urinary tract infection, site not specified[ICD10: N39.0] Diagnosis: Slow transit constipation[ICD10: K59.01] [facility] CPT-4: 25122 04/16/2016 ([id number]) OFFICE VISIT, NEW - LEVEL 4 Diagnosis: Other abnormalities of gait and mobility[ICD10: R26.89] Diagnosis: Dysuria[ICD10: R30.0] Diagnosis: Rheumatoid arthritis without rheumatoid factor, multiple sites[ICD10: M06.09] Magali Zepeda MD, [facility] CPT-4: 22590 02/10/2016 Plan of Care Planned Activity Notes Codes Status Date Patient Education: Patient Medication Summary Completed 08/07/2018 Care Plan: Urine Culture Pending 08/07/2018 Patient Education: Patient Medication Summary Completed 08/03/2018 Visit Plan: Seizures -increase dilantin -repeat dilantin level in 1 week MXN-grqyc-mh cefdinir-finish abx and let us know if your symptoms do not resolve or if any worse 07/20/2018 Appointment: Mishel Wilson WPtel: [address] [place], [place] [phone] (15 min) Moderate 07/20/2018 Patient Education: Patient Medication Summary Completed 07/20/2018 Visit Plan: URI -viral- Pt advised to increase fluids, vitamin C. Discussed natural and expected course of this diagnosis and need to alert me if symptoms do not follow expected course, or if any worse. RX sent to patient's pharmacy to start if needed. 07/07/2018 Appointment: Mishel Wilson WPtel: [address] [place], [place] [phone] [place] (30 min) Complex 07/07/2018 Patient Education: Patient Medication Summary Completed 07/07/2018 [facility] [phone] [facility] [place] (15 min) Moderate 07/03/2018 Appointment: Lab [...] the house. 05/22/2018 Appointment: Magali Zepeda WPtel: [phone] (15 min) Moderate 05/22/2018 Patient Education: Patient Medication Summary Completed 05/22/2018 Appointment: Magali Zepeda WPtel: [phone] [phone] [place] (15 min) Moderate 05/15/2018 Visit Plan: [...] gallbladder. 04/04/2018 Appointment: Magali Zepeda WPtel: [phone] [facility] [place] (15 min) Moderate 04/04/2018 Patient Education: Patient Medication Summary Completed 04/04/2018 Patient Education: Diarrhea Completed 04/04/2018 Visit Plan: Epilepsy - chronic - continue with current regimen - check labs. Osteoporosis - pt is currently getting Prolia in [place], this is a big burden for her - They have asked for her to be set up for prolia for at the end of may at [address]- to call with specific date. Dysuria - UA - +leukocytes - start on keflex - rx sent to pharmacy. Chronic constipation - monitor symptoms. Continue with supportive care. 02/16/2018 Appointment: Magali Zepeda WPtel: [phone] [facility] [place] (15 min) Moderate 02/16/2018 Patient Education: [...] regimen. 12/30/2017 Appointment: Mishel Wilson WPtel: [phone] [phone] [place] (30 min) Complex 12/30/2017 Patient [...] regimen. 10/13/2017 [phone] [place] ([facility]) Moderate 10/13/2017 Patient Education: Patient Medication Summary Completed 10/13/2017 Appointment: Magali Zepeda WPtel: [phone] [facility] [place] (15 min) Moderate 10/06/2017 Appointment: Lab [...] accident 07/12/2017 [phone] [place] ([facility]) Moderate 07/12/2017 Patient Education: Patient Medication Summary Completed 07/12/2017 [phone] ([facility] min) Moderate 07/05/2017 Visit [...] surrogate. 06/07/2017 [phone] [facility] - Annual Wellness Visit [...] week. 05/24/2017 Appointment: Magali Zepeda WPtel: [phone] [phone] (15 min) Moderate 05/24/2017 Patient Education: Patient Medication Summary Completed 05/24/2017 Appointment: Magali Zepeda WPtel: [facility] (15 min) Moderate 05/11/2017 Visit Plan: [...] week) 04/27/2017 [facility]ment[phone] ([facility]) Moderate 04/27/2017 Patient [...] symptoms. 04/13/2017 Appointment: Magali Zepeda WPtel: [phone] [facility] [place] (15 min) Moderate 04/13/2017 Patient Education: [...] strategy. 03/30/2017 Appointment: Magali Zepeda WPtel: [phone] [facility] [place] (15 min) Moderate 03/30/2017 Patient Education: [...] for constipation. 03/02/2017 Appointment: Magali Zepeda WPtel: [phone] [facility] [place] (30 min) Complex 03/02/2017 Patient Education: Patient Medication Summary Completed 03/02/2017 Visit Plan: RA and Gait abnormality -continue with current treatments - supportive care Suspect some of her movement abnormalities may be due to her lamotrigine. 08/30/2016 Appointment: Duane Magali WPtel: [facility]8 [facility] (30 min) Complex 08/30/2016 Patient Education: Patient [...] warmth, discharge. 08/11/2016 Appointment: Windy Greco WPtel: [facility]8 [facility] (30 min) Complex 08/11/2016 Patient Education: Patient [...] care surrogate. 06/01/2016 Appointment: Windy Greco WPtel: [facility] [facility] - Annual Wellness Visit [...] this regimen. 04/16/2016 Appointment: Mishel Wilson WPtel: [phone] [phone] (15 min) Moderate 04/16/2016 Patient Education: Patient Medication Summary Completed 04/16/2016 Visit Plan: RA and Gait abnormality - recommended pt to have referral to physical therapy at [facility]. Suspect some of her movement abnormalities may be due to her lamotrigine. 02/10/2016 App[facility]ment: [phone] [facility] 02/10/2016 Patient Education: [...] patient's pharmacy to start if needed. . UTI - pt with positive urinalysis - culture sent if appropriate. Antibiotic electronically prescribed to pt's pharmacy of choice. Pt to call if symptoms do not improve. Okay to add miralax as directed . [...] to have referral to physical therapy at [facility]. Suspect some of her movement abnormalities may [...] if symptoms not improved on this regimen. Repeat dilantin level increase to 4/day daily except 3/day on Tuesday/ take a probiotic whiile on antibiotic . Seizures -increase dilantin -repeat dilantin level in 1 week [id number] cefdinir-finish abx and let us know if [...] care surrogate. RECOMMEND PROBIOTIC-[employer] BRAND IS FINE: [employer], ALIGN sign release for labs from DR [...] - pt is currently getting Prolia in [place], this is a big burden for her [...] of gallbladder. . Epilepsy - chronic - pt on dilantin - check labs today. Dilantin level elevated - at 24 - discussed with pt on the phone and we are planning on patient to have Dilantin 3 tabs 4 days per week and 4 tabs 3 times per week.
--- OUTSIDE RECORDS SUMMARY | 2018-12-30 22:52 | XMS REPORT | CCD ---
Author Author Magali Zepeda Organization Magali Zepeda MD, [facility] Address [address] [place] [address] Phone Care Team Providers Care Mix Technician Name Role Phone PP Unavailable CCM Unavailable Summary Purpose Interface Exchange Insurance Providers Payer name Policy type / Coverage type Covered constitution party ID Effective Begin Date Effective End Date WPS Medicare Part B Medicare Part B [id number] Unknown [employer] [place] Medicare Part B [id number] Unknown Family history Sister Diagnosis Age At [...] Unknown Retired 02/10/[address]: 619567904 Never smoker 02/10/[address]: 548571569 Never drinks alcohol 02/10/2016 Has the patient ever used illegal drugs? Unknown Has never used illegal drugs 02/10/2016 Allergies, Adverse Reactions, Alerts Substance Reaction Codes Entered Date Inactivated Date Status * NO KNOWN DRUG ALLERGIES Unknown 02/10/2016 No Inactive Date Active Past Medical History Illness Codes Condition Status Onset Date Resolved Date Generalized idiopathic epilepsy and epileptic syndromes, not intractable, with status epilepticus ICD-9: 345.3 ICD-10: G40.301 Active 08/30/2016 Unknown Cough ICD-9: 786.2 ICD-10: R05 Active 07/07/2018 Unknown Other epilepsy, not intractable, without status epilepticus ICD-9: 345.10 ICD-10: G40.802 Active 08/11/2016 Unknown Acute upper respiratory infection, unspecified ICD-9: 465.9 ICD-10: J06.9 Active 07/07/2018 Unknown Dysuria ICD-9: 788.1 ICD-10: R30.0 Active 02/09/2016 Unknown Mixed incontinence ICD- 9: 788.33 ICD-10: [...] Problems Condition Codes Effective Dates Condition Status Generalized idiopathic epilepsy and epileptic syndromes, not intractable, with status epilepticus ICD-9: 345.3 ICD-10: G40.301 08/30/2016 Active Cough ICD-9: 786.2 ICD-10: R05 07/07/2018 Active Other epilepsy, not intractable, without status epilepticus ICD-9: 345.10 ICD-10: G40.802 08/11/2016 Active Acute upper respiratory infection, unspecified ICD-9: 465.9 ICD-10: J06.9 07/07/2018 Active Dysuria ICD-9: 788.1 ICD-10: R30.0 02/09/2016 Active Mixed incontinence ICD- 9: 788.33 ICD-10: [...] Instructions Zithromax Z-Escobar 250 mg tablet RxNorm: 206258 2 po on first dose and 1 daily Tablet(s) PO 07/27/2018 No Stop Date Active zpack x 1 Mucinex 600 mg tablet, extended release RxNorm: 661425 1 Tablet(s) PO BID 07/27/2018 08/09/2018 Active Mucinex 600 mg tablet, extended release RxNorm: 420185 1 Tablet(s) PO BID 07/27/2018 07/26/2018 Inactive Dilantin Extended 100 mg capsule RxNorm: 576429 Capsule(s) TAKE 1 CAP TID ON Mon/urs AND 1 CAPSULE QID other days. if having symptoms of seizure activity, take an extra pill 07/20/2018 No Stop Date Active amoxicillin 500 mg tablet RxNorm: 000995 1 Tablet(s) PO TID 07/07/2018 07/13/2018 Inactive lamotrigine 100 mg tablet RxNorm: 484348 TAKE 1 TABLET BY MOUTH IN THE MORNING 07/03/2018 No Stop Date Active Keflex 500 mg capsule RxNorm: 089864 1 Capsule(s) PO QID 06/12/2018 06/18/2018 Inactive please call patient to let her know she needs to package pick up rx for antibiotic Dilantin Extended 100 mg capsule RxNorm: 935227 Capsule(s) TAKE 1 CAP TID ON //TUE AND 1 CAPSULE QID ON ///TUE. if having symptoms of seizure activity, take an extra pill 05/29/2018 07/19/2018 Inactive Dilantin Extended 100 mg capsule RxNorm: 340064 Capsule(s) TAKE 1 CAP TID x2 DAYS, THEN 1 CAPSULE qid x2 DAYs, THEN REPEAT CYCLE. if having symptoms of seizure activity, take an extra pill 05/22/2018 05/28/2018 Inactive lamotrigine 150 mg tablet RxNorm: 661612 TAKE 1 TABLET BY MOUTH AT BEDTIME 04/17/2018 No Stop Date Active Dilantin Extended 100 mg capsule RxNorm: 961194 TAKE 1 CAPSULE BY MOUTH THREE TIMES DAILY FOR 3 DAYS, THEN 1 CAPSULE FOUR TIMES DAILY FOR 1 DAY, THEN REPEAT CYCLE. 04/12/2018 05/21/2018 Inactive lamotrigine 100 mg tablet RxNorm: 918099 TAKE 1 TABLET BY MOUTH IN THE MORNING 03/31/2018 07/02/2018 Inactive dicyclomine 10 mg capsule RxNorm: 335623 TAKE ONE CAPSULE BY MOUTH TWICE DAILY NEEDED 02/20/2018 No Stop Date Active Penlac 8 % topical solution RxNorm: 241570 1 Application TOP daily clean off every 7 days and restart application process 02/16/2018 09/13/2018 Active ok to dispense generic Keflex 500 mg capsule RxNorm: 312674 1 Capsule(s) PO QID 02/16/2018 02/22/2018 Inactive please call patient to let her know she needs to package pick up rx for antibiotic Dilantin Extended 100 mg capsule RxNorm: 257193 Capsule(s) PO UD 1 cap TID x 3 days then 1 cap qid x 1 day then repeat cycle 12/15/2017 04/11/2018 Inactive give 1 month supply lamotrigine 150 mg tablet RxNorm: 803932 1 Tablet(s) PO QHS 12/07/2017 04/05/2018 Inactive lamotrigine 100 mg tablet RxNorm: 753089 1 Tablet(s) PO QAM 12/07/2017 03/30/2018 Inactive Levaquin 500 mg tablet RxNorm: 929786 1 Tablet(s) PO daily 12/05/2017 12/11/2017 Inactive Keflex 500 mg capsule RxNorm: 374833 1 Capsule(s) PO TID 11/14/2017 11/20/2017 Inactive Keflex 500 mg capsule RxNorm: 731658 1 Capsule(s) PO TID 11/14/2017 11/13/2017 Inactive Dilantin Extended 100 mg capsule RxNorm: 213875 Capsule(s) PO UD m3pill/tue3 pill/wed 4 pill/ thur 2pill/fri 3pill/sat 4pill/sun 3 pill 10/13/2017 12/14/2017 Inactive Dilantin Extended 100 mg capsule RxNorm: 117023 Capsule(s) PO UD -Alternate 300 mg for two days in a row and then 400 mg for one day and repeat cycle 10/04/2017 10/12/2017 Inactive Augmentin 500 mg-125 mg tablet RxNorm: 220748 1 Tablet(s) PO TID 07/15/2017 07/14/2017 Inactive Augmentin 500 mg-125 mg tablet RxNorm: 118629 1 Tablet(s) PO TID 07/15/2017 07/21/2017 Inactive Dilantin Extended 100 mg capsule RxNorm: 724958 1 Capsule(s) PO daily -Alternate 300 mg and 400 mg every other day 06/07/2017 10/03/2017 Inactive Bactrim DS 800 mg-160 mg tablet RxNorm: 189107 1 Tablet(s) PO BID 05/02/2017 05/08/2017 Inactive Dilantin Extended 100 mg capsule RxNorm: 380458 1 Capsule(s) PO daily in the afternoon and 2 Capsules PO HS- Will take an additional pill if she has a lot of jerking 04/27/2017 06/06/2017 Inactive Keflex 500 mg capsule RxNorm: 209083 1 Capsule(s) PO TID 04/19/2017 04/23/2017 Inactive dicyclomine 10 mg capsule RxNorm: 262796 1 Capsule(s) PO BID as needed 03/30/2017 05/28/2017 Inactive Senna with Docusate Sodium 8.6 mg-50 mg tablet RxNorm: 490659 1 Tablet(s) PO BID as needed constipation 03/02/2017 07/29/2017 Inactive Keflex 500 mg capsule RxNorm: 496104 1 Capsule(s) PO TID 08/11/2016 08/20/2016 Inactive Levaquin 500 mg tablet RxNorm: 203905 1 Tablet(s) PO daily 04/16/2016 04/22/2016 Inactive ciprofloxacin 500 mg tablet RxNorm: 882487 1 Tablet(s) PO BID 02/10/2016 02/16/2016 Inactive prednisone 10 mg tablet RxNorm: 700866 1 Tablet(s) PO as needed for pain No Start Date Active Prolia 60 mg/mL subcutaneous syringe RxNorm: 803863 1 injection SQ Q6 months No Start Date Active lamotrigine 150 mg tablet RxNorm: 136827 1 Tablet(s) PO QHS No Start Date 12/06/2017 Inactive lamotrigine 100 mg tablet RxNorm: 940235 1 Tablet(s) PO QAM No Start Date 12/06/2017 Inactive Dilantin Extended 100 mg capsule RxNorm: 255710 Capsule(s) PO TAKES FOUR CAPSULES FOR 2 DAYS, THEN THREE CAPSULES FOR 1 DAY, THEN REPEATS No Start Date 04/26/2017 Inactive Zithromax Z-Escobar 250 mg tablet RxNorm: 312485 2 po on first dose and 1 daily Tablet(s) PO No Start Date 07/26/2018 Inactive zpack x 1 Humira 20 mg/0.4 mL subcutaneous syringe kit RxNorm: 693175 1 injection SQ every 2 weeks- Prescribed by Dr. Baker No Start Date 05/23/2017 Inactive Medication Administered No Medication Administered data Immunizations No Immunization data Assessments Condition Codes Effective Dates Generalized idiopathic epilepsy and epileptic syndromes, not intractable, with status epilepticus ICD-10: G40.301 ICD-9: 345.3 08/03/2018 Other epilepsy, not intractable, without status epilepticus ICD- 10: G40.802 ICD-9: 345.10 07/20/2018 Cough ICD-10: R05 ICD-9: 786.2 07/20/2018 Acute upper respiratory infection, unspecified ICD-10: J06.9 ICD-9: 465.9 07/07/2018 Dysuria ICD-10: R30.0 ICD-9: 788.1 06/12/2018 [...] Ord7 DILANTIN 10.5 UG/ML 05/11/2018 Comp Metabolic Xcw114 NA 138 mEq/L 05/11/2018 Comp Metabolic Epw281 K 4.0 mEq/L 05/11/2018 Comp Metabolic Nbp679 CL 100 mEq/L 05/11/2018 Comp Metabolic Dno843 CO2 29.0 mEq/L 05/11/2018 Comp Metabolic Oes754 ANION GAP 13 05/11/2018 Comp Metabolic Xyo185 GLUCOSE 84 mg/dL 05/11/2018 Comp Metabolic Zic474 Creat 0.8 mg/dL 05/11/2018 Comp Metabolic Mvr672 eGFR 77 ml/min/1.73m2 05/11/2018 Comp Metabolic Orm082 BUN 26 mg/dL 05/11/2018 Comp Metabolic Jjo674 B/C Ratio 33.3 Ratio 05/11/2018 Comp Metabolic Tzv737 CALCIUM 9.1 mg/dL 05/11/2018 Comp Metabolic Pzt755 ALK PHOS 97 U/L 05/11/2018 Comp Metabolic Tij217 AST(SGOT) 14 U/L 05/11/2018 Comp Metabolic Pbq064 ALT(SGPT) 7 U/L 05/11/2018 Comp Metabolic Bvc387 BILI T 0.3 mg/dL 05/11/2018 Comp Metabolic Kdb736 ALBUMIN 3.6 g/dL 05/11/2018 Comp Metabolic Buw320 TPRO 6.9 g/dL 05/11/2018 Comp Metabolic Opm162 GLOB 3.3 g/dL 05/11/2018 Comp Metabolic Qyd807 A/G Ratio 1.1 Ratio 05/11/2018 Comp Metabolic Ijp264 Osmo 280 mOsmo 05/11/2018 Dilantin Ord7 DILANTIN 10.7 UG/ML 04/25/2018 Valproic Acid Eat283 VALPROIC <10 ug/ml 04/24/2018 Dilantin Ord7 DILANTIN 10.6 UG/ML 04/11/2018 Culture Urine [id number] URINE CULTURE SEE NOTES 02/20/2018 Culture Urine [id number] Continued Results 02/20/2018 Urine Culture Ucult Complete >100,000 col/ml aerobic growth sent to ref lab 02/17/2018 Dilantin Ord7 DILANTIN 14.4 UG/ML 02/16/2018 Comp Metabolic Ohm714 NA 135 mEq/L 02/16/2018 Comp Metabolic Wqu320 K 3.8 mEq/L 02/16/2018 Comp Metabolic Czk612 CL 99 mEq/L 02/16/2018 Comp Metabolic Ylf808 CO2 28.0 mEq/L 02/16/2018 Comp Metabolic Imv109 ANION GAP 12 02/16/2018 Comp Metabolic Tyv199 GLUCOSE 101 mg/dL 02/16/2018 Comp Metabolic Bsb591 Creat 0.8 mg/dL 02/16/2018 Comp Metabolic Bjc669 eGFR 75 ml/min/1.73m2 02/16/2018 Comp Metabolic Cmx848 BUN 20 mg/dL 02/16/2018 Comp Metabolic Vkh675 B/C Ratio 25.0 Ratio 02/16/2018 Comp Metabolic Yyf725 CALCIUM 8.9 mg/dL 02/16/2018 Comp Metabolic Vrg030 ALK PHOS 95 U/L 02/16/2018 Comp Metabolic Vmt751 AST(SGOT) 13 U/L 02/16/2018 Comp Metabolic Oed276 ALT(SGPT) 7 U/L 02/16/2018 Comp Metabolic Atv085 BILI T 0.4 mg/dL 02/16/2018 Comp Metabolic Emh062 ALBUMIN 3.6 g/dL 02/16/2018 Comp Metabolic Kaa432 TPRO 7.2 g/dL 02/16/2018 Comp Metabolic Epx855 GLOB 3.6 g/dL 02/16/2018 Comp Metabolic Bnt061 A/G Ratio 1.0 Ratio 02/16/2018 Comp Metabolic Qtu890 Osmo 273 mOsmo 02/16/2018 Urine Culture Ucult Complete >100,000 col/ml aerobic growth sent to ref lab 11/15/2017 Comp Metabolic Ubx613 NA 136 mEq/L 10/13/2017 Comp Metabolic Wuj306 K 4.0 mEq/L 10/13/2017 Comp Metabolic Plu616 CL 98 mEq/L 10/13/2017 Comp Metabolic Ozz178 CO2 28.0 mEq/L 10/13/2017 Comp Metabolic Kpg255 ANION GAP 14 10/13/2017 Comp Metabolic Vui516 GLUCOSE 94 mg/dL 10/13/2017 Comp Metabolic Ytn980 Creat 0.7 mg/dL 10/13/2017 Comp Metabolic Sta503 eGFR 82 ml/min/1.73m2 10/13/2017 Comp Metabolic Iyv380 BUN 26 mg/dL 10/13/2017 Comp Metabolic Nzg575 B/C Ratio 35.1 Ratio 10/13/2017 Comp Metabolic Ivq115 CALCIUM 9.1 mg/dL 10/13/2017 Comp Metabolic Aed049 ALK PHOS 98 U/L 10/13/2017 Comp Metabolic Eap943 AST(SGOT) 15 U/L 10/13/2017 Comp Metabolic Acq809 ALT(SGPT) 8 U/L 10/13/2017 Comp Metabolic Klh814 BILI T 0.4 mg/dL 10/13/2017 Comp Metabolic Gib588 ALBUMIN 3.7 g/dL 10/13/2017 Comp Metabolic Tnf002 TPRO 7.8 g/dL 10/13/2017 Comp Metabolic Fcx473 GLOB 4.1 g/dL 10/13/2017 Comp Metabolic Epd268 A/G Ratio 0.9 Ratio 10/13/2017 Comp Metabolic Rsi397 Osmo 276 mOsmo 10/13/2017 Dilantin Ord7 DILANTIN 21.4 Result Verified By Repeat Analysis UG/ML 10/13/2017 Dilantin Ord7 DILANTIN 24.1 Result Verified By Repeat Analysis UG/ML 10/03/2017 Dilantin Ord7 DILANTIN 18.1 UG/ML 06/30/2017 Dilantin Ord7 DILANTIN 22.7 UG/ML 06/16/2017 Dilantin Ord7 DILANTIN 26.1 UG/ML 06/07/2017 Dilantin Ord7 DILANTIN 24.1 UG/ML 05/24/2017 Dilantin Ord7 DILANTIN 19.6 UG/ML 05/11/2017 Culture Urine [id number] URINE CULTURE SEE NOTES 05/06/2017 Culture Urine [id number] Continued Results 05/06/2017 Urine Culture Ucult Complete >100,000 col/ml aerobic growth sent to ref lab 05/03/2017 Dilantin Ord7 DILANTIN 12.6 UG/ML 04/27/2017 Calcium Ord79 CALCIUM 9.3 mg/dL 04/19/2017 Dilantin Ord7 DILANTIN 21.6 UG/ML 04/19/2017 Dilantin Ord7 DILANTIN 10.3 UG/ML 04/13/2017 Dilantin Ord7 DILANTIN 21.9 UG/ML 04/07/2017 Comp Metabolic Qdu762 NA 137 mEq/L 03/30/2017 Comp Metabolic Huk815 K 3.7 mEq/L 03/30/2017 Comp Metabolic Tzu019 CL 98 mEq/L 03/30/2017 Comp Metabolic Aci609 CO2 29.0 mEq/L 03/30/2017 Comp Metabolic Mot776 ANION GAP 14 03/30/2017 Comp Metabolic Lhw239 GLUCOSE 100 mg/dL 03/30/2017 Comp Metabolic Scu972 Creat 0.9 mg/dL 03/30/2017 Comp Metabolic Cnc937 eGFR 88 ml/min/1.73m2 03/30/2017 Comp Metabolic Ydd886 BUN 22 mg/dL 03/30/2017 Comp Metabolic Ibt955 B/C Ratio 24.4 Ratio 03/30/2017 Comp Metabolic Wsp634 CALCIUM 9.4 mg/dL 03/30/2017 Comp Metabolic Mue829 ALK PHOS 113 U/L 03/30/2017 Comp Metabolic Nbp452 AST(SGOT) 16 U/L 03/30/2017 Comp Metabolic Qvv634 ALT(SGPT) 7 U/L 03/30/2017 Comp Metabolic Fcv587 BILI T 0.3 mg/dL 03/30/2017 Comp Metabolic Vlh093 ALBUMIN 3.9 g/dL 03/30/2017 Comp Metabolic Lpf788 TPRO 8.0 g/dL 03/30/2017 Comp Metabolic Bje857 GLOB 4.1 g/dL 03/30/2017 Comp Metabolic Aho266 A/G Ratio 0.9 Ratio 03/30/2017 Comp Metabolic Rhm696 Osmo 277 mOsmo 03/30/2017 Lipid Ord30 CHOL 214 mg/dL 03/30/2017 Lipid Ord30 HDL 61.0 mg/dl 03/30/2017 Lipid Ord30 TRIG 130 mg/dL 03/30/2017 Lipid Ord30 LDL 127 mg/dL 03/30/2017 Lipid Ord30 C/HDL 3.5 Ratio 03/30/2017 Dilantin Ord7 DILANTIN 32.5 UG/ML 03/30/2017 Folate Ord36 Folate 16.46 ng/mL 03/30/2017 Tsh Ord6 hTSH II 0.95 uIU/mL 03/30/2017 B12 Kpr464 B12 592.00 pg/ml 03/30/2017 Cbc With Differential [...] hTSH II 0.82 uIU/mL 08/11/2016 Comp Metabolic Gyj930 NA 131 mEq/L 08/11/2016 Comp Metabolic Grh845 K 4.1 mEq/L 08/11/2016 Comp Metabolic Vml140 CL 93 mEq/L 08/11/2016 Comp Metabolic Ysh251 CO2 29.0 mEq/L 08/11/2016 Comp Metabolic Aoc816 ANION GAP 13 08/11/2016 Comp Metabolic Wdo900 GLUCOSE 120 mg/dL 08/11/2016 Comp Metabolic Ldi229 Creat 0.8 mg/dL 08/11/2016 Comp Metabolic Bez674 eGFR 101 ml/min/1.73m2 08/11/2016 Comp Metabolic Tav638 BUN 18 mg/dL 08/11/2016 Comp Metabolic Xfy693 B/C Ratio 22.5 Ratio 08/11/2016 Comp Metabolic Shj821 CALCIUM 9.5 mg/dL 08/11/2016 Comp Metabolic Fcs616 ALK PHOS 104 U/L 08/11/2016 Comp Metabolic Msc413 AST(SGOT) 16 U/L 08/11/2016 Comp Metabolic Zyc475 ALT(SGPT) 8 U/L 08/11/2016 Comp Metabolic Xzr963 BILI T 0.4 mg/dL 08/11/2016 Comp Metabolic Kda522 ALBUMIN 3.8 g/dL 08/11/2016 Comp Metabolic Sdt171 TPRO 8.4 g/dL 08/11/2016 Comp Metabolic Vck258 GLOB 4.6 g/dL 08/11/2016 Comp Metabolic Hvm891 A/G Ratio 0.8 Ratio 08/11/2016 Comp Metabolic Pfc951 Osmo 266 mOsmo 08/11/2016 Culture Urine [id number] URINE CULTURE SEE NOTES 04/19/2016 Culture Urine [id number] Continued Results 04/19/2016 Urine Culture Ucult Complete >100,000 col/ml aerobic growth sent to ref lab 04/17/2016 Culture Urine [id number] URINE CULTURE SEE NOTES 02/13/2016 Culture Urine [id number] Continued Results 02/13/2016 Urine Culture Ucult Complete [...] Codes Date URINALYSIS NONAUTO W/O SCOPE CPT-4: 53173 06/12/2018 URINALYSIS NONAUTO W/O SCOPE CPT-4: 96339 02/16/2018 URINALYSIS NONAUTO W/O SCOPE CPT-4: 73700 11/14/2017 PPPS, SUBSEQ VISIT CPT- 4: G0439 06/07/2017 URINALYSIS NONAUTO W/O SCOPE CPT-4: 89353 05/02/2017 URINALYSIS NONAUTO W/O SCOPE CPT-4: 49576 04/26/2017 PPPS, SUBSEQ VISIT CPT- 4: G0439 06/01/2016 URINALYSIS NONAUTO W/O SCOPE CPT-4: 36362 04/16/2016 URINALYSIS NONAUTO W/O SCOPE CPT-4: 77281 02/10/2016 Vital Signs Date Vital 07/20/2018 Blood Pressure 1: 104/60 Code: 8480-6 Heart Rate 1: 122 bpm Height: 5'5" SpO2: 94% Temperature: 36.7 (C) / 98.1 (F) Weight: 07/07/2018 Blood Pressure 1: 110/62 Code: 8480-6 BMI: 18.8 Code: 65187-5 Heart Rate 1: 67 bpm Height: 5'5" Temperature: 36.8 (C) / 98.2 (F) Weight: 113 lbs 05/22/2018 Blood Pressure 1: 112/68 Code: 8480-6 BMI: 18.6 Code: 64717-6 Heart Rate 1: 128 bpm Height: 5'5" SpO2: 98% Weight: 112 lbs 04/04/2018 Blood Pressure 1: 94/52 Code: 8480-6 Heart Rate 1: 120 bpm Height: 5'5" Respiratory Rate: 18 bpm SpO2: 98% Weight: 02/16/2018 Blood Pressure 1: 120/70 Code: 8480-6 BMI: 19.1 Code: 07617-3 Heart Rate 1: 115 bpm Height: 5'5" SpO2: 97% Weight: 115 lbs 12/30/2017 Blood Pressure 1: 100/68 Code: 8480-6 BMI: 18.3 Code: 78941-8 Heart Rate 1: 120 bpm Height: 5'5" SpO2: 94% Weight: 110 lbs 10/13/2017 Blood Pressure 1: 136/78 Code: 8480-6 BMI: 18.1 Code: 99284-0 Heart Rate 1: 126 bpm Height: 5'5" SpO2: 96% Weight: 109 lbs 07/12/2017 Blood Pressure 1: 100/56 Code: 8480-6 BMI: 18.1 Code: 81761-2 Heart Rate 1: 123 bpm Height: 5'5" SpO2: 99% Weight: 109 lbs 06/07/2017 Blood Pressure 1: 98/68 Code: 8480-6 BMI: 18.1 Code: 33717- 5 Heart Rate 1: 120 bpm Height: 5'5" SpO2: 99% Waist Measure (cm): 80 cm Weight: 109 lbs 05/24/2017 Blood Pressure 1: 104/62 Code: 8480-6 BMI: 18.1 Code: 40183-0 Heart Rate 1: 121 bpm Height: 5'5" SpO2: 97% Weight: 109 lbs 04/27/2017 Blood Pressure 1: 132/84 Code: 8480-6 BMI: 17.8 Code: 91298-5 Heart Rate 1: 129 bpm Height: 5'5" SpO2: 99% Weight: 107 lbs 04/13/2017 Blood Pressure 1: 100/66 Code: 8480-6 Heart Rate 1: 120 bpm Height: 5'5" SpO2: 99% Weight: 03/30/2017 Blood Pressure 1: 112/66 Code: 8480-6 BMI: 17.8 Code: 64262-0 Heart Rate 1: 112 bpm Height: 5'5" SpO2: 98% Weight: 107 lbs 03/02/2017 Blood Pressure 1: 128/78 Code: 8480-6 BMI: 18.1 Code: 67891-6 Heart Rate 1: 86 bpm Height: 5'5" SpO2: 95% Weight: 109 lbs 08/30/2016 Blood Pressure 1: 102/60 Code: 8480-6 BMI: 18.1 Code: 94888-1 Heart Rate 1: 135 bpm Height: 5'5" SpO2: 98% Weight: 109 lbs 08/11/2016 Blood Pressure 1: 100/66 Code: 8480-6 BMI: 18.6 Code: 06213-4 Heart Rate 1: 86 bpm Height: 5'5" SpO2: 94% Weight: 112 lbs 06/01/2016 Blood Pressure 1: 126/80 Code: 8480-6 BMI: 19.0 Code: 51940-2 Heart Rate 1: 100 bpm Height: 5'5" SpO2: 98% Waist Measure (cm): 64 cm Weight: 114 lbs 04/16/2016 Blood Pressure 1: 124/80 Code: 8480-6 Heart Rate 1: 110 bpm SpO2: 97% 02/10/2016 Blood Pressure 1: 102/64 Code: 8480-6 BMI: 18.3 Code: 08488-8 Heart Rate 1: 114 bpm Height: 5'5" [...] Present Encounters Encounter Performer Location Codes Date ([id number]) [id number] EST. PATIENT, LEVEL III Diagnosis: Cough[ICD10: R05] Diagnosis: Other epilepsy, not intractable, without status epilepticus[ICD10: G40.802] Mishel Zepeda MD, [facility] CPT-4: 44149 07/20/2018 [id number]) [id number] EST. PATIENT, LEVEL III Diagnosis: Cough[ICD10: R05] Diagnosis: Acute upper respiratory infection, unspecified[ICD10: J06.9] Mishel Zepeda MD, [facility] CPT-4: 68993 07/07/2018 [id number]) 92735 EST. PATIENT, LEVEL IV Diagnosis: Unsteadiness on feet[ICD10: R26.81] Diagnosis: Other abnormalities of gait and mobility[ICD10: R26.89] Diagnosis: Mixed incontinence[ICD10: N39.46] Diagnosis: Other epilepsy, not intractable, without status epilepticus[ICD10: G40.802] Magali Zepeda MD [facility] CPT-4: 93965 05/22/2018 ([id number]) 45733 EST. PATIENT, LEVEL III Diagnosis: Right upper quadrant abdominal rigidity[ICD10: R19.31] Diagnosis: Functional diarrhea[ICD10: K59.1] Diagnosis: Calculus of gallbladder without cholecystitis without obstruction[ICD10: K80.20] Magali Zepeda MD, [facility] CPT-4: 61393 04/04/2018 ([id number]) 34990 EST. PATIENT, LEVEL IV Diagnosis: Other epilepsy, not intractable, without status epilepticus[ICD10: G40.802] Diagnosis: Slow transit constipation[ICD10: K59.01] Diagnosis: Dysuria[ICD10: R30.0] Diagnosis: Age-related osteoporosis without current pathological fracture[ICD10: M81.0] Magali Zepeda MD [facility] CPT-4: 02391 02/16/2018 ([id number]) 06998 EST. PATIENT, LEVEL III Diagnosis: Slow transit constipation[ICD10: K59.01] Mishel Zepeda MD [facility] CPT-4: 64913 12/30/2017 ([id number]) 68728 EST. PATIENT, LEVEL IV Diagnosis: Other epilepsy, not intractable, without status epilepticus[ICD10: G40.802] Diagnosis: Slow transit constipation[ICD10: K59.01] Magali Zepeda MD [facility] CPT-4: 36142 10/13/2017 ([id number]) 98858 EST. PATIENT, LEVEL III Diagnosis: Other epilepsy, not intractable, without status epilepticus[ICD10: G40.802] Diagnosis: Dysuria[ICD10: R30.0] Diagnosis: Mixed incontinence[ICD10: N39.46] Magali Zepeda MD [facility] CPT- 4: 05960 07/12/2017 ([id number]) 34225 EST. 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 PATIENT, LEVEL III Diagnosis: Other epilepsy, not intractable, without status epilepticus[ICD10: G40.802] Magali Zepeda MD [facility] CPT-4: 63450 04/27/[id number]) [id number] EST. 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 PATIENT, LEVEL IV Diagnosis: Calculus of gallbladder without cholecystitis without obstruction[ICD10: K80.20] Diagnosis: Benign paroxysmal vertigo, bilateral[ICD10: H81.13] Diagnosis: Slow transit constipation[ICD10: K59.01] Magali Zepeda MD [facility] CPT-4: 53135 03/02/2017 [id number]) 94994 EST. PATIENT, LEVEL IV Diagnosis: Rheumatoid arthritis without rheumatoid factor, multiple sites[ICD10: M06.09] Diagnosis: Generalized idiopathic epilepsy and epileptic syndromes, not intractable, with status epilepticus[ICD10: G40.301] Magali Zepeda MD [facility] CPT-4: 99531 08/30/2016 68930 EST. PATIENT, LEVEL IV Diagnosis: Other epilepsy, not intractable, without status epilepticus[ICD10: G40.802] Diagnosis: Low back pain[ICD10: M54.5] Diagnosis: Pressure ulcer of sacral region, stage 1[ICD10: L89.151] Windy Zepeda MD, [facility] CPT-4: 27224 08/11/2016 ([id number]) 83628 EST. PATIENT, LEVEL III Diagnosis: Urinary tract infection, site not specified[ICD10: N39.0] Diagnosis: Slow transit constipation[ICD10: K59.01] Mishel Zepeda MD, [facility] CPT-4: 30247 04/16/2016 ([id number]) OFFICE VISIT, NEW - LEVEL 4 Diagnosis: Other abnormalities of gait and mobility[ICD10: R26.89] Diagnosis: Dysuria[ICD10: R30.0] Diagnosis: Rheumatoid arthritis without rheumatoid factor, multiple sites[ICD10: M06.09] Magali Zepeda MD, [facility] CPT-4: 66745 02/10/2016 Plan of Care Planned Activity Notes Codes Status Date Patient Education: Patient Medication Summary Completed 08/03/2018 Care Plan: Dilantin Pending 08/03/2018 Visit Plan: Seizures -increase dilantin -repeat dilantin level in 1 week [id number] cefdinir-finish abx and let us know if your symptoms do not resolve or if any worse 07/20/2018 Appointment: Mishel Wilson WPtel: [address] [place] [address] (15 min) Moderate 07/20/2018 Patient Education: Patient Medication Summary Completed 07/20/2018 Visit Plan: URI -viral- Pt advised to increase fluids, vitamin C. Discussed natural and expected course of this diagnosis and need to alert me if symptoms do not follow expected course, or if any worse. RX sent to patient's pharmacy to start if needed. 07/07/2018 Appointment: Mishel Wilson WPtel: [address] [place], [place] [phone] (30 min) Complex 07/07/2018 Patient Education: Patient Medication Summary Completed 07/07/2018 [facility]ment[facility] [phone] [facility] [place] (15 min) Moderate 07/03/2018 Appointment: [...] the house. 05/22/2018 Appointment: Magali Zepeda WPtel: [phone] [facility] [place] (15 min) Moderate 05/22/2018 Patient Education: Patient Medication Summary Completed 05/22/2018 Appointment: Magali Zepeda WPtel: [facility]3 [facility] [place] (15 min) Moderate 05/15/2018 Visit [...] oversight post-operatively. 04/04/2018 Appointment: Magali Zepeda WPtel: [facility] [place] (15 min) Moderate 04/04/2018 Patient Education: Patient Medication Summary Completed 04/04/2018 Patient Education: Diarrhea Completed 04/04/2018 Visit Plan: Epilepsy - chronic - continue with current regimen - check labs. Osteoporosis - pt is currently getting Prolia in [place], this is a big burden for her - They have asked for her to be set up for prolia for at the end of may at [address]- to call with specific date. Dysuria - UA - +leukocytes - start on keflex - rx sent to pharmacy. Chronic constipation - monitor symptoms. Continue with supportive care. 02/16/2018 Appointment: Magali Zepeda WPtel: [phone] [facility] (15 min) Moderate 02/16/2018 Patient Education: [...] Appointment: Mishel Wilson WPtel: [phone] [phone] [place] (30 min) Complex 12/30/2017 Patient [...] regimen. 10/13/2017 Appointment: Magali Zepeda WPtel: [phone] [facility] [place] (15 min) Moderate 10/13/2017 Patient Education: Patient Medication Summary Completed 10/13/2017 Appointment: Magali Zepeda WPtel: [phone] [facility] (15 min) Moderate 10/06/2017 Appointment: Lab [...] accident 07/12/2017 [phone] ([facility]) Moderate 07/12/2017 Patient Education: Patient Medication Summary Completed 07/12/2017 Appointment: Magali Zepeda WPtel: [phone] [facility] (15 min) Moderate 07/05/2017 Visit Plan: [...] Wind[facility] Greco [facility]el[facility] [facility] - Annual Wellness Visit 06/07/2017 Patient [...] Magali [facility]epeda WPtel[facility] (15 min) Moderate 05/24/2017 Patient Education: Patient Medication Summary Completed 05/24/2017 Appointment: Magali Zepeda WPtel: [facility]0 [facility] (15 min) Moderate 05/11/2017 Visit Plan: [...] Magali Zepeda WPtel[facility] (15 min) Moderate [...] Zepeda WPtel[facility] [place] (15 min) Moderate 04/13/2017 Patient [...] strategy. 03/30/2017 Appointment: [phone] [place] (15 min) Moderate 03/30/2017 Patient [...] constipation. 03/02/2017 Appointment: [phone] [place] (30 min) Complex 03/02/2017 Patient Education: Patient Medication Summary Completed 03/02/2017 Visit Plan: RA and Gait abnormality -continue with current treatments - supportive care Suspect some of her movement abnormalities may be due to her lamotrigine. 08/30/2016 Appointment: [facility]el[phone] [place] (30 min) Complex 08/30/2016 Patient [...] symptoms, worsening redness, warmth, discharge. 08/11/2016 Appointment: Winyd Greco WPtel: [phone] [facility] (30 min) Complex 08/11/2016 Patient [...] surrogate. 06/01/2016 Appointment: Windy Greco WPtel: [phone] [facility] [facility] - Annual Wellness Visit 06/01/2016 Patient [...] not improved on this regimen. 04/16/2016 Appointment: Steve Mishel WPtel: [phone] [phone] (15 min) Moderate 04/16/2016 Patient Education: Patient Medication Summary Completed 04/16/2016 Visit Plan: RA and Gait abnormality - recommended pt to have referral to physical therapy at [facility]. Suspect some of her movement abnormalities may be due to her lamotrigine. 02/10/2016 Appointment: Magali Zepeda WPtel: [phone] [facility] New Patient 02/10/2016 Patient Education: Patient [...] dilantin -repeat dilantin level in 1 week AHH-[id number]-el cefdinir-finish abx and let us know if [...] regimen. RECOMMEND PROBIOTIC-ANY BRAND IS FINE: RICKEY, [employer], ALIGN sign release for labs from DR [...]
--- OUTSIDE RECORDS SUMMARY | 2018-12-30 22:54 | XMS REPORT | CCD ---
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 Unknown Has never used illegal drugs 02/10/2016 Allergies, Adverse Reactions, Alerts Substance Reaction Codes Entered Date Inactivated Date Status * NO KNOWN DRUG ALLERGIES Unknown 02/10/2016 No Inactive Date Active Past Medical History Illness Codes Condition Status Onset Date Resolved Date Cough ICD-9: 786.2 ICD-10: R05 Active 07/07/2018 [...] Problems Condition Codes Effective Dates Condition Status Cough ICD-9: 786.2 ICD-10: R05 07/07/2018 Active [...] Instructions Zithromax Z-Escobar 250 mg tablet RxNorm: 247090 2 po on first dose and 1 daily Tablet(s) PO 07/27/2018 No Stop Date Active zpack x 1 Mucinex 600 mg tablet, extended release RxNorm: 561103 1 Tablet(s) PO BID 07/27/2018 08/09/2018 Active Mucinex 600 mg tablet, extended release RxNorm: 516546 1 Tablet(s) PO BID 07/27/2018 07/26/2018 Inactive Dilantin Extended 100 mg capsule RxNorm: 264048 Capsule(s) TAKE 1 CAP TID ON Mon/urs AND 1 CAPSULE QID other days. 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 if having symptoms of seizure activity, take an extra pill 05/29/2018 07/19/2018 Inactive Dilantin Extended 100 mg capsule RxNorm: 777703 Capsule(s) TAKE 1 CAP TID x2 DAYS, THEN 1 CAPSULE qid x2 DAYs, THEN REPEAT CYCLE. if having symptoms of seizure activity, take an extra pill 05/22/2018 05/28/2018 Inactive lamotrigine 150 mg tablet RxNorm: 771329 TAKE 1 TABLET BY MOUTH AT BEDTIME 04/17/2018 No Stop Date Active Dilantin Extended 100 mg capsule RxNorm: 676653 TAKE 1 CAPSULE BY MOUTH THREE TIMES DAILY FOR 3 DAYS, THEN 1 CAPSULE FOUR TIMES DAILY FOR 1 DAY, THEN REPEAT CYCLE. 04/12/2018 05/21/2018 Inactive lamotrigine 100 mg tablet RxNorm: 897273 TAKE 1 TABLET BY MOUTH IN THE MORNING 03/31/2018 07/02/2018 Inactive dicyclomine 10 mg capsule RxNorm: 604553 TAKE ONE CAPSULE BY MOUTH TWICE DAILY NEEDED 02/20/2018 No Stop Date Active Penlac 8 % topical solution RxNorm: 164073 1 Application TOP daily clean off every 7 days and restart application process 02/16/2018 09/13/2018 Active ok to dispense generic Keflex 500 mg capsule RxNorm: 419424 1 Capsule(s) PO QID 02/16/2018 02/22/2018 Inactive please call patient to let her know she needs to pick up and delivery driver rx for antibiotic Dilantin Extended 100 mg capsule RxNorm: 004821 Capsule(s) PO UD 1 cap TID x 3 days then 1 cap qid x 1 day then repeat cycle 12/15/2017 04/11/2018 Inactive give 1 month supply lamotrigine 150 mg tablet RxNorm: 963343 1 Tablet(s) PO QHS 12/07/2017 04/05/2018 Inactive lamotrigine 100 mg tablet RxNorm: 639253 1 Tablet(s) PO QAM 12/07/2017 03/30/2018 Inactive Levaquin 500 mg tablet RxNorm: 591233 1 Tablet(s) PO daily 12/05/2017 12/11/2017 Inactive Keflex 500 mg capsule RxNorm: 598347 1 Capsule(s) PO TID 11/14/2017 11/20/2017 Inactive Keflex 500 mg capsule RxNorm: 824668 1 Capsule(s) PO TID 11/14/2017 11/13/2017 Inactive Dilantin Extended 100 mg capsule RxNorm: 345910 Capsule(s) PO UD m3pill/tue3 pill/wed 4 pill/ thur 2pill/fri 3pill/sat 4pill/sun 3 pill 10/13/2017 12/14/2017 Inactive Dilantin Extended 100 mg capsule RxNorm: 569061 Capsule(s) PO UD -Alternate 300 mg for two days in a row and then 400 mg for one day and repeat cycle 10/04/2017 10/12/2017 Inactive Augmentin 500 mg-125 mg tablet RxNorm: 433492 1 Tablet(s) PO TID 07/15/2017 07/14/2017 Inactive Augmentin 500 mg-125 mg tablet RxNorm: 581573 1 Tablet(s) PO TID 07/15/2017 07/21/2017 Inactive Dilantin Extended 100 mg capsule RxNorm: 606492 1 Capsule(s) PO daily -Alternate 300 mg and 400 mg every other day 06/07/2017 10/03/2017 Inactive Bactrim DS 800 mg-160 mg tablet RxNorm: 097342 1 Tablet(s) PO BID 05/02/2017 05/08/2017 Inactive Dilantin Extended 100 mg capsule RxNorm: 412018 1 Capsule(s) PO daily in the afternoon and 2 Capsules PO HS- Will take an additional pill if she has a lot of jerking 04/27/2017 06/06/2017 Inactive Keflex 500 mg capsule RxNorm: 198456 1 Capsule(s) PO TID 04/19/2017 04/23/2017 Inactive dicyclomine 10 mg capsule RxNorm: 645066 1 Capsule(s) PO BID as needed 03/30/2017 05/28/2017 Inactive Senna with Docusate Sodium 8.6 mg-50 mg tablet RxNorm: 117224 1 Tablet(s) PO BID as needed constipation 03/02/2017 07/29/2017 Inactive Keflex 500 mg capsule RxNorm: 134648 1 Capsule(s) PO TID 08/11/2016 08/20/2016 Inactive Levaquin 500 mg tablet RxNorm: 542153 1 Tablet(s) PO daily 04/16/2016 04/22/2016 Inactive ciprofloxacin 500 mg tablet RxNorm: 810063 1 Tablet(s) PO BID 02/10/2016 02/16/2016 Inactive prednisone 10 mg tablet RxNorm: 585267 1 Tablet(s) PO as needed for pain No Start Date Active Prolia 60 mg/mL subcutaneous syringe RxNorm: 690626 1 injection SQ Q6 months No Start Date Active lamotrigine 150 mg tablet RxNorm: 066377 1 Tablet(s) PO QHS No Start Date 12/06/2017 Inactive lamotrigine 100 mg tablet RxNorm: 021265 1 Tablet(s) PO QAM No Start Date 12/06/2017 Inactive Dilantin Extended 100 mg capsule RxNorm: 614789 Capsule(s) PO TAKES FOUR CAPSULES FOR 2 DAYS, THEN THREE CAPSULES FOR 1 DAY, THEN REPEATS No Start Date 04/26/2017 Inactive Zithromax Z-Escobar 250 mg tablet RxNorm: 142986 2 po on first dose and 1 daily Tablet(s) PO No Start Date 07/26/2018 Inactive zpack x 1 Humira 20 mg/0.4 mL subcutaneous syringe kit RxNorm: 097212 1 injection SQ every 2 weeks- Prescribed [...] on feet ICD-10: R26.81 ICD-9: 781.2 05/22/2018 Mixed incontinence ICD-10: N39.46 ICD-9: 788.33 05/22/2018 Other abnormalities of gait and mobility ICD-10: R26.89 ICD-9: 781.2 05/22/2018 Calculus of gallbladder without cholecystitis without [...] Ord7 DILANTIN 10.5 UG/ML 05/11/2018 Comp Metabolic Pkf228 NA 138 mEq/L 05/11/2018 Comp Metabolic Slp031 K 4.0 mEq/L 05/11/2018 Comp Metabolic Hnh668 CL 100 mEq/L 05/11/2018 Comp Metabolic Esi917 CO2 29.0 mEq/L 05/11/2018 Comp Metabolic Dls508 ANION GAP 13 05/11/2018 Comp Metabolic Xwy307 GLUCOSE 84 mg/dL 05/11/2018 Comp Metabolic Hmq722 Creat 0.8 mg/dL 05/11/2018 Comp Metabolic Gui461 eGFR 77 ml/min/1.73m2 05/11/2018 Comp Metabolic Rib589 BUN 26 mg/dL 05/11/2018 Comp Metabolic Xhs005 B/C Ratio 33.3 Ratio 05/11/2018 Comp Metabolic Nrj758 CALCIUM 9.1 mg/dL 05/11/2018 Comp Metabolic Zpn653 ALK PHOS 97 U/L 05/11/2018 Comp Metabolic Uci363 AST(SGOT) 14 U/L 05/11/2018 Comp Metabolic Afy345 ALT(SGPT) 7 U/L 05/11/2018 Comp Metabolic Rjk483 BILI T 0.3 mg/dL 05/11/2018 Comp Metabolic Eku081 ALBUMIN 3.6 g/dL 05/11/2018 Comp Metabolic Usb757 TPRO 6.9 g/dL 05/11/2018 Comp Metabolic Gdn787 GLOB 3.3 g/dL 05/11/2018 Comp Metabolic Znz107 A/G Ratio 1.1 Ratio 05/11/2018 Comp Metabolic Bhi395 Osmo 280 mOsmo 05/11/2018 Dilantin Ord7 DILANTIN 10.7 UG/ML 04/25/2018 Valproic Acid Ctl764 VALPROIC <10 ug/ml 04/24/2018 Dilantin Ord7 DILANTIN 10.6 UG/ML 04/11/2018 Culture Urine [id number] URINE CULTURE SEE NOTES 02/20/2018 Culture Urine [id number] Continued Results 02/20/2018 Urine Culture Ucult Complete >100,000 col/ml aerobic growth sent to ref lab 02/17/2018 Dilantin Ord7 DILANTIN 14.4 UG/ML 02/16/2018 Comp Metabolic Xxu243 NA 135 mEq/L 02/16/2018 Comp Metabolic Eth906 K 3.8 mEq/L 02/16/2018 Comp Metabolic Xhg836 CL 99 mEq/L 02/16/2018 Comp Metabolic Qaz061 CO2 28.0 mEq/L 02/16/2018 Comp Metabolic Ibb604 ANION GAP 12 02/16/2018 Comp Metabolic Dko336 GLUCOSE 101 mg/dL 02/16/2018 Comp Metabolic Yhj529 Creat 0.8 mg/dL 02/16/2018 Comp Metabolic Bep965 eGFR 75 ml/min/1.73m2 02/16/2018 Comp Metabolic Rhq234 BUN 20 mg/dL 02/16/2018 Comp Metabolic Czt251 B/C Ratio 25.0 Ratio 02/16/2018 Comp Metabolic Owc130 CALCIUM 8.9 mg/dL 02/16/2018 Comp Metabolic Sac290 ALK PHOS 95 U/L 02/16/2018 Comp Metabolic Sza462 AST(SGOT) 13 U/L 02/16/2018 Comp Metabolic Sib010 ALT(SGPT) 7 U/L 02/16/2018 Comp Metabolic Akn645 BILI T 0.4 mg/dL 02/16/2018 Comp Metabolic Bll238 ALBUMIN 3.6 g/dL 02/16/2018 Comp Metabolic Qdv296 TPRO 7.2 g/dL 02/16/2018 Comp Metabolic Lnr089 GLOB 3.6 g/dL 02/16/2018 Comp Metabolic Knv266 A/G Ratio 1.0 Ratio 02/16/2018 Comp Metabolic Smv365 Osmo 273 mOsmo 02/16/2018 Urine Culture Ucult Complete >100,000 col/ml aerobic growth sent to ref lab 11/15/2017 Comp Metabolic Ttw465 NA 136 mEq/L 10/13/2017 Comp Metabolic Quc603 K 4.0 mEq/L 10/13/2017 Comp Metabolic Cvj990 CL 98 mEq/L 10/13/2017 Comp Metabolic Qli975 CO2 28.0 mEq/L 10/13/2017 Comp Metabolic Zxy146 ANION GAP 14 10/13/2017 Comp Metabolic Fbv014 GLUCOSE 94 mg/dL 10/13/2017 Comp Metabolic Wop307 Creat 0.7 mg/dL 10/13/2017 Comp Metabolic Rgw359 eGFR 82 ml/min/1.73m2 10/13/2017 Comp Metabolic Fba018 BUN 26 mg/dL 10/13/2017 Comp Metabolic Xvl557 B/C Ratio 35.1 Ratio 10/13/2017 Comp Metabolic Vic402 CALCIUM 9.1 mg/dL 10/13/2017 Comp Metabolic Kfy277 ALK PHOS 98 U/L 10/13/2017 Comp Metabolic Lsv132 AST(SGOT) 15 U/L 10/13/2017 Comp Metabolic Brl564 ALT(SGPT) 8 U/L 10/13/2017 Comp Metabolic Cfk762 BILI T 0.4 mg/dL 10/13/2017 Comp Metabolic Ied576 ALBUMIN 3.7 g/dL 10/13/2017 Comp Metabolic Pwd186 TPRO 7.8 g/dL 10/13/2017 Comp Metabolic Zmc109 GLOB 4.1 g/dL 10/13/2017 Comp Metabolic Ilq332 A/G Ratio 0.9 Ratio 10/13/2017 Comp Metabolic Mhy176 Osmo 276 mOsmo 10/13/2017 Dilantin Ord7 DILANTIN 21.4 Result Verified By Repeat Analysis UG/ML 10/13/2017 Dilantin Ord7 DILANTIN 24.1 Result Verified By Repeat Analysis UG/ML 10/03/2017 Dilantin Ord7 DILANTIN 18.1 UG/ML 06/30/2017 Dilantin Ord7 DILANTIN 22.7 UG/ML 06/16/2017 Dilantin Ord7 DILANTIN 26.1 UG/ML 06/07/2017 Dilantin Ord7 DILANTIN 24.1 UG/ML 05/24/2017 Dilantin Ord7 DILANTIN 19.6 UG/ML 05/11/2017 Culture Urine [id number] URINE CULTURE SEE NOTES 05/06/2017 Culture Urine [id number] Continued Results 05/06/2017 Urine Culture Ucult Complete >100,000 col/ml aerobic growth sent to ref lab 05/03/2017 Dilantin Ord7 DILANTIN 12.6 UG/ML 04/27/2017 Calcium Ord79 CALCIUM 9.3 mg/dL 04/19/2017 Dilantin Ord7 DILANTIN 21.6 UG/ML 04/19/2017 Dilantin Ord7 DILANTIN 10.3 UG/ML 04/13/2017 Dilantin Ord7 DILANTIN 21.9 UG/ML 04/07/2017 Comp Metabolic Qwo973 NA 137 mEq/L 03/30/2017 Comp Metabolic Kye159 K 3.7 mEq/L 03/30/2017 Comp Metabolic Boq687 CL 98 mEq/L 03/30/2017 Comp Metabolic Mbi587 CO2 29.0 mEq/L 03/30/2017 Comp Metabolic Dcr775 ANION GAP 14 03/30/2017 Comp Metabolic Web658 GLUCOSE 100 mg/dL 03/30/2017 Comp Metabolic Xrq602 Creat 0.9 mg/dL 03/30/2017 Comp Metabolic Mnv590 eGFR 88 ml/min/1.73m2 03/30/2017 Comp Metabolic Qhu718 BUN 22 mg/dL 03/30/2017 Comp Metabolic Vto774 B/C Ratio 24.4 Ratio 03/30/2017 Comp Metabolic Jbb859 CALCIUM 9.4 mg/dL 03/30/2017 Comp Metabolic Nuv611 ALK PHOS 113 U/L 03/30/2017 Comp Metabolic Esv700 AST(SGOT) 16 U/L 03/30/2017 Comp Metabolic Yok668 ALT(SGPT) 7 U/L 03/30/2017 Comp Metabolic Yhx650 BILI T 0.3 mg/dL 03/30/2017 Comp Metabolic Mvy317 ALBUMIN 3.9 g/dL 03/30/2017 Comp Metabolic Tii720 TPRO 8.0 g/dL 03/30/2017 Comp Metabolic Ggc422 GLOB 4.1 g/dL 03/30/2017 Comp Metabolic Hly149 A/G Ratio 0.9 Ratio 03/30/2017 Comp Metabolic Gql696 Osmo 277 mOsmo 03/30/2017 Lipid Ord30 CHOL 214 mg/dL 03/30/2017 Lipid Ord30 HDL 61.0 mg/dl 03/30/2017 Lipid Ord30 TRIG 130 mg/dL 03/30/2017 Lipid Ord30 LDL 127 mg/dL 03/30/2017 Lipid Ord30 C/HDL 3.5 Ratio 03/30/2017 Dilantin Ord7 DILANTIN 32.5 UG/ML 03/30/2017 Folate Ord36 Folate 16.46 ng/mL 03/30/2017 Tsh Ord6 hTSH II 0.95 uIU/mL 03/30/2017 B12 Jfm440 B12 592.00 pg/ml 03/30/2017 Cbc With Differential Ord2 WBC 1.09 K/ul 03/30/2017 Cbc With Differential Ord2 RBC 3.92 M/ul 03/30/2017 Cbc With Differential Ord2 HGB 12.1 g/dl 03/30/2017 Cbc With Differential Ord2 Neut% 27.5 % 03/30/2017 Cbc With Differential Ord2 HCT 35.0 % 03/30/2017 Cbc With Differential Ord2 Lymph% 40.4 % 03/30/2017 Cbc With Differential Ord2 MCV 89.3 fl 03/30/2017 Cbc With Differential Ord2 [place]% 23.9 % 03/30/2017 Cbc With Differential Ord2 [...] 0.44 K/ul 03/30/2017 Cbc With Differential Ord2 [place] ABS# 0.3 K/ul 03/30/2017 Cbc With Differential [...] 30.3 pg 08/11/2016 Cbc With Differential Ord2 [place]% 31.7 % 08/11/2016 Cbc With Differential Ord2 [...] 0.59 K/ul 08/11/2016 Cbc With Differential Ord2 [place] ABS# 0.6 K/ul 08/11/2016 Cbc With Differential Ord2 Eos ABS# 0.0 K/ul 08/11/2016 Cbc With Differential Ord2 Baso ABS# 0.0 K/ul 08/11/2016 Dilantin Ord7 DILANTIN 17.2 UG/ML 08/11/2016 Tsh Ord6 hTSH II 0.82 uIU/mL 08/11/2016 Comp Metabolic Pos033 NA 131 mEq/L 08/11/2016 Comp Metabolic Xkm331 K 4.1 mEq/L 08/11/2016 Comp Metabolic Tmr901 CL 93 mEq/L 08/11/2016 Comp Metabolic Mrt558 CO2 29.0 mEq/L 08/11/2016 Comp Metabolic Xse189 ANION GAP 13 08/11/2016 Comp Metabolic Bav965 GLUCOSE 120 mg/dL 08/11/2016 Comp Metabolic Pcj373 Creat 0.8 mg/dL 08/11/2016 Comp Metabolic Rqi876 eGFR 101 ml/min/1.73m2 08/11/2016 Comp Metabolic Xnr599 BUN 18 mg/dL 08/11/2016 Comp Metabolic Zed360 B/C Ratio 22.5 Ratio 08/11/2016 Comp Metabolic Hcz578 CALCIUM 9.5 mg/dL 08/11/2016 Comp Metabolic Nuo668 ALK PHOS 104 U/L 08/11/2016 Comp Metabolic Qgl039 AST(SGOT) 16 U/L 08/11/2016 Comp Metabolic Jcz408 ALT(SGPT) 8 U/L 08/11/2016 Comp Metabolic Cxt911 BILI T 0.4 mg/dL 08/11/2016 Comp Metabolic Eon213 ALBUMIN 3.8 g/dL 08/11/2016 Comp Metabolic Jjh230 TPRO 8.4 g/dL 08/11/2016 Comp Metabolic Tby764 GLOB 4.6 g/dL 08/11/2016 Comp Metabolic Ary748 A/G Ratio 0.8 Ratio 08/11/2016 Comp Metabolic Jgv597 Osmo 266 mOsmo 08/11/2016 Culture Urine [id number] URINE CULTURE SEE NOTES 04/19/2016 Culture Urine [id number] Continued Results 04/19/2016 Urine Culture Ucult Complete >100,000 col/ml aerobic growth sent to ref lab 04/17/2016 Culture Urine [id number] URINE CULTURE SEE NOTES 02/13/2016 Culture Urine [id number] Continued Results 02/13/2016 Urine Culture Ucult Complete [...] Codes Date URINALYSIS NONAUTO W/O SCOPE CPT-4: 66817 06/12/2018 URINALYSIS NONAUTO W/O SCOPE CPT-4: 31981 02/16/2018 URINALYSIS NONAUTO W/O SCOPE CPT-4: 30215 11/14/2017 PPPS, SUBSEQ VISIT CPT- 4: G0439 06/07/2017 URINALYSIS NONAUTO W/O SCOPE CPT-4: 72369 05/02/2017 URINALYSIS NONAUTO W/O SCOPE CPT-4: 42591 04/26/2017 PPPS, SUBSEQ VISIT CPT- 4: G0439 06/01/2016 URINALYSIS NONAUTO W/O SCOPE CPT-4: 86686 04/16/2016 URINALYSIS NONAUTO W/O SCOPE CPT-4: 25530 02/10/2016 Vital Signs Date Vital 07/20/2018 Blood Pressure 1: 104/60 Code: 8480-6 Heart Rate 1: 122 bpm Height: 5'5" SpO2: 94% Temperature: 36.7 (C) / 98.1 (F) Weight: 07/07/2018 Blood Pressure 1: 110/62 Code: 8480-6 BMI: 18.8 Code: 42699-9 Heart Rate 1: 67 bpm Height: 5'5" Temperature: 36.8 (C) / 98.2 (F) Weight: 113 lbs 05/22/2018 Blood Pressure 1: 112/68 Code: 8480-6 BMI: 18.6 Code: 63782-2 Heart Rate 1: 128 bpm Height: 5'5" SpO2: 98% Weight: 112 lbs 04/04/2018 Blood Pressure 1: 94/52 Code: 8480-6 Heart Rate 1: 120 bpm Height: 5'5" Respiratory Rate: 18 bpm SpO2: 98% Weight: 02/16/2018 Blood Pressure 1: 120/70 Code: 8480-6 BMI: 19.1 Code: 09106-3 Heart Rate 1: 115 bpm Height: 5'5" SpO2: 97% Weight: 115 lbs 12/30/2017 Blood Pressure 1: 100/68 Code: 8480-6 BMI: 18.3 Code: 53642-4 Heart Rate 1: 120 bpm Height: 5'5" SpO2: 94% Weight: 110 lbs 10/13/2017 Blood Pressure 1: 136/78 Code: 8480-6 BMI: 18.1 Code: 95509-1 Heart Rate 1: 126 bpm Height: 5'5" SpO2: 96% Weight: 109 lbs 07/12/2017 Blood Pressure 1: 100/56 Code: 8480-6 BMI: 18.1 Code: 85712-2 Heart Rate 1: 123 bpm Height: 5'5" SpO2: 99% Weight: 109 lbs 06/07/2017 Blood Pressure 1: 98/68 Code: 8480-6 BMI: 18.1 Code: 31296- 5 Heart Rate 1: 120 bpm Height: 5'5" SpO2: 99% Waist Measure (cm): 80 cm Weight: 109 lbs 05/24/2017 Blood Pressure 1: 104/62 Code: 8480-6 BMI: 18.1 Code: 28882-3 Heart Rate 1: 121 bpm Height: 5'5" SpO2: 97% Weight: 109 lbs 04/27/2017 Blood Pressure 1: 132/84 Code: 8480-6 BMI: 17.8 Code: 87274-8 Heart Rate 1: 129 bpm Height: 5'5" SpO2: 99% Weight: 107 lbs 04/13/2017 Blood Pressure 1: 100/66 Code: 8480-6 Heart Rate 1: 120 bpm Height: 5'5" SpO2: 99% Weight: 03/30/2017 Blood Pressure 1: 112/66 Code: 8480-6 BMI: 17.8 Code: 00120-9 Heart Rate 1: 112 bpm Height: 5'5" SpO2: 98% Weight: 107 lbs 03/02/2017 Blood Pressure 1: 128/78 Code: 8480-6 BMI: 18.1 Code: 51178-9 Heart Rate 1: 86 bpm Height: 5'5" SpO2: 95% Weight: 109 lbs 08/30/2016 Blood Pressure 1: 102/60 Code: 8480-6 BMI: 18.1 Code: 56523-2 Heart Rate 1: 135 bpm Height: 5'5" SpO2: 98% Weight: 109 lbs 08/11/2016 Blood Pressure 1: 100/66 Code: 8480-6 BMI: 18.6 Code: 02831-8 Heart Rate 1: 86 bpm Height: 5'5" SpO2: 94% Weight: 112 lbs 06/01/2016 Blood Pressure 1: 126/80 Code: 8480-6 BMI: 19.0 Code: 96739-7 Heart Rate 1: 100 bpm Height: 5'5" SpO2: 98% Waist Measure (cm): 64 cm Weight: 114 lbs 04/16/2016 Blood Pressure 1: 124/80 Code: 8480-6 Heart Rate 1: 110 bpm SpO2: 97% 02/10/2016 Blood Pressure 1: 102/64 Code: 8480-6 BMI: 18.3 Code: 95861-5 Heart Rate 1: 114 bpm Height: 5'5" [...] Present Encounters Encounter Performer Location Codes Date ([id number]) [id number] EST. PATIENT, LEVEL III Diagnosis: Cough[ICD10: R05] Diagnosis: Other epilepsy, not intractable, without status epilepticus[ICD10: G40.802] Mishel Zepeda MD, [facility] CPT-4: 42541 07/20/2018 [id number]) [id number] EST. PATIENT, LEVEL III Diagnosis: Cough[ICD10: R05] Diagnosis: Acute upper respiratory infection, unspecified[ICD10: J06.9] Mishel Zepeda MD, [facility] CPT-4: 50262 07/07/2018 [id number]) [id number] EST. PATIENT, LEVEL IV Diagnosis: Unsteadiness on feet[ICD10: R26.81] Diagnosis: Other abnormalities of gait and mobility[ICD10: R26.89] Diagnosis: Mixed incontinence[ICD10: N39.46] Diagnosis: Other epilepsy, not intractable, without status epilepticus[ICD10: G40.802] Magali Zepeda MD [facility] CPT-4: 03605 05/22/2018 ([id number]) 84440 EST. PATIENT, LEVEL III Diagnosis: Right upper quadrant abdominal rigidity[ICD10: R19.31] Diagnosis: Functional diarrhea[ICD10: K59.1] Diagnosis: Calculus of gallbladder without cholecystitis without obstruction[ICD10: K80.20] Magali Zepeda MD, [facility] CPT-4: 87342 04/04/2018 ([id number]) 23078 EST. PATIENT, LEVEL IV Diagnosis: Other epilepsy, not intractable, without status epilepticus[ICD10: G40.802] Diagnosis: Slow transit constipation[ICD10: K59.01] Diagnosis: Dysuria[ICD10: R30.0] Diagnosis: Age-related osteoporosis without current pathological fracture[ICD10: M81.0] Magali Zepeda MD [facility] CPT-4: 97843 02/16/2018 ([id number]) 65095 EST. PATIENT, LEVEL III Diagnosis: Slow transit constipation[ICD10: K59.01] Mishel Zepeda MD [facility] CPT-4: 10737 12/30/2017 ([id number]) 95516 EST. PATIENT, LEVEL IV Diagnosis: Other epilepsy, not intractable, without status epilepticus[ICD10: G40.802] Diagnosis: Slow transit constipation[ICD10: K59.01] Magali Zepeda MD [facility] CPT-4: 32738 10/13/2017 ([id number]) 27407 EST. PATIENT, LEVEL III Diagnosis: Other epilepsy, not intractable, without status epilepticus[ICD10: G40.802] Diagnosis: Dysuria[ICD10: R30.0] Diagnosis: Mixed incontinence[ICD10: N39.46] Magali Zepeda MD [facility] CPT- 4: 66034 07/12/2017 ([id number]) 18728 EST. 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 PATIENT, LEVEL III Diagnosis: Other epilepsy, not intractable, without status epilepticus[ICD10: G40.802] Magali Zepeda MD [facility] CPT-4: 49708 04/27/2017 [id number]) 72711 EST. 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 PATIENT, LEVEL IV Diagnosis: Calculus of gallbladder without cholecystitis without obstruction[ICD10: K80.20] Diagnosis: Benign paroxysmal vertigo, bilateral[ICD10: H81.13] Diagnosis: Slow transit constipation[ICD10: K59.01] Magali Zepeda MD [facility] CPT-4: 88594 03/02/2017 [id number]) 22369 EST. 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 PATIENT, LEVEL IV Diagnosis: Other epilepsy, not intractable, without status epilepticus[ICD10: G40.802] Diagnosis: Low back pain[ICD10: M54.5] Diagnosis: Pressure ulcer of sacral region, stage 1[ICD10: L89.151] Windy Zepeda MD, [facility] CPT-4: 78937 08/11/2016 ([id number]) 42791 EST. PATIENT, LEVEL III Diagnosis: Urinary tract infection, site not specified[ICD10: N39.0] Diagnosis: Slow transit constipation[ICD10: K59.01] Mishel Zepeda MD, [facility] CPT-4: 51108 04/16/2016 ([id number]) OFFICE VISIT, NEW - LEVEL 4 Diagnosis: Other abnormalities of gait and mobility[ICD10: R26.89] Diagnosis: Dysuria[ICD10: R30.0] Diagnosis: Rheumatoid arthritis without rheumatoid factor, multiple sites[ICD10: M06.09] Magali Zepeda MD, [facility] CPT-4: 74120 02/10/2016 Plan of Care Planned Activity Notes Codes Status Date Visit Plan: Seizures -increase dilantin -repeat dilantin level in 1 week IGM-oagma-rp cefdinir-finish abx and let us know if your symptoms do not resolve or if any worse 07/20/2018 Appointment: Mishel Wilson WPtel: [address] [place] [address] (15 min) Moderate 07/20/2018 Patient Education: Patient Medication Summary Completed 07/20/2018 Visit Plan: URI -viral- Pt advised to increase fluids, vitamin C. Discussed natural and expected course of this diagnosis and need to alert me if symptoms do not follow expected course, or if any worse. RX sent to patient's pharmacy to start if needed. 07/07/2018 Appointment: Mishel Wilson WPtel: [address] [place], [place] [phone] (30 min) Complex 07/07/2018 Patient Education: Patient Medication Summary Completed 07/07/2018 Appointment: Magali Zepeda WPtel: [address] [place] [address] (15 min) Moderate 07/03/2018 Appointment: Lab Draw [...] 05/22/2018 Appointment: Magali Zepeda WPtel: [phone] [id number] (15 min) Moderate 05/22/2018 Patient Education: Patient Medication Summary Completed 05/22/2018 Appointment: Magali Zepeda WPtel: [phone] [id number] (15 min) Moderate 05/15/2018 Visit Plan: Diarrhea [...] post-operatively. 04/04/2018 App[facility]ment[phone] [id number] ([facility] min) Moderate 04/04/2018 Patient Education: Patient Medication Summary Completed 04/04/2018 Patient Education: Diarrhea Completed 04/04/2018 Visit Plan: Epilepsy - chronic - continue with current regimen - check labs. Osteoporosis - pt is currently getting Prolia in [place], this is a big burden for her - They have asked for her to be set up for prolia for at the end of may at [address]- to call with specific date. Dysuria - UA - +leukocytes - start on keflex - rx sent to pharmacy. Chronic constipation - monitor symptoms. Continue with supportive care. 02/16/2018 [phone] [place] ([facility] min) Moderate 02/16/2018 Patient Education: [...] regimen. 12/30/2017 Appointment: Mishel Wilson WPtel: [phone] [phone] [place] (30 min) Complex 12/30/2017 [...] regimen. 10/13/2017 Appointment: Magali Zepeda WPtel: [phone] [facility] [place] (15 min) Moderate 10/13/2017 Patient Education: Patient Medication Summary Completed 10/13/2017 Appointment: [phone] [facility] [place] ([facility] min) Moderate 10/06/2017 Appointment: [...] accident 07/12/2017 Appointment: Magali Zepeda WPtel: [phone] [facility] (15 min) Moderate 07/12/2017 Patient Education: Patient Medication Summary Completed 07/12/2017 Appointment: Magali Zepeda WPtel: [phone] [facility] (15 min) Moderate 07/05/2017 Visit Plan: Medicare [...] surrogate. 06/07/2017 Appointment: Windy Greco WPtel: [phone] [facility] [facility] - Annual Wellness Visit 06/07/2017 Patient Education: [...] per week. 05/24/2017 Appointment: Magali Zepeda WPtel: [facility]0 [facility] (15 min) Moderate 05/24/2017 Patient Education: Patient Medication Summary Completed 05/24/2017 Appointment: Magali Zepeda WPtel: [phone] [facility] (15 min) Moderate 05/11/2017 Visit Plan: UTI [...] a week) 04/27/2017 Appointment: Mag[facility]epeda [facility]Ptel[facility] ([facility]) Moderate 04/27/2017 Patient Education: [...] monitor symptoms. 04/13/2017 Appointment: Mag[facility]epeda WPtel[facility] ([facility] min) Moderate 04/13/2017 Patient Education: [...] treatment strategy. 03/30/2017 Appointment: Magali Zepeda WPtel: [facility] [place] (15 min) Moderate 03/30/2017 Patient Education: [...] for constipation. 03/02/2017 Appointment: Magali Zepeda WPtel: [facility]9 [facility] [place] (30 min) Complex 03/02/2017 Patient Education: Patient Medication Summary Completed 03/02/2017 Visit Plan: RA and Gait abnormality -continue with current treatments - supportive care Suspect some of her movement abnormalities may be due to her lamotrigine. 08/30/2016 Appointment: [phone] [facility] [place] (30 min) Complex 08/30/2016 Patient [...] discharge. 08/11/2016 [phone] ([facility]) Complex 08/11/2016 Patient Education: Patient [...] App[facility]ment[phone] [facility] - Annual Wellness Visit 06/01/2016 Patient Education: [...] regimen. 04/16/2016 Appointment: Mishel Wilson WPtel: [phone] [facility] (15 min) Moderate 04/16/2016 Patient Education: Patient Medication Summary Completed 04/16/2016 Visit Plan: RA and Gait abnormality - recommended pt to have referral to physical therapy at [facility]. Suspect some of her movement abnormalities may be due to her lamotrigine. 02/10/2016 Appointment: Magali Zepeda WPtel: [phone] [facility] New Patient 02/10/2016 Patient Education: Patient Medication [...] - pt is currently getting Prolia in [place], this is a big burden for [...] dilantin -repeat dilantin level in 1 week UDG-kgvap-fl cefdinir-finish abx and let us know if [...] regimen. RECOMMEND PROBIOTIC-ANY BRAND IS FINE: R[employer]KEY [employer], ALIGN sign release for labs from DR [...]
--- OUTSIDE RECORDS SUMMARY | 2018-12-30 22:57 | XMS REPORT | CCD ---
Author Author [facility] Organization [facility] Address [address] [place] [address] Phone Care Team Providers Care Billiard Player Name Role Phone PP Unavailable CCM Unavailable Summary Purpose Interface Exchange Insurance Providers Payer name Policy type / Coverage type Covered republican ID Effective Begin Date Effective End Date WPS Medicare Part B Medicare Part B [id number] Unknown [employer] Medicare Part B [id number] Unknown Family history Sister Diagnosis Age At [...] Unknown Retired 02/10/[address]: 891497712 Never smoker 02/10/[address]: 641334479 Never drinks alcohol 02/10/2016 Has the patient [...] Instructions Dilantin Extended 100 mg capsule RxNorm: 368660 Capsule(s) TAKE 1 CAP TID ON Mon/Thurs AND 1 CAPSULE QID other days. 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 if having symptoms of seizure activity, take an extra pill 05/29/2018 07/19/2018 Inactive Dilantin Extended 100 mg capsule RxNorm: 812928 Capsule(s) TAKE 1 CAP TID x2 DAYS, THEN 1 CAPSULE qid x2 DAYs, THEN REPEAT CYCLE. if having symptoms of seizure activity, take an extra pill 05/22/2018 05/28/2018 Inactive lamotrigine 150 mg tablet RxNorm: 349479 TAKE 1 TABLET BY MOUTH AT BEDTIME 04/17/2018 No Stop Date Active Dilantin Extended 100 mg capsule RxNorm: 556807 TAKE 1 CAPSULE BY MOUTH THREE TIMES DAILY FOR 3 DAYS, THEN 1 CAPSULE FOUR TIMES DAILY FOR 1 DAY, THEN REPEAT CYCLE. 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 Dilantin Extended 100 mg capsule RxNorm: 341199 Capsule(s) PO UD 1 cap TID x 3 days then 1 cap qid x 1 day then repeat cycle 12/15/2017 04/11/2018 Inactive give 1 month supply lamotrigine 150 mg tablet RxNorm: 326721 1 Tablet(s) PO QHS 12/07/2017 04/05/2018 Inactive lamotrigine 100 mg tablet RxNorm: 149848 1 Tablet(s) PO QAM 12/07/2017 03/30/2018 Inactive Levaquin 500 mg tablet RxNorm: 381071 1 Tablet(s) PO daily 12/05/2017 12/11/2017 Inactive Keflex 500 mg capsule RxNorm: 371170 1 Capsule(s) PO TID 11/14/2017 11/20/2017 Inactive Keflex 500 mg capsule RxNorm: 961669 1 Capsule(s) PO TID 11/14/2017 11/13/2017 Inactive Dilantin Extended 100 mg capsule RxNorm: 242819 Capsule(s) PO UD m3pill/tue3 pill/wed 4 pill/ thur 2pill/fri 3pill/sat 4pill/sun 3 pill 10/13/2017 12/14/2017 Inactive Dilantin Extended 100 mg capsule RxNorm: 867628 Capsule(s) PO UD -Alternate 300 mg for two days in a row and then 400 mg for one day and repeat cycle 10/04/2017 10/12/2017 Inactive Augmentin 500 mg-125 mg tablet RxNorm: 379373 1 Tablet(s) PO TID 07/15/2017 07/14/2017 Inactive Augmentin 500 mg-125 mg tablet RxNorm: 332739 1 Tablet(s) PO TID 07/15/2017 07/21/2017 Inactive Dilantin Extended 100 mg capsule RxNorm: 634144 1 Capsule(s) PO daily -Alternate 300 mg and 400 mg every other day 06/07/2017 10/03/2017 Inactive Bactrim DS 800 mg-160 mg tablet RxNorm: 740090 1 Tablet(s) PO BID 05/02/2017 05/08/2017 Inactive Dilantin Extended 100 mg capsule RxNorm: 942096 1 Capsule(s) PO daily in the afternoon and 2 Capsules PO HS- Will take an additional pill if she has a lot of jerking 04/27/2017 06/06/2017 Inactive Keflex 500 mg capsule RxNorm: 728549 1 Capsule(s) PO TID 04/19/2017 04/23/2017 Inactive dicyclomine 10 mg capsule RxNorm: 924709 1 Capsule(s) PO BID as needed 03/30/2017 05/28/2017 Inactive Senna with Docusate Sodium 8.6 mg-50 mg tablet RxNorm: 987876 1 Tablet(s) PO BID as needed constipation 03/02/2017 07/29/2017 Inactive Keflex 500 mg capsule RxNorm: 854078 1 Capsule(s) PO TID 08/11/2016 08/20/2016 Inactive Levaquin 500 mg tablet RxNorm: 761569 1 Tablet(s) PO daily 04/16/2016 04/22/2016 Inactive ciprofloxacin 500 mg tablet RxNorm: 725971 1 Tablet(s) PO BID 02/10/2016 02/16/2016 Inactive prednisone 10 mg tablet RxNorm: 193712 1 Tablet(s) PO as needed for pain No Start Date Active Prolia 60 mg/mL subcutaneous syringe RxNorm: 535874 1 injection SQ Q6 months No Start Date Active lamotrigine 150 mg tablet RxNorm: 736086 1 Tablet(s) PO QHS No Start Date 12/06/2017 Inactive lamotrigine 100 mg tablet RxNorm: 743400 1 Tablet(s) PO QAM No Start Date 12/06/2017 Inactive Dilantin Extended 100 mg capsule RxNorm: 862499 Capsule(s) PO TAKES FOUR CAPSULES FOR 2 DAYS, THEN THREE CAPSULES FOR 1 DAY, THEN REPEATS No Start Date 04/26/2017 Inactive Humira 20 mg/0.4 mL subcutaneous syringe kit RxNorm: 889228 1 injection SQ every 2 weeks- Prescribed [...] 07/07/2018 Dysuria ICD-10: R30.0 ICD-9: 788.1 06/12/2018 Other abnormalities of gait and mobility ICD-10: R26.89 ICD-9: 781.2 05/22/2018 Mixed incontinence ICD-10: N39.46 ICD-9: 788.33 05/22/2018 Unsteadiness on feet ICD-10: R26.81 ICD-9: 781.2 05/22/2018 Functional diarrhea ICD-10: K59.1 ICD-9: 564.5 04/04/2018 Right upper quadrant abdominal rigidity ICD-10: R19.31 ICD-9: 789.41 04/04/2018 Calculus of gallbladder without cholecystitis without obstruction ICD-10: K80.20 ICD-9: 574.20 04/04/2018 Slow transit constipation ICD-10: K59.01 ICD-9: 564.01 02/16/2018 Age-related osteoporosis without current pathological fracture ICD-10: M81.0 ICD-9: 733.00 02/16/2018 Urinary tract infection, site not specified [...] Ord7 DILANTIN 10.5 UG/ML 05/11/2018 Comp Metabolic Fdf025 NA 138 mEq/L 05/11/2018 Comp Metabolic Klf655 K 4.0 mEq/L 05/11/2018 Comp Metabolic Cdq476 CL 100 mEq/L 05/11/2018 Comp Metabolic Bfj208 CO2 29.0 mEq/L 05/11/2018 Comp Metabolic Dqs559 ANION GAP 13 05/11/2018 Comp Metabolic Oim037 GLUCOSE 84 mg/dL 05/11/2018 Comp Metabolic Lcj831 Creat 0.8 mg/dL 05/11/2018 Comp Metabolic Pmx109 eGFR 77 ml/min/1.73m2 05/11/2018 Comp Metabolic Ndj791 BUN 26 mg/dL 05/11/2018 Comp Metabolic Hmw467 B/C Ratio 33.3 Ratio 05/11/2018 Comp Metabolic Kgj565 CALCIUM 9.1 mg/dL 05/11/2018 Comp Metabolic Clg398 ALK PHOS 97 U/L 05/11/2018 Comp Metabolic Blt175 AST(SGOT) 14 U/L 05/11/2018 Comp Metabolic Szg089 ALT(SGPT) 7 U/L 05/11/2018 Comp Metabolic Vge736 BILI T 0.3 mg/dL 05/11/2018 Comp Metabolic Oob228 ALBUMIN 3.6 g/dL 05/11/2018 Comp Metabolic Owt902 TPRO 6.9 g/dL 05/11/2018 Comp Metabolic Seg076 GLOB 3.3 g/dL 05/11/2018 Comp Metabolic Kgl062 A/G Ratio 1.1 Ratio 05/11/2018 Comp Metabolic Rjx841 Osmo 280 mOsmo 05/11/2018 Dilantin Ord7 DILANTIN 10.7 UG/ML 04/25/2018 Valproic Acid Pzm668 VALPROIC <10 ug/ml 04/24/2018 Dilantin Ord7 DILANTIN 10.6 UG/ML 04/11/2018 Culture Urine [id number] URINE CULTURE SEE NOTES 02/20/2018 Culture Urine [id number] Continued Results 02/20/2018 Urine Culture Ucult Complete >100,000 col/ml aerobic growth sent to ref lab 02/17/2018 Dilantin Ord7 DILANTIN 14.4 UG/ML 02/16/2018 Comp Metabolic Eoz381 NA 135 mEq/L 02/16/2018 Comp Metabolic Jwo774 K 3.8 mEq/L 02/16/2018 Comp Metabolic Mwe282 CL 99 mEq/L 02/16/2018 Comp Metabolic Drd618 CO2 28.0 mEq/L 02/16/2018 Comp Metabolic Xgg676 ANION GAP 12 02/16/2018 Comp Metabolic Zpo981 GLUCOSE 101 mg/dL 02/16/2018 Comp Metabolic Hgn406 Creat 0.8 mg/dL 02/16/2018 Comp Metabolic Nud446 eGFR 75 ml/min/1.73m2 02/16/2018 Comp Metabolic Uff661 BUN 20 mg/dL 02/16/2018 Comp Metabolic Zgw056 B/C Ratio 25.0 Ratio 02/16/2018 Comp Metabolic Sgo439 CALCIUM 8.9 mg/dL 02/16/2018 Comp Metabolic Evb050 ALK PHOS 95 U/L 02/16/2018 Comp Metabolic Hiv544 AST(SGOT) 13 U/L 02/16/2018 Comp Metabolic Cdu914 ALT(SGPT) 7 U/L 02/16/2018 Comp Metabolic Anm822 BILI T 0.4 mg/dL 02/16/2018 Comp Metabolic Wkx886 ALBUMIN 3.6 g/dL 02/16/2018 Comp Metabolic Rlx165 TPRO 7.2 g/dL 02/16/2018 Comp Metabolic Vda008 GLOB 3.6 g/dL 02/16/2018 Comp Metabolic Fzr914 A/G Ratio 1.0 Ratio 02/16/2018 Comp Metabolic Sqv995 Osmo 273 mOsmo 02/16/2018 Urine Culture Ucult Complete >100,000 col/ml aerobic growth sent to ref lab 11/15/2017 Comp Metabolic Vdf032 NA 136 mEq/L 10/13/2017 Comp Metabolic Asa300 K 4.0 mEq/L 10/13/2017 Comp Metabolic Huc615 CL 98 mEq/L 10/13/2017 Comp Metabolic Efw421 CO2 28.0 mEq/L 10/13/2017 Comp Metabolic Dzw831 ANION GAP 14 10/13/2017 Comp Metabolic Nye653 GLUCOSE 94 mg/dL 10/13/2017 Comp Metabolic Nwy875 Creat 0.7 mg/dL 10/13/2017 Comp Metabolic Eno365 eGFR 82 ml/min/1.73m2 10/13/2017 Comp Metabolic Btb049 BUN 26 mg/dL 10/13/2017 Comp Metabolic Kyi987 B/C Ratio 35.1 Ratio 10/13/2017 Comp Metabolic Lfa302 CALCIUM 9.1 mg/dL 10/13/2017 Comp Metabolic Rhz136 ALK PHOS 98 U/L 10/13/2017 Comp Metabolic Yjd776 AST(SGOT) 15 U/L 10/13/2017 Comp Metabolic Osl560 ALT(SGPT) 8 U/L 10/13/2017 Comp Metabolic Vbw738 BILI T 0.4 mg/dL 10/13/2017 Comp Metabolic Osl293 ALBUMIN 3.7 g/dL 10/13/2017 Comp Metabolic Zrf922 TPRO 7.8 g/dL 10/13/2017 Comp Metabolic Obi250 GLOB 4.1 g/dL 10/13/2017 Comp Metabolic Aht892 A/G Ratio 0.9 Ratio 10/13/2017 Comp Metabolic Naz983 Osmo 276 mOsmo 10/13/2017 Dilantin Ord7 DILANTIN 21.4 Result Verified By Repeat Analysis UG/ML 10/13/2017 Dilantin Ord7 DILANTIN 24.1 Result Verified By Repeat Analysis UG/ML 10/03/2017 Dilantin Ord7 DILANTIN 18.1 UG/ML 06/30/2017 Dilantin Ord7 DILANTIN 22.7 UG/ML 06/16/2017 Dilantin Ord7 DILANTIN 26.1 UG/ML 06/07/2017 Dilantin Ord7 DILANTIN 24.1 UG/ML 05/24/2017 Dilantin Ord7 DILANTIN 19.6 UG/ML 05/11/2017 Culture Urine [id number] URINE CULTURE SEE NOTES 05/06/2017 Culture Urine [id number] Continued Results 05/06/2017 Urine Culture Ucult Complete >100,000 col/ml aerobic growth sent to ref lab 05/03/2017 Dilantin Ord7 DILANTIN 12.6 UG/ML 04/27/2017 Calcium Ord79 CALCIUM 9.3 mg/dL 04/19/2017 Dilantin Ord7 DILANTIN 21.6 UG/ML 04/19/2017 Dilantin Ord7 DILANTIN 10.3 UG/ML 04/13/2017 Dilantin Ord7 DILANTIN 21.9 UG/ML 04/07/2017 Comp Metabolic Xpn877 NA 137 mEq/L 03/30/2017 Comp Metabolic Bfy657 K 3.7 mEq/L 03/30/2017 Comp Metabolic Pgr759 CL 98 mEq/L 03/30/2017 Comp Metabolic Cbr153 CO2 29.0 mEq/L 03/30/2017 Comp Metabolic Eew325 ANION GAP 14 03/30/2017 Comp Metabolic Xnl921 GLUCOSE 100 mg/dL 03/30/2017 Comp Metabolic Ghi825 Creat 0.9 mg/dL 03/30/2017 Comp Metabolic Qcq554 eGFR 88 ml/min/1.73m2 03/30/2017 Comp Metabolic Tra848 BUN 22 mg/dL 03/30/2017 Comp Metabolic Wfc306 B/C Ratio 24.4 Ratio 03/30/2017 Comp Metabolic Bdu660 CALCIUM 9.4 mg/dL 03/30/2017 Comp Metabolic Mqk482 ALK PHOS 113 U/L 03/30/2017 Comp Metabolic Fxr912 AST(SGOT) 16 U/L 03/30/2017 Comp Metabolic Bpm751 ALT(SGPT) 7 U/L 03/30/2017 Comp Metabolic Ekt975 BILI T 0.3 mg/dL 03/30/2017 Comp Metabolic Oom050 ALBUMIN 3.9 g/dL 03/30/2017 Comp Metabolic Rmy913 TPRO 8.0 g/dL 03/30/2017 Comp Metabolic Akl292 GLOB 4.1 g/dL 03/30/2017 Comp Metabolic Sgp229 A/G Ratio 0.9 Ratio 03/30/2017 Comp Metabolic Hqs968 Osmo 277 mOsmo 03/30/2017 Lipid Ord30 CHOL 214 mg/dL 03/30/2017 Lipid Ord30 HDL 61.0 mg/dl 03/30/2017 Lipid Ord30 TRIG 130 mg/dL 03/30/2017 Lipid Ord30 LDL 127 mg/dL 03/30/2017 Lipid Ord30 C/HDL 3.5 Ratio 03/30/2017 Dilantin Ord7 DILANTIN 32.5 UG/ML 03/30/2017 Folate Ord36 Folate 16.46 ng/mL 03/30/2017 Tsh Ord6 hTSH II 0.95 uIU/mL 03/30/2017 B12 Wtk941 B12 592.00 pg/ml 03/30/2017 Cbc With Differential [...] 89.3 fl 03/30/2017 Cbc With Differential Ord2 MCH 30.9 pg 03/30/2017 Cbc With Differential Ord2 [place]% 23.9 % 03/30/2017 Cbc With Differential Ord2 [...] 0.44 K/ul 03/30/2017 Cbc With Differential Ord2 [place] ABS# 0.3 K/ul 03/30/2017 Cbc With Differential [...] 30.3 pg 08/11/2016 Cbc With Differential Ord2 [place]% 31.7 % 08/11/2016 Cbc With Differential Ord2 [...] 0.59 K/ul 08/11/2016 Cbc With Differential Ord2 [place] ABS# 0.6 K/ul 08/11/2016 Cbc With Differential Ord2 [place] ABS# 0.0 K/ul 08/11/2016 Cbc With Differential Ord2 Baso ABS# 0.0 K/ul 08/11/2016 Dilantin Ord7 DILANTIN 17.2 UG/ML 08/11/2016 Tsh Ord6 hTSH II 0.82 uIU/mL 08/11/2016 Comp Metabolic Fcm466 NA 131 mEq/L 08/11/2016 Comp Metabolic Vzy846 K 4.1 mEq/L 08/11/2016 Comp Metabolic Adk496 CL 93 mEq/L 08/11/2016 Comp Metabolic Lrl047 CO2 29.0 mEq/L 08/11/2016 Comp Metabolic Byx965 ANION GAP 13 08/11/2016 Comp Metabolic Dom430 GLUCOSE 120 mg/dL 08/11/2016 Comp Metabolic Ufg671 Creat 0.8 mg/dL 08/11/2016 Comp Metabolic Zqj789 eGFR 101 ml/min/1.73m2 08/11/2016 Comp Metabolic Gll393 BUN 18 mg/dL 08/11/2016 Comp Metabolic Oik812 B/C Ratio 22.5 Ratio 08/11/2016 Comp Metabolic Pws470 CALCIUM 9.5 mg/dL 08/11/2016 Comp Metabolic Jnt931 ALK PHOS 104 U/L 08/11/2016 Comp Metabolic Drx389 AST(SGOT) 16 U/L 08/11/2016 Comp Metabolic Iwe431 ALT(SGPT) 8 U/L 08/11/2016 Comp Metabolic Auv186 BILI T 0.4 mg/dL 08/11/2016 Comp Metabolic Xom268 ALBUMIN 3.8 g/dL 08/11/2016 Comp Metabolic Iov490 TPRO 8.4 g/dL 08/11/2016 Comp Metabolic Usk841 GLOB 4.6 g/dL 08/11/2016 Comp Metabolic Ffg568 A/G Ratio 0.8 Ratio 08/11/2016 Comp Metabolic Grr978 Osmo 266 mOsmo 08/11/2016 Culture Urine [id number] URINE CULTURE SEE NOTES 04/19/2016 Culture Urine [id number] Continued Results 04/19/2016 Urine Culture Ucult Complete >100,000 col/ml aerobic growth sent to ref lab 04/17/2016 Culture Urine [id number] URINE CULTURE SEE NOTES 02/13/2016 Culture Urine [id number] Continued Results 02/13/2016 Urine Culture Ucult Complete [...] Codes Date URINALYSIS NONAUTO W/O SCOPE CPT-4: 76428 06/12/2018 URINALYSIS NONAUTO W/O SCOPE CPT-4: 60061 02/16/2018 URINALYSIS NONAUTO W/O SCOPE CPT-4: 17152 11/14/2017 PPPS, SUBSEQ VISIT CPT- 4: G0439 06/07/2017 URINALYSIS NONAUTO W/O SCOPE CPT-4: 62510 05/02/2017 URINALYSIS NONAUTO W/O SCOPE CPT-4: 16331 04/26/2017 PPPS, SUBSEQ VISIT CPT- 4: G0439 06/01/2016 URINALYSIS NONAUTO W/O SCOPE CPT-4: 06416 04/16/2016 URINALYSIS NONAUTO W/O SCOPE CPT-4: 43849 02/10/2016 Vital Signs Date Vital 07/20/2018 Blood Pressure 1: 104/60 Code: 8480-6 Heart Rate 1: 122 bpm Height: 5'5" SpO2: 94% Temperature: 36.7 (C) / 98.1 (F) Weight: 07/07/2018 Blood Pressure 1: 110/62 Code: 8480-6 BMI: 18.8 Code: 28728-8 Heart Rate 1: 67 bpm Height: 5'5" Temperature: 36.8 (C) / 98.2 (F) Weight: 113 lbs 05/22/2018 Blood Pressure 1: 112/68 Code: 8480-6 BMI: 18.6 Code: 59613-7 Heart Rate 1: 128 bpm Height: 5'5" SpO2: 98% Weight: 112 lbs 04/04/2018 Blood Pressure 1: 94/52 Code: 8480-6 Heart Rate 1: 120 bpm Height: 5'5" Respiratory Rate: 18 bpm SpO2: 98% Weight: 02/16/2018 Blood Pressure 1: 120/70 Code: 8480-6 BMI: 19.1 Code: 23352-7 Heart Rate 1: 115 bpm Height: 5'5" SpO2: 97% Weight: 115 lbs 12/30/2017 Blood Pressure 1: 100/68 Code: 8480-6 BMI: 18.3 Code: 33169-4 Heart Rate 1: 120 bpm Height: 5'5" SpO2: 94% Weight: 110 lbs 10/13/2017 Blood Pressure 1: 136/78 Code: 8480-6 BMI: 18.1 Code: 77080-4 Heart Rate 1: 126 bpm Height: 5'5" SpO2: 96% Weight: 109 lbs 07/12/2017 Blood Pressure 1: 100/56 Code: 8480-6 BMI: 18.1 Code: 88423-1 Heart Rate 1: 123 bpm Height: 5'5" SpO2: 99% Weight: 109 lbs 06/07/2017 Blood Pressure 1: 98/68 Code: 8480-6 BMI: 18.1 Code: 11447- 5 Heart Rate 1: 120 bpm Height: 5'5" SpO2: 99% Waist Measure (cm): 80 cm Weight: 109 lbs 05/24/2017 Blood Pressure 1: 104/62 Code: 8480-6 BMI: 18.1 Code: 05247-9 Heart Rate 1: 121 bpm Height: 5'5" SpO2: 97% Weight: 109 lbs 04/27/2017 Blood Pressure 1: 132/84 Code: 8480-6 BMI: 17.8 Code: 35900-2 Heart Rate 1: 129 bpm Height: 5'5" SpO2: 99% Weight: 107 lbs 04/13/2017 Blood Pressure 1: 100/66 Code: 8480-6 Heart Rate 1: 120 bpm Height: 5'5" SpO2: 99% Weight: 03/30/2017 Blood Pressure 1: 112/ Code: 8480-6 BMI: 17.8 Code: 83324-7 Heart Rate 1: 112 bpm Height: 5'5" SpO2: 98% Weight: 107 lbs 03/02/2017 Blood Pressure 1: 128/78 Code: 8480-6 BMI: 18.1 Code: 90663-2 Heart Rate 1: 86 bpm Height: 5'5" SpO2: 95% Weight: 109 lbs 08/30/2016 Blood Pressure 1: 102/60 Code: 8480-6 BMI: 18.1 Code: 00375-3 Heart Rate 1: 135 bpm Height: 5'5" SpO2: 98% Weight: 109 lbs 08/11/2016 Blood Pressure 1: 100/66 Code: 8480-6 BMI: 18.6 Code: 80243-8 Heart Rate 1: 86 bpm Height: 5'5" SpO2: 94% Weight: 112 lbs 06/01/2016 Blood Pressure 1: 126/80 Code: 8480-6 BMI: 19.0 Code: 94707-0 Heart Rate 1: 100 bpm Height: 5'5" SpO2: 98% Waist Measure (cm): 64 cm Weight: 114 lbs 04/16/2016 Blood Pressure 1: 124/80 Code: 8480-6 Heart Rate 1: 110 bpm SpO2: 97% 02/10/2016 Blood Pressure 1: 102/64 Code: 8480-6 BMI: 18.3 Code: 84297-9 Heart Rate 1: 114 bpm Height: 5'5" [...] Present Encounters Encounter Performer Location Codes Date ([id number]) 11528 EST. PATIENT, LEVEL III Diagnosis: Cough[ICD10: R05] Diagnosis: Other epilepsy, not intractable, without status epilepticus[ICD10: G40.802] Mishel Zepeda MD, [facility] CPT-4: 11527 07/20/2018 ([id number]) 86213 EST. PATIENT, LEVEL III Diagnosis: Cough[ICD10: R05] Diagnosis: Acute upper respiratory infection, unspecified[ICD10: J06.9] Mishel Zepeda MD, [facility] CPT-4: 89296 07/07/2018 ([id number]) 15517 EST. PATIENT, LEVEL IV Diagnosis: Unsteadiness on feet[ICD10: R26.81] Diagnosis: Other abnormalities of gait and mobility[ICD10: R26.89] Diagnosis: Mixed incontinence[ICD10: N39.46] Diagnosis: Other epilepsy, not intractable, without status epilepticus[ICD10: G40.802] Magali Zepeda MD, [facility] CPT-4: 75707 05/22/2018 ([id number]) 97451 EST. PATIENT, LEVEL III Diagnosis: Right upper quadrant abdominal rigidity[ICD10: R19.31] Diagnosis: Functional diarrhea[ICD10: K59.1] Diagnosis: Calculus of gallbladder without cholecystitis without obstruction[ICD10: K80.20] Magali Zepeda MD, [facility] CPT-4: 20155 04/04/2018 ([id number]) 89214 EST. PATIENT, LEVEL IV Diagnosis: Other epilepsy, not intractable, without status epilepticus[ICD10: G40.802] Diagnosis: Slow transit constipation[ICD10: K59.01] Diagnosis: Dysuria[ICD10: R30.0] Diagnosis: Age-related osteoporosis without current pathological fracture[ICD10: M81.0] Magali Zepeda MD, [facility] CPT-4: 34465 02/16/2018 ([id number]) 39343 EST. PATIENT, LEVEL III Diagnosis: Slow transit constipation[ICD10: K59.01] Mishel Zepeda MD, [facility] CPT-4: 66114 12/30/2017 ([id number]) 22361 EST. PATIENT, LEVEL IV Diagnosis: Other epilepsy, not intractable, without status epilepticus[ICD10: G40.802] Diagnosis: Slow transit constipation[ICD10: K59.01] Magali Zepeda MD, [facility] CPT-4: 10097 10/13/2017 ([id number]) 26976 EST. PATIENT, LEVEL III Diagnosis: Other epilepsy, not intractable, without status epilepticus[ICD10: G40.802] Diagnosis: Dysuria[ICD10: R30.0] Diagnosis: Mixed incontinence[ICD10: N39.46] Magali Zepeda MD, [facility] CPT- 4: 67182 07/12/2017 ([id number]) 79625 EST. 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 PATIENT, LEVEL III Diagnosis: Other epilepsy, not intractable, without status epilepticus[ICD10: G40.802] Magali Zepeda MD, [facility] CPT-4: 91074 04/27/2017 ([id number]) 05237 EST. 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 PATIENT, LEVEL IV Diagnosis: Calculus of gallbladder without cholecystitis without obstruction[ICD10: K80.20] Diagnosis: Benign paroxysmal vertigo, bilateral[ICD10: H81.13] Diagnosis: Slow transit constipation[ICD10: K59.01] Magali Zepeda MD, [facility] CPT-4: 91546 03/02/2017 ([id number]) 23071 EST. 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 PATIENT, LEVEL IV Diagnosis: Other epilepsy, not intractable, without status epilepticus[ICD10: G40.802] Diagnosis: Low back pain[ICD10: M54.5] Diagnosis: Pressure ulcer of sacral region, stage 1[ICD10: L89.151] Windy Zepeda MD, [facility] CPT-4: 14157 08/11/2016 [id number]) [id number] EST. PATIENT, LEVEL III Diagnosis: Urinary tract infection, site not specified[ICD10: N39.0] Diagnosis: Slow transit constipation[ICD10: K59.01] Mishel Zepeda MD, [facility] CPT-4: 10177 04/16/2016 ([id number]) OFFICE VISIT, NEW - LEVEL 4 Diagnosis: Other abnormalities of gait and mobility[ICD10: R26.89] Diagnosis: Dysuria[ICD10: R30.0] Diagnosis: Rheumatoid arthritis without rheumatoid factor, multiple sites[ICD10: M06.09] Magali Zepeda MD, [facility] CPT-4: 25547 02/10/2016 Plan of Care Planned Activity Notes Codes Status Date Visit Plan: Seizures -increase dilantin -repeat dilantin level in 1 week RJI-kadmo-lz cefdinir-finish abx and let us know if your symptoms do not resolve or if any worse 07/20/2018 Appointment: Mishel Wilson WPtel: [phone] [phone] [place] (15 min) Moderate 07/20/2018 Patient Education: Patient Medication Summary Completed 07/20/2018 Visit Plan: URI -viral- Pt advised to increase fluids, vitamin C. Discussed natural and expected course of this diagnosis and need to alert me if symptoms do not follow expected course, or if any worse. RX sent to patient's pharmacy to start if needed. 07/07/2018 Appointment: Mishel Wilson WPtel: [phone] [place] (30 min) Complex 07/07/2018 Patient Education: Patient Medication Summary Completed 07/07/2018 Appointment: Magali Zepeda WPtel: [facility] [place] (15 min) Moderate 07/03/2018 Appointment: Lab [...] house. 05/22/2018 Appointment: Magali Zepeda WPtel: [phone] [phone] [place] (15 min) Moderate 05/22/2018 Patient Education: Patient Medication Summary Completed 05/22/2018 Appointment: Magali Zepeda WPtel: [phone] [facility] [place] (15 min) Moderate 05/15/2018 Visit Plan: [...] gallbladder. 04/04/2018 Appointment: Magali Zepeda WPtel: [phone] [id number] (15 min) Moderate 04/04/2018 Patient Education: Patient Medication Summary Completed 04/04/2018 Patient Education: Diarrhea Completed 04/04/2018 Visit Plan: Epilepsy - chronic - continue with current regimen - check labs. Osteoporosis - pt is currently getting Prolia in [place], this is a big burden for her - They have asked for her to be set up for prolia for at the end of may at [address]- to call with specific date. Dysuria - UA - +leukocytes - start on keflex - rx sent to pharmacy. Chronic constipation - monitor symptoms. Continue with supportive care. 02/16/2018 Appointment: Magali Zepeda WPtel: [phone] [facility] [place] (15 min) Moderate 02/16/2018 Patient Education: [...] regimen. 12/30/2017 Appointment: Mishel Wilson WPtel: [phone] [phone] [place] (30 min) Complex 12/30/2017 Patient Education: [...] this regimen. 10/13/2017 App[facility]ment[phone] (15 min) Moderate 10/13/2017 Patient Education: Patient Medication Summary Completed 10/13/2017 Appointment: Magali Zepeda WPtel: [facility]7 [facility] (15 min) Moderate 10/06/2017 Appointment: Lab Draw [...] on accident 07/12/2017 Appointment: [phone] [place] (15 min) Moderate 07/12/2017 Patient Education: Patient Medication Summary Completed 07/12/2017 App[facility]ment: [phone] [place] (15 min) Moderate 07/05/2017 Visit [...] care surrogate. 06/07/2017 Appointment: Windy Greco WPtel[facility] [facility] - Annual Wellness Visit 06/07/2017 [...] per week. 05/24/2017 App[facility]ment: [phone] (15 min) Moderate 05/24/2017 Patient Education: Patient Medication Summary Completed 05/24/2017 Appointment: [phone] [facility] [place] (15 min) Moderate 05/11/2017 Visit Plan: [...] a week) 04/27/2017 Appointment: Magali Zepeda WPtel: [facility]9 [facility] [place] (15 min) Moderate 04/27/2017 Patient Education: [...] monitor symptoms. 04/13/2017 Appointment: Magali Zepeda WPtel: [facility]8 [facility] (15 min) Moderate 04/13/2017 Patient Education: Patient [...] strategy. 03/30/2017 Appointment: Magali Zepeda WPtel: [phone] [facility] [place] (15 min) Moderate 03/30/2017 Patient Education: [...] for constipation. 03/02/2017 Appointment: Magali Zepeda WPtel: [phone] [facility] (30 min) Complex 03/02/2017 Patient Education: Patient Medication Summary Completed 03/02/2017 Visit Plan: RA and Gait abnormality -continue with current treatments - supportive care Suspect some of her movement abnormalities may be due to her lamotrigine. 08/30/2016 Appointment: Magali Zepeda WPtel: [phone] [facility] [place] (30 min) Complex 08/30/2016 Patient Education: [...] discharge. 08/11/2016 Appointment: Windy Greco WPtel: [phone] [facility] [place] (30 min) Complex 08/11/2016 Patient Education: [...] care surrogate. 06/01/2016 Appointment: Windy Greco WPtel: [facility] [facility] - Annual Wellness Visit 06/01/2016 [...] regimen. 04/16/2016 Appointment: [phone] (15 min) Moderate 04/16/2016 Patient Education: Patient Medication Summary Completed 04/16/2016 Visit Plan: RA and Gait abnormality - recommended pt to have referral to physical therapy at [facility]. Suspect some of her movement abnormalities may be due to her lamotrigine. 02/10/2016 Appointment: Magali Zepeda WPtel[facility] [facility] 02/10/2016 Patient Education: Patient Medication Summary Completed 02/10/2016 Instructions Comment Repeat dilantin level increase to 4/day daily except 3/day on Tuesday/ take a probiotic whiile on antibiotic . Seizures -increase dilantin -repeat dilantin level in 1 week [id number] cefdinir-finish abx and let us know if your symptoms do not resolve or if any worse . Epilepsy - continue with dilantin - [...] treatment strategy. . Epilepsy - chronic - pt on [...] DOPA paperwork for health care surrogate. . Diarrhea - with right upper quadrant [...] strengthening, advised increased activity in the house. start antibiotic if needed over the weekend . URI -viral- Pt advised to increase fluids, vitamin C. Discussed natural and expected course of this diagnosis and need to alert me if symptoms do not follow expected course, or if any worse. RX sent to patient's pharmacy to start if needed. RECOMMEND PROBIOTIC-ANY BRAND IS FINE: [facility] sign release for labs from [...] and then as needed for constipation. . RA and Gait abnormality - recommended [...] - pt is currently getting Prolia in [place], this is a big burden for her - They have asked for her to be set up for prolia for at the end of may at [address]- to call with specific date. Dysuria - UA - +leukocytes - start on keflex - rx sent to pharmacy. Chronic constipation - monitor symptoms. Continue with supportive care.
--- OUTSIDE RECORDS SUMMARY | 2018-12-30 23:00 | XMS REPORT | CCD ---
Author Author [facility] Organization [facility] Address [address] [place] [address] Phone Care Team Providers Care Facial Operator Name Role Phone PP Unavailable CCM Unavailable Summary Purpose Interface Exchange Insurance Providers Payer name Policy type / Coverage type Covered constitution party ID Effective Begin Date Effective End Date WPS Medicare Part B Medicare Part B [id number] Unknown [employer] Medicare Part B [id number] Unknown Family history Sister Diagnosis Age At [...] Unknown Retired 02/10/[address]: 605453155 Never smoker 02/10/[address]: 683613779 Never drinks alcohol 02/10/2016 Has the patient [...] Instructions Dilantin Extended 100 mg capsule RxNorm: 788983 Capsule(s) TAKE 1 CAP TID ON Mon/Thurs AND 1 CAPSULE QID other days. 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 if having symptoms of seizure activity, take an extra pill 05/29/2018 07/19/2018 Inactive Dilantin Extended 100 mg capsule RxNorm: 171853 Capsule(s) TAKE 1 CAP TID x2 DAYS, THEN 1 CAPSULE qid x2 DAYs, THEN REPEAT CYCLE. if having symptoms of seizure activity, take an extra pill 05/22/2018 05/28/2018 Inactive lamotrigine 150 mg tablet RxNorm: 791296 TAKE 1 TABLET BY MOUTH AT BEDTIME 04/17/2018 No Stop Date Active Dilantin Extended 100 mg capsule RxNorm: 709543 TAKE 1 CAPSULE BY MOUTH THREE TIMES DAILY FOR 3 DAYS, THEN 1 CAPSULE FOUR TIMES DAILY FOR 1 DAY, THEN REPEAT CYCLE. 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 Dilantin Extended 100 mg capsule RxNorm: 259511 Capsule(s) PO UD 1 cap TID x 3 days then 1 cap qid x 1 day then repeat cycle 12/15/2017 04/11/2018 Inactive give 1 month supply lamotrigine 150 mg tablet RxNorm: 069057 1 Tablet(s) PO QHS 12/07/2017 04/05/2018 Inactive lamotrigine 100 mg tablet RxNorm: 644792 1 Tablet(s) PO QAM 12/07/2017 03/30/2018 Inactive Levaquin 500 mg tablet RxNorm: 356782 1 Tablet(s) PO daily 12/05/2017 12/11/2017 Inactive Keflex 500 mg capsule RxNorm: 554404 1 Capsule(s) PO TID 11/14/2017 11/20/2017 Inactive Keflex 500 mg capsule RxNorm: 438638 1 Capsule(s) PO TID 11/14/2017 11/13/2017 Inactive Dilantin Extended 100 mg capsule RxNorm: 130210 Capsule(s) PO UD m3pill/tue3 pill/wed 4 pill/ thur 2pill/fri 3pill/sat 4pill/sun 3 pill 10/13/2017 12/14/2017 Inactive Dilantin Extended 100 mg capsule RxNorm: 814271 Capsule(s) PO UD -Alternate 300 mg for two days in a row and then 400 mg for one day and repeat cycle 10/04/2017 10/12/2017 Inactive Augmentin 500 mg-125 mg tablet RxNorm: 740236 1 Tablet(s) PO TID 07/15/2017 07/14/2017 Inactive Augmentin 500 mg-125 mg tablet RxNorm: 561697 1 Tablet(s) PO TID 07/15/2017 07/21/2017 Inactive Dilantin Extended 100 mg capsule RxNorm: 779790 1 Capsule(s) PO daily -Alternate 300 mg and 400 mg every other day 06/07/2017 10/03/2017 Inactive Bactrim DS 800 mg-160 mg tablet RxNorm: 721508 1 Tablet(s) PO BID 05/02/2017 05/08/2017 Inactive Dilantin Extended 100 mg capsule RxNorm: 768381 1 Capsule(s) PO daily in the afternoon and 2 Capsules PO HS- Will take an additional pill if she has a lot of jerking 04/27/2017 06/06/2017 Inactive Keflex 500 mg capsule RxNorm: 239718 1 Capsule(s) PO TID 04/19/2017 04/23/2017 Inactive dicyclomine 10 mg capsule RxNorm: 881895 1 Capsule(s) PO BID as needed 03/30/2017 05/28/2017 Inactive Senna with Docusate Sodium 8.6 mg-50 mg tablet RxNorm: 732506 1 Tablet(s) PO BID as needed constipation 03/02/2017 07/29/2017 Inactive Keflex 500 mg capsule RxNorm: 993781 1 Capsule(s) PO TID 08/11/2016 08/20/2016 Inactive Levaquin 500 mg tablet RxNorm: 191418 1 Tablet(s) PO daily 04/16/2016 04/22/2016 Inactive ciprofloxacin 500 mg tablet RxNorm: 688155 1 Tablet(s) PO BID 02/10/2016 02/16/2016 Inactive prednisone 10 mg tablet RxNorm: 568952 1 Tablet(s) PO as needed for pain No Start Date Active Prolia 60 mg/mL subcutaneous syringe RxNorm: 319172 1 injection SQ Q6 months No Start Date Active lamotrigine 150 mg tablet RxNorm: 725782 1 Tablet(s) PO QHS No Start Date 12/06/2017 Inactive lamotrigine 100 mg tablet RxNorm: 352476 1 Tablet(s) PO QAM No Start Date 12/06/2017 Inactive Dilantin Extended 100 mg capsule RxNorm: 099764 Capsule(s) PO TAKES FOUR CAPSULES FOR 2 DAYS, THEN THREE CAPSULES FOR 1 DAY, THEN REPEATS No Start Date 04/26/2017 Inactive Humira 20 mg/0.4 mL subcutaneous syringe kit RxNorm: 127145 1 injection SQ every 2 weeks- Prescribed [...] Ord7 DILANTIN 10.5 UG/ML 05/11/2018 Comp Metabolic Cry896 NA 138 mEq/L 05/11/2018 Comp Metabolic Nkw710 K 4.0 mEq/L 05/11/2018 Comp Metabolic Fnu565 CL 100 mEq/L 05/11/2018 Comp Metabolic Wur748 CO2 29.0 mEq/L 05/11/2018 Comp Metabolic Qje116 ANION GAP 13 05/11/2018 Comp Metabolic Daw958 GLUCOSE 84 mg/dL 05/11/2018 Comp Metabolic Lzh583 Creat 0.8 mg/dL 05/11/2018 Comp Metabolic Vay013 eGFR 77 ml/min/1.73m2 05/11/2018 Comp Metabolic Dkc943 BUN 26 mg/dL 05/11/2018 Comp Metabolic Lgt079 B/C Ratio 33.3 Ratio 05/11/2018 Comp Metabolic Uxw292 CALCIUM 9.1 mg/dL 05/11/2018 Comp Metabolic Biu188 ALK PHOS 97 U/L 05/11/2018 Comp Metabolic Xxy953 AST(SGOT) 14 U/L 05/11/2018 Comp Metabolic Gvh779 ALT(SGPT) 7 U/L 05/11/2018 Comp Metabolic Buo901 BILI T 0.3 mg/dL 05/11/2018 Comp Metabolic Zsi410 ALBUMIN 3.6 g/dL 05/11/2018 Comp Metabolic Sno541 TPRO 6.9 g/dL 05/11/2018 Comp Metabolic Ake499 GLOB 3.3 g/dL 05/11/2018 Comp Metabolic Vgs002 A/G Ratio 1.1 Ratio 05/11/2018 Comp Metabolic Jit601 Osmo 280 mOsmo 05/11/2018 Dilantin Ord7 DILANTIN 10.7 UG/ML 04/25/2018 Valproic Acid Bvh684 VALPROIC <10 ug/ml 04/24/2018 Dilantin Ord7 DILANTIN 10.6 UG/ML 04/11/2018 Culture Urine [id number] URINE CULTURE SEE NOTES 02/20/2018 Culture Urine [id number] Continued Results 02/20/2018 Urine Culture Ucult Complete >100,000 col/ml aerobic growth sent to ref lab 02/17/2018 Dilantin Ord7 DILANTIN 14.4 UG/ML 02/16/2018 Comp Metabolic Htk911 NA 135 mEq/L 02/16/2018 Comp Metabolic Egr654 K 3.8 mEq/L 02/16/2018 Comp Metabolic Ykp004 CL 99 mEq/L 02/16/2018 Comp Metabolic Nys242 CO2 28.0 mEq/L 02/16/2018 Comp Metabolic Svz169 ANION GAP 12 02/16/2018 Comp Metabolic Qnv147 GLUCOSE 101 mg/dL 02/16/2018 Comp Metabolic Byd955 Creat 0.8 mg/dL 02/16/2018 Comp Metabolic Mcj007 eGFR 75 ml/min/1.73m2 02/16/2018 Comp Metabolic Ril382 BUN 20 mg/dL 02/16/2018 Comp Metabolic Yth336 B/C Ratio 25.0 Ratio 02/16/2018 Comp Metabolic Fzz309 CALCIUM 8.9 mg/dL 02/16/2018 Comp Metabolic Rek148 ALK PHOS 95 U/L 02/16/2018 Comp Metabolic Son820 AST(SGOT) 13 U/L 02/16/2018 Comp Metabolic Lxy204 ALT(SGPT) 7 U/L 02/16/2018 Comp Metabolic Gjl625 BILI T 0.4 mg/dL 02/16/2018 Comp Metabolic Zqk734 ALBUMIN 3.6 g/dL 02/16/2018 Comp Metabolic Nag971 TPRO 7.2 g/dL 02/16/2018 Comp Metabolic Axe707 GLOB 3.6 g/dL 02/16/2018 Comp Metabolic Edv012 A/G Ratio 1.0 Ratio 02/16/2018 Comp Metabolic Qyl139 Osmo 273 mOsmo 02/16/2018 Urine Culture Ucult Complete >100,000 col/ml aerobic growth sent to ref lab 11/15/2017 Comp Metabolic Hyj225 NA 136 mEq/L 10/13/2017 Comp Metabolic Swe063 K 4.0 mEq/L 10/13/2017 Comp Metabolic Jrf740 CL 98 mEq/L 10/13/2017 Comp Metabolic Gau412 CO2 28.0 mEq/L 10/13/2017 Comp Metabolic Sio734 ANION GAP 14 10/13/2017 Comp Metabolic Une419 GLUCOSE 94 mg/dL 10/13/2017 Comp Metabolic Xfu960 Creat 0.7 mg/dL 10/13/2017 Comp Metabolic Ada955 eGFR 82 ml/min/1.73m2 10/13/2017 Comp Metabolic Ior568 BUN 26 mg/dL 10/13/2017 Comp Metabolic Yya700 B/C Ratio 35.1 Ratio 10/13/2017 Comp Metabolic Xvs688 CALCIUM 9.1 mg/dL 10/13/2017 Comp Metabolic Rdb753 ALK PHOS 98 U/L 10/13/2017 Comp Metabolic Cgz758 AST(SGOT) 15 U/L 10/13/2017 Comp Metabolic Cxn142 ALT(SGPT) 8 U/L 10/13/2017 Comp Metabolic Ltv012 BILI T 0.4 mg/dL 10/13/2017 Comp Metabolic Wpx194 ALBUMIN 3.7 g/dL 10/13/2017 Comp Metabolic Rir027 TPRO 7.8 g/dL 10/13/2017 Comp Metabolic Vvf190 GLOB 4.1 g/dL 10/13/2017 Comp Metabolic Acb719 A/G Ratio 0.9 Ratio 10/13/2017 Comp Metabolic Xzd524 Osmo 276 mOsmo 10/13/2017 Dilantin Ord7 DILANTIN 21.4 Result Verified By Repeat Analysis UG/ML 10/13/2017 Dilantin Ord7 DILANTIN 24.1 Result Verified By Repeat Analysis UG/ML 10/03/2017 Dilantin Ord7 DILANTIN 18.1 UG/ML 06/30/2017 Dilantin Ord7 DILANTIN 22.7 UG/ML 06/16/2017 Dilantin Ord7 DILANTIN 26.1 UG/ML 06/07/2017 Dilantin Ord7 DILANTIN 24.1 UG/ML 05/24/2017 Dilantin Ord7 DILANTIN 19.6 UG/ML 05/11/2017 Culture Urine [id number] URINE CULTURE SEE NOTES 05/06/2017 Culture Urine [id number] Continued Results 05/06/2017 Urine Culture Ucult Complete >100,000 col/ml aerobic growth sent to ref lab 05/03/2017 Dilantin Ord7 DILANTIN 12.6 UG/ML 04/27/2017 Calcium Ord79 CALCIUM 9.3 mg/dL 04/19/2017 Dilantin Ord7 DILANTIN 21.6 UG/ML 04/19/2017 Dilantin Ord7 DILANTIN 10.3 UG/ML 04/13/2017 Dilantin Ord7 DILANTIN 21.9 UG/ML 04/07/2017 Comp Metabolic Gwd520 NA 137 mEq/L 03/30/2017 Comp Metabolic Akn805 K 3.7 mEq/L 03/30/2017 Comp Metabolic Qxq369 CL 98 mEq/L 03/30/2017 Comp Metabolic Kxo395 CO2 29.0 mEq/L 03/30/2017 Comp Metabolic Myo519 ANION GAP 14 03/30/2017 Comp Metabolic Ini865 GLUCOSE 100 mg/dL 03/30/2017 Comp Metabolic Bwb593 Creat 0.9 mg/dL 03/30/2017 Comp Metabolic Aou290 eGFR 88 ml/min/1.73m2 03/30/2017 Comp Metabolic Lae141 BUN 22 mg/dL 03/30/2017 Comp Metabolic Diw874 B/C Ratio 24.4 Ratio 03/30/2017 Comp Metabolic Ihz599 CALCIUM 9.4 mg/dL 03/30/2017 Comp Metabolic Fzg271 ALK PHOS 113 U/L 03/30/2017 Comp Metabolic Slx684 AST(SGOT) 16 U/L 03/30/2017 Comp Metabolic Zwa006 ALT(SGPT) 7 U/L 03/30/2017 Comp Metabolic Wct176 BILI T 0.3 mg/dL 03/30/2017 Comp Metabolic Hfg068 ALBUMIN 3.9 g/dL 03/30/2017 Comp Metabolic Bmh231 TPRO 8.0 g/dL 03/30/2017 Comp Metabolic Lzp353 GLOB 4.1 g/dL 03/30/2017 Comp Metabolic Tgp323 A/G Ratio 0.9 Ratio 03/30/2017 Comp Metabolic Kiv746 Osmo 277 mOsmo 03/30/2017 Lipid Ord30 CHOL 214 mg/dL 03/30/2017 Lipid Ord30 HDL 61.0 mg/dl 03/30/2017 Lipid Ord30 TRIG 130 mg/dL 03/30/2017 Lipid Ord30 LDL 127 mg/dL 03/30/2017 Lipid Ord30 C/HDL 3.5 Ratio 03/30/2017 Dilantin Ord7 DILANTIN 32.5 UG/ML 03/30/2017 Folate Ord36 Folate 16.46 ng/mL 03/30/2017 Tsh Ord6 hTSH II 0.95 uIU/mL 03/30/2017 B12 Ypl861 B12 592.00 pg/ml 03/30/2017 Cbc With Differential [...] 30.9 pg 03/30/2017 Cbc With Differential Ord2 [place]% 23.9 % 03/30/2017 Cbc With Differential Ord2 [...] 0.44 K/ul 03/30/2017 Cbc With Differential Ord2 [place] ABS# 0.3 K/ul 03/30/2017 Cbc With Differential [...] 30.3 pg 08/11/2016 Cbc With Differential Ord2 [place]% 31.7 % 08/11/2016 Cbc With Differential Ord2 [...] 0.59 K/ul 08/11/2016 Cbc With Differential Ord2 [place] ABS# 0.6 K/ul 08/11/2016 Cbc With Differential Ord2 Eos ABS# 0.0 K/ul 08/11/2016 Cbc With Differential Ord2 Baso ABS# 0.0 K/ul 08/11/2016 Dilantin Ord7 DILANTIN 17.2 UG/ML 08/11/2016 Tsh Ord6 hTSH II 0.82 uIU/mL 08/11/2016 Comp Metabolic Szy674 NA 131 mEq/L 08/11/2016 Comp Metabolic Yhn255 K 4.1 mEq/L 08/11/2016 Comp Metabolic Aat489 CL 93 mEq/L 08/11/2016 Comp Metabolic Kyq742 CO2 29.0 mEq/L 08/11/2016 Comp Metabolic Idm137 ANION GAP 13 08/11/2016 Comp Metabolic Jxf532 GLUCOSE 120 mg/dL 08/11/2016 Comp Metabolic The561 Creat 0.8 mg/dL 08/11/2016 Comp Metabolic Eyd050 eGFR 101 ml/min/1.73m2 08/11/2016 Comp Metabolic Sat811 BUN 18 mg/dL 08/11/2016 Comp Metabolic Wrm827 B/C Ratio 22.5 Ratio 08/11/2016 Comp Metabolic Oal603 CALCIUM 9.5 mg/dL 08/11/2016 Comp Metabolic Hsr494 ALK PHOS 104 U/L 08/11/2016 Comp Metabolic Cry689 AST(SGOT) 16 U/L 08/11/2016 Comp Metabolic Dfo566 ALT(SGPT) 8 U/L 08/11/2016 Comp Metabolic Apu026 BILI T 0.4 mg/dL 08/11/2016 Comp Metabolic Cei722 ALBUMIN 3.8 g/dL 08/11/2016 Comp Metabolic Kwn123 TPRO 8.4 g/dL 08/11/2016 Comp Metabolic Dgz305 GLOB 4.6 g/dL 08/11/2016 Comp Metabolic Fgc183 A/G Ratio 0.8 Ratio 08/11/2016 Comp Metabolic Shp638 Osmo 266 mOsmo 08/11/2016 Culture Urine [id number] URINE CULTURE SEE NOTES 04/19/2016 Culture Urine [id number] Continued Results 04/19/2016 Urine Culture Ucult Complete >100,000 col/ml aerobic growth sent to ref lab 04/17/2016 Culture Urine [id number] URINE CULTURE SEE NOTES 02/13/2016 Culture Urine [id number] Continued Results 02/13/2016 Urine Culture Ucult Complete [...] Codes Date URINALYSIS NONAUTO W/O SCOPE CPT-4: 36686 06/12/2018 URINALYSIS NONAUTO W/O SCOPE CPT-4: 20840 02/16/2018 URINALYSIS NONAUTO W/O SCOPE CPT-4: 37682 11/14/2017 PPPS, SUBSEQ VISIT CPT- 4: G0439 06/07/2017 URINALYSIS NONAUTO W/O SCOPE CPT-4: 64439 05/02/2017 URINALYSIS NONAUTO W/O SCOPE CPT-4: 87294 04/26/2017 PPPS, SUBSEQ VISIT CPT- 4: G0439 06/01/2016 URINALYSIS NONAUTO W/O SCOPE CPT-4: 07836 04/16/2016 URINALYSIS NONAUTO W/O SCOPE CPT-4: 11940 02/10/2016 Vital Signs Date Vital 07/20/2018 Blood Pressure 1: 104/60 Code: 8480-6 Heart Rate 1: 122 bpm Height: 5'5" SpO2: 94% Temperature: 36.7 (C) / 98.1 (F) Weight: 07/07/2018 Blood Pressure 1: 110/62 Code: 8480-6 BMI: 18.8 Code: 55728-7 Heart Rate 1: 67 bpm Height: 5'5" Temperature: 36.8 (C) / 98.2 (F) Weight: 113 lbs 05/22/2018 Blood Pressure 1: 112/68 Code: 8480-6 BMI: 18.6 Code: 71989-3 Heart Rate 1: 128 bpm Height: 5'5" SpO2: 98% Weight: 112 lbs 04/04/2018 Blood Pressure 1: 94/52 Code: 8480-6 Heart Rate 1: 120 bpm Height: 5'5" Respiratory Rate: 18 bpm SpO2: 98% Weight: 02/16/2018 Blood Pressure 1: 120/70 Code: 8480-6 BMI: 19.1 Code: 67011-9 Heart Rate 1: 115 bpm Height: 5'5" SpO2: 97% Weight: 115 lbs 12/30/2017 Blood Pressure 1: 100/68 Code: 8480-6 BMI: 18.3 Code: 48427-8 Heart Rate 1: 120 bpm Height: 5'5" SpO2: 94% Weight: 110 lbs 10/13/2017 Blood Pressure 1: 136/78 Code: 8480-6 BMI: 18.1 Code: 53130-8 Heart Rate 1: 126 bpm Height: 5'5" SpO2: 96% Weight: 109 lbs 07/12/2017 Blood Pressure 1: 100/56 Code: 8480-6 BMI: 18.1 Code: 20583-7 Heart Rate 1: 123 bpm Height: 5'5" SpO2: 99% Weight: 109 lbs 06/07/2017 Blood Pressure 1: 98/68 Code: 8480-6 BMI: 18.1 Code: 04331- 5 Heart Rate 1: 120 bpm Height: 5'5" SpO2: 99% Waist Measure (cm): 80 cm Weight: 109 lbs 05/24/2017 Blood Pressure 1: 104/62 Code: 8480-6 BMI: 18.1 Code: 22075-9 Heart Rate 1: 121 bpm Height: 5'5" SpO2: 97% Weight: 109 lbs 04/27/2017 Blood Pressure 1: 132/84 Code: 8480-6 BMI: 17.8 Code: 98889-0 Heart Rate 1: 129 bpm Height: 5'5" SpO2: 99% Weight: 107 lbs 04/13/2017 Blood Pressure 1: 100/66 Code: 8480-6 Heart Rate 1: 120 bpm Height: 5'5" SpO2: 99% Weight: 03/30/2017 Blood Pressure 1: 112/ Code: 8480-6 BMI: 17.8 Code: 53941-7 Heart Rate 1: 112 bpm Height: 5'5" SpO2: 98% Weight: 107 lbs 03/02/2017 Blood Pressure 1: 128/78 Code: 8480-6 BMI: 18.1 Code: 02866-7 Heart Rate 1: 86 bpm Height: 5'5" SpO2: 95% Weight: 109 lbs 08/30/2016 Blood Pressure 1: 102/60 Code: 8480-6 BMI: 18.1 Code: 78886-4 Heart Rate 1: 135 bpm Height: 5'5" SpO2: 98% Weight: 109 lbs 08/11/2016 Blood Pressure 1: 100/66 Code: 8480-6 BMI: 18.6 Code: 10885-7 Heart Rate 1: 86 bpm Height: 5'5" SpO2: 94% Weight: 112 lbs 06/01/2016 Blood Pressure 1: 126/80 Code: 8480-6 BMI: 19.0 Code: 27110-6 Heart Rate 1: 100 bpm Height: 5'5" SpO2: 98% Waist Measure (cm): 64 cm Weight: 114 lbs 04/16/2016 Blood Pressure 1: 124/80 Code: 8480-6 Heart Rate 1: 110 bpm SpO2: 97% 02/10/2016 Blood Pressure 1: 102/64 Code: 8480-6 BMI: 18.3 Code: 30761-5 Heart Rate 1: 114 bpm Height: 5'5" [...] Present Encounters Encounter Performer Location Codes Date ([id number]) 96900 EST. PATIENT, LEVEL III Diagnosis: Cough[ICD10: R05] Diagnosis: Other epilepsy, not intractable, without status epilepticus[ICD10: G40.802] Mishel Zepeda MD, [facility] CPT-4: 80884 07/20/2018 ([id number]) 58213 EST. PATIENT, LEVEL III Diagnosis: Cough[ICD10: R05] Diagnosis: Acute upper respiratory infection, unspecified[ICD10: J06.9] Mishel Zepeda MD, [facility] CPT-4: 31220 07/07/2018 ([id number]) 76777 EST. PATIENT, LEVEL IV Diagnosis: Unsteadiness on feet[ICD10: R26.81] Diagnosis: Other abnormalities of gait and mobility[ICD10: R26.89] Diagnosis: Mixed incontinence[ICD10: N39.46] Diagnosis: Other epilepsy, not intractable, without status epilepticus[ICD10: G40.802] Magali Zepeda MD, [facility] CPT-4: 90758 05/22/2018 ([id number]) 96419 EST. PATIENT, LEVEL III Diagnosis: Right upper quadrant abdominal rigidity[ICD10: R19.31] Diagnosis: Functional diarrhea[ICD10: K59.1] Diagnosis: Calculus of gallbladder without cholecystitis without obstruction[ICD10: K80.20] Magali Zepeda MD, [facility] CPT-4: 44336 04/04/2018 ([id number]) 99214 EST. PATIENT, LEVEL IV Diagnosis: Other epilepsy, not intractable, without status epilepticus[ICD10: G40.802] Diagnosis: Slow transit constipation[ICD10: K59.01] Diagnosis: Dysuria[ICD10: R30.0] Diagnosis: Age-related osteoporosis without current pathological fracture[ICD10: M81.0] Magali Zepeda MD, [facility] CPT-4: 61266 02/16/2018 ([id number]) 73659 EST. PATIENT, LEVEL III Diagnosis: Slow transit constipation[ICD10: K59.01] Mishel Zepeda MD, [facility] CPT-4: 87068 12/30/2017 ([id number]) 38942 EST. PATIENT, LEVEL IV Diagnosis: Other epilepsy, not intractable, without status epilepticus[ICD10: G40.802] Diagnosis: Slow transit constipation[ICD10: K59.01] Magali Zepeda MD, [facility] CPT-4: 55556 10/13/2017 ([id number]) 47247 EST. PATIENT, LEVEL III Diagnosis: Other epilepsy, not intractable, without status epilepticus[ICD10: G40.802] Diagnosis: Dysuria[ICD10: R30.0] Diagnosis: Mixed incontinence[ICD10: N39.46] Magali Zepeda MD, [facility] CPT- 4: 92757 07/12/2017 ([id number]) 88764 EST. 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 PATIENT, LEVEL III Diagnosis: Other epilepsy, not intractable, without status epilepticus[ICD10: G40.802] Magali Zepeda MD, [facility] CPT-4: 03749 04/27/2017 ([id number]) 55553 EST. 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 PATIENT, LEVEL IV Diagnosis: Calculus of gallbladder without cholecystitis without obstruction[ICD10: K80.20] Diagnosis: Benign paroxysmal vertigo, bilateral[ICD10: H81.13] Diagnosis: Slow transit constipation[ICD10: K59.01] Magali Zepeda MD, [facility] CPT-4: 34554 03/02/2017 ([id number]) 03904 EST. 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 PATIENT, LEVEL IV Diagnosis: Other epilepsy, not intractable, without status epilepticus[ICD10: G40.802] Diagnosis: Low back pain[ICD10: M54.5] Diagnosis: Pressure ulcer of sacral region, stage 1[ICD10: L89.151] Windy Zepeda MD, [facility] CPT-4: 95619 08/11/2016 [id number]) 53061 EST. PATIENT, LEVEL III Diagnosis: Urinary tract infection, site not specified[ICD10: N39.0] Diagnosis: Slow transit constipation[ICD10: K59.01] Mishel Zepeda MD, [facility] CPT-4: 07607 04/16/2016 ([id number]) OFFICE VISIT, NEW - LEVEL 4 Diagnosis: Other abnormalities of gait and mobility[ICD10: R26.89] Diagnosis: Dysuria[ICD10: R30.0] Diagnosis: Rheumatoid arthritis without rheumatoid factor, multiple sites[ICD10: M06.09] Magali Zepeda MD, [facility] CPT-4: 17978 02/10/2016 Plan of Care Planned Activity Notes Codes Status Date Visit Plan: Seizures -increase dilantin -repeat dilantin level in 1 week VCG-fvguo-bo cefdinir-finish abx and let us know if your symptoms do not resolve or if any worse 07/20/2018 Patient Education: Patient Medication Summary Completed 07/20/2018 Visit Plan: URI -viral- Pt advised to increase fluids, vitamin C. Discussed natural and expected course of this diagnosis and need to alert me if symptoms do not follow expected course, or if any worse. RX sent to patient's pharmacy to start if needed. 07/07/2018 Appointment: Mishel Wilson WPtel: [phone] [place] (30 min) Complex 07/07/2018 Patient Education: Patient Medication Summary Completed 07/07/2018 Appointment: Magali Zepeda WPtel: [facility] [place] (15 min) Moderate 07/03/2018 Appointment: Lab [...] house. 05/22/2018 Appointment: Magali Zepeda WPtel: [phone] [facility] [place] (15 min) Moderate 05/22/2018 Patient Education: Patient Medication Summary Completed 05/22/2018 Appointment: Magali Zepeda WPtel: [phone] [facility] [place] (15 min) Moderate 05/15/2018 Visit Plan: [...] post-operatively. 04/04/2018 Appointment: Magali Zepeda WPtel: [phone] [facility] [place] (15 min) Moderate 04/04/2018 Patient Education: Patient Medication Summary Completed 04/04/2018 Patient Education: Diarrhea Completed 04/04/2018 Visit Plan: Epilepsy - chronic - continue with current regimen - check labs. Osteoporosis - pt is currently getting Prolia in [place], this is a big burden for her [...] Appointment: Magali Zepeda WPtel: [phone] [phone] (15 min) Moderate 02/16/2018 Patient [...] Appointment: Magali Zepeda WPtel: [phone] [facility] [place] (15 min) Moderate 10/13/2017 Patient Education: Patient Medication Summary Completed 10/13/2017 Appointment: Magali Zepeda WPtel: [phone] [id number] (15 min) Moderate 10/06/2017 Appointment: [...] on accident 07/12/2017 Appointment: Mag[facility]eda [facility]el[facility] [place] (15 min) Moderate 07/12/2017 Patient Education: Patient Medication Summary Completed 07/12/2017 App[facility]ment: [phone] [facility] [place] (15 min) Moderate 07/05/2017 Visit [...] care surrogate. 06/07/2017 Appointment: Windy Greco WPtel: [facility] [facility] - Annual Wellness Visit 06/07/2017 Patient [...] week. 05/24/2017 Appointment: [phone] [id number] ([facility] min) Moderate 05/24/2017 Patient Education: Patient Medication Summary Completed 05/24/2017 Appointment: Magali Zepeda WPtel: [phone] [facility] [id number] ([place] min) Moderate 05/11/2017 Visit [...] Appointment: Magali Zepeda WPtel: [phone] [id number] (15 min) Moderate 04/27/2017 Patient [...] Appointment: Magali Zepeda WPtel: [phone] [id number] (15 min) Moderate 04/13/2017 Patient [...] strategy. 03/30/2017 Appointment: Magali Zepeda WPtel: [phone] [id number] (15 min) Moderate 03/30/2017 Patient Education: Patient [...] for constipation. 03/02/2017 Appointment: Magali Zepeda WPtel: [facility] (30 min) Complex 03/02/2017 Patient Education: Patient Medication Summary Completed 03/02/2017 Visit Plan: RA and Gait abnormality -continue with current treatments - supportive care Suspect some of her movement abnormalities may be due to her lamotrigine. 08/30/2016 Appointment: Magali Zepeda WPtel: [id number] (30 min) Complex 08/30/2016 Patient Education: Patient [...] warmth, discharge. 08/11/2016 Appointment: Windy Greco WPtel: [facility]2 [facility] (30 min) Complex [...] surrogate. 06/01/2016 Appointment: Windy Greco WPtel: [facility]1 [address] - Annual Wellness Visit 06/01/2016 Patient [...] regimen. 04/16/2016 Appointment: Mishel Wilson WPtel: [facility]9 [id number] (15 min) Moderate 04/16/2016 Patient Education: Patient Medication Summary Completed 04/16/2016 Visit Plan: RA and Gait abnormality - recommended pt to have referral to physical therapy at [facility]. Suspect some of her movement abnormalities may be due to her lamotrigine. 02/10/2016 Appointment: Magali Zepeda WPtel: [phone] [facility]66[facility] New Patient 02/10/2016 Patient Education: Patient Medication [...] - pt is currently getting Prolia in [place], this is a big burden for her [...] dilantin -repeat dilantin level in 1 week [id number]-yynrm-om cefdinir-finish abx and let us know if your symptoms do not resolve or if any worse start antibiotic if needed over the weekend . URI -viral- Pt advised to increase fluids, vitamin C. Discussed natural and expected course of this diagnosis and need to alert me if symptoms do not follow expected course, or if any worse. RX sent to patient's pharmacy to start if needed. RECOMMEND PROBIOTIC-ANY BRAND IS FINE: [facility], ALIGN sign release for labs from [...] if symptoms not improved on this regimen. Okay to add miralax as directed . [...] DOPA paperwork for health care surrogate. . Vertigo - referral to [facility] [...]
--- NOTE | 2018-12-30 23:15 | NUR ---
ekg by me and to by me
--- OUTSIDE RECORDS SUMMARY | 2018-12-30 23:30 | XMS REPORT | Continuity of Care Document ---
Author Organization Unknown Address Unknown Allergies Active Description Code Type Severity Reaction Onset Reported/Identified Relationship to Patient Clinical Status Yes No Known Drug Allergies [id number] Drug Allergy Unknown N/A 04/10/2018 Medications Medication [...] EVERY 6 HOURS Tylenol Extra Strength TABLET 04/14/2018 ORAL 500 MG Q4H EVERY 4HRS Meclizine HCl TABLET 04/14/2018 ORAL 25 MG TID THREE TIMES A DAY Protonix TABLET. 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 11/26/2012 MAYANKBREANAAN N Ot 288.00 NEUTROPENIA, UNSPECIFIED 12/18/2012 SHONA JEANE A PROCESSING SUPERVISOR Ot 780.4 DIZZINESS AND GIDDINESS 12/18/2012 NAGELJEANE Ruma PROCESSING SUPERVISOR Ot 780.79 OTH MALAISE FATIGUE 12/18/2012 JEANE NAGEL PROCESSING SUPERVISOR Ot 783.21 LOSS OF WEIGHT 12/18/2012 JEANE NAGEL PROCESSING SUPERVISOR Ot V57.1 PHYSICAL THERAPY NEC 12/18/2012 JEANE NAGEL PROCESSING SUPERVISOR Ot V57.21 ENCOUNTER FOR OCCUPATIONAL THERAPY 12/18/2012 SHONA JEANE A PROCESSING SUPERVISOR Ot V58.49 OTHER SPECIFIED AFTERCARE FOLLOWING SURG 04/15/2013 ANTONIA TALLEY N Ot 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 04/15/2013 MAYANK BOBAN N Ot 288.50 LEUKOCYTOPENIA, UNSPECIFIED 04/15/2013 MAYANK BOBAN N Ot 345.90 EPILEPSY UNSPEC W/O MENTION INTRACTABLE 04/15/2013 MAYANK BOBBARAK N Ot 714.0 RHEUMATOID ARTHRITIS 04/15/2013 MAYANK BOBAN N Ot 780.4 DIZZINESS AND GIDDINESS 04/15/2013 MAYANK BOBAN N Ot V58.69 OTH MED,LT,CURRENT USE 07/31/2013 MAYANK BOBAN N 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 07/31/2013 MAYANK BOBAN N Ot 288.00 NEUTROPENIA, UNSPECIFIED 12/09/2013 MAYANK BOBAN N Ot 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 12/09/2013 MAYANK BOBAN N Ot 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 12/09/2013 MAYANK BOBAN N 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 12/09/2013 MAYANK BOBAN N Ot 288.00 NEUTROPENIA, UNSPECIFIED 12/09/2013 MAYANK BOBAN N Ot 345.90 EPILEPSY UNSPEC W/O MENTION INTRACTABLE 12/09/2013 MAYANK BOBAN N Ot 714.0 RHEUMATOID ARTHRITIS 12/09/2013 MAYANKBREANAAN N Ot V58.69 OTH MED,LT,CURRENT USE 04/25/2014 MAYANK BOBAN N Ot 227.3 04/25/2014 MAYANK BOBAN N Ot 270.4 04/25/2014 ANTONIA TALLEY N Ot 273.1 04/25/2014 ANTONIA TALLEY N Ot 288.00 04/25/2014 ANTONIA TALLEY N Ot 345.90 04/25/2014 ANTONIA TALLEY N Ot 714.0 04/25/2014 ANTONIA TALLEY N Ot V58.69 05/28/2014 ANTONIA TALLEY N Ot 227.3 05/28/2014 ANTONIA TALLEY N Ot 270.4 05/28/2014 ANTONIA TALLEY N Ot 273.1 05/28/2014 ANTONIA TALLEY N Ot 288.00 05/28/2014 ANTONIA TALLEY N Ot 345.90 05/28/2014 ANTONIA TALLEY N Ot 714.0 05/28/2014 ANTONIA TALLEY N Ot V58.69 06/19/2014 ANTONIA TALLEY N Ot 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 06/19/2014 ANTONIA TALLEY N Ot 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 06/19/2014 ANTONIA TALLEY N 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 06/19/2014 ANTONIA TALLEY N Ot 288.00 NEUTROPENIA, UNSPECIFIED 06/19/2014 ANTONIA TALLEY N Ot 345.90 EPILEPSY UNSPEC W/O MENTION INTRACTABLE 06/19/2014 ANTONIA TALLEY N Ot 714.0 RHEUMATOID ARTHRITIS 06/19/2014 ANTONIA TALLEY N Ot V58.69 OTH MED,LT,CURRENT USE 11/29/2014 CAROLE ROSE COMMUNITY OUTREACH WORKER Ot 288.00 11/29/2014 CAROLE ROSE COMMUNITY OUTREACH WORKER Ot 288.50 11/29/2014 CAROLE ROSE COMMUNITY OUTREACH WORKER Ot 564.00 11/29/2014 CAROLE ROSE COMMUNITY OUTREACH WORKER Ot 714.0 11/29/2014 CAROLE ROSE COMMUNITY OUTREACH WORKER Ot 714.1 11/29/2014 CAROLE ROSE COMMUNITY OUTREACH WORKER Ot 733.90 11/29/2014 CAROLE ROSE COMMUNITY OUTREACH WORKER Ot V58.65 11/29/2014 CAROLE ROSE COMMUNITY OUTREACH WORKER Ot V58.69 04/03/2015 ANTONIA TALLEY N Ot [...] BOBAN N Ot V58.69 06/03/2015 JUSTINE BULLOCK PROCESSING SUPERVISOR Ot K52.9 NONINFECTIVE GASTROENTERITIS AND COLITIS 06/03/2015 JSUTINE BULLOCK PROCESSING SUPERVISOR Ot 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 INTEST, PART UNSP, W/O PERF 06/03/2015 JUSTINE BULLOCK PROCESSING SUPERVISOR Ot K80.20 CALCULUS OF GALLBLADDER W/O CHOLECYSTITI 06/18/2015 MAYANK, BOBAN N Ot 227.3 06/18/2015 MAYANK, BOBAN N Ot 270.4 06/18/2015 MAYANK, BOBAN N Ot 273.1 06/18/2015 MAYANK, BOBAN N Ot 288.00 06/18/2015 MAYANK, BOBAN N Ot 345.90 06/18/2015 MAYANK, BOBAN N Ot 714.0 06/18/2015 MAYANK, BOBAN N Ot D72.819 06/18/2015 ANTONIA TALLEY Ot R30.0 06/18/2015 ANTONIA TALLEY Ot R39.15 06/18/2015 ANTONIA TALLEY Ot V58.69 06/18/2015 ANTONIA TALLEY Ot Z79.899 06/24/2015 BULLOCKJUSTINE WISEMAN APRN Ot R19.7 07/30/2015 ANTONIA TALLEY Ot D72.819 DECREASED WHITE BLOOD CELL COUNT, UNSPEC 07/30/2015 ANTONIA TALLEY Ot R30.0 DYSURIA 07/30/2015 ANTONIA TALLEY Ot R39.15 URGENCY OF URINATION 07/30/2015 ANTONIA TALLEY Ot Z79.899 OTHER PROCESSING SUPERVISOR (CURRENT) DRUG THERAPY 10/31/2015 CAROLE ROSEP Ot D70.9 NEUTROPENIA, UNSPECIFIED 11/21/2015 CAROLE ROSEP Ot D70.9 NEUTROPENIA, UNSPECIFIED 11/25/2015 CAROLE ROSEP Ot D70.9 NEUTROPENIA, UNSPECIFIED 03/12/2016 GUERA CUEVAS, [...] Ot 733.00 OSTEOPOROSIS NOS 03/17/2016 CAROLE ROSE COMMUNITY OUTREACH WORKER Ot 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 03/17/2016 CAROLE ROSE COMMUNITY OUTREACH WORKER Ot 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 03/17/2016 CAROLE ROSE COMMUNITY OUTREACH WORKER Ot 288.50 LEUKOCYTOPENIA, UNSPECIFIED 03/17/2016 CAROLE ROSE COMMUNITY OUTREACH WORKER Ot 345.90 EPILEPSY UNSPEC W/O MENTION INTRACTABLE 03/17/2016 CAROLE ROSE COMMUNITY OUTREACH WORKER Ot 714.0 RHEUMATOID ARTHRITIS 03/17/2016 CAROLE ROSE COMMUNITY OUTREACH WORKER Ot 780.4 DIZZINESS AND GIDDINESS 03/17/2016 CAROLE ROSE COMMUNITY OUTREACH WORKER Ot V58.69 OTH MED,LT,CURRENT USE 03/17/2016 ANTONIA TALLEY Ot 574.10 CHOLELITH W CHOLECYS NEC 03/17/2016 ANTONIA TALLEY N Ot 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 03/17/2016 LILIANE CUEVAS, ANDREI Mendez Ot V76.12 OTH SCREEN MAMMO-MALIGN NEOPLASM OF DANNY 03/17/2016 CAROLE ROSE COMMUNITY OUTREACH WORKER Ot 288.00 NEUTROPENIA, UNSPECIFIED 03/17/2016 CAROLE ROSE COMMUNITY OUTREACH WORKER Ot 288.50 LEUKOCYTOPENIA, UNSPECIFIED 03/17/2016 CAROLE ROSE COMMUNITY OUTREACH WORKER Ot 574.10 CHOLELITH W CHOLECYS NEC 03/17/2016 CAROLE ROSE COMMUNITY OUTREACH WORKER Ot 714.0 RHEUMATOID ARTHRITIS 03/17/2016 CAROLE ROSE COMMUNITY OUTREACH WORKER Ot 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 03/17/2016 CAROLE ROSE COMMUNITY OUTREACH WORKER Ot V58.69 OTH MED,LT,CURRENT USE 03/17/2016 CAROLE ROSE COMMUNITY OUTREACH WORKER Ot 288.00 NEUTROPENIA, UNSPECIFIED 03/17/2016 CAROLE ROSE COMMUNITY OUTREACH WORKER Ot 288.50 LEUKOCYTOPENIA, UNSPECIFIED 03/17/2016 CAROLE ROSE COMMUNITY OUTREACH WORKER Ot 564.00 UNSPEC CONSTIPATION 03/17/2016 CAROLE ROSE COMMUNITY OUTREACH WORKER Ot 714.0 RHEUMATOID ARTHRITIS 03/17/2016 CAROLE ROSE COMMUNITY OUTREACH WORKER Ot 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 03/17/2016 CAROLE ROSE COMMUNITY OUTREACH WORKER Ot 733.90 BONE CARTILAGE DIS NOS 03/17/2016 CAROLE ROSE COMMUNITY OUTREACH WORKER Ot V58.65 LONG-TERM(CURRENT)USE OF STEROIDS 03/17/2016 CAROLE ROSE COMMUNITY OUTREACH WORKER Ot V58.69 OTH MED,LT,CURRENT USE 03/17/2016 DANNIE CUEVAS, BRIANNA Rajput Ot G40.909 EPILEPSY, UNSP, NOT INTRACTABLE, WITHOUT 03/17/2016 JUSTINE BULLOCK PROCESSING SUPERVISOR Ot R19.7 DIARRHEA, UNSPECIFIED 03/17/2016 ANTONIA TALLEY [...] URINATION 03/17/2016 ANTONIA TALLEY N Ot V58.69 OTH MED,LT,CURRENT USE 03/17/2016 ANTONIA TALLEY N Ot Z79.899 OTHER JAIL (CURRENT) DRUG THERAPY 03/17/2016 CAROLE ROSEP Ot D70.9 NEUTROPENIA, UNSPECIFIED 03/17/2016 GUERA CUEVAS, MICHAEL Hendrix Ot M06.9 RHEUMATOID ARTHRITIS, UNSPECIFIED 03/17/2016 GUERA CUEVAS, MICHAEL Hendrix Ot R26.81 UNSTEADINESS ON FEET 03/17/2016 GUERA CUEVAS, MICHAEL Hendrix Ot M06.9 RHEUMATOID ARTHRITIS, UNSPECIFIED 03/17/2016 GUERA CUEVAS, MICHAEL Hendrix Ot R26.81 UNSTEADINESS ON FEET 04/22/2016 GUERA CUEVAS, MICHAEL Hendrix Ot M06.9 RHEUMATOID ARTHRITIS, UNSPECIFIED 04/22/2016 GUERA CUEVAS, MICHAEL Hendrix Ot R26.9 UNSPECIFIED ABNORMALITIES OF GAIT AND MO 09/09/2016 JAMIE CASAREZ PROCESSING SUPERVISOR Ot M54.5 LOW BACK PAIN 09/10/2016 JAMIE CASAREZ PROCESSING SUPERVISOR Ot M54.5 LOW BACK PAIN 10/31/2016 CAROLE ROSE COMMUNITY OUTREACH WORKER Ot D70.9 NEUTROPENIA, UNSPECIFIED 10/31/2016 CAROLE ROSE COMMUNITY OUTREACH WORKER Ot D70.9 NEUTROPENIA, UNSPECIFIED 10/31/2016 CAROLE ROSE COMMUNITY OUTREACH WORKER Ot D70.9 NEUTROPENIA, UNSPECIFIED 11/05/2016 ANTONIA TALLEY N Ot 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 11/05/2016 ANTONIA TALLEY Eugene Ot 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 11/05/2016 ANTONIA TALLEY N 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 11/05/2016 MAYANK, ANTONIA N Ot 288.00 NEUTROPENIA, UNSPECIFIED 11/05/2016 MAYANK ANTONIA N Ot 345.90 EPILEPSY UNSPEC W/O MENTION INTRACTABLE 11/05/2016 MAYANKANTONIA BANDA N Ot 714.0 RHEUMATOID ARTHRITIS 11/05/2016 MAYANK ANTONIA N Ot D72.819 DECREASED WHITE BLOOD CELL COUNT, UNSPEC 11/05/2016 ANTONIA TALLEY N Ot R30.0 DYSURIA 11/05/2016 MAYANKANTONIA N Ot R39.15 URGENCY OF URINATION 11/05/2016 BREANA TALLEYBARAK Eugene Ot V58.69 OT MED,LT,CURRENT USE 11/05/2016 ANTONIA TALLEY N Ot Z79.899 OTHER JAIL (CURRENT) DRUG THERAPY 12/10/2016 ANTONIA TALLEY N Ot D35.2 BENIGN NEOPLASM OF PITUITARY GLAND 12/10/2016 MAYANKANTONIA N Ot D64.9 ANEMIA, UNSPECIFIED 12/10/2016 MAYANKBREANABARAK N Ot D72.819 DECREASED WHITE BLOOD CELL COUNT, UNSPEC 12/10/2016 MAYANKANTONIA N Ot 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 12/10/2016 MAYANKANTONIA N Ot M06.9 RHEUMATOID ARTHRITIS, UNSPECIFIED 12/10/2016 MAYANK BREANABARAK N Ot R56.9 UNSPECIFIED CONVULSIONS 12/10/2016 MAYANKANTONIA N Ot Z79.899 OTHER JAIL (CURRENT) DRUG THERAPY 12/21/2016 MAYANKANTONIA N Ot D35.2 BENIGN NEOPLASM OF PITUITARY GLAND 12/21/2016 ANTONIA TALLEY N Ot D64.9 ANEMIA, UNSPECIFIED 12/21/2016 MAYANK BREANABARAK N Ot D72.819 DECREASED WHITE BLOOD CELL COUNT, UNSPEC 12/21/2016 MAYANKANTONIA N Ot 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 12/21/2016 BREANA TALLEYAN N Ot M06.9 RHEUMATOID ARTHRITIS, UNSPECIFIED 12/21/2016 MAYANK, BOBAN N Ot R56.9 UNSPECIFIED CONVULSIONS 12/21/2016 MAYANK, BOBAN N Ot Z79.899 OTHER JAIL (CURRENT) DRUG THERAPY 01/21/2017 MAYANKBREANAAN N Ot D35.2 BENIGN NEOPLASM OF PITUITARY GLAND 01/21/2017 MAYANK, BOBAN N Ot D64.9 ANEMIA, UNSPECIFIED 01/21/2017 MAYANK, BOBAN N Ot D72.819 DECREASED WHITE BLOOD CELL COUNT, UNSPEC 01/21/2017 MAYANK, BOBAN N Ot 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 01/21/2017 MAYANK, BOBAN N Ot M06.9 RHEUMATOID ARTHRITIS, UNSPECIFIED 01/21/2017 MAYANK, BOBAN N Ot R56.9 UNSPECIFIED CONVULSIONS 01/21/2017 MAYANK, BOBAN N Ot Z79.899 OTHER PROCESSING SUPERVISOR (CURRENT) DRUG THERAPY 02/02/2017 MAYANK, BOBAN N [...] 02/02/2017 MAYANK, BOBAN N Ot Z79.899 OTHER PROCESSING SUPERVISOR (CURRENT) DRUG THERAPY 02/08/2017 MAYANK, BOBAN N [...] 02/08/2017 MAYANK, BOBAN N Ot Z79.899 OTHER PROCESSING SUPERVISOR (CURRENT) DRUG THERAPY 03/04/2017 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 03/04/2017 Ot 714.0 RHEUMATOID ARTHRITIS 03/04/2017 Ot 733.00 OSTEOPOROSIS NOS 03/04/2017 CAROLE ROSE COMMUNITY OUTREACH WORKER Ot 227.3 BENIGN [place] PITUITARY 03/04/2017 CAROLE ROSE COMMUNITY OUTREACH WORKER Ot 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 03/04/2017 CAROLE ROSE COMMUNITY OUTREACH WORKER Ot 288.50 LEUKOCYTOPENIA, UNSPECIFIED 03/04/2017 CAROLE ROSE COMMUNITY OUTREACH WORKER Ot 345.90 EPILEPSY UNSPEC W/O MENTION INTRACTABLE 03/04/2017 CAROLE ROSEP Ot 714.0 RHEUMATOID ARTHRITIS 03/04/2017 CAROLE ROSEP Ot 780.4 DIZZINESS AND GIDDINESS 03/04/2017 CAROLE ROSEP Ot V58.69 OTH MED,LT,CURRENT USE 03/04/2017 ANTONIA TALLEY Eugene Ot 574.10 CHOLELITH W CHOLECYS NEC 03/04/2017 ANTONIA TALLEY Eugene Ot 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 03/04/2017 LILIANE CUEVAS, ANDREI F Ot V76.12 OTH SCREEN MAMMO-MALIGN NEOPLASM OF DANNY 03/04/2017 CAROLE ROSEP Ot 288.00 NEUTROPENIA, UNSPECIFIED 03/04/2017 CAROLE ROSE COMMUNITY OUTREACH WORKER Ot 288.50 LEUKOCYTOPENIA, UNSPECIFIED 03/04/2017 CAROLE ROSEP Ot 574.10 CHOLELITH W CHOLECYS NEC 03/04/2017 CAROLE ROSE COMMUNITY OUTREACH WORKER Ot 714.0 RHEUMATOID ARTHRITIS 03/04/2017 CAROLE ROSE COMMUNITY OUTREACH WORKER Ot 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 03/04/2017 CAROLE ROSEP Ot V58.69 OTH MED,LT,CURRENT USE 03/04/2017 CAROLE ROSEP Ot 288.00 NEUTROPENIA, UNSPECIFIED 03/04/2017 CAROLE ROSE COMMUNITY OUTREACH WORKER Ot 288.50 LEUKOCYTOPENIA, UNSPECIFIED 03/04/2017 CAROLE ROSE COMMUNITY OUTREACH WORKER Ot 564.00 UNSPEC CONSTIPATION 03/04/2017 ROSE, HILAH S COMMUNITY OUTREACH WORKER Ot 714.0 RHEUMATOID ARTHRITIS 03/04/2017 CAROLE ROSE COMMUNITY OUTREACH WORKER Ot 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 03/04/2017 CAROLE ROSE COMMUNITY OUTREACH WORKER Ot 733.90 BONE CARTILAGE DIS NOS 03/04/2017 CAROLE ROSE COMMUNITY OUTREACH WORKER Ot V58.65 LONG-TERM(CURRENT)USE OF STEROIDS 03/04/2017 CAROLE ROSE COMMUNITY OUTREACH WORKER Ot V58.69 OTH MED,LT,CURRENT USE 03/04/2017 BRIANNA PANDEY MD Ot G40.909 EPILEPSY, UNSP, NOT INTRACTABLE, WITHOUT 03/04/2017 JUSTINE BULLOCK PROCESSING SUPERVISOR Ot R19.7 DIARRHEA, UNSPECIFIED 03/04/2017 CAROLE ROSE COMMUNITY OUTREACH WORKER Ot D70.9 NEUTROPENIA, UNSPECIFIED 03/04/2017 JAMIE CASAREZ PROCESSING SUPERVISOR Ot M54.5 LOW BACK PAIN 03/04/2017 ANTONIA TALLEY Ot D35.2 BENIGN NEOPLASM OF PITUITARY GLAND 03/04/2017 ANTONIA TALLEY Ot D64.9 ANEMIA, UNSPECIFIED 03/04/2017 MAYANKANTONIA Ot D72.819 DECREASED WHITE BLOOD CELL COUNT, UNSPEC 03/04/2017 ANTONIA TALLEY N Ot 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 03/04/2017 ANTONIA TALLEY Ot M06.9 RHEUMATOID ARTHRITIS, UNSPECIFIED 03/04/2017 MAYANKANTONIA N Ot R56.9 UNSPECIFIED CONVULSIONS 03/04/2017 MAYANK ANTONIA Eugene Ot Z79.899 OTHER PROCESSING SUPERVISOR (CURRENT) DRUG THERAPY 03/15/2017 MICHAEL LYNNE MD [...] OBSTRUCTIVE PULMONARY DISEASE, U 04/05/2017 MICHAEL LYNNE MD, Ot M47.812 SPONDYLOSIS W/O [...] LYNNE MD Ot Y92.012 BATHROOM OF SINGLE-FAMILY ([facility]) [facility] 04/05/2017 MICHAEL LYNNE MD Ot Y99.8 OTHER EXTERNAL CAUSE STATUS 04/05/2017 MICHAEL LYNNE MD Ot Z79.890 HORMONE REPLACEMENT THERAPY 04/05/2017 MICHAEL LYNNE MD Ot Z79.899 OTHER JAIL (CURRENT) DRUG THERAPY 04/05/2017 MICHAEL LYNNE MD Ot Z86.79 PERSONAL HISTORY OF OTHER DISEASES OF TH 04/12/2017 MICHAEL LYNNE MD Ot E78.00 PURE HYPERCHOLESTEROLEMIA, UNSPECIFIED 04/12/2017 MICHAEL LYNNE MD Ot G40.909 EPILEPSY, UNSP, NOT INTRACTABLE, WITHOUT 04/12/2017 MICHAEL LYNNE MD, Ot J44.9 CHRONIC OBSTRUCTIVE PULMONARY DISEASE, U [...] LYNNE MD Ot Y92.012 BATHROOM OF SINGLE-FAMILY ([facility]) [facility] 04/12/2017 MICHAEL LYNNE MD Ot Y99.8 OTHER EXTERNAL CAUSE STATUS 04/12/2017 MICHAEL LYNNE MD Ot Z79.890 HORMONE REPLACEMENT THERAPY 04/12/2017 MICHAEL LYNNE MD Ot Z79.899 OTHER JAIL (CURRENT) DRUG THERAPY 04/12/2017 MICHAEL LYNNE MD Ot Z86.79 PERSONAL HISTORY OF OTHER DISEASES OF TH 05/03/2017 MICHAEL LYNNE MD Ot R42 DIZZINESS AND GIDDINESS 05/03/2017 MICHAEL LYNNE MD Ot R53.1 WEAKNESS 05/20/2017 JAMIE CASAREZ PROCESSING SUPERVISOR Ot R42 DIZZINESS AND GIDDINESS 05/20/2017 JAMIE CASAREZ PROCESSING SUPERVISOR Ot R53.1 WEAKNESS 07/11/2017 JAMIE CASAREZ PROCESSING SUPERVISOR Ot R42 DIZZINESS AND GIDDINESS 07/11/2017 JAMIE CASAREZ PROCESSING SUPERVISOR Ot R53.1 WEAKNESS 07/12/2017 JAMIE CASAREZ PROCESSING SUPERVISOR Ot R42 DIZZINESS AND GIDDINESS 07/12/2017 JAMIE CASAREZ PROCESSING SUPERVISOR Ot R53.1 WEAKNESS 08/04/2017 JAMIE CASAREZ PROCESSING SUPERVISOR Ot R42 DIZZINESS AND GIDDINESS 08/04/2017 JAMIE CASAREZ PROCESSING SUPERVISOR Ot R53.1 WEAKNESS 08/08/2017 JAMIE CASAREZ PROCESSING SUPERVISOR Ot R42 DIZZINESS AND GIDDINESS 08/08/2017 JAMIE CASAREZ PROCESSING SUPERVISOR Ot R53.1 WEAKNESS 12/02/2017 ANTONIA TALLEY N Ot D35.2 BENIGN NEOPLASM OF PITUITARY GLAND 12/02/2017 ANTONIA TALLEY N Ot D64.9 ANEMIA, UNSPECIFIED 12/02/2017 ANTONIA TALLEY N Ot D72.819 DECREASED WHITE BLOOD CELL COUNT, UNSPEC 12/02/2017 ANTONIA TALLEY N Ot 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 12/02/2017 ANTONIA TALLEY N Ot M06.9 RHEUMATOID ARTHRITIS, UNSPECIFIED 12/02/2017 ANTONIA TALLEY N Ot R56.9 UNSPECIFIED CONVULSIONS 12/02/2017 ANTONIA TALLEY N Ot Z79.899 OTHER PROCESSING SUPERVISOR (CURRENT) DRUG THERAPY 12/06/2017 ANTONIA TALLEY N Ot D35.2 BENIGN NEOPLASM OF PITUITARY GLAND 12/06/2017 ANTONIA TALLEY N Ot D64.9 ANEMIA, UNSPECIFIED 12/06/2017 MAYANK, BOBAN N Ot D72.819 DECREASED WHITE BLOOD CELL COUNT, UNSPEC 12/06/2017 MAYANKANTONIA N Ot 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 12/06/2017 MAYANKANTONIA BANDA N Ot M06.9 RHEUMATOID ARTHRITIS, UNSPECIFIED 12/06/2017 MAYANK, BOBAN N Ot R56.9 UNSPECIFIED CONVULSIONS 12/06/2017 MAYANK BOBAN N Ot Z79.899 OTHER PROCESSING SUPERVISOR (CURRENT) DRUG THERAPY 02/07/2018 MAYANKANTONIA BANDA N Ot D35.2 BENIGN NEOPLASM OF PITUITARY GLAND 02/07/2018 MAYANKANTONIA BANDA N Ot D47.2 MONOCLONAL GAMMOPATHY 02/07/2018 MAYANK, BOBBARAK N Ot D64.9 ANEMIA, UNSPECIFIED 02/07/2018 MAYANK, BOBBARAK N Ot D72.819 DECREASED WHITE BLOOD CELL COUNT, UNSPEC 02/07/2018 MAYANKANTONIA BANDA N Ot 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 02/07/2018 MAYANKANTONIA N Ot M06.9 RHEUMATOID ARTHRITIS, UNSPECIFIED 02/07/2018 MAYANK, ANTONIA N Ot M85.80 OTH DISRD OF BONE DENSITY AND STRUCTURE, 02/07/2018 MAYANKANTONIA BANDA N Ot R56.9 UNSPECIFIED CONVULSIONS 02/07/2018 MAYANK, BOBBARAK N Ot Z79.899 OTHER PROCESSING SUPERVISOR (CURRENT) DRUG THERAPY 04/07/2018 PATTI CUEVAS, CATIE M Ot Z01.818 ENCOUNTER FOR OTHER PREPROCEDURAL EXAMIN 04/10/2018 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 04/10/2018 MAYANK, BOBAN N Ot D35.2 BENIGN NEOPLASM OF PITUITARY GLAND 04/10/2018 MAYANK, ANTONIA N Ot D64.9 ANEMIA, UNSPECIFIED 04/10/2018 MAYANK, BOBAN N Ot D72.819 DECREASED WHITE BLOOD CELL COUNT, UNSPEC 04/10/2018 MAYANK, BOBAN N Ot 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 04/10/2018 MAYANK, BOBAN N Ot M06.9 RHEUMATOID ARTHRITIS, UNSPECIFIED 04/10/2018 MAYANK, BOBAN N Ot R56.9 UNSPECIFIED CONVULSIONS 04/10/2018 MAYANK, BOBAN N Ot Z79.899 OTHER JAIL (CURRENT) DRUG THERAPY 04/10/2018 PATTI CUEVAS, CATIE Hurtado Ot Z01.818 ENCOUNTER FOR OTHER PREPROCEDURAL EXAMIN 04/12/2018 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 04/12/2018 CAROLE ROSE COMMUNITY OUTREACH WORKER Ot 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 04/12/2018 CAROLE ROSE COMMUNITY OUTREACH WORKER Ot 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 04/12/2018 CAROLE ROSE COMMUNITY OUTREACH WORKER Ot 288.50 LEUKOCYTOPENIA, UNSPECIFIED 04/12/2018 CAROLE ROSE COMMUNITY OUTREACH WORKER Ot 345.90 EPILEPSY UNSPEC W/O MENTION INTRACTABLE 04/12/2018 CAROLE ROSE COMMUNITY OUTREACH WORKER Ot 714.0 RHEUMATOID ARTHRITIS 04/12/2018 CAROLE ROSE COMMUNITY OUTREACH WORKER Ot 780.4 DIZZINESS AND GIDDINESS 04/12/2018 CAROLE ROSE COMMUNITY OUTREACH WORKER Ot V58.69 OTH MED,LT,CURRENT USE 04/12/2018 ANTONIA TALLEY Ot 574.10 CHOLELITH W CHOLECYS NEC 04/12/2018 ANTONIA TALLEY Ot 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 04/12/2018 LILIANE CUEVAS, ANDREI Mendez Ot V76.12 OTH SCREEN MAMMO-MALIGN NEOPLASM OF DANNY 04/12/2018 CAROLE ROSE COMMUNITY OUTREACH WORKER Ot 288.00 NEUTROPENIA, UNSPECIFIED 04/12/2018 CAROLE ROSE COMMUNITY OUTREACH WORKER Ot 288.50 LEUKOCYTOPENIA, UNSPECIFIED 04/12/2018 CAROLE ROSE COMMUNITY OUTREACH WORKER Ot 574.10 CHOLELITH W CHOLECYS NEC 04/12/2018 CAROLE ROSE COMMUNITY OUTREACH WORKER Ot 714.0 RHEUMATOID ARTHRITIS 04/12/2018 CAROLE ROSE COMMUNITY OUTREACH WORKER Ot 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 04/12/2018 CAROLE ROSE COMMUNITY OUTREACH WORKER Ot V58.69 OTH MED,LT,CURRENT USE 04/12/2018 CAROLE ROSE COMMUNITY OUTREACH WORKER Ot 288.00 NEUTROPENIA, UNSPECIFIED 04/12/2018 CAROLE ROSE COMMUNITY OUTREACH WORKER Ot 288.50 LEUKOCYTOPENIA, UNSPECIFIED 04/12/2018 CAROLE ROSE COMMUNITY OUTREACH WORKER Ot 564.00 UNSPEC CONSTIPATION 04/12/2018 CAROLE ROSE COMMUNITY OUTREACH WORKER Ot 714.0 RHEUMATOID ARTHRITIS 04/12/2018 CAROLE ROSE COMMUNITY OUTREACH WORKER Ot 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 04/12/2018 CAROLE ROSE COMMUNITY OUTREACH WORKER Ot 733.90 BONE CARTILAGE DIS NOS 04/12/2018 CAROLE ROSE COMMUNITY OUTREACH WORKER Ot V58.65 LONG-TERM(CURRENT)USE OF STEROIDS 04/12/2018 CAROLE ROSE COMMUNITY OUTREACH WORKER Ot V58.69 OTH MED,LT,CURRENT USE 04/12/2018 DANNIE CUEVAS, BRIANNA Rajput Ot G40.909 EPILEPSY, UNSP, NOT INTRACTABLE, WITHOUT 04/12/2018 JUSTINE BULLOCK PROCESSING SUPERVISOR Ot R19.7 DIARRHEA, UNSPECIFIED 04/12/2018 CARO[place] ROSE COMMUNITY OUTREACH WORKER Ot D70.9 NEUTROPENIA, UNSPECIFIED 04/12/2018 JAMIE CASAREZ PROCESSING SUPERVISOR Ot M54.5 LOW BACK PAIN 04/12/2018 GUERA [...] CONVULSIONS 04/12/2018 ANTONIA TALLEY Ot Z79.899 OTHER JAIL (CURRENT) DRUG THERAPY 04/12/2018 PATTI CUEVAS, CATIE Hurtado Ot Z01.818 ENCOUNTER FOR OTHER PREPROCEDURAL EXAMIN 04/13/2018 PATTI CUEVAS, CATIE Hurtado Ot D47.2 MONOCLONAL GAMMOPATHY 04/13/2018 PATTI CUEVAS, CATIE Hurtado Ot 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 04/13/2018 PATTI CUEVAS, CATIE Hurtado Ot G40.909 EPILEPSY, UNSP, NOT INTRACTABLE, WITHOUT 04/13/2018 PATTI CUEVAS, CATIE Hurtado Ot K80.10 CALCULUS OF GALLBLADDER W CHRONIC CHOLEC 04/13/2018 CATIE ARMSTRONG MD Ot M06.9 RHEUMATOID ARTHRITIS, UNSPECIFIED 04/13/2018 CATIE ARMSTRONG MD Ot M85.80 OTH DISRD OF BONE DENSITY AND STRUCTURE, 04/13/2018 CATIE ARMSTRONG MD Ot Z11.2 ENCOUNTER FOR SCREENING FOR OTHER BACTER 04/13/2018 CATIE ARMSTRONG MD Ot Z79.899 OTHER JAIL (CURRENT) DRUG THERAPY 04/14/2018 CATIE ARMSTRONG MD Ot D47.2 MONOCLONAL GAMMOPATHY 04/14/2018 CATIE ARMSTRONG MD Ot 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 04/14/2018 CATIE ARMSTRONG MD Ot G40.909 EPILEPSY, UNSP, NOT INTRACTABLE, WITHOUT 04/14/2018 CATIE ARMSTRONG MD Ot K80.10 CALCULUS OF GALLBLADDER W CHRONIC CHOLEC 04/14/2018 CATIE ARMSTRONG MD, Ot M06.9 RHEUMATOID ARTHRITIS, UNSPECIFIED 04/14/2018 CATIE ARMSTRONG MD Ot M85.80 OTH DISRD OF BONE DENSITY AND STRUCTURE, 04/14/2018 CATIE ARMSTRONG MD Ot Z11.2 ENCOUNTER FOR SCREENING FOR OTHER BACTER 04/14/2018 CATIE ARMSTRONG MD Ot Z79.899 OTHER PROCESSING SUPERVISOR (CURRENT) DRUG THERAPY 04/16/2018 CATIE ARMSTRONG MD Ot E78.00 PURE HYPERCHOLESTEROLEMIA, UNSPECIFIED 04/16/2018 CATIE ARMSTRONG MD Ot E86.0 DEHYDRATION 04/16/2018 CATIE ARMSTRONG MD Ot E87.6 HYPOKALEMIA 04/16/2018 CATIE ARMSTRONG MD Ot F32.9 MAJOR DEPRESSIVE DISORDER, SINGLE EPISOD 04/16/2018 CATIE ARMSTRONG MD Ot G40.909 EPILEPSY, UNSP, NOT INTRACTABLE, WITHOUT 04/16/2018 CATIE ARMSTRONG MD Ot K91.0 VOMITING FOLLOWING GASTROINTESTINAL SURG 04/16/2018 CATIE ARMSTRONG MD Ot M06.9 RHEUMATOID ARTHRITIS, UNSPECIFIED 04/16/2018 CATIE ARMSTRONG MD Ot Z79.899 OTHER PROCESSING SUPERVISOR (CURRENT) DRUG THERAPY 07/17/2018 JOANA WATKINS MD Ot E78.00 PURE HYPERCHOLESTEROLEMIA, UNSPECIFIED 07/17/2018 JOANA WATKINS MD Ot F32.9 MAJOR DEPRESSIVE DISORDER, SINGLE EPISOD 07/17/2018 JOANA WATKINS MD Ot G40.909 EPILEPSY, UNSP, NOT INTRACTABLE, WITHOUT 07/17/2018 JOANA WATKINS MD Ot J32.9 CHRONIC SINUSITIS, UNSPECIFIED 07/17/2018 JOANA WATKINS MD, Ot M06.9 RHEUMATOID ARTHRITIS, UNSPECIFIED 07/17/2018 JOANA WATKINS MD Ot N39.0 URINARY TRACT INFECTION, SITE NOT SPECIF 07/17/2018 JOANA WATKINS MD Ot R56.9 UNSPECIFIED CONVULSIONS 07/17/2018 JOANA WATKINS MD Ot Z87.19 PERSONAL HISTORY OF OTHER DISEASES OF TH 07/17/2018 JOANA WATKINS MD, Ot Z87.440 PERSONAL HISTORY OF URINARY (TRACT) INFE 07/17/2018 JOANA WATKINS MD Ot Z90.710 ACQUIRED ABSENCE OF BOTH CERVIX AND UTER 07/17/2018 JOANA WATKINS MD Ot Z98.890 OTHER SPECIFIED POSTPROCEDURAL STATES 07/19/2018 JOANA WATKINS MD Ot E78.00 PURE HYPERCHOLESTEROLEMIA, UNSPECIFIED 07/19/2018 JOANA WATKINS MD Ot F32.9 MAJOR DEPRESSIVE DISORDER, SINGLE EPISOD 07/19/2018 JOANA WATKINS MD Ot G40.909 EPILEPSY, UNSP, NOT INTRACTABLE, WITHOUT 07/19/2018 JOANA WATKINS MD Ot J32.9 CHRONIC SINUSITIS, UNSPECIFIED 07/19/2018 JOANA WATKINS MD Ot M06.9 RHEUMATOID ARTHRITIS, UNSPECIFIED 07/19/2018 JOANA WATKINS MD Ot N39.0 URINARY TRACT INFECTION, SITE NOT SPECIF 07/19/2018 JOANA WATKINS MD Ot R56.9 UNSPECIFIED CONVULSIONS 07/19/2018 JOANA WATKINS MD Ot Z87.19 PERSONAL HISTORY OF OTHER DISEASES OF 07/19/2018 JOANA WATKINS MD Ot Z87.440 PERSONAL HISTORY OF URINARY (TRACT) INFE 07/19/2018 JOANA WATKINS MD Ot Z90.710 ACQUIRED ABSENCE OF BOTH CERVIX AND UTER 07/19/2018 JOANA WATKINS MD Ot Z98.890 OTHER SPECIFIED POSTPROCEDURAL STATES 12/05/2018 JAMIE CASAREZ APRN Ot M81.0 AGE-RELATED OSTEOPOROSIS W/O CURRENT PAT 12/08/2018 JAMIE CASAREZ APRN Ot M81.0 AGE-RELATED OSTEOPOROSIS W/O CURRENT PAT Procedures There is no data. Results Test [...] Automated erythrocyte mean corpuscular hemoglobin concentration measurement (mass/volume) 35 g/dL 32-36 Automated erythrocyte distribution width ratio 13.1 % 10.0- 14.5 Automated blood platelet count (count/volume) 171 10*3/uL [...] Blood monocytes automated count (number/volume) 0.6 10*3 0.0- 1.0 Automated eosinophil count 0.1 10*3/uL 0.0-0.3 Automated [...] Serum or plasma aspartate aminotransferase measurement (enzymatic activity/volume) 16 U/L 5-34 Serum or plasma alanine aminotransferase measurement (enzymatic activity/volume) 9 U/L 0-55 Serum or plasma protein measurement (mass/volume) 7.9 g/dL 6.4-8.2 Serum or plasma albumin measurement (mass/volume) 3.6 g/dL 3.2-4.5 Magnesium - 04/02/17 22:27 Magnesium 2.0 mg/dL 1.8-2.4 Serum or plasma creatine kinase measurement (enzymatic activity/volume) - 04/02/17 22:27 Serum or plasma creatine kinase measurement [...] creatine kinase MB measurement (enzymatic activity/volume) - 04/02/17 Serum or plasma creatine kinase MB measurement (enzymatic activity/volume) 1.7 ng/mL <6.6 Serum or plasma thyrotropin measurement by detection limit <=0.05 miu/l (units/volume) - 04/02/17 Serum or plasma thyrotropin measurement by detection limit <=0.05 miu/l (units/volume) 1.97 u[iU]/mL 0.35-4.94 Serum or plasma troponin i.cardiac measurement (mass/volume) - 04/02/17 Serum or plasma troponin i.cardiac measurement (mass/volume) < ng/mL <0.30 Serum or plasma phenytoin measurement (mass/volume) - 04/02/17 Serum or plasma phenytoin measurement (mass/volume) 8.9 ug/mL 10.0-20.0 Serum or plasma thyrotropin measurement by detection limit <=0.05 miu/l (units/volume) - 04/02/17 Serum or plasma thyrotropin measurement by detection limit <=0.05 miu/l (units/volume) 1.97 u[iU]/mL 0.35-4.94 Serum or plasma phenytoin measurement (mass/volume) - 04/02/17 Serum or plasma phenytoin measurement (mass/volume) 8.9 ug/mL 10.0-20.0 Valproic acid - 04/02/17 Valproic acid < ug/mL 50.0-100.0 Complete urinalysis with reflex to culture - 04/03/17 01:25 Urine color determination YELLOW NRG Urine clarity determination SLIGHTLY CLOUDY NRG Urine pH measurement by test strip 7 5-9 Specific gravity of urine by test strip 1.010 1.016-1.022 Urine protein assay by test strip, semi-quantitative [...] sediment leukocyte count by microscopy (number/high power field) [HPF] NRG Bacteria detection in urine sediment by light microscopy LARGE NRG Crystals detection in urine sediment by light microscopy NONE NRG Casts detection in urine sediment by light microscopy NONE NRG Mucus detection in urine sediment by light microscopy NEGATIVE NRG Complete urinalysis with reflex to culture YES NRG Bacterial urine culture - 04/03/17 01:25 Bacterial urine culture [id number] NRG COLONY COUNT >100,000/ML NRG FTX;REPORTABLE SENSITIIVITY REPORTED AT 0904-04-17 NR FREE TEXT ENTRY 3 MIXED GRAM POSITIVE EDDA <10,000/ML NRG Bacterial susceptibility panel - 04/03/17 01:25 Gentamicin susceptibility test by minimum inhibitory concentration <= NRG Trimethoprim/sulfamethoxazole susceptibility test by minimum inhibitoryconcentration <= NRG Ampicillin susceptibility test by minimum inhibitory concentration R NRG Tobramycin susceptibility test by minimum inhibitory concentration <= NRG Cefazolin susceptibility test by minimum inhibitory concentration <= NRG Ceftriaxone susceptibility test by minimum inhibitory concentration <= NRG Ampicillin/sulbactam susceptibility test by minimum inhibitory concentration 4 NRG Piperacillin/tazobactam susceptibility test by minimum inhibitory concentration <= NRG Ciprofloxacin susceptibility test by minimum inhibitory concentration <= NRG Meropenem susceptibility test by minimum inhibitory concentration <= NRG Nitrofurantoin susceptibility test by minimum inhibitory concentration 32 NRG Aztreonam susceptibility test by minimum inhibitory concentration <= NRG Extended spectrum beta lactamase (ESBL) producing bacteria susceptibility test by minimum inhibitory concentration - NR Methicillin resistant Staphylococcus aureus (MRSA) screening culture - 04/03/17 01:25 Methicillin resistant Staphylococcus aureus (MRSA) screening [...] Automated erythrocyte mean corpuscular hemoglobin concentration measurement (mass/volume) 34 g/dL 32-36 Automated erythrocyte distribution width ratio 13.0 % 10.0- 14.5 Automated blood platelet count (count/volume) 144 10*3/uL [...] Blood monocytes automated count (number/volume) 0.5 10*3 0.0- 1.0 Automated eosinophil count 0.0 10*3/uL 0.0-0.3 Automated [...] Serum or plasma aspartate aminotransferase measurement (enzymatic activity/volume) 18 U/L 5-34 Serum or plasma alanine aminotransferase measurement (enzymatic activity/volume) 9 U/L 0-55 Serum or plasma protein [...] Automated erythrocyte mean corpuscular hemoglobin concentration measurement (mass/volume) 34 g/dL 32-36 Automated erythrocyte distribution width ratio 12.9 % 10.0- 14.5 Automated blood platelet count (count/volume) 135 10*3/uL [...] Blood monocytes automated count (number/volume) 0.5 10*3 0.0- 1.0 Automated eosinophil count 0.0 10*3/uL 0.0-0.3 Automated [...] Automated erythrocyte mean corpuscular hemoglobin concentration measurement (mass/volume) 34 g/dL 32-36 Automated erythrocyte distribution width ratio 12.8 % 10.0- 14.5 Automated blood platelet count (count/volume) 140 10*3/uL [...] Blood monocytes automated count (number/volume) 0.4 10*3 0.0- 1.0 Automated eosinophil count 0.0 10*3/uL 0.0-0.3 Automated [...] resistant Staphylococcus aureus (MRSA) screening culture - 04/12/18 10:21 Methicillin resistant Staphylococcus aureus (MRSA) screening [...] Automated erythrocyte mean corpuscular hemoglobin concentration measurement (mass/volume) 34 g/dL 32-36 Automated erythrocyte distribution width ratio 12.8 % 10.0- 14.5 Automated blood platelet count (count/volume) 139 10*3/uL [...] Blood monocytes automated count (number/volume) 0.4 10*3 0.0- 1.0 Automated eosinophil count 0.0 10*3/uL 0.0-0.3 Automated [...] Serum or plasma aspartate aminotransferase measurement (enzymatic activity/volume) 36 U/L 5-34 Serum or plasma alanine aminotransferase measurement (enzymatic activity/volume) 24 U/L 0-55 Serum or plasma protein [...] plasma calcium measurement (mass/volume) 9.0 mg/dL 8.5-10.1 Complete blood count (CBC) with automated white blood cell (WBC) differential - 07/17/18 10:52 Blood leukocytes automated count (number/volume) 2.8 10*3/uL 4.3-11.0 Blood erythrocytes automated count (number/volume) 4.46 10*6/uL 4.35-5.85 Venous blood hemoglobin measurement (mass/volume) 13.4 g/dL 11.5-16.0 Blood hematocrit (volume fraction) 40 % 35-52 Automated erythrocyte mean corpuscular volume 90 [foz_us] 80-99 Automated erythrocyte mean corpuscular hemoglobin (mass per erythrocyte) 30 pg 25-34 Automated erythrocyte mean corpuscular hemoglobin concentration measurement (mass/volume) 34 g/dL 32-36 Automated erythrocyte distribution width ratio 12.9 % 10.0- 14.5 Automated blood platelet count (count/volume) 157 10*3/uL 130-400 Automated blood platelet mean volume measurement 9.4 [foz_us] 7.4-10.4 Automated blood neutrophils/100 leukocytes 20 % 42-75 Automated blood lymphocytes/100 leukocytes 58 % 12-44 Blood monocytes/100 leukocytes 15 % 0-12 Automated blood eosinophils/100 leukocytes 6 % 0-10 Automated blood basophils/100 leukocytes 1 % 0-10 Blood neutrophils automated count (number/volume) 0.6 10*3 1.8-7.8 Blood lymphocytes automated count (number/volume) 1.6 10*3 1.0-4.0 Blood monocytes automated count (number/volume) 0.4 10*3 0.0- 1.0 Automated eosinophil count 0.2 10*3/uL 0.0-0.3 Automated blood basophil count (count/volume) 0.0 10*3/uL 0.0-0.1 Comprehensive metabolic panel - 07/17/18 10:52 Serum or plasma sodium measurement (moles/volume) 137 mmol/L 135-145 Serum or plasma potassium measurement (moles/volume) 4.2 mmol/L 3.6-5.0 Serum or plasma chloride measurement (moles/volume) 103 mmol/L 98-107 Carbon dioxide 18 mmol/L 21-32 Serum or plasma anion gap determination (moles/volume) 16 mmol/L 5-14 Serum or plasma urea nitrogen measurement (mass/volume) 15 mg/dL 7-18 Serum or plasma creatinine measurement (mass/volume) 0.83 mg/dL 0.60-1.30 Serum or plasma urea nitrogen/creatinine mass ratio 18 NRG Serum or plasma creatinine measurement with calculation of estimated glomerular filtration rate > NRG Serum or plasma glucose measurement (mass/volume) 142 mg/dL 70-105 Serum or plasma calcium measurement (mass/volume) 8.6 mg/dL 8.5-10.1 Serum or plasma total bilirubin measurement (mass/volume) 0.3 mg/dL 0.1-1.0 Serum or plasma alkaline phosphatase measurement (enzymatic activity/volume) 132 U/L 40-136 Serum or plasma aspartate aminotransferase measurement (enzymatic activity/volume) 32 U/L 5-34 Serum or plasma alanine aminotransferase measurement (enzymatic activity/volume) 13 U/L 0-55 Serum or plasma protein measurement (mass/volume) 8.1 g/dL 6.4-8.2 Serum or plasma albumin measurement (mass/volume) 3.7 g/dL 3.2-4.5 CALCIUM CORRECTED 8.8 mg/dL 8.5-10.1 Magnesium - 07/17/18 10:52 Magnesium 2.7 mg/dL 1.8-2.4 DILANTIN (PHENYTOIN) - 07/17/18 10:52 DILANTIN PHEN 8.7 % 10.0-20.0 Complete urinalysis with reflex to culture - 07/17/18 11:52 Urine color determination YELLOW NRG Urine clarity determination CLEAR NRG Urine pH measurement by test strip 7 5-9 Specific gravity of urine by test strip 1.015 1.016-1.022 Urine protein assay by test strip, semi-quantitative 2+ NEGATIVE Urine glucose detection by automated test strip NEGATIVE NEGATIVE Erythrocytes detection in urine sediment by light microscopy 1+ NEGATIVE Urine ketones detection by automated test strip NEGATIVE NEGATIVE Urine nitrite detection by test strip NEGATIVE NEGATIVE Urine total bilirubin detection by test strip NEGATIVE NEGATIVE Urine urobilinogen measurement by automated test strip (mass/volume) NORMAL NORMAL Urine leukocyte esterase detection by dipstick 1+ NEGATIVE Automated urine sediment erythrocyte count by microscopy (number/high power field) NONE NRG Automated urine sediment leukocyte count by microscopy (number/high power field) [HPF] NRG Bacteria detection in urine sediment by light microscopy TRACE NRG Squamous epithelial cells detection in urine sediment by light microscopy RARE NRG Crystals detection in urine sediment by light microscopy NONE NRG Casts detection in urine sediment by light microscopy NONE NRG Mucus detection in urine sediment by light microscopy NEGATIVE NRG Complete urinalysis with reflex to culture YES NRG Bacterial urine culture - 07/17/18 11:52 Bacterial urine culture NG NRG Complete blood count (CBC) with automated white blood cell (WBC) differential - 12/30/18 22:06 Blood leukocytes automated count (number/volume) 2.1 10*3/uL 4.3-11.0 Blood erythrocytes automated count (number/volume) 3.83 10*6/uL 4.35-5.85 Venous blood hemoglobin measurement (mass/volume) 11.7 g/dL 11.5-16.0 Blood hematocrit (volume fraction) 34 % 35-52 Automated erythrocyte mean corpuscular volume 89 [foz_us] 80-99 Automated erythrocyte mean corpuscular hemoglobin (mass per erythrocyte) 31 pg 25-34 Automated erythrocyte mean corpuscular hemoglobin concentration measurement (mass/volume) 34 g/dL 32-36 Automated erythrocyte distribution width ratio 12.6 % 10.0- 14.5 Automated blood platelet count (count/volume) 133 10*3/uL 130-400 Automated blood platelet mean volume measurement 8.8 [foz_us] 7.4-10.4 Automated blood neutrophils/100 leukocytes 15 % 42-75 Automated blood lymphocytes/100 leukocytes 63 % 12-44 Blood monocytes/100 leukocytes 12 % 0-12 Automated blood eosinophils/100 leukocytes 10 % 0-10 Automated blood basophils/100 leukocytes 1 % 0-10 Blood neutrophils automated count (number/volume) 0.3 10*3 1.8-7.8 Blood lymphocytes automated count (number/volume) 1.3 10*3 1.0-4.0 Blood monocytes automated count (number/volume) 0.3 10*3 0.0- 1.0 Automated eosinophil count 0.2 10*3/uL 0.0-0.3 Automated blood basophil count (count/volume) 0.0 10*3/uL 0.0-0.1 Encounters ACCT No. Visit Date/Time Discharge Status Pt. Type Provider Facility Loc./Unit Complaint [id number] 11/13/2018 10:03:00 11/13/2018 23:59:59 [facility] [id number] 07/17/2018 10:49:00 07/17/2018 14:33:00 DIS Emergency JOANA WATKINS MD [facility] ER FALL [id number] 04/14/2018 09:45:00 04/16/2018 11:50:00 DIS Outpatient CATIE ARMSTRONG MD [facility] 4TH POST OP N/VOMITING [id number] 04/12/2018 09:41:00 04/13/2018 08:30:00 DIS Outpatient CATIE ARMSTRONG MD [facility] GALLSTONES [id number] 04/10/2018 10:45:00 04/10/2018 23:59:59 CLS Preadmit CATIE ARMSTRONG MD [facility] ENDO SCREENING [id number] 04/10/2018 05:47:00 04/10/2018 13:36:00 DIS Outpatient CATIE ARMSTRONG MD [facility] PREOP GALLSTONES [id number] 04/06/2018 06:11:00 04/06/2018 23:59:59 CLS Outpatient CATIE ARMSTRONG MD [facility] PREOP COLONOSCOPY [id number] 02/08/2018 00:09:00 02/08/2018 23:59:59 CLS Preadmit ANTONIA TALLEY [facility] ONC [id number] 11/09/2017 09:53:00 02/07/2018 00:01:00 DIS Outpatient ANTONIA TALLEY [facility] ONC [id number] 06/17/2017 14:39:00 08/08/2017 13:59:00 DIS Outpatient JAMIE CASAREZ APRN [facility] REHAB VERTIGO; WEAKNESS [id number] 03/29/2017 14:31:00 05/03/2017 11:39:00 DIS Outpatient MICHAEL LYNNE MD [facility] REHAB VERTIGO;WEAKNESS [id number] 04/02/2017 22:19:00 04/05/2017 13:05:00 DIS Inpatient MICHAEL LYNNE MD [facility] 4TH SEIZURE DISORDER; HEAD/FACIAL CONTUSIONS [id number] 03/04/2017 08:23:00 03/04/2017 23:59:59 CLS Outpatient MICHAEL LYNNE MD [facility] RAD GALLSTONES [id number] 11/04/2016 09:24:00 02/02/2017 00:01:00 DIS Outpatient ANTONIA TALLEY [facility] ONC [id number] 08/11/2016 14:27:00 08/11/2016 23:59:59 CLS Outpatient JAMIE CASAREZ APRN [facility] RAD LOW BACK/BUTTOCKS PAIN [id number] 04/22/2016 09:00:00 04/22/2016 12:05:00 DIS Outpatient MICHAEL LYNNE MD [facility] REHAB GAIT INSTABILITY;RA [id number] 03/11/2016 11:07:00 03/12/2016 17:00:00 DIS Outpatient MICHAEL LYNNE MD [facility] REHAB GAIT INSTABILITY;RA [id number] 10/30/2015 14:20:00 10/30/2015 23:59:59 CLS Outpatient CAROLE [employer] [facility] ONC [id number] 05/01/2015 09:25:00 07/30/2015 00:01:00 DIS Outpatient ANTONIA TALLEY [facility] ONC [id number] 06/04/2015 09:53:00 06/04/2015 23:59:59 CLS Outpatient JUSTINE BULLOCK APRN [facility] LAB DIARRHEA [id number] 06/03/2015 10:37:00 06/03/2015 14:59:00 DIS Emergency JUSTINE BULLOCK APRN [facility] ER DIARRHEA [id number] 05/01/2015 10:05:00 05/01/2015 23:59:59 CLS Outpatient BRIANNA PANDEY MD [facility] LAB [id number] 09/20/2014 12:42:00 09/20/2014 23:59:59 CLS Outpatient [employer] [facility] ONC [id number] 03/21/2014 13:00:00 06/19/2014 00:01:00 DIS Outpatient ANTONIA TALLEY [facility] ONC [id number] 12/11/2013 14:25:00 12/11/2013 23:59:59 CLS Outpatient [employer] [facility] ONC [id number] 09/10/2013 10:22:00 12/09/2013 00:01:00 DIS Outpatient ANTONIA TALLEY [facility] ONC [id number] 12/04/2013 07:26:00 12/04/2013 23:59:59 CLS Outpatient ANTONIA TALLEY [facility] RAD SFLT SYNDROME [id number] 11/29/2013 10:40:00 11/29/2013 23:59:59 CLS Outpatient ANDREI MOMIN MD [facility] RAD SCREENING [id number] 05/02/2013 13:07:00 07/31/2013 00:01:00 DIS Outpatient ANTONIA TALLEY [facility] ONC [id number] 04/30/2013 14:22:00 04/30/2013 23:59:59 CLS Outpatient [employer] [facility] ONC [id number] 01/15/2013 12:46:00 04/15/2013 00:01:00 DIS Outpatient ANTONIA TALLEY [facility] ONC [id number] 11/28/2012 09:00:00 12/18/2012 00:01:00 DIS Outpatient JEANE NAGEL APRN [facility] REHAB S/P BRAIN SURGERY [id number] 10/26/2012 11:19:00 11/26/2012 00:01:00 DIS Outpatient ANTONIA TALLEY [facility] ONC [id number] 12/30/2018 22:13:00 Document Registration [id number] 12/30/2018 04:59:08 Document Registration [id number] 12/29/2018 04:59:09 Document Registration [id number] 12/28/2018 04:59:11 Document Registration [id number] 12/27/2018 04:59:11 Document Registration [id number] 12/26/2018 04:59:12 Document Registration [id number] 12/25/2018 04:59:14 Document Registration [id number] 12/24/2018 04:59:16 Document Registration [id number] 12/23/2018 04:59:18 Document Registration [id number] 12/22/2018 04:59:19 Document Registration [id number] 12/21/2018 04:59:21 Document Registration [id number] 12/20/2018 04:59:23 Document Registration [id number] 12/19/2018 04:59:25 Document Registration [id number] 12/18/2018 04:59:26 Document Registration [id number] 12/17/2018 04:59:28 Document Registration [id number] 12/16/2018 04:59:30 Document Registration [id number] 12/15/2018 04:59:31 Document Registration [id number] 12/14/2018 04:59:34 Document Registration [id number] 12/13/2018 04:59:35 Document Registration [id number] 12/12/2018 04:59:36 Document Registration [id number] 12/11/2018 04:59:38 Document Registration [id number] 12/10/2018 04:59:39 Document Registration [id number] 12/09/2018 04:59:39 Document Registration [id number] 12/08/2018 04:59:39 Document Registration [id number] 12/07/2018 04:59:39 Document Registration [id number] 12/06/2018 04:59:24 Document Registration [id number] 12/05/2018 04:59:24 Document Registration [id number] 12/04/2018 04:59:23 Document Registration [id number] 12/03/2018 04:59:25 Document Registration [id number] 12/02/2018 04:59:24 Document Registration [id number] 12/01/2018 04:59:24 Document Registration [id number] 11/30/2018 04:59:24 Document Registration [id number] 11/29/2018 04:59:24 Document Registration [id number] 11/28/2018 04:59:24 Document Registration [id number] 11/27/2018 04:59:24 Document Registration [id number] 11/26/2018 04:59:26 Document Registration [id number] 11/25/2018 04:59:27 Document Registration [id number] 11/24/2018 04:59:28 Document Registration [id number] 11/23/2018 04:59:29 Document Registration [id number] 11/22/2018 04:59:31 Document Registration [id number] 11/21/2018 04:59:32 Document Registration [id number] 11/20/2018 04:59:33 Document Registration [id number] 11/19/2018 04:59:35 Document Registration [id number] 11/18/2018 04:59:36 Document Registration [id number] 11/17/2018 04:59:38 Document Registration [id number] 11/16/2018 04:59:39 Document Registration [id number] 11/15/2018 04:59:40 Document Registration [id number] 11/14/2018 04:59:37 Document Registration [id number] 11/13/2018 04:59:37 Document Registration [id number] 11/12/2018 04:59:37 Document Registration [id number] 11/11/2018 04:59:38 Document Registration [id number] 11/10/2018 04:59:37 Document Registration [id number] 11/09/2018 04:59:37 Document Registration [id number] 11/08/2018 04:59:37 Document Registration [id number] 11/07/2018 04:59:36 Document Registration [id number] 11/06/2018 04:59:36 Document Registration [id number] 11/05/2018 04:59:37 Document Registration [id number] 11/04/2018 04:59:38 Document Registration [id number] 11/03/2018 04:59:38 Document Registration [id number] 11/02/2018 04:59:36 Document Registration [id number] 11/01/2018 04:59:32 Document Registration [id number] 10/31/2018 04:59:32 Document Registration [id number] 10/30/2018 04:59:32 Document Registration [id number] 10/29/2018 04:59:32 Document Registration [id number] 10/27/2018 04:59:38 Document Registration [id number] 10/26/2018 04:59:38 Document Registration [id number] 10/25/2018 04:59:37 Document Registration [id number] 10/24/2018 04:59:38 Document Registration [id number] 10/23/2018 04:59:38 Document Registration [id number] 10/22/2018 04:59:38 Document Registration [id number] 10/21/2018 04:59:39 Document Registration [id number] 10/20/2018 04:59:39 Document Registration [id number] 10/19/2018 04:59:39 Document Registration [id number] 10/18/2018 04:59:39 Document Registration [id number] 10/17/2018 04:59:42 Document Registration [id number] 10/16/2018 04:59:40 Document Registration [id number] 10/15/2018 04:59:38 Document Registration [id number] 10/14/2018 04:59:39 Document Registration [id number] 10/13/2018 04:59:40 Document Registration [id number] 10/13/2018 04:59:39 Document Registration [id number] 10/12/2018 04:59:39 Document Registration [id number] 10/11/2018 04:59:39 Document Registration [id number] 10/10/2018 04:59:39 Document Registration [id number] 10/09/2018 04:59:39 Document Registration [id number] 10/08/2018 04:59:40 Document Registration [id number] 10/07/2018 04:59:40 Document Registration [id number] 10/06/2018 04:59:40 Document Registration [id number] 10/05/2018 04:59:40 Document Registration [id number] 10/04/2018 04:59:30 Document Registration [id number] 10/03/2018 04:59:31 Document Registration [id number] 10/02/2018 04:59:30 Document Registration [id number] 10/01/2018 04:59:31 Document Registration [id number] 09/30/2018 04:59:31 Document Registration [id number] 09/29/2018 04:59:32 Document Registration [id number] 09/27/2018 04:59:32 Document Registration [id number] 09/26/2018 04:59:32 Document Registration [id number] 09/25/2018 04:59:32 Document Registration [id number] 09/24/2018 04:59:34 Document Registration [id number] 09/23/2018 04:59:34 Document Registration [id number] 09/22/2018 04:59:35 Document Registration [id number] 09/21/2018 04:59:35 Document Registration [id number] 09/21/2018 04:59:34 Document Registration [id number] 09/20/2018 04:59:35 Document Registration [id number] 09/19/2018 04:59:35 Document Registration [id number] 09/18/2018 04:59:35 Document Registration [id number] 09/17/2018 04:59:36 Document Registration [id number] 09/16/2018 04:59:36 Document Registration [id number] 09/15/2018 04:59:37 Document Registration [id number] 09/14/2018 04:59:37 Document Registration [id number] 09/13/2018 04:59:36 Document Registration [id number] 09/12/2018 04:59:37 Document Registration [id number] 09/10/2018 04:59:37 Document Registration [id number] 09/09/2018 04:59:38 Document Registration [id number] 09/08/2018 04:59:39 Document Registration [id number] 09/07/2018 04:59:40 Document Registration [id number] 09/06/2018 04:59:28 Document Registration [id number] 09/05/2018 04:59:29 Document Registration [id number] 09/04/2018 04:59:29 Document Registration [id number] 09/03/2018 04:59:30 Document Registration [id number] 09/02/2018 04:59:32 Document Registration [id number] 09/01/2018 04:59:35 Document Registration [id number] 08/31/2018 04:59:32 Document Registration [id number] 08/30/2018 04:59:32 Document Registration [id number] 08/29/2018 04:59:34 Document Registration [id number] 08/28/2018 04:59:34 Document Registration [id number] 08/27/2018 04:59:36 Document Registration [id number] 08/26/2018 04:59:36 Document Registration [id number] 08/25/2018 04:59:37 Document Registration [id number] 08/24/2018 04:59:38 Document Registration [id number] 08/23/2018 04:59:38 Document Registration [id number] 08/22/2018 04:59:39 Document Registration [id number] 08/21/2018 04:59:39 Document Registration [id number] 08/20/2018 04:59:40 Document Registration [id number] 08/19/2018 04:59:41 Document Registration [id number] 08/18/2018 04:59:42 Document Registration [id number] 08/17/2018 04:59:43 Document Registration [id number] 08/16/2018 04:59:43 Document Registration [id number] 08/15/2018 04:59:44 Document Registration [id number] 08/14/2018 04:59:45 Document Registration [id number] 08/13/2018 04:59:46 Document Registration [id number] 08/12/2018 04:59:47 Document Registration [id number] 08/11/2018 04:59:47 Document Registration [id number] 08/10/2018 04:59:48 Document Registration [id number] 08/09/2018 04:59:49 Document Registration [id number] 08/08/2018 04:59:50 Document Registration [id number] 08/07/2018 04:59:50 Document Registration [id number] 08/06/2018 04:59:52 Document Registration [id number] 08/06/2018 04:59:51 Document Registration [id number] 08/05/2018 04:59:52 Document Registration [id number] 08/04/2018 04:59:53 Document Registration [id number] 08/03/2018 04:59:54 Document Registration [id number] 08/02/2018 04:59:54 Document Registration [id number] 08/01/2018 04:59:55 Document Registration [id number] 07/31/2018 04:59:56 Document Registration [id number] 07/30/2018 04:59:57 Document Registration [id number] 07/29/2018 04:59:58 Document Registration [id number] 07/28/2018 04:59:59 Document Registration [id number] 07/27/2018 04:59:59 Document Registration [id number] 07/26/2018 05:00:00 Document Registration [id number] 07/25/2018 04:59:59 Document Registration [id number] 07/24/2018 04:59:58 Document Registration [id number] 2018 04:59:58 Document Registration [id number] 07/21/2018 04:59:59 Document Registration [id number] 07/20/2018 04:59:58 Document Registration [id number] 07/19/2018 04:59:58 Document Registration [id number] 07/18/2018 04:59:58 Document Registration [id number] 07/17/2018 04:59:58 Document Registration [id number] 07/16/2018 04:59:57 Document Registration [id number] 07/15/2018 04:59:58 Document Registration [id number] 07/14/2018 04:59:57 Document Registration [id number] 07/13/2018 04:59:56 Document Registration [id number] 07/12/2018 05:00:03 Document Registration [id number] 07/11/2018 05:00:03 Document Registration [id number] 07/10/2018 05:00:03 Document Registration [id number] 07/09/2018 05:00:02 Document Registration [id number] 07/08/2018 05:00:03 Document Registration [id number] 07/07/2018 05:00:03 Document Registration [id number] 07/06/2018 05:00:03 Document Registration [id number] 07/05/2018 05:00:02 Document Registration [id number] 07/04/2018 05:00:02 Document Registration [id number] 07/03/2018 05:00:01 Document Registration [id number] 07/02/2018 05:00:01 Document Registration [id number] 07/01/2018 05:00:00 Document Registration [id number] 06/30/2018 05:00:00 Document Registration [id number] 06/29/2018 05:00:00 Document Registration [id number] 06/28/2018 05:00:00 Document Registration [id number] 06/27/2018 04:59:59 Document Registration [id number] 06/26/2018 04:59:59 Document Registration [id number] 06/25/2018 04:59:58 Document Registration [id number] 06/24/2018 04:59:59 Document Registration [id number] 06/23/2018 04:59:59 Document Registration [id number] 06/22/2018 04:59:59 Document Registration [id number] 06/21/2018 04:59:58 Document Registration [id number] 06/20/2018 04:59:57 Document Registration [id number] 06/19/2018 04:59:58 Document Registration [id number] 06/18/2018 04:59:57 Document Registration [id number] 06/17/2018 04:59:56 Document Registration [id number] 06/16/2018 04:59:57 Document Registration [id number] 06/15/2018 04:59:56 Document Registration [id number] 06/14/2018 04:59:56 Document Registration [id number] 06/13/2018 04:59:56 Document Registration [id number] 06/12/2018 04:59:56 Document Registration [id number] 06/11/2018 04:59:56 Document Registration [id number] 06/10/2018 04:59:55 Document Registration [id number] 06/09/2018 04:59:55 Document Registration [id number] 06/08/2018 04:59:55 Document Registration [id number] 06/07/2018 04:59:54 Document Registration [id number] 06/06/2018 04:59:54 Document Registration [id number] 06/05/2018 04:59:54 Document Registration [id number] 06/04/2018 04:59:54 Document Registration [id number] 06/03/2018 04:59:53 Document Registration [id number] 06/02/2018 04:59:53 Document Registration [id number] 06/01/2018 04:59:54 Document Registration [id number] 06/01/2018 04:59:53 Document Registration [id number] 05/31/2018 04:59:53 Document Registration [id number] 05/30/2018 04:59:53 Document Registration [id number] 05/29/2018 04:59:52 Document Registration [id number] 05/28/2018 04:59:53 Document Registration [id number] 05/27/2018 04:59:53 Document Registration [id number] 05/26/2018 04:59:52 Document Registration [id number] 05/25/2018 04:59:53 Document Registration [id number] 05/24/2018 04:59:52 Document Registration [id number] 05/23/2018 04:59:51 Document Registration [id number] 05/22/2018 04:59:52 Document Registration [id number] 05/21/2018 04:59:51 Document Registration [id number] 05/20/2018 04:59:51 Document Registration [id number] 05/18/2018 04:59:50 Document Registration [id number] 05/17/2018 04:59:45 Document Registration [id number] 05/16/2018 04:59:45 Document Registration [id number] 05/15/2018 04:59:45 Document Registration [id number] 05/14/2018 04:59:45 Document Registration [id number] 05/13/2018 04:59:46 Document Registration [id number] 05/12/2018 04:59:46 Document Registration [id number] 05/11/2018 04:59:46 Document Registration [id number] 05/10/2018 04:59:47 Document Registration [id number] 05/09/2018 04:59:47 Document Registration [id number] 05/08/2018 04:59:47 Document Registration [id number] 05/07/2018 04:59:48 Document Registration [id number] 05/06/2018 04:59:48 Document Registration [id number] 05/05/2018 04:59:47 Document Registration [id number] 05/04/2018 04:59:48 Document Registration [id number] 05/03/2018 04:59:48 Document Registration [id number] 05/02/2018 04:59:49 Document Registration [id number] 05/01/2018 04:59:48 Document Registration [id number] 04/30/2018 04:59:49 Document Registration [id number] 04/29/2018 04:59:49 Document Registration [id number] 04/28/2018 04:59:50 Document Registration [id number] 04/27/2018 04:59:49 Document Registration [id number] 04/26/2018 04:59:50 Document Registration [id number] 04/25/2018 04:59:49 Document Registration [id number] 04/24/2018 04:59:50 Document Registration [id number] 04/23/2018 04:59:54 Document Registration [id number] 04/22/2018 04:59:50 Document Registration [id number] 04/20/2018 04:59:50 Document Registration [id number] 04/19/2018 04:59:50 Document Registration [id number] 04/18/2018 04:59:51 Document Registration [id number] 04/17/2018 04:59:50 Document Registration [id number] 04/16/2018 04:59:50 Document Registration [id number] 04/15/2018 04:59:51 Document Registration [id number] 04/14/2018 04:59:50 Document Registration [id number] 04/13/2018 04:59:50 Document Registration [id number] 04/12/2018 04:59:47 Document Registration [id number] 04/11/2018 04:59:47 Document Registration [id number] 04/10/2018 04:59:48 Document Registration [id number] 04/09/2018 04:59:49 Document Registration [id number] 04/08/2018 04:59:48 Document Registration [id number] 04/07/2018 04:59:48 Document Registration [id number] 04/06/2018 04:59:47 Document Registration [id number] 04/05/2018 04:59:47 Document Registration [id number] 04/04/2018 04:59:47 Document Registration [id number] 04/04/2018 04:59:46 Document Registration [id number] 04/03/2018 04:59:47 Document Registration [id number] 04/02/2018 04:59:48 Document Registration [id number] 04/01/2018 04:59:47 Document Registration [id number] 03/30/2018 04:59:48 Document Registration [id number] 03/29/2018 04:59:48 Document Registration [id number] 03/28/2018 04:59:48 Document Registration [id number] 03/26/2018 04:59:48 Document Registration [id number] 03/25/2018 04:59:48 Document Registration [id number] 03/24/2018 04:59:49 Document Registration [id number] 03/23/2018 04:59:48 Document Registration [id number] 03/22/2018 04:59:48 Document Registration [id number] 03/21/2018 04:59:48 Document Registration [id number] 03/20/2018 04:59:48 Document Registration [id number] 03/19/2018 04:59:49 Document Registration [id number] 03/18/2018 04:59:49 Document Registration [id number] 03/17/2018 04:59:49 Document Registration [id number] 03/16/2018 04:59:49 Document Registration [id number] 03/15/2018 04:59:48 Document Registration [id number] 03/14/2018 04:59:49 Document Registration [id number] 03/13/2018 04:59:48 Document Registration [id number] 03/12/2018 04:59:49 Document Registration [id number] 03/11/2018 04:59:49 Document Registration [id number] 03/10/2018 04:59:48 Document Registration [id number] 03/09/2018 04:59:50 Document Registration [id number] 03/08/2018 04:59:46 Document Registration [id number] 03/07/2018 04:59:46 Document Registration [id number] 03/06/2018 04:59:46 Document Registration [id number] 03/05/2018 04:59:51 Document Registration [id number] 03/04/2018 04:59:46 Document Registration [id number] 03/03/2018 04:59:46 Document Registration [id number] 03/02/2018 04:59:46 Document Registration [id number] 03/01/2018 04:59:46 Document Registration [id number] 02/28/2018 04:59:46 Document Registration [id number] 02/26/2018 04:59:47 Document Registration [id number] 02/25/2018 04:59:47 Document Registration [id number] 02/24/2018 04:59:47 Document Registration [id number] 02/23/2018 04:59:48 Document Registration [id number] 02/22/2018 04:59:47 Document Registration [id number] 02/20/2018 04:59:47 Document Registration [id number] 02/19/2018 04:59:47 Document Registration [id number] 02/18/2018 04:59:49 Document Registration [id number] 02/16/2018 04:59:48 Document Registration [id number] 02/15/2018 04:59:48 Document Registration [id number] 02/14/2018 04:59:49 Document Registration [id number] 02/13/2018 04:59:50 Document Registration [id number] 02/12/2018 04:59:49 Document Registration [id number] 02/11/2018 04:59:49 Document Registration [id number] 02/10/2018 04:59:49 Document Registration [id number] 02/09/2018 04:59:50 Document Registration [id number] 02/08/2018 04:59:34 Document Registration [id number] 02/07/2018 04:59:35 Document Registration [id number] 02/06/2018 04:59:34 Document Registration [id number] 02/05/2018 04:59:34 Document Registration [id number] 02/04/2018 04:59:35 Document Registration [id number] 02/03/2018 04:59:34 Document Registration [id number] 01/23/2018 04:59:45 Document Registration [id number] 01/22/2018 04:59:46 Document Registration [id number] 01/21/2018 04:59:47 Document Registration [id number] 01/20/2018 04:59:44 Document Registration [id number] 01/19/2018 04:59:49 Document Registration [id number] 01/17/2018 04:59:27 Document Registration [id number] 01/16/2018 04:59:28 Document Registration [id number] 01/15/2018 04:59:30 Document Registration [id number] 01/14/2018 04:59:30 Document Registration [id number] 01/13/2018 04:59:27 Document Registration [id number] 01/12/2018 04:59:32 Document Registration [id number] 01/11/2018 04:59:33 Document Registration [id number] 01/10/2018 04:59:34 Document Registration [id number] 01/09/2018 04:59:36 Document Registration [id number] 01/08/2018 04:59:36 Document Registration [id number] 01/07/2018 04:59:37 Document Registration [id number] 01/06/2018 04:59:38 Document Registration [id number] 01/05/2018 04:59:39 Document Registration [id number] 01/04/2018 04:59:40 Document Registration [id number] 01/03/2018 04:59:41 Document Registration [id number] 01/02/2018 04:59:42 Document Registration [id number] 01/01/2018 04:59:39 Document Registration [id number] 12/31/2017 04:59:44 Document Registration [id number] 12/30/2017 04:59:45 Document Registration [id number] 12/29/2017 04:59:46 Document Registration [id number] 12/28/2017 04:59:47 Document Registration [id number] 12/27/2017 04:59:48 Document Registration [id number] 12/26/2017 04:59:44 Document Registration [id number] 12/25/2017 04:59:48 Document Registration [id number] 12/24/2017 04:59:46 Document Registration [id number] 12/23/2017 04:59:50 Document Registration [id number] 12/22/2017 04:59:49 Document Registration [id number] 12/21/2017 04:59:34 Document Registration [id number] 12/20/2017 04:59:37 Document Registration [id number] 12/19/2017 04:59:38 Document Registration [id number] 12/18/2017 04:59:38 Document Registration [id number] 12/17/2017 04:59:35 Document Registration [id number] 12/16/2017 04:59:39 Document Registration [id number] 12/15/2017 04:59:39 Document Registration [id number] 12/14/2017 04:59:40 Document Registration [id number] 12/13/2017 04:59:39 Document Registration [id number] 12/12/2017 04:59:40 Document Registration [id number] 12/11/2017 04:59:40 Document Registration [id number] 12/10/2017 04:59:40 Document Registration [id number] 12/09/2017 04:59:41 Document Registration [id number] 12/08/2017 04:59:41 Document Registration [id number] 12/07/2017 04:59:42 Document Registration [id number] 12/06/2017 04:59:42 Document Registration [id number] 12/04/2017 04:59:42 Document Registration [id number] 12/03/2017 04:59:43 Document Registration [id number] 12/02/2017 04:59:43 Document Registration [id number] 12/01/2017 04:59:43 Document Registration [id number] 11/30/2017 04:59:43 Document Registration [id number] 11/29/2017 04:59:44 Document Registration [id number] 11/28/2017 04:59:44 Document Registration [id number] 11/27/2017 04:59:44 Document Registration [id number] 11/26/2017 04:59:44 Document Registration [id number] 11/25/2017 04:59:44 Document Registration [id number] 11/24/2017 04:59:45 Document Registration [id number] 11/23/2017 04:59:45 Document Registration [id number] 11/22/2017 04:59:46 Document Registration [id number] 11/21/2017 04:59:42 Document Registration [id number] 11/20/2017 04:59:46 Document Registration [id number] 11/19/2017 04:59:47 Document Registration [id number] 11/18/2017 04:59:46 Document Registration [id number] 11/17/2017 04:59:48 Document Registration [id number] 11/17/2017 04:59:47 Document Registration [id number] 11/16/2017 04:59:47 Document Registration [id number] 11/15/2017 04:59:48 Document Registration [id number] 11/14/2017 04:59:47 Document Registration [id number] 11/13/2017 04:59:48 Document Registration [id number] 11/12/2017 04:59:49 Document Registration [id number] 11/11/2017 04:59:48 Document Registration [id number] 11/10/2017 04:59:49 Document Registration [id number] 11/09/2017 04:59:43 Document Registration [id number] 11/08/2017 04:59:43 Document Registration [id number] 11/07/2017 04:59:43 Document Registration [id number] 11/06/2017 04:59:44 Document Registration [id number] 11/05/2017 04:59:44 Document Registration [id number] 11/04/2017 04:59:44 Document Registration [id number] 11/03/2017 04:59:45 Document Registration [id number] 11/02/2017 04:59:45 Document Registration [id number] 11/01/2017 04:59:46 Document Registration [id number] 11/01/2017 04:59:45 Document Registration [id number] 10/31/2017 04:59:45 Document Registration [id number] 10/30/2017 04:59:46 Document Registration [id number] 10/29/2017 04:59:46 Document Registration [id number] 10/28/2017 04:59:47 Document Registration [id number] 10/27/2017 04:59:47 Document Registration [id number] 10/26/2017 04:59:47 Document Registration [id number] 10/25/2017 04:59:47 Document Registration [id number] 10/24/2017 04:59:44 Document Registration [id number] 10/23/2017 04:59:48 Document Registration [id number] 10/22/2017 04:59:45 Document Registration [id number] 10/21/2017 04:59:50 Document Registration [id number] 10/20/2017 04:59:50 Document Registration [id number] 10/19/2017 04:59:43 Document Registration [id number] 10/18/2017 04:59:40 Document Registration [id number] 10/17/2017 04:59:43 Document Registration [id number] 10/16/2017 04:59:45 Document Registration [id number] 10/15/2017 04:59:45 Document Registration [id number] 10/14/2017 04:59:46 Document Registration [id number] 10/13/2017 04:59:42 Document Registration [id number] 10/12/2017 04:59:45 Document Registration [id number] 10/11/2017 04:59:46 Document Registration [id number] 10/10/2017 04:59:46 Document Registration [id number] 10/09/2017 04:59:46 Document Registration [id number] 10/08/2017 04:59:47 Document Registration [id number] 10/07/2017 04:59:47 Document Registration [id number] 10/06/2017 04:59:44 Document Registration [id number] 10/05/2017 04:59:47 Document Registration [id number] 10/04/2017 04:59:48 Document Registration [id number] 10/03/2017 04:59:48 Document Registration [id number] 10/02/2017 04:59:48 Document Registration [id number] 10/01/2017 04:59:45 Document Registration [id number] 09/30/2017 04:59:45 Document Registration [id number] 09/29/2017 04:59:49 Document Registration [id number] 09/28/2017 04:59:44 Document Registration [id number] 09/27/2017 04:59:44 Document Registration [id number] 09/26/2017 04:59:45 Document Registration [id number] 09/25/2017 04:59:45 Document Registration [id number] 09/24/2017 04:59:46 Document Registration [id number] 09/23/2017 04:59:45 Document Registration [id number] 09/22/2017 04:59:45 Document Registration [id number] 09/21/2017 04:59:46 Document Registration [id number] 09/20/2017 04:59:46 Document Registration [id number] 09/19/2017 04:59:46 Document Registration [id number] 09/18/2017 04:59:46 Document Registration [id number] 09/17/2017 04:59:47 Document Registration [id number] 09/16/2017 04:59:44 Document Registration [id number] 09/15/2017 04:59:47 Document Registration [id number] 09/14/2017 04:59:48 Document Registration [id number] 09/13/2017 04:59:45 Document Registration [id number] 09/12/2017 04:59:49 Document Registration [id number] 09/11/2017 04:59:49 Document Registration [id number] 09/10/2017 04:59:49 Document Registration [id number] 09/09/2017 04:59:46 Document Registration [id number] 09/08/2017 04:59:46 Document Registration [id number] 09/07/2017 04:59:47 Document Registration [id number] 09/06/2017 04:59:43 Document Registration [id number] 09/05/2017 04:59:46 Document Registration [id number] 09/04/2017 04:59:47 Document Registration [id number] 09/03/2017 04:59:48 Document Registration [id number] 09/02/2017 04:59:47 Document Registration [id number] 09/01/2017 04:59:44 Document Registration [id number] 08/31/2017 04:59:44 Document Registration [id number] 08/30/2017 04:59:49 Document Registration [id number] 08/30/2017 04:59:48 Document Registration [id number] 08/29/2017 04:59:45 Document Registration [id number] 08/28/2017 04:59:45 Document Registration [id number] 08/27/2017 04:59:49 Document Registration [id number] 08/26/2017 04:59:50 Document Registration [id number] 08/25/2017 04:59:46 Document Registration [id number] 08/24/2017 04:59:49 Document Registration [id number] 08/24/2017 04:59:48 Document Registration [id number] 08/23/2017 04:59:45 Document Registration [id number] 08/22/2017 04:59:46 Document Registration [id number] 08/21/2017 04:59:50 Document Registration [id number] 08/20/2017 04:59:47 Document Registration [id number] 08/19/2017 04:59:47 Document Registration [id number] 08/18/2017 04:59:51 Document Registration [id number] 08/17/2017 04:59:47 Document Registration [id number] 08/16/2017 04:59:48 Document Registration [id number] 08/15/2017 04:59:51 Document Registration [id number] 08/14/2017 04:59:48 Document Registration [id number] 08/13/2017 04:59:48 Document Registration [id number] 08/12/2017 04:59:52 Document Registration [id number] 08/11/2017 04:59:49 Document Registration [id number] 08/10/2017 04:59:54 Document Registration [id number] 08/09/2017 04:59:56 Document Registration [id number] 08/08/2017 04:59:58 Document Registration [id number] 08/07/2017 04:59:59 Document Registration [id number] 08/06/2017 05:00:01 Document Registration [id number] 08/05/2017 04:59:59 Document Registration [id number] 08/04/2017 05:00:00 Document Registration [id number] 08/03/2017 05:00:06 Document Registration [id number] 08/02/2017 05:00:04 Document Registration [id number] 08/01/2017 05:00:04 Document Registration [id number] 07/31/2017 05:00:07 Document Registration [id number] 07/30/2017 05:00:09 Document Registration [id number] 07/29/2017 05:00:04 Document Registration [id number] 07/28/2017 05:00:08 Document Registration [id number] 07/27/2017 05:00:04 Document Registration [id number] 07/26/2017 05:00:08 Document Registration [id number] 07/25/2017 05:00:07 Document Registration [id number] 07/24/2017 05:00:04 Document Registration [id number] 2017 05:00:08 Document Registration [id number] 07/22/2017 05:00:07 Document Registration [id number] 07/21/2017 05:00:04 Document Registration [id number] 07/20/2017 05:00:04 Document Registration [id number] 07/19/2017 05:00:08 Document Registration [id number] 07/18/2017 05:00:04 Document Registration [id number] 07/17/2017 05:00:04 Document Registration [id number] 07/16/2017 05:00:07 Document Registration [id number] 07/15/2017 05:00:04 Document Registration [id number] 07/14/2017 05:00:04 Document Registration [id number] 07/13/2017 05:00:08 Document Registration [id number] 07/12/2017 05:00:06 Document Registration [id number] 07/11/2017 05:00:04 Document Registration [id number] 07/10/2017 05:00:07 Document Registration [id number] 07/09/2017 05:00:04 Document Registration [id number] 07/08/2017 05:00:08 Document Registration [id number] 07/07/2017 05:00:07 Document Registration [id number] 07/06/2017 05:00:04 Document Registration [id number] 07/05/2017 05:00:05 Document Registration [id number] 07/04/2017 05:00:07 Document Registration [id number] 07/03/2017 05:00:03 Document Registration [id number] 07/02/2017 05:00:04 Document Registration [id number] 07/01/2017 05:00:07 Document Registration [id number] 06/30/2017 05:00:04 Document Registration [id number] 06/29/2017 05:00:04 Document Registration [id number] 06/28/2017 05:00:07 Document Registration [id number] 06/27/2017 05:00:04 Document Registration [id number] 06/26/2017 05:00:04 Document Registration [id number] 06/25/2017 05:00:08 Document Registration [id number] 06/24/2017 05:00:05 Document Registration [id number] 06/23/2017 05:00:04 Document Registration [id number] 06/22/2017 05:00:08 Document Registration [id number] 06/21/2017 05:00:04 Document Registration [id number] 06/20/2017 05:00:03 Document Registration [id number] 06/19/2017 05:00:08 Document Registration [id number] 06/18/2017 05:00:08 Document Registration [id number] 06/17/2017 05:00:04 Document Registration [id number] 06/16/2017 05:00:09 Document Registration [id number] 06/15/2017 05:00:04 Document Registration [id number] 06/14/2017 05:00:04 Document Registration [id number] 06/13/2017 05:00:08 Document Registration [id number] 06/12/2017 05:00:04 Document Registration [id number] 06/11/2017 05:00:04 Document Registration [id number] 06/10/2017 05:00:07 Document Registration [id number] 06/09/2017 05:00:03 Document Registration [id number] 06/08/2017 05:00:05 Document Registration [id number] 06/07/2017 05:00:07 Document Registration [id number] 06/06/2017 05:00:04 Document Registration [id number] 06/05/2017 05:00:05 Document Registration [id number] 06/04/2017 05:00:08 Document Registration [id number] 06/03/2017 05:00:07 Document Registration [id number] 06/02/2017 05:00:09 Document Registration [id number] 06/01/2017 05:00:07 Document Registration [id number] 05/31/2017 05:00:04 Document Registration [id number] 05/30/2017 05:00:04 Document Registration [id number] 05/29/2017 05:00:08 Document Registration [id number] 05/28/2017 05:00:04 Document Registration [id number] 05/27/2017 05:00:08 Document Registration [id number] 05/26/2017 05:00:08 Document Registration [id number] 05/25/2017 05:00:03 Document Registration [id number] 05/24/2017 05:00:04 Document Registration [id number] 05/23/2017 05:00:08 Document Registration [id number] 05/22/2017 05:00:03 Document Registration [id number] 05/21/2017 05:00:05 Document Registration [id number] 05/20/2017 05:00:08 Document Registration [id number] 05/19/2017 05:00:04 Document Registration [id number] 05/18/2017 05:00:03 Document Registration [id number] 05/17/2017 05:00:08 Document Registration [id number] 05/16/2017 05:00:03 Document Registration [id number] 05/15/2017 05:00:06 Document Registration [id number] 05/14/2017 05:00:07 Document Registration [id number] 05/13/2017 05:00:08 Document Registration [id number] 05/12/2017 05:00:04 Document Registration [id number] 05/11/2017 05:00:07 Document Registration [id number] 05/10/2017 05:00:04 Document Registration [id number] 05/09/2017 05:00:03 Document Registration [id number] 05/08/2017 05:00:07 Document Registration [id number] 05/07/2017 05:00:09 Document Registration [id number] 05/06/2017 05:00:04 Document Registration [id number] 05/05/2017 05:00:07 Document Registration [id number] 05/04/2017 05:00:04 Document Registration [id number] 05/03/2017 05:00:07 Document Registration [id number] 05/02/2017 05:00:07 Document Registration [id number] 05/01/2017 05:00:04 Document Registration [id number] 04/30/2017 05:00:04 Document Registration [id number] 04/29/2017 05:00:07 Document Registration [id number] 04/28/2017 05:00:04 Document Registration [id number] 04/27/2017 05:00:04 Document Registration [id number] 04/26/2017 05:00:07 Document Registration [id number] 04/25/2017 05:00:08 Document Registration [id number] 04/24/2017 05:00:04 Document Registration [id number] 04/23/2017 05:00:07 Document Registration [id number] 04/22/2017 05:00:04 Document Registration [id number] 04/21/2017 05:00:08 Document Registration [id number] 04/20/2017 05:00:08 Document Registration [id number] 04/19/2017 05:00:03 Document Registration [id number] 04/18/2017 05:00:07 Document Registration [id number] 04/17/2017 05:00:07 Document Registration [id number] 04/16/2017 05:00:03 Document Registration [id number] 04/15/2017 05:00:04 Document Registration [id number] 04/14/2017 05:00:08 Document Registration [id number] 04/13/2017 05:00:08 Document Registration [id number] 04/12/2017 05:00:04 Document Registration [id number] 04/11/2017 05:00:07 Document Registration [id number] 04/10/2017 05:00:08 Document Registration [id number] 04/09/2017 05:00:04 Document Registration [id number] 04/08/2017 05:00:08 Document Registration [id number] 04/07/2017 05:00:05 Document Registration [id number] 03/17/2016 10:01:00 Document Registration [id number] 09/15/2011 11:51:00 Document Registration [id number] 02/01/2011 10:38:00 Document Registration [id number] 01/18/2011 11:10:00 Document Registration [id number] 01/05/2011 09:29:00 Document Registration [id number] 01/04/2011 12:32:00 Document Registration [id number] 12/31/2010 10:33:00 Document Registration [id number] 02/12/2010 00:00:00 Document Registration
--- NOTE | 2018-12-30 23:31 | NUR ---
HOME MEDICATIONS RETURNED TO PT UPON ADMIT TO MED/SURG UNIT.
--- OUTSIDE RECORDS SUMMARY | 2018-12-30 23:35 | XMS REPORT | Clinical Summary ---
Author Author [facility] Organization [facility] Address Unknown Phone Unavailable Care Team Providers Care Horse Racing Analyst Name Role Phone Ángel Swenson MD Unavailable Unavailable Janet Gonzalez MD Unavailable Krissy Bennett RN Unavailable Maximiliano Gonzalez MD Unavailable Araceli Ferreira APRN-PARTY DEMONSTRATOR Unavailable Alexis Cesar MD Unavailable Evette Pang MD Unavailable Magali Zepeda MD PCP Source Comments Some departments are not documenting in the electronic medical record. If you d o not see the information that you expected, contact Release of Information in 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
--- OUTSIDE RECORDS SUMMARY | 2018-12-30 23:35 | XMS REPORT | Clinical Summary ---
Author Author [facility] Organization [facility] Address Unknown Phone Unavailable Care Team Providers Care Pipeline Maintenance Supervisor Name Role Phone PCP Unavailable Allergies Not [...]
[2018-12-30 23:39] VITALS: BP 112/64
--- NOTE | 2018-12-30 23:39 | NUR ---
MELANY STATON admitted to room 412-1, with an admitting diagnosis of hip fx, on 12/30/18 from ed via cart, accompanied by staff.MELANY STATON introduced to surroundings, call light, bed controls, phone, TV, temperature control, lights, meal times, smoking policy, visitor policy, side rail policy, bathrooms and showers. Patient Rights given to patient in the handbook. MELANY STATON verbalizes understanding that [facility] is not responsible for the loss or damage to any personal effects or valuables that are kept in the patients posession during their hospitalization.
[2018-12-30 23:40] LABS: INR 0.8 (0.8-1.4); PROTHROMBIN TIME PATIENT 11.7 SEC (12.2-14.7)
[2018-12-31] VITALS (14 sets, daily range): BP systolic 109–156; BP diastolic 56–96
[2018-12-31] MEDS ORDERED: LACTATED RINGERS 1,000 ML IV ONE (00:07)
[2018-12-31 00:35] LABS: BILIRUBIN,URINE NEGATIVE (NEGATIVE); CLARITY,URINE CLEAR; COLOR,URINE YELLOW; GLUCOSE, URINE (UA) NEGATIVE (NEGATIVE); KETONES,URINE NEGATIVE (NEGATIVE); LEUKOCYTE ESTERASE ,URINE 3+ (NEGATIVE); NITRITE,URINE NEGATIVE (NEGATIVE); PH,URINE 8 (5-9); PROTEIN,URINE NEGATIVE (NEGATIVE); UROBILINOGEN,URINE NORMAL (NORMAL)
--- OUTSIDE RECORDS SUMMARY | 2018-12-31 00:45 | XMS REPORT | Continuity of Care Document ---
Author Organization Unknown Address Unknown Allergies Active Description Code Type Severity Reaction Onset Reported/Identified Relationship to Patient Clinical Status Yes No Known Drug Allergies [id number] Drug Allergy Unknown N/A 04/10/2018 Medications Medication [...] 288.00 NEUTROPENIA, UNSPECIFIED 12/18/2012 SHONA JEANE A PUPIL PERSONNEL WORKER Ot 780.4 DIZZINESS AND GIDDINESS 12/18/2012 NAGELJEANE Ruma PUPIL PERSONNEL WORKER Ot 780.79 OTH MALAISE FATIGUE 12/18/2012 JEANE NAGEL PUPIL PERSONNEL WORKER Ot 783.21 LOSS OF WEIGHT 12/18/2012 JEANE NAGEL PUPIL PERSONNEL WORKER Ot V57.1 PHYSICAL THERAPY NEC 12/18/2012 JEANE NAGEL PUPIL PERSONNEL WORKER Ot V57.21 ENCOUNTER FOR OCCUPATIONAL THERAPY 12/18/2012 SHONA JEANE A PUPIL PERSONNEL WORKER Ot V58.49 OTHER SPECIFIED AFTERCARE FOLLOWING SURG [...] V58.69 OTH MED,LT,CURRENT USE 11/29/2014 CAROLE ROSE BODY RECALL INSTRUCTOR Ot 288.00 11/29/2014 CAROLE ROSE BODY RECALL INSTRUCTOR Ot 288.50 11/29/2014 CAROLE ROSE BODY RECALL INSTRUCTOR Ot 564.00 11/29/2014 CAROLE ROSE BODY RECALL INSTRUCTOR Ot 714.0 11/29/2014 CAROLE ROSE BODY RECALL INSTRUCTOR Ot 714.1 11/29/2014 CAROLE ROSE BODY RECALL INSTRUCTOR Ot 733.90 11/29/2014 CAROLE ROSE BODY RECALL INSTRUCTOR Ot V58.65 11/29/2014 CAROLE ROSE BODY RECALL INSTRUCTOR Ot V58.69 04/03/2015 ANTONIA TALLEY N Ot [...] BOBAN N Ot V58.69 06/03/2015 JUSTINE BULLOCK PUPIL PERSONNEL WORKER Ot K52.9 NONINFECTIVE GASTROENTERITIS AND COLITIS 06/03/2015 JUSTINE BULLOCK PUPIL PERSONNEL WORKER Ot 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 INTEST, PART UNSP, W/O PERF 06/03/2015 JUSTINE BULLOCK PUPIL PERSONNEL WORKER Ot K80.20 CALCULUS OF GALLBLADDER W/O CHOLECYSTITI [...] URINATION 07/30/2015 ANTONIA TALLEY Ot Z79.899 OTHER CARBURIZING FURNACE OPERATOR (CURRENT) DRUG THERAPY 10/31/2015 CAROLE ROSEP Ot [...] Ot 733.00 OSTEOPOROSIS NOS 03/17/2016 CAROLE ROSE BODY RECALL INSTRUCTOR Ot 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 03/17/2016 CAROLE ROSE BODY RECALL INSTRUCTOR Ot 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 03/17/2016 CAROLE ROSE BODY RECALL INSTRUCTOR Ot 288.50 LEUKOCYTOPENIA, UNSPECIFIED 03/17/2016 CAROLE ROSE BODY RECALL INSTRUCTOR Ot 345.90 EPILEPSY UNSPEC W/O MENTION INTRACTABLE 03/17/2016 CAROLE ROSE BODY RECALL INSTRUCTOR Ot 714.0 RHEUMATOID ARTHRITIS 03/17/2016 CAROLE ROSE BODY RECALL INSTRUCTOR Ot 780.4 DIZZINESS AND GIDDINESS 03/17/2016 CAROLE ROSE BODY RECALL INSTRUCTOR Ot V58.69 OTH MED,LT,CURRENT USE 03/17/2016 ANTONIA TALLEY Ot 574.10 CHOLELITH W CHOLECYS NEC 03/17/2016 ANTONIA TALLEY N Ot 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 03/17/2016 LILIANE CUEVAS, ANDREI Mendez Ot V76.12 OTH SCREEN MAMMO-MALIGN NEOPLASM OF DANNY 03/17/2016 CAROLE ROSE BODY RECALL INSTRUCTOR Ot 288.00 NEUTROPENIA, UNSPECIFIED 03/17/2016 CAROLE ROSE BODY RECALL INSTRUCTOR Ot 288.50 LEUKOCYTOPENIA, UNSPECIFIED 03/17/2016 CAROLE ROSE BODY RECALL INSTRUCTOR Ot 574.10 CHOLELITH W CHOLECYS NEC 03/17/2016 CAROLE ROSE BODY RECALL INSTRUCTOR Ot 714.0 RHEUMATOID ARTHRITIS 03/17/2016 CAROLE ROSE BODY RECALL INSTRUCTOR Ot 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 03/17/2016 CAROLE ROSE BODY RECALL INSTRUCTOR Ot V58.69 OTH MED,LT,CURRENT USE 03/17/2016 CAROLE ROSE BODY RECALL INSTRUCTOR Ot 288.00 NEUTROPENIA, UNSPECIFIED 03/17/2016 CAROLE ROSE BODY RECALL INSTRUCTOR Ot 288.50 LEUKOCYTOPENIA, UNSPECIFIED 03/17/2016 CAROLE ROSE BODY RECALL INSTRUCTOR Ot 564.00 UNSPEC CONSTIPATION 03/17/2016 CAROLE ROSE BODY RECALL INSTRUCTOR Ot 714.0 RHEUMATOID ARTHRITIS 03/17/2016 CAROLE ROSE BODY RECALL INSTRUCTOR Ot 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 03/17/2016 CAROLE ROSE BODY RECALL INSTRUCTOR Ot 733.90 BONE CARTILAGE DIS NOS 03/17/2016 CAROLE ROSE BODY RECALL INSTRUCTOR Ot V58.65 LONG-TERM(CURRENT)USE OF STEROIDS 03/17/2016 CAROLE ROSE BODY RECALL INSTRUCTOR Ot V58.69 OTH MED,LT,CURRENT USE 03/17/2016 DANNIE CUEVAS, BRIANNA Rajput Ot G40.909 EPILEPSY, UNSP, NOT INTRACTABLE, WITHOUT 03/17/2016 JUSTINE BULLOCK PUPIL PERSONNEL WORKER Ot R19.7 DIARRHEA, UNSPECIFIED 03/17/2016 ANTONIA TALLEY [...] 03/17/2016 ANTONIA TALLEY N Ot Z79.899 OTHER CUSTODIAL (CURRENT) DRUG THERAPY 03/17/2016 CAROLE ROSEP Ot [...] OF GAIT AND MO 09/09/2016 JAMIE CASAREZ PUPIL PERSONNEL WORKER Ot M54.5 LOW BACK PAIN 09/10/2016 JAMIE CASAREZ PUPIL PERSONNEL WORKER Ot M54.5 LOW BACK PAIN 10/31/2016 CAROLE ROSE BODY RECALL INSTRUCTOR Ot D70.9 NEUTROPENIA, UNSPECIFIED 10/31/2016 CAROLE ROSE BODY RECALL INSTRUCTOR Ot D70.9 NEUTROPENIA, UNSPECIFIED 10/31/2016 CAROLE ROSE BODY RECALL INSTRUCTOR Ot D70.9 NEUTROPENIA, UNSPECIFIED 11/05/2016 ANTONIA TALLEY [...] 11/05/2016 ANTONIA TALLEY N Ot Z79.899 OTHER CUSTODIAL (CURRENT) DRUG THERAPY 12/10/2016 ANTONIA TALLEY N Ot D35.2 BENIGN NEOPLASM OF PITUITARY GLAND 12/10/2016 MAYANKANTONIA N Ot D64.9 ANEMIA, UNSPECIFIED 12/10/2016 MAYANKBREANABARAK N Ot D72.819 DECREASED WHITE BLOOD CELL COUNT, UNSPEC 12/10/2016 MAYANKANTONIA N Ot 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 12/10/2016 MAYANKANTONIA N Ot M06.9 RHEUMATOID ARTHRITIS, UNSPECIFIED 12/10/2016 MAYANK BREANABARAK N Ot R56.9 UNSPECIFIED CONVULSIONS 12/10/2016 MAYANKANTONIA N Ot Z79.899 OTHER CUSTODIAL (CURRENT) DRUG THERAPY 12/21/2016 MAYANKANTONIA N Ot D35.2 BENIGN NEOPLASM OF PITUITARY GLAND 12/21/2016 ANTONIA TALLEY N Ot D64.9 ANEMIA, UNSPECIFIED 12/21/2016 MAYANK BREANABARAK N Ot D72.819 DECREASED WHITE BLOOD CELL COUNT, UNSPEC 12/21/2016 MAYANKANTONIA N Ot 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 12/21/2016 BREANA TALLEYAN N Ot M06.9 RHEUMATOID ARTHRITIS, UNSPECIFIED 12/21/2016 MAYANK, BOBAN N Ot R56.9 UNSPECIFIED CONVULSIONS 12/21/2016 MAYANK, BOBAN N Ot Z79.899 OTHER CUSTODIAL (CURRENT) DRUG THERAPY 01/21/2017 MAYANKBREANAAN N Ot D35.2 BENIGN NEOPLASM OF PITUITARY GLAND 01/21/2017 MAYANK, BOBAN N Ot D64.9 ANEMIA, UNSPECIFIED 01/21/2017 MAYANK, BOBAN N Ot D72.819 DECREASED WHITE BLOOD CELL COUNT, UNSPEC 01/21/2017 AMYANK, BOBAN N Ot 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 01/21/2017 MAYANK, BOBAN N Ot M06.9 RHEUMATOID ARTHRITIS, UNSPECIFIED 01/21/2017 MAYANK, BOBAN N Ot R56.9 UNSPECIFIED CONVULSIONS 01/21/2017 MAYANK, BOBAN N Ot Z79.899 OTHER CARBURIZING FURNACE OPERATOR (CURRENT) DRUG THERAPY 02/02/2017 MAYANK, BOBAN N [...] 02/02/2017 MAYANK, BOBAN N Ot Z79.899 OTHER CARBURIZING FURNACE OPERATOR (CURRENT) DRUG THERAPY 02/08/2017 MAYANK, BOBAN N [...] 02/08/2017 MAYANK, BOBAN N Ot Z79.899 OTHER CARBURIZING FURNACE OPERATOR (CURRENT) DRUG THERAPY 03/04/2017 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 03/04/2017 Ot 714.0 RHEUMATOID ARTHRITIS 03/04/2017 Ot 733.00 OSTEOPOROSIS NOS 03/04/2017 CAROLE ROSE BODY RECALL INSTRUCTOR Ot 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 03/04/2017 CAROLE ROSE BODY RECALL INSTRUCTOR Ot 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 03/04/2017 CAROLE ROSE BODY RECALL INSTRUCTOR Ot 288.50 LEUKOCYTOPENIA, UNSPECIFIED 03/04/2017 CAROLE ROSE BODY RECALL INSTRUCTOR Ot 345.90 EPILEPSY UNSPEC W/O MENTION INTRACTABLE [...] Ot 288.00 NEUTROPENIA, UNSPECIFIED 03/04/2017 CAROLE ROSE BODY RECALL INSTRUCTOR Ot 288.50 LEUKOCYTOPENIA, UNSPECIFIED 03/04/2017 CAROLE ROSEP Ot 574.10 CHOLELITH W CHOLECYS NEC 03/04/2017 CAROLE ROSE BODY RECALL INSTRUCTOR Ot 714.0 RHEUMATOID ARTHRITIS 03/04/2017 CAROLE ROSE BODY RECALL INSTRUCTOR Ot 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 03/04/2017 CAROLE ROSEP Ot V58.69 OTH MED,LT,CURRENT USE 03/04/2017 CAROLE ROSEP Ot 288.00 NEUTROPENIA, UNSPECIFIED 03/04/2017 CAROLE ROSE BODY RECALL INSTRUCTOR Ot 288.50 LEUKOCYTOPENIA, UNSPECIFIED 03/04/2017 CAROLE ROSE BODY RECALL INSTRUCTOR Ot 564.00 UNSPEC CONSTIPATION 03/04/2017 ROSE, HILAH S BODY RECALL INSTRUCTOR Ot 714.0 RHEUMATOID ARTHRITIS 03/04/2017 CAROLE ROSE BODY RECALL INSTRUCTOR Ot 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 03/04/2017 CAROLE ROSE BODY RECALL INSTRUCTOR Ot 733.90 BONE CARTILAGE DIS NOS 03/04/2017 CAROLE ROSE BODY RECALL INSTRUCTOR Ot V58.65 LONG-TERM(CURRENT)USE OF STEROIDS 03/04/2017 CAROLE ROSE BODY RECALL INSTRUCTOR Ot V58.69 OTH MED,LT,CURRENT USE 03/04/2017 BRIANNA PANDEY MD Ot G40.909 EPILEPSY, UNSP, NOT INTRACTABLE, WITHOUT 03/04/2017 JUSTINE BULLOCK PUPIL PERSONNEL WORKER Ot R19.7 DIARRHEA, UNSPECIFIED 03/04/2017 CAROLE ROSE BODY RECALL INSTRUCTOR Ot D70.9 NEUTROPENIA, UNSPECIFIED 03/04/2017 JAMIE CASAREZ PUPIL PERSONNEL WORKER Ot M54.5 LOW BACK PAIN 03/04/2017 ANTONIA TALLEY Ot D35.2 BENIGN NEOPLASM OF PITUITARY GLAND 03/04/2017 ANTONIA TALLEY Ot D64.9 ANEMIA, UNSPECIFIED 03/04/2017 MAYANKANTONIA Ot D72.819 DECREASED WHITE BLOOD CELL COUNT, UNSPEC 03/04/2017 ANTONIA TALLEY N Ot 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 03/04/2017 ANTONIA TALLEY Ot M06.9 RHEUMATOID ARTHRITIS, UNSPECIFIED 03/04/2017 MAYANKANTONIA N Ot R56.9 UNSPECIFIED CONVULSIONS 03/04/2017 MAYANK ANTONIA Eugene Ot Z79.899 OTHER CARBURIZING FURNACE OPERATOR (CURRENT) DRUG THERAPY 03/15/2017 MICHAEL LYNNE MD Ot R42 DIZZINESS AND GIDDINESS 03/15/2017 MICHAEL LYNNE MD Ot R53.1 WEAKNESS 03/25/2017 MICHAEL LYNNE MD Ot K80.20 CALCULUS OF GALLBLADDER W/O CHOLECYSTITI 04/01/2017 MICHAEL LYNNE MD Ot K80.20 CALCULUS OF GALLBLADDER W/O CHOLECYSTITI 04/05/2017 MICHAEL LYNNE MD Ot E78.00 PURE HYPERCHOLESTEROLEMIA, UNSPECIFIED 04/05/2017 MICHAEL LNYNE MD Ot G40.909 EPILEPSY, UNSP, NOT INTRACTABLE, [...] LYNNE MD Ot Y92.012 BATHROOM OF SINGLE-FAMILY ([facility]) [facility] 04/05/2017 MICHAEL LYNNE MD Ot Y99.8 OTHER EXTERNAL CAUSE STATUS 04/05/2017 MICHAEL LYNNE MD Ot Z79.890 HORMONE REPLACEMENT THERAPY 04/05/2017 MICHAEL LYNNE MD Ot Z79.899 OTHER CUSTODIAL (CURRENT) DRUG THERAPY 04/05/2017 MICHAEL LYNNE MD [...] LYNNE MD Ot Y92.012 BATHROOM OF SINGLE-FAMILY ([facility]) [facility] 04/12/2017 MICHAEL LYNNE MD Ot Y99.8 OTHER EXTERNAL CAUSE STATUS 04/12/2017 MICHAEL LYNNE MD Ot Z79.890 HORMONE REPLACEMENT THERAPY 04/12/2017 MICHAEL LYNNE MD Ot Z79.899 OTHER CUSTODIAL (CURRENT) DRUG THERAPY 04/12/2017 MICHAEL LYNNE MD Ot Z86.79 PERSONAL HISTORY OF OTHER DISEASES OF TH 05/03/2017 MICHEAL LYNNE MD Ot R42 DIZZINESS AND GIDDINESS 05/03/2017 MICHAEL LYNNE MD Ot R53.1 WEAKNESS 05/20/2017 JAMIE CASAREZ PUPIL PERSONNEL WORKER Ot R42 DIZZINESS AND GIDDINESS 05/20/2017 JAMIE CASAREZ PUPIL PERSONNEL WORKER Ot R53.1 WEAKNESS 07/11/2017 JAMIE CASAREZ PUPIL PERSONNEL WORKER Ot R42 DIZZINESS AND GIDDINESS 07/11/2017 JAMIE CASAREZ PUPIL PERSONNEL WORKER Ot R53.1 WEAKNESS 07/12/2017 JAMIE CASAREZ PUPIL PERSONNEL WORKER Ot R42 DIZZINESS AND GIDDINESS 07/12/2017 JAMIE CASAREZ PUPIL PERSONNEL WORKER Ot R53.1 WEAKNESS 08/04/2017 JAMIE CASAREZ PUPIL PERSONNEL WORKER Ot R42 DIZZINESS AND GIDDINESS 08/04/2017 JAMIE CASAREZ PUPIL PERSONNEL WORKER Ot R53.1 WEAKNESS 08/08/2017 JAMIE CASAREZ PUPIL PERSONNEL WORKER Ot R42 DIZZINESS AND GIDDINESS 08/08/2017 JAMIE CASAREZ PUPIL PERSONNEL WORKER Ot R53.1 WEAKNESS 12/02/2017 ANTONIA TALLEY N Ot D35.2 BENIGN NEOPLASM OF PITUITARY GLAND 12/02/2017 ANTONIA TALLEY N Ot D64.9 ANEMIA, UNSPECIFIED 12/02/2017 ANTONIA TALLEY N Ot D72.819 DECREASED WHITE BLOOD CELL COUNT, UNSPEC 12/02/2017 ANTONIA TALLEY N Ot 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 12/02/2017 ANTONIA TLALEY N Ot M06.9 RHEUMATOID ARTHRITIS, UNSPECIFIED 12/02/2017 ANTONIA TALLEY N Ot R56.9 UNSPECIFIED CONVULSIONS 12/02/2017 ANTONIA TALLEY N Ot Z79.899 OTHER CARBURIZING FURNACE OPERATOR (CURRENT) DRUG THERAPY 12/06/2017 ANTONIA TALLEY N [...] 12/06/2017 MAYANK BOBAN N Ot Z79.899 OTHER CARBURIZING FURNACE OPERATOR (CURRENT) DRUG THERAPY 02/07/2018 MAYANKANTONIA BANDA N [...] 02/07/2018 MAYANK, BOBBARAK N Ot Z79.899 OTHER CARBURIZING FURNACE OPERATOR (CURRENT) DRUG THERAPY 04/07/2018 PATTI CUEVAS, CATIE [...] 04/10/2018 MAYANK, BOBAN N Ot Z79.899 OTHER CUSTODIAL (CURRENT) DRUG THERAPY 04/10/2018 PATTI CUEVAS, CATIE Hurtado Ot Z01.818 ENCOUNTER FOR OTHER PREPROCEDURAL EXAMIN 04/12/2018 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 04/12/2018 CAROLE ROSE BODY RECALL INSTRUCTOR Ot 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 04/12/2018 CAROLE ROSE BODY RECALL INSTRUCTOR Ot 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 04/12/2018 CAROLE ROSE BODY RECALL INSTRUCTOR Ot 288.50 LEUKOCYTOPENIA, UNSPECIFIED 04/12/2018 CAROLE ROSE BODY RECALL INSTRUCTOR Ot 345.90 EPILEPSY UNSPEC W/O MENTION INTRACTABLE 04/12/2018 CAROLE ROSE BODY RECALL INSTRUCTOR Ot 714.0 RHEUMATOID ARTHRITIS 04/12/2018 CAROLE ROSE BODY RECALL INSTRUCTOR Ot 780.4 DIZZINESS AND GIDDINESS 04/12/2018 CAROLE ROSE BODY RECALL INSTRUCTOR Ot V58.69 OTH MED,LT,CURRENT USE 04/12/2018 ANTONIA TALLEY Ot 574.10 CHOLELITH W CHOLECYS NEC 04/12/2018 ANTONIA TALLEY Ot 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 04/12/2018 LILIANE CUEVAS, ANDREI Mendez Ot V76.12 OTH SCREEN MAMMO-MALIGN NEOPLASM OF DANNY 04/12/2018 CAROLE ROSE BODY RECALL INSTRUCTOR Ot 288.00 NEUTROPENIA, UNSPECIFIED 04/12/2018 CAROLE ROSE BODY RECALL INSTRUCTOR Ot 288.50 LEUKOCYTOPENIA, UNSPECIFIED 04/12/2018 CAROLE ROSE BODY RECALL INSTRUCTOR Ot 574.10 CHOLELITH W CHOLECYS NEC 04/12/2018 CAROLE ROSE BODY RECALL INSTRUCTOR Ot 714.0 RHEUMATOID ARTHRITIS 04/12/2018 CAROLE ROSE BODY RECALL INSTRUCTOR Ot 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 04/12/2018 CAROLE ROSE BODY RECALL INSTRUCTOR Ot V58.69 OTH MED,LT,CURRENT USE 04/12/2018 CAROLE ROSE BODY RECALL INSTRUCTOR Ot 288.00 NEUTROPENIA, UNSPECIFIED 04/12/2018 CAROLE ROSE BODY RECALL INSTRUCTOR Ot 288.50 LEUKOCYTOPENIA, UNSPECIFIED 04/12/2018 CAROLE ROSE BODY RECALL INSTRUCTOR Ot 564.00 UNSPEC CONSTIPATION 04/12/2018 CAROLE ROSE BODY RECALL INSTRUCTOR Ot 714.0 RHEUMATOID ARTHRITIS 04/12/2018 CAROLE ROSE BODY RECALL INSTRUCTOR Ot 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 04/12/2018 CAROLE ROSE BODY RECALL INSTRUCTOR Ot 733.90 BONE CARTILAGE DIS NOS 04/12/2018 CAROLE ROSE BODY RECALL INSTRUCTOR Ot V58.65 LONG-TERM(CURRENT)USE OF STEROIDS 04/12/2018 CAROLE ROSE BODY RECALL INSTRUCTOR Ot V58.69 OTH MED,LT,CURRENT USE 04/12/2018 DANNIE CUEVAS, BRIANNA Rajput Ot G40.909 EPILEPSY, UNSP, NOT INTRACTABLE, WITHOUT 04/12/2018 JUSTINE BULLOCK PUPIL PERSONNEL WORKER Ot R19.7 DIARRHEA, UNSPECIFIED 04/12/2018 CAROLE ROSE BODY RECALL INSTRUCTOR Ot D70.9 NEUTROPENIA, UNSPECIFIED 04/12/2018 JAMIE CASAREZ PUPIL PERSONNEL WORKER Ot M54.5 LOW BACK PAIN 04/12/2018 GUERA [...] CONVULSIONS 04/12/2018 ANTONIA TALLEY Ot Z79.899 OTHER CUSTODIAL (CURRENT) DRUG THERAPY 04/12/2018 PATTI CUEVAS, CATIE [...] 04/13/2018 CATIE ARMSTRONG MD Ot Z79.899 OTHER CUSTODIAL (CURRENT) DRUG THERAPY 04/14/2018 CATIE ARMSTRONG MD [...] 04/14/2018 CATIE ARMSTRONG MD Ot Z79.899 OTHER CARBURIZING FURNACE OPERATOR (CURRENT) DRUG THERAPY 04/16/2018 CATIE ARMSTRONG MD [...] 04/16/2018 CATIE ARMSTRONG MD Ot Z79.899 OTHER CARBURIZING FURNACE OPERATOR (CURRENT) DRUG THERAPY 07/17/2018 JOANA WATKINS MD [...] culture - 04/03/17 01:25 Bacterial urine culture [id number] NRG COLONY COUNT >100,000/ML NRG FTX;REPORTABLE SENSITIIVITY [...] 0.0 10*3/uL 0.0-0.1 Comprehensive metabolic panel - 12/30/18 22:06 Serum or plasma sodium measurement (moles/volume) 137 mmol/L 135-145 Serum or plasma potassium measurement (moles/volume) 3.7 mmol/L 3.6-5.0 Serum or plasma chloride measurement (moles/volume) 103 mmol/L 98-107 Carbon dioxide 21 mmol/L 21-32 Serum or plasma anion gap determination (moles/volume) 13 mmol/L 5-14 Serum or plasma urea nitrogen measurement (mass/volume) 18 mg/dL 7-18 Serum or plasma creatinine measurement (mass/volume) 0.87 mg/dL 0.60-1.30 Serum or plasma urea nitrogen/creatinine mass ratio 21 NRG Serum or plasma creatinine measurement with calculation of estimated glomerular filtration rate > NRG Serum or plasma glucose measurement (mass/volume) 117 mg/dL 70-105 Serum or plasma calcium measurement (mass/volume) 8.3 mg/dL 8.5-10.1 Serum or plasma total bilirubin measurement (mass/volume) 0.2 mg/dL 0.1-1.0 Serum or plasma alkaline phosphatase measurement (enzymatic activity/volume) 120 U/L 40-136 Serum or plasma aspartate aminotransferase measurement (enzymatic activity/volume) 16 U/L 5-34 Serum or plasma alanine aminotransferase measurement (enzymatic activity/volume) 10 U/L 0-55 Serum or plasma protein measurement (mass/volume) 7.0 g/dL 6.4-8.2 Serum or plasma albumin measurement (mass/volume) 3.5 g/dL 3.2-4.5 CALCIUM CORRECTED 8.7 mg/dL 8.5-10.1 Magnesium - 12/30/18 22:06 Magnesium 2.1 mg/dL 1.8-2.4 PT panel in platelet poor plasma by coagulation assay - 12/30/18 22:06 Prothrombin time (PT) in platelet poor plasma by coagulation assay 11.7 s 12.2-14.7 INR in platelet poor plasma or blood by coagulation assay 0.8 0.8-1.4 RED CELLS LEUKO REDUCED AS1 - 12/30/18 23:15 RED CELLS LEUKO REDUCED AS1 READY NRG Blood type T Indirect antibody screen panel - 12/30/18 23:15 WRISTBAND NUMBER [id number] NRG ABO+Rh group OP NRG Blood group antibody screen NEGATIVE NRG Encounters ACCT No. Visit Date/Time Discharge Status Pt. Type Provider Facility Loc./Unit Complaint [id number] 11/13/2018 10:03:00 11/13/2018 23:59:59 [facility] [id number] 07/17/2018 10:49:00 07/17/2018 14:33:00 DIS Emergency JOANA WATKINS MD [facility] ER FALL [id number] 04/14/2018 09:45:00 04/16/2018 11:50:00 DIS Outpatient CATIE ARMSTRONG MD [facility] 4TH POST OP N/VOMITING [id number] 04/12/2018 09:41:00 04/13/2018 08:30:00 DIS Outpatient CATIE ARMSTRONG MD [facility] [place]ALLSTONES [id number] 04/10/2018 10:45:00 04/10/2018 23:59:59 CLS Preadmit CATIE ARMSTRONG MD [facility] ENDO SCREENING [id number] 04/10/2018 05:47:00 04/10/2018 13:36:00 DIS Outpatient CATIE ARMSTRONG MD [facility] PREOP GALLSTONES [id number] 04/06/2018 06:11:00 04/06/2018 23:59:59 CLS Outpatient CATIE ARMSTRONG MD [facility] PREOP COLONOSCOPY [id number] 02/08/2018 00:09:00 02/08/2018 23:59:59 CLS Preadmit ANTONIA TALLEY [facility] ONC [id number] 11/09/2017 09:53:00 02/07/2018 00:01:00 DIS Outpatient ANTONIA TALLEY [facility] ONC [id number] 06/17/2017 14:39:00 08/08/2017 13:59:00 DIS Outpatient JAMIE CASAREZ APRN [facility] REHAB VERTIGO; WEAKNESS [id number] 03/29/2017 14:31:00 05/03/2017 11:39:00 DIS Outpatient MICHAEL LYNNE MD [facility] REHAB VERTIGO;WEAKNESS [id number] 04/02/2017 22:19:00 04/05/2017 13:05:00 DIS Inpatient MICHAEL LYNNE MD [facility] 4TH SEIZURE DISORDER; HEAD/FACIAL CONTUSIONS [id number] 03/04/2017 08:23:00 03/04/2017 23:59:59 CLS Outpatient MICHAEL LYNNE MD [facility] RAD GALLSTONES [id number] 11/04/2016 09:24:00 02/02/2017 00:01:00 DIS Outpatient ANTONIA TALLEY [facility] ONC [id number] 08/11/2016 14:27:00 08/11/2016 23:59:59 CLS Outpatient JAMIE CASAREZ APRN [facility] RAD LOW BACK/BUTTOCKS PAIN [id number] 04/22/2016 09:00:00 04/22/2016 12:05:00 DIS Outpatient MICHAEL LYNNE MD [facility] REHAB GAIT INSTABILITY;RA [id number] 03/11/2016 11:07:00 03/12/2016 17:00:00 DIS Outpatient MICHAEL LYNNE MD [facility] REHAB GAIT INSTABILITY;RA [id number] 10/30/2015 14:20:00 10/30/2015 23:59:59 CLS Outpatient CAROLE ROSE BODY RECALL INSTRUCTOR [facility] ONC [id number] 05/01/2015 09:25:00 07/30/2015 00:01:00 DIS Outpatient ANTONIA TALLEY [facility] ONC [id number] 06/04/2015 09:53:00 06/04/2015 23:59:59 CLS Outpatient JUSTINE BULLOCK APRN [facility] LAB DIARRHEA [id number] 06/03/2015 10:37:00 06/03/2015 14:59:00 DIS Emergency JUSTINE BULLOCK APRN [facility] ER DIARRHEA [id number] 05/01/2015 10:05:00 05/01/2015 23:59:59 CLS Outpatient BRIANNA PANDEY MD [facility] LAB [id number] 09/20/2014 12:42:00 09/20/2014 23:59:59 CLS Outpatient CAROLE ROSE BODY RECALL INSTRUCTOR [facility] ONC [id number] 03/21/2014 13:00:00 06/19/2014 00:01:00 DIS Outpatient ANTONIA TALLEY [facility] ONC [id number] 12/11/2013 14:25:00 12/11/2013 23:59:59 CLS Outpatient CAROLE ROSE BODY RECALL INSTRUCTOR [facility] ONC [id number] 09/10/2013 10:22:00 12/09/2013 00:01:00 DIS Outpatient ANTONIA TALLEY [facility] ONC [id number] 12/04/2013 07:26:00 12/04/2013 23:59:59 CLS Outpatient ANTONIA TALLEY [facility] RAD SFLT SYNDROME [id number] 11/29/2013 10:40:00 11/29/2013 23:59:59 CLS Outpatient ANDREI MOMIN MD [facility] RAD SCREENING [id number] 05/02/2013 13:07:00 07/31/2013 00:01:00 DIS Outpatient MAYANKANTONIA BANDA [facility] ONC [id number] 04/30/2013 14:22:00 04/30/2013 23:59:59 CLS Outpatient CAROLE ROSE BODY RECALL INSTRUCTOR [facility] ONC [id number] 01/15/2013 12:46:00 04/15/2013 00:01:00 DIS Outpatient ANTONIA TALLEY [facility] ONC [id number] 11/28/2012 09:00:00 12/18/2012 00:01:00 DIS Outpatient JEANE NAGEL APRN [facility] REHAB S/P BRAIN SURGERY [id number] 10/26/2012 11:19:00 11/26/2012 00:01:00 DIS Outpatient ANTONIA TALLEY [facility] ONC [id number] 12/30/2018 22:13:00 Document Registration [id number] 12/30/2018 04:59:08 Document Registration [id number] 12/29/2018 04:59:09 Document Registration [id number] 12/28/2018 04:59:11 Document Registration [id number] 12/27/2018 04:59:11 Document Registration [id number] 12/26/2018 04:59:12 Document Registration [id number] 12/25/2018 04:59:14 Document Registration [id number] 12/24/2018 04:59:16 Document Registration [id number] 12/23/2018 04:59:18 Document Registration [id number] 12/22/2018 04:59:19 Document Registration [id number] 12/21/2018 04:59:21 Document Registration [id number] 12/20/2018 04:59:23 Document Registration [id number] 12/19/2018 04:59:25 Document Registration [id number] 12/18/2018 04:59:26 Document Registration [id number] 12/17/2018 04:59:28 Document Registration [id number] 12/16/2018 04:59:30 Document Registration [id number] 12/15/2018 04:59:31 Document Registration [id number] 12/14/2018 04:59:34 Document Registration [id number] 12/13/2018 04:59:35 Document Registration [id number] 12/12/2018 04:59:36 Document Registration [id number] 12/11/2018 04:59:38 Document Registration [id number] 12/10/2018 04:59:39 Document Registration [id number] 12/09/2018 04:59:39 Document Registration [id number] 12/08/2018 04:59:39 Document Registration [id number] 12/07/2018 04:59:39 Document Registration [id number] 12/06/2018 04:59:24 Document Registration [id number] 12/05/2018 04:59:24 Document Registration [id number] 12/04/2018 04:59:23 Document Registration [id number] 12/03/2018 04:59:25 Document Registration [id number] 12/02/2018 04:59:24 Document Registration [id number] 12/01/2018 04:59:24 Document Registration [id number] 11/30/2018 04:59:24 Document Registration [id number] 11/29/2018 04:59:24 Document Registration [id number] 11/28/2018 04:59:24 Document Registration [id number] 11/27/2018 04:59:24 Document Registration [id number] 11/26/2018 04:59:26 Document Registration [id number] 11/25/2018 04:59:27 Document Registration [id number] 11/24/2018 04:59:28 Document Registration [id number] 11/23/2018 04:59:29 Document Registration [id number] 11/22/2018 04:59:31 Document Registration [id number] 11/21/2018 04:59:32 Document Registration [id number] 11/20/2018 04:59:33 Document Registration [id number] 11/19/2018 04:59:35 Document Registration [id number] 11/18/2018 04:59:36 Document Registration [id number] 11/17/2018 04:59:38 Document Registration [id number] 11/16/2018 04:59:39 Document Registration [id number] 11/15/2018 04:59:40 Document Registration [id number] 11/14/2018 04:59:37 Document Registration [id number] 11/13/2018 04:59:37 Document Registration [id number] 11/12/2018 04:59:37 Document Registration [id number] 11/11/2018 04:59:38 Document Registration [id number] 11/10/2018 04:59:37 Document Registration [id number] 11/09/2018 04:59:37 Document Registration [id number] 11/08/2018 04:59:37 Document Registration [id number] 11/07/2018 04:59:36 Document Registration [id number] 11/06/2018 04:59:36 Document Registration [id number] 11/05/2018 04:59:37 Document Registration [id number] 11/04/2018 04:59:38 Document Registration [id number] 11/03/2018 04:59:38 Document Registration [id number] 11/02/2018 04:59:36 Document Registration [id number] 11/01/2018 04:59:32 Document Registration [id number] 10/31/2018 04:59:32 Document Registration [id number] 10/30/2018 04:59:32 Document Registration [id number] 10/29/2018 04:59:32 Document Registration [id number] 10/27/2018 04:59:38 Document Registration [id number] 10/26/2018 04:59:38 Document Registration [id number] 10/25/2018 04:59:37 Document Registration [id number] 10/24/2018 04:59:38 Document Registration [id number] 10/23/2018 04:59:38 Document Registration [id number] 10/22/2018 04:59:38 Document Registration [id number] 10/21/2018 04:59:39 Document Registration [id number] 10/20/2018 04:59:39 Document Registration [id number] 10/19/2018 04:59:39 Document Registration [id number] 10/18/2018 04:59:39 Document Registration [id number] 10/17/2018 04:59:42 Document Registration [id number] 10/16/2018 04:59:40 Document Registration [id number] 10/15/2018 04:59:38 Document Registration [id number] 10/14/2018 04:59:39 Document Registration [id number] 10/13/2018 04:59:40 Document Registration [id number] 10/13/2018 04:59:39 Document Registration [id number] 10/12/2018 04:59:39 Document Registration [id number] 10/11/2018 04:59:39 Document Registration [id number] 10/10/2018 04:59:39 Document Registration [id number] 10/09/2018 04:59:39 Document Registration [id number] 10/08/2018 04:59:40 Document Registration [id number] 10/07/2018 04:59:40 Document Registration [id number] 10/06/2018 04:59:40 Document Registration [id number] 10/05/2018 04:59:40 Document Registration [id number] 10/04/2018 04:59:30 Document Registration [id number] 10/03/2018 04:59:31 Document Registration [id number] 10/02/2018 04:59:30 Document Registration [id number] 10/01/2018 04:59:31 Document Registration [id number] 09/30/2018 04:59:31 Document Registration [id number] 09/29/2018 04:59:32 Document Registration [id number] 09/27/2018 04:59:32 Document Registration [id number] 09/26/2018 04:59:32 Document Registration [id number] 09/25/2018 04:59:32 Document Registration [id number] 09/24/2018 04:59:34 Document Registration [id number] 09/23/2018 04:59:34 Document Registration [id number] 09/22/2018 04:59:35 Document Registration [id number] 09/21/2018 04:59:35 Document Registration [id number] 09/21/2018 04:59:34 Document Registration [id number] 09/20/2018 04:59:35 Document Registration [id number] 09/19/2018 04:59:35 Document Registration [id number] 09/18/2018 04:59:35 Document Registration [id number] 09/17/2018 04:59:36 Document Registration [id number] 09/16/2018 04:59:36 Document Registration [id number] 09/15/2018 04:59:37 Document Registration [id number] 09/14/2018 04:59:37 Document Registration [id number] 09/13/2018 04:59:36 Document Registration [id number] 09/12/2018 04:59:37 Document Registration [id number] 09/10/2018 04:59:37 Document Registration [id number] 09/09/2018 04:59:38 Document Registration [id number] 09/08/2018 04:59:39 Document Registration [id number] 09/07/2018 04:59:40 Document Registration [id number] 09/06/2018 04:59:28 Document Registration [id number] 09/05/2018 04:59:29 Document Registration [id number] 09/04/2018 04:59:29 Document Registration [id number] 09/03/2018 04:59:30 Document Registration [id number] 09/02/2018 04:59:32 Document Registration [id number] 09/01/2018 04:59:35 Document Registration [id number] 08/31/2018 04:59:32 Document Registration [id number] 08/30/2018 04:59:32 Document Registration [id number] 08/29/2018 04:59:34 Document Registration [id number] 08/28/2018 04:59:34 Document Registration [id number] 08/27/2018 04:59:36 Document Registration [id number] 08/26/2018 04:59:36 Document Registration [id number] 08/25/2018 04:59:37 Document Registration [id number] 08/24/2018 04:59:38 Document Registration [id number] 08/23/2018 04:59:38 Document Registration [id number] 08/22/2018 04:59:39 Document Registration [id number] 08/21/2018 04:59:39 Document Registration [id number] 08/20/2018 04:59:40 Document Registration [id number] 08/19/2018 04:59:41 Document Registration [id number] 08/18/2018 04:59:42 Document Registration [id number] 08/17/2018 04:59:43 Document Registration [id number] 08/16/2018 04:59:43 Document Registration [id number] 08/15/2018 04:59:44 Document Registration [id number] 08/14/2018 04:59:45 Document Registration [id number] 08/13/2018 04:59:46 Document Registration [id number] 08/12/2018 04:59:47 Document Registration [id number] 08/11/2018 04:59:47 Document Registration [id number] 08/10/2018 04:59:48 Document Registration [id number] 08/09/2018 04:59:49 Document Registration [id number] 08/08/2018 04:59:50 Document Registration [id number] 08/07/2018 04:59:50 Document Registration [id number] 08/06/2018 04:59:52 Document Registration [id number] 08/06/2018 04:59:51 Document Registration [id number] 08/05/2018 04:59:52 Document Registration [id number] 08/04/2018 04:59:53 Document Registration [id number] 08/03/2018 04:59:54 Document Registration [id number] 08/02/2018 04:59:54 Document Registration [id number] 08/01/2018 04:59:55 Document Registration [id number] 07/31/2018 04:59:56 Document Registration [id number] 07/30/2018 04:59:57 Document Registration [id number] 07/29/2018 04:59:58 Document Registration [id number] 07/28/2018 04:59:59 Document Registration [id number] 07/27/2018 04:59:59 Document Registration [id number] 07/26/2018 05:00:00 Document Registration [id number] 07/25/2018 04:59:59 Document Registration [id number] 07/24/2018 04:59:58 Document Registration [id number] 2018 04:59:58 Document Registration [id number] 07/21/2018 04:59:59 Document Registration [id number] 07/20/2018 04:59:58 Document Registration [id number] 07/19/2018 04:59:58 Document Registration [id number] 07/18/2018 04:59:58 Document Registration [id number] 07/17/2018 04:59:58 Document Registration [id number] 07/16/2018 04:59:57 Document Registration [id number] 07/15/2018 04:59:58 Document Registration [id number] 07/14/2018 04:59:57 Document Registration [id number] 07/13/2018 04:59:56 Document Registration [id number] 07/12/2018 05:00:03 Document Registration [id number] 07/11/2018 05:00:03 Document Registration [id number] 07/10/2018 05:00:03 Document Registration [id number] 07/09/2018 05:00:02 Document Registration [id number] 07/08/2018 05:00:03 Document Registration [id number] 07/07/2018 05:00:03 Document Registration [id number] 07/06/2018 05:00:03 Document Registration [id number] 07/05/2018 05:00:02 Document Registration [id number] 07/04/2018 05:00:02 Document Registration [id number] 07/03/2018 05:00:01 Document Registration [id number] 07/02/2018 05:00:01 Document Registration [id number] 07/01/2018 05:00:00 Document Registration [id number] 06/30/2018 05:00:00 Document Registration [id number] 06/29/2018 05:00:00 Document Registration [id number] 06/28/2018 05:00:00 Document Registration [id number] 06/27/2018 04:59:59 Document Registration [id number] 06/26/2018 04:59:59 Document Registration [id number] 06/25/2018 04:59:58 Document Registration [id number] 06/24/2018 04:59:59 Document Registration [id number] 06/23/2018 04:59:59 Document Registration [id number] 06/22/2018 04:59:59 Document Registration [id number] 06/21/2018 04:59:58 Document Registration [id number] 06/20/2018 04:59:57 Document Registration [id number] 06/19/2018 04:59:58 Document Registration [id number] 06/18/2018 04:59:57 Document Registration [id number] 06/17/2018 04:59:56 Document Registration [id number] 06/16/2018 04:59:57 Document Registration [id number] 06/15/2018 04:59:56 Document Registration [id number] 06/14/2018 04:59:56 Document Registration [id number] 06/13/2018 04:59:56 Document Registration [id number] 06/12/2018 04:59:56 Document Registration [id number] 06/11/2018 04:59:56 Document Registration [id number] 06/10/2018 04:59:55 Document Registration [id number] 06/09/2018 04:59:55 Document Registration [id number] 06/08/2018 04:59:55 Document Registration [id number] 06/07/2018 04:59:54 Document Registration [id number] 06/06/2018 04:59:54 Document Registration [id number] 06/05/2018 04:59:54 Document Registration [id number] 06/04/2018 04:59:54 Document Registration [id number] 06/03/2018 04:59:53 Document Registration [id number] 06/02/2018 04:59:53 Document Registration [id number] 06/01/2018 04:59:54 Document Registration [id number] 06/01/2018 04:59:53 Document Registration [id number] 05/31/2018 04:59:53 Document Registration [id number] 05/30/2018 04:59:53 Document Registration [id number] 05/29/2018 04:59:52 Document Registration [id number] 05/28/2018 04:59:53 Document Registration [id number] 05/27/2018 04:59:53 Document Registration [id number] 05/26/2018 04:59:52 Document Registration [id number] 05/25/2018 04:59:53 Document Registration [id number] 05/24/2018 04:59:52 Document Registration [id number] 05/23/2018 04:59:51 Document Registration [id number] 05/22/2018 04:59:52 Document Registration [id number] 05/21/2018 04:59:51 Document Registration [id number] 05/20/2018 04:59:51 Document Registration [id number] 05/18/2018 04:59:50 Document Registration [id number] 05/17/2018 04:59:45 Document Registration [id number] 05/16/2018 04:59:45 Document Registration [id number] 05/15/2018 04:59:45 Document Registration [id number] 05/14/2018 04:59:45 Document Registration [id number] 05/13/2018 04:59:46 Document Registration [id number] 05/12/2018 04:59:46 Document Registration [id number] 05/11/2018 04:59:46 Document Registration [id number] 05/10/2018 04:59:47 Document Registration [id number] 05/09/2018 04:59:47 Document Registration [id number] 05/08/2018 04:59:47 Document Registration [id number] 05/07/2018 04:59:48 Document Registration [id number] 05/06/2018 04:59:48 Document Registration [id number] 05/05/2018 04:59:47 Document Registration [id number] 05/04/2018 04:59:48 Document Registration [id number] 05/03/2018 04:59:48 Document Registration [id number] 05/02/2018 04:59:49 Document Registration [id number] 05/01/2018 04:59:48 Document Registration [id number] 04/30/2018 04:59:49 Document Registration [id number] 04/29/2018 04:59:49 Document Registration [id number] 04/28/2018 04:59:50 Document Registration [id number] 04/27/2018 04:59:49 Document Registration [id number] 04/26/2018 04:59:50 Document Registration [id number] 04/25/2018 04:59:49 Document Registration [id number] 04/24/2018 04:59:50 Document Registration [id number] 04/23/2018 04:59:54 Document Registration [id number] 04/22/2018 04:59:50 Document Registration [id number] 04/20/2018 04:59:50 Document Registration [id number] 04/19/2018 04:59:50 Document Registration [id number] 04/18/2018 04:59:51 Document Registration [id number] 04/17/2018 04:59:50 Document Registration [id number] 04/16/2018 04:59:50 Document Registration [id number] 04/15/2018 04:59:51 Document Registration [id number] 04/14/2018 04:59:50 Document Registration [id number] 04/13/2018 04:59:50 Document Registration [id number] 04/12/2018 04:59:47 Document Registration [id number] 04/11/2018 04:59:47 Document Registration [id number] 04/10/2018 04:59:48 Document Registration [id number] 04/09/2018 04:59:49 Document Registration [id number] 04/08/2018 04:59:48 Document Registration [id number] 04/07/2018 04:59:48 Document Registration [id number] 04/06/2018 04:59:47 Document Registration [id number] 04/05/2018 04:59:47 Document Registration [id number] 04/04/2018 04:59:47 Document Registration [id number] 04/04/2018 04:59:46 Document Registration [id number] 04/03/2018 04:59:47 Document Registration [id number] 04/02/2018 04:59:48 Document Registration [id number] 04/01/2018 04:59:47 Document Registration [id number] 03/30/2018 04:59:48 Document Registration [id number] 03/29/2018 04:59:48 Document Registration [id number] 03/28/2018 04:59:48 Document Registration [id number] 03/26/2018 04:59:48 Document Registration [id number] 03/25/2018 04:59:48 Document Registration [id number] 03/24/2018 04:59:49 Document Registration [id number] 03/23/2018 04:59:48 Document Registration [id number] 03/22/2018 04:59:48 Document Registration [id number] 03/21/2018 04:59:48 Document Registration [id number] 03/20/2018 04:59:48 Document Registration [id number] 03/19/2018 04:59:49 Document Registration [id number] 03/18/2018 04:59:49 Document Registration [id number] 03/17/2018 04:59:49 Document Registration [id number] 03/16/2018 04:59:49 Document Registration [id number] 03/15/2018 04:59:48 Document Registration [id number] 03/14/2018 04:59:49 Document Registration [id number] 03/13/2018 04:59:48 Document Registration [id number] 03/12/2018 04:59:49 Document Registration [id number] 03/11/2018 04:59:49 Document Registration [id number] 03/10/2018 04:59:48 Document Registration [id number] 03/09/2018 04:59:50 Document Registration [id number] 03/08/2018 04:59:46 Document Registration [id number] 03/07/2018 04:59:46 Document Registration [id number] 03/06/2018 04:59:46 Document Registration [id number] 03/05/2018 04:59:51 Document Registration [id number] 03/04/2018 04:59:46 Document Registration [id number] 03/03/2018 04:59:46 Document Registration [id number] 03/02/2018 04:59:46 Document Registration [id number] 03/01/2018 04:59:46 Document Registration [id number] 02/28/2018 04:59:46 Document Registration [id number] 02/26/2018 04:59:47 Document Registration [id number] 02/25/2018 04:59:47 Document Registration [id number] 02/24/2018 04:59:47 Document Registration [id number] 02/23/2018 04:59:48 Document Registration [id number] 02/22/2018 04:59:47 Document Registration [id number] 02/20/2018 04:59:47 Document Registration [id number] 02/19/2018 04:59:47 Document Registration [id number] 02/18/2018 04:59:49 Document Registration [id number] 02/16/2018 04:59:48 Document Registration [id number] 02/15/2018 04:59:48 Document Registration [id number] 02/14/2018 04:59:49 Document Registration [id number] 02/13/2018 04:59:50 Document Registration [id number] 02/12/2018 04:59:49 Document Registration [id number] 02/11/2018 04:59:49 Document Registration [id number] 02/10/2018 04:59:49 Document Registration [id number] 02/09/2018 04:59:50 Document Registration [id number] 02/08/2018 04:59:34 Document Registration [id number] 02/07/2018 04:59:35 Document Registration [id number] 02/06/2018 04:59:34 Document Registration [id number] 02/05/2018 04:59:34 Document Registration [id number] 02/04/2018 04:59:35 Document Registration [id number] 02/03/2018 04:59:34 Document Registration [id number] 01/23/2018 04:59:45 Document Registration [id number] 01/22/2018 04:59:46 Document Registration [id number] 01/21/2018 04:59:47 Document Registration [id number] 01/20/2018 04:59:44 Document Registration [id number] 01/19/2018 04:59:49 Document Registration [id number] 01/17/2018 04:59:27 Document Registration [id number] 01/16/2018 04:59:28 Document Registration [id number] 01/15/2018 04:59:30 Document Registration [id number] 01/14/2018 04:59:30 Document Registration [id number] 01/13/2018 04:59:27 Document Registration [id number] 01/12/2018 04:59:32 Document Registration [id number] 01/11/2018 04:59:33 Document Registration [id number] 01/10/2018 04:59:34 Document Registration [id number] 01/09/2018 04:59:36 Document Registration [id number] 01/08/2018 04:59:36 Document Registration [id number] 01/07/2018 04:59:37 Document Registration [id number] 01/06/2018 04:59:38 Document Registration [id number] 01/05/2018 04:59:39 Document Registration [id number] 01/04/2018 04:59:40 Document Registration [id number] 01/03/2018 04:59:41 Document Registration [id number] 01/02/2018 04:59:42 Document Registration [id number] 01/01/2018 04:59:39 Document Registration [id number] 12/31/2017 04:59:44 Document Registration [id number] 12/30/2017 04:59:45 Document Registration [id number] 12/29/2017 04:59:46 Document Registration [id number] 12/28/2017 04:59:47 Document Registration [id number] 12/27/2017 04:59:48 Document Registration [id number] 12/26/2017 04:59:44 Document Registration [id number] 12/25/2017 04:59:48 Document Registration [id number] 12/24/2017 04:59:46 Document Registration [id number] 12/23/2017 04:59:50 Document Registration [id number] 12/22/2017 04:59:49 Document Registration [id number] 12/21/2017 04:59:34 Document Registration [id number] 12/20/2017 04:59:37 Document Registration [id number] 12/19/2017 04:59:38 Document Registration [id number] 12/18/2017 04:59:38 Document Registration [id number] 12/17/2017 04:59:35 Document Registration [id number] 12/16/2017 04:59:39 Document Registration [id number] 12/15/2017 04:59:39 Document Registration [id number] 12/14/2017 04:59:40 Document Registration [id number] 12/13/2017 04:59:39 Document Registration [id number] 12/12/2017 04:59:40 Document Registration [id number] 12/11/2017 04:59:40 Document Registration [id number] 12/10/2017 04:59:40 Document Registration [id number] 12/09/2017 04:59:41 Document Registration [id number] 12/08/2017 04:59:41 Document Registration [id number] 12/07/2017 04:59:42 Document Registration [id number] 12/06/2017 04:59:42 Document Registration [id number] 12/04/2017 04:59:42 Document Registration [id number] 12/03/2017 04:59:43 Document Registration [id number] 12/02/2017 04:59:43 Document Registration [id number] 12/01/2017 04:59:43 Document Registration [id number] 11/30/2017 04:59:43 Document Registration [id number] 11/29/2017 04:59:44 Document Registration [id number] 11/28/2017 04:59:44 Document Registration [id number] 11/27/2017 04:59:44 Document Registration [id number] 11/26/2017 04:59:44 Document Registration [id number] 11/25/2017 04:59:44 Document Registration [id number] 11/24/2017 04:59:45 Document Registration [id number] 11/23/2017 04:59:45 Document Registration [id number] 11/22/2017 04:59:46 Document Registration [id number] 11/21/2017 04:59:42 Document Registration [id number] 11/20/2017 04:59:46 Document Registration [id number] 11/19/2017 04:59:47 Document Registration [id number] 11/18/2017 04:59:46 Document Registration [id number] 11/17/2017 04:59:48 Document Registration [id number] 11/17/2017 04:59:47 Document Registration [id number] 11/16/2017 04:59:47 Document Registration [id number] 11/15/2017 04:59:48 Document Registration [id number] 11/14/2017 04:59:47 Document Registration [id number] 11/13/2017 04:59:48 Document Registration [id number] 11/12/2017 04:59:49 Document Registration [id number] 11/11/2017 04:59:48 Document Registration [id number] 11/10/2017 04:59:49 Document Registration [id number] 11/09/2017 04:59:43 Document Registration [id number] 11/08/2017 04:59:43 Document Registration [id number] 11/07/2017 04:59:43 Document Registration [id number] 11/06/2017 04:59:44 Document Registration [id number] 11/05/2017 04:59:44 Document Registration [id number] 11/04/2017 04:59:44 Document Registration [id number] 11/03/2017 04:59:45 Document Registration [id number] 11/02/2017 04:59:45 Document Registration [id number] 11/01/2017 04:59:46 Document Registration [id number] 11/01/2017 04:59:45 Document Registration [id number] 10/31/2017 04:59:45 Document Registration [id number] 10/30/2017 04:59:46 Document Registration [id number] 10/29/2017 04:59:46 Document Registration [id number] 10/28/2017 04:59:47 Document Registration [id number] 10/27/2017 04:59:47 Document Registration [id number] 10/26/2017 04:59:47 Document Registration [id number] 10/25/2017 04:59:47 Document Registration [id number] 10/24/2017 04:59:44 Document Registration [id number] 10/23/2017 04:59:48 Document Registration [id number] 10/22/2017 04:59:45 Document Registration [id number] 10/21/2017 04:59:50 Document Registration [id number] 10/20/2017 04:59:50 Document Registration [id number] 10/19/2017 04:59:43 Document Registration [id number] 10/18/2017 04:59:40 Document Registration [id number] 10/17/2017 04:59:43 Document Registration [id number] 10/16/2017 04:59:45 Document Registration [id number] 10/15/2017 04:59:45 Document Registration [id number] 10/14/2017 04:59:46 Document Registration [id number] 10/13/2017 04:59:42 Document Registration [id number] 10/12/2017 04:59:45 Document Registration [id number] 10/11/2017 04:59:46 Document Registration [id number] 10/10/2017 04:59:46 Document Registration [id number] 10/09/2017 04:59:46 Document Registration [id number] 10/08/2017 04:59:47 Document Registration [id number] 10/07/2017 04:59:47 Document Registration [id number] 10/06/2017 04:59:44 Document Registration [id number] 10/05/2017 04:59:47 Document Registration [id number] 10/04/2017 04:59:48 Document Registration [id number] 10/03/2017 04:59:48 Document Registration [id number] 10/02/2017 04:59:48 Document Registration [id number] 10/01/2017 04:59:45 Document Registration [id number] 09/30/2017 04:59:45 Document Registration [id number] 09/29/2017 04:59:49 Document Registration [id number] 09/28/2017 04:59:44 Document Registration [id number] 09/27/2017 04:59:44 Document Registration [id number] 09/26/2017 04:59:45 Document Registration [id number] 09/25/2017 04:59:45 Document Registration [id number] 09/24/2017 04:59:46 Document Registration [id number] 09/23/2017 04:59:45 Document Registration [id number] 09/22/2017 04:59:45 Document Registration [id number] 09/21/2017 04:59:46 Document Registration [id number] 09/20/2017 04:59:46 Document Registration [id number] 09/19/2017 04:59:46 Document Registration [id number] 09/18/2017 04:59:46 Document Registration [id number] 09/17/2017 04:59:47 Document Registration [id number] 09/16/2017 04:59:44 Document Registration [id number] 09/15/2017 04:59:47 Document Registration [id number] 09/14/2017 04:59:48 Document Registration [id number] 09/13/2017 04:59:45 Document Registration [id number] 09/12/2017 04:59:49 Document Registration [id number] 09/11/2017 04:59:49 Document Registration [id number] 09/10/2017 04:59:49 Document Registration [id number] 09/09/2017 04:59:46 Document Registration [id number] 09/08/2017 04:59:46 Document Registration [id number] 09/07/2017 04:59:47 Document Registration [id number] 09/06/2017 04:59:43 Document Registration [id number] 09/05/2017 04:59:46 Document Registration [id number] 09/04/2017 04:59:47 Document Registration [id number] 09/03/2017 04:59:48 Document Registration [id number] 09/02/2017 04:59:47 Document Registration [id number] 09/01/2017 04:59:44 Document Registration [id number] 08/31/2017 04:59:44 Document Registration [id number] 08/30/2017 04:59:49 Document Registration [id number] 08/30/2017 04:59:48 Document Registration [id number] 08/29/2017 04:59:45 Document Registration [id number] 08/28/2017 04:59:45 Document Registration [id number] 08/27/2017 04:59:49 Document Registration [id number] 08/26/2017 04:59:50 Document Registration [id number] 08/25/2017 04:59:46 Document Registration [id number] 08/24/2017 04:59:49 Document Registration [id number] 08/24/2017 04:59:48 Document Registration [id number] 08/23/2017 04:59:45 Document Registration [id number] 08/22/2017 04:59:46 Document Registration [id number] 08/21/2017 04:59:50 Document Registration [id number] 08/20/2017 04:59:47 Document Registration [id number] 08/19/2017 04:59:47 Document Registration [id number] 08/18/2017 04:59:51 Document Registration [id number] 08/17/2017 04:59:47 Document Registration [id number] 08/16/2017 04:59:48 Document Registration [id number] 08/15/2017 04:59:51 Document Registration [id number] 08/14/2017 04:59:48 Document Registration [id number] 08/13/2017 04:59:48 Document Registration [id number] 08/12/2017 04:59:52 Document Registration [id number] 08/11/2017 04:59:49 Document Registration [id number] 08/10/2017 04:59:54 Document Registration [id number] 08/09/2017 04:59:56 Document Registration [id number] 08/08/2017 04:59:58 Document Registration [id number] 08/07/2017 04:59:59 Document Registration [id number] 08/06/2017 05:00:01 Document Registration [id number] 08/05/2017 04:59:59 Document Registration [id number] 08/04/2017 05:00:00 Document Registration [id number] 08/03/2017 05:00:06 Document Registration [id number] 08/02/2017 05:00:04 Document Registration [id number] 08/01/2017 05:00:04 Document Registration [id number] 07/31/2017 05:00:07 Document Registration [id number] 07/30/2017 05:00:09 Document Registration [id number] 07/29/2017 05:00:04 Document Registration [id number] 07/28/2017 05:00:08 Document Registration [id number] 07/27/2017 05:00:04 Document Registration [id number] 07/26/2017 05:00:08 Document Registration [id number] 07/25/2017 05:00:07 Document Registration [id number] 07/24/2017 05:00:04 Document Registration [id number] 05:00:08 Document Registration [id number] 07/22/2017 05:00:07 Document Registration [id number] 07/21/2017 05:00:04 Document Registration [id number] 07/20/2017 05:00:04 Document Registration [id number] 07/19/2017 05:00:08 Document Registration [id number] 07/18/2017 05:00:04 Document Registration [id number] 07/17/2017 05:00:04 Document Registration [id number] 07/16/2017 05:00:07 Document Registration [id number] 07/15/2017 05:00:04 Document Registration [id number] 07/14/2017 05:00:04 Document Registration [id number] 07/13/2017 05:00:08 Document Registration [id number] 07/12/2017 05:00:06 Document Registration [id number] 07/11/2017 05:00:04 Document Registration [id number] 07/10/2017 05:00:07 Document Registration [id number] 07/09/2017 05:00:04 Document Registration [id number] 07/08/2017 05:00:08 Document Registration [id number] 07/07/2017 05:00:07 Document Registration [id number] 07/06/2017 05:00:04 Document Registration [id number] 07/05/2017 05:00:05 Document Registration [id number] 07/04/2017 05:00:07 Document Registration [id number] 07/03/2017 05:00:03 Document Registration [id number] 07/02/2017 05:00:04 Document Registration [id number] 07/01/2017 05:00:07 Document Registration [id number] 06/30/2017 05:00:04 Document Registration [id number] 06/29/2017 05:00:04 Document Registration [id number] 06/28/2017 05:00:07 Document Registration [id number] 06/27/2017 05:00:04 Document Registration [id number] 06/26/2017 05:00:04 Document Registration [id number] 06/25/2017 05:00:08 Document Registration [id number] 06/24/2017 05:00:05 Document Registration [id number] 06/23/2017 05:00:04 Document Registration [id number] 06/22/2017 05:00:08 Document Registration [id number] 06/21/2017 05:00:04 Document Registration [id number] 06/20/2017 05:00:03 Document Registration [id number] 06/19/2017 05:00:08 Document Registration [id number] 06/18/2017 05:00:08 Document Registration [id number] 06/17/2017 05:00:04 Document Registration [id number] 06/16/2017 05:00:09 Document Registration [id number] 06/15/2017 05:00:04 Document Registration [id number] 06/14/2017 05:00:04 Document Registration [id number] 06/13/2017 05:00:08 Document Registration [id number] 06/12/2017 05:00:04 Document Registration [id number] 06/11/2017 05:00:04 Document Registration [id number] 06/10/2017 05:00:07 Document Registration [id number] 06/09/2017 05:00:03 Document Registration [id number] 06/08/2017 05:00:05 Document Registration [id number] 06/07/2017 05:00:07 Document Registration [id number] 06/06/2017 05:00:04 Document Registration [id number] 06/05/2017 05:00:05 Document Registration [id number] 06/04/2017 05:00:08 Document Registration [id number] 06/03/2017 05:00:07 Document Registration [id number] 06/02/2017 05:00:09 Document Registration [id number] 06/01/2017 05:00:07 Document Registration [id number] 05/31/2017 05:00:04 Document Registration [id number] 05/30/2017 05:00:04 Document Registration [id number] 05/29/2017 05:00:08 Document Registration [id number] 05/28/2017 05:00:04 Document Registration [id number] 05/27/2017 05:00:08 Document Registration [id number] 05/26/2017 05:00:08 Document Registration [id number] 05/25/2017 05:00:03 Document Registration [id number] 05/24/2017 05:00:04 Document Registration [id number] 05/23/2017 05:00:08 Document Registration [id number] 05/22/2017 05:00:03 Document Registration [id number] 05/21/2017 05:00:05 Document Registration [id number] 05/20/2017 05:00:08 Document Registration [id number] 05/19/2017 05:00:04 Document Registration [id number] 05/18/2017 05:00:03 Document Registration [id number] 05/17/2017 05:00:08 Document Registration [id number] 05/16/2017 05:00:03 Document Registration [id number] 05/15/2017 05:00:06 Document Registration [id number] 05/14/2017 05:00:07 Document Registration [id number] 05/13/2017 05:00:08 Document Registration [id number] 05/12/2017 05:00:04 Document Registration [id number] 05/11/2017 05:00:07 Document Registration [id number] 05/10/2017 05:00:04 Document Registration [id number] 05/09/2017 05:00:03 Document Registration [id number] 05/08/2017 05:00:07 Document Registration [id number] 05/07/2017 05:00:09 Document Registration [id number] 05/06/2017 05:00:04 Document Registration [id number] 05/05/2017 05:00:07 Document Registration [id number] 05/04/2017 05:00:04 Document Registration [id number] 05/03/2017 05:00:07 Document Registration [id number] 05/02/2017 05:00:07 Document Registration [id number] 05/01/2017 05:00:04 Document Registration [id number] 04/30/2017 05:00:04 Document Registration [id number] 04/29/2017 05:00:07 Document Registration [id number] 04/28/2017 05:00:04 Document Registration [id number] 04/27/2017 05:00:04 Document Registration [id number] 04/26/2017 05:00:07 Document Registration [id number] 04/25/2017 05:00:08 Document Registration [id number] 04/24/2017 05:00:04 Document Registration [id number] 04/23/2017 05:00:07 Document Registration [id number] 04/22/2017 05:00:04 Document Registration [id number] 04/21/2017 05:00:08 Document Registration [id number] 04/20/2017 05:00:08 Document Registration [id number] 04/19/2017 05:00:03 Document Registration [id number] 04/18/2017 05:00:07 Document Registration [id number] 04/17/2017 05:00:07 Document Registration [id number] 04/16/2017 05:00:03 Document Registration [id number] 04/15/2017 05:00:04 Document Registration [id number] 04/14/2017 05:00:08 Document Registration [id number] 04/13/2017 05:00:08 Document Registration [id number] 04/12/2017 05:00:04 Document Registration [id number] 04/11/2017 05:00:07 Document Registration [id number] 04/10/2017 05:00:08 Document Registration [id number] 04/09/2017 05:00:04 Document Registration [id number] 04/08/2017 05:00:08 Document Registration [id number] 04/07/2017 05:00:05 Document Registration [id number] 03/17/2016 10:01:00 Document Registration [id number] 09/15/2011 11:51:00 Document Registration [id number] 02/01/2011 10:38:00 Document Registration [id number] 01/18/2011 11:10:00 Document Registration [id number] 01/05/2011 09:29:00 Document Registration [id number] 01/04/2011 12:32:00 Document Registration [id number] 12/31/2010 10:33:00 Document Registration [id number] 02/12/2010 00:00:00 Document Registration
[2018-12-31] MEDS: LACTATED RINGERS 1,000 ML IV SCH ×4 (00:49→18:40)
[2018-12-31 00:56] LABS: BACTERIA,URINE TRACE /HPF; SQUAMOUS EPITHELIAL CELL,UR RARE /HPF
[2018-12-31] MEDS: fentaNYL INJECTION 100 MCG/2 ML AMP IV PRN ×2 (01:30→03:29)
--- NOTE | 2018-12-31 06:12 | Diagnostic Imaging Report ---
Supine AP chest at 1047 hours. INDICATION: Fell, hip pain. FINDINGS: The heart size is within normal limits and stable when compared to 04/04/2017. The lungs are clear. There is no evidence for failure, pneumonia or for pleural effusion. The mediastinum is not widened. The osseous structures are intact. IMPRESSION: There is no evidence for an acute cardiopulmonary abnormality. Dictated by: Dictated on workstation # [id number]
--- NOTE | 2018-12-31 06:15 | Diagnostic Imaging Report ---
Pelvis and left hip at 1025 hours. INDICATION: Fell, left hip pain. Single AP view of the pelvis and AP and lateral views of left hip were obtained. FINDINGS: There is a displaced fracture of the left femoral neck. The distal fracture fragment is displaced superiorly by approximately 2 CM. No other fracture or acute bony abnormality is appreciated. The total hip prosthesis on the right seen on the previous CT abdomen/pelvis exam of 06/03/2015 is again evident and seems in good position. There is mild symmetrical sclerosis of the sacroiliac joints and fairly severe degenerative disease involving the visualized lower lumbar spine. The soft tissues are unremarkable. IMPRESSION: 1. There is a displaced fracture of left femoral neck. There is no acute bony abnormality noted otherwise. 2. If further evaluation to extent of the injury to the left femur is desired, then CT would be recommended. Dictated by: Dictated on workstation # [id number]
[2018-12-31] MEDS ORDERED: ONDANSETRON 4 MG/2 ML (SDV) Z0FRAN ONE ×3 (09:11→13:52)
--- NOTE | 2018-12-31 09:44 | Consultation - Ortho ---
Consult - Ortho Subjective Date of Exam 12/31/18 Chief Complaint Displaced left femoral neck fracture HPI/Events since last exam The patient is a 73-year-old white female who fell last evening at home. She ambulates with a walker because she is unsteady with her ambulation. She's had a previous right hip fracture approximately 6-7 years ago and had a cemented bipolar hemiarthroplasty inserted. Since then she has noticed some difficulty ambulating without the walker. 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 She denies any previous problems with the left hip. She denies any back problems. She denies any other injuries. She does have a history of rheumatoid arthritis being treated by methotrexate in the past. She no longer taking the methotrexate. She states her white count is usually low because of the methotrexate and she is being followed by Dr. Deleon for this. She has no allergies. Medical, Surgical History Previous surgeries include excision of the pituitary tumor, hysterectomy, cholecystectomy, Again she has a history of rheumatoid arthritis being treated by methotrexate in the past Social History She lives at home with her Family History Family history reviewed and no additions or changes Review of Systems Review of systems no additions or changes Please see surgical history. Again she has a history of rheumatoid arthritis being treated in the past by methotrexate she also has a history of seizure disorder Allergies: Coded Allergies: No Known Drug Allergies (Unverified , 04/10/18) Home Meds Reported Medications Meclizine HCl (Meclizine HCl) 25 Mg Tablet, 25 MG PO TID PRN for DIZZINESS, TAB 04/14/18 Acetaminophen (Tylenol Extra Strength) 500 Mg Tablet, 500 MG PO Q4H PRN for PAIN-MILD, TAB 04/14/18 Phenytoin Sodium Extended (Phenytoin Sodium Extended) 100 Mg Capsule, PO UD, CAP TAKE 1 CAPSULE THREE TIMES DAILY ON TUESDAY AND TUESDAY AND 1 CAPSULE FOUR TIMES DAILY ON ALL OTHER DAYS. IF HAVING SYMPTONS OF SEIZURE ACTIVITY, TAKE AN EXTRA PILL. 04/10/18 Lamotrigine (Lamotrigine) 150 Mg Tablet, 150 MG PO HS 04/03/17 Lamotrigine (Lamotrigine) 100 Mg Tablet, 100 MG PO DAILY 04/03/17 Discontinued Reported Medications Denosumab (Prolia) 60 Mg/1 Ml Disp.syrin, 60 MG SQ Q 6 MONTHS, SYRINGE 04/10/18 Discontinued Scripts Cefdinir (Cefdinir) 300 Mg Capsule, 300 MG PO BID, #12 CAP 0 Refills Prov:JOANA WATKINS MD 07/17/18 Pantoprazole Sodium (Protonix) 40 Mg Tablet.dr, 40 MG PO DAILY, #90 TAB Prov:DARIA NEVAREZ Maria R SANTANA 04/16/18 Home Medication List Reviewed: Yes Objective Exam Constitutional: [] HEENT: [] Neck: [No pain with palpation or range of motion] Cardiovascular: [] Respiratory: [] Gastrointestinal: [] Genitourinary: [] Skin: [] Back/Spine: [No pain with palpation.] Extremities: [Upper extremitiesshe has no pain with range of motion. No deformity. No crepitation. Normal sensation. Good pulses. Lower extremities. She has pain with palpation also gentle range of motion left hip. No pain right hip with good range of motion. No pain in either knee. No pain other ankle. She has altered sensation in both feet which is been present for years. Does have good motion of foot and ankles with no weakness] Neurologic: [Altered sensation in both feet] Psychiatric: [] Hematologic/lymphatic/immunologic: [] Vital Signs Vital Signs Date Time Temp Pulse Resp B/P (MAP) Pulse Ox O2 Delivery O2 Flow Rate FiO2 12/31/18 07:57 96 Room Air 12/31/18 04:00 98.2 104 18 131/71 (91) 95 Room Air 12/31/18 00:53 Room Air 12/31/18 00:39 97 Room Air 12/31/18 00:11 98.1 108 18 112/64 95 Room Air 12/30/18 23:39 98.1 108 18 112/64 (80) 95 Room Air 12/30/18 23:31 99.0 99 18 140/80 (100) 98 12/30/18 21:58 99.3 115 20 154/83 (106) I & O 12/31/18 07:00 Intake Total 300 ml Output Total 550 ml Balance -250 ml Lab Results Laboratory Tests 12/30/18 22:06: White Blood Count 2.1L, Red Blood Count 3.83L, Hemoglobin 11.7, Hematocrit 34L, Mean Corpuscular Volume 89, Mean Corpuscular Hemoglobin 31, Mean Corpuscular Hemoglobin Concent 34, Red Cell Distribution Width 12.6, Platelet Count 133, Mean Platelet Volume 8.8, Neutrophils (%) (Auto) 15L, Lymphocytes (%) (Auto) 63H , Monocytes (%) (Auto) 12, Eosinophils (%) (Auto) 10, Basophils (%) (Auto) 1, Neutrophils # (Auto) 0.3L, Lymphocytes # (Auto) 1.3, Monocytes # (Auto) 0.3, Eosinophils # (Auto) 0.2, Basophils # (Auto) 0.0, Prothrombin Time 11.7L, INR Comment 0.8, Sodium Level 137, Potassium Level 3.7, Chloride Level 103, Carbon Dioxide Level 21, Anion Gap 13, Blood Urea Nitrogen 18, Creatinine 0.87, Estimat Glomerular Filtration Rate > 60, BUN/Creatinine Ratio 21, Glucose Level 117H, Calcium Level 8.3L, Corrected Calcium 8.7, Magnesium Level 2.1, Total Bilirubin 0.2, Aspartate Amino Transf (AST/SGOT) 16, Alanine Aminotransferase (ALT/SGPT) 10, Alkaline Phosphatase 120, Total Protein 7.0, Albumin 3.5 12/31/18 00:10: Urine Color YELLOW, Urine Clarity CLEAR, Urine pH 8, Urine Specific [place] 1.010L, Urine Protein NEGATIVE, Urine Glucose (UA) NEGATIVE, Urine Ketones NEGATIVE, Urine Nitrite NEGATIVE, Urine Bilirubin NEGATIVE, Urine Urobilinogen NORMAL, Urine Leukocyte Esterase 3+H, Urine RBC (Auto) NEGATIVE, Urine RBC NONE, Urine WBC 2-5, Urine Squamous Epithelial Cells RARE, Urine Crystals NONE, Urine Bacteria TRACE, Urine Casts NONE, Urine Mucus NEGATIVE, Urine Culture Indicated NO Imaging X-rays were reviewed of the pelvis and left hip which shows a cemented bipolar hemiarthroplasty right hip in good position with no evidence of loosening. She has a displaced femoral neck fracture on the left with no evidence of degenerative arthritis of the hip joint Assessment and Plan Assessment Displaced femoral neck fracture left hip Problem List Displaced femoral neck fracture left hip Plan Plantreatment options were discussed with the patient and her . Due to the fact that this is a displaced femoral neck fracture and recommend proceeding with a cemented bipolar hemiarthroplasty. Since she's had no previous problems with the left hip and no evidence of arthritis but would not recommend a total hip at this point. Due to fact that she has seizure disorder and is on medication and the fact that she is taking methotrexate in the past I would not recommend a press-fit stem. She most likely will have difficulty with partial weightbearing with the press-fit stem so proceed with the cemented bipolar he miarthroplasty. I discussed procedure, risks and complications and she would like to proceed. She is scheduled for later on this morning. She is to be seen by Dr. Terry. Final Diagonsis Displaced femoral neck fracture left hip Level of the visit: Level 3 ELISA TAVERAS MD Dec 31, 2018 09:44
[2018-12-31] MEDS ORDERED: ceFAZolin 2 GM/50 ML NS 50 ML IV ONE (09:45)
[2018-12-31] MEDS: ONDANSETRON 4 MG/2 ML (SDV) Z0FRAN IVP PRN ×2 (10:25→20:15)
--- NOTE | 2018-12-31 11:00 | History & Physical-Hospitalist ---
History of Present Illness HPI/Chief Complaint Chief complaint: Left hip fracture History of present illness: This is a 73-year-old white female patient of Dr. Zepeda who is chronically debilitated and home bound due to chronic dizziness, multiple falls, rheumatoid arthritis, and seizure disorder with chronic neutropenia who presented to the ER after a fall at home sustaining a left hip fracture. She reports that she had just watch the [place] got up from her chair in the living room to go to her bedroom and her was beside her and she suffered a fall with immediate left hip pain. She could not ambulate. She is brought to the ER assessed to have a fracture and is currently awaiting surgery for noon by Dr. Varela. She is very concerned about nausea with pain medication and anesthesia. Patient appears to be frail but benefits are assessed to outweigh any medical risks in order to have a chance that ambulation again and return to independent living. Source: patient, family, RN/MD, old records Exam Limitations: no limitations Date Seen 12/31/18 Time Seen by a Provider: 10:45 Attending Physician Magali Zepeda MD PCP Magali Zepeda MD Referring Physician Date of Admission Dec 30, 2018 at 22:47 Home Medications & Allergies Home Medications Reviewed patient Home Medication Reconciliation performed by pharmacy medication reconciliations body shop technician and/or nursing. Patients Allergies have been reviewed. 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 Alcohol Use: Denies Use Recreational Drug Use: No Smoking Status: Never a Smoker 2nd Hand Smoke Exposure: No Recent Foreign Travel: No Contact w/other who traveled: No Recent Hopitalizations: No Recent Infectious Disease Expo: No Immunizations Up To Date Tetanus Booster (TDap): Unknown Pediatric: No Seasonal Allergies Seasonal Allergies: No Past Medical History Surgeries: Gallbladder, 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, Neurological, Orthopedic (Right hip r eplacement Dr. Cai) Currently Using CPAP: No Currently Using BIPAP: No Cardiac: High Cholesterol Neurological: Brain Tumor, Seizure Disorder, Vertigo Reproductive: No Sexually Transmitted Disease: No HIV/AIDS: No 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 Genitourinary: Bladder Infection, UTI-Chronic Gastrointestinal: Chronic Constipation, Gall Bladder Disease Musculoskeletal: Rheumatoid Arthritis Loss of Vision: Bilateral Psychosocial: Depression History of Blood Disorders: Yes (NEUTROPENIA--NORMAL WBC 1.0-1.5) Adverse Reaction to Blood Jacob: No (N/A) Family History Benign neoplasm pituitary gland and craniopharyngeal duct G8 BROTHER, Onset:Unknown Completed stroke 19 FATHER, , Onset:60 years & older 19 MOTHER, , Onset:60 years & older FH: epilepsy G8 SISTER, Onset:Unknown Review of Systems Constitutional: see HPI, malaise, weakness EENTM: no symptoms reported Respiratory: no symptoms reported Cardiovascular: no symptoms reported Gastrointestinal: loss of appetite, nausea Genitourinary: no symptoms reported Musculoskeletal: joint pain (left hip) All Other Systems Reviewed Negative Unless Noted: Yes Physical Exam Physical Exam Vital Signs Vital Signs - First Documented 12/30/18 12/30/18 12/30/18 21:58 23:31 23:39 Temp 99.3 Pulse 115 Resp 20 B/P (MAP) 154/83 (106) Pulse Ox 98 O2 Delivery Room Air Capillary Refill : Less Than 3 SecondsLess Than 3 Seconds Height, Weight, BMI Height: 5'5.00" Weight: 106lbs. 11.2oz. 48.183347cj; 17.8 BMI Method:Stated General Appearance: No Apparent Distress, WD/WN, Chronically ill, Thin, Other (Frail, pale) Eyes: Right Eye Normal Inspection, Right Eye PERRL HEENT: PERRL/EOMI, Normal ENT Inspection, Pharynx Normal, Moist Mucous Membranes Neck: Full Range of Motion, Normal Inspection, Non Tender Respiratory: Chest Non Tender, Lungs Clear, Normal Breath Sounds, No Accessory Muscle Use, No Respiratory Distress Cardiovascular: Regular Rate, Rhythm, No Edema, No Gallop, No JVD, No Murmur, Normal Peripheral Pulses Gastrointestinal: Normal Bowel Sounds, No Organomegaly, No Pulsatile Mass, Non Tender, Soft Back: Normal Inspection, No CVA Tenderness, No Vertebral Tenderness Extremity: Normal Capillary Refill, Normal Inspection, Normal Range of Motion (Except left leg due to hip fracture pain), Non Tender, No Calf Tenderness, No Pedal Edema Neurologic/Psychiatric: Alert, Oriented x3, No Motor/Sensory Deficits, Normal Mood/Affect, looseleaf binder 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 Assessment/Plan Admission Diagnosis Assessment: Left femoral neck fracture in need of repair by Dr. Varela today since benefits outweigh medical risks History of seizure disorder Chronic dizziness requiring walker assistance in ambulation Multiple falls in the past Chronic neutropenia managed by Dr. Zabala History of pituitary gland tumor benign managed at 5 years ago Right hip replacement history by Dr. Cai Rheumatoid arthritis causing home bound status and chronic debility Plan: Proceed on with repair of the hip fracture since benefits outweigh medical risks Monitor labs closely Dr. Zepeda will return tomorrow Inpatient rehabilitation candidate since she has used that service before after her right hip replacement High risk for falls Pain control Nausea control with pain medication and anesthesia Admission Status: Inpatient Order (span 2 midnights) Reason for Inpatient Admission: History of fracture will require repair with 3 days postop management before disposition Diagnosis/Problems Diagnosis/Problems (1) Left displaced femoral neck fracture Status: Acute (2) Fall Status: Acute Qualifiers: Encounter type: initial encounter Qualified Codes: W19.XXXA - Unspecified fall, initial encounter (3) Rheumatoid arthritis Status: Chronic Qualifiers: Rheumatoid arthritis location: unspecified site Rheumatoid factor presence: unspecified presence Qualified Codes: M06.9 - Rheumatoid arthritis, unsp ecified (4) Debility Status: Chronic (5) Chronic neutropenia Status: Chronic (6) 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
[2018-12-31] MEDS ORDERED: MECLIZINE 25 MG (ANTIVERT) TAB PO PRN (11:15)
[2018-12-31] MEDS ORDERED: NON-FORMULARY MEDICATION 1 EA EA (Acetaminophen (Tylenol Extra Strength) 500 MG) PO PRN (11:15)
[2018-12-31] MEDS ORDERED: ACETAMINOPHEN 500 MG TAB (TYLENOL) PO PRN (11:15)
[2018-12-31] MEDS ORDERED: CATHETER FLUSH 10 ML SYR IV PRN (11:30)
[2018-12-31] MEDS ORDERED: FAMOTIDINE 20MG/2ML IV (PEPCID) ONE (12:10)
[2018-12-31] MEDS ORDERED: NEO/POLY/BAC (NEOSPORIN) OINT 15 GM TUBE ONE (12:13)
[2018-12-31] MEDS ORDERED: FAMOTIDINE 20MG/2ML IV (PEPCID) IV ONE (12:30)
[2018-12-31] MEDS ORDERED: LIDOCAINE PF 2% 5 ML (XYLOCAINE) VIAL ONE (12:34)
[2018-12-31] MEDS ORDERED: fentaNYL INJECTION 100 MCG/2 ML AMP ONE (12:34)
[2018-12-31] MEDS ORDERED: proPOfol 200 MG/20 ML (DIPRIVAN) VIAL IV ONE (12:34)
[2018-12-31] MEDS ORDERED: ROCURONIUM 10 MG/ML 5 ML SYRINGE IV ONE (12:34)
[2018-12-31] MEDS ORDERED: MIDAZOLAM 2 MG/2 ML (VERSED) VIAL ONE (12:35)
[2018-12-31] MEDS ORDERED: SEVOFLURANE (ULTANE) 15 ML INHAL SOLN ONE ×7 (12:38→15:15)
[2018-12-31] MEDS: LACTATED RINGERS 1,000 ML IV PRN ×2 (12:45→14:31)
--- NOTE | 2018-12-31 12:45 | NUR ---
TO SURGERY PER BED, HERE, VERBALIZED UNDERSTANDING OF SURGERY, JARAMILLO PATENT, BUCKS TRACTION ON
[2018-12-31] MEDS ORDERED: PHENYTOIN 100 MG (DILANTIN) CAP PO SCH (13:00)
[2018-12-31] MEDS: PHENYTOIN 100 MG (DILANTIN) CAP PO SCH ×3 (13:03→22:34)
[2018-12-31] MEDS ORDERED: DEXAMETHASONE 10 MG/ML (DECADRON) 1 ML VIAL ONE (14:01)
[2018-12-31] MEDS ORDERED: morphine INJ 10 MG/ML 1ML (SYR OR VIAL) ONE (14:22)
[2018-12-31] MEDS ORDERED: BUPIVACAINE 0.25% 30 ML (SENSORCAINE) VIAL ONE (14:57)
[2018-12-31] MEDS ORDERED: ONDANSETRON 4 MG/2 ML (SDV) Z0FRAN IVP PRN (15:45)
[2018-12-31] MEDS ORDERED: fentaNYL INJECTION 100 MCG/2 ML AMP IVP ONE (15:45)
[2018-12-31] MEDS ORDERED: PROMETHAZINE INJ 25 MG/ML (PHENERGAN) AMP IVP ONE (15:45)
--- NOTE | 2018-12-31 16:05 | Diagnostic Imaging Report ---
INDICATION: Left hip arthroplasty. COMPARISON: None. EXAMINATION: Single view of the left hip was obtained. FINDINGS: Well-seated left hip arthroplasty without fracture, dislocation or loosening. There is no unexpected radiopaque foreign body. IMPRESSION: Left hip arthroplasty. Dictated by: Dictated on workstation # [id number]
--- NOTE | 2018-12-31 16:14 | Operative Report - Ortho ---
Operative Report Surgeon (s)/Combat Control (s) Surgeon ELISA TAVERAS MD Combat Control n/a Pre-Operative Diagnosis displaced femoral neck fracture left hip Post-Operative Diagnosis same Operative Report Date of Procedure: Dec 31, 2018 Name of Procedure Performed: Cemented bipolar hemiarthroplasty left hip Number 2 cemented stem 48 x 28 mm bipolar head with a neutral neck Description & Findings The patient was seen in the preoperative area and her left leg was marked. She had no further questions or concerns. She was given 2 g Ancef IV preoperatively. She was taken operating room in her hospital bed and placed on the OR table after administration of general anesthesia. She was placed on the pegboard with pegs applied anterior and posterior pelvis and anterior and posterior chest. These were well padded. The left hip and leg were then prepped and draped in the usual sterile manner. Incision was made from the tip of the greater trochanter posterior and superior and distally along line with the proximal femur. This was taken down through subjacent tissue. Bleeders are cauterized. The iliotibial band and gluteal fascia were split in line with the skin incision and retracted with a Charnley retractor. The piriformis tendon was then tagged with a #1 Vicryl suture. The piriformis and short external rotators were taken off the posterior aspect of the greater trochanter. The capsule was noted to be intact. The capsule was teed. He had was removed with a corkscrew. This was measured at 47 mm. A proximal femoral retractor was placed in the neck of the femur and the neck was trimmed to approximately 12 mm above the lesser trochanter. At this point the 46 mm trial head was inserted, then a 47 and finally 48. It was felt that the 48 mm head fit best. This was removed. The proximal femur was then prepared using a box osteotome, T-handled reamer and then broaching to a number 2 broach which fit well. The neutral neck and 48 mm head were then placed on the broach and the hip was reduced and found to be stable with no pistoning in full extension. At this point the broach and head were removed. The cement plug was then inserted in the proximal femur approximately 1-1.5 cm distal to the tip of the stem. This is any irrigated with pressurized irrigation. The acetabulum was also irrigated and noted to have no debris. At this point the cement was prepared and inserted in the proximal femur with a cement gun which was then pressurized when the cement was ready. The number 2 stem was then inserted and held in position and approximately 15 of anteversion. Excess cement was removed. Once the cement had hardened the acetabulum was inspected and noted to have no debris. This was then irrigated. The neutral neck and 48 mm x 28 mm bipolar head was then inserted and tapped into place. The hip was reduced and again found to be stable with no pistoning in full extension. At this point the wound was again irrigated with pressurized normal saline. The capsule was closed with #1 Vicryl. Drill holes were placed through the greater trochanter and the sutures from the capsule were placed through 1 drill hole and the suture from the piriformis through the other. The hip was placed in neutral to sutures were tied over the posterior aspect of the greater trochanter. The wound was again irrigated. The iliotibial band and gluteal fascia were closed with interrupted [id number] #1 Vicryl sutures. The wound was again irrigated and then the subjacent tissue was closed with #1 Vicryl and 2-0 Vicryl. The skin was then closed with slick. The wound was dressed with antibiotic ointment, Adaptic and 4 x 4's and an AVD. These were taped in position. An abduction pillow was applied to the legs. Patient was then placed supine on her hospital bed. Leg lengths were equal. Equal external rotation and internal rotation were noted. Equal pulses. A fascial block was then placed by anesthesia. The patient was then transferred to recovery room in good condition, she tolerated the procedure well. Estimated blood loss was 150 mL's. No replacement. No drains. Postop x-ray showed good position of the cemented bipolar hemiarthroplasty n/a Anesthesia Type Gen. Estimated Blood Loss 150 mL's Packing none. Specimen(s) collected/removed The femoral head was sent to pathology for gross inspection only ELISA TAVERAS MD Dec 31, 2018 16:14
--- NOTE | 2018-12-31 16:45 | NUR ---
RECEIVED FROM SURGERY,ALERT, C/O NAUSEA, ZOFRAN GIVEN BY [facility] NURSE, JARAMILLO PATENT WITH CLEAR YELLOW URINE, DRESSING DRY AND INTACT TO LEFT HIP, ICE PACK TO HIP, SCD'S ON, IV SITE WITHOUT REDNESS OR SWELLING, IV INFUSING AT 125ML HOUR, AT BEDSIDE, CONTINUOUS PULSE OX ON, O2 SAT 99 PERCENT ON ROOM AIR. CALL LIGHT WITHIN REACH, BED RAIL PADDED FOR SEIZURE PRECAUTION
[2018-12-31] MEDS: ceFAZolin 2 GM IV Premixed 50 ML IV SCH (20:15)
[2018-12-31] MEDS ORDERED: NON-FORMULARY MEDICATION 1 EA EA (Lamotrigine 150 MG) PO SCH (21:00)
[2018-12-31] MEDS ORDERED: PROCHLORPERAZINE 25 MG (COMPAZINE) SUPP PR PRN (21:30)
[2018-12-31] MEDS ORDERED: SCOPOLAMINE 1.5 MG (TRANSDERM-SCOP) PATCH TD SCH (21:30)
[2018-12-31] MEDS: PROMETHAZINE INJ 25 MG/ML (PHENERGAN) AMP IM PRN (22:38)
[2019-01-01] MEDS: LACTATED RINGERS 1,000 ML IV SCH ×3 (00:17→17:50)
[2019-01-01 00:45] VITALS: BP 114/71
[2019-01-01] MEDS: ceFAZolin 2 GM IV Premixed 50 ML IV SCH ×2 (04:07→12:26)
[2019-01-01 04:58] VITALS: BP 97/62
[2019-01-01 06:41] LABS: HEMOGLOBIN 9.1 G/DL (11.5-16.0)
[2019-01-01 08:00] VITALS: BP 121/60
--- NOTE | 2019-01-01 08:39 | Progress Note ---
Subjective Date Seen by a Provider: Jan 01, 2019 Time Seen by a Provider: 08:38 Objective Exam Last Set of Vital Signs Vital Signs Date Time Temp Pulse Resp B/P (MAP) Pulse Ox O2 Delivery O2 Flow Rate FiO2 01/01/19 07:01 96 Room Air 01/01/19 04:58 100.8 116 18 97/62 (74) 12/31/18 16:20 5 Capillary Refill : Less Than 3 SecondsLess Than 3 Seconds I&O Intake and Output 01/01/19 00:00 Intake Total 1100 ml Output Total 2600 ml Balance -1500 ml Intake Oral 50 ml IV Total 1050 ml Output Urine Total 2450 ml Estimated Blood Loss 150 ml # Voids 2 Daily Weight Change No No Results Lab Laboratory Tests 01/01/19 05:40: Hemoglobin 9.1#L, Hematocrit 27L Assessment/Plan Assessment/Plan Assess & Plan/Chief Complaint LEFT HIP FRACTURE CHRONIC SEIZURE DISORDER FRAILTY CHRONIC NEUTROPENIA CHRONIC DEBILITY CHRONIC GENERALIZED WEAKNESS UNDERWEIGHT Clinical Quality Measures DVT/VTE Risk/Contraindication: Risk Factor Score Per Nursin RFS Level Per Nursing on Admit: 4+=Very High MICHAEL LYNNE MD Jan 01, 2019 08:39
[2019-01-01] MEDS: PHENYTOIN 100 MG (DILANTIN) CAP PO SCH ×3 (08:50→20:50)
[2019-01-01] MEDS: ENOXAPARIN 30 MG/0.3 ML (LOVENOX) SYR SC SCH ×2 (08:55→11:56)
[2019-01-01] MEDS ORDERED: NON-FORMULARY MEDICATION 1 EA EA (Lamotrigine 100 MG) PO SCH (09:00)
[2019-01-01] MEDS: PROMETHAZINE INJ 25 MG/ML (PHENERGAN) AMP IM PRN (09:02)
[2019-01-01] MEDS ORDERED: ERGO50006 PO (09:43)
[2019-01-01] MEDS ORDERED: CHOL5000 PO (09:43)
--- NOTE | 2019-01-01 09:44 | NUR ---
PATIENT LISTED HER MEDICATIONS TO ME, I VERIFIED THE PRESCRIPTIONS WITH THE EXT MED HX. SHE STATES SHE TAKES HER PHENYTOIN 3 DAILY X 2 DAYS THEN 4 DAILY X 2 DAYS THEN REPEAT. SHE TAKES THE WEEKLY PRESCRIPTION VITAMIN D DOSE ON THURSDAYS BUT SHE ALSO TAKES 5000 UNITS DAILY OTC. SHE ADMITS SHE IS NOT FAITHFUL AT TAKING THE OTC STRENGTH EVERY DAY. SHE TAKES TYLENOL AND MECLIZINE OTC PRN.
--- NOTE | 2019-01-01 09:54 | Progress Note - Ortho ---
Progress Note Subjective Date of Exam 01/01/19 Chief Complaint Status post cemented bipolar hemiarthroplasty left hip HPI/Events since last exam The patient is 1 day postop cemented bipolar hemiarthroplasty left hip. She states she's having hip pain but no spasms. She has not been up to the chair or up with therapy Medical, Surgical History Unchanged Family History Unchanged Review of Systems Unchanged Allergies: Coded Allergies: No Known Drug Allergies (Unverified , 04/10/18) Home Meds Reported Medications Cholecalciferol (Vitamin D3) (Vitamin D3) 5,000 Unit Capsule, 5000 UNIT PO DAILY, CAP 01/01/19 Ergocalciferol (Vitamin D2) (Vitamin D2) 50,000 Unit Capsule, 18092 UNITS PO Th, CAP 01/01/19 Meclizine HCl (Meclizine HCl) 25 Mg Tablet, 25 MG PO TID PRN for DIZZINESS, TAB 04/14/18 Acetaminophen (Tylenol Extra Strength) 500 Mg Tablet, 500 MG PO Q4H PRN for PAIN-MILD, TAB 04/14/18 Phenytoin Sodium Extended (Phenytoin Sodium Extended) 100 Mg Capsule, PO UD, CAP TAKE 1 CAPSULE THREE TIMES DAILY X 2 DAYS THEN 1 CAPSULE FOUR TIMES DAILY X 2 DAYS THEN REPEAT 04/10/18 Lamotrigine (Lamotrigine) 150 Mg Tablet, 150 MG PO HS 04/03/17 Lamotrigine (Lamotrigine) 100 Mg Tablet, 100 MG PO DAILY 04/03/17 Discontinued Reported Medications Denosumab (Prolia) 60 Mg/1 Ml Disp.syrin, 60 MG SQ Q 6 MONTHS, SYRINGE 04/10/18 Discontinued Scripts Cefdinir (Cefdinir) 300 Mg Capsule, 300 MG PO BID, #12 CAP 0 Refills Prov:JOANA WATKINS MD 07/17/18 Pantoprazole Sodium (Protonix) 40 Mg Tablet.dr, 40 MG PO DAILY, #90 TAB Prov:DARIA NEVAREZ COSTUME CUTTER 04/16/18 Objective Exam Constitutional: [] HEENT: [] Neck: [] Cardiovascular: [] Respiratory: [] Gastrointestinal: [] Genitourinary: [] Skin: [] Back/Spine: [] Extremities: [The dressing is intact left hip. Mild swelling left thigh. No calf tenderness and negative Homans. All alert sensation left foot unchanged from preop. This is a chronic issue. Symmetrical pulses. Good alignment leg with equal rotation compared to the right lower extremity] Neurologic: [] Psychiatric: [] Hematologic/lymphatic/immunologic: [] Vital Signs Vital Signs Date Time Temp Pulse Resp B/P (MAP) Pulse Ox O2 Delivery O2 Flow Rate FiO2 01/01/19 08:00 98.8 120 18 121/60 (80) 96 Room Air 01/01/19 07:01 96 Room Air 01/01/19 04:58 100.8 116 18 97/62 (74) 98 Room Air 01/01/19 02:33 96 Room Air 01/01/19 00:45 98.8 106 16 114/71 (85) 99 Room Air 12/31/18 22:20 98 Room Air 12/31/18 20:29 98.7 104 18 109/70 (83) 97 Room Air 12/31/18 20:15 99 Room Air 12/31/18 18:50 97 Room Air 12/31/18 16:58 98.1 96 20 143/91 (108) 98 Room Air 12/31/18 16:55 94 Room Air 12/31/18 16:45 Room Air 12/31/18 16:30 Room Air 12/31/18 16:30 97.0 16 99 Room Air 12/31/18 16:20 16 100 OxyMask 5 12/31/18 16:15 97.6 20 100 Room Air 12/31/18 16:15 OxyMask 10 12/31/18 16:10 16 100 OxyMask 5 12/31/18 16:00 OxyMask 10 12/31/18 16:00 16 100 OxyMask 10 12/31/18 16:00 98.3 16 100 Room Air 12/31/18 15:50 16 100 OxyMask 10 12/31/18 15:45 OxyMask 10 12/31/18 15:40 24 100 OxyMask 10 12/31/18 15:30 OxyMask 10 12/31/18 15:30 97.2 16 98 OxyMask 10 12/31/18 12:00 98.7 105 18 136/75 (95) 96 Room Air 12/31/18 11:13 97 Room Air I & O 01/01/19 07:00 Intake Total 1150 ml Output Total 2550 ml Balance -1400 ml Lab Results Laboratory Tests 01/01/19 05:40: Hemoglobin 9.1#L, Hematocrit 27L Assessment and Plan Assessment 1 day status post cemented bipolar hemiarthroplasty left hip Problem List Same Plan Physical therapy, walker ambulation weightbearing as tolerated on the left. Out of bed to chair as tolerated Final Diagonsis 1 day status post cemented bipolar hemiarthroplasty left hip for displaced femoral neck fracture Level of the visit: Level 3 Clinical Quality Measures DVT/VTE Risk/Contraindication: Risk Factor Score Per Nursin RFS Level Per Nursing on Admit: 4+=Very High ELISA TAVERAS MD Jan 01, 2019 09:54
--- NOTE | 2019-01-01 11:43 | Physical Therapy Evaluation ---
PT Evaluation-General Medical Diagnosis Admission Date Dec 30, 2018 at 22:47 Medical Diagnosis: bipolar hemiarthroplasty left hip Onset Date: Dec 31, 2018 Therapy Diagnosis Therapy Diagnosis: impaired mobility, strength, endurance Height/Weight Height (Feet): 5 Height (Inches): 5.00 Weight (Pounds): 106 Weight (Ounces): 11.2 Precautions Precautions/Isolations: Fall Prevention, Standard Precautions Weight Bear Status Right Lower Extremity: Right Weight Bearing/Tolerated Left Lower Extremity: Left Weight Bearing/Tolerated Referral Physician: Pierce Varela MD Reason for Referral: Evaluation/Treatment Medical History Additional Medical History Past Medical History Surgeries: Yes (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; RIGHT HIP FX/REPAIR 2009) Gallbladder, 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, Neurological, Orthopedic Respiratory: No Currently Using CPAP: No Currently Using BIPAP: No Cardiac: Yes High Cholesterol Neurological: Yes (LAST SEIZURES-04/07/18) Seizure Disorder, Vertigo Reproductive Disorders: No 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 Sexually Transmitted Disease: No HIV/AIDS: No Genitourinary: Yes Bladder Infection, UTI-Chronic Gastrointestinal: Yes Chronic Constipation, Gall Bladder Disease Musculoskeletal: Yes Rheumatoid Arthritis Endocrine: Yes (BENIGN PITUITARY ADENOMA) HEENT: No Loss of Vision: Bilateral Cancer: No Psychosocial: No Depression Integumentary: No Blood Disorders: Yes (NEUTROPENIA--NORMAL WBC 1.0-1.5) Adverse Reaction/Blood Tranf: No (N/A) Reviewed History: Yes Social History Home: Single Level Current Living Status: Spouse Entry Into Home: Stairs With Railing PT Steps Into Home: 2 Prior/Core FIM Prior Level of Function Therapy Code Descriptions/Definitions Functional [place] Measure: 0=Not Assessed/NA 4=Minimal Assistance 1=Total Assistance 5=Supervision or Setup 2=Maximal Assistance 6=Modified [place] 3=Moderate Assistance 7=Complete [place] Therapy Quality Codes: 6 Independent with activity with or without an assistive device 5 Patient requires set up or clean up by helper. Patient completes activity by themselves 4 Supervision or touching assist (CGA). [place] provide cues , steadying assist 3 The helper provides less than half the effort to complete the activity 2 The helper provides more than half the effort to complete the activity 1 Dependent. The helper does all the effort to complete an activity 7 Patient refused to complete or attempt activity 9 The patient did not perform the activity before the current illness or injury 88 Not attempted due to Medical conditions or safety concerns Functional Abilities and Goals: Independent: Patient completed the activities by him/herself, with or without an assistive device, with no assistance from a helper. Needed Some Help: Patient needed partial assistance from another person to complete activities. Dependent: A helper completed the activities for the patient. Unknown: Not Applicable: Bed Mobility: 6 Transfers (B,C,W/C) (FIM): 6 Gait: 6 Stairs: 6 Indoor Mobility (Ambulation): Independent Stairs: Independent patient uses a rolling walker PT Evaluation-Current Subjective Patient in bed pre tx, agrees to PT, she is very anxious, has no pain at rest but states once she moves she has a lot of it. Patient has a basin by her and she states she has been nauseated off and on. Pt/Family Goals to be independent at home Objective Patient Orientation: Person, Place, Situation Attachments: Sanchez Catheter, IV ROM/Strength ROM Lower Extremities NT Strength Lower Extremities NT due to pain Sensory Hearing: Functional Sensation Right Lower Extremit: Intact Sensation Left Lower Extremity: Intact Transfers Therapy Code Descriptions/Definitions Functional [place] Measure: 0=Not Assessed/NA 4=Minimal Assistance 1=Total Assistance 5=Supervision or Setup 2=Maximal Assistance 6=Modified [place] 3=Moderate Assistance 7=Complete [place] Transfers (B, C, W/C) (FIM): 1 Scootin Rollin Supine to/from Sit: 1 Sit to/from Stand: 1 bed t/f WC(FIM only if WC use): 1 Patient resists supine to sit and transfers due to pain. Patient seems unwilling to bear weight even through her right leg even with cues to do so. She seem to be unable to bear much weight through her arms either. Patient alves sferred to recliner with a virtually dependent transfer, patient passes out during transfer and comes to slowly, BP 109/52 and O2 96%. Nurse comes to room to assess patient. Balance Sitting Static: Poor Sitting Dynamic: Poor Standing Static: Poor Standing Dynamic: Poor Treatment None, patient nauseated and groggy, nurse gave her more pain meds. Assessment/Needs Patient has impaired mobility, strength, endurance. She passed out during transfer, is dependent for bed mobility and transfers. Rehab Potential: Guarded PT Short Term Goals Short Term Goals Time Frame: Jan 08, 2019 Transfers (B,C,W/C) (FIM): 3 Gait (FIM): 1 Gait Distance Comment: 20' Gait Level of Assist: 3 Gait Assistive Device: FWW PT Plan Problem List Problem List: Activity Tolerance, Functional Strength, Safety, Balance, Gait, Transfer, Bed Mobility, ROM Treatment/Plan Treatment Plan: Continue Plan of Care Treatment Plan: Bed Mobility, Concurrent Therapy, Education, Functional Activity Reji, Functional Strength, Gait, Safety, Therapeutic Exercise, Transfers Treatment Duration: Jan 08, 2019 Frequency: 11 times per week Estimated Hrs Per Day: .25 hour per day Patient and/or Family Agrees t: Yes Safety Risks/Education Patient Education: Transfer Techniques, Reviewed Precautions, Correct Positioning, Safety Issues Teaching Recipient: Patient Teaching Methods: Demonstration, Discussion Response to Teaching: Reinforcement Needed Discharge Recommendations Plan Patient will perform bed mobility and transfer training, balance and endurance training, functional strengthening, stair training, gait training, and education, to improve functional mobility and independence at home. Therapy D/C Recommendations: Home w/ Family Support, Assisted (TCU/NH) Time/GCodes Time In: 1100 Time Out: 1115 Total Billed Treatment Time: 15 Total Billed Treatment 1 visit SHAW 15' JESUS DEY PT Jan 01, 2019 11:43
[2019-01-01 12:00] VITALS: BP 113/57
[2019-01-01] MEDS ORDERED: PROMETHAZINE INJ 25 MG/ML (PHENERGAN) AMP IVP PRN (13:15)
--- NOTE | 2019-01-01 13:39 | Physical Therapy Daily Note ---
PT Daily Note-Current Subjective Patient in recliner pre tx, agrees to PT, has no pain at rest but much pain with activity. Appearance Patient in bed post tx with nurse call, phone, tray, all needs met. SCD's on and abduction pillow on. Mental Status Patient Orientation: Person, Place, Situation Attachments: Sanchez Catheter, IV Transfers Therapy Code Descriptions/Definitions Functional [place] Measure: 0=Not Assessed/NA 4=Minimal Assistance 1=Total Assistance 5=Supervision or Setup 2=Maximal Assistance 6=Modified [place] 3=Moderate Assistance 7=Complete [place] Therapy Quality Codes: 6 Independent with activity with or without an assistive device 5 Patient requires set up or clean up by helper. Patient completes activity by themselves 4 Supervision or touching assist (CGA). [place] provide cues , steadying assist 3 The helper provides less than half the effort to complete the activity 2 The helper provides more than half the effort to complete the activity 1 Dependent. The helper does all the effort to complete an activity 7 Patient refused to complete or attempt activity 9 The patient did not perform the activity before the current illness or injury 88 Not attempted due to Medical conditions or safety concerns Transfers (B, C, W/C) (FIM): 1 Scootin Rollin Supine to/from Sit: 1 Sit to/from Stand: 1 Bed to/from Chair: 1 Patient resists movement, dependent for sit to stand and transfer back to bed. She was not able to bear any weight on her legs and seemed unable to assist with her arms. Weight Bearing Right Lower Extremity: Right Weight Bearing/Tolerated Left Lower Extremity: Left Weight Bearing/Tolerated Exercises Supine Ex: Ankle pumps, Quad Set, Heel Slides, Short Arc Quads Supine Reps: 10 Treatments bed mobility and transfers, LE exercise Assessment Current Status: Poor Progress Patient dependent with mobility. PT Short Term Goals Short Term Goals Time Frame: Jan 08, 2019 Transfers (B,C,W/C) (FIM): 3 Gait (FIM): 1 Gait Distance Comment: 20' Gait Level of Assist: 3 Gait Assistive Device: FWW PT Plan Problem List Problem List: Activity Tolerance, Functional Strength, Safety, Balance, Gait, Transfer, Bed Mobility, ROM Treatment/Plan Treatment Plan: Continue Plan of Care Treatment Plan: Bed Mobility, Concurrent Therapy, Education, Functional Activity Reji, Functional Strength, Gait, Safety, Therapeutic Exercise, Transfers Treatment Duration: Jan 08, 2019 Frequency: 11 times per week Estimated Hrs Per Day: .25 hour per day Patient and/or Family Agrees t: Yes Safety Risks/Education Patient Education: Transfer Techniques, Reviewed Precautions, Correct Positioning, Safety Issues Teaching Recipient: Patient Teaching Methods: Demonstration, Discussion Response to Teaching: Reinforcement Needed Time/GCodes Time In: 1315 Time Out: 1330 Total Billed Treatment Time: 15 Total Billed Treatment 1 visit FA [place]' JESUS DEY PT Jan 01, 2019 13:39
--- NOTE | 2019-01-01 13:45 | Occupational Therapy Eval ---
OT Evaluation-General/PLF Medical Diagnosis Admission Date Dec 30, 2018 at 22:47 Medical Diagnosis: bipolar hemiarthroplasty left hip Onset Date: Dec 31, 2018 Therapy Diagnosis Therapy Diagnosis: Decreased ADL skills Height/Weight Height (Feet): 5 Height (Inches): 5.00 Weight (Pounds): 106 Weight (Ounces): 11.2 Precautions Precautions/Isolations: Fall Prevention, Standard Precautions Safety Interventions: None Weight Bear Status Weight Bearing Restriction: Weight Bearing/Tolerated Referral Physician: Pierce Varela MD Referral Reason: Activity Tolerance, Self Care, Evaluation/Treatment, Strengthening/ROM Medical History Pertinent Medical History: Rheumatoid Arthritis Additional Medical History Chronically debilitated, home bound, chronic neutopenia, seizure disorder Current History Pt. fell at home and sustained left hip fx. Reviewed History: Yes Social History Home: Single Level Current Living Status: Spouse Entry Into Home: Stairs With Railing Steps Into Home: 4 ADL-Prior Level of Function Therapy Code Descriptions/Definitions Functional [place] Measure: 0=Not Assessed/NA 4=Minimal Assistance 1=Total Assistance 5=Supervision or Setup 2=Maximal Assistance 6=Modified [place] 3=Moderate Assistance 7=Complete [place] Therapy Quality Codes: 6 Independent with activity with or without an assistive device 5 Patient requires set up or clean up by helper. Patient completes activity by themselves 4 Supervision or touching assist (CGA). [place] provide cues , steadying assist 3 The helper provides less than half the effort to complete the activity 2 The helper provides more than half the effort to complete the activity 1 Dependent. The helper does all the effort to complete an activity 7 Patient refused to complete or attempt activity 9 The patient did not perform the activity before the current illness or injury 88 Not attempted due to Medical conditions or safety concerns Functional Abilities and Goals: Independent: Patient completed the activities by him/herself, with or without an assistive device, with no assistance from a helper. Needed Some Help: Patient needed partial assistance from another person to complete activities. Dependent: A helper completed the activities for the patient. Unknown: Not Applicable: ADL PLOF Comments Pt. reports that she was able to complete basic self care skills at home. Does report that spouse is with her as well at times when she ambulates. Uses walker at home. Self Care: Unknown Functional Cognition: Unknown DME/Equipment: Bath Bench, Tub/Shower DME/Equipment Comments Pt. has walker and wheelchair. OT Current Status Subjective Pt. reports 10/10 pain in left hip. Pt. yells out when therapy assists her. Nursing has given pt. pain medication, and is giving pt. more. Appearance Pt. in bed. Pt has difficulty keeping eyes open stating that its due to the medication. Very apprehensive about getting up to chair with therapy. Mental Status/Objective Patient Orientation: Person, Place Attachments: IV, Oxygen Current Upper Extremity ROM WFL ADL-Treatment Therapy Code Descriptions/Definitions Functional [place] Measure: 0=Not Assessed/NA 4=Minimal Assistance 1=Total Assistance 5=Supervision or Setup 2=Maximal Assistance 6=Modified [place] 3=Moderate Assistance 7=Complete [place] Therapy Quality Codes: 6 Independent with activity with or without an assistive device 5 Patient requires set up or clean up by helper. Patient completes activity by themselves 4 Supervision or touching assist (CGA). [place] provide cues , steadying assist 3 The helper provides less than half the effort to complete the activity 2 The helper provides more than half the effort to complete the activity 1 Dependent. The helper does all the effort to complete an activity 7 Patient refused to complete or attempt activity 9 The patient did not perform the activity before the current illness or injury 88 Not attempted due to Medical conditions or safety concerns Lower Body Dressing (FIM): 1 Transfers (B, C, W/C) (FIM): 1 Other Treatments OT/PT completed co-treat due to pts' current pain level, mobility level, and need of skilled treatment. Pt. unable to follow cues and yells out in pain when therapy begins to assist her to side of bed. Pt. is educated and encouraged about why it is important for her to move post surgery. Pt. unable to participate and so therapy completes full transfer supine-sit. Dependent of two. OT assists with sitting mobility on side of bed, as pt. is pushing back and will fall backward without assist. PT is facilitating foot placement and transfer to chair. Pt. stands with dependent assist x 2 and then becomes quiet. Is sat on chair and pt. has eyes closed. Does open them immediately, but nursing is notified immediately. Pt's bp is taken and is 98/54. Sats at first are 98%, but quickly drop to 76%. Oxygen is monitored until it is back up to 97%. Nursing in room and is continuing to assess pt. Bp taken again and is 109/52. All needs are met with pt. up in chair. Spouse states that this happens at home at times, and feels that maybe is was due to her pain. Will continue to monitor pt. to treat accordingly. Education OT Patient Education: Correct positioning, Progress toward Goal/Update tx plan, Purpose of tx/functional activities, Reviewed precautions, Rehab process, Transfer techniques Teaching Recipient: Patient, Significant Other Teaching Methods: Demonstration, Discussion Response to Teaching: Verbalize Understanding, Unable to Return Demonstration OT Short Term Goals Short Term Goals Time Frame: Jan 08, 2019 Eating(FIM): 5 Grooming(FIM): 4 Bathing(FIM): 3 Upper Body Dressing(FIM): 4 Lower Body Dressing(FIM): 3 Toileting(FIM): 3 Transfers (B,C,W/C) (FIM): 3 Toilet/Commode Transfer(FIM): 3 Additional Short Term Goals: 1-Demonstrate ADL Tasks, 2-Verbalize Und erstanding, 3-ImproveStrength/Reji 1=Demonstrate adherence to instructed precautions during ADL tasks. 2=Patient will verbalize/demonstrate understanding of assistive devices/modifications for ADL. 3=Patient will improve strength/tolerance for activity to enable patient to perform ADL's. OT Alf Goals Gas[employer] Catalyst Operator Goals Time Frame: Jan 15, 2019 Eating (FIM): 5 Grooming(FIM): 5 Bathing(FIM): 4 Upper Body Dressing(FIM): 5 Lower Body Dressing(FIM): 4 Toileting(FIM): 4 Transfers (B,C,W/C) (FIM): 4 Toilet/Commode Transfer(FIM): 4 Additional Goals: 1-Demonstrate ADL Tasks, 2-Verbalize Understanding, 3- ImproveStrength/Reji 1=Demonstrate adherence to instructed precautions during ADL tasks. 2=Patient will verbalize/demonstrate understanding of assistive devices/modifications for ADL. 3=Patient will improve strength/tolerance for activity to enable patient to perform ADL's. OT Education/Plan Problem List/Assessment Assessment: Decreased Activ Tolerance, Decreased UE Strength, Dependent Transfers, Impaired Bed Mobility, Impaired Cognition, Impaired Funct Balance, Impaired I ADL's, Impaired Self-Care Skills, Restricted Funct UE ROM Discharge Recommendations Plan/Recommendations: Continue POC Therapy D/C Recommendations: 24 hr Supervision Treatment Plan/Plan of Care Treatment,Training & Education: Yes Patient would benefit from OT for education, treatment and training to promote independence in ADL's, mobility, safety and/or upper extremity function for ADL's. Plan of Care: ADL Retraining, Caregiver Training, Functional Mobility, UE Funct Exercise/Act Treatment Duration: Jan 15, 2019 Frequency: 5 times per week Estimated Hrs Per Day: .25 hour per day Agreement: Yes Rehab Potential: Guarded Time/GCodes Start Time: 11:00 Stop Time: 11:30 Total Time Billed (hr/min): 15 Billed Treatment Time 8487-1390 PT eval, no charge [id number] OT walter, 1, EVH x 15minutes DAYANARA PLASCENCIA OT Jan 01, 2019 13:44
--- NOTE | 2019-01-01 14:49 | NUR ---
CM/SS, respond to consult, visited with patient's spouse Jose Guadalupe Hartman and son Jose J Hartman. Patient appears very ill/pale and has had varied medical challenges all day. Patient was reviewed for inpatient rehab, does not appear able to endure the intensity of that therapy level. Per Yeny, physician already told patient her next step will be community nursing facility and they have been embracing this as a family. After discussion, provided family with list of local facilities along with underwriter solicitation director contact information. They plan to tour and also discuss preferences with Dr. Zepeda before making a decision. Once facility known, referral will be completed. CARE Assessment pending.
--- NOTE | 2019-01-01 14:56 | Anesthesia-General Post-Op ---
General Patient Condition Mental Status/LOC: Same as Preop Cardiovascular: Satisfactory Nausea/Vomiting: Absent Respiratory: Satisfactory Pain: Controlled Complications: Absent Post Op Complications Complications None Follow Up Care/Instructions Patient Instructions None needed. Anesthesia/Patient Condition Patient Condition Patient is doing well, no complaints, stable vital signs, no apparent adverse anesthesia problems. No complications reported per nursing. RAFAT HILLMAN CRNA Jan 01, 2019 14:56
[2019-01-01 16:02] VITALS: BP 122/76
[2019-01-01] MEDS ORDERED: PHENYTOIN 100 MG (DILANTIN) CAP PO SCH (17:00)
[2019-01-01 19:55] VITALS: BP 118/70
[2019-01-01] MEDS: HYDROcodone/APAP 5 MG/325 MG (LORTAB) TAB PO PRN (20:51)
[2019-01-02] VITALS (11 sets, daily range): BP systolic 104–125; BP diastolic 53–71
[2019-01-02] MEDS: LACTATED RINGERS 1,000 ML IV SCH (04:18)
[2019-01-02] MEDS: fentaNYL INJECTION 100 MCG/2 ML AMP IV PRN (04:18)
[2019-01-02 06:57] LABS: HEMOGLOBIN 6.1 G/DL (11.5-16.0)
--- NOTE | 2019-01-02 08:35 | Progress Note ---
Subjective Date Seen by a Provider: Jan 02, 2019 Time Seen by a Provider: 08:30 Objective Exam Last Set of Vital Signs Vital Signs Date Time Temp Pulse Resp B/P (MAP) Pulse Ox O2 Delivery O2 Flow Rate FiO2 01/02/19 04:29 99.5 116 18 105/65 (78) 90 Room Air 01/01/19 20:00 5.00 Capillary Refill : Less Than 3 SecondsLess Than 3 Seconds I&O Intake and Output 01/02/19 00:00 Intake Total 1800 ml Output Total 1150 ml Balance 650 ml Intake Oral 1200 ml IV Total 600 ml Output Urine Total 1150 ml # Urine Diapers 2 Results Lab Laboratory Tests 01/02/19 06:27: Hemoglobin 6.1#*L, Hematocrit 18*L Microbiology 12/31/18 MRSA Screen - Final, Complete MRSA not isolated Assessment/Plan Assessment/Plan Assess & Plan/Chief Complaint LEFT HIP FRACTURE CHRONIC SEIZURE DISORDER FRAILTY CHRONIC NEUTROPENIA CHRONIC DEBILITY CHRONIC GENERALIZED WEAKNESS UNDERWEIGHT Clinical Quality Measures DVT/VTE Risk/Contraindication: Risk Factor Score Per Nursin RFS Level Per Nursing on Admit: 4+=Very High MICHAEL LYNNE MD Jan 02, 2019 08:35
[2019-01-02] MEDS: ENOXAPARIN 30 MG/0.3 ML (LOVENOX) SYR SC SCH ×2 (08:47→08:51)
[2019-01-02] MEDS: HYDROcodone/APAP 5 MG/325 MG (LORTAB) TAB PO PRN (08:48)
[2019-01-02] MEDS: PHENYTOIN 100 MG (DILANTIN) CAP PO SCH ×3 (08:48→20:34)
[2019-01-02] MEDS ORDERED: NS IV 500 ML 500 ML IV SCH (09:00)
--- NOTE | 2019-01-02 09:32 | Physical Therapy Daily Note ---
PT Daily Note-Current Subjective Patient in bed pre tx, agrees to PT, has no complaints of pain at rest but has severe pain with activity. Appearance Patient in recliner post tx with nurse call, phone, tray, all needs met, nurse in room. Mental Status Patient Orientation: Normal For Age Attachments: Sanchez Catheter, IV Transfers Therapy Code Descriptions/Definitions Functional [place] Measure: 0=Not Assessed/NA 4=Minimal Assistance 1=Total Assistance 5=Supervision or Setup 2=Maximal Assistance 6=Modified [place] 3=Moderate Assistance 7=Complete [place] Therapy Quality Codes: 6 Independent with activity with or without an assistive device 5 Patient requires set up or clean up by helper. Patient completes activity by themselves 4 Supervision or touching assist (CGA). [place] provide cues , steadying assist 3 The helper provides less than half the effort to complete the activity 2 The helper provides more than half the effort to complete the activity 1 Dependent. The helper does all the effort to complete an activity 7 Patient refused to complete or attempt activity 9 The patient did not perform the activity before the current illness or injury 88 Not attempted due to Medical conditions or safety concerns Transfers (B, C, W/C) (FIM): 1 Scootin Rollin Supine to/from Sit: 2 Sit to/from Stand: 2 Bed to/from Chair: 1 Patient was able to stand x5 at the edge of the bed but only for a few seconds each time. She stands quickly and flops down to sit also quickly and not safely, patient give directions on how to use hands to improve safety and to sit slowly but she is not able to. Patient is very anxious. She is not able to take any small steps to the recliner on her own. She is either unwilling or unable to bear weight just on her right leg and arms. Patient had to be dependently transferred to recliner by therapist and she did not bear any weight on her legs (not even her right leg) even with instructions to do so. Weight Bearing Right Lower Extremity: Right Weight Bearing/Tolerated Left Lower Extremity: Left Weight Bearing/Tolerated Exercises Seated Therapy Exercises: Ankle pumps, Long arc quads Seated Reps: 15 Treatments bed mobility and transfers, LE exercise Assessment Current Status: Poor Progress still dependent for transfer PT Short Term Goals Short Term Goals Time Frame: Jan 08, 2019 Transfers (B,C,W/C) (FIM): 3 Gait (FIM): 1 Gait Distance Comment: 20' Gait Level of Assist: 3 Gait Assistive Device: FWW PT Plan Problem List Problem List: Activity Tolerance, Functional Strength, Safety, Balance, Gait, Transfer, Bed Mobility, ROM Treatment/Plan Treatment Plan: Continue Plan of Care Treatment Plan: Bed Mobility, Concurrent Therapy, Education, Functional Activity Reji, Functional Strength, Gait, Safety, Therapeutic Exercise, Transfers Treatment Duration: Jan 08, 2019 Frequency: 11 times per week Estimated Hrs Per Day: .25 hour per day Patient and/or Family Agrees t: Yes Safety Risks/Education Patient Education: Transfer Techniques, Reviewed Precautions, Correct Positioning, Safety Issues Teaching Recipient: Patient Teaching Methods: Demonstration, Discussion Response to Teaching: Reinforcement Needed Time/GCodes Time In: 907 Time Out: 925 Total Billed Treatment Time: 18 Total Billed Treatment 1 visit FA 18' JESUS DEY PT Jan 02, 2019 09:32
--- NOTE | 2019-01-02 10:26 | Progress Note - Ortho ---
Progress Note Subjective Date of Exam 01/02/19 Chief Complaint Postop day number 2 cemented bipolar hemiarthroplasty left hip HPI/Events since last exam The patient was up sitting in the chair when I evaluated her. She is complaining of continued hip pain but less spasm. She is presently being tr ansfused with 2 units packed red blood cells as her hemoglobin this morning was 6.1. No other complaints Review of Systems No additions or changes Allergies: Coded Allergies: No Known Drug Allergies (Unverified , 04/10/18) Home Meds Reported Medications Cholecalciferol (Vitamin D3) (Vitamin D3) 5,000 Unit Capsule, 5000 UNIT PO DAILY, CAP 01/01/19 Ergocalciferol (Vitamin D2) (Vitamin D2) 50,000 Unit Capsule, 91104 UNITS PO Th, CAP 01/01/19 Meclizine HCl (Meclizine HCl) 25 Mg Tablet, 25 MG PO TID PRN for DIZZINESS, TAB 04/14/18 Acetaminophen (Tylenol Extra Strength) 500 Mg Tablet, 500 MG PO Q4H PRN for PAIN-MILD, TAB 04/14/18 Phenytoin Sodium Extended (Phenytoin Sodium Extended) 100 Mg Capsule, PO UD, CAP TAKE 1 CAPSULE THREE TIMES DAILY X 2 DAYS THEN 1 CAPSULE FOUR TIMES DAILY X 2 DAYS THEN REPEAT 04/10/18 Lamotrigine (Lamotrigine) 150 Mg Tablet, 150 MG PO HS 04/03/17 Lamotrigine (Lamotrigine) 100 Mg Tablet, 100 MG PO DAILY 04/03/17 Discontinued Reported Medications Denosumab (Prolia) 60 Mg/1 Ml Disp.syrin, 60 MG SQ Q 6 MONTHS, SYRINGE 04/10/18 Discontinued Scripts Cefdinir (Cefdinir) 300 Mg Capsule, 300 MG PO BID, #12 CAP 0 Refills Prov:JOANA WATKINS MD 07/17/18 Pantoprazole Sodium (Protonix) 40 Mg Tablet.dr, 40 MG PO DAILY, #90 TAB Prov:DARIA NEVAREZ APRN 04/16/18 Objective Exam Constitutional: [] HEENT: [] Neck: [] Cardiovascular: [] Respiratory: [] Gastrointestinal: [] Genitourinary: [] Skin: [] Back/Spine: [] Extremities: [Her left leg is in good position. No calf tenderness negative Homans. Still altered sensation in both feet present preoperatively. I peeled back her dressing as best I could loss she is sitting in chair in her incision looks good without redness or drainage] Neurologic: [] Psychiatric: [] Hematologic/lymphatic/immunologic: [] Vital Signs Vital Signs Date Time Temp Pulse Resp B/P (MAP) Pulse Ox O2 Delivery O2 Flow Rate FiO2 01/02/19 09:50 98.4 115 18 107/58 94 Room Air 01/02/19 09:27 98.4 118 18 104/58 95 Room Air 01/02/19 08:00 98 Room Air 01/02/19 08:00 100.5 115 18 106/57 (73) 97 Room Air 01/02/19 04:29 99.5 116 18 105/65 (78) 90 Room Air 01/02/19 00:46 99.4 111 20 106/65 (79) 95 Room Air 01/01/19 20:00 98 Room Air 5.00 01/01/19 19:55 99.2 120 22 118/70 (86) 98 Room Air 01/01/19 16:02 99.5 89 22 122/76 (91) 98 Room Air 01/01/19 12:00 98.2 123 18 113/57 (75) 98 Room Air I & O 01/02/19 06:59 Intake Total 3150 ml Output Total 800 ml Balance 2350 ml Lab Results Laboratory Tests 01/02/19 06:27: Hemoglobin 6.1#*L, Hematocrit 18*L Microbiology 12/31/18 MRSA Screen - Final, Complete MRSA not isolated Assessment and Plan Assessment 2 days postop cemented bipolar hemiarthroplasty left hip Problem List Unchanged other than acute blood loss anemia from her left hip fracture and intraoperative and postop bleeding Plan Plancontinue with physical therapy weightbearing as tolerated on the left. Dressing change today. Final Diagonsis Status post cemented bipolar hemiarthroplasty left hip for displaced femoral neck fracture Acute blood loss anemia as a result of her left hip fracture, intra-and postop bleeding from the surgery Level of the visit: Level 3 Clinical Quality Measures DVT/VTE Risk/Contraindication: Risk Factor Score Per Nursin RFS Level Per Nursing on Admit: 4+=Very High ELISA TAVERAS MD Jan 02, 2019 10:26
[2019-01-02] MEDS ORDERED: POLYETHYLENE GLYCOL 17 GM (MIRALAX) PACK PO ONE (11:00)
[2019-01-02] MEDS ORDERED: FUROSEMIDE 40 MG/4 ML INJ (LASIX) IVP ONE (12:00)
--- NOTE | 2019-01-02 12:01 | Occupational Ther Daily Note ---
OT Current Status-Daily Note Subjective No pain reported. Appearance Pt. is up in chair. Mental Status/Objective Patient Orientation: Person, Place Therapy Code Descriptions/Definitions Functional [place] Measure: 0=Not Assessed/NA 4=Minimal Assistance 1=Total Assistance 5=Supervision or Setup 2=Maximal Assistance 6=Modified [place] 3=Moderate Assistance 7=Complete [place] Attachments: IV Pt. receiving blood transfusion. ADL-Treatment Grooming (FIM): 5 (SBA to wash face, brush hair, and brush teeth.) Attempted treatment earlier in day but physician came into room to talk with pt. and family. OT let pt. know that treatment would occur later. OT came back in late morning. Pt. is up in chair. Pt. has transferred there with PT assist. OT offers to assist pt. back to bed. Pt. reports that she would like to wait until her spouse gets there, and to eat lunch up in chair. Pt. states that she needs to scoot back in chair. Pt. attempts to do this with OT cues, but pt. is actually already back into chair. Pt. unable to assist self with right LE in sitting. Pt. agrees to complete full grooming tasks. Brushed hair, teeth, and washed face while seated in bed. All needs met while up in chair. Education OT Patient Education: Correct positioning, Modified ADL techniques, Progress toward Goal/Update tx plan, Purpose of tx/functional activities, Reviewed precautions, Rehab process, Transfer techniques Teaching Recipient: Patient Teaching Methods: Demonstration, Discussion Response to Teaching: Verbalize Understanding, Return Demonstration OT Short Term Goals Short Term Goals Time Frame: Jan 08, 2019 Eating(FIM): 5 Grooming(FIM): 4 Bathing(FIM): 3 Upper Body Dressing(FIM): 4 Lower Body Dressing(FIM): 3 Toileting(FIM): 3 Transfers (B,C,W/C) (FIM): 3 Toilet/Commode Transfer(FIM): 3 Additional Short Term Goals: 1-Demonstrate ADL Tasks, 2-Verbalize Understanding, 3-ImproveStrength/Reji 1=Demonstrate adherence to instructed precautions during ADL tasks. 2=Patient will verbalize/demonstrate understanding of assistive devices/modifications for ADL. 3=Patient will improve strength/tolerance for activity to enable patient to perform ADL's. OT Truer Pinion And Wheel Goals Custodial Goals Time Frame: Jan 15, 2019 Eating (FIM): 5 Grooming(FIM): 5 Bathing(FIM): 4 Upper Body Dressing(FIM): 5 Lower Body Dressing(FIM): 4 Toileting(FIM): 4 Transfers (B,C,W/C) (FIM): 4 Toilet/Commode Transfer(FIM): 4 Additional Goals: 1-Demonstrate ADL Tasks, 2-Verbalize Understanding, 3- ImproveStrength/Reji 1=Demonstrate adherence to instructed precautions during ADL tasks. 2=Patient will verbalize/demonstrate understanding of assistive devices/modifications for ADL. 3=Patient will improve strength/tolerance for activity to enable patient to perform ADL's. OT Education/Plan Problem List/Assessment Assessment: Decreased Activ Tolerance, Decreased UE Strength, Dependent Transfers, Impaired Bed Mobility, Impaired Funct Balance, Impaired I ADL's, Impaired Self-Care Skills Discharge Recommendations Plan/Recommendations: Continue POC Therapy D/C Recommendations: 24 hr Supervision, Fdc (TCU/NH) Treatment Plan/Plan of Care Treatment,Training & Education: Yes Patient would benefit from OT for education, treatment and training to promote independence in ADL's, mobility, safety and/or upper extremity function for ADL's. Plan of Care: ADL Retraining, Caregiver Training, Functional Mobility, UE Funct Exercise/Act Treatment Duration: Jan 15, 2019 Frequency: 5 times per week Estimated Hrs Per Day: .25 hour per day Agreement: Yes Rehab Potential: Guarded Time/GCodes Start Time: 11:05 Stop Time: 11:20 Total Time Billed (hr/min): 15 Billed Treatment Time 1, ADL DAYANARA PLASCENCIA OT Jan 02, 2019 12:01
--- NOTE | 2019-01-02 13:24 | Physical Therapy Daily Note ---
PT Daily Note-Current Subjective Patient in recliner pre tx, agrees to PT, has no pain at rest but significant pain in left leg with activity. Patient would like to stay in the recliner after PT. Appearance Patient in recliner post tx with nurse call, phone, tray, all needs met, legs elevated, family in the room. Mental Status Patient Orientation: Person, Place, Situation Attachments: Sanchez Catheter, IV Transfers Therapy Code Descriptions/Definitions Functional [place] Measure: 0=Not Assessed/NA 4=Minimal Assistance 1=Total Assistance 5=Supervision or Setup 2=Maximal Assistance 6=Modified [place] 3=Moderate Assistance 7=Complete [place] Therapy Quality Codes: 6 Independent with activity with or without an assistive device 5 Patient requires set up or clean up by helper. Patient completes activity by themselves 4 Supervision or touching assist (CGA). [place] provide cues , steadying assist 3 The helper provides less than half the effort to complete the activity 2 The helper provides more than half the effort to complete the activity 1 Dependent. The helper does all the effort to complete an activity 7 Patient refused to complete or attempt activity 9 The patient did not perform the activity before the current illness or injury 88 Not attempted due to Medical conditions or safety concerns Transfers (B, C, W/C) (FIM): 1 Patient needs cues for hand placement, resists sitting forward to stand. Patient continues to not bear weight through either leg and resists movement in general even with cues. She stands twice and is dependent both times. Weight Bearing Right Lower Extremity: Right Weight Bearing/Tolerated Left Lower Extremity: Left Weight Bearing/Tolerated Exercises Seated Therapy Exercises: Ankle pumps, Long arc quads Seated Reps: 15 Treatments standing, LE exercises Assessment Current Status: Poor Progress no change in mobility, patient resists movement PT Short Term Goals Short Term Goals Time Frame: Jan 08, 2019 Transfers (B,C,W/C) (FIM): 3 Gait (FIM): 1 Gait Distance Comment: 20' Gait Level of Assist: 3 Gait Assistive Device: FWW PT Plan Problem List Problem List: Activity Tolerance, Functional Strength, Safety, Balance, Gait, Transfer, Bed Mobility, ROM Treatment/Plan Treatment Plan: Continue Plan of Care Treatment Plan: Bed Mobility, Concurrent Therapy, Education, Functional Activity Reji, Functional Strength, Gait, Safety, Therapeutic Exercise, Transfers Treatment Duration: Jan 08, 2019 Frequency: 11 times per week Estimated Hrs Per Day: .25 hour per day Patient and/or Family Agrees t: Yes Safety Risks/Education Patient Education: Correct Positioning, Safety Issues Teaching Recipient: Patient Teaching Methods: Demonstration, Discussion Response to Teaching: Reinforcement Needed Time/GCodes Time In: 1305 Time Out: 1320 Total Billed Treatment Time: 15 Total Billed Treatment 1 visit FA [place]' JESUS DEY PT Jan 02, 2019 13:24
--- NOTE | 2019-01-02 15:28 | NUR ---
CM/SS. Next step in discharge planning. Patient/family have chosen [facility] for post acute care, referral completed. Their preference is private room, they will accept shared bath if necessary. Possible discharge tomorrow, to be determined by patient's overall status. CARE Assessment pending.
[2019-01-02] MEDS ORDERED: POLYETHYLENE GLYCOL 17 GM (MIRALAX) PACK ONE (16:16)
[2019-01-02] MEDS ORDERED: PHENYTOIN 100 MG (DILANTIN) CAP PO SCH (17:00)
[2019-01-02] MEDS: SENNA W/DOCUSATE (SENOKOT S) TABLET PO SCH (20:33)
[2019-01-03] VITALS: BP 117/68
[2019-01-03] MEDS: LACTATED RINGERS 1,000 ML IV SCH (02:58)
[2019-01-03 04:00] VITALS: BP 127/59
[2019-01-03 05:45] LABS: HEMOGLOBIN 9.9 G/DL (11.5-16.0)
[2019-01-03 06:00] LABS: BUN/CREATININE RATIO 15; CALCIUM 7.9 MG/DL (8.5-10.1); CARBON DIOXIDE 23 MMOL/L (21-32); CHLORIDE 100 MMOL/L (98-107); CREATININE SERUM 0.62 MG/DL (0.60-1.30); GFR ESTIMATED > 60; GLUCOSE 100 MG/DL (70-105); POTASSIUM 3.2 MMOL/L (3.6-5.0); SODIUM 133 MMOL/L (135-145)
[2019-01-03 08:00] VITALS: BP 128/71
[2019-01-03] MEDS ORDERED: POLY17PO6 PO (08:44)
[2019-01-03] MEDS ORDERED: ONDA4TAB11 PO (08:44)
[2019-01-03] MEDS ORDERED: ASPI-983 PO (08:44)
[2019-01-03] MEDS ORDERED: FAMO20TA45 PO (08:44)
[2019-01-03] MEDS ORDERED: SENN-20 PO (08:44)
[2019-01-03] MEDS ORDERED: ENOX30DI4 SC (08:44)
[2019-01-03] MEDS ORDERED: ACHD5005 PO (08:44)
[2019-01-03] MEDS ORDERED: KCL 20 MEQ TAB (K-DUR) PO NR (08:45)
--- NOTE | 2019-01-03 08:47 | Discharge Inst-Skilled Nursing ---
Discharge Inst-Skilled NF Patient Instructions Patient Problems: LEFT HIP FRACTURE SEIZURE DISORDER CHRONIC ANEMIA Goal: HOME WITH TO CARE FOR HER WITH HOME HEALTH Consult/Follow Up/Orders Follow Up Appt.: 1 [facility] 1 [facility]K WITH ORTHOPEDIC SURGEON Skilled NF Admit to: [facility] Certification ([facility]) I certify that SNF services are required to be given on an inpatient basis because of the above named patient's need for senior living care on a continuing basis for the conditions(s) for which he/she was receiving inpatient hospital services prior to his/her transfer to the SNF. Fdc Facility Order: Nursing Services, Calibrator Barometers-Evaluate & Treat, Physical Therapy-Evaluate & Treat Oxygen Delivery Method: Room Air Discharge Diet: No Restrictions Daily Activity as Tolerated: Yes New & Resume Previous Orders Michael Zepeda Jan 03, 2019 08:45 Pneu Vac Indicated: Yes MICHAEL ZEPEDA MD Jan 03, 2019 08:47
--- NOTE | 2019-01-03 08:48 | NUR ---
Initial visit with pt and her of 50+ years, Jose Guadalupe. Jose Guadalupe shared that it is emotionally painful for them that the pt needs to go to a long-term home for therapy. He does not wish to be from her, and empathized with the challenges this will likewise present to her. The pt has been homebound for approx. 2 months, and she misses shopping and going for car rides. The pt is of an independent nature, and this served her while Jose Guadalupe worked for [employer] because his job necessitated that they move once a year, on average--while they raised two boys. The pt took on responsibilities of moving the family, etc. Their sons are now in their 50's. One lives in [place] and the other is a police district switchboard operator living in [place]. The pt and Jose Guadalupe have a new grandchild, which is a source of jaxson to them in this emotionally challenging time. They describe strong and supportive relationships with their children. Both are [employer] and have been longtime members of [employer] [facility] [employer] t[employer], however work and now health have limited their involvement. Both shared how they integrate their aleksandra and hope in God, reflecting upon Guan[place]' suffering upon the cross to derive meaning and comfort in their situation. They shared the reality of holding the questions of life and trust in God simultaneously. This quartz orientator offered active listening, provided further information and reassurance about [facility], and facilitated meaningful reflection. When Dr. Varela came into see the pt, I offered the pt her privacy for their visit.
--- NOTE | 2019-01-03 08:50 | Discharge Summary ---
Diagnosis/Chief Complaint Date of Admission Dec 30, 2018 at 22:47 Date of Discharge Discharge Date: Jan 03, 2019 Discharge Time: 1100 Discharge Summary Discharge Physical Examination Allergies: Coded Allergies: No Known Drug Allergies (Unverified , 04/10/18) Vitals & I&Os Vital Signs Date Time Temp Pulse Resp B/P (MAP) Pulse Ox O2 Delivery O2 Flow Rate FiO2 01/03/19 04:00 97.0 98 22 127/59 (81) 99 Room Air 01/01/19 20:00 5.00 Hospital Course Pending Labs Laboratory Tests 01/03/19 05:16: Hemoglobin 9.9, Hematocrit 29, Sodium Level 133, Potassium Level 3.2, Chloride Level 100, Carbon Dioxide Level 23, Anion Gap 10, Blood Urea Nitrogen 9, Creat inine 0.62, Estimat Glomerular Filtration Rate > 60, BUN/Creatinine Ratio 15, Glucose Level 100, Calcium Level 7.9 Discharge Instructions to patient/family Please see electronic discharge instructions given to patient. Discharge Medications Reviewed and agree with Discharge Medication list on patient's Discharge Instruction sheet Clinical Quality Measures DVT/VTE Risk/Contraindication: Risk Factor Score Per Nursin RFS Level Per Nursing on Admit: 4+=Very High MICHAEL LYNNE MD Jan 03, 2019 08:50
[2019-01-03] MEDS: PHENYTOIN 100 MG (DILANTIN) CAP PO SCH (08:59)
[2019-01-03] MEDS: ENOXAPARIN 30 MG/0.3 ML (LOVENOX) SYR SC SCH (09:00)
[2019-01-03] MEDS: SENNA W/DOCUSATE (SENOKOT S) TABLET PO SCH (09:00)
--- NOTE | 2019-01-03 09:10 | Progress Note - Ortho ---
Progress Note Subjective Date of Exam 01/03/19 Chief Complaint Postoperative day number 3 cemented bipolar hemiarthroplasty left hip HPI/Events since last exam Patient continues with left hip pain although it is decreasing. She denies any radiation of pain down the leg. Review of Systems Reviewed and no additions or changes Allergies: Coded Allergies: No Known Drug Allergies (Unverified , 04/10/18) Home Meds Active Scripts Famotidine (Pepcid AC) 20 Mg Tablet, 20 MG PO BID, #60 TAB 1 Refill Prov:MICHAEL LYNNE MD 01/03/19 Aspirin (Aspirin EC) 81 Mg Tablet.dr, 81 MG PO DAILY, #20 TAB Prov:MICHAEL LYNNE MD 01/03/19 Polyethylene Glycol 3350 (Miralax) 17 Gm Powd.pack, 17 GM PO HS, #30 EACH 1 Refill Prov:MICHAEL LYNNE MD 01/03/19 Ondansetron (Ondansetron Odt) 4 Mg Tab.rapdis, 4 MG PO Q6H PRN for NAUSEA/VOMITING-1ST LINE, #30 TAB 1 Refill Prov:MICHAEL LYNNE MD 01/03/19 Sennosides/Docusate Sodium (Senna-Time S Tablet) 1 Each Tablet, 2 EA PO BID, #120 TAB HOLD FOR LOOSE STOOLS Prov:MICHAEL LYNNE MD 01/03/19 Hydrocodone Bit/Acetaminophen (Hydrocodone/Acetaminophen 5/325mg Tablet) 1 Tab Tab, 1 TAB PO Q4H PRN for PAIN-MODERATE, #60 TAB Prov:MICHAEL LYNNE MD 01/03/19 Enoxaparin Sodium (Enoxaparin Sodium) 30 Mg/0.3 Ml Syringe, 30 MG SC DAILY, #7 SYRINGE Prov:MICHAEL LYNNE MD 01/03/19 Reported Medications Cholecalciferol (Vitamin D3) (Vitamin D3) 5,000 Unit Capsule, 5000 UNIT PO DAILY, CAP 01/01/19 Ergocalciferol (Vitamin D2) (Vitamin D2) 50,000 Unit Capsule, 43355 UNITS PO Th, CAP 01/01/19 Meclizine HCl (Meclizine HCl) 25 Mg Tablet, 25 MG PO TID PRN for DIZZINESS, TAB 04/14/18 Acetaminophen (Tylenol Extra Strength) 500 Mg Tablet, 500 MG PO Q4H PRN for PAIN-MILD, TAB 04/14/18 Phenytoin Sodium Extended (Phenytoin Sodium Extended) 100 Mg Capsule, PO UD, CAP TAKE 1 CAPSULE THREE TIMES DAILY X 2 DAYS THEN 1 CAPSULE FOUR TIMES DAILY X 2 DAYS THEN REPEAT 04/10/18 Lamotrigine (Lamotrigine) 150 Mg Tablet, 150 MG PO HS 04/03/17 Lamotrigine (Lamotrigine) 100 Mg Tablet, 100 MG PO DAILY 04/03/17 Discontinued Reported Medications Denosumab (Prolia) 60 Mg/1 Ml Disp.syrin, 60 MG SQ Q 6 MONTHS, SYRINGE 04/10/18 Discontinued Scripts Cefdinir (Cefdinir) 300 Mg Capsule, 300 MG PO BID, #12 CAP 0 Refills Prov:JOANA WATKINS MD 07/17/18 Pantoprazole Sodium (Protonix) 40 Mg Tablet.dr, 40 MG PO DAILY, #90 TAB Prov:DARIA NEVAREZ SSIS DEVELOPER 04/16/18 Objective Exam Constitutional: [] HEENT: [] Neck: [] Cardiovascular: [] Respiratory: [] Gastrointestinal: [] Genitourinary: [] Skin: [] Back/Spine: [] Extremities: [Her dressing is intact. Mild swelling left thigh. No calf tenderness and negative Homans. No weakness on dorsiflexion or plantarflexion of the foot and ankle. Altered sensation in both feet unchanged from preop. Leg lengths are equal and good position of the left leg equal to the right] Neurologic: [] Psychiatric: [] Hematologic/lymphatic/immunologic: [] Vital Signs Vital Signs Date Time Temp Pulse Resp B/P (MAP) Pulse Ox O2 Delivery O2 Flow Rate FiO2 01/03/19 04:00 97.0 98 22 127/59 (81) 99 Room Air 01/03/19 00:00 98.4 110 22 117/68 (84) 95 Room Air 01/02/19 23:00 98.4 01/02/19 20:30 Room Air 01/02/19 20:00 100.2 116 20 125/70 (88) 97 Room Air 01/02/19 17:32 100.8 116 16 105/53 94 Room Air 01/02/19 16:00 99.4 111 22 123/71 (88) 100 Room Air 01/02/19 13:54 98.2 102 18 118/68 92 Room Air 01/02/19 13:30 99.2 78 18 114/54 99 Room Air 01/02/19 12:00 100.7 100 18 116/68 (84) 97 Room Air 01/02/19 09:50 98.4 115 18 107/58 94 Room Air 01/02/19 09:27 98.4 118 18 104/58 95 Room Air I & O 01/03/19 07:00 Intake Total 2020 ml Output Total 1900 ml Balance 120 ml Lab Results Laboratory Tests 01/03/19 05:16: Hemoglobin 9.9#L, Hematocrit 29L, Sodium Level 133L, Potassium Level 3.2L, Chloride Level 100, Carbon Dioxide Level 23, Anion Gap 10, Blood Urea Nitrogen 9, Creatinine 0.62, Estimat Glomerular Filtration Rate > 60, BUN/Creatinine Ratio 15, Glucose Level 100, Calcium Level 7.9L Microbiology 12/31/18 MRSA Screen - Final, Complete MRSA not isolated Assessment and Plan Assessment 3 days postop cemented bipolar hemiarthroplasty left hip Problem List Unchanged Plan Continue with physical therapy, walker ambulation weightbearing as tolerated on the left. Dressing change every other day. Patient states she may be going to rehabilitation and if so I'll see her in rehabilitation or she'll follow-up in the office in approximately 2 weeks postop for repeat x-rays and staple removal Final Diagonsis Cemented bipolar hemiarthroplasty left hip for displaced femoral neck fracture Acute blood loss anemia secondary to fracture, intra-and post operative blood loss Level of the visit: Level 3 Clinical Quality Measures DVT/VTE Risk/Contraindication: Risk Factor Score Per Nursin RFS Level Per Nursing on Admit: 4+=Very High ELISA TAVERAS MD Jan 03, 2019 09:10
[2019-01-03] MEDS ORDERED: BISACODYL 10 MG SUPP (DULCOLAX) PR NR (09:15)
--- NOTE | 2019-01-03 10:46 | NUR ---
CM/SS. Patient discharged today to Medicare skilled placement with [facility] via their transport scheduled for 1100. [facility] understands to provide wheelchair for transport. Patient's spouse and son are here with her at this time. CARE Assessment completed with patient, processed with [facility]. Faxed orders and CARE to [facility], prepared packet to accompany patient. Unit RN fully updated for timeline and arrangements.
[2019-01-03 11:00] VITALS: BP 128/71
--- NOTE | 2019-01-03 11:11 | NUR ---
PT STABLE AT TIME OF DISCHARGE. TAKEN OFF FLOOR VIA WHEELCHAIR BY [facility] [place] STAFF. DISCHARGE PACKET AND WRITTEN PRESCRIPTION GIVEN TO STAFF. 1125 REPORT WAS GIVEN TO [place] RN WILL CALL THIS NURSE WITH ANY QUESTIONS/CONCERNS. ALL BELONGINGS SENT WITH PT.
[2019-01-04] MEDS ORDERED: VITAMIN D2 50,000 UNITS (1.25 MG) CAP PO SCH (09:00)
== END 2019-01-03 11:11 | DRG 470 ==
LOC: EDUNIT# 21:56 → ER 21:57 → 4TH 22:47
PROVIDERS: ADMIT Internal Medicine; ATTEND Family Medicine
PROC: 0SRS019 Replacement of Left Hip Joint, Femoral Surface with Metal Synthetic Substitute, Cemented, Open Approach (ICD-10-PCS; principal; 2018-12-31 13:34)
DX: S72.002A Fracture of unspecified part of neck of left femur, initial encounter for closed fracture (principal); D62 Acute posthemorrhagic anemia; Z68.1 Body mass index [BMI] 19.9 or less, adult; G40.909 Epilepsy, unspecified, not intractable, without status epilepticus; R42 Dizziness and giddiness; M06.9 Rheumatoid arthritis, unspecified; E78.00 Pure hypercholesterolemia, unspecified; K59.09 Other constipation; F32.9 Major depressive disorder, single episode, unspecified; R26.81 Unsteadiness on feet; R29.6 Repeated falls; R53.81 Other malaise; R53.1 Weakness; R63.6 Underweight; D70.2 Other drug-induced agranulocytosis; T45.1X5A Adverse effect of antineoplastic and immunosuppressive drugs, initial encounter; W19.XXXA Unspecified fall, initial encounter; Y92.008 Other place in unspecified non-institutional (private) residence as the place of occurrence of the external cause; Z96.641 Presence of right artificial hip joint; Z86.018 Personal history of other benign neoplasm
CPT/HCPCS: 36415; 71045; 73501; 80048; 80053; 81000; 83735; 85014; 85018; 85025; 85610; 86850; 86900; 86901; 86920; 87081; 93005; 94664; 94760; 96374; 96375

== ENCOUNTER → 2019-01-16 | Outpatient (CLI) | payer MEDICARE, OTHER ==
[~2019-01-16] MED LIST changes: +ASPI-983 PO; +CHOL5000 PO; +ENOX30DI4 SC; +ERGO50006 PO; +FAMO20TA45 PO; +ONDA4TAB11 PO; +POLY17PO6 PO; +SENN-20 PO
--- NOTE | 2019-01-16 14:47 | Diagnostic Imaging Report ---
Indication: Left hip surgery. Time of exam 1:44 PM Correlation is made with prior radiograph from 12/31/18. Left hip hemiarthroplasty is noted. Prosthetic elements appear to be in good position. No fracture loosening is seen. Impression: Satisfactory postop left hip. Dictated by: Dictated on workstation # [id number]
== END ==
LOC: ORTHO 13:28
PROVIDERS: ATTEND Orthopaedic Surgery
DX: Z96.642 Presence of left artificial hip joint (principal); Z98.890 Other specified postprocedural states
CPT/HCPCS: 73501

== ENCOUNTER → 2019-02-06 | Outpatient (CLI) | payer MEDICARE, OTHER | LOC: ORTHO 13:46 | PROVIDERS: ATTEND Orthopaedic Surgery | DX: Z96.642 Presence of left artificial hip joint (principal); Z98.890 Other specified postprocedural states ==

== ENCOUNTER → 2019-02-25 | Outpatient (CLI) | payer MEDICARE, OTHER ==
[2019-02-25 12:42] LABS: BASOPHILS % (AUTO) 1 % (0-10); EOSINOPHILS % (AUTO) 1 % (0-10); HEMATOCRIT 36 % (35-52); LYMPHOCYTES # (AUTO) 0.7 X 10^3 (1.0-4.0); LYMPHOCYTES % (AUTO) 45 % (12-44); MEAN CORPUSCULAR HEMOGLOBIN 30 PG (25-34); MEAN CORPUSCULAR HGB CONC 33 G/DL (32-36); MEAN CORPUSCULAR VOLUME 91 FL (80-99); MEAN PLATELET VOLUME 9.1 FL (7.4-10.4); MONOCYTES # (AUTO) 0.4 X 10^3 (0.0-1.0); MONOCYTES % (AUTO) 24 % (0-12); NEUTROPHILS # (AUTO) 0.5 X 10^3 (1.8-7.8); NEUTROPHILS % (AUTO) 31 % (42-75); PLATELET COUNT 146 10^3/uL (130-400); RED CELL DISTRIBUTION WIDTH 13.4 % (10.0-14.5); WHITE BLOOD COUNT 1.7 10^3/uL (4.3-11.0)
[2019-02-25 12:57] LABS: ALBUMIN 3.7 GM/DL (3.2-4.5); BILIRUBIN,TOTAL 0.4 MG/DL (0.1-1.0); CALCIUM 8.4 MG/DL (8.5-10.1); CREATININE SERUM 0.92 MG/DL (0.60-1.30); POTASSIUM 3.3 MMOL/L (3.6-5.0); TOTAL PROTEIN 7.4 GM/DL (6.4-8.2)
[2019-02-25 13:04] LABS: BAND NEUTROPHILS 5 %; LYMPHOCYTES % (MANUAL) 44 %; MONOCYTES % (MANUAL) 26 %; NEUTROPHILS % (MANUAL) 25 %; RBC MORPH NORMAL
== END ==
LOC: LABNPT 12:25
PROVIDERS: ATTEND Family Medicine
DX: G40.89 Other seizures (principal); D70.8 Other neutropenia
CPT/HCPCS: 80053; 85007; 85027

== ENCOUNTER → 2019-05-14 | Outpatient (CLI) | payer MEDICARE, OTHER ==
[~2019-05-14] VITALS: Ht 165 cm; Wt 51.2 kg
[~2019-05-14] MED LIST changes: +DENOSUMAB 60 MG/1 ML (PROLIA) SQ ONE
[2019-05-14 13:20] VITALS: BP 109/61
== END ==
LOC: SDC 12:56
PROVIDERS: ATTEND Nurse Practitioner Family
DX: M81.0 Age-related osteoporosis without current pathological fracture (principal)
CPT/HCPCS: 96372

== ENCOUNTER 2019-10-20 21:20 | Emergency (ER) | payer MEDICARE, OTHER ==
[~2019-10-20] VITALS: Ht 165 cm; Wt 51.2 kg
[~2019-10-20 21:20] MED LIST changes: -DENOSUMAB 60 MG/1 ML (PROLIA) SQ ONE; -LAMO100T PO; +LAMO100T5 PO; -LAMO150T2 PO; +LAMO150T4 PO; -MECL-106 PO; +MECL-149 PO
[2019-10-20] MEDS ORDERED: NS IV 500 ML 500 ML IV ONE (21:30)
--- NOTE | 2019-10-20 21:37 | ED General ---
General Chief Complaint: General Problems/Pain Stated Complaint: SEIZURE History of Present Illness Date Seen by Provider: October 20, 2019 Time Seen by Provider: 21:35 Initial Comments 74-year-old female presents via EMS after having a 15 to 20 second seizure at home. When EMS arrived, she was at baseline, talking and acting appropriately. No incontinence with the seizure. Her reports that she's had epilepsy for approximately 35 years. Last seizure was 12-18 months ago. She's been having headaches over the last few days and taking Tylenol as needed. She has not had her Dilantin level checked in over 2 months. She's been having nausea and eating less over the last week. She has stayed home with no exposure to any known persons with COVID-19. Timing/Duration: 1/2 Hour Severity: Mild Associated Systoms: No Chest Pain, No Cough, No Diaphoresis, No Fever/Chills; Headaches, Loss of Appetite, Malaise, Nausea/Vomiting; No Rash; Seizure; No Shortness of Air, No Syncope; Weakness (generalized) Allergies and Home Medications Allergies Coded Allergies: No Known Drug Allergies (Unverified , 04/10/18) Home Medications Acetaminophen 500 Mg Tablet, 500 MG PO Q4H PRN for PAIN-MILD, (Reported) Aspirin 81 Mg Tablet.dr, 81 MG PO DAILY Prescribed by: MICHAEL ZEPEDA on 01/03/19843 Cholecalciferol (Vitamin D3) 5,000 Unit Capsule, 5,000 UNIT PO DAILY, (Reported) Enoxaparin Sodium 30 Mg/0.3 Ml Syringe, 30 MG SC DAILY Prescribed by: MICHAEL ZEPEDA on 01/03/19843 Ergocalciferol (Vitamin D2) 50,000 Unit Capsule, 50,000 UNITS PO Th, (Reported) Famotidine 20 Mg Tablet, 20 MG PO BID Prescribed by: MICHAEL ZEPEDA on 01/03/19 08 Hydrocodone Bit/Acetaminophen 1 Tab Tab, 1 TAB PO Q4H PRN for PAIN-MODERATE Prescribed by: MICHAEL ZEPEDA on 01/03/19843 Lamotrigine 100 Mg Tablet, 100 MG PO DAILY, (Reported) Lamotrigine 150 Mg Tablet, 150 MG PO HS, (Reported) Meclizine HCl 25 Mg Tablet, 25 MG PO TID PRN for DIZZINESS, (Reported) Ondansetron 4 Mg Tab.rapdis, 4 MG PO Q6H PRN for NAUSEA/VOMITING-1ST LINE Prescribed by: MICHAEL ZEPEDA on 01/03/19843 Phenytoin Sodium Extended 100 Mg Capsule, PO UD, (Reported) TAKE 1 CAPSULE THREE TIMES DAILY X 2 DAYS THEN 1 CAPSULE FOUR TIMES DAILY X 2 DAYS THEN REPEAT Polyethylene Glycol 3350 17 Gm Powd.pack, 17 GM PO HS Prescribed by: MICHAEL ZEPEDA on 01/03/19843 Sennosides/Docusate Sodium 1 Each Tablet, 2 EA PO BID HOLD FOR LOOSE STOOLS Prescribed by: MICHAEL ZEPEDA on 01/03/19843 Patient Home Medication List Home Medication List Reviewed: Yes Review of Systems Review of Systems Constitutional: see HPI, malaise, weakness, weight loss EENTM: see HPI, no symptoms reported Respiratory: no symptoms reported, see HPI Cardiovascular: no symptoms reported, see HPI Gastrointestinal: see HPI; No abdominal pain, No diarrhea; nausea; No vomiting Psychiatric/Neurological: See HPI, Headache, Seizure All Other Systems Reviewed Negative Unless Noted: Yes Past Tztgkfs-Ijgbsv-Cnazxg Hx Past Med/Social Hx: Reviewed Nursing Past Med/Soc Hx Patient Social History Alcohol Use: Denies Use Recreational Drug Use: No 2nd Hand Smoke Exposure: No Recent Hopitalizations: No Immunizations Up To Date Tetanus Booster (TDap): Unknown PED Vaccines UTD: No Seasonal Allergies Seasonal Allergies: No Past Medical History Surgeries: Yes (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; RIGHT HIP FX/REPAIR 2009) Gallbladder, 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, Neurological, Orthopedic Respiratory: No Currently Using CPAP: No Currently Using BIPAP: No Cardiac: Yes High Cholesterol Neurological: Yes (LAST SEIZURES-04/07/18) Brain Tumor, Seizure Disorder, Vertigo Reproductive Disorders: No 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 Sexually Transmitted Disease: No HIV/AIDS: No Genitourinary: Yes Bladder Infection, UTI-Chronic Gastrointestinal: Yes Chronic Constipation, Gall Bladder Disease Musculoskeletal: Yes Rheumatoid Arthritis Endocrine: Yes (BENIGN PITUITARY ADENOMA) HEENT: No Loss of Vision: Bilateral Cancer: No Psychosocial: No Depression Integumentary: No Blood Disorders: Yes (NEUTROPENIA--NORMAL WBC 1.0-1.5) Adverse Reaction/Blood Tranf: No (N/A) Family Medical History Benign neoplasm pituitary gland and craniopharyngeal duct G8 BROTHER, Onset:Unknown Completed stroke 19 FATHER, , Onset:60 years & older 19 MOTHER, , Onset:60 years & older FH: epilepsy G8 SISTER, Onset:Unknown Physical Exam Vital Signs Vital Signs - First Documented 10/20/19 21:33 Temp 36.8 Pulse 135 Resp 27 B/P (MAP) 148/74 (98) Capillary Refill : Height, Weight, BMI Height: 5'5.00" Weight: 106lbs. 11.2oz. 48.798584xi; 17.8 BMI Method:Stated General Appearance: No Apparent Distress, WD/WN, Cachetic Eyes: Bilateral Eye Normal Inspection, Bilateral Eye PERRL, Bilateral Eye EOMI HEENT: PERRL/EOMI, TMs Normal, Normal ENT Inspection, Pharynx Normal, Moist Mucous Membranes Neck: Full Range of Motion, Normal Inspection, Non Tender, Supple Respiratory: Chest Non Tender, Lungs Clear, Normal Breath Sounds Cardiovascular: Regular Rate, Rhythm, No Edema, No Murmur, Normal Peripheral Pulses Gastrointestinal: Normal Bowel Sounds, Non Tender, Soft Neurologic/Psychiatric: Alert, Oriented x3, No Motor/Sensory Deficits, Normal Mood/Affect, Other (Oriented to person and place, could not state year or day of week) Skin: Normal Color, Warm/Dry Progress/Results/Core Measures Suspected Sepsis SIRS Temperature: Pulse: Respiratory Rate: Laboratory Tests 10/20/19 21:30: White Blood Count 3.6L Blood Pressure / Mean: Laboratory Tests 10/20/19 21:30: Creatinine 0.89, Platelet Count 210, Total Bilirubin 0.4 Results/Orders Lab Results Laboratory Tests Test 10/20/19 21:30 Range/Units White Blood Count 3.6 L 4.3-11.0 10^3/uL Red Blood Count 4.57 4.35-5.85 10^6/uL Hemoglobin 13.8 11.5-16.0 G/DL Hematocrit 40 35-52 % Mean Corpuscular Volume 88 80-99 FL Mean Corpuscular Hemoglobin 30 25-34 PG Mean Corpuscular Hemoglobin Concent 35 32-36 G/DL Red Cell Distribution Width 13.4 10.0-14.5 % Platelet Count 210 130-400 10^3/uL Mean Platelet Volume 9.1 7.4-10.4 FL Neutrophils (%) (Auto) 40 L 42-75 % Lymphocytes (%) (Auto) 41 12-44 % Monocytes (%) (Auto) 14 H 0-12 % Eosinophils (%) (Auto) 5 0-10 % Basophils (%) (Auto) 0 0-10 % Neutrophils # (Auto) 1.4 L 1.8-7.8 X 10^3 Lymphocytes # (Auto) 1.5 1.0-4.0 X 10^3 Monocytes # (Auto) 0.5 0.0-1.0 X 10^3 Eosinophils # (Auto) 0.2 0.0-0.3 10^3/uL Basophils # (Auto) 0.0 0.0-0.1 10^3/uL Sodium Level 139 135-145 MMOL/L Potassium Level 3.3 L 3.6-5.0 MMOL/L Chloride Level 100 98-107 MMOL/L Carbon Dioxide Level 19 L 21-32 MMOL/L Anion Gap 20 H 5-14 MMOL/L Blood Urea Nitrogen 16 7-18 MG/DL Creatinine 0.89 0.60-1.30 MG/DL Estimat Glomerular Filtration Rate > 60 BUN/Creatinine Ratio 18 Glucose Level 182 H 70-105 MG/DL Calcium Level 9.6 8.5-10.1 MG/DL Corrected Calcium 9.6 8.5-10.1 MG/DL Total Bilirubin 0.4 0.1-1.0 MG/DL Aspartate Amino Transf (AST/SGOT) 19 5-34 U/L Alanine Aminotransferase (ALT/SGPT) 6 0-55 U/L Alkaline Phosphatase 116 40-136 U/L Total Protein 8.2 6.4-8.2 GM/DL Albumin 4.0 3.2-4.5 GM/DL My Orders Orders - LEVON CUNHA Cbc With Automated Diff (10/20/19 21:29) Comprehensive Metabolic Panel (10/20/19 21:29) Thyroid Analyzer (10/20/19 21:29) Ed Iv/Invasive Line Start (10/20/19 21:30) Ns Iv 500 Ml (Sodium Chloride 0.9%) (10/20/19 21:30) Dilantin (Phenytoin) (10/20/19 21:33) Ondansetron Injection (Zofran Injectio (10/20/19 21:45) Ct Head Wo (10/20/19 21:42) Rx-Ondansetron Po (Rx-Zofran Po) (10/20/19 22:19) Medications Given in ED Current Medications Medications Dose Ordered Sig/Edward Route Start Time Stop Time Status Last Admin Dose Admin Ondansetron HCl 4 mg ONCE ONCE IVP 10/20/19 21:45 10/20/19 21:46 DC 10/20/19 21:45 4 MG Sodium Chloride 500 ml @ 0 mls/hr Q0M ONCE IV 10/20/19 21:30 10/20/19 21:31 DC 10/20/19 21:45 999 MLS/HR Vital Signs/I&O 10/20/19 21:33 Temp 36.8 Pulse 135 Resp 27 B/P (MAP) 148/74 (98) Capillary Refill : Progress Note : Time: 21:35 Progress Note Patient seen and evaluated, will obtain labs, CT head, normal saline 500 ML's, Zofran 4 mg IV for pain. 2220 Results discussed with patient and by phone. No acute findings. Dilantin level will be back in a day or two. Discharge instructions and return precautions reviewed, all questions answered. Diagnostic Imaging Diagonstic Imaging: CT Plain Films/CT/US/NM/MRI: head Comments NAME: MELANY STATON [facility] REC#: [id number] PT STATUS: REG ER : 1945 PHYSICIAN: LEVON CUNHA ADMIT DATE: 10/20/19/ER Draft Date of Exam:10/20/19 CT HEAD WO PROCEDURE: CT head without contrast. TECHNIQUE: Multiple contiguous axial images were obtained through the brain without the use of intravenous contrast. Auto Exposure Controls were utilized during the CT exam to meet ALARA standards for radiation dose reduction. INDICATION: Seizure and headache. COMPARISON: CT head of 07/17/2018. FINDINGS: No hyperdense hemorrhage or space-occupying mass. No hydrocephalus or midline shift. Old lacunar infarct involving the left caudate and basal ganglia is unchanged. Periventricular white matter hypoattenuation is also unchanged and due to chronic microvascular ischemic disease. No features of acute territorial infarct. No skull fracture. Paranasal sinuses and mastoid air cells are clear. IMPRESSION: 1. No acute intracranial process by CT. 2. Old lacunar infarct involving the left caudate and basal ganglia is unchanged. Dictated on workstation # [id number] Dict: 10/20/192201 Trans: 10/20/192206 [facility] [id number] Interpreted by: RONNELL SANTAMARIA MD Electronically signed by: Reviewed: Reviewed by Me Departure Impression Primary Impression: Epilepsy Qualified Codes: G40.119 - Localization-related (focal) (partial) symptomatic epilepsy and epileptic syndromes with simple partial seizures, intractable, without status epilepticus Additional Impression: Seizure Disposition: HOME, SELF-CARE Condition: Improved Departure-Patient Inst. Decision time for Depature: 22:20 Referrals: NO,LOCAL PHYSICIAN (PCP/Family) Primary Care Physician Patient Instructions: Seizures, Adult (DC) Add. Discharge Instructions: Schedule follow up with Dr. Zepeda for next week. Give Ensure shakes, 1 can twice daily. Use Tylenol 650 mg every 6 hours for headache. Use Zofran for Nausea. Return to the Emergency Dept for new, urgent healthcare needs. All discharge instructions reviewed with patient and/or family. Voiced understanding. Copy Copies To 1: MICHAEL ZEPEDA MD, AMY ARNP October 20, 2019 21:37
[2019-10-20 21:38] LABS: BASOPHILS % (AUTO) 0 % (0-10); EOSINOPHILS # (AUTO) 0.2 10^3/uL (0.0-0.3); EOSINOPHILS % (AUTO) 5 % (0-10); HEMATOCRIT 40 % (35-52); HEMOGLOBIN 13.8 G/DL (11.5-16.0); LYMPHOCYTES # (AUTO) 1.5 X 10^3 (1.0-4.0); LYMPHOCYTES % (AUTO) 41 % (12-44); MEAN CORPUSCULAR HEMOGLOBIN 30 PG (25-34); MEAN CORPUSCULAR HGB CONC 35 G/DL (32-36); MEAN CORPUSCULAR VOLUME 88 FL (80-99); MEAN PLATELET VOLUME 9.1 FL (7.4-10.4); MONOCYTES # (AUTO) 0.5 X 10^3 (0.0-1.0); MONOCYTES % (AUTO) 14 % (0-12); NEUTROPHILS # (AUTO) 1.4 X 10^3 (1.8-7.8); NEUTROPHILS % (AUTO) 40 % (42-75); PLATELET COUNT 210 10^3/uL (130-400); RED CELL DISTRIBUTION WIDTH 13.4 % (10.0-14.5); WHITE BLOOD COUNT 3.6 10^3/uL (4.3-11.0)
[2019-10-20] MEDS ORDERED: ONDANSETRON 4 MG/2 ML (SDV) Z0FRAN IVP ONE (21:45)
[2019-10-20 21:55] LABS: CHLORIDE 100 MMOL/L (98-107); POTASSIUM 3.3 MMOL/L (3.6-5.0); SODIUM 139 MMOL/L (135-145)
[2019-10-20 21:56] LABS: CALCIUM 9.6 MG/DL (8.5-10.1)
[2019-10-20 21:57] LABS: GLUCOSE 182 MG/DL (70-105); TOTAL PROTEIN 8.2 GM/DL (6.4-8.2)
[2019-10-20 21:58] LABS: CARBON DIOXIDE 19 MMOL/L (21-32)
[2019-10-20 21:59] LABS: BILIRUBIN,TOTAL 0.4 MG/DL (0.1-1.0)
[2019-10-20 22:00] LABS: ALKALINE PHOSPHATASE 116 U/L (40-136)
[2019-10-20 22:01] LABS: CREATININE SERUM 0.89 MG/DL (0.60-1.30); GFR ESTIMATED > 60
[2019-10-20 22:02] LABS: BUN/CREATININE RATIO 18
[2019-10-20 22:04] LABS: ALANINE AMINOTRANSFERASE 6 U/L (0-55)
--- NOTE | 2019-10-20 22:07 | Diagnostic Imaging Report ---
PROCEDURE: CT head without contrast. TECHNIQUE: Multiple contiguous axial images were obtained through the brain without the use of intravenous contrast. Auto Exposure Controls were utilized during the CT exam to meet ALARA standards for radiation dose reduction. INDICATION: Seizure and headache. COMPARISON: CT head of 07/17/2018. FINDINGS: No hyperdense hemorrhage or space-occupying mass. No hydrocephalus or midline shift. Old lacunar infarct involving the left caudate and basal ganglia is unchanged. Periventricular white matter hypoattenuation is also unchanged and due to chronic microvascular ischemic disease. No features of acute territorial infarct. No skull fracture. Paranasal sinuses and mastoid air cells are clear. IMPRESSION: 1. No acute intracranial process by CT. 2. Old lacunar infarct involving the left caudate and basal ganglia is unchanged. Dictated by: Dictated on workstation # [id number]
[2019-10-20] MEDS ORDERED: RX-ONDANSETRON 4 MG ODT (ZOFRAN) PPK #4 PO STA (22:19)
[2019-10-20 22:23] LABS: TSH (THYROID ANALYZER) 1.46 UIU/ML (0.35-4.94)
[2019-10-20 22:40] VITALS: BP 148/74
== END 2019-10-20 22:40 | disposition home or self-care (01) ==
LOC: EDUNIT# 21:20 → ER 21:21
DX: G40.909 Epilepsy, unspecified, not intractable, without status epilepticus (principal); Z79.82 Long term (current) use of aspirin; Z79.01 Long term (current) use of anticoagulants
CPT/HCPCS: 36415; 70450; 80053; 80185; 84443; 85025

== ENCOUNTER 2019-11-12 12:53 | Outpatient (CLI) | payer MEDICARE, OTHER ==
[2019-11-12 12:58] VITALS: BP 123/74
[2019-11-12] MEDS ORDERED: DENOSUMAB 60 MG/1 ML (PROLIA) SQ ONE (13:15)
== END 2019-11-12 13:10 | disposition home or self-care (01) ==
LOC: SDC 12:53
PROVIDERS: ATTEND Nurse Practitioner Family
DX: M81.0 Age-related osteoporosis without current pathological fracture (principal)
CPT/HCPCS: 96372

== ENCOUNTER 2021-02-01 01:02 | Inpatient (IN) | payer MEDICARE, OTHER ==
[2021-02-01] VITALS (9 sets, daily range): BP systolic 85–163; BP diastolic 45–92
[~2021-02-01 01:02] MED LIST changes: +ASPI-1238 PO; -ASPI-983 PO; -FOLI0.8T PO; +FOLI0.8T4 PO
[2021-02-01] MEDS ORDERED: NS (IVPB) 100 ML ONE (01:07)
[2021-02-01] MEDS ORDERED: LACTATED RINGERS 1,000 ML IV ONE (01:15)
[2021-02-01 01:18] LABS: BASOPHILS % (AUTO) 0 % (0-10); EOSINOPHILS % (AUTO) 0 % (0-10); HEMATOCRIT 40 % (35-52); HEMOGLOBIN 12.9 g/dL (11.5-16.0); LYMPHOCYTES # (AUTO) 0.6 10^3/uL (1.0-4.0); LYMPHOCYTES % (AUTO) 10 % (12-44); MEAN CORPUSCULAR HEMOGLOBIN 30 pg (25-34); MEAN CORPUSCULAR HGB CONC 32 g/dL (32-36); MEAN CORPUSCULAR VOLUME 92 fL (80-99); MEAN PLATELET VOLUME 9.3 fL (9.0-12.2); MONOCYTES # (AUTO) 0.5 10^3/uL (0.0-1.0); MONOCYTES % (AUTO) 8 % (0-12); NEUTROPHILS # (AUTO) 4.7 10^3/uL (1.8-7.8); NEUTROPHILS % (AUTO) 81 % (42-75); PLATELET COUNT 229 10^3/uL (130-400); WHITE BLOOD COUNT 5.8 10^3/uL (4.3-11.0)
[2021-02-01] MEDS ORDERED: LORazepam INJ 2 MG/ML (ATIVAN) VIAL IVP ONE (01:30)
[2021-02-01 01:33] LABS: ALBUMIN 3.9 GM/DL (3.2-4.5); POTASSIUM 2.9 MMOL/L (3.6-5.0)
[2021-02-01 01:34] LABS: CALCIUM 9.6 MG/DL (8.5-10.1)
[2021-02-01 01:37] LABS: BILIRUBIN,TOTAL 0.3 MG/DL (0.1-1.0)
[2021-02-01 01:39] LABS: CREATININE SERUM 0.99 MG/DL (0.60-1.30)
[2021-02-01 01:42] LABS: MAGNESIUM 2.4 MG/DL (1.6-2.4)
[2021-02-01] MEDS ORDERED: 1/2 NS W/KCL 20 MEQ/L 1,000 ML IV SCH (01:45)
[2021-02-01 01:47] LABS: BILIRUBIN,URINE NEGATIVE (NEGATIVE); CLARITY,URINE SL CLOUDY; COLOR,URINE YELLOW; GLUCOSE, URINE (UA) NEGATIVE (NEGATIVE); KETONES,URINE NEGATIVE (NEGATIVE); LEUKOCYTE ESTERASE ,URINE 2+ (NEGATIVE); NITRITE,URINE NEGATIVE (NEGATIVE); PH,URINE 6.5 (5-9); PROTEIN,URINE 1+ (NEGATIVE)
[2021-02-01 01:50] LABS: CREATINE KINASE MB 1.7 NG/ML (<6.6)
[2021-02-01 01:53] LABS: BACTERIA,URINE LARGE /HPF
[2021-02-01] MEDS ORDERED: cefTRIAXone 1,000 MG in WATER (STERILE) FOR INJECTION 10 ML IV ONE (02:00)
--- NOTE | 2021-02-01 02:01 | Diagnostic Imaging Report ---
EXAMINATION: Chest 1 view HISTORY: Seizure. COMPARISON: 12/30/2018. FINDINGS: The lung volumes are normal. No focal consolidation is seen. No large pleural effusion or pneumothorax is seen. The cardiomediastinal silhouette is normal in size and contour. No acute osseous abnormality is seen. IMPRESSION: 1. No acute pleuroparenchymal process. Dictated by: Dictated on workstation # [id number]
[2021-02-01] MEDS ORDERED: PHENYTOIN INJECTION 1,000 MG in NS (IVPB) 50 ML, 0.2 MICRON FILTER 1 EACH INJ ONE ×3 (03:00)
[2021-02-01] MEDS ORDERED: PHENYTOIN 250 MG/5 ML INJ (DILANTIN) VIAL ONE (03:38)
[2021-02-01] MEDS ORDERED: NS (IVPB) 50 ML ONE (03:39)
[2021-02-01] MEDS ORDERED: RX-ONDANSETRON 4 MG ODT (ZOFRAN) PPK #4 PO STA (04:28)
[2021-02-01] MEDS ORDERED: TAMSULOSIN 0.4 MG (FLOMAX) CAP PO SCH (04:30)
--- NOTE | 2021-02-01 05:21 | ED Neurological Problem ---
General Chief Complaint: Neurological Problems Stated Complaint: SEIZURES/UTI/DEHYDRATION/HYPOKALEMIA Nursing Triage Note: TO ED [facility]IA [facility] TO ROOM 6 ACTIVELY SEIZING. 28FR NASAL TRUMPET PLACED TO LEFT NARE AND 02 VIA OXYMASK APPLIED AT 15L. PT HAS 40 YEAR HX OF SEIZURES. PER EMS PT HAS NOT HAD SEIZURE MEDS FOR 2 DAYS. Source: EMS, spouse Exam Limitations: clinical condition, other (PT IS OBTUNDED) History of Present Illness Date Seen by Provider: Feb 01, 2021 Time Seen by Provider: 00:58 Initial Comments PT ARRIVES VIA EMS FROM HOME PT HAS LONGSTANDING HISTORY OF SEIZURES FOR AT LEAST 40 YEARS REPORTS THAT PT'S LAST SEIZURE WAS ABOUT 2 MONTHS AGO, AND IS MAINTAINED ON THE SAME MEDICATIONS/SAME DOSES FOR A LONG TIME STATES THAT HE DISCOVERED TONIGHT AROUND 2029, THAT PT HAD NOT TAKEN ANY MEDICATION SINCE Tuesday01/27/21 ( HE STATES NORMALLY SHE IS VERY DILIGENT ABOUT TAKING HER MEDICATION, AND HE DOES NOT NORMALLY PAY ANY ATTENTION TO HER MEDICATIONS ) WHEN HE DISCOVERED SHE HAD NOT BEEN TAKING HER MEDICATIONS, HE GAVE HER 2 DOSES OF HER MEDICATIONS ABOUT 2029 TONIGHT HE REPORTS THAT SHE STARTED HAVING A SEIZURE AROUND 2229, THEN HAD A COUPLE MORE, AND SO CALLED EMS EMS REPORT THAT PT WAS "POST ICTAL" AND UNRESPONSIVE WITH SNOROUS BREATHING "AND HER HANDS AND FINGERS WERE CRAMPED UP" SHE BEGAN SEIZING AGAIN ON ARRIVAL, AND THIS CONTINUES SHE IS BEING WHEELED INTO ER. EMS REPORTS THAT PT DID NOT REGAIN CONSCIOUSNESS BETWEEN ANY OF HER SEIZURES ALSO REPORTS THAT PT HAS NOT HAD ANYTHING TO EAT OR DRINK FOR THE LAST 2 DAYS REPORTS THAT PT HAS HAD A GENERAL DECLINE IN HEALTH OVER THE LAST FEW MONTHS ( OR LONGER) --WEIGHS ABOUT 85 LBS NOW, CAN BARELY WALK ANYMORE, VERY FRAIL, AND HAS HAD A GENERAL DECLINE IN APPETITE PT LAST SAW DR. LYNNE A FEW WEEKS AGO FOR ROUTINE EXAM STATES THAT THEY HAVE AN APPOINTMENT ON TUESDAY WITH HOSPICE, AND PLAN ON GETTING PT SET UP WITH THAT PT HAS NOT HAD COVID-19 VACCINE OR HAD A PRIOR COVID-19 INFECTION HE DENIES THAT PT HAS HAD ANY RECENT FEVERS, COUGH, SHORTNESS OF BREATH, VOMITING OR DIARRHEA. PCP: DR. LYNNE Allergies and Home Medications Allergies Coded Allergies: No Known Drug Allergies (Unverified , 04/10/18) Home Medications Acetaminophen 500 Mg Tablet, 500 MG PO Q4H PRN for PAIN-MILD, (Reported) Aspirin 81 Mg Tablet.dr, 81 MG PO DAILY Prescribed by: MICHAEL LYNNE on 01/03/19843 Cholecalciferol (Vitamin D3) 5,000 Unit Capsule, 5,000 UNIT PO DAILY, (Reported) Enoxaparin Sodium 30 Mg/0.3 Ml Syringe, 30 MG SC DAILY Prescribed by: MICHAEL LYNNE on 01/03/19843 Ergocalciferol (Vitamin D2) 50,000 Unit Capsule, 50,000 UNITS PO Th, (Reported) Famotidine 20 Mg Tablet, 20 MG PO BID Prescribed by: MICHAEL LYNNE on 01/03/19843 Hydrocodone Bit/Acetaminophen 1 Tab Tab, 1 TAB PO Q4H PRN for PAIN-MODERATE Prescribed by: MICHAEL LYNNE on 01/03/19843 Lamotrigine 100 Mg Tablet, 100 MG PO DAILY, (Reported) Lamotrigine 150 Mg Tablet, 150 MG PO HS, (Reported) Meclizine HCl 25 Mg Tablet, 25 MG PO TID PRN for DIZZINESS, (Reported) Ondansetron 4 Mg Tab.rapdis, 4 MG PO Q6H PRN for NAUSEA/VOMITING-1ST LINE Prescribed by: MICHAEL LYNNE on 01/03/19843 Phenytoin Sodium Extended 100 Mg Capsule, PO UD, (Reported) TAKE 1 CAPSULE THREE TIMES DAILY X 2 DAYS THEN 1 CAPSULE FOUR TIMES DAILY X 2 DAYS THEN REPEAT Polyethylene Glycol 3350 17 Gm Powd.pack, 17 GM PO HS Prescribed by: MICHAEL LYNNE on 01/03/19843 Sennosides/Docusate Sodium 1 Each Tablet, 2 EA PO BID HOLD FOR LOOSE STOOLS Prescribed by: MICHAEL LYNNE on 01/03/19843 Patient Home Medication List Home Medication List Reviewed: Yes Review of Systems Review of Systems Constitutional: other (UNABLE TO OBTAIN ANY INFORMATION FROM PT) Psychiatric/Neurological: See HPI Past Wpibeky-Facfza-Xusgkb Hx Immunizations Up To Date Tetanus Booster (TDap): Unknown PED Vaccines UTD: No Seasonal Allergies Seasonal Allergies: No Past Medical History Surgery/Hospitalization HX: RIGHT HIP FX/REPAIR 2009 PITUITARY TUMOR REMOVED 2011 HYSTERECTOMY CHOLECYSTECTOMY 03/[address] ARMSTRONG LEFT HIP FRACTURE/REPLACEMENT 12/[address] 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 Sexually Transmitted Disease: No HIV/AIDS: No Genitourinary: Yes Bladder Infection, UTI-Chronic Gastrointestinal: Yes (S/P CHOLECYSTECTOMY) Chronic Constipation, Gall Bladder Disease Musculoskeletal: Yes (BILAT HIP FX'S; FALLS/POOR MOBILITY) Arthritis, Rheumatoid Arthritis, Fractures Endocrine: Yes (BENIGN PITUITARY ADENOMA) HEENT: No Loss of Vision: Bilateral Cancer: No Psychosocial: No Depression Integumentary: No Blood Disorders: Yes (NEUTROPENIA--NORMAL WBC 1.0-1.5) Adverse Reaction/Blood Tranf: No (N/A) Family Medical History Benign neoplasm pituitary gland and craniopharyngeal duct G8 BROTHER, Onset:Unknown Completed stroke 19 FATHER, , Onset:60 years & older 19 MOTHER, , Onset:60 years & older FH: epilepsy G8 SISTER, Onset:Unknown Physical Exam Vital Signs Vital Signs - First Documented 02/01/21 02/01/21 01:02 02:03 Temp 36.8 Pulse 151 Resp 22 B/P (MAP) 122/75 (91) Pulse Ox 100 O2 Delivery OxyMask O2 Flow Rate 15.00 Capillary Refill : Less Than 3 Seconds Height, Weight, BMI Height: 5'5.00" Weight: 106lbs. 11.2oz. 48.968900gt; 18.00 BMI Method:Stated General Appearance: cachetic, other (PT ACTIVELY SEIZING, WITH DUSKINESS TO LIPS AND FINGERS) HEENT: other (NO INTRA-ORAL INJURY) Respiratory: normal breath sounds Cardiovascular: tachycardia Gastrointestinal: soft Extremities: no pedal edema Neurologic/Psychiatric: other (ACTIVELY SEIZING) Progress/Results/Core Measures Results/Orders Lab Results Laboratory Tests Test 02/01/21 01:09 02/01/21 01:35 Range/Units White Blood Count 5.8 4.3-11.0 10^3/uL Red Blood Count 4.34 3.80-5.11 10^6/uL Hemoglobin 12.9 11.5-16.0 g/dL Hematocrit 40 35-52 % Mean Corpuscular Volume 92 80-99 fL Mean Corpuscular Hemoglobin 30 25-34 pg Mean Corpuscular Hemoglobin Concent 32 32-36 g/dL Red Cell Distribution Width 12.2 10.0-14.5 % Platelet Count 229 130-400 10^3/uL Mean Platelet Volume 9.3 9.0-12.2 fL Immature Granulocyte % (Auto) 0 % Neutrophils (%) (Auto) 81 H 42-75 % Lymphocytes (%) (Auto) 10 L 12-44 % Monocytes (%) (Auto) 8 0-12 % Eosinophils (%) (Auto) 0 0-10 % Basophils (%) (Auto) 0 0-10 % Neutrophils # (Auto) 4.7 1.8-7.8 10^3/uL Lymphocytes # (Auto) 0.6 L 1.0-4.0 10^3/uL Monocytes # (Auto) 0.5 0.0-1.0 10^3/uL Eosinophils # (Auto) 0.0 0.0-0.3 10^3/uL Basophils # (Auto) 0.0 0.0-0.1 10^3/uL Immature Granulocyte # (Auto) 0.0 0.0-0.1 10^3/uL Sodium Level 137 135-145 MMOL/L Potassium Level 2.9 L 3.6-5.0 MMOL/L Chloride Level 91 L 98-107 MMOL/L Carbon Dioxide Level 20 L 21-32 MMOL/L Anion Gap 26 H 5-14 MMOL/L Blood Urea Nitrogen 28 H 7-18 MG/DL Creatinine 0.99 0.60-1.30 MG/DL Estimat Glomerular Filtration Rate 55 BUN/Creatinine Ratio 28 Glucose Level 169 H 70-105 MG/DL Calcium Level 9.6 8.5-10.1 MG/DL Corrected Calcium 9.7 8.5-10.1 MG/DL Magnesium Level 2.4 1.6-2.4 MG/DL Total Bilirubin 0.3 0.1-1.0 MG/DL Aspartate Amino Transf (AST/SGOT) 19 5-34 U/L Alanine Aminotransferase (ALT/SGPT) 10 0-55 U/L Alkaline Phosphatase 123 40-136 U/L Total Creatine Kinase 52 29-168 U/L Creatine Kinase MB 1.7 <6.6 NG/ML Myoglobin 197.5 H 10.0-92.0 NG/ML Total Protein 8.0 6.4-8.2 GM/DL Albumin 3.9 3.2-4.5 GM/DL Amylase Level 77 25-125 U/L Lipase 28 8-78 U/L Urine Color YELLOW Urine Clarity SL CLOUDY Urine pH 6.5 5-9 Urine Specific Bath 1.025 H 1.016-1.022 Urine Protein 1+ H NEGATIVE Urine Glucose (UA) NEGATIVE NEGATIVE Urine Ketones NEGATIVE NEGATIVE Urine Nitrite NEGATIVE NEGATIVE Urine Bilirubin NEGATIVE NEGATIVE Urine Urobilinogen 0.2 < = 1.0 MG/DL Urine Leukocyte Esterase 2+ H NEGATIVE Urine RBC (Auto) 1+ H NEGATIVE Urine RBC 5-10 H /HPF Urine WBC 10-25 H /HPF Urine Crystals NONE /LPF Urine Bacteria LARGE H /HPF Urine Casts NONE /LPF Urine Mucus LARGE H /LPF Urine Culture Indicated YES My Orders Orders - VIK SCHAFER DO Accucheck Stat ONCE (02/01/21 01:06) Ed Iv/Invasive Line Start (02/01/21 01:06) Ekg Tracing (02/01/21 01:06) Catheter(Urinary) Insert & Ass 03,15 (02/01/21 01:06) O2 (02/01/21 01:06) Monitor-Rhythm Ecg Trace Only (02/01/21 01:06) Amylase (02/01/21 01:06) Cbc With Automated Diff (02/01/21 01:06) Comprehensive Metabolic Panel (02/01/21 01:06) Creatine Kinase (02/01/21 01:06) Creatine Kinase Mb (02/01/21 01:06) Lipase (02/01/21 01:06) Magnesium (02/01/21 01:06) Ua Culture If Indicated (02/01/21 01:06) Myoglobin Serum (02/01/21 01:06) Chest 1 View, Ap/Pa Only (02/01/21 01:06) Ed Iv/Invasive Line Start (02/01/21 01:06) Lactated Ringers (Lr 1000 Ml Iv Solution (02/01/21 01:15) Levetiracetam Injection (Keppra Injectio (02/01/21 01:15) Dilantin (Phenytoin) (02/01/21 01:10) Levetiracetam Injection (Keppra Injectio (02/01/21 01:07) Ns (Ivpb) (Sodium Chloride 0.9% Ivpb Bag (02/01/21 01:07) Lorazepam Injection (Ativan Injection) (02/01/21 01:30) 1/2 Ns W/Kcl 20 Meq/L (0.45% Sodium Chlo (02/01/21 01:45) Urine Culture (02/01/21 01:35) Ceftriaxone (Rocephin) (02/01/21 02:00) Medications Given in ED Current Medications Medications Dose Ordered Sig/Edward Route Start Time Stop Time Status Last Admin Dose Admin Ceftriaxone Sodium 1000 mg/ Sterile Water 10 ml @ 200 mls/hr ONCE ONCE IV 02/01/21 02:00 02/01/21 02:02 DC 02/01/21 02:53 200 MLS/HR Lactated Ringer's 1,000 ml @ 0 mls/hr Q0M ONCE IV 02/01/21 01:15 02/01/21 01:16 DC 02/01/21 01:22 999 MLS/HR Lorazepam 2 mg ONCE ONCE IVP 02/01/21 01:30 02/01/21 01:31 DC 02/01/21 01:05 2 MG Vital Signs/I&O 02/01/21 02/01/21 01:02 02:03 Temp 36.8 Pulse 151 Resp 22 B/P (MAP) 122/75 (91) Pulse Ox 100 O2 Delivery OxyMask OxyMask O2 Flow Rate 15.00 15.00 Blood Pressure Mean: 91 Progress Progress Note : Progress Note INITIAL O2 SAT 80% WHILE SEIZING PT IMMEDIATELY PLACED IN OXIMASK AND NASAL TRUMPET PLACED AND O2 SATS QUICKLY UP TO 100% PT WAS GIVEN ATIVAN, FOLLOWED BY KEPPRA AND DILANTIN PT HAD NO FURTHER SEIZURES DURING ER STAY, BUT REMAINED OBTUNDED THROUGHOUT ER STAY PT ABLE TO MAINTAIN AIRWAY AND O2 SATS NO DETERIORATION IN PT'S CONDITION DURING ER STAY VITALS REMAINED STABLE LENGTHY DISCUSSION WITH ABOUT CODE STATUS, AND THE UPCOMING VISIT WITH HOSPICE AND THEIR PLAN TO START HER ON HOSPICE. STATES HE "WANTS EVERYTHING DONE" AND "HE IS NOT READY TO LET HER GO YET" DISCUSSED WHETHER SHE HAD ANY WRITTEN ADVANCED DIRECTIVES, AND HE SAYS "SHE HAS PAPERS AT HOME" BUT STATES HE DOES NOT KNOW ABOUT HER WISHES ON RESUSCITATION STATUS. MUCH LATER, RN HAS DISCUSSED HER CODE STATUS AND HAD EXACT SAME CONVERSATION WITH , AND HE NOW REPORTS TO HER THAT PT IS TO BE DNR/DNI. HE DOES NOT WANT CPR DONE OR PT INTUBATED AND PLACED ON VENTILATOR. Initial ECG Impression Date: Feb 01, 2021 Initial ECG Impression Time: 01:17 Initial ECG Rate: 111 Initial ECG Rhythm: S.Tach Initial ECG Impression: Nonspecific Changes Diagnostic Imaging Comments CXR--PER RADIOLOGIST REPORT AT 0538 FINDINGS: The lung volumes are normal. No focal consolidation is seen. No large pleural effusion or pneumothorax is seen. The cardiomediastinal silhouette is normal in size and contour. No acute osseous abnormality is seen. IMPRESSION: 1. No acute pleuroparenchymal process. Reviewed: Reviewed by Me Departure Communication (Admissions) 3--ATTEMPTING TO CONTACT DR. 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 LYNNE'S PATIENTS. MESSAGE LEFT ON CELL [phone]--CALLED DR. Campbell HOLDER'S CELL. NO ANSWER [phone]--CALLED DR. Campbell HOLDER'S CELL. NO ANSWER. MESSAGE LEFT [phone]--CALLED AND SPOKE WITH DR. Campbell HOLDER. ACCEPTS PT FOR ADMIT Impression Primary Impression: Status epilepticus Additional Impressions: Non compliance w medication regimen Dehydration Hypokalemia UTI (urinary tract infection) Disposition: ADMITTED INPATIENT Condition: Stable Admissions Decision to Admit Reason: Admit from ER (General) Decision to Admit/Date: Feb 01, 2021 Time/Decision to Admit Time: 02:45 Departure-Patient Inst. Referrals: NO,LOCAL PHYSICIAN (PCP/Family) Primary Care Physician VIK SCHAFER DO Feb 01, 2021 05:21
[2021-02-01] MEDS ORDERED: ONDANSETRON 4 MG/2 ML (SDV) Z0FRAN IV PRN (06:30)
[2021-02-01] MEDS ORDERED: ACETAMINOPHEN 650 MG SUPP (TYLENOL) PR PRN (06:30)
[2021-02-01] MEDS ORDERED: LORazepam INJ 2 MG/ML (ATIVAN) VIAL IV PRN (06:30)
[2021-02-01] MEDS: D5 1/2 NS W/KCL 20 MEQ/L 1,000 ML IV SCH ×2 (06:41→10:03)
--- NOTE | 2021-02-01 07:22 | History & Physical ---
History of Present Illness History of Present Illness Reason for visit/HPI 75 yo F admitted for minimal responsiveness due to recurrent seizures. She has not had any of her antiseizure medication for 2 days. reported to the ER- that she has not eaten or drank anything for a couple days. Previous seizure was 2 months ago. She is not on any supplemental oxygen at baseline. Her health has been on the decline thus She was actually meeting with hospice tomorrow. At first reported he wanted everything done but then decided to make her DNR. Date of Admission Feb 01, 2021 at 02:15 Date Seen by a Provider: Feb 01, 2021 Time Seen by a Provider: 08:00 I consulted on this patient on 02/01/21 07:17 Attending Physician Mauricio Holder MD Admitting Physician [place],Local Physician Consult Allergies and Home Medications Allergies Coded Allergies: No Known Drug Allergies (Unverified , 04/10/18) Home Medications Acetaminophen 500 Mg Tablet, 500 MG PO Q4H PRN for PAIN-MILD, (Reported) Aspirin 81 Mg Tablet.dr, 81 MG PO DAILY Prescribed by: MICHAEL LYNNE on 01/03/19 0844 Cholecalciferol (Vitamin D3) 5,000 Unit Capsule, 5,000 UNIT PO DAILY, (Reported) Enoxaparin Sodium 30 Mg/0.3 Ml Syringe, 30 MG SC DAILY Prescribed by: MICHAEL LYNNE on 01/03/19 0844 Ergocalciferol (Vitamin D2) 50,000 Unit Capsule, 50,000 UNITS PO Th, (Reported) Famotidine 20 Mg Tablet, 20 MG PO BID Prescribed by: MICHAEL LYNNE on 01/03/19 0844 Hydrocodone Bit/Acetaminophen 1 Tab Tab, 1 TAB PO Q4H PRN for PAIN-MODERATE Prescribed by: MICHAEL LYNNE on 01/03/19 0844 Lamotrigine 100 Mg Tablet, 100 MG PO DAILY, (Reported) Lamotrigine 150 Mg Tablet, 150 MG PO HS, (Reported) Meclizine HCl 25 Mg Tablet, 25 MG PO TID PRN for DIZZINESS, (Reported) Ondansetron 4 Mg Tab.rapdis, 4 MG PO Q6H PRN for NAUSEA/VOMITING-1ST LINE Prescribed by: MICHAEL LYNNE on 01/03/19 0844 Phenytoin Sodium Extended 100 Mg Capsule, PO UD, (Reported) TAKE 1 CAPSULE THREE TIMES DAILY X 2 DAYS THEN 1 CAPSULE FOUR TIMES DAILY X 2 DAYS THEN REPEAT Polyethylene Glycol 3350 17 Gm Powd.pack, 17 GM PO HS Prescribed by: MICHAEL LYNNE on 01/03/19843 Sennosides/Docusate Sodium 1 Each Tablet, 2 EA PO BID HOLD FOR LOOSE STOOLS Prescribed by: MICHAEL LYNNE on 01/03/19843 Patient Home Medication List Home Medication List Reviewed: Yes Past Gwfwzer-Ursrlf-Zygruw Hx Immunizations Up To Date Tetanus Booster (TDap): Unknown Hepatitis A: No Hepatitis B: No PED Vaccines UTD: No Seasonal Allergies Seasonal Allergies: No Current Status Primary Language: Cymraes Preferred Spoken Language: Cymraes Past Medical History Surgeries: Gallbladder, 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, Neurological, Orthopedic Currently Using CPAP: No Currently Using BIPAP: No High Cholesterol Brain Tumor, Seizure Disorder, 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 Sexually Transmitted Disease: No HIV/AIDS: No Bladder Infection, UTI-Chronic Chronic Constipation, Gall Bladder Disease Arthritis, Rheumatoid Arthritis, Fractures Loss of Vision: Bilateral Depression Blood Disorders: Yes (NEUTROPENIA--NORMAL WBC 1.0-1.5) Adverse Reaction/Blood Tranf: No (N/A) Family Medical History Benign neoplasm pituitary gland and craniopharyngeal duct G8 BROTHER, Onset:Unknown Completed stroke 19 FATHER, , Onset:60 years & older 19 MOTHER, , Onset:60 years & older FH: epilepsy G8 SISTER, Onset:Unknown Review of Systems Review of Systems ROS Unable to Obtain: altered mental status Physical Exam Vital Signs Vital Signs - First Documented 02/01/21 02/01/21 01:02 02:03 Temp 36.8 Pulse 151 Resp 22 B/P (MAP) 122/75 (91) Pulse Ox 100 O2 Delivery OxyMask O2 Flow Rate 15.00 Capillary Refill : Less Than 3 Seconds Height, Weight, BMI Height: 5'5.00" Weight: 106lbs. 11.2oz. 48.121861oj; BMI Method:Stated General Appearance: Moderate Distress (restless) HEENT: PERRL/EOMI Neck: Non Tender, Supple Respiratory: Chest Non Tender, Lungs Clear, Normal Breath Sounds Cardiovascular: Regular Rate, Rhythm Gastrointestinal: Non Tender, Soft Rectal: Deferred Extremity: Non Tender, No Calf Tenderness Neurologic/Psychiatric: Disoriented (nonverbal, does not follow directions) Skin: Warm/Dry Assessment/Plan Assessment/Plan Admission Dx altered mental status seizures Admission Status: Inpatient Order (span 2 midnights) Reason for Inpatient Admission: She will need 2 midnights as she has altered mental status and may go into having seizures again. Only reason she will not be here for 2 midnights is if she dies before then. Assessment and Plan 75 yo female admitted for intractable seizures. She was given 1000mg phenytoin- level is pending Keppra 1000mg TID IV. -replacing potassium. recheck this AM. -Noninvasive respiratory support. -ER started her on rocephin- may discontinue if no further suspicion of infection is noted. As it appears her seizure is brought on by not taking medication, electrolyte derangement, and not eating/drinking for couple days. -DNR -Potassium improved- Sodium decreased- changed IVF to D5 NS 20mEq at 100cc/hr. -IVF. Dispo: poor prognosis. She was suppose to talk with hospice tomorrow. Problems: (1) Status epilepticus (2) Hypokalemia (3) Seizures (4) Acute respiratory failure with hypoxia MAURICIO HOLDER MD Feb 01, 2021 07:22
[2021-02-01 08:09] LABS: BASOPHILS % (AUTO) 0 % (0-10); EOSINOPHILS % (AUTO) 0 % (0-10); HEMATOCRIT 39 % (35-52); HEMOGLOBIN 12.7 g/dL (11.5-16.0); LYMPHOCYTES # (AUTO) 0.7 10^3/uL (1.0-4.0); LYMPHOCYTES % (AUTO) 19 % (12-44); MEAN CORPUSCULAR HEMOGLOBIN 30 pg (25-34); MEAN CORPUSCULAR HGB CONC 33 g/dL (32-36); MEAN CORPUSCULAR VOLUME 92 fL (80-99); MEAN PLATELET VOLUME 9.2 fL (9.0-12.2); MONOCYTES # (AUTO) 0.6 10^3/uL (0.0-1.0); MONOCYTES % (AUTO) 15 % (0-12); NEUTROPHILS # (AUTO) 2.6 10^3/uL (1.8-7.8); NEUTROPHILS % (AUTO) 66 % (42-75); PLATELET COUNT 142 10^3/uL (130-400)
[2021-02-01 08:22] LABS: POTASSIUM 3.6 MMOL/L (3.6-5.0)
[2021-02-01 08:23] LABS: CALCIUM 8.8 MG/DL (8.5-10.1)
[2021-02-01 08:27] LABS: CREATININE SERUM 0.75 MG/DL (0.60-1.30)
[2021-02-01] MEDS ORDERED: POTASSIUM CHLORIDE INJ 20 MEQ in D5 NS 1000 ML IV SOLUTION 1,000 ML IV SCH (10:00)
[2021-02-01] MEDS: LEVETIRACETAM 1,000 MG/NS 100 ML IVPB IV SCH ×4 (10:05→19:04)
--- NOTE | 2021-02-01 10:42 | Tele-ICU Progress Note ---
Subjective Date Seen by a Provider: Feb 01, 2021 Time Seen by a Provider: 08:45 Subjective/Events-last exam This virtual visit was conducted using real time audio/video. Thank you for asking us to see this patient for critical care services due to recurrent seizures x 4 off meds, UTI and low K.. HPC: Recent events: desaturation with sleep, possible undiagnosed sleep apnea. PMH:HL, brain tumor, RA, HL, depression, possible sleep apnea. PE: Poorly responsive. VSS O2 sat 97% on 4 LPM w nasal trumpet HEENT: No obvious masses, adenopathy or JVD. Chest: clear to auscultation. CV: RRR S1 S2 No murmur or added sounds. Abd: Non-tender. Bowel sounds Y. : Unremarkable. Sanchez Y. 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 Extremities: No edema. Capillary refill < 3 seconds. Skin: unremarkable. Results: Elevated BUN 28. Decreased K 2.9. A/P: Chronically ill with multiple problems. Family meeting with hospicein AM. Available chart/ vitals / labs /images reviewed. Video assessment done using teleICU camera, rest of exam as per RN. Respiratory: Continue present management with NC 4 LPM. Monitor for increasing oxygenation needs. Critical Care: critically ill patient. K replaced. Discussed with RN Whitney. Asked RN to reach out to eICU if any questions or concerns later. Time spent with patient/coordination of care with other health professionals (mins): Sepsis Event Evaluation Height, Weight, BMI Height: 5'5.00" Weight: 106lbs. 11.2oz. 48.774067iu; BMI Method:Stated Exam Exam Patient acknowledged, consented, and participated in this virtual visit which was conducted using real time audio/video Vital Signs Date Time Temp Pulse Resp B/P (MAP) Pulse Ox O2 Delivery O2 Flow Rate FiO2 02/01/21 08:00 107 24 150/72 (98) 100 OxyMask 4.00 02/01/21 07:57 37.5 02/01/21 07:00 109 02/01/21 06:16 OxyMask 4.00 02/01/21 06:00 118 25 163/92 (115) 100 OxyMask 4.00 02/01/21 05:35 124 02/01/21 05:07 36.8 124 20 158/67 (91) 100 OxyMask 5.00 02/01/21 02:03 36.8 151 22 122/75 (91) 100 OxyMask 15.00 02/01/21 01:02 OxyMask 15.00 I & O 02/01/21 07:00 Intake Total 1190 ml Balance 1190 ml Height & Weight Height: 5'5.00" Weight: 106lbs. 11.2oz. 48.664307yn; BMI Method:Stated General Appearance: Moderate Distress (restless) HEENT: PERRL/EOMI Neck: Non Tender, Supple Respiratory: Chest Non Tender, Lungs Clear, Normal Breath Sounds Cardiovascular: Regular Rate, Rhythm Capillary Refill: Less Than 3 Seconds Gastrointestinal: soft Extremity: Non Tender, No Calf Tenderness Neurologic/Psychiatric: Disoriented (nonverbal, does not follow directions) Skin: Warm/Dry Results Lab Laboratory Tests 02/01/21 01:09 02/01/21 08:01 Assessment/Plan Assessment/Plan See free text. Time spent on discussion(mins): 0 YESICA GOMEZ MD Feb 01, 2021 10:42
[2021-02-01] MEDS: D5 NS W/KCL 20 MEQ/L 1,000 ML IV SCH ×2 (11:01→20:31)
--- NOTE | 2021-02-01 13:06 | Diagnostic Imaging Report ---
PROCEDURE: CT head wo r/o stroke. TECHNIQUE: Multiple contiguous axial images were obtained through the brain without the use of intravenous contrast. Auto Exposure Controls were utilized during the CT exam to meet ALARA standards for radiation dose reduction. INDICATION: Stroke. Altered mental status. Minimally responsive. COMPARISON: CT head without contrast 10/20/2019. FINDINGS: Moderate generalized cerebral and cerebellar parenchymal volume loss. Moderate leukoaraiosis. 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 No CT evidence of an acute territorial infarction. No intracranial hemorrhage, mass effect, hydrocephalus or extra-axial fluid collections. Intracranial vascular calcifications. No fractures. Visualized paranasal sinuses and mastoids are clear. IMPRESSION: No acute intracranial CT findings. Chronic findings as above. Dictated by: Dictated on workstation # [id number]
[2021-02-01] MEDS: cefTRIAXone 1,000 MG/SWFI 10 ML IV PUSH IV SCH ×2 (22:26)
[2021-02-02] VITALS (12 sets, daily range): BP systolic 100–154; BP diastolic 52–81
[2021-02-02] MEDS: LEVETIRACETAM 1,000 MG/NS 100 ML IVPB IV SCH ×6 (02:07→18:44)
[2021-02-02] MEDS: D5 NS W/KCL 20 MEQ/L 1,000 ML IV SCH ×3 (02:48→23:17)
[2021-02-02 03:02] LABS: BASOPHILS % (AUTO) 0 % (0-10); EOSINOPHILS % (AUTO) 0 % (0-10); HEMATOCRIT 34 % (35-52); HEMOGLOBIN 10.9 g/dL (11.5-16.0); LYMPHOCYTES # (AUTO) 0.8 10^3/uL (1.0-4.0); LYMPHOCYTES % (AUTO) 30 % (12-44); MEAN CORPUSCULAR HEMOGLOBIN 30 pg (25-34); MEAN CORPUSCULAR HGB CONC 32 g/dL (32-36); MEAN CORPUSCULAR VOLUME 93 fL (80-99); MEAN PLATELET VOLUME 9.5 fL (9.0-12.2); MONOCYTES # (AUTO) 0.6 10^3/uL (0.0-1.0); MONOCYTES % (AUTO) 24 % (0-12); NEUTROPHILS # (AUTO) 1.1 10^3/uL (1.8-7.8); NEUTROPHILS % (AUTO) 45 % (42-75); PLATELET COUNT 130 10^3/uL (130-400); WHITE BLOOD COUNT 2.5 10^3/uL (4.3-11.0)
[2021-02-02 03:14] LABS: POTASSIUM 3.6 MMOL/L (3.6-5.0)
[2021-02-02 03:16] LABS: CALCIUM 8.6 MG/DL (8.5-10.1)
[2021-02-02 03:20] LABS: CREATININE SERUM 0.77 MG/DL (0.60-1.30)
[2021-02-02 03:27] LABS: LYMPHOCYTES % (MANUAL) 38 %; MONOCYTES % (MANUAL) 18 %; NEUTROPHILS % (MANUAL) 44 %; RBC MORPH NORMAL
--- NOTE | 2021-02-02 08:30 | Progress Note ---
Subjective Subjective Date Seen by Provider: Feb 02, 2021 Time Seen by Provider: 09:00 PT IS MINIMALLY RESPONSIVE VERBALLY. PT IS GROGGY AND UNCERTAIN TO WHY SHE IS IN THE HOSPITAL. PT'S SON JAZMIN IS AT BEDSIDE AND REPORTS THAT SHE HAD NOT BEEN EATING OR DRINKING WELL FOR A FEW DAYS, THEY WERE PLANNING ON PURSUING HOSPICE FOR HER DUE TO HER PROGRESSIVE DECLINE AND THEN SHE HAD A FEW BIG SEIZURES WHICH LED THEM TO SEEKING HELP FROM THE EMS WITH TRANSPORT TO THE HOSPITAL. Review of Systems ROS Unable to Obtain: altered mental status General: Fatigue, Malaise Pulmonary: No Dyspnea, No Cough Gastrointestinal: No: Nausea Neurological: Weakness, Confusion (INTERMITTNET), Other (SIEZURES HAVE STOPPED) Objective Exam Vital Signs Vital Signs Date Time Temp Pulse Resp B/P (MAP) Pulse Ox O2 Delivery O2 Flow Rate FiO2 02/02/21 08:00 36.2 02/02/21 06:00 83 21 129/59 (82) 100 Room Air 02/02/21 05:00 89 23 114/58 (76) 100 Room Air 02/02/21 04:00 92 22 110/54 (72) 100 Room Air 02/02/21 03:00 99 17 128/63 (84) 99 Room Air 02/02/21 02:00 90 24 105/56 (72) 100 Room Air 02/02/21 01:00 90 02/02/21 01:00 90 24 100/52 (68) 99 Room Air 02/02/21 00:00 86 31 124/66 (85) 99 Room Air 02/01/21 23:00 90 22 85/45 (58) 99 Room Air 02/01/21 22:00 93 28 114/63 (80) 97 Room Air 02/01/21 21:00 87 18 125/65 (85) 98 Room Air 02/01/21 20:00 97 Room Air 02/01/21 20:00 87 24 89/48 (62) 98 Room Air 02/01/21 19:36 36.0 02/01/21 19:00 93 02/01/21 19:00 88 21 110/59 (76) 98 Room Air 02/01/21 18:51 Room Air 0.00 02/01/21 16:43 35.9 02/01/21 16:00 90 26 103/60 (74) 100 OxyMask 4.00 02/01/21 13:00 91 02/01/21 11:57 37.5 98 24 142/73 (96) 100 OxyMask 4.00 I & O 02/02/21 07:00 Intake Total 1230 ml Output Total 2075 ml Balance -845 ml General Appearance: No Apparent Distress, Thin HEENT: PERRL/EOMI, Pharynx Normal Neck: Full Range of Motion, Non Tender, Supple Respiratory: Chest Non Tender, Lungs Clear, Normal Breath Sounds, No Accessory Muscle Use, No Respiratory Distress Cardiovascular: Regular Rate, Rhythm Gastrointestinal: Normal Bowel Sounds, No Organomegaly, No Pulsatile Mass, Non Tender, Soft Rectal: Deferred Extremity: Normal Capillary Refill, Non Tender, No Calf Tenderness, No Pedal Edema Neurologic/Psychiatric: Other (AROUSABLE TO VOICE AND TOUCH WITH MINIMAL VERBAL RESPONSES) Skin: Normal Color, Warm/Dry Results Lab Laboratory Tests 02/02/21 02:43: White Blood Count 2.5L, Red Blood Count 3.64L, Hemoglobin 10.9L, Hematocrit 34L, Mean Corpuscular Volume 93, Mean Corpuscular Hemoglobin 30, Mean Corpuscular Hemoglobin Concent 32, Red Cell Distribution Width 12.4, Platelet Count 130, Annia n Platelet Volume 9.5, Immature Granulocyte % (Auto) 0, Neutrophils (%) (Auto) 45, Lymphocytes (%) (Auto) 30, Monocytes (%) (Auto) 24H, Eosinophils (%) (Auto) 0, Basophils (%) (Auto) 0, Neutrophils # (Auto) 1.1L, Lymphocytes # (Auto) 0.8L, Monocytes # (Auto) 0.6, Eosinophils # (Auto) 0.0, Basophils # (Auto) 0.0, Immature Granulocyte # (Auto) 0.0, Neutrophils % (Manual) 44, Lymphocytes % (Manual) 38, Monocytes % (Manual) 18, Blood Morphology Comment NORMAL, Sodium Level 137, Potassium Level 3.6, Chloride Level 104, Carbon Dioxide Level 24, Anion Gap 9, Blood Urea Nitrogen 14, Creatinine 0.77, Estimat Glomerular Filtration Rate 73, BUN/Creatinine Ratio 18, Glucose Level 88, Calcium Level 8.6 Microbiology 02/01/21 Urine Culture - Preliminary, Resulted Gram Negative Alex Proteus Group Assessment/Plan Assessment/Plan Admission Dx UNCONTROLLED SEIZURES URINARY TRACT INFECTION CHRONIC NEUTROPENIA CHRONIC ANEMIA ANOREXIA SEVERELY UNDERWEIGHT POST-CHOLECYSTECTOMY DIARRHEA Assessment and Plan UNCONTROLLED SEIZURES URINARY TRACT INFECTION CHRONIC NEUTROPENIA CHRONIC ANEMIA ANOREXIA SEVERELY UNDERWEIGHT POST-CHOLECYSTECTOMY DIARRHEA UNCONTROLLED SEIZURES - PT ON PRN ATIVAN AND WILL REVIEW HER HOME REGIMEN URINARY TRACT INFECTION - PT ON IV ANTIBIOTICS, MONITOR SYMPTOMS. CHRONIC NEUTROPENIA DUE TO ANTI-SEIZURE MEDICATION - PHENYTOIN - CHRONIC ANEMIA - ANEMIA OF CHRONIC DISEASE, SUPPORTIVE CARE ONLY AT THIS TIME. ANOREXIA WITH PT SEVERELY UNDERWEIGHT - BMI OF AROUND 14 - SELF RESTRICTION FOR YEARS WITH POOR APPETITE, DESPITE TRIAL OF MEDICATIONS FOR PT TO GAIN WEIGHT. POST-CHOLECYSTECTOMY DIARRHEA - AT THIS TIME, SUPPORTIVE CARE, MONITOR OUTPUT. PT IS STILL INTERESTED IN HOSPICE IS FAMILY - WILL CONTACT [facility] FOR PT TO BE DISCHARGED TO HOME ON HOSPICE. MICHAEL LYNNE MD Feb 02, 2021 08:30
[2021-02-02] MEDS ORDERED: DICY10CA12 PO (15:44)
[2021-02-02] MEDS ORDERED: FAMO20TA5 PO (15:44)
[2021-02-02] MEDS ORDERED: PHEN100C11 PO ×2 (15:44)
[2021-02-02] MEDS ORDERED: ACET-2267 PO (15:45)
[2021-02-02] MEDS: cefTRIAXone 1,000 MG/SWFI 10 ML IV PUSH IV SCH ×2 (22:11)
[2021-02-03] VITALS: BP 160/82
[2021-02-03] MEDS: LEVETIRACETAM 1,000 MG/NS 100 ML IVPB IV SCH ×4 (02:02→09:20)
[2021-02-03 04:00] VITALS: BP 146/74
[2021-02-03 07:54] VITALS: BP 158/80
--- NOTE | 2021-02-03 09:18 | Discharge Summary ---
Diagnosis/Chief Complaint Date of Admission Feb 01, 2021 at 02:15 Date of Discharge Discharge Summary Discharge Physical Examination Allergies: Coded Allergies: No Known Drug Allergies (Unverified , 04/10/18) Vitals & I&Os Vital Signs Date Time Temp Pulse Resp B/P (MAP) Pulse Ox O2 Delivery O2 Flow Rate FiO2 02/03/21 07:54 36.1 97 18 158/80 (106) 98 Room Air 02/01/21 18:51 0.00 Discharge Instructions to patient/family Please see electronic discharge instructions given to patient. Discharge Medications Reviewed and agree with Discharge Medication list on patient's Discharge Instruction sheet MICHAEL LYNNE MD Feb 03, 2021 09:18
[2021-02-03] MEDS: D5 NS W/KCL 20 MEQ/L 1,000 ML IV SCH (09:20)
[2021-02-03] MEDS ORDERED: LACT1CAP87 PO (09:21)
[2021-02-03] MEDS ORDERED: CEPH500T PO (09:21)
[2021-02-03] MEDS ORDERED: LORA2ORA PO (09:24)
--- NOTE | 2021-02-03 09:26 | Discharge Inst-Simple/Standard ---
Discharge Inst-Standard Reconcile Patient Problems Problems Reviewed?: Yes Discharge Medications New, Converted or Re-Newed RX: Transmitted to Pharmacy Patient Instructions/Follow Up Plan of Care/Instructions/FU: 1 WK WITH [facility] IF ABLE - MAY BE ABLE TO DO TELEHEALTH APPT Activity as Tolerated: Yes Discharge Diet: Regular Diet Health Concerns: SEIZURE DISORDER UNDERWEIGHT RECURRENT UTI Return to [facility] For: CONTACT HOSPICE PRIOR TO RETURNING TO THE HOSPITAL Lab results: Laboratory Tests Test 02/02/21 16:42 Range/Units Albumin 3.0 L 3.2-4.5 GM/DL My orders: Active Scripts Active Lorazepam Intensol (Lorazepam) 2 Mg/1 Ml Oral.conc 2 Mg PO Q2H PRN Acidophilus Lactobacilli (Lactobacillus Acidophilus) 1 Each Capsule 1 Each PO TID Cephalexin 500 Mg Tablet 500 Mg PO TID Reported Tylenol Extra Strength (Acetaminophen) 500 Mg Tablet 500 Mg PO Q4H PRN Phenytoin Sodium Extended 100 Mg Capsule 100 Mg PO 1400 Dicyclomine HCl 10 Mg Capsule 10 Mg PO BID PRN Famotidine 20 Mg Tablet 20 Mg PO BID PRN Lamotrigine 150 Mg Tablet 150 Mg PO HS Lamotrigine 100 Mg Tablet 100 Mg PO DAILY MICHAEL LYNNE MD Feb 03, 2021 09:23
[2021-02-03 11:34] VITALS: BP 152/73
[2021-02-03] MEDS ORDERED: PHENYTOIN 100 MG (DILANTIN) CAP PO SCH ×2 (14:00→21:00)
[2021-02-03] MEDS ORDERED: lamoTRIgine 25 MG (LaMICtal) TAB PO SCH (21:00)
== END 2021-02-03 12:20 | disposition hospice, home (50) | DRG 100 ==
LOC: EDUNIT# 01:02 → ER 01:03 → ICU 02:15 → 4TH 02-02 13:03
PROVIDERS: ADMIT Family Medicine; ATTEND Family Medicine
DX: G40.911 Epilepsy, unspecified, intractable, with status epilepticus (principal); J96.01 Acute respiratory failure with hypoxia; N39.0 Urinary tract infection, site not specified; Z68.1 Body mass index [BMI] 19.9 or less, adult; E86.0 Dehydration; E87.6 Hypokalemia; Z91.19 Patient's noncompliance with other medical treatment and regimen; Z66 Do not resuscitate; Z20.822 Contact with and (suspected) exposure to COVID-19; E78.00 Pure hypercholesterolemia, unspecified; M19.91 Primary osteoarthritis, unspecified site; M06.9 Rheumatoid arthritis, unspecified; H54.7 Unspecified visual loss; F32.9 Major depressive disorder, single episode, unspecified; D70.9 Neutropenia, unspecified; D64.9 Anemia, unspecified; R63.0 Anorexia; K91.5 Postcholecystectomy syndrome; Z79.82 Long term (current) use of aspirin; Z82.0 Family history of epilepsy and other diseases of the nervous system
CPT/HCPCS: 36415; 51702; 53620; 70450; 71045; 80048; 80053; 80185; 81000; 82040; 82150; 82550; 82553; 83690; 83735; 83874; 85007; 85025; 85027; 87077; 87088; 87186; 87636; 93005; 93041